=== PATIENT | female | born 1985 | race African-American/Black ===

== ENCOUNTER 2016-03-12 17:18 | Emergency (ER) | payer OTHER ==
--- NOTE | 2016-03-12 17:50 | ER Document Report ---
ED Cardiac - General Chief Complaint: Chest Tightness Stated Complaint: CHEST TIGHTNESS Notes: The patient is a 30-year-old female, past medical history anxiety, asthma, chronic back pain, presents with 3 days of feeling anxious, with some chest tightness and wheezing. She received a epidural spinal injection 3 days ago for her chronic back pain. After the injection she started feeling mildly nauseous and anxious. She took 0.5 mg of her Xanax that her psychiatrist recently started her on with mild relief of her symptoms. She is requesting additional doses of benzos. She has not tried her albuterol and her last asthma exacerbation was several months ago. She denies cough, fevers, leg weakness, leg numbness, midline back pain, vomiting, current chest pain, leg swelling, hemoptysis, OCP use, difficulty urinating or difficulty stooling. TRAVEL OUTSIDE OF THE [place] IN LAST 30 DAYS: No - Related Data Allergies/Adverse Reactions: amoxicillin [Amoxicillin] Allergy (Verified 12/02/14 10:29) Penicillins Allergy (Verified 12/02/14 10:29) Past Medical History - General Information source: Patient - Social History Smoking Status: Unknown if Ever Smoked Family History: Reviewed & Not Pertinent - Past Medical History Cardiac Medical History: Denies: Hx Coronary Artery Disease, Hx Heart Attack, Hx Hypertension Pulmonary Medical History: Reports: Hx Asthma, Hx Sleep Apnea Denies: Hx Bronchitis, Hx COPD, Hx Pneumonia Neurological Medical History: Denies: Hx Cerebrovascular Accident, Hx Seizures Endocrine Medical History: Denies: Hx Diabetes Mellitus Type 1, Hx Diabetes Mellitus Type 2 Renal/ Medical History: Reports: Hx Ovarian Cysts GI Medical History: Reports: Hx Gastroesophageal Reflux Disease Musculoskeltal Medical History: Denies Hx Arthritis Psychiatric Medical History: Reports: Hx Attention Deficit Hyperactivity Disorder, Hx Depression Past Surgical History: Reports: Hx Adenoidectomy, Hx Gynecologic Surgery - R ovarian cyst 2009, Hx Tonsillectomy - Immunizations Hx Diphtheria, Pertussis, Tetanus Vaccination: Yes - 06/2011 Review of Systems - Review of Systems Notes: REVIEW OF SYSTEMS: CONSTITUTIONAL: -fevers, -chills EENT: -eye pain, -difficulty swallowing, +nasal congestion CARDIOVASCULAR: +chest tightness, -syncope. RESPIRATORY: -cough, +SOB, +wheezingSOB GASTROINTESTINAL: -abdominal pain, - nausea, -vomiting, -diarrhea GENITOURINARY: -dysuria, -hematuria MUSCULOSKELETAL: -back pain, -neck pain SKIN: -rash or skin lesions. HEMATOLOGIC: -easy bruising or bleeding. LYMPHATIC: -swollen, enlarged glands. NEUROLOGICAL: -altered mental status or loss of consciousness, -headache, - neurologic symptoms PSYCHIATRIC: +anxiety, -depression. ALL OTHER SYSTEMS REVIEWED AND NEGATIVE. Physical Exam - Vital signs Vitals: Temp Pulse Resp BP Pulse Ox 98.0 F 107 H 20 147/83 H 97 03/12/16 17:33 03/12/16 17:33 03/12/16 17:33 03/12/16 17:33 03/12/16 17:33 - Notes Notes: PHYSICAL EXAMINATION: GENERAL: Well-appearing, well-nourished and in no acute distress. HEAD: Atraumatic, normocephalic. EYES: Pupils equal round and reactive to light, extraocular movements intact, sclera anicteric, conjunctiva are normal. ENT: nares patent, oropharynx clear without exudates. Moist mucous membranes. NECK: Normal range of motion, supple without lymphadenopathy LUNGS: No increased work of breathing. Mild end-expiratory wheezing. HEART: Regular rate and rhythm without murmurs ABDOMEN: Soft, nontender, normoactive bowel sounds. No guarding, no rebound. No masses appreciated. EXTREMITIES: Normal range of motion, no pitting or edema. No cyanosis. NEUROLOGICAL: Cranial nerves grossly intact. Normal speech, normal gait. Normal sensory, motor, and reflex exams. PSYCH: Anxious SKIN: Warm, Dry, normal turgor, no rashes or lesions noted. Course - Re-evaluation Re-evalutation: Will treat her mild asthma exacerbation with 3 DuoNeb and steroids. Patient has had multiple visits to the emergency room for anxiety. She has been tachycardic multiple times in the past and had a negative CTA for PE. PE unlikely at this time. No evidence of epidural abscess or infection after her injection 3 days ago. No neurologic symptoms and full strength in bilateral lower extremities. After DuoNebs and steroids, patient's chest tightness and wheezing have resolved. Repeat exam shows that wheezing has resolved and that her heart rate has decreased to 98. Instructed patient that she must follow-up with her psychiatrist for dose adjustments of her Xanax and that this would not be done in the emergency room. - Vital Signs Vital signs: Temp Pulse Resp BP Pulse Ox 98.0 F 107 H 24 H 147/83 H 97 03/12/16 17:33 03/12/16 17:33 03/12/16 17:51 03/12/16 17:33 03/12/16 17:33 - EKG Interpretation by Me EKG shows normal: Sinus rhythm, [place], Intervals, QRS Complexes, ST-T Waves Rate: Tachycardia - 109 Discharge - Discharge Clinical Impression: Asthma exacerbation, Anxiety Condition: Good Disposition: HOME, SELF-CARE Additional Instructions: ASTHMA: You have been diagnosed as having asthma. This is a condition where there is episodic tightness in the bronchial tubes. Allergies, infections, and polluted or cold air may be contributing factors. Emergency treatment of a severe asthma attack may include adrenaline shots , or bronchodilator aerosol. You may feel lightheaded, have a decreased exercise tolerance and a rapid pulse for an hour or two. Rest and get plenty of fluids. Home treatment of asthma requires bronchodilator drugs. These can be administered by injection, inhalation, or by mouth. Antibiotics and corticosteroids may be required for some patients. You should avoid chemical fumes, dusts, pollens, and exercising in very cold or dry air. If you smoke, stop!! If you develop a fever, increased wheezing, chest pain, or severe shortness of breath, you should contact the doctor immediately. STEROID MEDICATION: You have been given an injection of or oral medicine of the cortisone/ steroid class. This medication is used to control inflammation or allergy. Osvaldo t is usually only given for a short period of time, until the acute process subsides. There are usually no side effects from short-term use of cortisone-like medications. Some persons feel an increased sense of well-being and are not sleepy at bedtime. Long-term use of cortisone medications is best avoided, unless required for a severe condition. If your condition does not remit, or relapses after the course of corticosteroid medication, you should consult your physician. INHALED BRONCHODILATORS: You have received treatment(s) of and/or prescription for an inhaled bronchodilator -- a medication which stimulates the airways in the lung to dilate. This improves the flow of air in asthma, bronchitis, and emphysema. These medicines have some similarity to adrenaline, and can cause similar side effects: shakiness, racing heart, and a sense of nervousness. These side effects decrease with time. Contact your doctor if these side effects are severe. Do not over-use the medicine. Too-frequent use of the inhaler may make it ineffective. Call your doctor if the inhaler is not controlling your symptoms at the prescribed doses. SMOKING: If you smoke, you should stop smoking. The tar and chemicals in cigarette smoke are harmful. Smoking has been shown to cause: emphysema chronic bronchitis lung cancer mouth and throat cancer stomach and pancreas cancer premature aging defects In addition, smoking increases ear and lung infections in children of smokers. USE OF ACETAMINOPHEN: Acetaminophen may be taken for pain relief or fever control. It's much safer than aspirin, offering a wider range of "safe" dosages. It is safe during . Some brand names are Tylenol, Panadol, Datril, Anacin 3, Tempra, and Liquiprin. Acetaminophen can be repeated every four hours. The following are maximum recommended dosages: USE OF ACETAMINOPHEN (Tylenol): Acetaminophen may be taken for pain relief or fever control. It's much safer than aspirin, offering a wider range of "safe" dosages. It is safe during . Some brand names are Tylenol, Panadol, Datril, Anacin 3, Tempra, and Liquiprin. Acetaminophen can be repeated every four hours. The following are maximum recommended dosages: WEIGHT Dose Drops Elixir Chewable( 80mg) (LBS.) drprs=droppers tsp=teaspoon 6 40 mg 0.4 ml (1/2) 6-11 80 mg 0.8 ml (full) tsp 1 tab 12-16 120 mg 1 1/2 drprs 3/4 tsp 1 1/2 tabs 17-23 160 mg 2 drprs 1 tsp 2 tabs 24-30 240 mg 3 drprs 1 1/2 tsp 3 tabs 30-35 320 mg 2 tsp 4 tabs 36-41 360 mg 2 1/4 tsp 4 1/2 tabs 42-47 400 mg 2 1/2 tsp 5 tabs 48-53 480 mg 3 tsp 6 tabs 54-59 520 mg 3 1/4 tsp 6 1/2 tabs 60-64 560 mg 3 1/2 tsp 7 tabs 65-70 600 mg 3 3/4 tsp 7 1/2 tabs 71-76 640 mg 4 tsp 8 tabs 77-82 720 mg 4 1/2 tsp 9 tabs 83-88 800 mg 5 tsp 10 tabs >89 pounds or adults 650 mg to 900 mg Acetaminophen can be repeated every four hours. Maximum dose not to exceed 4000 mg a day. These maximum recommended dosages are slightly higher than the dosages written on the product container, but these dosages are very safe and below the toxic dosage for acetaminophen. FOLLOW-UP CARE: If you have been referred to a physician for follow-up care, call the physician s office for an appointment as you were instructed or within the next two days. If you experience worsening or a significant change in your symptoms, notify the physician immediately or return to the Emergency Department at any time for re-evaluation. Anxiety The physician feels that some of your health problems are being caused by anxiety. Anxiety affects your health in many ways. Anxiety alone can cause palpitations, sweats, chest pains, abdominal pains, shortness of breath, and headaches. It contributes to ulcer disease, high blood pressure, irritable bowel syndrome, and has been shown to cause flare-ups of many other diseases. Anxiety is not a simple disorder to treat. If the anxiety is due to recent life stresses, you may simply need time to "work through" the changes. If the anxiety is due to an underlying unhappiness with yourself or due to psychiatric disturbance, professional help will be needed. Your physician can refer you for further help if needed. Anti-anxiety medication is occasionally given if the stress is acute or if you are having trouble sleeping. Chronic or frequent use of these medications is not a good idea because the body becomes reliant on it, preventing you from dealing with life's normal stresses. Only your psychiatrist should be prescribing anti-anxiety medications. Prescriptions: Albuterol Sulfate [Proair HFA Inhalation Aerosol 8.5 gm MDI] 2 puff IH Q4H PRN # 1 mdi PRN Reason: Prednisone 50 mg PO DAILY #4 tablet Forms: Return to Work Referrals: FINA JOSEPH MD [Primary Care Provider] - Follow up as needed
[2016-03-12] MEDS ORDERED: PREDNISONE 20 MG TABLET PO ONE (18:02)
[2016-03-12] MEDS ORDERED: IPRATROPIUM/ALBUTEROL 0.5-2.5 MG/3 ML AMPUL NEB ONE (18:03)
[2016-03-12 19:29] VITALS: BP 142/78
--- NOTE | 2016-03-13 10:14 | EKG REPORT ---
SEVERITY:- OTHERWISE NORMAL ECG - SINUS TACHYCARDIA : Confirmed by: Aleah Arndt MD 13-Mar-2016 10:13:57
== END 2016-03-12 19:20 | disposition home or self-care (01) ==
LOC: ER 17:18
DX: J45.901 Unspecified asthma with (acute) exacerbation (principal); R07.9 Chest pain, unspecified; F41.9 Anxiety disorder, unspecified; Z88.0 Allergy status to penicillin
CPT/HCPCS: 93005; 94640; 99284; 93010; J7512; J7620

== ENCOUNTER 2016-03-19 12:22 | Emergency (ER) | payer SELFPAY ==
[2016-03-19] MEDS ORDERED: ASPIRIN 81 MG TABLET, CHEWABLE PO ONE (12:38)
--- NOTE | 2016-03-19 12:41 | ER Document Report ---
ED Medical Screen (RME) - General Chief Complaint: Chest Pain Stated Complaint: CHEST PAIN Time seen by provider: 12:37 Mode of Arrival: Ambulatory Information source: Patient Notes: 30-year-old nonsmoker female complaining of right-sided chest pain that started yesterday. She felt short of breath and had to be up all night because of the shortness [place] breath[place] [id number]. TRAVEL OUTSIDE OF THE [place] IN LAST 30 DAYS: No - Related Data Allergies/Adverse Reactions: amoxicillin [Amoxicillin] Allergy (Verified 03/19/16 12:35) Penicillins Allergy (Verified 03/19/16 12:35) Past Medical History - Past Medical History Cardiac Medical History: Denies: Hx Coronary Artery Disease, Hx Heart Attack, Hx Hypertension Pulmonary Medical History: Reports: Hx Asthma, Hx Sleep Apnea Denies: Hx Bronchitis, Hx COPD, Hx Pneumonia Neurological Medical History: Denies: Hx Cerebrovascular Accident, Hx Seizures Endocrine Medical History: Denies: Hx Diabetes Mellitus Type 1, Hx Diabetes Mellitus Type 2 Renal/ Medical History: Reports: Hx Ovarian Cysts GI Medical History: Reports: Hx Gastroesophageal Reflux Disease Musculoskeltal Medical History: Denies Hx Arthritis Psychiatric Medical History: Reports: Hx Attention Deficit Hyperactivity Disorder, Hx Depression Past Surgical History: Reports: Hx Adenoidectomy, Hx Gynecologic Surgery - R ovarian cyst 2009, Hx Tonsillectomy - Immunizations Hx Diphtheria, Pertussis, Tetanus Vaccination: Yes - 06/2011
[2016-03-19 13:36] LABS: ABSOLUTE BASOPHILS # (AUTO) 0.1 10^3/uL (0.0-0.2); ABSOLUTE EOSINOPHILS # (AUTO) 0.1 10^3/uL (0.0-0.6); ABSOLUTE LYMPHOCYTES (AUTO) 3.7 10^3/uL (0.5-4.7); ABSOLUTE MONOCYTES (AUTO) 0.7 10^3/uL (0.1-1.4); ABSOLUTE NEUT (AUTO) 9.6 10^3/uL (1.7-8.2); BASOPHILS % (AUTO) 0.6 % (0-2); EOSINOPHILS % (AUTO) 0.9 % (0-6); HEMATOCRIT 36.4 % (36.0-47.0); HEMOGLOBIN 11.5 g/dL (12.0-15.5); HGB HCT DIFFERENCE -1.9; LYMPHOCYTES % (AUTO) 26.1 % (13-45); MEAN CORPUSCULAR HEMOGLOBIN 28.8 pg (27.0-33.4); MEAN CORPUSCULAR HGB CONC 31.5 g/dL (32.0-36.0); MEAN CORPUSCULAR VOLUME 92 fl (80-97); RED BLOOD COUNT 3.98 10^6/uL (3.72-5.28); RED CELL DISTRIBUTION WIDTH 15.4 % (11.5-14.0); SEGMENTED NEUTROPHILS % (AUTO) 67.4 % (42-78); WHITE BLOOD COUNT 14.3 10^3/uL (4.0-10.5)
[2016-03-19 13:46] LABS: ALANINE AMINOTRANSFERASE 35 U/L (9-52); ALBUMIN 3.5 g/dL (3.5-5.0); ALKALINE PHOSPHATASE 147 U/L (38-126); ANION GAP 14 (5-19); ASPARTATE AMINO TRANSFERASE 26 U/L (14-36); BILIRUBIN,TOTAL 0.5 mg/dL (0.2-1.3); BLOOD UREA NITROGEN 15 mg/dL (7-20); CALCIUM 9.6 mg/dL (8.4-10.2); CARBON DIOXIDE 28 mmol/L (22-30); CHLORIDE 99 mmol/L (98-107); CREATINE KINASE 42 U/L (30-135); CREATININE RESULT 0.86 mg/dL (0.52-1.25); GLUCOSE 99 mg/dL (75-110); POTASSIUM 3.9 mmol/L (3.6-5.0); TOTAL PROTEIN 7.6 g/dL (6.3-8.2)
[2016-03-19 13:56] LABS: CREATINE KINASE MB 0.26 ng/mL (<4.55)
[2016-03-19 14:00] LABS: TROPONIN I < 0.012 ng/mL
--- NOTE | 2016-03-19 16:10 | ER Document Report ---
ED General - General Chief Complaint: Chest Pain Stated Complaint: CHEST PAIN Mode of Arrival: Ambulatory TRAVEL OUTSIDE OF THE [place] IN LAST 30 DAYS: No - HPI Patient complains to provider of: chest pain shortness of breath Notes: Patient with a recent evaluation for chest pain shortness breath. Patient coming in right upper chest wall pain and shortness of breath. Patient has a history of asthma recently finished a course of steroids. Patient denies any recent travel denies any nausea vomiting fevers or chills. Denies any productive cough. Patient states she has been compliant with her medication has been taking her inhaler. - Related Data Allergies/Adverse Reactions: amoxicillin [Amoxicillin] Allergy (Verified 03/19/16 12:35) Penicillins Allergy (Verified 03/19/16 12:35) Past Medical History - General Information source: Patient - Social History Smoking Status: Never Smoker Chew tobacco use (# tins/day): No Frequency of alcohol use: None Drug Abuse: None Family History: Reviewed & Not Pertinent Patient has suicidal ideation: No Patient has homicidal ideation: No - Past Medical History Cardiac Medical History: Denies: Hx Coronary Artery Disease, Hx Heart Attack, Hx Hypertension Pulmonary Medical History: Reports: Hx Asthma, Hx Sleep Apnea Denies: Hx Bronchitis, Hx COPD, Hx Pneumonia Neurological Medical History: Denies: Hx Cerebrovascular Accident, Hx Seizures Endocrine Medical History: Denies: Hx Diabetes Mellitus Type 1, Hx Diabetes Mellitus Type 2 Renal/ Medical History: Reports: Hx Ovarian Cysts. Denies: Hx Peritoneal Dialysis GI Medical History: Reports: Hx Gastroesophageal Reflux Disease Musculoskeltal Medical History: Denies Hx Arthritis Psychiatric Medical History: Reports: Hx Attention Deficit Hyperactivity Disorder, Hx Depression Past Surgical History: Reports: Hx Adenoidectomy, Hx Gynecologic Surgery - R ovarian cyst 2009, Hx Tonsillectomy - Immunizations Hx Diphtheria, Pertussis, Tetanus Vaccination: Yes - 06/2011 Review of Systems - Review of Systems Constitutional: No symptoms reported EENT: No symptoms reported Cardiovascular: Chest pain - Right chest wall upper Respiratory: Short of breath Gastrointestinal: No symptoms reported Genitourinary: No symptoms reported Female Genitourinary: No symptoms reported Musculoskeletal: No symptoms reported Skin: No symptoms reported Hematologic/Lymphatic: No symptoms reported Neurological/Psychological: No symptoms reported Physical Exam - Vital signs Vitals: Pulse Resp BP Pulse Ox 106 H 24 H 132/79 H 99 03/19/16 12:36 03/19/16 12:36 03/19/16 12:36 03/19/16 12:36 Interpretation: Normal - General General appearance: Appears well, Alert - HEENT Head: Normocephalic, Atraumatic Eyes: Normal Pupils: PERRL - Respiratory Respiratory status: No respiratory distress Chest status: Nontender Breath sounds: Normal Chest palpation: Normal - Cardiovascular Rhythm: Regular Heart sounds: Normal auscultation Murmur: No - Abdominal Inspection: Normal Distension: No distension Bowel sounds: Normal Tenderness: Nontender Organomegaly: No organomegaly - Back Back: Normal, Nontender - Extremities General upper extremity: Normal inspection, Nontender, Normal color, Normal ROM , Normal temperature General lower extremity: Normal inspection, Nontender, Normal color, Normal ROM , Normal temperature, Normal weight bearing. No: Aubree's sign - Neurological Neuro grossly intact: Yes Cognition: Normal Orientation: AAOx4 [place] Coma Scale Eye Opening: Spontaneous [place] Coma Scale Verbal: Oriented [place] Coma Scale Motor: Obeys Commands [place] Coma Scale Total: 15 Speech: Normal Motor strength normal: LUE, RUE, LLE, RLE Sensory: Normal - Psychological Associated symptoms: Normal affect, Normal mood - Skin Skin Temperature: Warm Skin Moisture: Dry Skin Color: Normal Course - Re-evaluation Re-evalutation: 03/19/16 22:30 Chest x-ray d-dimer and lab work EKG showed no critical etiology. Patient will be discharged homeThe patient has atypical chest pain as the patient's chest pain is not suggestive of pulmonary embolus, cardiac ischemia, aortic dissection , or other serious etiology. Given the extremely low risk of these diagnoses further testing and evaluation for these possibilities does not appear to be indicated at this time. The patient has been instructed to return if the symptoms worsen or change in any way. - Vital Signs Vital signs: Temp Pulse Resp BP Pulse Ox 98.4 F 106 H 20 113/59 L 99 03/19/16 16:17 03/19/16 12:36 03/19/16 16:00 03/19/16 16:00 03/19/16 16:00 - Laboratory Result Diagrams: 03/19/16 13:09 03/19/16 13:09 Laboratory results interpreted by me: 03/19/16 03/19/16 13:09 13:09 WBC 14.3 H Hgb 11.5 L MCHC 31.5 L RDW 15.4 H Absolute Neutrophils 9.6 H Alkaline Phosphatase 147 H Discharge - Discharge Clinical Impression: Chest wall pain Dyspnea Qualifiers: Dyspnea type: unspecified Qualified Code(s): R06.00 - Dyspnea, unspecified Condition: Good Disposition: HOME, SELF-CARE Instructions: Asthma ([facility]), Dyspnea, Nonspecific ([facility]), Chest Wall Pain ([facility]) Additional Instructions: Your evaluation today shows no signs of any critical etiology. No signs of cardiac damage no signs of blood clots within your lungs. Chest x-ray shows no signs of infection. Possible mild asthma exacerbation. Please use your inhaler at home 2 puffs every 4 hours for the next 5 days. I would also recommend drinking plenty of water to stay hydrated. He may also use Gatorade. Follow-up with your primary care physician. Prescriptions: Albuterol Sulfate [Proair HFA] 1 - 2 puff IH Q4 PRN #1 inhaler PRN Reason: Referrals: FINA JOSEPH MD [Primary Care Provider] - Follow up in 3-5 days
[2016-03-19 16:12] VITALS: BP 113/59
--- NOTE | 2016-03-19 16:40 | EKG REPORT ---
SEVERITY:- NORMAL ECG - SINUS RHYTHM : Confirmed by: Luis Eduardo Medrano MD 19-Mar-2016 16:39:02
== END 2016-03-19 16:17 | disposition home or self-care (01) ==
LOC: ER 12:22
DX: R07.89 Other chest pain (principal); R06.00 Dyspnea, unspecified; R06.02 Shortness of breath
CPT/HCPCS: 36415; 71010; 80053; 82550; 82553; 84484; 84703; 85025; 85379; 93005; 93010; 99285

== ENCOUNTER 2016-03-20 18:56 | Emergency (ER) | payer SELFPAY ==
--- NOTE | 2016-03-20 19:51 | ER Document Report ---
ED Medical Screen (RME) - General Chief Complaint: Anxiety Stated Complaint: PSYCH PROBLEM Mode of Arrival: Ambulatory Information source: Patient Notes: 30 y/o F presents to ED c/o anxiety, racing thoughts, and palpitations. Reports hx of depression and anxiety and recently began taking Cymbalta again. States had thoughts of "killing" this morning. Denies SI. Calm and cooperative in RME. I have greeted and performed a rapid initial assessment of this patient. A comprehensive ED assessment and evaluation of the patient, analysis of test results and completion of the medical decision making process will be conducted by additional ED providers. TRAVEL OUTSIDE OF THE [place] IN LAST 30 DAYS: No - Related Data Allergies/Adverse Reactions: amoxicillin [Amoxicillin] Allergy (Verified 03/19/16 12:35) Penicillins Allergy (Verified 03/19/16 12:35) Past Medical History - Past Medical History Cardiac Medical History: Denies: Hx Coronary Artery Disease, Hx Heart Attack, Hx Hypertension Pulmonary Medical History: Reports: Hx Asthma, Hx Sleep Apnea Denies: Hx Bronchitis, Hx COPD, Hx Pneumonia Neurological Medical History: Denies: Hx Cerebrovascular Accident, Hx Seizures Endocrine Medical History: Denies: Hx Diabetes Mellitus Type 1, Hx Diabetes Mellitus Type 2 Renal/ Medical History: Reports: Hx Ovarian Cysts. Denies: Hx Peritoneal Dialysis GI Medical History: Reports: Hx Gastroesophageal Reflux Disease Musculoskeltal Medical History: Denies Hx Arthritis Psychiatric Medical History: Reports: Hx Attention Deficit Hyperactivity Disorder, Hx Depression Past Surgical History: Reports: Hx Adenoidectomy, Hx Gynecologic Surgery - R ovarian cyst 2009, Hx Tonsillectomy - Immunizations Hx Diphtheria, Pertussis, Tetanus Vaccination: Yes - 06/2011 Physical Exam - General General appearance: Appears well, Alert In distress: None Doctor's Discharge - Discharge Instructions: Anxiety ([facility])
[2016-03-20 20:09] LABS: ABSOLUTE BASOPHILS # (AUTO) 0.1 10^3/uL (0.0-0.2); ABSOLUTE EOSINOPHILS # (AUTO) 0.1 10^3/uL (0.0-0.6); ABSOLUTE LYMPHOCYTES (AUTO) 3.4 10^3/uL (0.5-4.7); ABSOLUTE MONOCYTES (AUTO) 0.7 10^3/uL (0.1-1.4); ABSOLUTE NEUT (AUTO) 12.5 10^3/uL (1.7-8.2); BASOPHILS % (AUTO) 0.8 % (0-2); EOSINOPHILS % (AUTO) 0.7 % (0-6); HEMATOCRIT 37.8 % (36.0-47.0); HEMOGLOBIN 12.1 g/dL (12.0-15.5); HGB HCT DIFFERENCE -1.5; LYMPHOCYTES % (AUTO) 20.4 % (13-45); MEAN CORPUSCULAR HEMOGLOBIN 28.7 pg (27.0-33.4); MEAN CORPUSCULAR VOLUME 90 fl (80-97); MONOCYTES % (AUTO) 4.1 % (3-13); RED BLOOD COUNT 4.21 10^6/uL (3.72-5.28); RED CELL DISTRIBUTION WIDTH 15.3 % (11.5-14.0); WHITE BLOOD COUNT 16.8 10^3/uL (4.0-10.5)
[2016-03-20 20:22] LABS: ALANINE AMINOTRANSFERASE 41 U/L (9-52); ALBUMIN 4.2 g/dL (3.5-5.0); ALKALINE PHOSPHATASE 157 U/L (38-126); ANION GAP 14 (5-19); ASPARTATE AMINO TRANSFERASE 25 U/L (14-36); BILIRUBIN,TOTAL 0.6 mg/dL (0.2-1.3); BLOOD UREA NITROGEN 11 mg/dL (7-20); CALCIUM 9.8 mg/dL (8.4-10.2); CARBON DIOXIDE 26 mmol/L (22-30); CHLORIDE 101 mmol/L (98-107); GLUCOSE 115 mg/dL (75-110); POTASSIUM 4.2 mmol/L (3.6-5.0); SODIUM 141.3 mmol/L (137-145); TOTAL PROTEIN 8.2 g/dL (6.3-8.2)
[2016-03-20 20:24] LABS: ALCOHOL < 10 mg/dL (NONE DETECTED)
[2016-03-20] MEDS ORDERED: NORMAL SALINE 1000 ML 1,000 ML IV ONE (21:00)
[2016-03-20] MEDS ORDERED: ONDANSETRON HCL INJ/PF 4 MG/2 ML SDV IV ONE (21:00)
[2016-03-20] MEDS ORDERED: PROCHLORPERAZINE EDISYLATE INJ 10 MG/2 ML VIAL IV ONE (21:00)
[2016-03-20] MEDS ORDERED: DIPHENHYDRAMINE HCL 50 MG/ML VIAL IV ONE (21:00)
[2016-03-20 21:20] LABS: APPEARANCE,URINE SLIGHTLY-CLOUDY; BILIRUBIN,URINE NEGATIVE (NEGATIVE); GLUCOSE, URINE NEGATIVE (NEGATIVE); KETONES,URINE NEGATIVE (NEGATIVE); LEUKOCYTE ESTERASE,URINE TRACE (NEGATIVE); NITRITE,URINE NEGATIVE (NEGATIVE); PROTEIN,URINE 30 mg/dL (NEGATIVE); URINE SPECIFIC GRAVITY 1.023
[2016-03-20 21:32] LABS: URINE BARBITURATES SCREEN UNCONFIRMED POSITIVE; URINE METHADONE SCREEN NEGATIVE; URINE PHENCYCLIDINE SCREEN NEGATIVE
--- NOTE | 2016-03-20 22:20 | ER Document Report ---
ED Psych Disorder / Suicide - General Chief Complaint: Psych Problem Stated Complaint: PSYCH PROBLEM Mode of Arrival: Ambulatory Notes: Patient is a 30-year-old female who comes in stating that this morning she woke up with "kill" on her mind. Patient states that she did not feel like hurting herself or anyone else but that is just Going to her head. Patient states that she has not been on Cymbalta for a few months and started taking it again last night. Patient took another dose this morning and symptoms went away. Patient has a history of anxiety and was getting Xanax from her pain management doctor. She ran out recently. Patient states that she is still anxious on and off. Patient is also had a headache on and off. Patient denies any fever, nausea vomiting, photophobia, again, patient does not feel like hurting herself or anyone else at this time. Denies any hallucinations. Patient does not have a counselor currently but plans to go to [facility] in the morning. TRAVEL OUTSIDE OF THE [place] IN LAST 30 DAYS: No - HPI Patient complains to provider of: Other - racing thoughts Onset: Other Onset was: Gradual Quality of pain: Dull - headache - Related Data Allergies/Adverse Reactions: amoxicillin [Amoxicillin] Allergy (Verified 03/19/16 12:35) Penicillins Allergy (Verified 03/19/16 12:35) Past Medical History - General Information source: Patient - Social History Smoking Status: Never Smoker Family History: Reviewed & Not Pertinent Patient has suicidal ideation: No Patient has homicidal ideation: Yes - Racing thoughts - Past Medical History Cardiac Medical History: Denies: Hx Coronary Artery Disease, Hx Heart Attack, Hx Hypertension Pulmonary Medical History: Reports: Hx Asthma, Hx Sleep Apnea Denies: Hx Bronchitis, Hx COPD, Hx Pneumonia Neurological Medical History: Denies: Hx Cerebrovascular Accident, Hx Seizures Endocrine Medical History: Denies: Hx Diabetes Mellitus Type 1, Hx Diabetes Mellitus Type 2 Renal/ Medical History: Reports: Hx Ovarian Cysts. Denies: Hx Peritoneal Dialysis GI Medical History: Reports: Hx Gastroesophageal Reflux Disease Musculoskeltal Medical History: Denies Hx Arthritis Psychiatric Medical History: Reports: Hx Attention Deficit Hyperactivity Disorder, Hx Depression Past Surgical History: Reports: Hx Adenoidectomy, Hx Gynecologic Surgery - R ovarian cyst 2009, Hx Tonsillectomy - Immunizations Hx Diphtheria, Pertussis, Tetanus Vaccination: Yes - 06/2011 Review of Systems - Review of Systems Constitutional: No symptoms reported EENT: No symptoms reported Cardiovascular: No symptoms reported Respiratory: No symptoms reported Gastrointestinal: No symptoms reported Genitourinary: No symptoms reported Female Genitourinary: No symptoms reported Musculoskeletal: No symptoms reported Skin: No symptoms reported Hematologic/Lymphatic: No symptoms reported Neurological/Psychological: See HPI Physical Exam - Vital signs Interpretation: Normal - General General appearance: Appears well, Alert - HEENT Head: Normocephalic, Atraumatic Eyes: Normal Pupils: PERRL - Respiratory Respiratory status: No respiratory distress Chest status: Nontender Breath sounds: Normal Chest palpation: Normal - Cardiovascular Rhythm: Regular Heart sounds: Normal auscultation Murmur: No - Abdominal Inspection: Normal Distension: No distension Bowel sounds: Normal Tenderness: Nontender Organomegaly: No organomegaly - Back Back: Normal, Nontender - Extremities General upper extremity: Normal inspection, Nontender, Normal color, Normal ROM , Normal temperature General lower extremity: Normal inspection, Nontender, Normal color, Normal ROM , Normal temperature, Normal weight bearing. No: Aubree's sign - Neurological Neuro grossly intact: Yes Cognition: Normal Orientation: AAOx4 Marci Coma Scale Eye Opening: Spontaneous Stafford Coma Scale Verbal: Oriented Stafford Coma Scale Motor: Obeys Commands Stafford Coma Scale Total: 15 Speech: Normal Motor strength normal: LUE, RUE, LLE, RLE Sensory: Normal - Psychological Associated symptoms: Normal affect, Normal mood - Skin Skin Temperature: Warm Skin Moisture: Dry Skin Color: Normal Course - Re-evaluation Re-evalutation: 03/20/16 Patient is a 30-year-old female who had recent thoughts this morning. She does not have any now. She is not suicidal or homicidal. Headache is better after medications. Patient will be discharged home is to follow-up with [facility] in the morning as scheduled. Mother will contract for safety. Return if any worsening or concerning symptoms. - Laboratory Result Diagrams: 03/20/16 19:58 03/20/16 19:58 Laboratory results interpreted by me: 03/20/16 03/20/16 03/20/16 19:58 19:58 19:58 WBC 16.8 H RDW 15.3 H Absolute Neutrophils 12.5 H Glucose 115 H Alkaline Phosphatase 157 H Urine Protein 30 H Urine Blood LARGE H Urine Urobilinogen 4.0 H Ur Leukocyte Esterase TRACE H Urine Ascorbic Acid 40 H Salicylates < 1.0 L Acetaminophen < 10 L Discharge - Discharge Clinical Impression: Headache, Racing thoughts Condition: Stable Disposition: HOME, SELF-CARE Instructions: Anxiety (OM), Headache (OM) Referrals: FINA JOSEPH MD [Primary Care Provider] - Follow up as needed [facility] [Provider Group] - Follow up as needed [facility] [Provider Group] - Follow up as needed [facility] [Provider Group] - Follow up as needed
[2016-03-20 23:49] VITALS: BP 134/78
--- NOTE | 2016-03-21 15:50 | EKG REPORT ---
SEVERITY:- OTHERWISE NORMAL ECG - SINUS TACHYCARDIA : Confirmed by: Luzmaria Lindsey 21-Mar-2016 15:49:24
== END 2016-03-20 23:44 | disposition home or self-care (01) ==
LOC: ER 18:56
DX: R51 Headache (principal); F41.9 Anxiety disorder, unspecified; F32.9 Major depressive disorder, single episode, unspecified; J45.909 Unspecified asthma, uncomplicated; Z88.0 Allergy status to penicillin
CPT/HCPCS: 93005; 99284; 96361; 96374; 96375; 36415; 80307 ×4; 84443; 84703; 85025; 80053; 81001; 93010; J1200; J0780; J2405; J7030

== ENCOUNTER 2016-04-07 11:24 | Emergency (ER) | payer SELFPAY ==
--- NOTE | 2016-04-07 11:44 | ER Document Report ---
ED Medical Screen (RME) - General Stated Complaint: VAGINAL BLEEDING Notes: patient is a 30 year old female c/o vaginal bleeding for about 6 weeks. states she has been passing clots but now passing more. patient is not sexually active. I have greeted and performed a rapid initial assessment of this patient. A comprehensive ED assessment and evaluation of the patient, analysis of test results and completion of the medical decision making process will be conducted by additional ED providers. TRAVEL OUTSIDE OF THE [place] IN LAST 30 DAYS: No - Related Data Allergies/Adverse Reactions: amoxicillin [Amoxicillin] Allergy (Verified 03/19/16 12:35) Penicillins Allergy (Verified 03/19/16 12:35) Past Medical History - Past Medical History Cardiac Medical History: Denies: Hx Coronary Artery Disease, Hx Heart Attack, Hx Hypertension Pulmonary Medical History: Reports: Hx Asthma, Hx Sleep Apnea Denies: Hx Bronchitis, Hx COPD, Hx Pneumonia Neurological Medical History: Denies: Hx Cerebrovascular Accident, Hx Seizures Endocrine Medical History: Denies: Hx Diabetes Mellitus Type 1, Hx Diabetes Mellitus Type 2 Renal/ Medical History: Reports: Hx Ovarian Cysts. Denies: Hx Peritoneal Dialysis GI Medical History: Reports: Hx Gastroesophageal Reflux Disease Musculoskeltal Medical History: Denies Hx Arthritis Psychiatric Medical History: Reports: Hx Attention Deficit Hyperactivity Disorder, Hx Depression Past Surgical History: Reports: Hx Adenoidectomy, Hx Gynecologic Surgery - R ovarian cyst 2009, Hx Tonsillectomy - Immunizations Hx Diphtheria, Pertussis, Tetanus Vaccination: Yes - 06/2011
[2016-04-07 12:15] LABS: ABSOLUTE BASOPHILS # (AUTO) 0.1 10^3/uL (0.0-0.2); ABSOLUTE EOSINOPHILS # (AUTO) 0.2 10^3/uL (0.0-0.6); ABSOLUTE LYMPHOCYTES (AUTO) 2.7 10^3/uL (0.5-4.7); ABSOLUTE MONOCYTES (AUTO) 0.5 10^3/uL (0.1-1.4); BASOPHILS % (AUTO) 0.7 % (0-2); EOSINOPHILS % (AUTO) 1.1 % (0-6); HEMATOCRIT 32.4 % (36.0-47.0); HEMOGLOBIN 10.4 g/dL (12.0-15.5); HGB HCT DIFFERENCE -1.2; LYMPHOCYTES % (AUTO) 18.7 % (13-45); MEAN CORPUSCULAR HEMOGLOBIN 29.1 pg (27.0-33.4); MEAN CORPUSCULAR HGB CONC 32.1 g/dL (32.0-36.0); MEAN CORPUSCULAR VOLUME 91 fl (80-97); MONOCYTES % (AUTO) 3.5 % (3-13); RED BLOOD COUNT 3.58 10^6/uL (3.72-5.28); RED CELL DISTRIBUTION WIDTH 14.9 % (11.5-14.0); WHITE BLOOD COUNT 14.5 10^3/uL (4.0-10.5)
[2016-04-07 12:21] LABS: APPEARANCE,URINE SLIGHTLY-CLOUDY; BILIRUBIN,URINE NEGATIVE (NEGATIVE); GLUCOSE, URINE NEGATIVE (NEGATIVE); KETONES,URINE NEGATIVE (NEGATIVE); LEUKOCYTE ESTERASE,URINE TRACE (NEGATIVE); NITRITE,URINE NEGATIVE (NEGATIVE); PROTEIN,URINE 30 mg/dL (NEGATIVE); URINE SPECIFIC GRAVITY 1.025; UROBILINOGEN,URINE NEGATIVE mg/dL (<2.0)
[2016-04-07 12:30] LABS: ALANINE AMINOTRANSFERASE 35 U/L (9-52); ALBUMIN 3.9 g/dL (3.5-5.0); ALKALINE PHOSPHATASE 121 U/L (38-126); ANION GAP 11 (5-19); ASPARTATE AMINO TRANSFERASE 18 U/L (14-36); BILIRUBIN,TOTAL 0.5 mg/dL (0.2-1.3); BLOOD UREA NITROGEN 11 mg/dL (7-20); CALCIUM 9.1 mg/dL (8.4-10.2); CARBON DIOXIDE 27 mmol/L (22-30); CHLORIDE 102 mmol/L (98-107); CREATININE RESULT 0.91 mg/dL (0.52-1.25); GLUCOSE 119 mg/dL (75-110); POTASSIUM 4.1 mmol/L (3.6-5.0); SODIUM 140.2 mmol/L (137-145); TOTAL PROTEIN 7.4 g/dL (6.3-8.2)
--- NOTE | 2016-04-07 13:21 | ER Document Report ---
ED GI/ - General Chief Complaint: Vaginal Bleeding Stated Complaint: VAGINAL BLEEDING Notes: Patient says that she's been having vaginal bleeding for the past 6 weeks. It' s getting worse and she's been passing clots recently. She is having generalized pelvic pain. Patient says that she has a history of fibroid tumors of her uterus and had surgery in [place] in 2009. She had recurrent bleeding and symptoms in 2011 but did not have another procedure at that time. She's not had these bleeding problems and pain since that time. Patient says she has nausea, vomiting, and diarrhea. Denies having fever, but does have sweats. On no control. History of IBS, depression, anxiety, chronic back pain. TRAVEL OUTSIDE OF THE [place] IN LAST 30 DAYS: No - Related Data Allergies/Adverse Reactions: amoxicillin [Amoxicillin] Allergy (Verified 04/07/16 11:43) Penicillins Allergy (Verified 04/07/16 11:43) Past Medical History - Social History Smoking Status: Never Smoker Chew tobacco use (# tins/day): No Frequency of alcohol use: None Drug Abuse: None Family History: Reviewed & Not Pertinent Patient has suicidal ideation: No Patient has homicidal ideation: No Pulmonary Medical History: Reports: Hx Asthma, Hx Sleep Apnea Endocrine Medical History: Denies: Hx Diabetes Mellitus Type 1, Hx Diabetes Mellitus Type 2 Renal/ Medical History: Reports: Hx Ovarian Cysts, Other - History of uterine fibroids GI Medical History: Reports: Hx Gastroesophageal Reflux Disease Psychiatric Medical History: Reports: Hx Anxiety, Hx Attention Deficit Hyperactivity Disorder, Hx Depression Past Surgical History: Reports: Hx Adenoidectomy, Hx Gynecologic Surgery - R ovarian cyst 2010 Uterine fibroid removal 2009 in [place]., Hx Tonsillectomy - Immunizations Hx Diphtheria, Pertussis, Tetanus Vaccination: Yes - 06/2011 Review of Systems - Review of Systems Notes: REVIEW OF SYSTEMS: CONSTITUTIONAL : Denies fever. EENT: Denies eye, ear, nose or mouth or throat pain or other symptoms. CARDIOVASCULAR: Denies chest pain. RESPIRATORY: Denies cough, chest congestion, or shortness of breath. GASTROINTESTINAL: Patient says she's having nausea, vomiting, diarrhea. Hx IBS. GENITOURINARY: Denies difficulty or painful urinating, urinary frequency, blood in urine. See history of present illness regarding vaginal bleeding. MUSCULOSKELETAL: Denies back or neck pain. Denies joint pain or swelling. SKIN: Denies rash or skin lesions. NEUROLOGICAL: Denies LOC or altered mental status. Denies headache. Denies sensory loss or motor deficits. PSYCHIATRIC: Has anxiety and stress and depression. ALL OTHER SYSTEMS REVIEWED AND NEGATIVE. Physical Exam - Vital signs Vitals: Temp Pulse Resp BP Pulse Ox 99.0 F 110 H 24 H 130/73 H 100 04/07/16 11:43 04/07/16 11:43 04/07/16 11:43 04/07/16 11:43 04/07/16 11:43 Interpretation: Normal - Notes Notes: PHYSICAL EXAMINATION: GENERAL: Well-appearing, in no acute distress. Weight is 144 kg. HEAD: Atraumatic, normocephalic. ENT: oropharynx clear without exudates. Moist mucous membranes. NECK: Normal range of motion, supple. LUNGS: Breath sounds clear and equal bilaterally. HEART: Regular rate and rhythm without murmurs. ABDOMEN: Soft, nontender. No guarding or rebound. BACK: No tenderness throughout entire back. EXTREMITIES: Normal range of motion without pain. PSYCH: Normal mood, normal affect. SKIN: Warm, dry, no rashes. - Genitourinary External exam: Normal Speculum exam: Cervix closed Vaginal bleeding: Mild Bimanuel exam: No: Cervical motion tender, Adnexal mass, Adnexal tenderness, Uterus enlarged Course - Vital Signs Vital signs: Temp Pulse Resp BP Pulse Ox 99.0 F 110 H 24 H 130/73 H 100 04/07/16 11:43 04/07/16 11:43 04/07/16 11:43 04/07/16 11:43 04/07/16 11:43 - Laboratory Result Diagrams: 04/07/16 11:55 04/07/16 11:55 Laboratory results interpreted by me: 04/07/16 04/07/16 04/07/16 11:55 11:55 11:55 WBC 14.5 H RBC 3.58 L Hgb 10.4 L Hct 32.4 L RDW 14.9 H Absolute Neutrophils 11.0 H Glucose 119 H Urine Protein 30 H Urine Blood LARGE H Ur Leukocyte Esterase TRACE H Urine Ascorbic Acid 40 H - Diagnostic Test Radiology reviewed: Image reviewed, Reports reviewed - Ultrasound shows a likely fibroid in the uterine fundus. Discharge - Discharge Clinical Impression: Vaginal bleeding Uterine fibroid Qualifiers: Uterine leiomyoma location: unspecified location Qualified Code(s): D25.9 - Leiomyoma of uterus, unspecified Disposition: ADMITTED INPATIENT Additional Instructions: VAGINAL BLEEDING: You are having an episode of abnormal bleeding. Causes of abnormal vaginal bleeding can include miscarriage or tubal , tumors such as cancer or benign fibroids, medication effects, or hormone imbalance. Testing can eliminate unsuspected , tumors, or infection as a cause. "Dysfunctional uterine bleeding" is due to hormone imbalance, and is especially common at times when the normal cycle is disturbed -- whether by recent , use of control pills or hormones, or impending menopause. If the bleeding is innocent, most commonly a short course of hormones is given to restore the uterus to normal. Sometimes, the normal menstrual cycle corrects itself naturally. Sometimes , brief hormone therapy, or even a D&C is required. Your physician will advise you. Treatment for anemia may be required if bleeding is severe. You should rest and avoid intercourse until the bleeding is controlled. Call the doctor or return for re-examination if you feel faint, have increasing pain, or have a major increase in the amount of bleeding. FIBROIDS: Fibroids are benign growths or tumors in the uterus. They can cause enlargement of the uterus, irregular bleeding, severe bleeding with periods, and abdominal pain. Anemia may result if periods are heavy. Fibroids tend to grow until menopause, then slowly shrink. If fibroids cause severe symptoms, they can be treated surgically. Call or return if vaginal bleeding or pain becomes severe. PROVERA: Provera (medroxyprogesterone) is usually used to stop excessive uterine bleeding or to regulate the periods. Provera is a form of progesterone, the hormone that stimulates the uterus lining to mature during the second half of your cycle. High doses of Provera can usually stop uterine bleeding. It's most useful for the abnormal bleeding that occurs when periods are irregular, such as around menopause. Provera usually isn't helpful for bleeding that occurs after Depo-Provera or Norplant. There is often another heavy "period" when you finish the Provera. Afterwards, the periods usually return to normal within a month or two. Contact your doctor if bleeding becomes more severe, or if you develop abdominal pain, lightheadedness, fever, or other new symptoms. Ibuprofen Ibuprofen is an excellent, safe drug for pain control. In addition, it has potent antiinflammatory effects which are beneficial, especially in the treatment of injuries, arthritis, or tendonitis. It's best to take ibuprofen with food. Persons with ulcer disease or allergy to aspirin should notify their physician of this before taking ibuprofen. Take the medication exactly as prescribed. Don't take additional doses unless instructed to do so by your doctor. If you develop wheezing, shortness of breath, hives, faintness, stomach pain, vomiting, or dark black stools, return for re-evaluation at once. ORAL NARCOTIC MEDICATION: You have been given a prescription for pain control. This medication is a narcotic. It's best taken with food, as nausea can result if taken on an empty stomach. Don't operate machinery or drive within six hours of taking this medication. Do not combine this medicine with alcohol, or with any medication which can cause sedation (such as cold tablets or sleeping pills) unless you get permission from the physician. Narcotics tend to cause constipation. If possible, drink plenty of fluids and eat a diet high in fiber and fruits. FOLLOW-UP CARE: If you have been referred to a physician for follow-up care, call the physician s office for an appointment as you were instructed or within the next two days. If you experience worsening or a significant change in your symptoms (very heavy bleeding with large clots of blood, passage of tissue, more severe abdominal / pelvic pain or cramping, feeling faint or severe weakness, fever, etc.), notify the physician immediately or return to the Emergency Department at any time for re-evaluation. OBSTETRIC-GYNECOLOGIC (OB-MIXING TECHNICIAN) PHYSICIANS IN [place]: [facility] [address] [place] [address] [phone] You should follow-up with the [facility] regarding plan to address the uterine fibroid you have any your uterus. Prescriptions: Medroxyprogesterone Acet [Provera 10 Mg Tablet] 10 mg PO DAILY #10 tablet Oxycodone HCl/Acetaminophen [Percocet 5-325 mg Tablet] 1 - 2 tab PO Q4H PRN #15 tablet PRN Reason:
[2016-04-07 15:56] LABS: CHLAM PCR NOT DETECTED (NOT DETECT)
[2016-04-07] MEDS ORDERED: PROMETHAZINE HCL 25 MG TABLET PO ONE (16:18)
[2016-04-07] MEDS ORDERED: OXYCODONE-ACETAMINOPHEN 5-325 MG TABLET PO ONE (16:18)
[2016-04-07 16:32] VITALS: BP 129/82
== END 2016-04-07 16:31 | disposition other institution (70) ==
LOC: ER 11:24
DX: D25.9 Leiomyoma of uterus, unspecified (principal); N93.9 Abnormal uterine and vaginal bleeding, unspecified; R11.2 Nausea with vomiting, unspecified; R19.7 Diarrhea, unspecified
CPT/HCPCS: 36415; 76830; 80053; 81001; 84702; 85025; 87210; 87491; 87591; 99284

== ENCOUNTER 2016-05-18 19:21 | Emergency (ER) | payer SELFPAY ==
--- NOTE | 2016-05-18 19:49 | ER Document Report ---
ED Medical Screen (RME) - General Stated Complaint: DIFFICULTY BREATHING Notes: 31 yo female c/o RUQ pain x 1 week, oral thrush and burning to bilat axilla. hurts to breath. + nausea. + diarrhea. abdominal pain aggrevated with eating. reports stool is color of trinh. + fevers, cold sweats. abd soft, + RUQ tenderness. + Wood's TRAVEL OUTSIDE OF THE [place] IN LAST 30 DAYS: No - Related Data Allergies/Adverse Reactions: amoxicillin [Amoxicillin] Allergy (Verified 05/10/16 14:21) Penicillins Allergy (Verified 05/10/16 14:21) Past Medical History - Past Medical History Cardiac Medical History: Denies: Hx Coronary Artery Disease, Hx Heart Attack, Hx Hypertension Pulmonary Medical History: Reports: Hx Asthma, Hx Sleep Apnea Denies: Hx Bronchitis, Hx COPD, Hx Pneumonia Neurological Medical History: Denies: Hx Cerebrovascular Accident, Hx Seizures Endocrine Medical History: Denies: Hx Diabetes Mellitus Type 1, Hx Diabetes Mellitus Type 2 Renal/ Medical History: Reports: Hx Ovarian Cysts. Denies: Hx Peritoneal Dialysis GI Medical History: Reports: Hx Gastroesophageal Reflux Disease Musculoskeltal Medical History: Denies Hx Arthritis Psychiatric Medical History: Reports: Hx Anxiety, Hx Attention Deficit Hyperactivity Disorder, Hx Depression Past Surgical History: Reports: Hx Adenoidectomy, Hx Gynecologic Surgery - R ovarian cyst 2010 Uterine fibroid removal 2009 in [place]., Hx Tonsillectomy - Immunizations Hx Diphtheria, Pertussis, Tetanus Vaccination: Yes - 06/2011 Physical Exam - Vital signs Vitals: Temp Pulse Resp BP Pulse Ox 98.4 F 112 H 16 136/96 H 98 05/18/16 19:27 05/18/16 19:27 05/18/16 19:27 05/18/16 19:27 05/18/16 19:27 Course - Vital Signs Vital signs: Temp Pulse Resp BP Pulse Ox 98.4 F 112 H 16 136/96 H 98 05/18/16 19:27 05/18/16 19:27 05/18/16 19:27 05/18/16 19:27 05/18/16 19:27
[2016-05-18 20:54] LABS: ABSOLUTE BASOPHILS # (AUTO) 0.1 10^3/uL (0.0-0.2); ABSOLUTE EOSINOPHILS # (AUTO) 0.2 10^3/uL (0.0-0.6); ABSOLUTE LYMPHOCYTES (AUTO) 3.4 10^3/uL (0.5-4.7); ABSOLUTE MONOCYTES (AUTO) 0.7 10^3/uL (0.1-1.4); ABSOLUTE NEUT (AUTO) 10.7 10^3/uL (1.7-8.2); BASOPHILS % (AUTO) 0.4 % (0-2); EOSINOPHILS % (AUTO) 1.2 % (0-6); HEMATOCRIT 34.3 % (36.0-47.0); HEMOGLOBIN 10.8 g/dL (12.0-15.5); HGB HCT DIFFERENCE -1.9; LYMPHOCYTES % (AUTO) 22.9 % (13-45); MEAN CORPUSCULAR HGB CONC 31.5 g/dL (32.0-36.0); MEAN CORPUSCULAR VOLUME 89 fl (80-97); MONOCYTES % (AUTO) 4.4 % (3-13); RED BLOOD COUNT 3.85 10^6/uL (3.72-5.28); RED CELL DISTRIBUTION WIDTH 16.2 % (11.5-14.0); SEGMENTED NEUTROPHILS % (AUTO) 71.1 % (42-78)
[2016-05-18 20:58] LABS: APPEARANCE,URINE SLIGHTLY-CLOUDY; BILIRUBIN,URINE NEGATIVE (NEGATIVE); GLUCOSE, URINE NEGATIVE (NEGATIVE); KETONES,URINE NEGATIVE (NEGATIVE); LEUKOCYTE ESTERASE,URINE NEGATIVE (NEGATIVE); NITRITE,URINE NEGATIVE (NEGATIVE); PROTEIN,URINE NEGATIVE (NEGATIVE)
[2016-05-18 21:03] LABS: ALANINE AMINOTRANSFERASE 39 U/L (9-52); ALBUMIN 3.9 g/dL (3.5-5.0); ALKALINE PHOSPHATASE 125 U/L (38-126); ANION GAP 14 (5-19); ASPARTATE AMINO TRANSFERASE 20 U/L (14-36); BILIRUBIN,DIRECT 0.3 mg/dL (0.0-0.4); BILIRUBIN,TOTAL 0.5 mg/dL (0.2-1.3); BLOOD UREA NITROGEN 11 mg/dL (7-20); CALCIUM 9.5 mg/dL (8.4-10.2); CARBON DIOXIDE 24 mmol/L (22-30); CHLORIDE 103 mmol/L (98-107); GLUCOSE 99 mg/dL (75-110); LIPASE 101.1 U/L (23-300); POTASSIUM 4.3 mmol/L (3.6-5.0); SODIUM 140.8 mmol/L (137-145); TOTAL PROTEIN 7.6 g/dL (6.3-8.2)
[2016-05-18] MEDS ORDERED: ACETAMINOPHEN 325 MG TABLET PO ONE (23:38)
[2016-05-18] MEDS ORDERED: SUCRALFATE 1 GM TABLET PO ONE (23:38)
--- NOTE | 2016-05-18 23:39 | ER Document Report ---
ED GI/ - General Mode of Arrival: Ambulatory Information source: Patient TRAVEL OUTSIDE OF THE [place] IN LAST 30 DAYS: No - HPI Patient complains to provider of: Abdominal pain Associated symptoms: Other - See above <NALDO CARRILLO - Last Filed: 05/19/16 00:28> <ROLY BELLO - Last Filed: 05/19/16 02:43> - General Chief Complaint: Abdominal Pain Stated Complaint: abdominal pain Notes: Patient is a 31 year old female, with a past medical history including asthma and anxiety, who presents to the emergency department complaining of abdominal pain. Patient states the pain is mostly in her right side and radiates across her abdomen. Patient also complains of nausea, diarrhea that is trinh like, headache, clamminess, hot flashes, poor appetite, poor fluid intake, fever up to 100.9, dysuria, and shortness of breath secondary to feeling gas in her chest. Patient denies vomiting. Patient also reports that her thrush has come back which she gets every year and complains of blood on her tongue and burning under her arm. (NALDO CARRILLO) - Related Data Allergies/Adverse Reactions: amoxicillin [Amoxicillin] Allergy (Verified 05/18/16 19:48) Penicillins Allergy (Verified 05/18/16 19:48) Past Medical History - General Information source: Patient - Social History Smoking Status: Unknown if Ever Smoked Family History: Reviewed & Not Pertinent, Other - Brother with blood clots Patient has suicidal ideation: No Patient has homicidal ideation: No Pulmonary Medical History: Reports: Hx Asthma, Hx Sleep Apnea Renal/ Medical History: Reports: Hx Ovarian Cysts GI Medical History: Reports: Hx Gastroesophageal Reflux Disease Psychiatric Medical History: Reports: Hx Anxiety, Hx Attention Deficit Hyperactivity Disorder, Hx Depression Past Surgical History: Reports: Hx Adenoidectomy, Hx Gynecologic Surgery - R ovarian cyst 2010 Uterine fibroid removal 2010 in [place]., Hx Tonsillectomy - Immunizations Hx Diphtheria, Pertussis, Tetanus Vaccination: Yes - 06/2011 <NALDO CARRILLO - Last Filed: 05/19/16 00:28> Review of Systems - Review of Systems Constitutional: See HPI, Fever, Other - claminess, hot flashes EENT: See HPI, Other - blood on tongue Cardiovascular: No symptoms reported Respiratory: No symptoms reported Gastrointestinal: See HPI, Abdominal pain, Diarrhea, Nausea, Other - gas in chest. denies: Vomiting Genitourinary: See HPI, Dysuria Female Genitourinary: No symptoms reported Musculoskeletal: See HPI, Other - pain under arms Skin: No symptoms reported Hematologic/Lymphatic: No symptoms reported Neurological/Psychological: See HPI, Headaches -: Yes All other systems reviewed and negative <NALDO CARRILLO - Last Filed: 05/19/16 00:28> Physical Exam - Vital signs Interpretation: Normal - General General appearance: Appears well, Alert - HEENT Head: Normocephalic, Atraumatic Eyes: Normal Pupils: PERRL Mouth/Lips: Other - white patches posterior tongue - Respiratory Respiratory status: No respiratory distress Chest status: Nontender Breath sounds: Normal Chest palpation: Normal - Cardiovascular Rhythm: Regular Heart sounds: Normal auscultation Murmur: No - Abdominal Inspection: Normal Distension: No distension Bowel sounds: Normal Tenderness: Tender - mild RUQ. No: Guarding, Rebound Organomegaly: No organomegaly - Back Back: Normal, Nontender - Extremities General upper extremity: Normal inspection, Nontender, Normal color, Normal ROM , Normal temperature General lower extremity: Normal inspection, Nontender, Normal color, Normal ROM , Normal temperature, Normal weight bearing. No: Aubree's sign - Neurological Neuro grossly intact: Yes Cognition: Normal Orientation: AAOx4 [place] Coma Scale Eye Opening: Spontaneous [place] Coma Scale Verbal: Oriented [place] Coma Scale Motor: Obeys Commands Marci Coma Scale Total: 15 Speech: Normal Motor strength normal: LUE, RUE, LLE, RLE Sensory: Normal - Psychological Associated symptoms: Normal affect, Normal mood - Skin Skin Temperature: Warm Skin Moisture: Dry Skin Color: Normal <ROLY BELLO - Last Filed: 05/19/16 02:43> - Vital signs Vitals: Temp Pulse Resp BP Pulse Ox 98.4 F 112 H 16 136/96 H 98 05/18/16 19:27 05/18/16 19:27 05/18/16 19:27 05/18/16 19:27 05/18/16 19:27 Course - Laboratory Result Diagrams: 05/18/16 20:10 05/18/16 20:10 <NALDO CARRILLO - Last Filed: 05/19/16 00:28> - Laboratory Result Diagrams: 05/18/16 20:10 05/18/16 20:10 - Diagnostic Test Radiology reviewed: Reports reviewed <ROLY BELLO - Last Filed: 05/19/16 02:43> - Re-evaluation Re-evalutation: 05/19/16 02:42 Patient appears well this time. No further vomiting. Abdominal pain improved after Carafate. Patient will be discharged home with medication for thrush, although she is been treated with fluconazole here in the emergency department, as well as a prescription for Carafate. No evidence for cholelithiasis or cholecystitis. Blood work within normal limits except that she appears somewhat hemoconcentrated. No difficulty breathing. Headache resolved. Patient is instructed to follow-up with her primary care doctor. Return if any worsening or concerning symptoms. Stable for discharge. (ROLY BELLO ) - Vital Signs Vital signs: Temp Pulse Resp BP Pulse Ox 98.4 F 112 H 16 136/96 H 98 05/18/16 19:27 05/18/16 19:27 05/18/16 19:27 05/18/16 19:27 05/18/16 19:27 - Laboratory Laboratory results interpreted by me: 05/18/16 05/18/16 20:10 20:10 WBC 15.0 H Hgb 10.8 L Hct 34.3 L MCHC 31.5 L RDW 16.2 H Plt Count 549 H Absolute Neutrophils 10.7 H Urine Urobilinogen 2.0 H Urine Ascorbic Acid 20 H Discharge <NALDO CARRILLO - Last Filed: 05/19/16 00:28> <ROLY BELLO - Last Filed: 05/19/16 02:43> - Discharge Clinical Impression: Thrush Abdominal pain Qualifiers: Abdominal location: right upper quadrant Qualified Code(s): R10.11 - Right upper quadrant pain Condition: Stable Disposition: HOME, SELF-CARE Instructions: Abdominal Pain ([facility]), Oral Thrush ([facility]) Prescriptions: Nystatin [Mycostatin 585719 Unit/1 ml Susp 60 ml Btl] 1 ml PO BID #60 ml Sucralfate [Carafate 1 gm Tablet] 1 gm PO ACHS #30 tablet Referrals: FINA JOSEPH MD [Primary Care Provider] - Follow up tomorrow Scribe Attestation: 05/19/16 02:41 I personally performed the services described in the documentation, reviewed and edited the documentation which was dictated to the scribe in my presence, and it accurately records my words and actions. (ROLY BELLO) Scribe Documentation - Scribe Written by Scribe:: jeannie Stover, 05/19/16, 0023 acting as scribe for :: Rakesh <NALDO CARRILLO - Last Filed: 05/19/16 00:28>
[2016-05-19] MEDS ORDERED: IBUPROFEN 800 MG TABLET ONE (01:38)
[2016-05-19] MEDS ORDERED: FLUCONAZOLE 100 MG TABLET PO ONE (01:50)
[2016-05-19 03:03] VITALS: BP 139/67
== END 2016-05-19 03:07 | disposition home or self-care (01) ==
LOC: ER 19:21
DX: B37.0 Candidal stomatitis (principal); R10.11 Right upper quadrant pain; R51 Headache; R50.9 Fever, unspecified; R30.0 Dysuria; R11.0 Nausea; R19.7 Diarrhea, unspecified; R06.02 Shortness of breath; Z88.0 Allergy status to penicillin
CPT/HCPCS: 36415; 76705; 80053; 81001; 83690; 84703; 85025; 99284

== ENCOUNTER 2016-05-22 00:10 | Emergency (ER) | payer SELFPAY ==
[2016-05-22] MEDS ORDERED: NORMAL SALINE 1000 ML 1,000 ML IV ONE (01:37)
[2016-05-22] MEDS ORDERED: METOCLOPRAMIDE HCL INJ/PF 10 MG/2 ML SDV IV ONE (01:38)
[2016-05-22] MEDS ORDERED: DIPHENHYDRAMINE HCL 50 MG/ML VIAL IV ONE (01:38)
--- NOTE | 2016-05-22 01:40 | ER Document Report ---
ED General - General Chief Complaint: Breathing Difficulty Stated Complaint: HURTS TO BREATH Time seen by provider: 01:38 Notes: Patient is a 31-year-old female that comes emergency department with multiple complaints. She states that she still has a cough and pains in her chest, she still states that she is getting headaches, she states that she had 10 episodes of diarrhea today which were nonbloody. Patient states she has recently been on steroids, recently on antibiotics for bronchitis. She denies fevers. She denies productive cough. She states she had abdominal pain but this resolved and she denies current abdominal pain. Past medical history of asthma, anxiety. TRAVEL OUTSIDE OF THE [place] IN LAST 30 DAYS: No - Related Data Allergies/Adverse Reactions: amoxicillin [Amoxicillin] Allergy (Verified 05/18/16 19:48) Penicillins Allergy (Verified 05/18/16 19:48) Past Medical History - General Information source: Patient - Social History Smoking Status: Never Smoker Chew tobacco use (# tins/day): No Frequency of alcohol use: Rare Drug Abuse: None Lives with: Family Family History: Reviewed & Not Pertinent, Other - Brother with blood clots Patient has suicidal ideation: No Patient has homicidal ideation: No - Past Medical History Cardiac Medical History: Denies: Hx Coronary Artery Disease, Hx Heart Attack, Hx Hypertension Pulmonary Medical History: Reports: Hx Asthma, Hx Sleep Apnea Denies: Hx Bronchitis, Hx COPD, Hx Pneumonia Neurological Medical History: Denies: Hx Cerebrovascular Accident, Hx Seizures Endocrine Medical History: Denies: Hx Diabetes Mellitus Type 1, Hx Diabetes Mellitus Type 2 Renal/ Medical History: Reports: Hx Ovarian Cysts. Denies: Hx Peritoneal Dialysis GI Medical History: Reports: Hx Gastroesophageal Reflux Disease Musculoskeltal Medical History: Denies Hx Arthritis Psychiatric Medical History: Reports: Hx Anxiety, Hx Attention Deficit Hyperactivity Disorder, Hx Depression Past Surgical History: Reports: Hx Adenoidectomy, Hx Gynecologic Surgery - R ovarian cyst 2010 Uterine fibroid removal 2010 in [place]., Hx Tonsillectomy - Immunizations Hx Diphtheria, Pertussis, Tetanus Vaccination: Yes - 06/2011 Review of Systems - Review of Systems Constitutional: No symptoms reported EENT: No symptoms reported Cardiovascular: No symptoms reported Respiratory: See HPI Gastrointestinal: See HPI Genitourinary: No symptoms reported Female Genitourinary: No symptoms reported Musculoskeletal: See HPI Skin: No symptoms reported Hematologic/Lymphatic: No symptoms reported Neurological/Psychological: See HPI Physical Exam - Vital signs Vitals: Temp Pulse Resp BP Pulse Ox 98.4 F 86 18 133/80 H 97 05/22/16 00:16 05/22/16 00:16 05/22/16 00:16 05/22/16 00:16 05/22/16 00:16 Interpretation: Normal - General General appearance: Appears well, Alert In distress: None - Alert and well-appearing obese female - HEENT Head: Normocephalic, Atraumatic Eyes: Normal Conjunctiva: Normal Extraocular movements intact: Yes Eyelashes: Normal Pupils: PERRL Sinus: Normal Nasal: Normal Mouth/Lips: Normal Mucous membranes: Normal Pharynx: Normal Neck: Normal - Respiratory Respiratory status: No respiratory distress Chest status: Nontender Breath sounds: Normal Chest palpation: Normal - Cardiovascular Rhythm: Regular. No: Tachycardia Heart sounds: Normal auscultation, S1 appreciated, S2 appreciated Murmur: No - Abdominal Inspection: Normal Distension: No distension Bowel sounds: Normal Tenderness: Nontender. No: Tender, Guarding Organomegaly: No organomegaly - Back Back: Normal, Nontender. No: Tender - Extremities General upper extremity: Normal inspection, Nontender, Normal color, Normal ROM , Normal temperature General lower extremity: Normal inspection, Nontender, Normal color, Normal ROM , Normal temperature, Normal weight bearing. No: Aubree's sign - Neurological Neuro grossly intact: Yes Cognition: Normal Orientation: AAOx4 [place] Coma Scale Eye Opening: Spontaneous [place] Coma Scale Verbal: Oriented [place] Coma Scale Motor: Obeys Commands [place] Coma Scale Total: 15 Speech: Normal Cranial nerves: Normal Cerebellar coordination: Normal Motor strength normal: LUE, RUE, LLE, RLE Additional motor exam normals: Equal nightman Sensory: Normal - Psychological Associated symptoms: Normal affect, Normal mood - Skin Skin Temperature: Warm Skin Moisture: Dry Skin Color: Normal Course - Re-evaluation Re-evalutation: Clear lungs, soft belly, patient very infrequently coughing, normal neurological exam, patient is extremely well appearing. Because of reported persistent diarrhea and override of symptoms a workup was performed and shows no abnormalities on chest x-ray, unremarkable labs, unremarkable stool. Patient provided the symptom management for headache, on reexamination denies any complaints. Providing with additional symptom management, no acute concerning abnormalities noted. - Vital Signs Vital signs: Temp Pulse Resp BP Pulse Ox 98.3 F 101 H 18 128/81 H 98 05/22/16 04:57 05/22/16 04:57 05/22/16 04:57 05/22/16 04:57 05/22/16 04:57 - Laboratory Result Diagrams: 05/22/16 02:25 05/22/16 02:25 Laboratory results interpreted by me: 05/22/16 05/22/16 05/22/16 01:45 02:25 02:25 WBC 12.1 H RBC 3.58 L Hgb 9.9 L Hct 31.6 L MCHC 31.5 L RDW 15.7 H Plt Count 460 H Glucose 115 H Urine Ascorbic Acid 40 H Discharge - Discharge Clinical Impression: Cough, Chest discomfort Headache Qualifiers: Headache type: unspecified Headache chronicity pattern: acute headache Intractability: not intractable Qualified Code(s): R51 - Headache Condition: Stable Disposition: HOME, SELF-CARE Additional Instructions: Your examination and workup does not show any acute abnormalities. Take the medication prescribed if needed for headache, take the Tessalon Perles needed for cough, otherwise continue current medications. Follow-up with primary care. Return to the emergency department for any concerning symptoms. Prescriptions: Butalb/Acetaminophen/Caffeine [Fioricet (50-325-40 mg) Tablet] 1 tab PO Q4HP PRN #20 tab PRN Reason: Benzonatate [Tessalon Perle 100 mg Capsule] 100 mg PO Q8HP PRN #20 cap PRN Reason:
[2016-05-22 03:10] LABS: ABSOLUTE BASOPHILS # (AUTO) 0.1 10^3/uL (0.0-0.2); ABSOLUTE EOSINOPHILS # (AUTO) 0.1 10^3/uL (0.0-0.6); ABSOLUTE LYMPHOCYTES (AUTO) 3.5 10^3/uL (0.5-4.7); ABSOLUTE MONOCYTES (AUTO) 0.6 10^3/uL (0.1-1.4); ABSOLUTE NEUT (AUTO) 7.8 10^3/uL (1.7-8.2); BASOPHILS % (AUTO) 0.5 % (0-2); HEMATOCRIT 31.6 % (36.0-47.0); HEMOGLOBIN 9.9 g/dL (12.0-15.5); HGB HCT DIFFERENCE -1.9; LYMPHOCYTES % (AUTO) 28.8 % (13-45); MEAN CORPUSCULAR HEMOGLOBIN 27.7 pg (27.0-33.4); MEAN CORPUSCULAR HGB CONC 31.5 g/dL (32.0-36.0); MEAN CORPUSCULAR VOLUME 88 fl (80-97); MONOCYTES % (AUTO) 5.3 % (3-13); RED BLOOD COUNT 3.58 10^6/uL (3.72-5.28); RED CELL DISTRIBUTION WIDTH 15.7 % (11.5-14.0); SEGMENTED NEUTROPHILS % (AUTO) 64.4 % (42-78); WHITE BLOOD COUNT 12.1 10^3/uL (4.0-10.5)
[2016-05-22 03:19] LABS: ALANINE AMINOTRANSFERASE 33 U/L (9-52); ALBUMIN 3.8 g/dL (3.5-5.0); ALKALINE PHOSPHATASE 112 U/L (38-126); ASPARTATE AMINO TRANSFERASE 31 U/L (14-36); BILIRUBIN,DIRECT 0.4 mg/dL (0.0-0.4); BILIRUBIN,TOTAL 0.5 mg/dL (0.2-1.3); BLOOD UREA NITROGEN 10 mg/dL (7-20); CALCIUM 9.2 mg/dL (8.4-10.2); CARBON DIOXIDE 25 mmol/L (22-30); CHLORIDE 104 mmol/L (98-107); CREATININE RESULT 0.84 mg/dL (0.52-1.25); GLUCOSE 115 mg/dL (75-110); POTASSIUM 4.2 mmol/L (3.6-5.0); TOTAL PROTEIN 7.3 g/dL (6.3-8.2)
[2016-05-22 03:20] LABS: APPEARANCE,URINE CLEAR; BILIRUBIN,URINE NEGATIVE (NEGATIVE); GLUCOSE, URINE NEGATIVE (NEGATIVE); KETONES,URINE NEGATIVE (NEGATIVE); LEUKOCYTE ESTERASE,URINE NEGATIVE (NEGATIVE); NITRITE,URINE NEGATIVE (NEGATIVE); PROTEIN,URINE NEGATIVE (NEGATIVE); URINE SPECIFIC GRAVITY 1.009; UROBILINOGEN,URINE NEGATIVE mg/dL (<2.0)
[2016-05-22 03:21] LABS: ANION GAP 12 (5-19); SODIUM 140.9 mmol/L (137-145)
[2016-05-22 05:18] VITALS: BP 128/81
== END 2016-05-22 05:10 | disposition home or self-care (01) ==
LOC: ER 00:10
DX: R07.1 Chest pain on breathing (principal); R05 Cough; R51 Headache; R19.7 Diarrhea, unspecified; J45.909 Unspecified asthma, uncomplicated; E66.9 Obesity, unspecified; Z68.43 Body mass index [BMI] 50.0-59.9, adult; Z88.0 Allergy status to penicillin
CPT/HCPCS: 99285; 96361; 96374; 96375; 36415; 87045; 89055; 87205; 85025; 82272; 81025; 80053; 81001; 87493 ×2; 71020; J1200; J2765; J7030

== ENCOUNTER 2016-05-23 18:59 | Emergency (ER) | payer SELFPAY ==
--- NOTE | 2016-05-23 19:20 | ER Document Report ---
ED Medical Screen (RME) - General Stated Complaint: DIZZINESS,NAUSEA Mode of Arrival: Ambulatory Information source: Patient Notes: Patient presents emergency department with reports of dizzy feeling difficulty breathing. Patient was evaluated last night for him to in treated with Tessalon Perles and fiorcet. Last dose of either med was at midnight. . She reports she feels anxious. RR even/unlabored. Hx of anxiety. I have greeted and performed a rapid initial assessment of this patient. A comprehensive ED assessment and evaluation of the patient, analysis of test results and completion of the medical decision making process will be conducted by additional ED providers. TRAVEL OUTSIDE OF THE [place] IN LAST 30 DAYS: No - Related Data Allergies/Adverse Reactions: amoxicillin [Amoxicillin] Allergy (Verified 05/18/16 19:48) Penicillins Allergy (Verified 05/18/16 19:48) Past Medical History - Past Medical History Cardiac Medical History: Denies: Hx Coronary Artery Disease, Hx Heart Attack, Hx Hypertension Pulmonary Medical History: Reports: Hx Asthma, Hx Sleep Apnea Denies: Hx Bronchitis, Hx COPD, Hx Pneumonia Neurological Medical History: Denies: Hx Cerebrovascular Accident, Hx Seizures Endocrine Medical History: Denies: Hx Diabetes Mellitus Type 1, Hx Diabetes Mellitus Type 2 Renal/ Medical History: Reports: Hx Ovarian Cysts. Denies: Hx Peritoneal Dialysis GI Medical History: Reports: Hx Gastroesophageal Reflux Disease Musculoskeltal Medical History: Denies Hx Arthritis Psychiatric Medical History: Reports: Hx Anxiety, Hx Attention Deficit Hyperactivity Disorder, Hx Depression Past Surgical History: Reports: Hx Adenoidectomy, Hx Gynecologic Surgery - R ovarian cyst 2010 Uterine fibroid removal 2009 in [place]., Hx Tonsillectomy - Immunizations Hx Diphtheria, Pertussis, Tetanus Vaccination: Yes - 06/2011 Physical Exam - Vital signs Vitals: Temp Pulse Resp BP Pulse Ox 98.8 F 93 18 147/101 H 98 05/23/16 19:02 05/23/16 19:02 05/23/16 19:02 05/23/16 19:02 05/23/16 19:02 Course - Vital Signs Vital signs: Temp Pulse Resp BP Pulse Ox 98.8 F 93 18 147/101 H 98 05/23/16 19:02 05/23/16 19:02 05/23/16 19:02 05/23/16 19:02 05/23/16 19:02
[2016-05-24 00:57] VITALS: BP 149/87
--- NOTE | 2016-05-24 01:10 | ER Document Report ---
ED General - General Chief Complaint: Adverse reaction to medication Stated Complaint: DIZZINESS,NAUSEA Time seen by provider: 01:10 Mode of Arrival: Ambulatory Information source: Patient TRAVEL OUTSIDE OF THE [place] IN LAST 30 DAYS: No - HPI Patient complains to provider of: dizziness, tingling in hands and toes Onset: Yesterday Onset/Duration: Sudden Quality of pain: Achy Severity: Mild Associated symptoms: Headache Exacerbated by: Denies Relieved by: Denies Similar symptoms previously: No Recently seen / treated by doctor: Yes Notes: Patient is a 31-year-old female who presents to the emergency room complaining of headache with tingling sensation in her hands and toes, feeling jittery and unable to sit still, states his symptoms started after she took a dose of Fioricet this evening which she was recently prescribed for headache, she has never taken this medication previously, she denies fever, no nausea, vomiting or diarrhea, she reports she attempted to hydrate herself by drinking sweet tea today as well - Related Data Allergies/Adverse Reactions: amoxicillin [Amoxicillin] Allergy (Verified 05/18/16 19:48) Penicillins Allergy (Verified 05/18/16 19:48) Past Medical History - General Information source: Patient - Social History Smoking Status: Never Smoker Family History: Reviewed & Not Pertinent, Other - Brother with blood clots - Past Medical History Cardiac Medical History: Denies: Hx Coronary Artery Disease, Hx Heart Attack, Hx Hypertension Pulmonary Medical History: Reports: Hx Asthma, Hx Sleep Apnea Denies: Hx Bronchitis, Hx COPD, Hx Pneumonia Neurological Medical History: Denies: Hx Cerebrovascular Accident, Hx Seizures Endocrine Medical History: Denies: Hx Diabetes Mellitus Type 1, Hx Diabetes Mellitus Type 2 Renal/ Medical History: Reports: Hx Ovarian Cysts. Denies: Hx Peritoneal Dialysis GI Medical History: Reports: Hx Gastroesophageal Reflux Disease Musculoskeltal Medical History: Denies Hx Arthritis Psychiatric Medical History: Reports: Hx Anxiety, Hx Attention Deficit Hyperactivity Disorder, Hx Depression Past Surgical History: Reports: Hx Adenoidectomy, Hx Gynecologic Surgery - R ovarian cyst 2010 Uterine fibroid removal 2009 in [place]., Hx Tonsillectomy - Immunizations Hx Diphtheria, Pertussis, Tetanus Vaccination: Yes - 06/2011 Review of Systems - Review of Systems Constitutional: No symptoms reported EENT: No symptoms reported Cardiovascular: Dizziness Respiratory: No symptoms reported Gastrointestinal: No symptoms reported Genitourinary: No symptoms reported Female Genitourinary: No symptoms reported Musculoskeletal: No symptoms reported Skin: No symptoms reported Hematologic/Lymphatic: No symptoms reported Neurological/Psychological: Headaches, Tingling Physical Exam - Vital signs Vitals: Temp Pulse Resp BP Pulse Ox 98.8 F 93 18 147/101 H 98 05/23/16 19:02 05/23/16 19:02 05/23/16 19:02 05/23/16 19:02 05/23/16 19:02 Interpretation: Normal - General General appearance: Appears well, Alert - HEENT Head: Normocephalic, Atraumatic Eyes: Normal Pupils: PERRL - Respiratory Respiratory status: No respiratory distress Chest status: Nontender Breath sounds: Normal Chest palpation: Normal - Cardiovascular Rhythm: Regular Heart sounds: Normal auscultation Murmur: No - Abdominal Inspection: Normal, Obese Distension: No distension Bowel sounds: Normal Tenderness: Nontender Organomegaly: No organomegaly - Back Back: Normal, Nontender - Extremities General upper extremity: Normal inspection, Nontender, Normal color, Normal ROM , Normal temperature General lower extremity: Normal inspection, Nontender, Normal color, Normal ROM , Normal temperature, Normal weight bearing. No: Aubree's sign - Neurological Neuro grossly intact: Yes Cognition: Normal Orientation: AAOx4 [place] Coma Scale Eye Opening: Spontaneous [place] Coma Scale Verbal: Oriented [place] Coma Scale Motor: Obeys Commands [place] Coma Scale Total: 15 Speech: Normal Motor strength normal: LUE, RUE, LLE, RLE Sensory: Normal - Psychological Associated symptoms: Normal affect, Normal mood - Skin Skin Temperature: Warm Skin Moisture: Dry Skin Color: Normal Course - Re-evaluation Re-evalutation: 05/24/16 03:28 Patient symptoms likely a result of Fioricet as well as increased caffeine consumption throughout the day, she was given a light sedative and advised to stop taking the Fioricet, follow up with her primary care provider or return if symptoms worsen, patient acknowledges understanding and agreement with this plan - Vital Signs Vital signs: Temp Pulse Resp BP Pulse Ox 98.6 F 91 20 149/87 H 97 05/24/16 00:56 05/24/16 00:56 05/24/16 00:56 05/24/16 00:56 05/24/16 00:56 Discharge - Discharge Clinical Impression: Medication side effect Condition: Stable Disposition: HOME, SELF-CARE Instructions: Medication Side Effects ([facility]) Additional Instructions: Follow up with your primary care provider in 2-3 days. Return to the ER immediately if symptoms worsen or any additional concerns. Stop taking fioricet. Prescriptions: Diazepam [Valium 5 mg Tablet] 5 mg PO QIDP PRN #7 tablet PRN Reason: Forms: Return to Work Referrals: VENUS ORANTES FNP-C [Primary Care Provider] - Follow up as needed
[2016-05-24] MEDS ORDERED: DIAZEPAM INJ 10 MG/2 ML DISP.SYRIN IM ONE (01:12)
== END 2016-05-24 01:30 | disposition home or self-care (01) ==
LOC: ER 18:59
DX: R42 Dizziness and giddiness (principal); R20.2 Paresthesia of skin; R29.818 Other symptoms and signs involving the nervous system; T39.95XA Adverse effect of unspecified nonopioid analgesic, antipyretic and antirheumatic, initial encounter; R51 Headache; J45.909 Unspecified asthma, uncomplicated; Z88.0 Allergy status to penicillin
CPT/HCPCS: 99283

== ENCOUNTER 2016-05-27 14:38 | Emergency (ER) | payer SELFPAY ==
--- NOTE | 2016-05-27 14:55 | ER Document Report ---
ED Medical Screen (RME) - General Stated Complaint: DIZZINESS,NAUSEA Notes: Patient states she was started on 2 new medications on Monday, and Monday she started feeling weak and having increased anxiety. She is having difficulty breathing, her chest hurts, feels dizzy and lightheaded. Patient also complains of nausea and shaking all over. Did have bronchitis at the beginning of April. Patient states she was seen Monday for coughing and sneezing, prescribed Tessalon Perles and had a reaction to that. I have greeted and performed a rapid initial assessment of this patient. A comprehensive ED assessment and evaluation of the patient, analysis of test results and completion of the medical decision making process will be conducted by additional ED providers. TRAVEL OUTSIDE OF THE [place] IN LAST 30 DAYS: No - Related Data Allergies/Adverse Reactions: amoxicillin [Amoxicillin] Allergy (Verified 05/27/16 14:50) benzonatate [From Tessalon Perles] Allergy (Verified 05/27/16 14:50) Penicillins Allergy (Verified 05/27/16 14:50) Past Medical History - Past Medical History Cardiac Medical History: Denies: Hx Coronary Artery Disease, Hx Heart Attack, Hx Hypertension Pulmonary Medical History: Reports: Hx Asthma, Hx Sleep Apnea Denies: Hx Bronchitis, Hx COPD, Hx Pneumonia Neurological Medical History: Denies: Hx Cerebrovascular Accident, Hx Seizures Endocrine Medical History: Denies: Hx Diabetes Mellitus Type 1, Hx Diabetes Mellitus Type 2 Renal/ Medical History: Reports: Hx Ovarian Cysts. Denies: Hx Peritoneal Dialysis GI Medical History: Reports: Hx Gastroesophageal Reflux Disease Musculoskeltal Medical History: Denies Hx Arthritis Psychiatric Medical History: Reports: Hx Anxiety, Hx Attention Deficit Hyperactivity Disorder, Hx Depression Past Surgical History: Reports: Hx Adenoidectomy, Hx Gynecologic Surgery - R ovarian cyst 2010 Uterine fibroid removal 2010 in [place]., Hx Tonsillectomy - Immunizations Hx Diphtheria, Pertussis, Tetanus Vaccination: Yes - 06/2011 Physical Exam - Vital signs Vitals: Temp Pulse Resp BP Pulse Ox 98.2 F 145 H 24 H 143/75 H 98 05/27/16 14:48 05/27/16 14:48 05/27/16 14:48 05/27/16 14:48 05/27/16 14:48 - Notes Notes: Radial pulse checked at 128. Course - Vital Signs Vital signs: Temp Pulse Resp BP Pulse Ox 98.2 F 145 H 24 H 143/75 H 98 05/27/16 14:48 05/27/16 14:48 05/27/16 14:48 05/27/16 14:48 05/27/16 14:48
[2016-05-27] MEDS ORDERED: NORMAL SALINE 500 ML IV ONE (15:34)
[2016-05-27 15:44] LABS: ABSOLUTE EOSINOPHILS # (AUTO) 0.1 10^3/uL (0.0-0.6); ABSOLUTE LYMPHOCYTES (AUTO) 1.9 10^3/uL (0.5-4.7); ABSOLUTE MONOCYTES (AUTO) 0.3 10^3/uL (0.1-1.4); ABSOLUTE NEUT (AUTO) 9.9 10^3/uL (1.7-8.2); BASOPHILS % (AUTO) 0.2 % (0-2); EOSINOPHILS % (AUTO) 0.7 % (0-6); HEMATOCRIT 32.5 % (36.0-47.0); HEMOGLOBIN 10.4 g/dL (12.0-15.5); HGB HCT DIFFERENCE -1.3; LYMPHOCYTES % (AUTO) 15.7 % (13-45); MEAN CORPUSCULAR HEMOGLOBIN 27.8 pg (27.0-33.4); MEAN CORPUSCULAR HGB CONC 31.9 g/dL (32.0-36.0); MEAN CORPUSCULAR VOLUME 87 fl (80-97); MONOCYTES % (AUTO) 2.6 % (3-13); RED BLOOD COUNT 3.73 10^6/uL (3.72-5.28); RED CELL DISTRIBUTION WIDTH 15.3 % (11.5-14.0); SEGMENTED NEUTROPHILS % (AUTO) 80.8 % (42-78); WHITE BLOOD COUNT 12.3 10^3/uL (4.0-10.5)
[2016-05-27 15:54] LABS: APPEARANCE,URINE SLIGHTLY-CLOUDY; BILIRUBIN,URINE NEGATIVE (NEGATIVE); GLUCOSE, URINE NEGATIVE (NEGATIVE); KETONES,URINE NEGATIVE (NEGATIVE); LEUKOCYTE ESTERASE,URINE NEGATIVE (NEGATIVE); NITRITE,URINE NEGATIVE (NEGATIVE); PROTEIN,URINE 30 mg/dL (NEGATIVE); URINE SPECIFIC GRAVITY 1.028; UROBILINOGEN,URINE NEGATIVE mg/dL (<2.0)
[2016-05-27 16:04] LABS: ALANINE AMINOTRANSFERASE 29 U/L (9-52); ALKALINE PHOSPHATASE 97 U/L (38-126); ANION GAP 13 (5-19); ASPARTATE AMINO TRANSFERASE 20 U/L (14-36); BILIRUBIN,DIRECT 0.1 mg/dL (0.0-0.4); BILIRUBIN,TOTAL 0.3 mg/dL (0.2-1.3); BLOOD UREA NITROGEN 7 mg/dL (7-20); CALCIUM 9.6 mg/dL (8.4-10.2); CARBON DIOXIDE 28 mmol/L (22-30); CHLORIDE 100 mmol/L (98-107); CREATINE KINASE 45 U/L (30-135); CREATININE RESULT 0.82 mg/dL (0.52-1.25); GLUCOSE 140 mg/dL (75-110); POTASSIUM 3.7 mmol/L (3.6-5.0); SODIUM 141.1 mmol/L (137-145); TOTAL PROTEIN 7.3 g/dL (6.3-8.2)
[2016-05-27] MEDS ORDERED: LORAZEPAM 1 MG TABLET PO ONE ×2 (16:09→17:12)
[2016-05-27] MEDS ORDERED: NORMAL SALINE 1000 ML 500 ML IV ONE (16:12)
[2016-05-27 16:18] LABS: CREATINE KINASE MB < 0.22 ng/mL (<4.55); TROPONIN I < 0.012 ng/mL
--- NOTE | 2016-05-27 16:19 | ER Document Report ---
ED Cardiac - General Chief Complaint: Chest Pain Stated Complaint: DIZZINESS,NAUSEA Time seen by provider: 16:13 Mode of Arrival: Ambulatory Information source: Patient Notes: 31 yo female racing heart (no hx) nausea, weak, dizzy, occasional anterior chest shortness of breath, feels like she is going to faint, glucose has been elevating since yesterday judith 169. Fanapt started monday last dose 4mg yesteray morning and klonipin 0.5 bid (dr. perez [facility]). No fever, cough and sneeze started monday. No dysuria. "Narly" feeling in abdomen when she tries to eat. Chronic low back, takes oxycodone 10mg four times per day. Didn't run out. Ran out of xanax 1.5 weeks ago. TRAVEL OUTSIDE OF THE [place] IN LAST 30 DAYS: No - Related Data Allergies/Adverse Reactions: amoxicillin [Amoxicillin] Allergy (Verified 05/27/16 14:50) benzonatate [From Tessalon Perles] Allergy (Verified 05/27/16 14:50) Penicillins Allergy (Verified 05/27/16 14:50) Past Medical History - General Information source: Patient - Social History Smoking Status: Never Smoker Chew tobacco use (# tins/day): No Frequency of alcohol use: None Drug Abuse: None Lives with: Family Family History: Reviewed & Not Pertinent, Other - Brother with blood clots Patient has suicidal ideation: No Patient has homicidal ideation: No Pulmonary Medical History: Reports: Hx Asthma, Hx Sleep Apnea Renal/ Medical History: Reports: Hx Ovarian Cysts. Denies: Hx Peritoneal Dialysis GI Medical History: Reports: Hx Gastroesophageal Reflux Disease Psychiatric Medical History: Reports: Hx Anxiety, Hx Attention Deficit Hyperactivity Disorder, Hx Depression Past Surgical History: Reports: Hx Adenoidectomy, Hx Gynecologic Surgery - R ovarian cyst 2010 Uterine fibroid removal 2010 in [place]., Hx Tonsillectomy - Immunizations Hx Diphtheria, Pertussis, Tetanus Vaccination: Yes - 06/2011 Review of Systems - Review of Systems Constitutional: No symptoms reported EENT: No symptoms reported Cardiovascular: See HPI Respiratory: See HPI Gastrointestinal: No symptoms reported Genitourinary: No symptoms reported Female Genitourinary: No symptoms reported Musculoskeletal: No symptoms reported Skin: No symptoms reported Hematologic/Lymphatic: No symptoms reported Neurological/Psychological: See HPI Physical Exam - Vital signs Vitals: Temp Pulse Resp BP Pulse Ox 98.2 F 145 H 24 H 143/75 H 98 05/27/16 14:48 05/27/16 14:48 05/27/16 14:48 05/27/16 14:48 05/27/16 14:48 Interpretation: Tachycardic - General General appearance: Appears well, Alert, Anxious In distress: None - HEENT Head: Normocephalic, Atraumatic Eyes: Normal Conjunctiva: Normal Pupils: PERRL Tympanic membrane: Normal Mouth/Lips: Normal Mucous membranes: Normal Pharynx: Normal Neck: Supple. No: Lymphadenopathy - Respiratory Respiratory status: No respiratory distress Chest status: Nontender Breath sounds: Normal Chest palpation: Normal - Cardiovascular Rhythm: Regular Heart sounds: Normal auscultation Murmur: No - Abdominal Inspection: Normal Distension: No distension Bowel sounds: Normal Tenderness: Nontender. No: Tender Organomegaly: No organomegaly. No: Hepatomegaly, Splenomegaly - Back Back: Normal, Nontender. No: CVA tenderness - Extremities General upper extremity: Normal inspection, Nontender, Normal color, Normal ROM , Normal temperature General lower extremity: Normal inspection, Nontender, Normal color, Normal ROM , Normal temperature, Normal weight bearing. No: Aubree's sign - Neurological Neuro grossly intact: Yes Cognition: Normal Orientation: AAOx4 [place] Coma Scale Eye Opening: Spontaneous Marci Coma Scale Verbal: Oriented [place] Coma Scale Motor: Obeys Commands [place] Coma Scale Total: 15 Speech: Normal Motor strength normal: LUE, RUE, LLE, RLE Sensory: Normal - Psychological Associated symptoms: Normal affect, Normal mood - Skin Skin Temperature: Warm Skin Moisture: Dry Skin Color: Normal Skin irregularity: negative: Rash Course - Re-evaluation Re-evalutation: 05/27/16 16:13 I have consulted with the supervisory physician per [facility] Guidelines. dr mera, he is in the room, give ativan, get CTA, pending other labs. 05/27/16 18:12 CTA is negative, HR down to 117, c/o mild headache, torodol 30mg IV ordered. 05/27/16 18:[address] mera again, heartreate 116-124, give 2 more liters for total of 3.5 and 2mg ativan IV. If the pulse is 110 her lower she can be discharged home. 05/27/16 19:21 report has been given to Charlie ARIAS who will take over and the patient - Vital Signs Vital signs: Temp Pulse Resp BP Pulse Ox 98.2 F 145 H 17 140/95 H 100 05/27/16 14:48 05/27/16 14:48 05/27/16 19:01 05/27/16 19:00 05/27/16 19:01 - Laboratory Result Diagrams: 05/27/16 15:13 05/27/16 15:13 Laboratory results interpreted by me: 05/27/16 05/27/16 05/27/16 15:13 15:13 15:13 WBC 12.3 H Hgb 10.4 L Hct 32.5 L MCHC 31.9 L RDW 15.3 H Seg Neutrophils % 80.8 H Monocytes % 2.6 L Absolute Neutrophils 9.9 H Glucose 140 H Urine Protein 30 H - EKG Interpretation by Mo EKG shows normal: Sinus rhythm Rate: Tachycardia Rhythm: NSR - Transfer of Care Care transferred to following provider: Charlie ARIAS Discharge - Discharge Clinical Impression: tachycardia Condition: Stable Disposition: HOME, SELF-CARE
[2016-05-27] MEDS ORDERED: NORMAL SALINE 1000 ML 1,000 ML IV ONE (16:22)
[2016-05-27] MEDS ORDERED: KETOROLAC TROMETHAMINE INJ/PF 30 MG/1 ML SDV IV ONE (18:12)
[2016-05-27] MEDS ORDERED: NORMAL SALINE 1000 ML 2,000 ML IV ONE (18:41)
[2016-05-27] MEDS ORDERED: LORAZEPAM INJ 2 MG/1 ML VIAL IV ONE (19:15)
[2016-05-27 20:01] LABS: URINE BARBITURATES SCREEN NEGATIVE; URINE METHADONE SCREEN NEGATIVE; URINE OPIATES LOW UNCONFIRMED POSITIVE; URINE PHENCYCLIDINE SCREEN NEGATIVE
[2016-05-27] MEDS ORDERED: VERAPAMIL HCL INJ/PF 5 MG/2 ML SDV IV ONE (21:38)
--- NOTE | 2016-05-27 22:02 | EKG REPORT ---
SEVERITY:- BORDERLINE ECG - SINUS TACHYCARDIA BORDERLINE T ABNORMALITIES, DIFFUSE LEADS : Confirmed by: Luzmaria Lindsey 27-May-2016 22:01:19
[2016-05-27] MEDS ORDERED: DILTIAZEM HCL 30 MG TABLET PO ONE (22:45)
[2016-05-27 23:05] VITALS: BP 105/77
== END 2016-05-27 23:15 | disposition home or self-care (01) ==
LOC: ER 14:38
DX: R00.0 Tachycardia, unspecified (principal); R07.9 Chest pain, unspecified; R11.0 Nausea; R06.02 Shortness of breath
CPT/HCPCS: 93005; 99285; 96374; 96375; 36415; 87086; 82553; 82550; 84702; 84443; 85025; 80053; 81001; 84484; 80307; 71020; 71275; 93010; J2060; J3490; J7030; J7040

== ENCOUNTER 2016-06-09 18:37 | Emergency (ER) | payer SELFPAY ==
--- NOTE | 2016-06-09 19:41 | ER Document Report ---
ED Medical Screen (RME) - General Chief Complaint: Breathing Difficulty Stated Complaint: DIFFICULTY BREATHING Notes: The patient is a 31-year-old female, past medical history asthma, reflux, depression, anxiety, presents with increasing shortness of breath and mild chest pain, worsening over the past few days. She tried her albuterol inhaler without much relief and says that this shortness of breath is different than her asthma exacerbations. She called her blocker automatic Dr. Cooney and was told to come to the emergency room. In addition, she is having left flank pain and dysuria. She denies nausea, vomiting, leg swelling, hemoptysis, fevers, sputum , headache or rash. I have greeted and performed a rapid initial assessment of this patient. A comprehensive ED assessment and evaluation of the patient, analysis of test results and completion of the medical decision making process will be conducted by additional ED providers. TRAVEL OUTSIDE OF THE [place] IN LAST 30 DAYS: No - Related Data Allergies/Adverse Reactions: amoxicillin [Amoxicillin] Allergy (Verified 05/27/16 14:50) benzonatate [From Tessalon Perles] Allergy (Verified 05/27/16 14:50) Penicillins Allergy (Verified 05/27/16 14:50) Past Medical History - Past Medical History Cardiac Medical History: Denies: Hx Coronary Artery Disease, Hx Heart Attack, Hx Hypertension Pulmonary Medical History: Reports: Hx Asthma, Hx Sleep Apnea Denies: Hx Bronchitis, Hx COPD, Hx Pneumonia Neurological Medical History: Denies: Hx Cerebrovascular Accident, Hx Seizures Endocrine Medical History: Denies: Hx Diabetes Mellitus Type 1, Hx Diabetes Mellitus Type 2 Renal/ Medical History: Reports: Hx Ovarian Cysts. Denies: Hx Peritoneal Dialysis GI Medical History: Reports: Hx Gastroesophageal Reflux Disease Musculoskeltal Medical History: Denies Hx Arthritis Psychiatric Medical History: Reports: Hx Anxiety, Hx Attention Deficit Hyperactivity Disorder, Hx Depression Past Surgical History: Reports: Hx Adenoidectomy, Hx Gynecologic Surgery - R ovarian cyst 2010 Uterine fibroid removal 2009 in [place]., Hx Tonsillectomy - Immunizations Hx Diphtheria, Pertussis, Tetanus Vaccination: Yes - 06/2011 Physical Exam - Vital signs Vitals: Temp Pulse Resp BP Pulse Ox 98.5 F 98 20 152/86 H 98 06/09/16 18:38 06/09/16 18:38 06/09/16 18:38 06/09/16 18:38 06/09/16 18:38 Course - Vital Signs Vital signs: Temp Pulse Resp BP Pulse Ox 98.5 F 98 20 152/86 H 98 06/09/16 18:38 06/09/16 18:38 06/09/16 18:38 06/09/16 18:38 06/09/16 18:38
--- NOTE | 2016-06-09 19:51 | EKG REPORT ---
SEVERITY:- NORMAL ECG - SINUS RHYTHM : Confirmed by: Luis Eduardo Medrano MD 09-Jun-2016 19:50:51
[2016-06-09 20:29] LABS: ABSOLUTE EOSINOPHILS # (AUTO) 0.2 10^3/uL (0.0-0.6); ABSOLUTE LYMPHOCYTES (AUTO) 2.5 10^3/uL (0.5-4.7); ABSOLUTE MONOCYTES (AUTO) 0.5 10^3/uL (0.1-1.4); ABSOLUTE NEUT (AUTO) 6.5 10^3/uL (1.7-8.2); BASOPHILS % (AUTO) 0.3 % (0-2); EOSINOPHILS % (AUTO) 1.7 % (0-6); HEMATOCRIT 33.2 % (36.0-47.0); HEMOGLOBIN 10.7 g/dL (12.0-15.5); HGB HCT DIFFERENCE -1.1; LYMPHOCYTES % (AUTO) 25.8 % (13-45); MEAN CORPUSCULAR HEMOGLOBIN 27.6 pg (27.0-33.4); MEAN CORPUSCULAR HGB CONC 32.2 g/dL (32.0-36.0); MEAN CORPUSCULAR VOLUME 86 fl (80-97); MONOCYTES % (AUTO) 4.9 % (3-13); RED BLOOD COUNT 3.88 10^6/uL (3.72-5.28); RED CELL DISTRIBUTION WIDTH 15.8 % (11.5-14.0); SEGMENTED NEUTROPHILS % (AUTO) 67.3 % (42-78); WHITE BLOOD COUNT 9.6 10^3/uL (4.0-10.5)
[2016-06-09 20:34] LABS: APPEARANCE,URINE SLIGHTLY-CLOUDY; BILIRUBIN,URINE NEGATIVE (NEGATIVE); GLUCOSE, URINE NEGATIVE (NEGATIVE); KETONES,URINE NEGATIVE (NEGATIVE); LEUKOCYTE ESTERASE,URINE NEGATIVE (NEGATIVE); NITRITE,URINE NEGATIVE (NEGATIVE); PROTEIN,URINE NEGATIVE (NEGATIVE); UROBILINOGEN,URINE NEGATIVE mg/dL (<2.0)
[2016-06-09 20:49] LABS: ANION GAP 13 (5-19); BLOOD UREA NITROGEN 8 mg/dL (7-20); CALCIUM 9.9 mg/dL (8.4-10.2); CARBON DIOXIDE 26 mmol/L (22-30); CHLORIDE 102 mmol/L (98-107); CREATINE KINASE 111 U/L (30-135); CREATININE RESULT 0.73 mg/dL (0.52-1.25); GLUCOSE 113 mg/dL (75-110); POTASSIUM 4.7 mmol/L (3.6-5.0); SODIUM 140.9 mmol/L (137-145)
[2016-06-09] MEDS ORDERED: HYDROXYZINE PAMOATE 25 MG CAPSULE PO ONE (20:57)
--- NOTE | 2016-06-09 20:59 | ER Document Report ---
ED General - General Chief Complaint: Breathing Difficulty Stated Complaint: DIFFICULTY BREATHING Notes: Patient is a 31-year-old female with past medical history of hypertension, lipidemia, morbid obesity, palpitations currently on diltiazem who presents with concerns of ongoing palpitations associated panic attacks. Patient states that despite the fact she is taking diltiazem intermittent she continues to have episodic palpitations which trigger panic attacks. Nothing seems to improve or worsen her symptoms. States that she has a history of panic attacks at baseline and the palpitations do worsen the symptoms. She is currently following with Dr. Arndt. She denies any associated chest pain, vomiting, diaphoresis. Notes that she does become somewhat short of breath during these episodes but that it does resolve after she is able to calm herself down. Denies any history of DVT or pulmonary embolus. She does not use estrogen. She denies any symptoms at the time of my assessment. TRAVEL OUTSIDE OF THE [place] IN LAST 30 DAYS: No - Related Data Allergies/Adverse Reactions: amoxicillin [Amoxicillin] Allergy (Verified 05/27/16 14:50) benzonatate [From Tessalon Perles] Allergy (Verified 05/27/16 14:50) Penicillins Allergy (Verified 05/27/16 14:50) Past Medical History - General Information source: Patient - Social History Smoking Status: Never Smoker Frequency of alcohol use: None Drug Abuse: None Lives with: Family Family History: Reviewed & Not Pertinent, Other - Brother with blood clots - Past Medical History Cardiac Medical History: Denies: Hx Coronary Artery Disease, Hx Heart Attack, Hx Hypertension Pulmonary Medical History: Reports: Hx Asthma, Hx Sleep Apnea Denies: Hx Bronchitis, Hx COPD, Hx Pneumonia Neurological Medical History: Denies: Hx Cerebrovascular Accident, Hx Seizures Endocrine Medical History: Denies: Hx Diabetes Mellitus Type 1, Hx Diabetes Mellitus Type 2 Renal/ Medical History: Reports: Hx Ovarian Cysts. Denies: Hx Peritoneal Dialysis GI Medical History: Reports: Hx Gastroesophageal Reflux Disease Musculoskeltal Medical History: Denies Hx Arthritis Psychiatric Medical History: Reports: Hx Anxiety, Hx Attention Deficit Hyperactivity Disorder, Hx Depression Past Surgical History: Reports: Hx Adenoidectomy, Hx Gynecologic Surgery - R ovarian cyst 2010 Uterine fibroid removal 2010 in [place]., Hx Tonsillectomy - Immunizations Hx Diphtheria, Pertussis, Tetanus Vaccination: Yes - 06/2011 Review of Systems - Review of Systems Notes: Constitutional: Negative for fever. HENT: Negative for sore throat. Eyes: Negative for visual changes. Cardiovascular: Negative for chest pain. Positive for palpitations Respiratory: Negative for shortness of breath. Gastrointestinal: Negative for abdominal pain, vomiting or diarrhea. Genitourinary: Negative for dysuria. Musculoskeletal: Negative for back pain. Skin: Negative for rash. Neurological: Negative for headaches, weakness or numbness. 10 point ROS negative except as marked above and in HPI. Physical Exam - Vital signs Vitals: Temp Pulse Resp BP Pulse Ox 98.5 F 98 20 152/86 H 98 06/09/16 18:38 06/09/16 18:38 06/09/16 18:38 06/09/16 18:38 06/09/16 18:38 Interpretation: Hypertensive Notes: PHYSICAL EXAMINATION: GENERAL: Morbidly obese. Well-appearing, well-nourished and in no acute distress. HEAD: Atraumatic, normocephalic. EYES: Pupils equal round and reactive to light, extraocular movements intact, sclera anicteric, conjunctiva are normal. ENT: nares patent, oropharynx clear without exudates. Moist mucous membranes. NECK: Normal range of motion, supple without lymphadenopathy LUNGS: Breath sounds clear to auscultation bilaterally and equal. No wheezes rales or rhonchi. HEART: Regular rate and rhythm without murmurs ABDOMEN: Morbidly obese abdomen. Soft, nontender, normoactive bowel sounds. No guarding, no rebound. No masses appreciated. EXTREMITIES: Normal range of motion, no pitting or edema. No cyanosis. NEUROLOGICAL: No focal neurological deficits. Moves all extremities spontaneously and on command. PSYCH: Normal mood, normal affect. SKIN: Warm, Dry, normal turgor, no rashes or lesions noted. Course - Re-evaluation Re-evalutation: 06/09/16 20:52 Patient presents complaining of ongoing intermittent palpitations associated panic attacks. He shouldn't is currently followed by Dr. Arndt for her recurrent palpitations and is on diltiazem as needed for these palpitations. On arrival heart rate is within normal limits. She is in no distress and EKG is overall unremarkable with unchanged from prior assessment. Physical examination unremarkable with the exception of morbid obesity. Lungs are clear. I do not suspect an acute pulmonary embolus based on exam and history. History is not consistent with an acute asthma exacerbation. Patient is asymptomatic, my assessment. Laboratory sent in triage as well as chest x-ray are noted to be normal. Of note, patient does have very frequent visits to the emergency department for multiple complaints in the section her 10th visit to this emergency departments since the beginning of 2016. Moreover patient has had extensive imaging studies done having over 8 CTs of her chest, abdomen and pelvis the last 3 years. I discussed at length with the patient the urgent need for weight loss that she is over 300 pounds with a BMI of 60 this is very likely contributing to her multitude of issues that include dysmenorrhea, sleep apnea, diabetes, hypertension, hyperlipidemia, chronic back pain requiring narcotic pain medications, depression, and anxiety with associated panic attacks. At this time do not suspect an acute life-threatening pathology as cause of today's presentation. At this time will discharge with return precautions and follow-up recommendations. Verbal discharge instructions given a the bedside and opportunity for questions given. Medication warnings reviewed. Patient is in agreement with this plan and has verbalized understanding of return precautions and the need for primary care follow-up in the next 24-72 hours. - Vital Signs Vital signs: Temp Pulse Resp BP Pulse Ox 98.5 F 98 20 152/86 H 98 06/09/16 18:38 06/09/16 18:38 06/09/16 18:38 06/09/16 18:38 06/09/16 18:38 - Laboratory Result Diagrams: 06/09/16 19:50 06/09/16 19:50 Laboratory results interpreted by me: 06/09/16 06/09/16 19:50 19:50 Hgb 10.7 L Hct 33.2 L RDW 15.8 H Glucose 113 H - Diagnostic Test Radiology reviewed: Image reviewed, Reports reviewed Radiology results interpreted by me: 06/09/16 20:55 Chest x-ray: No acute infiltrates - EKG Interpretation by Me Additional EKG results interpreted by me: 06/09/16 20:55 Normal sinus rhythm. Rate 80. No ST elevations or depressions. QTC is 425. Discharge - Discharge Clinical Impression: Palpitations Condition: Good Disposition: HOME, SELF-CARE Additional Instructions: Please follow-up closely with cardiology regarding your palpitations. It may take some time to adjust your medications to the point were you are no longer having symptomatic palpitations. You are being started on a medication called hydroxyzine to use as needed for associated anxiety. Return if you pass out, have shortness of breath, persistent vomiting, develop significant chest pain, or have any other symptoms that are concerning to you. Prescriptions: Hydroxyzine HCl [Atarax 25 mg Tablet] 1 - 2 tab PO TID PRN #60 tablet PRN Reason:
[2016-06-09 21:09] LABS: TROPONIN I < 0.012 ng/mL
[2016-06-09 21:57] VITALS: BP 140/94
== END 2016-06-09 21:56 | disposition home or self-care (01) ==
LOC: ER 18:37
DX: R00.2 Palpitations (principal); R06.02 Shortness of breath; I10 Essential (primary) hypertension; E78.5 Hyperlipidemia, unspecified; E66.01 Morbid (severe) obesity due to excess calories; Z79.899 Other long term (current) drug therapy
CPT/HCPCS: 36415; 71020; 80048; 81001; 81025; 82550; 83880; 84484; 85025; 93005; 93010; 99285

== ENCOUNTER → 2016-07-11 | Outpatient (CLI) | payer OTHER ==
[2016-07-11 12:17] LABS: CHOLESTEROL 166.84 mg/dL (0-200); Direct HDL 41 mg/dL (>40); TRIGLYCERIDES 110 mg/dL (<150)
[2016-07-11 12:27] LABS: DIRECT LDL 91 mg/dL (<100)
== END ==
LOC: CCC 11:03
DX: E66.9 Obesity, unspecified (principal)
CPT/HCPCS: 36415; 80061; 83036; 84443

== ENCOUNTER 2016-09-11 12:00 | Emergency (ER) | payer SELFPAY ==
--- NOTE | 2016-09-11 12:17 | ER Document Report ---
ED Medical Screen (RME) - General Chief Complaint: Abdominal Pain Stated Complaint: DIARRHEA,ABDOMINAL PAIN Mode of Arrival: Ambulatory Information source: Patient TRAVEL OUTSIDE OF THE [place] IN LAST 30 DAYS: No - HPI Onset: Other - 3 DAYS Onset/Duration: Sudden Quality of pain: Cramping Severity: Moderate Associated Symptoms: Diarrhea, Nausea, Shortness of breath. denies: Chills, Fever Exacerbated by: Food Relieved by: Denies Similar symptoms previously: No Recently seen / treated by doctor: Yes - PCP, 2 d AGO, Rx FOR BRONCHITIS - Related Data Smoking: Non-smoker Frequency of alcohol use: None Drug Abuse: None Allergies/Adverse Reactions: amoxicillin [Amoxicillin] Allergy (Verified 09/11/16 12:04) benzonatate [From Tessalon Perles] Allergy (Verified 09/11/16 12:04) Penicillins Allergy (Verified 09/11/16 12:04) Past Medical History - General Information source: Patient - Social History Chew tobacco use (# tins/day): No Frequency of alcohol use: None Drug Abuse: None Family history: None - Past Medical History Cardiac Medical History: Denies: Hx Coronary Artery Disease, Hx Heart Attack, Hx Hypertension Pulmonary Medical History: Reports: Hx Asthma, Hx Sleep Apnea Denies: Hx Bronchitis, Hx COPD, Hx Pneumonia Neurological Medical History: Denies: Hx Cerebrovascular Accident, Hx Seizures Endocrine Medical History: Denies: Hx Diabetes Mellitus Type 1, Hx Diabetes Mellitus Type 2 Renal/ Medical History: Reports: Hx Ovarian Cysts. Denies: Hx Peritoneal Dialysis GI Medical History: Reports: Hx Gastroesophageal Reflux Disease - gerd Musculoskeltal Medical History: Denies Hx Arthritis Psychiatric Medical History: Reports: Hx Anxiety, Hx Attention Deficit Hyperactivity Disorder, Hx Depression Past Surgical History: Reports: Hx Adenoidectomy, Hx Gynecologic Surgery - R ovarian cyst 2010 Uterine fibroid removal 2010 in [place]., Hx Tonsillectomy - Immunizations Hx Diphtheria, Pertussis, Tetanus Vaccination: Yes - 06/2011 Review of Systems - Review of Systems Constitutional: See HPI EENT: No symptoms reported Cardiovascular: No symptoms reported. denies: Syncope, Lightheaded Respiratory: See HPI Gastrointestinal: See HPI Genitourinary: No symptoms reported Musculoskeletal: Back pain - CHRONIC Neurological/Psychological: No symptoms reported Physical Exam - Vital signs Vitals: Temp Pulse Resp BP Pulse Ox 98.2 F 80 20 135/85 H 97 09/11/16 12:04 09/11/16 12:04 09/11/16 12:04 09/11/16 12:04 09/11/16 12:04 Interpretation: Normal - General General appearance: Appears well, Alert In distress: None - Respiratory Respiratory status: No respiratory distress Breath sounds: Normal. No: Rales, Rhonchi, Wheezing Course - Vital Signs Vital signs: Temp Pulse Resp BP Pulse Ox 98.2 F 80 20 135/85 H 97 09/11/16 12:04 09/11/16 12:04 09/11/16 12:04 09/11/16 12:04 09/11/16 12:04
[2016-09-11 12:41] LABS: ABSOLUTE BASOPHILS # (AUTO) 0.2 10^3/uL (0.0-0.2); ABSOLUTE EOSINOPHILS # (AUTO) 0.2 10^3/uL (0.0-0.6); ABSOLUTE LYMPHOCYTES (AUTO) 2.6 10^3/uL (0.5-4.7); ABSOLUTE MONOCYTES (AUTO) 0.5 10^3/uL (0.1-1.4); BASOPHILS % (AUTO) 1.5 % (0-2); EOSINOPHILS % (AUTO) 1.6 % (0-6); HEMOGLOBIN 11.2 g/dL (12.0-15.5); HGB HCT DIFFERENCE -2.4; LYMPHOCYTES % (AUTO) 25.2 % (13-45); MEAN CORPUSCULAR HEMOGLOBIN 26.3 pg (27.0-33.4); MEAN CORPUSCULAR HGB CONC 31.1 g/dL (32.0-36.0); MEAN CORPUSCULAR VOLUME 85 fl (80-97); MONOCYTES % (AUTO) 4.9 % (3-13); RED BLOOD COUNT 4.25 10^6/uL (3.72-5.28); RED CELL DISTRIBUTION WIDTH 17.1 % (11.5-14.0); SEGMENTED NEUTROPHILS % (AUTO) 66.8 % (42-78); WHITE BLOOD COUNT 10.5 10^3/uL (4.0-10.5)
--- NOTE | 2016-09-11 12:41 | ER Document Report ---
ED General - General Mode of Arrival: Ambulatory TRAVEL OUTSIDE OF THE U.S. IN LAST 30 DAYS: No - HPI Onset: Other - Refer to HPI notes Similar symptoms previously: Yes Recently seen / treated by doctor: Yes <DANK MAZARIEGOS - Last Filed: 09/11/16 13:25> <VIRA ANNE - Last Filed: 09/11/16 15:16> - General Chief Complaint: Abdominal Pain Stated Complaint: DIARRHEA,ABDOMINAL PAIN Time Seen by Provider: 09/11/16 12:38 Notes: Patient is a 31-year old female presenting to the emergency department for abdominal pain, diarrhea, and nausea x4 days. Patient states that her abdominal cramping begins right before she has a bowel movement. Patient's abdominal pain is constant and described as sharp, stabbing and cramping. Patient states she has had 5 episodes of diarrhea today and she has had more than 7 episodes a day for the past 4 days. Patient also complains of some nausea. Patient's pain is exacerbated with food. Patient did see the [facility] and was told to drink more water because she could possibly be dehydrated; patient was told to come to the emergency department if her symptoms persisted or got worse. Patient states she tried Imodium, and antiacid and Tylenol for her abdominal pain and diarrhea. Patient denies any fever, chills, or vomiting. Patient also complains of some shortness of breath and states that she took. This morning and she used her rescue inhaler as well; patient states the inhaler made her difficulty breathing worse and caused some wheezing. Makeda is in no respiratory distress. Patient's last menstrual period was in February and she states she has spotted some since then. Makeda states this is somewhat abnormal for her to go without a period for so long and she states she is being tested for PCOS. Patient also has a history of ADHD, depression, anxiety, GERD, and hypertension. Patient denies any history of hypercholesterolemia or diabetes mellitus. According to the [place] Substance Reporting System, this patient receives prescriptions for 120 Oxycodone 10 mg and 60 Clonazepam 0.5 mg each month. ( DANK MAZARIEGOS) - Related Data Allergies/Adverse Reactions: amoxicillin [Amoxicillin] Allergy (Verified 09/11/16 12:04) benzonatate [From Tessalon Perles] Allergy (Verified 09/11/16 12:04) Penicillins Allergy (Verified 09/11/16 12:04) Past Medical History - General Information source: Patient - Social History Smoking Status: Never Smoker Cigarette use (# per day): No Chew tobacco use (# tins/day): No Frequency of alcohol use: None Drug Abuse: None Occupation: Unemployed Family History: Other - Brother with blood clots Patient has suicidal ideation: No Patient has homicidal ideation: No - Past Medical History Cardiac Medical History: Reports: Hx Hypertension Pulmonary Medical History: Reports: Hx Asthma, Hx Sleep Apnea Renal/ Medical History: Reports: Hx Ovarian Cysts GI Medical History: Reports: Hx Gastroesophageal Reflux Disease Psychiatric Medical History: Reports: Hx Anxiety, Hx Attention Deficit Hyperactivity Disorder, Hx Depression Past Surgical History: Reports: Hx Adenoidectomy, Hx Gynecologic Surgery - R ovarian cyst 2010 Uterine fibroid removal 2009 in [place]., Hx Tonsillectomy - Immunizations Hx Diphtheria, Pertussis, Tetanus Vaccination: Yes - 06/2011 <DANK MAZARIEGOS - Last Filed: 09/11/16 13:25> Review of Systems - Review of Systems Constitutional: No symptoms reported. denies: Chills, Fever EENT: No symptoms reported Cardiovascular: No symptoms reported Respiratory: See HPI, Short of breath Gastrointestinal: See HPI, Abdominal pain, Diarrhea, Nausea. denies: Vomiting Genitourinary: No symptoms reported Female Genitourinary: No symptoms reported Musculoskeletal: No symptoms reported Skin: No symptoms reported Hematologic/Lymphatic: No symptoms reported Neurological/Psychological: No symptoms reported -: Yes All other systems reviewed and negative <DANK MAZARIEGOS - Last Filed: 09/11/16 13:25> Physical Exam <DANK MAZARIEGOS - Last Filed: 09/11/16 13:25> <VIRA ANNE - Last Filed: 09/11/16 15:16> - Vital signs Vitals: Temp Pulse Resp BP Pulse Ox 98.2 F 80 20 135/85 H 97 09/11/16 12:04 09/11/16 12:04 09/11/16 12:04 09/11/16 12:04 09/11/16 12:04 - Notes Notes: GENERAL: Alert, interacts well. No acute distress. HEAD: Normocephalic, atraumatic. EYES: Appear normal. Pupils equal, round, and reactive to light. ENT: Moist mucus membranes, tongue midline, normal appearing oropharynx. NECK: Full range of motion. Supple. Trachea midline. LUNGS: Clear to auscultation bilaterally, no wheezes, rales, or rhonchi. No shortness of breath. Patient is speaking rapidly. No respiratory distress. 96% oxygen saturation on RA. HEART: Regular rate and rhythm. No murmurs, gallops, or rubs. ABDOMEN: Morbidly obese, soft, non-tender. Non-distended. Normal bowel sounds. EXTREMITIES: Moves all 4 extremities spontaneously. Normal strength. No edema. NEUROLOGICAL: Alert and oriented x3. Normal speech. No focal neurological deficits. GSC 15. PSYCH: Normal affect, normal mood. SKIN: Warm, dry, normal turgor. No rashes or lesions noted. (DANK MAZARIEGOS) Course - Laboratory Result Diagrams: 09/11/16 12:24 09/11/16 12:24 <DANK MAZARIEGOS - Last Filed: 09/11/16 13:25> - Laboratory Result Diagrams: 09/11/16 12:24 09/11/16 12:24 - Diagnostic Test Radiology reviewed: Image reviewed, Reports reviewed - 2 view abdominal films do not show an acute process <VIRA ANNE - Last Filed: 09/11/16 15:16> - Re-evaluation Re-evalutation: 09/11/16 14:56 The patient's lab work is unremarkable. Flat and upright abdominal film is unremarkable. Patient's vital signs and physical exam do not support the claim of shortness of breath. 09/11/16 15:15 Patient was requesting a rescue inhaler at discharge. A prescription will be provided. (VIRA ANNE) - Vital Signs Vital signs: Temp Pulse Resp BP Pulse Ox 98.4 F 80 16 128/79 H 96 09/11/16 14:27 09/11/16 14:27 09/11/16 14:27 09/11/16 14:27 09/11/16 14:27 - Laboratory Laboratory results interpreted by mn: 09/11/16 09/11/16 12:24 12:24 Hgb 11.2 L MCH 26.3 L MCHC 31.1 L RDW 17.1 H Total Protein 8.6 H Discharge <DANK MAZARIEGOS - Last Filed: 09/11/16 13:25> <OMID,VIRA - Last Filed: 09/11/16 15:16> - Discharge Clinical Impression: Nausea vomiting and diarrhea Dyspnea Qualifiers: Dyspnea type: unspecified Qualified Code(s): R06.00 - Dyspnea, unspecified Abdominal pain Qualifiers: Abdominal location: generalized Qualified Code(s): R10.84 - Generalized abdominal pain Condition: Stable Disposition: HOME, SELF-CARE Additional Instructions: Gastroenteritis: Your symptoms may be due to gastroenteritis. This is an irritation of the stomach and intestinal tract. It's usually caused by a virus, but can also be caused by bacteria, toxins that cause food poisoning, or excessive alcohol intake. Symptoms may include fever, painful abdominal cramps, nausea, vomiting , and diarrhea. Start with small amounts (two to six ounces) of clear liquids (soft drinks , herb teas, broth, etc). Try to take fluids frequently even if you are vomiting, to prevent dehydration. When liquids are being consumed successfully , advance to small amounts of bland food (mashed potato, toast) for 6 - 12 hours. Gastroenteritis rarely requires medication. It goes away by itself. Use good handwashing so you don't spread germs. Wash underwear in very hot water. If symptoms are severe, talk to the doctor. Call your physician if blood appears in your vomitus or stool, if vomiting lasts longer than 24 hours, if the abdominal pain worsens or becomes localized to one area, or if you develop high fever. Abdominal Pain: There are many causes of abdominal pain. Pain can mean a serious problem requiring surgery (such as appendicitis). It can also be an innocent problem that goes away on its own (such as a viral infection). Often, time must pass to determine the cause of pain. The physician does not feel that hospitalization is necessary, at present. Things may change within the next 24 hours. Call the doctor or come back for re- examination if any problems occur, such as: (1) Pain that becomes more severe, steady, or becomes concentrated in one specific area. Also, pain that is more severe with movement or coughing. (2) Vomiting that persists or becomes more frequent. (3) Blood in the vomitus, urine, or bowel movements. Blood in the stool may have a tarry or black appearance. (4) Shaking chills or fever greater than 100 degrees F. (5) The abdomen becomes more distended or swollen. (6) Bowel movements cease. (7) Failure to improve as expected. //////////////////////////////////////////////////////////////////////////////// //////////////////////////////////////////////////////////////////////////////// /////////////////// Continue your regular medications, including your pain medication. Drink plenty of cool clear liquids. Follow-up with your local medical provider if not improving. RETURN TO THE EMERGENCY ROOM IF ANY NEW OR WORSENING SYMPTOMS. Prescriptions: Albuterol Sulfate [Proair HFA] 1 - 2 puff IH Q4 PRN #1 inhaler PRN Reason: Scribe Attestation: 09/11/16 14:59 I personally performed the services described in the documentation, reviewed and edited the documentation which was dictated to the scribe in my presence, and it accurately records my words and actions. (VIRA ANNE) Scribe Documentation - Scribe Written by Jose David:: My Jose David Talbert, 09/11/2016 13:10 acting as scribe for :: Omid <DANK MAZARIEGOS - Last Filed: 09/11/16 13:25>
--- NOTE | 2016-09-11 12:46 | RADIOLOGY REPORT (SQ) ---
EXAM DESCRIPTION: CHEST PA/LAT COMPLETED DATE/TIME: 09/11/2016 12:35 pm REASON FOR STUDY: dyspnea COMPARISON: 06/09/2016. EXAM PARAMETERS: NUMBER OF VIEWS: two views TECHNIQUE: Digital Frontal and Lateral radiographic views of the chest acquired. RADIATION DOSE: NA LIMITATIONS: none FINDINGS: LUNGS AND PLEURA: No opacities, masses or pneumothorax. No pleural effusion. MEDIASTINUM AND HILAR STRUCTURES: No masses or contour abnormalities. HEART AND VASCULAR STRUCTURES: Heart normal size. No evidence for failure. BONES: No acute findings. HARDWARE: None in the chest. OTHER: No other significant finding. IMPRESSION: NO SIGNIFICANT RADIOGRAPHIC FINDING IN THE CHEST. TECHNICAL DOCUMENTATION: JOB ID: [id number] [employer]- All Rights Reserved
[2016-09-11 12:48] LABS: APPEARANCE,URINE SLIGHTLY-CLOUDY; BILIRUBIN,URINE NEGATIVE (NEGATIVE); GLUCOSE, URINE NEGATIVE (NEGATIVE); KETONES,URINE NEGATIVE (NEGATIVE); LEUKOCYTE ESTERASE,URINE NEGATIVE (NEGATIVE); NITRITE,URINE NEGATIVE (NEGATIVE); PROTEIN,URINE NEGATIVE (NEGATIVE); URINE SPECIFIC GRAVITY 1.028; UROBILINOGEN,URINE NEGATIVE mg/dL (<2.0)
[2016-09-11] MEDS ORDERED: DIPHENOXYLATE HCL/ATROP SULF 2.5-0.025 MG TABLET PO ONE (12:54)
[2016-09-11 12:58] LABS: ALANINE AMINOTRANSFERASE 32 U/L (9-52); ALKALINE PHOSPHATASE 120 U/L (38-126); ANION GAP 11 (5-19); ASPARTATE AMINO TRANSFERASE 22 U/L (14-36); BILIRUBIN,DIRECT 0.3 mg/dL (0.0-0.4); BILIRUBIN,TOTAL 0.5 mg/dL (0.2-1.3); BLOOD UREA NITROGEN 10 mg/dL (7-20); CALCIUM 9.1 mg/dL (8.4-10.2); CARBON DIOXIDE 27 mmol/L (22-30); CHLORIDE 103 mmol/L (98-107); CREATININE RESULT 0.86 mg/dL (0.52-1.25); GLUCOSE 98 mg/dL (75-110); POTASSIUM 4.1 mmol/L (3.6-5.0); SODIUM 140.5 mmol/L (137-145); TOTAL PROTEIN 8.6 g/dL (6.3-8.2)
--- NOTE | 2016-09-11 14:42 | RADIOLOGY REPORT (SQ) ---
EXAM DESCRIPTION: ABDOMEN 2 VIEWS COMPLETED DATE/TIME: 09/11/2016 2:25 pm REASON FOR STUDY: SOB, abd pain, diarrhea COMPARISON: None. NUMBER OF VIEWS: Two views. TECHNIQUE: Supine and erect/decubitus radiographic images of the abdomen acquired. LIMITATIONS: None. FINDINGS: FREE AIR: None. No abnormal gas collections. LUNG BASES: Clear. BOWEL GAS PATTERN: Nonobstructive pattern. No dilated loops or air fluid levels. CALCIFICATIONS: No suspicious calcifications. SOFT TISSUES: No gross mass or suggestion of organomegaly. HARDWARE: None in the abdomen. BONES: No acute fracture. No worrisome bone lesions. OTHER: No other significant finding. IMPRESSION: NO RADIOGRAPHIC EVIDENCE FOR ACUTE ABDOMINAL DISEASE. TECHNICAL DOCUMENTATION: JOB ID: [id number] [employer]- All Rights Reserved
[2016-09-11 15:22] VITALS: BP 132/65
== END 2016-09-11 15:23 | disposition home or self-care (01) ==
LOC: ER 12:00
DX: R10.84 Generalized abdominal pain (principal); R06.00 Dyspnea, unspecified; R19.7 Diarrhea, unspecified; R11.2 Nausea with vomiting, unspecified
CPT/HCPCS: 99284; 36415; 84703; 85025; 80053; 81001; 74020; 71020; J3490

== ENCOUNTER → 2016-09-26 | Outpatient (CLI) | payer OTHER ==
[2016-09-27 06:39] LABS: DEHYDROEPIANDROSTERONE SULFATE 137.8 ug/dL (84.8-378.0)
[2016-09-27 07:27] LABS: FOLLICLE STIMULATING HORMONE 7.2 mIU/mL (.); LUTEINIZING HORMONE 5.6 mIU/mL (.); PROLACTIN 15.2 ng/mL (4.8-23.3)
[2016-09-30 07:44] LABS: 17-ALPHA HYDROXYPROGESTERONE <10 ng/dL (.)
== END ==
LOC: OD 12:17
DX: N92.6 Irregular menstruation, unspecified (principal); E28.2 Polycystic ovarian syndrome
CPT/HCPCS: 36415; 82627; 83001; 83002; 83498; 84146; 84403; 84702

== ENCOUNTER 2016-12-10 14:22 | Emergency (ER) | payer SELFPAY ==
[2016-12-10] MEDS ORDERED: ONDANSETRON 4 MG TAB.RAPDIS SL ONE (15:51)
[2016-12-10] MEDS ORDERED: HYDROCODONE/ACETAMINOPHEN 5-325 MG TABLET PO ONE (15:51)
--- NOTE | 2016-12-10 15:55 | ER Document Report ---
ED Medical Screen (RME) - General Chief Complaint: Vaginal Bleeding Stated Complaint: ABDOMINAL PAIN Time Seen by Provider: 12/10/16 14:38 Mode of Arrival: Ambulatory Information source: Patient TRAVEL OUTSIDE OF THE U.S. IN LAST 30 DAYS: No - HPI Patient complains to provider of: Vaginal bleeding 3 months, nausea Notes: 12/10/16 15:54 Patient is a 31-year-old female presenting to the emergency room complaining of heavy vaginal bleeding has been going on for the past 3 months, she reports pelvic cramping as well and nausea - Related Data Allergies/Adverse Reactions: amoxicillin [Amoxicillin] Allergy (Verified 12/10/16 14:28) benzonatate [From Tessalon Perles] Allergy (Verified 12/10/16 14:28) Penicillins Allergy (Verified 12/10/16 14:28) Past Medical History - Social History Chew tobacco use (# tins/day): No Frequency of alcohol use: None Drug Abuse: None Family history: None - Past Medical History Cardiac Medical History: Reports: Hx Hypertension Denies: Hx Coronary Artery Disease, Hx Heart Attack Pulmonary Medical History: Reports: Hx Asthma, Hx Sleep Apnea Denies: Hx Bronchitis, Hx COPD, Hx Pneumonia Neurological Medical History: Denies: Hx Cerebrovascular Accident, Hx Seizures Endocrine Medical History: Denies: Hx Diabetes Mellitus Type 1, Hx Diabetes Mellitus Type 2 Renal/ Medical History: Reports: Hx Ovarian Cysts. Denies: Hx Peritoneal Dialysis GI Medical History: Reports: Hx Gastroesophageal Reflux Disease Musculoskeltal Medical History: Denies Hx Arthritis Psychiatric Medical History: Reports: Hx Anxiety, Hx Attention Deficit Hyperactivity Disorder, Hx Depression Past Surgical History: Reports: Hx Adenoidectomy, Hx Gynecologic Surgery - R ovarian cyst 2010 Uterine fibroid removal 2009 in [place]., Hx Tonsillectomy - Immunizations Hx Diphtheria, Pertussis, Tetanus Vaccination: Yes - 06/2011 Physical Exam - Vital signs Vitals: Temp Pulse Resp BP Pulse Ox 99.5 F 99 20 139/66 H 96 12/10/16 14:29 12/10/16 14:29 12/10/16 14:29 12/10/16 14:29 12/10/16 14:29 Course - Vital Signs Vital signs: Temp Pulse Resp BP Pulse Ox 99.5 F 99 20 139/66 H 96 12/10/16 14:29 12/10/16 14:29 12/10/16 14:29 12/10/16 14:29 12/10/16 14:29
[2016-12-10 16:55] LABS: ABSOLUTE EOSINOPHILS # (AUTO) 0.2 10^3/uL (0.0-0.6); ABSOLUTE LYMPHOCYTES (AUTO) 2.8 10^3/uL (0.5-4.7); ABSOLUTE MONOCYTES (AUTO) 0.7 10^3/uL (0.1-1.4); ABSOLUTE NEUT (AUTO) 7.6 10^3/uL (1.7-8.2); BASOPHILS % (AUTO) 0.3 % (0-2); EOSINOPHILS % (AUTO) 1.9 % (0-6); HEMATOCRIT 32.4 % (36.0-47.0); HEMOGLOBIN 10.5 g/dL (12.0-15.5); HGB HCT DIFFERENCE -0.9; MEAN CORPUSCULAR HEMOGLOBIN 27.8 pg (27.0-33.4); MEAN CORPUSCULAR HGB CONC 32.4 g/dL (32.0-36.0); MEAN CORPUSCULAR VOLUME 86 fl (80-97); RED BLOOD COUNT 3.78 10^6/uL (3.72-5.28); RED CELL DISTRIBUTION WIDTH 15.8 % (11.5-14.0); SEGMENTED NEUTROPHILS % (AUTO) 66.8 % (42-78); WHITE BLOOD COUNT 11.3 10^3/uL (4.0-10.5)
[2016-12-10 16:58] LABS: APPEARANCE,URINE CLEAR; BILIRUBIN,URINE NEGATIVE (NEGATIVE); GLUCOSE, URINE NEGATIVE (NEGATIVE); KETONES,URINE NEGATIVE (NEGATIVE); LEUKOCYTE ESTERASE,URINE NEGATIVE (NEGATIVE); NITRITE,URINE NEGATIVE (NEGATIVE); PROTEIN,URINE NEGATIVE (NEGATIVE); URINE SPECIFIC GRAVITY 1.015; UROBILINOGEN,URINE NEGATIVE mg/dL (<2.0)
[2016-12-10 17:14] LABS: ALANINE AMINOTRANSFERASE 30 U/L (9-52); ALBUMIN 3.7 g/dL (3.5-5.0); ALKALINE PHOSPHATASE 117 U/L (38-126); ANION GAP 15 (5-19); ASPARTATE AMINO TRANSFERASE 20 U/L (14-36); BILIRUBIN,DIRECT 0.4 mg/dL (0.0-0.4); BILIRUBIN,TOTAL 0.4 mg/dL (0.2-1.3); BLOOD UREA NITROGEN 8 mg/dL (7-20); CALCIUM 9.4 mg/dL (8.4-10.2); CARBON DIOXIDE 25 mmol/L (22-30); CHLORIDE 103 mmol/L (98-107); CREATININE RESULT 0.78 mg/dL (0.52-1.25); GLUCOSE 83 mg/dL (75-110); LIPASE 54.8 U/L (23-300); POTASSIUM 4.2 mmol/L (3.6-5.0); SODIUM 142.5 mmol/L (137-145); TOTAL PROTEIN 7.3 g/dL (6.3-8.2)
--- NOTE | 2016-12-10 17:58 | ER Document Report ---
ED GI/ - General Chief Complaint: Vaginal Bleeding Stated Complaint: ABDOMINAL PAIN Time Seen by Provider: 12/10/16 14:38 Mode of Arrival: Ambulatory Information source: Patient Notes: 31 yo female G0, persistent vaginal bleeding (8 pads per day) and pelvic pain, sharp at times since september, despite being on 2nd round of provera started dec 01 by [facility], OC's did not work. Hx fibroid and bleeding 2009, after it's removal, recurred 2011 size of quarter. Abstinant for years. Saw dr. garcia in september. Tired. 8 thin pads per day. No clots. TRAVEL OUTSIDE OF THE [place].S. IN LAST 30 DAYS: No - Related Data Allergies/Adverse Reactions: amoxicillin [Amoxicillin] Allergy (Verified 12/10/16 14:28) benzonatate [From Tessalon Perles] Allergy (Verified 12/10/16 14:28) Penicillins Allergy (Verified 12/10/16 14:28) Past Medical History - General Information source: Patient - Social History Smoking Status: Never Smoker Chew tobacco use (# tins/day): No Frequency of alcohol use: None Drug Abuse: None Family History: Other - Brother with blood clots - Past Medical History Cardiac Medical History: Reports: Hx Hypertension Denies: Hx Coronary Artery Disease, Hx Heart Attack Pulmonary Medical History: Reports: Hx Asthma, Hx Sleep Apnea Denies: Hx Bronchitis, Hx COPD, Hx Pneumonia Neurological Medical History: Denies: Hx Cerebrovascular Accident, Hx Seizures Endocrine Medical History: Denies: Hx Diabetes Mellitus Type 1, Hx Diabetes Mellitus Type 2 Renal/ Medical History: Reports: Hx Ovarian Cysts. Denies: Hx Peritoneal Dialysis GI Medical History: Reports: Hx Gastroesophageal Reflux Disease Musculoskeltal Medical History: Denies Hx Arthritis Psychiatric Medical History: Reports: Hx Anxiety, Hx Attention Deficit Hyperactivity Disorder, Hx Depression Past Surgical History: Reports: Hx Adenoidectomy, Hx Gynecologic Surgery - R ovarian cyst 2010 Uterine fibroid removal 2009 in [place]., Hx Tonsillectomy - Immunizations Hx Diphtheria, Pertussis, Tetanus Vaccination: Yes - 06/2011 Review of Systems - Review of Systems Constitutional: No symptoms reported EENT: No symptoms reported Cardiovascular: No symptoms reported Respiratory: No symptoms reported Gastrointestinal: No symptoms reported Genitourinary: No symptoms reported Female Genitourinary: See HPI Musculoskeletal: No symptoms reported Skin: No symptoms reported Hematologic/Lymphatic: No symptoms reported Neurological/Psychological: No symptoms reported Physical Exam - Vital signs Vitals: Temp Pulse Resp BP Pulse Ox 99.5 F 99 20 139/66 H 96 12/10/16 14:29 12/10/16 14:29 12/10/16 14:29 12/10/16 14:29 12/10/16 14:29 Interpretation: Normal - Notes Notes: obese bmi 58 - General General appearance: Appears well, Alert - HEENT Head: Normocephalic, Atraumatic Eyes: Normal Pupils: PERRL Neck: Supple. No: Lymphadenopathy, Thyromegally - Respiratory Respiratory status: No respiratory distress Chest status: Nontender Breath sounds: Normal Chest palpation: Normal - Cardiovascular Rhythm: Regular Heart sounds: Normal auscultation Murmur: No - Abdominal Inspection: Normal Distension: No distension Bowel sounds: Normal Tenderness: Nontender. No: Tender Organomegaly: No organomegaly - Back Back: Normal, Nontender. No: CVA tenderness - Extremities General upper extremity: Normal inspection, Nontender, Normal color, Normal ROM , Normal temperature General lower extremity: Normal inspection, Nontender, Normal color, Normal ROM , Normal temperature, Normal weight bearing. No: Aubree's sign - Neurological Neuro grossly intact: Yes Cognition: Normal Orientation: AAOx4 [place] Coma Scale Eye Opening: Spontaneous [place] Coma Scale Verbal: Oriented [place] Coma Scale Motor: Obeys Commands Marci Coma Scale Total: 15 Speech: Normal Motor strength normal: LUE, RUE, LLE, RLE Sensory: Normal - Psychological Associated symptoms: Normal affect, Normal mood - Skin Skin Temperature: Warm Skin Moisture: Dry Skin Color: Normal Course - Re-evaluation Re-evalutation: 12/10/16 17:58 pt in [place] 12/10/16 19:[address] Nadya Soliman the [facility]. She states that the patient needs to be seen at the [facility] office and get an endometrial biopsy I explained this to the patient. The patient is asking for something for the cramping. Her hemoglobin is 10.3 and she has been lower than that to 9.9. She has no dizziness at this time. - Vital Signs Vital signs: Temp Pulse Resp BP Pulse Ox 99.5 F 87 16 132/70 H 99 12/10/16 14:29 12/10/16 19:59 12/10/16 19:59 12/10/16 19:59 12/10/16 19:59 - Laboratory Result Diagrams: 12/10/16 16:18 12/10/16 16:18 Laboratory results interpreted by me: 12/10/16 12/10/16 16:10 16:18 WBC 11.3 H Hgb 10.5 L Hct 32.4 L RDW 15.8 H Urine Blood LARGE H Discharge - Discharge Clinical Impression: vaginal bleeding Uterine fibroid Qualifiers: Uterine leiomyoma location: intramural Qualified Code(s): D25.1 - Intramural leiomyoma of uterus Condition: Good Disposition: HOME, SELF-CARE Instructions: Pelvic Pain ([facility]), Vaginal Bleeding ([facility]) Additional Instructions: return to er if increased bleeding, dizziness any concerns see the obgyn in the office for endometrial biopsy Please complete the patient satisfaction survey if you get one, and return it.. If you do not receive a survey, then you can go to the [facility] website, [email or web address] and place your comments about your very good care. Thank you very much. It was a pleasure being your medical provider today. Forms: Return to Work Referrals: SAI SAVAGE MD [ACTIVE STAFF] - 12/12/16 (call for appointment this week)
--- NOTE | 2016-12-10 18:39 | RADIOLOGY REPORT (SQ) ---
EXAM DESCRIPTION: U/S NON OB PEL TV W/DOPPLER COMPLETED DATE/TIME: 12/10/2016 6:23 pm REASON FOR STUDY: heavy bleeding, pelvic pain COMPARISON: None. TECHNIQUE: Dynamic and static grayscale images acquired of the pelvis via transvaginal approach and recorded on PACS. Additional selected color Doppler and spectral images recorded. LIMITATIONS: None. FINDINGS: UTERUS: A 2.9 x 2.0 x 2.4 cm intramural versus submucosal fibroid is demonstrated. Uteru s is otherwise normal in appearance. ENDOMETRIAL STRIPE: The endometrial echo complex is diffusely thickened demonstrating active menstrua l flow on this examination. CERVIX: 3.1 cm. Incidental note is made of nabothian cysts. RIGHT OVARY: No abnormal masses. RIGHT OVARY DOPPLER: Normal arterial vascular flow without evidence for torsion. LEFT OVARY: No abnormal masses. LEFT OVARY DOPPLER: Normal arterial vascular flow without evidence for torsion. FREE FLUID: None noted. OTHER: No other significant finding. MEASUREMENTS: UTERUS: 8.3 x 4.9 x 4.9 cm ENDOMETRIAL STRIPE: 1.2 cm RIGHT OVARY: 2.1 x 1.7 x 1.2 cm LEFT OVARY: 2.2 x 1.3 x 1.6 cm IMPRESSION: Intramural versus submucosal fibroid in the setting of active menstrual bleeding. TECHNICAL DOCUMENTATION: JOB ID: [id number] [employer]- All Rights Reserved
[2016-12-10] MEDS ORDERED: HYDROCODONE/ACETAMINOPHEN 5-325 MG 6 TAB/DSPK PO PRN (19:45)
[2016-12-10 20:18] VITALS: BP 132/70
== END 2016-12-10 19:56 | disposition home or self-care (01) ==
LOC: ER 14:22
DX: D25.1 Intramural leiomyoma of uterus (principal); N93.9 Abnormal uterine and vaginal bleeding, unspecified; R10.2 Pelvic and perineal pain; I10 Essential (primary) hypertension; J45.909 Unspecified asthma, uncomplicated; Z88.0 Allergy status to penicillin; Z88.8 Allergy status to other drugs, medicaments and biological substances
CPT/HCPCS: 99284; 36415; 83690; 84703; 85025; 80053; 81001; 76830; 93976; S0119

== ENCOUNTER 2016-12-18 17:46 | Emergency (ER) | payer SELFPAY ==
[2016-12-18 18:37] LABS: ABSOLUTE EOSINOPHILS # (AUTO) 0.2 10^3/uL (0.0-0.6); ABSOLUTE LYMPHOCYTES (AUTO) 3.7 10^3/uL (0.5-4.7); ABSOLUTE MONOCYTES (AUTO) 0.5 10^3/uL (0.1-1.4); ABSOLUTE NEUT (AUTO) 7.3 10^3/uL (1.7-8.2); BASOPHILS % (AUTO) 0.4 % (0-2); EOSINOPHILS % (AUTO) 1.9 % (0-6); HEMATOCRIT 28.3 % (36.0-47.0); HEMOGLOBIN 9.3 g/dL (12.0-15.5); HGB HCT DIFFERENCE -0.4; LYMPHOCYTES % (AUTO) 31.3 % (13-45); MEAN CORPUSCULAR HEMOGLOBIN 28.2 pg (27.0-33.4); MEAN CORPUSCULAR HGB CONC 32.7 g/dL (32.0-36.0); MEAN CORPUSCULAR VOLUME 86 fl (80-97); MONOCYTES % (AUTO) 4.5 % (3-13); RED BLOOD COUNT 3.29 10^6/uL (3.72-5.28); RED CELL DISTRIBUTION WIDTH 16.6 % (11.5-14.0); SEGMENTED NEUTROPHILS % (AUTO) 61.9 % (42-78); WHITE BLOOD COUNT 11.8 10^3/uL (4.0-10.5)
--- NOTE | 2016-12-18 18:54 | ER Document Report ---
ED Medical Screen (RME) - General Chief Complaint: Dizziness Stated Complaint: VOMITING,LIGHT HEADED Time Seen by Provider: 12/18/16 18:04 Notes: This 31-year-old female complains of feeling dizzy, shortness of breath and nausea. She also complains of vaginal bleeding since August. She was seen here just over a week ago and told that she was "severely anemic", her hemoglobin was 10.5. She is [facility], [facility] and they try to make arrangements for [place]. I have greeted and performed a rapid initial assessment of this patient. A comprehensive ED assessment and evaluation of the patient, analysis of test results and completion of the medical decision making process will be conducted by additional ED providers. TRAVEL OUTSIDE OF THE [place]. IN LAST 30 DAYS: No - Related Data Allergies/Adverse Reactions: amoxicillin [Amoxicillin] Allergy (Verified 12/18/16 17:53) benzonatate [From Tessalon Perles] Allergy (Verified 12/18/16 17:53) Penicillins Allergy (Verified 12/18/16 17:53) Past Medical History - Social History Chew tobacco use (# tins/day): No Frequency of alcohol use: None Drug Abuse: None Family history: None - Past Medical History Cardiac Medical History: Reports: Hx Hypertension Denies: Hx Coronary Artery Disease, Hx Heart Attack Pulmonary Medical History: Reports: Hx Asthma, Hx Sleep Apnea Denies: Hx Bronchitis, Hx COPD, Hx Pneumonia Neurological Medical History: Denies: Hx Cerebrovascular Accident, Hx Seizures Endocrine Medical History: Denies: Hx Diabetes Mellitus Type 1, Hx Diabetes Mellitus Type 2 Renal/ Medical History: Reports: Hx Ovarian Cysts. Denies: Hx Peritoneal Dialysis GI Medical History: Reports: Hx Gastroesophageal Reflux Disease Musculoskeltal Medical History: Denies Hx Arthritis Psychiatric Medical History: Reports: Hx Anxiety, Hx Attention Deficit Hyperactivity Disorder, Hx Depression Past Surgical History: Reports: Hx Adenoidectomy, Hx Gynecologic Surgery - R ovarian cyst 2010 Uterine fibroid removal 2009 in [place]., Hx Tonsillectomy - Immunizations Hx Diphtheria, Pertussis, Tetanus Vaccination: Yes - 06/2011 Physical Exam - Vital signs Vitals: Temp Pulse Resp BP Pulse Ox 99.1 F 120 H 24 H 137/78 H 99 12/18/16 17:54 12/18/16 17:54 12/18/16 17:54 12/18/16 17:54 12/18/16 17:54 Course - Vital Signs Vital signs: Temp Pulse Resp BP Pulse Ox 99.1 F 120 H 24 H 137/78 H 99 12/18/16 17:54 12/18/16 17:54 12/18/16 17:54 12/18/16 17:54 12/18/16 17:54 - Laboratory Result Diagrams: 12/18/16 18:21 Laboratory results interpreted by me: 12/18/16 18:21 WBC 11.8 H RBC 3.29 L Hgb 9.3 L Hct 28.3 L RDW 16.6 H
[2016-12-18] MEDS ORDERED: NORMAL SALINE 1000 ML 1,000 ML IV ONE (19:30)
[2016-12-18] MEDS ORDERED: PROMETHAZINE HCL 25 MG TABLET PO ONE (19:31)
[2016-12-18] MEDS ORDERED: HYDROCODONE/ACETAMINOPHEN 5-325 MG TABLET PO ONE (19:31)
--- NOTE | 2016-12-18 19:34 | ER Document Report ---
ED GI/ - General Chief Complaint: Dizziness Stated Complaint: VOMITING,LIGHT HEADED Time Seen by Provider: 12/18/16 18:04 Notes: Patient is a 31-year-old female comes emergency department for chief complaint of vaginal bleeding, lightheadedness, nausea, feeling weak. She states she has had vaginal bleeding for the past 1.5 months, she has been seen by the [facility], she is being referred to [facility] gynecology because she does not have insurance, she states the referral is not until next month. She has recently been started on iron, she has been tried on contraceptives already. She has been diagnosed with a uterine fibroid demonstrated on an ultrasound about 1 week ago during a visit to this department. She denies fever, vomiting , passing out, chest pain, shortness of breath. She is on hydrocodone for pain , multiple anxiety medications. TRAVEL OUTSIDE OF THE [place] IN LAST 30 DAYS: No - Related Data Allergies/Adverse Reactions: amoxicillin [Amoxicillin] Allergy (Verified 12/18/16 17:53) benzonatate [From Tessalon Perles] Allergy (Verified 12/18/16 17:53) Penicillins Allergy (Verified 12/18/16 17:53) Past Medical History - General Information source: Patient - Social History Smoking Status: Never Smoker Chew tobacco use (# tins/day): No Frequency of alcohol use: None Drug Abuse: None Family History: Other - Brother with blood clots - Past Medical History Cardiac Medical History: Reports: Hx Hypertension Denies: Hx Coronary Artery Disease, Hx Heart Attack Pulmonary Medical History: Reports: Hx Asthma, Hx Sleep Apnea Denies: Hx Bronchitis, Hx COPD, Hx Pneumonia Neurological Medical History: Denies: Hx Cerebrovascular Accident, Hx Seizures Endocrine Medical History: Denies: Hx Diabetes Mellitus Type 1, Hx Diabetes Mellitus Type 2 Renal/ Medical History: Reports: Hx Ovarian Cysts. Denies: Hx Peritoneal Dialysis GI Medical History: Reports: Hx Gastroesophageal Reflux Disease Musculoskeltal Medical History: Denies Hx Arthritis Psychiatric Medical History: Reports: Hx Anxiety, Hx Attention Deficit Hyperactivity Disorder, Hx Depression Past Surgical History: Reports: Hx Adenoidectomy, Hx Gynecologic Surgery - R ovarian cyst 2010 Uterine fibroid removal 2010 in [place]., Hx Tonsillectomy - Immunizations Hx Diphtheria, Pertussis, Tetanus Vaccination: Yes - 06/2011 Review of Systems - Review of Systems Constitutional: No symptoms reported EENT: No symptoms reported Cardiovascular: See HPI Respiratory: No symptoms reported Gastrointestinal: No symptoms reported Genitourinary: No symptoms reported Female Genitourinary: No symptoms reported Musculoskeletal: No symptoms reported Skin: No symptoms reported Hematologic/Lymphatic: No symptoms reported Neurological/Psychological: No symptoms reported Physical Exam - Vital signs Vitals: Temp Pulse Resp BP Pulse Ox 99.1 F 120 H 24 H 137/78 H 99 12/18/16 17:54 12/18/16 17:54 12/18/16 17:54 12/18/16 17:54 12/18/16 17:54 Interpretation: Normal - General General appearance: Appears well, Alert In distress: None - HEENT Head: Normocephalic, Atraumatic Eyes: Normal Pupils: PERRL - Respiratory Respiratory status: No respiratory distress Chest status: Nontender Breath sounds: Normal Chest palpation: Normal - Cardiovascular Rhythm: Regular, Tachycardia Heart sounds: Normal auscultation, S1 appreciated, S2 appreciated Murmur: No - Abdominal Inspection: Normal Distension: No distension Bowel sounds: Normal Tenderness: Nontender. No: Tender, Guarding Organomegaly: No organomegaly - Genitourinary External exam: Normal Speculum exam: Cervix closed. No: Vaginal discharge Vaginal bleeding: Mild - RN Sue present during examination Bimanuel exam: No: Cervical motion tender - Back Back: Normal, Nontender. No: Tender, CVA tenderness - Extremities General upper extremity: Normal inspection, Nontender, Normal color, Normal ROM , Normal temperature General lower extremity: Normal inspection, Nontender, Normal color, Normal ROM , Normal temperature, Normal weight bearing. No: Aubree's sign - Neurological Neuro grossly intact: Yes Cognition: Normal Orientation: AAOx4 Marci Coma Scale Eye Opening: Spontaneous Marci Coma Scale Verbal: Oriented Marci Coma Scale Motor: Obeys Commands Marci Coma Scale Total: 15 Speech: Normal Motor strength normal: LUE, RUE, LLE, RLE Sensory: Normal - Psychological Associated symptoms: Normal affect, Normal mood - Skin Skin Temperature: Warm Skin Moisture: Dry Skin Color: Normal Course - Re-evaluation Re-evalutation: Patient welling appearing on examination other than tachycardia. She has a slow continuous vaginal bleeding on pelvic examination with no other concerning findings on pelvic examination. She had a recent ultrasound showing a fibroid which is probably the source of her ongoing vaginal bleeding. Hemoglobin is decreased from prior at 9.3 but is not below the typical transfusion threshold. Patient initially tachycardic, and this resolved after some IV fluids. Chemistry, urinalysis unremarkable. Patient was given TXA IV single dose with good results. Discussed with Dr. Garcia. Continued to monitor and she did not have any significant bleeding during her time here. Able to stand and ambulate without any difficulty. Patient is already established with a follow-up with ELECTRICAL DISCHARGE MACHINE OPERATOR for additional management. She is already taking iron. I discussed with patient, patient will be discharged at this time with follow-up recommendations, return precautions. Patient states satisfaction and agreement. - Vital Signs Vital signs: Temp Pulse Resp BP Pulse Ox 98.8 F 95 18 122/56 L 99 12/18/16 22:11 12/18/16 22:11 12/18/16 22:11 12/18/16 22:11 12/18/16 22:11 - Laboratory Result Diagrams: 12/18/16 18:21 12/18/16 18:21 Laboratory results interpreted by me: 12/18/16 12/18/16 12/18/16 18:21 18:21 20:15 WBC 11.8 H RBC 3.29 L Hgb 9.3 L Hct 28.3 L RDW 16.6 H Glucose 129 H Urine Blood LARGE H Discharge - Discharge Clinical Impression: Vaginal bleeding, Lightheadedness Condition: Stable Disposition: HOME, SELF-CARE Additional Instructions: Please continue your iron supplement. You have been given a dose of TXA tonight to reduce your bleeding symptoms. Follow-up with your OBGYN referral as planned. Return to the emergency department for any concerning or worsening symptoms including passing out, severe pain, or any other concerning symptoms. Referrals: ERIC MYERS MD [Primary Care Provider] - Follow up as needed
[2016-12-18 19:51] LABS: ALANINE AMINOTRANSFERASE 28 U/L (9-52); ALBUMIN 3.5 g/dL (3.5-5.0); ALKALINE PHOSPHATASE 107 U/L (38-126); ANION GAP 11 (5-19); ASPARTATE AMINO TRANSFERASE 19 U/L (14-36); BILIRUBIN,DIRECT 0.2 mg/dL (0.0-0.4); BILIRUBIN,TOTAL 0.2 mg/dL (0.2-1.3); BLOOD UREA NITROGEN 12 mg/dL (7-20); CALCIUM 9.3 mg/dL (8.4-10.2); CARBON DIOXIDE 26 mmol/L (22-30); CHLORIDE 104 mmol/L (98-107); CREATININE RESULT 0.84 mg/dL (0.52-1.25); GLUCOSE 129 mg/dL (75-110); POTASSIUM 4.4 mmol/L (3.6-5.0); SODIUM 141.1 mmol/L (137-145); TOTAL PROTEIN 6.7 g/dL (6.3-8.2)
[2016-12-18 20:28] LABS: APPEARANCE,URINE CLEAR; BILIRUBIN,URINE NEGATIVE (NEGATIVE); GLUCOSE, URINE NEGATIVE (NEGATIVE); KETONES,URINE NEGATIVE (NEGATIVE); LEUKOCYTE ESTERASE,URINE NEGATIVE (NEGATIVE); NITRITE,URINE NEGATIVE (NEGATIVE); PROTEIN,URINE NEGATIVE (NEGATIVE); URINE SPECIFIC GRAVITY 1.019; UROBILINOGEN,URINE NEGATIVE mg/dL (<2.0)
[2016-12-18] MEDS ORDERED: TRANEXAMIC ACID INJ/PF 1,000 MG/10 ML SDV IV ONE (20:39)
[2016-12-18 22:17] VITALS: BP 122/56
== END 2016-12-18 22:15 | disposition home or self-care (01) ==
LOC: ER 17:46
DX: N93.9 Abnormal uterine and vaginal bleeding, unspecified (principal); R42 Dizziness and giddiness; R11.10 Vomiting, unspecified; Z79.899 Other long term (current) drug therapy
CPT/HCPCS: 99284; 96361; 96365; 36415; 85025; 81025; 80053; 81001; J7030; J3490

== ENCOUNTER 2017-01-07 14:22 | Emergency (ER) | payer SELFPAY ==
--- NOTE | 2017-01-07 14:45 | ER Document Report ---
ED Medical Screen (RME) - General Chief Complaint: Vaginal Bleeding Stated Complaint: VAGINAL BLEEDING Time Seen by Provider: 01/07/17 14:39 Mode of Arrival: Ambulatory Information source: Patient Notes: 31-year-old female history of vaginal bleeding presents with continued vaginal bleeding concerns for rectal bleeding. Patient has had dark stools for the past 4 days with intermittent abdominal pain. She notes that she has seen OB/ DEBARKER OPERATOR but no definitive answer I have greeted and performed a rapid initial assessment of this patient. A comprehensive ED assessment and evaluation of the patient, analysis of test results and completion of the medical decision making process will be conducted by additional ED providers. PHYSICAL EXAMINATION: GENERAL: Well-appearing, well-nourished and in mild distress HEAD: Atraumatic, normocephalic. EYES: Pupils equal round extraocular movements intact, conjunctiva are normal. ENT: Nares patent NECK: Normal range of motion LUNGS: Tachypnea tachycardic Musculoskeletal: Normal range of motion NEUROLOGICAL: Normal speech, normal gait. PSYCH: Normal mood, normal affect. SKIN: Warm, Dry, normal turgor, no rashes or lesions noted. TRAVEL OUTSIDE OF THE [place] IN LAST 30 DAYS: No - Related Data Allergies/Adverse Reactions: amoxicillin [Amoxicillin] Allergy (Verified 01/07/17 14:38) benzonatate [From Tessalon Perles] Allergy (Verified 01/07/17 14:38) iloperidone [From Fanapt] Allergy (Verified 01/07/17 14:38) Penicillins Allergy (Verified 01/07/17 14:38) Home Medications: Current Home Medications Fluticasone Propionate [Flonase Nasal Banquete 50 Mcg/Banquete 16 gm] 2 sprays NASL Q12 PRN 01/07/17 [History] Omeprazole Magnesium [Prilosec Otc] 20 mg PO DAILY 01/07/17 [History] Past Medical History - Social History Family history: None - Past Medical History Cardiac Medical History: Reports: Hx Hypertension Denies: Hx Coronary Artery Disease, Hx Heart Attack Pulmonary Medical History: Reports: Hx Asthma, Hx Sleep Apnea Denies: Hx Bronchitis, Hx COPD, Hx Pneumonia Neurological Medical History: Denies: Hx Cerebrovascular Accident, Hx Seizures Endocrine Medical History: Denies: Hx Diabetes Mellitus Type 1, Hx Diabetes Mellitus Type 2 Renal/ Medical History: Reports: Hx Ovarian Cysts. Denies: Hx Peritoneal Dialysis GI Medical History: Reports: Hx Gastroesophageal Reflux Disease Musculoskeltal Medical History: Denies Hx Arthritis Psychiatric Medical History: Reports: Hx Anxiety, Hx Attention Deficit Hyperactivity Disorder, Hx Depression Past Surgical History: Reports: Hx Adenoidectomy, Hx Gynecologic Surgery - R ovarian cyst 2010 Uterine fibroid removal 2010 in [place]., Hx Tonsillectomy - Immunizations Hx Diphtheria, Pertussis, Tetanus Vaccination: Yes - 06/2011 Physical Exam - Vital signs Vitals: Temp Pulse Resp BP Pulse Ox 98.6 F 128 H 22 H 117/65 100 01/07/17 14:26 01/07/17 14:26 01/07/17 14:26 01/07/17 14:26 01/07/17 14:26 Course - Vital Signs Vital signs: Temp Pulse Resp BP Pulse Ox 98.6 F 128 H 22 H 117/65 100 01/07/17 14:26 01/07/17 14:26 01/07/17 14:26 01/07/17 14:26 01/07/17 14:26
[2017-01-07 15:20] LABS: APPEARANCE,URINE CLOUDY; BILIRUBIN,URINE NEGATIVE (NEGATIVE); GLUCOSE, URINE NEGATIVE (NEGATIVE); KETONES,URINE NEGATIVE (NEGATIVE); LEUKOCYTE ESTERASE,URINE TRACE (NEGATIVE); NITRITE,URINE NEGATIVE (NEGATIVE); PROTEIN,URINE 30 mg/dL (NEGATIVE); URINE SPECIFIC GRAVITY 1.036
[2017-01-07 15:28] LABS: HEMATOCRIT 29.2 % (36.0-47.0); HEMOGLOBIN 9.5 g/dL (12.0-15.5); HGB HCT DIFFERENCE -0.7; LYMPHOCYTES % (AUTO) 22.4 % (13-45); MEAN CORPUSCULAR HEMOGLOBIN 28.1 pg (27.0-33.4); MEAN CORPUSCULAR HGB CONC 32.4 g/dL (32.0-36.0); MEAN CORPUSCULAR VOLUME 87 fl (80-97); RED BLOOD COUNT 3.36 10^6/uL (3.72-5.28); SEGMENTED NEUTROPHILS % (AUTO) 72.1 % (42-78); WHITE BLOOD COUNT 12.4 10^3/uL (4.0-10.5)
[2017-01-07 15:29] LABS: ABSOLUTE BASOPHILS # (AUTO) 0.1 10^3/uL (0.0-0.2); ABSOLUTE EOSINOPHILS # (AUTO) 0.1 10^3/uL (0.0-0.6); ABSOLUTE LYMPHOCYTES (AUTO) 2.8 10^3/uL (0.5-4.7); ABSOLUTE MONOCYTES (AUTO) 0.5 10^3/uL (0.1-1.4); ABSOLUTE NEUT (AUTO) 8.9 10^3/uL (1.7-8.2); BASOPHILS % (AUTO) 0.5 % (0-2); EOSINOPHILS % (AUTO) 1.1 % (0-6); MONOCYTES % (AUTO) 3.9 % (3-13)
[2017-01-07 15:44] LABS: ALANINE AMINOTRANSFERASE 18 U/L (9-52); ALKALINE PHOSPHATASE 100 U/L (38-126); ANION GAP 14 (5-19); ASPARTATE AMINO TRANSFERASE 17 U/L (14-36); BILIRUBIN,DIRECT 0.3 mg/dL (0.0-0.4); BILIRUBIN,TOTAL 0.4 mg/dL (0.2-1.3); BLOOD UREA NITROGEN 11 mg/dL (7-20); CALCIUM 9.2 mg/dL (8.4-10.2); CARBON DIOXIDE 22 mmol/L (22-30); CHLORIDE 108 mmol/L (98-107); CREATININE RESULT 0.78 mg/dL (0.52-1.25); GLUCOSE 121 mg/dL (75-110); POTASSIUM 4.2 mmol/L (3.6-5.0); SODIUM 144.1 mmol/L (137-145); TOTAL PROTEIN 7.4 g/dL (6.3-8.2)
--- NOTE | 2017-01-07 15:51 | ER Document Report ---
ED General - General Chief Complaint: Vaginal Bleeding Stated Complaint: VAGINAL BLEEDING Time Seen by Provider: 01/07/17 14:39 Mode of Arrival: Ambulatory Information source: Patient Notes: Patient presents to emergency department with reports of vaginal bleeding clots feeling dizzy with a headache. Patient reports she has been bleeding since September. Patient reports her stools are really dark. Upon further questioning patient admits to taking iron. She reports all the bleeding is vaginal not rectal. She reports her stools are dark sometimes, light other times. She went to the health department on December 27 received a depo shot. She stopped bleeding for 3 days and now reports the heavy vaginal bleeding with clots has returned. She reports she was here in November had a ultrasound completed and has fibroids. She reports her mother had history of the same symptoms and ended up with a hysterectomy. She reports she is not sexually active so there is no way she will be . She also reports fever of 101 took some Tylenol at 10:00. Complains of low abdominal pain. TRAVEL OUTSIDE OF THE [place] IN LAST 30 DAYS: No - HPI Onset: Other Onset/Duration: Persistent Quality of pain: Achy Severity: Severe Pain Level: 5 Associated symptoms: Fever Exacerbated by: Denies Relieved by: Denies Similar symptoms previously: Yes Recently seen / treated by doctor: Yes - Related Data Allergies/Adverse Reactions: amoxicillin [Amoxicillin] Allergy (Verified 01/07/17 14:38) benzonatate [From Tessalon Perles] Allergy (Verified 01/07/17 14:38) iloperidone [From Fanapt] Allergy (Verified 01/07/17 14:38) Penicillins Allergy (Verified 01/07/17 14:38) Home Medications: Current Home Medications Fluticasone Propionate [Flonase Nasal Herod 50 Mcg/Herod 16 gm] 2 sprays NASL Q12 PRN 01/07/17 [History] Omeprazole Magnesium [Prilosec Otc] 20 mg PO DAILY 01/07/17 [History] Past Medical History - General Information source: Patient Last Menstrual Period: 10/13/16 - Social History Smoking Status: Never Smoker Chew tobacco use (# tins/day): No Frequency of alcohol use: None Drug Abuse: None Occupation: not employed Family History: Other - Brother with blood clots, mother with hysterectomy Patient has suicidal ideation: No Patient has homicidal ideation: No - Past Medical History Cardiac Medical History: Reports: Hx Hypertension Denies: Hx Coronary Artery Disease, Hx Heart Attack Pulmonary Medical History: Reports: Hx Asthma, Hx Sleep Apnea Denies: Hx Bronchitis, Hx COPD, Hx Pneumonia Neurological Medical History: Denies: Hx Cerebrovascular Accident, Hx Seizures Endocrine Medical History: Denies: Hx Diabetes Mellitus Type 1, Hx Diabetes Mellitus Type 2 Renal/ Medical History: Reports: Hx Ovarian Cysts. Denies: Hx Peritoneal Dialysis GI Medical History: Reports: Hx Gastroesophageal Reflux Disease Musculoskeltal Medical History: Denies Hx Arthritis Psychiatric Medical History: Reports: Hx Anxiety, Hx Attention Deficit Hyperactivity Disorder, Hx Depression Past Surgical History: Reports: Hx Adenoidectomy, Hx Gynecologic Surgery - R ovarian cyst 2010 Uterine fibroid removal 2010 in [place]., Hx Tonsillectomy - Immunizations Hx Diphtheria, Pertussis, Tetanus Vaccination: Yes - 06/2011 Review of Systems - Review of Systems Notes: Review HPI for review of systems., All other systems negative Physical Exam - Vital signs Vitals: Temp Pulse Resp BP Pulse Ox 98.6 F 128 H 22 H 117/65 100 01/07/17 14:26 01/07/17 14:26 01/07/17 14:26 01/07/17 14:26 01/07/17 14:26 - Notes Notes: PHYSICAL EXAMINATION: GENERAL: Well-appearing and in no acute distress nontoxic looking HEAD: Atraumatic, normocephalic. EYES: Pupils equal round extraocular movements intact, sclera anicteric, conjunctiva are normal. ENT: nares patent, Moist mucous membranes. NECK: Normal range of motion, supple without lymphadenopathy LUNGS: CTAB and equal. No wheezes rales or rhonchi. HEART: Regular rate and rhythm without murmurs ABDOMEN: obese, Soft, no tenderness. No guarding, no rebound EXTREMITIES: Normal range of motion, no pitting edema. No cyanosis. NEUROLOGICAL: Cranial nerves grossly intact. Normal sensory/motor exams. PSYCH: Normal mood, normal affect. SKIN: Warm, Dry, normal turgor, no rashes or lesions noted Course - Re-evaluation Re-evalutation: 01/07/17 16:07 pt requesting something for pain, Toradol offered, patient at first declined but decided to accept. BP cuff not fitting patient correctly, adjustment obtained. BP better 01/07/17 17:38 Patient updated on transvaginal ultrasound labs which are unremarkable. H/H 9.5/ 29.2, slightly better since last visit for same symptoms in Nov. Patient verbalized understanding. Patient reports Toradol really did not help her pain and asking for something stronger. Patient was encouraged to take Tylenol as indicated. She reports that does not help. Again patient was encouraged to follow-up with the health department or OIL CHANGE TECHNICIAN. She verbalized understanding t0 all instructions. - Vital Signs Vital signs: Temp Pulse Resp BP Pulse Ox 98.6 F 128 H 24 H 106/43 L 100 01/07/17 14:26 01/07/17 14:26 01/07/17 17:41 01/07/17 17:42 01/07/17 17:41 01/07/17 17:42 HR 101, 107/49, 100%, 16 - Laboratory Result Diagrams: 01/07/17 15:10 01/07/17 15:10 Laboratory results interpreted by me: 01/07/17 01/07/17 01/07/17 14:45 15:10 15:10 WBC 12.4 H RBC 3.36 L Hgb 9.5 L Hct 29.2 L RDW 17.0 H Plt Count 496 H Absolute Neutrophils 8.9 H Chloride 108 H Glucose 121 H Urine Protein 30 H Urine Blood LARGE H Urine Urobilinogen 4.0 H Ur Leukocyte Esterase TRACE H Urine Ascorbic Acid 40 H - Diagnostic Test Radiology reviewed: Image reviewed, Reports reviewed - TECHNIQUE: Dynamic and static grayscale images acquired of the pelvis via transvaginal approach and recorded on PACS. Additional selected color Doppler and spectral images recorded. LIMITATIONS: None. FINDINGS: UTERUS: Size and contour normal. Note is again made of a 2.5 x 2.5 x 3.6 cm submucosal fibroid. ENDOMETRIAL STRIPE: No focal or generalized thickening. No masses. CERVIX: No nabothian cysts. RIGHT OVARY: No abnormal masses. RIGHT OVARY DOPPLER: Normal arterial vascular flow without evidence for torsion. LEFT OVARY: No abnormal masses. LEFT OVARY DOPPLER: Normal arterial vascular flow without evidence for torsion. FREE FLUID: None noted. OTHER: No other significant finding. MEASUREMENTS: UTERUS: 8.7 x 5.0 x 5.4 cm ENDOMETRIAL STRIPE: 1.3 cm RIGHT OVARY: 2.7 x 1.3 x 2.4 cm LEFT OVARY: 2.0 x 1.5 x 1.1 cm IMPRESSION: Active menstruation in the setting of submucosal fibroid. Discharge - Discharge Clinical Impression: Vaginal bleeding Condition: Stable Disposition: HOME, SELF-CARE Instructions: [facility], [facility] Department, Vaginal Bleeding ([facility]) Additional Instructions: *You have been evaluated for vaginal bleeding *continue taking iron as indicated *Follow up with the health department or BORDER INSPECTOR within the next 5 days *Return to ED for worsening condition, changes, needs *Return to ED if not better in 24 hours
[2017-01-07] MEDS ORDERED: KETOROLAC TROMETHAMINE INJ/PF 30 MG/1 ML SDV IV ONE (16:03)
--- NOTE | 2017-01-07 17:06 | RADIOLOGY REPORT (SQ) ---
EXAM DESCRIPTION: U/S NON OB PEL TV W/DOPPLER COMPLETED DATE/TIME: 01/07/2017 4:54 pm REASON FOR STUDY: low abd pain, vag bleeding COMPARISON: 12/10/2016 TECHNIQUE: Dynamic and static grayscale images acquired of the pelvis via transvaginal approach and recorded on PACS. Additional selected color Doppler and spectral images recorded. LIMITATIONS: None. FINDINGS: UTERUS: Size and contour normal. Note is again made of a 2.5 x 2.5 x 3.6 cm submucosal fi broid. ENDOMETRIAL STRIPE: No focal or generalized thickening. No masses. CERVIX: No nabothian cysts. RIGHT OVARY: No abnormal masses. RIGHT OVARY DOPPLER: Normal arterial vascular flow without evidence for torsion. LEFT OVARY: No abnormal masses. LEFT OVARY DOPPLER: Normal arterial vascular flow without evidence for torsion. FREE FLUID: None noted. OTHER: No other significant finding. MEASUREMENTS: UTERUS: 8.7 x 5.0 x 5.4 cm ENDOMETRIAL STRIPE: 1.3 cm RIGHT OVARY: 2.7 x 1.3 x 2.4 cm LEFT OVARY: 2.0 x 1.5 x 1.1 cm IMPRESSION: Active menstruation in the setting of submucosal fibroid. TECHNICAL DOCUMENTATION: JOB ID: [id number] [employer]- All Rights Reserved
[2017-01-07 17:43] VITALS: BP 106/43
== END 2017-01-07 17:46 | disposition home or self-care (01) ==
LOC: ER 14:22
DX: D25.0 Submucous leiomyoma of uterus (principal); R42 Dizziness and giddiness; R51 Headache; R10.30 Lower abdominal pain, unspecified; R50.9 Fever, unspecified; I10 Essential (primary) hypertension; J45.909 Unspecified asthma, uncomplicated; Z79.899 Other long term (current) drug therapy; Z88.0 Allergy status to penicillin; Z88.8 Allergy status to other drugs, medicaments and biological substances; Z98.890 Other specified postprocedural states
CPT/HCPCS: 99284; 96374; 86900; 86901; 36415; 86850; 84702; 85025; 80053; 81001; 76830; 93976; J1885

== ENCOUNTER 2017-03-14 17:55 | Emergency (ER) | payer SELFPAY ==
[2017-03-14] MEDS ORDERED: OXYCODONE-ACETAMINOPHEN 5-325 MG TABLET PO ONE (18:52)
[2017-03-14] MEDS ORDERED: PROCHLORPERAZINE MALEATE 10 MG TABLET PO ONE (18:52)
[2017-03-14] MEDS ORDERED: DIPHENHYDRAMINE HCL 50 MG CAPSULE PO ONE (18:52)
--- NOTE | 2017-03-14 19:00 | ER Document Report ---
ED Neck/Back Problem - General Chief Complaint: Back Pain Stated Complaint: BACK PAIN/HEADACHE, CHEST PAIN Time Seen by Provider: 03/14/17 18:39 Mode of Arrival: Ambulatory Information source: Patient, [facility] Records Notes: This 31-year-old female patient comes emergency room complaining of headache. She had an epidural injection probably at the L4-5 level about 2 weeks ago and a few days later developed headache. She called and talked with the providers there and they told her this was normal to have a post epidural headache. It has not improved so she returns today and saw the orthopedic doctor who told her it was not normal and told her to take some caffeine pill she had. If they did not help then she should come to the emergency room. Caffeine pills did not help so she is here. Her headache is frontal by history. She also states the epidural did not help and she continues to have the same pain in her low back shooting down both of her legs and what sounds like an L4 or L5 distribution. There is no fever, nausea vomiting diarrhea, cough or any systemic symptoms. TRAVEL OUTSIDE OF THE [place] IN LAST 30 DAYS: No - Related Data Allergies/Adverse Reactions: amoxicillin [Amoxicillin] Allergy (Verified 03/14/17 17:59) benzonatate [From Tessalon Perles] Allergy (Verified 03/14/17 17:59) iloperidone [From Fanapt] Allergy (Verified 03/14/17 17:59) Penicillins Allergy (Verified 03/14/17 17:59) Past Medical History - General Information source: Patient, [facility] Records - Social History Smoking Status: Never Smoker Cigarette use (# per day): No Chew tobacco use (# tins/day): No Smoking Education Provided: No Frequency of alcohol use: None Drug Abuse: None Occupation: Unemployed Lives with: Family, Parents Family History: Other - Brother with blood clots, mother with hysterectomy Patient has suicidal ideation: No Patient has homicidal ideation: No - Past Medical History Cardiac Medical History: Reports: None Pulmonary Medical History: Reports: Hx Asthma, Hx Sleep Apnea EENT Medical History: Reports: None Neurological Medical History: Reports: None Endocrine Medical History: Reports: None Renal/ Medical History: Reports: Hx Ovarian Cysts GI Medical History: Reports: Hx Gastroesophageal Reflux Disease Musculoskeltal Medical History: Reports Other - 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- 5 level by patient history Psychiatric Medical History: Reports: Hx Anxiety, Hx Attention Deficit Hyperactivity Disorder, Hx Depression Past Surgical History: Reports: Hx Adenoidectomy, Hx Gynecologic Surgery - R ovarian cyst 2010 Uterine fibroid removal 2010 in [place]., Hx Tonsillectomy - Immunizations Hx Diphtheria, Pertussis, Tetanus Vaccination: Yes - 06/2011 Review of Systems - Review of Systems Constitutional: No symptoms reported EENT: No symptoms reported Cardiovascular: No symptoms reported Respiratory: No symptoms reported Gastrointestinal: No symptoms reported Genitourinary: No symptoms reported Female Genitourinary: No symptoms reported - Patient is on the Depakote shot to control heavy periods. denies: - She states she is not sexually active , has not been in quite some time Skin: No symptoms reported Hematologic/Lymphatic: No symptoms reported Neurological/Psychological: See HPI, Headaches Physical Exam - Vital signs Vitals: Temp Pulse Resp BP Pulse Ox 99.1 F 112 H 20 132/60 H 96 03/14/17 18:08 03/14/17 18:08 03/14/17 18:08 03/14/17 18:08 03/14/17 18:08 Interpretation: Normal - General General appearance: Appears well, Alert In distress: None - HEENT Head: Normocephalic, Atraumatic, Tenderness - The forehead frontal scalp muscles temporal muscles and posterior cervical muscles are all quite tender to palpate. Eyes: Normal Pupils: PERRL Neck: Supple - Posterior cervical muscles particularly going into the nuchal ridge and occipital region are tender. - Respiratory Respiratory status: No respiratory distress Breath sounds: Normal Chest palpation: Tender - Cardiovascular Rhythm: Regular - Abdominal Inspection: Morbidly Obese - Back Back: Tender - Extremities General upper extremity: Normal inspection General lower extremity: Normal inspection - Neurological Neuro grossly intact: Yes - Psychological Associated symptoms: Normal affect, Normal mood - Skin Skin Temperature: Warm Skin Moisture: Dry Skin Color: Normal Course - Vital Signs Vital signs: Temp Pulse Resp BP Pulse Ox 98.4 F 105 H 20 141/79 H 100 03/14/17 20:32 03/14/17 20:32 03/14/17 20:32 03/14/17 20:32 03/14/17 20:32 Discharge - Discharge Clinical Impression: Muscle tension headache, Lumbar radiculopathy, chronic Condition: Stable Disposition: HOME, SELF-CARE Additional Instructions: Tension Headache Your problem has been diagnosed as muscle tension headache. This very common type of headache occurs because of tightness in the muscles of the head and neck. The headache may last hours or days. The treatment of uncomplicated tension headaches is rest and pain medication. Often, the newer antiinflammatory pain medications are prescribed, as these also decrease the irritability of the painful tissues. Muscle relaxers , cold packs, or warm packs are sometimes helpful. Anti-anxiety medication or narcotics are sometimes needed temporarily, but are best avoided in the long run. Your doctor has evaluated your headache problem, and finds no evidence of a serious health problem as a cause for the headache. If your headache becomes more severe, or if new symptoms develop (such as fever, stiff neck, vomiting, or decreasing alertness) you should be re-examined by the physician. //////////////////////////////////////////////////////////////////////////////// //////////////////////////////////////////////////////////////////////////////// //////////////// Take the prescription pain medication that you received from your doctor as discussed. Take the pain medication as dispensed a night if needed. Get plenty of rest. Drink plenty of fluids. Follow-up with your doctor this week if not improving. RETURN TO THE EMERGENCY ROOM IF ANY NEW OR WORSENING SYMPTOMS.
--- NOTE | 2017-03-14 20:27 | EKG REPORT ---
SEVERITY:- OTHERWISE NORMAL ECG - SINUS TACHYCARDIA : Confirmed by: Luzmaria Lindsey 14-Mar-2017 20:26:33
[2017-03-14 20:33] VITALS: BP 141/79
[2017-03-14] MEDS ORDERED: HYDROCODONE/ACETAMINOPHEN 5-325 MG (6 TAB/ER DISP) PO PRN (20:39)
== END 2017-03-14 20:48 | disposition home or self-care (01) ==
LOC: ER 17:55
DX: G44.209 Tension-type headache, unspecified, not intractable (principal); M54.16 Radiculopathy, lumbar region; R07.9 Chest pain, unspecified; Z88.0 Allergy status to penicillin
CPT/HCPCS: 93005; 99283; 93010; S0183

== ENCOUNTER 2017-04-18 11:19 | Emergency (ER) | payer SELFPAY ==
[2017-04-18] MEDS ORDERED: NORMAL SALINE 1000 ML 1,000 ML IV ONE (11:53)
[2017-04-18] MEDS ORDERED: KETOROLAC TROMETHAMINE INJ/PF 30 MG/1 ML SDV IV ONE (11:53)
--- NOTE | 2017-04-18 11:55 | ER Document Report ---
HPI - HPI Patient complains to provider of: cough Onset: Other - 2 wks Onset/Duration: Persistent Quality of pain: Achy Pain Level: 5 Context: Patient presents complaining of occasionally productive cough for the past 2 weeks. Patient does state she has had fever off and on with this at home. Patient states she will occasionally vomit after coughing. Patient does complain of headache, dizziness with congestion. Patient complains of chest discomfort only with coughing. Patient presently denies any chest pain at this time. Patient denies any recent bed rest, surgery, immobilization, history of DVT or PE. Patient denies any leg pain or swelling. Associated Symptoms: Chest pain, Productive cough, Headache, Vomiting Exacerbated by: Coughing Relieved by: Remaining still Similar symptoms previously: Yes Recently seen / treated by doctor: No - ROS ROS below otherwise negative: Yes Systems Reviewed and Negative: Yes All other systems reviewed and negative - CONSTITUTIONAL Constitutional: REPORTS: Fever - EENT EENT: REPORTS: Congestion - NEURO Neurology: REPORTS: Headache - CARDIOVASCULAR Cardiovascular: REPORTS: Chest pain - RESPIRATORY Respiratory: REPORTS: Coughing. DENIES: Trouble Breathing - GASTROINTESTINAL Gastrointestinal: REPORTS: Patient vomiting. DENIES: Abdominal Pain - REPRODUCTIVE Reproductive: DENIES: : - MUSCULOSKELETAL Musculoskeletal: DENIES: Extremity pain, Back Pain, Neck Pain - DERM Skin Color: Normal Skin Problems: None Past Medical History - General Information source: Patient - Social History Smoking Status: Never Smoker Frequency of alcohol use: None Drug Abuse: None Occupation: None Family History: Other - Brother with blood clots, mother with hysterectomy - Past Medical History Cardiac Medical History: Reports: Other - Tachycardia Denies: Hx Heart Attack Pulmonary Medical History: Reports: Hx Asthma, Hx Sleep Apnea Denies: Hx Bronchitis, Hx COPD, Hx Pneumonia Neurological Medical History: Denies: Hx Seizures Endocrine Medical History: Denies: Hx Diabetes Mellitus Type 1, Hx Diabetes Mellitus Type 2 Renal/ Medical History: Reports: Hx Ovarian Cysts. Denies: Hx Peritoneal Dialysis GI Medical History: Reports: Hx Gastroesophageal Reflux Disease Musculoskeltal Medical History: Denies Hx Arthritis Psychiatric Medical History: Reports: Hx Anxiety, Hx Attention Deficit Hyperactivity Disorder, Hx Depression Past Surgical History: Reports: Hx Adenoidectomy, Hx Gynecologic Surgery - R ovarian cyst 2010 Uterine fibroid removal 2009 in [place]., Hx Tonsillectomy - Immunizations Hx Diphtheria, Pertussis, Tetanus Vaccination: Yes - 06/2011 Vertical Provider Document - CONSTITUTIONAL Agree With Documented VS: Yes Exam Limitations: No Limitations General Appearance: WD/WN, No Apparent Distress - INFECTION CONTROL TRAVEL OUTSIDE OF THE [place] IN LAST 30 DAYS: No - HEENT HEENT: Atraumatic, Normocephalic. negative: Pharyngeal Exudate, Pharyngeal Tenderness, Pharyngeal Erythema, Tympanic Membrane Red, Tympanic Membrane Bulging Notes: clear rhinorrhea - NECK Neck: Normal Inspection, Supple. negative: Lymphadenopathy-Left, Lymphadenopathy-Right - RESPIRATORY Respiratory: No Respiratory Distress, Chest Non-Tender, Rhonchi O2 Sat by Pulse Oximetry: 99 - CARDIOVASCULAR Cardiovascular: Regular Rhythm, No Murmur, Tachycardia - BACK Back: Normal Inspection - MUSCULOSKELETAL/EXTREMETIES Musculoskeletal/Extremeties: MAEW, FROM, No Edema - NEURO Level of Consciousness: Awake, Appropriate Motor/Sensory: No Motor Deficit - DERM Integumentary: Warm, Dry, No Rash Course - Re-evaluation Re-evalutation: 04/18/17 14:44 Patient reports that her cough seems to be better after nebulizer treatment. Patient denies any headache at this time. Patient without any chest pain at this time. Patient does report that her chest only hurts when she is in coughing fits. Patient's tachycardia has improved after IV fluid bolus. Patient does acknowledge a history of palpitations and has been evaluated by service desk agent for this in the past. Review of patient's records demonstrates that patient previously was on diltiazem for tachycardia although she does not currently take this medication. Patient encouraged to follow-up with cardiology for reevaluation of tachycardia. Patient has had similar presentation in the past with CTAs performed in the past that did not demonstrate PE in the past. The patient has atypical chest pain as the patient' s chest pain is not suggestive of pulmonary embolus, cardiac ischemia, aortic dissection, or other serious etiology. Given the extremely low risk of these diagnoses for the test in evaluation for these possibilities does not appear to be indicated at this time. Patient has been instructed to return if the symptoms worsen or change in any way. - Vital Signs Vital signs: Temp Pulse Resp BP Pulse Ox 99.2 F 122 H 22 H 133/75 H 99 04/18/17 11:37 04/18/17 11:37 04/18/17 11:37 04/18/17 11:37 04/18/17 11:37 - Laboratory Result Diagrams: 04/18/17 12:24 04/18/17 12:24 Laboratory results interpreted by me: 04/18/17 14:43 Labs- Entire Visit 04/18/17 04/18/17 04/18/17 12:24 12:24 12:24 WBC 11.2 H RBC 4.07 Hgb 10.3 L Hct 32.7 L MCV 80 MCH 25.3 L MCHC 31.5 L RDW 18.7 H Plt Count 461 H Seg Neutrophils % 68.1 Lymphocytes % 25.0 Monocytes % 4.3 Eosinophils % 2.0 Basophils % 0.6 Absolute Neutrophils 7.6 Absolute Lymphocytes 2.8 Absolute Monocytes 0.5 Absolute Eosinophils 0.2 Absolute Basophils 0.1 Sodium 143.0 Potassium 4.1 Chloride 105 Carbon Dioxide 26 Anion Gap 12 BUN 7 Creatinine 0.72 Est GFR ( Amer) > 60 Est GFR (Non-Af Amer) > 60 Glucose 129 H Calcium 9.4 Total Bilirubin 0.3 Direct Bilirubin 0.1 Neonat Total Bilirubin Not Reportable Neonat Direct Bilirubin Not Reportable Neonat Indirect Bili Not Reportable AST 17 ALT 18 Alkaline Phosphatase 113 Total Protein 7.0 Albumin 3.9 Serum HCG, Qual NEGATIVE Urine Color Urine Appearance Urine pH Ur Specific Monroe Urine Protein Urine Glucose (UA) Urine Ketones Urine Blood Urine Nitrite Urine Bilirubin Urine Urobilinogen Ur Leukocyte Esterase Urine WBC (Auto) Urine RBC (Auto) Urine Bacteria (Auto) Squamous Epi Cells Auto Urine Mucus (Auto) Urine Ascorbic Acid 04/18/17 12:35 WBC RBC Hgb Hct MCV MCH MCHC RDW Plt Count Seg Neutrophils % Lymphocytes % Monocytes % Eosinophils % Basophils % Absolute Neutrophils Absolute Lymphocytes Absolute Monocytes Absolute Eosinophils Absolute Basophils Sodium Potassium Chloride Carbon Dioxide Anion Gap BUN Creatinine Est GFR ( Amer) Est GFR (Non-Af Amer) Glucose Calcium Total Bilirubin Direct Bilirubin Neonat Total Bilirubin Neonat Direct Bilirubin Neonat Indirect Bili AST ALT Alkaline Phosphatase Total Protein Albumin Serum HCG, Qual Urine Color YELLOW Urine Appearance CLOUDY Urine pH 6.0 Ur Specific Monroe 1.030 Urine Protein 30 H Urine Glucose (UA) NEGATIVE Urine Ketones NEGATIVE Urine Blood NEGATIVE Urine Nitrite NEGATIVE Urine Bilirubin NEGATIVE Urine Urobilinogen 2.0 H Ur Leukocyte Esterase MODERATE H Urine WBC (Auto) 15 Urine RBC (Auto) 3 Urine Bacteria (Auto) TRACE Squamous Epi Cells Auto 24 Urine Mucus (Auto) FEW Urine Ascorbic Acid NEGATIVE - Diagnostic Test Radiology reviewed: Reports reviewed - EKG Interpretation by Me EKG shows normal: Sinus rhythm Rate: Tachycardia Rhythm: NSR Discharge - Discharge Clinical Impression: Bronchitis, History of asthma, chest pain with cough Condition: Stable Disposition: HOME, SELF-CARE Instructions: Asthma (OM), Bronchitis With Bronchospasm (Wheezing) (OM), Chest Pain of Unclear Cause (OM) Additional Instructions: Return immediately for any new or worsening symptoms Followup with your primary care provider, call tomorrow to make a followup appointment Follow-up with cardiology for further evaluation of continued tachycardia Use your albuterol inhaler at home or nebulizer as directed Prescriptions: Codeine/Promethazine HCl [Promethazine-Codeine Syrup] 1 tsp PO Q4 PRN #80 ml PRN Reason: Prednisone [Deltasone 20 mg Tablet] 3 tab PO DAILY 4 Days tablet Referrals: ERIC MYERS MD [Primary Care Provider] - Follow up as needed VIVIEN SHARMA MD [ACTIVE STAFF] - Follow up tomorrow [facility] [Provider Group] - Follow up tomorrow
[2017-04-18 12:29] LABS: ABSOLUTE BASOPHILS # (AUTO) 0.1 10^3/uL (0.0-0.2); ABSOLUTE EOSINOPHILS # (AUTO) 0.2 10^3/uL (0.0-0.6); ABSOLUTE LYMPHOCYTES (AUTO) 2.8 10^3/uL (0.5-4.7); ABSOLUTE MONOCYTES (AUTO) 0.5 10^3/uL (0.1-1.4); ABSOLUTE NEUT (AUTO) 7.6 10^3/uL (1.7-8.2); BASOPHILS % (AUTO) 0.6 % (0-2); HEMATOCRIT 32.7 % (36.0-47.0); HEMOGLOBIN 10.3 g/dL (12.0-15.5); MEAN CORPUSCULAR HEMOGLOBIN 25.3 pg (27.0-33.4); MEAN CORPUSCULAR HGB CONC 31.5 g/dL (32.0-36.0); MEAN CORPUSCULAR VOLUME 80 fl (80-97); MONOCYTES % (AUTO) 4.3 % (3-13); PLATELET COUNT 461 10^3/uL (150-450); RED BLOOD COUNT 4.07 10^6/uL (3.72-5.28); RED CELL DISTRIBUTION WIDTH 18.7 % (11.5-14.0); SEGMENTED NEUTROPHILS % (AUTO) 68.1 % (42-78); TOTAL CELLS COUNTED % (AUTO) 100 %; WHITE BLOOD COUNT 11.2 10^3/uL (4.0-10.5)
[2017-04-18 12:47] LABS: ALANINE AMINOTRANSFERASE 18 U/L (9-52); ALBUMIN 3.9 g/dL (3.5-5.0); ALKALINE PHOSPHATASE 113 U/L (38-126); ANION GAP 12 (5-19); ASPARTATE AMINO TRANSFERASE 17 U/L (14-36); BILIRUBIN,DIRECT 0.1 mg/dL (0.0-0.4); BILIRUBIN,TOTAL 0.3 mg/dL (0.2-1.3); BLOOD UREA NITROGEN 7 mg/dL (7-20); CALCIUM 9.4 mg/dL (8.4-10.2); CARBON DIOXIDE 26 mmol/L (22-30); CHLORIDE 105 mmol/L (98-107); GLUCOSE 129 mg/dL (75-110); POTASSIUM 4.1 mmol/L (3.6-5.0)
--- NOTE | 2017-04-18 13:01 | RADIOLOGY REPORT (SQ) ---
EXAM DESCRIPTION: CHEST PA/LAT COMPLETED DATE/TIME: 04/18/2017 12:37 pm REASON FOR STUDY: cough COMPARISON: 09/11/2016 EXAM PARAMETERS: NUMBER OF VIEWS: two views TECHNIQUE: Digital Frontal and Lateral radiographic views of the chest acquired. RADIATION DOSE: NA LIMITATIONS: none FINDINGS: LUNGS AND PLEURA: No opacities, masses or pneumothorax. No pleural effusion. MEDIASTINUM AND HILAR STRUCTURES: No masses or contour abnormalities. HEART AND VASCULAR STRUCTURES: Heart normal size. No evidence for failure. BONES: No acute findings. HARDWARE: None in the chest. OTHER: No other significant finding. IMPRESSION: NO SIGNIFICANT RADIOGRAPHIC FINDING IN THE CHEST. TECHNICAL DOCUMENTATION: JOB ID: [id number] [employer]- All Rights Reserved
[2017-04-18] MEDS ORDERED: IPRATROPIUM/ALBUTEROL 0.5-2.5 MG/3 ML AMPUL NEB ONE (13:16)
[2017-04-18 13:17] LABS: APPEARANCE,URINE CLOUDY; BILIRUBIN,URINE NEGATIVE (NEGATIVE); COLOR,URINE YELLOW; GLUCOSE, URINE NEGATIVE (NEGATIVE); KETONES,URINE NEGATIVE (NEGATIVE); LEUKOCYTE ESTERASE,URINE MODERATE (NEGATIVE); NITRITE,URINE NEGATIVE (NEGATIVE); PROTEIN,URINE 30 mg/dL (NEGATIVE)
[2017-04-18 14:26] VITALS: BP 125/63
[2017-04-18] MEDS ORDERED: PREDNISONE 20 MG TABLET PO ONE (14:36)
--- NOTE | 2017-04-18 18:49 | EKG REPORT ---
SEVERITY:- OTHERWISE NORMAL ECG - SINUS TACHYCARDIA : Confirmed by: Luis Eduardo Medrano MD 18-Apr-2017 18:48:29
== END 2017-04-18 15:20 | disposition home or self-care (01) ==
LOC: ER 11:19
DX: J40 Bronchitis, not specified as acute or chronic (principal); R07.9 Chest pain, unspecified; R05 Cough; R50.9 Fever, unspecified; R51 Headache; R42 Dizziness and giddiness; R09.81 Nasal congestion
CPT/HCPCS: 93005; 94640; 99284; 96361; 96374; 36415; 87040; 87086; 84703; 85025; 87077; 80053; 81001; 71046; 93010; J1885; J7512; J7030; J7620

== ENCOUNTER 2017-05-21 11:55 | Emergency (ER) | payer SELFPAY ==
--- NOTE | 2017-05-21 12:30 | ER Document Report ---
ED General - General Chief Complaint: Cough Stated Complaint: COUGH,NAUSEA,EAR PAIN,BODY PAIN Time Seen by Provider: 05/21/17 12:03 Information source: Patient Notes: HPI-32 years old female presents today with earache sore throat cough on and off for the last few days. Recently she was diagnosed with possibly anemia. Was started on iron tablets by the primary care physician. She denies any wheezing. Denies any chest pain. Denies any abdominal pain nausea vomiting. Denies any fever chills or other constitutional symptoms. REVIEW OF SYSTEMS: CONSTITUTIONAL : Denies fever, chills, or sweats. Denies recent illness. EENT: Denies eye, ear, throat, or mouth pain or symptoms. Denies nasal or sinus congestion or discharge. Denies throat, tongue, or mouth swelling or difficulty swallowing. CARDIOVASCULAR: Denies chest pain. Denies palpitations or racing or irregular heart beat. Denies ankle edema. RESPIRATORY: Denies cough, cold, or chest congestion. Denies shortness of breath, difficulty breathing, or wheezing. GASTROINTESTINAL: Denies abdominal pain or distention. Denies nausea, vomiting , or diarrhea. Denies blood in vomitus, stools, or per rectum. Denies black, tarry stools. Denies constipation. GENITOURINARY: Denies difficulty urinating, painful urination, burning, frequency, blood in urine, or discharge. FEMALE GENITOURINARY: Denies vaginal bleeding, heavy or abnormal periods, irregular periods. Denies vaginal discharge or odor. MUSCULOSKELETAL: Denies back or neck pain or stiffness. Denies joint pain or swelling. SKIN: Denies rash, lesions or sores. HEMATOLOGIC : Denies easy bruising or bleeding. LYMPHATIC: Denies swollen, enlarged glands. NEUROLOGICAL: Denies confusion or altered mental status. Denies passing out or loss of consciousness. Denies dizziness or lightheadedness. Denies headache. Denies weakness or paralysis or loss of use of either side. Denies problems with gait or speech. Denies sensory loss, numbness, or tingling. Denies seizures. PSYCHIATRIC: Denies anxiety or stress. Denies depression, suicidal ideation, or homicidal ideation. ALL OTHER SYSTEMS REVIEWED AND NEGATIVE. PHYSICAL EXAMINATION: GENERAL: Well-appearing, well-nourished and in no acute distress. Morbidly obese HEAD: Atraumatic, normocephalic. EYES: Pupils equal round and reactive to light, extraocular movements intact, conjunctiva are normal. ENT: Nares patent, oropharynx clear without exudates. Moist mucous membranes. NECK: Normal range of motion, supple without lymphadenopathy LUNGS: Breath sounds clear to auscultation bilaterally and equal. No wheezes rales or rhonchi. HEART: Regular rate and rhythm without murmurs ABDOMEN: Soft, nontender, nondistended abdomen. No guarding, no rebound. No masses appreciated. Female : deferred Musculoskeletal: Normal range of motion, no pitting or edema. No cyanosis. NEUROLOGICAL: Cranial nerves grossly intact. Normal speech, normal gait. Normal sensory, motor exams PSYCH: Normal mood, normal affect. SKIN: Warm, Dry, normal turgor, no rashes or lesions noted. Dictation was performed using [employer] recognition software TRAVEL OUTSIDE OF THE [place] IN LAST 30 DAYS: No - Related Data Allergies/Adverse Reactions: amoxicillin [Amoxicillin] Allergy (Verified 04/18/17 11:27) benzonatate [From Tessalon Perles] Allergy (Verified 04/18/17 11:27) iloperidone [From Fanapt] Allergy (Verified 04/18/17 11:27) Penicillins Allergy (Verified 04/18/17 11:27) Past Medical History - Social History Smoking Status: Never Smoker Chew tobacco use (# tins/day): No Frequency of alcohol use: None Drug Abuse: None Family History: Other - Brother with blood clots, mother with hysterectomy Patient has suicidal ideation: No Patient has homicidal ideation: No - Past Medical History Cardiac Medical History: Reports: Hx Hypertension Denies: Hx Heart Attack Pulmonary Medical History: Reports: Hx Asthma, Hx Sleep Apnea Denies: Hx Bronchitis, Hx COPD, Hx Pneumonia Neurological Medical History: Denies: Hx Seizures Endocrine Medical History: Denies: Hx Diabetes Mellitus Type 1, Hx Diabetes Mellitus Type 2 Renal/ Medical History: Reports: Hx Ovarian Cysts. Denies: Hx Peritoneal Dialysis GI Medical History: Reports: Hx Gastroesophageal Reflux Disease Musculoskeltal Medical History: Denies Hx Arthritis Psychiatric Medical History: Reports: Hx Anxiety, Hx Attention Deficit Hyperactivity Disorder, Hx Depression Past Surgical History: Reports: Hx Adenoidectomy, Hx Gynecologic Surgery - R ovarian cyst 2010 Uterine fibroid removal 2009 in [place]., Hx Tonsillectomy - Immunizations Hx Diphtheria, Pertussis, Tetanus Vaccination: Yes - 06/2011 Physical Exam - Vital signs Vitals: Temp Pulse BP Pulse Ox 98.9 F 129 H 136/94 H 99 05/21/17 12:08 05/21/17 12:08 05/21/17 12:08 05/21/17 12:08 Course - Re-evaluation Re-evalutation: 05/21/17 13:49 No change of status - Vital Signs Vital signs: Temp Pulse Resp BP Pulse Ox 98.9 F 111 H 136/94 H 99 05/21/17 12:08 05/21/17 12:30 05/21/17 12:08 05/21/17 12:08 - Laboratory Result Diagrams: 05/21/17 13:05 05/21/17 13:05 Laboratory results interpreted by me: 05/21/17 05/21/17 13:05 13:05 Hgb 10.5 L Hct 33.2 L MCH 26.4 L MCHC 31.5 L RDW 18.5 H Glucose 152 H Discharge - Discharge Clinical Impression: Mild chronic anemia, Otalgia of both ears Condition: Fair Disposition: HOME, SELF-CARE Instructions: Anemia ([facility]), Use of Ear Drops ([facility]) Prescriptions: Neomy Sulf/Polymyx B Sulf/Hc [Cortisporin Otic Susp] 4 drop QID #1 bottle
[2017-05-21 13:24] LABS: HEMATOCRIT 33.2 % (36.0-47.0); HEMOGLOBIN 10.5 g/dL (12.0-15.5); MEAN CORPUSCULAR HEMOGLOBIN 26.4 pg (27.0-33.4); MEAN CORPUSCULAR HGB CONC 31.5 g/dL (32.0-36.0); MEAN CORPUSCULAR VOLUME 84 fl (80-97); PLATELET COUNT 406 10^3/uL (150-450); RED BLOOD COUNT 3.97 10^6/uL (3.72-5.28); RED CELL DISTRIBUTION WIDTH 18.5 % (11.5-14.0); WHITE BLOOD COUNT 10.1 10^3/uL (4.0-10.5)
[2017-05-21 13:41] LABS: ALANINE AMINOTRANSFERASE 34 U/L (9-52); ALBUMIN 3.6 g/dL (3.5-5.0); ALKALINE PHOSPHATASE 110 U/L (38-126); ANION GAP 7 (5-19); ASPARTATE AMINO TRANSFERASE 24 U/L (14-36); BILIRUBIN,DIRECT 0.2 mg/dL (0.0-0.4); BILIRUBIN,TOTAL 0.2 mg/dL (0.2-1.3); BLOOD UREA NITROGEN 8 mg/dL (7-20); CALCIUM 9.1 mg/dL (8.4-10.2); CARBON DIOXIDE 29 mmol/L (22-30); CHLORIDE 102 mmol/L (98-107); GLUCOSE 152 mg/dL (75-110); POTASSIUM 4.2 mmol/L (3.6-5.0); SODIUM 137.7 mmol/L (137-145); TOTAL PROTEIN 7.1 g/dL (6.3-8.2)
[2017-05-21 14:17] VITALS: BP 139/93
== END 2017-05-21 14:21 | disposition home or self-care (01) ==
LOC: ER 11:55
DX: D64.9 Anemia, unspecified (principal); H92.03 Otalgia, bilateral; R05 Cough; J02.9 Acute pharyngitis, unspecified; I10 Essential (primary) hypertension; J45.909 Unspecified asthma, uncomplicated; Z88.0 Allergy status to penicillin; Z88.8 Allergy status to other drugs, medicaments and biological substances
CPT/HCPCS: 36415; 80053; 85027; 99283

== ENCOUNTER → 2017-05-30 | Outpatient (CLI) | payer OTHER ==
[2017-05-30 18:36] LABS: ABSOLUTE RETICS # 0.135 10^6/uL (0.028-0.122); RETICULOCYTE COUNT (AUTO) 3.37 % (0.66-2.85)
[2017-05-30 18:51] LABS: ABSOLUTE EOSINOPHILS # (AUTO) 0.2 10^3/uL (0.0-0.6); ABSOLUTE LYMPHOCYTES (AUTO) 3.7 10^3/uL (0.5-4.7); ABSOLUTE MONOCYTES (AUTO) 0.7 10^3/uL (0.1-1.4); ABSOLUTE NEUT (AUTO) 10.5 10^3/uL (1.7-8.2); BASOPHILS % (AUTO) 0.3 % (0-2); EOSINOPHILS % (AUTO) 1.1 % (0-6); HEMATOCRIT 34.5 % (36.0-47.0); HEMOGLOBIN 10.7 g/dL (12.0-15.5); LYMPHOCYTES % (AUTO) 24.5 % (13-45); MEAN CORPUSCULAR HEMOGLOBIN 26.3 pg (27.0-33.4); MEAN CORPUSCULAR VOLUME 85 fl (80-97); MONOCYTES % (AUTO) 4.7 % (3-13); PLATELET COUNT 445 10^3/uL (150-450); RED BLOOD COUNT 4.07 10^6/uL (3.72-5.28); RED CELL DISTRIBUTION WIDTH 18.7 % (11.5-14.0); SEGMENTED NEUTROPHILS % (AUTO) 69.4 % (42-78); TOTAL CELLS COUNTED % (AUTO) 100 %; WHITE BLOOD COUNT 15.1 10^3/uL (4.0-10.5)
[2017-05-30 18:53] LABS: ANION GAP 11 (5-19); BLOOD UREA NITROGEN 11 mg/dL (7-20); CALCIUM 9.8 mg/dL (8.4-10.2); CARBON DIOXIDE 27 mmol/L (22-30); CHLORIDE 102 mmol/L (98-107); GLUCOSE 127 mg/dL (75-110); POTASSIUM 4.3 mmol/L (3.6-5.0); SODIUM 140.1 mmol/L (137-145)
== END ==
LOC: CCC 17:19
DX: Z12.9 Encounter for screening for malignant neoplasm, site unspecified (principal)
CPT/HCPCS: 36415; 80048; 83036; 84443; 85025; 85045

== ENCOUNTER 2017-06-03 13:44 | Emergency (ER) | payer SELFPAY ==
[2017-06-03 13:50] VITALS: BP 129/78
--- NOTE | 2017-06-03 14:07 | ER Document Report ---
ED General - General Chief Complaint: Shortness Of Breath Stated Complaint: COUGH,CONGESTION,FEVER,BODY ACHES Time Seen by Provider: 06/03/17 13:56 Notes: 32-year-old female here with complaints of dry cough congestion runny nose sore throat shortness of breath wheezing ongoing for the past 3 weeks. She has seen her primary doctor about this and he has instructed her to continue using her inhaler. She has not been on any antibiotics recently. She states that she has been using her inhaler and OTC meds. She also complains that this 3 weeks long illness has made her anxiety worse. Immunizations up-to-date. TRAVEL OUTSIDE OF THE [place] IN LAST 30 DAYS: No - Related Data Allergies/Adverse Reactions: amoxicillin [Amoxicillin] Allergy (Verified 06/03/17 13:54) benzonatate [From Tessalon Perles] Allergy (Verified 06/03/17 13:54) iloperidone [From Fanapt] Allergy (Verified 06/03/17 13:54) Penicillins Allergy (Verified 06/03/17 13:54) Past Medical History - Social History Smoking Status: Former Smoker Chew tobacco use (# tins/day): No Frequency of alcohol use: None Drug Abuse: None Family History: Other - Brother with blood clots, mother with hysterectomy Patient has suicidal ideation: No Patient has homicidal ideation: No - Past Medical History Cardiac Medical History: Reports: Hx Hypertension Denies: Hx Heart Attack Pulmonary Medical History: Reports: Hx Asthma, Hx Sleep Apnea Denies: Hx Bronchitis, Hx COPD, Hx Pneumonia Neurological Medical History: Denies: Hx Seizures Endocrine Medical History: Denies: Hx Diabetes Mellitus Type 1, Hx Diabetes Mellitus Type 2 Renal/ Medical History: Reports: Hx Ovarian Cysts. Denies: Hx Peritoneal Dialysis GI Medical History: Reports: Hx Gastroesophageal Reflux Disease Musculoskeltal Medical History: Denies Hx Arthritis Psychiatric Medical History: Reports: Hx Anxiety, Hx Attention Deficit Hyperactivity Disorder, Hx Depression Past Surgical History: Reports: Hx Adenoidectomy, Hx Gynecologic Surgery - R ovarian cyst 2010 Uterine fibroid removal 2009 in [place]., Hx Tonsillectomy - Immunizations Hx Diphtheria, Pertussis, Tetanus Vaccination: Yes - 06/2011 Review of Systems - Review of Systems Notes: See history of present illness for pertinent positive review of systems; otherwise all review of systems have been reviewed and are negative Physical Exam - Vital signs Vitals: Temp Pulse Resp BP Pulse Ox 98.3 F 108 H 16 129/78 H 97 06/03/17 13:48 06/03/17 13:48 06/03/17 13:48 06/03/17 13:48 06/03/17 13:48 - Notes Notes: PHYSICAL EXAMINATION: GENERAL: Well-appearing and in no acute distress. Morbidly obese female seen sitting in chair. HEAD: Atraumatic, normocephalic. EYES: Pupils equal round and reactive to light, extraocular movements intact, sclera anicteric, conjunctiva are normal. ENT: nares patent, oropharynx minimal erythema without exudates. Moist mucous membranes. NECK: Normal range of motion, supple without lymphadenopathy LUNGS: CTAB and equal. No wheezes rales or rhonchi. HEART: Regular rate (high 90s to low 100s today, however patient states her baseline heart rate is 110s-120s) and rhythm without murmurs ABDOMEN: Soft, no tenderness. No facial grimacing/wincing upon palpation. No guarding, no rebound. EXTREMITIES: Normal range of motion, no pitting edema. No cyanosis. NEUROLOGICAL: Cranial nerves grossly intact. Normal sensory/motor exams. PSYCH: Normal mood, normal affect. SKIN: Warm, Dry, normal turgor, no rashes or lesions noted Course - Re-evaluation Re-evalutation: 06/03/17 14:07 MEDICAL DECISION MAKING: Concern for pneumonia/bronchitis versus URI versus allergic rhinitis Will prescribe steroids azithromycin and she requests medication for anxiety so hydroxyzine as needed Instructed follow-up PCP next day or few Patient understands and agrees to the plan of care - Vital Signs Vital signs: Temp Pulse Resp BP Pulse Ox 98.3 F 108 H 16 129/78 H 97 06/03/17 13:48 06/03/17 13:48 06/03/17 13:48 06/03/17 13:48 06/03/17 13:48 Discharge - Discharge Clinical Impression: URI (upper respiratory infection) Qualifiers: URI type: unspecified URI Qualified Code(s): J06.9 - Acute upper respiratory infection, unspecified Condition: Good Disposition: HOME, SELF-CARE Additional Instructions: Finish antibiotics/steroids and do not skip any doses. You were seen in the emergency department at [facility]. If you were given any sedating medications, be sure not to operate heavy machinery (example - driving ) and be sure you are not too sedated to walk appropriately. Please followup with your primary physician in the next few days for further management/ evaluation. Please return to the emergency department for worsening of symptoms or any symptom that you deem to be concerning or life-threatening. Thank you for allowing us to be part of your care. Prescriptions: Hydroxyzine HCl 50 mg PO Q8HP PRN #10 tablet PRN Reason: Anxiety Azithromycin [Zithromax 250 mg Tablet] 250 mg PO ASDIR PRN #6 tablet PRN Reason: Prednisone [Deltasone 20 mg Tablet] 3 tab PO DAILY 5 Days tablet
== END 2017-06-03 14:12 | disposition home or self-care (01) ==
LOC: ER 13:44
DX: J06.9 Acute upper respiratory infection, unspecified (principal); R05 Cough; R09.89 Other specified symptoms and signs involving the circulatory and respiratory systems; R09.81 Nasal congestion; J02.9 Acute pharyngitis, unspecified; R06.02 Shortness of breath; Z87.891 Personal history of nicotine dependence; I10 Essential (primary) hypertension; J45.909 Unspecified asthma, uncomplicated
CPT/HCPCS: 99284

== ENCOUNTER 2017-06-12 02:41 | Emergency (ER) | payer SELFPAY ==
--- NOTE | 2017-06-12 02:43 | ER Document Report ---
ED General - General Stated Complaint: BLOODSUGAR ISSUES Time Seen by Provider: 06/12/17 02:43 Mode of Arrival: Ambulatory Information source: Patient Notes: 32 yo non smoker, recently tx for bronchitis with antibiotics and prednisone, newly dx DM , anemic, GERD, sleep apnea (vpap), female woke up drenched in sweat , retrosternal chest heaviness- midline, like burp stuck 3/5, trouble remembering, felt "out of it", shakey, "weird" at 0010. Checked glucose and it was the highest it has ever been, 378 so called EMS. Urinary frequency, vaginal itching since Monday morning. Not taking the Metformin 1000mg per day that the [facility] ordered for her to take. TRAVEL OUTSIDE OF THE [place] IN LAST 30 DAYS: No - Related Data Allergies/Adverse Reactions: amoxicillin [Amoxicillin] Allergy (Verified 06/03/17 13:54) benzonatate [From Tessalon Perles] Allergy (Verified 06/03/17 13:54) iloperidone [From Fanapt] Allergy (Verified 06/03/17 13:54) Penicillins Allergy (Verified 06/03/17 13:54) Past Medical History - General Information source: Patient - Social History Smoking Status: Never Smoker Frequency of alcohol use: None Drug Abuse: None Lives with: Parents Family History: DM, Other - Brother with blood clots, mother with hysterectomy - Past Medical History Cardiac Medical History: Reports: Hx Hypertension Pulmonary Medical History: Reports: Hx Asthma, Hx Sleep Apnea Endocrine Medical History: Reports: Hx Diabetes Mellitus Type 2 - newly dx Renal/ Medical History: Reports: Hx Ovarian Cysts. Denies: Hx Peritoneal Dialysis GI Medical History: Reports: Hx Gastroesophageal Reflux Disease Psychiatric Medical History: Reports: Hx Anxiety, Hx Attention Deficit Hyperactivity Disorder, Hx Depression Past Surgical History: Reports: Hx Adenoidectomy, Hx Gynecologic Surgery - R ovarian cyst 2010 Uterine fibroid removal 2010 in [place]., Hx Tonsillectomy - Immunizations Hx Diphtheria, Pertussis, Tetanus Vaccination: Yes - 06/2011 Review of Systems - Review of Systems Constitutional: See HPI EENT: No symptoms reported Cardiovascular: See HPI Respiratory: No symptoms reported Gastrointestinal: No symptoms reported Genitourinary: No symptoms reported Female Genitourinary: No symptoms reported Musculoskeletal: No symptoms reported Skin: No symptoms reported Hematologic/Lymphatic: No symptoms reported Neurological/Psychological: See HPI Physical Exam - Vital signs Vitals: Temp 98.4 F 06/12/17 03:07 Interpretation: Hypertensive - Notes Notes: morbidly obese - General General appearance: Appears well, Alert - HEENT Head: Normocephalic, Atraumatic Eyes: Normal Conjunctiva: Normal Pupils: PERRL Tympanic membrane: Normal Mucous membranes: Dry Pharynx: Normal Neck: Supple. No: Lymphadenopathy - Respiratory Respiratory status: No respiratory distress Chest status: Nontender Breath sounds: Normal Chest palpation: Normal - Cardiovascular Rhythm: Regular Heart sounds: Normal auscultation Murmur: No - Abdominal Inspection: Normal Distension: No distension Bowel sounds: Normal Tenderness: Nontender. No: Tender Organomegaly: No organomegaly - Back Back: Normal, Nontender. No: CVA tenderness - Extremities General upper extremity: Normal inspection, Nontender, Normal color, Normal ROM , Normal temperature General lower extremity: Normal inspection, Nontender, Normal color, Normal ROM , Normal temperature, Normal weight bearing. No: Aubree's sign - Neurological Neuro grossly intact: Yes Cognition: Normal Orientation: AAOx4 [place] Coma Scale Eye Opening: Spontaneous Marci Coma Scale Verbal: Oriented Marci Coma Scale Motor: Obeys Commands Marci Coma Scale Total: 15 Speech: Normal Motor strength normal: LUE, RUE, LLE, RLE Sensory: Normal - Psychological Associated symptoms: Normal affect, Normal mood - Skin Skin Temperature: Warm Skin Moisture: Dry Skin Color: Normal Skin irregularity: negative: Rash Course - Re-evaluation Re-evalutation: 06/12/17 06:18 dr sainz OK with pt being discharged home after reviewing case, labs etc. patient's glucose did go down with some IV fluid. Urinalysis is suspect for urinary tract infection treated with Rocephin 1 g IV and prescription for Macrobid. I have instructed for the patient to take her Metformin and follow- up with the [facility] on Monday. If her symptoms worsen I told her to return to the emergency department. I especially emphasized not eating the sweets, sugar drinks, sweet tea because this drives her glucose higher. Also told her to stop the prednisone which has elevated glucose on this week. 06/12/17 06:44 - Vital Signs Vital signs: Temp Pulse Resp BP Pulse Ox 98.4 F 24 H 123/73 100 06/12/17 03:07 06/12/17 04:01 06/12/17 04:01 06/12/17 04:01 - Laboratory Result Diagrams: 06/12/17 02:07 06/12/17 02:07 Laboratory results interpreted by me: 06/12/17 06/12/17 06/12/17 02:07 02:07 02:40 WBC 17.4 H Hgb 11.6 L MCH 26.8 L MCHC 30.9 L RDW 18.8 H Plt Count 500 H Seg Neutrophils % 86.9 H Lymphocytes % 10.2 L Monocytes % 2.6 L Absolute Neutrophils 15.1 H Sodium 135.3 L Chloride 97 L Est GFR (Non-Af Amer) 54 L Glucose 432 H* POC Glucose Alkaline Phosphatase 148 H Urine Glucose (UA) >=500 H Urine Blood MODERATE H Ur Leukocyte Esterase SMALL H 06/12/17 06/12/17 02:48 05:18 WBC Hgb MCH MCHC RDW Plt Count Seg Neutrophils % Lymphocytes % Monocytes % Absolute Neutrophils Sodium Chloride Est GFR (Non-Af Amer) Glucose POC Glucose 356 H 335 H Alkaline Phosphatase Urine Glucose (UA) Urine Blood Ur Leukocyte Esterase Discharge - Discharge Clinical Impression: Hyperglycemia, Uncontrolled type 2 diabetes, Urinary tract infection, Chest pain Condition: Good Disposition: HOME, SELF-CARE Instructions: Diabetes (OM), Glucophage ([facility]), Urinary Tract Infection ([facility]), Rocephin ([facility]), Nitrofurantoin ([facility]) Additional Instructions: drink 2 L of water daily Stop eating sweets and sugared drinks or tea Take your metformin as ordered by the [facility] Stop the prednisone Urine culture is pending Take the Macrobid 100 mg twice a day for 1 week for the urinary tract infection Return to the emergency room for any concerns or worsening of symptoms See the [facility] for recheck Monday Prescriptions: Nitrofurantoin/Nitrofuran Mac [Macrobid 100 mg Capsule] 100 mg PO BID #14 capsule Forms: Return to Work
[2017-06-12] MEDS ORDERED: ASPIRIN 81 MG TABLET, CHEWABLE PO ONE (03:01)
[2017-06-12] MEDS ORDERED: NORMAL SALINE 1000 ML 500 ML IV ONE ×2 (03:02→04:17)
[2017-06-12 03:20] LABS: ALANINE AMINOTRANSFERASE 32 U/L (9-52); ALBUMIN 3.9 g/dL (3.5-5.0); ALKALINE PHOSPHATASE 148 U/L (38-126); ANION GAP 16 (5-19); ASPARTATE AMINO TRANSFERASE 21 U/L (14-36); BILIRUBIN,DIRECT 0.2 mg/dL (0.0-0.4); BILIRUBIN,TOTAL 0.2 mg/dL (0.2-1.3); BLOOD UREA NITROGEN 18 mg/dL (7-20); CALCIUM 9.4 mg/dL (8.4-10.2); CARBON DIOXIDE 22 mmol/L (22-30); CHLORIDE 97 mmol/L (98-107); CREATINE KINASE 49 U/L (30-135); POTASSIUM 4.7 mmol/L (3.6-5.0); SODIUM 135.3 mmol/L (137-145); TOTAL PROTEIN 7.5 g/dL (6.3-8.2)
[2017-06-12 03:23] LABS: ABSOLUTE BASOPHILS # (AUTO) 0.1 10^3/uL (0.0-0.2); ABSOLUTE LYMPHOCYTES (AUTO) 1.8 10^3/uL (0.5-4.7); ABSOLUTE MONOCYTES (AUTO) 0.5 10^3/uL (0.1-1.4); ABSOLUTE NEUT (AUTO) 15.1 10^3/uL (1.7-8.2); BASOPHILS % (AUTO) 0.3 % (0-2); HEMATOCRIT 37.5 % (36.0-47.0); HEMOGLOBIN 11.6 g/dL (12.0-15.5); LYMPHOCYTES % (AUTO) 10.2 % (13-45); MEAN CORPUSCULAR HEMOGLOBIN 26.8 pg (27.0-33.4); MEAN CORPUSCULAR HGB CONC 30.9 g/dL (32.0-36.0); MEAN CORPUSCULAR VOLUME 87 fl (80-97); MONOCYTES % (AUTO) 2.6 % (3-13); PLATELET COUNT 500 10^3/uL (150-450); RED BLOOD COUNT 4.31 10^6/uL (3.72-5.28); RED CELL DISTRIBUTION WIDTH 18.8 % (11.5-14.0); SEGMENTED NEUTROPHILS % (AUTO) 86.9 % (42-78); TOTAL CELLS COUNTED % (AUTO) 100 %; WHITE BLOOD COUNT 17.4 10^3/uL (4.0-10.5)
[2017-06-12 03:26] LABS: APPEARANCE,URINE CLOUDY; BILIRUBIN,URINE NEGATIVE (NEGATIVE); GLUCOSE, URINE >=500 mg/dL (NEGATIVE); KETONES,URINE NEGATIVE (NEGATIVE); LEUKOCYTE ESTERASE,URINE SMALL (NEGATIVE); NITRITE,URINE NEGATIVE (NEGATIVE); PROTEIN,URINE NEGATIVE (NEGATIVE); URINE SPECIFIC GRAVITY 1.013; UROBILINOGEN,URINE NEGATIVE mg/dL (<2.0)
[2017-06-12 03:27] LABS: COLOR,URINE BROWN
[2017-06-12 03:31] LABS: CREATINE KINASE MB 0.28 ng/mL (<4.55); GLUCOSE 432 mg/dL (75-110)
[2017-06-12 03:34] LABS: TROPONIN I < 0.012 ng/mL
--- NOTE | 2017-06-12 03:57 | RADIOLOGY REPORT (SQ) ---
EXAM DESCRIPTION: CHEST SINGLE VIEW CLINICAL HISTORY: 32 years Female, chest heaviness COMPARISON: 2.20.18 NUMBER OF VIEWS/TECHNIQUE: 1/AP FINDINGS: Adequate lung volume, clear parenchyma, normal cardiac silhouette, and intact bony thorax. IMPRESSION: No acute cardiopulmonary findings.
[2017-06-12] MEDS ORDERED: CEFTRIAXONE INJ 1000 MG VIAL IV ONE (04:13)
[2017-06-12] MEDS ORDERED: NORMAL SALINE 1000 ML 1,000 ML IV ONE (04:14)
[2017-06-12 05:01] LABS: VENOUS BLOOD BASE EXCESS -1.1 mmol/L; VENOUS BLOOD HCO3 23.9 mmol/L (20-32); VENOUS BLOOD PCO2 40.8 mmHg (35-63); VENOUS BLOOD PH 7.39 (7.30-7.42)
--- NOTE | 2017-06-12 06:18 | EKG REPORT ---
SEVERITY:- NORMAL ECG - SINUS RHYTHM : Confirmed by: Luis Eduardo Medrano MD 12-Jun-2017 06:18:03
[2017-06-12 07:00] VITALS: BP 141/80
== END 2017-06-12 07:00 | disposition home or self-care (01) ==
LOC: ER 02:41
DX: E11.65 Type 2 diabetes mellitus with hyperglycemia (principal); N39.0 Urinary tract infection, site not specified; R07.9 Chest pain, unspecified; I10 Essential (primary) hypertension; J45.909 Unspecified asthma, uncomplicated; Z88.0 Allergy status to penicillin
CPT/HCPCS: 93005; 99285; 96361; 96365; 36415; 87086; 82553; 82962; 82550; 85025; 80053; 81001; 84484; 82803; 83605; 71045; 93010; J0696; J7030

== ENCOUNTER 2017-06-15 03:06 | Emergency (ER) | payer SELFPAY ==
[2017-06-15] MEDS ORDERED: ONDANSETRON HCL INJ/PF 4 MG/2 ML SDV IV ONE (04:36)
[2017-06-15] MEDS ORDERED: NORMAL SALINE 1000 ML 1,000 ML IV ONE (04:36)
[2017-06-15] MEDS ORDERED: MORPHINE SULFATE 10 MG/ML INJ IV PRN (04:51)
[2017-06-15] MEDS ORDERED: KETOROLAC TROMETHAMINE INJ/PF 30 MG/1 ML SDV IV ONE (04:51)
--- NOTE | 2017-06-15 04:52 | ER Document Report ---
ED General - General Chief Complaint: Abdominal Pain Stated Complaint: ABDOMINAL PAIN Time Seen by Provider: 06/15/17 04:30 Notes: Patient is a 32-year-old female with a past medical history of diabetes, morbid obesity, recent diagnosis of a urinary tract infection currently placed on Macrobid who presents with nausea, vomiting, diarrhea and generalized abdominal cramping. Patient states that her symptoms started approximately 2 AM and have been worsening since that time. She describes the pain as being located generally to her abdomen and as a stabbing, intermittent, moderately severe pain. Nothing improves or worsens her symptoms. She denies any fever. She has not seen her primary doctor regarding today's concerns. She denies any flank tenderness but does note ongoing dysuria. No hematuria. TRAVEL OUTSIDE OF THE [place] IN LAST 30 DAYS: No - Related Data Allergies/Adverse Reactions: amoxicillin [Amoxicillin] Allergy (Verified 06/03/17 13:54) benzonatate [From Tessalon Perles] Allergy (Verified 06/03/17 13:54) iloperidone [From Fanapt] Allergy (Verified 06/03/17 13:54) Penicillins Allergy (Verified 06/03/17 13:54) Past Medical History - General Information source: Patient - Social History Smoking Status: Never Smoker Chew tobacco use (# tins/day): No Frequency of alcohol use: Rare Drug Abuse: None Lives with: Family Family History: DM, Other - Brother with blood clots, mother with hysterectomy Patient has suicidal ideation: No Patient has homicidal ideation: No - Past Medical History Cardiac Medical History: Reports: Hx Hypertension Denies: Hx Heart Attack Pulmonary Medical History: Reports: Hx Asthma, Hx Sleep Apnea Denies: Hx Bronchitis, Hx COPD, Hx Pneumonia Neurological Medical History: Denies: Hx Seizures Endocrine Medical History: Reports: Hx Diabetes Mellitus Type 2 - newly dx. Denies: Hx Diabetes Mellitus Type 1 Renal/ Medical History: Reports: Hx Ovarian Cysts. Denies: Hx Peritoneal Dialysis GI Medical History: Reports: Hx Gastroesophageal Reflux Disease Musculoskeltal Medical History: Denies Hx Arthritis Psychiatric Medical History: Reports: Hx Anxiety, Hx Attention Deficit Hyperactivity Disorder, Hx Depression Past Surgical History: Reports: Hx Adenoidectomy, Hx Gynecologic Surgery - R ovarian cyst 2010 Uterine fibroid removal 2009 in [place]., Hx Tonsillectomy - Immunizations Hx Diphtheria, Pertussis, Tetanus Vaccination: Yes - 06/2011 Review of Systems - Review of Systems Notes: Constitutional: Negative for fever. HENT: Negative for sore throat. Eyes: Negative for visual changes. Cardiovascular: Negative for chest pain. Respiratory: Negative for shortness of breath. Gastrointestinal: Positive for abdominal pain vomiting and diarrhea Genitourinary: Negative for dysuria. Musculoskeletal: Negative for back pain. Skin: Negative for rash. Neurological: Negative for headaches, weakness or numbness. 10 point ROS negative except as marked above and in HPI. Physical Exam - Vital signs Vitals: Temp Pulse Resp BP Pulse Ox 98.7 F 105 H 20 121/101 H 100 06/15/17 03:29 06/15/17 03:29 06/15/17 03:29 06/15/17 03:29 06/15/17 03:29 Interpretation: Tachycardic Notes: PHYSICAL EXAMINATION: GENERAL: Appears moderately uncomfortable but no acute distress HEAD: Atraumatic, normocephalic. EYES: Pupils equal round and reactive to light, extraocular movements intact, sclera anicteric, conjunctiva are normal. ENT: nares patent, oropharynx clear without exudates. Moderately dry mucous membranes. NECK: Normal range of motion, supple without lymphadenopathy LUNGS: Breath sounds clear to auscultation bilaterally and equal. No wheezes rales or rhonchi. HEART: Regular rate and rhythm without murmurs ABDOMEN: Soft, nontender, normoactive bowel sounds. No guarding, no rebound. No masses appreciated. EXTREMITIES: Normal range of motion, no pitting or edema. No cyanosis. NEUROLOGICAL: No focal neurological deficits. Moves all extremities spontaneously and on command. PSYCH: Normal mood, normal affect. SKIN: Warm, Dry, normal turgor, no rashes or lesions noted. Course - Re-evaluation Re-evalutation: 06/15/17 04:52 Presentation of an overall well-appearing patient in no acute distress with complaints of nausea, vomiting, diarrhea. This is consistent with likely viral gastroenteritis. Patient has no abdominal tenderness on exam and specifically no tenderness in the RLQ, LLQ, RUQ. Overall well hydrated on exam. Able to tolerate oral intake here in the emergency department. Low clinical suspicion for any acute life-threatening etiology based on exam and history including acute cholecystitis, SBO, appendicitis, nephrolithiasis, or pylonephritis. CMP without evidence of acute hepatitis or significant dehydration. At this time will discharge with return precautions and follow-up recommendations. Verbal discharge instructions given a the bedside and opportunity for questions given. Medication warnings reviewed. Patient is in agreement with this plan and has verbalized understanding of return precautions and the need for primary care follow-up in the next 24-72 hours. - Vital Signs Vital signs: Temp Pulse Resp BP Pulse Ox 98.7 F 105 H 20 121/101 H 100 06/15/17 03:29 06/15/17 03:29 06/15/17 03:29 06/15/17 03:29 06/15/17 03:29 - Laboratory Result Diagrams: 06/15/17 04:00 06/15/17 04:00 Laboratory results interpreted by me: 06/15/17 06/15/17 06/15/17 04:00 04:00 04:55 WBC 13.0 H Hgb 11.1 L Hct 35.2 L MCHC 31.5 L RDW 18.7 H Absolute Neutrophils 8.9 H Glucose 165 H Urine Blood LARGE H Urine Nitrite POSITIVE H Urine Urobilinogen 2.0 H Ur Leukocyte Esterase TRACE H Discharge - Discharge Clinical Impression: Generalized abdominal cramping, Nausea vomiting and diarrhea Condition: Good Disposition: HOME, SELF-CARE Additional Instructions: Your symptoms are likely due to a viral illness and should resolve in the next several days. Continue to stay hydrated with plenty of solution such as Gatorade or Pedialyte. You are being prescribed Zofran to take as needed for nausea and vomiting. Please return if you develop severe abdominal pain, pass out, become unable to tolerate any oral fluids for 12 more hours, or any other symptoms that are concerning to you.
[2017-06-15 05:06] LABS: ABSOLUTE EOSINOPHILS # (AUTO) 0.2 10^3/uL (0.0-0.6); ABSOLUTE LYMPHOCYTES (AUTO) 3.3 10^3/uL (0.5-4.7); ABSOLUTE MONOCYTES (AUTO) 0.5 10^3/uL (0.1-1.4); ABSOLUTE NEUT (AUTO) 8.9 10^3/uL (1.7-8.2); BASOPHILS % (AUTO) 0.4 % (0-2); EOSINOPHILS % (AUTO) 1.9 % (0-6); HEMATOCRIT 35.2 % (36.0-47.0); HEMOGLOBIN 11.1 g/dL (12.0-15.5); LYMPHOCYTES % (AUTO) 25.3 % (13-45); MEAN CORPUSCULAR HEMOGLOBIN 27.3 pg (27.0-33.4); MEAN CORPUSCULAR HGB CONC 31.5 g/dL (32.0-36.0); MEAN CORPUSCULAR VOLUME 87 fl (80-97); PLATELET COUNT 426 10^3/uL (150-450); RED BLOOD COUNT 4.07 10^6/uL (3.72-5.28); RED CELL DISTRIBUTION WIDTH 18.7 % (11.5-14.0); SEGMENTED NEUTROPHILS % (AUTO) 68.4 % (42-78); TOTAL CELLS COUNTED % (AUTO) 100 %
[2017-06-15 05:12] LABS: ALANINE AMINOTRANSFERASE 33 U/L (9-52); ALBUMIN 3.6 g/dL (3.5-5.0); ALKALINE PHOSPHATASE 115 U/L (38-126); ANION GAP 11 (5-19); ASPARTATE AMINO TRANSFERASE 16 U/L (14-36); BILIRUBIN,DIRECT 0.4 mg/dL (0.0-0.4); BLOOD UREA NITROGEN 10 mg/dL (7-20); CALCIUM 9.4 mg/dL (8.4-10.2); CARBON DIOXIDE 28 mmol/L (22-30); CHLORIDE 102 mmol/L (98-107); GLUCOSE 165 mg/dL (75-110); LIPASE 81.5 U/L (23-300); POTASSIUM 4.6 mmol/L (3.6-5.0); SODIUM 141.4 mmol/L (137-145); TOTAL PROTEIN 6.8 g/dL (6.3-8.2)
[2017-06-15 05:35] LABS: APPEARANCE,URINE SLIGHTLY-CLOUDY; BILIRUBIN,URINE NEGATIVE (NEGATIVE); COLOR,URINE AMBER; GLUCOSE, URINE NEGATIVE (NEGATIVE); KETONES,URINE NEGATIVE (NEGATIVE); LEUKOCYTE ESTERASE,URINE TRACE (NEGATIVE); NITRITE,URINE POSITIVE (NEGATIVE); PROTEIN,URINE NEGATIVE (NEGATIVE); URINE SPECIFIC GRAVITY 1.017
[2017-06-15] MEDS ORDERED: ONDANSETRON ODT 4 MG TAB (6 TAB/ER DISP) PO PRN (05:49)
[2017-06-15 06:13] VITALS: BP 110/77
== END 2017-06-15 06:20 | disposition home or self-care (01) ==
LOC: ER 03:06
DX: R10.84 Generalized abdominal pain (principal); R11.2 Nausea with vomiting, unspecified; R19.7 Diarrhea, unspecified; E66.01 Morbid (severe) obesity due to excess calories; I10 Essential (primary) hypertension; Z88.0 Allergy status to penicillin
CPT/HCPCS: 99284; 96361; 96374; 96375; 36415; 83690; 84703; 85025; 80053; 81001; J1885; J2270; J2405; J7030

== ENCOUNTER 2017-06-29 08:16 | Emergency (ER) | payer SELFPAY ==
[2017-06-29] MEDS ORDERED: LORAZEPAM INJ 2 MG/1 ML VIAL IV ONE (09:03)
[2017-06-29] MEDS ORDERED: ONDANSETRON HCL INJ/PF 4 MG/2 ML SDV IV ONE (09:03)
[2017-06-29] MEDS ORDERED: NORMAL SALINE 1000 ML 1,000 ML IV ONE (09:03)
[2017-06-29 09:58] LABS: APPEARANCE,URINE CLEAR; BILIRUBIN,URINE NEGATIVE (NEGATIVE); COLOR,URINE YELLOW; GLUCOSE, URINE NEGATIVE (NEGATIVE); KETONES,URINE NEGATIVE (NEGATIVE); LEUKOCYTE ESTERASE,URINE NEGATIVE (NEGATIVE); NITRITE,URINE NEGATIVE (NEGATIVE); PROTEIN,URINE NEGATIVE (NEGATIVE); URINE SPECIFIC GRAVITY 1.029
[2017-06-29 10:09] LABS: ABSOLUTE EOSINOPHILS # (AUTO) 0.2 10^3/uL (0.0-0.6); ABSOLUTE LYMPHOCYTES (AUTO) 2.5 10^3/uL (0.5-4.7); ABSOLUTE MONOCYTES (AUTO) 0.3 10^3/uL (0.1-1.4); ABSOLUTE NEUT (AUTO) 5.8 10^3/uL (1.7-8.2); BASOPHILS % (AUTO) 0.5 % (0-2); EOSINOPHILS % (AUTO) 1.8 % (0-6); HEMATOCRIT 35.3 % (36.0-47.0); LYMPHOCYTES % (AUTO) 28.6 % (13-45); MEAN CORPUSCULAR HEMOGLOBIN 27.6 pg (27.0-33.4); MEAN CORPUSCULAR HGB CONC 31.1 g/dL (32.0-36.0); MEAN CORPUSCULAR VOLUME 89 fl (80-97); MONOCYTES % (AUTO) 3.8 % (3-13); PLATELET COUNT 431 10^3/uL (150-450); RED BLOOD COUNT 3.98 10^6/uL (3.72-5.28); RED CELL DISTRIBUTION WIDTH 17.9 % (11.5-14.0); SEGMENTED NEUTROPHILS % (AUTO) 65.3 % (42-78); TOTAL CELLS COUNTED % (AUTO) 100 %; WHITE BLOOD COUNT 8.9 10^3/uL (4.0-10.5)
[2017-06-29 10:24] LABS: ALANINE AMINOTRANSFERASE 34 U/L (9-52); ALBUMIN 3.9 g/dL (3.5-5.0); ALKALINE PHOSPHATASE 94 U/L (38-126); ANION GAP 12 (5-19); ASPARTATE AMINO TRANSFERASE 30 U/L (14-36); BILIRUBIN,DIRECT 0.2 mg/dL (0.0-0.4); BILIRUBIN,TOTAL 0.2 mg/dL (0.2-1.3); BLOOD UREA NITROGEN 11 mg/dL (7-20); CALCIUM 9.6 mg/dL (8.4-10.2); CARBON DIOXIDE 29 mmol/L (22-30); CHLORIDE 106 mmol/L (98-107); GLUCOSE 114 mg/dL (75-110); LIPASE 40.9 U/L (23-300); POTASSIUM 4.6 mmol/L (3.6-5.0); SODIUM 146.9 mmol/L (137-145); TOTAL PROTEIN 7.3 g/dL (6.3-8.2)
--- NOTE | 2017-06-29 12:07 | RADIOLOGY REPORT (SQ) ---
EXAM DESCRIPTION: U/S ABDOMEN LIMITED W/O DOP COMPLETED DATE/TIME: 06/29/2017 11:53 am REASON FOR STUDY: ruq pain,n/v/d COMPARISON: April 2016 TECHNIQUE: Dynamic and static grayscale images acquired of the abdomen and recorded on PACS. Terrio haleigh selected color Doppler and spectral images recorded. LIMITATIONS: Study limited somewhat due to overlying bowel gas P FINDINGS: PANCREAS: No masses. Visualized pancreatic duct normal caliber. Pancreatic tail could no t be visualized due to overlying bowel gas LIVER: No masses. Echotexture normal. LIVER VASCULATURE: Normal directional flow of the main portal vein. GALLBLADDER: No stones. Normal wall thickness. No pericholecystic fluid. ULTRASOUND-DETECTED GARCIA'S SIGN: Negative. INTRAHEPATIC DUCTS AND COMMON DUCT: CBD and intrahepatic ducts normal caliber. No filling defects. INFERIOR VENA CAVA: Normal flow. AORTA: No evidence for an abdominal aortic aneurysm is seen. The distal abdominal aorta could not be visualized due to overlying bowel gas P RIGHT KIDNEY: 9.8 cm in length. Normal echogenicity. No solid or suspicious masses. No hydronephrosi s. No calcifications. PERITONEAL AND RIGHT PLEURAL SPACE: No ascites or effusions. OTHER: No other significant findings. IMPRESSION: Somewhat limited study as noted above. No significant intra-abdominal abnormalities wer e identified TECHNICAL DOCUMENTATION: JOB ID: [id number] [employer]- All Rights Reserved Reading location - IP/workstation name: [email or web address]
[2017-06-29] MEDS ORDERED: METOCLOPRAMIDE HCL ORAL SOLN 10 MG/10 ML UDCUP PO ONE (12:13)
[2017-06-29] MEDS ORDERED: MAG HYDROX/AL HYDROX/SIMETH SUSP 30 ML UDCUP PO ONE (12:13)
[2017-06-29] MEDS ORDERED: LIDOCAINE 2% VISCOUS SOLN 20 ML UDCUP PO ONE (12:13)
--- NOTE | 2017-06-29 12:55 | ER Document Report ---
ED GI/ - General Chief Complaint: Nausea/Vomiting/Diarrhea Stated Complaint: ABDOMINAL PAIN Time Seen by Provider: 06/29/17 08:48 Mode of Arrival: Ambulatory Information source: Patient Notes: Patient is a 32-year-old female who presents to the ER today for upper abdominal pain, nausea, vomiting, diarrhea 1 week. Patient states she also has a lot of anxiety and the nausea, diarrhea and vomiting have given her more anxiety. She denies any history of gallbladder issues, does still have her gallbladder. She denies any fevers or chills. She has been taking Imodium for the diarrhea. TRAVEL OUTSIDE OF THE [place] IN LAST 30 DAYS: No - Related Data Allergies/Adverse Reactions: amoxicillin [Amoxicillin] Allergy (Verified 06/03/17 13:54) benzonatate [From Tessalon Perles] Allergy (Verified 06/03/17 13:54) iloperidone [From Fanapt] Allergy (Verified 06/03/17 13:54) Penicillins Allergy (Verified 06/03/17 13:54) Past Medical History - General Information source: Patient - Social History Smoking Status: Never Smoker Chew tobacco use (# tins/day): No Frequency of alcohol use: None Drug Abuse: None Family History: DM, Other - Brother with blood clots, mother with hysterectomy Patient has suicidal ideation: No Patient has homicidal ideation: No - Past Medical History Cardiac Medical History: Reports: Hx Hypertension Denies: Hx Heart Attack Pulmonary Medical History: Reports: Hx Asthma, Hx Sleep Apnea Denies: Hx Bronchitis, Hx COPD, Hx Pneumonia Neurological Medical History: Denies: Hx Seizures Endocrine Medical History: Reports: Hx Diabetes Mellitus Type 2 - newly dx. Denies: Hx Diabetes Mellitus Type 1 Renal/ Medical History: Reports: Hx Ovarian Cysts. Denies: Hx Peritoneal Dialysis GI Medical History: Reports: Hx Gastroesophageal Reflux Disease Musculoskeltal Medical History: Denies Hx Arthritis Psychiatric Medical History: Reports: Hx Anxiety, Hx Attention Deficit Hyperactivity Disorder, Hx Depression Past Surgical History: Reports: Hx Adenoidectomy, Hx Gynecologic Surgery - R ovarian cyst 2010 Uterine fibroid removal 2010 in [place]., Hx Tonsillectomy - Immunizations Hx Diphtheria, Pertussis, Tetanus Vaccination: Yes - 06/2011 Review of Systems - Review of Systems Constitutional: No symptoms reported EENT: No symptoms reported Cardiovascular: No symptoms reported Respiratory: No symptoms reported Gastrointestinal: See HPI Genitourinary: No symptoms reported Female Genitourinary: No symptoms reported Musculoskeletal: No symptoms reported Skin: No symptoms reported Hematologic/Lymphatic: No symptoms reported Neurological/Psychological: No symptoms reported Physical Exam - Vital signs Vitals: Temp Pulse Resp BP Pulse Ox 97.8 F 79 18 141/94 H 97 06/29/17 08:35 06/29/17 08:35 06/29/17 08:35 06/29/17 08:35 06/29/17 08:35 - Notes Notes: PHYSICAL EXAMINATION: GENERAL: Anxious, but in no acute distress. HEAD: Atraumatic, normocephalic. EYES: Pupils equal round and reactive to light, extraocular movements intact, sclera anicteric, conjunctiva are normal. NECK: Normal range of motion, supple without lymphadenopathy LUNGS: CTAB and equal. No wheezes rales or rhonchi. HEART: Regular rate and rhythm without murmurs ABDOMEN: Soft, epigastric, right upper quadrant tenderness. No guarding, no rebound BACK: no vertebral tenderness, normal ROM GI/: no CVA tenderness EXTREMITIES: Normal range of motion, no pitting edema. No cyanosis. NEUROLOGICAL: Cranial nerves grossly intact. Normal sensory/motor exams. PSYCH: Normal mood, normal affect. SKIN: Warm, Dry, normal turgor, no rashes or lesions noted Course - Re-evaluation Re-evalutation: 06/29/17 12:53 Lab work is unremarkable today, right upper quadrant ultrasound negative for any acute pathology to the gallbladder. Patient feels better after GI cocktail. I will send her home with Domonique and Finesse to follow-up with a GI doctor that I will also give her the information for. - Vital Signs Vital signs: Temp Pulse Resp BP Pulse Ox 97.8 F 79 18 141/94 H 97 06/29/17 08:35 06/29/17 08:35 06/29/17 08:35 06/29/17 08:35 06/29/17 08:35 - Laboratory Result Diagrams: 06/29/17 09:55 06/29/17 09:55 Laboratory results interpreted by me: 06/29/17 06/29/17 06/29/17 09:30 09:55 09:55 Hgb 11.0 L Hct 35.3 L MCHC 31.1 L RDW 17.9 H Sodium 146.9 H Glucose 114 H Urine Urobilinogen 2.0 H Discharge - Discharge Clinical Impression: Epigastric pain, Nausea vomiting and diarrhea Condition: Stable Disposition: HOME, SELF-CARE Instructions: Vomiting ([facility]), Gastritis ([facility]) Additional Instructions: Return immediately for any new or worsening symptoms. Follow up with primary care provider, call tomorrow to make followup appointment. Prescriptions: Omeprazole Magnesium [Prilosec Otc] 20 mg PO BID #40 tablet. Sucralfate [Carafate 1 gm Tablet] 1 gm PO ACHS #40 tablet Referrals: ERIC MYERS MD [Primary Care Provider] - Follow up as needed ESTRADA BRIGGS MD [ACTIVE STAFF] - Follow up as needed
[2017-06-29 13:07] VITALS: BP 144/88
== END 2017-06-29 13:07 | disposition home or self-care (01) ==
LOC: ER 08:16
DX: R10.13 Epigastric pain (principal); R11.2 Nausea with vomiting, unspecified; R19.7 Diarrhea, unspecified; I10 Essential (primary) hypertension; E11.9 Type 2 diabetes mellitus without complications; Z88.0 Allergy status to penicillin
CPT/HCPCS: 99284; 96361; 96374; 96375; 36415; 83690; 85025; 81025; 80053; 81001; 76705; J3490; J2060; J2405; J7030

== ENCOUNTER 2017-07-13 19:00 | Emergency (ER) | payer SELFPAY ==
[2017-07-13 20:26] LABS: ABSOLUTE BASOPHILS # (AUTO) 0.1 10^3/uL (0.0-0.2); ABSOLUTE EOSINOPHILS # (AUTO) 0.2 10^3/uL (0.0-0.6); ABSOLUTE MONOCYTES (AUTO) 0.4 10^3/uL (0.1-1.4); BASOPHILS % (AUTO) 0.8 % (0-2); EOSINOPHILS % (AUTO) 1.7 % (0-6); HEMATOCRIT 35.4 % (36.0-47.0); HEMOGLOBIN 11.4 g/dL (12.0-15.5); MEAN CORPUSCULAR HEMOGLOBIN 28.2 pg (27.0-33.4); MEAN CORPUSCULAR HGB CONC 32.2 g/dL (32.0-36.0); MEAN CORPUSCULAR VOLUME 88 fl (80-97); MONOCYTES % (AUTO) 4.1 % (3-13); PLATELET COUNT 441 10^3/uL (150-450); RED BLOOD COUNT 4.04 10^6/uL (3.72-5.28); RED CELL DISTRIBUTION WIDTH 16.7 % (11.5-14.0); SEGMENTED NEUTROPHILS % (AUTO) 65.4 % (42-78); TOTAL CELLS COUNTED % (AUTO) 100 %; WHITE BLOOD COUNT 10.7 10^3/uL (4.0-10.5)
[2017-07-13 20:34] LABS: ALANINE AMINOTRANSFERASE 30 U/L (9-52); ALBUMIN 3.7 g/dL (3.5-5.0); ALKALINE PHOSPHATASE 89 U/L (38-126); ANION GAP 13 (5-19); ASPARTATE AMINO TRANSFERASE 19 U/L (14-36); BILIRUBIN,DIRECT 0.2 mg/dL (0.0-0.4); BILIRUBIN,TOTAL 0.2 mg/dL (0.2-1.3); BLOOD UREA NITROGEN 8 mg/dL (7-20); CALCIUM 9.5 mg/dL (8.4-10.2); CARBON DIOXIDE 28 mmol/L (22-30); CHLORIDE 102 mmol/L (98-107); GLUCOSE 134 mg/dL (75-110); LIPASE 54.3 U/L (23-300); POTASSIUM 4.5 mmol/L (3.6-5.0); SODIUM 142.8 mmol/L (137-145)
--- NOTE | 2017-07-13 20:35 | ER Document Report ---
ED General - General Chief Complaint: Chest Pain Stated Complaint: CHEST PAIN Time Seen by Provider: 07/13/17 20:18 TRAVEL OUTSIDE OF THE [place] IN LAST 30 DAYS: No - HPI Notes: Patient is a 32-year-old female with a history of type 2 diabetes, anxiety, depression, IBS who presents to the ED with multiple complaints. Patient is complaining of chest pain that started over the last 1-2 days that is described as a sharp pain and does not radiate. Patient is not aware of anything that worsens her pain or makes it better. Patient has also had occasional nausea and vomiting with diarrhea over the last month. Patient was evaluated for similar symptoms a few weeks ago had an unremarkable workup at that time. She has yet to follow-up with a business area manager. She does have occasional abd cramping associated with her symptoms. She has not noticed any melena or hematochezia. She still able to eat and drink without difficulties, but does have a decreased p.o. intake. Patient's last complaint is voiding small amounts of urine, and some irritation. She denies any smoking or IV drug use. Denies any prolonged immobilization, recent surgery/trauma, hormone use, previous DVT/PE. No other significant cardiopulmonary medical history. Denies any headache, fever, neck pain, URI, sore throat, palpitations, syncope, cough, shortness of breath, wheeze, dyspnea, back pain, loss of control of bowel or bladder, numbness/tingling, saddle anesthesia, muscle paralysis/weakness, or rash. - Related Data Allergies/Adverse Reactions: amoxicillin [Amoxicillin] Allergy (Verified 06/03/17 13:54) benzonatate [From Tessalon Perles] Allergy (Verified 06/03/17 13:54) iloperidone [From Fanapt] Allergy (Verified 06/03/17 13:54) Penicillins Allergy (Verified 06/03/17 13:54) Past Medical History - Social History Smoking Status: Never Smoker Chew tobacco use (# tins/day): No Frequency of alcohol use: Rare Drug Abuse: None Family History: DM, Other - Brother with blood clots, mother with hysterectomy Patient has suicidal ideation: No Patient has homicidal ideation: No - Past Medical History Cardiac Medical History: Reports: Hx Hypertension Denies: Hx Heart Attack Pulmonary Medical History: Reports: Hx Asthma, Hx Sleep Apnea Denies: Hx Bronchitis, Hx COPD, Hx Pneumonia Neurological Medical History: Denies: Hx Seizures Endocrine Medical History: Reports: Hx Diabetes Mellitus Type 2 - newly dx. Denies: Hx Diabetes Mellitus Type 1 Renal/ Medical History: Reports: Hx Ovarian Cysts. Denies: Hx Peritoneal Dialysis GI Medical History: Reports: Hx Gastroesophageal Reflux Disease Musculoskeltal Medical History: Denies Hx Arthritis Psychiatric Medical History: Reports: Hx Anxiety, Hx Attention Deficit Hyperactivity Disorder, Hx Depression Past Surgical History: Reports: Hx Adenoidectomy, Hx Gynecologic Surgery - R ovarian cyst 2010 Uterine fibroid removal 2010 in [place]., Hx Tonsillectomy - Immunizations Hx Diphtheria, Pertussis, Tetanus Vaccination: Yes - 06/2011 Review of Systems - Review of Systems -: Yes All other systems reviewed and negative Physical Exam - Vital signs Vitals: Temp Pulse Resp BP Pulse Ox 99.4 F 103 H 20 129/92 H 98 07/13/17 19:24 07/13/17 19:24 07/13/17 19:24 07/13/17 19:24 07/13/17 19:24 - Notes Notes: PHYSICAL EXAMINATION: GENERAL: Well-appearing, well-nourished and in no acute distress. HEAD: Atraumatic, normocephalic. EYES: Pupils equal round and reactive to light, extraocular movements intact, sclera anicteric, conjunctiva are normal. ENT: Nares patent and without discharge. oropharynx clear without exudates. No tonsilar hypertrophy or erythema. Moist mucous membranes. NECK: Normal range of motion, supple without lymphadenopathy Chest: non-tender to palp. no flail chest. LUNGS: Breath sounds clear to auscultation bilaterally and equal. No wheezes rales or rhonchi. HEART: Regular rate and rhythm without murmurs, rubs, gallops. ABDOMEN: Soft, nontender, nondistended abdomen. No guarding, no rebound. No masses appreciated. Normal bowel sounds present. No CVA tenderness bilaterally. Musculoskeletal: FROM to passive/active. Strength 5+/5. Aubree neg b/l. Extremities: No cyanosis, clubbing, or edema b/l. Peripheral pulses 2+. Capillary refill less than 3 seconds. NEUROLOGICAL: Cranial nerves grossly intact. Normal speech, normal gait. Normal sensory, motor exams PSYCH: Normal mood, normal affect. SKIN: Warm, Dry, normal turgor, no rashes or lesions noted. Course - Re-evaluation Re-evalutation: 07/13/17 23:52 Patient is an afebrile, well-hydrated, 32-year-old female who presents to the ED with chest pain unspecified, dysuria, and diarrhea unspecified. Vitals are acceptable. PE is otherwise unremarkable. Patient is nontoxic-appearing. She has no significant tachycardia, tachypnea, or hypoxia. She is tolerating p.o. without difficulties. CBC, CMP, cardiac enzymes 2/EKG, urinalysis, HCG, chest x-ray were unremarkable for any acute pathology. D-dimer was also negative. Patient has a heart score of 2. No other labs or imaging warranted at this time based on H&P. Patient's abdomen is soft and nontender. Low suspicion for any ACS, PE, pneumothorax, pericarditis, dissection, respiratory compromise, severe dehydration, sepsis, meningitis, or other systemic emergent condition at this time. Patient is aware that her condition can change from initial presentation and she needs to monitor symptoms closely and seek medical attention for any acute changes. Patient was given Toradol IM as well as Zofran. Recommend conservative measures for symptoms. Recheck with your PCM in 3-5 days. Consider consult with GI. Return to the ED with any worsening/ concerning symptoms otherwise as reviewed in discharge. Patient is in agreement. - Vital Signs Vital signs: Temp Pulse Resp BP Pulse Ox 99.4 F 103 H 28 H 126/84 H 99 07/13/17 19:24 07/13/17 19:24 07/13/17 21:01 07/13/17 21:01 07/13/17 21:01 - Laboratory Result Diagrams: 07/13/17 20:05 07/13/17 20:05 Laboratory results interpreted by me: 07/13/17 07/13/17 20:05 20:05 WBC 10.7 H Hgb 11.4 L Hct 35.4 L RDW 16.7 H Glucose 134 H Discharge - Discharge Clinical Impression: Dysuria Chest pain, unspecified Qualifiers: Chest pain type: unspecified Qualified Code(s): R07.9 - Chest pain, unspecified Diarrhea, unspecified Qualifiers: Diarrhea type: unspecified type Qualified Code(s): R19.7 - Diarrhea, unspecified Condition: Stable Disposition: HOME, SELF-CARE Instructions: Chest Pain of Unclear Cause ([facility]), Diarrhea, Nonspecific ([facility]) Additional Instructions: Maintain adequate fluid and food intake Cannon diet ([employer] Bananas, rice, apples, toast, etc Zofran as needed tylenol if needed Monitor for any worsening symptoms Make sure you are staying hydrated enough to urinate and have normal BM's Recheck with your PCM in 2-3 days Consider consult with Gastroenterology for ongoing/worsening symptoms Return to the ED with any worsening symptoms and/or development of fever, headache, chest pain, palpitations, syncope, shortness of breath, trouble breathing, abdominal pain, n/v/d, blood in stool/urine, weakness, or other worsening symptoms that are concerning to you. Prescriptions: Loperamide HCl [Imodium 2 mg Capsule] 2 mg PO PRN PRN #21 cap PRN Reason: Ondansetron [Zofran Odt 4 mg Tablet] 1 - 2 tab PO Q4H PRN #15 tab.rapdis PRN Reason: For Nausea/Vomiting Forms: Elevated Blood Pressure Referrals: ESTRADA BRIGGS MD [ACTIVE STAFF] - Follow up as needed JACQUE MEDINA MD [ACTIVE STAFF] - Follow up as needed
[2017-07-13] MEDS ORDERED: KETOROLAC TROMETHAMINE INJ/PF 30 MG/1 ML SDV IV ONE (20:37)
[2017-07-13] MEDS ORDERED: ONDANSETRON HCL INJ/PF 4 MG/2 ML SDV IV ONE (20:37)
[2017-07-13] MEDS: NORMAL SALINE 1000 ML 1,000 ML IV PRN ×2 (20:48→21:41)
--- NOTE | 2017-07-13 20:48 | RADIOLOGY REPORT (SQ) ---
EXAM DESCRIPTION: CHEST SINGLE VIEW COMPLETED DATE/TIME: 07/13/2017 8:39 pm REASON FOR STUDY: chest pain COMPARISON: 06/12/2017 EXAM PARAMETERS: NUMBER OF VIEWS: One view. TECHNIQUE: Single frontal radiographic view of the chest acquired. RADIATION DOSE: NA LIMITATIONS: None. FINDINGS: LUNGS AND PLEURA: No opacities, masses or pneumothorax. No pleural effusion. MEDIASTINUM AND HILAR STRUCTURES: No masses. Contour normal. HEART AND VASCULAR STRUCTURES: Heart normal in size. Normal vasculature. BONES: No acute findings. HARDWARE: None in the chest. OTHER: No other significant finding. IMPRESSION: NO ACUTE RADIOGRAPHIC FINDING IN THE CHEST. TECHNICAL DOCUMENTATION: JOB ID: [id number] [employer]- All Rights Reserved Reading location - IP/workstation name: [email or web address]
[2017-07-13 21:33] LABS: APPEARANCE,URINE TURBID; BILIRUBIN,URINE NEGATIVE (NEGATIVE); COLOR,URINE YELLOW; GLUCOSE, URINE NEGATIVE (NEGATIVE); KETONES,URINE NEGATIVE (NEGATIVE); LEUKOCYTE ESTERASE,URINE NEGATIVE (NEGATIVE); NITRITE,URINE NEGATIVE (NEGATIVE); PROTEIN,URINE NEGATIVE (NEGATIVE); URINE SPECIFIC GRAVITY 1.023; UROBILINOGEN,URINE NEGATIVE mg/dL (<2.0)
[2017-07-14 00:21] VITALS: BP 120/71
--- NOTE | 2017-07-14 08:20 | EKG REPORT ---
SEVERITY:- OTHERWISE NORMAL ECG - SINUS TACHYCARDIA : Confirmed by: Luzmaria Lindsey 14-Jul-2017 05:19:52
== END 2017-07-14 00:22 | disposition home or self-care (01) ==
LOC: ER 19:00
DX: R07.9 Chest pain, unspecified (principal); R19.7 Diarrhea, unspecified; R30.0 Dysuria; E11.9 Type 2 diabetes mellitus without complications; R11.2 Nausea with vomiting, unspecified; R10.9 Unspecified abdominal pain; R39.89 Other symptoms and signs involving the genitourinary system; I10 Essential (primary) hypertension; J45.909 Unspecified asthma, uncomplicated; Z87.19 Personal history of other diseases of the digestive system; Z88.0 Allergy status to penicillin; Z88.8 Allergy status to other drugs, medicaments and biological substances
CPT/HCPCS: 93005; 99285; 96361; 96374; 96375; 36415; 87086; 83690; 85025; 81025; 80053; 81001; 84484; 85379; 71045; 93010; J1885; J2405; J7030

== ENCOUNTER 2017-08-06 19:44 | Emergency (ER) | payer SELFPAY ==
--- NOTE | 2017-08-06 20:12 | ER Document Report ---
ED Medical Screen (RME) - General Chief Complaint: Low Back Pain Stated Complaint: LOWER BACK PAIN Time Seen by Provider: 08/06/17 20:03 Notes: Patient is a 32-year-old female who had a epidural and corticosteroid injections on July 25 with associated headache that got worse on Monday. She states it improves with supine position has been taking Percocet 10 mg and Excedrin has not made any improvement at all. States it is worse with sitting upright. She denies any vision changes. TRAVEL OUTSIDE OF THE [place] IN LAST 30 DAYS: No - Related Data Allergies/Adverse Reactions: amoxicillin [Amoxicillin] Allergy (Verified 06/03/17 13:54) benzonatate [From Tessalon Perles] Allergy (Verified 06/03/17 13:54) iloperidone [From Fanapt] Allergy (Verified 06/03/17 13:54) Penicillins Allergy (Verified 06/03/17 13:54) Past Medical History - Social History Family history: None - Past Medical History Cardiac Medical History: Reports: Hx Hypertension Denies: Hx Heart Attack Pulmonary Medical History: Reports: Hx Asthma, Hx Sleep Apnea Denies: Hx Bronchitis, Hx COPD, Hx Pneumonia Neurological Medical History: Denies: Hx Seizures Endocrine Medical History: Reports: Hx Diabetes Mellitus Type 2 - newly dx. Denies: Hx Diabetes Mellitus Type 1 Renal/ Medical History: Reports: Hx Ovarian Cysts. Denies: Hx Peritoneal Dialysis GI Medical History: Reports: Hx Gastroesophageal Reflux Disease Musculoskeltal Medical History: Denies Hx Arthritis Psychiatric Medical History: Reports: Hx Anxiety, Hx Attention Deficit Hyperactivity Disorder, Hx Depression Past Surgical History: Reports: Hx Adenoidectomy, Hx Gynecologic Surgery - R ovarian cyst 2010 Uterine fibroid removal 2010 in [place]., Hx Tonsillectomy - Immunizations Hx Diphtheria, Pertussis, Tetanus Vaccination: Yes - 06/2011 Doctor's Discharge - Discharge Referrals: ERIC MYERS MD [Primary Care Provider] - Follow up as needed
[2017-08-06] MEDS ORDERED: METOCLOPRAMIDE HCL 10 MG TABLET PO ONE (21:07)
[2017-08-06] MEDS ORDERED: BUTALB/ACETAMINOPHEN/CAFFEINE 1 TAB EACH PO ONE (21:07)
--- NOTE | 2017-08-06 22:14 | ER Document Report ---
ED General - General Chief Complaint: Low Back Pain Stated Complaint: LOWER BACK PAIN Time Seen by Provider: 08/06/17 20:03 Notes: Patient is a 32-year-old female with history of morbid obesity, diabetes, chronic back pain who presents with 3 days of a progressively worsening bitemporal, throbbing, aching headache as well as her chronic low back pain. The patient reports that she received a spinal injection approximately 1 week ago. She states afterwards she began to develop this headache and for a period of time it did resolve for 3 days ago the headache recurred. She states the headache is worsened by standing up or sitting up. Somewhat improved by lying flat. She has a history of similar headaches in the past when she has had spinal injections. She has not yet followed up with the doctor spinal injection. She denies any focal weakness, numbness, vomiting, effusion or fever. No changes in vision. She states that in the past she has received a migraine cocktail and she came to the emergency department with resolution of the similar headache. TRAVEL OUTSIDE OF THE [place] IN LAST 30 DAYS: No - Related Data Allergies/Adverse Reactions: amoxicillin [Amoxicillin] Allergy (Verified 06/03/17 13:54) benzonatate [From Tessalon Perles] Allergy (Verified 06/03/17 13:54) iloperidone [From Fanapt] Allergy (Verified 06/03/17 13:54) Penicillins Allergy (Verified 06/03/17 13:54) Past Medical History - General Information source: Patient - Social History Smoking Status: Never Smoker Chew tobacco use (# tins/day): No Frequency of alcohol use: Occasional Drug Abuse: None Lives with: Alone Family History: DM, Other - Brother with blood clots, mother with hysterectomy Patient has suicidal ideation: No Patient has homicidal ideation: No - Past Medical History Cardiac Medical History: Reports: Hx Hypertension Denies: Hx Heart Attack Pulmonary Medical History: Reports: Hx Asthma, Hx Sleep Apnea Denies: Hx Bronchitis, Hx COPD, Hx Pneumonia Neurological Medical History: Denies: Hx Seizures Endocrine Medical History: Reports: Hx Diabetes Mellitus Type 2 - newly dx. Denies: Hx Diabetes Mellitus Type 1 Renal/ Medical History: Reports: Hx Ovarian Cysts. Denies: Hx Peritoneal Dialysis GI Medical History: Reports: Hx Gastroesophageal Reflux Disease Musculoskeltal Medical History: Denies Hx Arthritis Psychiatric Medical History: Reports: Hx Anxiety, Hx Attention Deficit Hyperactivity Disorder, Hx Depression Past Surgical History: Reports: Hx Adenoidectomy, Hx Gynecologic Surgery - R ovarian cyst 2010 Uterine fibroid removal 2010 in [place]., Hx Tonsillectomy - Immunizations Hx Diphtheria, Pertussis, Tetanus Vaccination: Yes - 06/2011 Review of Systems - Review of Systems Notes: Constitutional: Negative for fever. HENT: Negative for sore throat. Eyes: Negative for visual changes. Cardiovascular: Negative for chest pain. Respiratory: Negative for shortness of breath. Gastrointestinal: Negative for abdominal pain, vomiting or diarrhea. Genitourinary: Negative for dysuria. Musculoskeletal: Positive for chronic low back pain Skin: Negative for rash. Neurological: Positive for headache 10 point ROS negative except as marked above and in HPI. Physical Exam - Vital signs Vitals: Temp Pulse Resp BP Pulse Ox 99.8 F 107 H 19 128/53 H 98 08/06/17 20:19 08/06/17 20:19 08/06/17 20:19 08/06/17 20:19 08/06/17 20:19 Interpretation: Tachycardic Notes: PHYSICAL EXAMINATION: GENERAL: Appears to be moderately uncomfortable but in no acute distress HEAD: Atraumatic, normocephalic. EYES: Pupils equal round and reactive to light, extraocular movements intact, sclera anicteric, conjunctiva are normal. ENT: nares patent, oropharynx clear without exudates. Moist mucous membranes. NECK: Normal range of motion, supple without lymphadenopathy LUNGS: Breath sounds clear to auscultation bilaterally and equal. No wheezes rales or rhonchi. HEART: Regular rate and rhythm without murmurs ABDOMEN: Soft, obese abdomen, nontender, normoactive bowel sounds. No guarding , no rebound. No masses appreciated. EXTREMITIES: Normal range of motion, no pitting or edema. No cyanosis. Back: No midline spinal tenderness, step-offs or deformities NEUROLOGICAL: Face symmetric. Tongue protrudes midline. Extraocular motions intact. Pupils are 2 mm and equally reactive. Normal speech, normal gait. 5 out of 5 strength in both the distal and proximal upper and lower extremities bilaterally. Sensation is grossly intact throughout. Finger to nose testing normal. Pronator drift normal. PSYCH: Normal mood, normal affect. SKIN: Warm, Dry, normal turgor, no rashes or lesions noted. Course - Re-evaluation Re-evalutation: 08/06/17 22:09 Presentation of a morbidly obese female in no acute distress with signs and symptoms consistent with a post lumbar puncture headache. She has no focal neurologic deficits on examination but no nausea, vomiting, fever, or altered mental status. Headache was not maximal in onset, patient has no focal neurologic deficits, no nuchal rigidity, vital signs within normal limits, no papilledema, and patient is overall well in appearance. Based on clinical history and examination I do not suspect an acute subarachnoid hemorrhage, dural venous sinus thrombosis, acute meningitis, or intercranial mass. This did occur after she had a spinal injection for chronic low back pain. Her low back exam is otherwise unremarkable. No red flag symptoms. No indication for labs or imaging at this time point. At this time will discharge with return precautions and follow-up recommendations. Verbal discharge instructions given a the bedside and opportunity for questions given. Medication warnings reviewed. Patient is in agreement with this plan and has verbalized understanding of return precautions and the need for primary care follow-up in the next 24-72 hours. 08/06/17 22:28 - Vital Signs Vital signs: Temp Pulse Resp BP Pulse Ox 99.0 F 92 16 128/94 H 99 08/06/17 23:38 08/06/17 23:38 08/06/17 23:38 08/06/17 23:38 08/06/17 23:38 Discharge - Discharge Clinical Impression: Morbid obesity, Post lumbar puncture headache Chronic low back pain Qualifiers: Back pain laterality: midline Sciatica presence: without sciatica Qualified Code(s): M54.5 - Low back pain Condition: Stable Disposition: HOME, SELF-CARE Additional Instructions: You have been seen in the Emergency Department (ED) for a headache. Please use Tylenol (acetaminophen) or Motrin (ibuprofen) as needed for symptoms, but only as written on the box. Your headache is likely due to the recent injection you had in your back and should improve in the next several days. You may also use high-dose caffeine such as caffeine pills that you can purchase over-the- counter or black coffee to help reduce her headache. As we have discussed, please follow up with your primary care doctor as soon as possible regarding today's ED visit and your headache symptoms. Call your doctor or return to the ED if you have a worsening headache, sudden and severe headache, confusion, slurred speech, facial droop, weakness or numbness in any arm or leg, extreme fatigue, or other symptoms that concern you. Referrals: ERIC MYERS MD [Primary Care Provider] - Follow up as needed
[2017-08-06] MEDS ORDERED: KETOROLAC TROMETHAMINE INJ/PF 30 MG/1 ML SDV IV ONE (22:23)
[2017-08-06] MEDS ORDERED: PROCHLORPERAZINE EDISYLATE INJ 10 MG/2 ML VIAL IV ONE (22:23)
[2017-08-06] MEDS ORDERED: DIPHENHYDRAMINE HCL 50 MG/ML VIAL IV ONE (22:24)
[2017-08-06 23:47] VITALS: BP 128/94
== END 2017-08-06 23:47 | disposition home or self-care (01) ==
LOC: ER 19:44
DX: G97.1 Other reaction to spinal and lumbar puncture (principal); Y84.4 Aspiration of fluid as the cause of abnormal reaction of the patient, or of later complication, without mention of misadventure at the time of the procedure; G89.29 Other chronic pain; M54.5 Low back pain; E66.01 Morbid (severe) obesity due to excess calories; Z68.44 Body mass index [BMI] 60.0-69.9, adult; E11.9 Type 2 diabetes mellitus without complications; I10 Essential (primary) hypertension; J45.909 Unspecified asthma, uncomplicated; Z88.0 Allergy status to penicillin; Z88.8 Allergy status to other drugs, medicaments and biological substances
CPT/HCPCS: 99284; 96374; 96375; J3490; J1200; J1885; J0780

== ENCOUNTER 2017-09-05 15:11 | Emergency (ER) | payer SELFPAY ==
[2017-09-05] MEDS ORDERED: PREDNISONE 20 MG TABLET PO ONE (15:54)
[2017-09-05] MEDS ORDERED: IPRATROPIUM/ALBUTEROL 0.5-2.5 MG/3 ML AMPUL NEB ONE ×2 (15:55→17:51)
--- NOTE | 2017-09-05 16:07 | ER Document Report ---
ED Respiratory Problem - General Chief Complaint: Cough Stated Complaint: CHEST PAIN Time Seen by Provider: 09/05/17 15:49 Notes: The patient is a 32-year-old female, past medical history asthma, hypertension, diabetes, presents with TRAVEL OUTSIDE OF THE [place] IN LAST 30 DAYS: No - Related Data Allergies/Adverse Reactions: amoxicillin [Amoxicillin] Allergy (Verified 09/05/17 15:13) benzonatate [From Tessalon Perles] Allergy (Verified 09/05/17 15:13) iloperidone [From Fanapt] Allergy (Verified 09/05/17 15:13) Penicillins Allergy (Verified 09/05/17 15:13) Past Medical History - Social History Smoking Status: Former Smoker Chew tobacco use (# tins/day): No Frequency of alcohol use: None Drug Abuse: None Family History: DM, Other - Brother with blood clots, mother with hysterectomy Patient has suicidal ideation: No Patient has homicidal ideation: No - Past Medical History Cardiac Medical History: Reports: Hx Hypertension Denies: Hx Heart Attack Pulmonary Medical History: Reports: Hx Asthma, Hx Sleep Apnea Denies: Hx Bronchitis, Hx COPD, Hx Pneumonia Neurological Medical History: Denies: Hx Seizures Endocrine Medical History: Reports: Hx Diabetes Mellitus Type 2 - newly dx. Denies: Hx Diabetes Mellitus Type 1 Renal/ Medical History: Reports: Hx Ovarian Cysts. Denies: Hx Peritoneal Dialysis GI Medical History: Reports: Hx Gastroesophageal Reflux Disease Musculoskeltal Medical History: Denies Hx Arthritis Psychiatric Medical History: Reports: Hx Anxiety, Hx Attention Deficit Hyperactivity Disorder, Hx Depression - anxiety Past Surgical History: Reports: Hx Adenoidectomy, Hx Gynecologic Surgery - R ovarian cyst 2010 Uterine fibroid removal 2009 in [place]., Hx Tonsillectomy - Immunizations Hx Diphtheria, Pertussis, Tetanus Vaccination: Yes - 06/2011 Physical Exam - Vital signs Vitals: Temp Pulse Resp BP Pulse Ox 98.6 F 88 20 148/87 H 97 09/05/17 15:19 09/05/17 15:19 09/05/17 15:19 09/05/17 15:19 09/05/17 15:19 Course - Vital Signs Vital signs: Temp Pulse Resp BP Pulse Ox 98.6 F 88 20 148/87 H 97 09/05/17 15:19 09/05/17 15:19 09/05/17 15:19 09/05/17 15:19 09/05/17 15:19 Discharge - Discharge Referrals: ERIC MYERS MD [Primary Care Provider] - Follow up as needed
--- NOTE | 2017-09-05 16:21 | RADIOLOGY REPORT (SQ) ---
EXAM DESCRIPTION: CHEST 2 VIEWS COMPLETED DATE/TIME: 09/05/2017 4:12 pm REASON FOR STUDY: SOB, tightness COMPARISON: 04/18/2017 EXAM PARAMETERS: NUMBER OF VIEWS: two views TECHNIQUE: Digital Frontal and Lateral radiographic views of the chest acquired. RADIATION DOSE: NA LIMITATIONS: none FINDINGS: LUNGS AND PLEURA: No opacities, masses or pneumothorax. No pleural effusion. MEDIASTINUM AND HILAR STRUCTURES: No masses or contour abnormalities. HEART AND VASCULAR STRUCTURES: Heart normal size. No evidence for failure. BONES: No acute findings. HARDWARE: None in the chest. OTHER: No other significant finding. IMPRESSION: NO ACUTE RADIOGRAPHIC FINDING IN THE CHEST. TECHNICAL DOCUMENTATION: JOB ID: [id number] [employer]- All Rights Reserved Reading location - IP/workstation name: [email or web address]
--- NOTE | 2017-09-05 16:23 | ER Document Report ---
ED Respiratory Problem - General Chief Complaint: Cough Stated Complaint: CHEST PAIN Time Seen by Provider: 09/05/17 15:49 Mode of Arrival: Ambulatory Information source: Patient Notes: Chief complaint: Shortness of breath History of complain: 32 years old female with a history of asthma for the last few days having increasing amount of cough and wheezing. Today she took albuterol nebulizers as well as Symbicort, in spite of that the wheezing has not subsided and increasing shortness of breath associated with substernal pain sometimes radiated to the back therefore present to the ED. Denies any fever chills or productive cough. Denies any earache sore throat. Denies any recent travel, denies any pain or discomfort over the calf. Has a history of anxiety hypertension and diabetes. With asthma/sleep apnea Onset: As above Duration: Gradual Severity: Moderate Quality: Not applicable Context: Asthma Exacerbating factor and relieving factors: Any exacerbations REVIEW OF SYSTEMS: CONSTITUTIONAL : Denies fever, chills, or sweats. Denies recent illness. EENT: Denies eye, ear, throat, or mouth pain or symptoms. Denies nasal or sinus congestion or discharge. Denies throat, tongue, or mouth swelling or difficulty swallowing. CARDIOVASCULAR: Denies chest pain. Denies palpitations or racing or irregular heart beat. Denies ankle edema. RESPIRATORY: As per history of complain GASTROINTESTINAL: Denies abdominal pain or distention. Denies nausea, vomiting , or diarrhea. Denies blood in vomitus, stools, or per rectum. Denies black, tarry stools. Denies constipation. GENITOURINARY: Denies difficulty urinating, painful urination, burning, frequency, blood in urine, or discharge. MUSCULOSKELETAL: Denies back or neck pain or stiffness. Denies joint pain or swelling. SKIN: Denies rash, lesions or sores. HEMATOLOGIC : Denies easy bruising or bleeding. LYMPHATIC: Denies swollen, enlarged glands. NEUROLOGICAL: Denies confusion or altered mental status. Denies passing out or loss of consciousness. Denies dizziness or lightheadedness. Denies headache. Denies weakness or paralysis or loss of use of either side. Denies problems with gait or speech. Denies sensory loss, numbness, or tingling. Denies seizures. PSYCHIATRIC: Denies anxiety or stress. Denies depression, suicidal ideation, or homicidal ideation. ALL OTHER SYSTEMS REVIEWED AND NEGATIVE. Dictation was performed using [employer] voice recognition software PHYSICAL EXAMINATION: GENERAL: Well-appearing, well-nourished and in no acute distress. Morbid obesity HEAD: Atraumatic, normocephalic. EYES: Pupils equal round and reactive to light, extraocular movements intact, sclera anicteric, conjunctiva are normal. ENT: Nares patent, oropharynx clear without exudates. Moist mucous membranes. NECK: Normal range of motion, supple without lymphadenopathy LUNGS: Breath sounds bilaterally diminished and distant, could not appreciate any obvious wheezing or rales. No wheezes rales or rhonchi. HEART: Regular rate and rhythm without murmurs ABDOMEN: Soft, nontender, nondistended abdomen. No guarding, no rebound. No masses appreciated. Musculoskeletal: Normal range of motion, no pitting or edema. No cyanosis. NEUROLOGICAL: Cranial nerves grossly intact. Normal speech, normal gait. Normal sensory, motor exams PSYCH: Normal mood, normal affect. SKIN: Warm, Dry, normal turgor, no rashes or lesions noted. TRAVEL OUTSIDE OF THE [place] IN LAST 30 DAYS: No - HPI Notes: Dictated - Related Data Allergies/Adverse Reactions: amoxicillin [Amoxicillin] Allergy (Verified 09/05/17 15:13) benzonatate [From Tessalon Perles] Allergy (Verified 09/05/17 15:13) iloperidone [From Fanapt] Allergy (Verified 09/05/17 15:13) Penicillins Allergy (Verified 09/05/17 15:13) Past Medical History - Social History Smoking Status: Former Smoker Cigarette use (# per day): No Chew tobacco use (# tins/day): No Smoking Education Provided: No Frequency of alcohol use: None Drug Abuse: None Family History: Reviewed & Not Pertinent, DM, Other - Brother with blood clots, mother with hysterectomy Patient has suicidal ideation: No Patient has homicidal ideation: No - Past Medical History Cardiac Medical History: Reports: Hx Hypertension Denies: Hx Heart Attack Pulmonary Medical History: Reports: Hx Asthma, Hx Sleep Apnea Denies: Hx Bronchitis, Hx COPD, Hx Pneumonia Neurological Medical History: Denies: Hx Seizures Endocrine Medical History: Reports: Hx Diabetes Mellitus Type 2 - newly dx. Denies: Hx Diabetes Mellitus Type 1 Renal/ Medical History: Reports: Hx Ovarian Cysts. Denies: Hx Peritoneal Dialysis GI Medical History: Reports: Hx Gastroesophageal Reflux Disease Musculoskeltal Medical History: Denies Hx Arthritis Psychiatric Medical History: Reports: Hx Anxiety, Hx Attention Deficit Hyperactivity Disorder, Hx Depression - anxiety Past Surgical History: Reports: Hx Adenoidectomy, Hx Gynecologic Surgery - R ovarian cyst 2010 Uterine fibroid removal 2010 in [place]., Hx Tonsillectomy - Immunizations Hx Diphtheria, Pertussis, Tetanus Vaccination: Yes - 06/2011 Review of Systems - Review of Systems Notes: Dictated Physical Exam - Vital signs Vitals: Temp Pulse Resp BP Pulse Ox 98.6 F 88 20 148/87 H 97 09/05/17 15:19 09/05/17 15:19 09/05/17 15:19 09/05/17 15:19 09/05/17 15:19 - Notes Notes: Dictated Course - Re-evaluation Re-evalutation: 09/05/17 17:55 Given bronchodilator treatment with clinical improvement she was discharged home - Vital Signs Vital signs: Temp Pulse Resp BP Pulse Ox 98.6 F 88 20 148/87 H 97 09/05/17 15:19 09/05/17 15:19 09/05/17 15:19 09/05/17 15:19 09/05/17 15:19 Discharge - Discharge Clinical Impression: Acute exacerbation of asthma with allergic rhinitis Condition: Fair Disposition: HOME, SELF-CARE Instructions: Asthma ([facility]) Prescriptions: Prednisone [Sterapred Ds] 1 pkg PO ASDIR PRN 12 Days [email or web address] PRN Reason: Referrals: ERIC MYERS MD [HONORARY] - Follow up as needed
--- NOTE | 2017-09-05 17:25 | ER Document Report ---
ED Medical Screen (RME) - General Chief Complaint: Cough Stated Complaint: CHEST PAIN Time Seen by Provider: 09/05/17 15:49 Mode of Arrival: Ambulatory Notes: 32-year-old female with history of asthma presents with 1 week of increasing shortness of breath and upper back and upper chest tightness. PE: No acute distress. Lungs with slight wheeze. I have greeted and performed a rapid initial assessment of this patient. A comprehensive ED assessment and evaluation of the patient, analysis of test results and completion of the medical decision making process will be conducted by additional ED providers. TRAVEL OUTSIDE OF THE [place] IN LAST 30 DAYS: No - Related Data Allergies/Adverse Reactions: amoxicillin [Amoxicillin] Allergy (Verified 09/05/17 15:13) benzonatate [From Tessalon Perles] Allergy (Verified 09/05/17 15:13) iloperidone [From Fanapt] Allergy (Verified 09/05/17 15:13) Penicillins Allergy (Verified 09/05/17 15:13) Past Medical History - Social History Cigarette use (# per day): No Chew tobacco use (# tins/day): No Frequency of alcohol use: None Drug Abuse: None Family history: None - Past Medical History Cardiac Medical History: Reports: Hx Hypertension Denies: Hx Heart Attack Pulmonary Medical History: Reports: Hx Asthma, Hx Sleep Apnea Denies: Hx Bronchitis, Hx COPD, Hx Pneumonia Neurological Medical History: Denies: Hx Seizures Endocrine Medical History: Reports: Hx Diabetes Mellitus Type 2 - newly dx. Denies: Hx Diabetes Mellitus Type 1 Renal/ Medical History: Reports: Hx Ovarian Cysts. Denies: Hx Peritoneal Dialysis GI Medical History: Reports: Hx Gastroesophageal Reflux Disease Musculoskeltal Medical History: Denies Hx Arthritis Psychiatric Medical History: Reports: Hx Anxiety, Hx Attention Deficit Hyperactivity Disorder, Hx Depression - anxiety Past Surgical History: Reports: Hx Adenoidectomy, Hx Gynecologic Surgery - R ovarian cyst 2010 Uterine fibroid removal 2009 in [place]., Hx Tonsillectomy - Immunizations Hx Diphtheria, Pertussis, Tetanus Vaccination: Yes - 06/2011 Physical Exam - Vital signs Vitals: Temp Pulse Resp BP Pulse Ox 98.6 F 88 20 148/87 H 97 09/05/17 15:19 09/05/17 15:19 09/05/17 15:19 09/05/17 15:19 09/05/17 15:19 Course - Vital Signs Vital signs: Temp Pulse Resp BP Pulse Ox 98.6 F 88 20 148/87 H 97 09/05/17 15:19 09/05/17 15:19 09/05/17 15:19 09/05/17 15:19 09/05/17 15:19 Doctor's Discharge - Discharge Referrals: ERIC MYERS MD [HONORARY] - Follow up as needed
[2017-09-05 19:00] VITALS: BP 143/82
--- NOTE | 2017-09-05 20:45 | EKG REPORT ---
SEVERITY:- NORMAL ECG - SINUS RHYTHM : Confirmed by: Aleah Arndt MD 05-Sep-2017 20:44:26
== END 2017-09-05 18:58 | disposition home or self-care (01) ==
LOC: ER 15:11
DX: J45.901 Unspecified asthma with (acute) exacerbation (principal); R06.02 Shortness of breath; R07.89 Other chest pain; R05 Cough; I10 Essential (primary) hypertension; E11.9 Type 2 diabetes mellitus without complications; Z88.8 Allergy status to other drugs, medicaments and biological substances; Z88.0 Allergy status to penicillin; Z87.891 Personal history of nicotine dependence
CPT/HCPCS: 93005; 94640 ×2; 99284; 71046; 93010; J7512; J7620

== ENCOUNTER 2017-10-17 19:49 | Emergency (ER) | payer SELFPAY ==
--- NOTE | 2017-10-17 22:23 | ER Document Report ---
ED Medical Screen (RME) - General Chief Complaint: Abdominal Pain Stated Complaint: SHORTNESS OF BREATH Time Seen by Provider: 10/17/17 22:20 Mode of Arrival: Ambulatory Information source: Patient Notes: Patient is a 32-year-old female who presents with chief complaint of shortness of breath over the last 2 days. Patient also reports nausea, excess fatigue and weakness for 3-4 days. Patient reports that she has a history of anemia, patient reports she feels that she is very anemic. Patient does have a history of asthma however she states she has tried her inhaler and has not helped. Patient also complains of enlarged lymph node to her left groin. Patient denies any significant past medical history other than anemia and asthma. Exam: Palpable lymph node noted to left groin. Lung sounds are clear bilaterally but diminished, no wheezing noted. I have greeted and performed a rapid initial assessment of this patient. A comprehensive ED assessment and evaluation of the patient, analysis of test results and completion of the medical decision making process will be conducted by additional ED providers. Dictation of this chart was performed using voice recognition software; therefore, there may be some unintended grammatical errors. TRAVEL OUTSIDE OF THE [place] IN LAST 30 DAYS: No - Related Data Allergies/Adverse Reactions: amoxicillin [Amoxicillin] Allergy (Verified 09/05/17 15:13) benzonatate [From Tessalon Perles] Allergy (Verified 09/05/17 15:13) iloperidone [From Fanapt] Allergy (Verified 09/05/17 15:13) Penicillins Allergy (Verified 09/05/17 15:13) Past Medical History - Social History Family history: None - Past Medical History Cardiac Medical History: Reports: Hx Hypertension Denies: Hx Heart Attack Pulmonary Medical History: Reports: Hx Asthma, Hx Sleep Apnea Denies: Hx Bronchitis, Hx COPD, Hx Pneumonia Neurological Medical History: Denies: Hx Seizures Endocrine Medical History: Reports: Hx Diabetes Mellitus Type 2 - newly dx. Denies: Hx Diabetes Mellitus Type 1 Renal/ Medical History: Reports: Hx Ovarian Cysts. Denies: Hx Peritoneal Dialysis GI Medical History: Reports: Hx Gastroesophageal Reflux Disease Musculoskeltal Medical History: Denies Hx Arthritis Psychiatric Medical History: Reports: Hx Anxiety, Hx Attention Deficit Hyperactivity Disorder, Hx Depression - anxiety Past Surgical History: Reports: Hx Adenoidectomy, Hx Gynecologic Surgery - R ovarian cyst 2010 Uterine fibroid removal 2009 in [place]., Hx Tonsillectomy - Immunizations Hx Diphtheria, Pertussis, Tetanus Vaccination: Yes - 06/2011 Physical Exam - Vital signs Vitals: Temp Pulse Resp BP Pulse Ox 99 F 109 H 20 131/54 H 98 10/17/17 19:55 10/17/17 19:55 10/17/17 19:55 10/17/17 19:55 10/17/17 19:55 Course - Vital Signs Vital signs: Temp Pulse Resp BP Pulse Ox 99 F 109 H 20 131/54 H 98 10/17/17 19:55 10/17/17 19:55 10/17/17 19:55 10/17/17 19:55 10/17/17 19:55
--- NOTE | 2017-10-17 23:10 | RADIOLOGY REPORT (SQ) ---
EXAM DESCRIPTION: XR CHEST 2 VIEWS COMPLETED DATE/TME: 10/17/2017 22:20 CLINICAL HISTORY: 32 years, Female, shortness of breath COMPARISON: 09/05/2017 NUMBER OF VIEWS: Two TECHNIQUE: PA and lateral LIMITATIONS: None. FINDINGS: Cardiomediastinal silhouette is within normal limits. No lung consolidate. No pleural effusion. No pneumothorax. Osseous structures without acute finding. IMPRESSION: No acute chest finding. 2010 [employer]- All Rights Reserved
--- NOTE | 2017-10-18 01:04 | ER Document Report ---
ED Respiratory Problem - General Chief Complaint: Abdominal Pain Stated Complaint: SHORTNESS OF BREATH Time Seen by Provider: 10/17/17 22:20 Mode of Arrival: Ambulatory Information source: Patient TRAVEL OUTSIDE OF THE [place] IN LAST 30 DAYS: No - HPI Patient complains to provider of: Asthma Onset: Just prior to arrival Duration: Continuous Quality of pain: No pain Severity: None Pain Level: 0 Context: Hx asthma Short of Breath: Moderate Chest pain/discomfort: Constant Cough: Nonproductive Sputum amount: None Associated symptoms: None Similar symptoms previously: Yes Recently seen / treated by doctor: No - Related Data Allergies/Adverse Reactions: amoxicillin [Amoxicillin] Allergy (Verified 09/05/17 15:13) benzonatate [From Tessalon Perles] Allergy (Verified 09/05/17 15:13) iloperidone [From Fanapt] Allergy (Verified 09/05/17 15:13) Penicillins Allergy (Verified 09/05/17 15:13) Past Medical History - General Information source: Patient - Social History Smoking Status: Unknown if Ever Smoked Family History: Reviewed & Not Pertinent, DM, Other - Brother with blood clots, mother with hysterectomy - Past Medical History Cardiac Medical History: Reports: Hx Hypertension Denies: Hx Heart Attack Pulmonary Medical History: Reports: Hx Asthma, Hx Sleep Apnea Denies: Hx Bronchitis, Hx COPD, Hx Pneumonia Neurological Medical History: Denies: Hx Seizures Endocrine Medical History: Reports: Hx Diabetes Mellitus Type 2 - newly dx. Denies: Hx Diabetes Mellitus Type 1 Renal/ Medical History: Reports: Hx Ovarian Cysts. Denies: Hx Peritoneal Dialysis GI Medical History: Reports: Hx Gastroesophageal Reflux Disease Musculoskeletal Medical History: Denies Hx Arthritis Psychiatric Medical History: Reports: Hx Anxiety, Hx Attention Deficit Hyperactivity Disorder, Hx Depression - anxiety Past Surgical History: Reports: Hx Adenoidectomy, Hx Gynecologic Surgery - R ovarian cyst 2010 Uterine fibroid removal 2010 in [place]., Hx Tonsillectomy - Immunizations Hx Diphtheria, Pertussis, Tetanus Vaccination: Yes - 06/2011 Review of Systems - Review of Systems Constitutional: denies: Chills, Fever EENT: No symptoms reported Cardiovascular: denies: Chest pain, Palpitations Respiratory: Cough, Short of breath Gastrointestinal: No symptoms reported Genitourinary: No symptoms reported Female Genitourinary: No symptoms reported Musculoskeletal: No symptoms reported Skin: No symptoms reported Hematologic/Lymphatic: No symptoms reported Neurological/Psychological: No symptoms reported -: Yes All other systems reviewed and negative Physical Exam - Vital signs Vitals: Temp Pulse Resp BP Pulse Ox 99 F 109 H 20 131/54 H 98 10/17/17 19:55 10/17/17 19:55 10/17/17 19:55 10/17/17 19:55 10/17/17 19:55 - General General appearance: Appears well, Alert In distress: Mild - HEENT Head: Normocephalic, Atraumatic Eyes: Normal Pupils: PERRL - Respiratory Respiratory status: Respiratory distress Chest status: Nontender Breath sounds: Nonproductive cough, Wheezing Chest palpation: Normal - Cardiovascular Rhythm: Regular Heart sounds: Normal auscultation Murmur: No - Abdominal Inspection: Normal Distension: No distension Bowel sounds: Normal Tenderness: Nontender Organomegaly: No organomegaly - Back Back: Normal, Nontender - Extremities General upper extremity: Normal inspection, Nontender, Normal color, Normal ROM , Normal temperature General lower extremity: Normal inspection, Nontender, Normal color, Normal ROM , Normal temperature, Normal weight bearing. No: Aubree's sign - Neurological Neuro grossly intact: Yes Cognition: Normal Orientation: AAOx4 Marci Coma Scale Eye Opening: Spontaneous [place] Coma Scale Verbal: Oriented [place] Coma Scale Motor: Obeys Commands [place] Coma Scale Total: 15 Speech: Normal Motor strength normal: LUE, RUE, LLE, RLE Sensory: Normal - Psychological Associated symptoms: Normal affect, Normal mood - Skin Skin Temperature: Warm Skin Moisture: Dry Skin Color: Normal Course - Re-evaluation Re-evalutation: 10/18/17 12:32 Patient said she feels much better after receiving treatment in the ED. She wants to go home. - Vital Signs Vital signs: Temp Pulse Resp BP Pulse Ox 99.3 F 109 H 12 141/81 H 100 10/18/17 04:01 10/17/17 19:55 10/18/17 04:01 10/18/17 04:01 10/18/17 04:01 - Laboratory Result Diagrams: 10/18/17 01:40 10/18/17 01:40 Laboratory results interpreted by me: 10/18/17 10/18/17 10/18/17 01:40 01:40 01:40 Hct 35.7 L RDW 15.2 H Plt Count 462 H APTT 36.0 H Glucose 111 H Urine Ketones Ur Leukocyte Esterase 10/18/17 01:40 Hct RDW Plt Count APTT Glucose Urine Ketones TRACE H Ur Leukocyte Esterase TRACE H - Diagnostic Test Radiology reviewed: Image reviewed, Reports reviewed - EKG Interpretation by Me EKG shows normal: Sinus rhythm Rate: Normal - 91 Rhythm: NSR When compared to previous EKG there are: Previous EKG unavailable Additional EKG results interpreted by me: 10/18/17 01:58 No STEMI - Transfer of Care Notes: 10/18/17 02:01 Asthma Exacerbation. Bronchitis. Discharge - Discharge Clinical Impression: Bronchitis Asthma Qualifiers: Asthma severity: mild Asthma persistence: intermittent Asthma complication type : with acute exacerbation Qualified Code(s): J45.21 - Mild intermittent asthma with (acute) exacerbation Condition: Stable Disposition: HOME, SELF-CARE Instructions: Asthma ([facility] [place]) Additional Instructions: Please follow-up with your primary doctor tomorrow morning. Return to the emergency room if your condition worsens. Prescriptions: Albuterol Sulfate [Proair HFA Inhalation Aerosol 8.5 gm MDI] 2 puff IH Q4H PRN # 1 mdi PRN Reason: Levofloxacin [Levaquin 750 mg Tablet] 750 mg PO DAILY #10 tablet Prednisone [Deltasone 20 mg Tablet] 3 tab PO DAILY 5 Days tablet Forms: Return to Work Referrals: ERIC MYERS MD [Primary Care Provider] - Follow up as needed
[2017-10-18] MEDS ORDERED: NORMAL SALINE 1000 ML 1,000 ML IV ONE (01:19)
[2017-10-18] MEDS ORDERED: IPRATROPIUM/ALBUTEROL 0.5-2.5 MG/3 ML AMPUL NEB ONE (01:19)
[2017-10-18] MEDS ORDERED: METHYLPREDNISOLONE INJ 125 MG/2 ML SDV IV ONE (01:20)
[2017-10-18] MEDS ORDERED: LEVOFLOXACIN 750 MG/D5W RTU 750 MG/150 ML RTUPB IV ONE (02:02)
[2017-10-18 02:03] LABS: ABSOLUTE BASOPHILS # (AUTO) 0.1 10^3/uL (0.0-0.2); ABSOLUTE EOSINOPHILS # (AUTO) 0.1 10^3/uL (0.0-0.6); ABSOLUTE LYMPHOCYTES (AUTO) 2.4 10^3/uL (0.5-4.7); ABSOLUTE MONOCYTES (AUTO) 0.4 10^3/uL (0.1-1.4); ABSOLUTE NEUT (AUTO) 7.4 10^3/uL (1.7-8.2); BASOPHILS % (AUTO) 0.9 % (0-2); EOSINOPHILS % (AUTO) 0.9 % (0-6); HEMATOCRIT 35.7 % (36.0-47.0); MEAN CORPUSCULAR HGB CONC 33.6 g/dL (32.0-36.0); MEAN CORPUSCULAR VOLUME 86 fl (80-97); MONOCYTES % (AUTO) 4.1 % (3-13); PLATELET COUNT 462 10^3/uL (150-450); RED BLOOD COUNT 4.13 10^6/uL (3.72-5.28); RED CELL DISTRIBUTION WIDTH 15.2 % (11.5-14.0); SEGMENTED NEUTROPHILS % (AUTO) 71.1 % (42-78); TOTAL CELLS COUNTED % (AUTO) 100 %; WHITE BLOOD COUNT 10.4 10^3/uL (4.0-10.5)
[2017-10-18 02:09] LABS: INTERNATIONAL RATION (INR) 1.07; PROTHROMBIN TIME 14.4 SEC (11.4-15.4)
[2017-10-18 02:15] LABS: APPEARANCE,URINE CLEAR; BILIRUBIN,URINE NEGATIVE (NEGATIVE); COLOR,URINE YELLOW; GLUCOSE, URINE NEGATIVE (NEGATIVE); KETONES,URINE TRACE mg/dL (NEGATIVE); LEUKOCYTE ESTERASE,URINE TRACE (NEGATIVE); NITRITE,URINE NEGATIVE (NEGATIVE); PROTEIN,URINE NEGATIVE (NEGATIVE); URINE SPECIFIC GRAVITY 1.023; UROBILINOGEN,URINE NEGATIVE mg/dL (<2.0)
[2017-10-18 02:25] LABS: D-DIMER 0.27 ug/mL (0.00-0.50)
[2017-10-18 02:27] LABS: ALANINE AMINOTRANSFERASE 27 U/L (9-52); ALBUMIN 4.1 g/dL (3.5-5.0); ALKALINE PHOSPHATASE 107 U/L (38-126); ANION GAP 15 (5-19); ASPARTATE AMINO TRANSFERASE 26 U/L (14-36); BILIRUBIN,DIRECT 0.4 mg/dL (0.0-0.4); BILIRUBIN,TOTAL 0.5 mg/dL (0.2-1.3); BLOOD UREA NITROGEN 10 mg/dL (7-20); CALCIUM 9.8 mg/dL (8.4-10.2); CARBON DIOXIDE 26 mmol/L (22-30); CHLORIDE 103 mmol/L (98-107); GLUCOSE 111 mg/dL (75-110); POTASSIUM 4.6 mmol/L (3.6-5.0); TOTAL PROTEIN 8.2 g/dL (6.3-8.2)
[2017-10-18 02:34] LABS: NT PRO BNP 23 pg/mL (<125)
[2017-10-18 02:38] LABS: TROPONIN I < 0.012 ng/mL
[2017-10-18 04:32] VITALS: BP 141/81
--- NOTE | 2017-10-20 09:04 | EKG REPORT ---
SEVERITY:- NORMAL ECG - SINUS RHYTHM : Confirmed by: Luzmaria Lindsey 20-Oct-2017 09:03:48
== END 2017-10-18 04:39 | disposition home or self-care (01) ==
LOC: ER 19:49
DX: J45.21 Mild intermittent asthma with (acute) exacerbation (principal); R10.9 Unspecified abdominal pain; R06.02 Shortness of breath; I10 Essential (primary) hypertension; E11.9 Type 2 diabetes mellitus without complications
CPT/HCPCS: 93005; 94640; 99284; 96375; 96365; 36415; 85025; 85610; 85730; 81025; 80053; 81001; 84484; 85379; 83880; 71046; 93010; J2930; J1956; J7620

== ENCOUNTER 2018-01-06 10:47 | Emergency (ER) | payer SELFPAY ==
[2018-01-06 12:08] LABS: ABSOLUTE BASOPHILS # (AUTO) 0.1 10^3/uL (0.0-0.2); ABSOLUTE EOSINOPHILS # (AUTO) 0.1 10^3/uL (0.0-0.6); ABSOLUTE LYMPHOCYTES (AUTO) 3.3 10^3/uL (0.5-4.7); ABSOLUTE MONOCYTES (AUTO) 0.4 10^3/uL (0.1-1.4); ABSOLUTE NEUT (AUTO) 5.2 10^3/uL (1.7-8.2); BASOPHILS % (AUTO) 0.8 % (0-2); EOSINOPHILS % (AUTO) 1.5 % (0-6); HEMATOCRIT 37.1 % (36.0-47.0); HEMOGLOBIN 12.3 g/dL (12.0-15.5); LYMPHOCYTES % (AUTO) 35.6 % (13-45); MEAN CORPUSCULAR HEMOGLOBIN 28.8 pg (27.0-33.4); MEAN CORPUSCULAR VOLUME 87 fl (80-97); MONOCYTES % (AUTO) 4.7 % (3-13); PLATELET COUNT 404 10^3/uL (150-450); RED BLOOD COUNT 4.25 10^6/uL (3.72-5.28); RED CELL DISTRIBUTION WIDTH 14.3 % (11.5-14.0); SEGMENTED NEUTROPHILS % (AUTO) 57.4 % (42-78); TOTAL CELLS COUNTED % (AUTO) 100 %; WHITE BLOOD COUNT 9.1 10^3/uL (4.0-10.5)
[2018-01-06 12:13] LABS: ALANINE AMINOTRANSFERASE 30 U/L (9-52); ALKALINE PHOSPHATASE 107 U/L (38-126); ANION GAP 12 (5-19); ASPARTATE AMINO TRANSFERASE 32 U/L (14-36); BILIRUBIN,DIRECT 0.4 mg/dL (0.0-0.4); BILIRUBIN,TOTAL 0.6 mg/dL (0.2-1.3); BLOOD UREA NITROGEN 11 mg/dL (7-20); CALCIUM 9.2 mg/dL (8.4-10.2); CARBON DIOXIDE 28 mmol/L (22-30); CHLORIDE 103 mmol/L (98-107); GLUCOSE 90 mg/dL (75-110); LIPASE 40.4 U/L (23-300); POTASSIUM 4.4 mmol/L (3.6-5.0); SODIUM 143.3 mmol/L (137-145); TOTAL PROTEIN 7.5 g/dL (6.3-8.2)
--- NOTE | 2018-01-06 12:14 | ER Document Report ---
ED General - General Chief Complaint: Chest Pain Stated Complaint: CHEST PAIN Time Seen by Provider: 01/06/18 11:37 Notes: Patient is complaining of "pressure" in the upper anterior mid chest region for the past 2 days. It has been there off and on but mostly on during these couple of days. Does not recall any unusual activity or lifting anything heavy that would have strained any muscles in that area. Patient had some similar symptoms in August and was seen here and she says they told her she had an ulcer and gave her Carafate which she is been taking but it does not relieve her symptoms this time. She is also here because she is having "palpitations". She is on diltiazem for that problem and it works more times than not. She has been evaluated by Dr. Arndt in 2017, with an echocardiogram for these palpitations and told that her heart was normal. She still has breakthrough palpitations in spite of the diltiazem. Patient has been nauseated but not vomiting. Has been feeling "gassy". Has had a recent cough. Does have some shortness of breath, but has asthma. Has had a headache, but she has had headaches like this many times in the past. No fevers. Patient's surgeries are a tonsillectomy and adenoidectomy. PMH: NIDDM, hypertension, depression, bipolar, and anxiety. Does not smoke or drink alcohol. Patient's primary care is the [facility]. This is her 24th visit to this emergency department in the past 2 years. TRAVEL OUTSIDE OF THE [place] IN LAST 30 DAYS: No - Related Data Allergies/Adverse Reactions: amoxicillin [Amoxicillin] Allergy (Verified 01/06/18 10:48) benzonatate [From Tessalon Perles] Allergy (Verified 01/06/18 10:48) iloperidone [From Fanapt] Allergy (Verified 01/06/18 10:48) Penicillins Allergy (Verified 01/06/18 10:48) Past Medical History - Social History Smoking Status: Never Smoker Family History: Reviewed & Not Pertinent, DM, Other - Brother with blood clots, mother with hysterectomy Patient has suicidal ideation: No Patient has homicidal ideation: No - Past Medical History Cardiac Medical History: Reports: Hx Hypertension Denies: Hx Coronary Artery Disease, Hx Heart Attack Pulmonary Medical History: Reports: Hx Asthma, Hx Sleep Apnea Denies: Hx Bronchitis, Hx COPD, Hx Pneumonia Neurological Medical History: Denies: Hx Seizures Endocrine Medical History: Reports: Hx Diabetes Mellitus Type 2 - newly dx. Denies: Hx Diabetes Mellitus Type 1 Renal/ Medical History: Reports: Hx Ovarian Cysts. Denies: Hx Peritoneal Dialysis GI Medical History: Reports: Hx Gastroesophageal Reflux Disease, Hx Ulcer - Told she has an ulcer when seen here in August, of this year. Musculoskeletal Medical History: Denies Hx Arthritis Psychiatric Medical History: Reports: Hx Anxiety, Hx Attention Deficit Hyperactivity Disorder, Hx Bipolar Disorder, Hx Depression - anxiety Past Surgical History: Reports: Hx Adenoidectomy, Hx Gynecologic Surgery - R ovarian cyst 2010 Uterine fibroid removal 2010 in [place]., Hx Tonsillectomy - Immunizations Hx Diphtheria, Pertussis, Tetanus Vaccination: Yes - 06/2011 Review of Systems - Review of Systems Notes: REVIEW OF SYSTEMS: CONSTITUTIONAL : Denies fever. EENT: Denies eye, ear, nose or mouth or throat pain or other symptoms. CARDIOVASCULAR: See HPI. RESPIRATORY: Has had a recent cough and occasionally feels short of breath. GASTROINTESTINAL: Nauseated but not vomiting. No diarrhea. GENITOURINARY: Denies difficulty or painful urinating, urinary frequency, blood in urine. MUSCULOSKELETAL: Denies back or neck pain. Denies joint pain or swelling. SKIN: Denies rash or skin lesions. NEUROLOGICAL: Denies LOC or altered mental status. Denies headache. Denies sensory loss or motor deficits. ALL OTHER SYSTEMS REVIEWED AND NEGATIVE. Physical Exam - Vital signs Vitals: Temp Resp BP 98.6 F 13 108/74 01/06/18 11:16 01/06/18 11:16 01/06/18 11:16 Interpretation: Normal - Notes Notes: PHYSICAL EXAMINATION: GENERAL: Well-appearing, in no acute distress. 154 kg. Does not appear to be ill. Moves about freely on the stretcher without apparent pain. HEAD: Atraumatic, normocephalic. EYES: Pupils equal round and reactive to light, extraocular movements intact. ENT: oropharynx clear without exudates. Moist mucous membranes. NECK: Normal range of motion, supple. LUNGS: Breath sounds clear and equal bilaterally. No chest wall tenderness to palpation. HEART: Regular rate and rhythm without murmurs. ABDOMEN: Soft, nontender. No guarding or rebound. No masses. BACK: No tenderness throughout entire back. EXTREMITIES: Normal range of motion without pain. NEUROLOGICAL: Normal speech, normal gait. Normal sensory, motor, and reflex exams. Awake, alert, and oriented x3. Cranial nerves normal. PSYCH: Normal mood, normal affect. SKIN: Warm, dry, no rashes. Course - Vital Signs Vital signs: Temp Pulse Resp BP Pulse Ox 98.6 F 14 120/48 L 01/06/18 11:16 01/06/18 14:00 01/06/18 13:55 - Laboratory Result Diagrams: 01/06/18 11:20 01/06/18 11:20 Laboratory results interpreted by me: 01/06/18 11:20 RDW 14.3 H - EKG Interpretation by Ct EKG shows normal: Sinus rhythm Rate: Normal Rhythm: NSR Additional EKG results interpreted by me: 01/06/18 13:14 EKG is normal. Nonspecific T wave changes in the anterior leads. Discharge - Discharge Clinical Impression: Chest pain, non-cardiac, Acid reflux disease Condition: Stable Disposition: HOME, SELF-CARE Additional Instructions: CHEST PAIN OF UNCLEAR CAUSE: The exact cause of your chest pain isn't clear. Fortunately, there is no evidence of a dangerous medical condition. Further testing may be required to find the source of the pain. Most often, we find that this pain is coming from the chest wall -- the muscles or rib joints in the chest. But chest pain can come from the lung and lung lining, the esophagus, the heart valves or heart lining, and even the stomach or gallbladder. Rest. Eat lightly until the pain is gone. We may prescribe medicine for pain and inflammation. You should call the physician immediately if the pain radiates to the shoulder, jaw or arms; if you start to run a fever or develop a cough; or if you develop shortness of breath, or other new or alarming symptoms. NORMAL EXAM AND WORKUP: At this time, your examination and workup show no significant abnormality. No significant abnormal physical findings were noted. All laboratory, EKG, and imaging (x-ray, CT scans, ultrasound) studies that were ordered show no significant abnormality. Although your examination and all studies that were ordered showed no significant abnormal finding, there are no examinations and no studies that are 100% accurate. There is always the possibility that some abnormality could exist and not be detected with physical examination or within the limits and capabilities of laboratory and other studies. You should return or follow up as you were instructed on your visit today for further evaluation if your symptoms do not resolve. ACID REFLUX DISEASE (GERD): Gastro-Esophageal Reflux Disease (GERD) is caused by stomach acid refluxing back up into the esophagus. The valve at the end of the esophagus may be weak. This is common in persons with a hiatal hernia. GERD symptoms can include indigestion, chest pain, heartburn, or food "sticking." Certain foods, alcohol, and aspirin can make GERD worse. Treatment depends on the severity. Usually, antacids or acid-suppressing medicines are used. When the esophagus is acutely inflamed, the physician will often prescribe membrane-protective drugs such as Carafate. Some patients benefit from medication such as Reglan that tightens the valve at the top of the stomach. Avoid those foods that bring on your symptoms. For many people, these foods are coffee, chocolate, onions, garlic, and carbonated drinks. Don't use alcohol, aspirin, caffeine, or tobacco. Don't eat late at night -- within 4 hours of bedtime. Don't over-eat. If necessary, elevate the head of your bed about 4 inches so that stomach acid will not roll up into your esophagus. Call the doctor if you develop severe chest pain, inability to swallow fluids, fever, or worsening symptoms. ANTACID THERAPY: You have been instructed to start antacid therapy. Antacids directly neutralize stomach acid. This is useful for acid irritation of the esophagus, gastritis, and ulcers. You should take two tablespoons of antacid one hour after each meal and three hours after each meal. If you are not eating, take the antacid every two hours. If you are using a concentrate (such as Maalox TC), use only one tablespoon. Many antacids affect the bowels. The most common problem is diarrhea. In this case, a pure aluminum hydroxide antacid (such as AlternaGel) can be substituted for some or all doses. If the problem is constipation, add a teaspoon of Milk of Magnesia to each dose. Call the doctor if you experience continued diarrhea or constipation, or if you develop lightheadedness, bloody stool or vomitus, severe abdominal pain, or black stool. Take [id number] Zantac as prescribed. I am also giving her a prescription for Reglan to take to see if it will help with the motility of foods, etc. through your esophagus into your stomach and intestines. Reglan (Metoclopramide) Reglan has been prescribed. This medicine affects the stomach and intestines. It can be used to treat nausea and vomiting, to prevent reflux of stomach acid up into the esophagus, or to increase the contractions of the stomach and intestines. It is often prescribed for esophagitis, and for paralysis of the stomach in diabetics. Reglan can cause either mild restlessness or drowsiness. You should contact the doctor at once if you become extremely restless, anxious, or cannot sleep, or if you develop uncontrollable motions of the lips, tongue, or jaw. Do not take alcohol with this medicine. Do not drive or operate machinery until you have been taking this medicine long enough to know how it affects you. Call the doctor if you develop abdominal pains, lightheadedness, black stool, or blood in the stool or vomitus. FOLLOW-UP CARE: If you have been referred to a physician for follow-up care, call the physician s office for an appointment as you were instructed or within the next two days. If you experience worsening or a significant change in your symptoms, notify the physician immediately or return to the Emergency Department at any time for re-evaluation. Prescriptions: Metoclopramide HCl [Reglan] 10 mg PO QIDP PRN #40 tablet PRN Reason: Referrals: ERIC MYERS MD [Primary Care Provider] - Follow up as needed
--- NOTE | 2018-01-06 14:02 | RADIOLOGY REPORT (SQ) ---
EXAM DESCRIPTION: CHEST 2 VIEWS COMPLETED DATE/TIME: 01/06/2018 12:14 pm REASON FOR STUDY: Chest pain COMPARISON: 10/17/2017 and earlier EXAM PARAMETERS: NUMBER OF VIEWS: two views TECHNIQUE: Digital Frontal and Lateral radiographic views of the chest acquired. RADIATION DOSE: NA LIMITATIONS: none FINDINGS: LUNGS AND PLEURA: No opacities, masses or pneumothorax. No pleural effusion. MEDIASTINUM AND HILAR STRUCTURES: No masses or contour abnormalities. HEART AND VASCULAR STRUCTURES: Heart normal size. No evidence for failure. BONES: No acute findings. HARDWARE: None in the chest. OTHER: No other significant finding. IMPRESSION: NO ACUTE RADIOGRAPHIC FINDING IN THE CHEST. TECHNICAL DOCUMENTATION: JOB ID: [id number] [employer]- All Rights Reserved Reading location - IP/workstation name: [email or web address]
--- NOTE | 2018-01-06 14:13 | EKG REPORT ---
SEVERITY:- BORDERLINE ECG - SINUS RHYTHM BORDERLINE T ABNORMALITIES, ANTERIOR LEADS : Confirmed by: Luis Eduardo Medrano MD 06-Jan-2018 14:11:53
[2018-01-06 14:42] VITALS: BP 135/85
== END 2018-01-06 14:39 | disposition home or self-care (01) ==
LOC: ER 10:47
DX: R07.89 Other chest pain (principal); K21.9 Gastro-esophageal reflux disease without esophagitis; R11.0 Nausea; R05 Cough; R06.02 Shortness of breath; E11.9 Type 2 diabetes mellitus without complications; I10 Essential (primary) hypertension; Z88.0 Allergy status to penicillin
CPT/HCPCS: 36415; 71046; 80053; 83690; 84484; 84703; 85025; 93005; 93010; 99285

== ENCOUNTER 2018-01-12 11:11 | Emergency (ER) | payer SELFPAY ==
[2018-01-12] MEDS ORDERED: NORMAL SALINE 1000 ML 1,000 ML IV ONE (12:11)
[2018-01-12] MEDS ORDERED: ONDANSETRON HCL INJ/PF 4 MG/2 ML SDV IV ONE (12:12)
[2018-01-12] MEDS ORDERED: FENTANYL CITRATE INJ/PF 100 MCG/2 ML AMPUL IV ONE ×2 (12:12→16:28)
--- NOTE | 2018-01-12 12:12 | ER Document Report ---
ED Medical Screen (RME) - General Chief Complaint: Nausea/Vomiting Stated Complaint: NAUSEA/VOMITING Time Seen by Provider: 01/12/18 11:55 Notes: 32-year-old female to the emergency department complaining of nausea, vomiting and lower abdominal pain with diarrhea. Cannot seem to keep anything down. Body aches and generally not feeling well. I have greeted and performed a rapid initial assessment of this patient. A comprehensive ED assessment and evaluation of the patient, analysis of test results and completion of the medical decision making process will be conducted by additional ED providers. TRAVEL OUTSIDE OF THE [place] IN LAST 30 DAYS: No - Related Data Allergies/Adverse Reactions: amoxicillin [Amoxicillin] Allergy (Verified 01/06/18 10:48) benzonatate [From Tessalon Perles] Allergy (Verified 01/06/18 10:48) iloperidone [From Fanapt] Allergy (Verified 01/06/18 10:48) Penicillins Allergy (Verified 01/06/18 10:48) Past Medical History - Social History Family history: None - Past Medical History Cardiac Medical History: Reports: Hx Hypertension Denies: Hx Coronary Artery Disease, Hx Heart Attack Pulmonary Medical History: Reports: Hx Asthma, Hx Sleep Apnea Denies: Hx Bronchitis, Hx COPD, Hx Pneumonia Neurological Medical History: Denies: Hx Seizures Endocrine Medical History: Reports: Hx Diabetes Mellitus Type 2. Denies: Hx Diabetes Mellitus Type 1 Renal/ Medical History: Reports: Hx Ovarian Cysts. Denies: Hx Peritoneal Dialysis GI Medical History: Reports: Hx Gastroesophageal Reflux Disease, Hx Ulcer Musculoskeltal Medical History: Denies Hx Arthritis Psychiatric Medical History: Reports: Hx Anxiety, Hx Attention Deficit Hyperactivity Disorder, Hx Bipolar Disorder, Hx Depression - anxiety Past Surgical History: Reports: Hx Adenoidectomy, Hx Gynecologic Surgery - R ovarian cyst 2010 Uterine fibroid removal 2010 in [place]., Hx Tonsillectomy - Immunizations Hx Diphtheria, Pertussis, Tetanus Vaccination: Yes - 06/2011 Review of Systems - Review of Systems Notes: Review of systems positive for the following: Abdominal pain, nausea, vomiting and diarrhea Physical Exam - Vital signs Vitals: Temp Pulse Resp BP Pulse Ox 98.4 F 112 H 24 H 100/65 98 01/12/18 11:42 01/12/18 11:42 01/12/18 11:42 01/12/18 11:42 01/12/18 11:42 - Respiratory Respiratory status: No respiratory distress Chest status: Nontender Breath sounds: Normal Chest palpation: Normal - Cardiovascular Rhythm: Tachycardia Heart sounds: Normal auscultation Murmur: No - Abdominal Inspection: Normal Distension: No distension Bowel sounds: Normal Tenderness: Tender - Diffuse lower abdominal tenderness Organomegaly: No organomegaly Course - Vital Signs Vital signs: Temp Pulse Resp BP Pulse Ox 98.4 F 112 H 24 H 100/65 98 01/12/18 11:42 01/12/18 11:42 01/12/18 11:42 01/12/18 11:42 01/12/18 11:42 Doctor's Discharge - Discharge Referrals: ERIC MYERS MD [Primary Care Provider] - Follow up as needed
[2018-01-12 13:31] LABS: ABSOLUTE MONOCYTES (AUTO) 0.7 10^3/uL (0.1-1.4); ABSOLUTE NEUT (AUTO) 15.6 10^3/uL (1.7-8.2); BASOPHILS % (AUTO) 0.2 % (0-2); EOSINOPHILS % (AUTO) 0.2 % (0-6); HEMATOCRIT 41.8 % (36.0-47.0); HEMOGLOBIN 13.7 g/dL (12.0-15.5); LYMPHOCYTES % (AUTO) 5.8 % (13-45); MEAN CORPUSCULAR HEMOGLOBIN 28.6 pg (27.0-33.4); MEAN CORPUSCULAR HGB CONC 32.8 g/dL (32.0-36.0); MEAN CORPUSCULAR VOLUME 87 fl (80-97); MONOCYTES % (AUTO) 4.3 % (3-13); PLATELET COUNT 395 10^3/uL (150-450); RED BLOOD COUNT 4.79 10^6/uL (3.72-5.28); RED CELL DISTRIBUTION WIDTH 14.3 % (11.5-14.0); SEGMENTED NEUTROPHILS % (AUTO) 89.5 % (42-78); TOTAL CELLS COUNTED % (AUTO) 100 %; WHITE BLOOD COUNT 17.4 10^3/uL (4.0-10.5)
[2018-01-12 13:41] LABS: ALANINE AMINOTRANSFERASE 28 U/L (9-52); ALBUMIN 4.4 g/dL (3.5-5.0); ALKALINE PHOSPHATASE 117 U/L (38-126); ANION GAP 12 (5-19); ASPARTATE AMINO TRANSFERASE 32 U/L (14-36); BILIRUBIN,DIRECT 0.1 mg/dL (0.0-0.4); BILIRUBIN,TOTAL 0.4 mg/dL (0.2-1.3); BLOOD UREA NITROGEN 12 mg/dL (7-20); CALCIUM 9.7 mg/dL (8.4-10.2); CARBON DIOXIDE 28 mmol/L (22-30); CHLORIDE 103 mmol/L (98-107); GLUCOSE 121 mg/dL (75-110); LIPASE 51.1 U/L (23-300); POTASSIUM 4.3 mmol/L (3.6-5.0); SODIUM 143.1 mmol/L (137-145); TOTAL PROTEIN 8.4 g/dL (6.3-8.2)
[2018-01-12 14:31] LABS: APPEARANCE,URINE CLOUDY; BILIRUBIN,URINE NEGATIVE (NEGATIVE); GLUCOSE, URINE NEGATIVE (NEGATIVE); KETONES,URINE NEGATIVE (NEGATIVE); LEUKOCYTE ESTERASE,URINE SMALL (NEGATIVE); NITRITE,URINE NEGATIVE (NEGATIVE); PROTEIN,URINE 30 mg/dL (NEGATIVE); URINE SPECIFIC GRAVITY 1.027
[2018-01-12 14:32] LABS: COLOR,URINE DARK YELLOW
--- NOTE | 2018-01-12 15:29 | RADIOLOGY REPORT (SQ) ---
EXAM DESCRIPTION: ACUTE ABDOMEN SERIES COMPLETED DATE/TIME: 01/12/2018 3:06 pm REASON FOR STUDY: Acute abdominal pain COMPARISON: 09/11/2016 abdominal films Two-view chest 01/06/2018 NUMBER OF VIEWS: Three views. TECHNIQUE: Frontal chest, supine abdomen and upright abdomen radiographic images acquired. LIMITATIONS: Morbid obesity FINDINGS: CHEST: Lungs clear of infiltrates. No cardiac enlargement. Suad unremarkable. FREE AIR: None. No abnormal gas collections. BOWEL GAS PATTERN: Nonobstructive pattern. No dilated loops or air fluid levels. CALCIFICATIONS: No suspicious calcifications. HARDWARE: None in the abdomen. SOFT TISSUES: No gross mass or suggestion of organomegaly. BONES: No acute fracture. No worrisome bone lesions. OTHER: No other significant finding. IMPRESSION: NO RADIOGRAPHIC EVIDENCE FOR ACUTE ABDOMINAL DISEASE. TECHNICAL DOCUMENTATION: JOB ID: [id number] [employer]- All Rights Reserved Reading location - IP/workstation name: [email or web address]
--- NOTE | 2018-01-12 16:18 | ER Document Report ---
ED GI/ - General Chief Complaint: Nausea/Vomiting Stated Complaint: NAUSEA/VOMITING Time Seen by Provider: 01/12/18 11:55 Mode of Arrival: Ambulatory Information source: Patient Notes: Chief complaint: abdominal pain: History of complain:( obtained from----patient) 32 years old female presents today with abdominal pain nausea vomiting diarrhea after eating some bad food in a restaurant. No fever chills or other constitutional symptoms have multiple loose stools. Stools were green in color. Onset: As above Duration: Since this morning Severity: Moderate Quality: Crampy Context: Possible infection Exacerbating factor and relieving factors: REVIEW OF SYSTEMS: CONSTITUTIONAL : Denies fever, chills, or sweats. Denies recent illness. EENT: Denies eye, ear, throat, or mouth pain or symptoms. Denies nasal or sinus congestion or discharge. Denies throat, tongue, or mouth swelling or difficulty swallowing. CARDIOVASCULAR: Denies chest pain. Denies palpitations or racing or irregular heart beat. Denies ankle edema. RESPIRATORY: Denies cough, cold, or chest congestion. Denies shortness of breath, difficulty breathing, or wheezing. GASTROINTESTINAL: Denies distention. Denies nausea, vomiting, or diarrhea. Denies blood in vomitus, stools, or per rectum. Denies black, tarry stools. Denies constipation. GENITOURINARY: Denies difficulty urinating, painful urination, burning, frequency, blood in urine, or discharge. FEMALE GENITOURINARY: Denies vaginal bleeding, heavy or abnormal periods, irregular periods. Denies vaginal discharge or odor. MUSCULOSKELETAL: Denies back or neck pain or stiffness. Denies joint pain or swelling. SKIN: Denies rash, lesions or sores. HEMATOLOGIC : Denies easy bruising or bleeding. LYMPHATIC: Denies swollen, enlarged glands. NEUROLOGICAL: Denies confusion or altered mental status. Denies passing out or loss of consciousness. Denies dizziness or lightheadedness. Denies headache. Denies weakness or paralysis or loss of use of either side. Denies problems with gait or speech. Denies sensory loss, numbness, or tingling. Denies seizures. PSYCHIATRIC: Denies anxiety or stress. Denies depression, suicidal ideation, or homicidal ideation. ALL OTHER SYSTEMS REVIEWED AND NEGATIVE. PHYSICAL EXAMINATION: GENERAL: Well-appearing, well-nourished and in mild to moderate acute distress. HEAD: Atraumatic, normocephalic. EYES: Pupils equal round and reactive to light, extraocular movements intact, conjunctiva are normal. ENT: Nares patent, oropharynx clear without exudates. Moist mucous membranes. NECK: Normal range of motion, supple without lymphadenopathy LUNGS: Breath sounds clear to auscultation bilaterally and equal. No wheezes rales or rhonchi. HEART: Regular rate and rhythm without murmurs ABDOMEN: Soft, nontender, nondistended abdomen. No guarding, no rebound. No masses appreciated. Female : deferred Musculoskeletal: Normal range of motion, no pitting or edema. No cyanosis. NEUROLOGICAL: Cranial nerves grossly intact. Normal speech, normal gait. Normal sensory, motor exams PSYCH: Normal mood, normal affect. SKIN: Warm, Dry, normal turgor, no rashes or lesions noted. Dictation was performed using [employer] voice recognition software TRAVEL OUTSIDE OF THE [place] IN LAST 30 DAYS: No - HPI Notes: 01/12/18 16:21 Dictated - Related Data Allergies/Adverse Reactions: amoxicillin [Amoxicillin] Allergy (Verified 01/06/18 10:48) benzonatate [From Tessalon Perles] Allergy (Verified 01/06/18 10:48) iloperidone [From Fanapt] Allergy (Verified 01/06/18 10:48) Penicillins Allergy (Verified 01/06/18 10:48) Past Medical History - Social History Smoking Status: Never Smoker Frequency of alcohol use: None Drug Abuse: None Lives with: Family Family History: Reviewed & Not Pertinent, DM, Other - Brother with blood clots, mother with hysterectomy Patient has suicidal ideation: No Patient has homicidal ideation: No - Past Medical History Cardiac Medical History: Reports: Hx Hypertension Denies: Hx Coronary Artery Disease, Hx Heart Attack Pulmonary Medical History: Reports: Hx Asthma, Hx Sleep Apnea Denies: Hx Bronchitis, Hx COPD, Hx Pneumonia Neurological Medical History: Denies: Hx Seizures Endocrine Medical History: Reports: Hx Diabetes Mellitus Type 2. Denies: Hx Diabetes Mellitus Type 1 Renal/ Medical History: Reports: Hx Ovarian Cysts. Denies: Hx Peritoneal Dialysis GI Medical History: Reports: Hx Gastroesophageal Reflux Disease, Hx Ulcer Musculoskeletal Medical History: Denies Hx Arthritis Psychiatric Medical History: Reports: Hx Anxiety, Hx Attention Deficit Hyperactivity Disorder, Hx Bipolar Disorder, Hx Depression - anxiety Past Surgical History: Reports: Hx Adenoidectomy, Hx Gynecologic Surgery - R ovarian cyst 2010 Uterine fibroid removal 2010 in [place]., Hx Tonsillectomy - Immunizations Hx Diphtheria, Pertussis, Tetanus Vaccination: Yes - 06/2011 Review of Systems - Review of Systems Notes: Dictated Physical Exam - Vital signs Vitals: Temp Pulse Resp BP Pulse Ox 98.4 F 112 H 24 H 100/65 98 01/12/18 11:42 01/12/18 11:42 01/12/18 11:42 01/12/18 11:42 01/12/18 11:42 - Notes Notes: Dictated Course - Re-evaluation Re-evalutation: 01/12/18 16:22 Given IV fluid, and pain medications - Vital Signs Vital signs: Temp Pulse Resp BP Pulse Ox 98.4 F 112 H 24 H 100/65 98 01/12/18 11:42 01/12/18 11:42 01/12/18 11:42 01/12/18 11:42 01/12/18 11:42 - Laboratory Result Diagrams: 01/12/18 13:13 01/12/18 13:13 Laboratory results interpreted by me: 01/12/18 01/12/18 01/12/18 13:13 13:13 13:13 WBC 17.4 H RDW 14.3 H Seg Neutrophils % 89.5 H Lymphocytes % 5.8 L Absolute Neutrophils 15.6 H Creatinine 1.29 H Est GFR ( Amer) 58 L Est GFR (Non-Af Amer) 48 L Glucose 121 H Total Protein 8.4 H Urine Protein 30 H Urine Blood SMALL H Urine Urobilinogen 2.0 H Ur Leukocyte Esterase SMALL H - Diagnostic Test Radiology reviewed: Reports reviewed - Radiologist reported abdominal x-ray is unremarkable Discharge - Discharge Clinical Impression: Gastroenteritis Condition: Fair Disposition: HOME, SELF-CARE Instructions: Gastroenteritis (adult) (OM) Prescriptions: Ketorolac Tromethamine [Toradol 10 mg Tablet] 10 mg PO Q8HP PRN #14 tablet PRN Reason: Ciprofloxacin HCl [Cipro] 500 mg PO BID #20 tablet Dicyclomine HCl [Bentyl 10 mg Capsule] 1 cap PO TID #30 cap Metronidazole [Flagyl 250 mg Tablet] 250 mg PO Q8 #21 tablet Ondansetron [Zofran Odt] 8 mg PO TID #20 tab.rapdis Referrals: ERIC MYERS MD [HONORARY] - Follow up as needed
[2018-01-12] MEDS ORDERED: METRONIDAZOLE 500 MG TABLET PO ONE (16:24)
[2018-01-12] MEDS ORDERED: CIPROFLOXACIN HCL 500 MG TABLET PO ONE (16:24)
[2018-01-12 17:23] VITALS: BP 111/61
== END 2018-01-12 17:30 | disposition home or self-care (01) ==
LOC: ER 11:11
DX: K52.9 Noninfective gastroenteritis and colitis, unspecified (principal); I10 Essential (primary) hypertension; E11.9 Type 2 diabetes mellitus without complications; J45.909 Unspecified asthma, uncomplicated; Z88.0 Allergy status to penicillin; Z88.8 Allergy status to other drugs, medicaments and biological substances; Z90.49 Acquired absence of other specified parts of digestive tract
CPT/HCPCS: 96376; 99284; 96361; 96374; 96375; 36415; 83690; 85025; 81025; 80053; 81001; 74022; J3010; J2405; J7030

== ENCOUNTER 2018-05-15 08:00 | Inpatient (IN) | payer OTHER ==
[2018-05-15] MEDS ORDERED: IPRATROPIUM/ALBUTEROL 0.5-2.5 MG/3 ML AMPUL NEB ONE ×2 (08:33→08:42)
[2018-05-15] MEDS ORDERED: METHYLPREDNISOLONE INJ 125 MG/2 ML SDV IV ONE (08:42)
[2018-05-15] MEDS ORDERED: ALBUTEROL SULFATE 0.083% NEB 2.5 MG/3 ML AMPUL NEB ONE ×3 (08:42→11:39)
[2018-05-15] MEDS ORDERED: METHYLPREDNISOLONE INJ 125 MG/2 ML SDV IM ONE (09:03)
[2018-05-15] MEDS ORDERED: KETOROLAC TROMETHAMINE 60 MG/2 ML SDV IM ONE (10:24)
--- NOTE | 2018-05-15 11:29 | RADIOLOGY REPORT (SQ) ---
EXAM DESCRIPTION: CHEST 2 VIEWS COMPLETED DATE/TIME: 05/15/2018 11:21 am REASON FOR STUDY: wheeze, cough, SOB COMPARISON: 18 EXAM PARAMETERS: NUMBER OF VIEWS: two views TECHNIQUE: Digital Frontal and Lateral radiographic views of the chest acquired. RADIATION DOSE: NA LIMITATIONS: none FINDINGS: LUNGS AND PLEURA: Multifocal patchy and airspace disease greatest within the right upper a nd left lower lobes. No significant pleural effusion. No pneumothorax pre MEDIASTINUM AND HILAR STRUCTURES: No masses or contour abnormalities. HEART AND VASCULAR STRUCTURES: Heart normal size. No evidence for failure. BONES: No acute findings. HARDWARE: None in the chest. OTHER: No other significant finding. IMPRESSION: Multifocal airspace disease, greatest within the right upper and left lower lobe, most c ompatible with multifocal pneumonia. TECHNICAL DOCUMENTATION: JOB ID: [id number] [employer]- All Rights Reserved Reading location - IP/workstation name: [email or web address]
--- NOTE | 2018-05-15 11:45 | ER Document Report ---
Entered by JAYDEN BRAGG SCRIBE 05/15/18 0901 Acting as scribe for:NORI WARD DO ED Respiratory Problem - General Chief Complaint: Shortness Of Breath Stated Complaint: SHORTNESS OF BREATH Time Seen by Provider: 05/15/18 08:31 Mode of Arrival: Ambulatory Information source: Patient Notes: Patient is a 33-year-old female with asthma, type 2 diabetes presents to the emergency department complaining of difficulty breathing onset 2 days ago worsening yesterday. Patient's associated symptoms include dry cough, sore throat, rhinorrhea and itchy and watery eyes. She states that she has tried Robitussin and albuterol with no relief. She reports normally having an asthma flare up around seasonal changes but states this episode is far worse. She reports occasionally taking Zyrtec when she would have similar symptoms. She also complains of chest pain which she describes as a tightness and stabbing that radiates to her back. She denies a history of intubations. Patient is currently prescribed Metformin. TRAVEL OUTSIDE OF THE [place] IN LAST 30 DAYS: No - Related Data Allergies/Adverse Reactions: amoxicillin [Amoxicillin] Allergy (Verified 05/15/18 08:29) benzonatate [From Tessalon Perles] Allergy (Verified 05/15/18 08:29) iloperidone [From Fanapt] Allergy (Verified 05/15/18 08:29) Penicillins Allergy (Verified 05/15/18 08:29) Past Medical History - General Information source: Patient - Social History Smoking Status: Never Smoker Chew tobacco use (# tins/day): No Frequency of alcohol use: None Drug Abuse: None Family History: Reviewed & Not Pertinent, DM, Other - Brother with blood clots, mother with hysterectomy Patient has suicidal ideation: No Patient has homicidal ideation: No - Past Medical History Cardiac Medical History: Reports: Hx Hypertension Pulmonary Medical History: Reports: Hx Asthma, Hx Sleep Apnea Endocrine Medical History: Reports: Hx Diabetes Mellitus Type 2 Renal/ Medical History: Reports: Hx Ovarian Cysts GI Medical History: Reports: Hx Gastroesophageal Reflux Disease, Hx Ulcer Psychiatric Medical History: Reports: Hx Anxiety, Hx Attention Deficit Hyperactivity Disorder, Hx Bipolar Disorder, Hx Depression - anxiety Past Surgical History: Reports: Hx Adenoidectomy, Hx Gynecologic Surgery - R ovarian cyst 2010 Uterine fibroid removal 2009 in [place]., Hx Tonsillectomy - Immunizations Hx Diphtheria, Pertussis, Tetanus Vaccination: Yes - 06/2011 Review of Systems - Review of Systems Constitutional: No symptoms reported EENT: See HPI Cardiovascular: See HPI, Chest pain Respiratory: See HPI, Cough, Short of breath Gastrointestinal: No symptoms reported Genitourinary: No symptoms reported Female Genitourinary: No symptoms reported Musculoskeletal: No symptoms reported Skin: No symptoms reported Hematologic/Lymphatic: No symptoms reported Neurological/Psychological: No symptoms reported -: Yes All other systems reviewed and negative Physical Exam - Vital signs Vitals: Temp Pulse Resp BP Pulse Ox 98.9 F 115 H 24 H 137/79 H 96 05/15/18 08:03 05/15/18 08:03 05/15/18 08:03 05/15/18 08:03 05/15/18 08:03 - Notes Notes: GENERAL: Alert, interacts well. Moderate respiratory distress. HEAD: Normocephalic, atraumatic. EYES: Pupils equal, round, and reactive to light. Extraocular movements intact. ENT: Oral mucosa moist, tongue midline. NECK: Full range of motion. Supple. Trachea midline. LUNGS: Tight, tachypneic. Diffuse mild inspiratory and expiratory wheezing. HEART: Mildly tachycardic, regular rhythm. No murmurs, gallops, or rubs. ABDOMEN: Soft, morbidly obese, no guarding, rigidity, or rebound. Non-tender. Non-distended. Bowel sounds present in all 4 quadrants. EXTREMITIES: Moves all 4 extremities spontaneously. No edema, radial and dorsalis pedis pulses 2/4 bilaterally. No cyanosis. NEUROLOGICAL: Alert and oriented x3. Normal speech. PSYCH: Normal affect, normal mood. SKIN: Warm, dry, normal turgor. No rashes or lesions noted. Course - Re-evaluation Re-evalutation: 05/15/18 11:36 Chest x-ray shows multifocal airspace disease greatest within the right and left upper lobe most compatible with multifocal pneumonia. Given her comorbidities and significant risk for complication patient likely needs inpatient treatment for her multifocal pneumonia. Flu swab will be performed and blood work will be ordered. 05/15/18 11:[address] Jiang who instructed me to speak with BOGDAN Oseguera, John Aleman accepts the patient to his service in admission status. Agrees t hat blood work is very unlikely to change the level of care that this patient needs. Patient will therefore be assigned to a telemetry care bed in admission status. Rocephin and azithromycin has been started. Patient has had a repeat breathing treatment ordered as well. - Vital Signs Vital signs: Temp Pulse Resp BP Pulse Ox 98.9 F 115 H 22 H 128/88 H 94 05/15/18 08:03 05/15/18 08:03 05/15/18 09:01 05/15/18 09:00 05/15/18 09:01 - EKG Interpretation by Me Additional EKG results interpreted by me: 05/15/18 11:44 EKG shows sinus tachycardia at a rate of 105, normal axis, normal intervals, no ST segment elevations or depressions, isolated T wave inversions in lead III which are nonspecific per my interpretation. 05/15/18 11:57 Repeat EKG shows sinus tachycardia at a rate of 112, normal axis, normal intervals, no ST segment elevations or depressions, no T wave inversions, T wave inversions in lead III have resolved per my interpretation. Critical Care Note - Critical Care Note Total time excluding time spent on procedures (mins): 50 Discharge - Discharge Clinical Impression: Multifocal pneumonia Acute asthma exacerbation Qualifiers: Asthma severity: moderate Asthma persistence: persistent Qualified Code(s): J45.41 - Moderate persistent asthma with (acute) exacerbation Condition: Fair Disposition: ADMITTED OBSERVATION Admitting Provider: Hospitalist - [facility] Admitted: Telemetry I personally performed the services described in the documentation, reviewed and edited the documentation which was dictated to the scribe in my presence, and it accurately records my words and actions.
[2018-05-15] MEDS ORDERED: AZITHROMYCIN 500 MG in DEXTROSE 5%-WATER 250 ML IV SCH (12:00)
[2018-05-15] MEDS ORDERED: ACETAMINOPHEN 325 MG TABLET PO PRN (12:12)
[2018-05-15] MEDS ORDERED: ALBUTEROL SULFATE 0.083% NEB 2.5 MG/3 ML AMPUL NEB PRN (12:12)
[2018-05-15] MEDS ORDERED: DEXTROSE 40% GEL 15 GM TUBE PO PRN ×2 (12:18)
[2018-05-15] MEDS ORDERED: GLUCAGON,HUMAN RECOMB 1 MG INJ IM PRN (12:18)
[2018-05-15] MEDS ORDERED: DEXTROSE 50%-WATER 25 GM/50 ML DISP.SYRIN IV PRN ×2 (12:18)
[2018-05-15] MEDS ORDERED: (PENDING PHARMACY ID) (Oxycodone Hcl/Acetaminophen [Oxycodone-Acetaminophen 10-325] 1 TAB) PO PRN (12:19)
[2018-05-15] MEDS: CEFTRIAXONE 1 GM/D5W RTU 1 GM/50 ML RTUPB IV SCH (12:35)
[2018-05-15 12:37] LABS: HEMATOCRIT 33.5 % (36.0-47.0); MEAN CORPUSCULAR HEMOGLOBIN 29.4 pg (27.0-33.4); MEAN CORPUSCULAR VOLUME 89 fl (80-97); PLATELET COUNT 360 10^3/uL (150-450); RED BLOOD COUNT 3.75 10^6/uL (3.72-5.28); RED CELL DISTRIBUTION WIDTH 15.2 % (11.5-14.0); VENOUS BLOOD BASE EXCESS 0.6 mmol/L; VENOUS BLOOD HCO3 26.6 mmol/L (20-32); VENOUS BLOOD PCO2 47.6 mmHg (35-63); VENOUS BLOOD PH 7.37 (7.30-7.42); WHITE BLOOD COUNT 15.1 10^3/uL (4.0-10.5)
[2018-05-15 12:41] LABS: INTERNATIONAL RATION (INR) 1.04; PROTHROMBIN TIME 14.2 SEC (11.4-15.4)
[2018-05-15 12:57] LABS: ALANINE AMINOTRANSFERASE 37 U/L (9-52); ALKALINE PHOSPHATASE 147 U/L (38-126); ANION GAP 10 (5-19); ASPARTATE AMINO TRANSFERASE 38 U/L (14-36); BILIRUBIN,DIRECT 0.3 mg/dL (0.0-0.4); BILIRUBIN,TOTAL 0.5 mg/dL (0.2-1.3); BLOOD UREA NITROGEN 8 mg/dL (7-20); CARBON DIOXIDE 26 mmol/L (22-30); CHLORIDE 102 mmol/L (98-107); GLUCOSE 183 mg/dL (75-110); POTASSIUM 4.3 mmol/L (3.6-5.0); SODIUM 138.2 mmol/L (137-145); TOTAL PROTEIN 7.4 g/dL (6.3-8.2)
[2018-05-15 13:05] LABS: ABSOLUTE LYMPHOCYTES# (MANUAL) 0.5 10^3/uL (0.5-4.7); ABSOLUTE MONOCYTES # (MANUAL) 0.2 10^3/uL (0.1-1.4); ABSOLUTE NEUTROPHILS# (MANUAL) 14.5 10^3/uL (1.7-8.2); BAND NEUTROPHILS % (MANUAL) 1 % (3-5); BASOPHILS % (MANUAL) 0 % (0-2); EOSINOPHILS % (MANUAL) 0 % (0-6); LYMPHOCYTES % (MANUAL) 2 % (13-45); MONOCYTES % (MANUAL) 1 % (3-13); NUCLEATED RED BLOOD CELLS 2 /100 WBC (0); SEGMENTED NEUTROPHILS % (MAN) 95 % (42-78); TOTAL CELLS COUNTED 100
[2018-05-15 13:07] LABS: ANISOCYTOSIS SLIGHT; PLATELET COMMENT ADEQUATE; POLYCHROMASIA 1+; TOXIC GRANULATION SLIGHT; TOXIC VACUOLATION PRESENT
[2018-05-15] MEDS: NORMAL SALINE 1000 ML 1,000 ML IV PRN ×2 (13:27→15:18)
[2018-05-15 13:40] LABS: APPEARANCE,URINE CLOUDY; BILIRUBIN,URINE NEGATIVE (NEGATIVE); COLOR,URINE YELLOW; GLUCOSE, URINE NEGATIVE (NEGATIVE); KETONES,URINE NEGATIVE (NEGATIVE); LEUKOCYTE ESTERASE,URINE SMALL (NEGATIVE); NITRITE,URINE NEGATIVE (NEGATIVE); PROTEIN,URINE NEGATIVE (NEGATIVE); URINE SPECIFIC GRAVITY 1.019; UROBILINOGEN,URINE NEGATIVE mg/dL (<2.0)
[2018-05-15 14:03] LABS: A TYPE INFLUENZA AG NEGATIVE (NEGATIVE); B INFLUENZA AG NEGATIVE (NEGATIVE)
[2018-05-15] MEDS: GABAPENTIN 400 MG CAPSULE PO SCH ×3 (14:28→17:33)
[2018-05-15] MEDS: AZITHROMYCIN 500 MG in DEXTROSE 5%-WATER 250 ML IV SCH (14:34)
[2018-05-15] MEDS: OXYCODONE HCL IR 5 MG TABLET PO PRN (16:41)
[2018-05-15] MEDS: OXYCODONE-ACETAMINOPHEN 5-325 MG TABLET PO PRN (16:41)
[2018-05-15] MEDS: METFORMIN HCL 500 MG TABLET PO SCH (16:41)
[2018-05-15] MEDS ORDERED: (PENDING PHARMACY ID) (Hydroxyzine Hcl [Hydroxyzine Hcl] 50 MG) PO PRN (16:47)
--- NOTE | 2018-05-15 16:47 | PDOC H&P ---
History of Present Illness Admission Date/PCP: 05/15/18 11:50 Patient complains of: Shortness of breath and cough History of Present Illness: SARAHI ST is a 33 year old female presents to the ER with a 3-day history of worsening shortness of breath. States she developed a cough she has had some fever and chills. And she is been getting worse over the last couple of days she denies anyone else in the house being sick recently. Been using her albuterol several times a night for the past 2 days. She also states to having a decreased appetite. Is not check her blood sugars on a regular basis. But she has been urinating more than usual. Upon evaluation in the ER she was found to have bilateral pneumonia of the apices. She has not required oxygen at this time but she has been tachypneic and tachycardic. Past Medical History Cardiac Medical History: Reports: Hypertension Denies: Coronary Artery Disease, Myocardial Infarction Pulmonary Medical History: Reports: Asthma, Sleep Apnea Denies: Bronchitis, Chronic Obstructive Pulmonary Disease (COPD), Pneumonia Neurological Medical History: Denies: Seizures Endocrine Medical History: Reports: Diabetes Mellitus Type 2 Denies: Diabetes Mellitus Type 1 GI Medical History: Reports: Gastroesophageal Reflux Disease Musculoskeltal Medical History: Denies: Arthritis Psychiatric Medical History: Reports: Attention Deficit Hyperactivity Disorder, Bipolar Disorder, Depression - anxiety Hematology: Reports: Anemia Past Surgical History Past Surgical History: Reports: Adenoidectomy, Tonsillectomy Social History Smoking Status: Former Smoker Number of Years Smokin Last Time Smoked: 02/28/2008 Frequency of Alcohol Use: None Drugs: None Hx Prescription Drug Abuse: No Family History Family History: DM, Hypertension, Other - Brother with blood clots, mother with hysterectomy Parental Family History Reviewed: Yes Children Family History Reviewed: Yes Sibling(s) Family History Reviewed.: Yes Medication/Allergy Home Medications: Fluticasone Propionate [Flonase Nasal [place] 50 Mcg/[place] 16 gm] 2 sprays NASL Q1 2 PRN 01/07/17 Albuterol Sulfate [Proair HFA] 2 puff IH Q4 PRN 06/03/17 Hydroxyzine HCl 50 mg PO Q8HP PRN #10 tablet 06/03/17 Oxycodone HCl/Acetaminophen [Oxycodone-Acetaminophen 10-325] 1 tab PO Q6HP PRN 06/03/17 Omeprazole Magnesium [Prilosec Otc] 20 mg PO BID #40 tablet. 06/29/17 Benztropine Mesylate [Benztropine Mesylate 0.5 mg Tablet] 0.5 mg PO Q12 05/15/18 Budesonide/Formoterol Fumarate [Symbicort Hfa 80-4.5 Mcg Inhaler 6.9 gm] 2 puff IH Q12 05/15/18 Ferrous Sulfate [Iron] 325 mg PO DAILY 05/15/18 Gabapentin [Neurontin 300 mg Capsule] 600 mg PO Q8 05/15/18 Metformin HCl [Metformin HCl ER] 500 mg PO DAILY 05/15/18 Prazosin HCl [Minipress] 1 mg PO QHS 05/15/18 Sucralfate [Carafate 1 gm Tablet] 1 gm PO ACHS PRN 05/15/18 Venlafaxine HCl [Venlafaxine Hcl Er] 37.5 mg PO DAILY 05/15/18 Allergies/Adverse Reactions: amoxicillin [Amoxicillin] Allergy (Verified 05/15/18 08:29) benzonatate [From Tessalon Perles] Allergy (Verified 05/15/18 08:29) iloperidone [From Fanapt] Allergy (Verified 05/15/18 08:29) Penicillins Allergy (Verified 05/15/18 08:29) Review of Systems Constitutional: PRESENT: chills, fever(s). ABSENT: weight loss Nose, Mouth, and Throat: ABSENT: sore throat Cardiovascular: PRESENT: dyspnea on exertion. ABSENT: chest pain, edema, orthropnea, palpitations Respiratory: PRESENT: cough, dyspnea Gastrointestinal: ABSENT: constipation Genitourinary: ABSENT: dysuria Neurological: ABSENT: focal weakness Allergic/Immunologic: PRESENT: seasonal rhinorrhea Physical Exam Vital Signs: Temp Pulse Resp BP Pulse Ox 98.9 F 115 H 19 137/80 H 96 05/15/18 08:03 05/15/18 08:03 05/15/18 16:01 05/15/18 16:00 05/15/18 16:01 Intake & Output 05/14/18 05/15/18 05/16/18 06:59 06:59 06:59 Intake Total 1300 Balance 1300 Weight 154.675 kg General appearance: PRESENT: cooperative, mild distress, morbidly obese Eye exam: PRESENT: PERRLA. ABSENT: scleral icterus Ear exam: PRESENT: TM's normal bilaterally Mouth exam: PRESENT: moist, neck supple Neck exam: ABSENT: full ROM, JVD, lymphadenopathy, tenderness, thyromegaly, tracheal deviation Respiratory exam: PRESENT: accessory muscle use, rhonchi, wheezes Cardiovascular exam: PRESENT: tachycardia. ABSENT: gallop, rubs GI/Abdominal exam: PRESENT: normal bowel sounds, soft. ABSENT: ascites, tenderness Extremities exam: ABSENT: joint swelling, pedal edema Musculoskeletal exam: PRESENT: full ROM Neurological exam: PRESENT: alert, oriented to person, oriented to place, oriented to time, oriented to situation Skin exam: PRESENT: dry, warm Results Laboratory Results: 05/15/18 12:05 05/15/18 12:05 05/15/18 05/15/18 05/15/18 12:05 12:05 12:05 WBC 15.1 H RBC 3.75 Hgb 11.0 L Hct 33.5 L MCV 89 MCH 29.4 MCHC 33.0 RDW 15.2 H Plt Count 360 Seg Neutrophils % Not Reportable Lymphocytes % Not Reportable Monocytes % Not Reportable Eosinophils % Not Reportable Basophils % Not Reportable Absolute Neutrophils Not Reportable Absolute Lymphocytes Not Reportable Absolute Monocytes Not Reportable Absolute Eosinophils Not Reportable Absolute Basophils Not Reportable VBG pH VBG pCO2 VBG HCO3 VBG Base Excess Sodium 138.2 Potassium 4.3 Chloride 102 Carbon Dioxide 26 Anion Gap 10 BUN 8 Creatinine 0.75 Est GFR ( Amer) > 60 Est GFR (Non-Af Amer) > 60 Glucose 183 H Lactic Acid 2.4 H Calcium 9.0 Total Bilirubin 0.5 AST 38 H ALT 37 Alkaline Phosphatase 147 H Total Protein 7.4 Albumin 4.0 Serum HCG, Qual Urine Color Urine Appearance Urine pH Ur Specific [place] Urine Protein Urine Glucose (UA) Urine Ketones Urine Blood Urine Nitrite Ur Leukocyte Esterase Urine WBC (Auto) Urine RBC (Auto) 05/15/18 05/15/18 05/15/18 12:05 12:05 13:13 WBC RBC Hgb Hct MCV MCH MCHC RDW Plt Count Seg Neutrophils % Lymphocytes % Monocytes % Eosinophils % Basophils % Absolute Neutrophils Absolute Lymphocytes Absolute Monocytes Absolute Eosinophils Absolute Basophils VBG pH 7.37 VBG pCO2 47.6 VBG HCO3 26.6 VBG Base Excess 0.6 Sodium Potassium Chloride Carbon Dioxide Anion Gap BUN Creatinine Est GFR ( Amer) Est GFR (Non-Af Amer) Glucose Lactic Acid Calcium Total Bilirubin AST ALT Alkaline Phosphatase Total Protein Albumin Serum HCG, Qual NEGATIVE Urine Color YELLOW Urine Appearance CLOUDY Urine pH 7.0 Ur Specific [place] 1.019 Urine Protein NEGATIVE Urine Glucose (UA) NEGATIVE Urine Ketones NEGATIVE Urine Blood SMALL H Urine Nitrite NEGATIVE Ur Leukocyte Esterase SMALL H Urine WBC (Auto) 6 Urine RBC (Auto) 10 Impressions: Chest X-Ray 05/15/18 08:42 IMPRESSION: Multifocal airspace disease, greatest within the right upper and left lower lobe, most compatible with multifocal pneumonia. Assessment and Plan - Diagnosis (1) Multifocal pneumonia Is this a current diagnosis for this admission?: Yes Plan: 05/15/18 16:44 Further outpatient observation. Start on antibiotics. Continued scheduled ne bulizer treatments. Monitor closely. (2) Morbid obesity Is this a current diagnosis for this admission?: Yes (3) Anxiety Is this a current diagnosis for this admission?: Yes Plan: 05/15/18 16:44 Continue patient's home medications. (4) Sleep apnea Qualifiers: Sleep apnea type: obstructive Qualified Code(s): G47.33 - Obstructive sleep apnea (adult) (pediatric) Is this a current diagnosis for this admission?: Yes Plan: 05/15/18 16:43 Patient on BiPAP at home will continue while she is admitted. (5) Acute asthma exacerbation Qualifiers: Asthma severity: moderate Asthma persistence: persistent Qualified Code(s): J45.41 - Moderate persistent asthma with (acute) exacerbation Is this a current diagnosis for this admission?: Yes Plan: 05/15/18 16:45 Schedule nebs started on antibiotics. Hold steroids for now. (6) Diabetes type 2, controlled Qualifiers: Diabetes mellitus long term care administrator insulin use: with long term care administrator use Diabetes mellitus complication status: without complication Qualified Code(s): E11.9 - Type 2 diabetes mellitus without complications; Z79.4 - bed bug exterminator (current) use of insulin Is this a current diagnosis for this admission?: Yes Plan: 05/15/18 16:45 We will start patient on sliding scale insulin fingerstick blood glucose. (7) Sepsis Is this a current diagnosis for this admission?: Yes Plan: 05/15/18 16:46 She with an elevated white blood cell count elevated heart rate and elevated lactic acid in the ER. She is been given 2 L of IV fluids. Heart rate is improved continue to treat underlying pneumonia and follow. - Time Time Spent with patient: 35 or more minutes Anticipated discharge: Home Within: within 48 hours
--- NOTE | 2018-05-15 17:12 | EKG REPORT ---
SEVERITY:- OTHERWISE NORMAL ECG - SINUS TACHYCARDIA : Confirmed by: Luzmaria Lindsey 15-May-2018 17:12:28
--- NOTE | 2018-05-15 17:12 | EKG REPORT ---
SEVERITY:- OTHERWISE NORMAL ECG - SINUS TACHYCARDIA : Confirmed by: Luzmaria Lindsey 15-May-2018 17:12:19
[2018-05-15] MEDS: HYDROXYZINE PAMOATE 50 MG CAPSULE PO PRN (17:37)
[2018-05-15] MEDS: INSULIN REG, HUMAN 100 UNIT/ML 3 ML VIAL (PYX) SUBCUT SCH ×2 (17:42→21:53)
[2018-05-15] MEDS ORDERED: BUDESONIDE IH SCH (18:00)
[2018-05-15] MEDS ORDERED: [UNRECOGNIZED DRUG - OTHER] IH SCH (18:00)
[2018-05-15] MEDS ORDERED: FORMOTEROL FUMARATE IH SCH (18:00)
[2018-05-15] MEDS ORDERED: NORMAL SALINE 1000 ML 2,000 ML IV ONE (18:15)
[2018-05-15] MEDS: BENZTROPINE MESYLATE 1 MG TABLET PO SCH (21:47)
[2018-05-15] MEDS: GUAIFENESIN SYRP 200 MG/10 ML UDC PO PRN (21:47)
[2018-05-15] MEDS ORDERED: (PENDING PHARMACY ID) (Benztropine Mesylate [Benztropine Mesylate 0.5 Mg Tablet] 0.5 MG) PO SCH (22:00)
[2018-05-16] MEDS: OXYCODONE-ACETAMINOPHEN 5-325 MG TABLET PO PRN ×3 (01:09→18:18)
[2018-05-16] MEDS: OXYCODONE HCL IR 5 MG TABLET PO PRN ×3 (01:10→18:19)
[2018-05-16] MEDS: GUAIFENESIN SYRP 200 MG/10 ML UDC PO PRN ×4 (03:04→23:45)
[2018-05-16 07:18] LABS: ABSOLUTE BASOPHILS # (AUTO) 0.1 10^3/uL (0.0-0.2); ABSOLUTE LYMPHOCYTES (AUTO) 1.3 10^3/uL (0.5-4.7); ABSOLUTE MONOCYTES (AUTO) 0.4 10^3/uL (0.1-1.4); ABSOLUTE NEUT (AUTO) 12.3 10^3/uL (1.7-8.2); BASOPHILS % (AUTO) 0.6 % (0-2); HEMATOCRIT 37.1 % (36.0-47.0); HEMOGLOBIN 11.9 g/dL (12.0-15.5); LYMPHOCYTES % (AUTO) 9.5 % (13-45); MEAN CORPUSCULAR HEMOGLOBIN 28.8 pg (27.0-33.4); MEAN CORPUSCULAR HGB CONC 32.2 g/dL (32.0-36.0); MEAN CORPUSCULAR VOLUME 89 fl (80-97); PLATELET COUNT 373 10^3/uL (150-450); RED BLOOD COUNT 4.14 10^6/uL (3.72-5.28); RED CELL DISTRIBUTION WIDTH 15.5 % (11.5-14.0); SEGMENTED NEUTROPHILS % (AUTO) 86.9 % (42-78); TOTAL CELLS COUNTED % (AUTO) 100 %; WHITE BLOOD COUNT 14.1 10^3/uL (4.0-10.5)
[2018-05-16] MEDS: INSULIN REG, HUMAN 100 UNIT/ML 3 ML VIAL (PYX) SUBCUT SCH ×4 (07:21→22:01)
[2018-05-16 07:30] LABS: ANION GAP 11 (5-19); BLOOD UREA NITROGEN 13 mg/dL (7-20); CALCIUM 9.1 mg/dL (8.4-10.2); CARBON DIOXIDE 26 mmol/L (22-30); CHLORIDE 105 mmol/L (98-107); GLUCOSE 149 mg/dL (75-110); POTASSIUM 4.8 mmol/L (3.6-5.0); SODIUM 142.3 mmol/L (137-145)
[2018-05-16] MEDS: METFORMIN HCL 500 MG TABLET PO SCH ×2 (08:35→16:30)
[2018-05-16] MEDS ORDERED: (PENDING PHARMACY ID) (Metformin Hcl [Metformin Hcl Er] 500 MG) PO SCH (10:00)
[2018-05-16] MEDS ORDERED: LEVOFLOXACIN 750 MG/D5W RTU 750 MG/150 ML RTUPB IV SCH (10:00)
[2018-05-16] MEDS: ENOXAPARIN SODIUM INJ 40 MG/0.4 ML DISP.SYRIN SUBCUT SCH (10:13)
[2018-05-16] MEDS: FLUTICASONE/VILANTEROL 200-25 MCG/DOSE IH SCH (10:14)
[2018-05-16] MEDS: GABAPENTIN 400 MG CAPSULE PO SCH ×3 (10:14→18:18)
[2018-05-16] MEDS: BENZTROPINE MESYLATE 1 MG TABLET PO SCH ×2 (10:14→22:00)
[2018-05-16] MEDS: PANTOPRAZOLE SODIUM 20 MG TABLET.DR PO SCH (10:15)
[2018-05-16] MEDS: HYDROXYZINE PAMOATE 50 MG CAPSULE PO PRN ×2 (10:16→18:18)
[2018-05-16] MEDS: CEFTRIAXONE 1 GM/D5W RTU 1 GM/50 ML RTUPB IV SCH (10:31)
[2018-05-16] MEDS: AZITHROMYCIN 500 MG in DEXTROSE 5%-WATER 250 ML IV SCH (10:32)
--- NOTE | 2018-05-16 15:16 | PDOC PROGRESS REPORT ---
Subjective Progress Note for:: 05/16/18 Subjective:: Patient states she is doing well. She has been afebrile through the night. She was compliant with her BiPAP last night. Still has shortness of breath with minimal exertion. Still has a nonproductive cough. Reason For Visit: PNEUMONIA Physical Exam Vital Signs: Temp Pulse Resp BP Pulse Ox 98.3 F 117 H 25 H 126/63 H 98 05/16/18 11:55 05/16/18 11:55 05/16/18 11:55 05/16/18 11:55 05/16/18 11:55 Intake & Output 05/15/18 05/16/18 05/17/18 06:59 06:59 06:59 Intake Total 4482 1858 Output Total 800 Balance 3682 1858 Weight 154.66 kg General appearance: PRESENT: cooperative, mild distress Mouth exam: PRESENT: moist, neck supple Neck exam: PRESENT: full ROM. ABSENT: JVD, lymphadenopathy, tenderness, tracheal deviation Respiratory exam: PRESENT: accessory muscle use, wheezes Cardiovascular exam: PRESENT: tachycardia. ABSENT: gallop, rubs GI/Abdominal exam: PRESENT: normal bowel sounds, soft. ABSENT: tenderness Extremities exam: ABSENT: pedal edema Musculoskeletal exam: PRESENT: full ROM Neurological exam: PRESENT: alert, oriented to person, oriented to place, oriented to time, oriented to situation Skin exam: PRESENT: dry, normal color, warm Results Laboratory Results: 05/16/18 06:00 05/16/18 06:00 05/15/18 05/16/18 05/16/18 16:20 06:00 06:00 WBC 14.1 H RBC 4.14 Hgb 11.9 L Hct 37.1 MCV 89 MCH 28.8 MCHC 32.2 RDW 15.5 H Plt Count 373 Seg Neutrophils % 86.9 H Lymphocytes % 9.5 L Monocytes % 3.0 Eosinophils % 0.0 Basophils % 0.6 Absolute Neutrophils 12.3 H Absolute Lymphocytes 1.3 Absolute Monocytes 0.4 Absolute Eosinophils 0.0 Absolute Basophils 0.1 Sodium 142.3 Potassium 4.8 Chloride 105 Carbon Dioxide 26 Anion Gap 11 BUN 13 Creatinine 0.67 Est GFR ( Amer) > 60 Est GFR (Non-Af Amer) > 60 Glucose 149 H Lactic Acid 4.8 H Calcium 9.1 05/15/18 13:13 Clean Catch Midstream Urine Culture - Final Mixed Urogenital Luna Impressions: Chest X-Ray 05/15/18 08:42 IMPRESSION: Multifocal airspace disease, greatest within the right upper and left lower lobe, most compatible with multifocal pneumonia. Assessment and Plan - Diagnosis (1) Multifocal pneumonia Is this a current diagnosis for this admission?: Yes Plan: Continue current antibiotics. Scheduled nebulizer treatments. Also start on oral prednisone. Monitor closely. Still with significant work of breathing. Patient gets short of breath just with ambulation to the bathroom in the room. Do not feel she is ready for discharge at this time. (2) Morbid obesity Is this a current diagnosis for this admission?: Yes Plan: Discussed diet and weight loss with the patient. (3) Anxiety Is this a current diagnosis for this admission?: Yes Plan: Continue patient's home medications. (4) Sleep apnea Qualifiers: Sleep apnea type: obstructive Qualified Code(s): G47.33 - Obstructive sleep apnea (adult) (pediatric) Is this a current diagnosis for this admission?: Yes Plan: Patient on BiPAP at home will continue while she is admitted. (5) Acute asthma exacerbation Qualifiers: Asthma severity: moderate Asthma persistence: persistent Qualified Code(s): J45.41 - Moderate persistent asthma with (acute) exacerbation Is this a current diagnosis for this admission?: Yes Plan: Schedule nebs started on antibiotics. Hold steroids for now. (6) Diabetes type 2, controlled Qualifiers: Diabetes mellitus termite control technician insulin use: with longterm use Diabetes mellitus complication status: without complication Qualified Code(s): E11.9 - Type 2 diabetes mellitus without complications; Z79.4 - intermediate frame tender (current) use of insulin Is this a current diagnosis for this admission?: Yes Plan: We will start patient on sliding scale insulin fingerstick blood glucose. (7) Sepsis Is this a current diagnosis for this admission?: Yes Plan: Sepsis with an elevated white blood cell count elevated heart rate and elevated lactic acid in the ER. She is been given 2 L of IV fluids. Heart rate is improved continue to treat underlying pneumonia and follow. - Time Time Spent with patient: 35 or more minutes Medications reviewed and adjusted accordingly: Yes Anticipated discharge: Home
[2018-05-16] MEDS: ALBUTEROL SULFATE 0.083% NEB 2.5 MG/3 ML AMPUL NEB SCH ×3 (16:27→23:53)
[2018-05-16] MEDS: PREDNISONE 20 MG TABLET PO SCH (16:30)
[2018-05-17] MEDS: HYDROXYZINE PAMOATE 50 MG CAPSULE PO PRN ×3 (02:24→18:27)
[2018-05-17] MEDS: OXYCODONE HCL IR 5 MG TABLET PO PRN ×3 (02:25→18:28)
[2018-05-17] MEDS: OXYCODONE-ACETAMINOPHEN 5-325 MG TABLET PO PRN ×3 (02:25→18:28)
[2018-05-17] MEDS: ALBUTEROL SULFATE 0.083% NEB 2.5 MG/3 ML AMPUL NEB SCH ×5 (03:57→20:44)
[2018-05-17] MEDS: INSULIN REG, HUMAN 100 UNIT/ML 3 ML VIAL (PYX) SUBCUT SCH ×4 (07:29→22:06)
[2018-05-17] MEDS: METFORMIN HCL 500 MG TABLET PO SCH ×2 (09:32→16:48)
[2018-05-17] MEDS: BENZTROPINE MESYLATE 1 MG TABLET PO SCH ×2 (09:33→22:06)
[2018-05-17] MEDS: FLUTICASONE/VILANTEROL 200-25 MCG/DOSE IH SCH (09:33)
[2018-05-17] MEDS: PREDNISONE 20 MG TABLET PO SCH (09:33)
[2018-05-17] MEDS: ENOXAPARIN SODIUM INJ 40 MG/0.4 ML DISP.SYRIN SUBCUT SCH (09:34)
[2018-05-17] MEDS: LEVOFLOXACIN 750 MG TABLET PO SCH (09:34)
[2018-05-17] MEDS: GABAPENTIN 400 MG CAPSULE PO SCH ×3 (09:35→18:28)
[2018-05-17] MEDS: GUAIFENESIN SYRP 200 MG/10 ML UDC PO PRN ×2 (09:36→18:27)
[2018-05-17] MEDS: PANTOPRAZOLE SODIUM 20 MG TABLET.DR PO SCH (10:27)
--- NOTE | 2018-05-17 18:00 | PDOC PROGRESS REPORT ---
Subjective Progress Note for:: 05/17/18 Subjective:: No adverse events overnight. She was laying in bed on her right side playing on her phone when I came into the room and looks very comfortable, but she immediately complained of "pain everywhere." I told her that with her breathing we would be afraid of increasing the likelihood of CO2 retention and possible mechanical ventilation if we increased her pain medication. She was wheezing but she has not tachypneic. Reason For Visit: PNEUMONIA Physical Exam Vital Signs: Temp Pulse Resp BP Pulse Ox 99.2 F 110 H 20 141/81 H 78 L 05/17/18 11:11 05/17/18 14:00 05/17/18 12:40 05/17/18 11:11 05/17/18 12:40 Intake & Output 05/16/18 05/17/18 05/18/18 06:59 06:59 06:59 Intake Total 4482 3394 820 Output Total 800 Balance 3682 3394 820 Weight 154.66 kg 158.8 kg General appearance: PRESENT: cooperative, mild distress Mouth exam: PRESENT: moist, neck supple Neck exam: PRESENT: full ROM. ABSENT: JVD, lymphadenopathy, tenderness, tracheal deviation Respiratory exam: PRESENT: Normal inspiratory effort, wheezes. Absent: Tachypnea, accessory muscle use, rhonchi, Rales Cardiovascular exam: PRESENT: tachycardia. ABSENT: gallop, rubs GI/Abdominal exam: PRESENT: normal bowel sounds, soft. ABSENT: tenderness Extremities exam: ABSENT: pedal edema Musculoskeletal exam: PRESENT: full ROM Neurological exam: PRESENT: alert, oriented to person, oriented to place, oriented to time, oriented to situation Skin exam: PRESENT: dry, normal color, warm Results Laboratory Results: 05/16/18 06:00 05/16/18 06:00 Impressions: Chest X-Ray 05/15/18 08:42 IMPRESSION: Multifocal airspace disease, greatest within the right upper and left lower lobe, most compatible with multifocal pneumonia. Assessment and Plan - Diagnosis (1) Acute asthma exacerbation Qualifiers: Asthma severity: moderate Asthma persistence: persistent Qualified Code(s): J45.41 - Moderate persistent asthma with (acute) exacerbation Is this a current diagnosis for this admission?: Yes Plan: Stable on oxygen. Continue as needed nebulizer treatments. She is been started on prednisone. (2) Morbid obesity Is this a current diagnosis for this admission?: Yes Plan: Strongly encouraged lifestyle modification (3) Multifocal pneumonia Is this a current diagnosis for this admission?: Yes Plan: He continues on antibiotics. Cultures are pending. (4) Sleep apnea Qualifiers: Sleep apnea type: obstructive Qualified Code(s): G47.33 - Obstructive sleep apnea (adult) (pediatric) Is this a current diagnosis for this admission?: Yes Plan: She continues on BiPAP at night. - Time Time Spent with patient: 25-34 minutes
[2018-05-18] MEDS: ALBUTEROL SULFATE 0.083% NEB 2.5 MG/3 ML AMPUL NEB SCH ×6 (00:28→20:30)
[2018-05-18] MEDS: OXYCODONE HCL IR 5 MG TABLET PO PRN ×3 (02:40→21:12)
[2018-05-18] MEDS: GUAIFENESIN SYRP 200 MG/10 ML UDC PO PRN ×2 (02:40→21:10)
[2018-05-18] MEDS: HYDROXYZINE PAMOATE 50 MG CAPSULE PO PRN (02:40)
[2018-05-18] MEDS: OXYCODONE-ACETAMINOPHEN 5-325 MG TABLET PO PRN ×3 (02:40→21:12)
[2018-05-18] MEDS: INSULIN REG, HUMAN 100 UNIT/ML 3 ML VIAL (PYX) SUBCUT SCH ×4 (07:36→21:09)
[2018-05-18] MEDS: LEVOFLOXACIN 750 MG TABLET PO SCH (13:09)
[2018-05-18] MEDS: GABAPENTIN 400 MG CAPSULE PO SCH ×3 (13:09→17:12)
[2018-05-18] MEDS: PREDNISONE 20 MG TABLET PO SCH (13:10)
[2018-05-18] MEDS: METFORMIN HCL 500 MG TABLET PO SCH ×2 (13:10→17:11)
[2018-05-18] MEDS: BENZTROPINE MESYLATE 1 MG TABLET PO SCH ×2 (13:11→21:08)
[2018-05-18] MEDS: FLUTICASONE/VILANTEROL 200-25 MCG/DOSE IH SCH (13:12)
[2018-05-18] MEDS: PANTOPRAZOLE SODIUM 20 MG TABLET.DR PO SCH (13:13)
[2018-05-18] MEDS: ENOXAPARIN SODIUM INJ 40 MG/0.4 ML DISP.SYRIN SUBCUT SCH (13:16)
--- NOTE | 2018-05-18 17:55 | PDOC PROGRESS REPORT ---
Subjective Progress Note for:: 05/18/18 Subjective:: No adverse events overnight. No new complaints. Still having some subjective shortness of breath, but she was asleep resting comfortably whenever I came into the room. Oxygen saturations have been in the mid 90s. She has not really tried to get out of bed and get around very much. Was resistant to the idea of getting up or spending some time sitting in the chair today. Reason For Visit: PNEUMONIA Physical Exam Vital Signs: Temp Pulse Resp BP Pulse Ox 99.3 F 101 H 24 H 141/82 H 96 05/18/18 11:32 05/18/18 15:42 05/18/18 15:42 05/18/18 11:32 05/18/18 15:42 Intake & Output 05/17/18 05/18/18 05/19/18 06:59 06:59 06:59 Intake Total 3394 1664 938 Balance 3394 1664 938 Weight 158.8 kg 169 kg 169 kg General appearance: PRESENT: cooperative, no acute distress Mouth exam: PRESENT: moist, neck supple Neck exam: PRESENT: full ROM. ABSENT: JVD, lymphadenopathy, tenderness, tracheal deviation Respiratory exam: PRESENT: Normal inspiratory effort, clear to auscultation bilaterally. Absent: Tachypnea, accessory muscle use, rhonchi, Rales, wheezes Cardiovascular exam: PRESENT: tachycardia. ABSENT: gallop, rubs GI/Abdominal exam: PRESENT: normal bowel sounds, soft. ABSENT: tenderness Extremities exam: ABSENT: pedal edema Musculoskeletal exam: PRESENT: full ROM Neurological exam: PRESENT: alert, oriented to person, oriented to place, oriented to time, oriented to situation Skin exam: PRESENT: dry, normal color, warm Results Laboratory Results: 05/16/18 06:00 05/16/18 06:00 Impressions: Chest X-Ray 05/15/18 08:42 IMPRESSION: Multifocal airspace disease, greatest within the right upper and left lower lobe, most compatible with multifocal pneumonia. Assessment and Plan - Diagnosis (1) Acute asthma exacerbation Qualifiers: Asthma severity: moderate Asthma persistence: persistent Qualified Code(s): J45.41 - Moderate persistent asthma with (acute) exacerbation Is this a current diagnosis for this admission?: Yes Plan: Improving on prednisone and antibiotics. She is not wheezing anymore. (2) Morbid obesity Is this a current diagnosis for this admission?: Yes Plan: Strongly encouraged lifestyle modification. We are encouraging her to get up and ambulate, but she is resistant to the idea (3) Multifocal pneumonia Is this a current diagnosis for this admission?: Yes Plan: She continues on antibiotics. Cultures are pending but are thus far negative. (4) Sleep apnea Qualifiers: Sleep apnea type: obstructive Qualified Code(s): G47.33 - Obstructive sleep apnea (adult) (pediatric) Is this a current diagnosis for this admission?: Yes Plan: She continues on BiPAP at night. - Time Time Spent with patient: 25-34 minutes
[2018-05-19] MEDS: ALBUTEROL SULFATE 0.083% NEB 2.5 MG/3 ML AMPUL NEB SCH ×6 (00:15→20:23)
[2018-05-19] MEDS: INSULIN REG, HUMAN 100 UNIT/ML 3 ML VIAL (PYX) SUBCUT SCH ×4 (07:21→21:10)
[2018-05-19] MEDS: ENOXAPARIN SODIUM INJ 40 MG/0.4 ML DISP.SYRIN SUBCUT SCH (09:51)
[2018-05-19] MEDS: GABAPENTIN 400 MG CAPSULE PO SCH ×3 (09:53→17:09)
[2018-05-19] MEDS: PREDNISONE 20 MG TABLET PO SCH (09:53)
[2018-05-19] MEDS: LEVOFLOXACIN 750 MG TABLET PO SCH (09:53)
[2018-05-19] MEDS: BENZTROPINE MESYLATE 1 MG TABLET PO SCH ×2 (09:53→21:10)
[2018-05-19] MEDS: PANTOPRAZOLE SODIUM 20 MG TABLET.DR PO SCH (09:54)
[2018-05-19] MEDS: METFORMIN HCL 500 MG TABLET PO SCH ×2 (09:54→17:09)
[2018-05-19] MEDS: FLUTICASONE/VILANTEROL 200-25 MCG/DOSE IH SCH (09:54)
[2018-05-19] MEDS: OXYCODONE-ACETAMINOPHEN 5-325 MG TABLET PO PRN (10:30)
[2018-05-19 11:59] LABS: HEMATOCRIT 30.4 % (36.0-47.0); HEMOGLOBIN 9.9 g/dL (12.0-15.5); MEAN CORPUSCULAR HEMOGLOBIN 28.7 pg (27.0-33.4); MEAN CORPUSCULAR HGB CONC 32.6 g/dL (32.0-36.0); MEAN CORPUSCULAR VOLUME 88 fl (80-97); PLATELET COUNT 349 10^3/uL (150-450); RED BLOOD COUNT 3.46 10^6/uL (3.72-5.28); RED CELL DISTRIBUTION WIDTH 15.2 % (11.5-14.0); WHITE BLOOD COUNT 14.3 10^3/uL (4.0-10.5)
[2018-05-19 15:35] LABS: ALANINE AMINOTRANSFERASE 65 U/L (9-52); ALBUMIN 3.7 g/dL (3.5-5.0); ALKALINE PHOSPHATASE 138 U/L (38-126); ANION GAP 10 (5-19); ASPARTATE AMINO TRANSFERASE 41 U/L (14-36); BILIRUBIN,DIRECT 0.2 mg/dL (0.0-0.4); BILIRUBIN,TOTAL 0.5 mg/dL (0.2-1.3); BLOOD UREA NITROGEN 13 mg/dL (7-20); CALCIUM 8.6 mg/dL (8.4-10.2); CARBON DIOXIDE 28 mmol/L (22-30); CHLORIDE 101 mmol/L (98-107); GLUCOSE 207 mg/dL (75-110); POTASSIUM 4.4 mmol/L (3.6-5.0); SODIUM 138.9 mmol/L (137-145); TOTAL PROTEIN 7.5 g/dL (6.3-8.2)
--- NOTE | 2018-05-19 15:51 | PDOC PROGRESS REPORT ---
Subjective Progress Note for:: 05/19/18 Subjective:: No adverse events overnight. She has rested comfortably on 4 L per nasal cannula and with her CPAP. She keeps her CPAP on a lot even though her oxygen saturations are up to 100%. She is not having any more wheezing. She still complaining of hurting all over. Reason For Visit: PNEUMONIA Physical Exam Vital Signs: Temp Pulse Resp BP Pulse Ox 98.1 F 111 H 20 117/69 99 05/19/18 10:00 05/19/18 12:14 05/19/18 12:14 05/19/18 10:00 05/19/18 12:14 Intake & Output 05/18/18 05/19/18 05/20/18 06:59 06:59 06:59 Intake Total 1664 1788 Balance 1664 1788 Weight 169 kg 173.5 kg General appearance: PRESENT: cooperative, no acute distress Mouth exam: PRESENT: moist, neck supple Neck exam: PRESENT: full ROM. ABSENT: JVD, lymphadenopathy, tenderness, tracheal deviation Respiratory exam: PRESENT: Normal inspiratory effort, clear to auscultation bilaterally. Absent: Tachypnea, accessory muscle use, rhonchi, Rales, wheezes Cardiovascular exam: PRESENT: tachycardia. ABSENT: gallop, rubs GI/Abdominal exam: PRESENT: normal bowel sounds, soft. ABSENT: tenderness Extremities exam: ABSENT: pedal edema Musculoskeletal exam: PRESENT: full ROM Neurological exam: PRESENT: alert, oriented to person, oriented to place, oriented to time, oriented to situation Skin exam: PRESENT: dry, normal color, warm Results Laboratory Results: 05/19/18 11:17 05/19/18 15:03 05/19/18 05/19/18 11:17 15:03 WBC 14.3 H RBC 3.46 L Hgb 9.9 L Hct 30.4 L MCV 88 MCH 28.7 MCHC 32.6 RDW 15.2 H Plt Count 349 Sodium 138.9 Potassium 4.4 Chloride 101 Carbon Dioxide 28 Anion Gap 10 BUN 13 Creatinine 0.72 Est GFR ( Amer) > 60 Est GFR (Non-Af Amer) > 60 Glucose 207 H Calcium 8.6 Total Bilirubin 0.5 AST 41 H ALT 65 H Alkaline Phosphatase 138 H Total Protein 7.5 Albumin 3.7 05/17/18 10:30 Sputum Gram Stain - Final 05/17/18 10:30 Sputum Sputum Culture - Final Fungus Normal Luna Impressions: Chest X-Ray 05/15/18 08:42 IMPRESSION: Multifocal airspace disease, greatest within the right upper and left lower lobe, most compatible with multifocal pneumonia. Assessment and Plan - Diagnosis (1) Acute asthma exacerbation Qualifiers: Asthma severity: moderate Asthma persistence: persistent Qualified Code(s): J45.41 - Moderate persistent asthma with (acute) exacerbation Is this a current diagnosis for this admission?: Yes Plan: Improving on prednisone and antibiotics. She is not wheezing anymore. (2) Morbid obesity Is this a current diagnosis for this admission?: Yes Plan: Strongly encouraged lifestyle modification. We are encouraging her to get up and ambulate, but she is resistant to the idea (3) Multifocal pneumonia Is this a current diagnosis for this admission?: Yes Plan: She continues on antibiotics. Cultures are pending but are thus far negative. She still complaining of some subjective shortness of breath, so I have ordered a CTA of the chest to be thorough. She also had a fungus that grew out of her sputum culture, but no bacteria. The fungus is being sent for culture. She does not have any risk factors for immunosuppression. (4) Sleep apnea Qualifiers: Sleep apnea type: obstructive Qualified Code(s): G47.33 - Obstructive sleep apnea (adult) (pediatric) Is this a current diagnosis for this admission?: Yes Plan: She continues on BiPAP at night. - Time Time Spent with patient: 25-34 minutes
[2018-05-19] MEDS: HYDROXYZINE PAMOATE 50 MG CAPSULE PO PRN (18:56)
[2018-05-19] MEDS: OXYCODONE HCL IR 5 MG TABLET PO PRN (18:58)
--- NOTE | 2018-05-19 19:43 | RADIOLOGY REPORT (SQ) ---
EXAM DESCRIPTION: CTA CHEST COMPLETED DATE/TIME: 05/19/2018 6:33 pm REASON FOR STUDY: hypoxemia, pain with inspiration COMPARISON: 05/27/2016 TECHNIQUE: CT scan of the chest performed using helical scanning technique with dynamic intravenous contrast injection. Images reviewed with lung, soft tissue and bone windows. Reconstructed coronal and sagittal MPR images reviewed. Additional 3 dimensional post-processing performed to develop Maximal Intensity Projection images (NM P). All images stored on PACS. All CT scanners at this facility use dose modulation, iterative reconstruction, and/or weight based d osing when appropriate to reduce radiation dose to as low as reasonably achievable (ALARA). [facility]: Dose Right [facility]: CareDose [facility]: Dose Right [facility]: Teradose 4D [facility]: Fuzz CONTRAST TYPE AND DOSE: contrast/concentration: Isovue 350.00 mg/ml; Total Contrast Delivered: 90.0 ml; Total Saline Delivered: 80.0 ml Contrast bolus not optimized for the pulmonary arteries. RENAL FUNCTION: GFR > 60. RADIATION DOSE: CT Rad equipment meets quality standard of care and radiation dose reduction techniq ues were employed. CTDIvol: 41.8 - 82.7 mGy. DLP: 3448 mGy-cm. . LIMITATIONS: Contrast Bolus timing not adequate for pulmonary arteries. FINDINGS: LUNGS AND PLEURA: No pneumothorax. No pleural effusions. There are areas of patchy conso lidation -nodularity and ground-glass opacity scattered throughout the right lung. Left lung appears clear. . AORTA AND GREAT VESSELS: No aneurysm. Contrast bolus not optimized for the aorta. HEART: No pericardial effusion. No significant coronary artery calcifications. PULMONARY ARTERIES: No emboli visualized in the main pulmonary arteries. Bolus timing prevents evalu ation of the segmental branches. HILAR AND MEDIASTINAL STRUCTURES: Scattered small nodes. HARDWARE: None in the chest. UPPER ABDOMEN: No significant findings. Limited exam. THYROID AND OTHER SOFT TISSUES: No masses. No adenopathy. BONES: No acute or significant finding. 3D MIPS: Confirm above findings. OTHER: No other significant finding. IMPRESSION: There are areas of patchy consolidation -nodularity and ground-glass opacity scattered t hroughout the right lung. Contrast Bolus timing not adequate for pulmonary arteries.No emboli visual ized in the main pulmonary arteries. Bolus timing prevents evaluation of the segmental branches. COMMENT: Quality ID # [id number]: Final reports with documentation of one or more dose reduction techniques (e.g., Automated exposure control, adjustment of the mA and/or kV according to patient size, use of iterative reconstruction technique) TECHNICAL DOCUMENTATION: JOB ID: [id number] [place]-72 2010 [employer]- All Rights Reserved Reading location - IP/workstation name: [email or web address]
[2018-05-20] MEDS: ALBUTEROL SULFATE 0.083% NEB 2.5 MG/3 ML AMPUL NEB SCH ×6 (00:37→19:49)
[2018-05-20] MEDS: OXYCODONE-ACETAMINOPHEN 5-325 MG TABLET PO PRN ×2 (01:58→17:00)
[2018-05-20] MEDS: INSULIN REG, HUMAN 100 UNIT/ML 3 ML VIAL (PYX) SUBCUT SCH ×4 (07:44→21:38)
[2018-05-20] MEDS: METFORMIN HCL 500 MG TABLET PO SCH ×2 (07:55→17:00)
[2018-05-20] MEDS: PREDNISONE 20 MG TABLET PO SCH (09:37)
[2018-05-20] MEDS: GABAPENTIN 400 MG CAPSULE PO SCH ×3 (09:37→18:29)
[2018-05-20] MEDS: PANTOPRAZOLE SODIUM 20 MG TABLET.DR PO SCH (09:37)
[2018-05-20] MEDS: BENZTROPINE MESYLATE 1 MG TABLET PO SCH ×2 (09:37→21:38)
[2018-05-20] MEDS: FLUTICASONE/VILANTEROL 200-25 MCG/DOSE IH SCH (09:38)
[2018-05-20] MEDS: LEVOFLOXACIN 750 MG TABLET PO SCH (09:40)
[2018-05-20] MEDS: OXYCODONE HCL IR 5 MG TABLET PO PRN ×2 (09:41→20:37)
[2018-05-20] MEDS: ENOXAPARIN SODIUM INJ 40 MG/0.4 ML DISP.SYRIN SUBCUT SCH (09:43)
--- NOTE | 2018-05-20 15:37 | PDOC PROGRESS REPORT ---
Subjective Progress Note for:: 05/20/18 Subjective:: No adverse events overnight. No new complaints. She is sitting up in the chair on the nasal cannula eating her lunch watching television. She says she is feeling a lot better. She is been able to get up and walk around some and while she is still getting short of breath it is not as bad as it was previously. No fevers. Cough is been nonproductive. Reason For Visit: PNEUMONIA Physical Exam Vital Signs: Temp Pulse Resp BP Pulse Ox 98.5 F 90 22 H 122/52 L 98 05/20/18 12:27 05/20/18 14:00 05/20/18 12:27 05/20/18 12:27 05/20/18 12:27 Intake & Output 05/19/18 05/20/18 05/21/18 06:59 06:59 06:59 Intake Total 1788 820 Balance 1788 820 Weight 173.5 kg 173.5 kg General appearance: PRESENT: cooperative, no acute distress Mouth exam: PRESENT: moist, neck supple Neck exam: PRESENT: full ROM. ABSENT: JVD, lymphadenopathy, tenderness, tracheal deviation Respiratory exam: PRESENT: Normal inspiratory effort, clear to auscultation bilaterally. Absent: Tachypnea, accessory muscle use, rhonchi, Rales, wheezes Cardiovascular exam: PRESENT: tachycardia. ABSENT: gallop, rubs GI/Abdominal exam: PRESENT: normal bowel sounds, soft. ABSENT: tenderness Extremities exam: ABSENT: pedal edema Musculoskeletal exam: PRESENT: full ROM Neurological exam: PRESENT: alert, oriented to person, oriented to place, or iented to time, oriented to situation Skin exam: PRESENT: dry, normal color, warm Results Laboratory Results: 05/19/18 11:17 05/19/18 15:03 05/19/18 15:03 Sodium 138.9 Potassium 4.4 Chloride 101 Carbon Dioxide 28 Anion Gap 10 BUN 13 Creatinine 0.72 Est GFR ( Amer) > 60 Est GFR (Non-Af Amer) > 60 Glucose 207 H Calcium 8.6 Total Bilirubin 0.5 AST 41 H ALT 65 H Alkaline Phosphatase 138 H Total Protein 7.5 Albumin 3.7 05/15/18 13:27 Blood Blood Culture - Final NO GROWTH IN 5 DAYS 05/15/18 12:05 Blood Blood Culture - Final NO GROWTH IN 5 DAYS Impressions: Chest X-Ray 05/15/18 08:42 IMPRESSION: Multifocal airspace disease, greatest within the right upper and left lower lobe, most compatible with multifocal pneumonia. Chest/Abdomen CTA 05/19/18 00:00 IMPRESSION: There are areas of patchy consolidation -nodularity and ground- glass opacity scattered throughout the right lung. Contrast Bolus timing not adequate for pulmonary arteries.No emboli visualized in the main pulmonary arteries. Bolus timing prevents evaluation of the segmental branches. Assessment and Plan - Diagnosis (1) Acute asthma exacerbation Qualifiers: Asthma severity: moderate Asthma persistence: persistent Qualified Code(s): J45.41 - Moderate persistent asthma with (acute) exacerbation Is this a current diagnosis for this admission?: Yes Plan: Improving on prednisone and antibiotics. She is not wheezing anymore. (2) Morbid obesity Is this a current diagnosis for this admission?: Yes Plan: Strongly encouraged lifestyle modification. We are encouraging her to get up and ambulate, but she is resistant to the idea (3) Multifocal pneumonia Is this a current diagnosis for this admission?: Yes Plan: She continues on antibiotics. Cultures are pending but are thus far negative. Shortness of breath is improving. CTA of the chest did not give us any new information. (4) Sleep apnea Qualifiers: Sleep apnea type: obstructive Qualified Code(s): G47.33 - Obstructive sleep apnea (adult) (pediatric) Is this a current diagnosis for this admission?: Yes Plan: She continues on BiPAP at night. - Time Time Spent with patient: 25-34 minutes
[2018-05-20] MEDS: HYDROXYZINE PAMOATE 50 MG CAPSULE PO PRN (17:01)
[2018-05-20] MEDS: GUAIFENESIN SYRP 200 MG/10 ML UDC PO PRN (20:37)
[2018-05-21] MEDS: ALBUTEROL SULFATE 0.083% NEB 2.5 MG/3 ML AMPUL NEB SCH ×6 (01:01→20:20)
[2018-05-21] MEDS: OXYCODONE-ACETAMINOPHEN 5-325 MG TABLET PO PRN ×2 (02:14→19:34)
[2018-05-21] MEDS: INSULIN REG, HUMAN 100 UNIT/ML 3 ML VIAL (PYX) SUBCUT SCH ×4 (07:32→22:08)
[2018-05-21] MEDS: METFORMIN HCL 500 MG TABLET PO SCH ×2 (07:41→15:54)
[2018-05-21] MEDS: OXYCODONE HCL IR 5 MG TABLET PO PRN (08:59)
[2018-05-21] MEDS: FLUTICASONE/VILANTEROL 200-25 MCG/DOSE IH SCH (11:55)
[2018-05-21] MEDS: GABAPENTIN 400 MG CAPSULE PO SCH ×3 (11:56→17:23)
[2018-05-21] MEDS: PREDNISONE 20 MG TABLET PO SCH (11:56)
[2018-05-21] MEDS: PANTOPRAZOLE SODIUM 20 MG TABLET.DR PO SCH (11:56)
[2018-05-21] MEDS: BENZTROPINE MESYLATE 1 MG TABLET PO SCH ×2 (11:56→22:08)
[2018-05-21] MEDS: LEVOFLOXACIN 750 MG TABLET PO SCH (11:56)
[2018-05-21] MEDS: ENOXAPARIN SODIUM INJ 40 MG/0.4 ML DISP.SYRIN SUBCUT SCH (11:58)
--- NOTE | 2018-05-21 14:57 | PDOC PROGRESS REPORT ---
Subjective Progress Note for:: 05/21/18 Subjective:: No adverse events overnight. No new complaints. Patient has been ambulating independently and denies a need for physical therapy. Her chief concern is that she gets short of breath with exertion. She is been afebrile. We were able to turn her oxygen down to 2 L and she stayed in the mid to low 90s. Reason For Visit: PNEUMONIA Physical Exam Vital Signs: Temp Pulse Resp BP Pulse Ox 98.4 F 110 H 20 89/33 L 92 05/21/18 11:09 05/21/18 12:35 05/21/18 12:35 05/21/18 11:09 05/21/18 12:35 Intake & Output 05/20/18 05/21/18 05/22/18 06:59 06:59 06:59 Intake Total 820 1323 Balance 820 1323 Weight 173.5 kg 173.5 kg General appearance: PRESENT: cooperative, no acute distress Mouth exam: PRESENT: moist, neck supple Neck exam: PRESENT: full ROM. ABSENT: JVD, lymphadenopathy, tenderness, tracheal deviation Respiratory exam: PRESENT: Normal inspiratory effort, clear to auscultation bilaterally. Absent: Tachypnea, accessory muscle use, rhonchi, Rales, wheezes Cardiovascular exam: PRESENT: tachycardia. ABSENT: gallop, rubs GI/Abdominal exam: PRESENT: normal bowel sounds, soft. ABSENT: tenderness Extremities exam: ABSENT: pedal edema Musculoskeletal exam: PRESENT: full ROM Neurological exam: PRESENT: alert, oriented to person, oriented to place, oriented to time, oriented to situation Skin exam: PRESENT: dry, normal color, warm Results Laboratory Results: 05/19/18 11:17 05/19/18 15:03 05/15/18 13:27 Blood Blood Culture - Final NO GROWTH IN 5 DAYS 05/15/18 12:05 Blood Blood Culture - Final NO GROWTH IN 5 DAYS Impressions: Chest X-Ray 05/15/18 08:42 IMPRESSION: Multifocal airspace disease, greatest within the right upper and left lower lobe, most compatible with multifocal pneumonia. Chest/Abdomen CTA 05/19/18 00:00 IMPRESSION: There are areas of patchy consolidation -nodularity and ground- glass opacity scattered throughout the right lung. Contrast Bolus timing not adequate for pulmonary arteries.No emboli visualized in the main pulmonary arteries. Bolus timing prevents evaluation of the segmental branches. Assessment and Plan - Diagnosis (1) Acute asthma exacerbation Qualifiers: Asthma severity: moderate Asthma persistence: persistent Qualified Code(s): J45.41 - Moderate persistent asthma with (acute) exacerbation Is this a current diagnosis for this admission?: Yes Plan: Improving on prednisone and antibiotics. She is not wheezing anymore. Will stop the prednisone when she has had 5 days total. (2) Morbid obesity Is this a current diagnosis for this admission?: Yes Plan: Strongly encouraged lifestyle modification. We are encouraging her to get up and ambulate. Suspect a large component of her hypoxemia is from deconditioning and obesity hypoventilation syndrome. We need to determine if she actually qualifies for oxygen, and if so we need to get that arranged and then we can send her home. (3) Multifocal pneumonia Is this a current diagnosis for this admission?: Yes Plan: She continues on antibiotics. Cultures are pending but are thus far negative. Shortness of breath is improving. CTA of the chest did not give us any new information. (4) Sleep apnea Qualifiers: Sleep apnea type: obstructive Qualified Code(s): G47.33 - Obstructive sleep apnea (adult) (pediatric) Is this a current diagnosis for this admission?: Yes Plan: She continues on BiPAP at night. - Time Time Spent with patient: 25-34 minutes
[2018-05-22] MEDS: ALBUTEROL SULFATE 0.083% NEB 2.5 MG/3 ML AMPUL NEB SCH ×6 (01:07→19:53)
[2018-05-22] MEDS: OXYCODONE HCL IR 5 MG TABLET PO PRN (03:16)
[2018-05-22] MEDS: METFORMIN HCL 500 MG TABLET PO SCH ×2 (08:00→15:28)
[2018-05-22] MEDS: INSULIN REG, HUMAN 100 UNIT/ML 3 ML VIAL (PYX) SUBCUT SCH ×4 (08:02→21:22)
[2018-05-22] MEDS: OXYCODONE-ACETAMINOPHEN 5-325 MG TABLET PO PRN (10:48)
[2018-05-22] MEDS: GABAPENTIN 400 MG CAPSULE PO SCH ×3 (10:48→17:35)
[2018-05-22] MEDS: PANTOPRAZOLE SODIUM 20 MG TABLET.DR PO SCH (10:48)
[2018-05-22] MEDS: ENOXAPARIN SODIUM INJ 40 MG/0.4 ML DISP.SYRIN SUBCUT SCH (10:48)
[2018-05-22] MEDS: FLUTICASONE/VILANTEROL 200-25 MCG/DOSE IH SCH (10:49)
[2018-05-22] MEDS: LEVOFLOXACIN 750 MG TABLET PO SCH (10:49)
[2018-05-22] MEDS: BENZTROPINE MESYLATE 1 MG TABLET PO SCH ×2 (10:49→21:21)
--- NOTE | 2018-05-22 21:12 | XCELERA REPORT ---
[address] [address] Transthoracic Echocardiogram Report Name: SARAHI ST Age: 33 yrs Gender: Female : 1985 Patient Status: Inpatient Patient Location: [address] [place] [address] Study Date: 05/22/2018 01:41 PM Height: 62 in Weight: 314 lb BSA: 2.3 m2 Procedure: A two-dimensional transthoracic echocardiogram with color flow and Doppler was performed. The study was technically difficult with many images being suboptimal in quality. Study Quality: Technically suboptimal. Reason For Study: sob History: Shortness of breath. Ordering Physician: RAY DOMÍNGUEZ Performed By: Yola Flood Interpretation Summary The left ventricle is normal in size. There is normal left ventricular wall thickness. LV EF is 65% Left ventricular systolic function is normal. Doppler measurements suggest normal left ventricular diastolic function The left ventricular wall motion is normal. There is no thrombus. The right ventricle is not well visualized secondary to technical limitations Probably mildly dilated RV with normal systolic function. Probably normal RA size. The left atrial size is normal. There is no evidence of mitral valve prolapse. There is no vegetation seen on the mitral valve. There is no mitral valve stenosis. There is no mitral regurgitation noted. There is no aortic valve stenosis No aortic regurgitation is present. There is no tricuspid stenosis. There is a trace to mild amount of tricuspid regurgitation There is mild pulmonary hypertension by echo RVSP is 32 to 37 mm of Hg , with RA mean of 5 to 10. There is no pulmonic valvular stenosis. There is no pulmonic valvular regurgitation. The aortic root is normal size. The inferior vena cava appeared normal and decreased > 50% with respiration (RAP 5-10 mmHg) Minimal pericardial effusion. There are no echocardiographic or Doppler indications for cardiac tamponade MMode/2D Measurements & Calculations RVDd: 3.7 cm LVIDd: 4.7 cm FS: 37.3 % Ao root diam: 2.5 cm IVSd: 1.0 cm LVIDs: 3.0 cm EDV(Teich): 102.6 ml Ao root area: 4.7 cm2 LVPWd: 1.00 cm ESV(Teich): 33.6 ml LA dimension: 3.8 cm EF(Teich): 67.2 % Doppler Measurements & Calculations MV E max benji: MV P1/2t max benji: Ao V2 max: LV V1 max P.5 cm/sec 115.0 cm/sec 165.6 cm/sec 7.4 mmHg MV A max benji: MV P1/2t: 61.9 msec Ao max PG: LV V1 max: 71.6 cm/sec MVA(P1/2t): 3.6 cm2 11.0 mmHg 135.7 cm/sec MV E/A: 1.6 MV dec slope: 544.4 cm/sec2 MV dec time: 0.22 sec PA V2 max: TR max benji: MV P1/2t-pr_phl: 99.7 cm/sec 259.5 cm/sec 61.9 msec PA max P.0 mmHgTR max P.9 mmHg Left Ventricle The left ventricle is normal in size. There is normal left ventricular wall thickness. LV EF is 65%. Left ventricular systolic function is normal. Doppler measurements suggest normal left ventricular diastolic function. The left ventricular wall motion is normal. There is no thrombus. Right Ventricle The right ventricle is not well visualized secondary to technical limitations. Probably mildly dilated RV with normal systolic function. Atria Probably normal RA size. The left atrial size is normal. Mitral Valve There is no evidence of mitral valve prolapse. There is no vegetation seen on the mitral valve. There is no mitral valve stenosis. There is no mitral regurgitation noted. Aortic Valve There is no aortic valvular vegetation. There is no aortic valve stenosis. No aortic regurgitation is present. Tricuspid Valve There is no tricuspid stenosis. There is a trace to mild amount of tricuspid regurgitation. There is mild pulmonary hypertension by echo. RVSP is 32 to 37 mm of Hg , with RA mean of 5 to 10. Pulmonic Valve There is no pulmonic valvular stenosis. There is no pulmonic valvular regurgitation. Great Vessels The aortic root is normal size. The inferior vena cava appeared normal and decreased > 50% with respiration (RAP 5-10 mmHg). Effusions Minimal pericardial effusion. There are no echocardiographic or Doppler indications for cardiac tamponade. : RAY DOMÍNGUEZ > Aleah Arndt
[2018-05-22] MEDS ORDERED: OXYCODONE-ACETAMINOPHEN 5-325 MG TABLET PO ONE (21:30)
[2018-05-22] MEDS: HYDROXYZINE PAMOATE 50 MG CAPSULE PO PRN (22:32)
[2018-05-23] MEDS: ALBUTEROL SULFATE 0.083% NEB 2.5 MG/3 ML AMPUL NEB SCH ×7 (00:13→23:17)
[2018-05-23] MEDS: METFORMIN HCL 500 MG TABLET PO SCH ×2 (08:35→16:10)
[2018-05-23] MEDS: INSULIN REG, HUMAN 100 UNIT/ML 3 ML VIAL (PYX) SUBCUT SCH ×4 (08:44→21:48)
[2018-05-23] MEDS: PANTOPRAZOLE SODIUM 20 MG TABLET.DR PO SCH (10:04)
[2018-05-23] MEDS: BENZTROPINE MESYLATE 1 MG TABLET PO SCH ×2 (10:04→21:58)
[2018-05-23] MEDS: GABAPENTIN 400 MG CAPSULE PO SCH ×3 (10:05→17:43)
[2018-05-23] MEDS: ENOXAPARIN SODIUM INJ 40 MG/0.4 ML DISP.SYRIN SUBCUT SCH (10:05)
[2018-05-23] MEDS: LEVOFLOXACIN 750 MG TABLET PO SCH (10:06)
[2018-05-23] MEDS: FLUTICASONE/VILANTEROL 200-25 MCG/DOSE IH SCH (10:06)
[2018-05-23 10:47] LABS: HEMOGLOBIN 11.2 g/dL (12.0-15.5); MEAN CORPUSCULAR HEMOGLOBIN 29.6 pg (27.0-33.4); MEAN CORPUSCULAR VOLUME 90 fl (80-97); PLATELET COUNT 417 10^3/uL (150-450); RED BLOOD COUNT 3.79 10^6/uL (3.72-5.28); RED CELL DISTRIBUTION WIDTH 15.3 % (11.5-14.0); WHITE BLOOD COUNT 11.1 10^3/uL (4.0-10.5)
[2018-05-23 10:58] LABS: ALANINE AMINOTRANSFERASE 32 U/L (9-52); ALBUMIN 3.5 g/dL (3.5-5.0); ALKALINE PHOSPHATASE 130 U/L (38-126); ANION GAP 10 (5-19); ASPARTATE AMINO TRANSFERASE 17 U/L (14-36); BILIRUBIN,DIRECT 0.3 mg/dL (0.0-0.4); BILIRUBIN,TOTAL 0.4 mg/dL (0.2-1.3); BLOOD UREA NITROGEN 13 mg/dL (7-20); CARBON DIOXIDE 29 mmol/L (22-30); CHLORIDE 99 mmol/L (98-107); GLUCOSE 112 mg/dL (75-110); PHOSPHORUS 4.8 mg/dL (2.5-4.5); SODIUM 138.1 mmol/L (137-145); TOTAL PROTEIN 6.9 g/dL (6.3-8.2)
[2018-05-23 11:13] LABS: ABSOLUTE LYMPHOCYTES# (MANUAL) 3.3 10^3/uL (0.5-4.7); ABSOLUTE MONOCYTES # (MANUAL) 0.7 10^3/uL (0.1-1.4); ABSOLUTE NEUTROPHILS# (MANUAL) 6.7 10^3/uL (1.7-8.2); BASOPHILS % (MANUAL) 0 % (0-2); EOSINOPHILS % (MANUAL) 4 % (0-6); LYMPHOCYTES % (MANUAL) 30 % (13-45); METAMYELOCYTES % (MANUAL) 1 % (0); MONOCYTES % (MANUAL) 6 % (3-13); SEGMENTED NEUTROPHILS % (MAN) 59 % (42-78); TOTAL CELLS COUNTED 100
[2018-05-23 11:14] LABS: PLATELET COMMENT ADEQUATE; POLYCHROMASIA 1+
[2018-05-23 11:15] LABS: POIKILOCYTOSIS SLIGHT; TEAR DROP CELLS SLIGHT; TOXIC VACUOLATION PRESENT
[2018-05-23] MEDS: OXYCODONE HCL IR 5 MG TABLET PO PRN ×2 (16:14→23:53)
[2018-05-23] MEDS ORDERED: METOCLOPRAMIDE HCL ORAL SOLN 10 MG/10 ML UDCUP PO ONE (16:30)
[2018-05-23] MEDS ORDERED: MAG HYDROX/AL HYDROX/SIMETH SUSP 30 ML UDCUP PO ONE (16:30)
[2018-05-23] MEDS ORDERED: LIDOCAINE 2% VISCOUS SOLN 20 ML UDCUP PO ONE (16:30)
--- NOTE | 2018-05-23 20:14 | PDOC PROGRESS REPORT ---
Subjective Progress Note for:: 05/23/18 Subjective:: The patient is resting in her bed. She is still requiring oxygen and she was not oxygen dependent prior to this hospitalization. She states that she is having a little bit of epigastric abdominal pain. She also complains of vaginal bleeding. She states she still is quite short of breath if she gets up and tries to move around. Still having some issues with squeezing. She has had no nausea or vomiting. She is having normal bowel movements. She is voiding w ithout difficulty. Reason For Visit: PNEUMONIA Physical Exam Vital Signs: Temp Pulse Resp BP Pulse Ox 98.9 F 92 20 126/31 H 100 05/23/18 16:00 05/23/18 19:00 05/23/18 16:00 05/23/18 16:00 05/23/18 16:00 Intake & Output 05/22/18 05/23/18 05/24/18 06:59 06:59 06:59 Intake Total 836 1097 782 Balance 836 1097 782 Weight 142.8 kg 143.2 kg General appearance: PRESENT: morbidly obese Head exam: PRESENT: atraumatic, normocephalic Respiratory exam: PRESENT: wheezes - She has mild wheezing, other - She is significantly diminished in the lower bases bilaterally. Cardiovascular exam: PRESENT: RRR. ABSENT: diastolic murmur, rubs, systolic murmur GI/Abdominal exam: PRESENT: normal bowel sounds, soft, other - Her abdomen is morbidly obese. ABSENT: distended, guarding, mass, organolmegaly, rebound, tenderness Rectal exam: PRESENT: deferred Extremities exam: PRESENT: full ROM, pedal edema. ABSENT: calf tenderness, clubbing Musculoskeletal exam: PRESENT: ambulatory Neurological exam: PRESENT: alert, awake, oriented to person, oriented to place, oriented to time, oriented to situation, CN II-XII grossly intact. ABSENT: motor sensory deficit Psychiatric exam: PRESENT: appropriate affect, normal mood. ABSENT: homicidal ideation, suicidal ideation Skin exam: PRESENT: dry, intact, warm. ABSENT: cyanosis, rash Results Laboratory Results: 05/23/18 10:12 05/23/18 10:12 05/23/18 05/23/18 10:12 10:12 WBC 11.1 H RBC 3.79 Hgb 11.2 L Hct 34.0 L MCV 90 MCH 29.6 MCHC 33.0 RDW 15.3 H Plt Count 417 Seg Neutrophils % Not Reportable Lymphocytes % Not Reportable Monocytes % Not Reportable Eosinophils % Not Reportable Basophils % Not Reportable Absolute Neutrophils Not Reportable Absolute Lymphocytes Not Reportable Absolute Monocytes Not Reportable Absolute Eosinophils Not Reportable Absolute Basophils Not Reportable Sodium 138.1 Potassium 5.0 Chloride 99 Carbon Dioxide 29 Anion Gap 10 BUN 13 Creatinine 0.73 Est GFR ( Amer) > 60 Est GFR (Non-Af Amer) > 60 Glucose 112 H Calcium 9.0 Phosphorus 4.8 H Magnesium 2.7 H Total Bilirubin 0.4 AST 17 ALT 32 Alkaline Phosphatase 130 H Total Protein 6.9 Albumin 3.5 05/17/18 10:30 Sputum Fungal Smear - Final 05/17/18 10:30 Sputum Fungal Smear - Final 05/22/18 09:30 NT-Pro-B Natriuret Pep 36 Impressions: Chest X-Ray 05/15/18 08:42 IMPRESSION: Multifocal airspace disease, greatest within the right upper and left lower lobe, most compatible with multifocal pneumonia. Chest/Abdomen CTA 05/19/18 00:00 IMPRESSION: There are areas of patchy consolidation -nodularity and ground- glass opacity scattered throughout the right lung. Contrast Bolus timing not adequate for pulmonary arteries.No emboli visualized in the main pulmonary a rteries. Bolus timing prevents evaluation of the segmental branches. Assessment and Plan - Diagnosis (1) Acute respiratory failure with hypoxia Is this a current diagnosis for this admission?: Yes Plan: Secondary to multifocal pneumonia. She also has underlying sleep apnea and I suspect she has obesity hypoventilation syndrome. She still is requiring oxygen at this point. Continue breathing treatments and therapy as outlined below (2) Multifocal pneumonia Is this a current diagnosis for this admission?: Yes Plan: Currently on p.o. Levaquin. I believe she is improving from the standpoint. (3) Acute asthma exacerbation Qualifiers: Asthma severity: moderate Asthma persistence: persistent Qualified Code(s): J45.41 - Moderate persistent asthma with (acute) exacerbation Is this a current diagnosis for this admission?: Yes Plan: She was initially on IV Solu-Medrol and has been transitioned to p.o. prednisone. She still has some mild wheezing but this is improved. Continue breathing treatments (4) Obstructive sleep apnea Is this a current diagnosis for this admission?: Yes Plan: Continue CPAP (5) Morbid obesity Is this a current diagnosis for this admission?: Yes Plan: Certainly she needs to lose weight. Her BMI is 57.7 (6) Vaginal bleeding Is this a current diagnosis for this admission?: Yes Plan: This began after she was started on prophylactic Lovenox. She has been on Depo- Medrol and does not have periods normally. (7) Hyperglycemia Is this a current diagnosis for this admission?: Yes Plan: Secondary to steroids (8) Elevated liver function tests Is this a current diagnosis for this admission?: Yes Plan: Of undetermined significance. She does have an elevated alkaline phosphatase. We will just keep an eye on this in case her abdominal pain worsens (9) Anemia Is this a current diagnosis for this admission?: Yes Plan: She has a normocytic anemia consistent with chronic disease (10) Full code status Is this a current diagnosis for this admission?: Yes - Time Time Spent with patient: 35 or more minutes - Inpatient Certification Medical Necessity: Other - Inpatient hospitalization remains necessary. The patient is still requiring oxygen. She is having vaginal bleeding and is having some abdominal pain today. I believe we keep her in the hospital for another day or 2 to try to get all of the settle down. Hopefully she will not have to go home with oxygen but she may be getting to that point.
[2018-05-23] MEDS: HYDROXYZINE PAMOATE 50 MG CAPSULE PO PRN (21:58)
[2018-05-24] MEDS: ALBUTEROL SULFATE 0.083% NEB 2.5 MG/3 ML AMPUL NEB SCH ×5 (04:45→22:10)
--- NOTE | 2018-05-24 06:05 | PDOC CONSULTATION ---
Consultation Consult Date: 05/23/18 Consult reason:: vaginal bleeding an abdominal pain History of Present Illness Admission Date/PCP: 05/15/18 15:52 [facility] Patient complains of: vaginal bleeding since beginning lovenox History of Present Illness: SARAHI ST is a 33 year old female who was admitted approximately 1 week ago for pneumonia, diabetes. Patient began having vaginal bleeding approximately 2 days ago after beginning lovenox. Indicates that she is normally on depo and does not have regular periods. States that her last depo was in January therefore she is overdue for her injection. Past Medical History Cardiac Medical History: Reports: Hypertension Denies: Coronary Artery Disease, Myocardial Infarction Pulmonary Medical History: Reports: Asthma, Sleep Apnea Denies: Bronchitis, Chronic Obstructive Pulmonary Disease (COPD), Pneumonia Neurological Medical History: Denies: Seizures Endocrine Medical History: Reports: Diabetes Mellitus Type 2 Denies: Diabetes Mellitus Type 1 GI Medical History: Reports: Gastroesophageal Reflux Disease Musculoskeltal Medical History: Denies: Arthritis Psychiatric Medical History: Reports: Attention Deficit Hyperactivity Disorder, Bipolar Disorder, Depression - anxiety Social History Smoking Status: Former Smoker Number of Years Smokin Last Time Smoked: 02/28/2008 Frequency of Alcohol Use: None Drugs: None Hx Prescription Drug Abuse: No - Advance Directive Resuscitation Status: Full Code Family History Family History: DM, Hypertension, Other - Brother with blood clots, mother with hysterectomy Parental Family History Reviewed: Yes Children Family History Reviewed: Yes Sibling(s) Family History Reviewed.: Yes Medication/Allergy Home Medications: Fluticasone Propionate [Flonase Nasal Lincoln 50 Mcg/Lincoln 16 gm] 2 sprays NASL Q12 PRN 01/07/17 Albuterol Sulfate [Proair HFA] 2 puff IH Q4 PRN 06/03/17 Hydroxyzine HCl 50 mg PO Q8HP PRN #10 tablet 06/03/17 Oxycodone HCl/Acetaminophen [Oxycodone-Acetaminophen 10-325] 1 tab PO Q6HP PRN 06/03/17 Omeprazole Magnesium [Prilosec Otc] 20 mg PO BID #40 tablet. 06/29/17 Benztropine Mesylate [Benztropine Mesylate 0.5 mg Tablet] 0.5 mg PO Q12 05/15/18 Budesonide/Formoterol Fumarate [Symbicort Hfa 80-4.5 Mcg Inhaler 6.9 gm] 2 puff IH Q12 05/15/18 Ferrous Sulfate [Iron] 325 mg PO DAILY 05/15/18 Gabapentin [Neurontin 300 mg Capsule] 600 mg PO Q8 05/15/18 Metformin HCl [Metformin HCl ER] 500 mg PO DAILY 05/15/18 Prazosin HCl [Minipress] 1 mg PO QHS 05/15/18 Sucralfate [Carafate 1 gm Tablet] 1 gm PO ACHS PRN 05/15/18 Venlafaxine HCl [Venlafaxine Hcl Er] 37.5 mg PO DAILY 05/15/18 Allergies/Adverse Reactions: amoxicillin [Amoxicillin] Allergy (Verified 05/15/18 08:29) benzonatate [From Tessalon Perles] Allergy (Verified 05/15/18 08:29) iloperidone [From Fanapt] Allergy (Verified 05/15/18 08:29) Penicillins Allergy (Verified 05/15/18 08:29) Physical Exam - Physical Exam Vital Signs: Temp Pulse Resp BP Pulse Ox 98.4 F 102 H 18 129/66 H 99 05/24/18 00:00 05/24/18 04:45 05/24/18 04:45 05/24/18 00:00 05/24/18 04:45 Intake & Output 05/22/18 05/23/18 05/24/18 06:59 06:59 06:59 Intake Total 836 1097 782 Balance 836 1097 782 Weight 142.8 kg 143.2 kg 142.2 kg General appearance: PRESENT: no acute distress, cooperative Result Laboratory Results: 05/23/18 10:12 05/23/18 10:12 05/23/18 05/23/18 10:12 10:12 WBC 11.1 H RBC 3.79 Hgb 11.2 L Hct 34.0 L MCV 90 MCH 29.6 MCHC 33.0 RDW 15.3 H Plt Count 417 Seg Neutrophils % Not Reportable Lymphocytes % Not Reportable Monocytes % Not Reportable Eosinophils % Not Reportable Basophils % Not Reportable Absolute Neutrophils Not Reportable Absolute Lymphocytes Not Reportable Absolute Monocytes Not Reportable Absolute Eosinophils Not Reportable Absolute Basophils Not Reportable Sodium 138.1 Potassium 5.0 Chloride 99 Carbon Dioxide 29 Anion Gap 10 BUN 13 Creatinine 0.73 Est GFR ( Amer) > 60 Est GFR (Non-Af Amer) > 60 Glucose 112 H Calcium 9.0 Phosphorus 4.8 H Magnesium 2.7 H Total Bilirubin 0.4 AST 17 ALT 32 Alkaline Phosphatase 130 H Total Protein 6.9 Albumin 3.5 05/17/18 10:30 Sputum Fungal Smear - Final 05/17/18 10:30 Sputum Fungal Smear - Final 05/22/18 09:30 NT-Pro-B Natriuret Pep 36 Impressions: Chest X-Ray 05/15/18 08:42 IMPRESSION: Multifocal airspace disease, greatest within the right upper and left lower lobe, most compatible with multifocal pneumonia. Chest/Abdomen CTA 05/19/18 00:00 IMPRESSION: There are areas of patchy consolidation -nodularity and ground- glass opacity scattered throughout the right lung. Contrast Bolus timing not adequate for pulmonary arteries.No emboli visualized in the main pulmonary arteries. Bolus timing prevents evaluation of the segmental branches. Assessment & Plan - Diagnosis (2) Acute asthma exacerbation Qualifiers: Asthma severity: moderate Asthma persistence: persistent Qualified Code(s): J45.41 - Moderate persistent asthma with (acute) exacerbation Is this a current diagnosis for this admission?: Yes (3) Acute respiratory failure with hypoxia Is this a current diagnosis for this admission?: Yes (4) Anemia Is this a current diagnosis for this admission?: Yes (5) Anxiety Is this a current diagnosis for this admission?: Yes (6) Diabetes type 2, controlled Qualifiers: Diabetes mellitus chcf insulin use: with chcf use Diabetes mellitus complication status: without complication Qualified Code(s): E11.9 - Type 2 diabetes mellitus without complications; Z79.4 - intermediate card tender (current) use of insulin Is this a current diagnosis for this admission?: Yes (7) Elevated liver function tests Is this a current diagnosis for this admission?: Yes (8) Full code status Is this a current diagnosis for this admission?: Yes (9) Hyperglycemia Is this a current diagnosis for this admission?: Yes - Time Time Spent: 30 to 50 Minutes Critical Time spent with patient: Less than 15 minutes Medications reviewed and adjusted accordingly: No Anticipated discharge: Home Within: Other - Inpatient Certification Based on my medical assessment, after consideration of the patient's comorbidities, presenting symptoms, or acuity I expect that the services needed warrant INPATIENT care.: Yes I certify that my determination is in accordance with my understanding of Medicare's requirements for reasonable and necessary INPATIENT services [42 CFR 412.3e].: Yes Medical Necessity: Need for IV Antibiotics - Plan Summary Plan Summary: depo provera is associated with endometrium instability especially when injection is due. anticoagulation can exacerbate this instability and cause vaginal bleeding. Another factor is the patient's morbid obesity which has an unopposed estrogen affect and can lead to extremes in uterine bleeding especially in light of anticoagulation. Would recommend using SCDs and Gaston hose for DVT prophylaxis over anticoagulants based on patient medical risks. Can consider using estrogen 25 mg IV q 6 x 3 doses with progesterone 10 mg TID x 3 to help with bleeding IF primary care team feel that her DVT risks are minimal. Progesterone 10mg TID is another option to help with bleeding and has a slightly lower risk of DVT. I discussed these options with BOGDAN Modi who indicated she would like to get the primary team's MD input before starting either of these options due to patient respiratory status. I would also recommend getting pelvic sono on patient to assess uterus for fibroids or other pathology. Thank you for the consult on this sweet patient.
--- NOTE | 2018-05-24 08:17 | PDOC PROGRESS REPORT ---
Subjective Progress Note for:: 05/23/18 Subjective:: Today the patient has multiple complaints. She is wearing her CPAP machine when I came in there because she is been having increased shortness of breath. She states she is having epigastric abdominal pain. She feels a little nauseated at times. She has had increased pain. At home she takes Percocet 10/325 every 6 hours. She has not been getting this year and she is having increased pain. She states that she is having continued vaginal bleeding that she is quite worried about. Overall she just is not feeling better at all. Reason For Visit: PNEUMONIA Physical Exam Vital Signs: Temp Pulse Resp BP Pulse Ox 98.9 F 92 20 126/31 H 100 05/23/18 16:00 05/23/18 19:00 05/23/18 16:00 05/23/18 16:00 05/23/18 16:00 Intake & Output 05/22/18 05/23/18 05/24/18 06:59 06:59 06:59 Intake Total 836 1097 782 Balance 836 1097 782 Weight 142.8 kg 143.2 kg General appearance: PRESENT: morbidly obese, other - She has her CPAP on and she looks as if she feels quite poorly Head exam: PRESENT: atraumatic, normocephalic Mouth exam: PRESENT: moist, tongue midline Respiratory exam: PRESENT: clear to auscultation syl. ABSENT: rales, rhonchi, wheezes Results Laboratory Results: 05/23/18 10:12 05/23/18 10:12 05/23/18 05/23/18 10:12 10:12 WBC 11.1 H RBC 3.79 Hgb 11.2 L Hct 34.0 L MCV 90 MCH 29.6 MCHC 33.0 RDW 15.3 H Plt Count 417 Seg Neutrophils % Not Reportable Lymphocytes % Not Reportable Monocytes % Not Reportable Eosinophils % Not Reportable Basophils % Not Reportable Absolute Neutrophils Not Reportable Absolute Lymphocytes Not Reportable Absolute Monocytes Not Reportable Absolute Eosinophils Not Reportable Absolute Basophils Not Reportable Sodium 138.1 Potassium 5.0 Chloride 99 Carbon Dioxide 29 Anion Gap 10 BUN 13 Creatinine 0.73 Est GFR ( Amer) > 60 Est GFR (Non-Af Amer) > 60 Glucose 112 H Calcium 9.0 Phosphorus 4.8 H Magnesium 2.7 H Total Bilirubin 0.4 AST 17 ALT 32 Alkaline Phosphatase 130 H Total Protein 6.9 Albumin 3.5 05/17/18 10:30 Sputum Fungal Smear - Final 05/17/18 10:30 Sputum Fungal Smear - Final 05/22/18 09:30 NT-Pro-B Natriuret Pep 36 Impressions: Chest X-Ray 05/15/18 08:42 IMPRESSION: Multifocal airspace disease, greatest within the right upper and left lower lobe, most compatible with multifocal pneumonia. Chest/Abdomen CTA 05/19/18 00:00 IMPRESSION: There are areas of patchy consolidation -nodularity and ground- glass opacity scattered throughout the right lung. Contrast Bolus timing not adequate for pulmonary arteries.No emboli visualized in the main pulmonary arteries. Bolus timing prevents evaluation of the segmental branches. Assessment and Plan - Diagnosis (1) Acute respiratory failure with hypoxia Is this a current diagnosis for this admission?: Yes (2) Multifocal pneumonia Is this a current diagnosis for this admission?: Yes (3) Acute asthma exacerbation Qualifiers: Asthma severity: moderate Asthma persistence: persistent Qualified Code(s): J45.41 - Moderate persistent asthma with (acute) exacerbation Is this a current diagnosis for this admission?: Yes (4) Obstructive sleep apnea Is this a current diagnosis for this admission?: Yes (5) Morbid obesity Is this a current diagnosis for this admission?: Yes (6) Vaginal bleeding Is this a current diagnosis for this admission?: Yes (7) Hyperglycemia Is this a current diagnosis for this admission?: Yes (8) Elevated liver function tests Is this a current diagnosis for this admission?: Yes (9) Anemia Is this a current diagnosis for this admission?: Yes (10) Full code status Is this a current diagnosis for this admission?: Yes
--- NOTE | 2018-05-24 09:35 | PDOC PROGRESS REPORT ---
Subjective Progress Note for:: 05/24/18 Subjective:: Patient seen resting in bed. She is awake, alert, oriented x3. She denies chest pain, shortness of breath or dyspnea at rest. She states she was still becomes dyspneic with minimal exertion. She denies any nausea, vomiting or abdominal pain. She has had some diarrhea overnight. She denies any this morning. She is still having vaginal bleeding. She was seen by the volleyball player yesterday afternoon, who ordered an ultrasound this morning. She denies any significant arthralgias or myalgias. Remaining review of systems are negative. Reason For Visit: PNEUMONIA Physical Exam Vital Signs: Temp Pulse Resp BP Pulse Ox 98.2 F 96 20 120/70 100 05/24/18 08:41 05/24/18 08:57 05/24/18 08:57 05/24/18 08:41 05/24/18 08:57 Intake & Output 05/23/18 05/24/18 05/25/18 06:59 06:59 06:59 Intake Total 1097 1574 Balance 1097 1574 Weight 143.2 kg 142.2 kg General appearance: PRESENT: no acute distress, morbidly obese, well-developed, well-nourished Head exam: PRESENT: atraumatic, normocephalic Eye exam: PRESENT: conjunctiva pink, EOMI, PERRLA. ABSENT: scleral icterus Ear exam: PRESENT: normal external ear exam Mouth exam: PRESENT: moist, tongue midline Neck exam: ABSENT: carotid bruit, JVD, lymphadenopathy, thyromegaly Respiratory exam: PRESENT: clear to auscultation syl, decreased breath sounds, prolonged expiratory phas, symmetrical, unlabored. ABSENT: rales, rhonchi, wheezes Cardiovascular exam: PRESENT: RRR. ABSENT: diastolic murmur, rubs, systolic murmur Pulses: PRESENT: normal dorsalis pedis pul Vascular exam: PRESENT: normal capillary refill GI/Abdominal exam: PRESENT: normal bowel sounds, soft. ABSENT: distended, guarding, mass, organolmegaly, rebound, tenderness Rectal exam: PRESENT: deferred Extremities exam: PRESENT: full ROM. ABSENT: calf tenderness, clubbing, pedal edema Musculoskeletal exam: PRESENT: ambulatory, full ROM Neurological exam: PRESENT: alert, awake, oriented to person, oriented to place, oriented to time, oriented to situation, CN II-XII grossly intact. ABSENT: motor sensory deficit Psychiatric exam: PRESENT: appropriate affect, normal mood. ABSENT: homicidal ideation, suicidal ideation Skin exam: PRESENT: dry, intact, warm. ABSENT: cyanosis, rash Results Laboratory Results: 05/23/18 10:12 05/23/18 10:12 05/23/18 05/23/18 10:12 10:12 WBC 11.1 H RBC 3.79 Hgb 11.2 L Hct 34.0 L MCV 90 MCH 29.6 MCHC 33.0 RDW 15.3 H Plt Count 417 Seg Neutrophils % Not Reportable Lymphocytes % Not Reportable Monocytes % Not Reportable Eosinophils % Not Reportable Basophils % Not Reportable Absolute Neutrophils Not Reportable Absolute Lymphocytes Not Reportable Absolute Monocytes Not Reportable Absolute Eosinophils Not Reportable Absolute Basophils Not Reportable Sodium 138.1 Potassium 5.0 Chloride 99 Carbon Dioxide 29 Anion Gap 10 BUN 13 Creatinine 0.73 Est GFR ( Amer) > 60 Est GFR (Non-Af Amer) > 60 Glucose 112 H Calcium 9.0 Phosphorus 4.8 H Magnesium 2.7 H Total Bilirubin 0.4 AST 17 ALT 32 Alkaline Phosphatase 130 H Total Protein 6.9 Albumin 3.5 05/17/18 10:30 Sputum Fungal Smear - Final 05/17/18 10:30 Sputum Fungal Smear - Final 05/22/18 09:30 NT-Pro-B Natriuret Pep 36 Impressions: Chest X-Ray 05/15/18 08:42 IMPRESSION: Multifocal airspace disease, greatest within the right upper and left lower lobe, most compatible with multifocal pneumonia. Chest/Abdomen CTA 05/19/18 00:00 IMPRESSION: There are areas of patchy consolidation -nodularity and ground- glass opacity scattered throughout the right lung. Contrast Bolus timing not adequate for pulmonary arteries.No emboli visualized in the main pulmonary arteries. Bolus timing prevents evaluation of the segmental branches. Assessment and Plan - Diagnosis (1) Acute asthma exacerbation Qualifiers: Asthma severity: moderate Asthma persistence: persistent Qualified Code(s): J45.41 - Moderate persistent asthma with (acute) exacerbation Is this a current diagnosis for this admission?: Yes Plan: Presently is no wheezing this morning. She is on tapering prednisone. Today is her last day of Levaquin. We will have respiratory therapist evaluate her for possible home oxygen requirements. Plan for discharge the next 24 hours. (2) Acute respiratory failure with hypoxia Is this a current diagnosis for this admission?: Yes Plan: Secondary to multifocal pneumonia. She also has underlying sleep apnea and I suspect she has obesity hypoventilation syndrome. She still is requiring oxygen at this point. Continue DuoNeb. We will have respiratory again evaluate her for possible home oxygen (3) Anemia Is this a current diagnosis for this admission?: Yes Plan: Hemoglobin is up to 11.1 today. She still having heavy vaginal bleeding. He moglobin was 9.[address] her on Provera 10 mg 3 times daily for the next 3 days per recommendation of Dr. Pinedo, volleyball player. Patient was encouraged to be out of bed and ambulate in the hallway. We can stop Lovenox. (4) Anxiety Is this a current diagnosis for this admission?: Yes Plan: Continue patient's home medications. (5) Diabetes type 2, controlled Qualifiers: Diabetes mellitus long-term insulin use: with termite control representative use Diabetes mellitus complication status: without complication Qualified Code(s): E11.9 - Type 2 diabetes mellitus without complications; Z79.4 - intermediate designer (current) use of insulin Is this a current diagnosis for this admission?: Yes Plan: We will start patient on sliding scale insulin fingerstick blood glucose. (6) Hyperglycemia Is this a current diagnosis for this admission?: Yes Plan: Secondary to steroids (7) Morbid obesity Is this a current diagnosis for this admission?: Yes (8) Obstructive sleep apnea Is this a current diagnosis for this admission?: Yes Plan: Continue CPAP (9) Vaginal bleeding Is this a current diagnosis for this admission?: Yes Plan: This began after she was started on prophylactic Lovenox. She has been on Depo- Medrol does not have normal periods. She was seen by Dr. Pinedo, volleyball player. She feels bleeding is most likely from Lovenox and that she is due for her Depo-Medrol injection. She is going to obtain vaginal ultrasound this morning. She recommended Provera 10 mg 3 times daily for the next 3 days. - Time Time Spent with patient: 25-34 minutes Total Critical Time (Minutes): 25 Medications reviewed and adjusted accordingly: Yes Anticipated discharge: Home Within: within 24 hours - Inpatient Certification Based on my medical assessment, after consideration of the patient's comorbidities, presenting symptoms, or acuity I expect that the services needed warrant INPATIENT care.: Yes I certify that my determination is in accordance with my understanding of Medicare's requirements for reasonable and necessary INPATIENT services [42 CFR 412.3e].: Yes Medical Necessity: Failure to Improve With Outpatient Therapy, Significant Comorbidiites Make Outpatient Treatment Too Risky, Risk of Complication if Not Cared For in Hospital
[2018-05-24] MEDS: BENZTROPINE MESYLATE 1 MG TABLET PO SCH ×2 (10:14→22:15)
[2018-05-24] MEDS: METFORMIN HCL 500 MG TABLET PO SCH ×2 (10:15→15:44)
[2018-05-24] MEDS: PANTOPRAZOLE SODIUM 20 MG TABLET.DR PO SCH (10:15)
[2018-05-24] MEDS: LACTOBACILLUS ACIDOPHILUS 250 MG TAB PO SCH ×2 (10:15→18:49)
[2018-05-24] MEDS: GABAPENTIN 400 MG CAPSULE PO SCH ×3 (10:15→18:49)
[2018-05-24] MEDS: FLUTICASONE/VILANTEROL 200-25 MCG/DOSE IH SCH (10:16)
[2018-05-24] MEDS: MEDROXYPROGESTERONE ACET 10 MG TABLET PO SCH ×3 (10:16→18:49)
[2018-05-24] MEDS: INSULIN REG, HUMAN 100 UNIT/ML 3 ML VIAL (PYX) SUBCUT SCH ×4 (10:17→22:14)
--- NOTE | 2018-05-24 11:13 | RADIOLOGY REPORT (SQ) ---
EXAM DESCRIPTION: U/S NON-OB PELVIS TV W/O DOP COMPLETED DATE/TIME: 05/24/2018 10:11 am REASON FOR STUDY: vaginal bleeding COMPARISON: Pelvic ultrasound 04/07/2016, 12/10/2016, 01/07/2017 TECHNIQUE: Dynamic and static grayscale images acquired of the pelvis via transvaginal approach and recorded on PACS. Additional selected color Doppler and spectral images recorded. LIMITATIONS: None. FINDINGS: UTERUS: Uterus is 8 x 5 x 4.5 cm in size. Along the lower uterine segment, there is a wel l-circumscribed hypoechoic fibroid abutting the endometrial stripe. This fibroid measures 2.5 x 1.7 cm in size, similar compared to 01/07/2017. ENDOMETRIAL STRIPE: 6 mm in thickness CERVIX: No nabothian cysts. Closed, 3 cm in length. RIGHT OVARY AND DOPPLER: Normal size, 2.7 x 2 x 2.5 cm in size. No worrisome masses. Normal arterial vascular flow without evidence for torsion. LEFT OVARY AND DOPPLER: Normal size, 2.9 x 2.6 x 1.4 cm in size. No worrisome masses. Normal arterial vascular flow without evidence for torsion. FREE FLUID: None noted. OTHER: No other significant finding. IMPRESSION: 2.5 cm anterior lower uterine segment fibroid, stable. Otherwise unremarkable transvaginal pelvic ultrasound TECHNICAL DOCUMENTATION: JOB ID: [id number] 1954[employer]- All Rights Reserved Rev Reading location - IP/workstation name: [email or web address]
[2018-05-24] MEDS: OXYCODONE HCL IR 5 MG TABLET PO PRN (12:33)
[2018-05-24] MEDS: HYDROXYZINE PAMOATE 50 MG CAPSULE PO PRN (22:15)
[2018-05-25] MEDS: OXYCODONE HCL IR 5 MG TABLET PO PRN ×2 (00:09→08:56)
[2018-05-25] MEDS: ALBUTEROL SULFATE 0.083% NEB 2.5 MG/3 ML AMPUL NEB SCH ×5 (01:01→16:02)
[2018-05-25 05:28] LABS: ABSOLUTE BASOPHILS # (AUTO) 0.1 10^3/uL (0.0-0.2); ABSOLUTE EOSINOPHILS # (AUTO) 0.2 10^3/uL (0.0-0.6); ABSOLUTE LYMPHOCYTES (AUTO) 3.3 10^3/uL (0.5-4.7); ABSOLUTE MONOCYTES (AUTO) 0.7 10^3/uL (0.1-1.4); ABSOLUTE NEUT (AUTO) 7.9 10^3/uL (1.7-8.2); ABSOLUTE RETICS # 0.131 10^6/uL (0.028-0.122); BASOPHILS % (AUTO) 0.9 % (0-2); EOSINOPHILS % (AUTO) 1.9 % (0-6); HEMATOCRIT 32.8 % (36.0-47.0); HEMOGLOBIN 10.6 g/dL (12.0-15.5); LYMPHOCYTES % (AUTO) 27.1 % (13-45); MEAN CORPUSCULAR HGB CONC 32.3 g/dL (32.0-36.0); MEAN CORPUSCULAR VOLUME 90 fl (80-97); MONOCYTES % (AUTO) 5.4 % (3-13); PLATELET COUNT 384 10^3/uL (150-450); RED BLOOD COUNT 3.66 10^6/uL (3.72-5.28); RED CELL DISTRIBUTION WIDTH 15.2 % (11.5-14.0); RETICULOCYTE COUNT (AUTO) 3.57 % (0.66-2.85); SEGMENTED NEUTROPHILS % (AUTO) 64.7 % (42-78); TOTAL CELLS COUNTED % (AUTO) 100 %; WHITE BLOOD COUNT 12.2 10^3/uL (4.0-10.5)
[2018-05-25 05:50] LABS: IRON(TIBC) 40.6 ug/dL (37-170)
[2018-05-25 06:57] LABS: FOLATE 5.13 ng/mL (>2.76)
[2018-05-25] MEDS: INSULIN REG, HUMAN 100 UNIT/ML 3 ML VIAL (PYX) SUBCUT SCH ×2 (08:31→11:30)
[2018-05-25] MEDS: METFORMIN HCL 500 MG TABLET PO SCH ×2 (08:43→15:12)
[2018-05-25] MEDS: MEDROXYPROGESTERONE ACET 10 MG TABLET PO SCH (11:34)
[2018-05-25] MEDS: HYDROXYZINE PAMOATE 50 MG CAPSULE PO PRN (11:34)
[2018-05-25] MEDS: LACTOBACILLUS ACIDOPHILUS 250 MG TAB PO SCH (11:35)
[2018-05-25] MEDS: GABAPENTIN 400 MG CAPSULE PO SCH ×2 (11:35→15:12)
[2018-05-25] MEDS: PANTOPRAZOLE SODIUM 20 MG TABLET.DR PO SCH (11:35)
[2018-05-25] MEDS: BENZTROPINE MESYLATE 1 MG TABLET PO SCH (11:36)
[2018-05-25 12:34] VITALS: BP 117/48
--- NOTE | 2018-05-31 18:01 | PDOC DISCHARGE SUMMARY ---
General - Admit/Disc Date/PCP Admission Date/Primary Care Provider: 05/15/18 15:52 [facility] Discharge Date: 05/25/18 - Discharge Diagnosis (1) Acute asthma exacerbation Is this a current diagnosis for this admission?: Yes (2) Acute respiratory failure with hypoxia Is this a current diagnosis for this admission?: Yes (3) Anemia Is this a current diagnosis for this admission?: Yes (4) Anxiety Is this a current diagnosis for this admission?: Yes (5) Diabetes type 2, controlled Is this a current diagnosis for this admission?: Yes (6) Hyperglycemia Is this a current diagnosis for this admission?: Yes (7) Morbid obesity Is this a current diagnosis for this admission?: Yes (8) Obstructive sleep apnea Is this a current diagnosis for this admission?: Yes (9) Vaginal bleeding Is this a current diagnosis for this admission?: Yes - Additional Information Resuscitation Status: Full Code Discharge Activity: Activity As Tolerated, Balance Activity w/Rest Prescriptions: Medroxyprogesterone Acet [Provera 10 mg Tablet] 10 mg PO TID #4 tablet Medroxyprogesterone Acetate [Provera] 10 mg PO TID #4 tablet Home Medications: Fluticasone Propionate [Flonase Nasal [place] 50 Mcg/[place] 16 gm] 2 sprays NASL Q12 PRN 01/07/17 Albuterol Sulfate [Proair HFA] 2 puff IH Q4 PRN 06/03/17 Hydroxyzine HCl 50 mg PO Q8HP PRN #10 tablet 06/03/17 Oxycodone HCl/Acetaminophen [Oxycodone-Acetaminophen 10-325] 1 tab PO Q6HP PRN 06/03/17 Omeprazole Magnesium [Prilosec Otc] 20 mg PO BID #40 tablet. 06/29/17 Benztropine Mesylate [Benztropine Mesylate 0.5 mg Tablet] 0.5 mg PO Q12 05/15/18 Budesonide/Formoterol Fumarate [Symbicort HFA 80-4.5 mcg Inhaler 6.9 gm] 2 puff IH Q12 05/15/18 Ferrous Sulfate [Iron] 325 mg PO DAILY 05/15/18 Gabapentin [Neurontin 300 mg Capsule] 600 mg PO Q8 05/15/18 Metformin HCl [Metformin HCl ER] 500 mg PO DAILY 05/15/18 Prazosin HCl [Minipress] 1 mg PO QHS 05/15/18 Sucralfate [Carafate 1 gm Tablet] 1 gm PO ACHS PRN 05/15/18 Venlafaxine HCl [Venlafaxine HCl ER] 37.5 mg PO DAILY 05/15/18 Medroxyprogesterone Acet [Provera 10 mg Tablet] 10 mg PO TID #4 tablet 05/25/18 Medroxyprogesterone Acetate [Provera] 10 mg PO TID #4 tablet 05/25/18 History of Present Illness Patient complains of: Shortness of breath and cough History of Present Illness: SARAHI ST is a 33 year old female presents to the ER with a 3-day history of worsening shortness of breath. States she developed a cough she has had some fever and chills. And she is been getting worse over the last couple of days she denies anyone else in the house being sick recently. Been using her albuterol several times a night for the past 2 days. She also states to having a decreased appetite. Is not check her blood sugars on a regular basis. But she has been urinating more than usual. Upon evaluation in the ER she was found to have bilateral pneumonia of the apices. She has not required oxygen at this time but she has been tachypneic and tachycardic. Physical Exam Vital Signs: Temp Pulse Resp BP Pulse Ox 98.3 F 105 H 20 110/40 L 97 05/25/18 07:54 05/25/18 07:54 05/25/18 07:54 05/25/18 07:54 05/25/18 07:54 Intake & Output 05/24/18 05/25/18 05/26/18 06:59 06:59 06:59 Intake Total 1574 591 Balance 1574 591 Weight 142.2 kg 142 kg General appearance: PRESENT: no acute distress, morbidly obese, well-developed, well-nourished Head exam: PRESENT: atraumatic, normocephalic Eye exam: PRESENT: conjunctiva pink, EOMI, PERRLA. ABSENT: scleral icterus Ear exam: PRESENT: normal external ear exam Mouth exam: PRESENT: moist, tongue midline Neck exam: ABSENT: carotid bruit, JVD, lymphadenopathy, thyromegaly Respiratory exam: PRESENT: rhonchi, symmetrical, unlabored Cardiovascular exam: PRESENT: RRR. ABSENT: diastolic murmur, rubs, systolic murmur Pulses: PRESENT: normal dorsalis pedis pul Vascular exam: PRESENT: normal capillary refill GI/Abdominal exam: PRESENT: normal bowel sounds, soft. ABSENT: distended, guarding, mass, organolmegaly, rebound, tenderness Rectal exam: PRESENT: deferred Extremities exam: PRESENT: full ROM. ABSENT: calf tenderness, clubbing, pedal edema Neurological exam: PRESENT: alert, awake, oriented to person, oriented to place, oriented to time, oriented to situation, CN II-XII grossly intact. ABSENT: motor sensory deficit Psychiatric exam: PRESENT: appropriate affect, normal mood. ABSENT: homicidal ideation, suicidal ideation Skin exam: PRESENT: dry, intact, warm. ABSENT: cyanosis, rash Results Laboratory Results: 05/25/18 05:15 05/23/18 10:12 05/25/18 05/25/18 05:15 05:15 WBC 12.2 H RBC 3.66 L Hgb 10.6 L Hct 32.8 L MCV 90 MCH 29.0 MCHC 32.3 RDW 15.2 H Plt Count 384 Seg Neutrophils % 64.7 Lymphocytes % 27.1 Monocytes % 5.4 Eosinophils % 1.9 Basophils % 0.9 Absolute Neutrophils 7.9 Absolute Lymphocytes 3.3 Absolute Monocytes 0.7 Absolute Eosinophils 0.2 Absolute Basophils 0.1 Retic Count (auto) 3.57 H Absolute Retic 0.131 H Iron 40.6 TIBC 254 % Saturation 16 Ferritin 58.10 Vitamin B12 319.0 Folate 5.13 05/22/18 09:30 NT-Pro-B Natriuret Pep 36 Impressions: Chest X-Ray 05/15/18 08:42 IMPRESSION: Multifocal airspace disease, greatest within the right upper and left lower lobe, most compatible with multifocal pneumonia. Chest/Abdomen CTA 05/19/18 00:00 IMPRESSION: There are areas of patchy consolidation -nodularity and ground- glass opacity scattered throughout the right lung. Contrast Bolus timing not adequate for pulmonary arteries.No emboli visualized in the main pulmonary arteries. Bolus timing prevents evaluation of the segmental branches. Transvaginal US 05/24/18 00:00 IMPRESSION: 2.5 cm anterior lower uterine segment fibroid, stable. Otherwise unremarkable transvaginal pelvic ultrasound Qualifiers - * PATIENT BEING DISCHARGED WITH ANY OF THE FOLLOWING DIAGNOSIS: No Plan Discharge Plan: Home with family
== END 2018-05-25 16:44 | disposition home or self-care (01) | DRG 193 ==
LOC: ER 08:00 → INTOOBSV 11:50 → EH 11:50 → OBSVTOIN 15:52 → 4S 16:32
PROVIDERS: ADMIT Hospitalist; ATTEND Internal Medicine
PROC: 3E0234Z Introduction of Serum, Toxoid and Vaccine into Muscle, Percutaneous Approach (ICD-10-PCS; principal; 2018-05-25)
DX: J18.9 Pneumonia, unspecified organism (principal); J96.01 Acute respiratory failure with hypoxia; J45.41 Moderate persistent asthma with (acute) exacerbation; Z68.43 Body mass index [BMI] 50.0-59.9, adult; E11.8 Type 2 diabetes mellitus with unspecified complications; K21.9 Gastro-esophageal reflux disease without esophagitis; D64.9 Anemia, unspecified; N93.9 Abnormal uterine and vaginal bleeding, unspecified; R74.8 Abnormal levels of other serum enzymes; F90.9 Attention-deficit hyperactivity disorder, unspecified type; F41.9 Anxiety disorder, unspecified; G47.33 Obstructive sleep apnea (adult) (pediatric); E66.01 Morbid (severe) obesity due to excess calories; Z23 Encounter for immunization; Z79.84 Long term (current) use of oral hypoglycemic drugs; Z79.51 Long term (current) use of inhaled steroids; Z79.899 Other long term (current) drug therapy; Z87.891 Personal history of nicotine dependence
CPT/HCPCS: 36415; 71046; 71275; 76830; 80048; 80053; 80069; 80076; 81001; 81025; 82607; 82728; 82746; 82803; 82962; 83540; 83550; 83605; 83735; 83880; 84703; 85025; 85027; 85045; 85610; 87040; 87070; 87086; 87101; 87205; 87804; 90471; 90686; 93005; 93010; 93306; 94640; 96365; 96367; 96372; 99291; G0008; G0378; J0456; J0696; J1650; J1815; J1885; J1956; J2930; J3490; J7030; J7060; J7512; J7620

== ENCOUNTER 2018-05-30 11:44 | Emergency (ER) | payer OTHER ==
[2018-05-30 12:16] LABS: ABSOLUTE BASOPHILS # (AUTO) 0.1 10^3/uL (0.0-0.2); ABSOLUTE EOSINOPHILS # (AUTO) 0.2 10^3/uL (0.0-0.6); ABSOLUTE LYMPHOCYTES (AUTO) 2.4 10^3/uL (0.5-4.7); ABSOLUTE MONOCYTES (AUTO) 0.6 10^3/uL (0.1-1.4); ABSOLUTE NEUT (AUTO) 6.4 10^3/uL (1.7-8.2); BASOPHILS % (AUTO) 1.1 % (0-2); EOSINOPHILS % (AUTO) 1.7 % (0-6); HEMATOCRIT 33.1 % (36.0-47.0); HEMOGLOBIN 10.8 g/dL (12.0-15.5); LYMPHOCYTES % (AUTO) 24.9 % (13-45); MEAN CORPUSCULAR HEMOGLOBIN 29.5 pg (27.0-33.4); MEAN CORPUSCULAR HGB CONC 32.8 g/dL (32.0-36.0); MEAN CORPUSCULAR VOLUME 90 fl (80-97); MONOCYTES % (AUTO) 6.3 % (3-13); PLATELET COUNT 374 10^3/uL (150-450); RED BLOOD COUNT 3.68 10^6/uL (3.72-5.28); RED CELL DISTRIBUTION WIDTH 15.1 % (11.5-14.0); TOTAL CELLS COUNTED % (AUTO) 100 %; WHITE BLOOD COUNT 9.8 10^3/uL (4.0-10.5)
--- NOTE | 2018-05-30 12:22 | ER Document Report ---
ED Respiratory Problem - General Chief Complaint: Breathing Difficulty Stated Complaint: DIFFICULTY BREATHING Time Seen by Provider: 05/30/18 11:57 Primary Care Provider: [facility] [NO LOCAL MD] - Follow up as needed Mode of Arrival: Ambulatory Information source: Patient, Relative, [facility] Records Notes: This 33-year-old female patient comes emergency room complaining of difficulty breathing for the past 2 days. She was admitted here from 05/05/2018 through 05/25/2018 for bilateral multifocal upper lobe pneumonia. Reviewing the chart and her lab work, her sputum grew only [place] species. The only additional prescription she received a discharge was a short course of Provera for dysfunctional uterine bleeding. TRAVEL OUTSIDE OF THE [place] IN LAST 30 DAYS: No - Related Data Allergies/Adverse Reactions: amoxicillin [Amoxicillin] Allergy (Verified 05/30/18 11:45) benzonatate [From Tessalon Perles] Allergy (Verified 05/30/18 11:45) iloperidone [From Fanapt] Allergy (Verified 05/30/18 11:45) Penicillins Allergy (Verified 05/30/18 11:45) Past Medical History - General Information source: Patient, Relative, [facility] Records - Social History Smoking Status: Unknown if Ever Smoked Cigarette use (# per day): No Chew tobacco use (# tins/day): No Smoking Education Provided: No Frequency of alcohol use: None Drug Abuse: None Lives with: Parents Family History: DM, Hypertension, Other - Brother with blood clots, mother with hysterectomy - Past Medical History Cardiac Medical History: Reports: Hx Hypertension Pulmonary Medical History: Reports: Hx Asthma, Hx Sleep Apnea Endocrine Medical History: Reports: Hx Diabetes Mellitus Type 2 Renal/ Medical History: Reports: Hx Ovarian Cysts GI Medical History: Reports: Hx Gastroesophageal Reflux Disease, Hx Ulcer Psychiatric Medical History: Reports: Hx Anxiety, Hx Attention Deficit H yperactivity Disorder, Hx Bipolar Disorder, Hx Depression Past Surgical History: Reports: Hx Adenoidectomy, Hx Gynecologic Surgery - R ovarian cyst 2010 Uterine fibroid removal 2009 in [place]., Hx Tonsillectomy - Immunizations Hx Diphtheria, Pertussis, Tetanus Vaccination: Yes - 06/2011 Review of Systems - Review of Systems Constitutional: Weakness EENT: No symptoms reported Cardiovascular: No symptoms reported Respiratory: Cough, Short of breath Gastrointestinal: No symptoms reported Genitourinary: No symptoms reported Female Genitourinary: See HPI - Patient reports the bleeding improved after taking Provera. Musculoskeletal: No symptoms reported Skin: No symptoms reported Hematologic/Lymphatic: No symptoms reported Neurological/Psychological: No symptoms reported Physical Exam - Vital signs Vitals: Temp Pulse Resp BP Pulse Ox 99.2 F 113 H 18 143/80 H 94 05/30/18 11:47 05/30/18 11:47 05/30/18 11:47 05/30/18 11:47 05/30/18 11:47 - General General appearance: Appears well, Alert In distress: None - Patient is laying on the stretcher semirecumbent. She is morbidly obese with a BMI over 64 kg/m. At rest her pulse ox is 100%. - HEENT Head: Normocephalic, Atraumatic Eyes: Normal Pupils: PERRL Neck: Normal - Respiratory Respiratory status: No respiratory distress Breath sounds: Normal - Cardiovascular Rhythm: Regular Heart sounds: Normal auscultation Murmur: No - Abdominal Inspection: Morbidly Obese Bowel sounds: Normal Tenderness: Nontender - Back Back: Normal - Extremities General upper extremity: Normal inspection General lower extremity: Edema - Trace pitting edema to the lower extremities. - Neurological Neuro grossly intact: Yes - Psychological Associated symptoms: Normal affect, Normal mood - Skin Skin Temperature: Warm Skin Moisture: Dry Skin Color: Normal Course - Re-evaluation Re-evalutation: 05/30/18 13:43 The patient walked to the restroom to collect a urine specimen. When she walked back from the restroom, she was immediately connected to the pulse oximetry with a reading of 98% on room air. The lab work is unremarkable other than a urine which is quite concentrated. - Vital Signs Vital signs: Temp Pulse Resp BP Pulse Ox 99.2 F 113 H 20 143/80 H 98 05/30/18 11:47 05/30/18 11:47 05/30/18 12:01 05/30/18 11:47 05/30/18 12:01 - Laboratory Result Diagrams: 05/30/18 12:06 05/30/18 12:06 Laboratory results interpreted by me: 05/30/18 05/30/18 05/30/18 12:06 12:06 12:44 RBC 3.68 L Hgb 10.8 L Hct 33.1 L RDW 15.1 H Chloride 108 H Alkaline Phosphatase 136 H Urine Urobilinogen 2.0 H - Diagnostic Test Radiology reviewed: Image reviewed, Reports reviewed - X-ray does not show any acute abnormality, does show the previous multifocal infiltrates to have cleared. Discharge - Discharge Clinical Impression: Shortness of breath, Anxiety Condition: Stable Disposition: HOME, SELF-CARE Additional Instructions: Dyspnea, Nonspecific You were evaluated for shortness of breath, or dyspnea. Dyspnea has many causes, and some are more serious than others. Sometimes it's impossible to diagnose the cause of dyspnea with the tests that are available on an emergency basis. Based on our evaluation today, you do not need hospitalization now. We found no evidence of pneumonia, collapsed lung, blood clots in the lung, tumors, or heart failure. Causes of non-specific dyspnea can include asthma or bronchospasm, hyperventilation, emotional distress, heart disease, emphysema, fibrosis of the lung, and stiffness of the chest wall. In healthy individuals with a single episode, it's sometimes reasonable to do nothing but wait to see if the problem occurs again. Additional tests used to evaluate dyspnea can include cardiac stress testing, echocardiography, pulmonary function testing, CAT scan of the chest, bronchoscopy or pulmonary biopsy. Return if shortness of breath persists or worsens, or if you develop chest pain, fever, cough, confusion, or fainting. Anxiety The physician feels that some of your health problems are being caused by anxiety. Anxiety affects your health in many ways. Anxiety alone can cause palpitations, sweats, chest pains, abdominal pains, shortness of breath, and headaches. It contributes to ulcer disease, high blood pressure, irritable bowel syndrome, and has been shown to cause flare-ups of many other diseases. Anxiety is not a simple disorder to treat. If the anxiety is due to recent life stresses, you may simply need time to "work through" the changes. If the anxiety is due to an underlying unhappiness with yourself or due to psychiatric disturbance, professional help will be needed. Your physician can refer you for further help if needed. Anti-anxiety medication is occasionally given if the stress is acute or if you are having trouble sleeping. Chronic or frequent use of these medications is not a good idea because the body becomes reliant on it, preventing you from dealing with life's normal stresses. No explanation for your sensation of being short of breath was found. With negative workups such as today, we find the symptoms are often due to anxiety. Your urine was quite concentrated, so you should drink a lot more water than what you have been doing. Continue your regular medications. Follow-up with your primary care provider if not improving. RETURN TO THE EMERGENCY ROOM IF ANY NEW OR WORSENING SYMPTOMS. [facility]errals: [facility] [NO LOCAL MD] - Follow up as needed
[2018-05-30 12:33] LABS: ALANINE AMINOTRANSFERASE 44 U/L (9-52); ALBUMIN 3.6 g/dL (3.5-5.0); ALKALINE PHOSPHATASE 136 U/L (38-126); ANION GAP 5 (5-19); ASPARTATE AMINO TRANSFERASE 31 U/L (14-36); BILIRUBIN,DIRECT 0.3 mg/dL (0.0-0.4); BILIRUBIN,TOTAL 0.6 mg/dL (0.2-1.3); BLOOD UREA NITROGEN 12 mg/dL (7-20); CALCIUM 9.3 mg/dL (8.4-10.2); CARBON DIOXIDE 26 mmol/L (22-30); CHLORIDE 108 mmol/L (98-107); GLUCOSE 100 mg/dL (75-110); POTASSIUM 4.4 mmol/L (3.6-5.0); SODIUM 139.2 mmol/L (137-145)
--- NOTE | 2018-05-30 12:35 | RADIOLOGY REPORT (SQ) ---
EXAM DESCRIPTION: CHEST 2 VIEWS COMPLETED DATE/TIME: 05/30/2018 12:25 pm REASON FOR STUDY: SOB X2 days, discharged from hospital 4 days ago COMPARISON: 05/15/2018 EXAM PARAMETERS: NUMBER OF VIEWS: two views TECHNIQUE: Digital Frontal and Lateral radiographic views of the chest acquired. RADIATION DOSE: NA LIMITATIONS: none FINDINGS: LUNGS AND PLEURA: No opacities, masses or pneumothorax. No pleural effusion. MEDIASTINUM AND HILAR STRUCTURES: No masses or contour abnormalities. HEART AND VASCULAR STRUCTURES: Heart normal size. No evidence for failure. BONES: No acute findings. HARDWARE: None in the chest. OTHER: No other significant finding. IMPRESSION: No acute abnormality of the lungs. No focal airspace opacity. TECHNICAL DOCUMENTATION: JOB ID: [id number] [employer]- All Rights Reserved Reading location - IP/workstation name: [email or web address]
[2018-05-30 13:10] LABS: APPEARANCE,URINE SLIGHTLY-CLOUDY; BILIRUBIN,URINE NEGATIVE (NEGATIVE); COLOR,URINE DARK YELLOW; GLUCOSE, URINE NEGATIVE (NEGATIVE); KETONES,URINE NEGATIVE (NEGATIVE); LEUKOCYTE ESTERASE,URINE NEGATIVE (NEGATIVE); NITRITE,URINE NEGATIVE (NEGATIVE); PROTEIN,URINE NEGATIVE (NEGATIVE); URINE SPECIFIC GRAVITY 1.031
[2018-05-30 14:17] LABS: CREATINE KINASE 83 U/L (30-135)
[2018-05-30 15:56] VITALS: BP 128/84
== END 2018-05-30 16:03 | disposition home or self-care (01) ==
LOC: ER 11:44
DX: R06.02 Shortness of breath (principal); F41.9 Anxiety disorder, unspecified; E66.01 Morbid (severe) obesity due to excess calories; R60.0 Localized edema; R53.1 Weakness; R05 Cough; I10 Essential (primary) hypertension; E11.9 Type 2 diabetes mellitus without complications; Z88.0 Allergy status to penicillin; Z88.8 Allergy status to other drugs, medicaments and biological substances; Z87.01 Personal history of pneumonia (recurrent)
CPT/HCPCS: 36415; 71046; 80053; 81001; 82550; 84484; 85025; 85379; 99285

== ENCOUNTER 2018-06-11 16:36 | Emergency (ER) | payer OTHER ==
[2018-06-11] MEDS ORDERED: ASPIRIN 81 MG TABLET, CHEWABLE PO ONE (16:42)
[2018-06-11] MEDS ORDERED: IPRATROPIUM/ALBUTEROL 0.5-2.5 MG/3 ML AMPUL NEB ONE ×2 (16:43→19:49)
--- NOTE | 2018-06-11 16:45 | ER Document Report ---
ED Medical Screen (RME) - General Chief Complaint: Shortness Of Breath Stated Complaint: DIFFICULTY BREATHING/HEADACHE/VOMITING/DIARRHEA Time Seen by Provider: 06/11/18 16:40 TRAVEL OUTSIDE OF THE [place] IN LAST 30 DAYS: No - HPI Patient complains to provider of: SOB, N/V/D Notes: 06/11/18 16:43 PT HERE WITH SOB, CP, N/V/D. WAS ADMITTED FOR BILATERAL PNEUMONIA LAST MONTH. NO ATB NO. HX OF ASTHMA. NON SMOKER. EXAM NO DISTRESS, DIMINISHED LUNG SOUNDS THROUGHOUT. PLAN EKG, LABS, CXR, DUO NEBS An initial examination was made on the patient as part of the triage process, and it was determined a more comprehensive evaluation was necessary. Initial labs were ordered and patient was transferred to another provider in the ED who assumed care and finished evaluation and plan. - Related Data Allergies/Adverse Reactions: amoxicillin [Amoxicillin] Allergy (Verified 06/11/18 16:40) benzonatate [From Tessalon Perles] Allergy (Verified 06/11/18 16:40) iloperidone [From Fanapt] Allergy (Verified 06/11/18 16:40) Penicillins Allergy (Verified 06/11/18 16:40) Past Medical History - Social History Family history: None - Past Medical History Cardiac Medical History: Reports: Hx Hypertension Pulmonary Medical History: Reports: Hx Asthma, Hx Sleep Apnea Endocrine Medical History: Reports: Hx Diabetes Mellitus Type 2 Renal/ Medical History: Reports: Hx Ovarian Cysts. Denies: Hx Peritoneal Dialysis GI Medical History: Reports: Hx Gastroesophageal Reflux Disease, Hx Ulcer Psychiatric Medical History: Reports: Hx Anxiety, Hx Attention Deficit Hyperactivity Disorder, Hx Bipolar Disorder, Hx Depression Past Surgical History: Reports: Hx Adenoidectomy, Hx Gynecologic Surgery - R ovarian cyst 2010 Uterine fibroid removal 2009 in [place]., Hx Tonsillectomy - Immunizations Hx Diphtheria, Pertussis, Tetanus Vaccination: Yes - 06/2011 History of Influenza Vaccine for 11/2016 - 04/2017 Season: Refused
--- NOTE | 2018-06-11 17:05 | RADIOLOGY REPORT (SQ) ---
EXAM DESCRIPTION: CHEST SINGLE VIEW COMPLETED DATE/TIME: 06/11/2018 4:57 pm REASON FOR STUDY: CP SOB COMPARISON: 05/30/2018 EXAM PARAMETERS: NUMBER OF VIEWS: One view. TECHNIQUE: Single frontal radiographic view of the chest acquired. RADIATION DOSE: NA LIMITATIONS: None. FINDINGS: LUNGS AND PLEURA: No opacities, masses or pneumothorax. No pleural effusion. MEDIASTINUM AND HILAR STRUCTURES: No masses. Contour normal. HEART AND VASCULAR STRUCTURES: Heart normal in size. Normal vasculature. BONES: No acute findings. HARDWARE: None in the chest. OTHER: No other significant finding. IMPRESSION: NO ACUTE RADIOGRAPHIC FINDING IN THE CHEST. TECHNICAL DOCUMENTATION: JOB ID: [id number] [employer]- All Rights Reserved Reading location - IP/workstation name: [email or web address]
[2018-06-11 18:55] LABS: ABSOLUTE EOSINOPHILS # (AUTO) 0.5 10^3/uL (0.0-0.6); ABSOLUTE LYMPHOCYTES (AUTO) 2.4 10^3/uL (0.5-4.7); ABSOLUTE MONOCYTES (AUTO) 0.6 10^3/uL (0.1-1.4); ABSOLUTE NEUT (AUTO) 7.1 10^3/uL (1.7-8.2); BASOPHILS % (AUTO) 0.3 % (0-2); EOSINOPHILS % (AUTO) 4.4 % (0-6); HEMATOCRIT 35.1 % (36.0-47.0); HEMOGLOBIN 11.5 g/dL (12.0-15.5); LYMPHOCYTES % (AUTO) 22.6 % (13-45); MEAN CORPUSCULAR HEMOGLOBIN 29.7 pg (27.0-33.4); MEAN CORPUSCULAR HGB CONC 32.8 g/dL (32.0-36.0); MEAN CORPUSCULAR VOLUME 91 fl (80-97); MONOCYTES % (AUTO) 5.4 % (3-13); PLATELET COUNT 439 10^3/uL (150-450); RED BLOOD COUNT 3.88 10^6/uL (3.72-5.28); RED CELL DISTRIBUTION WIDTH 15.3 % (11.5-14.0); SEGMENTED NEUTROPHILS % (AUTO) 67.3 % (42-78); TOTAL CELLS COUNTED % (AUTO) 100 %; WHITE BLOOD COUNT 10.6 10^3/uL (4.0-10.5)
[2018-06-11 19:13] LABS: ALANINE AMINOTRANSFERASE 24 U/L (9-52); ALBUMIN 3.9 g/dL (3.5-5.0); ALKALINE PHOSPHATASE 125 U/L (38-126); ASPARTATE AMINO TRANSFERASE 27 U/L (14-36); BILIRUBIN,DIRECT 0.2 mg/dL (0.0-0.4); BILIRUBIN,TOTAL 0.4 mg/dL (0.2-1.3); BLOOD UREA NITROGEN 8 mg/dL (7-20); CALCIUM 9.7 mg/dL (8.4-10.2); CHLORIDE 103 mmol/L (98-107); CREATINE KINASE 93 U/L (30-135); GLUCOSE 95 mg/dL (75-110); POTASSIUM 4.7 mmol/L (3.6-5.0); SODIUM 137.2 mmol/L (137-145); TOTAL PROTEIN 7.6 g/dL (6.3-8.2)
[2018-06-11 19:22] LABS: CREATINE KINASE MB 0.97 ng/mL (<4.55)
[2018-06-11 19:26] LABS: TROPONIN I < 0.012 ng/mL
[2018-06-11 19:27] LABS: ANION GAP 6 (5-19); CARBON DIOXIDE 28 mmol/L (22-30)
--- NOTE | 2018-06-11 20:04 | EKG REPORT ---
SEVERITY:- NORMAL ECG - SINUS RHYTHM : Confirmed by: Aleah Arndt MD 11-Jun-2018 20:03:09
[2018-06-11] MEDS ORDERED: ACETAMINOPHEN 325 MG TABLET PO ONE (20:41)
--- NOTE | 2018-06-11 22:22 | ER Document Report ---
ED General - General Chief Complaint: Shortness Of Breath Stated Complaint: DIFFICULTY BREATHING/HEADACHE/VOMITING/DIARRHEA Time Seen by Provider: 06/11/18 16:40 Primary Care Provider: [facility] [Primary Care Provider] - Follow up tomorrow Notes: Patient is a 33-year-old female presents with complaint of recurrent says difficulty breathing. She says over a month ago she was diagnosed with pneumonia. She was treated and released. She came back approximately 2 weeks ago she was still having episodes of feeling short of breath and not back to normal. At that time her workup was negative. She says she still having intermittent episodes of wheezing and still feels as if she is more short of breath and she should be. She denies any current fevers. She denies any vomiting. She denies history of PE or DVT. She says she has had some body aches. She says she will occasionally get headache. She does take oxycodone for chronic back pain. She does use breathing treatments at home which she says does not always take away her difficulty breathing but sometimes does. She does feel that she has been wheezing at home. TRAVEL OUTSIDE OF THE [place] IN LAST 30 DAYS: No - Related Data Allergies/Adverse Reactions: amoxicillin [Amoxicillin] Allergy (Verified 06/11/18 22:45) benzonatate [From Tessalon Perles] Allergy (Verified 06/11/18 22:45) iloperidone [From Fanapt] Allergy (Verified 06/11/18 22:45) Penicillins Allergy (Verified 06/11/18 22:45) Past Medical History - Social History Smoking Status: Never Smoker Frequency of alcohol use: None Drug Abuse: None Family History: DM, Hypertension, Other - Brother with blood clots, mother with hysterectomy Patient has suicidal ideation: No Patient has homicidal ideation: No - Past Medical History Cardiac Medical History: Reports: Hx Hypertension Pulmonary Medical History: Reports: Hx Asthma, Hx Pneumonia, Hx Sleep Apnea Endocrine Medical History: Reports: Hx Diabetes Mellitus Type 2 Renal/ Medical History: Reports: Hx Ovarian Cysts. Denies: Hx Peritoneal Dialysis GI Medical History: Reports: Hx Gastroesophageal Reflux Disease, Hx Ulcer Psychiatric Medical History: Reports: Hx Anxiety, Hx Attention Deficit Hyperactivity Disorder, Hx Bipolar Disorder, Hx Depression Past Surgical History: Reports: Hx Adenoidectomy, Hx Gynecologic Surgery - R ovarian cyst 2010 Uterine fibroid removal 2009 in [place]., Hx Tonsillectomy - Immunizations Hx Diphtheria, Pertussis, Tetanus Vaccination: Yes - 06/2011 Review of Systems - Review of Systems Notes: My Normal Review Basic REVIEW OF SYSTEMS: CONSTITUTIONAL : Denies fever, chills, or sweats. Denies recent illness. EENT: Denies eye, ear, throat, or mouth pain or symptoms. Denies nasal or sinus congestion. CARDIOVASCULAR: Denies chest pain. RESPIRATORY: Dyspnea GASTROINTESTINAL: Denies abdominal pain. Denies nausea, vomiting, or diarrhea. GENITOURINARY: Denies difficulty urinating, painful urination, burning, frequency, or blood in urine. MUSCULOSKELETAL: Denies neck or back pain or joint pain or swelling. SKIN: Denies rash or skin lesions. NEUROLOGICAL: Denies altered mental status or loss of consciousness. has a headache. Denies weakness or paralysis or loss of use of either side. Denies problems with gait or speech. Denies sensory or motor loss. ALL OTHER SYSTEMS REVIEWED AND NEGATIVE. Physical Exam - Vital signs Vitals: Temp Pulse Resp BP Pulse Ox 98.8 F 101 H 23 H 132/88 H 99 06/11/18 17:31 06/11/18 17:31 06/11/18 17:31 06/11/18 17:31 06/11/18 17:31 - Notes Notes: General Appearance: Well nourished, alert, cooperative, no acute distress, no obvious discomfort. Vitals: reviewed, See vital signs table. Head: no swelling or tenderness to the head Eyes: PERRL, EOMI, Conjuctiva clear Mouth: No decreasd moisture Throat: No tonsillar inflammation, No airway obstruction, No lymphadenopathy Neck: Supple, no neck tendernes Lungs: No wheezing, No rales, No rhonci, No accessory muscle use, good air exchange bilaterally. Heart: Normal rate, Regular rythm, No murmur, no rub Abdomen: Normal BS, soft, No rigidity, No abdominal tenderness, No guarding, no rebound, no abdominal masses, no organomegaly Extremities: strength 5/5 in all extremities, good pulses in all extremities, no swelling or tenderness in the extremities, no edema. Skin: warm, dry, appropriate color, no rash Neuro: speech clear, oriented x 3, normal affect, responds appropriately to qu estions. Course - Re-evaluation Re-evalutation: 06/12/18 06:51 Patient looks well exam. She has no increased work of breathing. Her lung ontiveros are clear. I did listen to her lungs after she received a breathing treatment in triage and therefore I cannot determine if she had wheezing before. Patient herself says that she was wheezing. She has good air movement. Chest x-ray shows no evidence of pneumonia. Did review her recent visits including recent admission. At that time she had a CT of the chest which showed no evid ence of main pulmonary artery emboli. On her repeat visit to the ER 2 weeks ago she had a d-dimer which is negative and therefore I do not think that she has a PE at this time being that she had a negative CTA as well as a recent negative d-dimer as well as her not being tachycardic or hypoxemic. She had a cardiac workup when she was admitted. An echocardiogram which showed that she has normal ejection fraction. Patient is very over weight. I informed her that being obese can affect her breathing and make it hard to recover from respiratory illnesses. Informed her it may take some time before she feels that she is fully back to normal however losing weight would help some. She is unde rstanding of this. At this time I feel she safe to be discharged home as she has normal vital signs, normal work of breathing, and her lung ontiveros are clear. Strong encouragement of a low threshold to return to ER if she has worsening difficulty breathing, fevers, or feels unwell. Patient agrees with plan will be discharged home. Dictation of this chart was performed using voice recognition software; therefore, there may be some unintended grammatical errors. - Vital Signs Vital signs: Temp Pulse Resp BP Pulse Ox 97.7 F 101 H 24 H 131/90 H 98 06/11/18 23:26 06/11/18 23:26 06/11/18 23:26 06/11/18 23:26 06/11/18 23:26 - Laboratory Result Diagrams: 06/11/18 18:23 06/11/18 18:23 Laboratory results interpreted by me: 06/11/18 18:23 WBC 10.6 H Hgb 11.5 L Hct 35.1 L RDW 15.3 H - EKG Interpretation by Me Additional EKG results interpreted by me: 06/11/18 22:19 EKG is reviewed and interpreted by me. EKG shows sinus rhythm with a rate of [address] segment elevation or depression. [place] interval, QRS duration, QTc normal intervals are within normal range. No old EKG available for comparison. Discharge - Discharge Clinical Impression: Morbid obesity Dyspnea Qualifiers: Dyspnea type: unspecified Qualified Code(s): R06.00 - Dyspnea, unspecified Condition: Good Disposition: HOME, SELF-CARE Additional Instructions: Your workup today did not show any concerning findings. Chest x-ray did not show evidence of pneumonia. Please continue take your allergy medication. Please focus on weight loss as this will also help with your breathing. Please return to ER immediately if you have worsening difficulty breathing, fevers, severe chest pain, or if you feel you are worsening in any way. Forms: Return to Work [facility] [Primary Care Provider] - Follow up tomorrow
[2018-06-11] MEDS ORDERED: METOCLOPRAMIDE HCL INJ/PF 10 MG/2 ML SDV IV ONE (22:36)
[2018-06-11 23:30] VITALS: BP 131/90
== END 2018-06-11 23:30 | disposition home or self-care (01) ==
LOC: ER 16:36
DX: E66.01 Morbid (severe) obesity due to excess calories (principal); R06.00 Dyspnea, unspecified; R51 Headache; R11.10 Vomiting, unspecified; R19.7 Diarrhea, unspecified; I10 Essential (primary) hypertension; J45.909 Unspecified asthma, uncomplicated; E11.9 Type 2 diabetes mellitus without complications
CPT/HCPCS: 93005; 94640 ×2; 99285; 96374; 36415; 82553; 82550; 85025; 80053; 84484; 71045; 93010; J2765; J7620

== ENCOUNTER → 2018-06-23 | Outpatient (CLI) | payer OTHER ==
--- NOTE | 2018-06-23 11:04 | RADIOLOGY REPORT (SQ) ---
EXAM DESCRIPTION: CHEST PA/LATERAL COMPLETED DATE/TIME: 06/23/2018 10:57 am REASON FOR STUDY: R05; COUGH, COMPARISON: 06/11/2018. EXAM PARAMETERS: NUMBER OF VIEWS: two views TECHNIQUE: Digital Frontal and Lateral radiographic views of the chest acquired. RADIATION DOSE: NA LIMITATIONS: none FINDINGS: LUNGS AND PLEURA: No opacities, masses or pneumothorax. No pleural effusion. MEDIASTINUM AND HILAR STRUCTURES: No masses or contour abnormalities. HEART AND VASCULAR STRUCTURES: Heart normal size. No evidence for failure. BONES: No acute findings. HARDWARE: None in the chest. OTHER: No other significant finding. IMPRESSION: NO SIGNIFICANT RADIOGRAPHIC FINDING IN THE CHEST. TECHNICAL DOCUMENTATION: JOB ID: [id number] [employer]- All Rights Reserved Reading location - IP/workstation name: [email or web address]
[2018-06-23 12:09] LABS: ABSOLUTE EOSINOPHILS # (AUTO) 0.1 10^3/uL (0.0-0.6); ABSOLUTE LYMPHOCYTES (AUTO) 2.1 10^3/uL (0.5-4.7); ABSOLUTE MONOCYTES (AUTO) 0.4 10^3/uL (0.1-1.4); ABSOLUTE NEUT (AUTO) 6.2 10^3/uL (1.7-8.2); BASOPHILS % (AUTO) 0.5 % (0-2); EOSINOPHILS % (AUTO) 1.5 % (0-6); HEMATOCRIT 35.2 % (36.0-47.0); HEMOGLOBIN 11.6 g/dL (12.0-15.5); LYMPHOCYTES % (AUTO) 23.4 % (13-45); MEAN CORPUSCULAR HEMOGLOBIN 29.6 pg (27.0-33.4); MEAN CORPUSCULAR HGB CONC 32.9 g/dL (32.0-36.0); MEAN CORPUSCULAR VOLUME 90 fl (80-97); MONOCYTES % (AUTO) 4.3 % (3-13); PLATELET COUNT 343 10^3/uL (150-450); RED BLOOD COUNT 3.92 10^6/uL (3.72-5.28); RED CELL DISTRIBUTION WIDTH 15.4 % (11.5-14.0); SEGMENTED NEUTROPHILS % (AUTO) 70.3 % (42-78); TOTAL CELLS COUNTED % (AUTO) 100 %; WHITE BLOOD COUNT 8.8 10^3/uL (4.0-10.5)
[2018-06-23 12:15] LABS: INTERNATIONAL RATION (INR) 0.96; PROTHROMBIN TIME 13.3 SEC (11.4-15.4)
[2018-06-23 12:16] LABS: PARTIAL THROMBOPLASTIN TIME 36.3 SEC (23.5-35.8)
== END ==
LOC: OD 10:36
DX: E11.8 Type 2 diabetes mellitus with unspecified complications (principal); D64.9 Anemia, unspecified
CPT/HCPCS: 36415; 71046; 83036; 85025; 85610; 85730

== ENCOUNTER 2018-10-09 07:19 | Emergency (ER) | payer OTHER ==
[2018-10-09] MEDS ORDERED: METHYLPREDNISOLONE INJ 125 MG/2 ML SDV IV ONE (07:54)
[2018-10-09] MEDS ORDERED: IPRATROPIUM/ALBUTEROL 0.5-2.5 MG/3 ML AMPUL NEB ONE (07:55)
--- NOTE | 2018-10-09 07:58 | ER Document Report ---
ED Respiratory Problem - General Chief Complaint: Breathing Difficulty Stated Complaint: SHORTNESS OF BREATH Time Seen by Provider: 10/09/18 07:41 Primary Care Provider: [facility] [Primary Care Provider] - Follow up as needed Notes: 33-year-old female with a history of asthma, morbid obesity, diabetes presents to the ER complaining of worsening asthma over the last several days. The patient is been using her Symbicort inhaler and albuterol without any relief. She complains of worsening shortness of breath at rest and wheezing. She complains of some mild chest tightness. The patient denies sore throat runny nose or congestion. Denies calf pain or leg swelling denies black bloody or tarry stools. TRAVEL OUTSIDE OF THE [place] IN LAST 30 DAYS: No - Related Data Allergies/Adverse Reactions: amoxicillin [Amoxicillin] Allergy (Verified 10/09/18 07:21) benzonatate [From Tessalon Perles] Allergy (Verified 10/09/18 07:21) iloperidone [From Fanapt] Allergy (Verified 10/09/18 07:21) Penicillins Allergy (Verified 10/09/18 07:21) Past Medical History - Social History Smoking Status: Unknown if Ever Smoked Family History: DM, Hypertension, Other - Brother with blood clots, mother with hysterectomy - Past Medical History Cardiac Medical History: Reports: Hx Hypertension Pulmonary Medical History: Reports: Hx Asthma, Hx Pneumonia, Hx Sleep Apnea Endocrine Medical History: Reports: Hx Diabetes Mellitus Type 2 Renal/ Medical History: Reports: Hx Ovarian Cysts. Denies: Hx Peritoneal Dialysis GI Medical History: Reports: Hx Gastroesophageal Reflux Disease, Hx Ulcer Psychiatric Medical History: Reports: Hx Anxiety, Hx Attention Deficit Hyperactivity Disorder, Hx Bipolar Disorder, Hx Depression Past Surgical History: Reports: Hx Adenoidectomy, Hx Gynecologic Surgery - R ovarian cyst 2010 Uterine fibroid removal 2010 in [place]., Hx Tonsillectomy - Immunizations Hx Diphtheria, Pertussis, Tetanus Vaccination: Yes - 06/2011 Review of Systems - Review of Systems Constitutional: denies: Chills, Fever Cardiovascular: Chest pain, Dyspnea. denies: Palpitations, Edema Respiratory: Cough, Short of breath, Wheezing. denies: Hemoptysis Gastrointestinal: denies: Abdominal pain, Diarrhea, Nausea, Vomiting Genitourinary: denies: Dysuria, Hematuria Musculoskeletal: denies: Back pain Neurological/Psychological: denies: Headaches -: Yes All other systems reviewed and negative Physical Exam - Vital signs Vitals: Temp Pulse Resp BP Pulse Ox 98.3 F 79 20 129/82 H 100 10/09/18 07:20 10/09/18 07:20 10/09/18 07:20 10/09/18 07:20 10/09/18 07:20 - Notes Notes: GENERAL_APPEARANCE: well_nourishedmorbidly obese, alert, cooperative VITALS: reviewed, see vital signs table. HEAD: no_swelling\tenderness on the head. EYES: PERRL, EOMI, conjunctiva_clear. NOSE: no_nasal_discharge. MOUTH: (-)decreased moisture. THROAT: no_tonsilar_inflammation, no_airway_obstruction. no_lymphadenopathy NECK: supple, no_neck_tenderness, (-)thyromegaly. BACK: no_back_tenderness. CHEST_WALL: no_chest_tenderness. LUNGS: Scattered_wheezing, no_rales, no_rhonchi, mild accessory muscle use, fair air exchange bilateral. HEART: normal_rate, normal_rhythm, normal_S1, normal_S2, (-)S3, (-)S4, no_murmur, no_rub. ABDOMEN: normal_BS, soft, no_abd_tenderness, (-)guarding, (-)rebound, no_organomegaly, no_abd_masses. EXTREMITIES: strength 5/5 in all_extremities, good pulses in all_extremities, no_swelling\tenderness in the extremities, plus_edema. SKIN: warm, dry, good_color, no_rash. MENTAL_STATUS: speech_clear, oriented_X_3, normal_affect, responds_appropriately to questions. Course - Re-evaluation Re-evalutation: 10/09/18 07:57 33-year-old female presents to the ER with asthma exacerbation. Patient has some chest tightness we will get an EKG but this is likely due to asthma. Patient denies any calf pain or significant leg swelling Homans sign negative bilateral give the patient aerosol treatment steroids. We will get a chest x- ray to look for any kind of pneumonia. 10/09/18 12:18 Patient is doing much better. Patient asked for refill on her Vistaril. We will give her that and a DuoNeb for home. Her wheezing has alleviated. She cannot take any more steroids due to her diabetes. - Vital Signs Vital signs: Temp Pulse Resp BP Pulse Ox 98.3 F 79 20 125/96 H 100 10/09/18 07:20 10/09/18 07:20 10/09/18 12:01 10/09/18 12:01 10/09/18 12:01 - Laboratory Result Diagrams: 10/09/18 08:45 10/09/18 08:45 Laboratory results interpreted by me: 10/09/18 10/09/18 08:45 08:45 RDW 14.7 H Glucose 130 H - Diagnostic Test Radiology reviewed: Reports reviewed Radiology results interpreted by me: 10/09/18 12:17 Chest X-Ray 10/09/18 07:54 IMPRESSION: NO ACUTE RADIOGRAPHIC FINDING IN THE CHEST. Discharge - Discharge Clinical Impression: Acute asthma exacerbation Qualifiers: Asthma severity: moderate Asthma persistence: unspecified Qualified Code(s): J45.901 - Unspecified asthma with (acute) exacerbation Condition: Good Disposition: HOME, SELF-CARE Instructions: Asthma ([facility]) Prescriptions: Hydroxyzine Pamoate [Vistaril 50 mg Capsule] 50 mg PO TID #90 capsule Ipratropium/Albuterol Sulfate [Duoneb 3 ml Ampul] 3 ml NEB RTQ4 #30 vial.neb [facility]: [facility] [Primary Care Provider] - Follow up as needed
--- NOTE | 2018-10-09 08:38 | RADIOLOGY REPORT (SQ) ---
EXAM DESCRIPTION: CHEST 2 VIEWS COMPLETED DATE/TIME: 10/09/2018 8:28 am REASON FOR STUDY: SOB COMPARISON: 06/23/2018 EXAM PARAMETERS: NUMBER OF VIEWS: two views TECHNIQUE: Digital Frontal and Lateral radiographic views of the chest acquired. RADIATION DOSE: NA LIMITATIONS: none FINDINGS: LUNGS AND PLEURA: No opacities, masses or pneumothorax. No pleural effusion. MEDIASTINUM AND HILAR STRUCTURES: No masses or contour abnormalities. HEART AND VASCULAR STRUCTURES: Heart normal size. No evidence for failure. BONES: No acute findings. HARDWARE: None in the chest. OTHER: No other significant finding. IMPRESSION: NO ACUTE RADIOGRAPHIC FINDING IN THE CHEST. TECHNICAL DOCUMENTATION: JOB ID: [id number] [employer] All Rights Reserved Reading location - IP/workstation name: [email or web address]
[2018-10-09 09:02] LABS: ABSOLUTE BASOPHILS # (AUTO) 0.1 10^3/uL (0.0-0.2); ABSOLUTE EOSINOPHILS # (AUTO) 0.1 10^3/uL (0.0-0.6); ABSOLUTE LYMPHOCYTES (AUTO) 2.6 10^3/uL (0.5-4.7); ABSOLUTE MONOCYTES (AUTO) 0.6 10^3/uL (0.1-1.4); ABSOLUTE NEUT (AUTO) 6.9 10^3/uL (1.7-8.2); BASOPHILS % (AUTO) 0.6 % (0-2); EOSINOPHILS % (AUTO) 0.9 % (0-6); HEMOGLOBIN 12.2 g/dL (12.0-15.5); LYMPHOCYTES % (AUTO) 25.5 % (13-45); MEAN CORPUSCULAR HEMOGLOBIN 28.3 pg (27.0-33.4); MEAN CORPUSCULAR HGB CONC 32.1 g/dL (32.0-36.0); MEAN CORPUSCULAR VOLUME 88 fl (80-97); PLATELET COUNT 365 10^3/uL (150-450); RED BLOOD COUNT 4.31 10^6/uL (3.72-5.28); RED CELL DISTRIBUTION WIDTH 14.7 % (11.5-14.0); TOTAL CELLS COUNTED % (AUTO) 100 %; WHITE BLOOD COUNT 10.3 10^3/uL (4.0-10.5)
[2018-10-09 09:19] LABS: ANION GAP 8 (5-19); BLOOD UREA NITROGEN 13 mg/dL (7-20); CARBON DIOXIDE 28 mmol/L (22-30); CHLORIDE 103 mmol/L (98-107); GLUCOSE 130 mg/dL (75-110); POTASSIUM 4.4 mmol/L (3.6-5.0)
--- NOTE | 2018-10-09 09:45 | EKG REPORT ---
SEVERITY:- NORMAL ECG - SINUS RHYTHM : Confirmed by: Luzmaria Lindsey 09-Oct-2018 09:44:40
[2018-10-09 12:08] VITALS: BP 125/96
== END 2018-10-09 12:20 | disposition home or self-care (01) ==
LOC: ER 07:19
DX: J45.901 Unspecified asthma with (acute) exacerbation (principal); Z79.899 Other long term (current) drug therapy; Z79.51 Long term (current) use of inhaled steroids; R07.89 Other chest pain; R06.02 Shortness of breath; R05 Cough; E11.9 Type 2 diabetes mellitus without complications; I10 Essential (primary) hypertension; Z88.0 Allergy status to penicillin; Z88.8 Allergy status to other drugs, medicaments and biological substances
CPT/HCPCS: 93005; 94640; 99285; 96374; 36415; 85025; 80048; 71046; 93010; J2930; J7620

== ENCOUNTER 2018-12-06 05:38 | Emergency (ER) | payer OTHER ==
[2018-12-06] MEDS ORDERED: NORMAL SALINE 1000 ML 1,000 ML IV ONE (08:57)
[2018-12-06] MEDS ORDERED: MORPHINE SULFATE 10 MG/ML INJ IV ONE (08:58)
--- NOTE | 2018-12-06 09:00 | ER Document Report ---
ED General - General Chief Complaint: Medical Complaint Stated Complaint: NAUSEA,VOMITING Time Seen by Provider: 12/06/18 08:21 [facility] [Primary [facility]] - Follow up as needed Mode of Arrival: Medic Information source: Patient TRAVEL OUTSIDE OF THE [place] IN LAST 30 DAYS: No - HPI Notes: 33-year-old female with a medical history of type 2 diabetes and chronic back pain presents the ED via EMS for complaints of nausea, vomiting, diarrhea x1 day with vaginal bleeding that started approximately 1 day ago as well. 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 Called pain management to see if they can switch her back to the oxycodone 10 mg 4 times a day however they would like her to continue her Dilaudid until completed, she does have an appointment tomorrow with pain management. Patient states that she is not taking the Dilaudid since yesterday morning at 9 AM, has not had any oxycodone or Dilaudid since that time per patient. Patient is not sure if she is withdrawing or if she is having an issue with her blood sugars. Patient states she has not had a menstrual cycle in over one year. Denies fevers, chills, chest pain,palpitations, shortness of breath, dyspnea, abdominal pain, hematuria,blurred vision, double vision, loss of vision, speech changes, LH, dizziness, syncope, headaches, wheezing, ST, URI, neck pain, weakness, bowel or bladder dysfunction, saddle anesthesia, numbness or tingling in bilateral upper or lower extremities equally, muscle paralysis, weakness in bilateral upper or lower extremities equally or rash. - Related Data Allergies/Adverse Reactions: amoxicillin [Amoxicillin] Allergy (Verified 10/09/18 07:21) benzonatate [From Tessalon Perles] Allergy (Verified 10/09/18 07:21) iloperidone [From Fanapt] Allergy (Verified 10/09/18 07:21) Penicillins Allergy (Verified 10/09/18 07:21) Past Medical History - General Information source: Patient - Social History Smoking Status: Never Smoker Family History: DM, Hypertension, Other - Brother with blood clots, mother with hysterectomy Patient has suicidal ideation: No Patient has homicidal ideation: No - Past Medical History Cardiac Medical History: Reports: Hx Hypertension Pulmonary Medical History: Reports: Hx Asthma, Hx Bronchitis, Hx Pneumonia, Hx Sleep Apnea Endocrine Medical History: Reports: Hx Diabetes Mellitus Type 2 Renal/ Medical History: Reports: Hx Ovarian Cysts. Denies: Hx Peritoneal Dialysis GI Medical History: Reports: Hx Gastroesophageal Reflux Disease, Hx Ulcer Psychiatric Medical History: Reports: Hx Anxiety, Hx Attention Deficit Hyperactivity Disorder, Hx Bipolar Disorder, Hx Depression Past Surgical History: Reports: Hx Adenoidectomy, Hx Gynecologic Surgery - R ovarian cyst 2010 Uterine fibroid removal 2010 in [place]., Hx Tonsillectomy - Immunizations Hx Diphtheria, Pertussis, Tetanus Vaccination: Yes - 06/2011 Review of Systems - Review of Systems Constitutional: No symptoms reported EENT: No symptoms reported Cardiovascular: No symptoms reported Respiratory: No symptoms reported Gastrointestinal: See HPI Genitourinary: See HPI Female Genitourinary: No symptoms reported Musculoskeletal: No symptoms reported Skin: No symptoms reported Hematologic/Lymphatic: No symptoms reported Neurological/Psychological: No symptoms reported Physical Exam - Vital signs Vitals: Temp Pulse Resp BP Pulse Ox 98.6 F 87 17 137/84 H 96 12/06/18 05:57 12/06/18 05:57 12/06/18 05:57 12/06/18 05:57 12/06/18 05:57 - Notes Notes: PHYSICAL EXAMINATION: reviewed vital signs by RN GENERAL: Well-appearing, morbidly obese and in no mild distress. HEAD: Atraumatic, normocephalic. EYES: Pupils equal round and reactive to light, extraocular movements intact, conjunctiva are normal. ENT: Nares patent, oropharynx clear without exudates. Moist mucous membranes. NECK: Normal range of motion, supple without lymphadenopathy LUNGS: Breath sounds clear to auscultation bilaterally and equal. No wheezes rales or rhonchi. HEART: Regular rate and rhythm without murmurs ABDOMEN: Soft, nontender, nondistended abdomen. No guarding, no rebound. No masses appreciated. Female : External genitalia without erythema, exudate or discharge. Vaginal vault is without discharge. Cervix is of normal color without lesion, closed. Uterus is noted to be of normal size and nontender. No cervical motion tenderness is seen. scant blood in the vaginal vault without clots,no adnexal tenderness or mass Musculoskeletal: Normal range of motion, no pitting or edema. No cyanosis. NEUROLOGICAL: Cranial nerves grossly intact. Normal speech, normal gait. Normal sensory, motor exams PSYCH: Normal mood, normal affect. SKIN: Warm, Dry, normal turgor, no rashes or lesions noted. Course - Re-evaluation Re-evalutation: 12/06/18 09:28 Afebrile vital stable no distress, nurse's notes reviewed. CBC, CMP, urinalysis unremarkable, patient given IV fluids 3 mg of morphine IVP. Patient states 3 minutes after receiving pain medication that her nausea vomiting diarrhea abdominal pain have resolved, this is likely due to the drying from oxycodone even though she does have prescription for Dilaudid that she has not been taking. Patient does have a appointment with her pain management tomorrow morning to discuss her pain management options. Pelvic exam was unremarkable, scant bloody discharge, no hemorrhaging, no masses noted on vaginal exam, no cervical motion tenderness. Patient did test positive for bacterial vaginosis, treat accordingly. Discussed with patient that she does need to continue to take the p.o. Dilaudid. After performing a Medical Screening Examination, I estimate there is LOW risk for ACUTE APPENDICITIS, BOWEL OBSTRUCTION, ACUTE CHOLECYSTITIS, PERFORATED DIVERTICULITIS, INCARCERATED HERNIA, PANCREATITIS, PELVIC INFLAMMATORY DISEASE, PERFORATED ULCER, ECTOPIC , or TUBO- OVARIAN ABSCESS, thus I consider the discharge disposition reasonable. Also, there is no evidence or peritonitis, sepsis, or toxicity. I have reevaluated this patient multiple times and no significant life threatening changes are note d. The patient and I have discussed the diagnosis and risks, and we agree with discharging home with close follow-up with the understanding that symptoms and presentations can change. We also discussed returning to the Emergency Department immediately if new or worsening symptoms occur. We have discussed the symptoms which are most concerning (e.g., bloody stool, fever, changing or worsening pain, vomiting) that necessitate immediate return. - Vital Signs Vital signs: Temp Pulse Resp BP Pulse Ox 97.6 F 85 16 155/93 H 100 12/06/18 12:40 12/06/18 12:40 12/06/18 12:40 12/06/18 12:40 12/06/18 12:40 - Laboratory Result Diagrams: 12/06/18 09:22 12/06/18 09:22 Laboratory results interpreted by me: 12/06/18 12/06/18 12/06/18 09:22 09:22 09:22 RDW 14.4 H Alkaline Phosphatase 133 H Urine Blood LARGE H Discharge - Discharge Clinical Impression: Vaginal bleeding, intermediate current use of opiate analgesic, Gastroenteritis, Bacterial vaginosis Condition: Stable Disposition: HOME, SELF-CARE Instructions: Antinausea Medication ([facility]), Clear Liquid Diet ([facility]), Intravenous (IV) Fluids ([facility]), Oral Narcotic Medication ([facility]), OTC Antidiarrhea Medication ([facility]), Pain Medication Injection ([facility]), Vomiting ([facility]) Additional Instructions: Go to pain management appointment tomorrow as already scheduled. you received IV hydration and pain medication. Take Zofran as needed for nausea and vomiting. Take Flagyl as directed, do not drink alcohol while taking medications of a cause nausea or vomiting. Your STD test is pending, will call with any positives. Please take your Dilaudid p.o. as already prescribed by pain management. Return immediately for any new or worsening symptoms. Follow up with primary care provider, call tomorrow to make followup appointment. Prescriptions: Metronidazole [Flagyl] 500 mg PO BID #14 tablet Ondansetron [Zofran Odt 4 mg Tablet] 1 - 2 tab PO Q4H PRN #15 tab.rapdis PRN Reason: For Nausea/Vomiting [facility]errals: [facility] [Primary Care Provider] - Follow up as needed
[2018-12-06 09:39] LABS: ABSOLUTE EOSINOPHILS # (AUTO) 0.1 10^3/uL (0.0-0.6); ABSOLUTE LYMPHOCYTES (AUTO) 1.8 10^3/uL (0.5-4.7); ABSOLUTE MONOCYTES (AUTO) 0.5 10^3/uL (0.1-1.4); ABSOLUTE NEUT (AUTO) 7.8 10^3/uL (1.7-8.2); BASOPHILS % (AUTO) 0.5 % (0-2); EOSINOPHILS % (AUTO) 1.4 % (0-6); HEMATOCRIT 37.8 % (36.0-47.0); HEMOGLOBIN 12.3 g/dL (12.0-15.5); LYMPHOCYTES % (AUTO) 17.7 % (13-45); MEAN CORPUSCULAR HEMOGLOBIN 29.1 pg (27.0-33.4); MEAN CORPUSCULAR HGB CONC 32.7 g/dL (32.0-36.0); MEAN CORPUSCULAR VOLUME 89 fl (80-97); PLATELET COUNT 369 10^3/uL (150-450); RED BLOOD COUNT 4.25 10^6/uL (3.72-5.28); RED CELL DISTRIBUTION WIDTH 14.4 % (11.5-14.0); SEGMENTED NEUTROPHILS % (AUTO) 75.4 % (42-78); TOTAL CELLS COUNTED % (AUTO) 100 %; WHITE BLOOD COUNT 10.3 10^3/uL (4.0-10.5)
[2018-12-06 09:58] LABS: ALKALINE PHOSPHATASE 133 U/L (38-126); ANION GAP 8 (5-19); ASPARTATE AMINO TRANSFERASE 36 U/L (14-36); BILIRUBIN,DIRECT 0.2 mg/dL (0.0-0.4); BILIRUBIN,TOTAL 0.4 mg/dL (0.2-1.3); BLOOD UREA NITROGEN 9 mg/dL (7-20); CALCIUM 9.3 mg/dL (8.4-10.2); CARBON DIOXIDE 27 mmol/L (22-30); CHLORIDE 104 mmol/L (98-107); GLUCOSE 106 mg/dL (75-110); POTASSIUM 4.6 mmol/L (3.6-5.0); TOTAL PROTEIN 7.7 g/dL (6.3-8.2)
[2018-12-06 10:24] LABS: APPEARANCE,URINE CLEAR; BILIRUBIN,URINE NEGATIVE (NEGATIVE); COLOR,URINE YELLOW; GLUCOSE, URINE NEGATIVE (NEGATIVE); KETONES,URINE NEGATIVE (NEGATIVE); LEUKOCYTE ESTERASE,URINE NEGATIVE (NEGATIVE); NITRITE,URINE NEGATIVE (NEGATIVE); PROTEIN,URINE NEGATIVE (NEGATIVE); URINE SPECIFIC GRAVITY 1.013; UROBILINOGEN,URINE NEGATIVE mg/dL (<2.0)
[2018-12-06 10:33] LABS: URINE AMPHETAMINES SCREEN NEGATIVE; URINE BARBITURATES SCREEN NEGATIVE; URINE BENZODIAZEPINES SCREEN NEGATIVE; URINE COCAINE SCREEN NEGATIVE; URINE MARIJUANA (THC) SCREEN NEGATIVE; URINE METHADONE SCREEN NEGATIVE; URINE PHENCYCLIDINE SCREEN NEGATIVE
[2018-12-06] MEDS ORDERED: ONDANSETRON HCL INJ/PF 4 MG/2 ML SDV IV ONE (10:38)
[2018-12-06 10:50] LABS: BACTERIA (WET MOUNT) 3+ BACTERIA SEEN; RBCS (WET MOUNT) 4+ RBCS SEEN; T.VAGINALIS (WET MOUNT) NO TRICHOMONAS SEEN; WBCS (WET MOUNT) 4+ WBCS SEEN; YEAST (WET MOUNT) NO YEAST SEEN
[2018-12-06 12:12] LABS: CHLAM PCR NOT DETECTED (NOT DETECT)
[2018-12-06] MEDS ORDERED: HYDROCODONE/ACETAMINOPHEN 10-325 MG TABLET PO ONE (12:15)
[2018-12-06 12:43] VITALS: BP 155/93
== END 2018-12-06 12:40 | disposition home or self-care (01) ==
LOC: ER 05:38
DX: K52.9 Noninfective gastroenteritis and colitis, unspecified (principal); N76.0 Acute vaginitis; B96.89 Other specified bacterial agents as the cause of diseases classified elsewhere; N93.9 Abnormal uterine and vaginal bleeding, unspecified; R11.2 Nausea with vomiting, unspecified; M54.9 Dorsalgia, unspecified; G89.29 Other chronic pain; Z79.891 Long term (current) use of opiate analgesic; E11.9 Type 2 diabetes mellitus without complications; I10 Essential (primary) hypertension; J45.909 Unspecified asthma, uncomplicated; Z88.0 Allergy status to penicillin; Z88.8 Allergy status to other drugs, medicaments and biological substances
CPT/HCPCS: 36415; 87210; 83690; 85025; 81025; 80053; 81001; 80307; 87491; 87591; J2270; J2405; J7030; 96361; 96374; 96375; 99284

== ENCOUNTER 2018-12-16 12:20 | Emergency (ER) | payer OTHER ==
--- NOTE | 2018-12-16 13:18 | ER Document Report ---
ED Medical Screen (RME) - General Chief Complaint: Foot Pain Stated Complaint: LEFT FOOT PAIN Time Seen by Provider: 12/16/18 13:14 [facility]: [facility] [Primary [facility] Provider] - Follow up as needed Mode of Arrival: Wheelchair Information source: Patient Notes: 33-year-old female presented to ED for swelling to her left foot for the last 4 days. She states she does a lot of laying around and is not very active. Due to her back injury. The left foot is much larger than the right foot. She states she does not smoke not use any hormones and is been on any long trips. Patient states she is diabetic and asthma with history of anemia depression anxiety high blood pressure. Menstrual cycle November 27. I have greeted and performed a rapid initial assessment of this patient. A comprehensive ED assessment and evaluation of the patient, analysis of test results and completion of medical decision making process will be conducted by an additional ED providers. TRAVEL OUTSIDE OF THE [place] IN LAST 30 DAYS: No - Related Data Allergies/Adverse Reactions: amoxicillin [Amoxicillin] Allergy (Verified 10/09/18 07:21) benzonatate [From Tessalon Perles] Allergy (Verified 10/09/18 07:21) iloperidone [From Fanapt] Allergy (Verified 10/09/18 07:21) Penicillins Allergy (Verified 10/09/18 07:21) Past Medical History - Social History Family history: None - Past Medical History Cardiac Medical History: Reports: Hx Hypertension Pulmonary Medical History: Reports: Hx Asthma, Hx Bronchitis, Hx Pneumonia, Hx Sleep Apnea Endocrine Medical History: Reports: Hx Diabetes Mellitus Type 2 Renal/ Medical History: Reports: Hx Ovarian Cysts. Denies: Hx Peritoneal Dialysis GI Medical History: Reports: Hx Gastroesophageal Reflux Disease, Hx Ulcer Psychiatric Medical History: Reports: Hx Anxiety, Hx Attention Deficit Hyperactivity Disorder, Hx Bipolar Disorder, Hx Depression Past Surgical History: Reports: Hx Adenoidectomy, Hx Gynecologic Surgery - R ovarian cyst 2010 Uterine fibroid removal 2009 in [place]., Hx Tonsillectomy - Immunizations Hx Diphtheria, Pertussis, Tetanus Vaccination: Yes - 06/2011 Physical Exam - Vital signs Vitals: Temp Pulse Resp BP Pulse Ox 98.9 F 104 H 18 130/88 H 95 12/16/18 12:45 12/16/18 12:45 12/16/18 12:45 12/16/18 12:45 12/16/18 12:45 Course - Vital Signs Vital signs: Temp Pulse Resp BP Pulse Ox 98.9 F 104 H 18 130/88 H 95 12/16/18 12:45 12/16/18 12:45 12/16/18 12:45 12/16/18 12:45 12/16/18 12:45 Doctor's Discharge - Discharge Referrals: [facility] [Primary Care Provider] - Follow up as needed
--- NOTE | 2018-12-16 13:56 | RADIOLOGY REPORT (SQ) ---
EXAM DESCRIPTION: CHEST 2 VIEWS COMPLETED DATE/TIME: 12/16/2018 1:49 pm REASON FOR STUDY: short of breath COMPARISON: 10/09/2018. EXAM PARAMETERS: NUMBER OF VIEWS: two views TECHNIQUE: Digital Frontal and Lateral radiographic views of the chest acquired. RADIATION DOSE: NA LIMITATIONS: none FINDINGS: LUNGS AND PLEURA: No opacities, masses or pneumothorax. No pleural effusion. MEDIASTINUM AND HILAR STRUCTURES: No masses or contour abnormalities. HEART AND VASCULAR STRUCTURES: Heart normal size. No evidence for failure. BONES: No acute findings. HARDWARE: None in the chest. OTHER: No other significant finding. IMPRESSION: NO ACUTE RADIOGRAPHIC FINDING IN THE CHEST. TECHNICAL DOCUMENTATION: JOB ID: [id number] [employer]- All Rights Reserved Reading location - IP/workstation name: [email or web address]
[2018-12-16 15:17] LABS: ABSOLUTE EOSINOPHILS # (AUTO) 0.2 10^3/uL (0.0-0.6); ABSOLUTE LYMPHOCYTES (AUTO) 2.5 10^3/uL (0.5-4.7); ABSOLUTE MONOCYTES (AUTO) 0.5 10^3/uL (0.1-1.4); ABSOLUTE NEUT (AUTO) 6.1 10^3/uL (1.7-8.2); BASOPHILS % (AUTO) 0.3 % (0-2); EOSINOPHILS % (AUTO) 1.7 % (0-6); HEMATOCRIT 37.2 % (36.0-47.0); HEMOGLOBIN 12.2 g/dL (12.0-15.5); LYMPHOCYTES % (AUTO) 27.1 % (13-45); MEAN CORPUSCULAR HEMOGLOBIN 29.5 pg (27.0-33.4); MEAN CORPUSCULAR HGB CONC 32.8 g/dL (32.0-36.0); MEAN CORPUSCULAR VOLUME 90 fl (80-97); MONOCYTES % (AUTO) 5.2 % (3-13); PLATELET COUNT 393 10^3/uL (150-450); RED BLOOD COUNT 4.13 10^6/uL (3.72-5.28); RED CELL DISTRIBUTION WIDTH 14.4 % (11.5-14.0); SEGMENTED NEUTROPHILS % (AUTO) 65.7 % (42-78); TOTAL CELLS COUNTED % (AUTO) 100 %; WHITE BLOOD COUNT 9.3 10^3/uL (4.0-10.5)
[2018-12-16 15:21] LABS: INTERNATIONAL RATION (INR) 1.08; PROTHROMBIN TIME 14.1 SEC (11.4-15.4)
[2018-12-16 15:22] LABS: PARTIAL THROMBOPLASTIN TIME 35.3 SEC (23.5-35.8)
[2018-12-16 15:27] LABS: APPEARANCE,URINE CLEAR; BILIRUBIN,URINE NEGATIVE (NEGATIVE); COLOR,URINE AMBER; GLUCOSE, URINE NEGATIVE (NEGATIVE); KETONES,URINE NEGATIVE (NEGATIVE); LEUKOCYTE ESTERASE,URINE TRACE (NEGATIVE); NITRITE,URINE NEGATIVE (NEGATIVE); PROTEIN,URINE 30 mg/dL (NEGATIVE); URINE SPECIFIC GRAVITY 1.028; UROBILINOGEN,URINE NEGATIVE mg/dL (<2.0)
[2018-12-16 15:35] LABS: ALBUMIN 4.1 g/dL (3.5-5.0); ALKALINE PHOSPHATASE 134 U/L (38-126); ANION GAP 8 (5-19); ASPARTATE AMINO TRANSFERASE 46 U/L (14-36); BILIRUBIN,DIRECT 0.1 mg/dL (0.0-0.4); BILIRUBIN,TOTAL 0.5 mg/dL (0.2-1.3); BLOOD UREA NITROGEN 11 mg/dL (7-20); CALCIUM 9.3 mg/dL (8.4-10.2); CARBON DIOXIDE 29 mmol/L (22-30); CHLORIDE 102 mmol/L (98-107); GLUCOSE 100 mg/dL (75-110); POTASSIUM 4.5 mmol/L (3.6-5.0); TOTAL PROTEIN 7.8 g/dL (6.3-8.2)
--- NOTE | 2018-12-16 16:05 | RADIOLOGY REPORT (SQ) ---
EXAM DESCRIPTION: VENOUS UNILATERAL LOWER COMPLETED DATE/TIME: 12/16/2018 3:54 pm REASON FOR STUDY: left leg swelling COMPARISON: None. TECHNIQUE: Dynamic and static ortega scale and color images acquired of the left leg venous system. Se lected spectral images acquired with additional compression and augmentation maneuvers. The contralat eral common femoral vein and saphenofemoral junction were also imaged. Images stored on PACS. LIMITATIONS: Limited study due to the patient's body habitus. FINDINGS: COMMON FEMORAL: Normal phasicity, compression and augmentation. No visualized echogenic ma terial on ortega scale. No defects on color images. FEMORAL: Normal compression and augmentation. No visualized echogenic material on ortega scale. No defe cts on color images. POPLITEAL: Normal compression, augmentation. No visualized echogenic material on ortega scale. No defec ts on color images. CALF VESSELS: Normal compression, augmentation. No visualized echogenic material on ortega scale. No de fects on color images. GSV and SSV: Normal compression, augmentation. No visualized echogenic material on ortega scale. No def ects on color images. ANY DEEP VENOUS INSUFFICIENCY: No. ANY EVIDENCE OF POPLITEAL CYST: No. OTHER: No other significant finding. CONTRALATERAL COMMON FEMORAL VEIN AND SAPHENOFEMORAL JUNCTION: Normal phasicity, compression and augmentation. No visualized echogenic material on ortega scale. No de fects on color images. IMPRESSION: NO EVIDENCE DVT OR SVT IN THE LEFT LEG. TECHNICAL DOCUMENTATION: JOB ID: [id number] [employer]- All Rights Reserved Reading location - IP/workstation name: [email or web address]
--- NOTE | 2018-12-16 16:30 | ER Document Report ---
ED Extremity Problem, Lower - General Chief Complaint: Foot Pain Stated Complaint: LEFT FOOT PAIN Time Seen by Provider: 12/16/18 13:14 Primary Care Provider: [facility] [Primary Care Provider] - Follow up as needed Mode of Arrival: Wheelchair Notes: Patient is a 33-year-old female with a history of type 2 diabetes, asthma, anemia, depression, anxiety and hypertension who presents emergency department with a chief complaint of left foot swelling. Patient report the foot swelling has been present for about 4 days. Patient reports last Monday she was ambulating through her house when she hit the top of the foot on a chair. Patient reports the pain did start a few days after this. Patient reports she is not currently a cigarette smoker, on any hormone replacement or control has not been on any long trips. Patient reports she has attempted to use heat, ice and elevation with minimal relief. Patient reports lately she has been laying around and not very active due to her foot pain. Patient denies a history of blood clots or blood clotting disorder. Patient reports she is able to ambulate on this foot but that it does cause significant pain. TRAVEL OUTSIDE OF THE [place] IN LAST 30 DAYS: No - Related Data Allergies/Adverse Reactions: amoxicillin [Amoxicillin] Allergy (Verified 10/09/18 07:21) benzonatate [From Tessalon Perles] Allergy (Verified 10/09/18 07:21) iloperidone [From Fanapt] Allergy (Verified 10/09/18 07:21) Penicillins Allergy (Verified 10/09/18 07:21) Past Medical History - General Information source: Patient - Social History Smoking Status: Never Smoker Frequency of alcohol use: None Drug Abuse: None Lives with: Family Family History: DM, Hypertension, Other - Brother with blood clots, mother with hysterectomy Patient has suicidal ideation: No Patient has homicidal ideation: No - Past Medical History Cardiac Medical History: Reports: Hx Hypertension Pulmonary Medical History: Reports: Hx Asthma, Hx Bronchitis, Hx Pneumonia, Hx Sleep Apnea Neurological Medical History: Reports: None Endocrine Medical History: Reports: Hx Diabetes Mellitus Type 2 Renal/ Medical History: Reports: Hx Ovarian Cysts. Denies: Hx Peritoneal Dialysis Malignancy Medical History: Reports: None GI Medical History: Reports: Hx Gastroesophageal Reflux Disease, Hx Ulcer Musculoskeletal Medical History: Reports None Skin Medical History: Reports None Psychiatric Medical History: Reports: Hx Anxiety, Hx Attention Deficit Hyperactivity Disorder, Hx Bipolar Disorder, Hx Depression Traumatic Medical History: Reports: None Infectious Medical History: Reports: None Past Surgical History: Reports: Hx Adenoidectomy, Hx Gynecologic Surgery - R ovarian cyst 2010 Uterine fibroid removal 2010 in [place]., Hx Tonsillectomy - Immunizations Hx Diphtheria, Pertussis, Tetanus Vaccination: Yes - 06/2011 Review of Systems - Review of Systems Constitutional: No symptoms reported EENT: No symptoms reported Cardiovascular: No symptoms reported Respiratory: No symptoms reported Gastrointestinal: No symptoms reported Genitourinary: No symptoms reported Female Genitourinary: No symptoms reported Musculoskeletal: See HPI Skin: See HPI Hematologic/Lymphatic: No symptoms reported Neurological/Psychological: No symptoms reported Physical Exam - Vital signs Vitals: Temp Pulse Resp BP Pulse Ox 98.9 F 104 H 18 130/88 H 95 12/16/18 12:45 12/16/18 12:45 12/16/18 12:45 12/16/18 12:45 12/16/18 12:45 Interpretation: Tachycardic - Notes Notes: GENERAL: Well-appearing, well-nourished and in no acute distress. HEAD: Atraumatic, normocephalic. EYES: Pupils equal round and reactive to light, extraocular movements intact, sclera anicteric, conjunctiva are normal. ENT: Nares patent, oropharynx clear without exudates. Moist mucous membranes. NECK: Normal range of motion, supple without lymphadenopathy or JVD. LUNGS: Breath sounds clear to auscultation bilaterally and equal. No wheezes rales or rhonchi. HEART: Regular rate and rhythm without murmurs, rubs or gallops. ABDOMEN: Soft, obese, nontender, normoactive bowel sounds. No guarding, no rebound. No masses appreciated. BACK: No cervical, thoracic, lumbar midline tenderness. No saddle anesthesia, normal distal neurovascular exam. GENITOURINARY: Deferred. EXTREMITIES: Patient does have edema noted to the dorsal aspect of the left foot. Patient has a palpable dorsalis pedis and posterior tibial pulse. There is no erythema, abrasion or laceration. Patient does have good flexion extension of the left foot. Patient has point tenderness to the lateral and medial malleolus. Patient has tenderness to the dorsal aspect of the left foot. There is no ecchymosis noted. NEUROLOGICAL: Cranial nerves II through XII grossly intact. Normal speech, normal gait. PSYCH: Normal mood, normal affect. SKIN: Warm, Dry, normal turgor, no rashes or lesions noted. Course - Re-evaluation Re-evalutation: 12/16/18 16:29 Patient's venous Doppler was negative. Patient's blood work is unremarkable. I will obtain a x-ray of the foot and ankle as the patient does report an injury. Patient reports the swelling and pain started after the injury. There is no signs of cellulitis 12/16/18 17:06 Patient does not have any acute fracture dislocation of the foot. I did explain the patient she most likely has a contusion of the top of the left foot as she did hit up against an object last week. I did give patient strict return precautions. Continue to ice, elevate and use ibuprofen as needed for pain. 12/16/18 17:15 I did give patient information on Achilles calcaneal euthesopathy and treatment options to include splinting and foot exercises. - Vital Signs Vital signs: Temp Pulse Resp BP Pulse Ox 98.9 F 104 H 18 130/88 H 95 12/16/18 12:45 12/16/18 12:45 12/16/18 12:45 12/16/18 12:45 12/16/18 12:45 - Laboratory Result Diagrams: 12/16/18 14:38 12/16/18 14:38 Laboratory results interpreted by me: 12/16/18 12/16/18 12/16/18 14:38 14:38 14:38 RDW 14.4 H AST 46 H Alkaline Phosphatase 134 H Urine Protein 30 H Ur Leukocyte Esterase TRACE H 12/16/18 16:30 Patient does not have a leukocytosis or significant anemia. No alteration in electrolytes. AST slightly elevated at 46. Laboratory 12/16/18 12/16/18 12/16/18 14:38 14:38 14:38 WBC 9.3 RBC 4.13 Hgb 12.2 Hct 37.2 MCV 90 MCH 29.5 MCHC 32.8 RDW 14.4 H Plt Count 393 Lymph % (Auto) 27.1 Dewitt % (Auto) 5.2 Eos % (Auto) 1.7 Baso % (Auto) 0.3 Absolute Neuts (auto) 6.1 Absolute Lymphs (auto) 2.5 Absolute Monos (auto) 0.5 Absolute Eos (auto) 0.2 Absolute Basos (auto) 0.0 Seg Neutrophils % 65.7 PT 14.1 INR 1.08 APTT 35.3 Sodium 139.2 Potassium 4.5 Chloride 102 Carbon Dioxide 29 Anion Gap 8 BUN 11 Creatinine 0.89 Est GFR ( Amer) > 60 Est GFR (MDRD) Non-Af > 60 Glucose 100 Calcium 9.3 Total Bilirubin 0.5 Direct Bilirubin 0.1 Neonat Total Bilirubin Not Reportable Neonat Direct Bilirubin Not Reportable Neonat Indirect Bili Not Reportable AST 46 H ALT 49 Alkaline Phosphatase 134 H Total Protein 7.8 Albumin 4.1 Serum HCG, Qual Urine Color Urine Appearance Urine pH Ur Specific Inman Urine Protein Urine Glucose (UA) Urine Ketones Urine Blood Urine Nitrite Urine Bilirubin Urine Urobilinogen Ur Leukocyte Esterase Urine WBC (Auto) Urine RBC (Auto) Squamous Epi Cells Auto Urine Mucus (Auto) Urine Ascorbic Acid 12/16/18 12/16/18 14:38 14:38 WBC RBC Hgb Hct MCV MCH MCHC RDW Plt Count Lymph % (Auto) Dewitt % (Auto) Eos % (Auto) Baso % (Auto) Absolute Neuts (auto) Absolute Lymphs (auto) Absolute Monos (auto) Absolute Eos (auto) Absolute Basos (auto) Seg Neutrophils % PT INR APTT Sodium Potassium Chloride Carbon Dioxide Anion Gap BUN Creatinine Est GFR ( Amer) Est GFR (MDRD) Non-Af Glucose Calcium Total Bilirubin Direct Bilirubin Neonat Total Bilirubin Neonat Direct Bilirubin Neonat Indirect Bili AST ALT Alkaline Phosphatase Total Protein Albumin Serum HCG, Qual NEGATIVE Urine Color CODEY Urine Appearance CLEAR Urine pH 6.0 Ur Specific Inman 1.028 Urine Protein 30 H Urine Glucose (UA) NEGATIVE Urine Ketones NEGATIVE Urine Blood NEGATIVE Urine Nitrite NEGATIVE Urine Bilirubin NEGATIVE Urine Urobilinogen NEGATIVE Ur Leukocyte Esterase TRACE H Urine WBC (Auto) 2 Urine RBC (Auto) 1 Squamous Epi Cells Auto 1 Urine Mucus (Auto) RARE Urine Ascorbic Acid NEGATIVE - Diagnostic Test Radiology reviewed: Reports reviewed Radiology results interpreted by me: 12/16/18 16:29 Venous Doppler Study 12/16/18 13:18 IMPRESSION: NO EVIDENCE DVT OR SVT IN THE LEFT LEG. Chest X-Ray 12/16/18 13:19 IMPRESSION: NO ACUTE RADIOGRAPHIC FINDING IN THE CHEST. 12/16/18 17:06 Venous Doppler Study 12/16/18 13:18 IMPRESSION: NO EVIDENCE DVT OR SVT IN THE LEFT LEG. Chest X-Ray 12/16/18 13:19 IMPRESSION: NO ACUTE RADIOGRAPHIC FINDING IN THE CHEST. Ankle X-Ray 12/16/18 15:51 IMPRESSION: No acute bone abnormality of the left ankle. Prominent foot soft tissue swelling. Foot X-Ray 12/16/18 15:51 IMPRESSION: Prominent soft tissue swelling without obvious acute underlying bone abnormality of the left foot. Discharge - Discharge Clinical Impression: Foot pain, left Injury of left foot Qualifiers: Encounter type: initial encounter Qualified Code(s): S99.922A - Unspecified injury of left foot, initial encounter Condition: Stable Disposition: HOME, SELF-CARE Additional Instructions: Today you are seen in the emergency department for left foot swelling. You do not have a blood clot in the left leg, you do not have a fracture dislocation of the foot or the ankle, and your blood work was unremarkable for any infection. Please continue to elevate the left lower extremity, use ice, anti-inflammatory such as ibuprofen. Please return if you develop any severe swelling, increasing pain, numbness or weakness or redness that streaks up the leg. Contusion Your injury has resulted in a contusion -- a crushing of the deep tissues. No injury to important structures was detected during the physician's exam. Contusions vary in the amount of pain they cause, and in the length of time required for healing. Typically, the area will become bruised, and will remain painful to touch for two or three weeks. However, most patients are back to working and playing within a few days. After the initial period of rest and cold-packs, your symptoms (together with the doctor's recommendations) will determine how rapidly you can get back to full activity. Usually this means "do what feels okay, but don't do things that hurt." If re-examination was recommended, it's important to follow up as instruct ed. Call the doctor or return any time if pain increases, if swelling becomes severe, if you develop numbness or weakness in an injured extremity, or if any other alarming symptoms occur. Referrals: [facility] [Primary Care Provider] - Follow up as needed
--- NOTE | 2018-12-16 16:50 | RADIOLOGY REPORT (SQ) ---
EXAM DESCRIPTION: FOOT LEFT COMPLETE COMPLETED DATE/TIME: 12/16/2018 4:33 pm REASON FOR STUDY: hit foot on table, + swelling COMPARISON: None. NUMBER OF VIEWS: Three views. TECHNIQUE: AP, lateral and oblique radiographic images acquired of the left foot. LIMITATIONS: None. FINDINGS: MINERALIZATION: Normal. BONES: No acute fracture or dislocation. No worrisome bone lesions. JOINTS: No effusions. SOFT TISSUES: Prominent soft tissue swelling. OTHER: Achilles calcaneal enthesopathy. IMPRESSION: Prominent soft tissue swelling without obvious acute underlying bone abnormality of the left foot. TECHNICAL DOCUMENTATION: JOB ID: [id number] [employer]- All Rights Reserved Reading location - IP/workstation name: [email or web address]
--- NOTE | 2018-12-16 16:52 | RADIOLOGY REPORT (SQ) ---
EXAM DESCRIPTION: ANKLE LEFT COMPLETE COMPLETED DATE/TIME: 12/16/2018 4:32 pm REASON FOR STUDY: hit foot on table, + swelling COMPARISON: None. NUMBER OF VIEWS: Three views. TECHNIQUE: AP, lateral, and oblique radiographic images acquired of the left ankle. LIMITATIONS: None. FINDINGS: MINERALIZATION: Normal. BONES: No acute fracture or dislocation. No worrisome bone lesions. JOINTS: No effusions. SOFT TISSUES: Prominent foot soft tissue swelling. OTHER: Achilles calcaneal enthesopathy. IMPRESSION: No acute bone abnormality of the left ankle. Prominent foot soft tissue swelling. TECHNICAL DOCUMENTATION: JOB ID: [id number] [employer]- All Rights Reserved Reading location - IP/workstation name: [email or web address]
[2018-12-16 17:44] VITALS: BP 141/84
== END 2018-12-16 17:46 | disposition home or self-care (01) ==
LOC: ER 12:20
DX: S99.922A Unspecified injury of left foot, initial encounter (principal); M79.672 Pain in left foot; W22.03XA Walked into furniture, initial encounter; E11.9 Type 2 diabetes mellitus without complications; Z88.0 Allergy status to penicillin; I10 Essential (primary) hypertension
CPT/HCPCS: 36415; 71046; 80053; 81001; 84703; 85025; 85610; 85730; 93971; 99284

== ENCOUNTER 2019-03-27 14:44 | Emergency (ER) | payer OTHER ==
--- NOTE | 2019-03-27 15:12 | ER Document Report ---
ED Medical Screen (RME) - General Chief Complaint: Chest Pain Stated Complaint: FLU LIKE SYMPTOMS Time Seen by Provider: 03/27/19 15:06 Primary Care Provider: KIMBERLEY SMITH MD [Primary Care Provider] - Follow up as needed Mode of Arrival: Ambulatory Information source: Patient Notes: 33-year-old female presents to ED for cough cold congestion chest pain shortness of breath. She states she has been sick for about 3 days. She states 1 family member has RSV and another has strep. She does have elevated pulse elevated blood pressure. She has bilateral chest pain at the upper chest. She states she does have a history of apnea and sleep apnea patient does have a O2 sat of between 92 and 96 pulse between 102 and 112. Blood pressure was 133/86. We will get blood urine and chest x-ray and have seen in the main ED. Patient does have a chronic back pain and is on Percocet 11/29/2024 for her pain. Patient does have a history of palpitations and is on medicines for this I have greeted and performed a rapid initial assessment of this patient. A comprehensive ED assessment and evaluation of the patient, analysis of test results and completion of medical decision making process will be conducted by an additional ED providers. TRAVEL OUTSIDE OF THE [place] IN LAST 30 DAYS: No - Related Data Allergies/Adverse Reactions: amoxicillin [Amoxicillin] Allergy (Verified 03/27/19 14:47) benzonatate [From Tessalon Perles] Allergy (Verified 03/27/19 14:47) iloperidone [From Fanapt] Allergy (Verified 03/27/19 14:47) Penicillins Allergy (Verified 03/27/19 14:47) Past Medical History - General Information source: Patient - Social History Chew tobacco use (# tins/day): No Frequency of alcohol use: None Drug Abuse: None Lives with: Family Family history: None - Past Medical History Cardiac Medical History: Reports: Hx Hypertension Pulmonary Medical History: Reports: Hx Asthma, Hx Bronchitis, Hx Pneumonia, Hx Sleep Apnea EENT Medical History: Reports: None Neurological Medical History: Reports: None Endocrine Medical History: Reports: Hx Diabetes Mellitus Type 2 Renal/ Medical History: Reports: Hx Ovarian Cysts Malignancy Medical History: Reports: None GI Medical History: Reports: Hx Gastroesophageal Reflux Disease, Hx Ulcer Musculoskeltal Medical History: Reports None Skin Medical History: Reports None Psychiatric Medical History: Reports: Hx Anxiety, Hx Attention Deficit Hyper activity Disorder, Hx Bipolar Disorder, Hx Depression Traumatic Medical History: Reports: None Infectious Medical History: Reports: None Past Surgical History: Reports: Hx Adenoidectomy, Hx Gynecologic Surgery - R ovarian cyst 2010 Uterine fibroid removal 2010 in [place]., Hx Tonsillectomy - Immunizations Hx Diphtheria, Pertussis, Tetanus Vaccination: Yes - 06/2011 Physical Exam - Vital signs Vitals: Temp Pulse Resp BP Pulse Ox 98.9 F 111 H 28 H 150/93 H 98 03/27/19 15:03 03/27/19 15:03 03/27/19 15:03 03/27/19 15:03 03/27/19 15:03 Course - Vital Signs Vital signs: Temp Pulse Resp BP Pulse Ox 98.9 F 111 H 28 H 150/93 H 98 03/27/19 15:03 03/27/19 15:03 03/27/19 15:03 03/27/19 15:03 03/27/19 15:03 Doctor's Discharge - Discharge Referrals: KIMBERLEY SMITH MD [Primary Care Provider] - Follow up as needed
[2019-03-27] MEDS ORDERED: ASPIRIN 81 MG TABLET, CHEWABLE PO ONE (15:13)
[2019-03-27 15:51] LABS: ABSOLUTE EOSINOPHILS # (AUTO) 0.2 10^3/uL (0.0-0.6); ABSOLUTE LYMPHOCYTES (AUTO) 1.6 10^3/uL (0.5-4.7); ABSOLUTE MONOCYTES (AUTO) 0.5 10^3/uL (0.1-1.4); ABSOLUTE NEUT (AUTO) 5.1 10^3/uL (1.7-8.2); BASOPHILS % (AUTO) 0.4 % (0-2); EOSINOPHILS % (AUTO) 3.3 % (0-6); HEMATOCRIT 34.6 % (36.0-47.0); HEMOGLOBIN 11.2 g/dL (12.0-15.5); LYMPHOCYTES % (AUTO) 21.2 % (13-45); MEAN CORPUSCULAR HEMOGLOBIN 28.4 pg (27.0-33.4); MEAN CORPUSCULAR HGB CONC 32.5 g/dL (32.0-36.0); MEAN CORPUSCULAR VOLUME 87 fl (80-97); MONOCYTES % (AUTO) 6.5 % (3-13); PLATELET COUNT 351 10^3/uL (150-450); RED BLOOD COUNT 3.96 10^6/uL (3.72-5.28); RED CELL DISTRIBUTION WIDTH 14.1 % (11.5-14.0); SEGMENTED NEUTROPHILS % (AUTO) 68.6 % (42-78); TOTAL CELLS COUNTED % (AUTO) 100 %; WHITE BLOOD COUNT 7.4 10^3/uL (4.0-10.5)
--- NOTE | 2019-03-27 16:15 | RADIOLOGY REPORT (SQ) ---
EXAM DESCRIPTION: CHEST 2 VIEWS COMPLETED DATE/TIME: 03/27/2019 4:02 pm REASON FOR STUDY: chest pain short of breath COMPARISON: 12/16/2018 EXAM PARAMETERS: NUMBER OF VIEWS: two views TECHNIQUE: Digital Frontal and Lateral radiographic views of the chest acquired. RADIATION DOSE: NA LIMITATIONS: none FINDINGS: LUNGS AND PLEURA: No opacities, masses or pneumothorax. No pleural effusion. MEDIASTINUM AND HILAR STRUCTURES: No masses or contour abnormalities. HEART AND VASCULAR STRUCTURES: Heart normal size. No evidence for failure. BONES: No acute findings. HARDWARE: None in the chest. OTHER: No other significant finding. IMPRESSION: NO ACUTE RADIOGRAPHIC FINDING IN THE CHEST. TECHNICAL DOCUMENTATION: JOB ID: [id number] [employer]- All Rights Reserved Reading location - IP/workstation name: [email or web address]
[2019-03-27] MEDS ORDERED: IBUPROFEN 800 MG TABLET PO ONE (18:18)
--- NOTE | 2019-03-27 18:19 | ER Document Report ---
ED General - General Chief Complaint: Chest Pain Stated Complaint: FLU LIKE SYMPTOMS Time Seen by Provider: 03/27/19 15:06 Primary Care Provider: KIMBERLEY SMITH MD [Primary Care Provider] - Follow up in 1 week Mode of Arrival: Ambulatory Information source: Patient Notes: 33-year-old morbidly obese female with history of asthma sleep apnea chronic pain diabetes anxiety bipolar presents to the emergency department with complaints of cough, chest pain with cough, cold symptoms congestion for the past 3 days. She also complains of sore throat headache body aches sneezing, urinary frequency and pain with void. Reports low-grade fever last night. Complains of some nausea denies vomiting diarrhea. Reports recent exposure to RSV and strep. She reports she has been taking some cough drops which has helped her sore throat. She also reports she uses Flonase at night. She is complaining of headache now. Patient reports she is eating drinking as normal. TRAVEL OUTSIDE OF THE [place] IN LAST 30 DAYS: No - HPI Onset: Other - 3 days Onset/Duration: Persistent Quality of pain: Achy Associated symptoms: Body/muscle aches, Nonproductive cough, Fever, Headache, Nausea, Sore throat Exacerbated by: Coughing Relieved by: Denies Similar symptoms previously: No Recently seen / treated by doctor: No - Related Data Allergies/Adverse Reactions: amoxicillin [Amoxicillin] Allergy (Verified 03/27/19 15:07) benzonatate [From Tessalon Perles] Allergy (Verified 03/27/19 15:07) iloperidone [From Fanapt] Allergy (Verified 03/27/19 15:07) Penicillins Allergy (Verified 03/27/19 15:07) Home Medications: percocet, ditaliezam, albuterol, spereva, benzotropine, iron, metformin 500mg, sulcurfate, hydroxyzine, Past Medical History - General Information source: Patient Last Menstrual Period: January - Social History Smoking Status: Former Smoker Cigarette use (# per day): No Chew tobacco use (# tins/day): No Frequency of alcohol use: None Drug Abuse: None Lives with: Family Family History: DM, Hypertension, Other - Brother with blood clots, mother with hysterectomy Patient has suicidal ideation: No Patient has homicidal ideation: No - Past Medical History Cardiac Medical History: Reports: Hx Hypertension Pulmonary Medical History: Reports: Hx Asthma, Hx Bronchitis, Hx Pneumonia, Hx Sleep Apnea EENT Medical History: Reports: None Neurological Medical History: Reports: None Endocrine Medical History: Reports: Hx Diabetes Mellitus Type 2 Renal/ Medical History: Reports: Hx Ovarian Cysts Malignancy Medical History: Reports: None GI Medical History: Reports: Hx Gastroesophageal Reflux Disease, Hx Ulcer Musculoskeletal Medical History: Reports Other - Chronic back pain Skin Medical History: Reports None Psychiatric Medical History: Reports: Hx Anxiety, Hx Attention Deficit Hyperactivity Disorder, Hx Bipolar Disorder, Hx Depression Traumatic Medical History: Reports: None Infectious Medical History: Reports: None Past Surgical History: Reports: Hx Adenoidectomy, Hx Gynecologic Surgery - R ovarian cyst 2010 Uterine fibroid removal 2010 in [place]., Hx Tonsillectomy - Immunizations Hx Diphtheria, Pertussis, Tetanus Vaccination: Yes - 06/2011 Review of Systems - Review of Systems Notes: Review HPI for review of systems., All other systems negative Physical Exam - Vital signs Vitals: Temp Pulse Resp BP Pulse Ox 98.9 F 111 H 28 H 150/93 H 98 03/27/19 15:03 03/27/19 15:03 03/27/19 15:03 03/27/19 15:03 03/27/19 15:03 - General General appearance: Appears well, Alert In distress: None - HEENT Head: Normocephalic Eyes: Normal Conjunctiva: Normal Extraocular movements intact: Yes Eyelashes: Normal Ears: Normal External canal: Normal Tympanic membrane: Normal Sinus: Maxillary, Tenderness Nasal: Normal Mouth/Lips: Normal Mucous membranes: Moist Pharynx: Exudate Neck: Normal, Supple. No: Lymphadenopathy - Respiratory Respiratory status: No respiratory distress Chest status: Nontender Breath sounds: Normal Chest palpation: Normal - Cardiovascular Rhythm: Regular, Tachycardia Heart sounds: Normal auscultation, S1 appreciated, S2 appreciated - Abdominal Inspection: Normal, Morbidly Obese Distension: No distension Bowel sounds: Normal Tenderness: Nontender - Back Back: Normal, Nontender - Extremities General upper extremity: Normal ROM General lower extremity: Normal ROM - Neurological Neuro grossly intact: Yes Cognition: Normal Orientation: AAOx4 Marci Coma Scale Eye Opening: Spontaneous Marci Coma Scale Verbal: Oriented [place] Coma Scale Motor: Obeys Commands Marci Coma Scale Total: 15 Speech: Normal Cranial nerves: Normal Cerebellar coordination: Normal - Psychological Associated symptoms: Normal affect, Normal mood - Skin Skin Temperature: Warm Skin Moisture: Dry Skin Color: Normal Course - Re-evaluation Re-evalutation: 03/27/19 18:29 33-year-old female presents with multiple complaints. She complains of cough cold symptoms body aches headache sore throat sinus pain. She reports her chest hurts when she coughs. She also complains of urinary frequency only pain with void. 03/27/19 19:41 Labs unremarkable chest x-ray negative for pneumonia. Strep and flu negative throat culture pending. Fisher' view shows left maxillary sinus disease. Patient will be treated with Doxy. She reports she has take doxy in the past without problems. She was instructed to monitor temperature monitor her cough return for any concerns follow-up with her primary care provider next week. She verbalized understanding to all instructions. Laboratory 03/27/19 03/27/19 03/27/19 15:28 15:28 15:28 WBC 7.4 RBC 3.96 Hgb 11.2 L Hct 34.6 L MCV 87 MCH 28.4 MCHC 32.5 RDW 14.1 H Plt Count 351 Lymph % (Auto) 21.2 Cedar % (Auto) 6.5 Eos % (Auto) 3.3 Baso % (Auto) 0.4 Absolute Neuts (auto) 5.1 Absolute Lymphs (auto) 1.6 Absolute Monos (auto) 0.5 Absolute Eos (auto) 0.2 Absolute Basos (auto) 0.0 Seg Neutrophils % 68.6 Sodium 139.6 Potassium 3.9 Chloride 101 Carbon Dioxide 30 Anion Gap 9 BUN 7 Creatinine 0.80 Est GFR ( Amer) > 60 Est GFR (MDRD) Non-Af > 60 Glucose 111 H Calcium 8.7 Total Bilirubin 0.4 Direct Bilirubin 0.4 Neonat Total Bilirubin Not Reportable Neonat Direct Bilirubin Not Reportable Neonat Indirect Bili Not Reportable AST 43 H ALT 30 Alkaline Phosphatase 122 Troponin I < 0.012 Total Protein 8.1 Albumin 4.0 Urine Color Urine Appearance Urine pH Ur Specific [place] Urine Protein Urine Glucose (UA) Urine Ketones Urine Blood Urine Nitrite (Reflex) Urine Bilirubin Urine Urobilinogen Leukocyte Esterase Rfl Urine RBC (Auto) Urine WBC (Reflex) Squamous Epi Cells Auto Urine Mucus (Auto) Urine Ascorbic Acid Urine HCG, Qual Influenza A (Rapid) Influenza B (Rapid) Group A Strep Rapid 0103/27/19 03/27/19 15:28 18:53 18:53 WBC RBC Hgb Hct MCV MCH MCHC RDW Plt Count Lymph % (Auto) Cedar % (Auto) Eos % (Auto) Baso % (Auto) Absolute Neuts (auto) Absolute Lymphs (auto) Absolute Monos (auto) Absolute Eos (auto) Absolute Basos (auto) Seg Neutrophils % Sodium Potassium Chloride Carbon Dioxide Anion Gap BUN Creatinine Est GFR ( Amer) Est GFR (MDRD) Non-Af Glucose Calcium Total Bilirubin Direct Bilirubin Neonat Total Bilirubin Neonat Direct Bilirubin Neonat Indirect Bili AST ALT Alkaline Phosphatase Troponin I Total Protein Albumin Urine Color YELLOW Urine Appearance CLEAR Urine pH 7.0 Ur Specific [place] 1.020 Urine Protein NEGATIVE Urine Glucose (UA) NEGATIVE Urine Ketones NEGATIVE Urine Blood NEGATIVE Urine Nitrite (Reflex) NEGATIVE Urine Bilirubin NEGATIVE Urine Urobilinogen 2.0 H Leukocyte Esterase Rfl NEGATIVE Urine RBC (Auto) 2 Urine WBC (Reflex) 1 Squamous Epi Cells Auto 2 Urine Mucus (Auto) RARE Urine Ascorbic Acid NEGATIVE Urine HCG, Qual NEGATIVE Influenza A (Rapid) NEGATIVE Influenza B (Rapid) NEGATIVE Group A Strep Rapid NEGATIVE Chest X-Ray 03/27/19 15:14 IMPRESSION: NO ACUTE RADIOGRAPHIC FINDING IN THE CHEST. Sinuses X-Ray 03/27/19 18:15 IMPRESSION: Left maxillary sinus disease. 03/27/19 19:51 - Vital Signs Vital signs: Temp Pulse Resp BP Pulse Ox 98.3 F 95 20 134/64 H 100 03/27/19 19:52 03/27/19 19:52 03/27/19 19:52 03/27/19 19:52 03/27/19 19:52 - Laboratory Result Diagrams: 03/27/19 15:28 03/27/19 15:28 Laboratory results interpreted by me: 03/27/19 03/27/19 03/27/19 15:28 15:28 15:28 Hgb 11.2 L Hct 34.6 L RDW 14.1 H Glucose 111 H AST 43 H Urine Urobilinogen 2.0 H - Diagnostic Test Radiology reviewed: Reports reviewed - EKG Interpretation by Me EKG shows normal: Sinus rhythm Rate: Tachycardia Discharge - Discharge Clinical Impression: Cough, Flu-like symptoms, Tonsillar exudate Sinus infection Qualifiers: Sinusitis location: unspecified location Chronicity: unspecified Qualified Code(s): J32.9 - Chronic sinusitis, unspecified Condition: Stable Disposition: HOME, SELF-CARE Instructions: Doxycycline ([facility]), Sinusitis ([facility]), Sore Throat ([facility]) Additional Instructions: *You have been evaluated for flu like symptoms today, cough, sore throat headache sinus pressure, Sinus infection *Increase fluid intake as discussed *Take medication as prescribed, use your flonase as prescribed *Monitor your temperature, take Tylenol as indicated *Follow up with a primary care provider within one week for recheck *Return to ED for worsening condition, changes, needs Prescriptions: Doxycycline Hyclate 100 mg PO BID #20 tablet.dr Forms: Elevated Blood Pressure Referrals: KIMBERLEY SMITH MD [Primary Care Provider] - Follow up in 1 week
[2019-03-27 18:20] LABS: ALKALINE PHOSPHATASE 122 U/L (38-126); ANION GAP 9 (5-19); ASPARTATE AMINO TRANSFERASE 43 U/L (14-36); BILIRUBIN,DIRECT 0.4 mg/dL (0.0-0.4); BILIRUBIN,TOTAL 0.4 mg/dL (0.2-1.3); BLOOD UREA NITROGEN 7 mg/dL (7-20); CALCIUM 8.7 mg/dL (8.4-10.2); CARBON DIOXIDE 30 mmol/L (22-30); CHLORIDE 101 mmol/L (98-107); GLUCOSE 111 mg/dL (75-110); POTASSIUM 3.9 mmol/L (3.6-5.0); TOTAL PROTEIN 8.1 g/dL (6.3-8.2)
--- NOTE | 2019-03-27 18:48 | RADIOLOGY REPORT (SQ) ---
EXAM DESCRIPTION: PARANASAL SINUSES COMPLETED DATE/TIME: 03/27/2019 6:37 pm REASON FOR STUDY: sinus pain COMPARISON: None. NUMBER OF VIEWS: Three views TECHNIQUE: Images of the paranasal sinuses acquired. LIMITATIONS: None. FINDINGS: ORBITS: No fracture. No foreign body. SINUSES: There appears to be mucoperiosteal thickening in the left maxillary sinus. FACIAL BONES: No fracture. OTHER: No other significant finding. IMPRESSION: Left maxillary sinus disease. TECHNICAL DOCUMENTATION: JOB ID: [id number] [employer]- All Rights Reserved Reading location - IP/workstation name: [email or web address]
[2019-03-27 19:10] LABS: APPEARANCE,URINE CLEAR; BILIRUBIN,URINE NEGATIVE (NEGATIVE); COLOR,URINE YELLOW; GLUCOSE, URINE NEGATIVE (NEGATIVE); KETONES,URINE NEGATIVE (NEGATIVE); PROTEIN,URINE NEGATIVE (NEGATIVE)
[2019-03-27 19:26] LABS: A TYPE INFLUENZA AG NEGATIVE (NEGATIVE); B INFLUENZA AG NEGATIVE (NEGATIVE)
[2019-03-27] MEDS ORDERED: DOXYCYCLINE HYCLATE 100 MG TABLET PO ONE (19:45)
[2019-03-27 19:55] VITALS: BP 134/64
--- NOTE | 2019-03-28 09:20 | EKG REPORT ---
SEVERITY:- OTHERWISE NORMAL ECG - SINUS TACHYCARDIA [Now Present] SIGNIFICANT RHYTHM CHANGES [Now Absent] SINUS RHYTHM : Confirmed by: Luzmaria Lindsey 28-Mar-2019 09:18:25
== END 2019-03-27 20:14 | disposition home or self-care (01) ==
LOC: ER 14:44
DX: J32.9 Chronic sinusitis, unspecified (principal); J11.1 Influenza due to unidentified influenza virus with other respiratory manifestations; J35.8 Other chronic diseases of tonsils and adenoids; R05 Cough; R07.9 Chest pain, unspecified; R00.0 Tachycardia, unspecified; R09.81 Nasal congestion; R51 Headache; M79.10 Myalgia, unspecified site; R11.0 Nausea; R50.9 Fever, unspecified; Z87.891 Personal history of nicotine dependence; I10 Essential (primary) hypertension; J45.909 Unspecified asthma, uncomplicated; E11.9 Type 2 diabetes mellitus without complications
CPT/HCPCS: 36415; 70220; 71046; 80053; 81001; 81025; 84484; 85025; 87070; 87804; 87880; 93005; 93010; 99283

== ENCOUNTER 2019-04-01 12:29 | Emergency (ER) | payer OTHER ==
--- NOTE | 2019-04-01 13:48 | ER Document Report ---
ED Medical Screen (RME) - General Chief Complaint: Breathing Difficulty Stated Complaint: DIFFICULTY BREATHING Time Seen by Provider: 04/01/19 13:44 Primary Care Provider: KIMBERLEY SMITH MD [Primary Care Provider] - Follow up as needed Mode of Arrival: Wheelchair Notes: 33-year-old female presented to ED for complaint of cough congestion short of breath. She states it is not getting any better. She was seen in the emergency room last week for the same cough and congestion. She states the nasal stuff is gotten better the ears still have pressure she states she is continuing to cough but she feels like she is having pressure some sitting on her chest. Patient is alert oriented respirations 20 with O2 sat of 95%. She states that her blood sugar was 90 something this morning she tried to eat a peanut butter and jelly sandwich and then it was 297 by the time the ambulance got there. I have greeted and performed a rapid initial assessment of this patient. A comprehensive ED assessment and evaluation of the patient, analysis of test results and completion of medical decision making process will be conducted by an additional ED providers. TRAVEL OUTSIDE OF THE [place] IN LAST 30 DAYS: No - Related Data Allergies/Adverse Reactions: amoxicillin [Amoxicillin] Allergy (Verified 03/27/19 15:07) benzonatate [From Tessalon Perles] Allergy (Verified 03/27/19 15:07) iloperidone [From Fanapt] Allergy (Verified 03/27/19 15:07) Penicillins Allergy (Verified 03/27/19 15:07) Past Medical History - Social History Family history: None - Past Medical History Cardiac Medical History: Reports: Hx Hypertension Pulmonary Medical History: Reports: Hx Asthma, Hx Bronchitis, Hx Pneumonia, Hx Sleep Apnea Endocrine Medical History: Reports: Hx Diabetes Mellitus Type 2 Renal/ Medical History: Reports: Hx Ovarian Cysts GI Medical History: Reports: Hx Gastroesophageal Reflux Disease, Hx Ulcer Psychiatric Medical History: Reports: Hx Anxiety, Hx Attention Deficit Hyperactivity Disorder, Hx Bipolar Disorder, Hx Depression Past Surgical History: Reports: Hx Adenoidectomy, Hx Gynecologic Surgery - R ovarian cyst 2010 Uterine fibroid removal 2009 in [place]., Hx Tonsillectomy - Immunizations Hx Diphtheria, Pertussis, Tetanus Vaccination: Yes - 06/2011 Physical Exam - Vital signs Vitals: Temp Pulse Resp BP Pulse Ox 97.6 F 115 H 22 H 121/65 95 04/01/19 12:47 04/01/19 12:47 04/01/19 12:47 04/01/19 12:47 04/01/19 12:47 Course - Vital Signs Vital signs: Temp Pulse Resp BP Pulse Ox 97.6 F 115 H 22 H 121/65 95 04/01/19 12:47 04/01/19 12:47 04/01/19 12:47 04/01/19 12:47 04/01/19 12:47 Doctor's Discharge - Discharge Referrals: KIMBERLEY SMITH MD [Primary Care Provider] - Follow up as needed
[2019-04-01 14:28] LABS: ABSOLUTE EOSINOPHILS # (AUTO) 0.2 10^3/uL (0.0-0.6); ABSOLUTE LYMPHOCYTES (AUTO) 3.1 10^3/uL (0.5-4.7); ABSOLUTE MONOCYTES (AUTO) 0.5 10^3/uL (0.1-1.4); ABSOLUTE NEUT (AUTO) 5.2 10^3/uL (1.7-8.2); BASOPHILS % (AUTO) 0.4 % (0-2); EOSINOPHILS % (AUTO) 2.2 % (0-6); HEMATOCRIT 36.3 % (36.0-47.0); HEMOGLOBIN 11.9 g/dL (12.0-15.5); LYMPHOCYTES % (AUTO) 34.7 % (13-45); MEAN CORPUSCULAR HEMOGLOBIN 28.8 pg (27.0-33.4); MEAN CORPUSCULAR HGB CONC 32.8 g/dL (32.0-36.0); MEAN CORPUSCULAR VOLUME 88 fl (80-97); PLATELET COUNT 368 10^3/uL (150-450); RED BLOOD COUNT 4.13 10^6/uL (3.72-5.28); RED CELL DISTRIBUTION WIDTH 14.2 % (11.5-14.0); SEGMENTED NEUTROPHILS % (AUTO) 57.7 % (42-78); TOTAL CELLS COUNTED % (AUTO) 100 %
--- NOTE | 2019-04-01 14:35 | ER Document Report ---
ED General - General Chief Complaint: Shortness Of Breath Stated Complaint: DIFFICULTY BREATHING Time Seen by Provider: 04/01/19 13:44 Primary Care Provider: KIMBERLEY SMITH MD [Primary Care Provider] - Follow up in 3-5 days Mode of Arrival: Wheelchair Notes: 33-year-old female with history of asthma presents with dyspnea and chest pressure. Patient was diagnosed with sinusitis on 27 March and was started on doxycycline which she states she is almost done with. Pt has also been taking Fl onase and her albuterol inhaler. Patient states her nasal congestion has improved however the shortness of breath and cough have gotten progressively worse. Associated chest congestion. Pt denies fever. Denies nausea/vomiting, abdominal pain, diarrhea/constipation. TRAVEL OUTSIDE OF THE [place] IN LAST 30 DAYS: No - Related Data Allergies/Adverse Reactions: amoxicillin [Amoxicillin] Allergy (Verified 04/01/19 13:49) benzonatate [From Tessalon Perles] Allergy (Verified 04/01/19 13:49) iloperidone [From Fanapt] Allergy (Verified 04/01/19 13:49) Penicillins Allergy (Verified 04/01/19 13:49) Past Medical History - Social History Smoking Status: Never Smoker Frequency of alcohol use: None Drug Abuse: None Family History: DM, Hypertension, Other - Brother with blood clots, mother with hysterectomy Patient has suicidal ideation: No Patient has homicidal ideation: No - Past Medical History Cardiac Medical History: Reports: Hx Hypertension Pulmonary Medical History: Reports: Hx Asthma, Hx Bronchitis, Hx Pneumonia, Hx Sleep Apnea Endocrine Medical History: Reports: Hx Diabetes Mellitus Type 2 Renal/ Medical History: Reports: Hx Ovarian Cysts GI Medical History: Reports: Hx Gastroesophageal Reflux Disease, Hx Ulcer Psychiatric Medical History: Reports: Hx Anxiety, Hx Attention Deficit Hyperactivity Disorder, Hx Bipolar Disorder, Hx Depression Past Surgical History: Reports: Hx Adenoidectomy, Hx Gynecologic Surgery - R ovarian cyst 2010 Uterine fibroid removal 2009 in [place]., Hx Tonsillectomy - Immunizations Hx Diphtheria, Pertussis, Tetanus Vaccination: Yes - 06/2011 Review of Systems - Review of Systems Notes: Constitutional: Negative for fever. HENT: Negative for sore throat. Eyes: Negative for visual changes. Cardiovascular: Positive for chest pain. Respiratory: Positive for shortness of breath and nonproductive cough. Gastrointestinal: Negative for abdominal pain, vomiting or diarrhea. Genitourinary: Negative for dysuria. Musculoskeletal: Negative for back pain. Skin: Negative for rash. Neurological: Negative for headaches, weakness or numbness. 10 point ROS negative except as marked above and in HPI. Physical Exam - Vital signs Vitals: Temp Pulse Resp BP Pulse Ox 97.6 F 115 H 22 H 121/65 95 04/01/19 12:47 04/01/19 12:47 04/01/19 12:47 04/01/19 12:47 04/01/19 12:47 - Notes Notes: GENERAL: Well-appearing, well-nourished and in no acute distress. HEAD: Atraumatic, normocephalic. EYES: Extraocular movements intact, sclera anicteric, conjunctiva are normal. ENT: TMs normal, nares patent, oropharynx clear without exudates. Uvula midline without edema, no trismus, no muffled voice. No obvious OVERHEAD FOREMAN. Moist mucous membranes. NECK: Normal range of motion, supple without lymphadenopathy or JVD. LUNGS: Decreased breath sounds, no wheezing, no rales, no stridor. HEART: Regular rate and rhythm without murmurs, rubs or gallops. EXTREMITIES: Normal range of motion, no pitting or edema. No clubbing or cyanosis. NEUROLOGICAL: Cranial nerves II through XII grossly intact. Normal speech, normal gait. PSYCH: Normal mood, normal affect. SKIN: Warm, Dry, normal turgor, no rashes or lesions noted. Course - Re-evaluation Re-evalutation: 04/01/19 Nontoxic, well appearing obese 33 y/o female presents for dyspnea and chest pressure. Pt recently diagnosed with sinusitis and prescribed doxycycline. Pt's O2 initially 95% upon presentation and mildly tachypneic. Last visit pt's O2 96-100%. Pt is also mildly tachycardic. Workup was initiated in triage by [employer] which included blood cultures. Pt's CBC shows no leukocytosis (WBC 9) and mild anemia (hgb 11.9). Troponin and d dimer added on. 04/01/19 14:40 D dimer neg. 04/01/19 14:42 CXR negative. 04/01/19 14:57 CMP WNL except gluc 152 and alk phos 134. 04/01/19 15:11 Trop neg 04/01/19 16:38 Pt ambulated and pulse ox 99-100% 04/01/19 Discussed all results with pt. Pt prescribed prednisone and inhaler due to bronchitis. Strict return precautions given. Pt voices understanding and agrees with plan of care. - Vital Signs Vital signs: Temp Pulse Resp BP Pulse Ox 97.6 F 115 H 21 H 100/85 98 04/01/19 12:47 04/01/19 12:47 04/01/19 15:00 04/01/19 16:01 04/01/19 16:01 - Laboratory Result Diagrams: 04/01/19 14:10 04/01/19 14:10 Laboratory results interpreted by me: 04/01/19 04/01/19 04/01/19 14:10 14:10 14:10 Hgb 11.9 L RDW 14.2 H Glucose 152 H Alkaline Phosphatase 139 H Urine Blood LARGE H Discharge - Discharge Clinical Impression: Acute bronchitis Qualifiers: Bronchitis organism: unspecified organism Qualified Code(s): J20.9 - Acute bronchitis, unspecified Condition: Stable Disposition: HOME, SELF-CARE Instructions: Bronchitis ([facility]), Bronchitis With Bronchospasm (Wheezing) ([facility]) Additional Instructions: Your chest x-ray did not show a pneumonia and was otherwise normal. Please finish all doses of your doxycycline even if you feel better. Please take prednisone as prescribed and finish all doses even if you feel better, it will raise your blood sugars. Please take Tessalon Perles as needed for cough. Please take inhaler as needed for shortness of breath. Return to ER for any worsening symptoms, including worsening shortness of breath, chest pain, coughing up blood, fever, vomiting/nausea, abdominal pain, or any other symptoms that are c oncerning to you. Prescriptions: Prednisone [Deltasone 20 mg Tablet] 1 tab PO BID 5 Days #10 tablet Albuterol Sulfate [Proair HFA Inhalation Aerosol 8.5 gm MDI] 2 puff IH Q4H PRN #1 mdi PRN Reason: Forms: Return to Work Referrals: KIMBERLEY SMITH MD [Primary Care Provider] - Follow up in 3-5 days
--- NOTE | 2019-04-01 14:38 | RADIOLOGY REPORT (SQ) ---
EXAM DESCRIPTION: CHEST 2 VIEWS COMPLETED DATE/TIME: 04/01/2019 2:27 pm REASON FOR STUDY: Short of breath chest pain recent cough and cold COMPARISON: 03/27/2019 EXAM PARAMETERS: NUMBER OF VIEWS: two views TECHNIQUE: Digital Frontal and Lateral radiographic views of the chest acquired. RADIATION DOSE: NA LIMITATIONS: none FINDINGS: LUNGS AND PLEURA: No opacities, masses or pneumothorax. No pleural effusion. MEDIASTINUM AND HILAR STRUCTURES: No masses or contour abnormalities. HEART AND VASCULAR STRUCTURES: Stable appearance. No evidence for failure. BONES: No acute findings. HARDWARE: None in the chest. OTHER: No other significant finding. IMPRESSION: 1. No significant interval changes since the prior examination dated 03/27/2019. No acu te findings. TECHNICAL DOCUMENTATION: JOB ID: [id number] [employer]- All Rights Reserved Reading location - IP/workstation name: [email or web address]
[2019-04-01 14:39] LABS: APPEARANCE,URINE CLEAR; BILIRUBIN,URINE NEGATIVE (NEGATIVE); COLOR,URINE YELLOW; GLUCOSE, URINE NEGATIVE (NEGATIVE); KETONES,URINE NEGATIVE (NEGATIVE); PROTEIN,URINE NEGATIVE (NEGATIVE); UROBILINOGEN,URINE NEGATIVE mg/dL (<2.0)
[2019-04-01] MEDS ORDERED: PREDNISONE 20 MG TABLET PO ONE (14:41)
[2019-04-01] MEDS ORDERED: IPRATROPIUM/ALBUTEROL 0.5-2.5 MG/3 ML AMPUL NEB ONE (14:41)
[2019-04-01 14:50] LABS: ALKALINE PHOSPHATASE 139 U/L (38-126); ANION GAP 11 (5-19); ASPARTATE AMINO TRANSFERASE 25 U/L (14-36); BILIRUBIN,DIRECT 0.3 mg/dL (0.0-0.4); BILIRUBIN,TOTAL 0.3 mg/dL (0.2-1.3); BLOOD UREA NITROGEN 13 mg/dL (7-20); CARBON DIOXIDE 25 mmol/L (22-30); CHLORIDE 103 mmol/L (98-107); GLUCOSE 152 mg/dL (75-110); POTASSIUM 4.3 mmol/L (3.6-5.0); TOTAL PROTEIN 8.2 g/dL (6.3-8.2)
[2019-04-01] MEDS ORDERED: KETOROLAC TROMETHAMINE 60 MG/2 ML SDV IM ONE (16:38)
[2019-04-01 17:03] VITALS: BP 100/85
--- NOTE | 2019-04-01 21:52 | EKG REPORT ---
SEVERITY:- NORMAL ECG - SINUS RHYTHM : Confirmed by: Aleah Arndt MD 01-Apr-2019 21:51:56
== END 2019-04-01 17:39 | disposition home or self-care (01) ==
LOC: ER 12:29
DX: J20.9 Acute bronchitis, unspecified (principal); J45.909 Unspecified asthma, uncomplicated; J32.9 Chronic sinusitis, unspecified; R07.89 Other chest pain; R00.0 Tachycardia, unspecified; D64.9 Anemia, unspecified; R06.02 Shortness of breath; R05 Cough; R09.89 Other specified symptoms and signs involving the circulatory and respiratory systems; E66.9 Obesity, unspecified; E11.9 Type 2 diabetes mellitus without complications; I10 Essential (primary) hypertension; Z79.899 Other long term (current) drug therapy; Z87.01 Personal history of pneumonia (recurrent); Z88.0 Allergy status to penicillin; Z88.8 Allergy status to other drugs, medicaments and biological substances
CPT/HCPCS: 93005; 94640; 99285; 96372; 36415; 87040; 83690; 84703; 85025; 80053; 81001; 84484; 85379; 71046; 93010; J1885; J7512; J7620

== ENCOUNTER 2019-04-20 10:28 | Emergency (ER) | payer OTHER ==
[2019-04-20] MEDS ORDERED: ONDANSETRON 4 MG TAB.RAPDIS PO ONE (10:42)
--- NOTE | 2019-04-20 10:44 | ER Document Report ---
ED Medical Screen (RME) - General Chief Complaint: Flank Pain Stated Complaint: RIGHT FLANK PAIN Time Seen by Provider: 04/20/19 10:39 Primary Care Provider: KIMBERLEY SMITH MD [Primary Care Provider] - Follow up as needed TRAVEL OUTSIDE OF THE [place] IN LAST 30 DAYS: No - HPI Notes: 04/20/19 10:43 Patient is a 34-year-old female who presents complaining of right flank pain that radiates around into her abdomen that is been present for the past several days. She has had some nausea. She is urinating normally and having normal bowel movements. No vaginal discharge, odor, or bleeding. No fever. I have treated and performed a rapid initial assessment of this patient. A comprehensive ED assessment and evaluation of the patient, analysis of test results and completion of medical decision making process will be conducted by additional ED providers. PHYSICAL EXAMINATION: GENERAL: Well-appearing, well-nourished and in no acute distress. A&Ox4. Answers questions appropriately. - Related Data Allergies/Adverse Reactions: amoxicillin [Amoxicillin] Allergy (Verified 04/20/19 10:40) benzonatate [From Tessalon Perles] Allergy (Verified 04/20/19 10:40) iloperidone [From Fanapt] Allergy (Verified 04/20/19 10:40) Penicillins Allergy (Verified 04/20/19 10:40) Past Medical History - Social History Family history: None - Past Medical History Cardiac Medical History: Reports: Hx Hypertension Pulmonary Medical History: Reports: Hx Asthma, Hx Bronchitis, Hx Pneumonia, Hx Sleep Apnea Endocrine Medical History: Reports: Hx Diabetes Mellitus Type 2 Renal/ Medical History: Reports: Hx Ovarian Cysts GI Medical History: Reports: Hx Gastroesophageal Reflux Disease, Hx Ulcer Psychiatric Medical History: Reports: Hx Anxiety, Hx Attention Deficit Hyperactivity Disorder, Hx Bipolar Disorder, Hx Depression Past Surgical History: Reports: Hx Adenoidectomy, Hx Gynecologic Surgery - R ovarian cyst 2010 Uterine fibroid removal 2009 in [place]., Hx Tonsillectomy - Immunizations Hx Diphtheria, Pertussis, Tetanus Vaccination: Yes - 06/2011 Doctor's Discharge - Discharge Referrals: KIMBERLEY SMITH MD [Primary Care Provider] - Follow up as needed
[2019-04-20 11:23] LABS: ABSOLUTE EOSINOPHILS # (AUTO) 0.1 10^3/uL (0.0-0.6); ABSOLUTE LYMPHOCYTES (AUTO) 2.3 10^3/uL (0.5-4.7); ABSOLUTE MONOCYTES (AUTO) 0.5 10^3/uL (0.1-1.4); ABSOLUTE NEUT (AUTO) 6.8 10^3/uL (1.7-8.2); BASOPHILS % (AUTO) 0.3 % (0-2); EOSINOPHILS % (AUTO) 1.4 % (0-6); HEMATOCRIT 35.5 % (36.0-47.0); HEMOGLOBIN 11.6 g/dL (12.0-15.5); LYMPHOCYTES % (AUTO) 23.8 % (13-45); MEAN CORPUSCULAR HEMOGLOBIN 28.6 pg (27.0-33.4); MEAN CORPUSCULAR HGB CONC 32.6 g/dL (32.0-36.0); MEAN CORPUSCULAR VOLUME 88 fl (80-97); MONOCYTES % (AUTO) 4.9 % (3-13); PLATELET COUNT 349 10^3/uL (150-450); RED BLOOD COUNT 4.05 10^6/uL (3.72-5.28); RED CELL DISTRIBUTION WIDTH 14.8 % (11.5-14.0); SEGMENTED NEUTROPHILS % (AUTO) 69.6 % (42-78); TOTAL CELLS COUNTED % (AUTO) 100 %; WHITE BLOOD COUNT 9.8 10^3/uL (4.0-10.5)
[2019-04-20 11:29] LABS: APPEARANCE,URINE SLIGHTLY-CLOUDY; BILIRUBIN,URINE NEGATIVE (NEGATIVE); COLOR,URINE YELLOW; GLUCOSE, URINE NEGATIVE (NEGATIVE); KETONES,URINE NEGATIVE (NEGATIVE); PROTEIN,URINE NEGATIVE (NEGATIVE); URINE SPECIFIC GRAVITY 1.014; UROBILINOGEN,URINE NEGATIVE mg/dL (<2.0)
[2019-04-20 11:45] LABS: ALBUMIN 3.8 g/dL (3.5-5.0); ALKALINE PHOSPHATASE 158 U/L (38-126); ANION GAP 8 (5-19); ASPARTATE AMINO TRANSFERASE 44 U/L (14-36); BILIRUBIN,TOTAL 0.4 mg/dL (0.2-1.3); BLOOD UREA NITROGEN 7 mg/dL (7-20); CALCIUM 9.2 mg/dL (8.4-10.2); CARBON DIOXIDE 28 mmol/L (22-30); CHLORIDE 102 mmol/L (98-107); GLUCOSE 154 mg/dL (75-110); POTASSIUM 4.3 mmol/L (3.6-5.0); TOTAL PROTEIN 7.4 g/dL (6.3-8.2)
[2019-04-20 12:14] VITALS: BP 144/89
--- NOTE | 2019-04-20 14:23 | ER Document Report ---
Entered by GUY HALL SCRIBE 04/20/19 1124 Acting as scribe for:VIRA ANNE MD ED General - General Chief Complaint: Flank Pain Stated Complaint: RIGHT FLANK PAIN Time Seen by Provider: 04/20/19 10:39 Primary Care Provider: KIMBERLEY LEDESMA MD [Primary Care Provider] - Follow up as needed Mode of Arrival: Ambulatory Information source: Patient Notes: This 34-year-old female patient presents to the emergency department today with complaints of right sided back pain that radiates around to the front of her abdomen. Patient has chronic back pain and is on pain management. Patient states her pain began about 3 to 4 days ago and she describes it as sharp. Patient states "everything makes it worse" when asked if there was any specific activity that exacerbated her pain. Patient denies constipation, flank pain, or urinary symptoms. Pertinent PMHx/PSHx: Chronic back pain, on pain management - additional PMHx/PSHx not pertinent to this visit as recorded. PCP: Dr. Kimberley Ledesma TRAVEL OUTSIDE OF THE [place] IN LAST 30 DAYS: No - Related Data Allergies/Adverse Reactions: amoxicillin [Amoxicillin] Allergy (Verified 04/20/19 10:40) benzonatate [From Tessalon Perles] Allergy (Verified 04/20/19 10:40) iloperidone [From Fanapt] Allergy (Verified 04/20/19 10:40) Penicillins Allergy (Verified 04/20/19 10:40) Home Medications: prozason. visteril. metformin. oxycodone. omeprazole Past Medical History - General Information source: Patient - Social History Smoking Status: Never Smoker Cigarette use (# per day): No Chew tobacco use (# tins/day): No Frequency of alcohol use: None Drug Abuse: None Lives with: Family Family History: Reviewed & Not Pertinent, DM, Hypertension, Other - Brother with blood clots, mother with hysterectomy Patient has suicidal ideation: No Patient has homicidal ideation: No - Past Medical History Cardiac Medical History: Reports: Hx Hypertension Pulmonary Medical History: Reports: Hx Asthma, Hx Bronchitis, Hx Pneumonia, Hx Sleep Apnea Endocrine Medical History: Reports: Hx Diabetes Mellitus Type 2 Renal/ Medical History: Reports: Hx Ovarian Cysts GI Medical History: Reports: Hx Gastroesophageal Reflux Disease, Hx Ulcer Psychiatric Medical History: Reports: Hx Anxiety, Hx Attention Deficit Hyperactivity Disorder, Hx Bipolar Disorder, Hx Depression Past Surgical History: Reports: Hx Adenoidectomy, Hx Gynecologic Surgery - R ovarian cyst 2010 Uterine fibroid removal 2010 in [place]., Hx Tonsillectomy - Immunizations Hx Diphtheria, Pertussis, Tetanus Vaccination: Yes - 06/2011 Review of Systems - Review of Systems Constitutional: No symptoms reported EENT: No symptoms reported Cardiovascular: No symptoms reported Respiratory: No symptoms reported Gastrointestinal: denies: Constipation Genitourinary: denies: Dysuria, Flank pain Female Genitourinary: No symptoms reported Musculoskeletal: See HPI, Muscle pain Skin: No symptoms reported Hematologic/Lymphatic: No symptoms reported Neurological/Psychological: No symptoms reported -: Yes All other systems reviewed and negative Physical Exam - Vital signs Vitals: Temp Pulse Resp BP Pulse Ox 97.7 F 110 H 16 145/63 H 97 04/20/19 10:44 04/20/19 10:44 04/20/19 10:44 04/20/19 10:44 04/20/19 10:44 - Notes Notes: Physical Exam: General: Alert, appears well. HEENT: Normocephalic. Atraumatic. PERRL. Extraocular movements intact. Oropharynx clear. Neck: Supple. Non-tender. Respiratory: No respiratory distress. Clear and equal breath sounds bilaterally. Tenderness with palpation just inferior to the right anterior lateral rib margin. Cardiovascular: Regular rate and rhythm. Abdominal: Morbidly obese. Non-tender. No distension. Normal Bowel Sounds. Back: Tenderness with palpation of the right lateral lumbar paraspinal musculature. No midline bony tenderness. Extremities: Moves all four extremities. Upper extremities: Normal inspection. Normal ROM. Lower extremities: Normal inspection. No edema. Normal ROM. Neurological: Normal cognition. AAOx4. Normal speech. Psychological: Normal affect. Normal Mood. Skin: Warm. Dry. Normal color. Course - Vital Signs Vital signs: Temp Pulse Resp BP Pulse Ox 98.1 F 99 20 144/89 H 99 04/20/19 12:10 04/20/19 12:10 04/20/19 12:10 04/20/19 12:10 04/20/19 12:10 - Laboratory Result Diagrams: 04/20/19 10:50 04/20/19 10:50 Laboratory results interpreted by me: 04/20/19 04/20/19 10:50 10:50 Hgb 11.6 L Hct 35.5 L RDW 14.8 H Glucose 154 H AST 44 H ALT 49 H Alkaline Phosphatase 158 H Discharge - Discharge Clinical Impression: Pain in abdominal muscle of right flank Condition: Stable Disposition: HOME, SELF-CARE Additional Instructions: Muscle Strain: You have strained a the muscles in your right low back, flank and side. This often occurs with strenuous exertion, or during an injury that suddenly stretches the muscle. The seriousness of a strain varies. Some strains heal within days, others cause problems for months. X-rays cannot show a muscle strain. X-rays are taken only if symptoms suggest that a fracture could be present. The usual treatment of a muscle strain is rest and ice packs. Sometimes, a sling, splint, or crutches may be necessary to rest the muscle. The muscle can be used again once pain subsides. Severe strains require a special exercise and stretching program to prevent permanent stiffness and disability. Your doctor will advise you if this will be necessary. Call the doctor immediately if pain or swelling becomes severe, or if numbness or discoloration develop. Your lab work does not show any abnormalities that would explain your discomfort. Your physical exam suggest that the pain is coming from the muscles in your right low back, flank, and side. You should continue your regular medications. Try to avoid activities that cause your low back and side to hurt. Follow-up with your primary care provider if not improving over the next several days. RETURN TO THE EMERGENCY ROOM IF ANY NEW OR WORSENING SYMPTOMS. Referrals: KIMBERLEY LEDESMA MD [Primary Care Provider] - Follow up as needed Scribe Attestation: 04/20/19 11:51 I personally performed the services described in the documentation, reviewed and edited the documentation which was dictated to the scribe in my presence, and it accurately records my words and actions. I personally performed the services described in the documentation, reviewed and edited the documentation which was dictated to the scribe in my presence, and it accurately records my words and actions.
== END 2019-04-20 12:21 | disposition home or self-care (01) ==
LOC: ER 10:28
DX: M79.18 Myalgia, other site (principal); M54.9 Dorsalgia, unspecified; G89.29 Other chronic pain; I10 Essential (primary) hypertension; J45.909 Unspecified asthma, uncomplicated; E11.9 Type 2 diabetes mellitus without complications; K21.9 Gastro-esophageal reflux disease without esophagitis; F41.9 Anxiety disorder, unspecified; Z79.899 Other long term (current) drug therapy; Z79.891 Long term (current) use of opiate analgesic; Z88.0 Allergy status to penicillin; Z88.8 Allergy status to other drugs, medicaments and biological substances; Z79.84 Long term (current) use of oral hypoglycemic drugs
CPT/HCPCS: 99284; 36415; 83690; 85025; 81025; 80053; 81001; S0119

== ENCOUNTER 2019-05-10 11:21 | Emergency (ER) | payer OTHER ==
[2019-05-10 11:29] VITALS: BP 127/82
--- NOTE | 2019-05-10 11:58 | ER Document Report ---
ED Medical Screen (RME) - General Stated Complaint: FEET SWOLLEN/LEFT SIDE TOOTHACHE Time Seen by Provider: 05/10/19 11:55 Primary Care Provider: KIMBERLEY SMITH MD [Primary Care Provider] - Follow up as needed Information source: Patient TRAVEL OUTSIDE OF THE [place] IN LAST 30 DAYS: No - HPI Onset: Other - This is a 34-year-old female presented to the emergency room today stating she is having progressive shortness of breath and dyspnea over the course of the last 2 to 3 weeks she states that she was here on 20 April when she had swelling in 1 lower extremity now she has it into and she is noticing that she gets much more short of breath ambulating even to the restroom. - Related Data Allergies/Adverse Reactions: amoxicillin [Amoxicillin] Allergy (Verified 04/20/19 10:40) benzonatate [From Tessalon Perles] Allergy (Verified 04/20/19 10:40) iloperidone [From Fanapt] Allergy (Verified 04/20/19 10:40) Penicillins Allergy (Verified 04/20/19 10:40) Past Medical History - Social History Family history: None - Past Medical History Cardiac Medical History: Reports: Hx Hypertension Pulmonary Medical History: Reports: Hx Asthma, Hx Bronchitis, Hx Pneumonia, Hx Sleep Apnea Endocrine Medical History: Reports: Hx Diabetes Mellitus Type 2 Renal/ Medical History: Reports: Hx Ovarian Cysts GI Medical History: Reports: Hx Gastroesophageal Reflux Disease, Hx Ulcer Psychiatric Medical History: Reports: Hx Anxiety, Hx Attention Deficit Hyperactivity Disorder, Hx Bipolar Disorder, Hx Depression Past Surgical History: Reports: Hx Adenoidectomy, Hx Gynecologic Surgery - R ovarian cyst 2010 Uterine fibroid removal 2009 in [place]., Hx Tonsillectomy - Immunizations Hx Diphtheria, Pertussis, Tetanus Vaccination: Yes - 06/2011 Physical Exam - Vital signs Vitals: Temp Pulse Resp BP Pulse Ox 98.4 F 112 H 30 H 127/82 H 95 05/10/19 11:22 05/10/19 11:22 05/10/19 11:22 05/10/19 11:22 05/10/19 11:22 - Respiratory Respiratory status: No respiratory distress Chest status: Nontender Breath sounds: Normal Chest palpation: Normal Course - Vital Signs Vital signs: Temp Pulse Resp BP Pulse Ox 98.4 F 112 H 30 H 127/82 H 95 05/10/19 11:22 05/10/19 11:22 05/10/19 11:22 05/10/19 11:22 05/10/19 11:22 Doctor's Discharge - Discharge Referrals: KIMBERLEY SMITH MD [Primary Care Provider] - Follow up as needed
--- NOTE | 2019-05-10 12:19 | RADIOLOGY REPORT (SQ) ---
EXAM DESCRIPTION: CHEST 2 VIEWS COMPLETED DATE/TIME: 05/10/2019 12:10 pm REASON FOR STUDY: Short of breath COMPARISON: 04/01/2019 EXAM PARAMETERS: NUMBER OF VIEWS: two views TECHNIQUE: Digital Frontal and Lateral radiographic views of the chest acquired. RADIATION DOSE: NA LIMITATIONS: none FINDINGS: LUNGS AND PLEURA: No opacities, masses or pneumothorax. No pleural effusion. MEDIASTINUM AND HILAR STRUCTURES: No masses or contour abnormalities. HEART AND VASCULAR STRUCTURES: Heart normal size. No evidence for failure. BONES: No acute findings. HARDWARE: None in the chest. OTHER: No other significant finding. IMPRESSION: NO ACUTE RADIOGRAPHIC FINDING IN THE CHEST. TECHNICAL DOCUMENTATION: JOB ID: [id number] 2010 [employer]- All Rights Reserved Reading location - IP/workstation name: [email or web address]
[2019-05-10] MEDS ORDERED: IPRATROPIUM/ALBUTEROL 0.5-2.5 MG/3 ML AMPUL NEB ONE (12:36)
[2019-05-10] MEDS ORDERED: FUROSEMIDE 20 MG TABLET PO ONE (12:37)
--- NOTE | 2019-05-10 12:38 | ER Document Report ---
ED General - General Chief Complaint: Feet Swelling Stated Complaint: FEET SWOLLEN/LEFT SIDE TOOTHACHE Time Seen by Provider: 05/10/19 11:55 Primary Care Provider: KIMBERLEY SMITH MD [Primary Care Provider] - Follow up as needed Mode of Arrival: Ambulatory Information source: Patient, [facility], [facility] Records Notes: 34-year-old female with hypertension, diabetes presents with complaint of bilateral foot swelling and shortness of breath. Patient states that she noticed her foot swollen approximately 1 week ago. Patient reports shortness of breath but also states that she has asthma and is affected by the weather. Denies history of PE, DVT. Has no calf pain, chest pain, abdominal pain. TRAVEL OUTSIDE OF THE [place] IN LAST 30 DAYS: No - HPI Onset: Other Onset/Duration: Gradual Quality of pain: No pain Severity: None Pain Level: Denies Associated symptoms: Allergy/hay fever, Leg swelling, Shortness of breath. denies: Nonproductive cough, Productive cough, Fever, Headache, Hurts to breath, Nausea, Vomiting Exacerbated by: Movement, Coughing Relieved by: Denies Similar symptoms previously: Yes Recently seen / treated by doctor: Yes - Related Data Allergies/Adverse Reactions: amoxicillin [Amoxicillin] Allergy (Verified 04/20/19 10:40) benzonatate [From Tessalon Perles] Allergy (Verified 04/20/19 10:40) iloperidone [From Fanapt] Allergy (Verified 04/20/19 10:40) Penicillins Allergy (Verified 04/20/19 10:40) Past Medical History - General Information source: Patient - Social History Smoking Status: Never Smoker Frequency of alcohol use: None Drug Abuse: None Family History: Reviewed & Not Pertinent, DM, Hypertension, Other - Brother with blood clots, mother with hysterectomy Patient has suicidal ideation: No Patient has homicidal ideation: No - Past Medical History Cardiac Medical History: Reports: Hx Hypertension Pulmonary Medical History: Reports: Hx Asthma, Hx Bronchitis, Hx Pneumonia, Hx Sleep Apnea Endocrine Medical History: Reports: Hx Diabetes Mellitus Type 2 Renal/ Medical History: Reports: Hx Ovarian Cysts GI Medical History: Reports: Hx Gastroesophageal Reflux Disease, Hx Ulcer Psychiatric Medical History: Reports: Hx Anxiety, Hx Attention Deficit Hyperactivity Disorder, Hx Bipolar Disorder, Hx Depression Past Surgical History: Reports: Hx Adenoidectomy, Hx Gynecologic Surgery - R ovarian cyst 2010 Uterine fibroid removal 2010 in [place]., Hx Tonsillectomy - Immunizations Hx Diphtheria, Pertussis, Tetanus Vaccination: Yes - 06/2011 Review of Systems - Review of Systems Notes: REVIEW OF SYSTEMS: CONSTITUTIONAL : Denies fever, chills, or sweats. Denies recent illness. Denies weight loss, recent hospitalizations. EENT: Denies visual changes, eye pain. Denies sore throat, oral lesions, difficulty swallowing. CARDIOVASCULAR: Denies chest pain. Denies palpitations. Denies lower extremity edema. RESPIRATORY: Denies cough. + shortness of breath, wheezing. GASTROINTESTINAL: Denies abdominal pain or distention. Denies nausea, vomiting, or diarrhea. Denies blood in vomitus, stools, or per rectum. Denies black, tarry stools. Denies constipation. GENITOURINARY: Denies difficulty urinating, painful urination, frequency, blood in urine, or vaginal discharge. MUSCULOSKELETAL: Denies back or neck pain or stiffness. Denies joint pain + bilat feet swelling. SKIN: Denies rash, lesions or sores. HEMATOLOGIC : Denies easy bruising or bleeding. LYMPHATIC: Denies swollen glands. NEUROLOGICAL: Denies confusion or altered mental status. Denies loss of consciousness. Denies dizziness or lightheadedness. Denies headache. Denies weakness or paralysis. Denies problems difficulty with ambulation, slurred speech. Denies sensory loss, numbness, or tingling. Denies seizures. PSYCHIATRIC: Denies anxiety or stress. Denies depression, suicidal ideation, or homicidal ideation. Denies visual or auditory hallucinations. Physical Exam - Vital signs Vitals: Temp Pulse Resp BP Pulse Ox 98.4 F 112 H 30 H 127/82 H 95 05/10/19 11:22 05/10/19 11:22 05/10/19 11:22 05/10/19 11:22 05/10/19 11:22 - Notes Notes: PHYSICAL EXAMINATION: GENERAL: Morbidly obese, no acute distress HEAD: Atraumatic, normocephalic. EYES: Pupils equal round and reactive to light, extraocular movements intact, conjunctiva are normal. ENT: Nares patent, oropharynx clear without exudates. Moist mucous membranes. NECK: Normal range of motion, supple without lymphadenopathy LUNGS: Breath sounds clear to auscultation bilaterally and equal. No wheezes rales or rhonchi. HEART: Regular rate and rhythm without murmurs ABDOMEN: Soft, nontender, nondistended abdomen. No guarding, no rebound. No masses appreciated. Female : deferred Musculoskeletal: Normal range of motion, bilateral nonpitting swelling of the feet. No erythema, warmth, no calf pain. No cyanosis. NEUROLOGICAL: Cranial nerves grossly intact. Normal speech, normal gait. Normal sensory, motor exams PSYCH: Normal mood, normal affect. SKIN: Warm, Dry, normal turgor, no rashes or lesions noted. Course - Re-evaluation Re-evalutation: 05/10/19 13:42 Laboratory 05/10/19 05/10/19 05/10/19 12:20 12:20 12:20 WBC 8.9 RBC 3.86 Hgb 11.3 L Hct 34.1 L MCV 88 MCH 29.3 MCHC 33.1 RDW 15.7 H Plt Count 345 Lymph % (Auto) 26.4 Harrison % (Auto) 4.2 Eos % (Auto) 0.8 Baso % (Auto) 0.2 Absolute Neuts (auto) 6.1 Absolute Lymphs (auto) 2.3 Absolute Monos (auto) 0.4 Absolute Eos (auto) 0.1 Absolute Basos (auto) 0.0 Seg Neutrophils % 68.4 D-Dimer 0.28 Sodium Potassium Chloride Carbon Dioxide Anion Gap BUN Creatinine Est GFR ( Amer) Est GFR (MDRD) Non-Af Glucose Calcium Total Bilirubin Direct Bilirubin Neonat Total Bilirubin Neonat Direct Bilirubin Neonat Indirect Bili AST ALT Alkaline Phosphatase Troponin I NT-Pro-B Natriuret Pep 91 Total Protein Albumin 05/10/19 05/10/19 12:20 12:20 WBC RBC Hgb Hct MCV MCH MCHC RDW Plt Count Lymph % (Auto) Harrison % (Auto) Eos % (Auto) Baso % (Auto) Absolute Neuts (auto) Absolute Lymphs (auto) Absolute Monos (auto) Absolute Eos (auto) Absolute Basos (auto) Seg Neutrophils % D-Dimer Sodium 138.2 Potassium 4.4 Chloride 100 Carbon Dioxide 31 H Anion Gap 7 BUN 10 Creatinine 0.71 Est GFR ( Amer) > 60 Est GFR (MDRD) Non-Af > 60 Glucose 123 H Calcium 8.8 Total Bilirubin 0.3 Direct Bilirubin 0.1 Neonat Total Bilirubin Not Reportable Neonat Direct Bilirubin Not Reportable Neonat Indirect Bili Not Reportable AST 36 ALT 32 Alkaline Phosphatase 166 H Troponin I < 0.012 NT-Pro-B Natriuret Pep Total Protein 7.6 Albumin 3.9 Chest X-Ray 05/10/19 11:55 IMPRESSION: NO ACUTE RADIOGRAPHIC FINDING IN THE CHEST. Temp Pulse Resp BP Pulse Ox 98.4 F 112 H 30 H 127/82 H 95 05/10/19 11:22 05/10/19 11:22 05/10/19 11:22 05/10/19 11:22 05/10/19 11:22 05/10/19 19:29 34-year-old female presents with complaint of bilateral feet swelling. Patient is morbidly obese. Vital signs reviewed and patient is mildly tachycardic but this resolved prior to arrival. Exam is significant for mild swelling of the feet bilaterally this does not involve the lower leg or calf. Patient has no evidence of cellulitis, pitting edema. Chest x-ray does not show any vascular congestion or signs of congestive heart failure. CBC is without leukocytosis or anemia. CMP shows no significant electrolyte abnormality. Patient was advised to obtain compression stockings and follow-up with her primary care physician. Patient was evaluated and treated as appropriate for the patient's presenting symptoms and complaint, with consideration of any critical or life threatening conditions that may be associated with their obtained history and exam as noted above. All results were discussed with patient and... Patient provided the opportunity to ask questions, and express concerns. Patient was educated on treatments based on their presumed diagnosis as noted above. At this time we will discharge the patient with return precautions and follow-up recommendations. Verbal discharge instructions given a the bedside. Medication warnings reviewed. Patient is in agreement with this plan and has verbalized understanding of return precautions. After careful consideration I feel that that patient can be safely discharged from the emergency department, they were advised to followup with a primary care physician in 2-3 days. Dictation on this chart was performed using voice recognition software and may result in unintended grammatical, spelling, syntax or errors. - Vital Signs Vital signs: Temp Pulse Resp BP Pulse Ox 98.3 F 107 H 30 H 127/82 H 96 05/10/19 14:02 05/10/19 14:02 05/10/19 11:22 05/10/19 11:22 03/13/20 14:02 - Laboratory Result Diagrams: 05/10/19 12:20 05/10/19 12:20 Laboratory results interpreted by me: 05/10/19 05/10/19 12:20 12:20 Hgb 11.3 L Hct 34.1 L RDW 15.7 H Carbon Dioxide 31 H Glucose 123 H Alkaline Phosphatase 166 H - Diagnostic Test Radiology reviewed: Image reviewed, Reports reviewed - EKG Interpretation by Me EKG shows normal: Sinus rhythm Rate: Normal Rhythm: NSR When compared to previous EKG there are: No significant change Discharge - Discharge Clinical Impression: Peripheral edema Dyspnea Qualifiers: Dyspnea type: unspecified Qualified Code(s): R06.00 - Dyspnea, unspecified Condition: Good Disposition: HOME, SELF-CARE Instructions: Dependent Edema ([facility]), Edema, Peripheral ([facility]) Additional Instructions: Your chest x-ray and labs that were performed today do not show any evidence of heart failure, problems with your kidneys. There is no evidence of clot. Pl ease obtain compression stockings. Please follow-up with your primary care physician. Follow up with your [id number] hours for further care or return to the ED IMMEDIATELY if symptoms worsen or you have any concerns. If you cannot afford to follow up with your primary care physician a list of low cost clinics have been provided at the end of your discharge papers as well. Most prescribed medications have multiple side effects. The safest thing to do is when filling your prescription speak to your pharmacist regarding possible interactions with your normal home medications and over the counter medications such as Ibuprofen, Tylenol, Benadryl. If you experience any symptoms that cause you discomfort or concern you should discontinue the medication immediately and return to the emergency room or call your primary care physician. Prescriptions: Furosemide [Lasix 20 mg Tablet] 20 mg PO QAM #5 tablet Forms: Elevated Blood Pressure Referrals: KIMBERLEY SMITH MD [Primary Care Provider] - Follow up as needed
[2019-05-10 13:05] LABS: ABSOLUTE EOSINOPHILS # (AUTO) 0.1 10^3/uL (0.0-0.6); ABSOLUTE LYMPHOCYTES (AUTO) 2.3 10^3/uL (0.5-4.7); ABSOLUTE MONOCYTES (AUTO) 0.4 10^3/uL (0.1-1.4); ABSOLUTE NEUT (AUTO) 6.1 10^3/uL (1.7-8.2); BASOPHILS % (AUTO) 0.2 % (0-2); EOSINOPHILS % (AUTO) 0.8 % (0-6); HEMATOCRIT 34.1 % (36.0-47.0); HEMOGLOBIN 11.3 g/dL (12.0-15.5); LYMPHOCYTES % (AUTO) 26.4 % (13-45); MEAN CORPUSCULAR HEMOGLOBIN 29.3 pg (27.0-33.4); MEAN CORPUSCULAR HGB CONC 33.1 g/dL (32.0-36.0); MEAN CORPUSCULAR VOLUME 88 fl (80-97); MONOCYTES % (AUTO) 4.2 % (3-13); PLATELET COUNT 345 10^3/uL (150-450); RED BLOOD COUNT 3.86 10^6/uL (3.72-5.28); RED CELL DISTRIBUTION WIDTH 15.7 % (11.5-14.0); SEGMENTED NEUTROPHILS % (AUTO) 68.4 % (42-78); TOTAL CELLS COUNTED % (AUTO) 100 %; WHITE BLOOD COUNT 8.9 10^3/uL (4.0-10.5)
[2019-05-10 13:12] LABS: ALBUMIN 3.9 g/dL (3.5-5.0); ALKALINE PHOSPHATASE 166 U/L (38-126); ANION GAP 7 (5-19); ASPARTATE AMINO TRANSFERASE 36 U/L (14-36); BILIRUBIN,DIRECT 0.1 mg/dL (0.0-0.4); BILIRUBIN,TOTAL 0.3 mg/dL (0.2-1.3); BLOOD UREA NITROGEN 10 mg/dL (7-20); CALCIUM 8.8 mg/dL (8.4-10.2); CARBON DIOXIDE 31 mmol/L (22-30); CHLORIDE 100 mmol/L (98-107); GLUCOSE 123 mg/dL (75-110); POTASSIUM 4.4 mmol/L (3.6-5.0); TOTAL PROTEIN 7.6 g/dL (6.3-8.2)
--- NOTE | 2019-05-10 18:20 | EKG REPORT ---
SEVERITY:- NORMAL ECG - SINUS RHYTHM : Confirmed by: Luzmaria Lindsey 10-May-2019 18:19:57
== END 2019-05-10 14:04 | disposition home or self-care (01) ==
LOC: ER 11:21
DX: R60.0 Localized edema (principal); R06.00 Dyspnea, unspecified; R06.02 Shortness of breath; K08.89 Other specified disorders of teeth and supporting structures; J45.909 Unspecified asthma, uncomplicated; Z88.1 Allergy status to other antibiotic agents; Z88.8 Allergy status to other drugs, medicaments and biological substances; I10 Essential (primary) hypertension; E11.9 Type 2 diabetes mellitus without complications
CPT/HCPCS: 93005; 94640; 99284; 36415; 85025; 80053; 84484; 85379; 83880; 71046; 93010; J7620

== ENCOUNTER 2019-06-15 09:53 | Emergency (ER) | payer SELFPAY ==
[2019-06-15] MEDS ORDERED: ASPIRIN 81 MG TABLET, CHEWABLE PO ONE (10:21)
--- NOTE | 2019-06-15 10:28 | ER Document Report ---
ED Medical Screen (RME) - General Chief Complaint: Chest Pain Stated Complaint: CHEST PAIN Time Seen by Provider: 06/15/19 10:21 Primary Care Provider: KIMBERLEY SMITH MD [Primary Care Provider] - Follow up as needed Mode of Arrival: Ambulatory Information source: Patient Notes: [age]-year-old female presented to ED for complaint of chest pain that is stabbing in her left breast she states sometimes when she picks her left breast up the pain gets better. She does have feet swelling for a month with shortness of breath. She states she did come to the emergency room for this in the past and they told her to use some compression hose. She states she also has a history of asthma and she went to a primary care recently and they gave her some Advair and she thinks she is allergic to Advair she took 1 dose and the chest pain became a lot worse. She states she has been taking Mylanta and Zofran with no help. States she does have a history of elevated blood pressure at times and of palpitations. Mother had [place] at 61. She states she has been morbidly obese since she was 22 years old. At this time she does have a BMI 67, 5 foot 2 inches with 166.47 kg. I have greeted and performed a rapid initial assessment of this patient. A comprehensive ED assessment and evaluation of the patient, analysis of test results and completion of medical decision making process will be conducted by an additional ED providers. TRAVEL OUTSIDE OF THE [place] IN LAST 30 DAYS: No - Related Data Allergies/Adverse Reactions: amoxicillin [Amoxicillin] Allergy (Verified 04/20/19 10:40) benzonatate [From Tessalon Perles] Allergy (Verified 04/20/19 10:40) iloperidone [From Fanapt] Allergy (Verified 04/20/19 10:40) Penicillins Allergy (Verified 04/20/19 10:40) Past Medical History - Social History Family history: None - Past Medical History Cardiac Medical History: Reports: Hx Hypertension Pulmonary Medical History: Reports: Hx Asthma, Hx Bronchitis, Hx Pneumonia, Hx Sleep Apnea Endocrine Medical History: Reports: Hx Diabetes Mellitus Type 2 Renal/ Medical History: Reports: Hx Ovarian Cysts GI Medical History: Reports: Hx Gastroesophageal Reflux Disease, Hx Ulcer Psychiatric Medical History: Reports: Hx Anxiety, Hx Attention Deficit Hyperactivity Disorder, Hx Bipolar Disorder, Hx Depression Past Surgical History: Reports: Hx Adenoidectomy, Hx Gynecologic Surgery - R ovarian cyst 2010 Uterine fibroid removal 2010 in [place]., Hx Tonsillectomy - Immunizations Hx Diphtheria, Pertussis, Tetanus Vaccination: Yes - 06/2011 Physical Exam - Vital signs Vitals: Temp Pulse Resp BP Pulse Ox 98 F 88 22 H 147/82 H 98 06/15/19 10:09 06/15/19 10:09 06/15/19 10:06/15/19 10:06/15/19 10:09 Course - Vital Signs Vital signs: Temp Pulse Resp BP Pulse Ox 98 F 88 22 H 147/82 H 98 06/15/19 10:09 06/15/19 10:09 06/15/19 10:09 06/15/19 10:06/15/19 10:09 Doctor's Discharge - Discharge Referrals: KIMBERLEY SMITH MD [Primary Care Provider] - Follow up as needed
[2019-06-15 10:57] LABS: ABSOLUTE BASOPHILS # (AUTO) 0.1 10^3/uL (0.0-0.2); ABSOLUTE EOSINOPHILS # (AUTO) 0.1 10^3/uL (0.0-0.6); ABSOLUTE LYMPHOCYTES (AUTO) 1.8 10^3/uL (0.5-4.7); ABSOLUTE MONOCYTES (AUTO) 0.4 10^3/uL (0.1-1.4); ABSOLUTE NEUT (AUTO) 6.6 10^3/uL (1.7-8.2); BASOPHILS % (AUTO) 1.1 % (0-2); EOSINOPHILS % (AUTO) 1.4 % (0-6); HEMOGLOBIN 10.7 g/dL (12.0-15.5); MEAN CORPUSCULAR HEMOGLOBIN 29.3 pg (27.0-33.4); MEAN CORPUSCULAR HGB CONC 33.3 g/dL (32.0-36.0); MEAN CORPUSCULAR VOLUME 88 fl (80-97); MONOCYTES % (AUTO) 4.3 % (3-13); PLATELET COUNT 345 10^3/uL (150-450); RED BLOOD COUNT 3.63 10^6/uL (3.72-5.28); RED CELL DISTRIBUTION WIDTH 15.3 % (11.5-14.0); SEGMENTED NEUTROPHILS % (AUTO) 73.2 % (42-78); TOTAL CELLS COUNTED % (AUTO) 100 %; WHITE BLOOD COUNT 9.1 10^3/uL (4.0-10.5)
[2019-06-15 11:17] LABS: ALKALINE PHOSPHATASE 126 U/L (38-126); ANION GAP 6 (5-19); ASPARTATE AMINO TRANSFERASE 35 U/L (14-36); BILIRUBIN,TOTAL 0.4 mg/dL (0.2-1.3); BLOOD UREA NITROGEN 8 mg/dL (7-20); CALCIUM 9.1 mg/dL (8.4-10.2); CARBON DIOXIDE 31 mmol/L (22-30); CHLORIDE 101 mmol/L (98-107); GLUCOSE 130 mg/dL (75-110); POTASSIUM 4.3 mmol/L (3.6-5.0); TOTAL PROTEIN 7.8 g/dL (6.3-8.2)
--- NOTE | 2019-06-15 11:52 | RADIOLOGY REPORT (SQ) ---
EXAM DESCRIPTION: CHEST 2 VIEWS IMAGES COMPLETED DATE/TIME: 06/15/2019 11:32 am REASON FOR STUDY: chest pain COMPARISON: 05/10/2019 TECHNIQUE: Frontal and lateral radiographic views of the chest acquired. NUMBER OF VIEWS: Two view. LIMITATIONS: None. FINDINGS: LUNGS AND PLEURA: No opacities, masses or pneumothorax. No pleural effusion. MEDIASTINUM AND HILAR STRUCTURES: No masses or contour abnormalities. HEART AND VASCULAR STRUCTURES: Heart normal size. No evidence for failure. BONES: No acute findings. HARDWARE: None in the chest. OTHER: No other significant finding. IMPRESSION: NO SIGNIFICANT RADIOGRAPHIC FINDING IN THE CHEST. TECHNICAL DOCUMENTATION: JOB ID: [id number] 2010 [employer]- All Rights Reserved Reading location - IP/workstation name: [email or web address]
--- NOTE | 2019-06-15 11:56 | ER Document Report ---
ED General - General Chief Complaint: Chest Pain Stated Complaint: CHEST PAIN Time Seen by Provider: 06/15/19 10:21 Primary Care Provider: KIMBERLEY SMITH MD [Primary Care Provider] - Follow up as needed Mode of Arrival: Ambulatory Information source: Patient TRAVEL OUTSIDE OF THE [place] IN LAST 30 DAYS: No - HPI Onset: Other - since of last week Onset/Duration: Gradual Quality of pain: Sharp Severity: Moderate Pain Level: 3 Associated symptoms: Hurts to breath, Shortness of breath Exacerbated by: Other - patient thinks Advair caused her symptoms Similar symptoms previously: Yes Recently seen / treated by doctor: Yes - patient seen in this ER last month and month before Notes: 34 year old female with a history of Morbid Obesity, Asthma, FROYLAN, Anxiety, Depression here in the ER for chest pain, pleuritic chest pain, and shortness of breath which all started last . The patient says she did a facetime with her Doctor and was called in Advair. The patient says her symptoms started after using Advair. The patient remembers using Advair once in the past and feeling the same as she does now. The patient denies hives, rash, itching, throat swelling, nausea, vomiting, fevers, chills, sweats. The patient says she has chest pains which come and go and they are made worse with taking deep breaths. The patient has been seen here for similar chest pains and shortness of breath looking back through the EMR. - Related Data Allergies/Adverse Reactions: amoxicillin [Amoxicillin] Allergy (Verified 04/20/19 10:40) benzonatate [From Tessalon Perles] Allergy (Verified 04/20/19 10:40) iloperidone [From Fanapt] Allergy (Verified 04/20/19 10:40) Penicillins Allergy (Verified 04/20/19 10:40) Past Medical History - General Information source: Patient - Social History Smoking Status: Never Smoker Frequency of alcohol use: None Drug Abuse: None Family History: Reviewed & Not Pertinent, DM, Hypertension, Other - Brother with blood clots, mother with hysterectomy Patient has suicidal ideation: No Patient has homicidal ideation: No - Past Medical History Cardiac Medical History: Reports: Hx Hypertension Pulmonary Medical History: Reports: Hx Asthma, Hx Bronchitis, Hx Pneumonia, Hx Sleep Apnea Endocrine Medical History: Reports: Hx Diabetes Mellitus Type 2 Renal/ Medical History: Reports: Hx Ovarian Cysts GI Medical History: Reports: Hx Gastroesophageal Reflux Disease, Hx Ulcer Psychiatric Medical History: Reports: Hx Anxiety, Hx Attention Deficit Hyperactivity Disorder, Hx Bipolar Disorder, Hx Depression Past Surgical History: Reports: Hx Adenoidectomy, Hx Gynecologic Surgery - R ovarian cyst 2010 Uterine fibroid removal 2010 in [place]., Hx Tonsillectomy - Immunizations Hx Diphtheria, Pertussis, Tetanus Vaccination: Yes - 06/2011 Review of Systems - Review of Systems Constitutional: No symptoms reported. denies: Chills, Diaphoresis, Fever EENT: No symptoms reported Cardiovascular: Chest pain Respiratory: Short of breath Gastrointestinal: No symptoms reported Genitourinary: No symptoms reported Female Genitourinary: No symptoms reported Musculoskeletal: No symptoms reported Skin: No symptoms reported Hematologic/Lymphatic: No symptoms reported Neurological/Psychological: No symptoms reported -: Yes All other systems reviewed and negative Physical Exam - Vital signs Vitals: Temp Pulse Resp BP Pulse Ox 98 F 88 22 H 147/82 H 98 06/15/19 10:09 06/15/19 10:09 06/15/19 10:06/15/19 10:06/15/19 10:09 - Notes Notes: GENERAL: Obese, well-appearing, well-nourished and in no acute distress. HEAD: Atraumatic, normocephalic. EYES: Pupils equal round and reactive to light, extraocular movements intact, sclera anicteric, conjunctiva are normal. ENT: External ears normal in appearance, nares patent, oropharynx clear without exudates. Moist mucous membranes. NECK: Normal range of motion, supple without lymphadenopathy or JVD. LUNGS: Breath sounds clear to auscultation bilaterally and equal. No wheezes rales or rhonchi. HEART: Regular rate and rhythm without murmurs, rubs or gallops. ABDOMEN: Soft, nontender, normoactive bowel sounds. No guarding, no rebound. No masses appreciated. EXTREMITIES: Normal range of motion, no pitting or edema. No clubbing or cyanosis. NEUROLOGICAL: No focal deficits. Normal speech, normal gait. PSYCH: Normal mood, normal affect. SKIN: Warm, Dry, normal turgor, no rashes or lesions noted. Course - Re-evaluation Re-evalutation: 06/15/19 12:47 The patient is here for chest pain and shortness of breath. When speaking with her she will desat a times and the patient tells me she has been much more short of breath recently with ambulation. The patient is obese and she zavala asthma but she has no wheezing today. D-Dimer was unfortunately not in the negative range so will obtain CTA chest to rule out PE. Assuming CTA chest is negative, patient will be able to follow up with her PCP for her chest pain since she is low risk for ACS. - Vital Signs Vital signs: Temp Pulse Resp BP Pulse Ox 98 F 88 18 156/91 H 94 06/15/19 10:09 06/15/19 10:09 06/15/19 11:01 06/15/19 11:01 06/15/19 11:01 - Laboratory Result Diagrams: 06/15/19 10:45 06/15/19 10:45 Laboratory results interpreted by me: 06/15/19 06/15/19 06/15/19 10:45 10:45 10:45 RBC 3.63 L Hgb 10.7 L Hct 32.0 L RDW 15.3 H D-Dimer 0.54 H Carbon Dioxide 31 H Glucose 130 H - Diagnostic Test Radiology reviewed: Image reviewed, Reports reviewed - EKG Interpretation by Me EKG shows normal: Sinus rhythm, [place], Intervals, QRS Complexes, ST-T Waves Rate: Tachycardia Rhythm: NSR Discharge - Discharge Clinical Impression: Chest pain Qualifiers: Chest pain type: unspecified Qualified Code(s): R07.9 - Chest pain, unspecified Condition: Stable Disposition: HOME, SELF-CARE Instructions: Chest Pain of Unclear Cause ([facility]), Chest Wall Pain ([facility]) Additional Instructions: Follow up with your primary care doctor. Use Tylenol and Motrin for chest pain. Use albuterol as needed for wheezing/shortness of breath. Referrals: KIMBERLYE SMITH MD [Primary Care Provider] - Follow up as needed
--- NOTE | 2019-06-15 12:22 | EKG REPORT ---
SEVERITY:- OTHERWISE NORMAL ECG - SINUS TACHYCARDIA : Confirmed by: Luis Eduardo Medrano MD 15-Jun-2019 12:21:32
[2019-06-15] MEDS ORDERED: DIAZEPAM INJ 10 MG/2 ML DISP.SYRIN IV ONE ×2 (15:01→16:30)
--- NOTE | 2019-06-15 17:30 | RADIOLOGY REPORT (SQ) ---
EXAM DESCRIPTION: CTA CHEST IMAGES COMPLETED DATE/TIME: 06/15/2019 4:03 pm REASON FOR STUDY: rule out PE COMPARISON: 05/19/2018 TECHNIQUE: CT scan of the chest performed using helical scanning technique with dynamic intravenous contrast injection. Images reviewed with lung, soft tissue and bone windows. Reconstructed coronal and sagittal MPR images reviewed. Additional 3 dimensional post-processing performed to develop Maximal Intensity Projection images (MS P). All images stored on PACS. All CT scanners at this facility use dose modulation, iterative reconstruction, and/or weight based d osing when appropriate to reduce radiation dose to as low as reasonably achievable (ALARA). [facility]: Dose Right [facility]: CareDose [facility]: Dose Right [facility]: Teradose 4D [facility]: Unifyo CONTRAST TYPE AND DOSE: contrast/concentration: Isovue 350.00 mg/ml; Total Contrast Delivered: 90.0 ml; Total Saline Delivered: 80.0 ml Contrast bolus optimized for the pulmonary arteries. Not diagnostic for the aorta. RENAL FUNCTION: GFR > 60. RADIATION DOSE: CT Rad equipment meets quality standard of care and radiation dose reduction techniq ues were employed. CTDIvol: 6.6 - 41.8 mGy. DLP: 1468 mGy-cm. . LIMITATIONS: None. FINDINGS: LUNGS AND PLEURA: Respiratory motion obscures some detail. No masses, infiltrates, or pne umothorax. No pleural effusions or pleural calcifications. AORTA AND GREAT VESSELS: No aneurysm. Contrast bolus not optimized for the aorta. HEART: There is moderate cardiomegaly. No pericardial effusion. No significant coronary artery calci fications. PULMONARY ARTERIES: No emboli visualized in the main pulmonary arteries or the segmental branches. HILAR AND MEDIASTINAL STRUCTURES: Mildly prominent mediastinal lymph nodes are not enlarged by CT cri teria. Bilateral supraclavicular lymph nodes are also prominent, the largest measuring 1.5 x 1.1 cm. HARDWARE: None in the chest. UPPER ABDOMEN: There is moderate hepatic steatosis. Spleen has normal size. THYROID AND OTHER SOFT TISSUES: No masses. No adenopathy. BONES: No acute or significant finding. 3D MIPS: Confirm above findings. OTHER: No other significant finding. IMPRESSION: 1. No pulmonary embolism. No acute pulmonary disease. 2. Mildly prominent mediastinal and supraclavicular lymph nodes, nonspecific. Findings may be reacti ve, infectious or inflammatory, lymphoma is thought less likely. 3. Moderate hepatic steatosis. COMMENT: Quality ID # [id number]: Final reports with documentation of one or more dose reduction techniques (e.g., Automated exposure control, adjustment of the mA and/or kV according to patient size, use of iterative reconstruction technique) TECHNICAL DOCUMENTATION: JOB ID: [id number] 2010 [employer]- All Rights Reserved Reading location - IP/workstation name: [email or web address]
[2019-06-15 18:05] VITALS: BP 134/86
== END 2019-06-15 18:05 | disposition home or self-care (01) ==
LOC: ER 09:53
DX: R07.9 Chest pain, unspecified (principal); I10 Essential (primary) hypertension; J45.909 Unspecified asthma, uncomplicated; E11.9 Type 2 diabetes mellitus without complications; Z88.0 Allergy status to penicillin
CPT/HCPCS: 93005; 96376; 99285; 96374; 36415; 84703; 85025; 80053; 84484; 85379; 83880; 71046; 71275; 93010; J3360

== ENCOUNTER 2019-06-24 10:14 | Emergency (ER) | payer SELFPAY ==
[2019-06-24 11:25] LABS: ABSOLUTE BASOPHILS # (AUTO) 0.1 10^3/uL (0.0-0.2); ABSOLUTE EOSINOPHILS # (AUTO) 0.1 10^3/uL (0.0-0.6); ABSOLUTE MONOCYTES (AUTO) 0.7 10^3/uL (0.1-1.4); ABSOLUTE NEUT (AUTO) 9.2 10^3/uL (1.7-8.2); BASOPHILS % (AUTO) 0.5 % (0-2); EOSINOPHILS % (AUTO) 0.5 % (0-6); HEMATOCRIT 31.1 % (36.0-47.0); HEMOGLOBIN 10.2 g/dL (12.0-15.5); LYMPHOCYTES % (AUTO) 16.9 % (13-45); MEAN CORPUSCULAR HEMOGLOBIN 28.9 pg (27.0-33.4); MEAN CORPUSCULAR HGB CONC 32.8 g/dL (32.0-36.0); MEAN CORPUSCULAR VOLUME 88 fl (80-97); MONOCYTES % (AUTO) 5.4 % (3-13); PLATELET COUNT 388 10^3/uL (150-450); RED BLOOD COUNT 3.53 10^6/uL (3.72-5.28); RED CELL DISTRIBUTION WIDTH 15.9 % (11.5-14.0); SEGMENTED NEUTROPHILS % (AUTO) 76.7 % (42-78); TOTAL CELLS COUNTED % (AUTO) 100 %
[2019-06-24 11:31] LABS: ALBUMIN 3.9 g/dL (3.5-5.0); ALKALINE PHOSPHATASE 122 U/L (38-126); ANION GAP 9 (5-19); ASPARTATE AMINO TRANSFERASE 33 U/L (14-36); BILIRUBIN,TOTAL 0.4 mg/dL (0.2-1.3); BLOOD UREA NITROGEN 11 mg/dL (7-20); CALCIUM 9.6 mg/dL (8.4-10.2); CARBON DIOXIDE 28 mmol/L (22-30); CHLORIDE 101 mmol/L (98-107); GLUCOSE 204 mg/dL (75-110); POTASSIUM 4.3 mmol/L (3.6-5.0); TOTAL PROTEIN 7.5 g/dL (6.3-8.2)
[2019-06-24] MEDS ORDERED: IPRATROPIUM/ALBUTEROL 0.5-2.5 MG/3 ML AMPUL NEB ONE (11:35)
[2019-06-24] MEDS ORDERED: METHYLPREDNISOLONE INJ 125 MG/2 ML SDV IV ONE (11:37)
[2019-06-24] MEDS ORDERED: KETOROLAC TROMETHAMINE INJ/PF 30 MG/1 ML SDV IV ONE (11:38)
[2019-06-24] MEDS ORDERED: DIPHENHYDRAMINE HCL 50 MG/ML VIAL IV ONE (11:38)
[2019-06-24] MEDS ORDERED: PROCHLORPERAZINE EDISYLATE INJ 10 MG/2 ML VIAL IV ONE (11:42)
[2019-06-24] MEDS: MAGNESIUM SULFATE/D5W 1 GM/100 ML RTUPB IV SCH ×2 (11:46→12:12)
--- NOTE | 2019-06-24 11:49 | ER Document Report ---
Entered by GUY HALL SCRIBE 06/24/19 1122 Acting as scribe for:VIRA ANNE MD ED Respiratory Problem - General Chief Complaint: Shortness Of Breath Stated Complaint: SHORTNESS OF BREATH Time Seen by Provider: 06/24/19 11:17 Mode of Arrival: Ambulatory Information source: Patient Notes: This 34 year old female patient presents to the emergency department today with complaints of asthma exacerbation. This patient states that she has also had a "wet non-productive cough" for the last few days. Patient states that she has been using her nebulizer 3x a day as well as her inhalers with minimal relief. Patient states she takes pulse ox readings at home, and today she had a pulse ox of 83% prior to arrival. Patient denies fevers. Patient states she is only been using her nebulizer 3 times a day because she is trying to stretch out the medication and make it last. TRAVEL OUTSIDE OF THE [place] IN LAST 30 DAYS: No - Related Data Allergies/Adverse Reactions: amoxicillin [Amoxicillin] Allergy (Verified 04/20/19 10:40) benzonatate [From Tessalon Perles] Allergy (Verified 04/20/19 10:40) fluticasone [From Advair Diskus] Allergy (Verified 06/24/19 10:53) iloperidone [From Fanapt] Allergy (Verified 04/20/19 10:40) Penicillins Allergy (Verified 04/20/19 10:40) salmeterol [From Advair Diskus] Allergy (Verified 06/24/19 10:53) Home Medications: proair,symbicort, albuterol neb, percocet, prazosin, benztropine, vistaril, iron, omeprazole, zoloft, amitriptyline Past Medical History - General Information source: Patient - Social History Smoking Status: Never Smoker Cigarette use (# per day): No Chew tobacco use (# tins/day): No Frequency of alcohol use: None Drug Abuse: None Lives with: Family Family History: Reviewed & Not Pertinent, DM, Hypertension, Other - Brother with blood clots, mother with hysterectomy Patient has suicidal ideation: No Patient has homicidal ideation: No - Past Medical History Cardiac Medical History: Reports: Hx Hypertension Pulmonary Medical History: Reports: Hx Asthma, Hx Bronchitis, Hx Pneumonia, Hx Sleep Apnea Endocrine Medical History: Reports: Hx Diabetes Mellitus Type 2 Renal/ Medical History: Reports: Hx Ovarian Cysts GI Medical History: Reports: Hx Gastroesophageal Reflux Disease, Hx Ulcer Psychiatric Medical History: Reports: Hx Anxiety, Hx Attention Deficit Hyperactivity Disorder, Hx Bipolar Disorder, Hx Depression Past Surgical History: Reports: Hx Adenoidectomy, Hx Gynecologic Surgery - R ovarian cyst 2010 Uterine fibroid removal 2010 in [place]., Hx Tonsillectomy - Immunizations Hx Diphtheria, Pertussis, Tetanus Vaccination: Yes - 06/2011 Review of Systems - Review of Systems Constitutional: denies: Fever EENT: No symptoms reported Cardiovascular: No symptoms reported Respiratory: See HPI, Cough, Short of breath Gastrointestinal: No symptoms reported Genitourinary: No symptoms reported Female Genitourinary: No symptoms reported Musculoskeletal: No symptoms reported Skin: No symptoms reported Hematologic/Lymphatic: No symptoms reported Neurological/Psychological: See HPI, Headaches -: Yes All other systems reviewed and negative Physical Exam - Vital signs Vitals: Temp Pulse Resp BP Pulse Ox 98.6 F 114 H 24 H 150/90 H 88 L 06/24/19 10:51 06/24/19 10:51 06/24/19 10:51 06/24/19 10:51 06/24/19 10:51 Interpretation: Normal - General General appearance: Appears well, Alert - HEENT Head: Normocephalic, Atraumatic Eyes: Normal Pupils: PERRL - Respiratory Respiratory status: No respiratory distress Chest status: Nontender Breath sounds: Decreased air movement Chest palpation: Normal - Cardiovascular Rhythm: Regular Heart sounds: Normal auscultation Murmur: No - Abdominal Inspection: Morbidly Obese - BMI 68 Distension: No distension Bowel sounds: Normal Tenderness: Nontender Organomegaly: No organomegaly - Back Back: Normal, Nontender - Extremities General upper extremity: Normal inspection, Nontender, Normal strength General lower extremity: Normal inspection, Nontender, Normal strength - Neurological Neuro grossly intact: Yes Cognition: Normal Orientation: AAOx4 [place] Coma Scale Eye Opening: Spontaneous [place] Coma Scale Verbal: Oriented [place] Coma Scale Motor: Obeys Commands [place] Coma Scale Total: 15 Speech: Normal - Psychological Associated symptoms: Normal affect, Normal mood - Skin Skin Temperature: Warm Skin Moisture: Dry Skin Color: Normal Course - Re-evaluation Re-evalutation: 06/24/19 14:09 Patient had pulse oximetry placed and after being off of oxygen for almost an hour, she walked to the restroom and back and pulse ox stayed in the 97 to 99% range. 06/24/19 14:38 Patient reports that her headache is completely gone and she feels much better. - Vital Signs Vital signs: Temp Pulse Resp BP Pulse Ox 98.2 F 90 24 H 150/86 H 91 L 06/24/19 14:23 06/24/19 14:23 06/24/19 10:51 06/24/19 14:23 06/24/19 14:23 - Laboratory Result Diagrams: 06/24/19 10:36 06/24/19 10:36 Laboratory results interpreted by me: 06/24/19 06/24/19 06/24/19 10:36 10:36 10:36 WBC 12.0 H RBC 3.53 L Hgb 10.2 L Hct 31.1 L RDW 15.9 H Absolute Neuts (auto) 9.2 H Glucose 204 H Hemoglobin A1c % 6.1 H ALT 40 H - Diagnostic Test Radiology reviewed: Image reviewed, Reports reviewed - Chest x-ray shows a low inspiratory volumes without acute process. Discharge - Discharge Clinical Impression: Bronchitis with bronchospasm Exacerbation of asthma Qualifiers: Asthma severity: mild Asthma persistence: unspecified Qualified Code(s): J45.901 - Unspecified asthma with (acute) exacerbation Headache Qualifiers: Headache type: unspecified Headache chronicity pattern: acute headache Intractability: not intractable Qualified Code(s): R51 - Headache Condition: Stable Disposition: HOME, SELF-CARE Additional Instructions: Bronchitis with Bronchospasm (Wheezing) You have bronchitis with bronchospasm (wheezing). Sometimes people develop wheezing with a chest cold. This occurs either because of an underlying tendency toward asthma or because the virus itself irritates the bronchial tubes. This irritation causes cough, shortness of breath, and wheezing. Emergency treatment of bronchospasm may include adrenaline shots or bronchodilator aerosol. You may feel lightheaded and have a rapid pulse for an hour or two. Rest and get plenty of fluids. At home, we'll treat you with a bronchodilator inhaler. Corticosteroids may be required for some patients. Until you recover, avoid chemical fumes, dusts, pollens, and exercising in very cold or dry air. If you smoke, stop now! Most cases of bronchitis get better without antibiotics. We prescribe antibiotics when we believe bacteria are damaging your airways, or if there's high risk the bronchitis will worsen into pneumonia. Increase your fluid intake. A cool mist humidifier may make your lungs more comfortable. An expectorant (cough medicine that loosens phlegm) can help. Repeated episodes of bronchitis and bronchospasm may result in lung damage -- for example, chronic bronchitis, recurrent pneumonias, or emphysema. If you develop a fever, increased wheezing, chest pain, or severe shortness of breath, you should contact the doctor immediately. Headache The physician does not feel that the headache you are experiencing has a serious underlying cause. Most headaches are due to emotional stress, with resultant muscle tension (tension headache). Occasionally, headaches are secondary to changes in the blood vessels of the scalp (vascular headache and migraine headache). Sometimes, a headache is the first symptom of another developing illness, such as a viral infection. You have no evidence of stroke, bleeding, meningitis, or other serious cause of your headache. The treatment of headaches varies with the severity and cause of the pain. Not all headaches need pain shots. In fact, there is evidence that using narcotics for headaches may make them worse in the long run. The physician will determine the therapy that's in your best interest. If you develop a fever, if the headache is different from any you've previously experienced, or if the headache progressively worsens, then call your physician at once or go to the emergency room. * Continue your regular medications. Add the prednisone as prescribed. You also received a prescription for albuterol for your nebulizer so you do not run out. Drink plenty of fluids and get plenty of rest. Follow-up with your primary care provider if not improving. RETURN TO THE EMERGENCY ROOM IF ANY NEW OR WORSENING SYMPTOMS. Prescriptions: Prednisone [Deltasone 10 mg Tablet] 10 mg PO ASDIR PRN #21 tablet PRN Reason: Albuterol Sulfate [Ventolin 0.083% Neb 2.5 mg/3 mL Ampul] 1 vial NEB Q4 PRN #50 vial PRN Reason: I personally performed the services described in the documentation, reviewed and edited the documentation which was dictated to the scribe in my presence, and it accurately records my words and actions.
[2019-06-24] MEDS ORDERED: GUAIFENESIN/D-METHORPHAN (200-20 MG) SYRUP 10 ML PO ONE (11:50)
--- NOTE | 2019-06-24 12:09 | RADIOLOGY REPORT (SQ) ---
EXAM DESCRIPTION: CHEST SINGLE VIEW IMAGES COMPLETED DATE/TIME: 06/24/2019 11:52 am REASON FOR STUDY: shortness of breath COMPARISON: PA and lateral views of the chest from 06/15/2019. EXAM PARAMETERS: NUMBER OF VIEWS: One view. TECHNIQUE: An AP view of the chest was obtained. RADIATION DOSE: NA LIMITATIONS: None. FINDINGS: LUNGS AND PLEURA: No consolidation, pleural effusion or pneumothorax. MEDIASTINUM AND HILAR STRUCTURES: No mediastinal or hilar contour abnormality. HEART AND VASCULAR STRUCTURES: The cardiac silhouette and pulmonary vasculature are within normal castro its. BONES: No acute findings. HARDWARE: None in the chest. OTHER: No other finding. IMPRESSION: Low inspiratory lung volumes without a superimposed acute cardiopulmonary process. TECHNICAL DOCUMENTATION: JOB ID: [id number] 2010 [employer]- All Rights Reserved Reading location - IP/workstation name: [email or web address]
[2019-06-24] MEDS ORDERED: ALBUTEROL SULFATE 0.083% NEB 2.5 MG/3 ML AMPUL NEB ONE (13:15)
[2019-06-24 14:26] VITALS: BP 150/86
== END 2019-06-24 14:33 | disposition home or self-care (01) ==
LOC: ER 10:14
DX: J45.901 Unspecified asthma with (acute) exacerbation (principal); R51 Headache; R06.02 Shortness of breath; R05 Cough; Z88.1 Allergy status to other antibiotic agents; Z88.8 Allergy status to other drugs, medicaments and biological substances; Z88.0 Allergy status to penicillin; Z79.899 Other long term (current) drug therapy; I10 Essential (primary) hypertension; E11.9 Type 2 diabetes mellitus without complications
CPT/HCPCS: 94640 ×2; 99285; 96375; 96365; 96366; 36415; 85025; 80053; 83036; 71045; J1200; J2930; J1885; J3475; J0780; J3490; J7620

== ENCOUNTER 2019-06-30 15:47 | Emergency (ER) | payer OTHER ==
--- NOTE | 2019-06-30 16:31 | ER Document Report ---
ED General - General Chief Complaint: Shortness Of Breath Stated Complaint: SHORTNESS OF BREATH Time Seen by Provider: 06/30/19 16:30 Primary Care Provider: ERIC MYERS MD [Primary Care Provider] - Follow up as needed Mode of Arrival: Ambulatory Information source: Patient TRAVEL OUTSIDE OF THE [place] IN LAST 30 DAYS: No - HPI Onset: Other - over the last several weeks Onset/Duration: Gradual Quality of pain: Achy Severity: Moderate Pain Level: 1 Associated symptoms: Shortness of breath, Other - wheezing Exacerbated by: Walking, Other - exertion Relieved by: Remaining still, Other - breathing treatments Similar symptoms previously: Yes - patient has been seen in this ER several times for similar issues Recently seen / treated by doctor: Yes - Seen in this ER on 06/15/19 and had CTA chest and seen on 06/24/19 for asthma Notes: 34 year old female with a history of Morbid Obesity, Asthma, FROYLAN Anxiety, Depression here for several weeks of shortness of breath, wheezing, and off and on chest pains. The patient was seen in this ER on 06/15/19 and had a CTA chest showing no PE and she was seen on 06/24/19 and treated for asthma with a prednisone taper (she has one day left). The patient denies fevers, chills, sweats, vomiting, productive cough. The patient endorses a mild cough and sore throat. - Related Data Allergies/Adverse Reactions: amoxicillin [Amoxicillin] Allergy (Verified 06/30/19 16:27) benzonatate [From Tessalon Perles] Allergy (Verified 06/30/19 16:27) fluticasone [From Advair Diskus] Allergy (Verified 06/30/19 16:27) iloperidone [From Fanapt] Allergy (Verified 06/30/19 16:27) Penicillins Allergy (Verified 06/30/19 16:27) salmeterol [From Advair Diskus] Allergy (Verified 06/30/19 16:27) Past Medical History - General Information source: Patient - Social History Smoking Status: Never Smoker Frequency of alcohol use: None Drug Abuse: None Family History: Reviewed & Not Pertinent, DM, Hypertension, Other - Brother with blood clots, mother with hysterectomy - Past Medical History Cardiac Medical History: Reports: Hx Hypertension Pulmonary Medical History: Reports: Hx Asthma, Hx Bronchitis, Hx Pneumonia, Hx Sleep Apnea Endocrine Medical History: Reports: Hx Diabetes Mellitus Type 2 Renal/ Medical History: Reports: Hx Ovarian Cysts GI Medical History: Reports: Hx Gastroesophageal Reflux Disease, Hx Ulcer Psychiatric Medical History: Reports: Hx Anxiety, Hx Attention Deficit Hyperactivity Disorder, Hx Bipolar Disorder, Hx Depression Past Surgical History: Reports: Hx Adenoidectomy, Hx Gynecologic Surgery - R o varian cyst 2010 Uterine fibroid removal 2010 in [place]., Hx Tonsillectomy - Immunizations Hx Diphtheria, Pertussis, Tetanus Vaccination: Yes - 06/2011 Review of Systems - Review of Systems Constitutional: No symptoms reported EENT: Throat pain Cardiovascular: Chest pain Respiratory: Cough, Short of breath Gastrointestinal: No symptoms reported Genitourinary: No symptoms reported Female Genitourinary: No symptoms reported Musculoskeletal: No symptoms reported Skin: No symptoms reported Hematologic/Lymphatic: No symptoms reported Neurological/Psychological: No symptoms reported -: Yes All other systems reviewed and negative Physical Exam - Vital signs Vitals: Temp Resp BP Pulse Ox 97.7 F 19 162/77 H 100 06/30/19 16:02 06/30/19 16:02 06/30/19 16:02 06/30/19 16:02 - Notes Notes: GENERAL: Well-appearing, well-nourished and in no acute distress. HEAD: Atraumatic, normocephalic. EYES: Pupils equal round and reactive to light, extraocular movements intact, sclera anicteric, conjunctiva are normal. ENT: External ears normal, nares patent, oropharynx clear without exudates. Moist mucous membranes. NECK: Normal range of motion, supple without lymphadenopathy or JVD. LUNGS: Breath sounds clear to auscultation bilaterally and equal. No wheezes rales or rhonchi. HEART: Regular rate and rhythm without murmurs, rubs or gallops. ABDOMEN: Soft, nontender, normoactive bowel sounds. No guarding, no rebound. No masses appreciated. EXTREMITIES: Normal range of motion, no pitting or edema. No clubbing or cyanosis. NEUROLOGICAL: Cranial nerves II through XII grossly intact. Normal speech, normal gait. PSYCH: Normal mood, normal affect. SKIN: Warm, Dry, normal turgor, no rashes or lesions noted. Course - Re-evaluation Re-evalutation: 06/30/19 18:27 The patient is here in the ER for persistent shortness of breath, mild wheezing, and chest pains. She has been to this ER several times for this in the recent past and she has had a CTA chest which ruled out a PE and she has had multiple normal Trops and Chest Xrays. Patient has FROYLAN but she says she has been using her CPAP machine. Patient has one day left of a previous steroid taper which she was told to finish. Patients has an elevate WBC and glucose which is likely from her glucose taper. Patient told to follow up with her PCP and a [facility]. - Vital Signs Vital signs: Temp Pulse Resp BP Pulse Ox 97.7 F 19 162/77 H 100 06/30/19 16:38 06/30/19 16:02 06/30/19 16:02 06/30/19 16:38 - Laboratory Result Diagrams: 06/30/19 16:20 06/30/19 16:20 Laboratory results interpreted by me: 06/30/19 06/30/19 16:20 16:20 WBC 16.2 H RBC 3.59 L Hgb 10.5 L Hct 32.1 L RDW 15.9 H Absolute Neuts (auto) 11.1 H Sodium 136.2 L Chloride 97 L Carbon Dioxide 33 H Glucose 213 H ALT 46 H Alkaline Phosphatase 168 H - Diagnostic Test Radiology reviewed: Image reviewed, Reports reviewed - EKG Interpretation by [place] EKG shows normal: Sinus rhythm, [place], Intervals, QRS Complexes, ST-T Waves Rate: Normal Rhythm: NSR Discharge - Discharge Clinical Impression: Shortness of breath Asthma Qualifiers: Asthma severity: mild Asthma persistence: intermittent Asthma complication type: with acute exacerbation Qualified Code(s): J45.21 - Mild intermittent asthma with (acute) exacerbation Chest pain Qualifiers: Chest pain type: unspecified Qualified Code(s): R07.9 - Chest pain, unspecified Condition: Stable Disposition: HOME, SELF-CARE Instructions: Asthma ([facility]), Chest Pain of Unclear Cause ([facility]) Additional Instructions: Follow up with your primary care doctor and also consider follow up with a [facility]. Use Duonebs as needed for wheezing and shortness of breath. Finish your previously prescribed steroid taper. You had blood work, an EKG, and a chest xray in the ER which were unremarkable. You have previously had a CT of your chest recently showing no blood clot. Try using over the counter Melatonin for trouble with sleeping. Prescriptions: Ipratropium/Albuterol Sulfate [Duoneb 3 ml Ampul] 3 ml NEB RTQ4 PRN #1 pkg PRN Reason: Referrals: ERIC MYERS MD [Primary Care Provider] - Follow up as needed
[2019-06-30 16:48] LABS: VENOUS BLOOD BASE EXCESS 4.4 mmol/L; VENOUS BLOOD HCO3 31.4 mmol/L (20-32); VENOUS BLOOD PCO2 56.9 mmHg (35-63); VENOUS BLOOD PH 7.36 (7.30-7.42)
[2019-06-30] MEDS ORDERED: IPRATROPIUM/ALBUTEROL 0.5-2.5 MG/3 ML AMPUL NEB ONE (17:01)
[2019-06-30 17:04] LABS: ALKALINE PHOSPHATASE 168 U/L (38-126); ANION GAP 6 (5-19); ASPARTATE AMINO TRANSFERASE 23 U/L (14-36); BILIRUBIN,TOTAL 0.3 mg/dL (0.2-1.3); BLOOD UREA NITROGEN 18 mg/dL (7-20); CALCIUM 9.5 mg/dL (8.4-10.2); CARBON DIOXIDE 33 mmol/L (22-30); CHLORIDE 97 mmol/L (98-107); GLUCOSE 213 mg/dL (75-110); POTASSIUM 4.5 mmol/L (3.6-5.0); TOTAL PROTEIN 7.3 g/dL (6.3-8.2)
[2019-06-30 17:06] LABS: ABSOLUTE BASOPHILS # (AUTO) 0.1 10^3/uL (0.0-0.2); ABSOLUTE EOSINOPHILS # (AUTO) 0.1 10^3/uL (0.0-0.6); ABSOLUTE LYMPHOCYTES (AUTO) 4.2 10^3/uL (0.5-4.7); ABSOLUTE MONOCYTES (AUTO) 0.8 10^3/uL (0.1-1.4); ABSOLUTE NEUT (AUTO) 11.1 10^3/uL (1.7-8.2); BASOPHILS % (AUTO) 0.4 % (0-2); EOSINOPHILS % (AUTO) 0.6 % (0-6); HEMATOCRIT 32.1 % (36.0-47.0); HEMOGLOBIN 10.5 g/dL (12.0-15.5); MEAN CORPUSCULAR HEMOGLOBIN 29.2 pg (27.0-33.4); MEAN CORPUSCULAR HGB CONC 32.7 g/dL (32.0-36.0); MEAN CORPUSCULAR VOLUME 89 fl (80-97); MONOCYTES % (AUTO) 4.7 % (3-13); PLATELET COUNT 393 10^3/uL (150-450); RED BLOOD COUNT 3.59 10^6/uL (3.72-5.28); RED CELL DISTRIBUTION WIDTH 15.9 % (11.5-14.0); SEGMENTED NEUTROPHILS % (AUTO) 68.3 % (42-78); TOTAL CELLS COUNTED % (AUTO) 100 %; WHITE BLOOD COUNT 16.2 10^3/uL (4.0-10.5)
--- NOTE | 2019-06-30 18:11 | RADIOLOGY REPORT (SQ) ---
EXAM DESCRIPTION: CHEST SINGLE VIEW IMAGES COMPLETED DATE/TIME: 06/30/2019 4:33 pm REASON FOR STUDY: eval for SOB COMPARISON: 06/24/2019 EXAM PARAMETERS: NUMBER OF VIEWS: One view. TECHNIQUE: Single frontal radiographic view of the chest acquired. RADIATION DOSE: NA LIMITATIONS: None. FINDINGS: LUNGS AND PLEURA: No opacities, masses or pneumothorax. No pleural effusion. MEDIASTINUM AND HILAR STRUCTURES: No masses. Contour normal. HEART AND VASCULAR STRUCTURES: Heart normal in size. Normal vasculature. BONES: No acute findings. HARDWARE: None in the chest. OTHER: No other significant finding. IMPRESSION: NO ACUTE RADIOGRAPHIC FINDING IN THE CHEST. TECHNICAL DOCUMENTATION: JOB ID: [id number] 2010 [employer]- All Rights Reserved Reading location - IP/workstation name: [email or web address]
[2019-06-30 19:03] VITALS: BP 165/99
--- NOTE | 2019-07-01 07:20 | EKG REPORT ---
SEVERITY:- NORMAL ECG - SINUS RHYTHM : Confirmed by: Luis Eduardo Medrano MD 01-Jul-2019 07:20:22
== END 2019-06-30 19:02 | disposition home or self-care (01) ==
LOC: ER 15:47
DX: J45.21 Mild intermittent asthma with (acute) exacerbation (principal); R06.02 Shortness of breath; R07.9 Chest pain, unspecified; R05 Cough; J02.9 Acute pharyngitis, unspecified; D72.829 Elevated white blood cell count, unspecified; I10 Essential (primary) hypertension; E11.9 Type 2 diabetes mellitus without complications; Z87.01 Personal history of pneumonia (recurrent); Z88.0 Allergy status to penicillin; Z88.8 Allergy status to other drugs, medicaments and biological substances
CPT/HCPCS: 93005; 94640; 99285; 36415; 85025; 80053; 82803; 71045; 93010; J7620

== ENCOUNTER 2019-07-17 11:42 | Emergency (ER) | payer SELFPAY ==
[2019-07-17 12:19] LABS: ABSOLUTE EOSINOPHILS # (AUTO) 0.1 10^3/uL (0.0-0.6); ABSOLUTE MONOCYTES (AUTO) 0.4 10^3/uL (0.1-1.4); ABSOLUTE NEUT (AUTO) 5.4 10^3/uL (1.7-8.2); BASOPHILS % (AUTO) 0.3 % (0-2); EOSINOPHILS % (AUTO) 1.9 % (0-6); HEMATOCRIT 33.8 % (36.0-47.0); MEAN CORPUSCULAR HEMOGLOBIN 28.3 pg (27.0-33.4); MEAN CORPUSCULAR HGB CONC 32.5 g/dL (32.0-36.0); MEAN CORPUSCULAR VOLUME 87 fl (80-97); MONOCYTES % (AUTO) 4.5 % (3-13); PLATELET COUNT 373 10^3/uL (150-450); RED BLOOD COUNT 3.87 10^6/uL (3.72-5.28); RED CELL DISTRIBUTION WIDTH 15.2 % (11.5-14.0); SEGMENTED NEUTROPHILS % (AUTO) 68.3 % (42-78); TOTAL CELLS COUNTED % (AUTO) 100 %; WHITE BLOOD COUNT 7.9 10^3/uL (4.0-10.5)
[2019-07-17] MEDS ORDERED: IPRATROPIUM/ALBUTEROL 0.5-2.5 MG/3 ML AMPUL NEB ONE (12:40)
--- NOTE | 2019-07-17 12:45 | ER Document Report ---
ED Respiratory Problem - General Chief Complaint: Shortness Of Breath Stated Complaint: SHORTNESS OF BREATH Time Seen by Provider: 07/17/19 11:49 Primary Care Provider: ERIC MYERS MD [Primary Care Provider] - Follow up tomorrow Mode of Arrival: Ambulatory Information source: Patient Notes: Patient presents complaining of shortness of breath for the past 2 days. Patient states she has a home pulse ox meter and put it on her finger and it registered a pulse ox of 85%. Patient complains of generalized body aches nausea and diarrhea x3 episodes. Patient denies any cough. Patient states that she had some heaviness in her chest that resolved after using a nebulizer at home. Patient states that she is currently out of her albuterol inhaler. Patient denies any recent travel, bedrest or immobilization. Patient denies any recent exposures to sick contacts. Patient has been seen 4 times over the past month for similar complaints. TRAVEL OUTSIDE OF THE [place] IN LAST 30 DAYS: No - HPI Patient complains to provider of: Asthma, Short of breath. No: Cough Onset: Other Duration: Better Quality of pain: No pain Context: Hx asthma. denies: , Recent immobilization, Smoker At home treatment: Bronchodilators Associated symptoms: Short of breath. denies: Bloody cough, Congestion, Cough, Fever Similar symptoms previously: Yes Recently seen / treated by doctor: Yes - Related Data Allergies/Adverse Reactions: amoxicillin [Amoxicillin] Allergy (Verified 06/30/19 16:27) benzonatate [From Tessalon Perles] Allergy (Verified 06/30/19 16:27) fluticasone [From Advair Diskus] Allergy (Verified 06/30/19 16:27) iloperidone [From Fanapt] Allergy (Verified 06/30/19 16:27) Penicillins Allergy (Verified 06/30/19 16:27) salmeterol [From Advair Diskus] Allergy (Verified 06/30/19 16:27) Past Medical History - General Information source: Patient - Social History Smoking Status: Never Smoker Frequency of alcohol use: None Drug Abuse: None Occupation: None Lives with: Family Family History: Reviewed & Not Pertinent, DM, Hypertension, Other - Brother with blood clots, mother with hysterectomy - Past Medical History Cardiac Medical History: Reports: Hx Hypertension Pulmonary Medical History: Reports: Hx Asthma, Hx Bronchitis, Hx Pneumonia, Hx Sleep Apnea Endocrine Medical History: Reports: Hx Diabetes Mellitus Type 2 Renal/ Medical History: Reports: Hx Ovarian Cysts GI Medical History: Reports: Hx Gastroesophageal Reflux Disease, Hx Ulcer Psychiatric Medical History: Reports: Hx Anxiety, Hx Attention Deficit Hyperactivity Disorder, Hx Bipolar Disorder, Hx Depression Past Surgical History: Reports: Hx Adenoidectomy, Hx Gynecologic Surgery - R ovarian cyst 2010 Uterine fibroid removal 2010 in [place]., Hx Tonsillectomy - Immunizations Hx Diphtheria, Pertussis, Tetanus Vaccination: Yes - 06/2011 Review of Systems - Review of Systems Constitutional: No symptoms reported. denies: Fever EENT: No symptoms reported Cardiovascular: No symptoms reported. denies: Chest pain, Palpitations Respiratory: Short of breath. denies: Cough Gastrointestinal: Diarrhea, Nausea. denies: Abdominal pain, Vomiting Genitourinary: No symptoms reported. denies: Burning, Dysuria Female Genitourinary: No symptoms reported Musculoskeletal: No symptoms reported. denies: Back pain Skin: No symptoms reported Hematologic/Lymphatic: No symptoms reported Neurological/Psychological: No symptoms reported Physical Exam - Vital signs Vitals: Resp Pulse Ox 33 H 99 07/17/19 11:47 07/17/19 11:47 - General General appearance: Appears well, Alert In distress: None - HEENT Head: Normocephalic, Atraumatic Eyes: Normal Conjunctiva: Normal Nasal: Normal Mouth/Lips: Normal Mucous membranes: Normal Neck: Normal, Supple. No: Lymphadenopathy - Respiratory Respiratory status: No respiratory distress Chest status: Nontender Breath sounds: Normal. No: Rales, Rhonchi, Stridor, Wheezing Chest palpation: Normal - Cardiovascular Rhythm: Regular. No: Tachycardia Heart sounds: S1 appreciated, S2 appreciated - Abdominal Inspection: Morbidly Obese Tenderness: Nontender - Back Back: Normal - Extremities General upper extremity: Normal inspection, Normal strength General lower extremity: Normal inspection, Normal strength - Neurological Neuro grossly intact: Yes Cognition: Normal Marci Coma Scale Eye Opening: Spontaneous [place] Coma Scale Verbal: Oriented Marci Coma Scale Motor: Obeys Commands Marci Coma Scale Total: 15 - Psychological Associated symptoms: Normal affect, Normal mood - Skin Skin Temperature: Warm Skin Moisture: Dry Skin Color: Normal Course - Re-evaluation Re-evalutation: 07/17/19 13:59 Patient presents with complaint of shortness of breath for the past 2 days. Patient's x-ray reviewed no findings worrisome for pneumonia. Patient does have a history of asthma and states that she is out of her albuterol inhaler. Patient states that she has had some nausea diarrhea and generalized body aches. Patient without any chest pain at this time. Patient has been seen for this complaint 4 times over the past month and has had a CTA last month that did not show any PE. Patient will be COVID tested. Patient's respirations even and unlabored, patient nontoxic in appearance. No tachypnea. Breath sounds clear bilaterally. Presentation of shortness of breath in an otherwise well appearing patient. Low clinical suspicion for ACS given clinical history, exam, EKG without ST elevations or depressions, and negative initial troponin. HEART score less than or equal to 3. CXR without evidence of pneumothorax or pneumonia. No widened mediastinum. Shortness of breath in a patient without evidence of cardiac or other serious etiology on workup today. I discussed with patient that, based on their age, risk factors and emergency department testing today, the likelihood that their symptoms are related to a heart attack is very low. The patient demonstrates decision making capacity and has verbalized an understanding of these risks to me. Based on this, the patient has chosen to follow-up as an outpatient. Usual chest pain return precautions reviewed. The patient states understanding and agreement with this plan. The patient was evaluated during the global Covid 19 pandemic, and that diagnosis was suspected/considered upon their initial presentation. Their evaluation, treatment and testing was consistent with current guidelines for patients who present with complaints or symptoms that may be related to Covid 19. Patient presents with upper respiratory symptoms worrisome for possible Covid 19. Patient does not have emergency worrying symptoms such as difficulty breathing, chest pain, pressure, confusion or cyanosis. Patient appears suitable for discharge as vital signs are stable and patient is nontoxic in appearance. Good return precautions have been discussed with patient, patient verbalized understanding and is agreeable with discharge plan of care at this time. - Vital Signs Vital signs: Temp Pulse Resp BP Pulse Ox 98.0 F 23 H 142/65 H 98 07/17/19 12:45 07/17/19 14:01 07/17/19 14:34 07/17/19 13:59 - Laboratory Result Diagrams: 07/17/19 12:02 07/17/19 12:02 Laboratory results interpreted by me: 07/17/19 07/17/19 07/17/19 12:02 12:02 12:10 Hgb 11.0 L Hct 33.8 L RDW 15.2 H Sodium 134.9 L Chloride 97 L Carbon Dioxide 31 H Glucose 214 H POC Glucose 183 H ALT 43 H Alkaline Phosphatase 159 H 07/17/19 13:59 Labs- Entire Visit 07/17/19 07/17/19 07/17/19 12:02 12:02 12:02 WBC 7.9 RBC 3.87 Hgb 11.0 L Hct 33.8 L MCV 87 MCH 28.3 MCHC 32.5 RDW 15.2 H Plt Count 373 Lymph % (Auto) 25.0 [place] % (Auto) 4.5 Eos % (Auto) 1.9 Baso % (Auto) 0.3 Absolute Neuts (auto) 5.4 Absolute Lymphs (auto) 2.0 Absolute Monos (auto) 0.4 Absolute Eos (auto) 0.1 Absolute Basos (auto) 0.0 Seg Neutrophils % 68.3 Sodium 134.9 L Potassium 4.6 Chloride 97 L Carbon Dioxide 31 H Anion Gap 7 BUN 10 Creatinine 0.64 Est GFR ( Amer) > 60 Est GFR (MDRD) Non-Af > 60 Glucose 214 H POC Glucose Calcium 8.9 Total Bilirubin 0.3 Direct Bilirubin 0.0 Neonat Total Bilirubin Not Reportable Neonat Direct Bilirubin Not Reportable Neonat Indirect Bili Not Reportable AST 36 ALT 43 H Alkaline Phosphatase 159 H Troponin I < 0.012 Total Protein 7.1 Albumin 3.7 07/17/19 12:10 WBC RBC Hgb Hct MCV MCH MCHC RDW Plt Count Lymph % (Auto) Upson % (Auto) Eos % (Auto) Baso % (Auto) Absolute Neuts (auto) Absolute Lymphs (auto) Absolute Monos (auto) Absolute Eos (auto) Absolute Basos (auto) Seg Neutrophils % Sodium Potassium Chloride Carbon Dioxide Anion Gap BUN Creatinine Est GFR ( Amer) Est GFR (MDRD) Non-Af Glucose POC Glucose 183 H Calcium Total Bilirubin Direct Bilirubin Neonat Total Bilirubin Neonat Direct Bilirubin Neonat Indirect Bili AST ALT Alkaline Phosphatase Troponin I Total Protein Albumin - Diagnostic Test Radiology reviewed: Reports reviewed Discharge - Discharge Clinical Impression: Nausea Asthma Qualifiers: Asthma severity: unspecified severity Asthma persistence: unspecified Asthma complication type: unspecified Qualified Code(s): J45.909 - Unspecified asthma, uncomplicated Diarrhea Qualifiers: Diarrhea type: unspecified type Qualified Code(s): R19.7 - Diarrhea, unspecified Condition: Stable Disposition: HOME, SELF-CARE Instructions: Asthma ([facility]), Dyspnea, Nonspecific ([facility]) Additional Instructions: Return immediately for any new or worsening symptoms Followup with your primary care provider, call tomorrow to make a followup appointment As a person under investigation for Covid 19, the [facility] of Health and Human Services, division of public health advises you to adhere to the following guidance until your test results are reported to you. If your test result is positive, you will receive additional information from your provider and your local health department at that time. Remain at home until you are cleared by the health provider or public health authorities. Keep a log of visitors to your home, notify any visitors to your home of your isolation status. If you plan to move to a new address or leave the [facility], notify the local health department in your County. Call your doctor or seek care if you have an urgent medical need. Before seeking medical care, call ahead to get instructions from the provider before arriving at the medical office clinic or hospital. Notify them that you are being tested for the virus that causes Covid 19 so that arrangements can be made, as necessary, to prevent transmission to others in the healthcare setting. Next, notify the local health department in your county. If a medical emergency arises and you need to call 911, inform the first responders that you are being tested for the virus that causes Covid 19. Next, notify the local health department in your county. Prescriptions: Inhaler,Assist Device,Accesory [Optichamber] 1 each MC Q4 PRN #1 each PRN Reason: Albuterol Sulfate [Proair Hfa Inhalation Aerosol 8.5 gm Mdi] 2 puff IH Q4 PRN #1 mdi PRN Reason: Referrals: ERIC MYERS MD [Primary Care Provider] - Follow up tomorrow
[2019-07-17 12:46] LABS: ALBUMIN 3.7 g/dL (3.5-5.0); ALKALINE PHOSPHATASE 159 U/L (38-126); ANION GAP 7 (5-19); ASPARTATE AMINO TRANSFERASE 36 U/L (14-36); BILIRUBIN,TOTAL 0.3 mg/dL (0.2-1.3); BLOOD UREA NITROGEN 10 mg/dL (7-20); CALCIUM 8.9 mg/dL (8.4-10.2); CARBON DIOXIDE 31 mmol/L (22-30); CHLORIDE 97 mmol/L (98-107); GLUCOSE 214 mg/dL (75-110); POTASSIUM 4.6 mmol/L (3.6-5.0); TOTAL PROTEIN 7.1 g/dL (6.3-8.2)
--- NOTE | 2019-07-17 12:47 | RADIOLOGY REPORT (SQ) ---
EXAM DESCRIPTION: CHEST SINGLE VIEW IMAGES COMPLETED DATE/TIME: 07/17/2019 12:35 pm REASON FOR STUDY: SOB COMPARISON: 06/30/2019 EXAM PARAMETERS: NUMBER OF VIEWS: One view. TECHNIQUE: Single frontal radiographic view of the chest acquired. RADIATION DOSE: NA LIMITATIONS: None. FINDINGS: LUNGS AND PLEURA: No opacities, masses or pneumothorax. No pleural effusion. MEDIASTINUM AND HILAR STRUCTURES: No masses. Contour normal. HEART AND VASCULAR STRUCTURES: Heart normal in size. Normal vasculature. BONES: No acute findings. HARDWARE: None in the chest. OTHER: No other significant finding. IMPRESSION: NO ACUTE RADIOGRAPHIC FINDING IN THE CHEST. TECHNICAL DOCUMENTATION: JOB ID: [id number] 2010 [employer]- All Rights Reserved Reading location - IP/workstation name: [email or web address]
[2019-07-17 14:59] VITALS: BP 142/65
--- NOTE | 2019-07-17 22:31 | EKG REPORT ---
SEVERITY:- NORMAL ECG - SINUS RHYTHM : Confirmed by: Aleah Arndt MD 17-Jul-2019 22:31:31
== END 2019-07-17 14:59 | disposition home or self-care (01) ==
LOC: ER 11:42
DX: J45.909 Unspecified asthma, uncomplicated (principal); R11.0 Nausea; R19.7 Diarrhea, unspecified; R06.02 Shortness of breath; M79.10 Myalgia, unspecified site; Z88.1 Allergy status to other antibiotic agents; Z88.8 Allergy status to other drugs, medicaments and biological substances; I10 Essential (primary) hypertension; E11.9 Type 2 diabetes mellitus without complications; Z20.828 Contact with and (suspected) exposure to other viral communicable diseases
CPT/HCPCS: 93005; 94640; 99285; 36415; 82962; 85025; 87635; 80053; 84484; 71045; 93010; J7620

== ENCOUNTER 2019-07-30 19:16 | Emergency (ER) | payer SELFPAY ==
[2019-07-30 20:19] LABS: ABSOLUTE EOSINOPHILS # (AUTO) 0.1 10^3/uL (0.0-0.6); ABSOLUTE LYMPHOCYTES (AUTO) 1.9 10^3/uL (0.5-4.7); ABSOLUTE MONOCYTES (AUTO) 0.5 10^3/uL (0.1-1.4); ABSOLUTE NEUT (AUTO) 8.5 10^3/uL (1.7-8.2); BASOPHILS % (AUTO) 0.4 % (0-2); EOSINOPHILS % (AUTO) 1.1 % (0-6); HEMATOCRIT 31.9 % (36.0-47.0); LYMPHOCYTES % (AUTO) 17.3 % (13-45); MEAN CORPUSCULAR HEMOGLOBIN 27.4 pg (27.0-33.4); MEAN CORPUSCULAR HGB CONC 31.4 g/dL (32.0-36.0); MEAN CORPUSCULAR VOLUME 87 fl (80-97); MONOCYTES % (AUTO) 4.6 % (3-13); PLATELET COUNT 348 10^3/uL (150-450); RED BLOOD COUNT 3.66 10^6/uL (3.72-5.28); RED CELL DISTRIBUTION WIDTH 15.2 % (11.5-14.0); SEGMENTED NEUTROPHILS % (AUTO) 76.6 % (42-78); TOTAL CELLS COUNTED % (AUTO) 100 %; WHITE BLOOD COUNT 11.1 10^3/uL (4.0-10.5)
[2019-07-30] MEDS ORDERED: NORMAL SALINE 1000 ML 1,000 ML IV ONE (20:46)
[2019-07-30 20:49] LABS: ALBUMIN 3.5 g/dL (3.5-5.0); ALKALINE PHOSPHATASE 144 U/L (38-126); ANION GAP 7 (5-19); ASPARTATE AMINO TRANSFERASE 25 U/L (14-36); BILIRUBIN,TOTAL 0.3 mg/dL (0.2-1.3); BLOOD UREA NITROGEN 12 mg/dL (7-20); CALCIUM 8.8 mg/dL (8.4-10.2); CARBON DIOXIDE 29 mmol/L (22-30); CHLORIDE 100 mmol/L (98-107); GLUCOSE 217 mg/dL (75-110); POTASSIUM 4.2 mmol/L (3.6-5.0); TOTAL PROTEIN 6.8 g/dL (6.3-8.2)
--- NOTE | 2019-07-30 20:50 | ER Document Report ---
ED General - General Chief Complaint: Shortness Of Breath Stated Complaint: SHORTNESS OF BREATH/ABDOMINAL PAIN Time Seen by Provider: 07/30/19 20:24 Primary Care Provider: ERIC MYERS MD [Primary Care Provider] - Follow up in 3-5 days Notes: Patient is a 34-year-old female that comes emergency department for chief complaint of shortness of breath. She states that she gets this intermittently, frequently she is wheezing. She states this is been coming and going for the past 4 months. She states she has been on prednisone intermittently and this helps some, her albuterol sometimes helps and sometimes does not. She denies chest pain, fever, cough, nausea, vomiting. She had a negative COVID-19 testing on 07/17/2019. She does have a history of asthma. She also has a history of morbid obesity, type 2 diabetes, hypertension, sleep apnea and wears a CPAP at night. She states that she was placed on Lasix for swelling of her lower extremities. She states she had a negative echocardiogram with Dr. Ross. She denies recent travel, recent illness exposure, smoking, history of DVT/PE. TRAVEL OUTSIDE OF THE [place] IN LAST 30 DAYS: No - Related Data Allergies/Adverse Reactions: amoxicillin [Amoxicillin] Allergy (Verified 06/30/19 16:27) benzonatate [From Tessalon Perles] Allergy (Verified 06/30/19 16:27) fluticasone [From Advair Diskus] Allergy (Verified 06/30/19 16:27) iloperidone [From Fanapt] Allergy (Verified 06/30/19 16:27) Penicillins Allergy (Verified 06/30/19 16:27) salmeterol [From Advair Diskus] Allergy (Verified 06/30/19 16:27) Home Medications: Albuterol inhaler. Duoneb. Percocet. prazasin. Vistaril. metformin. Iron Past Medical History - General Information source: Patient - Social History Smoking Status: Never Smoker Chew tobacco use (# tins/day): No Frequency of alcohol use: None Drug Abuse: None Lives with: Family Family History: Reviewed & Not Pertinent, DM, Hypertension, Other - Brother with blood clots, mother with hysterectomy Patient has homicidal ideation: No - Past Medical History Cardiac Medical History: Reports: Hx Hypertension Pulmonary Medical History: Reports: Hx Asthma, Hx Bronchitis, Hx Pneumonia, Hx Sleep Apnea Endocrine Medical History: Reports: Hx Diabetes Mellitus Type 2 Renal/ Medical History: Reports: Hx Ovarian Cysts GI Medical History: Reports: Hx Gastroesophageal Reflux Disease, Hx Ulcer Psychiatric Medical History: Reports: Hx Anxiety, Hx Attention Deficit Hyperactivity Disorder, Hx Bipolar Disorder, Hx Depression Past Surgical History: Reports: Hx Adenoidectomy, Hx Gynecologic Surgery - R ovarian cyst 2010 Uterine fibroid removal 2010 in [place]., Hx Tonsillectomy - Immunizations Hx Diphtheria, Pertussis, Tetanus Vaccination: Yes - 06/2011 Review of Systems - Review of Systems Constitutional: See HPI EENT: No symptoms reported Cardiovascular: No symptoms reported Respiratory: See HPI Gastrointestinal: No symptoms reported Genitourinary: No symptoms reported Female Genitourinary: No symptoms reported Musculoskeletal: No symptoms reported Skin: No symptoms reported Hematologic/Lymphatic: No symptoms reported Neurological/Psychological: No symptoms reported Physical Exam - Vital signs Vitals: Pulse Ox 97 07/30/19 19:40 - Notes Notes: GENERAL: Alert, interacts well. No acute distress. Talkative and well-appearing HEAD: Normocephalic, atraumatic. EYES: Pupils equal, round, and reactive to light. Extraocular movements intact. ENT: Oral mucosa moist, tongue midline. Small ulcerated area along the right side of the tongue. Oropharynx unremarkable. Airway patent. Nares patent, sinuses non-tender, ear canals unremarkable, TM's intact. NECK: Full range of motion. Supple. Trachea midline. No lymphadenopathy. LUNGS: Clear to auscultation bilaterally, no wheezes, rales, or rhonchi. No re spiratory distress. Non-tender chest wall. HEART: Borderline tachycardic, normal rhythm, no murmur ABDOMEN: Soft, non-tender. Non-distended. Bowel sounds present in all 4 quadrants. GENITOURINARY: Deferred EXTREMITIES: Moves all 4 extremities spontaneously. No edema, normal radial and dorsalis pedis pulses bilaterally. No cyanosis. BACK: no cervical, thoracic, lumbar midline tenderness. No saddle anesthesia, normal distal neurovascular exam. Moves all extremities in full range of motion. NEUROLOGICAL: Alert and oriented x3. Normal speech. Cranial nerves II through XII grossly intact. Strength 5/5 in all extremities. PSYCH: Normal affect, normal mood. SKIN: Warm, dry, normal turgor. Mildly erythematous area suggestive of [place] in the right axillary area and over the right aspect of the chest underneath the breast. Course - Re-evaluation Re-evalutation: 07/30/19 20:49 Patient is morbidly obese. She is somewhat tachycardic on my exam, she has clear lungs, no respiratory distress, no tachypnea, no hypoxia. No noted lower extremity swelling. She is still complaining of shortness of breath. Patient is very talkative and well-appearing. Because of her ongoing symptoms of shortness of breath, reported shortness of breath currently with tachycardia and lack of wheezing, d-dimer was performed but was positive. CBC and chemistry are nonspecific. Patient does not have any chest pain, EKG unremarkable without significant change from prior. Chest x-ray unremarkable. CTA was performed because of tachycardia, elevated d-dimer, ongoing shortness of breath, morbid obesity. This shows some lymphadenopathy which is similar compared to prior with some additions. I discussed this in detail with patient. Patient states she will follow with primary care in regards to this. Patient is pleased with these results. Patient appears to have aphthous ulcer on the tongue and was provided with lidocaine for this, she also had a mild yeast infection over the right axillary and chest areas and was provided with Diflucan after discussion. Patient had been given IV fluids, on my reevaluation she is not tachycardic, she has no other complaints at this time. Discussed follow-up and return precautions. Patient has plenty of albuterol for home she reports. Stable well-appearing at time of discharge. - Vital Signs Vital signs: Temp Pulse Resp BP Pulse Ox 98.9 F 28 H 147/84 H 96 07/31/19 01:01 07/31/19 01:01 07/31/19 01:01 07/31/19 01:01 - Laboratory Result Diagrams: 07/30/19 20:05 07/30/19 20:05 Laboratory results interpreted by me: 07/30/19 07/30/19 07/30/19 20:05 20:05 20:05 WBC 11.1 H RBC 3.66 L Hgb 10.0 L Hct 31.9 L MCHC 31.4 L RDW 15.2 H Absolute Neuts (auto) 8.5 H D-Dimer 0.74 H Sodium 135.6 L Glucose 217 H Alkaline Phosphatase 144 H Urine Ascorbic Acid 07/30/19 20:36 WBC RBC Hgb Hct MCHC RDW Absolute Neuts (auto) D-Dimer Sodium Glucose Alkaline Phosphatase Urine Ascorbic Acid 40 H - EKG Interpretation by Me Additional EKG results interpreted by me: EKG shows sinus tachycardia at a rate of 107, T wave flattening anteriorly and inferiorly but no T wave inversions or ST segment changes in consecutive leads. Normal axis. QTC of 449. Discharge - Discharge Clinical Impression: Shortness of breath, Tongue sore, Skin rash Condition: Stable Disposition: HOME, SELF-CARE Additional Instructions: Your work-up shows some dehydration but otherwise does not show any concerning findings today. Use the lidocaine if needed for your tongue sores, these appear to be aphthous ulcers, these should simply resolve with time. You have been treated for the yeast infection, keep the areas dry if possible to reduce this. Continue your albuterol inhaler with spacer and nebulizers if needed for wheezing/shortness of breath. Follow up with primary care. Return if you worsen including spiking fever, difficulty breathing, passing out, chest pain, vomiting, or any other concerning symptoms. Prescriptions: Lidocaine HCl [Xylocaine 2% Viscous Soln 15 ml Udcup] 15 ml PO TID PRN #1 [id number] PRN Reason: Referrals: ERIC MYERS MD [Primary Care Provider] - Follow up in 3-5 days
[2019-07-30 20:55] LABS: APPEARANCE,URINE SLIGHTLY-CLOUDY; BILIRUBIN,URINE NEGATIVE (NEGATIVE); COLOR,URINE YELLOW; GLUCOSE, URINE NEGATIVE (NEGATIVE); KETONES,URINE NEGATIVE (NEGATIVE); LEUKOCYTE ESTERASE,URINE NEGATIVE (NEGATIVE); NITRITE,URINE NEGATIVE (NEGATIVE); PROTEIN,URINE NEGATIVE (NEGATIVE); URINE SPECIFIC GRAVITY 1.021; UROBILINOGEN,URINE NEGATIVE mg/dL (<2.0)
[2019-07-30] MEDS ORDERED: LIDOCAINE 2% VISCOUS SOLN 15 ML UDCUP PO ONE (21:29)
--- NOTE | 2019-07-30 21:55 | RADIOLOGY REPORT (SQ) ---
EXAM DESCRIPTION: X-RAY CHEST- One View CLINICAL HISTORY: Shortness of breath COMPARISON: July 17, 2019 TECHNIQUE: Single view of the chest. FINDINGS: There are overlying EKG leads. There are no discrete air space infiltrates, pneumothoraces or pleural effusions. The pulmonary vascularity is normal. The cardiomediastinal silhouette is normal in size. Osseous structures are stable in appearance. IMPRESSION: There are no acute lung parenchymal findings.
[2019-07-30] MEDS ORDERED: LORAZEPAM INJ 2 MG/1 ML VIAL IV ONE (22:07)
--- NOTE | 2019-07-30 23:03 | RADIOLOGY REPORT (SQ) ---
EXAM DESCRIPTION: CT CHEST ANGIOGRAPHY WITHOUT THEN WITH IV CONTRAST COMPLETED DATE/TME: 07/30/2019 21:29 CLINICAL HISTORY: 34 years, Female, sob(4 months), tachycardia, elevated D-Dimer 0.74, hx asthma, diabetes COMPARISON: Prior study from 06/15/2019 TECHNIQUE: Contrast enhanced CT of the chest was acquired. Images were obtained after the uneventful administration of 75 mL of Omnipaque 350 intravenous contrast. MIPS were created. Images stored on PACS. All CT scanners at this facility use dose modulation, iterative reconstruction, and/or weight based dosing when appropriate to reduce radiation dose to as low as reasonably achievable (ALARA). [facility]: Dose Right [facility]: CareDose [facility]: Dose Right [facility]: Teradose 4D [facility]: [employer] Chitosan LIMITATIONS: None. FINDINGS: Central airways are patent. Lungs are clear. Mediastinal windows show a few mildly enlarged left supraclavicular, bilateral axillary, and mediastinal lymph nodes. At least one of the left axillary lymph nodes appears new from the previous examination dated 06/15/2019, specifically on image 22 of series 3 measuring 2.3 x 1.1 cm in size. Mediastinal and right axillary lymphadenopathy appear fairly similar, however. Heart shows no suspicious abnormality. The study is limited for the evaluation of pulmonary emboli secondary to contrast bolus timing and motion artifact. No obvious filling defects are identified to the lobar level. Limited evaluation of the upper abdomen reveals that the liver is diffusely low in attenuation relative to the spleen. No additional suspicious findings are evident within the imaged upper abdomen. Bone windows show no destructive osseous lesions. IMPRESSION: No evidence of pulmonary embolism to the lobar level. No other acute findings within the chest. Persistent left cervical radicular, bilateral axillary, and mediastinal lymph node enlargement. At least one of the left axillary lymph nodes appears new from the previous study dated 06/15/2019. These lymph nodes remain indeterminate. Suspect hepatic steatosis. TECHNICAL DOCUMENTATION: Quality ID # [id number]: Final reports with documentation of one or more dose reduction techniques (e.g., Automated exposure control, adjustment of the mA and/or kV according to patient size, use of iterative reconstruction technique) copyright 2011 [employer]- All Rights Reserved
[2019-07-31] MEDS ORDERED: FLUCONAZOLE 100 MG TABLET PO ONE (00:45)
[2019-07-31] MEDS ORDERED: LIDOCAINE 2% VISCOUS SOLN 15 ML UDCUP PO ONE (00:45)
[2019-07-31 01:41] VITALS: BP 147/84
--- NOTE | 2019-07-31 23:36 | EKG REPORT ---
SEVERITY:- BORDERLINE ECG - SINUS TACHYCARDIA BORDERLINE T WAVE ABNORMALITIES : Confirmed by: Luzmaria Lindsey 31-Jul-2019 23:35:13
== END 2019-07-31 01:42 | disposition home or self-care (01) ==
LOC: ER 19:16
DX: R06.02 Shortness of breath (principal); R10.9 Unspecified abdominal pain; R06.2 Wheezing; I10 Essential (primary) hypertension; E11.9 Type 2 diabetes mellitus without complications; E66.01 Morbid (severe) obesity due to excess calories; Z88.0 Allergy status to penicillin
CPT/HCPCS: 93005; 99285; 96361; 96374; 36415; 85025; 80053; 81001; 85379; 71045; 71275; 93010; J3490 ×2; J2060; J7030

== ENCOUNTER 2019-08-14 17:25 | Emergency (ER) | payer SELFPAY ==
[2019-08-14] MEDS ORDERED: IPRATROPIUM/ALBUTEROL 0.5-2.5 MG/3 ML AMPUL NEB ONE (21:42)
--- NOTE | 2019-08-14 23:59 | ER Document Report ---
ED General - General Chief Complaint: Asthma Exacerbation Stated Complaint: SHORTNESS OF BREATH Time Seen by Provider: 08/14/19 22:13 Primary Care Provider: ERIC MYERS MD [Primary Care Provider] - Follow up as needed Mode of Arrival: Ambulatory Information source: Patient TRAVEL OUTSIDE OF THE [place] IN LAST 30 DAYS: No - HPI Onset: Other - over the last several weeks Onset/Duration: Gradual Quality of pain: No pain Severity: Mild Pain Level: Denies Associated symptoms: Other - wheezing, shortness of breath, cough Exacerbated by: Other - exertion Relieved by: Denies Similar symptoms previously: Yes - patient has been seen in this ER for asthma/SOB many times Recently seen / treated by doctor: Yes - Patient seen in this ER on 07/30/19 Notes: 34 year old female with a history of Morbid Obesity, Asthma, FROYLAN Anxiety, Depression here for shortness of breath, mild wheezing, dry cough, concern of a blister on her right buttock, trouble sleeping, chronic abdominal pain (areas of firm fat deposits in lower abdomen). The patient denies fevers, chills, sweats, urinary symptoms, productive cough. The patient has been seen as an outpatient in the Pulmonary [facility] and she has been told she needs to be on inhaled steroid medications but she cannot afford them. The patient says she has been working with case management due to her financial issues with affording inhaled steroid medications. The patient is currently only using breathing treatment at home. - Related Data Allergies/Adverse Reactions: amoxicillin [Amoxicillin] Allergy (Verified 06/30/19 16:27) benzonatate [From Tessalon Perles] Allergy (Verified 06/30/19 16:27) fluticasone [From Advair Diskus] Allergy (Verified 06/30/19 16:27) iloperidone [From Fanapt] Allergy (Verified 06/30/19 16:27) Penicillins Allergy (Verified 06/30/19 16:27) salmeterol [From Advair Diskus] Allergy (Verified 06/30/19 16:27) Past Medical History - General Information source: Patient - Social History Smoking Status: Never Smoker Frequency of alcohol use: None Drug Abuse: None Family History: Reviewed & Not Pertinent, DM, Hypertension, Other - Brother with blood clots, mother with hysterectomy Patient has homicidal ideation: No - Past Medical History Cardiac Medical History: Reports: Hx Hypertension Pulmonary Medical History: Reports: Hx Asthma, Hx Bronchitis, Hx Pneumonia, Hx Sleep Apnea Endocrine Medical History: Reports: Hx Diabetes Mellitus Type 2 Renal/ Medical History: Reports: Hx Ovarian Cysts GI Medical History: Reports: Hx Gastroesophageal Reflux Disease, Hx Ulcer Psychiatric Medical History: Reports: Hx Anxiety, Hx Attention Deficit Hyperactivity Disorder, Hx Bipolar Disorder, Hx Depression Past Surgical History: Reports: Hx Adenoidectomy, Hx Gynecologic Surgery - R ovarian cyst 2010 Uterine fibroid removal 2010 in [place]., Hx Tonsillectomy - Immunizations Hx Diphtheria, Pertussis, Tetanus Vaccination: Yes - 06/2011 Review of Systems - Review of Systems Constitutional: No symptoms reported EENT: No symptoms reported Cardiovascular: No symptoms reported Respiratory: Cough, Short of breath, Wheezing Gastrointestinal: No symptoms reported Genitourinary: No symptoms reported Female Genitourinary: No symptoms reported Musculoskeletal: No symptoms reported Skin: Other - ulcer on right buttock Hematologic/Lymphatic: No symptoms reported Neurological/Psychological: No symptoms reported -: Yes All other systems reviewed and negative Physical Exam - Vital signs Vitals: Temp Pulse Resp BP Pulse Ox 97.6 F 101 H 24 H 133/66 H 96 08/14/19 17:30 08/14/19 17:30 08/14/19 17:30 08/14/19 17:30 08/14/19 17:30 - Notes Notes: GENERAL: Patient is oberse. Well-appearing, well-nourished and in no acute distress. HEAD: Atraumatic, normocephalic. EYES: Pupils equal round and reactive to light, extraocular movements intact, sclera anicteric, conjunctiva are normal. ENT: External ears normal, nares patent, oropharynx clear without exudates. Moist mucous membranes. NECK: Normal range of motion, supple without lymphadenopathy or JVD. LUNGS: Breath sounds clear to auscultation bilaterally and equal. No wheezes rales or rhonchi. HEART: Regular rate and rhythm without murmurs, rubs or gallops. ABDOMEN: Several firm mildly tender areas of fat deposits in panus which are chronic. No signs of soft tissue infection. Normoactive bowel sounds. No guarding, no rebound. No masses appreciated. EXTREMITIES: Normal range of motion, no pitting or edema. No clubbing or cyanosis. NEUROLOGICAL: Cranial nerves II through XII grossly intact. Normal speech, normal gait. PSYCH: Normal mood, normal affect. SKIN: Small ulceration on right buttock. about the size of a dime with no sign of a skin infection. Warm, Dry, normal turgor, no rashes or lesions noted. Course - Re-evaluation Re-evalutation: 08/15/19 00:48 The patient is here in the ER for chronic asthma, a blister on her right buttock and other various non emergent complaints. The patient was told she needs to follow up with her PCP, Pulmonary and Case Management to come up with an outpatien treatment plan since she cannot afford inhaled steroid medications. Patient DCed with scripts for duonebs and an albuterol MDI. - Vital Signs Vital signs: Temp Pulse Resp BP Pulse Ox 98.1 F 93 15 151/81 H 96 08/14/19 21:21 08/14/19 21:16 08/14/19 21:16 08/14/19 21:16 08/14/19 21:16 Discharge - Discharge Clinical Impression: Blister Asthma Qualifiers: Asthma severity: moderate Asthma persistence: unspecified Asthma complication type: with acute exacerbation Qualified Code(s): J45.901 - Unspecified asthma with (acute) exacerbation Abdominal pain Qualifiers: Abdominal location: lower abdomen, unspecified Qualified Code(s): R10.30 - Lower abdominal pain, unspecified Condition: Stable Disposition: HOME, SELF-CARE Instructions: Abdominal Pain ([facility]), Asthma ([facility]) Additional Instructions: Use Duonebs as needed for wheezing and shortness of breath. Also carry a rescue albuterol inhaler with you and use it as needed for wheezing and shortness of breath. Follow up with your primary care doctor, the Pulmonary Clinic, and with Case Management/Social Work to come up with a treatment option that financially works for you treatment [place]. Prescriptions: Ipratropium/Albuterol Sulfate [Duoneb 3 ml Ampul] 3 ml NEB Q4H PRN #1 [email or web address] PRN Reason: Albuterol Sulfate [Proair Respiclick] 90 mcg IH Q4H PRN #1 [email or web address] PRN Reason: Referrals: ERIC MYERS MD [Primary Care Provider] - Follow up as needed
[2019-08-15 01:01] VITALS: BP 151/99
== END 2019-08-15 01:13 | disposition home or self-care (01) ==
LOC: ER 17:25
DX: J45.901 Unspecified asthma with (acute) exacerbation (principal); R23.8 Other skin changes; R10.30 Lower abdominal pain, unspecified; R06.02 Shortness of breath; R05 Cough; E66.01 Morbid (severe) obesity due to excess calories; Z88.0 Allergy status to penicillin; I10 Essential (primary) hypertension; E11.9 Type 2 diabetes mellitus without complications
CPT/HCPCS: 94640; 99284; J7620

== ENCOUNTER 2019-09-09 12:28 | Emergency (ER) | payer OTHER ==
[2019-09-09 13:24] LABS: ABSOLUTE BASOPHILS # (AUTO) 0.1 10^3/uL (0.0-0.2); ABSOLUTE EOSINOPHILS # (AUTO) 0.1 10^3/uL (0.0-0.6); ABSOLUTE LYMPHOCYTES (AUTO) 1.9 10^3/uL (0.5-4.7); ABSOLUTE MONOCYTES (AUTO) 0.4 10^3/uL (0.1-1.4); ABSOLUTE NEUT (AUTO) 6.5 10^3/uL (1.7-8.2); BASOPHILS % (AUTO) 0.8 % (0-2); EOSINOPHILS % (AUTO) 1.6 % (0-6); HEMATOCRIT 36.7 % (36.0-47.0); HEMOGLOBIN 11.8 g/dL (12.0-15.5); LYMPHOCYTES % (AUTO) 21.2 % (13-45); MEAN CORPUSCULAR HGB CONC 32.2 g/dL (32.0-36.0); MEAN CORPUSCULAR VOLUME 87 fl (80-97); MONOCYTES % (AUTO) 4.6 % (3-13); PLATELET COUNT 388 10^3/uL (150-450); RED BLOOD COUNT 4.23 10^6/uL (3.72-5.28); RED CELL DISTRIBUTION WIDTH 15.4 % (11.5-14.0); SEGMENTED NEUTROPHILS % (AUTO) 71.8 % (42-78); TOTAL CELLS COUNTED % (AUTO) 100 %; WHITE BLOOD COUNT 9.1 10^3/uL (4.0-10.5)
[2019-09-09 13:43] LABS: ALBUMIN 4.4 g/dL (3.5-5.0); ALKALINE PHOSPHATASE 156 U/L (38-126); ANION GAP 7 (5-19); ASPARTATE AMINO TRANSFERASE 37 U/L (14-36); BILIRUBIN,TOTAL 0.7 mg/dL (0.2-1.3); BLOOD UREA NITROGEN 13 mg/dL (7-20); CARBON DIOXIDE 30 mmol/L (22-30); CHLORIDE 100 mmol/L (98-107); GLUCOSE 140 mg/dL (75-110); POTASSIUM 4.5 mmol/L (3.6-5.0); TOTAL PROTEIN 8.4 g/dL (6.3-8.2)
--- NOTE | 2019-09-09 13:56 | RADIOLOGY REPORT (SQ) ---
EXAM DESCRIPTION: CHEST SINGLE VIEW IMAGES COMPLETED DATE/TIME: 09/09/2019 1:47 pm REASON FOR STUDY: sob COMPARISON: 07/30/2019 EXAM PARAMETERS: NUMBER OF VIEWS: One view. TECHNIQUE: Single frontal radiographic view of the chest acquired. RADIATION DOSE: NA LIMITATIONS: None. FINDINGS: LUNGS AND PLEURA: No opacities, masses or pneumothorax. No pleural effusion. MEDIASTINUM AND HILAR STRUCTURES: No masses. Contour normal. HEART AND VASCULAR STRUCTURES: Heart normal in size. Normal vasculature. BONES: No acute findings. HARDWARE: None in the chest. OTHER: No other significant finding. IMPRESSION: NO ACUTE RADIOGRAPHIC FINDING IN THE CHEST. TECHNICAL DOCUMENTATION: JOB ID: [id number] 2010 [employer]- All Rights Reserved Reading location - IP/workstation name: [email or web address]
[2019-09-09 14:01] LABS: APPEARANCE,URINE CLEAR; BILIRUBIN,URINE NEGATIVE (NEGATIVE); COLOR,URINE YELLOW; GLUCOSE, URINE NEGATIVE (NEGATIVE); KETONES,URINE NEGATIVE (NEGATIVE); LEUKOCYTE ESTERASE,URINE NEGATIVE (NEGATIVE); NITRITE,URINE NEGATIVE (NEGATIVE); PROTEIN,URINE NEGATIVE (NEGATIVE); URINE SPECIFIC GRAVITY 1.012; UROBILINOGEN,URINE NEGATIVE mg/dL (<2.0)
--- NOTE | 2019-09-09 14:30 | ER Document Report ---
ED General - General Chief Complaint: Shortness Of Breath Stated Complaint: SHORTNESS OF BREATH Time Seen by Provider: 09/09/19 13:26 TRAVEL OUTSIDE OF THE [place] IN LAST 30 DAYS: No - HPI Notes: Patient is a 34-year-old female who presents to the emergency department for evaluation. She states she has been short of breath, primarily since May. She has had no fevers or chills. No nausea or vomiting. She is been seen by [facility], has not yet seen pulmonology. She is frequently told it is her asthma that makes her short of breath. She states that just walking a few steps makes her significantly short of breath. She denies any chest pain. No cough. No recent medication changes. She was tested for COVID last month and was found to be negative. She has no anosmia. The patient also states she has lesions on the side of her tongue that showed up about a week ago. They melisa t. She denies any bite trauma to the area. She also states she has lesions on her gluteal region. She cannot further characterize them to me and she cannot really see them. She states they hurt as well. - Related Data Allergies/Adverse Reactions: amoxicillin [Amoxicillin] Allergy (Verified 09/09/19 13:16) benzonatate [From Tessalon Perles] Allergy (Verified 09/09/19 13:16) fluticasone [From Advair Diskus] Allergy (Verified 09/09/19 13:16) iloperidone [From Fanapt] Allergy (Verified 09/09/19 13:16) Penicillins Allergy (Verified 09/09/19 13:16) salmeterol [From Advair Diskus] Allergy (Verified 09/09/19 13:16) Home Medications: Medication list reviewed with patient. Past Medical History - General Information source: Patient - Social History Smoking Status: Never Smoker Chew tobacco use (# tins/day): No Frequency of alcohol use: None Drug Abuse: None Family History: Reviewed & Not Pertinent, DM, Hypertension, Other - Brother with blood clots, mother with hysterectomy - Past Medical History Cardiac Medical History: Reports: Hx Hypertension Pulmonary Medical History: Reports: Hx Asthma, Hx Bronchitis, Hx Pneumonia, Hx Sleep Apnea Endocrine Medical History: Reports: Hx Diabetes Mellitus Type 2 Renal/ Medical History: Reports: Hx Ovarian Cysts GI Medical History: Reports: Hx Gastroesophageal Reflux Disease, Hx Ulcer Psychiatric Medical History: Reports: Hx Anxiety, Hx Attention Deficit Hyperactivity Disorder, Hx Bipolar Disorder, Hx Depression, Hx Post Traumatic Stress Disorder Past Surgical History: Reports: Hx Adenoidectomy, Hx Gynecologic Surgery - R ovarian cyst 2010 Uterine fibroid removal 2010 in [place]., Hx Tonsillectomy - Immunizations Hx Diphtheria, Pertussis, Tetanus Vaccination: Yes - 06/2011 Review of Systems - Review of Systems Cardiovascular: Other - Dyspnea on exertion Respiratory: See HPI Physical Exam - Vital signs Vitals: Temp Pulse Resp BP Pulse Ox 97.7 F 95 20 149/67 H 89 L 09/09/19 12:31 09/09/19 12:31 09/09/19 12:31 09/09/19 12:31 09/09/19 12:31 - Notes Notes: This is a morbidly obese 34-year-old female who is lying in the bed. She is in no apparent distress. Head is normocephalic and atraumatic, pupils are equal and round, reactive to light. Oral mucosa is moist. The patient has 3 ulcerated lesions to the lateral aspect of the tongue on the left. There is white borders around them. No other changes to the tongue, no other oral lesions noted. Heart is regular rate and rhythm, lungs are clear to auscultation bilaterally. Abdomen is obese, nontender, no active bowel sounds. Extremities show 2+ pitting edema without cyanosis or clubbing. No posterior calf tenderness. Peripheral pulses are equal. Examination of the skin of the buttocks yields a 1.5 cm round stage II ischial decubitus ulcer on the right buttock. Course - Re-evaluation Re-evalutation: 09/09/19 14:29 Patient presents to the emergency department for evaluation of dyspnea. Her initial pulse ox was listed at 89% on room air. I am sure this was after exertion, as sitting in the bed the patient's oxygenation is 97%. It seems clear at this point that the patient's problem is some restrictive lung disease secondary to her weight. She is not wheezing. She is moving good air. Chest x-ray is unremarkable, awaiting blood work. Will gather a rope machine setter and other help to evaluate the skin on the patient's buttocks. Otherwise, regarding her tongue lesions, the patient will be sent home with a prescription for Magic mouth wash. I told her she should see a dentist or primary care provider for further follow-up, as if these lesions continue, they may warrant biopsy. The patient voiced understanding. 09/09/19 16:18 I believe all of this patient's symptoms of dyspnea are secondary to her increased weight. She is not wheezing. She is moving good air. She is 97% when she is sitting there, she desaturates with some movement, but this is not surprising given her BMI. She clearly is not as ambulatory as is ideal, as she does have pressure ulcers overlying her right ischium. Appropriate wound care applied there per nursing. I will give the patient instructions for Magic mouthwash, but I do not see any indication for steroids or other asthmatic treatments. It seems clear that she has a restrictive lung disease secondary to her obesity. She needs to get physical therapy and radical treatment for her weight. Given her severe morbid obesity, this patient is at significant risk for sudden or multiple other comorbidities, and disability would be appropriate given the significant loss of functional status in this patient. She is currently uninsured, is applying for disability, this is in process. She states she is just waiting for a decision. She is to follow-up closely with her primary care provider, return to the ED with worsening. - Vital Signs Vital signs: Temp Pulse Resp BP Pulse Ox 98.0 F 95 26 H 171/118 H 94 09/09/19 13:17 09/09/19 12:31 09/09/19 15:02 09/09/19 15:02 09/09/19 15:02 - Laboratory Result Diagrams: 09/09/19 13:00 09/09/19 13:00 Laboratory results interpreted by me: 09/09/19 09/09/19 13:00 13:00 Hgb 11.8 L RDW 15.4 H Glucose 140 H AST 37 H ALT 43 H Alkaline Phosphatase 156 H Total Protein 8.4 H - Diagnostic Test Radiology reviewed: Image reviewed, Reports reviewed Radiology results interpreted by me: 09/09/19 16:26 Chest X-Ray 09/09/19 13:03 IMPRESSION: NO ACUTE RADIOGRAPHIC FINDING IN THE CHEST. Discharge - Discharge Clinical Impression: Morbid obesity, Dyspnea, Pressure ulcer of ischium, stage 2, Tongue ulcer Condition: Stable Disposition: HOME, SELF-CARE Instructions: Dyspnea, Nonspecific ([facility]), Ulcer ([facility]), Decubitus Ulcer ([facility]) Additional Instructions: Mix equal parts liquid Benadryl and Maalox, swish and spit this medication to help with tongue pain. Follow-up closely with a dentist if this persists, you may need referral on for biopsy. Please continue to seek out disability care, potentially physical therapy to help you with your dyspnea on exertion and difficulty ambulating. Wound care referral may be appropriate given your pressure ulcer on your buttock. Please discuss this with your primary care provider this week. Return to the emergency department with worsening or new concerning symptoms of any sort.
[2019-09-09 17:07] VITALS: BP 158/98
--- NOTE | 2019-09-10 14:31 | EKG REPORT ---
SEVERITY:- NORMAL ECG - SINUS RHYTHM : Confirmed by: Ramon Kimbrough MD 10-Sep-2019 14:30:47
== END 2019-09-09 17:20 | disposition home or self-care (01) ==
LOC: ER 12:28
DX: L89.312 Pressure ulcer of right buttock, stage 2 (principal); E66.01 Morbid (severe) obesity due to excess calories; Z68.44 Body mass index [BMI] 60.0-69.9, adult; K14.0 Glossitis; R06.02 Shortness of breath; R06.00 Dyspnea, unspecified; I10 Essential (primary) hypertension; E11.9 Type 2 diabetes mellitus without complications; Z88.0 Allergy status to penicillin
CPT/HCPCS: 36415; 71045; 80053; 81001; 85025; 93005; 93010; 99285

== ENCOUNTER → 2019-11-08 | Outpatient (CLI) | payer OTHER ==
[2019-11-08 13:20] LABS: ABSOLUTE RETICS # 0.091 10^6/uL (0.028-0.122); RETICULOCYTE COUNT (AUTO) 2.24 % (0.66-2.85)
[2019-11-08 13:35] LABS: BLOOD UREA NITROGEN 10 mg/dL (7-20); CALCIUM 9.4 mg/dL (8.4-10.2); GLUCOSE 135 mg/dL (75-110)
[2019-11-08 13:36] LABS: ALKALINE PHOSPHATASE 122 U/L (38-126); ANION GAP 8 (5-19); ASPARTATE AMINO TRANSFERASE 34 U/L (14-36); BILIRUBIN,DIRECT 0.3 mg/dL (0.0-0.4); BILIRUBIN,TOTAL 0.6 mg/dL (0.2-1.3); CARBON DIOXIDE 31 mmol/L (22-30); CHLORIDE 99 mmol/L (98-107); CHOLESTEROL 156.62 mg/dL (0-200); IRON(TIBC) 46.9 ug/dL (37-170); POTASSIUM 4.5 mmol/L (3.6-5.0); TOTAL PROTEIN 7.7 g/dL (6.3-8.2); TRIGLYCERIDES 106 mg/dL (<150)
[2019-11-08 13:47] LABS: DIRECT LDL 90 mg/dL (<100)
== END ==
LOC: CCC 12:25
PROVIDERS: ATTEND Internal Medicine
DX: E11.9 Type 2 diabetes mellitus without complications (principal); D64.9 Anemia, unspecified
CPT/HCPCS: 36415; 80053; 80061; 82607; 82728; 82746; 83036; 83540; 83550; 84443; 85045

== ENCOUNTER 2019-11-19 14:34 | Emergency (ER) | payer SELFPAY ==
--- NOTE | 2019-11-19 14:51 | ER Document Report ---
ED Medical Screen (RME) - General Chief Complaint: Shortness Of Breath Stated Complaint: SHORTNESS OF BREATH Time Seen by Provider: 11/19/19 14:48 [facility]: [facility]Primary [facility]] - Follow up as needed Mode of Arrival: Wheelchair Information source: Patient Notes: 34-year-old female presents to ED for very fatigued shortness of breath and vaginal bleeding. She states her menstrual cycle is very irregular sometimes it will come on as a peekaboo and sometimes it goes on and on and on. She states she has been bleeding for about 2-1/2 to 2-1/2 weeks with large blood clots. She states she has been very tired and weak she benefits from her asthma orifice from the bleeding. She is alert oriented respirations regular nonlabored at this time. O2 sats and vital signs are stable. Will order blood urine and type and screen. Also ordered chest x-ray. I have greeted and performed a rapid initial assessment of this patient. A comprehensive ED assessment and evaluation of the patient, analysis of test results and completion of medical decision making process will be conducted by an additional ED providers. TRAVEL OUTSIDE OF THE [place] IN LAST 30 DAYS: No - Related Data Allergies/Adverse Reactions: amoxicillin [Amoxicillin] Allergy (Verified 09/09/19 13:16) benzonatate [From Tessalon Perles] Allergy (Verified 09/09/19 13:16) fluticasone [From Advair Diskus] Allergy (Verified 09/09/19 13:16) iloperidone [From Fanapt] Allergy (Verified 09/09/19 13:16) Penicillins Allergy (Verified 09/09/19 13:16) salmeterol [From Advair Diskus] Allergy (Verified 09/09/19 13:16) Past Medical History - Social History Family history: None - Past Medical History Cardiac Medical History: Reports: Hx Hypertension Pulmonary Medical History: Reports: Hx Asthma, Hx Bronchitis, Hx Pneumonia, Hx Sleep Apnea Endocrine Medical History: Reports: Hx Diabetes Mellitus Type 2 Renal/ Medical History: Reports: Hx Ovarian Cysts GI Medical History: Reports: Hx Gastroesophageal Reflux Disease, Hx Ulcer Psychiatric Medical History: Reports: Hx Anxiety, Hx Attention Deficit Hyperactivity Disorder, Hx Bipolar Disorder, Hx Depression, Hx Post Traumatic Stress Disorder Past Surgical History: Reports: Hx Adenoidectomy, Hx Gynecologic Surgery - R ovarian cyst 2010 Uterine fibroid removal 2010 in [place]., Hx Tonsillectomy - Immunizations Hx Diphtheria, Pertussis, Tetanus Vaccination: Yes - 06/2011 Physical Exam - Vital signs Vitals: Temp Pulse Resp BP Pulse Ox 98.8 F 106 H 18 111/54 L 98 11/19/19 14:47 11/19/19 14:47 11/19/19 14:47 11/19/19 14:47 11/19/19 14:47 Course - Vital Signs Vital signs: Temp Pulse Resp BP Pulse Ox 98.7 F 92 20 152/70 H 97 11/19/19 19:18 11/19/19 19:18 11/19/19 19:18 11/19/19 19:18 11/19/19 19:18 - Laboratory Result Diagrams: 11/19/19 16:45 11/19/19 16:45 Laboratory results interpreted by me: 11/19/19 11/19/19 16:45 16:45 RBC 3.67 L Hgb 10.3 L Hct 32.3 L RDW 16.4 H Carbon Dioxide 31 H Glucose 141 H AST 43 H ALT 50 H Alkaline Phosphatase 142 H Doctor's Discharge - Discharge Clinical Impression: Menometrorrhagia, Dyspnea on exertion, Decubitus ulcer of ischium, stage 2 Condition: Stable Disposition: HOME, SELF-CARE Instructions: Dyspnea, Nonspecific ([facility]), Vaginal Bleeding ([facility]) Additional Instructions: Continue to follow-up with your primary care provider regarding your dyspnea. Follow-up with the lung lab, discuss physical therapy to help with increased mobility and potential weight loss. You should also follow-up with BLOCK OUT MACHINE OPERATOR regarding your abnormal vaginal bleeding. Continue to try to avoid pressure on your buttocks, which will worsen the sores present. Return to the emergency department with worsening or new concerning symptoms of any sort. Referrals: [facility] [Primary Care Provider] - Follow up as needed
[2019-11-19 17:13] LABS: ABSOLUTE EOSINOPHILS # (AUTO) 0.2 10^3/uL (0.0-0.6); ABSOLUTE MONOCYTES (AUTO) 0.5 10^3/uL (0.1-1.4); ABSOLUTE NEUT (AUTO) 7.5 10^3/uL (1.7-8.2); BASOPHILS % (AUTO) 0.4 % (0-2); EOSINOPHILS % (AUTO) 1.5 % (0-6); HEMATOCRIT 32.3 % (36.0-47.0); HEMOGLOBIN 10.3 g/dL (12.0-15.5); MEAN CORPUSCULAR HEMOGLOBIN 28.2 pg (27.0-33.4); MEAN CORPUSCULAR VOLUME 88 fl (80-97); MONOCYTES % (AUTO) 4.7 % (3-13); PLATELET COUNT 338 10^3/uL (150-450); RED BLOOD COUNT 3.67 10^6/uL (3.72-5.28); RED CELL DISTRIBUTION WIDTH 16.4 % (11.5-14.0); SEGMENTED NEUTROPHILS % (AUTO) 73.4 % (42-78); TOTAL CELLS COUNTED % (AUTO) 100 %; WHITE BLOOD COUNT 10.2 10^3/uL (4.0-10.5)
[2019-11-19 17:29] LABS: ALBUMIN 3.7 g/dL (3.5-5.0); ALKALINE PHOSPHATASE 142 U/L (38-126); ANION GAP 5 (5-19); ASPARTATE AMINO TRANSFERASE 43 U/L (14-36); BILIRUBIN,DIRECT 0.3 mg/dL (0.0-0.4); BILIRUBIN,TOTAL 0.5 mg/dL (0.2-1.3); BLOOD UREA NITROGEN 11 mg/dL (7-20); CALCIUM 9.4 mg/dL (8.4-10.2); CARBON DIOXIDE 31 mmol/L (22-30); CHLORIDE 101 mmol/L (98-107); GLUCOSE 141 mg/dL (75-110); POTASSIUM 4.4 mmol/L (3.6-5.0); TOTAL PROTEIN 7.1 g/dL (6.3-8.2)
--- NOTE | 2019-11-19 19:05 | RADIOLOGY REPORT (SQ) ---
EXAM DESCRIPTION: CHEST SINGLE VIEW IMAGES COMPLETED DATE/TIME: 11/19/2019 6:57 pm REASON FOR STUDY: dyspnea COMPARISON: 09/09/2019 EXAM PARAMETERS: NUMBER OF VIEWS: One view. TECHNIQUE: Single frontal radiographic view of the chest acquired. RADIATION DOSE: NA LIMITATIONS: None. FINDINGS: LUNGS AND PLEURA: No opacities, masses or pneumothorax. No pleural effusion. MEDIASTINUM AND HILAR STRUCTURES: No masses. Contour normal. HEART AND VASCULAR STRUCTURES: Heart normal in size. Normal vasculature. BONES: No acute findings. HARDWARE: None in the chest. OTHER: No other significant finding. IMPRESSION: NO ACUTE RADIOGRAPHIC FINDING IN THE CHEST. TECHNICAL DOCUMENTATION: JOB ID: [id number] 2010 [employer]- All Rights Reserved Reading location - IP/workstation name: [email or web address]
[2019-11-19 19:19] VITALS: BP 152/70
--- NOTE | 2019-11-19 19:46 | ER Document Report ---
ED General - General Chief Complaint: Vaginal Bleeding Stated Complaint: SHORTNESS OF BREATH Time Seen by Provider: 11/19/19 14:48 Primary Care Provider: [facility] [Primary Care Provider] - Follow up as needed Mode of Arrival: Wheelchair TRAVEL OUTSIDE OF THE [place] IN LAST 30 DAYS: No - HPI Notes: Patient is a 34-year-old morbidly obese female who presents to the emergency department for evaluation of dyspnea on exertion and abnormal vaginal bleeding. Neither of these problems is new. The patient has had irregular menstruation for quite some time. She states that she has had vaginal bleeding over the last 2 weeks. She has had "lots of clots" and cramping associated. She states her last menstruation was in July or August. Patient also states she has shortness of breath with exertion. This is been ongoing for some time. She has been referred to the "lung lab" for evaluation. She also is concerned that she has sores on her buttocks that have not yet healed. She is concerned that they could be causing her to be more short of breath. No fevers or chills. No nausea or vomiting. She states that she was trying to lose weight, but as a result of the COVID-19 pandemic and social distancing, she has in fact gained weight. - Related Data Allergies/Adverse Reactions: amoxicillin [Amoxicillin] Allergy (Verified 09/09/19 13:16) benzonatate [From Tessalon Perles] Allergy (Verified 09/09/19 13:16) fluticasone [From Advair Diskus] Allergy (Verified 09/09/19 13:16) iloperidone [From Fanapt] Allergy (Verified 09/09/19 13:16) Penicillins Allergy (Verified 09/09/19 13:16) salmeterol [From Advair Diskus] Allergy (Verified 09/09/19 13:16) Past Medical History - General Information source: Patient - Social History Smoking Status: Never Smoker Frequency of alcohol use: None Drug Abuse: None Family History: Reviewed & Not Pertinent, DM, Hypertension, Other - Brother with blood clots, mother with hysterectomy - Past Medical History Cardiac Medical History: Reports: Hx Hypertension Pulmonary Medical History: Reports: Hx Asthma, Hx Bronchitis, Hx Pneumonia, Hx Sleep Apnea Endocrine Medical History: Reports: Hx Diabetes Mellitus Type 2 Renal/ Medical History: Reports: Hx Ovarian Cysts GI Medical History: Reports: Hx Gastroesophageal Reflux Disease, Hx Ulcer Psychiatric Medical History: Reports: Hx Anxiety, Hx Attention Deficit Hyperactivity Disorder, Hx Bipolar Disorder, Hx Depression, Hx Post Traumatic Stress Disorder Past Surgical History: Reports: Hx Adenoidectomy, Hx Gynecologic Surgery - R ovarian cyst 2010 Uterine fibroid removal 2010 in [place]., Hx Tonsillectomy - Immunizations Hx Diphtheria, Pertussis, Tetanus Vaccination: Yes - 06/2011 Review of Systems - Review of Systems Constitutional: See HPI EENT: No symptoms reported Cardiovascular: No symptoms reported Respiratory: See HPI Gastrointestinal: No symptoms reported Genitourinary: No symptoms reported Female Genitourinary: See HPI Musculoskeletal: No symptoms reported Skin: No symptoms reported Neurological/Psychological: No symptoms reported Physical Exam - Vital signs Vitals: Temp Pulse Resp BP Pulse Ox 98.8 F 106 H 18 111/54 L 98 11/19/19 14:47 11/19/19 14:47 11/19/19 14:47 11/19/19 14:47 11/19/19 14:47 - Notes Notes: This is a very pleasant 34-year-old female who appears her stated age, no acute distress. Vital signs reviewed, please refer to chart. Head is normocephalic, atraumatic. Pupils equal round, reactive to light. Neck is supple without meningismus. Heart sounds are distant but regular. Lungs are clear to auscultation bilaterally. Abdomen is obese,, nontender, normoactive bowel sounds throughout. Extremities without cyanosis, clubbing. Posterior calves are nontender. Peripheral pulses are equal. Skin is warm and dry. She has two 5 mm wounds noted over the ischial tuberosities bilaterally, consistent with pressure ulcers. No surrounding erythema or induration noted. Patient is awake, alert, neurological exam is nonfocal. Course - Re-evaluation Re-evalutation: 11/19/19 19:50 Patient presents to the emergency department for evaluation of vaginal bleeding and dyspnea on exertion. Neither of these issues are new. Her vital signs are reviewed, she is oxygenating well, she is not tachypneic. Her lungs are clear. Her chest x-ray is unremarkable. Her hemoglobin is mildly low, but no lower than it has been in the past. I suspect that the majority of this patient's symptoms are secondary to her obesity and the excess adipose tissue. It is likely causing her to be more short of breath with exertion, as well as a hypoestrogenic state leading to menometrorrhagia. This was reported to the patient. I also explained to her that this was the likely etiology of the pressure ulcers overlying her ischio. We talked about increasing physical activity. I encouraged her to discuss possible physical therapy for weight loss with her primary care provider, considering the significant comorbidities that have resulted from her weight. She voiced understanding. She is urged to continue wound care on her buttocks. She is urged to try to lose weight. She is to follow-up with primary care as well as [employer] COMMUNICATION[employer] ENGINE[employer]. She is to return to the ED with worsening or new concerning symptoms of any sort. - Vital Signs Vital signs: Temp Pulse Resp BP Pulse Ox 98.7 F 92 20 152/70 H 97 11/19/19 19:18 11/19/19 19:18 11/19/19 19:18 11/19/19 19:18 11/19/19 19:18 - Laboratory Result Diagrams: 11/19/19 16:45 11/19/19 16:45 Laboratory results interpreted by me: 11/19/19 11/19/19 16:45 16:45 RBC 3.67 L Hgb 10.3 L Hct 32.3 L RDW 16.4 H Carbon Dioxide 31 H Glucose 141 H AST 43 H ALT 50 H Alkaline Phosphatase 142 H - EKG Interpretation by Me Additional EKG results interpreted by me: 11/19/19 19:51 Sinus mechanism with a rate of 92 bpm. Normal axis and intervals. No acute ST changes concerning for ischemia or infarction. Discharge - Discharge Clinical Impression: Menometrorrhagia, Dyspnea on exertion Decubitus ulcer of ischium, stage 2 Qualifiers: Laterality: unspecified laterality Qualified Code(s): L89.302 - Pressure ulcer of unspecified buttock, stage 2 Condition: Stable Disposition: HOME, SELF-CARE Instructions: Dyspnea, Nonspecific ([facility]), Vaginal Bleeding ([facility]) Additional Instructions: Continue to follow-up with your primary care provider regarding your dyspnea. F ollow-up with the lung lab, discuss physical therapy to help with increased mobility and potential weight loss. You should also follow-up with WIRELESS COMMUNICATIONS ENGINEER regarding your abnormal vaginal bleeding. Continue to try to avoid pressure on your buttocks, which will worsen the sores present. Return to the emergency department with worsening or new concerning symptoms of any sort. Referrals: [facility] [Primary Care Provider] - Follow up as needed
[2019-11-19] MEDS ORDERED: OXYCODONE-ACETAMINOPHEN 5-325 MG TABLET PO ONE (20:14)
--- NOTE | 2019-11-20 01:40 | EKG REPORT ---
SEVERITY:- NORMAL ECG - SINUS RHYTHM : Confirmed by: Aleah Arndt MD 20-Nov-2019 01:39:52
== END 2019-11-19 20:22 | disposition home or self-care (01) ==
LOC: ER 14:34
DX: N92.1 Excessive and frequent menstruation with irregular cycle (principal); L89.302 Pressure ulcer of unspecified buttock, stage 2; R06.00 Dyspnea, unspecified; R06.02 Shortness of breath; E66.01 Morbid (severe) obesity due to excess calories
CPT/HCPCS: 36415; 71045; 80053; 84702; 85025; 86850; 86900; 86901; 93005; 93010; 99285

== ENCOUNTER 2019-12-11 00:52 | Inpatient (IN) | payer OTHER ==
[2019-12-11] MEDS: MAGNESIUM SULFATE/D5W 1 GM/100 ML RTUPB IV SCH ×2 (01:42→02:43)
--- NOTE | 2019-12-11 01:44 | ER Document Report ---
ED General - General Chief Complaint: Shortness Of Breath Stated Complaint: BREATHING Time Seen by Provider: 12/11/19 01:03 Primary Care Provider: [facility] [Primary Care Provider] - Follow up as needed TRAVEL OUTSIDE OF THE [place] IN LAST 30 DAYS: No - HPI Notes: Patient is a 34-year-old female with a history of asthma, obstructive sleep apnea, acid reflux, who presents to the emergency department for evaluation of increased shortness of breath. The patient states she fell asleep in her normal position, with many pillows. She woke up extremely short of breath. She did not have her CPAP in place, but she states that is not abnormal. She checked her pulse ox and found it to be 77% on room air. She used her albuterol MDI, her steroid inhaler. She felt slightly better, and waited for EMS. The patient admits she is been coughing, nonproductive, with increased shortness of breath over the last 48 hours. No fevers or chills. No nausea or vomiting. Normal urination, normal bowel movements. She states that on occasion her legs feel heavy. She denies any difficulty speaking, seeing, swallowing. She is moving her arms without difficulty. She has numbness in her left hand that has been attributed to carpal tunnel. No other numbness. - Related Data Allergies/Adverse Reactions: amoxicillin [Amoxicillin] Allergy (Verified 09/09/19 13:16) benzonatate [From Tessalon Perles] Allergy (Verified 09/09/19 13:16) fluticasone [From Advair Diskus] Allergy (Verified 09/09/19 13:16) iloperidone [From Fanapt] Allergy (Verified 09/09/19 13:16) Penicillins Allergy (Verified 09/09/19 13:16) salmeterol [From Advair Diskus] Allergy (Verified 09/09/19 13:16) Home Medications: Oxycodone, Amytriptyline, Hydroxyzine, Symbicort, Omeprazole, Proair Past Medical History - General Information source: Patient - Social History Smoking Status: Never Smoker Family History: Reviewed & Not Pertinent, DM, Hypertension, Other - Brother with blood clots, mother with hysterectomy Patient has homicidal ideation: No - Past Medical History Cardiac Medical History: Reports: Hx Hypertension Pulmonary Medical History: Reports: Hx Asthma, Hx Bronchitis, Hx Pneumonia, Hx Sleep Apnea Endocrine Medical History: Reports: Hx Diabetes Mellitus Type 2 Renal/ Medical History: Reports: Hx Ovarian Cysts GI Medical History: Reports: Hx Gastroesophageal Reflux Disease, Hx Ulcer Psychiatric Medical History: Reports: Hx Anxiety, Hx Attention Deficit Hyperactivity Disorder, Hx Bipolar Disorder, Hx Depression, Hx Post Traumatic Stress Disorder Past Surgical History: Reports: Hx Adenoidectomy, Hx Gynecologic Surgery - R ovarian cyst 2010 Uterine fibroid removal 2010 in [place]., Hx Tonsillectomy - Immunizations Hx Diphtheria, Pertussis, Tetanus Vaccination: Yes - 06/2011 Review of Systems - Review of Systems Constitutional: No symptoms reported EENT: No symptoms reported Cardiovascular: No symptoms reported Respiratory: See HPI Gastrointestinal: No symptoms reported Genitourinary: No symptoms reported Musculoskeletal: See HPI Skin: No symptoms reported Neurological/Psychological: See HPI -: Yes All other systems reviewed and negative Physical Exam - Vital signs Vitals: Temp Pulse Resp BP Pulse Ox 98.6 F 99 26 H 137/91 H 98 12/11/19 01:00 12/11/19 01:00 12/11/19 01:00 12/11/19 01:00 12/11/19 01:00 - Notes Notes: This is a morbidly obese patient who appears her stated age, in a mild amount of distress. She is mildly tachypneic, is oxygenating well on 3 L per nasal cannul a. Vital signs reviewed, please refer to chart. Head is normocephalic, atraumatic. Pupils equal round, reactive to light. Neck is supple without meningismus. Heart sounds are distant. Lungs reveal diminished breath sounds with end inspiratory wheezes noted, particularly at the bases.. Abdomen is nontender, normoactive bowel sounds throughout. Extremities without cyanosis, clubbing. Posterior calves are nontender. Peripheral pulses are equal. Skin is warm and dry. Patient is awake, alert, neurological exam is nonfocal. Course - Re-evaluation Re-evalutation: 12/11/19 01:43 Patient presents the emergency department for evaluation with increased shortness of breath. She had been treated with 5 mg of albuterol, 1 mg of Atrovent, 125 mg of Solu-Medrol in route by EMS. I will order CBC, CMP, VBG, chest x-ray. Patient will be given a 2 g magnesium rider. The patient has had a cough, but she denies any fevers, anosmia, difficulty with sense of taste, diarrhea, or known exposures to COVID-19 patients. I am not inclined to do Covid testing at this time. She is currently stable, we will continue to monitor. 12/11/19 03:51 During the course of the patient stay, patient continued to require oxygen. She was taken off of oxygen went down to 87 to 88%. This is without ambulation, without being in a supine position. I believe this is all an asthma exacerbation. She will be given another DuoNeb. I spoke with Dr. Bailey, he will admit the patient for further care. - Vital Signs Vital signs: Temp Pulse Resp BP Pulse Ox 98.6 F 99 26 H 137/91 H 88 L 12/11/19 01:00 12/11/19 01:00 12/11/19 01:00 12/11/19 01:00 12/11/19 03:35 - Laboratory Result Diagrams: 12/11/19 01:40 12/11/19 01:40 Laboratory results interpreted by me: 12/11/19 12/11/19 01:40 01:40 RBC 3.45 L Hgb 9.8 L Hct 30.3 L RDW 16.2 H Seg Neutrophils % 79.7 H Glucose 226 H - Diagnostic Test Radiology reviewed: Reports reviewed Radiology results interpreted by me: 12/11/19 03:52 Chest X-Ray 12/11/19 01:31 IMPRESSION: No acute cardiopulmonary process copyright 2011 [employer]- All Rights Reserved Discharge - Discharge Clinical Impression: Morbid obesity Acute asthma exacerbation Qualifiers: Asthma severity: moderate Asthma persistence: persistent Qualified Code(s): J45.41 - Moderate persistent asthma with (acute) exacerbation Condition: Stable Disposition: ADMITTED INPATIENT Admitting Provider: Leo (Hospitalist) Unit Admitted: Medical Floor [facility]: [facility] [[facility]] - Follow up as needed
[2019-12-11 01:57] LABS: VENOUS BLOOD HCO3 28.9 mmol/L (20-32); VENOUS BLOOD PCO2 56.7 mmHg (35-63); VENOUS BLOOD PH 7.33 (7.30-7.42)
[2019-12-11 02:02] LABS: ABSOLUTE EOSINOPHILS # (AUTO) 0.1 10^3/uL (0.0-0.6); ABSOLUTE LYMPHOCYTES (AUTO) 1.3 10^3/uL (0.5-4.7); ABSOLUTE MONOCYTES (AUTO) 0.4 10^3/uL (0.1-1.4); ABSOLUTE NEUT (AUTO) 7.3 10^3/uL (1.7-8.2); BASOPHILS % (AUTO) 0.3 % (0-2); EOSINOPHILS % (AUTO) 1.5 % (0-6); HEMATOCRIT 30.3 % (36.0-47.0); HEMOGLOBIN 9.8 g/dL (12.0-15.5); LYMPHOCYTES % (AUTO) 14.5 % (13-45); MEAN CORPUSCULAR HEMOGLOBIN 28.4 pg (27.0-33.4); MEAN CORPUSCULAR HGB CONC 32.3 g/dL (32.0-36.0); MEAN CORPUSCULAR VOLUME 88 fl (80-97); PLATELET COUNT 311 10^3/uL (150-450); RED BLOOD COUNT 3.45 10^6/uL (3.72-5.28); RED CELL DISTRIBUTION WIDTH 16.2 % (11.5-14.0); SEGMENTED NEUTROPHILS % (AUTO) 79.7 % (42-78); TOTAL CELLS COUNTED % (AUTO) 100 %; WHITE BLOOD COUNT 9.2 10^3/uL (4.0-10.5)
[2019-12-11 02:16] LABS: ALBUMIN 3.6 g/dL (3.5-5.0); ALKALINE PHOSPHATASE 120 U/L (38-126); ANION GAP 11 (5-19); ASPARTATE AMINO TRANSFERASE 33 U/L (14-36); BILIRUBIN,DIRECT 0.3 mg/dL (0.0-0.4); BILIRUBIN,TOTAL 0.5 mg/dL (0.2-1.3); BLOOD UREA NITROGEN 9 mg/dL (7-20); CALCIUM 9.2 mg/dL (8.4-10.2); CARBON DIOXIDE 27 mmol/L (22-30); CHLORIDE 100 mmol/L (98-107); GLUCOSE 226 mg/dL (75-110); POTASSIUM 4.2 mmol/L (3.6-5.0)
[2019-12-11] MEDS ORDERED: ONDANSETRON HCL INJ/PF 4 MG/2 ML SDV IV ONE (02:35)
--- NOTE | 2019-12-11 02:50 | RADIOLOGY REPORT (SQ) ---
EXAM DESCRIPTION: XR CHEST 1 VIEW COMPLETED DATE/TME: 12/11/2019 01:31 CLINICAL HISTORY: 34 years, Female, dyspnea COMPARISON: 11/19/2019 chest NUMBER OF VIEWS: 1 TECHNIQUE: Portable chest LIMITATIONS: None. FINDINGS: Heart size is normal. Minimal scarring in the right perihilar region. Lungs are otherwise clear. No pneumothorax IMPRESSION: No acute cardiopulmonary process copyright 2010 [employer]- All Rights Reserved
[2019-12-11] MEDS ORDERED: IPRATROPIUM/ALBUTEROL 0.5-2.5 MG/3 ML AMPUL NEB ONE (03:50)
[2019-12-11] MEDS ORDERED: LEVALBUTEROL HCL NEB 0.63 MG/3 ML AMPUL NEB PRN (05:04)
[2019-12-11] MEDS ORDERED: MAGNESIUM HYDROXIDE SUSP 30 ML UDCUP PO PRN (05:04)
[2019-12-11] MEDS ORDERED: MAG HYDROX/AL HYDROX/SIMETH SUSP 30 ML UDCUP PO PRN (05:04)
[2019-12-11] MEDS ORDERED: DEXTROSE 50%-WATER 25 GM/50 ML DISP.SYRIN IV PRN ×2 (05:12)
[2019-12-11] MEDS ORDERED: DEXTROSE 40% GEL 15 GM TUBE PO PRN ×2 (05:12)
[2019-12-11] MEDS ORDERED: GLUCAGON,HUMAN RECOMB 1 MG INJ IM PRN (05:12)
[2019-12-11] MEDS ORDERED: MORPHINE SULFATE 10 MG/ML INJ IV PRN ×4 (05:12→05:32)
[2019-12-11] MEDS ORDERED: GUAIFENESIN SYRP 200 MG/10 ML UDC PO PRN (05:12)
[2019-12-11] MEDS ORDERED: LORAZEPAM INJ 2 MG/1 ML VIAL IV PRN (05:12)
[2019-12-11] MEDS ORDERED: ACETAMINOPHEN 325 MG TABLET PO PRN (05:12)
[2019-12-11] MEDS: HEPARIN SOD (PORCINE) 5,000 UNIT/ML 1 ML VIAL SUBCUT SCH ×3 (05:51→21:57)
[2019-12-11] MEDS: METHYLPREDNISOLONE INJ 40 MG/1 ML SDV IV SCH ×3 (05:51→17:25)
[2019-12-11] MEDS: PANTOPRAZOLE SODIUM 40 MG TABLET.DR PO SCH ×2 (05:52→17:25)
--- NOTE | 2019-12-11 06:33 | PDOC H&P ---
History of Present Illness Admission Date/PCP: 12/11/19 04:06 [facility] Patient complains of: Dyspnea History of Present Illness: SARAHI ST is a 34 year old female who presented the emergency room via EMS with acute dyspnea. She awoke suddenly from sleep, not having placed her CPAP mask on her face prior to falling asleep, with extreme dyspnea accompanied by wheezing. She used her home inhalers (both albuterol and an inhaled steroid) with some improvement. She admits an associated nonproductive cough with mildly increased dyspnea over the last 2 days. She denies other associated or accompanying signs and symptoms. She admits prior similar episodes. Has not i dentified any aggravating or ameliorating factors for her acute dyspnea. Upon EMS arrival she was found to have an O2 sat in the 70s on room air which improved with supplemental oxygen. In the emergency room she was given several nebulizer treatments, IV Solu-Medrol and IV magnesium. She showed modest improvement with treatment however she still required supplemental oxygen. She was admitted to the hospital for further evaluation and treatment. Past Medical History Cardiac Medical History: Reports: Hypertension Denies: Atrial Fibrillation, Coronary Artery Disease, DVT, Pulmonary Embolism Pulmonary Medical History: Reports: Asthma, Bronchitis, Pneumonia, Sleep Apnea EENT Medical History: Denies: Cataracts, Ears - Hearing aids Neurological Medical History: Denies: Multiple Sclerosis, Seizures Endocrine Medical History: Reports: Diabetes Mellitus Type 2, Obesity Denies: Hyperthyroidism, Hypothyroidism Renal/ Medical History: Denies: Chronic Kidney Disease, Nephrolithiasis Malignancy Medical History: Reports: None GI Medical History: Reports: Gastroesophageal Reflux Disease Denies: Cirrhosis, Hepatitis, Peptic Ulcer Disease Musculoskeltal Medical History: Denies: Arthritis, Fibromyalgia Skin Medical History: Denies: Eczema, Psoriasis Psychiatric Medical History: Reports: Attention Deficit Hyperactivity Disorder, Bipolar Disorder, Depression, Post Traumatic Stress Disorder Denies: Alcohol Dependency, Substance Abuse, Tobacco Dependency Traumatic Medical History: Reports: None Hematology: Reports: Anemia Denies: Bleeding Tendencies Infectious Medical History: Reports: None Past Surgical History Past Surgical History: Reports: Adenoidectomy, Tonsillectomy Social History Information Source: Patient Lives with: Parents Smoking Status: Former Smoker Electronic Cigarette use?: No Frequency of Alcohol Use: None Hx Recreational Drug Use: No Drugs: None Hx Prescription Drug Abuse: No - Advance Directive Resuscitation Status: Full Code Surrogate healthcare decision maker:: Melissa St Family History Family History: DM, Hypertension, Other - Brother with venous thrombosis Parental Family History Reviewed: Yes Children Family History Reviewed: No Sibling(s) Family History Reviewed.: Yes Medication/Allergy Home Medications: Fluticasone Propionate [Flonase Nasal [place] 50 Mcg/[place] 16 gm] 2 sprays NASL Q12 PRN 01/07/17 Albuterol Sulfate [Proair HFA] 2 puff IH Q4 PRN 06/03/17 Hydroxyzine HCl 50 mg PO Q8HP PRN #10 tablet 06/03/17 Oxycodone HCl/Acetaminophen [Oxycodone-Acetaminophen 10-325] 1 tab PO Q6HP PRN 06/03/17 Omeprazole Magnesium [Prilosec Otc] 20 mg PO BID #40 tablet. 06/29/17 Benztropine Mesylate [Benztropine Mesylate 0.5 mg Tablet] 0.5 mg PO Q12 05/15/18 Budesonide/Formoterol Fumarate [Symbicort HFA 80-4.5 mcg Inhaler 6.9 gm] 2 puff IH Q12 05/15/18 Ferrous Sulfate [Iron] 325 mg PO DAILY 05/15/18 Gabapentin [Neurontin 300 mg Capsule] 600 mg PO Q8 05/15/18 Metformin HCl [Metformin HCl ER] 500 mg PO DAILY 05/15/18 Prazosin HCl [Minipress] 1 mg PO QHS 05/15/18 Sucralfate [Carafate 1 gm Tablet] 1 gm PO ACHS PRN 05/15/18 Venlafaxine HCl [Venlafaxine HCl ER] 37.5 mg PO DAILY 05/15/18 Medroxyprogesterone Acet [Provera 10 mg Tablet] 10 mg PO TID #4 tablet 05/25/18 Medroxyprogesterone Acetate [Provera] 10 mg PO TID #4 tablet 05/25/18 Hydroxyzine Pamoate [Vistaril 50 mg Capsule] 50 mg PO TID #90 capsule 10/09/18 Ipratropium/Albuterol Sulfate [Duoneb 3 ml Ampul] 3 ml NEB RTQ4 #30 vial.neb 10/09/18 Metronidazole [Flagyl] 500 mg PO BID #14 tablet 12/06/18 Ondansetron [Zofran Odt 4 mg Tablet] 1 - 2 tab PO Q4H PRN #15 tab.rapdis 12/06/18 Doxycycline Hyclate 100 mg PO BID #20 tablet. 03/27/19 Albuterol Sulfate [Proair HFA Inhalation Aerosol 8.5 gm MDI] 2 puff IH Q4H PRN #1 mdi 04/01/19 Prednisone [Deltasone 20 mg Tablet] 1 tab PO BID 5 Days #10 tablet 04/01/19 Furosemide [Lasix 20 mg Tablet] 20 mg PO QAM #5 tablet 05/10/19 Albuterol Sulfate [Ventolin 0.083% Neb 2.5 mg/3 mL Ampul] 1 vial NEB Q4 PRN #50 vial 06/24/19 Prednisone [Deltasone 10 mg Tablet] 10 mg PO ASDIR PRN #21 tablet 06/24/19 Ipratropium/Albuterol Sulfate [Duoneb 3 ml Ampul] 3 ml NEB RTQ4 PRN #1 pkg 06/30/19 Albuterol Sulfate [Proair Hfa Inhalation Aerosol 8.5 gm Mdi] 2 puff IH Q4 PRN #1 mdi 07/17/19 Inhaler,Assist Device,Accesory [Optichamber] 1 each MC Q4 PRN #1 each 07/17/19 Lidocaine HCl [Xylocaine 2% Viscous Soln 15 ml Udcup] 15 ml PO TID PRN #1 udc 07/31/19 Albuterol Sulfate [Proair Respiclick] 90 mcg IH Q4H PRN #1 aer.pow.ba 08/15/19 Ipratropium/Albuterol Sulfate [Duoneb 3 ml Ampul] 3 ml NEB Q4H PRN #1 vial.neb 08/15/19 Allergies/Adverse Reactions: amoxicillin [Amoxicillin] Allergy (Verified 09/09/19 13:16) benzonatate [From Tessalon Perles] Allergy (Verified 09/09/19 13:16) fluticasone [From Advair Diskus] Allergy (Verified 09/09/19 13:16) iloperidone [From Fanapt] Allergy (Verified 09/09/19 13:16) Penicillins Allergy (Verified 09/09/19 13:16) salmeterol [From Advair Diskus] Allergy (Verified 09/09/19 13:16) Review of Systems Constitutional: PRESENT: weight gain - She has gained 80 pounds in the last 8 months. ABSENT: chills, fever(s) Eyes: ABSENT: visual disturbances, other - Eye pain Ears: ABSENT: hearing changes, other - Ear pain Nose, Mouth, and Throat: ABSENT: headache(s), sore throat Cardiovascular: ABSENT: chest pain, palpitations Respiratory: PRESENT: as per HPI, cough, dyspnea, other - Wheezing Gastrointestinal: ABSENT: abdominal pain, constipation, diarrhea, nausea, vomiting Genitourinary: ABSENT: dysuria, hematuria Musculoskeletal: ABSENT: back pain, joint swelling Integumentary: ABSENT: pruritus, rash Neurological: ABSENT: confusion, convulsions, focal weakness, memory loss, syncope Psychiatric: ABSENT: anxiety, depression Endocrine: ABSENT: cold intolerance, heat intolerance Hematologic/Lymphatic: ABSENT: easy bleeding, easy bruising Allergic/Immunologic: ABSENT: seasonal rhinorrhea Physical Exam Vital Signs: Temp Pulse Resp BP Pulse Ox 98.6 F 99 20 167/86 H 95 12/11/19 01:00 12/11/19 01:00 12/11/19 03:28 12/11/19 03:28 12/11/19 03:39 Intake & Output 12/09/19 12/10/19 12/11/19 23:59 23:59 23:59 Intake Total 200 Balance 200 Weight 188.3 kg General appearance: PRESENT: cooperative, mild distress - Secondary to dyspnea and wheezing, morbidly obese Head exam: PRESENT: atraumatic, normocephalic Eye exam: PRESENT: conjunctiva pink. ABSENT: conjunctival injection, scleral icterus Ear exam: PRESENT: normal external ear exam. ABSENT: bleeding, drainage Mouth exam: PRESENT: dry mucosa, neck supple Neck exam: ABSENT: thyromegaly, tracheal deviation Respiratory exam: PRESENT: prolonged expiratory phas - Minimally prolonged expiratory phase noted throughout all ontiveros, symmetrical, wheezes - Expiratory wheezes noted throughout all ontiveros Cardiovascular exam: PRESENT: RRR. ABSENT: clicks, gallop, rubs Pulses: PRESENT: normal radial pulses, normal dorsalis pedis pul Vascular exam: PRESENT: normal capillary refill GI/Abdominal exam: PRESENT: normal bowel sounds, soft. ABSENT: tenderness Rectal exam: PRESENT: deferred Extremities exam: PRESENT: joint swelling, pedal edema Musculoskeletal exam: ABSENT: deformity, dislocation Neurological exam: PRESENT: alert, oriented to person, oriented to place, oriented to time, oriented to situation, CN II-XII grossly intact. ABSENT: motor sensory deficit Psychiatric exam: PRESENT: appropriate affect, normal mood Skin exam: PRESENT: dry, intact, warm. ABSENT: jaundice, rash, urticaria Results Laboratory Results: 12/11/19 01:40 12/11/19 01:40 12/11/19 12/11/19 12/11/19 01:40 01:40 01:40 WBC 9.2 RBC 3.45 L Hgb 9.8 L Hct 30.3 L MCV 88 MCH 28.4 MCHC 32.3 RDW 16.2 H Plt Count 311 Seg Neutrophils % 79.7 H VBG pH 7.33 VBG pCO2 56.7 VBG HCO3 28.9 VBG Base Excess 2.0 Sodium 137.8 Potassium 4.2 Chloride 100 Carbon Dioxide 27 Anion Gap 11 BUN 9 Creatinine 0.67 Est GFR ( Amer) > 60 Glucose 226 H Calcium 9.2 Total Bilirubin 0.5 AST 33 Alkaline Phosphatase 120 Total Protein 7.0 Albumin 3.6 Impressions: Chest X-Ray 12/11/19 01:31 IMPRESSION: No acute cardiopulmonary process copyright 2010 [employer]- All Rights Reserved Assessment and Plan - Diagnosis (1) Acute asthma exacerbation Qualifiers: Asthma severity: moderate Asthma persistence: persistent Qualified Code(s): J45.41 - Moderate persistent asthma with (acute) exacerbation Is this a current diagnosis for this admission?: Yes (2) Acute respiratory failure with hypoxia Is this a current diagnosis for this admission?: Yes (3) Morbid obesity Is this a current diagnosis for this admission?: Yes (4) Obstructive sleep apnea Is this a current diagnosis for this admission?: Yes (5) Diabetes mellitus type 2 in obese Is this a current diagnosis for this admission?: Yes (6) Essential hypertension Is this a current diagnosis for this admission?: Yes - Plan Summary Summary: Patient will be admitted to the medical floor on telemetry. She will receive routine supportive and symptomatic cares. She will receive supplemental oxygen via nasal cannula and/or noninvasive airway pressure support devices such as CPAP or BiPAP as needed to maintain an adequate oxygen saturation and allow her to breathe comfortably. She will receive an aggressive pulmonary toilet utilizing Xopenex, Atrovent and Pulmicort. She will complete an IV Solu-Medrol burst dose protocol. She will use morphine sulfate 2 to 4 mg IV every 2 hours as needed for pain. She will use Ativan 1 mg IV every 4 hours as needed for anxiety or restlessness. Before meals and at bedtime Accu-Cheks will be obtained with sliding scale insulin used for hyperglycemia and a hypoglycemic protocol in place. Patient will be on a diabetic and cardiac restricted diet. Additional laboratory and/or radiographic evaluations will be obtained as needed. - Time Time Spent with patient: Less than 15 minutes Medications reviewed and adjusted accordingly: Yes Anticipated Discharge Disposition: Home, Self Care Anticipated Discharge Timeframe: within 72 hours - Inpatient Certification Based on my medical assessment, after consideration of the patient's c omorbidities, presenting symptoms, or acuity I expect that the services needed warrant INPATIENT care.: Yes I certify that my determination is in accordance with my understanding of Medicare's requirements for reasonable and necessary INPATIENT services [42 CFR 412.3e].: Yes Medical Necessity: Significant Comorbidiites Make Outpatient Treatment Too Risky, Need Close Monitoring Due to Risk of Patient Decompensation, Need for Nebulizer Therapy and Monitoring of Response
[2019-12-11] MEDS: BUDESONIDE NEB 0.5 MG/2 ML AMPUL NEB SCH ×2 (07:50→19:15)
[2019-12-11] MEDS: IPRATROPIUM BROMIDE 0.02% NEB 0.5 MG/2.5 ML AMPUL NEB SCH ×2 (07:58→16:30)
[2019-12-11] MEDS: LEVALBUTEROL HCL NEB 1.25 MG/3 ML AMPUL NEB SCH ×2 (08:09→16:30)
[2019-12-11] MEDS: INSULIN REG, HUMAN 100 UNIT/ML 3 ML VIAL (PYX) SUBCUT SCH ×4 (08:41→21:57)
[2019-12-11] MEDS ORDERED: SUCRALFATE 1 GM TABLET PO PRN (09:32)
[2019-12-11] MEDS ORDERED: FERROUS SULFATE 325 MG TABLET PO SCH (10:00)
[2019-12-11] MEDS ORDERED: FLUTICASONE NASAL SPRAY 50 MCG/SPRY 120 SPRAY/16 GM NASL SCH (10:00)
[2019-12-11] MEDS: DOCUSATE SODIUM 100 MG CAPSULE PO SCH ×2 (10:27→17:25)
[2019-12-11] MEDS: FUROSEMIDE 20 MG TABLET PO SCH (13:29)
[2019-12-11] MEDS: ONDANSETRON HCL INJ/PF 4 MG/2 ML SDV IV PRN (13:38)
[2019-12-11] MEDS ORDERED: GABAPENTIN 300 MG CAPSULE PO SCH (14:00)
[2019-12-11] MEDS: HYDROXYZINE PAMOATE 50 MG CAPSULE PO SCH ×2 (15:02→17:25)
[2019-12-11] MEDS ORDERED: INFLUENZA QUAD (6MOS+) 2020-21 VAC 0.5 ML SYR IM ONE (16:00)
[2019-12-11] MEDS ORDERED: CHLORZOXAZONE 750 MG PO PRN (17:39)
--- NOTE | 2019-12-11 17:42 | Progress Note ---
Provider Note Provider Note: Patient seen and examined by me. Says be breathing much better after getting breathing treatments and steroids. She was counseled extensively by me on weight loss and I recommend she switch to a vegan diet. Start Lasix. Stop IV fluids. See full H&P for detailed plan.
[2019-12-11] MEDS ORDERED: (PENDING PHARMACY ID) (Metformin Hcl [Metformin Hcl Er] 1,000 MG) PO SCH (18:00)
[2019-12-11] MEDS: OXYCODONE-ACETAMINOPHEN 5-325 MG TABLET PO PRN (18:46)
[2019-12-11] MEDS: METFORMIN HCL 500 MG TABLET PO SCH ×2 (18:46→23:20)
[2019-12-11] MEDS ORDERED: (PENDING PHARMACY ID) (Hydroxyzine Hcl [Hydroxyzine Hcl] 50 MG) PO SCH (22:00)
[2019-12-11] MEDS: AMITRIPTYLINE HCL 25 MG TABLET PO SCH (23:20)
[2019-12-12] MEDS: IPRATROPIUM BROMIDE 0.02% NEB 0.5 MG/2.5 ML AMPUL NEB SCH ×4 (01:00→23:56)
[2019-12-12] MEDS: LEVALBUTEROL HCL NEB 1.25 MG/3 ML AMPUL NEB SCH ×4 (01:00→23:56)
[2019-12-12] MEDS: OXYCODONE-ACETAMINOPHEN 5-325 MG TABLET PO PRN ×4 (01:15→21:34)
[2019-12-12] MEDS: METFORMIN HCL 500 MG TABLET PO SCH ×4 (07:02→23:31)
[2019-12-12] MEDS: HEPARIN SOD (PORCINE) 5,000 UNIT/ML 1 ML VIAL SUBCUT SCH ×3 (07:02→21:32)
[2019-12-12] MEDS: INSULIN REG, HUMAN 100 UNIT/ML 3 ML VIAL (PYX) SUBCUT SCH ×4 (08:07→21:24)
[2019-12-12] MEDS: PANTOPRAZOLE SODIUM 40 MG TABLET.DR PO SCH ×2 (08:08→17:55)
[2019-12-12] MEDS: FUROSEMIDE 20 MG TABLET PO SCH (08:08)
[2019-12-12] MEDS: BUDESONIDE NEB 0.5 MG/2 ML AMPUL NEB SCH ×2 (08:10→19:53)
[2019-12-12] MEDS: FLUTICASONE/VILANTEROL 200-25 MCG/DOSE IH SCH (09:08)
[2019-12-12] MEDS: HYDROXYZINE PAMOATE 50 MG CAPSULE PO SCH ×3 (09:09→17:55)
[2019-12-12] MEDS: DOCUSATE SODIUM 100 MG CAPSULE PO SCH ×2 (09:09→17:55)
--- NOTE | 2019-12-12 17:01 | PDOC PROGRESS REPORT ---
Subjective Subjective:: Per Previous Physician: "SARAHI ST is a 34 year old female who presented the emergency room via EMS with acute dyspnea. She awoke suddenly from sleep, not having placed her CPAP mask on her face prior to falling asleep, with extreme dyspnea accompanied by wheezing. She used her home inhalers (both albuterol and an inhaled steroid) with some improvement. She admits an associated nonproductive cough with mildly increased dyspnea over the last 2 days. She denies other associated or accompanying signs and symptoms. She admits prior similar episodes. Has not identified any aggravating or ameliorating factors for her acute dyspnea. Upon EMS arrival she was found to have an O2 sat in the 70s on room air which improved with supplemental oxygen. In the emergency room she was given several nebulizer treatments, IV Solu-Medrol and IV magnesium. She showed modest improvement with treatment however she still required supplemental oxygen. She was admitted to the hospital for further evaluation and treatment." 12/11/2019 Patient doing much better today. Breathing is significantly less labored today and she is having her supplemental oxygen weaned down. Counseled patient again on eating a vegan diet and she does not seem to be very interested in doing this. I went to great lengths to describe during the kinds of foods that she can eat in order to lose weight but I am concerned she will continue her current poor eating habits. She needs a nutrition consult outpatient. She has no new complaints today. Reason For Visit: ACUTE EXACERBATION OF ASTHMA Physical Exam Vital Signs: Temp Pulse Resp BP Pulse Ox 98.3 F 105 H 20 145/95 H 100 12/12/19 11:20 12/12/19 15:35 12/12/19 15:35 12/12/19 11:20 12/12/19 15:35 Intake & Output 12/11/19 12/12/19 12/13/19 06:59 06:59 06:59 Intake Total 200 1300 Balance 200 1300 Weight 188.3 kg 188.3 kg Exam: General appearance: PRESENT: no acute distress, well-developed, well-nourished, super morbidly obese Head exam: PRESENT: atraumatic, normocephalic Eye exam: PRESENT: conjunctiva pink. ABSENT: scleral icterus Mouth exam: PRESENT: moist Respiratory exam: PRESENT: clear to auscultation syl. ABSENT: rales, rhonchi, wheezes Cardiovascular exam: PRESENT: RRR. ABSENT: diastolic murmur, rubs, systolic murmur GI/Abdominal exam: PRESENT: normal bowel sounds, soft. ABSENT: distended, guarding, mass, organolmegaly, rebound, tenderness Neurological exam: PRESENT: alert, awake, oriented to person, oriented to place, oriented to time, oriented to situation Psychiatric exam: PRESENT: appropriate affect, normal mood Skin exam: PRESENT: dry, intact, warm Results Laboratory Results: 12/11/19 01:40 12/11/19 01:40 Impressions: Chest X-Ray 12/11/19 01:31 IMPRESSION: No acute cardiopulmonary process copyright 2010 [employer]- All Rights Reserved Assessment and Plan - Diagnosis (1) Acute asthma exacerbation Qualifiers: Asthma severity: moderate Asthma persistence: persistent Qualified Code(s): J45.41 - Moderate persistent asthma with (acute) exacerbation Is this a current diagnosis for this admission?: Yes Plan: Oxygen saturations in the 70s on admission, brought by EMS to ED for admission Steroids, magnesium, nebulizer treatments Supplemental oxygen, may need a lower goal then 94 as she is highly likely a CO2 retainer chronically due to FROYLAN/OHS As needed follow-up with pulmonology (2) Diabetes mellitus type 2 in obese Is this a current diagnosis for this admission?: Yes Plan: Accu-Cheks, correctional insulin (3) Essential hypertension Is this a current diagnosis for this admission?: Yes Plan: Home medications (4) Morbid obesity Is this a current diagnosis for this admission?: Yes Plan: -counseled extensively on vegan diet (5) Acute respiratory failure with hypoxia Is this a current diagnosis for this admission?: Yes (6) Obstructive sleep apnea Is this a current diagnosis for this admission?: Yes Plan: -CPAP QHS - Plan Summary Summary: Patient will be admitted to the medical floor on telemetry. She will receive routine supportive and symptomatic cares. She will receive supplemental oxygen via nasal cannula and/or noninvasive airway pressure support devices such as CPAP or BiPAP as needed to maintain an adequate oxygen saturation and allow her to breathe comfortably. She will receive an aggressive pulmonary toilet utilizing Xopenex, Atrovent and Pulmicort. She will complete an IV Solu-Medrol burst dose protocol. She will use morphine sulfate 2 to 4 mg IV every 2 hours as needed for pain. She will use Ativan 1 mg IV every 4 hours as needed for anxiety or restlessness. Before meals and at bedtime Accu-Cheks will be obtained with sliding scale insulin used for hyperglycemia and a hypoglycemic protocol in place. Patient will be on a diabetic and cardiac restricted diet. Additional laboratory and/or radiographic evaluations will be obtained as needed. - Time Time Spent with patient: 25-34 minutes Medications reviewed and adjusted accordingly: Yes Anticipated Discharge Disposition: Home, Self Care Anticipated Discharge Timeframe: within 24 hours - Inpatient Certification Based on my medical assessment, after consideration of the patient's comorbidities, presenting symptoms, or acuity I expect that the services needed warrant INPATIENT care.: Yes I certify that my determination is in accordance with my understanding of [employer]'s requirements for reasonable and necessary INPATIENT services [42 CFR 412.3e].: Yes Medical Necessity: Significant Comorbidiites Make Outpatient Treatment Too Risky, Need Close Monitoring Due to Risk of Patient Decompensation, Need for Nebulizer Therapy and Monitoring of Response, Risk of Complication if Not Cared For in Hospital, Risk of Diagnosis Which Will Require Inpatient Eval/Care/Monitoring
--- NOTE | 2019-12-12 19:51 | CDI QUERY ---
CDI Query CDI Review: Documentation in the Clinical Date section of the Medical Record indicates this patient has: Height: 5 ft 2 in Weight: 188.3 kg (414.26 lbs) Calculated BMI: 75.8 The following is also documented in the Medical Record: Morbid obesity -counseled extensively on vegan diet Based on your medical judgement, can you further clarify in the Progress Notes the diagnosis associated with these findings: Morbid Obesity / BMI 75.8 kg/m2 Overweight / BMI 75.8 kg/m2 Obesity / BMI 75.8 kg/m2 Other condition (please specify) None of the above / Not applicable Please note: Obesity is defined as: Class 1: BMI of 30 to < 35 Class 2: BMI of 35 to < 40 Class 3: BMI of > 40 (this is also defined as Morbid Obesity) Overweight: BMI 25 to < 30 Normal weight: BMI 18.5 to < 25 The condition of Morbid Obesity is a significant contributing factor to the health and recovery of a patient. Documentation of the BMI in the Progress Notes is necessary supporting documentation for these diagnoses. Thank you for your consideration. SAMMY Yo RN Clinical [employer] Associate Physician Advisor [email or web address]
[2019-12-12] MEDS: AMITRIPTYLINE HCL 25 MG TABLET PO SCH (21:32)
[2019-12-13] MEDS: OXYCODONE-ACETAMINOPHEN 5-325 MG TABLET PO PRN ×2 (03:50→10:39)
[2019-12-13] MEDS: ONDANSETRON HCL INJ/PF 4 MG/2 ML SDV IV PRN (05:11)
[2019-12-13] MEDS: PANTOPRAZOLE SODIUM 40 MG TABLET.DR PO SCH (05:12)
[2019-12-13] MEDS: HEPARIN SOD (PORCINE) 5,000 UNIT/ML 1 ML VIAL SUBCUT SCH ×2 (05:59→13:44)
[2019-12-13] MEDS: METFORMIN HCL 500 MG TABLET PO SCH ×2 (05:59→11:16)
[2019-12-13] MEDS: LEVALBUTEROL HCL NEB 1.25 MG/3 ML AMPUL NEB SCH (08:02)
[2019-12-13] MEDS: IPRATROPIUM BROMIDE 0.02% NEB 0.5 MG/2.5 ML AMPUL NEB SCH (08:02)
[2019-12-13] MEDS: BUDESONIDE NEB 0.5 MG/2 ML AMPUL NEB SCH (08:02)
[2019-12-13] MEDS: INSULIN REG, HUMAN 100 UNIT/ML 3 ML VIAL (PYX) SUBCUT SCH ×2 (08:24→12:10)
[2019-12-13] MEDS: DOCUSATE SODIUM 100 MG CAPSULE PO SCH (09:34)
[2019-12-13] MEDS: FUROSEMIDE 20 MG TABLET PO SCH (09:34)
[2019-12-13] MEDS: HYDROXYZINE PAMOATE 50 MG CAPSULE PO SCH (09:34)
[2019-12-13] MEDS: FLUTICASONE/VILANTEROL 200-25 MCG/DOSE IH SCH (09:35)
[2019-12-13] MEDS ORDERED: SERTRALINE HCL 50 MG TABLET PO SCH (10:00)
[2019-12-13] MEDS ORDERED: CHLORZOXAZONE 500 MG TABLET PO PRN (10:37)
[2019-12-13 14:24] VITALS: BP 147/85
--- NOTE | 2019-12-13 16:27 | PDOC DISCHARGE SUMMARY ---
Impression - Admit/DC Date/PCP Admission Date/Primary Care Provider: 12/11/19 04:06 [facility] Discharge Date: 12/13/19 - Discharge Diagnosis (1) Acute asthma exacerbation Is this a current diagnosis for this admission?: Yes (2) Diabetes mellitus type 2 in obese Is this a current diagnosis for this admission?: Yes (3) Essential hypertension Is this a current diagnosis for this admission?: Yes (4) Morbid obesity Is this a current diagnosis for this admission?: Yes (5) Acute respiratory failure with hypoxia Is this a current diagnosis for this admission?: Yes (6) Obstructive sleep apnea Is this a current diagnosis for this admission?: Yes - Assessment Summary: Patient will be admitted to the medical floor on telemetry. She will receive r outine supportive and symptomatic cares. She will receive supplemental oxygen via nasal cannula and/or noninvasive airway pressure support devices such as CPAP or BiPAP as needed to maintain an adequate oxygen saturation and allow her to breathe comfortably. She will receive an aggressive pulmonary toilet utilizing Xopenex, Atrovent and Pulmicort. She will complete an IV Solu-Medrol burst dose protocol. She will use morphine sulfate 2 to 4 mg IV every 2 hours as needed for pain. She will use Ativan 1 mg IV every 4 hours as needed for anxiety or restlessness. Before meals and at bedtime Accu-Cheks will be obtained with sliding scale insulin used for hyperglycemia and a hypoglycemic protocol in place. Patient will be on a diabetic and cardiac restricted diet. Additional laboratory and/or radiographic evaluations will be obtained as needed. - Additional Information Resuscitation Status: Full Code Discharge Diet: Other (Comments) Discharge Activity: Activity As Tolerated, Balance Activity w/Rest [facility] - 12/23/19 1:00 pm (PLEASE CALL THE OFFICE FOR ANY QUESTIONS OR CONCERNS) Prescriptions: Furosemide [Lasix 20 mg Tablet] 20 mg PO QAM #30 tablet Home Medications: Albuterol Sulfate [Proair HFA] 2 puff IH Q4HP PRN 06/03/17 Metformin HCl [Metformin HCl ER] 1,000 mg PO BID 05/15/18 Sucralfate [Carafate 1 gm Tablet] 1 gm PO ACHS 05/15/18 Amitriptyline HCl [Elavil 25 mg Tablet] 25 mg PO QHS 12/11/19 Budesonide/Formoterol Fumarate [Symbicort HFA 160-4.5 mcg Inhaler 6 gm] 2 puff IH BID 12/11/19 Chlorzoxazone [Lorzone] 750 mg PO BIDP PRN 12/11/19 Hydroxyzine HCl 50 mg PO Q8 12/11/19 Omeprazole Magnesium [Prilosec Otc] 20 mg PO Q6AM 12/11/19 Tizanidine HCl [Zanaflex 4 mg Tablet] 4 mg PO HSP PRN 12/11/19 Sertraline HCl [Zoloft 50 mg Tablet] 50 mg PO DAILY 12/12/19 Furosemide [Lasix 20 mg Tablet] 20 mg PO QAM #30 tablet 12/13/19 History of Present Illiness History of Present Illness: Per Previous Physician: "SARAHI ST is a 34 year old female who presented the emergency room via EMS with acute dyspnea. She awoke suddenly from sleep, not having placed her CPAP mask on her face prior to falling asleep, with extreme dyspnea accompanied by wheezing. She used her home inhalers (both albuterol and an inhaled steroid) with some improvement. She admits an associated nonproductive cough with mildly increased dyspnea over the last 2 days. She denies other associated or accompanying signs and symptoms. She admits prior similar episodes. Has not identified any aggravating or ameliorating factors for her acute dyspnea. Upon EMS arrival she was found to have an O2 sat in the 70s on room air which improved with supplemental oxygen. In the emergency room she was given several nebulizer treatments, IV Solu-Medrol and IV magnesium. She showed modest improvement with treatment however she still required supplemental oxygen. She was admitted to the hospital for further evaluation and treatment." morbid obesity BMI 77.4 Hospital Course Hospital Course: Per Previous Physician: "SARAHI ST is a 34 year old female who presented the emergency room via EMS with acute dyspnea. She awoke suddenly from sleep, not having placed her CPAP mask on her face prior to falling asleep, with extreme dyspnea accompanied by wheezing. She used her home inhalers (both albuterol and an inhaled steroid) with some improvement. She admits an associated nonproductive cough with mildly increased dyspnea over the last 2 days. She denies other associated or accompanying signs and symptoms. She admits prior similar episodes. Has not identified any aggravating or ameliorating factors for her acute dyspnea. Upon EMS arrival she was found to have an O2 sat in the 70s on room air which improved with supplemental oxygen. In the emergency room she was given several nebulizer treatments, IV Solu-Medrol and IV magnesium. She showed modest improvement with treatment however she still required supplemental oxygen. She was admitted to the hospital for further evaluation and treatment." 12/11/2019 Patient doing much better today. Breathing is significantly less labored today and she is having her supplemental oxygen weaned down. Counseled patient again on eating a vegan diet and she does not seem to be very interested in doing this. I went to great lengths to describe during the kinds of foods that she can eat in order to lose weight but I am concerned she will continue her current poor eating habits. She needs a nutrition consult outpatient. She has no new complaints today. On day of discharge, patient breathing comfortably on room air and ambulating around her room without problem. Patient states she is no longer short of breath and feels very well. She also notes that the Lasix has made a significant improvement in the edema in her legs that she has chronically. She would like to continue taking Lasix outpatient. Patient states she has all of her home nebulizer and inhaler medications and does not need any refills. A single intervention that would make the most substantial impact on her respiratory status is weight loss and this was reiterated multiple times during the admission. She would benefit greatly from a nutrition consult outpatient. I recommended she start a vegan diet. Steroids completed. (1) Acute asthma exacerbationresolved Qualifiers: Asthma severity: moderate Asthma persistence: persistent Qualified Code(s): J45.41 - Moderate persistent asthma with (acute) exacerbation Is this a current diagnosis for this admission?: Yes Plan: Oxygen saturations in the 70s on admission, brought by EMS to ED for admission Steroids, magnesium, nebulizer treatments Supplemental oxygen, may need a lower goal then 94 as she is highly likely a CO2 retainer chronically due to FROYLAN/OHS As needed follow-up with pulmonology Steroids completed (2) Diabetes mellitus type 2 in obese Is this a current diagnosis for this admission?: Yes Plan: Accu-Cheks, correctional insulin (3) Essential hypertension Is this a current diagnosis for this admission?: Yes Plan: Home medications (4) Morbid obesity Is this a current diagnosis for this admission?: Yes Plan: -counseled extensively on vegan diet Has chronic lower extremity edema, improved on Lasix, continue to discharge morbid obesity BMI 77.4 (5) Acute respiratory failure with hypoxia Is this a current diagnosis for this admission?: Yes (6) Obstructive sleep apnea Is this a current diagnosis for this admission?: Yes Plan: -CPAP QHS Physical Exam Vital Signs: Temp Pulse Resp BP Pulse Ox 98.4 F 110 H 19 147/85 H 95 12/13/19 14:23 12/13/19 14:23 12/13/19 14:23 12/13/19 14:23 12/13/19 14:23 Intake & Output 12/12/19 12/13/19 12/14/19 06:59 06:59 06:59 Intake Total 1300 240 280 Balance 1300 240 280 Weight 191.9 kg Exam: General appearance: PRESENT: no acute distress, well-developed, well-nourished, super morbidly obese, states she feels great and would like to go home today Head exam: PRESENT: atraumatic, normocephalic Eye exam: PRESENT: conjunctiva pink. ABSENT: scleral icterus Mouth exam: PRESENT: moist Respiratory exam: PRESENT: clear to auscultation syl. ABSENT: rales, rhonchi, wheezes Cardiovascular exam: PRESENT: RRR. ABSENT: diastolic murmur, rubs, systolic murmur GI/Abdominal exam: PRESENT: normal bowel sounds, soft. ABSENT: distended, guarding, mass, organolmegaly, rebound, tenderness Neurological exam: PRESENT: alert, awake, oriented to person, oriented to place, oriented to time, oriented to situation Psychiatric exam: PRESENT: appropriate affect, normal mood Skin exam: PRESENT: dry, intact, warm Results Laboratory Results: WBC 9.2 10^3/uL (4.0-10.5) 12/11/19 01:40 RBC 3.45 10^6/uL (3.72-5.28) L 12/11/19 01:40 Hgb 9.8 g/dL (12.0-15.5) L 12/11/19 01:40 Hct 30.3 % (36.0-47.0) L 12/11/19 01:40 MCV 88 fl (80-97) 12/11/19 01:40 MCH 28.4 pg (27.0-33.4) 12/11/19 01:40 MCHC 32.3 g/dL (32.0-36.0) 12/11/19 01:40 RDW 16.2 % (11.5-14.0) H 12/11/19 01:40 Plt Count 311 10^3/uL (150-450) 12/11/19 01:40 Lymph % (Auto) 14.5 % (13-45) 12/11/19 01:40 [place] % (Auto) 4.0 % (3-13) 12/11/19 01:40 Eos % (Auto) 1.5 % (0-6) 12/11/19 01:40 Baso % (Auto) 0.3 % (0-2) 12/11/19 01:40 Absolute Neuts (auto) 7.3 10^3/uL (1.7-8.2) 12/11/19 01:40 Absolute Lymphs (auto) 1.3 10^3/uL (0.5-4.7) 12/11/19 01:40 Absolute Monos (auto) 0.4 10^3/uL (0.1-1.4) 12/11/19 01:40 Absolute Eos (auto) 0.1 10^3/uL (0.0-0.6) 12/11/19 01:40 Absolute Basos (auto) 0.0 10^3/uL (0.0-0.2) 12/11/19 01:40 Seg Neutrophils % 79.7 % (42-78) H 12/11/19 01:40 VBG pH 7.33 (7.30-7.42) 12/11/19 01:40 VBG pCO2 56.7 mmHg (35-63) 12/11/19 01:40 VBG HCO3 28.9 mmol/L (20-32) 12/11/19 01:40 VBG Base Excess 2.0 mmol/L 12/11/19 01:40 Sodium 137.8 mmol/L (137-145) 12/11/19 01:40 Potassium 4.2 mmol/L (3.6-5.0) 12/11/19 01:40 Chloride 100 mmol/L (98-107) 12/11/19 01:40 Carbon Dioxide 27 mmol/L (22-30) 12/11/19 01:40 Anion Gap 11 (5-19) 12/11/19 01:40 BUN 9 mg/dL (7-20) 12/11/19 01:40 Creatinine 0.67 mg/dL (0.52-1.25) 12/11/19 01:40 Est GFR ( Amer) > 60 (>60) 12/11/19 01:40 Est GFR (MDRD) Non-Af > 60 (>60) 12/11/19 01:40 Glucose 226 mg/dL (75-110) H 12/11/19 01:40 POC Glucose 152 mg/dL (70-110) H 12/13/19 11:32 Calcium 9.2 mg/dL (8.4-10.2) 12/11/19 01:40 Total Bilirubin 0.5 mg/dL (0.2-1.3) 12/11/19 01:40 Direct Bilirubin 0.3 mg/dL (0.0-0.4) 12/11/19 01:40 Neonat Total Bilirubin Not Reportable 12/11/19 01:40 Neonat Direct Bilirubin Not Reportable 12/11/19 01:40 Neonat Indirect Bili Not Reportable 12/11/19 01:40 AST 33 U/L (14-36) 12/11/19 01:40 ALT 30 U/L (<35) 12/11/19 01:40 Alkaline Phosphatase 120 U/L (38-126) 12/11/19 01:40 Total Protein 7.0 g/dL (6.3-8.2) 12/11/19 01:40 Albumin 3.6 g/dL (3.5-5.0) 12/11/19 01:40 Impressions: Chest X-Ray 12/11/19 01:31 IMPRESSION: No acute cardiopulmonary process copyright 2011 [employer]- All Rights Reserved Plan Plan of Treatment: Follow-up with PCP Outpatient nutrition consult Vegan diet, consider Qsymia versus gastric bypass Time Spent: Greater than 30 Minutes Stroke Is this a Stroke Patient?: No Acute Heart Failure Is this a Heart Failure Patient?: No
== END 2019-12-13 15:02 | disposition home or self-care (01) | DRG 189 ==
LOC: ER 00:52 → EH 04:06 → 2S 12:45
PROVIDERS: ADMIT Emergency Medicine; ATTEND Internal Medicine
PROC: 5A09357 Assistance with Respiratory Ventilation, Less than 24 Consecutive Hours, Continuous Positive Airway Pressure (ICD-10-PCS; principal; 2019-12-11)
PROC: 3E02340 Introduction of Influenza Vaccine into Muscle, Percutaneous Approach (ICD-10-PCS; 2019-12-13)
DX: J96.01 Acute respiratory failure with hypoxia (principal); J45.41 Moderate persistent asthma with (acute) exacerbation; Z68.45 Body mass index [BMI] 70 or greater, adult; E11.9 Type 2 diabetes mellitus without complications; F31.9 Bipolar disorder, unspecified; D64.9 Anemia, unspecified; I10 Essential (primary) hypertension; E66.01 Morbid (severe) obesity due to excess calories; G47.33 Obstructive sleep apnea (adult) (pediatric); K21.9 Gastro-esophageal reflux disease without esophagitis; F90.9 Attention-deficit hyperactivity disorder, unspecified type; F43.10 Post-traumatic stress disorder, unspecified; Z23 Encounter for immunization; Z79.84 Long term (current) use of oral hypoglycemic drugs; Z79.899 Other long term (current) drug therapy; Z88.1 Allergy status to other antibiotic agents; Z88.0 Allergy status to penicillin; Z88.8 Allergy status to other drugs, medicaments and biological substances; Z87.891 Personal history of nicotine dependence; Z83.3 Family history of diabetes mellitus; Z82.49 Family history of ischemic heart disease and other diseases of the circulatory system
CPT/HCPCS: 36415; 71045; 80053; 82803; 82962; 85025; 90471; 90686; 94640; 96365; 96366; 96375; 99285; G0008; J1644; J1815; J2270; J2405; J2920; J3475; J3490; J7614; J7644

== ENCOUNTER 2020-01-19 03:42 | Emergency (ER) | payer OTHER ==
[2020-01-19 04:11] LABS: ABSOLUTE EOSINOPHILS # (AUTO) 0.1 10^3/uL (0.0-0.6); ABSOLUTE LYMPHOCYTES (AUTO) 1.6 10^3/uL (0.5-4.7); ABSOLUTE MONOCYTES (AUTO) 0.5 10^3/uL (0.1-1.4); ABSOLUTE NEUT (AUTO) 10.4 10^3/uL (1.7-8.2); BASOPHILS % (AUTO) 0.4 % (0-2); EOSINOPHILS % (AUTO) 0.8 % (0-6); HEMATOCRIT 28.5 % (36.0-47.0); LYMPHOCYTES % (AUTO) 12.9 % (13-45); MEAN CORPUSCULAR HEMOGLOBIN 26.5 pg (27.0-33.4); MEAN CORPUSCULAR HGB CONC 31.7 g/dL (32.0-36.0); MEAN CORPUSCULAR VOLUME 84 fl (80-97); MONOCYTES % (AUTO) 4.2 % (3-13); PLATELET COUNT 326 10^3/uL (150-450); RED BLOOD COUNT 3.41 10^6/uL (3.72-5.28); RED CELL DISTRIBUTION WIDTH 16.3 % (11.5-14.0); SEGMENTED NEUTROPHILS % (AUTO) 81.7 % (42-78); TOTAL CELLS COUNTED % (AUTO) 100 %; WHITE BLOOD COUNT 12.7 10^3/uL (4.0-10.5)
[2020-01-19 04:34] LABS: ALBUMIN 3.5 g/dL (3.5-5.0); ALKALINE PHOSPHATASE 221 U/L (38-126); ANION GAP 13 (5-19); ASPARTATE AMINO TRANSFERASE 34 U/L (14-36); BILIRUBIN,DIRECT 0.3 mg/dL (0.0-0.4); BILIRUBIN,TOTAL 0.8 mg/dL (0.2-1.3); BLOOD UREA NITROGEN 10 mg/dL (7-20); CALCIUM 8.6 mg/dL (8.4-10.2); CARBON DIOXIDE 25 mmol/L (22-30); CHLORIDE 99 mmol/L (98-107); GLUCOSE 200 mg/dL (75-110); TOTAL PROTEIN 7.1 g/dL (6.3-8.2)
--- NOTE | 2020-01-19 04:42 | RADIOLOGY REPORT (SQ) ---
EXAM DESCRIPTION: XR CHEST 1 VIEW COMPLETED DATE/TME: 01/19/2020 04:16 CLINICAL HISTORY: 34 years, Female, SOB COMPARISON: 12/11/2019 NUMBER OF VIEWS: One TECHNIQUE: AP view the chest LIMITATIONS: None. FINDINGS: Lungs are clear. Heart is normal in size. No pneumothorax or pleural effusion. Bones are unremarkable IMPRESSION: No acute cardiopulmonary abnormality. copyright 2010 [employer]- All Rights Reserved
[2020-01-19 05:16] LABS: APPEARANCE,URINE CLOUDY; BILIRUBIN,URINE NEGATIVE (NEGATIVE); COLOR,URINE AMBER; GLUCOSE, URINE NEGATIVE (NEGATIVE); KETONES,URINE NEGATIVE (NEGATIVE); LEUKOCYTE ESTERASE,URINE SMALL (NEGATIVE); NITRITE,URINE NEGATIVE (NEGATIVE); PROTEIN,URINE 100 mg/dL (NEGATIVE); URINE SPECIFIC GRAVITY 1.032
[2020-01-19] MEDS ORDERED: METHYLPREDNISOLONE INJ 125 MG/2 ML SDV IV ONE (05:49)
[2020-01-19] MEDS ORDERED: ALBUTEROL SULFATE 0.083% NEB 2.5 MG/3 ML AMPUL NEB ONE (05:50)
[2020-01-19] MEDS ORDERED: ONDANSETRON HCL INJ/PF 4 MG/2 ML SDV IV ONE (05:50)
[2020-01-19] MEDS ORDERED: FLUCONAZOLE 100 MG TABLET PO ONE (06:33)
[2020-01-19] MEDS ORDERED: NORMAL SALINE 1000 ML 1,000 ML IV ONE (06:33)
--- NOTE | 2020-01-19 06:39 | ER Document Report ---
ED General - General Chief Complaint: Shortness Of Breath Stated Complaint: RESPIRATORY DISTRESS Time Seen by Provider: 01/19/20 06:10 Primary Care Provider: [facility] [Primary Care Provider] - Follow up as needed TRAVEL OUTSIDE OF THE [place] IN LAST 30 DAYS: No - HPI Context: This is a 34-year-old female with a history of asthma and diabetes who presents to the emergency department complaining of shortness of breath. Patient states that she is been feeling short of breath for the past day or so and states that her symptoms are similar to her prior asthma exacerbations. Patient states the only exacerbating factor is exertion and the only alleviating factor seems to be rest. Patient states she has been using her inhaler and has more than enough at home. Patient states she usually gets put on prednisone and this helps with her symptoms in terms of her shortness of breath. Patient denies fever, chest pain, loss of sense of taste or sense of smell, prior COVID-19 infection, known exposure to COVID-19 positive persons or persons under investigation for COVID- 19. Patient states she does not smoke. Patient is also concerned about a yeast infection that is present underneath her breasts and also present in her inguinal creases. Patient states she has been trying elta-yge-loollms remedies without relief of symptoms. Associated symptoms: Other - See HPI Exacerbated by: Other - See HPI Relieved by: Other - See HPI Similar symptoms previously: Yes - Related Data Allergies/Adverse Reactions: amoxicillin [Amoxicillin] Allergy (Verified 09/09/19 13:16) benzonatate [From Tessalon Perles] Allergy (Verified 09/09/19 13:16) fluticasone [From Advair Diskus] Allergy (Verified 09/09/19 13:16) iloperidone [From Fanapt] Allergy (Verified 09/09/19 13:16) Penicillins Allergy (Verified 09/09/19 13:16) salmeterol [From Advair Diskus] Allergy (Verified 09/09/19 13:16) Past Medical History - General Information source: Patient, Emergency Med Personnel - Social History Smoking Status: Never Smoker Family History: Reviewed & Not Pertinent, DM, Hypertension, Other - Brother with venous thrombosis Patient has suicidal ideation: No Patient has homicidal ideation: No - Past Medical History Cardiac Medical History: Reports: Hx Hypertension Denies: Hx Atrial Fibrillation, Hx Coronary Artery Disease, Hx DVT, Hx Pulmonary Embolism Pulmonary Medical History: Reports: Hx Asthma, Hx Bronchitis, Hx Pneumonia, Hx Sleep Apnea Neurological Medical History: Denies: Hx Seizures Endocrine Medical History: Reports: Hx Diabetes Mellitus Type 2. Denies: Hx Hyperthyroidism, Hx Hypothyroidism Renal/ Medical History: Reports: Hx Ovarian Cysts GI Medical History: Reports: Hx Gastroesophageal Reflux Disease, Hx Ulcer. Denies: Hx Cirrhosis, Hx Hepatitis Musculoskeletal Medical History: Denies Hx Arthritis, Denies Hx Fibromyalgia Skin Medical History: Denies Hx Eczema, Denies Hx Psoriasis Psychiatric Medical History: Reports: Hx Anxiety, Hx Attention Deficit Hyperactivity Disorder, Hx Bipolar Disorder, Hx Depression, Hx Post Traumatic Stress Disorder Infectious Medical History: Denies: Hx Hepatitis Past Surgical History: Reports: Hx Adenoidectomy, Hx Gynecologic Surgery - R ovarian cyst 2010 Uterine fibroid removal 2009 in [place]., Hx Tonsillectomy - Immunizations Hx Diphtheria, Pertussis, Tetanus Vaccination: Yes - 06/2011 Review of Systems - Review of Systems Constitutional: No symptoms reported EENT: No symptoms reported Cardiovascular: No symptoms reported Respiratory: Short of breath Gastrointestinal: No symptoms reported Genitourinary: No symptoms reported Female Genitourinary: No symptoms reported Musculoskeletal: No symptoms reported Skin: Rash Hematologic/Lymphatic: No symptoms reported Neurological/Psychological: No symptoms reported -: Yes All other systems reviewed and negative Physical Exam - Vital signs Vitals: BP Pulse Ox 137/64 H 99 01/19/20 03:44 01/19/20 03:44 - Notes Notes: CONSTITUTIONAL [Vital signs reviewed, Patient appears comfortable, Alert and oriented X 3, Normal stature.] HEAD [Atraumatic, Normocephalic.] EYES [Eyes are normal to inspection, No discharge from eyes, Extraocular muscles intact, Sclera are normal, Conjunctiva are normal.] ENT [External ears normal to inspection, Nose examination normal, Mouth normal to inspection.] NECK [Normal ROM, No jugular venous distention, No meningeal signs, ] RESPIRATORY CHEST [Chest is nontender, Breath sounds normal, patient is slightly tachypneic. No wheezing or rhonchi are appreciated CARDIOVASCULAR [RRR, No murmurs, Normal S1 S2, No rub, No gallop.] ABDOMEN [Abdomen is nontender, No pulsatile masses, No other masses, Bowel sounds normal, No distension, No peritoneal signs, No hernias.] BACK [There is no CVA Tenderness, There is no tenderness to palpation, Normal inspection.] UPPER EXTREMITY [Inspection normal, No cyanosis, No clubbing, No edema, LOWER EXTREMITY [Inspection normal, No cyanosis, No clubbing, No edema, No calf tenderness, NEURO [No focal motor deficits, No focal sensory deficits, Speech normal.] SKIN Patient has a erythematous, macular rash in the folds of each breast and is also present in her inguinal creases. Satellite lesions are present. Appearance of rash is most consistent with cutaneous candidiasis. PSYCHIATRIC [Normal affect. ] Course - Re-evaluation Re-evalutation: 01/19/20 06:43 Results of ED MSE discussed with patient. Wound asked if all of the patient's questions were answered and concerns addressed, patient answers in the affirmative. Emergency signs and symptoms, reasons to return to the emergency department discussed with patient. - Vital Signs Vital signs: Temp Pulse Resp BP Pulse Ox 19 135/45 H 100 01/19/20 05:01 01/19/20 05:01 01/19/20 05:01 - Laboratory Result Diagrams: 01/19/20 03:55 01/19/20 03:55 Laboratory results interpreted by me: 01/19/20 01/19/20 01/19/20 03:55 03:55 04:47 WBC 12.7 H RBC 3.41 L Hgb 9.0 L Hct 28.5 L MCH 26.5 L MCHC 31.7 L RDW 16.3 H Lymph % (Auto) 12.9 L Absolute Neuts (auto) 10.4 H Seg Neutrophils % 81.7 H Sodium 136.5 L Glucose 200 H Alkaline Phosphatase 221 H Urine Protein 100 H Urine Blood LARGE H Urine Urobilinogen 4.0 H Ur Leukocyte Esterase SMALL H - Diagnostic Test Radiology reviewed: Reports reviewed - EKG Interpretation by Me Additional EKG results interpreted by me: 01/19/20 06:52 EKG obtained on 01/19/2020 at 0408 hrs. was interpreted by this MD. Findings: Sinus tachycardia, rate 108, normal axis, NV interval appears to be within normal limits, P waves preceding QRS complexes, QRS complexes appear narrow, QTC is 472, there are no obvious patterns of ST segment elevation, depression or reciprocal changes present to suggest acute myocardial ischemia or infarction. When compared to EKG from 11/19/2019 morphology of the 2 EKGs appears to be grossly the same. Impression: Sinus tachycardia with nonspecific ST segments. Discharge - Discharge Clinical Impression: Cutaneous candidiasis Asthma exacerbation Qualifiers: Asthma severity: unspecified severity Asthma persistence: unspecified Qualified Code(s): J45.901 - Unspecified asthma with (acute) exacerbation Condition: Stable Disposition: HOME, SELF-CARE Additional Instructions: Follow-up with your primary care provider in 2 days. Return to the Emergency Department without delay if any worse. HOME CARE INSTRUCTIONS & INFORMATION: Thank you for choosing us for your medical needs. We hope you're satisfied with the care you received. After you leave, you must properly care for your problem and, at the same time, observe its progress. Any condition can change. Some illnesses can change rapidly over hours or days. If your condition worsens, return to the Emergency Department or see your physician promptly. ABOUT YOUR X-RAYS AND EKG'S: If you had an EKG or X-rays taken, they have been read by the Emergency Physician. The X-rays and EKG's will also be read by a Radiologist or Drive Away Driver within 24 hours. If discrepancies are noted, you will be notified by telephone. Please be certain the ED has a correct telephone number & address where you can be reached. Also, realize that some fractures or abnormalities do not show up on initial X-rays. If your symptoms continue, see your physician. ABOUT YOUR LABORATORY TEST: If you had laboratory tests, the results have been reviewed by the Emergency Physician. Some test results (for example cultures) may not be available for several days. You will be contacted if any test result shows you need additional treatment. Please be certain the ED has a correct telephone number and address where you can be reached. ABOUT YOUR MEDICATIONS: You will receive instructions on how to take your medicine on the prescription label you receive. Additional information may be provided by the Pharmacy. If you have questions afterwards, call the ED for clarification or further instructions. Some prescribed medications may cause drowsiness. Do not perform tasks such as driving a car or operating machinery without consulting your Pharmacist. If you feel you need a refill of pain medication, your condition will need re-evaluation. Please do not call for a refill of any medication. ABOUT YOUR SIGNATURE: Signature of this document acknowledges to followin. Understanding that you received emergency treatment and that you may be released before al medical problems are known or treated. Please be certain the ED has a correct phone number & address where you can be reached. 2. Acknowledgement that you will arrange for follow-up care as recommended. 3. Authorization for the Emergency Physician to provide information to your follow-up Physician in order to maximize your care. AT ANY TIME, IF YOUR SYMPTOMS CHANGE SIGNIFICANTLY OR WORSEN OR YOU DEVELOP NEW SYMPTOMS, RETURN TO THE EMERGENCY DEPARTMENT IMMEDIATELY FOR RE-EVALUATION. OUR GOAL IS TO PROVIDE EXCELLENT MEDICAL CARE! WE HOPE THAT WE HAVE MET YOUR EXPECTATIONS DURING YOUR EMERGENCY DEPARTMENT VISIT AND THAT YOU FEEL YOU HAVE RECEIVED EXCELLENT CARE! Prescriptions: Prednisone [Deltasone 10 mg Tablet] 10 mg PO ASDIR PRN #21 tablet PRN Reason: Fluconazole [Diflucan] 150 mg PO DAILY 6 Days #6 tablet Nystatin 1,000,000 unit MC BID 10 Days #90 g Referrals: [facility] [Primary Care Provider] - Follow up as needed
[2020-01-19] MEDS ORDERED: KETOROLAC TROMETHAMINE INJ/PF 30 MG/1 ML SDV IV ONE (07:38)
[2020-01-19 07:46] VITALS: BP 137/72
--- NOTE | 2020-01-19 19:01 | EKG REPORT ---
SEVERITY:- OTHERWISE NORMAL ECG - SINUS TACHYCARDIA : Confirmed by: Aleah Arndt MD 19-Jan-2020 18:59:56
== END 2020-01-19 08:03 | disposition home or self-care (01) ==
LOC: ER 03:42
DX: J45.901 Unspecified asthma with (acute) exacerbation (principal); B37.2 Candidiasis of skin and nail; R00.0 Tachycardia, unspecified; I10 Essential (primary) hypertension; E11.9 Type 2 diabetes mellitus without complications; R06.02 Shortness of breath; Z79.899 Other long term (current) drug therapy; Z87.01 Personal history of pneumonia (recurrent); Z88.0 Allergy status to penicillin; Z88.8 Allergy status to other drugs, medicaments and biological substances
CPT/HCPCS: 93005; 94640; 99285; 96361; 96374; 96375; 36415; 85025; 80053; 81001; 71045; 93010; J2930; J1885; J2405; J7030; J7613

== ENCOUNTER 2020-01-21 19:52 | Inpatient (IN) | payer OTHER ==
[2020-01-21] MEDS ORDERED: IPRATROPIUM/ALBUTEROL 0.5-2.5 MG/3 ML AMPUL NEB ONE (21:27)
[2020-01-21] MEDS ORDERED: METHYLPREDNISOLONE INJ 125 MG/2 ML SDV IV ONE (21:27)
[2020-01-21] MEDS ORDERED: DICYCLOMINE HCL INJ 20 MG/2 ML AMPULE IM ONE (21:29)
--- NOTE | 2020-01-21 21:38 | ER Document Report ---
ED Medical Screen (RME) - General Chief Complaint: Abdominal Pain Stated Complaint: ABDOMINAL PAIN Time Seen by Provider: 01/21/20 21:16 Primary Care Provider: BLAYNE WONG,[facility] [Primary Care Provider] - Follow up as needed Mode of Arrival: Wheelchair Information source: Patient Notes: Patient is a 34-year-old female returns emergency room tonight complaining of abdominal pain and discomfort. Patient states that she was here on Monday night and was here for respiratory problems but they ended up treating her with a rash under her breasts with Diflucan nystatin and prednisone. Patient states that she has been constipated for the past week and constipation started really bad on Monday. She has not had a bowel movement for several days. She states her normal 3-4 times a day. She also states she is very nauseated. Nursing reported that when patient got into the the triage room she was satting only about 82% so they placed her on oxygen. Patient does have a history of respiratory problems. She currently is not on oxygen at home or for any exertion. She denies any history congestive heart failure. Last menstrual period approximately a month ago on the floor. Denies any dysuria but states that she has urgency all the time. Physical examination: Patient is a well-nourished well-developed morbidly obese 34-year-old female appears ill. Patient vital signs show a temp of 100.6, heart rate 109 bpm on monitor, blood pressure 140/81 and respiratory rate of 24. Cardiac as stated shows tachycardic at 109 bpm no murmurs auscultated. Lungs: Bilateral breath sounds decreased throughout with expiratory wheeze noted. No rhonchi or rales are heard on auscultation. Abdomen: In the sitting position is impossible to ascertain and sounds at this time and also very difficult to ascertain any type of pain or discomfort secondary to body habitus. Go back to surgery patient's history she said a CTA with abdominal contrast several times I felt it was worth doing a CT from contrast of her abdomen at this point and will need to be upfront about the site of the go with the CTA most likely this is probably a asthma exacerbation. Given her DuoNeb and prednisone in triage. I have greeted and performed a rapid initial assessment of this patient. A comprehensive ED assessment and evaluation of the patient, analysis of test results and completion of the medical decision making process will be conducted by additional ED providers. Dictation of this chart was performed using voice recognition software; therefore, there may be some unintended grammatical errors. TRAVEL OUTSIDE OF THE [place] IN LAST 30 DAYS: No - Related Data Allergies/Adverse Reactions: amoxicillin [Amoxicillin] Allergy (Verified 01/21/20 21:01) benzonatate [From Tessalon Perles] Allergy (Verified 01/21/20 21:01) fluticasone [From Advair Diskus] Allergy (Verified 01/21/20 21:01) iloperidone [From Fanapt] Allergy (Verified 01/21/20 21:01) Penicillins Allergy (Verified 01/21/20 21:01) salmeterol [From Advair Diskus] Allergy (Verified 01/21/20 21:01) Home Medications: DIABETIC Past Medical History - Social History Frequency of alcohol use: None Drug Abuse: None Family history: None - Past Medical History Cardiac Medical History: Reports: Hx Hypertension Denies: Hx Atrial Fibrillation, Hx Coronary Artery Disease, Hx DVT, Hx Pulmonary Embolism Pulmonary Medical History: Reports: Hx Asthma, Hx Bronchitis, Hx Pneumonia, Hx Sleep Apnea Neurological Medical History: Denies: Hx Seizures Endocrine Medical History: Reports: Hx Diabetes Mellitus Type 2. Denies: Hx Hyperthyroidism, Hx Hypothyroidism Renal/ Medical History: Reports: Hx Ovarian Cysts GI Medical History: Reports: Hx Gastroesophageal Reflux Disease, Hx Ulcer. Denies: Hx Cirrhosis, Hx Hepatitis Musculoskeltal Medical History: Denies Hx Arthritis, Denies Hx Fibromyalgia Skin Medical History: Denies Hx Eczema, Denies Hx Psoriasis Psychiatric Medical History: Reports: Hx Anxiety, Hx Attention Deficit Hyperactivity Disorder, Hx Bipolar Disorder, Hx Depression, Hx Post Traumatic Stress Disorder Infectious Medical History: Denies: Hx Hepatitis Past Surgical History: Reports: Hx Adenoidectomy, Hx Gynecologic Surgery - R ovarian cyst 2010 Uterine fibroid removal 2010 in [place]., Hx Tonsillectomy - Immunizations Hx Diphtheria, Pertussis, Tetanus Vaccination: Yes - 06/2011 Physical Exam - Vital signs Vitals: Temp Pulse Resp BP Pulse Ox 100.6 F H 109 H 28 H 140/81 H 97 01/21/20 20:39 01/21/20 20:39 01/21/20 20:39 01/21/20 20:39 01/21/20 20:39 Course - Vital Signs Vital signs: Temp Pulse Resp BP Pulse Ox 100.6 F H 109 H 28 H 140/81 H 97 01/21/20 20:39 01/21/20 20:39 01/21/20 20:39 01/21/20 20:39 01/21/20 20:39 Doctor's Discharge - Discharge [facility]errals: [facility] [Primary Care Provider] - Follow up as needed
[2020-01-21 22:27] LABS: ABSOLUTE LYMPHOCYTES (AUTO) 1.6 10^3/uL (0.5-4.7); ABSOLUTE MONOCYTES (AUTO) 0.4 10^3/uL (0.1-1.4); ABSOLUTE NEUT (AUTO) 16.6 10^3/uL (1.7-8.2); BASOPHILS % (AUTO) 0.2 % (0-2); EOSINOPHILS % (AUTO) 0.2 % (0-6); HEMATOCRIT 29.2 % (36.0-47.0); HEMOGLOBIN 9.3 g/dL (12.0-15.5); LYMPHOCYTES % (AUTO) 8.4 % (13-45); MEAN CORPUSCULAR HEMOGLOBIN 26.7 pg (27.0-33.4); MEAN CORPUSCULAR HGB CONC 31.6 g/dL (32.0-36.0); MEAN CORPUSCULAR VOLUME 84 fl (80-97); MONOCYTES % (AUTO) 2.2 % (3-13); PLATELET COUNT 391 10^3/uL (150-450); RED BLOOD COUNT 3.47 10^6/uL (3.72-5.28); RED CELL DISTRIBUTION WIDTH 16.7 % (11.5-14.0); TOTAL CELLS COUNTED % (AUTO) 100 %; WHITE BLOOD COUNT 18.7 10^3/uL (4.0-10.5)
--- NOTE | 2020-01-21 22:40 | RADIOLOGY REPORT (SQ) ---
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 COMPARISON: CT of abdomen and pelvis from 06/04/2014 TECHNIQUE: Axial contiguous images were obtained from the lung bases to the proximal femurs without intravenous contrast administered. Sagittal and coronal reconstructions were also obtained and reviewed. This exam was performed according to our departmental dose-optimization program, which includes automated exposure control, adjustment of the mA and/or KV according to the patient's size and/or use of iterative reconstruction technique. FINDINGS: There are nonspecific groundglass changes within the lung bases. There is trace left pleural fluid noted. There is a subpleural 6 mm nodule at the left lower lobe on image seven of 90. Evaluation of the solid organs is limited by the lack of intravenous contrast. The visualized hepatic parenchyma is diffusely low in attenuation. The hepatic silhouette is prominent in size. There is increased density within the gallbladder lumen which may be secondary to sludge or vicarious excretion of contrast. Spleen is at the upper limits of normal in size, measures up to 13.8 cm in length.. The pancreas is unremarkable. The bilateral adrenal glands appear unremarkable. Both kidneys demonstrate no evidence of hydronephrosis. No renal or ureteral calculi are seen. The urinary bladder is mildly distended, and appears grossly unremarkable. The uterus is present. The stomach is not well distended. The small bowel loops appear unremarkable. No pericolonic inflammatory stranding is seen. The appendix is not visualized, and may be surgically absent. There is no evidence of pneumoperitoneum or free fluid. The aorta and IVC appear normal in size. No significantly enlarged lymph nodes are seen in the abdomen or pelvis. Review of the bone show no evidence of any suspicious lytic or blastic lesions. There is stranding at the intra-abdominal wall which may represent evidence of cellulitis. This is not fully included on this examination. IMPRESSION: No acute process is seen within the abdomen or pelvis. There are stranding at the intra-abdominal wall which may represent evidence of cellulitis.
--- NOTE | 2020-01-21 22:42 | RADIOLOGY REPORT (SQ) ---
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 Comparison: Chest radiograph performed 01/19/2020. Findings: The cardiomediastinal silhouette is enlarged. No pneumothorax is seen. Trace effusions. There is some mild interstitial prominence present. There are hazy bibasilar airspace opacities seen. Impression: There is mild interstitial prominence with bibasilar airspace opacities. These findings may reflect edema, atelectasis, or infection.
[2020-01-21 22:46] LABS: ALBUMIN 3.8 g/dL (3.5-5.0); ALKALINE PHOSPHATASE 229 U/L (38-126); ANION GAP 11 (5-19); ASPARTATE AMINO TRANSFERASE 27 U/L (14-36); BILIRUBIN,DIRECT 0.3 mg/dL (0.0-0.4); BILIRUBIN,TOTAL 0.8 mg/dL (0.2-1.3); BLOOD UREA NITROGEN 14 mg/dL (7-20); CALCIUM 9.2 mg/dL (8.4-10.2); CARBON DIOXIDE 29 mmol/L (22-30); CHLORIDE 97 mmol/L (98-107); GLUCOSE 295 mg/dL (75-110); POTASSIUM 4.5 mmol/L (3.6-5.0); TOTAL PROTEIN 7.5 g/dL (6.3-8.2)
--- NOTE | 2020-01-21 23:47 | ER Document Report ---
ED GI/ - General Chief Complaint: Abdominal Pain Stated Complaint: ABDOMINAL PAIN Time Seen by Provider: 01/21/20 21:16 Primary Care Provider: [facility] W[facility] [NO LOCAL MD] - Follow up as needed Mode of Arrival: Wheelchair Notes: PRIOR ED VISIT Emergency Provider: SOUMYA ROTHMAN Toriekathyjose Number: [id number] Date: 11/19/19 19:44 Primary Care Provider: PAO FELICIANO [Primary Care Provider] - Follow up as needed Mode of Arrival: Wheelchair Notes: Patient is a 34-year-old morbidly obese female who presents to the emergency department for evaluation of dyspnea on exertion and abnormal vaginal bleeding. Neither of these problems is new. The patient has had irregular menstruation for quite some time. She states that she has had vaginal bleeding over the last 2 weeks. She has had "lots of clots" and cramping associated. She states her last menstruation was in July or August. Patient also states she has shortness of breath with exertion. This is been ongoing for some time. She has been referred to the "lung lab" for evaluation. She also is concerned that she has sores on her buttocks that have not yet healed. She is concerned that they could be causing her to be more short of breath. No fevers or chills. No nausea or vomiting. She states that she was trying to lose weight, but as a result of the COVID-19 pandemic and social distancing, she has in fact gained weight. PRIOR ED VISIT with SALOMON PLAZA IV Date: 01/19/20 06:34 Context: This is a 34-year-old female with a history of asthma and diabetes who presents to the emergency department complaining of shortness of breath. Patient states that she is been feeling short of breath for the past day or so and states that her symptoms are similar to her prior asthma exacerbations. Patient states the only exacerbating factor is exertion and the only alleviating factor seems to be rest. Patient states she has been using her inhaler and has more than enough at home. Patient states she usually gets put on prednisone and this helps with her symptoms in terms of her shortness of breath. Patient denies fever, chest pain, loss of sense of taste or sense of smell, prior COVID-19 infection, known exposure to COVID-19 positive persons or persons under investigation for COVID- 19. Patient states she does not smoke. Patient is also concerned about a yeast infection that is present underneath her breasts and also present in her inguinal creases. Patient states she has been trying [id number] remedies without relief of symptoms 01/21/20 21:06 - ED Nursing Note by BRADENCOLLINS Acct Num: [id number] : 1985 Patient Age: [age] Y/O, WITH AN EXTENSIVE PMH, PRESENTS C/O DIFFUSE LOWER ABD PAIN, 5/5. REPORT NAUSEA, NO VOMITING. LAST SIGNIFICANT BM WAS LAST MONDAY. DENIES UTI, VAG DISCHARGE. NOTE: PT MADE LEVEL TO SHE CAN NOT MAINTAIN SATS ABOVE 92%. ED Medical Screen (Hugo Gillis) - General Chief Complaint: Abdominal Pain Stated Complaint: ABDOMINAL PAIN Time Seen by Provider: 01/21/20 21:16 Primary Care Provider: [facility] [Primary Care Provider] - Follow up as needed Mode of Arrival: Wheelchair Information source: Patient Notes: Patient is a 34-year-old female returns emergency room tonight complaining of abdominal pain and discomfort. Patient states that she was here on Monday night and was here for respiratory problems but they ended up treating her with a rash under her breasts with Diflucan nystatin and prednisone. Patient states that she has been constipated for the past week and constipation started really bad on Monday. She has not had a bowel movement for several days. She states her normal 3-4 times a day. She also states she is very nauseated. Nursing report ed that when patient got into the the triage room she was satting only about 82% so they placed her on oxygen. Patient does have a history of respiratory problems. She currently is not on oxygen at home or for any exertion. She denies any history congestive heart failure. Last menstrual period a pproximately a month ago on the floor. Denies any dysuria but states that she has urgency all the time. Physical examination: Patient is a well-nourished well-developed morbidly obese 34-year-old female appears ill. Patient vital signs show a temp of 100.6, heart rate 109 bpm on monitor, blood pressure 140/81 and respiratory rate of 24. Cardiac as stated shows tachycardic at 109 bpm no murmurs auscultated. Lungs: Bilateral breath sounds decreased throughout with expiratory wheeze noted. No rhonchi or rales are heard on auscultation. Abdomen: In the sitting position is impossible to ascertain and sounds at this time and also very difficult to ascertain any type of pain or discomfort seco ndary to body habitus. Go back to surgery patient's history she said a CTA with abdominal contrast several times I felt it was worth doing a CT from contrast of her abdomen at this point and will need to be upfront about the site of the go with the CTA most likely this is probably a asthma exacerbation. Given her DuoNeb and prednisone in triage. TRAVEL OUTSIDE OF THE [place] IN LAST 30 DAYS: No - Related Data Allergies/Adverse Reactions: amoxicillin [Amoxicillin] Allergy (Verified 01/21/20 21:01) benzonatate [From Tessalon Perles] Allergy (Verified 01/21/20 21:01) fluticasone [From Advair Diskus] Allergy (Verified 01/21/20 21:01) iloperidone [From Fanapt] Allergy (Verified 01/21/20 21:01) Penicillins Allergy (Verified 01/21/20 21:01) salmeterol [From Advair Diskus] Allergy (Verified 01/21/20 21:01) Home Medications: DIABETIC Past Medical History - General Information source: Patient - Social History Smoking Status: Never Smoker Frequency of alcohol use: None Drug Abuse: None Family History: Reviewed & Not Pertinent, DM, Hypertension, Other - Brother with venous thrombosis - Past Medical History Cardiac Medical History: Reports: Hx Hypertension Denies: Hx Atrial Fibrillation, Hx Coronary Artery Disease, Hx DVT, Hx Pulmonary Embolism Pulmonary Medical History: Reports: Hx Asthma, Hx Bronchitis, Hx Pneumonia, Hx Sleep Apnea Neurological Medical History: Denies: Hx Seizures Endocrine Medical History: Reports: Hx Diabetes Mellitus Type 2. Denies: Hx Hyperthyroidism, Hx Hypothyroidism Renal/ Medical History: Reports: Hx Ovarian Cysts GI Medical History: Reports: Hx Gastroesophageal Reflux Disease, Hx Ulcer. Denies: Hx Cirrhosis, Hx Hepatitis Musculoskeletal Medical History: Denies Hx Arthritis, Denies Hx Fibromyalgia Skin Medical History: Denies Hx Eczema, Denies Hx Psoriasis Psychiatric Medical History: Reports: Hx Anxiety, Hx Attention Deficit Hyperactivity Disorder, Hx Bipolar Disorder, Hx Depression, Hx Post Traumatic Stress Disorder Infectious Medical History: Denies: Hx Hepatitis Past Surgical History: Reports: Hx Adenoidectomy, Hx Gynecologic Surgery - R ovarian cyst 2010 Uterine fibroid removal 2009 in [place]., Hx Tonsillectomy - Immunizations Hx Diphtheria, Pertussis, Tetanus Vaccination: Yes - 06/2011 Physical Exam - Vital signs Vitals: Temp Pulse Resp BP Pulse Ox 100.6 F H 109 H 28 H 140/81 H 97 01/21/20 20:39 01/21/20 20:39 01/21/20 20:39 01/21/20 20:39 01/21/20 20:39 Course - Vital Signs Vital signs: Temp Pulse Resp BP Pulse Ox 100.6 F H 109 H 23 H 140/81 H 91 L 01/21/20 20:39 01/21/20 20:39 01/21/20 23:00 01/21/20 20:39 01/21/20 23:00 - Laboratory Result Diagrams: 01/21/20 22:05 01/21/20 22:05 Laboratory results interpreted by me: 01/21/20 01/21/20 01/21/20 22:05 22:05 22:05 WBC 18.7 H RBC 3.47 L Hgb 9.3 L Hct 29.2 L MCH 26.7 L MCHC 31.6 L RDW 16.7 H Lymph % (Auto) 8.4 L [place] % (Auto) 2.2 L Absolute Neuts (auto) 16.6 H Seg Neutrophils % 89.0 H PT 15.7 H Chloride 97 L Glucose 295 H ALT 40 H Alkaline Phosphatase 229 H Lactate Dehydrogenase 01/21/20 22:05 WBC RBC Hgb Hct MCH MCHC RDW Lymph % (Auto) [place] % (Auto) Absolute Neuts (auto) Seg Neutrophils % PT Chloride Glucose ALT Alkaline Phosphatase Lactate Dehydrogenase 276 H Critical Care Note - Critical Care Note Comments: I spoke with Dr. Mcrae at 0037 and he advised admission OBS Discharge - Discharge Clinical Impression: COVID-19 virus RNA test result unknown URI (upper respiratory infection) Qualifiers: URI type: unspecified URI Qualified Code(s): J06.9 - Acute upper respiratory infection, unspecified Abdominal pain Qualifiers: Abdominal location: generalized Qualified Code(s): R10.84 - Generalized abdominal pain Condition: Stable Disposition: ADMITTED OBSERVATION Admitting Provider: Hans (Hospitalist) Unit Admitted: Medical Floor Instructions: Abdominal Pain ([facility]) Additional Instructions: Transfer patient to medical floor potential PUI and Covid symptoms [facility]: [facility] [NO LOCAL MD] - Follow up as needed
[2020-01-22] MEDS ORDERED: AZITHROMYCIN INJ 500 MG VIAL IV ONE (00:07)
[2020-01-22] MEDS ORDERED: FAMOTIDINE INJ/PF 20 MG/2 ML SDV IV ONE (00:07)
[2020-01-22 00:34] LABS: INTERNATIONAL RATION (INR) 1.23; PROTHROMBIN TIME 15.7 SEC (11.4-15.4)
[2020-01-22] MEDS ORDERED: PROMETHAZINE HCL INJ 25 MG/1 ML VIAL IV ONE (00:54)
[2020-01-22] MEDS ORDERED: HYDROMORPHONE HCL INJ/PF 2 MG/ML AMPULE IV ONE (00:55)
[2020-01-22] MEDS ORDERED: DEXTROSE 40% GEL 15 GM TUBE PO PRN ×2 (02:04)
[2020-01-22] MEDS ORDERED: NORMAL SALINE 1000 ML 1,000 ML IV PRN (02:04)
[2020-01-22] MEDS ORDERED: DEXTROSE 50%-WATER 25 GM/50 ML DISP.SYRIN IV PRN ×2 (02:04)
[2020-01-22] MEDS ORDERED: GLUCAGON,HUMAN RECOMB 1 MG INJ IM PRN (02:04)
[2020-01-22] MEDS ORDERED: POLYETHYLENE GLYCOL 3350 POWDER 17 GM/1 PACKET PO PRN (02:08)
[2020-01-22] MEDS ORDERED: NORMAL SALINE 1000 ML 1,000 ML IV ONE (02:29)
[2020-01-22] MEDS ORDERED: INSULIN LISPRO 100 UNIT/ML 3 ML VIAL IV ONE (02:30)
[2020-01-22 02:32] LABS: A TYPE INFLUENZA AG NEGATIVE (NEGATIVE); B INFLUENZA AG NEGATIVE (NEGATIVE)
--- NOTE | 2020-01-22 02:46 | PDOC H&P ---
History of Present Illness Admission Date/PCP: 01/22/20 01:09 Patient complains of: Abdominal pain History of Present Illness: SARAHI ST is a 34 year old female with history of morbid obesity, FROYLAN, asthma, diabetes mellitus, hypertension, anxiety and depression, who presents to the hospital with complaints of diffuse abdominal pain. The pain started 1 day ago. She describes it as aching pain which lasts several minutes. States it occurs every 15 minutes. Feels like a cramping sensation. Denies prior episodes. No notable aggravating or alleviating factors. Denies any relationship with food consumption. Admits to nausea but no vomiting. Denies any vaginal discharge. Denies any urinary symptoms.. Last sexual activity was in 2015. Preceding onset of this symptoms, she states she ate out on Monday. Subsequently became constipated and took a laxative. After that she had a few episodes of diarrhea on Monday and Monday. Pain started on Monday. In the ER, patient received work-up with CT abdomen pelvis without contrast. This incidentally picked up groundglass opacities in patient's lower lungs. Patient also noted to have hypoxia at 90% on room air. She has chronic issues with her breathing and often gets short of breath but is also quite overweight. She has not noted any recent worsening of her breathing. Noted to be febrile in the ER as well. Past Medical History Cardiac Medical History: Reports: Hypertension Denies: Atrial Fibrillation, Coronary Artery Disease, DVT, Pulmonary Embolism Pulmonary Medical History: Reports: Asthma, Bronchitis, Pneumonia, Sleep Apnea Neurological Medical History: Denies: Seizures Endocrine Medical History: Reports: Diabetes Mellitus Type 2 Denies: Hyperthyroidism, Hypothyroidism GI Medical History: Reports: Gastroesophageal Reflux Disease Denies: Cirrhosis, Hepatitis Musculoskeltal Medical History: Denies: Arthritis, Fibromyalgia Skin Medical History: Denies: Eczema, Psoriasis Psychiatric Medical History: Reports: Attention Deficit Hyperactivity Disorder, Bipolar Disorder, Depression, Post Traumatic Stress Disorder Hematology: Reports: Anemia Denies: Bleeding Tendencies Past Surgical History Past Surgical History: Reports: Adenoidectomy, Tonsillectomy Social History Information Source: Patient Smoking Status: Never Smoker Frequency of Alcohol Use: None Hx Recreational Drug Use: No Drugs: None Hx Prescription Drug Abuse: No - Advance Directive Resuscitation Status: Full Code Family History Family History: Reviewed & Not Pertinent, DM, Hypertension, Other - Brother with venous thrombosis Parental Family History Reviewed: Yes Children Family History Reviewed: Yes Sibling(s) Family History Reviewed.: Yes Medication/Allergy Home Medications: Albuterol Sulfate [Proair HFA] 2 puff IH Q4HP PRN 06/03/17 Metformin HCl [Metformin HCl ER] 1,000 mg PO BID 05/15/18 Sucralfate [Carafate 1 gm Tablet] 1 gm PO ACHS 05/15/18 Amitriptyline HCl [Elavil 25 mg Tablet] 25 mg PO QHS 12/11/19 Budesonide/Formoterol Fumarate [Symbicort HFA 160-4.5 mcg Inhaler 6 gm] 2 puff IH BID 12/11/19 Chlorzoxazone [Lorzone] 750 mg PO BIDP PRN 12/11/19 Hydroxyzine HCl 50 mg PO Q8 12/11/19 Omeprazole Magnesium [Prilosec Otc] 20 mg PO Q6AM 12/11/19 Tizanidine HCl [Zanaflex 4 mg Tablet] 4 mg PO HSP PRN 12/11/19 Sertraline HCl [Zoloft 50 mg Tablet] 50 mg PO DAILY 12/12/19 Furosemide [Lasix 20 mg Tablet] 20 mg PO QAM #30 tablet 12/13/19 Fluconazole [Diflucan] 150 mg PO DAILY 6 Days #6 tablet 01/19/20 Nystatin 1,000,000 unit MC BID 10 Days #90 g 01/19/20 Prednisone [Deltasone 10 mg Tablet] 10 mg PO ASDIR PRN #21 tablet 01/19/20 Allergies/Adverse Reactions: amoxicillin [Amoxicillin] Allergy (Verified 01/21/20 21:01) benzonatate [From Tessalon Perles] Allergy (Verified 01/21/20 21:01) fluticasone [From Advair Diskus] Allergy (Verified 01/21/20 21:01) iloperidone [From Fanapt] Allergy (Verified 01/21/20 21:01) Penicillins Allergy (Verified 01/21/20 21:01) salmeterol [From Advair Diskus] Allergy (Verified 01/21/20 21:01) Review of Systems Constitutional: ABSENT: chills, fatigue, fever(s) - Denies subjective fevers Eyes: ABSENT: visual disturbances Ears: ABSENT: hearing changes Nose, Mouth, and Throat: ABSENT: headache(s) Cardiovascular: ABSENT: chest pain, edema Respiratory: PRESENT: dyspnea - Chronic. ABSENT: cough, sputum Gastrointestinal: PRESENT: abdominal pain, nausea. ABSENT: vomiting Genitourinary: ABSENT: difficulty urinating, dysuria Integumentary: ABSENT: diaphoresis Neurological: ABSENT: dizziness Endocrine: ABSENT: polyuria Hematologic/Lymphatic: ABSENT: lymphadenopathy Allergic/Immunologic: PRESENT: other - Denies nasal congestion. ABSENT: seasonal rhinorrhea Physical Exam Vital Signs: Temp Pulse Resp BP Pulse Ox 100.6 F H 109 H 23 H 140/81 H 91 L 01/21/20 20:39 01/21/20 20:39 01/21/20 23:00 01/21/20 20:39 01/21/20 23:00 Intake & Output 01/20/20 01/21/20 01/22/20 06:59 06:59 06:59 Weight 183.705 kg General appearance: PRESENT: no acute distress, cooperative Head exam: PRESENT: normocephalic Eye exam: PRESENT: EOMI Neck exam: ABSENT: JVD Respiratory exam: PRESENT: clear to auscultation syl, symmetrical, unlabored. ABSENT: crackles, tachypnea, wheezes Cardiovascular exam: PRESENT: +S1, +S2, tachycardia. ABSENT: RRR GI/Abdominal exam: PRESENT: diminished bowel sounds, soft, tenderness - Diffuse all over her abdomen. ABSENT: ascites, distended, firm, guarding, hernia, mass, organolmegaly, rebound, rigid Extremities exam: ABSENT: calf tenderness Neurological exam: PRESENT: alert, awake, oriented to person, oriented to place, oriented to time, oriented to situation Psychiatric exam: PRESENT: anxious. ABSENT: agitated Results Laboratory Results: 01/21/20 22:05 01/21/20 22:05 01/21/20 01/21/20 01/21/20 22:05 22:05 22:05 WBC 18.7 H RBC 3.47 L Hgb 9.3 L Hct 29.2 L MCV 84 MCH 26.7 L MCHC 31.6 L RDW 16.7 H Plt Count 391 Seg Neutrophils % 89.0 H Sodium 137.0 Potassium 4.5 Chloride 97 L Carbon Dioxide 29 Anion Gap 11 BUN 14 Creatinine 0.76 Est GFR ( Amer) > 60 Glucose 295 H Lactic Acid 2.0 Calcium 9.2 Ferritin Total Bilirubin 0.8 AST 27 Alkaline Phosphatase 229 H Total Protein 7.5 Albumin 3.8 01/21/20 22:05 WBC RBC Hgb Hct MCV MCH MCHC RDW Plt Count Seg Neutrophils % Sodium Potassium Chloride Carbon Dioxide Anion Gap BUN Creatinine Est GFR ( Amer) Glucose Lactic Acid Calcium Ferritin 119.00 Total Bilirubin AST Alkaline Phosphatase Total Protein Albumin Impressions: Abdomen/Pelvis CT 01/21/20 21:30 IMPRESSION: No acute process is seen within the abdomen or pelvis. There are stranding at the intra-abdominal wall which may represent evidence of cellulitis. Assessment and Plan - Diagnosis (1) Hypoxia Is this a current diagnosis for this admission?: Yes Plan: SPO2 of 86% on room air. 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 Patient also has super obesity which likely contributing to hypoventilation compounding her hypoxia. We will start her empirically on antibiotics especially given fever D-dimer is also drastically elevated so we will check a CTA of the chest. (2) Abdominal pain, acute, generalized Is this a current diagnosis for this admission?: Yes Plan: Generalized and nonspecific. Normal lipase. CT of abdomen pelvis done without contrast, does not show any worrisome etiologies. Did note abdominal fat pad stranding concerning for panniculitis. PPI, stool softener, MiraLAX as needed, antibiotics for panniculitis/abdominal wall cellulitis. (3) Panniculitis Is this a current diagnosis for this admission?: Yes Plan: Ceftriaxone. Also using topical antifungals at home. Supportive care. Pain control. (4) Suspected COVID-19 virus infection Is this a current diagnosis for this admission?: Yes Plan: Testing for Covid due to hypoxia, ground glass opacity and fever. (5) Sepsis Qualifiers: Sepsis type: sepsis due to unspecified organism Sepsis acute organ dysfunction status: without acute organ dysfunction Qualified Code(s): A41.9 - Sepsis, unspecified organism Is this a current diagnosis for this admission?: Yes Plan: Leukocytosis, febrile, hypoxic, tachycardic. particular infection source is not clear but suspecting pneumonia or abdominal wall cellulitis/panniculitis. Lactic acid is normal. Receiving IV fluids. Antibiotics. Blood cultures obtained. Check urinalysis. (6) Hyperglycemia due to type 2 diabetes mellitus Qualifiers: Diabetes mellitus shelter insulin use: without oil heaterman use Qualified Code(s): E11.65 - Type 2 diabetes mellitus with hyperglycemia Is this a current diagnosis for this admission?: Yes Plan: Takes metformin at home. Sliding scale insulin. Will give an NS bolus right now because she is quite hyperglycemic in the 400s. Continue with Accu-Cheks. Diabetic diet. (7) Cutaneous candidiasis Is this a current diagnosis for this admission?: Yes Plan: Nystatin topical (8) FROYLAN on CPAP Is this a current diagnosis for this admission?: Yes Plan: nocturnal cpap (9) Morbid obesity with BMI of 70 and over, adult Is this a current diagnosis for this admission?: Yes - Time Time Spent with patient: 35 or more minutes Anticipated Discharge Disposition: Home, Self Care Anticipated Discharge Timeframe: within 72 hours
[2020-01-22] MEDS ORDERED: CEFTRIAXONE 2 GM/D5W RTU 2 GM/50 ML RTUPB IV SCH (03:00)
[2020-01-22] MEDS: TRAMADOL HCL 50 MG TABLET PO PRN ×3 (03:59→23:30)
[2020-01-22] MEDS ORDERED: INSULIN LISPRO 100 UNIT/ML 3 ML VIAL SUBCUT ONE ×2 (05:10→12:45)
[2020-01-22] MEDS: PANTOPRAZOLE SODIUM 40 MG TABLET.DR PO SCH (06:12)
[2020-01-22] MEDS: ALBUTEROL SULFATE HFA (90 MCG/PUFF) 8 GM MDI IH SCH ×3 (06:13→17:14)
[2020-01-22 07:13] LABS: HEMATOCRIT 30.5 % (36.0-47.0); HEMOGLOBIN 9.5 g/dL (12.0-15.5); MEAN CORPUSCULAR HEMOGLOBIN 26.5 pg (27.0-33.4); MEAN CORPUSCULAR VOLUME 85 fl (80-97); PLATELET COUNT 372 10^3/uL (150-450); RED BLOOD COUNT 3.58 10^6/uL (3.72-5.28); RED CELL DISTRIBUTION WIDTH 16.9 % (11.5-14.0)
[2020-01-22 07:34] LABS: ALBUMIN 3.9 g/dL (3.5-5.0); ALKALINE PHOSPHATASE 237 U/L (38-126); ANION GAP 15 (5-19); ASPARTATE AMINO TRANSFERASE 33 U/L (14-36); BILIRUBIN,DIRECT 0.4 mg/dL (0.0-0.4); BILIRUBIN,TOTAL 0.7 mg/dL (0.2-1.3); BLOOD UREA NITROGEN 13 mg/dL (7-20); CALCIUM 9.1 mg/dL (8.4-10.2); CARBON DIOXIDE 22 mmol/L (22-30); CHLORIDE 100 mmol/L (98-107); TOTAL PROTEIN 7.9 g/dL (6.3-8.2)
[2020-01-22 07:48] LABS: POTASSIUM 5.9 mmol/L (3.6-5.0)
[2020-01-22 07:49] LABS: GLUCOSE 420 mg/dL (75-110)
[2020-01-22 07:53] LABS: WHITE BLOOD COUNT 21.7 10^3/uL (4.0-10.5)
--- NOTE | 2020-01-22 08:41 | RADIOLOGY REPORT (SQ) ---
EXAM DESCRIPTION: CTA CHEST IMAGES COMPLETED DATE/TIME: 01/22/2020 8:25 am REASON FOR STUDY: hypoxia COMPARISON: 07/30/2019 TECHNIQUE: CT scan of the chest performed using helical scanning technique with dynamic intravenous contrast injection. Images reviewed with lung, soft tissue and bone windows. Reconstructed coronal and sagittal MPR images reviewed. Additional 3 dimensional post-processing performed to develop Maximal Intensity Projection images (WI P). All images stored on PACS. All CT scanners at this facility use dose modulation, iterative reconstruction, and/or weight based d osing when appropriate to reduce radiation dose to as low as reasonably achievable (ALARA). [facility]: Dose Right [facility]: CareDose [facility]: Dose Right [facility]: Teradose 4D [facility]: Sandag CONTRAST TYPE AND DOSE: contrast/concentration: Isovue 350.00 mmol/ml; Total Contrast Delivered: 75. 0 ml; Total Saline Delivered: 68.0 ml Contrast bolus adequate for pulmonary arteries and aorta. RENAL FUNCTION: None required. The patient is less than 50 years old. RADIATION DOSE: CT Rad equipment meets quality standard of care and radiation dose reduction techniq ues were employed. CTDIvol: 12.4 - 41.8 mGy. DLP: 1464 mGy-cm. . LIMITATIONS: Evaluation limited secondary to body habitus and bolus timing. FINDINGS: LUNGS AND PLEURA: Scattered mosaic attenuation throughout the lungs, greatest within the l eft hemithorax. Small left pleural effusion. Mild dependent hypoventilatory change. No pneumothora x. No discrete suspicious nodules or masses. AORTA AND GREAT VESSELS: No aneurysm. No dissection. Visualize great vessel origins are widely cole nt. HEART: Normal right to left ventricular ratio. No pericardial effusion. No calcified coronary ather osclerosis. No significant coronary artery calcifications. PULMONARY ARTERIES: Evaluation of the distal branches somewhat limited due to body habitus and bolus timing. No emboli visualized in the main pulmonary arteries or the segmental branches. HILAR AND MEDIASTINAL STRUCTURES: No identified masses or abnormal nodes. HARDWARE: None in the chest. UPPER ABDOMEN: No acute findings. THYROID AND OTHER SOFT TISSUES: Unremarkable thyroid. No subcutaneous mass. Few mildly prominent ly mph nodes in the bilateral axilla without discrete adenopathy. Obesity. BONES: No acute or significant finding. 3D MIPS: Confirm above findings. OTHER: No other significant finding. IMPRESSION: 1. No evidence of pulmonary embolus. 2. Scattered mosaic attenuation throughout the lungs possibly secondary to small airway disease or h ypoventilatory change. 3. Trace left pleural effusion. COMMENT: Quality ID # [id number]: Final reports with documentation of one or more dose reduction techniques (e.g., Automated exposure control, adjustment of the mA and/or kV according to patient size, use of iterative reconstruction technique) TECHNICAL DOCUMENTATION: JOB ID: [id number] 2010 [employer]- All Rights Reserved Reading location - IP/workstation name: [email or web address]
[2020-01-22] MEDS: NYSTATIN/TRIAMCIN CREAM 15 GM TP SCH ×4 (09:07→22:33)
[2020-01-22] MEDS: CHOLECALCIFEROL (D3) 1,000 UNIT (25 MCG) TABLET PO SCH (09:08)
[2020-01-22] MEDS: DOCUSATE SODIUM 100 MG CAPSULE PO SCH ×2 (09:09→17:15)
[2020-01-22] MEDS: ASCORBIC ACID 500 MG TABLET PO SCH ×2 (09:09→17:14)
[2020-01-22] MEDS: ZINC SULFATE 220 MG CAPSULE PO SCH (09:09)
[2020-01-22] MEDS: INSULIN LISPRO 100 UNIT/ML 3 ML VIAL SUBCUT SCH ×4 (09:23→22:32)
[2020-01-22] MEDS ORDERED: ENOXAPARIN SODIUM INJ 40 MG/0.4 ML DISP.SYRIN SUBCUT SCH (10:00)
[2020-01-22] MEDS ORDERED: OXYCODONE-ACETAMINOPHEN 5-325 MG TABLET ONE (12:32)
[2020-01-22] MEDS: OXYCODONE-ACETAMINOPHEN 5-325 MG TABLET PO PRN ×2 (12:45→20:30)
[2020-01-22] MEDS: LINEZOLID 600 MG/300 ML RTUPB IV SCH (17:16)
[2020-01-22] MEDS: ONDANSETRON HCL INJ/PF 4 MG/2 ML SDV IV PRN (19:44)
[2020-01-22] MEDS: MAG HYDROX/AL HYDROX/SIMETH SUSP 30 ML UDCUP PO PRN (19:44)
[2020-01-22 19:48] LABS: APPEARANCE,URINE SLIGHTLY-CLOUDY; BILIRUBIN,URINE NEGATIVE (NEGATIVE); COLOR,URINE YELLOW; GLUCOSE, URINE >=500 mg/dL (NEGATIVE); KETONES,URINE NEGATIVE (NEGATIVE); PROTEIN,URINE 100 mg/dL (NEGATIVE); URINE SPECIFIC GRAVITY 1.042; UROBILINOGEN,URINE NEGATIVE mg/dL (<2.0)
[2020-01-22] MEDS ORDERED: VANCOMYCIN HCL INJ 1000 MG VIAL IV SCH (22:00)
[2020-01-22] MEDS: HEPARIN SOD (PORCINE) 5,000 UNIT/ML 1 ML VIAL SUBCUT SCH (22:32)
[2020-01-22] MEDS: AZITHROMYCIN 250 MG TABLET PO SCH (22:33)
[2020-01-22] MEDS: TEMAZEPAM 7.5 MG CAPSULE PO PRN (23:30)
[2020-01-23] MEDS: OXYCODONE-ACETAMINOPHEN 5-325 MG TABLET PO PRN (04:36)
[2020-01-23] MEDS: LINEZOLID 600 MG/300 ML RTUPB IV SCH ×2 (06:04→17:13)
[2020-01-23] MEDS: PANTOPRAZOLE SODIUM 40 MG TABLET.DR PO SCH (06:04)
[2020-01-23 07:05] LABS: HEMOGLOBIN 9.3 g/dL (12.0-15.5); MEAN CORPUSCULAR HEMOGLOBIN 26.1 pg (27.0-33.4); MEAN CORPUSCULAR HGB CONC 31.1 g/dL (32.0-36.0); MEAN CORPUSCULAR VOLUME 84 fl (80-97); PLATELET COUNT 379 10^3/uL (150-450); RED BLOOD COUNT 3.57 10^6/uL (3.72-5.28); RED CELL DISTRIBUTION WIDTH 16.7 % (11.5-14.0); WHITE BLOOD COUNT 20.1 10^3/uL (4.0-10.5)
[2020-01-23 07:31] LABS: ANION GAP 11 (5-19); BLOOD UREA NITROGEN 19 mg/dL (7-20); CARBON DIOXIDE 25 mmol/L (22-30); CHLORIDE 99 mmol/L (98-107); GLUCOSE 310 mg/dL (75-110)
[2020-01-23] MEDS: INSULIN LISPRO 100 UNIT/ML 3 ML VIAL SUBCUT SCH ×4 (08:48→22:46)
[2020-01-23] MEDS: TRAMADOL HCL 50 MG TABLET PO PRN (08:49)
[2020-01-23] MEDS: CHOLECALCIFEROL (D3) 1,000 UNIT (25 MCG) TABLET PO SCH (10:58)
[2020-01-23] MEDS: SERTRALINE HCL 50 MG TABLET PO SCH (11:08)
[2020-01-23] MEDS: ASCORBIC ACID 500 MG TABLET PO SCH ×2 (11:08→17:12)
[2020-01-23] MEDS: FERROUS SULFATE 325 MG TABLET PO SCH (11:09)
[2020-01-23] MEDS: FLUTICASONE/VILANTEROL 100-25 MCG/DOSE IH SCH (11:09)
[2020-01-23] MEDS: DOCUSATE SODIUM 100 MG CAPSULE PO SCH ×2 (11:09→17:12)
[2020-01-23] MEDS: HEPARIN SOD (PORCINE) 5,000 UNIT/ML 1 ML VIAL SUBCUT SCH ×2 (11:10→22:46)
[2020-01-23] MEDS: NYSTATIN/TRIAMCIN CREAM 15 GM TP SCH ×4 (11:10→22:47)
[2020-01-23] MEDS: ZINC SULFATE 220 MG CAPSULE PO SCH (11:11)
[2020-01-23] MEDS: ALBUTEROL SULFATE HFA (90 MCG/PUFF) 8 GM MDI IH SCH ×2 (12:37→17:13)
--- NOTE | 2020-01-23 13:51 | PDOC PROGRESS REPORT ---
Subjective Date:: 01/23/20 Subjective:: History of Present Illness: SARAHI ST is a 34 year old female with history of morbid obesity, FROYLAN, asthma, diabetes mellitus, hypertension, anxiety and depression, who presents to the hospital with complaints of diffuse abdominal pain. The pain started 1 day ago. She describes it as aching pain which lasts several minutes. States it occurs every 15 minutes. Feels like a cramping sensation. Denies prior episodes. No notable aggravating or alleviating factors. Denies any relationship with food consumption. Admits to nausea but no vomiting. Denies any vaginal discharge. Denies any urinary symptoms.. Last sexual activity was in 2015. Preceding onset of this symptoms, she states she ate out on Monday. Subsequently became constipated and took a laxative. After that she had a few episodes of diarrhea on Monday and Monday. Pain started on Monday. In the ER, patient received work-up with CT abdomen pelvis without contrast. This incidentally picked up groundglass opacities in patient's lower lungs. Patient also noted to have hypoxia at 90% on room air. She has chronic issues with her breathing and often gets short of breath but is also quite overweight. She has not noted any recent worsening of her breathing. Noted to be febrile in the ER as well. Interval history: 01/23/2020: Patient was seen and examined. She still with high white count. No fever. Complains of abdominal wall pain. Reason For Visit: PANNICULITIS,HYPOXIA Physical Exam Vital Signs: Temp Pulse Resp BP Pulse Ox 98.3 F 108 H 20 143/56 H 91 L 01/23/20 11:51 01/23/20 11:51 01/23/20 11:51 01/23/20 11:51 01/23/20 11:51 Intake & Output 01/22/20 01/23/20 01/24/20 06:59 06:59 06:59 Intake Total 1050 2220 Balance 1050 2220 Weight 405 lb 262 lb 9.129 oz Exam: General appearance: PRESENT: no acute distress, cooperative Head exam: PRESENT: normocephalic Eye exam: PRESENT: EOMI Neck exam: ABSENT: JVD Respiratory exam: PRESENT: clear to auscultation syl, symmetrical, unlabored. ABSENT: crackles, tachypnea, wheezes Cardiovascular exam: PRESENT: +S1, +S2, tachycardia. ABSENT: RRR GI/Abdominal exam: PRESENT: diminished bowel sounds, soft, tenderness - Diffuse all over her abdomen. ABSENT: ascites, distended, firm, guarding, hernia, mass, organolmegaly, rebound, rigid Extremities exam: ABSENT: calf tenderness Neurological exam: PRESENT: alert, awake, oriented to person, oriented to place, oriented to time, oriented to situation Psychiatric exam: PRESENT: anxious. ABSENT: agitated Results Laboratory Results: 01/23/20 06:40 01/23/20 06:40 01/22/20 01/22/20 01/23/20 13:43 19:17 06:40 WBC 20.1 H RBC 3.57 L Hgb 9.3 L Hct 30.0 L MCV 84 MCH 26.1 L MCHC 31.1 L RDW 16.7 H Plt Count 379 Sodium Potassium Chloride Carbon Dioxide Anion Gap BUN Creatinine Est GFR ( Amer) Glucose Lactic Acid 2.1 Calcium Urine Color YELLOW Urine Appearance SLIGHTLY-CLOUDY Urine pH 6.0 Ur Specific [place] 1.042 Urine Protein 100 H Urine Glucose (UA) >=500 H Urine Ketones NEGATIVE Urine Blood LARGE H Urine RBC (Auto) >182 01/23/20 06:40 WBC RBC Hgb Hct MCV MCH MCHC RDW Plt Count Sodium 134.5 L Potassium 5.0 Chloride 99 Carbon Dioxide 25 Anion Gap 11 BUN 19 Creatinine 0.79 Est GFR ( Amer) > 60 Glucose 310 H Lactic Acid Calcium 9.0 Urine Color Urine Appearance Urine pH Ur Specific [place] Urine Protein Urine Glucose (UA) Urine Ketones Urine Blood Urine RBC (Auto) 01/21/20 22:05 Blood Blood Culture (PCR) - Final Enterococcus Species 01/21/20 22:52 Blood Blood Culture (PCR) - Final Enterococcus Species 01/22/20 01:30 Blood Blood Culture (PCR) - Final Enterococcus Species Staphylococcus Species Impressions: Abdomen/Pelvis CT 01/21/20 21:30 IMPRESSION: No acute process is seen within the abdomen or pelvis. There are stranding at the intra-abdominal wall which may represent evidence of cellulitis. Chest/Abdomen CTA 01/22/20 00:00 IMPRESSION: 1. No evidence of pulmonary embolus. 2. Scattered mosaic attenuation throughout the lungs possibly secondary to small airway disease or hypoventilatory change. 3. Trace left pleural effusion. Assessment and Plan - Diagnosis (1) Hypoxia Is this a current diagnosis for this admission?: Yes (2) Hyperglycemia due to type 2 diabetes mellitus Qualifiers: Diabetes mellitus longterm insulin use: without adjunct faculty for medical terminology use Qualified Code(s): E11.65 - Type 2 diabetes mellitus with hyperglycemia Is this a current diagnosis for this admission?: Yes (3) Morbid obesity with BMI of 70 and over, adult Is this a current diagnosis for this admission?: Yes (4) Panniculitis Is this a current diagnosis for this admission?: Yes (5) Suspected COVID-19 virus infection Is this a current diagnosis for this admission?: Yes (6) Abdominal pain, acute, generalized Is this a current diagnosis for this admission?: Yes (7) FROYLAN on CPAP Is this a current diagnosis for this admission?: Yes (8) Cutaneous candidiasis Is this a current diagnosis for this admission?: Yes (9) Sepsis Qualifiers: Sepsis type: sepsis due to unspecified organism Sepsis acute organ dysfunction status: without acute organ dysfunction Qualified Code(s): A41.9 - Sepsis, unspecified organism Is this a current diagnosis for this admission?: Yes - Plan Summary Summary: (1) Hypoxia SPO2 of 86% on room air. 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 Patient also has super obesity which likely contributing to hypoventilation compounding her hypoxia. Blood cultures positive for staph species and Enterococcus. Continue current antibiotics (2) Abdominal pain, acute, generalized Generalized and nonspecific. Normal lipase. CT of abdomen pelvis done without contrast, does not show any worrisome etiologies. Did note abdominal fat pad stranding concerning for panniculitis. PPI, stool softener, MiraLAX as needed, antibiotics for panniculitis/abdominal wall cellulitis. (3) Panniculitis Continue current antibiotics. Supportive treatment. Pain control. (4) Suspected COVID-19 virus infection Testing for Covid due to hypoxia, negative. (5) Sepsis Leukocytosis, febrile, hypoxic, tachycardic. Continue current antibiotics. Continue IV fluids. (6) Hyperglycemia due to type 2 diabetes mellitus Takes metformin at home. Sliding scale insulin. Continue with Accu-Cheks. Diabetic diet. (7) Cutaneous candidiasis Nystatin topical (8) FROYLAN on CPAP nocturnal cpap (9) Morbid obesity with BMI of 70 and over, adult Recommend lifestyle modifications - Time Anticipated Discharge Disposition: Home, Self Care Anticipated Discharge Timeframe: within 72 hours
[2020-01-23] MEDS: MORPHINE SULFATE 10 MG/ML INJ IV PRN ×2 (15:59→20:53)
[2020-01-23] MEDS: AZITHROMYCIN 250 MG TABLET PO SCH (22:45)
[2020-01-24] MEDS: ALBUTEROL SULFATE HFA (90 MCG/PUFF) 8 GM MDI IH SCH ×5 (00:14→20:02)
[2020-01-24] MEDS: MORPHINE SULFATE 10 MG/ML INJ IV PRN ×3 (05:50→20:00)
[2020-01-24] MEDS: LINEZOLID 600 MG/300 ML RTUPB IV SCH ×2 (05:52→20:02)
[2020-01-24] MEDS: PANTOPRAZOLE SODIUM 40 MG TABLET.DR PO SCH (05:53)
[2020-01-24 06:12] LABS: HEMATOCRIT 28.1 % (36.0-47.0); HEMOGLOBIN 8.8 g/dL (12.0-15.5); MEAN CORPUSCULAR HEMOGLOBIN 26.1 pg (27.0-33.4); MEAN CORPUSCULAR HGB CONC 31.3 g/dL (32.0-36.0); MEAN CORPUSCULAR VOLUME 84 fl (80-97); PLATELET COUNT 373 10^3/uL (150-450); RED BLOOD COUNT 3.36 10^6/uL (3.72-5.28); RED CELL DISTRIBUTION WIDTH 17.2 % (11.5-14.0); WHITE BLOOD COUNT 17.5 10^3/uL (4.0-10.5)
[2020-01-24 07:06] LABS: ANION GAP 11 (5-19); BLOOD UREA NITROGEN 15 mg/dL (7-20); CALCIUM 8.8 mg/dL (8.4-10.2); CARBON DIOXIDE 25 mmol/L (22-30); CHLORIDE 99 mmol/L (98-107); GLUCOSE 203 mg/dL (75-110); POTASSIUM 4.8 mmol/L (3.6-5.0)
[2020-01-24] MEDS: INSULIN LISPRO 100 UNIT/ML 3 ML VIAL SUBCUT SCH ×4 (08:21→22:03)
[2020-01-24] MEDS: CHOLECALCIFEROL (D3) 1,000 UNIT (25 MCG) TABLET PO SCH (09:05)
[2020-01-24] MEDS: SERTRALINE HCL 50 MG TABLET PO SCH (09:05)
[2020-01-24] MEDS: DOCUSATE SODIUM 100 MG CAPSULE PO SCH ×2 (09:05→20:03)
[2020-01-24] MEDS: ZINC SULFATE 220 MG CAPSULE PO SCH (09:06)
[2020-01-24] MEDS: FERROUS SULFATE 325 MG TABLET PO SCH (09:06)
[2020-01-24] MEDS: FLUTICASONE/VILANTEROL 100-25 MCG/DOSE IH SCH (09:06)
[2020-01-24] MEDS: HEPARIN SOD (PORCINE) 5,000 UNIT/ML 1 ML VIAL SUBCUT SCH ×2 (09:06→22:03)
[2020-01-24] MEDS: ASCORBIC ACID 500 MG TABLET PO SCH ×2 (09:06→20:03)
[2020-01-24] MEDS: NYSTATIN/TRIAMCIN CREAM 15 GM TP SCH ×4 (09:13→21:56)
--- NOTE | 2020-01-24 10:51 | PDOC PROGRESS REPORT ---
Subjective Date:: 01/24/20 Subjective:: History of Present Illness: SARAHI ST is a 34 year old female with history of morbid obesity, FROYLAN, asthma, diabetes mellitus, hypertension, anxiety and depression, who presents to the hospital with complaints of diffuse abdominal pain. The pain started 1 day ago. She describes it as aching pain which lasts several minutes. States it occurs every 15 minutes. Feels like a cramping sensation. Denies prior episodes. No notable aggravating or alleviating factors. Denies any relationship with food consumption. Admits to nausea but no vomiting. Denies any vaginal discharge. Denies any urinary symptoms.. Last sexual activity was in 2015. Preceding onset of this symptoms, she states she ate out on Monday. Subsequently became constipated and took a laxative. After that she had a few episodes of diarrhea on Monday and Monday. Pain started on Monday. In the ER, patient received work-up with CT abdomen pelvis without contrast. This incidentally picked up groundglass opacities in patient's lower lungs. Patient also noted to have hypoxia at 90% on room air. She has chronic issues with her breathing and often gets short of breath but is also quite overweight. She has not noted any recent worsening of her breathing. Noted to be febrile in the ER as well. Interval history: 01/23/2020: Patient was seen and examined. She still with high white count. No fever. Complains of abdominal wall pain. 01/24/2020: Patient was seen and examined. White count is improving. No fever. Complains of abdominal wall pain. Reason For Visit: PANNICULITIS,HYPOXIA Physical Exam Vital Signs: Temp Pulse Resp BP Pulse Ox 98.5 F 100 22 H 136/69 H 96 01/23/20 23:07 01/23/20 23:07 01/23/20 23:07 01/23/20 23:07 01/23/20 23:07 Intake & Output 01/23/20 01/24/20 01/25/20 06:59 06:59 06:59 Intake Total 2220 970 300 Balance 2220 970 300 Weight 262 lb 9.129 oz 397 lb 4.368 oz Exam: General appearance: PRESENT: no acute distress, cooperative Head exam: PRESENT: normocephalic Eye exam: PRESENT: EOMI Neck exam: ABSENT: JVD Respiratory exam: PRESENT: clear to auscultation syl, symmetrical, unlabored. ABSENT: crackles, tachypnea, wheezes Cardiovascular exam: PRESENT: +S1, +S2, tachycardia. ABSENT: RRR GI/Abdominal exam: PRESENT: diminished bowel sounds, soft, tenderness - Diffuse all over her abdomen. ABSENT: ascites, distended, firm, guarding, hernia, mass, organolmegaly, rebound, rigid Extremities exam: ABSENT: calf tenderness Neurological exam: PRESENT: alert, awake, oriented to person, oriented to place, oriented to time, oriented to situation Psychiatric exam: PRESENT: anxious. ABSENT: agitated Results Laboratory Results: 01/24/20 05:28 01/24/20 05:28 01/24/20 01/24/20 05:28 05:28 WBC 17.5 H RBC 3.36 L Hgb 8.8 L Hct 28.1 L MCV 84 MCH 26.1 L MCHC 31.3 L RDW 17.2 H Plt Count 373 Sodium 134.7 L Potassium 4.8 Chloride 99 Carbon Dioxide 25 Anion Gap 11 BUN 15 Creatinine 0.81 Est GFR ( Amer) > 60 Glucose 203 H Calcium 8.8 01/22/20 01:30 Blood Blood Culture (PCR) - Final Enterococcus Species Staphylococcus Species 01/21/20 22:05 Blood Blood Culture (PCR) - Final Enterococcus Species 01/21/20 22:05 Blood Blood Culture - Final Enterococcus Faecalis(Group D) 01/21/20 22:52 Blood Blood Culture (PCR) - Final Enterococcus Species 01/21/20 22:52 Blood Blood Culture - Final Enterococcus Faecalis(Group D) Impressions: Abdomen/Pelvis CT 01/21/20 21:30 IMPRESSION: No acute process is seen within the abdomen or pelvis. There are stranding at the intra-abdominal wall which may represent evidence of cellulitis. Chest/Abdomen CTA 01/22/20 00:00 IMPRESSION: 1. No evidence of pulmonary embolus. 2. Scattered mosaic attenuation throughout the lungs possibly secondary to small airway disease or hypoventilatory change. 3. Trace left pleural effusion. 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 use Qualified Code(s): E11.65 - Type 2 diabetes mellitus with hyperglycemia Is this a current diagnosis for this admission?: Yes (3) Morbid obesity with BMI of 70 and over, adult Is this a current diagnosis for this admission?: Yes (4) Panniculitis Is this a current diagnosis for this admission?: Yes (5) Suspected COVID-19 virus infection Is this a current diagnosis for this admission?: Yes (6) Abdominal pain, acute, generalized Is this a current diagnosis for this admission?: Yes (7) FROYLAN on CPAP Is this a current diagnosis for this admission?: Yes (8) Cutaneous candidiasis Is this a current diagnosis for this admission?: Yes (9) Sepsis Qualifiers: Sepsis type: sepsis due to unspecified organism Sepsis acute organ dysfunction status: without acute organ dysfunction Qualified Code(s): A41.9 - Sepsis, unspecified organism Is this a current diagnosis for this admission?: Yes - Plan Summary Summary: (1) Hypoxia SPO2 was 86% on room air. 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 Patient also has super obesity which likely contributing to hypoventilation compounding her hypoxia. Blood cultures positive for staph species and Enterococcus. Continue current antibiotics (2) Abdominal pain, acute, generalized Generalized and nonspecific. Normal lipase. CT of abdomen pelvis done without contrast, does not show any worrisome etiologies. Did note abdominal fat pad stranding concerning for panniculitis. PPI, stool softener, MiraLAX as needed, antibiotics for panniculitis/abdominal wall cellulitis. (3) Panniculitis Continue current antibiotics. Supportive treatment. Pain control. (4) Suspected COVID-19 virus infection Testing for Covid due to hypoxia, negative. (5) Sepsis Leukocytosis, febrile, hypoxic, tachycardic. Continue current antibiotics. Continue IV fluids. Blood culture 3 out of 3 positive for Enterococcus. Continue current antibiotics. Check echocardiogram. Repeat blood cultures. (6) Hyperglycemia due to type 2 diabetes mellitus Takes metformin at home. Sliding scale insulin. Continue with Accu-Cheks. Diabetic diet. (7) Cutaneous candidiasis Nystatin topical (8) FROYLAN on CPAP nocturnal cpap (9) Morbid obesity with BMI of 70 and over, adult Recommend lifestyle modifications - Time Anticipated Discharge Disposition: Home, Self Care Anticipated Discharge Timeframe: within 72 hours
--- NOTE | 2020-01-24 16:53 | XCELERA REPORT ---
[address] [address] Transthoracic Echocardiogram Report Name: SARAHI ST Age: 34 yrs Gender: Female : 1985 Patient Status: Inpatient Patient Location: [address] [place] [address] Study Date: 01/24/2020 02:15 PM History: Enterococcal bacteremia Height: 62 in Weight: 397 lb BSA: 2.6 m2 Procedure: A complete two-dimensional transthoracic echocardiogram was performed (2D, M-mode, spectral and color flow Doppler). The study was technically difficult with many images being suboptimal in quality. Reason For Study: enterococcal bacteremia Previous Evaluation: A previous study was performed on 05/22/2018 LVEF 65%. History: Bacteremia. Ordering Physician: GUADALUPE ISABEL Performed By: Xochitl Chávez Interpretation Summary Study quality does not enable exclusion of vegetations. Also Aortic valve is poorly imaged and Doppler interrogation is suboptimal. Consider MATTHEW if clinically indicated. Left ventricular systolic function is normal. The Ejection Fraction estimate is 55-60% There is a mild amount of mitral regurgitation Increased velocity across the Aortic valve by doppler. Doppler interrogation of the aortic valve is suboptimal. There is a moderate amount of aortic regurgitation There are no echocardiographic or Doppler indications for cardiac tamponade Study quality does not enable exclusion of vegetations. Also Aortic valve is poorly imaged and Doppler interrogation is suboptimal. Consider MATTHEW if clinically indicated. MMode/2D Measurements & Calculations RVDd: 2.8 cm LVIDd: 5.6 cm FS: 39.5 % Ao root diam: 3.1 cm IVSd: 1.0 cm LVIDs: 3.4 cm EDV(Teich): 150.8 ml Ao root area: 7.6 cm2 LVPWd: 0.94 cm ESV(Teich): 46.1 ml LA dimension: 3.8 cm EF(Teich): 69.4 % LVOT diam: 1.9 cm LVOT area: 2.8 cm2 Doppler Measurements & Calculations MV E max benji: MV P1/2t max benji: Ao V2 max: LV V1 max P.7 cm/sec 215.8 cm/sec 242.4 cm/sec 12.9 mmHg MV A max benji: MV P1/2t: 45.8 msec Ao max PG: LV V1 mean P.1 cm/sec MVA(P1/2t): 4.8 cm2 23.5 mmHg 5.5 mmHg MV E/A: 2.0 MV dec slope: Ao V2 mean: LV V1 max: 146.6 cm/sec 179.5 cm/sec 1380 cm/sec2 Ao mean PG: LV V1 mean: MV dec time: 0.16 sec 10.4 mmHg 106.4 cm/sec Ao V2 VTI: 37.9 cm LV V1 VTI: 33.4 cm STEPHENIE(I,D): 2.5 cm2 STEPHENIE(V,D): 2.1 cm2 SV(LVOT): 93.8 ml PA V2 max: MV P1/2t-pr_phl: 95.2 cm/sec 45.8 msec PA max P.6 mmHg Left Ventricle The left ventricle is normal in size. There is normal left ventricular wall thickness. Left ventricular systolic function is normal. The Ejection Fraction estimate is 55-60%. Doppler measurements suggest normal left ventricular diastolic function. Regional wall motion abnormalities cannot be excluded due to limited visualization. Right Ventricle The right ventricle is normal in size and function. Atria The right atrium is normal. The left atrial size is normal. Mitral Valve Mitral valve appears thickened and echogenic. There is a mild amount of mitral regurgitation. Aortic Valve The aortic valve is not well visualized secondary to technical limitations. Increased velocity across the Aortic valve by doppler. There is a moderate amount of aortic regurgitation. Doppler interrogation of the aortic valve is suboptimal. Tricuspid Valve The tricuspid valve is not well visualized secondary to technical limitations. Pulmonic Valve The pulmonic valve is not well visualized. There is no pulmonic valvular stenosis. There is a mild amount of pulmonic regurgitation. Great Vessels The aortic root is normal size. Effusions Small pericardial effusion. There are no echocardiographic or Doppler indications for cardiac tamponade. : GUADALUPE ISBAEL Anil
[2020-01-24] MEDS: NYSTATIN TOPICAL POWDER 15 GM TP SCH (20:03)
[2020-01-24] MEDS: MAG HYDROX/AL HYDROX/SIMETH SUSP 30 ML UDCUP PO PRN (20:08)
[2020-01-24] MEDS: AZITHROMYCIN 250 MG TABLET PO SCH (22:03)
[2020-01-24] MEDS: ACETAMINOPHEN 325 MG TABLET PO PRN (22:03)
[2020-01-25] MEDS: ALBUTEROL SULFATE HFA (90 MCG/PUFF) 8 GM MDI IH SCH ×4 (01:23→17:53)
[2020-01-25] MEDS: PANTOPRAZOLE SODIUM 40 MG TABLET.DR PO SCH (05:51)
[2020-01-25] MEDS: LINEZOLID 600 MG/300 ML RTUPB IV SCH (05:51)
[2020-01-25] MEDS: MORPHINE SULFATE 10 MG/ML INJ IV PRN ×3 (06:06→20:04)
[2020-01-25] MEDS ORDERED: (PENDING PHARMACY ID) (Oxycodone Hcl/Acetaminophen [Percocet 10-325 Mg Tablet] 1 EACH Tabl PO PRN (08:51)
[2020-01-25 09:26] LABS: HEMATOCRIT 28.4 % (36.0-47.0); HEMOGLOBIN 8.7 g/dL (12.0-15.5); MEAN CORPUSCULAR HEMOGLOBIN 25.9 pg (27.0-33.4); MEAN CORPUSCULAR HGB CONC 30.7 g/dL (32.0-36.0); MEAN CORPUSCULAR VOLUME 84 fl (80-97); PLATELET COUNT 368 10^3/uL (150-450); RED BLOOD COUNT 3.37 10^6/uL (3.72-5.28); RED CELL DISTRIBUTION WIDTH 17.1 % (11.5-14.0); WHITE BLOOD COUNT 13.6 10^3/uL (4.0-10.5)
[2020-01-25] MEDS: FLUTICASONE/VILANTEROL 100-25 MCG/DOSE IH SCH (09:27)
[2020-01-25] MEDS: NYSTATIN/TRIAMCIN CREAM 15 GM TP SCH ×4 (09:27→23:08)
[2020-01-25] MEDS: NYSTATIN TOPICAL POWDER 15 GM TP SCH ×2 (09:28→17:40)
[2020-01-25] MEDS: ASCORBIC ACID 500 MG TABLET PO SCH ×2 (09:29→17:50)
[2020-01-25] MEDS: DOCUSATE SODIUM 100 MG CAPSULE PO SCH ×2 (09:29→17:50)
[2020-01-25] MEDS: HEPARIN SOD (PORCINE) 5,000 UNIT/ML 1 ML VIAL SUBCUT SCH ×2 (09:29→22:33)
[2020-01-25] MEDS: SERTRALINE HCL 50 MG TABLET PO SCH (09:29)
[2020-01-25] MEDS: CHOLECALCIFEROL (D3) 1,000 UNIT (25 MCG) TABLET PO SCH (09:29)
[2020-01-25] MEDS: ZINC SULFATE 220 MG CAPSULE PO SCH (09:29)
[2020-01-25] MEDS: FERROUS SULFATE 325 MG TABLET PO SCH (09:29)
[2020-01-25] MEDS: INSULIN LISPRO 100 UNIT/ML 3 ML VIAL SUBCUT SCH ×4 (09:29→22:32)
[2020-01-25 09:38] LABS: ANION GAP 9 (5-19); BLOOD UREA NITROGEN 13 mg/dL (7-20); CALCIUM 8.9 mg/dL (8.4-10.2); CARBON DIOXIDE 28 mmol/L (22-30); CHLORIDE 99 mmol/L (98-107); GLUCOSE 207 mg/dL (75-110); POTASSIUM 4.7 mmol/L (3.6-5.0)
[2020-01-25] MEDS ORDERED: PRAZOSIN HCL 1 MG PO SCH (10:00)
[2020-01-25] MEDS ORDERED: DIAZEPAM 10 MG PO SCH (10:00)
[2020-01-25] MEDS ORDERED: LIDOCAINE 1% INJ-PF (10 MG/ML) 30 ML SDV ONE (12:27)
[2020-01-25] MEDS: HYDROXYZINE PAMOATE 50 MG CAPSULE PO SCH ×2 (13:38→22:32)
[2020-01-25] MEDS ORDERED: HYDROXYZINE HCL 50 MG PO SCH (14:00)
--- NOTE | 2020-01-25 14:01 | RADIOLOGY REPORT (SQ) ---
EXAM DESCRIPTION: CHEST SINGLE VIEW IMAGES COMPLETED DATE/TIME: 01/25/2020 12:39 pm REASON FOR STUDY: cl placement COMPARISON: 06/17/2019 EXAM PARAMETERS: NUMBER OF VIEWS: One view. TECHNIQUE: Single frontal radiographic view of the chest acquired. RADIATION DOSE: NA LIMITATIONS: None. FINDINGS: LUNGS AND PLEURA: Increasing small left pleural effusion. Patchy bibasilar opacities, sta ble. No pneumothorax. MEDIASTINUM AND HILAR STRUCTURES: No masses. Contour normal. HEART AND VASCULAR STRUCTURES: Heart normal in size. Normal vasculature. BONES: No acute findings. HARDWARE: New right IJ central venous catheter with tip at the right atrium. OTHER: No other significant finding. IMPRESSION: New right central venous catheter with tip at the right atrium. No pneumothorax. Mild pulmonary edema with increasing small left pleural effusion. TECHNICAL DOCUMENTATION: JOB ID: [id number] [employer]- All Rights Reserved Reading location - IP/workstation name: [email or web address]
[2020-01-25] MEDS: OXYCODONE-ACETAMINOPHEN 5-325 MG TABLET PO PRN ×2 (15:23→22:49)
--- NOTE | 2020-01-25 15:29 | PDOC PROGRESS REPORT ---
Subjective Date:: 01/25/20 Subjective:: History of Present Illness: SARAHI ST is a 34 year old female with history of morbid obesity, FROYLAN, asthma, diabetes mellitus, hypertension, anxiety and depression, who presents to the hospital with complaints of diffuse abdominal pain. The pain started 1 day ago. She describes it as aching pain which lasts several minutes. States it occurs every 15 minutes. Feels like a cramping sensation. Denies prior episodes. No notable aggravating or alleviating factors. Denies any relationship with food consumption. Admits to nausea but no vomiting. Denies any vaginal discharge. Denies any urinary symptoms.. Last sexual activity was in 2015. Preceding onset of this symptoms, she states she ate out on Monday. Subsequently became constipated and took a laxative. After that she had a few episodes of diarrhea on Monday and Monday. Pain started on Monday. In the ER, patient received work-up with CT abdomen pelvis without contrast. This incidentally picked up groundglass opacities in patient's lower lungs. Patient also noted to have hypoxia at 90% on room air. She has chronic issues with her breathing and often gets short of breath but is also quite overweight. She has not noted any recent worsening of her breathing. Noted to be febrile in the ER as well. Interval history: 01/23/2020: Patient was seen and examined. She still with high white count. No fever. Complains of abdominal wall pain. 01/24/2020: Patient was seen and examined. White count is improving. No fever. Complains of abdominal wall pain. 01/17/2020: Patient was seen and examined. White count is improving. Afebrile. Improving overall. Repeat cultures still positive for Enterococcus. Reason For Visit: HYPOXIA,FEVER Physical Exam Vital Signs: Temp Pulse Resp BP Pulse Ox 98.8 F 102 H 24 H 141/58 H 94 01/25/20 11:34 01/25/20 11:34 01/25/20 11:34 01/25/20 11:34 01/25/20 11:34 Intake & Output 01/24/20 01/25/20 01/26/20 06:59 06:59 06:59 Intake Total 970 1820 600 Balance 970 1820 600 Weight 397 lb 4.368 oz 397 lb 4.368 oz 397 lb 4.368 oz Exam: General appearance: PRESENT: no acute distress, cooperative Head exam: PRESENT: normocephalic Eye exam: PRESENT: EOMI Neck exam: ABSENT: JVD Respiratory exam: PRESENT: clear to auscultation syl, symmetrical, unlabored. ABSENT: crackles, tachypnea, wheezes Cardiovascular exam: PRESENT: +S1, +S2, tachycardia. ABSENT: RRR GI/Abdominal exam: PRESENT: diminished bowel sounds, soft, tenderness - Diffuse all over her abdomen. ABSENT: ascites, distended, firm, guarding, hernia, mass, organolmegaly, rebound, rigid Extremities exam: ABSENT: calf tenderness Neurological exam: PRESENT: alert, awake, oriented to person, oriented to place, oriented to time, oriented to situation Psychiatric exam: PRESENT: anxious. ABSENT: agitated Results Laboratory Results: 01/25/20 04:15 01/25/20 04:15 01/25/20 01/25/20 04:15 04:15 WBC 13.6 H RBC 3.37 L Hgb 8.7 L Hct 28.4 L MCV 84 MCH 25.9 L MCHC 30.7 L RDW 17.1 H Plt Count 368 Sodium 135.8 L Potassium 4.7 Chloride 99 Carbon Dioxide 28 Anion Gap 9 BUN 13 Creatinine 0.83 Est GFR ( Amer) > 60 Glucose 207 H Calcium 8.9 01/24/20 11:12 Blood Blood Culture (PCR) - Final Enterococcus Species Impressions: Abdomen/Pelvis CT 01/21/20 21:30 IMPRESSION: No acute process is seen within the abdomen or pelvis. There are stranding at the intra-abdominal wall which may represent evidence of cellulitis. Chest/Abdomen CTA 01/22/20 00:00 IMPRESSION: 1. No evidence of pulmonary embolus. 2. Scattered mosaic attenuation throughout the lungs possibly secondary to small airway disease or hypoventilatory change. 3. Trace left pleural effusion. Chest X-Ray 01/25/20 00:00 IMPRESSION: New right central venous catheter with tip at the right atrium. No pneumothorax. Mild pulmonary edema with increasing small left pleural effusion. Assessment and Plan - Diagnosis (1) Hypoxia Is this a current diagnosis for this admission?: Yes (2) Hyperglycemia due to type 2 diabetes mellitus Qualifiers: Diabetes mellitus long-term insulin use: without long-term use Qualified Code(s): E11.65 - Type 2 diabetes mellitus with hyperglycemia Is this a current diagnosis for this admission?: Yes (3) Morbid obesity with BMI of 70 and over, adult Is this a current diagnosis for this admission?: Yes (4) Panniculitis Is this a current diagnosis for this admission?: Yes (5) Suspected COVID-19 virus infection Is this a current diagnosis for this admission?: Yes (6) Abdominal pain, acute, generalized Is this a current diagnosis for this admission?: Yes (7) FROYLAN on CPAP Is this a current diagnosis for this admission?: Yes (8) Cutaneous candidiasis Is this a current diagnosis for this admission?: Yes (9) Sepsis Qualifiers: Sepsis type: sepsis due to unspecified organism Sepsis acute organ dysfunction status: without acute organ dysfunction Qualified Code(s): A41.9 - Sepsis, unspecified organism Is this a current diagnosis for this admission?: Yes - Plan Summary Summary: (1) Hypoxia SPO2 was 86% on room air. 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 Patient also has super obesity which likely contributing to hypoventilation compounding her hypoxia. Blood cultures positive for Enterococcus. (2) Abdominal pain, acute, generalized Generalized and nonspecific. Normal lipase. CT of abdomen pelvis done without contrast, does not show any worrisome etiologies. Did note abdominal fat pad stranding concerning for panniculitis. PPI, stool softener, MiraLAX as needed, antibiotics for panniculitis/abdominal wall cellulitis. (3) Panniculitis Continue current antibiotics. Supportive treatment. Pain control. (4) Suspected COVID-19 virus infection Testing for Covid due to hypoxia, negative. (5) Sepsis, persistent Enterococcus bacteremia Leukocytosis, febrile, hypoxic, tachycardic. Continue current antibiotics. Continue IV fluids. Blood culture 3 out of 3 positive for Enterococcus. Repeat blood cultures still positive for Enterococcus. Discussed with Dr. Maynard from infectious disease. We will switch Zyvox to daptomycin today. Repeat cultures in 24 to 48 hours. Echocardiogram did not visualize aortic artery well. Discussed with Dr. Kimbrough yesterday. Patient will need MATTHEW possibly Monday. Patient has no peripheral IV access. (6) Hyperglycemia due to type 2 diabetes mellitus Takes metformin at home. Sliding scale insulin. Continue with Accu-Cheks. Diabetic diet. (7) Cutaneous candidiasis Nystatin topical (8) FROYLAN on CPAP nocturnal cpap (9) Morbid obesity with BMI of 70 and over, adult Recommend lifestyle modifications - Time Anticipated Discharge Disposition: Home, Self Care Anticipated Discharge Timeframe: within 72 hours
--- NOTE | 2020-01-25 15:31 | Operative Report ---
Bedside Procedure - History of Present Illness Indication for Procedure: IV access for antibiotics Date: 01/25/20 Provider: GUADALUPE ISABEL - Central Line Right Internal jugular Consent obtained: Yes Central line pre-insertion: Sterile PPE donned, Chloraprep applied, Sterile drapes applied Central line size (Fr.): 7 Central line lumen type: Triple Anesthetic type: 1% Lidocaine mL's of anesthesia: 5 Ultrasound guided: Yes Line secured with sutures: Yes Central line post-insertion: Blood return from lumens, Biopatch applied, Sutured, Sterile dressing applied, Position confirmed w/ CXR Complications: No
[2020-01-25 16:44] LABS: INTERNATIONAL RATION (INR) 1.23; PROTHROMBIN TIME 15.7 SEC (11.4-15.4)
--- NOTE | 2020-01-25 17:20 | Progress Note ---
Provider Note Provider Note: [facility] Telephone Advice Consultation Chart reviewed, patient not seen. This is a 34-year-old woman with morbid obesity with BMI of 72, DM, FROYLAN who was admitted due to abdominal pain and abnormal vaginal bleeding. The abdominal pain was cramping pain associated with constipation for which she had to take a laxatives. In terms of vaginal bleeding, she has this periodically as her menstrual periods are irregular. She denied any respiratory symptoms or vomiting. On admissionl her WBC was elevated 18k, CXR showed bilateral opacities atelectasis vs infection. She was found with buttocks skin ulcerations, but unclear if they look infected. CT chest suggestive of small airway disease. CT scan of abdomen and pelvis demonstrating panniculitis. Blood culture on 01/20 positive for Enterococcus faecalis, 01/21 and 01/23. TTE negative for endocarditis although suspicious, but limited due to body habitus. She was started on linezolid for Enterococcal bacteremia due to penicillin allergy. She is afebrile now, HD stable, leukocytosis improved. ID consulted for recommendations. Allergies: amoxicillin [Amoxicillin] Allergy (Verified 01/21/20 21:01) benzonatate [From Tessalon Perles] Allergy (Verified 01/21/20 21:01 fluticasone [From Advair Diskus] Allergy (Verified 01/21/20 21:01) iloperidone [From Fanapt] Allergy (Verified 01/21/20 21:01) Penicillins Allergy (Verified 01/21/20 21:01) salmeterol [From Advair Diskus] Allergy (Verified 01/21/20 21:01) Medications: Albuterol Sulfate [Proair HFA] 2 puff IH Q4HP PRN 06/03/17 Metformin HCl [Metformin HCl ER] 1,000 mg PO BID 05/15/18 Sucralfate [Carafate 1 gm Tablet] 1 gm PO ACHSP PRN 05/15/18 Budesonide/Formoterol Fumarate [Symbicort HFA 160-4.5 mcg Inhaler 6 gm] 2 puff IH BID 12/11/19 Omeprazole Magnesium [Prilosec Otc] 20 mg PO Q6AM 12/11/19 Sertraline HCl [Zoloft 50 mg Tablet] 50 mg PO DAILY 12/12/19 Chlorzoxazone [Parafon Forte Dsc 500 mg Tablet] 750 mg PO BIDP PRN 01/22/20 Ferrous Sulfate [Feosol 325 mg Tablet] 325 mg PO DAILY 01/22/20 Oxycodone HCl/Acetaminophen [Percocet 10-325 mg Tablet] 1 tab PO QIDP PRN 01/22/20 Prazosin HCl [Minipress] 1 mg PO QHS 01/22/20 Hydroxyzine Pamoate [Vistaril 50 mg Capsule] 50 mg PO TID 01/25/20 Vital Signs: Temp Pulse Resp BP Pulse Ox 98.8 F 102 H 24 H 141/58 H 94 01/25/20 11:34 01/25/20 11:34 01/25/20 11:34 01/25/20 11:34 01/25/20 11:34 Intake & Output 01/24/20 01/25/20 01/26/20 06:59 06:59 06:59 Intake Total 970 1820 600 Balance 970 1820 600 Weight 180.2 kg 180.2 kg 180.2 kg Weight/Height Weight 180.2 kg Height 5 ft 2 in Laboratories: 01/25/20 04:15 01/25/20 04:15 MCV 84 fl (80-97) 01/25/20 04:15 MCH 25.9 pg (27.0-33.4) L 01/25/20 04:15 MCHC 30.7 g/dL (32.0-36.0) L 01/25/20 04:15 RDW 17.1 % (11.5-14.0) H 01/25/20 04:15 Seg Neutrophils % 89.0 % (42-78) H 01/21/20 22:05 Chloride 99 mmol/L (98-107) 01/25/20 04:15 Carbon Dioxide 28 mmol/L (22-30) 01/25/20 04:15 Anion Gap 9 (5-19) 01/25/20 04:15 Est GFR ( Amer) > 60 (>60) 01/25/20 04:15 Glucose 207 mg/dL (75-110) H 01/25/20 04:15 Lactic Acid 2.1 mmol/L (0.7-2.1) 01/22/20 13:43 Calcium 8.9 mg/dL (8.4-10.2) 01/25/20 04:15 Ferritin 119.00 ng/mL (6.2-137.0) 01/21/20 22:05 Total Bilirubin 0.7 mg/dL (0.2-1.3) 01/22/20 06:40 AST 33 U/L (14-36) 01/22/20 06:40 Alkaline Phosphatase 237 U/L (38-126) H 01/22/20 06:40 Total Protein 7.9 g/dL (6.3-8.2) 01/22/20 06:40 Albumin 3.9 g/dL (3.5-5.0) 01/22/20 06:40 Lipase 64.6 U/L (23-300) 01/21/20 22:05 Urine Color YELLOW 01/22/20 19:17 Urine Appearance SLIGHTLY-CLOUDY 01/22/20 19:17 Urine pH 6.0 (5.0-9.0) 01/22/20 19:17 Ur Specific [place] 1.042 01/22/20 19:17 Urine Protein 100 mg/dL (NEGATIVE) H 01/22/20 19:17 Urine Glucose (UA) >=500 mg/dL (NEGATIVE) H 01/22/20 19:17 Urine Ketones NEGATIVE mg/dL (NEGATIVE) 01/22/20 19:17 Urine Blood LARGE (NEGATIVE) H 01/22/20 19:17 Urine RBC (Auto) >182 /HPF 01/22/20 19:17 01/22/20 01:30 Blood Blood Culture (PCR) - Final Enterococcus Species Staphylococcus Species 01/24/20 11:12 Blood Blood Culture (PCR) - Final Enterococcus Species 01/25/20 16:00 Creatine Kinase < 20 L Microbiology: Blood cultures: 01/20 Enterococcus faecalis 01/21 Enterococcus faecalis, Staphylococcus spp 01/23 Enterococcus faecalis Radiology: Abdomen/Pelvis CT 01/21/20 21:30 IMPRESSION: No acute process is seen within the abdomen or pelvis. There are stranding at the intra-abdominal wall which may represent evidence of cellulitis. Chest/Abdomen CTA 01/22/20 00:00 IMPRESSION: 1. No evidence of pulmonary embolus. 2. Scattered mosaic attenuation throughout the lungs possibly secondary to small airway disease or hypoventilatory change. 3. Trace left pleural effusion. Chest X-Ray 01/25/20 00:00 IMPRESSION: New right central venous catheter with tip at the right atrium. No pneumothorax. Mild pulmonary edema with increasing small left pleural effusion. Assessment and Recommendations: Patient with morbid obesity and DM evaluated due to Enterococcus faecalis bacteremia. Source still undetermined. It could've been translocation from GI tract as she had constipation and abdominal cramps then diarrhea. If this was the case, it is rare to still have bacteremia as it is usually transient. Another possibility is from tract. She has abnormal vaginal bleeding, unclear if urinary symptoms, but can do urine culture as this is a pathogen commonly found causing infection in the urinary tract. She might have endocardi tis and this could explain cultures still positive. MATTHEW will be helpful. In terms of antibiotic therapy, Daptomycin 8 mg/kg recommended. Can repeat blood cultures in 48 hr. If negative MATTHEW, 2 weeks of therapy from negative cultures, if positive, she will need 6 weeks of therapy. Cathleen Maynard MD [facility] [phone]
[2020-01-25] MEDS: DAPTOMYCIN IV SCH (18:12)
[2020-01-25] MEDS: NORMAL SALINE IV SCH (18:12)
[2020-01-25] MEDS: MAG HYDROX/AL HYDROX/SIMETH SUSP 30 ML UDCUP PO PRN (20:08)
[2020-01-25] MEDS: INSULIN GLARGINE,HUM.REC.ANLOG 1,000 UNIT/10 ML VIAL SUBCUT SCH (22:32)
[2020-01-25] MEDS: AZITHROMYCIN 250 MG TABLET PO SCH (22:32)
[2020-01-25] MEDS: TEMAZEPAM 7.5 MG CAPSULE PO PRN (22:49)
[2020-01-26] MEDS: MORPHINE SULFATE 10 MG/ML INJ IV PRN ×5 (00:11→21:11)
[2020-01-26] MEDS: ALBUTEROL SULFATE HFA (90 MCG/PUFF) 8 GM MDI IH SCH ×5 (01:50→23:03)
[2020-01-26] MEDS: HYDROXYZINE PAMOATE 50 MG CAPSULE PO SCH ×3 (05:31→21:11)
[2020-01-26] MEDS: PANTOPRAZOLE SODIUM 40 MG TABLET.DR PO SCH (05:31)
[2020-01-26 06:00] LABS: HEMATOCRIT 27.7 % (36.0-47.0); HEMOGLOBIN 8.7 g/dL (12.0-15.5); MEAN CORPUSCULAR HEMOGLOBIN 26.4 pg (27.0-33.4); MEAN CORPUSCULAR HGB CONC 31.4 g/dL (32.0-36.0); MEAN CORPUSCULAR VOLUME 84 fl (80-97); PLATELET COUNT 375 10^3/uL (150-450); RED CELL DISTRIBUTION WIDTH 16.8 % (11.5-14.0); WHITE BLOOD COUNT 16.7 10^3/uL (4.0-10.5)
[2020-01-26] MEDS ORDERED: (PENDING PHARMACY ID) (Omeprazole Magnesium [Prilosec Otc] 20 MG Tablet.Dr) PO SCH (06:00)
[2020-01-26] MEDS: TRAMADOL HCL 50 MG TABLET PO PRN (08:32)
[2020-01-26] MEDS: INSULIN LISPRO 100 UNIT/ML 3 ML VIAL SUBCUT SCH ×4 (08:33→21:12)
[2020-01-26] MEDS: ASCORBIC ACID 500 MG TABLET PO SCH ×2 (10:20→17:10)
[2020-01-26] MEDS: FERROUS SULFATE 325 MG TABLET PO SCH (10:20)
[2020-01-26] MEDS: HEPARIN SOD (PORCINE) 5,000 UNIT/ML 1 ML VIAL SUBCUT SCH ×2 (10:20→21:11)
[2020-01-26] MEDS: SERTRALINE HCL 50 MG TABLET PO SCH (10:20)
[2020-01-26] MEDS: CHLORZOXAZONE 500 MG TABLET PO PRN (10:21)
[2020-01-26] MEDS: ZINC SULFATE 220 MG CAPSULE PO SCH (10:22)
[2020-01-26] MEDS: NYSTATIN/TRIAMCIN CREAM 15 GM TP SCH ×4 (10:26→21:13)
[2020-01-26] MEDS: FLUTICASONE/VILANTEROL 100-25 MCG/DOSE IH SCH (10:26)
[2020-01-26] MEDS: DOCUSATE SODIUM 100 MG CAPSULE PO SCH ×2 (10:26→17:12)
[2020-01-26] MEDS: NYSTATIN TOPICAL POWDER 15 GM TP SCH ×2 (10:27→17:13)
[2020-01-26] MEDS: CHOLECALCIFEROL (D3) 1,000 UNIT (25 MCG) TABLET PO SCH (10:28)
--- NOTE | 2020-01-26 11:33 | PDOC PROGRESS REPORT ---
Subjective Date:: 01/26/20 Subjective:: History of Present Illness: SARAHI ST is a 34 year old female with history of morbid obesity, FROYLAN, asthma, diabetes mellitus, hypertension, anxiety and depression, who presents to the hospital with complaints of diffuse abdominal pain. The pain started 1 day ago. She describes it as aching pain which lasts several minutes. States it occurs every 15 minutes. Feels like a cramping sensation. Denies prior episodes. No notable aggravating or alleviating factors. Denies any relationship with food consumption. Admits to nausea but no vomiting. Denies any vaginal discharge. Denies any urinary symptoms.. Last sexual activity was in 2015. Preceding onset of this symptoms, she states she ate out on Monday. Subsequently became constipated and took a laxative. After that she had a few episodes of diarrhea on Monday and Monday. Pain started on Monday. In the ER, patient received work-up with CT abdomen pelvis without contrast. This incidentally picked up groundglass opacities in patient's lower lungs. Patient also noted to have hypoxia at 90% on room air. She has chronic issues with her breathing and often gets short of breath but is also quite overweight. She has not noted any recent worsening of her breathing. Noted to be febrile in the ER as well. Interval history: 01/23/2020: Patient was seen and examined. She still with high white count. No fever. Complains of abdominal wall pain. 01/24/2020: Patient was seen and examined. White count is improving. No fever. Complains of abdominal wall pain. 01/25/2020: Patient was seen and examined. White count is improving. Afebrile. Improving overall. Repeat cultures still positive for Enterococcus. 01/26/2020: Patient was seen and examined. Had low-grade fever of 100.6 last night. Stable on 4 L of nasal cannula oxygen. Reason For Visit: HYPOXIA,FEVER Physical Exam Vital Signs: Temp Pulse Resp BP Pulse Ox 97.9 F 103 H 24 H 111/49 L 95 01/26/20 08:00 01/26/20 08:00 01/26/20 08:00 01/26/20 08:00 01/26/20 08:00 Intake & Output 01/25/20 01/26/20 01/27/20 06:59 06:59 06:59 Intake Total 1820 1780 Output Total 400 Balance 1820 1380 Weight 397 lb 4.368 oz 397 lb 14.95 oz Exam: General appearance: PRESENT: no acute distress, cooperative Head exam: PRESENT: normocephalic Eye exam: PRESENT: EOMI Neck exam: ABSENT: JVD Respiratory exam: PRESENT: clear to auscultation syl, symmetrical, unlabored. ABSENT: crackles, tachypnea, wheezes Cardiovascular exam: PRESENT: +S1, +S2, tachycardia. ABSENT: RRR GI/Abdominal exam: PRESENT: diminished bowel sounds, soft, tenderness - Diffuse all over her abdomen. ABSENT: ascites, distended, firm, guarding, hernia, mass, organolmegaly, rebound, rigid Extremities exam: ABSENT: calf tenderness Neurological exam: PRESENT: alert, awake, oriented to person, oriented to place, oriented to time, oriented to situation Psychiatric exam: PRESENT: anxious. ABSENT: agitated Results Laboratory Results: 01/26/20 05:33 01/25/20 04:15 01/26/20 05:33 WBC 16.7 H RBC 3.30 L Hgb 8.7 L Hct 27.7 L MCV 84 MCH 26.4 L MCHC 31.4 L RDW 16.8 H Plt Count 375 01/22/20 01:30 Blood Blood Culture (PCR) - Final Enterococcus Species Staphylococcus Species 01/22/20 01:30 Blood Blood Culture - Final Enterococcus Faecalis(Group D) Staphylococcus Hominis 01/24/20 11:12 Blood Blood Culture (PCR) - Final Enterococcus Species 01/25/20 01/26/20 16:00 05:33 Creatine Kinase < 20 L 30 Impressions: Abdomen/Pelvis CT 01/21/20 21:30 IMPRESSION: No acute process is seen within the abdomen or pelvis. There are stranding at the intra-abdominal wall which may represent evidence of cellulitis. Chest/Abdomen CTA 01/22/20 00:00 IMPRESSION: 1. No evidence of pulmonary embolus. 2. Scattered mosaic attenuation throughout the lungs possibly secondary to small airway disease or hypoventilatory change. 3. Trace left pleural effusion. Chest X-Ray 01/25/20 00:00 IMPRESSION: New right central venous catheter with tip at the right atrium. No pneumothorax. Mild pulmonary edema with increasing small left pleural effusion. Assessment and Plan - Diagnosis (1) Hypoxia Is this a current diagnosis for this admission?: Yes (2) Hyperglycemia due to type 2 diabetes mellitus Qualifiers: Diabetes mellitus counter tacker insulin use: without counter tacker use Qualified Code(s): E11.65 - Type 2 diabetes mellitus with hyperglycemia Is this a current diagnosis for this admission?: Yes (3) Morbid obesity with BMI of 70 and over, adult Is this a current diagnosis for this admission?: Yes (4) Panniculitis Is this a current diagnosis for this admission?: Yes (5) Suspected COVID-19 virus infection Is this a current diagnosis for this admission?: Yes (6) Abdominal pain, acute, generalized Is this a current diagnosis for this admission?: Yes (7) FROYLAN on CPAP Is this a current diagnosis for this admission?: Yes (8) Cutaneous candidiasis Is this a current diagnosis for this admission?: Yes (9) Sepsis Qualifiers: Sepsis type: sepsis due to unspecified organism Sepsis acute organ dysfunction status: without acute organ dysfunction Qualified Code(s): A41.9 - Sepsis, unspecified organism Is this a current diagnosis for this admission?: Yes - Plan Summary Summary: (1) Hypoxia SPO2 was 86% on room air. CT of abdomen did greens picker some groundglass opacities in her abdomen raising concern for pneumonia. Patient also has super obesity which likely contributing to hypoventilation compounding her hypoxia. Blood cultures positive for Enterococcus. (2) Abdominal pain, acute, generalized Generalized and nonspecific. Normal lipase. CT of abdomen pelvis done without contrast, does not show any worrisome etiologies. Did note abdominal fat pad stranding concerning for panniculitis. PPI, stool softener, MiraLAX as needed, antibiotics for panniculitis/abdominal wall cellulitis. (3) Panniculitis Continue current antibiotics. Supportive treatment. Pain control. (4) Suspected COVID-19 virus infection Testing for Covid due to hypoxia, negative. (5) Sepsis, persistent Enterococcus bacteremia Leukocytosis, febrile, hypoxic, tachycardic. Continue current antibiotics. Continue IV fluids. Blood culture 3 out of 3 positive for Enterococcus. Repeat blood cultures still positive for Enterococcus. Discussed with Dr. Maynard from infectious disease. We will switch Zyvox to daptomycin today. Repeat cultures in the morning. Echocardiogram did not visualize aortic artery well. Discussed with Dr. Kimbrough. Patient will need MATTHEW possibly Monday. Patient has no peripheral IV access. (6) Hyperglycemia due to type 2 diabetes mellitus Takes metformin at home. Sliding scale insulin. Continue with Accu-Cheks. Diabetic diet. (7) Cutaneous candidiasis Nystatin topical (8) FROYLAN on CPAP nocturnal cpap (9) Morbid obesity with BMI of 70 and over, adult Recommend lifestyle modifications - Time Anticipated Discharge Disposition: Home, Self Care Anticipated Discharge Timeframe: within 72 hours
[2020-01-26] MEDS: DICYCLOMINE HCL 10 MG CAPSULE PO PRN (12:58)
[2020-01-26] MEDS: ONDANSETRON HCL INJ/PF 4 MG/2 ML SDV IV PRN ×2 (13:01→21:16)
[2020-01-26] MEDS: DAPTOMYCIN IV SCH (17:10)
[2020-01-26] MEDS: NORMAL SALINE IV SCH (17:10)
[2020-01-26] MEDS: MAG HYDROX/AL HYDROX/SIMETH SUSP 30 ML UDCUP PO PRN (17:20)
[2020-01-26] MEDS: OXYCODONE-ACETAMINOPHEN 5-325 MG TABLET PO PRN (17:20)
[2020-01-26] MEDS: AZITHROMYCIN 250 MG TABLET PO SCH (21:11)
[2020-01-26] MEDS: INSULIN GLARGINE,HUM.REC.ANLOG 1,000 UNIT/10 ML VIAL SUBCUT SCH (21:12)
[2020-01-27] MEDS: OXYCODONE-ACETAMINOPHEN 5-325 MG TABLET PO PRN ×2 (00:24→23:53)
[2020-01-27] MEDS: MORPHINE SULFATE 10 MG/ML INJ IV PRN ×5 (04:14→22:22)
[2020-01-27 04:31] LABS: HEMATOCRIT 25.7 % (36.0-47.0); MEAN CORPUSCULAR HEMOGLOBIN 26.2 pg (27.0-33.4); MEAN CORPUSCULAR HGB CONC 31.2 g/dL (32.0-36.0); MEAN CORPUSCULAR VOLUME 84 fl (80-97); PLATELET COUNT 337 10^3/uL (150-450); RED BLOOD COUNT 3.07 10^6/uL (3.72-5.28); WHITE BLOOD COUNT 13.6 10^3/uL (4.0-10.5)
[2020-01-27 04:55] LABS: ANION GAP 6 (5-19); BLOOD UREA NITROGEN 10 mg/dL (7-20); CALCIUM 8.8 mg/dL (8.4-10.2); CARBON DIOXIDE 30 mmol/L (22-30); CHLORIDE 101 mmol/L (98-107); GLUCOSE 179 mg/dL (75-110); POTASSIUM 4.5 mmol/L (3.6-5.0)
[2020-01-27] MEDS: HYDROXYZINE PAMOATE 50 MG CAPSULE PO SCH ×3 (06:02→22:22)
[2020-01-27] MEDS: ALBUTEROL SULFATE HFA (90 MCG/PUFF) 8 GM MDI IH SCH ×4 (06:02→23:50)
[2020-01-27] MEDS: PANTOPRAZOLE SODIUM 40 MG TABLET.DR PO SCH (06:02)
[2020-01-27] MEDS: INSULIN LISPRO 100 UNIT/ML 3 ML VIAL SUBCUT SCH ×4 (08:28→22:22)
[2020-01-27] MEDS: CHOLECALCIFEROL (D3) 1,000 UNIT (25 MCG) TABLET PO SCH (10:32)
[2020-01-27] MEDS: FERROUS SULFATE 325 MG TABLET PO SCH (10:32)
[2020-01-27] MEDS: ZINC SULFATE 220 MG CAPSULE PO SCH (10:32)
[2020-01-27] MEDS: FLUTICASONE/VILANTEROL 100-25 MCG/DOSE IH SCH (10:32)
[2020-01-27] MEDS: DOCUSATE SODIUM 100 MG CAPSULE PO SCH ×2 (10:32→17:12)
[2020-01-27] MEDS: ASCORBIC ACID 500 MG TABLET PO SCH ×2 (10:32→17:12)
[2020-01-27] MEDS: SERTRALINE HCL 50 MG TABLET PO SCH (10:32)
[2020-01-27] MEDS: NYSTATIN/TRIAMCIN CREAM 15 GM TP SCH ×4 (10:33→22:23)
[2020-01-27] MEDS: NYSTATIN TOPICAL POWDER 15 GM TP SCH ×2 (10:33→18:03)
[2020-01-27] MEDS: HEPARIN SOD (PORCINE) 5,000 UNIT/ML 1 ML VIAL SUBCUT SCH ×2 (10:33→22:23)
[2020-01-27] MEDS: DICYCLOMINE HCL 10 MG CAPSULE PO PRN (12:14)
--- NOTE | 2020-01-27 14:01 | PDOC PROGRESS REPORT ---
Subjective Subjective:: Per Previous Physician: "History of Present Illness: SARAHI ST is a 34 year old female with history of morbid obesity, FROYLAN, asthma, diabetes mellitus, hypertension, anxiety and depression, who presents to the hospital with complaints of diffuse abdominal pain. The pain started 1 day ago. She describes it as aching pain which lasts several minutes. States it occurs every 15 minutes. Feels like a cramping sensation. Denies prior episodes. No notable aggravating or alleviating factors. Denies any relation ship with food consumption. Admits to nausea but no vomiting. Denies any vaginal discharge. Denies any urinary symptoms.. Last sexual activity was in 2015. Preceding onset of this symptoms, she states she ate out on Monday. Subsequently became constipated and took a laxative. After that she had a few episodes of diarrhea on Monday and Monday. Pain started on Monday. In the ER, patient received work-up with CT abdomen pelvis without contrast. This incidentally picked up groundglass opacities in patient's lower lungs. Patient also noted to have hypoxia at 90% on room air. She has chronic issues with her breathing and often gets short of breath but is also quite overweight. She has not noted any recent worsening of her breathing. Noted to be febrile in the ER as well. Interval history: 01/23/2020: Patient was seen and examined. She still with high white count. No fever. Complains of abdominal wall pain. 01/24/2020: Patient was seen and examined. White count is improving. No fever. Complains of abdominal wall pain. 01/25/2020: Patient was seen and examined. White count is improving. Afebrile. Improving overall. Repeat cultures still positive for Enterococcus. 01/26/2020: Patient was seen and examined. Had low-grade fever of 100.6 last night. Stable on 4 L of nasal cannula oxygen." 01/27/2020 Still unclear where the source of the patient's infection might be. Per ID, they suspect intra-abdominal source such as the bowel or tract. We will repeat a CT abdomen and this time and on the pelvis as well. This will be done with IV and oral contrast to look for any potential abscesses could have formed along her bowel. She still having vaginal bleeding and states that sometimes she bleeds for an entire month. She does not follow with a asian studies program chair regularly as she does not have insurance. Patient states she feels okay today. MATTHEW is being arranged reportedly. Daptomycin continues. Lower WBC and lower hemoglobin down to 8. Latest blood culture is also positive for Enterococcus, same organism as the previous cultures per micro lab. Reason For Visit: HYPOXIA,FEVER Physical Exam Vital Signs: Temp Pulse Resp BP Pulse Ox 98.3 F 103 H 19 122/68 100 01/27/20 12:00 01/27/20 12:00 01/27/20 12:00 01/27/20 12:00 01/27/20 12:00 Intake & Output 01/26/20 01/27/20 01/28/20 06:59 06:59 06:59 Intake Total 1780 983 120 Output Total 400 Balance 1380 983 120 Weight 180.5 kg 180.2 kg Exam: General appearance: PRESENT: no acute distress, super morbidly obese with BMI 72.7 Head exam: PRESENT: atraumatic, normocephalic Eye exam: PRESENT: conjunctiva pink. ABSENT: scleral icterus Mouth exam: PRESENT: moist Respiratory exam: PRESENT: clear to auscultation syl. ABSENT: rales, rhonchi, wheezes Cardiovascular exam: PRESENT: RRR. ABSENT: diastolic murmur, rubs, systolic murmur; chronic +2 BLE edema GI/Abdominal exam: PRESENT: normal bowel sounds, soft. ABSENT: distended, guarding, mass, organolmegaly, rebound, tenderness Neurological exam: PRESENT: alert, awake, oriented to person, oriented to place, oriented to time, oriented to situation Psychiatric exam: PRESENT: appropriate affect, normal mood Skin exam: PRESENT: dry, intact, warm Results Laboratory Results: 01/27/20 04:15 01/27/20 04:15 01/27/20 01/27/20 04:15 04:15 WBC 13.6 H RBC 3.07 L Hgb 8.0 L Hct 25.7 L MCV 84 MCH 26.2 L MCHC 31.2 L RDW 17.0 H Plt Count 337 Sodium 136.8 L Potassium 4.5 Chloride 101 Carbon Dioxide 30 Anion Gap 6 BUN 10 Creatinine 0.65 Est GFR ( Amer) > 60 Glucose 179 H Calcium 8.8 01/24/20 11:12 Blood Blood Culture (PCR) - Final Enterococcus Species 01/24/20 11:12 Blood Blood Culture - Final Enterococcus Faecalis(Group D) 01/22/20 03:27 Clean Catch Midstream Legionella Urinary Antigen - Final 01/22/20 01:30 Blood Blood Culture (PCR) - Final Enterococcus Species Staphylococcus Species 01/22/20 01:30 Blood Blood Culture - Final Enterococcus Faecalis(Group D) Staphylococcus Hominis 01/25/20 01/26/20 16:00 05:33 Creatine Kinase < 20 L 30 Impressions: Abdomen/Pelvis CT 01/21/20 21:30 IMPRESSION: No acute process is seen within the abdomen or pelvis. There are stranding at the intra-abdominal wall which may represent evidence of cellulitis. Chest/Abdomen CTA 01/22/20 00:00 IMPRESSION: 1. No evidence of pulmonary embolus. 2. Scattered mosaic attenuation throughout the lungs possibly secondary to small airway disease or hypoventilatory change. 3. Trace left pleural effusion. Chest X-Ray 01/25/20 00:00 IMPRESSION: New right central venous catheter with tip at the right atrium. No pneumothorax. Mild pulmonary edema with increasing small left pleural effusion. Assessment and Plan - Diagnosis (1) Sepsis Qualifiers: Sepsis type: sepsis due to unspecified organism Sepsis acute organ dysfunction status: without acute organ dysfunction Qualified Code(s): A41.9 - Sepsis, unspecified organism Is this a current diagnosis for this admission?: Yes Plan: Leukocytosis, febrile, hypoxic, tachycardic. particular infection source is not clear but suspecting pneumonia or abdominal wall cellulitis/panniculitis. Lactic acid is normal. Receiving IV fluids. Antibiotics. Blood cultures obtained. Check urinalysis. (2) Abdominal pain, acute, generalized Is this a current diagnosis for this admission?: Yes (3) Menometrorrhagia Is this a current diagnosis for this admission?: Yes (4) Morbid obesity with BMI of 70 and over, adult Is this a current diagnosis for this admission?: Yes (5) FROYLAN on CPAP Is this a current diagnosis for this admission?: Yes (6) Diabetes mellitus type 2 in obese Is this a current diagnosis for this admission?: Yes (7) Essential hypertension Is this a current diagnosis for this admission?: Yes (8) Acute on chronic respiratory failure with hypoxemia Is this a current diagnosis for this admission?: Yes (9) Suspected COVID-19 virus infection Is this a current diagnosis for this admission?: Yes - Plan Summary Summary: (1) acute on chronic hypoxemic respiratory failure Per Previous Physician: "SPO2 was 86% on room air. CT of abdomen did olive picker some groundglass opacities in her abdomen raising concern for pneumonia. Patient also has super obesity which likely contributing to hypoventilation compounding her hypoxia. Blood cultures positive for Enterococcus." -Improved (2) Abdominal pain, acute, generalized Per Previous Physician: "Generalized and nonspecific. Normal lipase. CT of abdomen pelvis done without contrast, does not show any worrisome etiologies. Did note abdominal fat pad stranding concerning for panniculitis. PPI, stool softener, MiraLAX as needed, antibiotics for panniculitis/abdominal wall cellulitis." Resolved pain and constipation (3) Sepsis, persistent Enterococcus bacteremia Per Previous Physician: "Leukocytosis, febrile, hypoxic, tachycardic. Continue current antibiotics. Continue IV fluids. Blood culture 3 out of 3 positive for Enterococcus. Repeat blood cultures still positive for Enterococcus. Discussed with Dr. Maynard from infectious disease. We will switch Zyvox to daptomycin today. Repeat cultures in the morning. Echocardiogram did not visualize aortic artery well. Discussed with Dr. Kimbrough. Patient will need MATTHEW possibly Monday. Patient has no peripheral IV access." -sepsis criteria met, persistently infected blood cultures -source is GI versus source -cultures: Blood cultures 01/20+ for Enterococcus, 01/21+ for Enterococcus, 01/23+ for Enterococcus -abx: Daptomycin CT abdomen/pelvis with contrast -close hemodynamic monitoring -IVF as appropriate ID consult Possible infective endocarditis: Ordered MATTHEW (4) Suspected COVID-19 virus infection Test negative (5) Panniculitis Continue current antibiotics. Supportive treatment. Pain control. As local wound care (6) Hyperglycemia due to type 2 diabetes mellitus Takes metformin at home. Sliding scale insulin. Continue with Accu-Cheks. Diabetic diet. (7) Cutaneous candidiasis Nystatin topical (8) FROYLAN on CPAP nocturnal cpap (9) Morbid obesity with BMI of 70 and over, adult Recommend lifestyle modifications - Time Time Spent with patient: 35 or more minutes Medications reviewed and adjusted accordingly: Yes Anticipated Discharge Disposition: Home with Home Health Anticipated Discharge Timeframe: within 72 hours - Inpatient Certification Based on my medical assessment, after consideration of the patient's comorbidities, presenting symptoms, or acuity I expect that the services needed warrant INPATIENT care.: Yes I certify that my determination is in accordance with my understanding of Medicare's requirements for reasonable and necessary INPATIENT services [42 CFR 412.3e].: Yes Medical Necessity: Significant Comorbidiites Make Outpatient Treatment Too Risky, Need Close Monitoring Due to Risk of Patient Decompensation, Need for IV Antibiotics, Risk of Complication if Not Cared For in Hospital, Risk of Diagnosis Which Will Require Inpatient Eval/Care/Monitoring
[2020-01-27] MEDS: NORMAL SALINE IV SCH (17:12)
[2020-01-27] MEDS: DAPTOMYCIN IV SCH (17:12)
--- NOTE | 2020-01-27 18:44 | RADIOLOGY REPORT (SQ) ---
EXAM DESCRIPTION: CT ABD/PELVIS WITH IV ORAL IMAGES COMPLETED DATE/TIME: 01/27/2020 5:45 pm REASON FOR STUDY: bacteremia of unknown source, abd pain, DUB COMPARISON: 01/21/2020 TECHNIQUE: CT scan of the abdomen and pelvis performed using helical scanning technique with dynamic intravenous contrast injection. Oral contrast. Images reviewed with lung, soft tissue, and bone win dows. Reconstructed coronal and sagittal MPR images reviewed. Delayed images for evaluation of the ur inary system also acquired. All images stored on PACS. All CT scanners at this facility use dose modulation, iterative reconstruction, and/or weight based d osing when appropriate to reduce radiation dose to as low as reasonably achievable (ALARA). [facility]: Dose Right [facility]: CareDose [facility]: Dose Right [facility]: Teradose 4D [facility]: In Hand Guides CONTRAST TYPE AND DOSE: contrast/concentration: Isovue 350.00 mmol/ml; Total Contrast Delivered: 100 .0 ml; Total Saline Delivered: 70.0 ml RENAL FUNCTION: BUN 10 creatinine 0.65 RADIATION DOSE: CT Rad equipment meets quality standard of care and radiation dose reduction techniq ues were employed. CTDIvol: 21.1 - 27.2 mGy. DLP: 2720 mGy-cm.. LIMITATIONS: None. FINDINGS: LOWER CHEST: Moderate left pleural effusion with associated atelectasis in the left lower lobe. LIVER: Normal size. No masses. No dilated ducts. SPLEEN: Normal size. No focal lesions. PANCREAS: No masses. No significant calcifications. No adjacent inflammation or peripancreatic fluid collections. Pancreatic duct not dilated. GALLBLADDER: No identified stones by CT criteria. No inflammatory changes to suggest cholecystitis. ADRENAL GLANDS: No significant masses or asymmetry. RIGHT KIDNEY AND URETER: No solid masses. No significant calcifications. No hydronephrosis or hyd roureter. LEFT KIDNEY AND URETER: Cannot exclude a 32 mm solid mass in the medial anterior aspect of the left r enal lower pole. No significant calcifications. No hydronephrosis or hydroureter. AORTA AND VESSELS: No aneurysm. No dissection. Renal arteries, SMA, celiac without stenosis. RETROPERITONEUM: No retroperitoneal adenopathy, hemorrhage or masses. BOWEL AND PERITONEAL CAVITY: No masses or inflammatory changes. No free fluid or peritoneal masses. APPENDIX: Not identified. PELVIS: No mass. No free fluid. Normal bladder. ABDOMINAL WALL: No masses. No hernias. BONES: No significant or acute findings. OTHER: None. IMPRESSION: Cannot exclude a 32 mm mass the lower pole the left kidney versus focal pyelonephritis. Left pleural effusion with associated atelectasis in the left lower lobe. TECHNICAL DOCUMENTATION: JOB ID: [id number] Quality ID # [id number]: Final reports with documentation of one or more dose reduction techniques (e.g., Au tomated exposure control, adjustment of the mA and/or kV according to patient size, use of iterative reconstruction technique) 2010 [employer]- All Rights Reserved Reading location - IP/workstation name: [email or web address]
[2020-01-27] MEDS: AZITHROMYCIN 250 MG TABLET PO SCH (22:22)
[2020-01-27] MEDS: INSULIN GLARGINE,HUM.REC.ANLOG 1,000 UNIT/10 ML VIAL SUBCUT SCH (22:22)
[2020-01-27] MEDS ORDERED: ALBUTEROL SULFATE HFA (90 MCG/PUFF) 8 GM MDI IH ONE (23:45)
[2020-01-28] MEDS: HYDROXYZINE PAMOATE 50 MG CAPSULE PO SCH ×3 (05:38→21:52)
[2020-01-28] MEDS: PANTOPRAZOLE SODIUM 40 MG TABLET.DR PO SCH (05:39)
[2020-01-28] MEDS: ALBUTEROL SULFATE HFA (90 MCG/PUFF) 8 GM MDI IH SCH ×3 (05:39→17:57)
[2020-01-28] MEDS: MORPHINE SULFATE 10 MG/ML INJ IV PRN ×4 (05:39→20:37)
[2020-01-28 07:06] LABS: LEGIONELLA PNEUMOPHILA S1-6 AB <0.91 OD ratio (0.00-0.90)
[2020-01-28] MEDS: INSULIN LISPRO 100 UNIT/ML 3 ML VIAL SUBCUT SCH ×4 (07:34→21:52)
[2020-01-28] MEDS ORDERED: ROCURONIUM BROMIDE INJ 50 MG/5 ML VIAL IV ONE (08:15)
[2020-01-28] MEDS ORDERED: SUCCINYLCHOLINE CHLORIDE INJ 200 MG/10 ML VIAL ONE (08:15)
[2020-01-28] MEDS: FERROUS SULFATE 325 MG TABLET PO SCH ×2 (10:58→18:22)
[2020-01-28] MEDS: SERTRALINE HCL 50 MG TABLET PO SCH ×2 (10:58→18:23)
[2020-01-28] MEDS: ASCORBIC ACID 500 MG TABLET PO SCH ×3 (10:58→18:22)
[2020-01-28] MEDS: DOCUSATE SODIUM 100 MG CAPSULE PO SCH ×3 (10:58→18:19)
[2020-01-28] MEDS: HEPARIN SOD (PORCINE) 5,000 UNIT/ML 1 ML VIAL SUBCUT SCH ×2 (11:07→21:52)
[2020-01-28] MEDS: CHOLECALCIFEROL (D3) 1,000 UNIT (25 MCG) TABLET PO SCH ×2 (12:17→18:22)
[2020-01-28] MEDS: ZINC SULFATE 220 MG CAPSULE PO SCH ×2 (12:17→18:23)
[2020-01-28] MEDS: NYSTATIN TOPICAL POWDER 15 GM TP SCH ×2 (12:17→17:56)
[2020-01-28] MEDS: FLUTICASONE/VILANTEROL 100-25 MCG/DOSE IH SCH (12:18)
[2020-01-28] MEDS: NYSTATIN/TRIAMCIN CREAM 15 GM TP SCH ×4 (12:18→21:55)
--- NOTE | 2020-01-28 12:34 | RADIOLOGY REPORT (SQ) ---
EXAM DESCRIPTION: U/S RETROPERITON (RENAL/AORTA) IMAGES COMPLETED DATE/TIME: 01/28/2020 10:46 am REASON FOR STUDY: suspected renal mass vs abscess COMPARISON: None. TECHNIQUE: Dynamic and static grayscale images acquired of the kidneys and bladder and recorded on P ACS. Additional selected color Doppler and spectral images recorded. LIMITATIONS: None. FINDINGS: RIGHT KIDNEY: Normal size. Normal echogenicity. No solid or suspicious masses. No hydronep hrosis. No calcifications. LEFT KIDNEY: The left kidney measures 11.6 cm in length. Lesion demonstrated on CT is hypoechoic me asured 3.2 x 2.6 x 3.2 cm. The lesion is avascular which favors infectious or inflammatory process r ather than solid mass. BLADDER: No masses. OTHER FINDINGS: No other significant finding. IMPRESSION: Avascular approximately 3 cm mass off the inferior pole the left kidney. This most like ly represents infectious or inflammatory process. TECHNICAL DOCUMENTATION: JOB ID: [id number] 2010 [employer]- All Rights Reserved Reading location - IP/workstation name: [email or web address]
[2020-01-28] MEDS ORDERED: ONDANSETRON HCL INJ/PF 4 MG/2 ML SDV ONE (14:13)
[2020-01-28] MEDS ORDERED: FENTANYL CITRATE INJ/PF 100 MCG/2 ML AMPUL ONE (14:13)
[2020-01-28] MEDS ORDERED: PROPOFOL INJ 200 MG/20 ML VIAL IV ONE (14:13)
[2020-01-28] MEDS ORDERED: SUGAMMADEX SODIUM 200 MG/2 ML SDV IV ONE (14:40)
[2020-01-28] MEDS: NORMAL SALINE IV SCH (17:48)
[2020-01-28] MEDS: DAPTOMYCIN IV SCH (17:48)
--- NOTE | 2020-01-28 18:38 | PDOC PROGRESS REPORT ---
Subjective Subjective:: Per Previous Physician: "History of Present Illness: SARAHI ST is a 34 year old female with history of morbid obesity, FROYLAN, asthma, diabetes mellitus, hypertension, anxiety and depression, who presents to the hospital with complaints of diffuse abdominal pain. The pain started 1 day ago. She describes it as aching pain which lasts several minutes. States it occurs every 15 minutes. Feels like a cramping sensation. Denies prior episodes. No notable aggravating or alleviating factors. Denies any relation ship with food consumption. Admits to nausea but no vomiting. Denies any vaginal discharge. Denies any urinary symptoms.. Last sexual activity was in 2015. Preceding onset of this symptoms, she states she ate out on Monday. Subsequently became constipated and took a laxative. After that she had a few episodes of diarrhea on Monday and Monday. Pain started on Monday. In the ER, patient received work-up with CT abdomen pelvis without contrast. This incidentally picked up groundglass opacities in patient's lower lungs. Patient also noted to have hypoxia at 90% on room air. She has chronic issues with her breathing and often gets short of breath but is also quite overweight. She has not noted any recent worsening of her breathing. Noted to be febrile in the ER as well. Interval history: 01/23/2020: Patient was seen and examined. She still with high white count. No fever. Complains of abdominal wall pain. 01/24/2020: Patient was seen and examined. White count is improving. No fever. Complains of abdominal wall pain. 01/25/2020: Patient was seen and examined. White count is improving. Afebrile. Improving overall. Repeat cultures still positive for Enterococcus. 01/26/2020: Patient was seen and examined. Had low-grade fever of 100.6 last night. Stable on 4 L of nasal cannula oxygen." 01/27/2020 Still unclear where the source of the patient's infection might be. Per ID, they suspect intra-abdominal source such as the bowel or tract. We will repeat a CT abdomen and this time and on the pelvis as well. This will be done with IV and oral contrast to look for any potential abscesses could have formed along her bowel. She still having vaginal bleeding and states that sometimes she bleeds for an entire month. 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 Patient states she feels okay today. MATTHEW is being arranged reportedly. Daptomycin continues. Lower WBC and lower hemoglobin down to 8. Latest blood culture is also positive for Enterococcus, same organism as the previous cultures per micro lab. 01/28/2020 CT abdomen/pelvis with contrast showed possible left renal mass and I have ordered a renal ultrasound to get a closer look at this. Renal ultrasound showed this is likely an abscess rather than a solid tumor. We will need urology opinion and I will give them a call to see if they would like the patient transferred for intervention or if IR would be able to drain this here. Patient remains afebrile. Blood cultures / growing MRSA. Patient believes the suspected abscess in her left kidney may be the source of her left upper quadrant and left flank pain. Reason For Visit: HYPOXIA,FEVER Physical Exam Vital Signs: Temp Pulse Resp BP Pulse Ox 97.6 F 121 H 31 H 135/65 H 98 01/28/20 15:55 01/28/20 15:55 01/28/20 15:55 01/28/20 15:55 01/28/20 15:55 Intake & Output 01/27/20 01/28/20 01/29/20 06:59 06:59 06:59 Intake Total 983 906 900 Balance 983 906 900 Weight 180.2 kg 180.2 kg Exam: General appearance: PRESENT: no acute distress, super morbidly obese with BMI 72.7, overall appears relatively stable today Head exam: PRESENT: atraumatic, normocephalic Eye exam: PRESENT: conjunctiva pink. ABSENT: scleral icterus Mouth exam: PRESENT: moist Respiratory exam: PRESENT: clear to auscultation syl. ABSENT: rales, rhonchi, wheezes Cardiovascular exam: PRESENT: RRR. ABSENT: diastolic murmur, rubs, systolic murmur; chronic +2 BLE edema GI/Abdominal exam: PRESENT: normal bowel sounds, soft. ABSENT: distended, guarding, mass, organolmegaly, rebound, tenderness Neurological exam: PRESENT: alert, awake, oriented to person, oriented to place, oriented to time, oriented to situation Psychiatric exam: PRESENT: appropriate affect, normal mood Skin exam: PRESENT: dry, intact, warm Results Laboratory Results: 01/27/20 04:15 01/27/20 04:15 01/27/20 04:15 Blood Blood Culture (PCR) - Final Staphylococcus Species 01/25/20 20:15 Clean Catch Midstream Urine Culture - Final C.albicans/C.dubliniensis 01/25/20 01/26/20 16:00 05:33 Creatine Kinase < 20 L 30 Impressions: Chest/Abdomen CTA 01/22/20 00:00 IMPRESSION: 1. No evidence of pulmonary embolus. 2. Scattered mosaic attenuation throughout the lungs possibly secondary to small airway disease or hypoventilatory change. 3. Trace left pleural effusion. Chest X-Ray 01/25/20 00:00 IMPRESSION: New right central venous catheter with tip at the right atrium. No pneumothorax. Mild pulmonary edema with increasing small left pleural effusion. Abdomen/Pelvis CT 01/27/20 16:30 IMPRESSION: Cannot exclude a 32 mm mass the lower pole the left kidney versus focal pyelonephritis. Left pleural effusion with associated atelectasis in the left lower lobe. Renal Ultrasound 01/28/20 00:00 IMPRESSION: Avascular approximately 3 cm mass off the inferior pole the left kidney. This most likely represents infectious or inflammatory process. Assessment and Plan - Diagnosis (1) Sepsis Qualifiers: Sepsis type: sepsis due to unspecified organism Sepsis acute organ dysfunction status: without acute organ dysfunction Qualified Code(s): A41.9 - Sepsis, unspecified organism Is this a current diagnosis for this admission?: Yes (2) Abdominal pain, acute, generalized Is this a current diagnosis for this admission?: Yes (3) Menometrorrhagia Is this a current diagnosis for this admission?: Yes (4) Morbid obesity with BMI of 70 and over, adult Is this a current diagnosis for this admission?: Yes (5) FROYLAN on CPAP Is this a current diagnosis for this admission?: Yes (6) Diabetes mellitus type 2 in obese Is this a current diagnosis for this admission?: Yes (7) Essential hypertension Is this a current diagnosis for this admission?: Yes (8) Acute on chronic respiratory failure with hypoxemia Is this a current diagnosis for this admission?: Yes (9) Suspected COVID-19 virus infection Is this a current diagnosis for this admission?: Yes - Plan Summary Summary: (1) acute on chronic hypoxemic respiratory failure Per Previous Physician: "SPO2 was 86% on room air. 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 Patient also has super obesity which likely contributing to hypoventilation compounding her hypoxia. Blood cultures positive for Enterococcus." -Improved (2) Abdominal pain, acute, generalized Per Previous Physician: "Generalized and nonspecific. Normal lipase. CT of abdomen pelvis done without contrast, does not show any worrisome etiologies. Did note abdominal fat pad stranding concerning for panniculitis. PPI, stool softener, MiraLAX as needed, antibiotics for panniculitis/abdominal w all cellulitis." Resolved pain and constipation Repeat CT abdomen/pelvis with IV and oral contrast showed suspected left renal mass Renal ultrasound showed likely left renal abscess rather than solid mass We will need to get urology at outside hospital to review imaging to decide if suspected left renal abscess can be drained by IR or if the patient needs to be transferred for surgical intervention (3) Sepsis, persistent Enterococcus bacteremia Per Previous Physician: "Leukocytosis, febrile, hypoxic, tachycardic. Continue current antibiotics. Continue IV fluids. Blood culture 3 out of 3 positive for Enterococcus. Repeat blood cultures still positive for Enterococcus. Discussed with Dr. Maynard from infectious disease. We will switch Zyvox to daptomycin today. Repeat cultures in the morning. Echocardiogram did not visualize aortic artery well. Discussed with Dr. Kimbrough. Patient will need MATTHEW possibly Monday. Patient has no peripheral IV access." -sepsis criteria met, persistently infected blood cultures -source is GI versus source -cultures: Blood cultures 01/20+ for Enterococcus, 01/21+ for Enterococcus, 01/23+ for Enterococcus -abx: Daptomycin CT abdomen/pelvis with contrast -close hemodynamic monitoring -IVF as appropriate ID consult Possible infective endocarditis: Failed attempt at MATTHEW 01/27 due to difficult airway/esophagus placement of the probe, discussed with cardiology, will reattempt MATTHEW in 1 week (4) Suspected COVID-19 virus infection Test negative (5) Panniculitis Continue current antibiotics. Supportive treatment. Pain control. As local wound care (6) Hyperglycemia due to type 2 diabetes mellitus Takes metformin at home. Sliding scale insulin. Continue with Accu-Cheks. Diabetic diet. (7) Cutaneous candidiasis Nystatin topical (8) FROYLAN on CPAP nocturnal cpap (9) Morbid obesity with BMI of 70 and over, adult Recommend lifestyle modifications - Time Time Spent with patient: 25-34 minutes Medications reviewed and adjusted accordingly: Yes Anticipated Discharge Disposition: Home, Self Care Anticipated Discharge Timeframe: within 72 hours - Inpatient Certification Based on my medical assessment, after consideration of the patient's comorbidities, presenting symptoms, or acuity I expect that the services needed warrant INPATIENT care.: Yes I certify that my determination is in accordance with my understanding of Medicare's requirements for reasonable and necessary INPATIENT services [42 CFR 412.3e].: Yes Medical Necessity: Significant Comorbidiites Make Outpatient Treatment Too Risky, Need Close Monitoring Due to Risk of Patient Decompensation, Need for IV Antibiotics, Risk of Complication if Not Cared For in Hospital, Risk of Diagnosis Which Will Require Inpatient Eval/Care/Monitoring
--- NOTE | 2020-01-28 19:11 | Progress Note ---
Provider Note Provider Note: PROCEDURE NOTE Date January 28, 2020 Attempted procedure: Transesophageal echocardiogram Anesthesia: General anesthesia Medications used: Please see anesthesia notes Indication: Enterococcal bacteremia, inability to perform adequate quality transthoracic echocardiogram Procedure The patient was brought to the OR holding area. Informed consent was obtained for the procedure. Patient has significantly increased body mass index of 72.7 kg/m. Anesthesiologist was involved and it was decided that the patient's airway had to be protected while she was being sedated. Patient was intubated. Once she was comfortably sedated an attempt was made to pass the transesophageal probe. This was difficult. Muscle relaxant was administered intravenously to help enable the procedure. Again probe passage was exceedingly difficult due to difficult anatomy and extremely short neck. Patient also had a large tongue which made the passage of the probe quite difficult. With the help of the anesthesiologist, using a glide scope and also at times using a tongue depressor I attempted to visualize the posterior oropharynx which should under normal circumstances, enable me to visualize the passage of the ET tube into the trachea and thereby attempt passage of the MATTHEW probe posterior to that location. Despite my best attempts I was unable to visualize the posterior oropharynx. Thus I have decided to abort the procedure. There was evidence of a small amount of blood mixed with mucus in the patient's oral secretions and on the MATTHEW probe which would suggest at least a mild degree of oropharyngeal trauma. Intravenous Decadron was given to minimize any potential inflammation that might occur after these attempts. Conclusion Unsuccessful attempt at transesophageal echocardiogram Recommendation Continue antibiotic therapy based on cultures and potentially treat for a longer duration if no other source can be identified. Could possibly try later perhaps next week with direct visualization of the oropharynx without which I do not think a transesophageal echocardiogram can be attempted on this extremely obese lady.
[2020-01-28] MEDS ORDERED: BENZOCAINE/MENTHOL SORE THROAT LOZENGE BUCCAL PRN (19:47)
[2020-01-28] MEDS: INSULIN GLARGINE,HUM.REC.ANLOG 1,000 UNIT/10 ML VIAL SUBCUT SCH (21:51)
[2020-01-28] MEDS: OXYCODONE-ACETAMINOPHEN 5-325 MG TABLET PO PRN (21:52)
[2020-01-28] MEDS: AZITHROMYCIN 250 MG TABLET PO SCH (21:52)
[2020-01-29] MEDS: ALBUTEROL SULFATE HFA (90 MCG/PUFF) 8 GM MDI IH SCH ×4 (00:17→18:48)
[2020-01-29] MEDS: MORPHINE SULFATE 10 MG/ML INJ IV PRN ×4 (03:59→20:24)
[2020-01-29] MEDS: PANTOPRAZOLE SODIUM 40 MG TABLET.DR PO SCH (05:10)
[2020-01-29] MEDS: HYDROXYZINE PAMOATE 50 MG CAPSULE PO SCH ×3 (05:10→22:40)
[2020-01-29 07:13] LABS: MYCOPLASMA PNEUMONIAE IGG AB 654 U/mL (0-99); MYCOPLASMA PNEUMONIAE IGM AB <770 U/mL (0-769)
[2020-01-29] MEDS: INSULIN LISPRO 100 UNIT/ML 3 ML VIAL SUBCUT SCH ×4 (07:46→22:40)
[2020-01-29] MEDS: FERROUS SULFATE 325 MG TABLET PO SCH (09:49)
[2020-01-29] MEDS: DOCUSATE SODIUM 100 MG CAPSULE PO SCH ×2 (09:49→18:45)
[2020-01-29] MEDS: CHOLECALCIFEROL (D3) 1,000 UNIT (25 MCG) TABLET PO SCH (09:49)
[2020-01-29] MEDS: ASCORBIC ACID 500 MG TABLET PO SCH ×2 (09:49→18:45)
[2020-01-29] MEDS: FLUTICASONE/VILANTEROL 100-25 MCG/DOSE IH SCH (09:49)
[2020-01-29] MEDS: SERTRALINE HCL 50 MG TABLET PO SCH (09:50)
[2020-01-29] MEDS: ZINC SULFATE 220 MG CAPSULE PO SCH (09:50)
[2020-01-29] MEDS: HEPARIN SOD (PORCINE) 5,000 UNIT/ML 1 ML VIAL SUBCUT SCH ×2 (09:50→22:40)
[2020-01-29] MEDS: NYSTATIN TOPICAL POWDER 15 GM TP SCH ×2 (09:58→18:46)
[2020-01-29 14:50] LABS: ABSOLUTE LYMPHOCYTES (AUTO) 1.6 10^3/uL (0.5-4.7); ABSOLUTE MONOCYTES (AUTO) 0.8 10^3/uL (0.1-1.4); ABSOLUTE NEUT (AUTO) 14.2 10^3/uL (1.7-8.2); BASOPHILS % (AUTO) 0.3 % (0-2); EOSINOPHILS % (AUTO) 0.1 % (0-6); HEMATOCRIT 24.7 % (36.0-47.0); LYMPHOCYTES % (AUTO) 9.4 % (13-45); MEAN CORPUSCULAR HEMOGLOBIN 26.3 pg (27.0-33.4); MEAN CORPUSCULAR HGB CONC 31.8 g/dL (32.0-36.0); MEAN CORPUSCULAR VOLUME 83 fl (80-97); PLATELET COUNT 350 10^3/uL (150-450); RED BLOOD COUNT 2.98 10^6/uL (3.72-5.28); SEGMENTED NEUTROPHILS % (AUTO) 85.2 % (42-78); TOTAL CELLS COUNTED % (AUTO) 100 %; WHITE BLOOD COUNT 16.7 10^3/uL (4.0-10.5)
[2020-01-29 14:54] LABS: HEMOGLOBIN 7.8 g/dL (12.0-15.5)
[2020-01-29 15:08] LABS: ANION GAP 7 (5-19); BLOOD UREA NITROGEN 15 mg/dL (7-20); CALCIUM 9.2 mg/dL (8.4-10.2); CARBON DIOXIDE 30 mmol/L (22-30); CHLORIDE 99 mmol/L (98-107); GLUCOSE 287 mg/dL (75-110); POTASSIUM 4.8 mmol/L (3.6-5.0)
--- NOTE | 2020-01-29 16:43 | PDOC PROGRESS REPORT ---
Subjective Subjective:: Per Previous Physician: "History of Present Illness: SARAHI ST is a 34 year old female with history of morbid obesity, FROYLAN, asthma, diabetes mellitus, hypertension, anxiety and depression, who presents to the hospital with complaints of diffuse abdominal pain. The pain started 1 day ago. She describes it as aching pain which lasts several minutes. States it occurs every 15 minutes. Feels like a cramping sensation. Denies prior episodes. No notable aggravating or alleviating factors. Denies any relation ship with food consumption. Admits to nausea but no vomiting. Denies any vaginal discharge. Denies any urinary symptoms.. Last sexual activity was in 2015. Preceding onset of this symptoms, she states she ate out on Monday. Subsequently became constipated and took a laxative. After that she had a few episodes of diarrhea on Monday and Monday. Pain started on Monday. In the ER, patient received work-up with CT abdomen pelvis without contrast. This incidentally picked up groundglass opacities in patient's lower lungs. Patient also noted to have hypoxia at 90% on room air. She has chronic issues with her breathing and often gets short of breath but is also quite overweight. She has not noted any recent worsening of her breathing. Noted to be febrile in the ER as well. Interval history: 01/23/2020: Patient was seen and examined. She still with high white count. No fever. Complains of abdominal wall pain. 01/24/2020: Patient was seen and examined. White count is improving. No fever. Complains of abdominal wall pain. 01/25/2020: Patient was seen and examined. White count is improving. Afebrile. Improving overall. Repeat cultures still positive for Enterococcus. 01/26/2020: Patient was seen and examined. Had low-grade fever of 100.6 last night. Stable on 4 L of nasal cannula oxygen." 01/27/2020 Still unclear where the source of the patient's infection might be. Per ID, they suspect intra-abdominal source such as the bowel or tract. We will repeat a CT abdomen and this time and on the pelvis as well. This will be done with IV and oral contrast to look for any potential abscesses could have formed along her bowel. She still having vaginal bleeding and states that sometimes she bleeds for an entire month. She does not follow with a lance crewmember regularly as she does not have insurance. Patient states she feels okay today. MATTHEW is being arranged reportedly. Daptomycin continues. Lower WBC and lower hemoglobin down to 8. Latest blood culture is also positive for Enterococcus, same organism as the previous cultures per micro lab. 01/28/2020 CT abdomen/pelvis with contrast showed possible left renal mass and I have ordered a renal ultrasound to get a closer look at this. Renal ultrasound showed this is likely an abscess rather than a solid tumor. We will need urology opinion and I will give them a call to see if they would like the patient transferred for intervention or if IR would be able to drain this here. Patient remains afebrile. Blood cultures 02/28 growing MRSA. Patient believes the suspected abscess in her left kidney may be the source of her left upper quadrant and left flank pain. 01/29/2020 I called [facility] and spoke with the urologist on staff there and then he called their interventional radiologist had a lengthy discussion about the patient's imaging studies and how this should be addressed. They believe the patient's renal lesion is likely a phlegmon which may turn into an abscess in the near future. They recommended against attempting to drain this lesion until it becomes an actual liquid abscess. They also noted a lesion in the patient's spleen consistent with septic emboli and similar to the kidney lesion. I believe the patient has showered her organ systems with septic emboli likely from a central source, suspected to be infected endocarditis. MATTHEW was not able to be done as mentioned previously and this will need to be repeated in the near future. We will repeat blood cultures today and if these remain negative we may explore transfer to a CT surgery facility once we can confirm a valvular vegetation on MATTHEW. Patient has no new complaints today. I examined her buttock regions and did not see any open wounds that could be a source for MRSA infection. The patient had mentioned previously having some irritation and possibly an open wound in that area. Reason For Visit: HYPOXIA,FEVER Physical Exam Vital Signs: Temp Pulse Resp BP Pulse Ox 97.9 F 104 H 20 123/46 L 100 01/29/20 11:39 01/29/20 11:39 01/29/20 11:39 01/29/20 11:39 01/29/20 11:39 Intake & Output 01/28/20 01/29/20 01/30/20 06:59 06:59 06:59 Intake Total 906 1960 Balance 906 1959 Weight 180.2 kg 180.2 kg Results Laboratory Results: 01/29/20 14:30 01/29/20 14:30 01/29/20 01/29/20 14:30 14:30 WBC 16.7 H RBC 2.98 L Hgb 7.8 L Hct 24.7 L MCV 83 MCH 26.3 L MCHC 31.8 L RDW 17.0 H Plt Count 350 Seg Neutrophils % 85.2 H Sodium 136.1 L Potassium 4.8 Chloride 99 Carbon Dioxide 30 Anion Gap 7 BUN 15 Creatinine 0.79 Est GFR ( Amer) > 60 Glucose 287 H Calcium 9.2 01/24/20 12:40 Blood Blood Culture - Final NO GROWTH IN 5 DAYS 01/27/20 04:15 Blood Blood Culture (PCR) - Final Staphylococcus Species 01/25/20 01/26/20 16:00 05:33 Creatine Kinase < 20 L 30 Impressions: Chest/Abdomen CTA 01/22/20 00:00 IMPRESSION: 1. No evidence of pulmonary embolus. 2. Scattered mosaic attenuation throughout the lungs possibly secondary to small airway disease or hypoventilatory change. 3. Trace left pleural effusion. Chest X-Ray 01/25/20 00:00 IMPRESSION: New right central venous catheter with tip at the right atrium. No pneumothorax. Mild pulmonary edema with increasing small left pleural effusion. Abdomen/Pelvis CT 01/27/20 16:30 IMPRESSION: Cannot exclude a 32 mm mass the lower pole the left kidney versus focal pyelonephritis. Left pleural effusion with associated atelectasis in the left lower lobe. Renal Ultrasound 01/28/20 00:00 IMPRESSION: Avascular approximately 3 cm mass off the inferior pole the left k [place]. This most likely represents infectious or inflammatory process. Assessment and Plan - Diagnosis (1) Sepsis Qualifiers: Sepsis type: sepsis due to unspecified organism Sepsis acute organ dys function status: without acute organ dysfunction Qualified Code(s): A41.9 - Sepsis, unspecified organism Is this a current diagnosis for this admission?: Yes (2) Abdominal pain, acute, generalized Is this a current diagnosis for this admission?: Yes (3) Menometrorrhagia Is this a current diagnosis for this admission?: Yes (4) Morbid obesity with BMI of 70 and over, adult Is this a current diagnosis for this admission?: Yes (5) FROYLAN on CPAP Is this a current diagnosis for this admission?: Yes (6) Diabetes mellitus type 2 in obese Is this a current diagnosis for this admission?: Yes (7) Essential hypertension Is this a current diagnosis for this admission?: Yes (8) Acute on chronic respiratory failure with hypoxemia Is this a current diagnosis for this admission?: Yes (9) Suspected COVID-19 virus infection Is this a current diagnosis for this admission?: Yes - Plan Summary Summary: (1) acute on chronic hypoxemic respiratory failure Per Previous Physician: "SPO2 was 86% on room air. CT of abdomen did pepper picker some groundglass opacities in her abdomen raising concern for pneumonia. Patient also has super obesity which likely contributing to hypoventilation compounding her hypoxia. Blood cultures positive for Enterococcus." -Improved (2) Abdominal pain, acute, generalized Per Previous Physician: "Generalized and nonspecific. Normal lipase. CT of abdomen pelvis done without contrast, does not show any worrisome etiologies. Did note abdominal fat pad stranding concerning for panniculitis. PPI, stool softener, MiraLAX as needed, antibiotics for panniculitis/abdominal wall cellulitis." Resolved pain and constipation Repeat CT abdomen/pelvis with IV and oral contrast showed suspected left renal mass Renal ultrasound showed likely left renal abscess rather than solid mass We will need to get urology at outside hospital to review imaging to decide if suspected left renal abscess can be drained by IR or if the patient needs to be transferred for surgical intervention (3) sepsis, persistent Enterococcus bacteremia Per Previous Physician: "Leukocytosis, febrile, hypoxic, tachycardic. Continue current antibiotics. Continue IV fluids. Blood culture 3 out of 3 positive for Enterococcus. Repeat blood cultures still positive for Enterococcus. Discussed with Dr. Maynard from infectious disease. We will switch Zyvox to daptomycin today. Repeat cultures in the morning. Echocardiogram did not visualize aortic artery well. Discussed with Dr. Kimbrough. Patient will need MATTHEW possibly Monday. Patient has no peripheral IV access." -sepsis criteria met, persistently infected blood cultures -source is GI versus source -cultures: Blood cultures 01/20+ for Enterococcus, 01/21+ for Enterococcus, 01/23+ for Enterococcus, 01/26 blood cultures growing MRSA in 1/2 bottles Stopped azithromycin -abx: Plan for daptomycin for [address] abdomen/pelvis with contrast showed likely septic emboli to left kidney and spleen; discussed with urology and IR at [facility], will hold off on draining these unless they turn into an abscess rather than what appears to be phlegmon -close hemodynamic monitoring -IVF as appropriate ID consult Possible infective endocarditis: Failed attempt at MATTHEW 01/27 due to difficult airway/esophagus placement of the probe, discussed with cardiology, will reattempt MATTHEW in 1 week (4) Suspected COVID-19 virus infection Test negative (5) Panniculitis Continue current antibiotics. Supportive treatment. Pain control. As local wound care (6) Hyperglycemia due to type 2 diabetes mellitus Takes metformin at home. Sliding scale insulin. Continue with Accu-Cheks. Diabetic diet. (7) Cutaneous candidiasis Nystatin topical (8) FROYLAN on CPAP nocturnal cpap (9) Morbid obesity with BMI of 70 and over, adult Recommend lifestyle modifications - Time Time Spent with patient: 35 or more minutes Medications reviewed and adjusted accordingly: Yes Anticipated Discharge Disposition: Home with Home Health Anticipated Discharge Timeframe: within 72 hours - Inpatient Certification Based on my medical assessment, after consideration of the patient's comorbidities, presenting symptoms, or acuity I expect that the services needed warrant INPATIENT care.: Yes I certify that my determination is in accordance with my understanding of Medicare's requirements for reasonable and necessary INPATIENT services [42 CFR 412.3e].: Yes Medical Necessity: Significant Comorbidiites Make Outpatient Treatment Too Risky, Need Close Monitoring Due to Risk of Patient Decompensation, Need for IV Antibiotics, Risk of Complication if Not Cared For in Hospital, Risk of Diagnosis Which Will Require Inpatient Eval/Care/Monitoring
[2020-01-29] MEDS: NORMAL SALINE IV SCH (18:46)
[2020-01-29] MEDS: DAPTOMYCIN IV SCH (18:46)
[2020-01-29] MEDS: INSULIN GLARGINE,HUM.REC.ANLOG 1,000 UNIT/10 ML VIAL SUBCUT SCH (22:41)
[2020-01-30] MEDS: MORPHINE SULFATE 10 MG/ML INJ IV PRN ×4 (02:13→22:24)
[2020-01-30] MEDS: ALBUTEROL SULFATE HFA (90 MCG/PUFF) 8 GM MDI IH SCH ×4 (02:48→18:34)
[2020-01-30] MEDS: HYDROXYZINE PAMOATE 50 MG CAPSULE PO SCH ×3 (06:41→22:24)
[2020-01-30] MEDS: PANTOPRAZOLE SODIUM 40 MG TABLET.DR PO SCH (06:42)
[2020-01-30 07:22] LABS: ABSOLUTE EOSINOPHILS # (AUTO) 0.1 10^3/uL (0.0-0.6); ABSOLUTE LYMPHOCYTES (AUTO) 2.9 10^3/uL (0.5-4.7); ABSOLUTE MONOCYTES (AUTO) 0.8 10^3/uL (0.1-1.4); BASOPHILS % (AUTO) 0.2 % (0-2); EOSINOPHILS % (AUTO) 0.4 % (0-6); HEMATOCRIT 24.4 % (36.0-47.0); MEAN CORPUSCULAR HEMOGLOBIN 25.5 pg (27.0-33.4); MEAN CORPUSCULAR HGB CONC 30.4 g/dL (32.0-36.0); MEAN CORPUSCULAR VOLUME 84 fl (80-97); MONOCYTES % (AUTO) 5.5 % (3-13); PLATELET COUNT 371 10^3/uL (150-450); RED BLOOD COUNT 2.91 10^6/uL (3.72-5.28); RED CELL DISTRIBUTION WIDTH 17.4 % (11.5-14.0); SEGMENTED NEUTROPHILS % (AUTO) 72.9 % (42-78); TOTAL CELLS COUNTED % (AUTO) 100 %; WHITE BLOOD COUNT 13.7 10^3/uL (4.0-10.5)
[2020-01-30] MEDS: INSULIN LISPRO 100 UNIT/ML 3 ML VIAL SUBCUT SCH ×4 (07:36→22:24)
[2020-01-30 07:37] LABS: ANION GAP 7 (5-19); BLOOD UREA NITROGEN 18 mg/dL (7-20); CARBON DIOXIDE 29 mmol/L (22-30); CHLORIDE 101 mmol/L (98-107); GLUCOSE 216 mg/dL (75-110); HEMOGLOBIN 7.4 g/dL (12.0-15.5); POTASSIUM 4.6 mmol/L (3.6-5.0)
[2020-01-30] MEDS: HEPARIN SOD (PORCINE) 5,000 UNIT/ML 1 ML VIAL SUBCUT SCH ×2 (09:22→22:23)
[2020-01-30] MEDS: CHOLECALCIFEROL (D3) 1,000 UNIT (25 MCG) TABLET PO SCH (09:22)
[2020-01-30] MEDS: ASCORBIC ACID 500 MG TABLET PO SCH ×2 (09:22→17:54)
[2020-01-30] MEDS: DOCUSATE SODIUM 100 MG CAPSULE PO SCH ×2 (09:22→17:54)
[2020-01-30] MEDS: SERTRALINE HCL 50 MG TABLET PO SCH (09:22)
[2020-01-30] MEDS: ZINC SULFATE 220 MG CAPSULE PO SCH (09:22)
[2020-01-30] MEDS: FERROUS SULFATE 325 MG TABLET PO SCH (09:22)
[2020-01-30] MEDS: NYSTATIN TOPICAL POWDER 15 GM TP SCH ×2 (09:23→18:34)
[2020-01-30] MEDS: FLUTICASONE/VILANTEROL 100-25 MCG/DOSE IH SCH (09:23)
--- NOTE | 2020-01-30 14:06 | PDOC PROGRESS REPORT ---
Subjective Subjective:: Per Previous Physician: "History of Present Illness: SARAHI ST is a 34 year old female with history of morbid obesity, FROYLAN, asthma, diabetes mellitus, hypertension, anxiety and depression, who presents to the hospital with complaints of diffuse abdominal pain. The pain started 1 day ago. She describes it as aching pain which lasts several minutes. States it occurs every 15 minutes. Feels like a cramping sensation. Denies prior episodes. No notable aggravating or alleviating factors. Denies any relation ship with food consumption. Admits to nausea but no vomiting. Denies any vaginal discharge. Denies any urinary symptoms.. Last sexual activity was in 2015. Preceding onset of this symptoms, she states she ate out on Monday. Subsequently became constipated and took a laxative. After that she had a few episodes of diarrhea on Monday and Monday. Pain started on Monday. In the ER, patient received work-up with CT abdomen pelvis without contrast. This incidentally picked up groundglass opacities in patient's lower lungs. Patient also noted to have hypoxia at 90% on room air. She has chronic issues with her breathing and often gets short of breath but is also quite overweight. She has not noted any recent worsening of her breathing. Noted to be febrile in the ER as well. Interval history: 01/23/2020: Patient was seen and examined. She still with high white count. No fever. Complains of abdominal wall pain. 01/24/2020: Patient was seen and examined. White count is improving. No fever. Complains of abdominal wall pain. 01/25/2020: Patient was seen and examined. White count is improving. Afebrile. Improving overall. Repeat cultures still positive for Enterococcus. 01/26/2020: Patient was seen and examined. Had low-grade fever of 100.6 last night. Stable on 4 L of nasal cannula oxygen." 01/27/2020 Still unclear where the source of the patient's infection might be. Per ID, they suspect intra-abdominal source such as the bowel or tract. We will repeat a CT abdomen and this time and on the pelvis as well. This will be done with IV and oral contrast to look for any potential abscesses could have formed along her bowel. She still having vaginal bleeding and states that sometimes she bleeds for an entire month. She does not follow with a business systems administrator regularly as she does not have insurance. Patient states she feels okay today. MATTHEW is being arranged reportedly. Daptomycin continues. Lower WBC and lower hemoglobin down to 8. Latest blood culture is also positive for Enterococcus, same organism as the previous cultures per micro lab. 01/28/2020 CT abdomen/pelvis with contrast showed possible left renal mass and I have ordered a renal ultrasound to get a closer look at this. Renal ultrasound showed this is likely an abscess rather than a solid tumor. We will need urology opinion and I will give them a call to see if they would like the patient transferred for intervention or if IR would be able to drain this here. Patient remains afebrile. Blood cultures 1/2 growing MRSA. Patient believes the suspected abscess in her left kidney may be the source of her left upper quadrant and left flank pain. 01/29/2020 I called [facility] and spoke with the urologist on staff there and then he called their interventional radiologist had a lengthy discussion about the patient's imaging studies and how this should be addressed. They believe the patient's renal lesion is likely a phlegmon which may turn into an abscess in the near future. They recommended against attempting to drain this lesion until it becomes an actual liquid abscess. They also noted a lesion in the patient's spleen consistent with septic emboli and similar to the kidney lesion. I believe the patient has showered her organ systems with septic emboli likely from a central source, suspected to be infected endocarditis. MATTHEW was not able to be done as mentioned previously and this will need to be repeated in the near future. We will repeat blood cultures today and if these remain negative we may explore transfer to a CT surgery facility once we can confirm a valvular vegetation on MATTHEW. Patient has no new complaints today. I examined her buttock regions and did not see any open wounds that could be a source for MRSA infection. The patient had mentioned previously having some irritation and possibly an open wound in that area. 01/30/2020 Most recent set of results of blood cultures on 01/26 have now resulted as 1/2 bottles contaminated with coag negative staph, otherwise blood cultures are negative. Patient is continued on daptomycin. Blood cultures drawn yesterday are still pending. Patient states she feels slightly better. Dr. Kimbrough is planning to repeat MATTHEW attempt next week. This is certainly indicated given that she probably has a central source of bloodstream infection showering multiple organs, most likely infected endocarditis. Possible she seeded her heart valves from a skin infection became bacteremia. Reason For Visit: HYPOXIA,FEVER Physical Exam Vital Signs: Temp Pulse Resp BP Pulse Ox 98.2 F 88 18 124/40 L 100 01/30/20 10:00 01/29/20 23:17 01/29/20 23:17 01/29/20 23:17 01/29/20 23:17 Intake & Output 01/29/20 01/30/20 01/31/20 06:59 06:59 06:59 Intake Total 1960 1040 Balance 1960 1040 Weight 180.2 kg 180.2 kg Exam: General appearance: PRESENT: no acute distress, super morbidly obese with BMI 72.7, states she feels bit better today Head exam: PRESENT: atraumatic, normocephalic Eye exam: PRESENT: conjunctiva pink. ABSENT: scleral icterus Mouth exam: PRESENT: moist Respiratory exam: PRESENT: clear to auscultation syl. ABSENT: rales, rhonchi, wheezes Cardiovascular exam: PRESENT: RRR. ABSENT: diastolic murmur, rubs, systolic murmur; chronic +2 BLE edema GI/Abdominal exam: PRESENT: normal bowel sounds, soft. ABSENT: distended, guarding, mass, organolmegaly, rebound, tenderness Neurological exam: PRESENT: alert, awake, oriented to person, oriented to place, oriented to time, oriented to situation Psychiatric exam: PRESENT: appropriate affect, normal mood Skin exam: PRESENT: dry, intact, warm Results Laboratory Results: 01/30/20 06:40 01/30/20 06:40 01/29/20 01/29/20 01/30/20 14:30 14:30 06:40 WBC 16.7 H 13.7 H RBC 2.98 L 2.91 L Hgb 7.8 L 7.4 L Hct 24.7 L 24.4 L MCV 83 84 MCH 26.3 L 25.5 L MCHC 31.8 L 30.4 L RDW 17.0 H 17.4 H Plt Count 350 371 Seg Neutrophils % 85.2 H 72.9 Sodium 136.1 L Potassium 4.8 Chloride 99 Carbon Dioxide 30 Anion Gap 7 BUN 15 Creatinine 0.79 Est GFR ( Amer) > 60 Glucose 287 H Calcium 9.2 01/30/20 06:40 WBC RBC Hgb Hct MCV MCH MCHC RDW Plt Count Seg Neutrophils % Sodium 137.0 Potassium 4.6 Chloride 101 Carbon Dioxide 29 Anion Gap 7 BUN 18 Creatinine 0.88 Est GFR ( Amer) > 60 Glucose 216 H Calcium 9.0 01/27/20 04:15 Blood Blood Culture (PCR) - Final Staphylococcus Species 01/27/20 04:15 Blood Blood Culture - Final Staphylococcus Epidermidis 01/24/20 12:40 Blood Blood Culture - Final NO GROWTH IN 5 DAYS 01/25/20 01/26/20 16:00 05:33 Creatine Kinase < 20 L 30 Impressions: Chest/Abdomen CTA 01/22/20 00:00 IMPRESSION: 1. No evidence of pulmonary embolus. 2. Scattered mosaic attenuation throughout the lungs possibly secondary to small airway disease or hypoventilatory change. 3. Trace left pleural effusion. Chest X-Ray 01/25/20 00:00 IMPRESSION: New right central venous catheter with tip at the right atrium. No pneumothorax. Mild pulmonary edema with increasing small left pleural effusion. Abdomen/Pelvis CT 01/27/20 16:30 IMPRESSION: Cannot exclude a 32 mm mass the lower pole the left kidney versus focal pyelonephritis. Left pleural effusion with associated atelectasis in the left lower lobe. Renal Ultrasound 01/28/20 00:00 IMPRESSION: Avascular approximately 3 cm mass off the inferior pole the left kidney. This most likely represents infectious or inflammatory process. Assessment and Plan - Diagnosis (1) Sepsis Qualifiers: Sepsis type: sepsis due to unspecified organism Sepsis acute organ dysfunction status: without acute organ dysfunction Qualified Code(s): A41.9 - Sepsis, unspecified organism Is this a current diagnosis for this admission?: Yes (2) Abdominal pain, acute, generalized Is this a current diagnosis for this admission?: Yes (3) Menometrorrhagia Is this a current diagnosis for this admission?: Yes (4) Morbid obesity with BMI of 70 and over, adult Is this a current diagnosis for this admission?: Yes (5) FROYLAN on CPAP Is this a current diagnosis for this admission?: Yes (6) Diabetes mellitus type 2 in obese Is this a current diagnosis for this admission?: Yes (7) Essential hypertension Is this a current diagnosis for this admission?: Yes (8) Acute on chronic respiratory failure with hypoxemia Is this a current diagnosis for this admission?: Yes (9) Suspected COVID-19 virus infection Is this a current diagnosis for this admission?: Yes - Plan Summary Summary: (1) acute on chronic hypoxemic respiratory failure Per Previous Physician: "SPO2 was 86% on room air. CT of abdomen did meat pickler some groundglass opacities in her abdomen raising concern for pneumonia. Patient also has super obesity which likely contributing to hypoventilation compounding her hypoxia. Blood cultures positive for Enterococcus." -Improved (2) Abdominal pain, acute, generalized Per Previous Physician: "Generalized and nonspecific. Normal lipase. CT of abdomen pelvis done without contrast, does not show any worrisome etiologies. Did note abdominal fat pad stranding concerning for panniculitis. PPI, stool softener, MiraLAX as needed, antibiotics for panniculitis/abdominal wall cellulitis." Resolved pain and constipation Repeat CT abdomen/pelvis with IV and oral contrast showed suspected left renal mass Renal ultrasound showed likely left renal abscess rather than solid mass Had urology at outside hospital to review imaging to decide if suspected left renal abscess can be drained by IR or if the patient needs to be transferred for surgical intervention; they recommended continued IV antibiotics and repeat imaging in the next few weeks if patient worsens clinically. (3) sepsis, persistent Enterococcus bacteremia Per Previous Physician: "Leukocytosis, febrile, hypoxic, tachycardic. Continue current antibiotics. Continue IV fluids. Blood culture 3 out of 3 positive for Enterococcus. Repeat blood cultures still positive for Enterococcus. Discussed with Dr. Maynard from infectious disease. We will switch Zyvox to daptomycin today. Repeat cultures in the morning. Echocardiogram did not visualize aortic artery well. Discussed with Dr. Kimbrough. Patient will need MATTHEW possibly Monday. Patient has no peripheral IV access." -sepsis criteria met, persistently infected blood cultures -source is GI versus source -cultures: Blood cultures 01/20+ for Enterococcus, 01/21+ for Enterococcus, 01/23+ for Enterococcus, 01/26 blood cultures growing coag negative staph contaminant in 1/2 bottles otherwise clear Repeat blood culture on 01/28 pending Stopped azithromycin -abx: Plan for daptomycin for [address] abdomen/pelvis with contrast showed likely septic emboli to left kidney and spleen; discussed with urology and IR at [facility], will hold off on draining these unless they turn into an abscess rather than what appears to be phlegmon -close hemodynamic monitoring -IVF as appropriate ID consult Suspect infective endocarditis: Failed attempt at MATTHEW 01/27 due to difficult airway/esophagus placement of the probe, discussed with cardiology, will reattempt MATTHEW in 1 week (4) Ruled out COVID-19 virus infection Test negative (5) Panniculitis Continue current antibiotics. Supportive treatment. Pain control. As local wound care (6) Hyperglycemia due to type 2 diabetes mellitus Takes metformin at home. Sliding scale insulin. Continue with Accu-Cheks. Diabetic diet. (7) Cutaneous candidiasis Nystatin topical (8) FROYLAN on CPAP nocturnal cpap (9) Morbid obesity with BMI of 70 and over, adult Recommend lifestyle modifications - Time Time Spent with patient: 25-34 minutes Medications reviewed and adjusted accordingly: Yes Anticipated Discharge Disposition: Home with Home Health Anticipated Discharge Timeframe: within 72 hours - Inpatient Certification Based on my medical assessment, after consideration of the patient's comorbidities, presenting symptoms, or acuity I expect that the services needed warrant INPATIENT care.: Yes I certify that my determination is in accordance with my understanding of Medicare's requirements for reasonable and necessary INPATIENT services [42 CFR 412.3e].: Yes Medical Necessity: Significant Comorbidiites Make Outpatient Treatment Too Risky, Need Close Monitoring Due to Risk of Patient Decompensation, Need for IV Antibiotics, Need for Surgery, Risk of Complication if Not Cared For in Hospital, Risk of Diagnosis Which Will Require Inpatient Eval/Care/Monitoring
[2020-01-30] MEDS: OXYCODONE-ACETAMINOPHEN 5-325 MG TABLET PO PRN (16:34)
[2020-01-30] MEDS: DAPTOMYCIN IV SCH (18:34)
[2020-01-30] MEDS: NORMAL SALINE IV SCH (18:34)
[2020-01-30] MEDS: INSULIN GLARGINE,HUM.REC.ANLOG 1,000 UNIT/10 ML VIAL SUBCUT SCH (22:25)
[2020-01-31] MEDS: ALBUTEROL SULFATE HFA (90 MCG/PUFF) 8 GM MDI IH SCH ×4 (02:05→17:24)
[2020-01-31] MEDS: MORPHINE SULFATE 10 MG/ML INJ IV PRN ×4 (02:21→22:41)
[2020-01-31] MEDS: PANTOPRAZOLE SODIUM 40 MG TABLET.DR PO SCH (06:30)
[2020-01-31] MEDS: HYDROXYZINE PAMOATE 50 MG CAPSULE PO SCH ×3 (06:30→22:23)
[2020-01-31] MEDS: INSULIN LISPRO 100 UNIT/ML 3 ML VIAL SUBCUT SCH ×4 (07:57→22:22)
[2020-01-31] MEDS: FLUTICASONE/VILANTEROL 100-25 MCG/DOSE IH SCH (09:25)
[2020-01-31] MEDS: ASCORBIC ACID 500 MG TABLET PO SCH ×2 (09:25→17:23)
[2020-01-31] MEDS: ZINC SULFATE 220 MG CAPSULE PO SCH (09:25)
[2020-01-31] MEDS: SERTRALINE HCL 50 MG TABLET PO SCH (09:25)
[2020-01-31] MEDS: FERROUS SULFATE 325 MG TABLET PO SCH (09:25)
[2020-01-31] MEDS: HEPARIN SOD (PORCINE) 5,000 UNIT/ML 1 ML VIAL SUBCUT SCH ×2 (09:25→22:26)
[2020-01-31] MEDS: CHOLECALCIFEROL (D3) 1,000 UNIT (25 MCG) TABLET PO SCH (09:25)
[2020-01-31] MEDS: NYSTATIN TOPICAL POWDER 15 GM TP SCH (09:26)
[2020-01-31] MEDS: DOCUSATE SODIUM 100 MG CAPSULE PO SCH ×2 (09:26→17:25)
[2020-01-31] MEDS: DICYCLOMINE HCL 10 MG CAPSULE PO PRN (11:15)
[2020-01-31] MEDS: OXYCODONE-ACETAMINOPHEN 5-325 MG TABLET PO PRN ×2 (12:17→20:33)
--- NOTE | 2020-01-31 15:26 | PDOC PROGRESS REPORT ---
Subjective Subjective:: Per Previous Physician: "History of Present Illness: SARAHI ST is a 34 year old female with history of morbid obesity, FROYLAN, asthma, diabetes mellitus, hypertension, anxiety and depression, who presents to the hospital with complaints of diffuse abdominal pain. The pain started 1 day ago. She describes it as aching pain which lasts several minutes. States it occurs every 15 minutes. Feels like a cramping sensation. Denies prior episodes. No notable aggravating or alleviating factors. Denies any relation ship with food consumption. Admits to nausea but no vomiting. Denies any vaginal discharge. Denies any urinary symptoms.. Last sexual activity was in 2015. Preceding onset of this symptoms, she states she ate out on Monday. Subsequently became constipated and took a laxative. After that she had a few episodes of diarrhea on Monday and Monday. Pain started on Monday. In the ER, patient received work-up with CT abdomen pelvis without contrast. This incidentally picked up groundglass opacities in patient's lower lungs. Patient also noted to have hypoxia at 90% on room air. She has chronic issues with her breathing and often gets short of breath but is also quite overweight. She has not noted any recent worsening of her breathing. Noted to be febrile in the ER as well. Interval history: 01/23/2020: Patient was seen and examined. She still with high white count. No fever. Complains of abdominal wall pain. 01/24/2020: Patient was seen and examined. White count is improving. No fever. Complains of abdominal wall pain. 01/25/2020: Patient was seen and examined. White count is improving. Afebrile. Improving overall. Repeat cultures still positive for Enterococcus. 01/26/2020: Patient was seen and examined. Had low-grade fever of 100.6 last night. Stable on 4 L of nasal cannula oxygen." 01/27/2020 Still unclear where the source of the patient's infection might be. Per ID, they suspect intra-abdominal source such as the bowel or tract. We will repeat a CT abdomen and this time and on the pelvis as well. This will be done with IV and oral contrast to look for any potential abscesses could have formed along her bowel. She still having vaginal bleeding and states that sometimes she bleeds for an entire month. She does not follow with a senior behavioral scientist regularly as she does not have insurance. Patient states she feels okay today. MATTHEW is being arranged reportedly. Daptomycin continues. Lower WBC and lower hemoglobin down to 8. Latest blood culture is also positive for Enterococcus, same organism as the previous cultures per micro lab. 01/28/2020 CT abdomen/pelvis with contrast showed possible left renal mass and I have ordered a renal ultrasound to get a closer look at this. Renal ultrasound showed this is likely an abscess rather than a solid tumor. We will need urology opinion and I will give them a call to see if they would like the patient transferred for intervention or if IR would be able to drain this here. Patient remains afebrile. Blood cultures 1/2 growing MRSA. Patient believes the suspected abscess in her left kidney may be the source of her left upper quadrant and left flank pain. 01/29/2020 I called [facility] and spoke with the urologist on staff there and then he called their interventional radiologist had a lengthy discussion about the patient's imaging studies and how this should be addressed. They believe the patient's renal lesion is likely a phlegmon which may turn into an abscess in the near future. They recommended against attempting to drain this lesion until it becomes an actual liquid abscess. They also noted a lesion in the patient's spleen consistent with septic emboli and similar to the kidney lesion. I believe the patient has showered her organ systems with septic emboli likely from a central source, suspected to be infected endocarditis. MATTHEW was not able to be done as mentioned previously and this will need to be repeated in the near future. We will repeat blood cultures today and if these remain negative we may explore transfer to a CT surgery facility once we can confirm a valvular vegetation on MATTHEW. Patient has no new complaints today. I examined her buttock regions and did not see any open wounds that could be a source for MRSA infection. The patient had mentioned previously having some irritation and possibly an open wound in that area. 01/30/2020 Most recent set of results of blood cultures on 01/26 have now resulted as 1/2 bottles contaminated with coag negative staph, otherwise blood cultures are negative. Patient is continued on daptomycin. Blood cultures drawn yesterday are still pending. Patient states she feels slightly better. Dr. Kimbrough is planning to repeat MATTHEW attempt next week. This is certainly indicated given that she probably has a central source of bloodstream infection showering multiple organs, most likely infected endocarditis. Possible she seeded her heart valves from a skin infection became bacteremia. 01/31/2020 Blood cultures are growing staph species in 1/2 bottles, suspect this may be a contaminant. Patient is having a bit more pain in her left flank and abdomen likely due to the septic emboli in her kidney. She has been using morphine overnight and explained to her that this will not provide lasting pain relief and she should use the Percocet instead and reserve the morphine for breakthrough pain. I also discussed this with the nurse. I have ordered a MATTHEW to be done on Monday assuming Dr. Kimbrough is available for this. I noted she had a positive mycoplasma IgG antibody earlier in the admission she was appropriately treated with a course of azithromycin. Her blood cultures have not grown mycoplasma and this may be simply antibodies from an exposure in the past other than an active infection. D-dimer is higher. We will check PVL BLE to rule out DVT. There is no PE on a recent CTPA. Reason For Visit: HYPOXIA,FEVER Physical Exam Vital Signs: Temp Pulse Resp BP Pulse Ox 97.5 F 95 20 132/52 H 100 01/31/20 10:00 01/31/20 08:00 01/31/20 08:00 01/31/20 08:00 01/31/20 08:00 Intake & Output 01/30/20 01/31/20 02/01/20 06:59 06:59 06:59 Intake Total 1090 260 Balance 1090 260 Weight 180.2 kg 180.2 kg 180.2 kg Exam: General appearance: PRESENT: no acute distress, super morbidly obese with BMI 72.7, states she is having more left flank and abdominal pain today Head exam: PRESENT: atraumatic, normocephalic Eye exam: PRESENT: conjunctiva pink. ABSENT: scleral icterus Mouth exam: PRESENT: moist Respiratory exam: PRESENT: clear to auscultation syl. ABSENT: rales, rhonchi, wheezes Cardiovascular exam: PRESENT: RRR. ABSENT: diastolic murmur, rubs, systolic murmur; chronic +2 BLE edema GI/Abdominal exam: PRESENT: normal bowel sounds, soft. ABSENT: distended, guarding, mass, organolmegaly, rebound, tenderness Neurological exam: PRESENT: alert, awake, oriented to person, oriented to place, oriented to time, oriented to situation Psychiatric exam: PRESENT: appropriate affect, normal mood Skin exam: PRESENT: dry, intact, warm Results Laboratory Results: 01/30/20 06:40 01/30/20 06:40 01/29/20 18:55 Blood Blood Culture (PCR) - Final Staphylococcus Species 01/25/20 01/26/20 16:00 05:33 Creatine Kinase < 20 L 30 Impressions: Chest/Abdomen CTA 01/22/20 00:00 IMPRESSION: 1. No evidence of pulmonary embolus. 2. Scattered mosaic attenuation throughout the lungs possibly secondary to small airway disease or hypoventilatory change. 3. Trace left pleural effusion. Chest X-Ray 01/25/20 00:00 IMPRESSION: New right central venous catheter with tip at the right atrium. No pneumothorax. Mild pulmonary edema with increasing small left pleural effusion. Abdomen/Pelvis CT 01/27/20 16:30 IMPRESSION: Cannot exclude a 32 mm mass the lower pole the left kidney versus focal pyelonephritis. Left pleural effusion with associated atelectasis in the left lower lobe. Renal Ultrasound 01/28/20 00:00 IMPRESSION: Avascular approximately 3 cm mass off the inferior pole the left kidney. This most likely represents infectious or inflammatory process. Assessment and Plan - Diagnosis (1) Sepsis Qualifiers: Sepsis type: sepsis due to unspecified organism Sepsis acute organ dysfunction status: without acute organ dysfunction Qualified Code(s): A41.9 - Sepsis, unspecified organism Is this a current diagnosis for this admission?: Yes (2) Abdominal pain, acute, generalized Is this a current diagnosis for this admission?: Yes (3) Menometrorrhagia Is this a current diagnosis for this admission?: Yes (4) Morbid obesity with BMI of 70 and over, adult Is this a current diagnosis for this admission?: Yes (5) FROYLAN on CPAP Is this a current diagnosis for this admission?: Yes (6) Diabetes mellitus type 2 in obese Is this a current diagnosis for this admission?: Yes (7) Essential hypertension Is this a current diagnosis for this admission?: Yes (8) Acute on chronic respiratory failure with hypoxemia Is this a current diagnosis for this admission?: Yes (9) Suspected COVID-19 virus infection Is this a current diagnosis for this admission?: Yes - Plan Summary Summary: (1) acute on chronic hypoxemic respiratory failure Per Previous Physician: "SPO2 was 86% on room air. CT of abdomen did pecan picker some groundglass opacities in her abdomen raising con cern for pneumonia. Patient also has super obesity which likely contributing to hypoventilation comp ounding her hypoxia. Blood cultures positive for Enterococcus." -Improved (2) Abdominal pain, acute, generalized Per Previous Physician: "Generalized and nonspecific. Normal lipase. CT of abdomen pelvis done without contrast, does not show any worrisome etiologies. Did note abdominal fat pad stranding concerning for panniculitis. PPI, stool softener, MiraLAX as needed, antibiotics for panniculitis/abdominal wall cellulitis." Resolved pain and constipation Repeat CT abdomen/pelvis with IV and oral contrast showed suspected left renal mass Renal ultrasound showed likely left renal abscess rather than solid mass Had urology at outside hospital to review imaging to decide if suspected left renal abscess can be drained by IR or if the patient needs to be transferred for surgical intervention; they recommended continued IV antibiotics and repeat imaging in the next few weeks if patient worsens clinically. Use oral narcotics initially and use morphine for breakthrough only (3) sepsis, persistent Enterococcus bacteremia Per Previous Physician: "Leukocytosis, febrile, hypoxic, tachycardic. Continue current antibiotics. Continue IV fluids. Blood culture 3 out of 3 positive for Enterococcus. Repeat blood cultures still positive for Enterococcus. Discussed with Dr. Maynard from infectious disease. We will switch Zyvox to daptomycin today. Repeat cultures in the morning. Echocardiogram did not visualize aortic artery well. Discussed with Dr. Kimbrough. Patient will need MATTHEW possibly Monday. Patient has no peripheral IV access." -sepsis criteria met, persistently infected blood cultures -source is GI versus source -cultures: Blood cultures 01/20+ for Enterococcus, 01/21+ for Enterococcus, 01/23+ for Enterococcus, 01/26 blood cultures growing coag negative staph contaminant in 1/2 bottles otherwise clear Repeat blood culture on 01/28 pending Stopped azithromycin -abx: Plan for daptomycin for [address] abdomen/pelvis with contrast showed likely septic emboli to left kidney and spleen; discussed with urology and IR at [facility], will hold off on draining these unless they turn into an abscess rather than what appears to be phlegmon -close hemodynamic monitoring -IVF as appropriate ID consult Suspect infective endocarditis: Failed attempt at MATTHEW 01/27 due to difficult airway/esophagus placement of the probe, discussed with cardiology, will reattempt MATTHEW (4) Ruled out COVID-19 virus infection Test negative (5) Panniculitis Continue current antibiotics. Supportive treatment. Pain control. As local wound care (6) Hyperglycemia due to type 2 diabetes mellitus Takes metformin at home. Sliding scale insulin. Continue with Accu-Cheks. Diabetic diet. (7) Cutaneous candidiasis Nystatin topical (8) FROYLAN on CPAP nocturnal cpap (9) Morbid obesity with BMI of 70 and over, adult Recommend lifestyle modifications - Time Time Spent with patient: 25-34 minutes Medications reviewed and adjusted accordingly: Yes Anticipated Discharge Disposition: Tertiary Anticipated Discharge Timeframe: within 72 hours - Inpatient Certification Based on my medical assessment, after consideration of the patient's comorbidities, presenting symptoms, or acuity I expect that the services needed warrant INPATIENT care.: Yes I certify that my determination is in accordance with my understanding of Medicare's requirements for reasonable and necessary INPATIENT services [42 CFR 412.3e].: Yes Medical Necessity: Significant Comorbidiites Make Outpatient Treatment Too Risky, Need Close Monitoring Due to Risk of Patient Decompensation, Need for IV Antibiotics, Risk of Complication if Not Cared For in Hospital, Risk of Diagnosis Which Will Require Inpatient Eval/Care/Monitoring
[2020-01-31] MEDS: NORMAL SALINE IV SCH (17:26)
[2020-01-31] MEDS: DAPTOMYCIN IV SCH (17:26)
--- NOTE | 2020-01-31 21:23 | RADIOLOGY REPORT (SQ) ---
US LOWER EXTREMITY VEINS HISTORY: Leg pain and swelling. COMPARISON: None. TECHNIQUE: Rich-scale, color Doppler and spectral Doppler images of the bilateral lower extremity veins were obtained. FINDINGS: The bilateral common femoral, superficial femoral and popliteal veins are patent and compressible. Normal augmentation and color Doppler blood flow in the aforementioned veins. The visualized calf veins are also patent. Diffuse subcutaneous edema is present. IMPRESSION: No DVT in the bilateral lower extremities.
[2020-01-31] MEDS: INSULIN GLARGINE,HUM.REC.ANLOG 1,000 UNIT/10 ML VIAL SUBCUT SCH (22:22)
[2020-02-01] MEDS: ALBUTEROL SULFATE HFA (90 MCG/PUFF) 8 GM MDI IH SCH ×5 (00:07→23:33)
[2020-02-01] MEDS: HYDROXYZINE PAMOATE 50 MG CAPSULE PO SCH ×3 (06:00→21:48)
[2020-02-01] MEDS: MORPHINE SULFATE 10 MG/ML INJ IV PRN ×4 (06:01→21:48)
[2020-02-01] MEDS: PANTOPRAZOLE SODIUM 40 MG TABLET.DR PO SCH (06:01)
[2020-02-01] MEDS: OXYCODONE-ACETAMINOPHEN 5-325 MG TABLET PO PRN ×2 (09:55→20:27)
[2020-02-01] MEDS: ZINC SULFATE 220 MG CAPSULE PO SCH (09:57)
[2020-02-01] MEDS: ASCORBIC ACID 500 MG TABLET PO SCH ×2 (09:58→17:26)
[2020-02-01] MEDS: CHOLECALCIFEROL (D3) 1,000 UNIT (25 MCG) TABLET PO SCH (09:58)
[2020-02-01] MEDS: FERROUS SULFATE 325 MG TABLET PO SCH (09:58)
[2020-02-01] MEDS: SERTRALINE HCL 50 MG TABLET PO SCH (09:59)
[2020-02-01] MEDS: DOCUSATE SODIUM 100 MG CAPSULE PO SCH ×2 (09:59→17:26)
[2020-02-01] MEDS: INSULIN LISPRO 100 UNIT/ML 3 ML VIAL SUBCUT SCH ×4 (09:59→21:48)
[2020-02-01] MEDS: HEPARIN SOD (PORCINE) 5,000 UNIT/ML 1 ML VIAL SUBCUT SCH ×2 (10:00→21:47)
[2020-02-01] MEDS: FLUTICASONE/VILANTEROL 100-25 MCG/DOSE IH SCH (10:00)
[2020-02-01 12:40] LABS: ABSOLUTE BASOPHILS # (AUTO) 0.1 10^3/uL (0.0-0.2); ABSOLUTE EOSINOPHILS # (AUTO) 0.1 10^3/uL (0.0-0.6); ABSOLUTE LYMPHOCYTES (AUTO) 2.1 10^3/uL (0.5-4.7); ABSOLUTE MONOCYTES (AUTO) 0.5 10^3/uL (0.1-1.4); ABSOLUTE NEUT (AUTO) 8.9 10^3/uL (1.7-8.2); BASOPHILS % (AUTO) 0.5 % (0-2); EOSINOPHILS % (AUTO) 1.1 % (0-6); HEMATOCRIT 25.5 % (36.0-47.0); LYMPHOCYTES % (AUTO) 18.1 % (13-45); MEAN CORPUSCULAR HEMOGLOBIN 26.1 pg (27.0-33.4); MEAN CORPUSCULAR VOLUME 84 fl (80-97); MONOCYTES % (AUTO) 4.2 % (3-13); PLATELET COUNT 432 10^3/uL (150-450); RED BLOOD COUNT 3.03 10^6/uL (3.72-5.28); RED CELL DISTRIBUTION WIDTH 17.4 % (11.5-14.0); SEGMENTED NEUTROPHILS % (AUTO) 76.1 % (42-78); TOTAL CELLS COUNTED % (AUTO) 100 %; WHITE BLOOD COUNT 11.7 10^3/uL (4.0-10.5)
[2020-02-01 12:42] LABS: HEMOGLOBIN 7.9 g/dL (12.0-15.5)
[2020-02-01 12:43] LABS: ANION GAP 6 (5-19); BLOOD UREA NITROGEN 13 mg/dL (7-20); CALCIUM 9.1 mg/dL (8.4-10.2); CARBON DIOXIDE 30 mmol/L (22-30); CHLORIDE 100 mmol/L (98-107); GLUCOSE 199 mg/dL (75-110); POTASSIUM 4.4 mmol/L (3.6-5.0)
--- NOTE | 2020-02-01 12:48 | PDOC PROGRESS REPORT ---
Subjective Subjective:: Per Previous Physician: "History of Present Illness: SARAHI ST is a 34 year old female with history of morbid obesity, FROYLAN, asthma, diabetes mellitus, hypertension, anxiety and depression, who presents to the hospital with complaints of diffuse abdominal pain. The pain started 1 day ago. She describes it as aching pain which lasts several minutes. States it occurs every 15 minutes. Feels like a cramping sensation. Denies prior episodes. No notable aggravating or alleviating factors. Denies any relation ship with food consumption. Admits to nausea but no vomiting. Denies any vaginal discharge. Denies any urinary symptoms.. Last sexual activity was in 2015. Preceding onset of this symptoms, she states she ate out on Monday. Subsequently became constipated and took a laxative. After that she had a few episodes of diarrhea on Monday and Monday. Pain started on Monday. In the ER, patient received work-up with CT abdomen pelvis without contrast. This incidentally picked up groundglass opacities in patient's lower lungs. Patient also noted to have hypoxia at 90% on room air. She has chronic issues with her breathing and often gets short of breath but is also quite overweight. She has not noted any recent worsening of her breathing. Noted to be febrile in the ER as well. Interval history: 01/23/2020: Patient was seen and examined. She still with high white count. No fever. Complains of abdominal wall pain. 01/24/2020: Patient was seen and examined. White count is improving. No fever. Complains of abdominal wall pain. 01/25/2020: Patient was seen and examined. White count is improving. Afebrile. Improving overall. Repeat cultures still positive for Enterococcus. 01/26/2020: Patient was seen and examined. Had low-grade fever of 100.6 last night. Stable on 4 L of nasal cannula oxygen." 01/27/2020 Still unclear where the source of the patient's infection might be. Per ID, they suspect intra-abdominal source such as the bowel or tract. We will repeat a CT abdomen and this time and on the pelvis as well. This will be done with IV and oral contrast to look for any potential abscesses could have formed along her bowel. She still having vaginal bleeding and states that sometimes she bleeds for an entire month. She does not follow with a neon pumper regularly as she does not have insurance. Patient states she feels okay today. MATTHEW is being arranged reportedly. Daptomycin continues. Lower WBC and lower hemoglobin down to 8. Latest blood culture is also positive for Enterococcus, same organism as the previous cultures per micro lab. 01/28/2020 CT abdomen/pelvis with contrast showed possible left renal mass and I have ordered a renal ultrasound to get a closer look at this. Renal ultrasound showed this is likely an abscess rather than a solid tumor. We will need urology opinion and I will give them a call to see if they would like the patient transferred for intervention or if IR would be able to drain this here. Patient remains afebrile. Blood cultures 1/2 growing MRSA. Patient believes the suspected abscess in her left kidney may be the source of her left upper quadrant and left flank pain. 01/29/2020 I called [facility] and spoke with the urologist on staff there and then he called their interventional radiologist had a lengthy discussion about the patient's imaging studies and how this should be addressed. They believe the patient's renal lesion is likely a phlegmon which may turn into an abscess in the near future. They recommended against attempting to drain this lesion until it becomes an actual liquid abscess. They also noted a lesion in the patient's spleen consistent with septic emboli and similar to the kidney lesion. I believe the patient has showered her organ systems with septic emboli likely from a central source, suspected to be infected endocarditis. MATTHEW was not able to be done as mentioned previously and this will need to be repeated in the near future. We will repeat blood cultures today and if these remain negative we may explore transfer to a CT surgery facility once we can confirm a valvular vegetation on MATTHEW. Patient has no new complaints today. I examined her buttock regions and did not see any open wounds that could be a source for MRSA infection. The patient had mentioned previously having some irritation and possibly an open wound in that area. 01/30/2020 Most recent set of results of blood cultures on 01/26 have now resulted as 1/2 bottles contaminated with coag negative staph, otherwise blood cultures are negative. Patient is continued on daptomycin. Blood cultures drawn yesterday are still pending. Patient states she feels slightly better. Dr. Kimbrough is planning to repeat MATTHEW attempt next week. This is certainly indicated given that she probably has a central source of bloodstream infection showering multiple organs, most likely infected endocarditis. Possible she seeded her heart valves from a skin infection became bacteremia. 01/31/2020 Blood cultures are growing staph species in 1/2 bottles, suspect this may be a contaminant. Patient is having a bit more pain in her left flank and abdomen likely due to the septic emboli in her kidney. She has been using morphine overnight and explained to her that this will not provide lasting pain relief and she should use the Percocet instead and reserve the morphine for breakthrough pain. I also discussed this with the nurse. I have ordered a MATTHEW to be done on Monday assuming Dr. Kimbrough is available for this. I noted she had a positive mycoplasma IgG antibody earlier in the admission she was appropriately treated with a course of azithromycin. Her blood cultures have not grown mycoplasma and this may be simply antibodies from an exposure in the past other than an active infection. D-dimer is higher. We will check PVL BLE to rule out DVT. There is no PE on a recent CTPA. 02/01/2020 Most recent 1/2 blood cultures still growing coag negative staph highly likely a contaminant. If this is the case, patient is to consecutive negative blood culture results from different days. We could say blood is likely cleared of infection as of 01/26. We continue to plan for MATTHEW hopefully on Monday. Order has been placed but the timing of the procedure will be entirely up to Dr. Cassy frank's availability. Patient likely has obesity hypoventilation syndrome and we should not push her oxygen towards 100%. She will likely breathe and feel better overall at a lower O2 saturation around 92% or higher. She is at risk for CO2 retention we do not keep this in mind. Reason For Visit: HYPOXIA,FEVER Physical Exam Vital Signs: Temp Pulse Resp BP Pulse Ox 98.2 F 89 18 125/51 L 100 02/01/20 07:21 02/01/20 07:21 02/01/20 07:21 02/01/20 07:21 02/01/20 07:21 Intake & Output 01/31/20 02/01/20 02/02/20 06:59 06:59 06:59 Intake Total 310 1630 Balance 310 1630 Weight 180.2 kg 180 kg Exam: General appearance: PRESENT: no acute distress, super morbidly obese with BMI 72.7, states is a bit more fatigued today Head exam: PRESENT: atraumatic, normocephalic Eye exam: PRESENT: conjunctiva pink. ABSENT: scleral icterus Mouth exam: PRESENT: moist Respiratory exam: PRESENT: clear to auscultation syl. ABSENT: rales, rhonchi, wheezes Cardiovascular exam: PRESENT: RRR. ABSENT: diastolic murmur, rubs, systolic murmur; chronic +2 BLE edema GI/Abdominal exam: PRESENT: normal bowel sounds, soft, mild left-sided tenderness. ABSENT: distended, guarding, mass, organolmegaly, rebound Neurological exam: PRESENT: alert, awake, oriented to person, oriented to place, oriented to time, oriented to situation Psychiatric exam: PRESENT: appropriate affect, normal mood Skin exam: PRESENT: dry, intact, warm Results Laboratory Results: 01/30/20 06:40 01/30/20 06:40 01/29/20 18:55 Blood Blood Culture (PCR) - Final Staphylococcus Species 01/27/20 04:37 Blood Blood Culture - Final NO GROWTH IN 5 DAYS 01/25/20 01/26/20 16:00 05:33 Creatine Kinase < 20 L 30 Impressions: Chest/Abdomen CTA 01/22/20 00:00 IMPRESSION: 1. No evidence of pulmonary embolus. 2. Scattered mosaic attenuation throughout the lungs possibly secondary to small airway disease or hypoventilatory change. 3. Trace left pleural effusion. Chest X-Ray 01/25/20 00:00 IMPRESSION: New right central venous catheter with tip at the right atrium. No pneumothorax. Mild pulmonary edema with increasing small left pleural effusion. Abdomen/Pelvis CT 01/27/20 16:30 IMPRESSION: Cannot exclude a 32 mm mass the lower pole the left kidney versus focal pyelonephritis. Left pleural effusion with associated atelectasis in the left lower lobe. Renal Ultrasound 01/28/20 00:00 IMPRESSION: Avascular approximately 3 cm mass off the inferior pole the left kidney. This most likely represents infectious or inflammatory process. Venous Doppler Study 01/31/20 15:23 IMPRESSION: No DVT in the bilateral lower extremities. Assessment and Plan - Diagnosis (1) Sepsis Qualifiers: Sepsis type: sepsis due to unspecified organism Sepsis acute organ dysfunction status: without acute organ dysfunction Qualified Code(s): A41.9 - Sepsis, unspecified organism Is this a current diagnosis for this admission?: Yes (2) Abdominal pain, acute, generalized Is this a current diagnosis for this admission?: Yes (3) Menometrorrhagia Is this a current diagnosis for this admission?: Yes (4) Morbid obesity with BMI of 70 and over, adult Is this a current diagnosis for this admission?: Yes (5) FROYLAN on CPAP Is this a current diagnosis for this admission?: Yes (6) Diabetes mellitus type 2 in obese Is this a current diagnosis for this admission?: Yes (7) Essential hypertension Is this a current diagnosis for this admission?: Yes (8) Acute on chronic respiratory failure with hypoxemia Is this a current diagnosis for this admission?: Yes (9) Suspected COVID-19 virus infection Is this a current diagnosis for this admission?: Yes - Plan Summary Summary: Per Previous Physician: "History of Present Illness: SARAHI ST is a 34 year old female with history of morbid obesity, FROYLAN, asthma, diabetes mellitus, hypertension, anxiety and depression, who presents to the hospital with complaints of diffuse abdominal pain. The pain started 1 day ago. She describes it as aching pain which lasts several minutes. States it occurs every 15 minutes. Feels like a cramping sensation. Denies prior episodes. No notable aggravating or alleviating factors. Denies any relatio nship with food consumption. Admits to nausea but no vomiting. Denies any vaginal discharge. Denies any urinary symptoms.. Last sexual activity was in 2015. Preceding onset of this symptoms, she states she ate out on Monday. Subsequently became constipated and took a laxative. After that she had a few episodes of diarrhea on Monday and Monday. Pain started on Monday. In the ER, patient received work-up with CT abdomen pelvis without contrast. This incidentally picked up groundglass opacities in patient's lower lungs. Patient also noted to have hypoxia at 90% on room air. She has chronic issues with her breathing and often gets short of breath but is also quite overweight. She has not noted any recent worsening of her breathing. Noted to be febrile in the ER as well. Interval history: 01/23/2020: Patient was seen and examined. She still with high white count. No fever. Complains of abdominal wall pain. 01/24/2020: Patient was seen and examined. White count is improving. No fever. Complains of abdominal wall pain. 01/25/2020: Patient was seen and examined. White count is improving. Afebrile. Improving overall. Repeat cultures still positive for Enterococcus. 01/26/2020: Patient was seen and examined. Had low-grade fever of 100.6 last night. Stable on 4 L of nasal cannula oxygen." 01/27/2020 Still unclear where the source of the patient's infection might be. Per ID, they suspect intra-abdominal source such as the bowel or tract. We will repeat a CT abdomen and this time and on the pelvis as well. This will be done with IV and oral contrast to look for any potential abscesses could have formed along her bowel. She still having vaginal bleeding and states that sometimes she bleeds for an entire month. She does not follow with a neon pumper regularly as she does not have insurance. Patient states she feels okay today. MATTHEW is being arranged reportedly. Daptomycin continues. Lower WBC and lower hemoglobin down to 8. Latest blood culture is also positive for Enterococcus, same organism as the previous cultures per micro lab. 01/28/2020 CT abdomen/pelvis with contrast showed possible left renal mass and I have ordered a renal ultrasound to get a closer look at this. Renal ultrasound showed this is likely an abscess rather than a solid tumor. We will need urology opinion and I will give them a call to see if they would like the patient transferred for intervention or if IR would be able to drain this here. Patient remains afebrile. Blood cultures 1/2 growing MRSA. Patient believes the suspected abscess in her left kidney may be the source of her left upper quadrant and left flank pain. 01/29/2020 I called [facility] and spoke with the urologist on staff there and then he called their interventional radiologist had a lengthy discussion about the patient's imaging studies and how this should be addressed. They believe the patient's renal lesion is likely a phlegmon which may turn into an abscess in the near future. They recommended against attempting to drain this lesion until it becomes an actual liquid abscess. They also noted a lesion in the patient's spleen consistent with septic emboli and similar to the kidney lesion. I believe the patient has showered her organ systems with septic emboli likely from a central source, suspected to be infected endocarditis. MATTHEW was not able to be done as mentioned previously and this will need to be repeated in the near future. We will repeat blood cultures today and if these remain negative we may explore transfer to a CT surgery facility once we can confirm a valvular vegetation on MATTHEW. Patient has no new complaints today. I examined her buttock regions and did not see any open wounds that could be a source for MRSA infection. The patient had mentioned previously having some irritation and possibly an open wound in that area. 01/30/2020 Most recent set of results of blood cultures on 01/26 have now resulted as 1/2 bottles contaminated with coag negative staph, otherwise blood cultures are negative. Patient is continued on daptomycin. Blood cultures drawn yesterday are still pending. Patient states she feels slightly better. Dr. Kimbrough is planning to repeat MATTHEW attempt next week. This is certainly indicated given that she probably has a central source of bloodstream infection showering multiple organs, most likely infected endocarditis. Possible she seeded her heart valves from a skin infection became bacteremia. 01/31/2020 Blood cultures are growing staph species in 1/2 bottles, suspect this may be a contaminant. Patient is having a bit more pain in her left flank and abdomen likely due to the septic emboli in her kidney. She has been using morphine overnight and explained to her that this will not provide lasting pain relief and she should use the Percocet instead and reserve the morphine for breakthrough pain. I also discussed this with the nurse. I have ordered a MATTHEW to be done on Monday assuming Dr. Kimbrough is available for this. I noted she had a positive mycoplasma IgG antibody earlier in the admission she was appropriately treated with a course of azithromycin. Her blood cultures have not grown mycoplasma and this may be simply antibodies from an exposure in the past other than an active infection. D-dimer is higher. We will check PVL BLE to rule out DVT. There is no PE on a recent CTPA. (1) acute on chronic hypoxemic respiratory failure Per Previous Physician: "SPO2 was 86% on room air. CT of abdomen did chicken picker some groundglass opacities in her abdomen raising concern for pneumonia. Patient also has super obesity which likely contributing to hypoventilation compounding her hypoxia. Blood cultures positive for Enterococcus." -Improved (2) Abdominal pain, acute, generalized Per Previous Physician: "Generalized and nonspecific. Normal lipase. CT of abdomen pelvis done without contrast, does not show any worrisome etiolog ies. Did note abdominal fat pad stranding concerning for panniculitis. PPI, stool softener, MiraLAX as needed, antibiotics for panniculitis/abdominal wall cellulitis." Resolved pain and constipation Repeat CT abdomen/pelvis with IV and oral contrast showed suspected left renal mass Renal ultrasound showed likely left renal abscess rather than solid mass Had urology at outside hospital to review imaging to decide if suspected left renal abscess can be drained by IR or if the patient needs to be transferred for surgical intervention; they recommended continued IV antibiotics and repeat imag ing in the next few weeks if patient worsens clinically. Use oral narcotics initially and use morphine for breakthrough only (3) sepsis, persistent Enterococcus bacteremia Per Previous Physician: "Leukocytosis, febrile, hypoxic, tachycardic. Continue current antibiotics. Continue IV fluids. Blood culture 3 out of 3 positive for Enterococcus. Repeat blood cultures still positive for Enterococcus. Discussed with Dr. Maynard from infectious disease. We will switch Zyvox to daptomycin today. Repeat cultures in the morning. Echocardiogram did not visualize aortic artery well. Discussed with Dr. Kimbrough. Patient will need MATTHEW possibly Monday. Patient has no peripheral IV access." -sepsis criteria met, persistently infected blood cultures -source is GI versus source -cultures: Blood cultures 01/20+ for Enterococcus, 01/21+ for Enterococcus, 01/23+ for Enterococcus, 01/26 blood cultures growing coag negative staph contaminant in 1/2 bottles otherwise clear Repeat blood culture on 01/28 pending Stopped azithromycin; pt completed course for previously suspected mycoplasma -abx: Plan for daptomycin for [address] abdomen/pelvis with contrast showed likely septic emboli to left kidney and spleen; discussed with urology and IR at [facility], will hold off on draining these unless they turn into an abscess rather than what appears to be phlegmon -close hemodynamic monitoring -IVF as appropriate ID consult Suspect infective endocarditis: Failed attempt at MATTHEW 01/27 due to difficult airway/esophagus placement of the probe, discussed with cardiology, will reattempt MATTHEW (4) Ruled out COVID-19 virus infection Test negative (5) Panniculitis Continue current antibiotics. Supportive treatment. Pain control. As local wound care (6) Hyperglycemia due to type 2 diabetes mellitus Takes metformin at home. Sliding scale insulin. Continue with Accu-Cheks. Diabetic diet. (7) Cutaneous candidiasis Nystatin topical (8) FROYLAN on CPAP nocturnal cpap (9) Morbid obesity with BMI of 70 and over, adult Recommend lifestyle modifications - Time Time Spent with patient: 15-24 minutes Medications reviewed and adjusted accordingly: Yes Anticipated Discharge Disposition: Tertiary Anticipated Discharge Timeframe: within 72 hours - Inpatient Certification Based on my medical assessment, after consideration of the patient's comorbidities, presenting symptoms, or acuity I expect that the services needed warrant INPATIENT care.: Yes I certify that my determination is in accordance with my understanding of Medicare's requirements for reasonable and necessary INPATIENT services [42 CFR 412.3e].: Yes Medical Necessity: Significant Comorbidiites Make Outpatient Treatment Too Risky, Need Close Monitoring Due to Risk of Patient Decompensation, Need for IV Antibiotics, Risk of Complication if Not Cared For in Hospital, Risk of Diagnosis Which Will Require Inpatient Eval/Care/Monitoring
[2020-02-01] MEDS: MAG HYDROX/AL HYDROX/SIMETH SUSP 30 ML UDCUP PO PRN (20:27)
[2020-02-01] MEDS: DICYCLOMINE HCL 10 MG CAPSULE PO PRN (20:27)
[2020-02-01] MEDS: INSULIN GLARGINE,HUM.REC.ANLOG 1,000 UNIT/10 ML VIAL SUBCUT SCH (21:48)
[2020-02-02] MEDS: HYDROXYZINE PAMOATE 50 MG CAPSULE PO SCH ×3 (05:05→21:50)
[2020-02-02] MEDS: ALBUTEROL SULFATE HFA (90 MCG/PUFF) 8 GM MDI IH SCH ×4 (05:05→23:41)
[2020-02-02] MEDS: OXYCODONE-ACETAMINOPHEN 5-325 MG TABLET PO PRN ×4 (05:05→23:47)
[2020-02-02] MEDS: PANTOPRAZOLE SODIUM 40 MG TABLET.DR PO SCH (05:05)
[2020-02-02] MEDS: MORPHINE SULFATE 10 MG/ML INJ IV PRN ×3 (08:15→19:51)
[2020-02-02] MEDS: INSULIN LISPRO 100 UNIT/ML 3 ML VIAL SUBCUT SCH ×4 (08:16→21:51)
[2020-02-02] MEDS: FLUTICASONE/VILANTEROL 100-25 MCG/DOSE IH SCH (09:38)
[2020-02-02] MEDS: HEPARIN SOD (PORCINE) 5,000 UNIT/ML 1 ML VIAL SUBCUT SCH ×2 (09:39→21:51)
[2020-02-02] MEDS: DOCUSATE SODIUM 100 MG CAPSULE PO SCH ×2 (09:40→17:48)
[2020-02-02] MEDS: SERTRALINE HCL 50 MG TABLET PO SCH (09:40)
[2020-02-02] MEDS: ASCORBIC ACID 500 MG TABLET PO SCH ×2 (09:41→17:48)
[2020-02-02] MEDS: FERROUS SULFATE 325 MG TABLET PO SCH (09:41)
[2020-02-02] MEDS: ZINC SULFATE 220 MG CAPSULE PO SCH (09:41)
[2020-02-02] MEDS: CHOLECALCIFEROL (D3) 1,000 UNIT (25 MCG) TABLET PO SCH (09:42)
--- NOTE | 2020-02-02 14:47 | PDOC PROGRESS REPORT ---
Subjective Subjective:: Per Previous Physician: "History of Present Illness: SARAHI ST is a 34 year old female with history of morbid obesity, FROYLAN, asthma, diabetes mellitus, hypertension, anxiety and depression, who presents to the hospital with complaints of diffuse abdominal pain. The pain started 1 day ago. She describes it as aching pain which lasts several minutes. States it occurs every 15 minutes. Feels like a cramping sensation. Denies prior episodes. No notable aggravating or alleviating factors. Denies any relation ship with food consumption. Admits to nausea but no vomiting. Denies any vaginal discharge. Denies any urinary symptoms.. Last sexual activity was in 2015. Preceding onset of this symptoms, she states she ate out on Monday. Subsequently became constipated and took a laxative. After that she had a few episodes of diarrhea on Monday and Monday. Pain started on Monday. In the ER, patient received work-up with CT abdomen pelvis without contrast. This incidentally picked up groundglass opacities in patient's lower lungs. Patient also noted to have hypoxia at 90% on room air. She has chronic issues with her breathing and often gets short of breath but is also quite overweight. She has not noted any recent worsening of her breathing. Noted to be febrile in the ER as well. Interval history: 01/23/2020: Patient was seen and examined. She still with high white count. No fever. Complains of abdominal wall pain. 01/24/2020: Patient was seen and examined. White count is improving. No fever. Complains of abdominal wall pain. 01/25/2020: Patient was seen and examined. White count is improving. Afebrile. Improving overall. Repeat cultures still positive for Enterococcus. 01/26/2020: Patient was seen and examined. Had low-grade fever of 100.6 last night. Stable on 4 L of nasal cannula oxygen." 01/27/2020 Still unclear where the source of the patient's infection might be. Per ID, they suspect intra-abdominal source such as the bowel or tract. We will repeat a CT abdomen and this time and on the pelvis as well. This will be done with IV and oral contrast to look for any potential abscesses could have formed along her bowel. She still having vaginal bleeding and states that sometimes she bleeds for an entire month. She does not follow with a hay farmer regularly as she does not have insurance. Patient states she feels okay today. MATTHEW is being arranged reportedly. Daptomycin continues. Lower WBC and lower hemoglobin down to 8. Latest blood culture is also positive for Enterococcus, same organism as the previous cultures per micro lab. 01/28/2020 CT abdomen/pelvis with contrast showed possible left renal mass and I have ordered a renal ultrasound to get a closer look at this. Renal ultrasound showed this is likely an abscess rather than a solid tumor. We will need urology opinion and I will give them a call to see if they would like the patient transferred for intervention or if IR would be able to drain this here. Patient remains afebrile. Blood cultures 1/2 growing MRSA. Patient believes the suspected abscess in her left kidney may be the source of her left upper quadrant and left flank pain. 01/29/2020 I called [facility] and spoke with the urologist on staff there and then he called their interventional radiologist had a lengthy discussion about the patient's imaging studies and how this should be addressed. They believe the patient's renal lesion is likely a phlegmon which may turn into an abscess in the near future. They recommended against attempting to drain this lesion until it becomes an actual liquid abscess. They also noted a lesion in the patient's spleen consistent with septic emboli and similar to the kidney lesion. I believe the patient has showered her organ systems with septic emboli likely from a central source, suspected to be infected endocarditis. MATTHEW was not able to be done as mentioned previously and this will need to be repeated in the near future. We will repeat blood cultures today and if these remain negative we may explore transfer to a CT surgery facility once we can confirm a valvular vegetation on MATTHEW. Patient has no new complaints today. I examined her buttock regions and did not see any open wounds that could be a source for MRSA infection. The patient had mentioned previously having some irritation and possibly an open wound in that area. 01/30/2020 Most recent set of results of blood cultures on 01/26 have now resulted as 1/2 bottles contaminated with coag negative staph, otherwise blood cultures are negative. Patient is continued on daptomycin. Blood cultures drawn yesterday are still pending. Patient states she feels slightly better. Dr. Kimbrough is planning to repeat MATTHEW attempt next week. This is certainly indicated given that she probably has a central source of bloodstream infection showering multiple organs, most likely infected endocarditis. Possible she seeded her heart valves from a skin infection became bacteremia. 01/31/2020 Blood cultures are growing staph species in 1/2 bottles, suspect this may be a contaminant. Patient is having a bit more pain in her left flank and abdomen likely due to the septic emboli in her kidney. She has been using morphine overnight and explained to her that this will not provide lasting pain relief and she should use the Percocet instead and reserve the morphine for breakthrough pain. I also discussed this with the nurse. I have ordered a MATTHEW to be done on Monday assuming Dr. Kimbrough is available for this. I noted she had a positive mycoplasma IgG antibody earlier in the admission she was appropriately treated with a course of azithromycin. Her blood cultures have not grown mycoplasma and this may be simply antibodies from an exposure in the past other than an active infection. D-dimer is higher. We will check PVL BLE to rule out DVT. There is no PE on a recent CTPA. 02/01/2020 Most recent 1/2 blood cultures still growing coag negative staph highly likely a contaminant. If this is the case, patient is to consecutive negative blood culture results from different days. We could say blood is likely cleared of infection as of 01/26. We continue to plan for MATTHEW hopefully on Monday. Order has been placed but the timing of the procedure will be entirely up to Dr. Cassy frank's availability. Patient likely has obesity hypoventilation syndrome and we should not push her oxygen towards 100%. She will likely breathe and feel better overall at a lower O2 saturation around 92% or higher. She is at risk for CO2 retention we do not keep this in mind. 02/02/2020 Patient still having significant left upper quadrant pain likely due to developing splenic abscess. We will repeat a CT abdomen/pelvis with contrast in the next 48 hours to see if this has gone from being a phlegmon to a drainable abscess. Per my discussion with [facility] interventional radiology, they did not recommend attempting to drain any septic emboli unless it had clear evidence of being a liquid abscess. I have added gabapentin to help with the pain and we will continue Percocet and then also morphine for breakthrough pain. Other than that, patient has no new complaints. Will hopefully have MATTHEW done again in the next 48 hours. This is pending Dr. Kimbrough availability. Reason For Visit: HYPOXIA,FEVER Physical Exam Vital Signs: Temp Pulse Resp BP Pulse Ox 97.9 F 104 H 25 H 133/53 H 95 02/02/20 11:13 02/02/20 11:13 02/02/20 11:13 02/02/20 11:13 02/02/20 11:13 Intake & Output 02/01/20 02/02/20 02/03/20 06:59 06:59 06:59 Intake Total 1630 1260 Output Total 0 Balance 1630 1260 Weight 180 kg 180 kg Exam: General appearance: PRESENT: no acute distress, super morbidly obese with BMI 72.7, states she is still having significant left upper quadrant pain Head exam: PRESENT: atraumatic, normocephalic Eye exam: PRESENT: conjunctiva pink. ABSENT: scleral icterus Mouth exam: PRESENT: moist Respiratory exam: PRESENT: clear to auscultation syl. ABSENT: rales, rhonchi, wheezes Cardiovascular exam: PRESENT: RRR. ABSENT: diastolic murmur, rubs, systolic murmur; chronic +2 BLE edema GI/Abdominal exam: PRESENT: normal bowel sounds, soft, mild left-sided tenderness. ABSENT: distended, guarding, mass, organolmegaly, rebound Neurological exam: PRESENT: alert, awake, oriented to person, oriented to place, oriented to time, oriented to situation Psychiatric exam: PRESENT: appropriate affect, normal mood Skin exam: PRESENT: dry, intact, warm Results Laboratory Results: 02/01/20 11:05 02/01/20 11:05 01/29/20 18:55 Blood Blood Culture (PCR) - Final Staphylococcus Species 01/25/20 01/26/20 16:00 05:33 Creatine Kinase < 20 L 30 Impressions: Chest/Abdomen CTA 01/22/20 00:00 IMPRESSION: 1. No evidence of pulmonary embolus. 2. Scattered mosaic attenuation throughout the lungs possibly secondary to small airway disease or hypoventilatory change. 3. Trace left pleural effusion. Chest X-Ray 01/25/20 00:00 IMPRESSION: New right central venous catheter with tip at the right atrium. No pneumothorax. Mild pulmonary edema with increasing small left pleural effusion. Abdomen/Pelvis CT 01/27/20 16:30 IMPRESSION: Cannot exclude a 32 mm mass the lower pole the left kidney versus focal pyelonephritis. Left pleural effusion with associated atelectasis in the left lower lobe. Renal Ultrasound 01/28/20 00:00 IMPRESSION: Avascular approximately 3 cm mass off the inferior pole the left kidney. This most likely represents infectious or inflammatory process. Venous Doppler Study 01/31/20 15:23 IMPRESSION: No DVT in the bilateral lower extremities. Assessment and Plan - Diagnosis (1) Sepsis Qualifiers: Sepsis type: sepsis due to unspecified organism Sepsis acute organ dysf unction status: without acute organ dysfunction Qualified Code(s): A41.9 - Sepsis, unspecified organism Is this a current diagnosis for this admission?: Yes (2) Abdominal pain, acute, generalized Is this a current diagnosis for this admission?: Yes (3) Menometrorrhagia Is this a current diagnosis for this admission?: Yes (4) Morbid obesity with BMI of 70 and over, adult Is this a current diagnosis for this admission?: Yes (5) FROYLAN on CPAP Is this a current diagnosis for this admission?: Yes (6) Diabetes mellitus type 2 in obese Is this a current diagnosis for this admission?: Yes (7) Essential hypertension Is this a current diagnosis for this admission?: Yes (8) Acute on chronic respiratory failure with hypoxemia Is this a current diagnosis for this admission?: Yes (9) Suspected COVID-19 virus infection Is this a current diagnosis for this admission?: Yes - Plan Summary Summary: Per Previous Physician: "History of Present Illness: SARAHI ST is a 34 year old female with history of morbid obesity, FROYLAN, asthma, diabetes mellitus, hypertension, anxiety and depression, who presents to the hospital with complaints of diffuse abdominal pain. The pain started 1 day ago. She describes it as aching pain which lasts several minutes. States it occurs every 15 minutes. Feels like a cramping sensation. Denies prior episodes. No notable aggravating or alleviating factors. Denies any relationship with food consumption. Admits to nausea but no vomiting. Denies any vaginal discharge. Denies any urinary symptoms.. Last sexual activity was in 2015. Preceding onset of this symptoms, she states she ate out on Monday. Subsequently became constipated and took a laxative. After that she had a few episodes of diarrhea on Monday and Monday. Pain started on Monday. In the ER, patient received work-up with CT abdomen pelvis without contrast. This incidentally picked up groundglass opacities in patient's lower lungs. Patient also noted to have hypoxia at 90% on room air. She has chronic issues with her breathing and often gets short of breath but is also quite overweight. She has not noted any recent worsening of her breathing. Noted to be febrile in the ER as well. Interval history: 01/23/2020: Patient was seen and examined. She still with high white count. No fever. Complains of abdominal wall pain. 01/24/2020: Patient was seen and examined. White count is improving. No fever. Complains of abdominal wall pain. 01/25/2020: Patient was seen and examined. White count is improving. Afebrile. Improving overall. Repeat cultures still positive for Enterococcus. 01/26/2020: Patient was seen and examined. Had low-grade fever of 100.6 last night. Stable on 4 L of nasal cannula oxygen." 01/27/2020 Still unclear where the source of the patient's infection might be. Per ID, they suspect intra-abdominal source such as the bowel or tract. We will repeat a CT abdomen and this time and on the pelvis as well. This will be done with IV and oral contrast to look for any potential abscesses could have formed along her bowel. She still having vaginal bleeding and states that sometimes she bleeds for an entire month. She does not follow with a hay farmer regularly as she does not have insurance. Patient states she feels okay today. MATTHEW is being arranged reportedly. Daptomycin continues. Lower WBC and lower hemoglobin down to 8. Latest blood culture is also positive for Enterococcus, s ken organism as the previous cultures per micro lab. 01/28/2020 CT abdomen/pelvis with contrast showed possible left renal mass and I have ordered a renal ultrasound to get a closer look at this. Renal ultrasound showed this is likely an abscess rather than a solid tumor. We will need urology opinion and I will give them a call to see if they would like the patient transferred for intervention or if IR would be able to drain this here. Patient remains afebrile. Blood cultures 1/2 growing MRSA. Patient believes the suspected abscess in her left kidney may be the source of her left upper qu adrant and left flank pain. 01/29/2020 I called [facility] and spoke with the urologist on staff there and then he called their interventional radiologist had a lengthy discussion about the patient's imaging studies and how this should be addressed. They believe the patient's renal lesion is likely a phlegmon which may turn into an abscess in the near future. They recommended against attempting to drain this lesion until it becomes an actual liquid abscess. They also noted a lesion in the patient's spleen consistent with septic emboli and similar to the kidney lesion. I believe the patient has showered her organ systems with septic emboli likely from a central source, suspected to be infected endocarditis. MATTHEW was not able to be done as mentioned previously and this will need to be repeated in the near future. We will repeat blood cultures today and if these remain negative we may explore transfer to a CT surgery facility once we can confirm a valvular vegetation on MATTHEW. Patient has no new complaints today. I examined her buttock regions and did not see any open wounds that could be a source for MRSA infection. The patient had mentioned previously having some irritation and possibly an open wound in that area. 01/30/2020 Most recent set of results of blood cultures on 01/26 have now resulted as 1/2 bottles contaminated with coag negative staph, otherwise blood cultures are negative. Patient is continued on daptomycin. Blood cultures drawn yesterday are still pending. Patient states she feels slightly better. Dr. Kimbrough is planning to repeat MATTHEW attempt next week. This is certainly indicated given that she probably has a central source of bloodstream infection showering multiple organs, most likely infected endocarditis. Possible she seeded her heart valves from a skin infection became bacteremia. 01/31/2020 Blood cultures are growing staph species in 1/2 bottles, suspect this may be a contaminant. Patient is having a bit more pain in her left flank and abdomen likely due to the septic emboli in her kidney. She has been using morphine overnight and explained to her that this will not provide lasting pain relief and she should use the Percocet instead and reserve the morphine for breakthrough pain. I also discussed this with the nurse. I have ordered a MATTHEW to be done on Monday assuming Dr. Kimbrough is available for this. I noted she had a positive mycoplasma IgG antibody earlier in the admission she was appropriately treated with a course of azithromycin. Her blood cultures have not grown mycoplasma and this may be simply antibodies from an exposure in the past other than an active infection. D-dimer is higher. We will check PVL BLE to rule out DVT. There is no PE on a recent CTPA. (1) acute on chronic hypoxemic respiratory failure Per Previous Physician: "SPO2 was 86% on room air. CT of abdomen did picker tender some groundglass opacities in her abdomen raising concern for pneumonia. Patient also has super obesity which likely contributing to hypoventilation compounding her hypoxia. Blood cultures positive for Enterococcus." -Improved (2) Abdominal pain, acute, generalized Per Previous Physician: "Generalized and nonspecific. Normal lipase. CT of abdomen pelvis done without contrast, does not show any worrisome etiologies. Did note abdominal fat pad stranding concerning for panniculitis. PPI, stool softener, MiraLAX as needed, antibiotics for panniculitis/abdominal wall cellulitis." Resolved pain and constipation Repeat CT abdomen/pelvis with IV and oral contrast showed suspected left renal mass Renal ultrasound showed likely left renal abscess rather than solid mass Had urology at outside hospital to review imaging to decide if suspected left renal abscess can be drained by IR or if the patient needs to be transferred for surgical intervention; they recommended continued IV antibiotics and repeat imaging in the next few weeks if patient worsens clinically. GPN, oral narcotics, initially and use morphine for breakthrough only (3) sepsis, persistent Enterococcus bacteremia Per Previous Physician: "Leukocytosis, febrile, hypoxic, tachycardic. Continue current antibiotics. Continue IV fluids. Blood culture 3 out of 3 positive for Enterococcus. Repeat blood cultures still positive for Enterococcus. Discussed with Dr. Maynard from infectious disease. We will switch Zyvox to daptomycin today. Repeat cultures in the morning. Echocardiogram did not visualize aortic artery well. Discussed with Dr. Kimbrough. Patient will need MATTHEW possibly Monday. Patient has no peripheral IV access." -sepsis criteria met, persistently infected blood cultures -source is GI versus source -cultures: Blood cultures 01/20+ for Enterococcus, 01/21+ for Enterococcus, 01/23+ for Enterococcus, 01/26 blood cultures growing coag negative staph contaminant in 1/2 bottles otherwise clear Repeat blood culture on 01/28 pending Stopped azithromycin; pt completed course for previously suspected mycoplasma -abx: Plan for daptomycin for [address] abdomen/pelvis with contrast showed likely septic emboli to left kidney and spleen; discussed with urology and IR at [facility], will hold off on draining these unless they turn into an abscess rather than what appears to be phlegmon -close hemodynamic monitoring -IVF as appropriate ID consult Suspect infective endocarditis: Failed attempt at MATTHEW 01/27 due to difficult airway/esophagus placement of the probe, discussed with cardiology, will reattempt MATTHEW (4) Ruled out COVID-19 virus infection Test negative (5) Panniculitis Continue current antibiotics. Supportive treatment. Pain control. As local wound care (6) Hyperglycemia due to type 2 diabetes mellitus Takes metformin at home. Sliding scale insulin. Continue with Accu-Cheks. Diabetic diet. (7) Cutaneous candidiasis Nystatin topical (8) FROYLAN on CPAP nocturnal cpap (9) Morbid obesity with BMI of 70 and over, adult Recommend lifestyle modifications - Time Time Spent with patient: 25-34 minutes Medications reviewed and adjusted accordingly: Yes Anticipated Discharge Disposition: Home with Home Health Anticipated Discharge Timeframe: within 72 hours - Inpatient Certification Based on my medical assessment, after consideration of the patient's comorbidities, presenting symptoms, or acuity I expect that the services needed warrant INPATIENT care.: Yes I certify that my determination is in accordance with my understanding of Medicare's requirements for reasonable and necessary INPATIENT services [42 CFR 412.3e].: Yes Medical Necessity: Significant Comorbidiites Make Outpatient Treatment Too Risky, Need Close Monitoring Due to Risk of Patient Decompensation, Need for IV Antibiotics, Need for Surgery, Risk of Complication if Not Cared For in Hospital, Risk of Diagnosis Which Will Require Inpatient Eval/Care/Monitoring
[2020-02-02] MEDS: GABAPENTIN 300 MG CAPSULE PO SCH ×2 (14:54→21:50)
[2020-02-02] MEDS: INSULIN GLARGINE,HUM.REC.ANLOG 1,000 UNIT/10 ML VIAL SUBCUT SCH (21:51)
[2020-02-03] MEDS: MORPHINE SULFATE 10 MG/ML INJ IV PRN ×3 (04:55→19:41)
[2020-02-03] MEDS: PANTOPRAZOLE SODIUM 40 MG TABLET.DR PO SCH (05:00)
[2020-02-03] MEDS: ALBUTEROL SULFATE HFA (90 MCG/PUFF) 8 GM MDI IH SCH ×3 (05:00→17:12)
[2020-02-03] MEDS: HYDROXYZINE PAMOATE 50 MG CAPSULE PO SCH ×3 (05:00→21:07)
[2020-02-03 05:42] LABS: ABSOLUTE BASOPHILS # (AUTO) 0.1 10^3/uL (0.0-0.2); ABSOLUTE EOSINOPHILS # (AUTO) 0.2 10^3/uL (0.0-0.6); ABSOLUTE LYMPHOCYTES (AUTO) 1.8 10^3/uL (0.5-4.7); ABSOLUTE MONOCYTES (AUTO) 0.6 10^3/uL (0.1-1.4); ABSOLUTE NEUT (AUTO) 9.2 10^3/uL (1.7-8.2); BASOPHILS % (AUTO) 0.6 % (0-2); EOSINOPHILS % (AUTO) 1.7 % (0-6); HEMATOCRIT 26.3 % (36.0-47.0); LYMPHOCYTES % (AUTO) 14.9 % (13-45); MEAN CORPUSCULAR HEMOGLOBIN 25.8 pg (27.0-33.4); MEAN CORPUSCULAR HGB CONC 30.4 g/dL (32.0-36.0); MEAN CORPUSCULAR VOLUME 85 fl (80-97); MONOCYTES % (AUTO) 4.8 % (3-13); PLATELET COUNT 414 10^3/uL (150-450); RED BLOOD COUNT 3.11 10^6/uL (3.72-5.28); RED CELL DISTRIBUTION WIDTH 17.7 % (11.5-14.0); TOTAL CELLS COUNTED % (AUTO) 100 %; WHITE BLOOD COUNT 11.8 10^3/uL (4.0-10.5)
[2020-02-03 06:01] LABS: ANION GAP 6 (5-19); BLOOD UREA NITROGEN 14 mg/dL (7-20); CALCIUM 9.3 mg/dL (8.4-10.2); CARBON DIOXIDE 29 mmol/L (22-30); CHLORIDE 102 mmol/L (98-107); GLUCOSE 177 mg/dL (75-110); POTASSIUM 4.7 mmol/L (3.6-5.0)
[2020-02-03] MEDS: INSULIN LISPRO 100 UNIT/ML 3 ML VIAL SUBCUT SCH ×4 (08:18→21:06)
[2020-02-03] MEDS: GABAPENTIN 300 MG CAPSULE PO SCH ×2 (09:21→21:07)
[2020-02-03] MEDS: SERTRALINE HCL 50 MG TABLET PO SCH (09:21)
[2020-02-03] MEDS: CHOLECALCIFEROL (D3) 1,000 UNIT (25 MCG) TABLET PO SCH (09:21)
[2020-02-03] MEDS: ASCORBIC ACID 500 MG TABLET PO SCH ×2 (09:22→17:11)
[2020-02-03] MEDS: ZINC SULFATE 220 MG CAPSULE PO SCH (09:22)
[2020-02-03] MEDS: FERROUS SULFATE 325 MG TABLET PO SCH (09:22)
[2020-02-03] MEDS: DOCUSATE SODIUM 100 MG CAPSULE PO SCH ×2 (09:22→17:11)
[2020-02-03] MEDS: FLUTICASONE/VILANTEROL 100-25 MCG/DOSE IH SCH (09:23)
[2020-02-03] MEDS: HEPARIN SOD (PORCINE) 5,000 UNIT/ML 1 ML VIAL SUBCUT SCH ×2 (09:24→21:02)
[2020-02-03] MEDS: OXYCODONE-ACETAMINOPHEN 5-325 MG TABLET PO PRN ×2 (09:27→17:11)
--- NOTE | 2020-02-03 18:01 | PDOC PROGRESS REPORT ---
Subjective Subjective:: Per Previous Physician: "History of Present Illness: SARAHI ST is a 34 year old female with history of morbid obesity, FROYLAN, asthma, diabetes mellitus, hypertension, anxiety and depression, who presents to the hospital with complaints of diffuse abdominal pain. The pain started 1 day ago. She describes it as aching pain which lasts several minutes. States it occurs every 15 minutes. Feels like a cramping sensation. Denies prior episodes. No notable aggravating or alleviating factors. Denies any relation ship with food consumption. Admits to nausea but no vomiting. Denies any vaginal discharge. Denies any urinary symptoms.. Last sexual activity was in 2015. Preceding onset of this symptoms, she states she ate out on Monday. Subsequently became constipated and took a laxative. After that she had a few episodes of diarrhea on Monday and Monday. Pain started on Monday. In the ER, patient received work-up with CT abdomen pelvis without contrast. This incidentally picked up groundglass opacities in patient's lower lungs. Patient also noted to have hypoxia at 90% on room air. She has chronic issues with her breathing and often gets short of breath but is also quite overweight. She has not noted any recent worsening of her breathing. Noted to be febrile in the ER as well. Interval history: 01/23/2020: Patient was seen and examined. She still with high white count. No fever. Complains of abdominal wall pain. 01/24/2020: Patient was seen and examined. White count is improving. No fever. Complains of abdominal wall pain. 01/25/2020: Patient was seen and examined. White count is improving. Afebrile. Improving overall. Repeat cultures still positive for Enterococcus. 01/26/2020: Patient was seen and examined. Had low-grade fever of 100.6 last night. Stable on 4 L of nasal cannula oxygen." 01/27/2020 Still unclear where the source of the patient's infection might be. Per ID, they suspect intra-abdominal source such as the bowel or tract. We will repeat a CT abdomen and this time and on the pelvis as well. This will be done with IV and oral contrast to look for any potential abscesses could have formed along her bowel. She still having vaginal bleeding and states that sometimes she bleeds for an entire month. She does not follow with a [facility] regularly as she does not have insurance. Patient states she feels okay today. MATTHEW is being arranged reportedly. Daptomycin continues. Lower WBC and lower hemoglobin down to 8. Latest blood culture is also positive for Enterococcus, same organism as the previous cultures per micro lab. 01/28/2020 CT abdomen/pelvis with contrast showed possible left renal mass and I have ordered a renal ultrasound to get a closer look at this. Renal ultrasound showed this is likely an abscess rather than a solid tumor. We will need urology opinion and I will give them a call to see if they would like the patient transferred for intervention or if IR would be able to drain this here. Patient remains afebrile. Blood cultures 1/2 growing MRSA. Patient believes the suspected abscess in her left kidney may be the source of her left upper quadrant and left flank pain. 01/29/2020 I called [facility] and spoke with the urologist on staff there and then he called their interventional radiologist had a lengthy discussion about the patient's imaging studies and how this should be addressed. They believe the patient's renal lesion is likely a phlegmon which may turn into an abscess in the near future. They recommended against attempting to drain this lesion until it becomes an actual liquid abscess. They also noted a lesion in the patient's spleen consistent with septic emboli and similar to the kidney lesion. I believe the patient has showered her organ systems with septic emboli likely from a central source, suspected to be infected endocarditis. MATTHEW was not able to be done as mentioned previously and this will need to be repeated in the near future. We will repeat blood cultures today and if these remain negative we may explore transfer to a CT surgery facility once we can confirm a valvular vegetation on MATTHEW. Patient has no new complaints today. I examined her buttock regions and did not see any open wounds that could be a source for MRSA infection. The patient had mentioned previously having some irritation and possibly an open wound in that area. 01/30/2020 Most recent set of results of blood cultures on 01/26 have now resulted as 1/2 bottles contaminated with coag negative staph, otherwise blood cultures are negative. Patient is continued on daptomycin. Blood cultures drawn yesterday are still pending. Patient states she feels slightly better. Dr. Kimbrough is planning to repeat MATTHEW attempt next week. This is certainly indicated given that she probably has a central source of bloodstream infection showering multiple organs, most likely infected endocarditis. Possible she seeded her heart valves from a skin infection became bacteremia. 01/31/2020 Blood cultures are growing staph species in 1/2 bottles, suspect this may be a contaminant. Patient is having a bit more pain in her left flank and abdomen likely due to the septic emboli in her kidney. She has been using morphine overnight and explained to her that this will not provide lasting pain relief and she should use the Percocet instead and reserve the morphine for breakthrough pain. I also discussed this with the nurse. I have ordered a MATTHEW to be done on Monday assuming Dr. Kimbrough is available for this. I noted she had a positive mycoplasma IgG antibody earlier in the admission she was appropriately treated with a course of azithromycin. Her blood cultures have not grown mycoplasma and this may be simply antibodies from an exposure in the past other than an active infection. D-dimer is higher. We will check PVL BLE to rule out DVT. There is no PE on a recent CTPA. 02/01/2020 Most recent 1/2 blood cultures still growing coag negative staph highly likely a contaminant. If this is the case, patient is to consecutive negative blood culture results from different days. We could say blood is likely cleared of infection as of 01/26. We continue to plan for MATTHEW hopefully on Monday. Order has been placed but the timing of the procedure will be entirely up to Dr. Cassy frank's availability. Patient likely has obesity hypoventilation syndrome and we should not push her oxygen towards 100%. She will likely breathe and feel better overall at a lower O2 saturation around 92% or higher. She is at risk for CO2 retention we do not keep this in mind. 02/02/2020 Patient still having significant left upper quadrant pain likely due to developing splenic abscess. We will repeat a CT abdomen/pelvis with contrast in the next 48 hours to see if this has gone from being a phlegmon to a drainable abscess. Per my discussion with [facility] interventional radiology, they did not recommend attempting to drain any septic emboli unless it had clear evidence of being a liquid abscess. I have added gabapentin to help with the pain and we will continue Percocet and then also morphine for breakthrough pain. Other than that, patient has no new complaints. Will hopefully have MATTHEW done again in the next 48 hours. This is pending Dr. Kimbrough availability. 02/03/2020 Unable to get MATTHEW today due to anesthesia refusing to attempt this again here they stated patient's airway is extremely tenuous and they were barely able to safely intubate the patient previously. Dr. Kimbrough was also concerned after speaking with them that he would likely not have success on the second attempt either. He recommended treating the patient with 6 weeks of IV antibiotics for presumed infective endocarditis. It would be helpful if the patient lost a significant amount of weight over the next 6 weeks as this may assist with the difficult anatomy of her neck. Patient could potentially be discharged home if case management is able to arrange outpatient infusions. She will need a PICC line placed and to have her central line removed. I will place an order for this to be done tomorrow. Patient will need a physician to follow-up her care after she leaves if she continues on IV antibiotics. She will need periodic labs over the next 6 weeks and someone to monitor these. Reason For Visit: HYPOXIA,FEVER Physical Exam Vital Signs: Temp Pulse Resp BP Pulse Ox 98.3 F 107 H 24 H 135/53 H 93 02/03/20 16:46 02/03/20 16:46 02/03/20 16:46 02/03/20 16:46 02/03/20 16:46 Intake & Output 02/02/20 02/03/20 02/04/20 06:59 06:59 06:59 Intake Total 1260 1280 135 Output Total 0 Balance 1260 1280 135 Weight 180 kg 180.2 kg 55.6 kg Exam: General appearance: PRESENT: no acute distress, super morbidly obese with BMI 72.7, states she has a bit less pain today Head exam: PRESENT: atraumatic, normocephalic Eye exam: PRESENT: conjunctiva pink. ABSENT: scleral icterus Mouth exam: PRESENT: moist Respiratory exam: PRESENT: clear to auscultation syl. ABSENT: rales, rhonchi, wheezes Cardiovascular exam: PRESENT: RRR. ABSENT: diastolic murmur, rubs, systolic murmur; chronic +2 BLE edema GI/Abdominal exam: PRESENT: normal bowel sounds, soft, mild left-sided tenderness over her spleen. ABSENT: distended, guarding, mass, organolmegaly, rebound Neurological exam: PRESENT: alert, awake, oriented to person, oriented to place, oriented to time, oriented to situation Psychiatric exam: PRESENT: appropriate affect, normal mood Skin exam: PRESENT: dry, intact, warm Results Laboratory Results: 02/03/20 05:00 02/03/20 05:00 02/03/20 02/03/20 05:00 05:00 WBC 11.8 H RBC 3.11 L Hgb 8.0 L Hct 26.3 L MCV 85 MCH 25.8 L MCHC 30.4 L RDW 17.7 H Plt Count 414 Seg Neutrophils % 78.0 Sodium 137.1 Potassium 4.7 Chloride 102 Carbon Dioxide 29 Anion Gap 6 BUN 14 Creatinine 0.84 Est GFR ( Amer) > 60 Glucose 177 H Calcium 9.3 01/29/20 18:55 Blood Blood Culture (PCR) - Final Staphylococcus Species 01/29/20 18:55 Blood Blood Culture - Final Staphylococcus Epidermidis 01/25/20 01/26/20 16:00 05:33 Creatine Kinase < 20 L 30 Impressions: Chest/Abdomen CTA 01/22/20 00:00 IMPRESSION: 1. No evidence of pulmonary embolus. 2. Scattered mosaic attenuation throughout the lungs possibly secondary to small airway disease or hypoventilatory change. 3. Trace left pleural effusion. Chest X-Ray 01/25/20 00:00 IMPRESSION: New right central venous catheter with tip at the right atrium. No pneumothorax. Mild pulmonary edema with increasing small left pleural effusion. Abdomen/Pelvis CT 01/27/20 16:30 IMPRESSION: Cannot exclude a 32 mm mass the lower pole the left kidney versus focal pyelonephritis. Left pleural effusion with associated atelectasis in the left lower lobe. Renal Ultrasound 01/28/20 00:00 IMPRESSION: Avascular approximately 3 cm mass off the inferior pole the left kidney. This most likely represents infectious or inflammatory process. Venous Doppler Study 01/31/20 15:23 IMPRESSION: No DVT in the bilateral lower extremities. Assessment and Plan - Diagnosis (1) Sepsis Qualifiers: Sepsis type: sepsis due to unspecified organism Sepsis acute organ dysfunction status: without acute organ dysfunction Qualified Code(s): A41.9 - Sepsis, unspecified organism Is this a current diagnosis for this admission?: Yes (2) Abdominal pain, acute, generalized Is this a current diagnosis for this admission?: Yes (3) Menometrorrhagia Is this a current diagnosis for this admission?: Yes (4) Morbid obesity with BMI of 70 and over, adult Is this a current diagnosis for this admission?: Yes (5) FROYLAN on CPAP Is this a current diagnosis for this admission?: Yes (6) Diabetes mellitus type 2 in obese Is this a current diagnosis for this admission?: Yes (7) Essential hypertension Is this a current diagnosis for this admission?: Yes (8) Acute on chronic respiratory failure with hypoxemia Is this a current diagnosis for this admission?: Yes (9) Suspected COVID-19 virus infection Is this a current diagnosis for this admission?: Yes - Plan Summary Summary: Per Previous Physician: "History of Present Illness: SARAHI ST is a 34 year old female with history of morbid obesity, FROYLAN, asthma, diabetes mellitus, hypertension, anxiety and depression, who presents to the hospital with complaints of diffuse abdominal pain. The pain started 1 day ago. She describes it as aching pain which lasts several minutes. States it occurs every 15 minutes. Feels like a cramping sensation. Denies prior episodes. No notable aggravating or alleviating factors. Denies any relationship with food consumption. Admits to nausea but no vomiting. Denies any vaginal discharge. Denies any urinary symptoms.. Last sexual activity was in 2015. Preceding onset of this symptoms, she states she ate out on Monday. Subsequently became constipated and took a laxative. After that she had a few episodes of diarrhea on Monday and Monday. Pain started on Monday. In the ER, patient received work-up with CT abdomen pelvis without contrast. This incidentally picked up groundglass opacities in patient's lower lungs. Patient also noted to have hypoxia at 90% on room air. She has chronic issues with her breathing and often gets short of breath but is also quite overweight. She has not noted any recent worsening of her breathing. Noted to be febrile in the ER as well." (1) acute on chronic hypoxemic respiratory failure Per Previous Physician: "SPO2 was 86% on room air. CT of abdomen did apple picker some groundglass opacities in her abdomen raising concern for pneumonia. Patient also has super obesity which likely contributing to hypoventilation compounding her hypoxia. Blood cultures positive for Enterococcus." -Improved Continues to use BiPAP when sleeping (2) Abdominal pain, acute, generalized Per Previous Physician: "Generalized and nonspecific. Normal lipase. CT of abdomen pelvis done without contrast, does not show any worrisome etiologies. Did note abdominal fat pad stranding concerning for panniculitis. PPI, stool softener, MiraLAX as needed, antibiotics for panniculitis/abdominal wall cellulitis." Resolved pain and constipation Repeat CT abdomen/pelvis with IV and oral contrast showed suspected left renal mass Renal ultrasound showed likely left renal abscess rather than solid mass Had urology at outside hospital to review imaging to decide if suspected left renal abscess can be drained by IR or if the patient needs to be transferred for surgical intervention; they recommended continued IV antibiotics and repeat imaging in the next few weeks if patient worsens clinically as patient may need abscesses drained. GPN added, oral narcotics, initially and use morphine for breakthrough only (3) sepsis, persistent Enterococcus bacteremia Per Previous Physician: "Leukocytosis, febrile, hypoxic, tachycardic. Continue current antibiotics. Continue IV fluids. Blood culture 3 out of 3 positive for Enterococcus. Repeat blood cultures still positive for Enterococcus. Discussed with Dr. Maynard from infectious disease. We will switch Zyvox to daptomycin today. Repeat cultures in the morning. Echocardiogram did not visualize aortic artery well. Discussed with Dr. Kimbrough. Patient will need MATTHEW possibly Monday. Patient has no peripheral IV access." -sepsis criteria met, persistently infected blood cultures -source is GI versus source -cultures: Blood cultures 01/20+ for Enterococcus, 01/21+ for Enterococcus, 01/23+ for Enterococcus, 01/26 blood cultures growing coag negative staph contaminant in 1/2 bottles otherwise clear Repeat blood culture on 01/28 pending Stopped azithromycin; pt completed course for previously suspected mycoplasma -abx: Plan for daptomycin for [address] abdomen/pelvis with contrast showed likely septic emboli to left kidney and spleen; discussed with urology and IR at [facility], will hold off on draining these unless they turn into an abscess rather than what appears to be phlegmon -close hemodynamic monitoring -IVF as appropriate ID consult done Suspect infective endocarditis: Failed attempt at MATTHEW 01/27 due to difficult airway/esophagus placement of the probe, discussed with cardiology, per anesthesia and Dr. Kimbrough they are unable to reattempt MATTHEW due to extremely difficult airway and high risk of complication. Recommended 6 weeks of IV antibiotics for presumed endocarditis PICC line ordered, remove central line when this is done Possible discharge home with IV antibiotics in hospital can arrange funding, discussed with case management (4) Ruled out COVID-19 virus infection Test negative (5) Panniculitis Continue current antibiotics. Supportive treatment. Pain control. As local wound care (6) Hyperglycemia due to type 2 diabetes mellitus Takes metformin at home. Sliding scale insulin. Continue with Accu-Cheks. D iabetic diet. (7) Cutaneous candidiasis Nystatin topical (8) FROYLAN on CPAP nocturnal cpap (9) Morbid obesity with BMI of 70 and over, adult Recommend lifestyle modifications - Time Time Spent with patient: 25-34 minutes Medications reviewed and adjusted accordingly: Yes Anticipated Discharge Disposition: Home with Home Health Anticipated Discharge Timeframe: within 72 hours - Inpatient Certification Based on my medical assessment, after consideration of the patient's comorbid ities, presenting symptoms, or acuity I expect that the services needed warrant INPATIENT care.: Yes I certify that my determination is in accordance with my understanding of Medicare's requirements for reasonable and necessary INPATIENT services [42 CFR 412.3e].: Yes Medical Necessity: Significant Comorbidiites Make Outpatient Treatment Too Risky, Need Close Monitoring Due to Risk of Patient Decompensation, Need for IV Antibiotics, Risk of Complication if Not Cared For in Hospital, Risk of Diagnosis Which Will Require Inpatient Eval/Care/Monitoring
[2020-02-03] MEDS: INSULIN GLARGINE,HUM.REC.ANLOG 1,000 UNIT/10 ML VIAL SUBCUT SCH (21:07)
[2020-02-04] MEDS: ALBUTEROL SULFATE HFA (90 MCG/PUFF) 8 GM MDI IH SCH ×4 (00:18→17:04)
[2020-02-04] MEDS: PANTOPRAZOLE SODIUM 40 MG TABLET.DR PO SCH (05:26)
[2020-02-04] MEDS: HYDROXYZINE PAMOATE 50 MG CAPSULE PO SCH ×3 (05:26→22:23)
[2020-02-04] MEDS: OXYCODONE-ACETAMINOPHEN 5-325 MG TABLET PO PRN ×2 (05:29→22:22)
[2020-02-04] MEDS: INSULIN LISPRO 100 UNIT/ML 3 ML VIAL SUBCUT SCH ×4 (08:22→22:25)
[2020-02-04] MEDS: HEPARIN SOD (PORCINE) 5,000 UNIT/ML 1 ML VIAL SUBCUT SCH ×2 (09:06→22:26)
[2020-02-04] MEDS: ASCORBIC ACID 500 MG TABLET PO SCH ×2 (09:22→17:04)
[2020-02-04] MEDS: FERROUS SULFATE 325 MG TABLET PO SCH (09:22)
[2020-02-04] MEDS: CHOLECALCIFEROL (D3) 1,000 UNIT (25 MCG) TABLET PO SCH (09:22)
[2020-02-04] MEDS: DOCUSATE SODIUM 100 MG CAPSULE PO SCH ×2 (09:22→17:03)
[2020-02-04] MEDS: SERTRALINE HCL 50 MG TABLET PO SCH (09:22)
[2020-02-04] MEDS: GABAPENTIN 300 MG CAPSULE PO SCH ×2 (09:22→22:22)
[2020-02-04] MEDS: FLUTICASONE/VILANTEROL 100-25 MCG/DOSE IH SCH (09:23)
[2020-02-04] MEDS: ZINC SULFATE 220 MG CAPSULE PO SCH (09:23)
[2020-02-04] MEDS: MORPHINE SULFATE 10 MG/ML INJ IV PRN ×3 (09:27→19:33)
[2020-02-04] MEDS ORDERED: OXYCODONE-ACETAMINOPHEN 5-325 MG TABLET PO PRN (11:29)
--- NOTE | 2020-02-04 15:57 | RADIOLOGY REPORT (SQ) ---
EXAM DESCRIPTION: PICC INSERTION IMAGES COMPLETED DATE/TIME: 02/04/2020 3:15 pm REASON FOR STUDY: IV abx COMPARISON: None. FLUOROSCOPY TIME: Fluoroscopy was not used 3 portable chest radiographs saved to PACS. TECHNIQUE: Ultrasound guided PICC placement at bedside. LIMITATIONS: None. PROCEDURE: After written consent and assessment were obtained, ultrasound evaluation of potential ac cess sites were performed. After successfully identifying a patent left basilic vein, the left arm wa s prepped and draped in a sterile fashion along with the ultrasound probe. The entry site was anesthe tized with 1% lidocaine. A 21 gauge 7 cm needle was advanced through the skin and into the basilic ve in under live ultrasound guidance. An ultrasound image was saved to PACS confirming access site. A .018 guide wire was then inserted through the needle and into the venous system. The needle was then removed and an 11 blade scalpel was used to make a 1cm skin incision. A 5 fr peel-away sheath was ad vanced over the wire and into the venous system. A measurement was then made using the existing wire. The wire was then removed and the catheter trimmed. The PICC was advanced through the peel-away jones th and into the venous system. The peel-away sheath was removed and the catheter was adhered to the p atients arm with a stat lock. The catheter was then aspirated and flushed and a sterile bandage was p laced over the access site. Chest radiograph was saved to PACS confirming the catheter tip within th e superior vena cava. IMPRESSION: SUCCESSFUL PLACEMENT OF A 5 FR DUAL LUMEN 44 CM PICC IN THE LEFT BASILIC VEIN. COMMENT: Patient medication list reviewed: Yes- Quality ID# [id number]:Eligible professional attests to doc umenting in the medical record they obtained, updated, or reviewed the patient's current medications. . Quality ID 145: Final reports for procedures using fluoroscopy that document radiation exposure ezequiel pb, or exposure time and number of fluorographic images (if radiation exposure indices are not avail able) Quality ID #76: The patient was prepped and draped using maximum sterile barrier technique including cap, mask, sterile gown, sterile gloves, a large sterile sheet, hand hygiene, and 2% Chlorhexidine fo r cutaneous antisepsis. When ultrasound is used, sterile ultrasound techniques are followed requiring sterile gel and sterile probes. TECHNICAL DOCUMENTATION: JOB ID: [id number] 2010 [employer]- All Rights Reserved rev-07/14 Reading location - IP/workstation name: [id number]
[2020-02-04] MEDS ORDERED: KETOROLAC TROMETHAMINE INJ/PF 30 MG/1 ML SDV IV PRN (18:16)
--- NOTE | 2020-02-04 18:59 | PDOC PROGRESS REPORT ---
Subjective Date:: 02/04/20 Subjective:: SARAHI ST is a 34 year old female with history of morbid obesity, FROYLAN, ast hma, diabetes mellitus, hypertension, anxiety and depression, who presents to the hospital with complaints of diffuse abdominal pain. The pain started 1 day ago. She describes it as aching pain which lasts several minutes. States it occurs every 15 minutes. Feels like a cramping sensation. Denies prior episodes. No notable aggravating or alleviating factors. Denies any relationship with food consumption. Admits to nausea but no vomiting. Denies any vaginal discharge. Denies any urinary symptoms.. Last sexual activity was in 2015. Preceding onset of this symptoms, she states she ate out on Monday. Subsequently became constipated and took a laxative. After that she had a few episodes of diarrhea on Monday and Monday. Pain started on Monday. In the ER, patient received work-up with CT abdomen pelvis without contrast. This incidentally picked up groundglass opacities in patient's lower lungs. Patient also noted to have hypoxia at 90% on room air. She has chronic issues with her breathing and often gets short of breath but is also quite overweight. She has not noted any recent worsening of her breathing. Noted to be febrile in the ER as well. Interval history: 01/23/2020: Patient was seen and examined. She still with high white count. No fever. Complains of abdominal wall pain. 01/24/2020: Patient was seen and examined. White count is improving. No fever. Complains of abdominal wall pain. 01/25/2020: Patient was seen and examined. White count is improving. Afebrile. Improving overall. Repeat cultures still positive for Enterococcus. 01/26/2020: Patient was seen and examined. Had low-grade fever of 100.6 last night. Stable on 4 L of nasal cannula oxygen." 01/27/2020 Still unclear where the source of the patient's infection might be. Per ID, they suspect intra-abdominal source such as the bowel or tract. We will repeat a CT abdomen and this time and on the pelvis as well. This will be done with IV and oral contrast to look for any potential abscesses could have formed along her bowel. She still having vaginal bleeding and states that sometimes she bleeds for an entire month. She does not follow with a french drawer regularly as she does not have insurance. Patient states she feels okay today. MATTHEW is being arranged reportedly. Daptomycin continues. Lower WBC and lower hemoglobin down to 8. Latest blood culture is also positive for Enterococcus, same organism as the previous cultures per micro lab. 01/28/2020 CT abdomen/pelvis with contrast showed possible left renal mass and I have ordered a renal ultrasound to get a closer look at this. Renal ultrasound showed this is likely an abscess rather than a solid tumor. We will need urology opinion and I will give them a call to see if they would like the patient transferred for intervention or if IR would be able to drain this here. Patient remains afebrile. Blood cultures 1/2 growing MRSA. Patient believes the suspected abscess in her left kidney may be the source of her left upper quadrant and left flank pain. 01/29/2020 I called [facility] and spoke with the urologist on staff there and then he called their interventional radiologist had a lengthy discussion about the patient's imaging studies and how this should be addressed. They believe the farzad salcido's renal lesion is likely a phlegmon which may turn into an abscess in the near future. They recommended against attempting to drain this lesion until it becomes an actual liquid abscess. They also noted a lesion in the patient's spleen consistent with septic emboli and similar to the kidney lesion. I believe the patient has showered her organ systems with septic emboli likely from a central source, suspected to be infected endocarditis. MATTHEW was not able to be done as mentioned previously and this will need to be repeated in the near future. We will repeat blood cultures today and if these remain negative we may explore transfer to a CT surgery facility once we can confirm a valvular vegetation on MATTHEW. Patient has no new complaints today. I examined her buttock regions and did not see any open wounds that could be a source for MRSA infection. The patient had mentioned previously having some irritation and possibly an open wound in that area. 01/30/2020 Most recent set of results of blood cultures on 01/26 have now resulted as 1/2 bottles contaminated with coag negative staph, otherwise blood cultures are negative. Patient is continued on daptomycin. Blood cultures drawn yesterday are still pending. Patient states she feels slightly better. Dr. Kimbrough is planning to repeat MATTHEW attempt next week. This is certainly indicated given that she probably has a central source of bloodstream infection showering multiple organs, most likely infected endocarditis. Possible she seeded her heart valves from a skin infection became bacteremia. 01/31/2020 Blood cultures are growing staph species in 1/2 bottles, suspect this may be a contaminant. Patient is having a bit more pain in her left flank and abdomen likely due to the septic emboli in her kidney. She has been using morphine overnight and explained to her that this will not provide lasting pain relief and she should use the Percocet instead and reserve the morphine for breakthrough pain. I also discussed this with the nurse. I have ordered a MATTHEW to be done on Monday assuming Dr. Kimbrough is available for this. I noted she had a positive mycoplasma IgG antibody earlier in the admission she was approp riately treated with a course of azithromycin. Her blood cultures have not grown mycoplasma and this may be simply antibodies from an exposure in the past other than an active infection. D-dimer is higher. We will check PVL BLE to rule out DVT. There is no PE on a recent CTPA. 02/01/2020 Most recent 1/2 blood cultures still growing coag negative staph highly likely a contaminant. If this is the case, patient is to consecutive negative blood culture results from different days. We could say blood is likely cleared of infection as of 01/26. We continue to plan for MATTHEW hopefully on Monday. Order has been placed but the timing of the procedure will be entirely up to Dr. Kimbrough's availability. Patient likely has obesity hypoventilation syndrome and we should not push her oxygen towards 100%. She will likely breathe and feel better overall at a lower O2 saturation around 92% or higher. She is at risk for CO2 retention we do not keep this in mind. 02/02/2020 Patient still having significant left upper quadrant pain likely due to developing splenic abscess. We will repeat a CT abdomen/pelvis with contrast in the next 48 hours to see if this has gone from being a phlegmon to a drainable abscess. Per my discussion with [facility] interventional radiology, they did not recommend attempting to drain any septic emboli unless it had clear evidence of being a liquid abscess. I have added gabapentin to help with the pain and we will continue Percocet and then also morphine for breakthrough pain. Other than that, patient has no new complaints. Will hopefully have MATTHEW done again in the next 48 hours. This is pending Dr. Kimbrough availability. 02/03/2020 Unable to get MATTHEW today due to anesthesia refusing to attempt this again here they stated patient's airway is extremely tenuous and they were barely able to safely intubate the patient previously. Dr. Kimbrough was also concerned after speaking with them that he would likely not have success on the second attempt either. He recommended treating the patient with 6 weeks of IV antibiotics for presumed infective endocarditis. It would be helpful if the patient lost a significant amount of weight over the next 6 weeks as this may assist with the difficult anatomy of her neck. Patient could potentially be discharged home if case management is able to arrange outpatient infusions. She will need a PICC line placed and to have her central line removed. I will place an order for this to be done tomorrow. Patient will need a physician to follow-up her care after she leaves if she continues on IV antibiotics. She will need periodic labs over the next 6 weeks and someone to monitor these. 02/04/20 Patient was seen and examined at bedside. She is still complaining of left sided flank pain which is still likely from septic emboli to her left kidney. I have increased her percocet to q3 hrs and increased her morphine. She got a PICC line today for planned 6 weeks of abx. She is still currently requiring O2 support. Discharge planning still trying to work on setting up home infusion for dapto as well as home O2. Will repeat CT abdomen/pelvis to assess septic emboli to left kidney Reason For Visit: HYPOXIA,FEVER Physical Exam Vital Signs: Temp Pulse Resp BP Pulse Ox 98.1 F 108 H 24 H 121/57 L 100 02/04/20 16:06 02/04/20 16:06 02/04/20 16:06 02/04/20 16:06 02/04/20 16:06 Intake & Output 02/03/20 02/04/20 02/05/20 06:59 06:59 06:59 Intake Total 3135 328 6504 Balance 6696 109 4275 Weight 180.2 kg 180.2 kg 180.2 kg General appearance: PRESENT: no acute distress, cooperative, morbidly obese Head exam: PRESENT: atraumatic, normocephalic Eye exam: PRESENT: EOMI, PERRLA Mouth exam: PRESENT: moist Neck exam: PRESENT: full ROM Respiratory exam: PRESENT: clear to auscultation syl, symmetrical, other - dsypneic on exertion Cardiovascular exam: PRESENT: RRR, +S1, +S2 GI/Abdominal exam: PRESENT: normal bowel sounds, soft. ABSENT: rebound, tenderness Extremities exam: PRESENT: full ROM Musculoskeletal exam: PRESENT: full ROM Neurological exam: PRESENT: alert, awake, oriented to person, oriented to place, oriented to time, oriented to situation Psychiatric exam: PRESENT: normal mood Skin exam: PRESENT: normal color Results Laboratory Results: 02/03/20 05:00 02/03/20 05:00 01/29/20 18:51 Blood Blood Culture - Final NO GROWTH IN 5 DAYS 01/25/20 01/26/20 16:00 05:33 Creatine Kinase < 20 L 30 Impressions: Chest/Abdomen CTA 01/22/20 00:00 IMPRESSION: 1. No evidence of pulmonary embolus. 2. Scattered mosaic attenuation throughout the lungs possibly secondary to small airway disease or hypoventilatory change. 3. Trace left pleural effusion. Chest X-Ray 01/25/20 00:00 IMPRESSION: New right central venous catheter with tip at the right atrium. No pneumothorax. Mild pulmonary edema with increasing small left pleural effusion. Abdomen/Pelvis CT 01/27/20 16:30 IMPRESSION: Cannot exclude a 32 mm mass the lower pole the left kidney versus focal pyelonephritis. Left pleural effusion with associated atelectasis in the left lower lobe. Renal Ultrasound 01/28/20 00:00 IMPRESSION: Avascular approximately 3 cm mass off the inferior pole the left kidney. This most likely represents infectious or inflammatory process. Venous Doppler Study 01/31/20 15:23 IMPRESSION: No DVT in the bilateral lower extremities. PICC Line Insertion 02/04/20 00:00 IMPRESSION: SUCCESSFUL PLACEMENT OF A 5 FR DUAL LUMEN 44 CM PICC IN THE LEFT BASILIC VEIN. Assessment and Plan - Diagnosis (1) Bacteremia due to Enterococcus Is this a current diagnosis for this admission?: Yes Plan: - CT abdomen/pelvis with contrast showed likely septic emboli to left kidney and spleen; discussed with urology and IR at [facility], will hold off on draining these unless they turn into an abscess rather than what appears to be phlegmon - cultures: Blood cultures 01/20+ for Enterococcus, 01/21+ for Enterococcus, 01/23+ for Enterococcus, 01/26 blood cultures growing coag negative staph co ntaminant in 1/2 bottles otherwise clear, 01/28 growing staph epidermididis - awaiting 02/03 blood culture - TTE 01/24/20 cannot exclude vegetation. LV systolic function is normal, EF 55 to 60%, mild MR, moderate AR. - unable to confirm endocarditis with MATTHEW due to body habitus and she is high risk with sedation - Per ID daptomycin for 6 weeks via PICC line - central line removed - Patient can be discharged once we are able to set up home infusion (2) Septic embolism Is this a current diagnosis for this admission?: Yes Plan: -Repeat CT abdomen/pelvis with IV and oral contrast showed suspected left renal mass Renal ultrasound showed likely left renal abscess rather than solid mass Had urology at outside hospital to review imaging to decide if suspected left renal abscess can be drained by IR or if the patient needs to be transferred for surgical intervention; they recommended continued IV antibiotics and repeat imaging in the next few weeks if patient worsens clinically as patient may need abscesses drained. GPN added, oral narcotics, initially and use morphine for breakthrough only (3) Acute on chronic respiratory failure with hypoxemia Is this a current diagnosis for this admission?: Yes Plan: - still requiring O2 support, was not previously on o2 at home - COVID negative - will ask the nurse to wean her off - continue BIPAP PRn and at night (4) FROYLAN on CPAP Is this a current diagnosis for this admission?: Yes Plan: nocturnal cpap (5) Panniculitis Is this a current diagnosis for this admission?: Yes Plan: - currently on Dapto for Enterococcus bacteremia. (6) Diabetes mellitus type 2 in obese Is this a current diagnosis for this admission?: Yes Plan: - continue SSI, hypoglycemia protocol and accucheck (7) Sepsis Qualifiers: Sepsis type: sepsis due to unspecified organism Sepsis acute organ dysfunction status: without acute organ dysfunction Qualified Code(s): A41.9 - Sepsis, unspecified organism Is this a current diagnosis for this admission?: Yes Plan: RESOLVED - Leukocytosis, febrile, hypoxic, tachycardic. - source likely endocarditis - currently on Daptomycin. (8) Morbid obesity with BMI of 70 and over, adult Is this a current diagnosis for this admission?: Yes Plan: - BMI over 70 - advised diet and lifestyle modification (9) Essential hypertension Is this a current diagnosis for this admission?: Yes (10) Menometrorrhagia Is this a current diagnosis for this admission?: Yes - Time Time Spent with patient: 25-34 minutes Medications reviewed and adjusted accordingly: Yes Anticipated Discharge Disposition: Home with Home Health Anticipated Discharge Timeframe: TBD
[2020-02-04] MEDS: PRAZOSIN HCL 1 MG PO SCH (22:23)
[2020-02-04] MEDS: INSULIN GLARGINE,HUM.REC.ANLOG 1,000 UNIT/10 ML VIAL SUBCUT SCH (22:24)
[2020-02-05] MEDS: PANTOPRAZOLE SODIUM 40 MG TABLET.DR PO SCH (05:43)
[2020-02-05] MEDS: OXYCODONE-ACETAMINOPHEN 5-325 MG TABLET PO PRN (05:44)
[2020-02-05] MEDS: HYDROXYZINE PAMOATE 50 MG CAPSULE PO SCH ×3 (05:44→21:42)
[2020-02-05] MEDS: ALBUTEROL SULFATE HFA (90 MCG/PUFF) 8 GM MDI IH SCH ×5 (05:45→23:56)
[2020-02-05 07:20] LABS: ABSOLUTE BASOPHILS # (AUTO) 0.1 10^3/uL (0.0-0.2); ABSOLUTE EOSINOPHILS # (AUTO) 0.2 10^3/uL (0.0-0.6); ABSOLUTE LYMPHOCYTES (AUTO) 2.3 10^3/uL (0.5-4.7); ABSOLUTE MONOCYTES (AUTO) 0.6 10^3/uL (0.1-1.4); ABSOLUTE NEUT (AUTO) 8.1 10^3/uL (1.7-8.2); BASOPHILS % (AUTO) 0.5 % (0-2); EOSINOPHILS % (AUTO) 1.8 % (0-6); HEMATOCRIT 25.6 % (36.0-47.0); LYMPHOCYTES % (AUTO) 20.8 % (13-45); MEAN CORPUSCULAR HEMOGLOBIN 25.7 pg (27.0-33.4); MEAN CORPUSCULAR HGB CONC 30.4 g/dL (32.0-36.0); MEAN CORPUSCULAR VOLUME 84 fl (80-97); MONOCYTES % (AUTO) 5.4 % (3-13); PLATELET COUNT 409 10^3/uL (150-450); RED BLOOD COUNT 3.04 10^6/uL (3.72-5.28); RED CELL DISTRIBUTION WIDTH 17.8 % (11.5-14.0); SEGMENTED NEUTROPHILS % (AUTO) 71.5 % (42-78); TOTAL CELLS COUNTED % (AUTO) 100 %; WHITE BLOOD COUNT 11.3 10^3/uL (4.0-10.5)
[2020-02-05 07:37] LABS: HEMOGLOBIN 7.8 g/dL (12.0-15.5)
[2020-02-05] MEDS: INSULIN LISPRO 100 UNIT/ML 3 ML VIAL SUBCUT SCH ×4 (07:43→21:43)
[2020-02-05 07:50] LABS: ALBUMIN 3.3 g/dL (3.5-5.0); ALKALINE PHOSPHATASE 206 U/L (38-126); ANION GAP 8 (5-19); ASPARTATE AMINO TRANSFERASE 24 U/L (14-36); BILIRUBIN,DIRECT 0.2 mg/dL (0.0-0.4); BILIRUBIN,TOTAL 0.5 mg/dL (0.2-1.3); BLOOD UREA NITROGEN 12 mg/dL (7-20); CALCIUM 9.3 mg/dL (8.4-10.2); CARBON DIOXIDE 29 mmol/L (22-30); CHLORIDE 100 mmol/L (98-107); GLUCOSE 181 mg/dL (75-110); POTASSIUM 4.7 mmol/L (3.6-5.0)
[2020-02-05] MEDS: MORPHINE SULFATE 10 MG/ML INJ IV PRN (07:52)
[2020-02-05] MEDS: HEPARIN SOD (PORCINE) 5,000 UNIT/ML 1 ML VIAL SUBCUT SCH ×2 (09:56→21:34)
[2020-02-05] MEDS: GABAPENTIN 300 MG CAPSULE PO SCH ×2 (09:56→21:43)
[2020-02-05] MEDS: SERTRALINE HCL 50 MG TABLET PO SCH (09:56)
[2020-02-05] MEDS: FERROUS SULFATE 325 MG TABLET PO SCH (09:56)
[2020-02-05] MEDS: DOCUSATE SODIUM 100 MG CAPSULE PO SCH ×2 (09:56→17:55)
[2020-02-05] MEDS: ASCORBIC ACID 500 MG TABLET PO SCH ×2 (09:56→17:55)
[2020-02-05] MEDS: ZINC SULFATE 220 MG CAPSULE PO SCH (09:56)
[2020-02-05] MEDS: CHOLECALCIFEROL (D3) 1,000 UNIT (25 MCG) TABLET PO SCH (09:56)
[2020-02-05] MEDS: NORMAL SALINE 10 ML SDV (SCHEDULED) IV SCH ×2 (09:58→23:24)
[2020-02-05] MEDS: FLUTICASONE/VILANTEROL 100-25 MCG/DOSE IH SCH (10:05)
[2020-02-05] MEDS: MORPHINE SULFATE IR 15 MG TABLET PO PRN ×2 (12:17→18:41)
--- NOTE | 2020-02-05 14:34 | RADIOLOGY REPORT (SQ) ---
EXAM DESCRIPTION: CT ABD/PELVIS WITH IV ONLY IMAGES COMPLETED DATE/TIME: 02/05/2020 1:02 pm REASON FOR STUDY: follow up renal abscess COMPARISON: CT 01/27/2020 TECHNIQUE: CT scan of the abdomen and pelvis performed using helical scanning technique with dynamic intravenous contrast injection. No oral contrast. Images reviewed with lung, soft tissue, and bone windows. Reconstructed coronal and sagittal MPR images reviewed. Delayed images for evaluation of the urinary system also acquired. All images stored on PACS. All CT scanners at this facility use dose modulation, iterative reconstruction, and/or weight based d osing when appropriate to reduce radiation dose to as low as reasonably achievable (ALARA). [facility]: Dose Right [facility]: CareDose [facility]: Dose Right [facility]: Teradose 4D [facility]: [place] CONTRAST TYPE AND DOSE: contrast/concentration: Isovue 350.00 mmol/ml; Total Contrast Delivered: 100 .0 ml; Total Saline Delivered: 45.0 ml RENAL FUNCTION: None required. The patient is less than 50 years old. RADIATION DOSE: CT Rad equipment meets quality standard of care and radiation dose reduction techniq ues were employed. CTDIvol: 31.9 - 38.9 mGy. DLP: 3690 mGy-cm.. LIMITATIONS: None. FINDINGS: LOWER CHEST: At least moderate left-sided pleural effusion, partially evaluated. Lower lo be consolidation, likely atelectasis. LIVER: Normal size. No masses. No dilated ducts. SPLEEN: Curvilinear area of hypoattenuation within the anterior spleen measuring approximately 3.2 by 1.8 cm (series 2, image 33) this is stable compared to prior exam. PANCREAS: No masses. No significant calcifications. No adjacent inflammation or peripancreatic fluid collections. Pancreatic duct not dilated. GALLBLADDER: No identified stones by CT criteria. No inflammatory changes to suggest cholecystitis. ADRENAL GLANDS: No significant masses or asymmetry. RIGHT KIDNEY AND URETER: Ill-defined area of hypoattenuation involving the upper and lower pole elyssa x (series 2, image 49 and 41). No definite solid masses. No significant calcifications. No hydro nephrosis or hydroureter. LEFT KIDNEY AND URETER: Again seen is the focal area of hypoattenuation along the medial lower pole l eft kidney measuring 3.3 by 2.5 cm, this cyst grossly stable in size and distribution compared to arik or exam. No significant calcifications. No hydronephrosis or hydroureter. AORTA AND VESSELS: No aneurysm. No dissection. Renal arteries, SMA, celiac without stenosis. RETROPERITONEUM: No retroperitoneal adenopathy, hemorrhage or masses. BOWEL AND PERITONEAL CAVITY: No evidence of intestinal obstruction. No focal bowel wall thickening. Moderate stool throughout the colon. APPENDIX: Not clearly identified. PELVIS: Pelvic free fluid, adenopathy or mass. Unremarkable urinary bladder which is largely decompr essed. ABDOMINAL WALL: Morbid obesity. Skin thickening along the inferior pannus, possibly panniculitis. M ildly prominent left inguinal lymph node, etiology uncertain. BONES: No acute bony abnormality. No suspicious lytic or blastic osseous lesions. OTHER: No other significant finding. IMPRESSION: 1. Grossly stable appearance of the ill-defined area of hypoattenuation along the infer ior left kidney. Again, findings may represent pyelonephritis, solid mass or renal infarct with the former favored. There are additional ill-defined areas of hypoattenuation involving the right renal cortex suggestive of pyelonephritis. Recommend correlation with urinalysis. 2. Stable linear area of hypoattenuation within the spleen, possibly infarct or post infectious/trau matic sequelae. 3. Morbid obesity with skin thickening along the pannus suggestive of panniculitis. 4. At least moderate left-sided pleural effusion, partially evaluated. Associated lower lobe atelec tasis. TECHNICAL DOCUMENTATION: JOB ID: [id number] Quality ID # [id number]: Final reports with documentation of one or more dose reduction techniques (e.g., Au tomated exposure control, adjustment of the mA and/or kV according to patient size, use of iterative reconstruction technique) 2010 [employer]- All Rights Reserved Reading location - IP/workstation name: [email or web address]
--- NOTE | 2020-02-05 20:51 | PDOC PROGRESS REPORT ---
Subjective Date:: 02/05/20 Subjective:: SARAHI ST is a 34 year old female with history of morbid obesity, FROYLAN, ast hma, diabetes mellitus, hypertension, anxiety and depression, who presents to the hospital with complaints of diffuse abdominal pain. The pain started 1 day ago. She describes it as aching pain which lasts several minutes. States it occurs every 15 minutes. Feels like a cramping sensation. Denies prior episodes. No notable aggravating or alleviating factors. Denies any relationship with food consumption. Admits to nausea but no vomiting. Denies any vaginal discharge. Denies any urinary symptoms.. Last sexual activity was in 2015. Preceding onset of this symptoms, she states she ate out on Monday. Subsequently became constipated and took a laxative. After that she had a few episodes of diarrhea on Monday and Monday. Pain started on Monday. In the ER, patient received work-up with CT abdomen pelvis without contrast. This incidentally picked up groundglass opacities in patient's lower lungs. Patient also noted to have hypoxia at 90% on room air. She has chronic issues with her breathing and often gets short of breath but is also quite overweight. She has not noted any recent worsening of her breathing. Noted to be febrile in the ER as well. Interval history: 01/23/2020: Patient was seen and examined. She still with high white count. No fever. Complains of abdominal wall pain. 01/24/2020: Patient was seen and examined. White count is improving. No fever. Complains of abdominal wall pain. 01/25/2020: Patient was seen and examined. White count is improving. Afebrile. Improving overall. Repeat cultures still positive for Enterococcus. 01/26/2020: Patient was seen and examined. Had low-grade fever of 100.6 last night. Stable on 4 L of nasal cannula oxygen." 01/27/2020 Still unclear where the source of the patient's infection might be. Per ID, they suspect intra-abdominal source such as the bowel or tract. We will repeat a CT abdomen and this time and on the pelvis as well. This will be done with IV and oral contrast to look for any potential abscesses could have formed along her bowel. She still having vaginal bleeding and states that sometimes she bleeds for an entire month. She does not follow with a proposal engineer regularly as she does not have insurance. Patient states she feels okay today. MATTHEW is being arranged reportedly. Daptomycin continues. Lower WBC and lower hemoglobin down to 8. Latest blood culture is also positive for Enterococcus, same organism as the previous cultures per micro lab. 01/28/2020 CT abdomen/pelvis with contrast showed possible left renal mass and I have ordered a renal ultrasound to get a closer look at this. Renal ultrasound showed this is likely an abscess rather than a solid tumor. We will need urology opinion and I will give them a call to see if they would like the patient transferred for intervention or if IR would be able to drain this here. Patient remains afebrile. Blood cultures 1/2 growing MRSA. Patient believes the suspected abscess in her left kidney may be the source of her left upper quadrant and left flank pain. 01/29/2020 I called [facility] and spoke with the urologist on staff there and then he called their interventional radiologist had a lengthy discussion about the patient's imaging studies and how this should be addressed. They believe the farzad salcido's renal lesion is likely a phlegmon which may turn into an abscess in the near future. They recommended against attempting to drain this lesion until it becomes an actual liquid abscess. They also noted a lesion in the patient's spleen consistent with septic emboli and similar to the kidney lesion. I believe the patient has showered her organ systems with septic emboli likely from a central source, suspected to be infected endocarditis. MATTHEW was not able to be done as mentioned previously and this will need to be repeated in the near future. We will repeat blood cultures today and if these remain negative we may explore transfer to a CT surgery facility once we can confirm a valvular vegetation on MATTHEW. Patient has no new complaints today. I examined her buttock regions and did not see any open wounds that could be a source for MRSA infection. The patient had mentioned previously having some irritation and possibly an open wound in that area. 01/30/2020 Most recent set of results of blood cultures on 01/26 have now resulted as 1/2 bottles contaminated with coag negative staph, otherwise blood cultures are negative. Patient is continued on daptomycin. Blood cultures drawn yesterday are still pending. Patient states she feels slightly better. Dr. Kimbrough is planning to repeat MATTHEW attempt next week. This is certainly indicated given that she probably has a central source of bloodstream infection showering multiple organs, most likely infected endocarditis. Possible she seeded her heart valves from a skin infection became bacteremia. 01/31/2020 Blood cultures are growing staph species in 1/2 bottles, suspect this may be a contaminant. Patient is having a bit more pain in her left flank and abdomen likely due to the septic emboli in her kidney. She has been using morphine overnight and explained to her that this will not provide lasting pain relief and she should use the Percocet instead and reserve the morphine for breakthrough pain. I also discussed this with the nurse. I have ordered a MATTHEW to be done on Monday assuming Dr. Kimbrough is available for this. I noted she had a positive mycoplasma IgG antibody earlier in the admission she was approp riately treated with a course of azithromycin. Her blood cultures have not grown mycoplasma and this may be simply antibodies from an exposure in the past other than an active infection. D-dimer is higher. We will check PVL BLE to rule out DVT. There is no PE on a recent CTPA. 02/01/2020 Most recent 1/2 blood cultures still growing coag negative staph highly likely a contaminant. If this is the case, patient is to consecutive negative blood culture results from different days. We could say blood is likely cleared of infection as of 01/26. We continue to plan for MATTHEW hopefully on Monday. Order has been placed but the timing of the procedure will be entirely up to Dr. Kimbrough's availability. Patient likely has obesity hypoventilation syndrome and we should not push her oxygen towards 100%. She will likely breathe and feel better overall at a lower O2 saturation around 92% or higher. She is at risk for CO2 retention we do not keep this in mind. 02/02/2020 Patient still having significant left upper quadrant pain likely due to developing splenic abscess. We will repeat a CT abdomen/pelvis with contrast in the next 48 hours to see if this has gone from being a phlegmon to a drainable abscess. Per my discussion with [facility] interventional radiology, they did not recommend attempting to drain any septic emboli unless it had clear evidence of being a liquid abscess. I have added gabapentin to help with the pain and we will continue Percocet and then also morphine for breakthrough pain. Other than that, patient has no new complaints. Will hopefully have MATTHEW done again in the next 48 hours. This is pending Dr. Kimbrough availability. 02/03/2020 Unable to get MATTHEW today due to anesthesia refusing to attempt this again here they stated patient's airway is extremely tenuous and they were barely able to safely intubate the patient previously. Dr. Kimbrough was also concerned after speaking with them that he would likely not have success on the second attempt either. He recommended treating the patient with 6 weeks of IV antibiotics for presumed infective endocarditis. It would be helpful if the patient lost a significant amount of weight over the next 6 weeks as this may assist with the difficult anatomy of her neck. Patient could potentially be discharged home if case management is able to arrange outpatient infusions. She will need a PICC line placed and to have her central line removed. I will place an order for this to be done tomorrow. Patient will need a physician to follow-up her care after she leaves if she continues on IV antibiotics. She will need periodic labs over the next 6 weeks and someone to monitor these. 02/04/20 Patient was seen and examined at bedside. She is still complaining of left sided flank pain which is still likely from septic emboli to her left kidney. I have increased her percocet to q3 hrs and increased her morphine. She got a PICC line today for planned 6 weeks of abx. She is still currently requiring O2 support. Discharge planning still trying to work on setting up home infusion for dapto as well as home O2. Will repeat CT abdomen/pelvis to assess septic emboli to left kidney. 02/05/20 Patient was seen and examined at bedside. Still on her CPAP machine most of the time. Repeat blood culture drawn yesterday still growing Enterococcus. I have touched base with infectious disease regarding this and I was able to speak to Dr. Navarrete. She recommends to talk to the patient about her penicillin allergy possibly switch her over to ceftriaxone and ampicillin regimen since this is much better for Enterococcus. He also recommended to consult CT surgery for her splenic emboli and high suspicion for endocarditis. With her BMI I doubt that he will she will qualify for any surgery but will try to reach out to a CT surgeon tomorrow. We will also ask her about her penicillin allergy. Repeat CT abdomen and pelvis showed grossly stable appearance of the ill-defined area of hypoattenuation along the inferior left kidney. Stable linear area of hypoattenuation within the spleen. Morbid obesity with skin thickening along the pannus suggestive of panniculitis. Moderate left-sided pleural effusion I have changed her pain medications to morphine IR 10 mg every 4 since she claims that she responds more to morphine rather than Percocet. I have stopped her Percocet and her IV morphine. Reason For Visit: HYPOXIA,FEVER Physical Exam Vital Signs: Temp Pulse Resp BP Pulse Ox 99.9 F 110 H 22 H 128/40 H 100 02/05/20 19:52 02/05/20 19:39 02/05/20 19:39 02/05/20 19:39 02/05/20 19:39 Intake & Output 02/04/20 02/05/20 02/06/20 06:59 06:59 06:59 Intake Total 740 1580 1345 Balance 740 1580 1345 Weight 180.2 kg 180.2 kg 180 kg General appearance: PRESENT: no acute distress, morbidly obese Head exam: PRESENT: atraumatic, normocephalic Eye exam: PRESENT: EOMI, PERRLA Mouth exam: PRESENT: moist Neck exam: PRESENT: full ROM Respiratory exam: PRESENT: decreased breath sounds, symmetrical, unlabored Cardiovascular exam: PRESENT: RRR, +S1, +S2 GI/Abdominal exam: PRESENT: normal bowel sounds, soft, tenderness - Left upper quadrant Extremities exam: PRESENT: full ROM Musculoskeletal exam: PRESENT: full ROM Neurological exam: PRESENT: alert, oriented to person, oriented to place, oriented to time, oriented to situation Psychiatric exam: PRESENT: normal mood Skin exam: PRESENT: normal color Results Laboratory Results: 02/05/20 05:51 02/05/20 05:51 02/05/20 02/05/20 05:51 05:51 WBC 11.3 H RBC 3.04 L Hgb 7.8 L Hct 25.6 L MCV 84 MCH 25.7 L MCHC 30.4 L RDW 17.8 H Plt Count 409 Seg Neutrophils % 71.5 Sodium 136.5 L Potassium 4.7 Chloride 100 Carbon Dioxide 29 Anion Gap 8 BUN 12 Creatinine 0.87 Est GFR ( Amer) > 60 Glucose 181 H Calcium 9.3 Total Bilirubin 0.5 AST 24 Alkaline Phosphatase 206 H Total Protein 7.0 Albumin 3.3 L 02/04/20 09:30 Blood Blood Culture (PCR) - Final Staphylococcus Species 02/04/20 09:23 Blood Blood Culture (PCR) - Final Enterococcus Species Staphylococcus Species 01/25/20 01/26/20 16:00 05:33 Creatine Kinase < 20 L 30 Impressions: Chest/Abdomen CTA 01/22/20 00:00 IMPRESSION: 1. No evidence of pulmonary embolus. 2. Scattered mosaic attenuation throughout the lungs possibly secondary to s mall airway disease or hypoventilatory change. 3. Trace left pleural effusion. Chest X-Ray 01/25/20 00:00 IMPRESSION: New right central venous catheter with tip at the right atrium. No pneumothorax. Mild pulmonary edema with increasing small left pleural effusion. Renal Ultrasound 01/28/20 00:00 IMPRESSION: Avascular approximately 3 cm mass off the inferior pole the left kidney. This most likely represents infectious or inflammatory process. Venous Doppler Study 01/31/20 15:23 IMPRESSION: No DVT in the bilateral lower extremities. PICC Line Insertion 02/04/20 00:00 IMPRESSION: SUCCESSFUL PLACEMENT OF A 5 FR DUAL LUMEN 44 CM PICC IN THE LEFT BASILIC VEIN. Abdomen/Pelvis CT 02/05/20 00:00 IMPRESSION: 1. Grossly stable appearance of the ill-defined area of hypoattenuation along the inferior left kidney. Again, findings may represent pyelonephritis, solid mass or renal infarct with the former favored. There are additional ill-defined areas of hypoattenuation involving the right renal cortex suggestive of pyelonephritis. Recommend correlation with urinalysis. 2. Stable linear area of hypoattenuation within the spleen, possibly infarct or post infectious/traumatic sequelae. 3. Morbid obesity with skin thickening along the pannus suggestive of panniculitis. 4. At least moderate left-sided pleural effusion, partially evaluated. Associated lower lobe atelectasis. Assessment and Plan - Diagnosis (1) Bacteremia due to Enterococcus Is this a current diagnosis for this admission?: Yes Plan: - CT abdomen/pelvis with contrast showed likely septic emboli to left kidney and spleen; discussed with urology and IR at [facility], will hold off on draining these unless they turn into an abscess rather than what appears to be phlegmon - cultures: Blood cultures 01/20+ for Enterococcus, 01/21+ for Enterococcus, 01/23+ for Enterococcus, 01/26 blood cultures growing coag negative staph contaminant in 1/2 bottles otherwise clear, 01/28 growing staph epidermididis - 02/03 blood culture again grew enterococcus and staph epidermidis - TTE 01/24/20 cannot exclude vegetation. LV systolic function is normal, EF 55 to 60%, mild MR, moderate AR. - unable to confirm endocarditis with MATTHEW due to body habitus and she is high risk with sedation -I touched base with infectious disease again today and was able to speak to Dr. Navarrete regarding her latest blood culture result and according to her this still likely means that she has endocarditis as a cause of her positive blood culture. She also stated that ceftriaxone and ampicillin has better coverage for Enterococcus and asked me to readdress her allergy to amoxicillin and penicillin and if it is not an IgE mediated reaction to consider challenging her with amoxicillin and possibly switch her to ceftriaxone ampicillin regimen. If this is the case I am not sure how this is can affect her discharge and home infusion set up as ampicillin is given every 4 hours. She also asked me to consider having CT surgery review her case. With her high BMI I doubt if she will be a candidate for any type of procedure but will try and reach out to a CT surgeon tomorrow. - central line removed (2) Septic embolism Is this a current diagnosis for this admission?: Yes Plan: -Repeat CT abdomen/pelvis with IV and oral contrast showed suspected left renal mass Renal ultrasound showed likely left renal abscess rather than solid mass Had urology at outside hospital to review imaging to decide if suspected left renal abscess can be drained by IR or if the patient needs to be transferred for surgical intervention; they recommended continued IV antibiotics and repeat imaging in the next few weeks if patient worsens clinically as patient may need abscesses drained. -CT abdomen showed stable appearance of previously noted splenic and renal infarcts/abscess Switch her to morphine IR stop Percocet and IV morphine. (3) Acute on chronic respiratory failure with hypoxemia Is this a current diagnosis for this admission?: Yes Plan: - still requiring O2 support, was not previously on o2 at home - COVID negative -The abdomen showed moderate-sized pleural effusion -I consulted interventional radiology to possibly drain her pleural effusion as this might help with her breathing status. - will ask the nurse to wean her off - continue BIPAP PRn and at night (4) FROYLAN on CPAP Is this a current diagnosis for this admission?: Yes Plan: nocturnal cpap (5) Panniculitis Is this a current diagnosis for this admission?: Yes Plan: - currently on Dapto for Enterococcus bacteremia. (6) Diabetes mellitus type 2 in obese Is this a current diagnosis for this admission?: Yes Plan: - continue SSI, hypoglycemia protocol and accucheck (7) Sepsis Qualifiers: Sepsis type: sepsis due to unspecified organism Sepsis acute organ dysfunction status: without acute organ dysfunction Qualified Code(s): A41.9 - Sepsis, unspecified organism Is this a current diagnosis for this admission?: Yes Plan: RESOLVED - Leukocytosis, febrile, hypoxic, tachycardic. - source likely endocarditis - currently on Daptomycin. (8) Morbid obesity with BMI of 70 and over, adult Is this a current diagnosis for this admission?: Yes Plan: - BMI over 70 - advised diet and lifestyle modification (9) Essential hypertension Is this a current diagnosis for this admission?: Yes (10) Menometrorrhagia Is this a current diagnosis for this admission?: Yes - Time Time Spent with patient: 25-34 minutes Medications reviewed and adjusted accordingly: Yes Anticipated Discharge Disposition: Home with Home Health Anticipated Discharge Timeframe: TBD
--- NOTE | 2020-02-05 20:56 | Progress Note ---
Provider Note Provider Note: [facility] ID teleconsultation. ID follow-up requested. Patient not examined. Chart reviewed. This is not equivalent to an inpatient ID consultation. In brief, this is a 34-year-old female with morbid morbid obesity, DM who was admitted with abdominal pain and found to have high-grade Enterococcus faecalis bacteremia which was persistent at 72 hours and was looking like it was clearing on 01/26, however, I was notified by the hospitalist today that her repeat blood cultures drawn 02/03 are again demonstrating this organism. She had staph epidermidis in 1 set on 01/26. I am waiting to see the blood culture report from 02/03. During her initial persistent bacteremia she was only on linezolid. ID was consulted and she was changed to daptomycin on 01/24. She had a TTE which demonstrated increased aortic valve velocity and moderate AR, but could not rule out a vegetation. Due to her morbid obesity a MATTHEW was technically difficult and was unable to be performed. In regards to her Enterococcus bacteremia she had a CT scan initially without contrast and then with contrast that essentially just demonstrated some stranding concerning for panniculitis. She, upon my review of the scans also has splenic infarcts and likely left kidney infarct. Assessment/recommendations: 1. High-grade persistent Enterococcus faecalis bacteremia (amp and pcn S)- source not clear but suspect GI translocation versus skin /panniculitis with endovascular seeding. I would ensure this patient absolutely does not have a history of injection drug use as this clinical picture is a bit unusual for someone her age. 2. Splenic and renal infarcts essentially giving her the clinical diagnosis of endocarditis in this setting. I suspect she has aortic valve endocarditis based on her TTE. Given the recurrent nature of her bacteremia that was reported to me today from cultures drawn 02/03 as well as her moderate AR, CT surgery should be consulted. The ideal treatment for enterococcal endocarditis is either ampicillin + aminoglycoside or double beta-lactam therapy with ampicillin and ceftriaxone. I am concerned about developing daptomycin resistance on daptomycin monotherapy with a high inoculum infection. Vancomycin is challenging given her weight. Please ascertain the nature of her penicillin allergy and if not anaphylaxis consider an amoxicillin 250 mg p.o. challenge and if tolerates would recommend ampicillin 2 g IV every 4 hours plus ceftriaxone 2 g IV every 12 hours. Repeat blood cultures after 48 hours of this therapy and reach out to CT surgery. Need 6 weeks of antibiotics either from blood culture clearance or date of surgery if valve tissue cultures are positive. 3. Coagulase-negative staph isolated from blood cultures-suspect contamination in a patient with morbid obesity and difficult phlebotomy.
[2020-02-05] MEDS: INSULIN GLARGINE,HUM.REC.ANLOG 1,000 UNIT/10 ML VIAL SUBCUT SCH (21:43)
[2020-02-05] MEDS: PRAZOSIN HCL 1 MG PO SCH (21:45)
[2020-02-05] MEDS: ALBUTEROL SULFATE 0.083% NEB 2.5 MG/3 ML AMPUL NEB PRN (21:52)
[2020-02-06] MEDS: MORPHINE SULFATE IR 15 MG TABLET PO PRN (02:39)
[2020-02-06] MEDS: MAG HYDROX/AL HYDROX/SIMETH SUSP 30 ML UDCUP PO PRN (03:20)
[2020-02-06] MEDS: HYDROXYZINE PAMOATE 50 MG CAPSULE PO SCH ×3 (06:05→21:12)
[2020-02-06] MEDS: PANTOPRAZOLE SODIUM 40 MG TABLET.DR PO SCH (06:05)
[2020-02-06] MEDS: ALBUTEROL SULFATE HFA (90 MCG/PUFF) 8 GM MDI IH SCH ×4 (06:06→23:29)
[2020-02-06] MEDS: INSULIN LISPRO 100 UNIT/ML 3 ML VIAL SUBCUT SCH ×4 (07:45→21:13)
[2020-02-06 07:48] LABS: INTERNATIONAL RATION (INR) 1.19; PROTHROMBIN TIME 15.3 SEC (11.4-15.4)
[2020-02-06 07:57] LABS: D-DIMER 3.96 ug/mL (0.00-0.50)
[2020-02-06] MEDS ORDERED: SERTRALINE HCL 50 MG TABLET PO SCH (10:00)
[2020-02-06] MEDS ORDERED: AMOXICILLIN TRYHYD 250 MG/5 ML SUSP 80 ML (ER DISP) PO ONE (11:00)
[2020-02-06] MEDS: GABAPENTIN 300 MG CAPSULE PO SCH ×2 (11:52→21:11)
[2020-02-06] MEDS: ASCORBIC ACID 500 MG TABLET PO SCH ×2 (11:52→17:31)
[2020-02-06] MEDS: CHOLECALCIFEROL (D3) 1,000 UNIT (25 MCG) TABLET PO SCH (11:52)
[2020-02-06] MEDS: FERROUS SULFATE 325 MG TABLET PO SCH (11:52)
[2020-02-06] MEDS: SERTRALINE HCL 50 MG TABLET PO SCH (11:52)
[2020-02-06] MEDS: DOCUSATE SODIUM 100 MG CAPSULE PO SCH ×2 (11:53→17:31)
[2020-02-06] MEDS: ZINC SULFATE 220 MG CAPSULE PO SCH (11:54)
[2020-02-06] MEDS: HEPARIN SOD (PORCINE) 5,000 UNIT/ML 1 ML VIAL SUBCUT SCH ×2 (11:55→21:31)
[2020-02-06] MEDS: FLUTICASONE/VILANTEROL 100-25 MCG/DOSE IH SCH (11:55)
[2020-02-06] MEDS: NORMAL SALINE 10 ML SDV (SCHEDULED) IV SCH ×2 (11:56→21:12)
[2020-02-06] MEDS: ALBUTEROL SULFATE 0.083% NEB 2.5 MG/3 ML AMPUL NEB PRN (14:08)
[2020-02-06] MEDS ORDERED: AMOXICILLIN TRIHYDRATE 500 MG CAPSULE PO ONE (15:54)
--- NOTE | 2020-02-06 16:08 | RADIOLOGY REPORT (SQ) ---
EXAM DESCRIPTION: CHEST SINGLE VIEW IMAGES COMPLETED DATE/TIME: 02/06/2020 3:51 pm REASON FOR STUDY: POST THORA COMPARISON: 02/04/2020 NUMBER OF VIEWS: One view. TECHNIQUE: Single frontal radiographic image of the chest acquired. LIMITATIONS: None. FINDINGS: LUNGS AND PLEURA: Small left pleural effusion. No pneumothorax. MEDIASTINUM AND HEART: Stable heart size and mediastinal structures. SUPPORT DEVICES: Appropriate location without change. BONY STRUCTURES: No acute findings. HARDWARE: None. OTHER: No other significant finding. IMPRESSION: No pneumothorax status post left thoracentesis. Reading location - IP/workstation name: [email or web address]
--- NOTE | 2020-02-06 16:09 | RADIOLOGY REPORT (SQ) ---
EXAM DESCRIPTION: U/S THORACENTESIS WITH IMAGING IMAGES COMPLETED DATE/TIME: 02/06/2020 3:58 pm REASON FOR STUDY: pleural effusion COMPARISON: CT abdomen and pelvis 02/05/2020 RADIATION DOSE: None LIMITATIONS: None. PROCEDURE: Procedure, risks, benefit, and alternative explained to patient who then gave written con sent. The posterior left chest wall was marked using ultrasound guidance. A time-out was called for correct marking verification. Chest prepped and draped using sterile technique. Local anesthesia ac hieved using 10 ml of 1% lidocaine injection. A 6fr Safe-T- Centesis set was introduced into the le ft pleural space. Fluid was aspirated. The catheter was removed and the entry site was covered with sterile bandage. No immediate complications noted. Images acquired during the procedure were stored on PACS. FINDINGS: ENTRY SITE: posterior left chest. FLUID VOLUME: 850 mL FLUID ANALYSIS: Cloudy straw-colored fluid OTHER: Fluid sent to the lab for testing. IMPRESSION: SUCCESSFUL THORACENTESIS USING ULTRASOUND GUIDANCE. COMMENT: Patient medication list reviewed: Yes- Quality ID# [id number]:Eligible professional attests to doc umenting in the medical record they obtained, updated, or reviewed the patient's current medications. TECHNICAL DOCUMENTATION: JOB ID: [id number] 2010 [employer] All Rights Reserved Reading location - IP/workstation name: [email or web address] [id number]
[2020-02-06] MEDS ORDERED: MORPHINE SULFATE IR 15 MG TABLET PO PRN (16:48)
[2020-02-06] MEDS ORDERED: MORPHINE SULFATE 10 MG/5 ML ORAL SOLUTION UDCUP PO PRN (16:59)
--- NOTE | 2020-02-06 17:09 | PDOC PROGRESS REPORT ---
Subjective Date:: 02/06/20 Subjective:: SARAHI ST is a 34 year old female with history of morbid obesity, FROYLAN, ast hma, diabetes mellitus, hypertension, anxiety and depression, who presents to the hospital with complaints of diffuse abdominal pain. The pain started 1 day ago. She describes it as aching pain which lasts several minutes. States it occurs every 15 minutes. Feels like a cramping sensation. Denies prior episodes. No notable aggravating or alleviating factors. Denies any relationship with food consumption. Admits to nausea but no vomiting. Denies any vaginal discharge. Denies any urinary symptoms.. Last sexual activity was in 2015. Preceding onset of this symptoms, she states she ate out on Monday. Subsequently became constipated and took a laxative. After that she had a few episodes of diarrhea on Monday and Monday. Pain started on Monday. In the ER, patient received work-up with CT abdomen pelvis without contrast. This incidentally picked up groundglass opacities in patient's lower lungs. Patient also noted to have hypoxia at 90% on room air. She has chronic issues with her breathing and often gets short of breath but is also quite overweight. She has not noted any recent worsening of her breathing. Noted to be febrile in the ER as well. Interval history: 01/23/2020: Patient was seen and examined. She still with high white count. No fever. Complains of abdominal wall pain. 01/24/2020: Patient was seen and examined. White count is improving. No fever. Complains of abdominal wall pain. 01/25/2020: Patient was seen and examined. White count is improving. Afebrile. Improving overall. Repeat cultures still positive for Enterococcus. 01/26/2020: Patient was seen and examined. Had low-grade fever of 100.6 last night. Stable on 4 L of nasal cannula oxygen." 01/27/2020 Still unclear where the source of the patient's infection might be. Per ID, they suspect intra-abdominal source such as the bowel or tract. We will repeat a CT abdomen and this time and on the pelvis as well. This will be done with IV and oral contrast to look for any potential abscesses could have formed along her bowel. She still having vaginal bleeding and states that sometimes she bleeds for an entire month. She does not follow with a crab catcher regularly as she does not have insurance. Patient states she feels okay today. MATTHEW is being arranged reportedly. Daptomycin continues. Lower WBC and lower hemoglobin down to 8. Latest blood culture is also positive for Enterococcus, same organism as the previous cultures per micro lab. 01/28/2020 CT abdomen/pelvis with contrast showed possible left renal mass and I have ordered a renal ultrasound to get a closer look at this. Renal ultrasound showed this is likely an abscess rather than a solid tumor. We will need urology opinion and I will give them a call to see if they would like the patient transferred for intervention or if IR would be able to drain this here. Patient remains afebrile. Blood cultures 1/2 growing MRSA. Patient believes the suspected abscess in her left kidney may be the source of her left upper quadrant and left flank pain. 01/29/2020 I called [facility] and spoke with the urologist on staff there and then he called their interventional radiologist had a lengthy discussion about the patient's imaging studies and how this should be addressed. They believe the farzad salcido's renal lesion is likely a phlegmon which may turn into an abscess in the near future. They recommended against attempting to drain this lesion until it becomes an actual liquid abscess. They also noted a lesion in the patient's spleen consistent with septic emboli and similar to the kidney lesion. I believe the patient has showered her organ systems with septic emboli likely from a central source, suspected to be infected endocarditis. MATTHEW was not able to be done as mentioned previously and this will need to be repeated in the near future. We will repeat blood cultures today and if these remain negative we may explore transfer to a CT surgery facility once we can confirm a valvular vegetation on MATTHEW. Patient has no new complaints today. I examined her buttock regions and did not see any open wounds that could be a source for MRSA infection. The patient had mentioned previously having some irritation and possibly an open wound in that area. 01/30/2020 Most recent set of results of blood cultures on 01/26 have now resulted as 1/2 bottles contaminated with coag negative staph, otherwise blood cultures are negative. Patient is continued on daptomycin. Blood cultures drawn yesterday are still pending. Patient states she feels slightly better. Dr. Kimbrough is planning to repeat MATTHEW attempt next week. This is certainly indicated given that she probably has a central source of bloodstream infection showering multiple organs, most likely infected endocarditis. Possible she seeded her heart valves from a skin infection became bacteremia. 01/31/2020 Blood cultures are growing staph species in 1/2 bottles, suspect this may be a contaminant. Patient is having a bit more pain in her left flank and abdomen likely due to the septic emboli in her kidney. She has been using morphine overnight and explained to her that this will not provide lasting pain relief and she should use the Percocet instead and reserve the morphine for breakthrough pain. I also discussed this with the nurse. I have ordered a MATTHEW to be done on Monday assuming Dr. Kimbrough is available for this. I noted she had a positive mycoplasma IgG antibody earlier in the admission she was approp riately treated with a course of azithromycin. Her blood cultures have not grown mycoplasma and this may be simply antibodies from an exposure in the past other than an active infection. D-dimer is higher. We will check PVL BLE to rule out DVT. There is no PE on a recent CTPA. 02/01/2020 Most recent 1/2 blood cultures still growing coag negative staph highly likely a contaminant. If this is the case, patient is to consecutive negative blood culture results from different days. We could say blood is likely cleared of infection as of 01/26. We continue to plan for MATTHEW hopefully on Monday. Order has been placed but the timing of the procedure will be entirely up to Dr. Kimbrough's availability. Patient likely has obesity hypoventilation syndrome and we should not push her oxygen towards 100%. She will likely breathe and feel better overall at a lower O2 saturation around 92% or higher. She is at risk for CO2 retention we do not keep this in mind. 02/02/2020 Patient still having significant left upper quadrant pain likely due to developing splenic abscess. We will repeat a CT abdomen/pelvis with contrast in the next 48 hours to see if this has gone from being a phlegmon to a drainable abscess. Per my discussion with [facility] interventional radiology, they did not recommend attempting to drain any septic emboli unless it had clear evidence of being a liquid abscess. I have added gabapentin to help with the pain and we will continue Percocet and then also morphine for breakthrough pain. Other than that, patient has no new complaints. Will hopefully have MATTHEW done again in the next 48 hours. This is pending Dr. Kimbrough availability. 02/03/2020 Unable to get MATTHEW today due to anesthesia refusing to attempt this again here they stated patient's airway is extremely tenuous and they were barely able to safely intubate the patient previously. Dr. Kimbrough was also concerned after speaking with them that he would likely not have success on the second attempt either. He recommended treating the patient with 6 weeks of IV antibiotics for presumed infective endocarditis. It would be helpful if the patient lost a significant amount of weight over the next 6 weeks as this may assist with the difficult anatomy of her neck. Patient could potentially be discharged home if case management is able to arrange outpatient infusions. She will need a PICC line placed and to have her central line removed. I will place an order for this to be done tomorrow. Patient will need a physician to follow-up her care after she leaves if she continues on IV antibiotics. She will need periodic labs over the next 6 weeks and someone to monitor these. 02/04/20 Patient was seen and examined at bedside. She is still complaining of left sided flank pain which is still likely from septic emboli to her left kidney. I have increased her percocet to q3 hrs and increased her morphine. She got a PICC line today for planned 6 weeks of abx. She is still currently requiring O2 support. Discharge planning still trying to work on setting up home infusion for dapto as well as home O2. Will repeat CT abdomen/pelvis to assess septic emboli to left kidney. 02/05/20 Patient was seen and examined at bedside. Still on her CPAP machine most of the time. Repeat blood culture drawn yesterday still growing Enterococcus. I have touched base with infectious disease regarding this and I was able to speak to Dr. Navarrete. She recommends to talk to the patient about her penicillin allergy possibly switch her over to ceftriaxone and ampicillin regimen since this is much better for Enterococcus. He also recommended to consult CT surgery for her splenic emboli and high suspicion for endocarditis. With her BMI I doubt that he will she will qualify for any surgery but will try to reach out to a CT surgeon tomorrow. We will also ask her about her penicillin allergy. Repeat CT abdomen and pelvis showed grossly stable appearance of the ill-defined area of hypoattenuation along the inferior left kidney. Stable linear area of hypoattenuation within the spleen. Morbid obesity with skin thickening along the pannus suggestive of panniculitis. Moderate left-sided pleural effusion I have changed her pain medications to morphine IR 10 mg every 4 since she claims that she responds more to morphine rather than Percocet. I have stopped her Percocet and her IV morphine. 02/06/20 Patient was seen and examined at bedside. She reports that her pain seems to be much better with the morphine IR however she feels that she is more nauseous with it as well. I have decreased her morphine to 5 mg every 6. I also discussed with her the recent infectious disease recommendation regarding amoxicillin challenge. She stated that she had a reaction to amoxicillin when she was 14 years old when she got it for dental procedure when she developed tongue swelling however she did not report any shortness of breath, no rashes, did not need to go to the emergency room because of severe allergic reaction. Since this remote penicillin allergy happened more than 15 years ago we we have decided to go ahead with challenging her with amoxicillin 50 mg and then observe her for 20 minutes and then full dose 500 mg/h of amoxicillin and observe her for another hour after that. She did not experience any symptoms with the 50 mg of amoxicillin. If she passed a challenge I would likely switch her antibiotics to ceftriaxone, ampicillin to treat her persistent enterococcal bacteremia. Reason For Visit: HYPOXIA,FEVER Physical Exam Vital Signs: Temp Pulse Resp BP Pulse Ox 98.9 F 110 H 20 128/49 H 98 02/06/20 16:18 02/06/20 16:18 02/06/20 16:18 02/06/20 16:18 02/06/20 16:18 Intake & Output 02/05/20 02/06/20 02/07/20 06:59 06:59 06:59 Intake Total 1580 1845 Balance 1580 1845 Weight 180.2 kg 180 kg General appearance: PRESENT: cooperative, mild distress, morbidly obese Head exam: PRESENT: atraumatic, normocephalic Eye exam: PRESENT: EOMI, PERRLA Mouth exam: PRESENT: moist Neck exam: PRESENT: full ROM Respiratory exam: PRESENT: decreased breath sounds, symmetrical. ABSENT: rales, wheezes Cardiovascular exam: PRESENT: RRR, +S1, +S2 Pulses: PRESENT: +2 pedal pulses bilateral GI/Abdominal exam: PRESENT: normal bowel sounds, soft. ABSENT: rebound, tenderness Extremities exam: PRESENT: full ROM Musculoskeletal exam: PRESENT: full ROM Neurological exam: PRESENT: alert, awake, oriented to person, oriented to place, oriented to time, oriented to situation Psychiatric exam: PRESENT: normal mood Skin exam: PRESENT: normal color Results Laboratory Results: 02/05/20 05:51 02/05/20 05:51 02/04/20 09:23 Blood Blood Culture (PCR) - Final Enterococcus Species Staphylococcus Species 02/04/20 09:30 Blood Blood Culture (PCR) - Final Staphylococcus Species 01/25/20 01/26/20 16:00 05:33 Creatine Kinase < 20 L 30 Impressions: Chest/Abdomen CTA 01/22/20 00:00 IMPRESSION: 1. No evidence of pulmonary embolus. 2. Scattered mosaic attenuation throughout the lungs possibly secondary to small airway disease or hypoventilatory change. 3. Trace left pleural effusion. Renal Ultrasound 01/28/20 00:00 IMPRESSION: Avascular approximately 3 cm mass off the inferior pole the left kidney. This most likely represents infectious or inflammatory process. Venous Doppler Study 01/31/20 15:23 IMPRESSION: No DVT in the bilateral lower extremities. PICC Line Insertion 02/04/20 00:00 IMPRESSION: SUCCESSFUL PLACEMENT OF A 5 FR DUAL LUMEN 44 CM PICC IN THE LEFT BASILIC VEIN. Abdomen/Pelvis CT 02/05/20 00:00 IMPRESSION: 1. Grossly stable appearance of the ill-defined area of hypoattenuation along the inferior left kidney. Again, findings may represent pyelonephritis, solid mass or renal infarct with the former favored. There are additional ill-defined areas of hypoattenuation involving the right renal cortex suggestive of pyelonephritis. Recommend correlation with urinalysis. 2. Stable linear area of hypoattenuation within the spleen, possibly infarct or post infectious/traumatic sequelae. 3. Morbid obesity with skin thickening along the pannus suggestive of panniculitis. 4. At least moderate left-sided pleural effusion, partially evaluated. Associated lower lobe atelectasis. Thoracentesis Ultrasound 02/06/20 00:00 IMPRESSION: SUCCESSFUL THORACENTESIS USING ULTRASOUND GUIDANCE. Chest X-Ray 02/06/20 15:39 IMPRESSION: No pneumothorax status post left thoracentesis. Assessment and Plan - Diagnosis (1) Bacteremia due to Enterococcus Is this a current diagnosis for this admission?: Yes Plan: - CT abdomen/pelvis with contrast showed likely septic emboli to left kidney and spleen; discussed with urology and IR at [facility], will hold off on draining these unless they turn into an abscess rather than what appears to be phlegmon - cultures: Blood cultures 01/20+ for Enterococcus, 01/21+ for Enterococcus, + for Enterococcus, 01/26 blood cultures growing coag negative staph contaminant in 1/2 bottles otherwise clear, 01/28 growing staph epidermididis - 02/03 blood culture again grew enterococcus and staph epidermidis - TTE 01/24/20 cannot exclude vegetation. LV systolic function is normal, EF 55 to 60%, mild MR, moderate AR. -Patient was challenged with 50 mg oral amoxicillin was observed for 20 minutes for any reaction she did not have any. And then she received full dose 500 mg of amoxicillin for ROM and was observed for the next few hours and she remained stable with no shortness of breath no tongue swelling no hypotension. Antibiotics switched to ceftriaxone and ampicillin per ID recommendations. -She also asked me to consider having CT surgery review her case. With her high BMI I doubt if she will be a candidate for any type of procedure but will try and reach out to a CT surgeon tomorrow. - central line removed (2) Septic embolism Is this a current diagnosis for this admission?: Yes Plan: -Repeat CT abdomen/pelvis with IV and oral contrast showed suspected left renal mass Renal ultrasound showed likely left renal abscess rather than solid mass Had urology at outside hospital to review imaging to decide if suspected left renal abscess can be drained by IR or if the patient needs to be transferred for surgical intervention; they recommended continued IV antibiotics and repeat imaging in the next few weeks if patient worsens clinically as patient may need abscesses drained. -CT abdomen showed stable appearance of previously noted splenic and renal infarcts/abscess -Continue current antibiotics Switch her to morphine IR stop Percocet and IV morphine. (3) Acute on chronic respiratory failure with hypoxemia Is this a current diagnosis for this admission?: Yes Plan: - still requiring O2 support, was not previously on o2 at home - COVID negative -CT showed moderate-sized pleural effusion -Status post thoracentesis was able to removed approximately 800 mL of fluid sent for analysis. I am hoping this will improve her respiratory status and she can come off the nasal cannula. - will ask the nurse to wean her off - continue BIPAP PRn and at night (4) FROYLAN on CPAP Is this a current diagnosis for this admission?: Yes Plan: nocturnal cpap (5) Panniculitis Is this a current diagnosis for this admission?: Yes Plan: -Antibiotic switch from Dapto to ceftriaxone/ampicillin. (6) Diabetes mellitus type 2 in obese Is this a current diagnosis for this admission?: Yes Plan: - continue SSI, hypoglycemia protocol and accucheck (7) Sepsis Qualifiers: Sepsis type: sepsis due to unspecified organism Sepsis acute organ dysfunction status: without acute organ dysfunction Qualified Code(s): A41.9 - Sepsis, unspecified organism Is this a current diagnosis for this admission?: Yes Plan: RESOLVED - Leukocytosis, febrile, hypoxic, tachycardic. - source likely endocarditis -Dapto switched to ceftriaxone/ampicillin (8) Morbid obesity with BMI of 70 and over, adult Is this a current diagnosis for this admission?: Yes Plan: - BMI over 70 - advised diet and lifestyle modification (9) Essential hypertension Is this a current diagnosis for this admission?: Yes (10) Menometrorrhagia Is this a current diagnosis for this admission?: Yes - Plan Summary Summary: Unfortunately her repeat blood culture done on February 04, 2020 showed persistent enterococcal bacteremia. Upon further discussion with infectious disease they recommend that antibiotics be switched to ceftriaxone ampicillin. Patient has a reported penicillin allergy so I performed an amoxicillin challenge which she passed and was able to switch her antibiotics to ceftriaxone and ampicillin. Unfortunately ampicillin is administered every 4 hours hence she would have to stay in the hospital for the entire duration of her treatment which is likely to be 6 weeks. I spoke to the patient and her mother and they a re aware. - Time Time Spent with patient: 25-34 minutes Medications reviewed and adjusted accordingly: Yes Anticipated Discharge Disposition: Home, Self Care Anticipated Discharge Timeframe: TBD
[2020-02-06] MEDS: MORPHINE SULFATE 10 MG/5 ML ORAL SOLUTION UDCUP PO PRN (17:32)
--- NOTE | 2020-02-06 18:25 | RADIOLOGY REPORT (SQ) ---
EXAM DESCRIPTION: CHEST SINGLE VIEW IMAGES COMPLETED DATE/TIME: 02/06/2020 4:54 pm REASON FOR STUDY: POST THORA - 2 HOUR COMPARISON: Chest radiograph same date at 1543 hours. EXAM PARAMETERS: NUMBER OF VIEWS: One view. TECHNIQUE: Single frontal radiographic view of the chest acquired. RADIATION DOSE: NA LIMITATIONS: None. FINDINGS: LUNGS AND PLEURA: Decreased now small residual left pleural effusion. Patchy bibasilar at electasis. No pneumothorax. MEDIASTINUM AND HILAR STRUCTURES: No masses. Contour normal. HEART AND VASCULAR STRUCTURES: Heart normal in size. Normal vasculature. BONES: No acute findings. HARDWARE: Left PICC with tip in the SVC unchanged. OTHER: No other significant finding. IMPRESSION: Decreased left effusion. No pneumothorax. TECHNICAL DOCUMENTATION: JOB ID: [id number] [employer]- All Rights Reserved Reading location - IP/workstation name: [email or web address]
[2020-02-06] MEDS ORDERED: AMPICILLIN SOD INJ 500 MG VIAL IV SCH (20:00)
[2020-02-06] MEDS ORDERED: CEFTRIAXONE 2 GM/D5W RTU 2 GM/50 ML RTUPB IV SCH (20:00)
[2020-02-06] MEDS: CEFTRIAXONE 2 GM/D5W RTU 2 GM/50 ML RTUPB IV SCH (21:10)
[2020-02-06] MEDS: INSULIN GLARGINE,HUM.REC.ANLOG 1,000 UNIT/10 ML VIAL SUBCUT SCH (21:13)
[2020-02-06] MEDS: PRAZOSIN HCL 1 MG PO SCH (21:14)
[2020-02-06] MEDS: AMPICILLIN SODIUM 2 GM in NORMAL SALINE 100 ML IV SCH (22:31)
[2020-02-06] MEDS ORDERED: MORPHINE SULFATE 10 MG/ML INJ IV ONE (23:59)
[2020-02-07] MEDS: AMPICILLIN SODIUM 2 GM in NORMAL SALINE 100 ML IV SCH ×6 (01:01→22:12)
[2020-02-07] MEDS: ALBUTEROL SULFATE HFA (90 MCG/PUFF) 8 GM MDI IH SCH ×3 (06:12→17:12)
[2020-02-07] MEDS: HYDROXYZINE PAMOATE 50 MG CAPSULE PO SCH ×3 (06:12→22:11)
[2020-02-07] MEDS: PANTOPRAZOLE SODIUM 40 MG TABLET.DR PO SCH (06:12)
[2020-02-07] MEDS: MORPHINE SULFATE 10 MG/5 ML ORAL SOLUTION UDCUP PO PRN (06:46)
[2020-02-07] MEDS: INSULIN LISPRO 100 UNIT/ML 3 ML VIAL SUBCUT SCH ×4 (07:52→22:13)
[2020-02-07] MEDS: GABAPENTIN 300 MG CAPSULE PO SCH ×2 (09:38→22:11)
[2020-02-07] MEDS: DOCUSATE SODIUM 100 MG CAPSULE PO SCH ×2 (09:38→17:12)
[2020-02-07] MEDS: CEFTRIAXONE 2 GM/D5W RTU 2 GM/50 ML RTUPB IV SCH ×2 (09:38→22:12)
[2020-02-07] MEDS: HEPARIN SOD (PORCINE) 5,000 UNIT/ML 1 ML VIAL SUBCUT SCH ×2 (09:38→22:13)
[2020-02-07] MEDS: FLUTICASONE/VILANTEROL 100-25 MCG/DOSE IH SCH (09:39)
[2020-02-07] MEDS: ZINC SULFATE 220 MG CAPSULE PO SCH (09:39)
[2020-02-07] MEDS: SERTRALINE HCL 50 MG TABLET PO SCH (09:39)
[2020-02-07] MEDS: ASCORBIC ACID 500 MG TABLET PO SCH ×2 (09:39→17:12)
[2020-02-07] MEDS: FERROUS SULFATE 325 MG TABLET PO SCH (09:39)
[2020-02-07] MEDS: CHOLECALCIFEROL (D3) 1,000 UNIT (25 MCG) TABLET PO SCH (09:39)
[2020-02-07] MEDS: NORMAL SALINE 10 ML SDV (SCHEDULED) IV SCH ×2 (09:47→22:13)
[2020-02-07] MEDS: MORPHINE SULFATE 10 MG/ML INJ IV PRN ×3 (11:56→22:11)
--- NOTE | 2020-02-07 13:50 | PDOC PROGRESS REPORT ---
Subjective Date:: 02/07/20 Subjective:: SARAHI ST is a 34 year old female with history of morbid obesity, FROYLAN, ast hma, diabetes mellitus, hypertension, anxiety and depression, who presents to the hospital with complaints of diffuse abdominal pain. The pain started 1 day ago. She describes it as aching pain which lasts several minutes. States it occurs every 15 minutes. Feels like a cramping sensation. Denies prior episodes. No notable aggravating or alleviating factors. Denies any relationship with food consumption. Admits to nausea but no vomiting. Denies any vaginal discharge. Denies any urinary symptoms.. Last sexual activity was in 2015. Preceding onset of this symptoms, she states she ate out on Monday. Subsequently became constipated and took a laxative. After that she had a few episodes of diarrhea on Monday and Monday. Pain started on Monday. In the ER, patient received work-up with CT abdomen pelvis without contrast. This incidentally picked up groundglass opacities in patient's lower lungs. Patient also noted to have hypoxia at 90% on room air. She has chronic issues with her breathing and often gets short of breath but is also quite overweight. She has not noted any recent worsening of her breathing. Noted to be febrile in the ER as well. Interval history: 01/23/2020: Patient was seen and examined. She still with high white count. No fever. Complains of abdominal wall pain. 01/24/2020: Patient was seen and examined. White count is improving. No fever. Complains of abdominal wall pain. 01/25/2020: Patient was seen and examined. White count is improving. Afebrile. Improving overall. Repeat cultures still positive for Enterococcus. 01/26/2020: Patient was seen and examined. Had low-grade fever of 100.6 last night. Stable on 4 L of nasal cannula oxygen." 01/27/2020 Still unclear where the source of the patient's infection might be. Per ID, they suspect intra-abdominal source such as the bowel or tract. We will repeat a CT abdomen and this time and on the pelvis as well. This will be done with IV and oral contrast to look for any potential abscesses could have formed along her bowel. She still having vaginal bleeding and states that sometimes she bleeds for an entire month. She does not follow with a [facility] regularly as she does not have insurance. Patient states she feels okay today. MATTHEW is being arranged reportedly. Daptomycin continues. Lower WBC and lower hemoglobin down to 8. Latest blood culture is also positive for Enterococcus, same organism as the previous cultures per micro lab. 01/28/2020 CT abdomen/pelvis with contrast showed possible left renal mass and I have ordered a renal ultrasound to get a closer look at this. Renal ultrasound showed this is likely an abscess rather than a solid tumor. We will need urology opinion and I will give them a call to see if they would like the patient transferred for intervention or if IR would be able to drain this here. Patient remains afebrile. Blood cultures 1/2 growing MRSA. Patient believes the suspected abscess in her left kidney may be the source of her left upper quadrant and left flank pain. 01/29/2020 I called [facility] and spoke with the urologist on staff there and then he called their interventional radiologist had a lengthy discussion about the patient's imaging studies and how this should be addressed. They believe the farzad salcido's renal lesion is likely a phlegmon which may turn into an abscess in the near future. They recommended against attempting to drain this lesion until it becomes an actual liquid abscess. They also noted a lesion in the patient's spleen consistent with septic emboli and similar to the kidney lesion. I believe the patient has showered her organ systems with septic emboli likely from a central source, suspected to be infected endocarditis. MATTHEW was not able to be done as mentioned previously and this will need to be repeated in the near future. We will repeat blood cultures today and if these remain negative we may explore transfer to a CT surgery facility once we can confirm a valvular vegetation on MATTHEW. Patient has no new complaints today. I examined her buttock regions and did not see any open wounds that could be a source for MRSA infection. The patient had mentioned previously having some irritation and possibly an open wound in that area. 01/30/2020 Most recent set of results of blood cultures on 01/26 have now resulted as 1/2 bottles contaminated with coag negative staph, otherwise blood cultures are negative. Patient is continued on daptomycin. Blood cultures drawn yesterday are still pending. Patient states she feels slightly better. Dr. Kimbrough is planning to repeat MATTHEW attempt next week. This is certainly indicated given that she probably has a central source of bloodstream infection showering multiple organs, most likely infected endocarditis. Possible she seeded her heart valves from a skin infection became bacteremia. 01/31/2020 Blood cultures are growing staph species in 1/2 bottles, suspect this may be a contaminant. Patient is having a bit more pain in her left flank and abdomen likely due to the septic emboli in her kidney. She has been using morphine overnight and explained to her that this will not provide lasting pain relief and she should use the Percocet instead and reserve the morphine for breakthrough pain. I also discussed this with the nurse. I have ordered a MATTHEW to be done on Monday assuming Dr. Kimbrough is available for this. I noted she had a positive mycoplasma IgG antibody earlier in the admission she was approp riately treated with a course of azithromycin. Her blood cultures have not grown mycoplasma and this may be simply antibodies from an exposure in the past other than an active infection. D-dimer is higher. We will check PVL BLE to rule out DVT. There is no PE on a recent CTPA. 02/01/2020 Most recent 1/2 blood cultures still growing coag negative staph highly likely a contaminant. If this is the case, patient is to consecutive negative blood culture results from different days. We could say blood is likely cleared of infection as of 01/26. We continue to plan for MATTHEW hopefully on Monday. Order has been placed but the timing of the procedure will be entirely up to Dr. Kimbrough's availability. Patient likely has obesity hypoventilation syndrome and we should not push her oxygen towards 100%. She will likely breathe and feel better overall at a lower O2 saturation around 92% or higher. She is at risk for CO2 retention we do not keep this in mind. 02/02/2020 Patient still having significant left upper quadrant pain likely due to developing splenic abscess. We will repeat a CT abdomen/pelvis with contrast in the next 48 hours to see if this has gone from being a phlegmon to a drainable abscess. Per my discussion with [facility] interventional radiology, they did not recommend attempting to drain any septic emboli unless it had clear evidence of being a liquid abscess. I have added gabapentin to help with the pain and we will continue Percocet and then also morphine for breakthrough pain. Other than that, patient has no new complaints. Will hopefully have MATTHEW done again in the next 48 hours. This is pending Dr. Kimbrough availability. 02/03/2020 Unable to get MATTHEW today due to anesthesia refusing to attempt this again here they stated patient's airway is extremely tenuous and they were barely able to safely intubate the patient previously. Dr. Kimbrough was also concerned after speaking with them that he would likely not have success on the second attempt either. He recommended treating the patient with 6 weeks of IV antibiotics for presumed infective endocarditis. It would be helpful if the patient lost a significant amount of weight over the next 6 weeks as this may assist with the difficult anatomy of her neck. Patient could potentially be discharged home if case management is able to arrange outpatient infusions. She will need a PICC line placed and to have her central line removed. I will place an order for this to be done tomorrow. Patient will need a physician to follow-up her care after she leaves if she continues on IV antibiotics. She will need periodic labs over the next 6 weeks and someone to monitor these. 02/04/20 Patient was seen and examined at bedside. She is still complaining of left sided flank pain which is still likely from septic emboli to her left kidney. I have increased her percocet to q3 hrs and increased her morphine. She got a PICC line today for planned 6 weeks of abx. She is still currently requiring O2 support. Discharge planning still trying to work on setting up home infusion for dapto as well as home O2. Will repeat CT abdomen/pelvis to assess septic emboli to left kidney. 02/05/20 Patient was seen and examined at bedside. Still on her CPAP machine most of the time. Repeat blood culture drawn yesterday still growing Enterococcus. I have touched base with infectious disease regarding this and I was able to speak to Dr. Navarrete. She recommends to talk to the patient about her penicillin allergy possibly switch her over to ceftriaxone and ampicillin regimen since this is much better for Enterococcus. He also recommended to consult CT surgery for her splenic emboli and high suspicion for endocarditis. With her BMI I doubt that he will she will qualify for any surgery but will try to reach out to a CT surgeon tomorrow. We will also ask her about her penicillin allergy. Repeat CT abdomen and pelvis showed grossly stable appearance of the ill-defined area of hypoattenuation along the inferior left kidney. Stable linear area of hypoattenuation within the spleen. Morbid obesity with skin thickening along the pannus suggestive of panniculitis. Moderate left-sided pleural effusion I have changed her pain medications to morphine IR 10 mg every 4 since she claims that she responds more to morphine rather than Percocet. I have stopped her Percocet and her IV morphine. 02/06/20 Patient was seen and examined at bedside. She reports that her pain seems to be much better with the morphine IR however she feels that she is more nauseous with it as well. I have decreased her morphine to 5 mg every 6. I also discussed with her the recent infectious disease recommendation regarding amoxicillin challenge. She stated that she had a reaction to amoxicillin when she was 14 years old when she got it for dental procedure when she developed tongue swelling however she did not report any shortness of breath, no rashes, did not need to go to the emergency room because of severe allergic reaction. Since this remote penicillin allergy happened more than 15 years ago we we have decided to go ahead with challenging her with amoxicillin 50 mg and then observe her for 20 minutes and then full dose 500 mg/h of amoxicillin and observe her for another hour after that. She did not experience any symptoms with the 50 mg of amoxicillin. If she passed a challenge I would likely switch her antibiotics to ceftriaxone, ampicillin to treat her persistent enterococcal bacteremia. 02/07/20 Patient was seen and examined at bedside. Overall feels ok, reports that her oxygen needs from the nasal cannula may be coming down since the removal of pleural effusion yesterday. she is so far tolerating the ceftriaxone/ampicillin regimen. Still reports nausea and headache with the oral morphine so will trial her on [place] instead. She shared that she had a dental procedures a few months ago which she thought might be the source of her Endocarditis since she did not receive any abx. Will plan to repeat her blood cultures in 48 hrs. Reason For Visit: HYPOXIA,FEVER Physical Exam Vital Signs: Temp Pulse Resp BP Pulse Ox 98.9 F 103 H 15 125/50 L 100 02/07/20 12:08 02/07/20 12:40 02/07/20 12:40 02/07/20 12:08 02/07/20 12:08 Intake & Output 02/06/20 02/07/20 02/08/20 06:59 06:59 06:59 Intake Total 1845 350 50 Balance 1845 350 50 Weight 180 kg General appearance: PRESENT: mild distress, morbidly obese Head exam: PRESENT: atraumatic, normocephalic Eye exam: PRESENT: EOMI, PERRLA Mouth exam: PRESENT: moist Neck exam: PRESENT: full ROM Respiratory exam: PRESENT: decreased breath sounds, symmetrical, unlabored Cardiovascular exam: PRESENT: RRR, +S1, +S2 Pulses: PRESENT: +2 pedal pulses bilateral GI/Abdominal exam: PRESENT: normal bowel sounds, soft, tenderness Extremities exam: PRESENT: full ROM Musculoskeletal exam: PRESENT: full ROM Neurological exam: PRESENT: alert, awake, oriented to person, oriented to place, oriented to time, oriented to situation Psychiatric exam: PRESENT: normal mood Skin exam: PRESENT: normal color Results Laboratory Results: 02/05/20 05:51 02/05/20 05:51 02/06/20 15:31 Total Protein Cancelled 02/04/20 09:23 Blood Blood Culture (PCR) - Final Enterococcus Species Staphylococcus Species 02/04/20 09:30 Blood Blood Culture (PCR) - Final Staphylococcus Species 01/25/20 01/26/20 16:00 05:33 Creatine Kinase < 20 L 30 Impressions: Chest/Abdomen CTA 01/22/20 00:00 IMPRESSION: 1. No evidence of pulmonary embolus. 2. Scattered mosaic attenuation throughout the lungs possibly secondary to small airway disease or hypoventilatory change. 3. Trace left pleural effusion. Renal Ultrasound 01/28/20 00:00 IMPRESSION: Avascular approximately 3 cm mass off the inferior pole the left kidney. This most likely represents infectious or inflammatory process. Venous Doppler Study 01/31/20 15:23 IMPRESSION: No DVT in the bilateral lower extremities. PICC Line Insertion 02/04/20 00:00 IMPRESSION: SUCCESSFUL PLACEMENT OF A 5 FR DUAL LUMEN 44 CM PICC IN THE LEFT BASILIC VEIN. Abdomen/Pelvis CT 02/05/20 00:00 IMPRESSION: 1. Grossly stable appearance of the ill-defined area of hypoattenuation along the inferior left kidney. Again, findings may represent pyelonephritis, solid mass or renal infarct with the former favored. There are additional ill-defined areas of hypoattenuation involving the right renal cortex suggestive of pyelonephritis. Recommend correlation with urinalysis. 2. Stable linear area of hypoattenuation within the spleen, possibly infarct or post infectious/traumatic sequelae. 3. Morbid obesity with skin thickening along the pannus suggestive of panniculitis. 4. At least moderate left-sided pleural effusion, partially evaluated. Associated lower lobe atelectasis. Thoracentesis Ultrasound 02/06/20 00:00 IMPRESSION: SUCCESSFUL THORACENTESIS USING ULTRASOUND GUIDANCE. Chest X-Ray 02/06/20 17:39 IMPRESSION: Decreased left effusion. No pneumothorax. Assessment and Plan - Diagnosis (1) Bacteremia due to Enterococcus Is this a current diagnosis for this admission?: Yes Plan: - CT abdomen/pelvis with contrast showed likely septic emboli to left kidney and spleen; discussed with urology and IR at [facility], will hold off on draining these unless they turn into an abscess rather than what appears to be phlegmon - cultures: Blood cultures 01/20+ for Enterococcus, 01/21+ for Enterococcus, 01/23+ for Enterococcus, 01/26 blood cultures growing coag negative staph contaminant in 1/2 bottles otherwise clear, 01/28 growing staph epidermididis - 02/03 blood culture again grew enterococcus and staph epidermidis - TTE 01/24/20 cannot exclude vegetation. LV systolic function is normal, EF 55 to 60%, mild MR, moderate AR. -Patient was challenged with 50 mg oral amoxicillin was observed for 20 minutes for any reaction she did not have any. And then she received full dose 500 mg of amoxicillin for ROM and was observed for the next few hours and she remained stable with no shortness of breath no tongue swelling no hypotension. Antibiotics switched to ceftriaxone and ampicillin per ID recommendations. -She also asked me to consider having CT surgery review her case. With her high BMI I doubt if she will be a candidate for any type of procedure but will try and reach out to a CT surgeon tomorrow. - central line removed (2) Septic embolism Is this a current diagnosis for this admission?: Yes Plan: -Repeat CT abdomen/pelvis with IV and oral contrast showed suspected left renal mass Renal ultrasound showed likely left renal abscess rather than solid mass Had urology at outside hospital to review imaging to decide if suspected left renal abscess can be drained by IR or if the patient needs to be transferred for surgical intervention; they recommended continued IV antibiotics and repeat imaging in the next few weeks if patient worsens clinically as patient may need abscesses drained. -CT abdomen showed stable appearance of previously noted splenic and renal infarcts/abscess -D1 ceftri/ampi started 02/06/20. (3) Acute on chronic respiratory failure with hypoxemia Is this a current diagnosis for this admission?: Yes Plan: - still requiring O2 support, was not previously on o2 at home - COVID negative -CT showed moderate-sized pleural effusion -Status post thoracentesis was able to removed approximately 800 mL of fluid sent for analysis. I am hoping this will improve her respiratory status and she can come off the nasal cannula. - will ask the nurse to wean her off - continue BIPAP PRN and at night (4) FROYLAN on CPAP Is this a current diagnosis for this admission?: Yes Plan: nocturnal cpap (5) Panniculitis Is this a current diagnosis for this admission?: Yes Plan: -Antibiotic switch from Dapto to ceftriaxone/ampicillin. (6) Diabetes mellitus type 2 in obese Is this a current diagnosis for this admission?: Yes Plan: - continue SSI, hypoglycemia protocol and accucheck (7) Sepsis Qualifiers: Sepsis type: sepsis due to unspecified organism Sepsis acute organ dysfunction status: without acute organ dysfunction Qualified Code(s): A41.9 - Sepsis, unspecified organism Is this a current diagnosis for this admission?: Yes Plan: RESOLVED - Leukocytosis, febrile, hypoxic, tachycardic. - source likely endocarditis -Dapto switched to ceftriaxone/ampicillin started 02/06/20 (8) Morbid obesity with BMI of 70 and over, adult Is this a current diagnosis for this admission?: Yes Plan: - BMI over 70 - advised diet and lifestyle modification (9) Essential hypertension Is this a current diagnosis for this admission?: Yes (10) Menometrorrhagia Is this a current diagnosis for this admission?: Yes - Plan Summary Summary: Unfortunately her repeat blood culture done on February 04, 2020 showed persistent enterococcal bacteremia. Upon further discussion with infectious disease they recommend that antibiotics be switched to ceftriaxone ampicillin. Patient has a reported penicillin allergy so I performed an amoxicillin challenge which she passed and was able to switch her antibiotics to ceftriaxone and ampicillin. Unfortunately ampicillin is administered every 4 hours hence she would have to stay in the hospital for the entire duration of her treatment which is likely to be 6 weeks. I spoke to the patient and her mother and they are aware. - Time Time Spent with patient: 25-34 minutes Medications reviewed and adjusted accordingly: Yes Anticipated Discharge Disposition: Home with Home Health Anticipated Discharge Timeframe: tbd
[2020-02-07] MEDS: ALBUTEROL SULFATE 0.083% NEB 2.5 MG/3 ML AMPUL NEB PRN (20:27)
[2020-02-07] MEDS: PRAZOSIN HCL 1 MG PO SCH (22:12)
[2020-02-07] MEDS: INSULIN GLARGINE,HUM.REC.ANLOG 1,000 UNIT/10 ML VIAL SUBCUT SCH (22:13)
--- NOTE | 2020-02-08 01:05 | RADIOLOGY REPORT (SQ) ---
EXAM DESCRIPTION: XR CHEST 1 VIEW COMPLETED DATE/TME: 02/08/2020 00:38 CLINICAL HISTORY: rpneumothorax COMPARISON: 02/06/2020 FINDINGS: Single frontal radiograph view of the chest. Cardiomediastinal silhouette: Cardiomegaly. Left arm PICC with tip in the SVC. Lungs: Persistent bibasilar airspace consolidation, more confluent on the left than the right. No pneumothorax. Left pleural effusion. Leads overlie the chest. Bones: No acute osseous abnormality. Upper abdomen: No abnormality identified. IMPRESSION: 1. Persistent bibasilar airspace opacities, more confluent on the left than the right. Left pleural effusion. No definite pneumothorax.
[2020-02-08] MEDS: ALBUTEROL SULFATE HFA (90 MCG/PUFF) 8 GM MDI IH SCH ×6 (01:49→23:43)
[2020-02-08] MEDS: AMPICILLIN SODIUM 2 GM in NORMAL SALINE 100 ML IV SCH ×6 (02:52→21:57)
[2020-02-08] MEDS: MORPHINE SULFATE 10 MG/ML INJ IV PRN ×5 (02:52→22:20)
[2020-02-08] MEDS: PANTOPRAZOLE SODIUM 40 MG TABLET.DR PO SCH (05:39)
[2020-02-08] MEDS: HYDROXYZINE PAMOATE 50 MG CAPSULE PO SCH ×3 (05:39→21:55)
[2020-02-08 06:05] LABS: ABSOLUTE BASOPHILS # (AUTO) 0.1 10^3/uL (0.0-0.2); ABSOLUTE EOSINOPHILS # (AUTO) 0.2 10^3/uL (0.0-0.6); ABSOLUTE LYMPHOCYTES (AUTO) 1.5 10^3/uL (0.5-4.7); ABSOLUTE MONOCYTES (AUTO) 0.6 10^3/uL (0.1-1.4); ABSOLUTE NEUT (AUTO) 8.4 10^3/uL (1.7-8.2); BASOPHILS % (AUTO) 0.5 % (0-2); HEMATOCRIT 21.5 % (36.0-47.0); LYMPHOCYTES % (AUTO) 14.1 % (13-45); MEAN CORPUSCULAR HEMOGLOBIN 26.4 pg (27.0-33.4); MEAN CORPUSCULAR HGB CONC 31.3 g/dL (32.0-36.0); MEAN CORPUSCULAR VOLUME 85 fl (80-97); MONOCYTES % (AUTO) 5.9 % (3-13); PLATELET COUNT 348 10^3/uL (150-450); RED BLOOD COUNT 2.54 10^6/uL (3.72-5.28); RED CELL DISTRIBUTION WIDTH 17.8 % (11.5-14.0); SEGMENTED NEUTROPHILS % (AUTO) 77.5 % (42-78); TOTAL CELLS COUNTED % (AUTO) 100 %; WHITE BLOOD COUNT 10.8 10^3/uL (4.0-10.5)
[2020-02-08 06:07] LABS: HEMOGLOBIN 6.7 g/dL (12.0-15.5)
[2020-02-08 06:19] LABS: ALKALINE PHOSPHATASE 190 U/L (38-126); ANION GAP 6 (5-19); ASPARTATE AMINO TRANSFERASE 24 U/L (14-36); BILIRUBIN,DIRECT 0.2 mg/dL (0.0-0.4); BILIRUBIN,TOTAL 0.4 mg/dL (0.2-1.3); BLOOD UREA NITROGEN 13 mg/dL (7-20); CALCIUM 8.7 mg/dL (8.4-10.2); CARBON DIOXIDE 28 mmol/L (22-30); CHLORIDE 102 mmol/L (98-107); GLUCOSE 172 mg/dL (75-110); POTASSIUM 4.2 mmol/L (3.6-5.0); TOTAL PROTEIN 6.5 g/dL (6.3-8.2)
[2020-02-08] MEDS: GABAPENTIN 300 MG CAPSULE PO SCH ×2 (09:17→21:55)
[2020-02-08] MEDS: DOCUSATE SODIUM 100 MG CAPSULE PO SCH ×2 (09:17→17:02)
[2020-02-08] MEDS: ASCORBIC ACID 500 MG TABLET PO SCH ×2 (09:17→17:02)
[2020-02-08] MEDS: FERROUS SULFATE 325 MG TABLET PO SCH (09:17)
[2020-02-08] MEDS: INSULIN LISPRO 100 UNIT/ML 3 ML VIAL SUBCUT SCH ×4 (09:17→21:55)
[2020-02-08] MEDS: SERTRALINE HCL 50 MG TABLET PO SCH (09:17)
[2020-02-08] MEDS: CEFTRIAXONE 2 GM/D5W RTU 2 GM/50 ML RTUPB IV SCH ×2 (09:17→21:57)
[2020-02-08] MEDS: CHOLECALCIFEROL (D3) 1,000 UNIT (25 MCG) TABLET PO SCH (09:17)
[2020-02-08] MEDS: NORMAL SALINE 10 ML SDV (SCHEDULED) IV SCH ×2 (09:19→21:57)
[2020-02-08] MEDS: ZINC SULFATE 220 MG CAPSULE PO SCH (09:26)
[2020-02-08] MEDS: HEPARIN SOD (PORCINE) 5,000 UNIT/ML 1 ML VIAL SUBCUT SCH ×2 (09:27→22:14)
[2020-02-08] MEDS: HYDROCODONE/ACETAMINOPHEN 10-325 MG TABLET PO PRN ×2 (10:02→20:03)
[2020-02-08] MEDS: FLUTICASONE/VILANTEROL 100-25 MCG/DOSE IH SCH (10:06)
[2020-02-08] MEDS: ONDANSETRON HCL INJ/PF 4 MG/2 ML SDV IV PRN (12:12)
--- NOTE | 2020-02-08 13:20 | PDOC PROGRESS REPORT ---
Subjective Date:: 02/08/20 Subjective:: SARAHI ST is a 34 year old female with history of morbid obesity, FROYLAN, ast hma, diabetes mellitus, hypertension, anxiety and depression, who presents to the hospital with complaints of diffuse abdominal pain. The pain started 1 day ago. She describes it as aching pain which lasts several minutes. States it occurs every 15 minutes. Feels like a cramping sensation. Denies prior episodes. No notable aggravating or alleviating factors. Denies any relationship with food consumption. Admits to nausea but no vomiting. Denies any vaginal discharge. Denies any urinary symptoms.. Last sexual activity was in 2015. Preceding onset of this symptoms, she states she ate out on Monday. Subsequently became constipated and took a laxative. After that she had a few episodes of diarrhea on Monday and Monday. Pain started on Monday. In the ER, patient received work-up with CT abdomen pelvis without contrast. This incidentally picked up groundglass opacities in patient's lower lungs. Patient also noted to have hypoxia at 90% on room air. She has chronic issues with her breathing and often gets short of breath but is also quite overweight. She has not noted any recent worsening of her breathing. Noted to be febrile in the ER as well. Interval history: 01/23/2020: Patient was seen and examined. She still with high white count. No fever. Complains of abdominal wall pain. 01/24/2020: Patient was seen and examined. White count is improving. No fever. Complains of abdominal wall pain. 01/25/2020: Patient was seen and examined. White count is improving. Afebrile. Improving overall. Repeat cultures still positive for Enterococcus. 01/26/2020: Patient was seen and examined. Had low-grade fever of 100.6 last night. Stable on 4 L of nasal cannula oxygen." 01/27/2020 Still unclear where the source of the patient's infection might be. Per ID, they suspect intra-abdominal source such as the bowel or tract. We will repeat a CT abdomen and this time and on the pelvis as well. This will be done with IV and oral contrast to look for any potential abscesses could have formed along her bowel. She still having vaginal bleeding and states that sometimes she bleeds for an entire month. She does not follow with a balance engineer regularly as she does not have insurance. Patient states she feels okay today. MATTHEW is being arranged reportedly. Daptomycin continues. Lower WBC and lower hemoglobin down to 8. Latest blood culture is also positive for Enterococcus, same organism as the previous cultures per micro lab. 01/28/2020 CT abdomen/pelvis with contrast showed possible left renal mass and I have ordered a renal ultrasound to get a closer look at this. Renal ultrasound showed this is likely an abscess rather than a solid tumor. We will need urology opinion and I will give them a call to see if they would like the patient transferred for intervention or if IR would be able to drain this here. Patient remains afebrile. Blood cultures 1/2 growing MRSA. Patient believes the suspected abscess in her left kidney may be the source of her left upper quadrant and left flank pain. 01/29/2020 I called [facility] and spoke with the urologist on staff there and then he called their interventional radiologist had a lengthy discussion about the patient's imaging studies and how this should be addressed. They believe the farzad salcido's renal lesion is likely a phlegmon which may turn into an abscess in the near future. They recommended against attempting to drain this lesion until it becomes an actual liquid abscess. They also noted a lesion in the patient's spleen consistent with septic emboli and similar to the kidney lesion. I believe the patient has showered her organ systems with septic emboli likely from a central source, suspected to be infected endocarditis. MATTHEW was not able to be done as mentioned previously and this will need to be repeated in the near future. We will repeat blood cultures today and if these remain negative we may explore transfer to a CT surgery facility once we can confirm a valvular vegetation on MATTHEW. Patient has no new complaints today. I examined her buttock regions and did not see any open wounds that could be a source for MRSA infection. The patient had mentioned previously having some irritation and possibly an open wound in that area. 01/30/2020 Most recent set of results of blood cultures on 01/26 have now resulted as 1/2 bottles contaminated with coag negative staph, otherwise blood cultures are negative. Patient is continued on daptomycin. Blood cultures drawn yesterday are still pending. Patient states she feels slightly better. Dr. Kimbrough is planning to repeat MATTHEW attempt next week. This is certainly indicated given that she probably has a central source of bloodstream infection showering multiple organs, most likely infected endocarditis. Possible she seeded her heart valves from a skin infection became bacteremia. 01/31/2020 Blood cultures are growing staph species in 1/2 bottles, suspect this may be a contaminant. Patient is having a bit more pain in her left flank and abdomen likely due to the septic emboli in her kidney. She has been using morphine overnight and explained to her that this will not provide lasting pain relief and she should use the Percocet instead and reserve the morphine for breakthrough pain. I also discussed this with the nurse. I have ordered a MATTHEW to be done on Monday assuming Dr. Kimbrough is available for this. I noted she had a positive mycoplasma IgG antibody earlier in the admission she was approp riately treated with a course of azithromycin. Her blood cultures have not grown mycoplasma and this may be simply antibodies from an exposure in the past other than an active infection. D-dimer is higher. We will check PVL BLE to rule out DVT. There is no PE on a recent CTPA. 02/01/2020 Most recent 1/2 blood cultures still growing coag negative staph highly likely a contaminant. If this is the case, patient is to consecutive negative blood culture results from different days. We could say blood is likely cleared of infection as of 01/26. We continue to plan for MATTHEW hopefully on Monday. Order has been placed but the timing of the procedure will be entirely up to Dr. Kimbrough's availability. Patient likely has obesity hypoventilation syndrome and we should not push her oxygen towards 100%. She will likely breathe and feel better overall at a lower O2 saturation around 92% or higher. She is at risk for CO2 retention we do not keep this in mind. 02/02/2020 Patient still having significant left upper quadrant pain likely due to developing splenic abscess. We will repeat a CT abdomen/pelvis with contrast in the next 48 hours to see if this has gone from being a phlegmon to a drainable abscess. Per my discussion with [facility] interventional radiology, they did not recommend attempting to drain any septic emboli unless it had clear evidence of being a liquid abscess. I have added gabapentin to help with the pain and we will continue Percocet and then also morphine for breakthrough pain. Other than that, patient has no new complaints. Will hopefully have MATTHEW done again in the next 48 hours. This is pending Dr. Kimbrough availability. 02/03/2020 Unable to get MATTHEW today due to anesthesia refusing to attempt this again here they stated patient's airway is extremely tenuous and they were barely able to safely intubate the patient previously. Dr. Kimbrough was also concerned after speaking with them that he would likely not have success on the second attempt either. He recommended treating the patient with 6 weeks of IV antibiotics for presumed infective endocarditis. It would be helpful if the patient lost a significant amount of weight over the next 6 weeks as this may assist with the difficult anatomy of her neck. Patient could potentially be discharged home if case management is able to arrange outpatient infusions. She will need a PICC line placed and to have her central line removed. I will place an order for this to be done tomorrow. Patient will need a physician to follow-up her care after she leaves if she continues on IV antibiotics. She will need periodic labs over the next 6 weeks and someone to monitor these. 02/04/20 Patient was seen and examined at bedside. She is still complaining of left sided flank pain which is still likely from septic emboli to her left kidney. I have increased her percocet to q3 hrs and increased her morphine. She got a PICC line today for planned 6 weeks of abx. She is still currently requiring O2 support. Discharge planning still trying to work on setting up home infusion for dapto as well as home O2. Will repeat CT abdomen/pelvis to assess septic emboli to left kidney. 02/05/20 Patient was seen and examined at bedside. Still on her CPAP machine most of the time. Repeat blood culture drawn yesterday still growing Enterococcus. I have touched base with infectious disease regarding this and I was able to speak to Dr. Navarrete. She recommends to talk to the patient about her penicillin allergy possibly switch her over to ceftriaxone and ampicillin regimen since this is much better for Enterococcus. He also recommended to consult CT surgery for her splenic emboli and high suspicion for endocarditis. With her BMI I doubt that he will she will qualify for any surgery but will try to reach out to a CT surgeon tomorrow. We will also ask her about her penicillin allergy. Repeat CT abdomen and pelvis showed grossly stable appearance of the ill-defined area of hypoattenuation along the inferior left kidney. Stable linear area of hypoattenuation within the spleen. Morbid obesity with skin thickening along the pannus suggestive of panniculitis. Moderate left-sided pleural effusion I have changed her pain medications to morphine IR 10 mg every 4 since she claims that she responds more to morphine rather than Percocet. I have stopped her Percocet and her IV morphine. 02/06/20 Patient was seen and examined at bedside. She reports that her pain seems to be much better with the morphine IR however she feels that she is more nauseous with it as well. I have decreased her morphine to 5 mg every 6. I also discussed with her the recent infectious disease recommendation regarding amoxicillin challenge. She stated that she had a reaction to amoxicillin when she was 14 years old when she got it for dental procedure when she developed tongue swelling however she did not report any shortness of breath, no rashes, did not need to go to the emergency room because of severe allergic reaction. Since this remote penicillin allergy happened more than 15 years ago we we have decided to go ahead with challenging her with amoxicillin 50 mg and then observe her for 20 minutes and then full dose 500 mg/h of amoxicillin and observe her for another hour after that. She did not experience any symptoms with the 50 mg of amoxicillin. If she passed a challenge I would likely switch her antibiotics to ceftriaxone, ampicillin to treat her persistent enterococcal bacteremia. 02/07/20 Patient was seen and examined at bedside. Overall feels ok, reports that her oxygen needs from the nasal cannula may be coming down since the removal of pleural effusion yesterday. she is so far tolerating the ceftriaxone/ampicillin regimen. Still reports nausea and headache with the oral morphine so will trial her on [place] instead. She shared that she had a dental procedures a few months ago which she thought might be the source of her Endocarditis since she did not receive any abx. Will plan to repeat her blood cultures in 48 hrs. 02/08/20 Patient was seen and examined at bedside. She denied any new complains, still with pain on left side. Her hgb was noted to be 6.7 but she denies any melena, hematemesis. She was given 1 unit PRBC. Otherwise she is doing about the same. Plan to repeat blood culture on monday.She was complaining of right lower leg pain. Venous doppler ordered to rule out DVT Reason For Visit: HYPOXIA,FEVER Physical Exam Vital Signs: Temp Pulse Resp BP Pulse Ox 97.6 F 100 20 127/46 H 94 02/08/20 12:09 02/08/20 12:09 02/08/20 12:09 02/08/20 12:09 02/08/20 12:09 Intake & Output 02/07/20 02/08/20 02/09/20 06:59 06:59 06:59 Intake Total 350 960 390 Balance 350 960 390 General appearance: PRESENT: cooperative, morbidly obese Head exam: PRESENT: atraumatic, normocephalic Eye exam: PRESENT: EOMI, PERRLA Mouth exam: PRESENT: moist Neck exam: PRESENT: full ROM Respiratory exam: PRESENT: clear to auscultation syl, symmetrical, unlabored Cardiovascular exam: PRESENT: RRR, +S1, +S2 Pulses: PRESENT: +2 pedal pulses bilateral GI/Abdominal exam: PRESENT: normal bowel sounds, soft. ABSENT: rebound, t enderness Extremities exam: PRESENT: full ROM Musculoskeletal exam: PRESENT: full ROM Neurological exam: PRESENT: alert, awake, oriented to person, oriented to place, oriented to time, oriented to situation Psychiatric exam: PRESENT: normal mood Skin exam: PRESENT: normal color Results Laboratory Results: 02/08/20 05:43 02/08/20 05:43 02/08/20 02/08/20 02/08/20 05:43 05:43 06:40 WBC 10.8 H RBC 2.54 L Hgb 6.7 L Hct 21.5 L MCV 85 MCH 26.4 L MCHC 31.3 L RDW 17.8 H Plt Count 348 Seg Neutrophils % 77.5 Sodium 136.0 L Potassium 4.2 Chloride 102 Carbon Dioxide 28 Anion Gap 6 BUN 13 Creatinine 0.80 Est GFR ( Amer) > 60 Glucose 172 H Calcium 8.7 Total Bilirubin 0.4 AST 24 Alkaline Phosphatase 190 H Total Protein 6.5 Albumin 3.0 L Blood Type O POSITIVE Antibody Screen NEGATIVE 02/04/20 09:23 Blood Blood Culture (PCR) - Final Enterococcus Species Staphylococcus Species 02/04/20 09:30 Blood Blood Culture (PCR) - Final Staphylococcus Species 02/04/20 09:30 Blood Blood Culture - Final Staphylococcus Epidermidis 01/25/20 01/26/20 16:00 05:33 Creatine Kinase < 20 L 30 Impressions: Chest/Abdomen CTA 01/22/20 00:00 IMPRESSION: 1. No evidence of pulmonary embolus. 2. Scattered mosaic attenuation throughout the lungs possibly secondary to small airway disease or hypoventilatory change. 3. Trace left pleural effusion. Renal Ultrasound 01/28/20 00:00 IMPRESSION: Avascular approximately 3 cm mass off the inferior pole the left kidney. This most likely represents infectious or inflammatory process. Venous Doppler Study 01/31/20 15:23 IMPRESSION: No DVT in the bilateral lower extremities. PICC Line Insertion 02/04/20 00:00 IMPRESSION: SUCCESSFUL PLACEMENT OF A 5 FR DUAL LUMEN 44 CM PICC IN THE LEFT BASILIC VEIN. Abdomen/Pelvis CT 02/05/20 00:00 IMPRESSION: 1. Grossly stable appearance of the ill-defined area of hypoattenuation along the inferior left kidney. Again, findings may represent pyelonephritis, solid mass or renal infarct with the former favored. There are additional ill-defined areas of hypoattenuation involving the right renal cortex suggestive of pyelonephritis. Recommend correlation with urinalysis. 2. Stable linear area of hypoattenuation within the spleen, possibly infarct or post infectious/traumatic sequelae. 3. Morbid obesity with skin thickening along the pannus suggestive of panniculitis. 4. At least moderate left-sided pleural effusion, partially evaluated. Associated lower lobe atelectasis. Thoracentesis Ultrasound 02/06/20 00:00 IMPRESSION: SUCCESSFUL THORACENTESIS USING ULTRASOUND GUIDANCE. Chest X-Ray 02/07/20 00:00 IMPRESSION: 1. Persistent bibasilar airspace opacities, more confluent on the left than the right. Left pleural effusion. No definite pneumothorax. Assessment and Plan - Diagnosis (1) Normocytic anemia Is this a current diagnosis for this admission?: Yes Plan: - Hgb 6.7 likely due to chronic medical condition on top of blood draws - I do not think she has any active bleeding - s/p 1 u PRBC (2) Bacteremia due to Enterococcus Is this a current diagnosis for this admission?: Yes Plan: - CT abdomen/pelvis with contrast showed likely septic emboli to left kidney and spleen; discussed with urology and IR at [facility], will hold off on draining these unless they turn into an abscess rather than what appears to be phlegmon - cultures: Blood cultures 01/20+ for Enterococcus, 01/21+ for Enterococcus, 01/23+ for Enterococcus, 01/26 blood cultures growing coag negative staph contaminant in 1/2 bottles otherwise clear, 01/28 growing staph epidermidis - 02/03 blood culture again grew enterococcus and staph epidermidis - TTE 01/24/20 cannot exclude vegetation. LV systolic function is normal, EF 55 to 60%, mild MR, moderate AR. -Patient was challenged with 50 mg oral amoxicillin was observed for 20 minutes for any reaction she did not have any. And then she received full dose 500 mg of amoxicillin for ROM and was observed for the next few hours and she remained stable with no shortness of breath no tongue swelling no hypotension. An tibiotics switched to ceftriaxone and ampicillin per ID recommendations. -She also asked me to consider having CT surgery review her case. With her high BMI I doubt if she will be a candidate for any type of procedure but will try and reach out to a CT surgeon. - on ceftri/ampi day 2 - central line removed (3) Septic embolism Is this a current diagnosis for this admission?: Yes Plan: -Repeat CT abdomen/pelvis with IV and oral contrast showed suspected left renal mass Renal ultrasound showed likely left renal abscess rather than solid mass Had urology at outside hospital to review imaging to decide if suspected left renal abscess can be drained by IR or if the patient needs to be transferred for surgical intervention; they recommended continued IV antibiotics and repeat imaging in the next few weeks if patient worsens clinically as patient may need abscesses drained. -CT abdomen showed stable appearance of previously noted splenic and renal infarcts/abscess -D1 ceftri/ampi started 02/06/20. (4) Acute on chronic respiratory failure with hypoxemia Is this a current diagnosis for this admission?: Yes Plan: - still requiring O2 support, was not previously on o2 at home - COVID negative -CT showed moderate-sized pleural effusion -Status post thoracentesis was able to removed approximately 800 mL of fluid sent for analysis. I am hoping this will improve her respiratory status and she can come off the nasal cannula. - will ask the nurse to wean her off - continue BIPAP PRN and at night (5) FROYLAN on CPAP Is this a current diagnosis for this admission?: Yes Plan: nocturnal cpap (6) Panniculitis Is this a current diagnosis for this admission?: Yes Plan: -Antibiotic switch from Dapto to ceftriaxone/ampicillin. (7) Diabetes mellitus type 2 in obese Is this a current diagnosis for this admission?: Yes Plan: - continue SSI, hypoglycemia protocol and accucheck (8) Sepsis Qualifiers: Sepsis type: sepsis due to unspecified organism Sepsis acute organ dysfunction status: without acute organ dysfunction Qualified Code(s): A41.9 - Sepsis, unspecified organism Is this a current diagnosis for this admission?: Yes Plan: RESOLVED - Leukocytosis, febrile, hypoxic, tachycardic. - source likely endocarditis -Dapto switched to ceftriaxone/ampicillin started 02/06/20 (9) Morbid obesity with BMI of 70 and over, adult Is this a current diagnosis for this admission?: Yes Plan: - BMI over 70 - advised diet and lifestyle modification (10) Essential hypertension Is this a current diagnosis for this admission?: Yes (11) Menometrorrhagia Is this a current diagnosis for this admission?: Yes - Plan Summary Summary: Unfortunately her repeat blood culture done on February 04, 2020 showed persiste nt enterococcal bacteremia. Upon further discussion with infectious disease they recommend that antibiotics be switched to ceftriaxone ampicillin. Patient has a reported penicillin allergy so I performed an amoxicillin challenge which she passed and was able to switch her antibiotics to ceftriaxone and ampicillin. Unfortunately ampicillin is administered every 4 hours hence she would have to stay in the hospital for the entire duration of her treatment which is likely to be 6 weeks. I spoke to the patient and her mother and they are aware. - Time Time Spent with patient: 25-34 minutes Medications reviewed and adjusted accordingly: Yes Anticipated Discharge Disposition: Home with Home Health Anticipated Discharge Timeframe: TBD
--- NOTE | 2020-02-08 15:00 | EKG REPORT ---
SEVERITY:- BORDERLINE ECG - SINUS TACHYCARDIA BORDERLINE T WAVE ABNORMALITIES : Confirmed by: Luzmaria Lindsey 08-Feb-2020 14:59:03
[2020-02-08 15:11] LABS: ABSOLUTE EOSINOPHILS # (AUTO) 0.3 10^3/uL (0.0-0.6); ABSOLUTE LYMPHOCYTES (AUTO) 1.6 10^3/uL (0.5-4.7); ABSOLUTE MONOCYTES (AUTO) 0.6 10^3/uL (0.1-1.4); ABSOLUTE NEUT (AUTO) 8.4 10^3/uL (1.7-8.2); BASOPHILS % (AUTO) 0.2 % (0-2); EOSINOPHILS % (AUTO) 2.4 % (0-6); HEMATOCRIT 25.5 % (36.0-47.0); LYMPHOCYTES % (AUTO) 14.9 % (13-45); MEAN CORPUSCULAR HGB CONC 31.4 g/dL (32.0-36.0); MEAN CORPUSCULAR VOLUME 83 fl (80-97); MONOCYTES % (AUTO) 5.2 % (3-13); PLATELET COUNT 354 10^3/uL (150-450); RED BLOOD COUNT 3.08 10^6/uL (3.72-5.28); RED CELL DISTRIBUTION WIDTH 17.6 % (11.5-14.0); SEGMENTED NEUTROPHILS % (AUTO) 77.3 % (42-78); TOTAL CELLS COUNTED % (AUTO) 100 %; WHITE BLOOD COUNT 10.8 10^3/uL (4.0-10.5)
[2020-02-08] MEDS ORDERED: ALBUTEROL SULFATE HFA (90 MCG/PUFF) 8 GM MDI IH ONE (18:23)
[2020-02-08] MEDS: ALBUTEROL SULFATE 0.083% NEB 2.5 MG/3 ML AMPUL NEB PRN (19:42)
[2020-02-08] MEDS: ACETAMINOPHEN 325 MG TABLET PO PRN (20:03)
[2020-02-08] MEDS: INSULIN GLARGINE,HUM.REC.ANLOG 1,000 UNIT/10 ML VIAL SUBCUT SCH (21:56)
[2020-02-08] MEDS: PRAZOSIN HCL 1 MG PO SCH (21:57)
[2020-02-09] MEDS: AMPICILLIN SODIUM 2 GM in NORMAL SALINE 100 ML IV SCH ×6 (03:00→21:53)
[2020-02-09] MEDS: HYDROCODONE/ACETAMINOPHEN 10-325 MG TABLET PO PRN ×3 (03:05→21:56)
[2020-02-09] MEDS: PANTOPRAZOLE SODIUM 40 MG TABLET.DR PO SCH (05:29)
[2020-02-09] MEDS: HYDROXYZINE PAMOATE 50 MG CAPSULE PO SCH ×3 (05:29→21:50)
[2020-02-09] MEDS: ALBUTEROL SULFATE HFA (90 MCG/PUFF) 8 GM MDI IH SCH ×4 (05:30→23:23)
[2020-02-09] MEDS: SERTRALINE HCL 50 MG TABLET PO SCH (09:18)
[2020-02-09] MEDS: ASCORBIC ACID 500 MG TABLET PO SCH ×2 (09:18→17:28)
[2020-02-09] MEDS: FERROUS SULFATE 325 MG TABLET PO SCH (09:18)
[2020-02-09] MEDS: NORMAL SALINE 10 ML SDV (SCHEDULED) IV SCH ×2 (09:18→21:53)
[2020-02-09] MEDS: DOCUSATE SODIUM 100 MG CAPSULE PO SCH ×2 (09:18→17:28)
[2020-02-09] MEDS: GABAPENTIN 300 MG CAPSULE PO SCH ×2 (09:18→21:50)
[2020-02-09] MEDS: ZINC SULFATE 220 MG CAPSULE PO SCH (09:18)
[2020-02-09] MEDS: CHOLECALCIFEROL (D3) 1,000 UNIT (25 MCG) TABLET PO SCH (09:18)
[2020-02-09] MEDS: INSULIN LISPRO 100 UNIT/ML 3 ML VIAL SUBCUT SCH ×4 (09:19→21:48)
[2020-02-09] MEDS: FLUTICASONE/VILANTEROL 100-25 MCG/DOSE IH SCH (09:19)
[2020-02-09] MEDS: HEPARIN SOD (PORCINE) 5,000 UNIT/ML 1 ML VIAL SUBCUT SCH ×2 (09:19→21:49)
[2020-02-09] MEDS: CEFTRIAXONE 2 GM/D5W RTU 2 GM/50 ML RTUPB IV SCH ×2 (09:19→22:59)
[2020-02-09 11:18] LABS: ALBUMIN BODY FLUID 2.1 g/dL (Not Estab.)
[2020-02-09] MEDS: MORPHINE SULFATE 10 MG/ML INJ IV PRN ×2 (13:08→19:48)
[2020-02-09] MEDS: ONDANSETRON HCL INJ/PF 4 MG/2 ML SDV IV PRN (13:15)
--- NOTE | 2020-02-09 13:23 | PDOC PROGRESS REPORT ---
Subjective Date:: 02/09/20 Subjective:: SARAHI TS is a 34 year old female with history of morbid obesity, FROYLAN, ast hma, diabetes mellitus, hypertension, anxiety and depression, who presents to the hospital with complaints of diffuse abdominal pain. The pain started 1 day ago. She describes it as aching pain which lasts several minutes. States it occurs every 15 minutes. Feels like a cramping sensation. Denies prior episodes. No notable aggravating or alleviating factors. Denies any relationship with food consumption. Admits to nausea but no vomiting. Denies any vaginal discharge. Denies any urinary symptoms.. Last sexual activity was in 2015. Preceding onset of this symptoms, she states she ate out on Monday. Subsequently became constipated and took a laxative. After that she had a few episodes of diarrhea on Monday and Monday. Pain started on Monday. In the ER, patient received work-up with CT abdomen pelvis without contrast. This incidentally picked up groundglass opacities in patient's lower lungs. Patient also noted to have hypoxia at 90% on room air. She has chronic issues with her breathing and often gets short of breath but is also quite overweight. She has not noted any recent worsening of her breathing. Noted to be febrile in the ER as well. Interval history: 01/23/2020: Patient was seen and examined. She still with high white count. No fever. Complains of abdominal wall pain. 01/24/2020: Patient was seen and examined. White count is improving. No fever. Complains of abdominal wall pain. 01/25/2020: Patient was seen and examined. White count is improving. Afebrile. Improving overall. Repeat cultures still positive for Enterococcus. 01/26/2020: Patient was seen and examined. Had low-grade fever of 100.6 last night. Stable on 4 L of nasal cannula oxygen." 01/27/2020 Still unclear where the source of the patient's infection might be. Per ID, they suspect intra-abdominal source such as the bowel or tract. We will repeat a CT abdomen and this time and on the pelvis as well. This will be done with IV and oral contrast to look for any potential abscesses could have formed along her bowel. She still having vaginal bleeding and states that sometimes she bleeds for an entire month. She does not follow with a paid internship regularly as she does not have insurance. Patient states she feels okay today. MATTHEW is being arranged reportedly. Daptomycin continues. Lower WBC and lower hemoglobin down to 8. Latest blood culture is also positive for Enterococcus, same organism as the previous cultures per micro lab. 01/28/2020 CT abdomen/pelvis with contrast showed possible left renal mass and I have ordered a renal ultrasound to get a closer look at this. Renal ultrasound showed this is likely an abscess rather than a solid tumor. We will need urology opinion and I will give them a call to see if they would like the patient transferred for intervention or if IR would be able to drain this here. Patient remains afebrile. Blood cultures 1/2 growing MRSA. Patient believes the suspected abscess in her left kidney may be the source of her left upper quadrant and left flank pain. 01/29/2020 I called [facility] and spoke with the urologist on staff there and then he called their interventional radiologist had a lengthy discussion about the patient's imaging studies and how this should be addressed. They believe the farzad salcido's renal lesion is likely a phlegmon which may turn into an abscess in the near future. They recommended against attempting to drain this lesion until it becomes an actual liquid abscess. They also noted a lesion in the patient's spleen consistent with septic emboli and similar to the kidney lesion. I believe the patient has showered her organ systems with septic emboli likely from a central source, suspected to be infected endocarditis. MATTHEW was not able to be done as mentioned previously and this will need to be repeated in the near future. We will repeat blood cultures today and if these remain negative we may explore transfer to a CT surgery facility once we can confirm a valvular vegetation on MATTHEW. Patient has no new complaints today. I examined her buttock regions and did not see any open wounds that could be a source for MRSA infection. The patient had mentioned previously having some irritation and possibly an open wound in that area. 01/30/2020 Most recent set of results of blood cultures on 01/26 have now resulted as 1/2 bottles contaminated with coag negative staph, otherwise blood cultures are negative. Patient is continued on daptomycin. Blood cultures drawn yesterday are still pending. Patient states she feels slightly better. Dr. Kimbrough is planning to repeat MATTHEW attempt next week. This is certainly indicated given that she probably has a central source of bloodstream infection showering multiple organs, most likely infected endocarditis. Possible she seeded her heart valves from a skin infection became bacteremia. 01/31/2020 Blood cultures are growing staph species in 1/2 bottles, suspect this may be a contaminant. Patient is having a bit more pain in her left flank and abdomen likely due to the septic emboli in her kidney. She has been using morphine overnight and explained to her that this will not provide lasting pain relief and she should use the Percocet instead and reserve the morphine for breakthrough pain. I also discussed this with the nurse. I have ordered a MATTHEW to be done on Monday assuming Dr. Kimbrough is available for this. I noted she had a positive mycoplasma IgG antibody earlier in the admission she was approp riately treated with a course of azithromycin. Her blood cultures have not grown mycoplasma and this may be simply antibodies from an exposure in the past other than an active infection. D-dimer is higher. We will check PVL BLE to rule out DVT. There is no PE on a recent CTPA. 02/01/2020 Most recent 1/2 blood cultures still growing coag negative staph highly likely a contaminant. If this is the case, patient is to consecutive negative blood culture results from different days. We could say blood is likely cleared of infection as of 01/26. We continue to plan for MATTHEW hopefully on Monday. Order has been placed but the timing of the procedure will be entirely up to Dr. Kimbrough's availability. Patient likely has obesity hypoventilation syndrome and we should not push her oxygen towards 100%. She will likely breathe and feel better overall at a lower O2 saturation around 92% or higher. She is at risk for CO2 retention we do not keep this in mind. 02/02/2020 Patient still having significant left upper quadrant pain likely due to developing splenic abscess. We will repeat a CT abdomen/pelvis with contrast in the next 48 hours to see if this has gone from being a phlegmon to a drainable abscess. Per my discussion with [facility] interventional radiology, they did not recommend attempting to drain any septic emboli unless it had clear evidence of being a liquid abscess. I have added gabapentin to help with the pain and we will continue Percocet and then also morphine for breakthrough pain. Other than that, patient has no new complaints. Will hopefully have MATTHEW done again in the next 48 hours. This is pending Dr. Kimbrough availability. 02/03/2020 Unable to get MATTHEW today due to anesthesia refusing to attempt this again here they stated patient's airway is extremely tenuous and they were barely able to safely intubate the patient previously. Dr. Kimbrough was also concerned after speaking with them that he would likely not have success on the second attempt either. He recommended treating the patient with 6 weeks of IV antibiotics for presumed infective endocarditis. It would be helpful if the patient lost a significant amount of weight over the next 6 weeks as this may assist with the difficult anatomy of her neck. Patient could potentially be discharged home if case management is able to arrange outpatient infusions. She will need a PICC line placed and to have her central line removed. I will place an order for this to be done tomorrow. Patient will need a physician to follow-up her care after she leaves if she continues on IV antibiotics. She will need periodic labs over the next 6 weeks and someone to monitor these. 02/04/20 Patient was seen and examined at bedside. She is still complaining of left sided flank pain which is still likely from septic emboli to her left kidney. I have increased her percocet to q3 hrs and increased her morphine. She got a PICC line today for planned 6 weeks of abx. She is still currently requiring O2 support. Discharge planning still trying to work on setting up home infusion for dapto as well as home O2. Will repeat CT abdomen/pelvis to assess septic emboli to left kidney. 02/05/20 Patient was seen and examined at bedside. Still on her CPAP machine most of the time. Repeat blood culture drawn yesterday still growing Enterococcus. I have touched base with infectious disease regarding this and I was able to speak to Dr. Navarrete. She recommends to talk to the patient about her penicillin allergy possibly switch her over to ceftriaxone and ampicillin regimen since this is much better for Enterococcus. He also recommended to consult CT surgery for her splenic emboli and high suspicion for endocarditis. With her BMI I doubt that he will she will qualify for any surgery but will try to reach out to a CT surgeon tomorrow. We will also ask her about her penicillin allergy. Repeat CT abdomen and pelvis showed grossly stable appearance of the ill-defined area of hypoattenuation along the inferior left kidney. Stable linear area of hypoattenuation within the spleen. Morbid obesity with skin thickening along the pannus suggestive of panniculitis. Moderate left-sided pleural effusion I have changed her pain medications to morphine IR 10 mg every 4 since she claims that she responds more to morphine rather than Percocet. I have stopped her Percocet and her IV morphine. 02/06/20 Patient was seen and examined at bedside. She reports that her pain seems to be much better with the morphine IR however she feels that she is more nauseous with it as well. I have decreased her morphine to 5 mg every 6. I also discussed with her the recent infectious disease recommendation regarding amoxicillin challenge. She stated that she had a reaction to amoxicillin when she was 14 years old when she got it for dental procedure when she developed tongue swelling however she did not report any shortness of breath, no rashes, did not need to go to the emergency room because of severe allergic reaction. Since this remote penicillin allergy happened more than 15 years ago we we have decided to go ahead with challenging her with amoxicillin 50 mg and then observe her for 20 minutes and then full dose 500 mg/h of amoxicillin and observe her for another hour after that. She did not experience any symptoms with the 50 mg of amoxicillin. If she passed a challenge I would likely switch her antibiotics to ceftriaxone, ampicillin to treat her persistent enterococcal bacteremia. 02/07/20 Patient was seen and examined at bedside. Overall feels ok, reports that her oxygen needs from the nasal cannula may be coming down since the removal of pleural effusion yesterday. she is so far tolerating the ceftriaxone/ampicillin regimen. Still reports nausea and headache with the oral morphine so will trial her on [place] instead. She shared that she had a dental procedures a few months ago which she thought might be the source of her Endocarditis since she did not receive any abx. Will plan to repeat her blood cultures in 48 hrs. 02/08/20 Patient was seen and examined at bedside. She denied any new complains, still with pain on left side. Her hgb was noted to be 6.7 but she denies any melena, hematemesis. She was given 1 unit PRBC. Otherwise she is doing about the same. Plan to repeat blood culture on monday.She was complaining of right lower leg pain. Venous doppler ordered to rule out DVT 02/09/20 Patient was seen and examined at bedside. No new complains, remained afebrile. No chest pain, no SOB, still with stable left sided pain. I talked to her about putting PT on consult and she said she would like to try and could come off the CPAP and be on nasal cannula. Repeat blood culture tomorrow morning. hgb 8.0 today. She received 1 unit of PRBC Reason For Visit: HYPOXIA,FEVER Physical Exam Vital Signs: Temp Pulse Resp BP Pulse Ox 97.7 F 108 H 21 H 115/29 L 91 L 02/09/20 08:32 02/09/20 08:32 02/09/20 08:32 02/09/20 08:32 02/09/20 08:32 Intake & Output 02/08/20 02/09/20 02/10/20 06:59 06:59 06:59 Intake Total 960 1950 150 Output Total 0 Balance 960 1950 150 General appearance: PRESENT: cooperative, mild distress Head exam: PRESENT: atraumatic, normocephalic Eye exam: PRESENT: EOMI, PERRLA Mouth exam: PRESENT: moist Neck exam: PRESENT: full ROM Respiratory exam: PRESENT: clear to auscultation syl, symmetrical, unlabored Cardiovascular exam: PRESENT: RRR, +S1, +S2 Pulses: PRESENT: +2 pedal pulses bilateral GI/Abdominal exam: PRESENT: normal bowel sounds Extremities exam: PRESENT: full ROM Musculoskeletal exam: PRESENT: full ROM Neurological exam: PRESENT: alert, awake, oriented to person, oriented to place, oriented to time, oriented to situation Psychiatric exam: PRESENT: normal mood Skin exam: PRESENT: normal color Results Laboratory Results: 02/08/20 14:55 02/08/20 05:43 02/06/20 02/06/20 02/08/20 15:31 15:31 14:55 WBC 10.8 H RBC 3.08 L Hgb 8.0 L Hct 25.5 L MCV 83 MCH 26.0 L MCHC 31.4 L RDW 17.6 H Plt Count 354 Seg Neutrophils % 77.3 Fluid Glucose 186 Fluid Total Protein 4.3 Fluid Albumin 2.1 Fluid LDH 283 02/04/20 09:23 Blood Blood Culture (PCR) - Final Enterococcus Species Staphylococcus Species 02/06/20 15:31 Pleural Fluid Gram Stain - Final 02/04/20 09:30 Blood Blood Culture (PCR) - Final Staphylococcus Species 02/04/20 09:30 Blood Blood Culture - Final Staphylococcus Epidermidis 01/25/20 01/26/20 16:00 05:33 Creatine Kinase < 20 L 30 Impressions: Chest/Abdomen CTA 01/22/20 00:00 IMPRESSION: 1. No evidence of pulmonary embolus. 2. Scattered mosaic attenuation throughout the lungs possibly secondary to small airway disease or hypoventilatory change. 3. Trace left pleural effusion. Renal Ultrasound 01/28/20 00:00 IMPRESSION: Avascular approximately 3 cm mass off the inferior pole the left kidney. This most likely represents infectious or inflammatory process. Venous Doppler Study 01/31/20 15:23 IMPRESSION: No DVT in the bilateral lower extremities. PICC Line Insertion 02/04/20 00:00 IMPRESSION: SUCCESSFUL PLACEMENT OF A 5 FR DUAL LUMEN 44 CM PICC IN THE LEFT BASILIC VEIN. Abdomen/Pelvis CT 02/05/20 00:00 IMPRESSION: 1. Grossly stable appearance of the ill-defined area of hypoattenu ation along the inferior left kidney. Again, findings may represent pyelonephritis, solid mass or renal infarct with the former favored. There are additional ill-defined areas of hypoattenuation involving the right renal cortex suggestive of pyelonephritis. Recommend correlation with urinalysis. 2. Stable linear area of hypoattenuation within the spleen, possibly infarct or post infectious/traumatic sequelae. 3. Morbid obesity with skin thickening along the pannus suggestive of panniculitis. 4. At least moderate left-sided pleural effusion, partially evaluated. Associated lower lobe atelectasis. Thoracentesis Ultrasound 02/06/20 00:00 IMPRESSION: SUCCESSFUL THORACENTESIS USING ULTRASOUND GUIDANCE. Chest X-Ray 02/07/20 00:00 IMPRESSION: 1. Persistent bibasilar airspace opacities, more confluent on the left than the right. Left pleural effusion. No definite pneumothorax. Assessment and Plan - Diagnosis (1) Normocytic anemia Is this a current diagnosis for this admission?: Yes Plan: - Hgb 6.7>8.0 post transfusion likely due to chronic medical condition on top of blood draws - I do not think she has any active bleeding - s/p 1 u PRBC (2) Bacteremia due to Enterococcus Is this a current diagnosis for this admission?: Yes Plan: - CT abdomen/pelvis with contrast showed likely septic emboli to left kidney and spleen; discussed with urology and IR at [facility], will hold off on draining these unless they turn into an abscess rather than what appears to be phlegmon - cultures: Blood cultures 01/20+ for Enterococcus, 01/21+ for Enterococcus, 01/23+ for Enterococcus, 01/26 blood cultures growing coag negative staph contaminant in 1/2 bottles otherwise clear, 01/28 growing staph epidermidis - 02/03 blood culture again grew enterococcus and staph epidermidis - TTE 01/24/20 cannot exclude vegetation. LV systolic function is normal, EF 55 to 60%, mild MR, moderate AR. -Patient was challenged with 50 mg oral amoxicillin was observed for 20 minutes for any reaction she did not have any. And then she received full dose 500 mg of amoxicillin for ROM and was observed for the next few hours and she remained stable with no shortness of breath no tongue swelling no hypotension. Antibiotics switched to ceftriaxone and ampicillin per ID recommendations. -She also asked me to consider having CT surgery review her case. With her high BMI I doubt if she will be a candidate for any type of procedure but will try and reach out to a CT surgeon. - on ceftri/ampi day 3 - central line removed (3) Septic embolism Is this a current diagnosis for this admission?: Yes Plan: -Repeat CT abdomen/pelvis with IV and oral contrast showed suspected left renal mass Renal ultrasound showed likely left renal abscess rather than solid mass Had urology at outside hospital to review imaging to decide if suspected left renal abscess can be drained by IR or if the patient needs to be transferred for surgical intervention; they recommended continued IV antibiotics and repeat imaging in the next few weeks if patient worsens clinically as patient may need abscesses drained. -CT abdomen showed stable appearance of previously noted splenic and renal infarcts/abscess -D3 ceftri/ampi started 02/06/20. (4) Acute on chronic respiratory failure with hypoxemia Is this a current diagnosis for this admission?: Yes Plan: - still requiring O2 support, was not previously on o2 at home - COVID negative -CT showed moderate-sized pleural effusion -Status post thoracentesis was able to removed approximately 800 mL of fluid sent for analysis. I am hoping this will improve her respiratory status and she can come off the nasal cannula. - will ask the nurse to wean her off - continue BIPAP PRN and at night (5) FROYLAN on CPAP Is this a current diagnosis for this admission?: Yes Plan: nocturnal cpap. She mainly wears this because she is sleeping al throughout the day otherwise she feels she can do PT without it. (6) Panniculitis Is this a current diagnosis for this admission?: Yes Plan: -Antibiotic switch from Dapto to ceftriaxone/ampicillin. (7) Diabetes mellitus type 2 in obese Is this a current diagnosis for this admission?: Yes Plan: - continue SSI, hypoglycemia protocol and accucheck (8) Sepsis Qualifiers: Sepsis type: sepsis due to unspecified organism Sepsis acute organ dysfunction status: without acute organ dysfunction Qualified Code(s): A41.9 - Sepsis, unspecified organism Is this a current diagnosis for this admission?: Yes Plan: RESOLVED - Leukocytosis, febrile, hypoxic, tachycardic. - source likely endocarditis -Dapto switched to ceftriaxone/ampicillin started 02/06/20 (9) Morbid obesity with BMI of 70 and over, adult Is this a current diagnosis for this admission?: Yes Plan: - BMI over 70 - advised diet and lifestyle modification (10) Essential hypertension Is this a current diagnosis for this admission?: Yes (11) Menometrorrhagia Is this a current diagnosis for this admission?: Yes - Plan Summary Summary: Unfortunately her repeat blood culture done on February 04, 2020 showed persistent enterococcal bacteremia. Upon further discussion with infectious disease they recommend that antibiotics be switched to ceftriaxone ampicillin. Patient has a reported penicillin allergy so I performed an amoxicillin challenge which she passed and was able to switch her antibiotics to ceftriaxone and ampicillin. Unfortunately ampicillin is administered every 4 hours hence she would have to stay in the hospital for the entire duration of her treatment which is likely to be 6 weeks. I spoke to the patient and her mother and they are aware. - Time Time Spent with patient: 25-34 minutes Medications reviewed and adjusted accordingly: Yes Anticipated Discharge Disposition: Home with Home Health Anticipated Discharge Timeframe: TBD
--- NOTE | 2020-02-09 16:02 | RADIOLOGY REPORT (SQ) ---
EXAM DESCRIPTION: VENOUS UNILATERAL LOWER IMAGES COMPLETED DATE/TIME: 02/09/2020 2:58 pm REASON FOR STUDY: LE pain COMPARISON: None. TECHNIQUE: Dynamic and static ortega scale and color images acquired of the right leg venous system. S elected spectral images acquired with additional compression and augmentation maneuvers. The contrala teral common femoral vein and saphenofemoral junction were also imaged. Images stored on PACS. LIMITATIONS: None. FINDINGS: COMMON FEMORAL: Normal phasicity, compression and augmentation. No visualized echogenic ma terial on ortega scale. No defects on color images. FEMORAL: Normal compression and augmentation. No visualized echogenic material on ortega scale. No defe cts on color images. Nonvisualization of the mid and distal superficial femoral veins. POPLITEAL: Normal compression, augmentation. No visualized echogenic material on ortega scale. No defec ts on color images. CALF VESSELS (posterior tibial vein): Normal compression, augmentation. No visualized echogenic mater ial on ortega scale. No defects on color images. GSV and SSV: Normal compression, augmentation. No visualized echogenic material on ortega scale. No def ects on color images. ANY DEEP VENOUS INSUFFICIENCY: Not evaluated. ANY EVIDENCE OF POPLITEAL CYST: No. OTHER: No other significant finding. CONTRALATERAL COMMON FEMORAL VEIN AND SAPHENOFEMORAL JUNCTION: Normal phasicity, compression and augmentation. No visualized echogenic material on ortega scale. No de fects on color images. IMPRESSION: No evidence of DVT or SVT in the visualized veins of the right leg. Limited exam with n onvisualization of the mid/distal superficial femoral and peroneal veins. TECHNICAL DOCUMENTATION: JOB ID: [id number] 2010 [employer]- All Rights Reserved Reading location - IP/workstation name: [email or web address]
[2020-02-09] MEDS: ALBUTEROL SULFATE 0.083% NEB 2.5 MG/3 ML AMPUL NEB PRN (19:29)
[2020-02-09] MEDS: PRAZOSIN HCL 1 MG PO SCH (21:50)
[2020-02-09] MEDS: INSULIN GLARGINE,HUM.REC.ANLOG 1,000 UNIT/10 ML VIAL SUBCUT SCH (21:56)
[2020-02-09] MEDS: DICYCLOMINE HCL 10 MG CAPSULE PO PRN (23:04)
[2020-02-10] MEDS: MORPHINE SULFATE 10 MG/ML INJ IV PRN ×4 (00:22→20:32)
[2020-02-10] MEDS: AMPICILLIN SODIUM 2 GM in NORMAL SALINE 100 ML IV SCH ×6 (01:26→22:43)
[2020-02-10] MEDS: HYDROXYZINE PAMOATE 50 MG CAPSULE PO SCH ×3 (05:28→22:41)
[2020-02-10] MEDS: PANTOPRAZOLE SODIUM 40 MG TABLET.DR PO SCH (05:28)
[2020-02-10] MEDS: ALBUTEROL SULFATE HFA (90 MCG/PUFF) 8 GM MDI IH SCH ×4 (05:29→23:35)
[2020-02-10] MEDS: INSULIN LISPRO 100 UNIT/ML 3 ML VIAL SUBCUT SCH ×4 (07:21→22:41)
[2020-02-10 10:15] LABS: ABSOLUTE BASOPHILS # (AUTO) 0.1 10^3/uL (0.0-0.2); ABSOLUTE EOSINOPHILS # (AUTO) 0.3 10^3/uL (0.0-0.6); ABSOLUTE LYMPHOCYTES (AUTO) 1.5 10^3/uL (0.5-4.7); ABSOLUTE MONOCYTES (AUTO) 0.5 10^3/uL (0.1-1.4); ABSOLUTE NEUT (AUTO) 7.6 10^3/uL (1.7-8.2); BASOPHILS % (AUTO) 1.4 % (0-2); EOSINOPHILS % (AUTO) 3.1 % (0-6); HEMATOCRIT 24.1 % (36.0-47.0); LYMPHOCYTES % (AUTO) 15.2 % (13-45); MEAN CORPUSCULAR HEMOGLOBIN 26.4 pg (27.0-33.4); MEAN CORPUSCULAR HGB CONC 31.8 g/dL (32.0-36.0); MEAN CORPUSCULAR VOLUME 83 fl (80-97); MONOCYTES % (AUTO) 4.8 % (3-13); PLATELET COUNT 338 10^3/uL (150-450); RED CELL DISTRIBUTION WIDTH 17.8 % (11.5-14.0); SEGMENTED NEUTROPHILS % (AUTO) 75.5 % (42-78); TOTAL CELLS COUNTED % (AUTO) 100 %; WHITE BLOOD COUNT 10.1 10^3/uL (4.0-10.5)
[2020-02-10 10:16] LABS: HEMOGLOBIN 7.7 g/dL (12.0-15.5)
[2020-02-10] MEDS: HEPARIN SOD (PORCINE) 5,000 UNIT/ML 1 ML VIAL SUBCUT SCH ×2 (10:34→22:44)
[2020-02-10] MEDS: CEFTRIAXONE 2 GM/D5W RTU 2 GM/50 ML RTUPB IV SCH ×2 (10:35→22:43)
[2020-02-10] MEDS: ZINC SULFATE 220 MG CAPSULE PO SCH (10:35)
[2020-02-10] MEDS: SERTRALINE HCL 50 MG TABLET PO SCH (10:37)
[2020-02-10] MEDS: CHOLECALCIFEROL (D3) 1,000 UNIT (25 MCG) TABLET PO SCH (10:38)
[2020-02-10] MEDS: DOCUSATE SODIUM 100 MG CAPSULE PO SCH ×2 (10:38→18:05)
[2020-02-10] MEDS: GABAPENTIN 300 MG CAPSULE PO SCH ×2 (10:38→22:40)
[2020-02-10] MEDS: FLUTICASONE/VILANTEROL 100-25 MCG/DOSE IH SCH (10:38)
[2020-02-10] MEDS: FERROUS SULFATE 325 MG TABLET PO SCH (10:38)
[2020-02-10] MEDS: NORMAL SALINE 10 ML SDV (SCHEDULED) IV SCH ×2 (10:38→22:42)
[2020-02-10] MEDS: ASCORBIC ACID 500 MG TABLET PO SCH ×2 (10:38→18:05)
[2020-02-10 11:41] LABS: ALKALINE PHOSPHATASE 210 U/L (38-126); ANION GAP 9 (5-19); ASPARTATE AMINO TRANSFERASE 22 U/L (14-36); BILIRUBIN,DIRECT 0.4 mg/dL (0.0-0.4); BILIRUBIN,TOTAL 0.6 mg/dL (0.2-1.3); BLOOD UREA NITROGEN 11 mg/dL (7-20); CALCIUM 8.9 mg/dL (8.4-10.2); CARBON DIOXIDE 29 mmol/L (22-30); CHLORIDE 100 mmol/L (98-107); GLUCOSE 145 mg/dL (75-110); POTASSIUM 4.4 mmol/L (3.6-5.0); TOTAL PROTEIN 6.8 g/dL (6.3-8.2)
[2020-02-10] MEDS: HYDROCODONE/ACETAMINOPHEN 10-325 MG TABLET PO PRN (14:42)
--- NOTE | 2020-02-10 15:39 | PDOC PROGRESS REPORT ---
Subjective Date:: 02/10/20 Subjective:: SARAHI ST is a 34 year old female with history of morbid obesity, FROYLAN, ast hma, diabetes mellitus, hypertension, anxiety and depression, who presents to the hospital with complaints of diffuse abdominal pain. The pain started 1 day ago. She describes it as aching pain which lasts several minutes. States it occurs every 15 minutes. Feels like a cramping sensation. Denies prior episodes. No notable aggravating or alleviating factors. Denies any relationship with food consumption. Admits to nausea but no vomiting. Denies any vaginal discharge. Denies any urinary symptoms.. Last sexual activity was in 2015. Preceding onset of this symptoms, she states she ate out on Monday. Subsequently became constipated and took a laxative. After that she had a few episodes of diarrhea on Monday and Monday. Pain started on Monday. In the ER, patient received work-up with CT abdomen pelvis without contrast. This incidentally picked up groundglass opacities in patient's lower lungs. Patient also noted to have hypoxia at 90% on room air. She has chronic issues with her breathing and often gets short of breath but is also quite overweight. She has not noted any recent worsening of her breathing. Noted to be febrile in the ER as well. Interval history: 01/23/2020: Patient was seen and examined. She still with high white count. No fever. Complains of abdominal wall pain. 01/24/2020: Patient was seen and examined. White count is improving. No fever. Complains of abdominal wall pain. 01/25/2020: Patient was seen and examined. White count is improving. Afebrile. Improving overall. Repeat cultures still positive for Enterococcus. 01/26/2020: Patient was seen and examined. Had low-grade fever of 100.6 last night. Stable on 4 L of nasal cannula oxygen." 01/27/2020 Still unclear where the source of the patient's infection might be. Per ID, they suspect intra-abdominal source such as the bowel or tract. We will repeat a CT abdomen and this time and on the pelvis as well. This will be done with IV and oral contrast to look for any potential abscesses could have formed along her bowel. She still having vaginal bleeding and states that sometimes she bleeds for an entire month. 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 Patient states she feels okay today. MATTHEW is being arranged reportedly. Daptomycin continues. Lower WBC and lower hemoglobin down to 8. Latest blood culture is also positive for Enterococcus, same organism as the previous cultures per micro lab. 01/28/2020 CT abdomen/pelvis with contrast showed possible left renal mass and I have ordered a renal ultrasound to get a closer look at this. Renal ultrasound showed this is likely an abscess rather than a solid tumor. We will need urology opinion and I will give them a call to see if they would like the patient transferred for intervention or if IR would be able to drain this here. Patient remains afebrile. Blood cultures 1/2 growing MRSA. Patient believes the suspected abscess in her left kidney may be the source of her left upper quadrant and left flank pain. 01/29/2020 I called [facility] and spoke with the urologist on staff there and then he called their interventional radiologist had a lengthy discussion about the patient's imaging studies and how this should be addressed. They believe the farzad salcido's renal lesion is likely a phlegmon which may turn into an abscess in the near future. They recommended against attempting to drain this lesion until it becomes an actual liquid abscess. They also noted a lesion in the patient's spleen consistent with septic emboli and similar to the kidney lesion. I believe the patient has showered her organ systems with septic emboli likely from a central source, suspected to be infected endocarditis. MATTHEW was not able to be done as mentioned previously and this will need to be repeated in the near future. We will repeat blood cultures today and if these remain negative we may explore transfer to a CT surgery facility once we can confirm a valvular vegetation on MATTHEW. Patient has no new complaints today. I examined her buttock regions and did not see any open wounds that could be a source for MRSA infection. The patient had mentioned previously having some irritation and possibly an open wound in that area. 01/30/2020 Most recent set of results of blood cultures on 01/26 have now resulted as 1/2 bottles contaminated with coag negative staph, otherwise blood cultures are negative. Patient is continued on daptomycin. Blood cultures drawn yesterday are still pending. Patient states she feels slightly better. Dr. Kimbrough is planning to repeat MATTHEW attempt next week. This is certainly indicated given that she probably has a central source of bloodstream infection showering multiple organs, most likely infected endocarditis. Possible she seeded her heart valves from a skin infection became bacteremia. 01/31/2020 Blood cultures are growing staph species in 1/2 bottles, suspect this may be a contaminant. Patient is having a bit more pain in her left flank and abdomen likely due to the septic emboli in her kidney. She has been using morphine overnight and explained to her that this will not provide lasting pain relief and she should use the Percocet instead and reserve the morphine for breakthrough pain. I also discussed this with the nurse. I have ordered a MATTHEW to be done on Monday assuming Dr. Kimbrough is available for this. I noted she had a positive mycoplasma IgG antibody earlier in the admission she was approp riately treated with a course of azithromycin. Her blood cultures have not grown mycoplasma and this may be simply antibodies from an exposure in the past other than an active infection. D-dimer is higher. We will check PVL BLE to rule out DVT. There is no PE on a recent CTPA. 02/01/2020 Most recent 1/2 blood cultures still growing coag negative staph highly likely a contaminant. If this is the case, patient is to consecutive negative blood culture results from different days. We could say blood is likely cleared of infection as of 01/26. We continue to plan for MATTHEW hopefully on Monday. Order has been placed but the timing of the procedure will be entirely up to Dr. Kimbrough's availability. Patient likely has obesity hypoventilation syndrome and we should not push her oxygen towards 100%. She will likely breathe and feel better overall at a lower O2 saturation around 92% or higher. She is at risk for CO2 retention we do not keep this in mind. 02/02/2020 Patient still having significant left upper quadrant pain likely due to developing splenic abscess. We will repeat a CT abdomen/pelvis with contrast in the next 48 hours to see if this has gone from being a phlegmon to a drainable abscess. Per my discussion with [facility] interventional radiology, they did not recommend attempting to drain any septic emboli unless it had clear evidence of being a liquid abscess. I have added gabapentin to help with the pain and we will continue Percocet and then also morphine for breakthrough pain. Other than that, patient has no new complaints. Will hopefully have MATTHEW done again in the next 48 hours. This is pending Dr. Kimbrough availability. 02/03/2020 Unable to get MATTHEW today due to anesthesia refusing to attempt this again here they stated patient's airway is extremely tenuous and they were barely able to safely intubate the patient previously. Dr. Kimbrough was also concerned after speaking with them that he would likely not have success on the second attempt either. He recommended treating the patient with 6 weeks of IV antibiotics for presumed infective endocarditis. It would be helpful if the patient lost a significant amount of weight over the next 6 weeks as this may assist with the difficult anatomy of her neck. Patient could potentially be discharged home if case management is able to arrange outpatient infusions. She will need a PICC line placed and to have her central line removed. I will place an order for this to be done tomorrow. Patient will need a physician to follow-up her care after she leaves if she continues on IV antibiotics. She will need periodic labs over the next 6 weeks and someone to monitor these. 02/04/20 Patient was seen and examined at bedside. She is still complaining of left sided flank pain which is still likely from septic emboli to her left kidney. I have increased her percocet to q3 hrs and increased her morphine. She got a PICC line today for planned 6 weeks of abx. She is still currently requiring O2 support. Discharge planning still trying to work on setting up home infusion for dapto as well as home O2. Will repeat CT abdomen/pelvis to assess septic emboli to left kidney. 02/05/20 Patient was seen and examined at bedside. Still on her CPAP machine most of the time. Repeat blood culture drawn yesterday still growing Enterococcus. I have touched base with infectious disease regarding this and I was able to speak to Dr. Navarrete. She recommends to talk to the patient about her penicillin allergy possibly switch her over to ceftriaxone and ampicillin regimen since this is much better for Enterococcus. He also recommended to consult CT surgery for her splenic emboli and high suspicion for endocarditis. With her BMI I doubt that he will she will qualify for any surgery but will try to reach out to a CT surgeon tomorrow. We will also ask her about her penicillin allergy. Repeat CT abdomen and pelvis showed grossly stable appearance of the ill-defined area of hypoattenuation along the inferior left kidney. Stable linear area of hypoattenuation within the spleen. Morbid obesity with skin thickening along the pannus suggestive of panniculitis. Moderate left-sided pleural effusion I have changed her pain medications to morphine IR 10 mg every 4 since she claims that she responds more to morphine rather than Percocet. I have stopped her Percocet and her IV morphine. 02/06/20 Patient was seen and examined at bedside. She reports that her pain seems to be much better with the morphine IR however she feels that she is more nauseous with it as well. I have decreased her morphine to 5 mg every 6. I also discussed with her the recent infectious disease recommendation regarding amoxicillin challenge. She stated that she had a reaction to amoxicillin when she was 14 years old when she got it for dental procedure when she developed tongue swelling however she did not report any shortness of breath, no rashes, did not need to go to the emergency room because of severe allergic reaction. Since this remote penicillin allergy happened more than 15 years ago we we have decided to go ahead with challenging her with amoxicillin 50 mg and then observe her for 20 minutes and then full dose 500 mg/h of amoxicillin and observe her for another hour after that. She did not experience any symptoms with the 50 mg of amoxicillin. If she passed a challenge I would likely switch her antibiotics to ceftriaxone, ampicillin to treat her persistent enterococcal bacteremia. 02/07/20 Patient was seen and examined at bedside. Overall feels ok, reports that her oxygen needs from the nasal cannula may be coming down since the removal of pleural effusion yesterday. she is so far tolerating the ceftriaxone/ampicillin regimen. Still reports nausea and headache with the oral morphine so will trial her on [place] instead. She shared that she had a dental procedures a few months ago which she thought might be the source of her Endocarditis since she did not receive any abx. Will plan to repeat her blood cultures in 48 hrs. 02/08/20 Patient was seen and examined at bedside. She denied any new complains, still with pain on left side. Her hgb was noted to be 6.7 but she denies any melena, hematemesis. She was given 1 unit PRBC. Otherwise she is doing about the same. Plan to repeat blood culture on monday.She was complaining of right lower leg pain. Venous doppler ordered to rule out DVT 02/09/20 Patient was seen and examined at bedside. No new complains, remained afebrile. No chest pain, no SOB, still with stable left sided pain. I talked to her about putting PT on consult and she said she would like to try and could come off the CPAP and be on nasal cannula. Repeat blood culture tomorrow morning. hgb 8.0 today. She received 1 unit of PRBC 02/10/20 Patient was seen and examined at bedside. No new complains. She will be assessed by physical therapy today. Repeat blood cultures were drawn today. She has been afebrile al throughout. I have discussed her case with CT surgery PA at [facility] Richard and he stated that they're ability to properly assess her is very limited because she does not have adequate imaging of her presumed endocarditis. She is on Day 4 of Ceftri/ampi regimen and repeat blood cultures were drawn today. Reason For Visit: HYPOXIA,FEVER Physical Exam Vital Signs: Temp Pulse Resp BP Pulse Ox 98.7 F 109 H 18 114/47 L 95 02/10/20 12:00 02/10/20 14:00 02/10/20 12:52 02/10/20 12:00 02/10/20 12:52 Intake & Output 02/09/20 02/10/20 02/11/20 06:59 06:59 06:59 Intake Total 1949 2075 72 Output Total 0 Balance 1949 Weight 180.2 kg General appearance: PRESENT: no acute distress, cooperative, morbidly obese Head exam: PRESENT: atraumatic, normocephalic Eye exam: PRESENT: EOMI, PERRLA Mouth exam: PRESENT: moist Neck exam: PRESENT: full ROM Respiratory exam: PRESENT: clear to auscultation syl, symmetrical, unlabored Cardiovascular exam: PRESENT: RRR, +S1, +S2 Pulses: PRESENT: +2 pedal pulses bilateral GI/Abdominal exam: PRESENT: normal bowel sounds, soft. ABSENT: rebound, tenderness Extremities exam: PRESENT: full ROM. ABSENT: +2 edema Musculoskeletal exam: PRESENT: full ROM Neurological exam: PRESENT: alert, awake, oriented to person, oriented to place, oriented to time, oriented to situation Psychiatric exam: PRESENT: normal mood Skin exam: PRESENT: normal color Results Laboratory Results: 02/10/20 08:30 02/10/20 08:30 02/10/20 02/10/20 08:30 08:30 WBC 10.1 RBC 2.90 L Hgb 7.7 L Hct 24.1 L MCV 83 MCH 26.4 L MCHC 31.8 L RDW 17.8 H Plt Count 338 Seg Neutrophils % 75.5 Sodium 137.9 Potassium 4.4 Chloride 100 Carbon Dioxide 29 Anion Gap 9 BUN 11 Creatinine 0.80 Est GFR ( Amer) > 60 Glucose 145 H Calcium 8.9 Total Bilirubin 0.6 AST 22 Alkaline Phosphatase 210 H Total Protein 6.8 Albumin 3.0 L 02/04/20 09:23 Blood Blood Culture (PCR) - Final Enterococcus Species Staphylococcus Species 02/04/20 09:23 Blood Blood Culture - Final Staphylococcus Epidermidis Enterococcus Faecalis(Group D) 02/06/20 15:31 Pleural Fluid Gram Stain - Final 02/06/20 15:31 Pleural Fluid Body Fluid Culture - Final NO AEROBIC OR ANAEROBIC ORGANISMS RECOVERED 01/25/20 01/26/20 16:00 05:33 Creatine Kinase < 20 L 30 Impressions: Chest/Abdomen CTA 01/22/20 00:00 IMPRESSION: 1. No evidence of pulmonary embolus. 2. Scattered mosaic attenuation throughout the lungs possibly secondary to small airway disease or hypoventilatory change. 3. Trace left pleural effusion. Renal Ultrasound 01/28/20 00:00 IMPRESSION: Avascular approximately 3 cm mass off the inferior pole the left kidney. This most likely represents infectious or inflammatory process. PICC Line Insertion 02/04/20 00:00 IMPRESSION: SUCCESSFUL PLACEMENT OF A 5 FR DUAL LUMEN 44 CM PICC IN THE LEFT BASILIC VEIN. Abdomen/Pelvis CT 02/05/20 00:00 IMPRESSION: 1. Grossly stable appearance of the ill-defined area of hypoattenuation along the inferior left kidney. Again, findings may represent pyelonephritis, solid mass or renal infarct with the former favored. There are additional ill-defined areas of hypoattenuation involving the right renal cortex suggestive of pyelonephritis. Recommend correlation with urinalysis. 2. Stable linear area of hypoattenuation within the spleen, possibly infarct or post infectious/traumatic sequelae. 3. Morbid obesity with skin thickening along the pannus suggestive of panniculitis. 4. At least moderate left-sided pleural effusion, partially evaluated. Ass ociated lower lobe atelectasis. Thoracentesis Ultrasound 02/06/20 00:00 IMPRESSION: SUCCESSFUL THORACENTESIS USING ULTRASOUND GUIDANCE. Chest X-Ray 02/07/20 00:00 IMPRESSION: 1. Persistent bibasilar airspace opacities, more confluent on the left than the right. Left pleural effusion. No definite pneumothorax. Venous Doppler Study 02/09/20 00:00 IMPRESSION: No evidence of DVT or SVT in the visualized veins of the right leg. Limited exam with nonvisualization of the mid/distal superficial femoral and p eroneal veins. Assessment and Plan - Diagnosis (1) Normocytic anemia Is this a current diagnosis for this admission?: Yes Plan: - Hgb 6.7>8.0>7.7 post transfusion likely due to chronic medical condition on top of blood draws - I do not think she has any active bleeding - s/p 1 u PRBC (2) Bacteremia due to Enterococcus Is this a current diagnosis for this admission?: Yes Plan: - CT abdomen/pelvis with contrast showed likely septic emboli to left kidney and spleen; discussed with urology and IR at [facility], will hold off on draining these unless they turn into an abscess rather than what appears to be phlegmon - cultures: Blood cultures 01/20+ for Enterococcus, 01/21+ for Enterococcus, 01/23+ for Enterococcus, 01/26 blood cultures growing coag negative staph contaminant in 1/2 bottles otherwise clear, 01/28 growing staph epidermidis - 02/03 blood culture again grew enterococcus and staph epidermidis - TTE 01/24/20 cannot exclude vegetation. LV systolic function is normal, EF 55 to 60%, mild MR, moderate AR. -Patient was challenged with 50 mg oral amoxicillin was observed for 20 minutes for any reaction she did not have any. And then she received full dose 500 mg of amoxicillin for ROM and was observed for the next few hours and she remained stable with no shortness of breath no tongue swelling no hypotension. Antibiotics switched to ceftriaxone and ampicillin per ID recommendations. -I discussed her case with [facility] CT surgery department and I was able to speak to their PA Richard and unfortunately there is that their ability to help her is limited by the fact that she does not have adequate imaging to properly confirm endocarditis and assess valvular dysfunction. - on ceftri/ampi day 4 -Repeat blood cultures February 10, 2020 drawn awaiting result. - Patient has a PICC line. (3) Septic embolism Is this a current diagnosis for this admission?: Yes Plan: -Repeat CT abdomen/pelvis with IV and oral contrast showed suspected left renal mass Renal ultrasound showed likely left renal abscess rather than solid mass Had urology at outside hospital to review imaging to decide if suspected left renal abscess can be drained by IR or if the patient needs to be transferred for surgical intervention; they recommended continued IV antibiotics and repeat imaging in the next few weeks if patient worsens clinically as patient may need abscesses drained. -CT abdomen repeat showed stable appearance of previously noted splenic and renal infarcts/abscess -D4 ceftri/ampi started 02/06/20. (4) Acute on chronic respiratory failure with hypoxemia Is this a current diagnosis for this admission?: Yes Plan: - still requiring O2 support, was not previously on o2 at home - COVID negative -CT showed moderate-sized pleural effusion -Status post thoracentesis was able to remove approximately 800 mL of fluid sent for analysis. I am hoping this will improve her respiratory status and she can come off the nasal cannula. -Pleural fluid analysis culture and Gram stain negative - +ve lights criteria Exudative. Likely from ongoing infection - will ask the nurse to wean her off - continue BIPAP PRN and at night (5) FROYLAN on CPAP Is this a current diagnosis for this admission?: Yes Plan: nocturnal cpap. She mainly wears this because she is sleeping al throughout the day otherwise she feels she can do PT without it. (6) Panniculitis Is this a current diagnosis for this admission?: Yes Plan: -Antibiotic switch from Dapto to ceftriaxone/ampicillin. (7) Diabetes mellitus type 2 in obese Is this a current diagnosis for this admission?: Yes Plan: - continue SSI, hypoglycemia protocol and accucheck (8) Sepsis Qualifiers: Sepsis type: sepsis due to unspecified organism Sepsis acute organ dysfunction status: without acute organ dysfunction Qualified Code(s): A41.9 - Sepsis, unspecified organism Is this a current diagnosis for this admission?: Yes Plan: RESOLVED - Leukocytosis, febrile, hypoxic, tachycardic. - source likely endocarditis -Dapto switched to ceftriaxone/ampicillin started 02/06/20 (9) Morbid obesity with BMI of 70 and over, adult Is this a current diagnosis for this admission?: Yes Plan: - BMI over 70 - advised diet and lifestyle modification (10) Essential hypertension Is this a current diagnosis for this admission?: Yes (11) Menometrorrhagia Is this a current diagnosis for this admission?: Yes - Plan Summary Summary: Unfortunately her repeat blood culture done on February 04, 2020 showed persistent enterococcal bacteremia. Upon further discussion with infectious disease they recommend that antibiotics be switched to ceftriaxone ampicillin. Patient has a reported penicillin allergy so I performed an amoxicillin challenge which she passed and was able to switch her antibiotics to ceftriaxone and ampicillin. Unfortunately ampicillin is administered every 4 hours hence she would have to stay in the hospital for the entire duration of her treatment which is likely to be 6 weeks. I spoke to the patient and her mother and they are aware. Discussed the case with CT surgery PA from [facility] Richard and he said that they are limited by her lack of imaging to confirm endocarditis. - Time Time Spent with patient: 25-34 minutes Medications reviewed and adjusted accordingly: Yes Anticipated Discharge Disposition: Home with Home Health Anticipated Discharge Timeframe: TBD
[2020-02-10] MEDS: ALBUTEROL SULFATE 0.083% NEB 2.5 MG/3 ML AMPUL NEB PRN (19:36)
[2020-02-10] MEDS: PRAZOSIN HCL 1 MG PO SCH (22:40)
[2020-02-10] MEDS: INSULIN GLARGINE,HUM.REC.ANLOG 1,000 UNIT/10 ML VIAL SUBCUT SCH (22:42)
[2020-02-11] MEDS: MORPHINE SULFATE 10 MG/ML INJ IV PRN ×3 (02:40→20:10)
[2020-02-11] MEDS: AMPICILLIN SODIUM 2 GM in NORMAL SALINE 100 ML IV SCH ×6 (04:00→21:42)
[2020-02-11] MEDS: HYDROXYZINE PAMOATE 50 MG CAPSULE PO SCH ×3 (05:39→21:37)
[2020-02-11] MEDS: PANTOPRAZOLE SODIUM 40 MG TABLET.DR PO SCH (05:39)
[2020-02-11] MEDS: ALBUTEROL SULFATE HFA (90 MCG/PUFF) 8 GM MDI IH SCH ×3 (05:39→18:01)
[2020-02-11] MEDS: INSULIN LISPRO 100 UNIT/ML 3 ML VIAL SUBCUT SCH ×4 (07:37→21:37)
[2020-02-11] MEDS: HYDROCODONE/ACETAMINOPHEN 10-325 MG TABLET PO PRN ×2 (07:41→17:49)
[2020-02-11] MEDS: SERTRALINE HCL 50 MG TABLET PO SCH (10:27)
[2020-02-11] MEDS: ZINC SULFATE 220 MG CAPSULE PO SCH (10:27)
[2020-02-11] MEDS: DOCUSATE SODIUM 100 MG CAPSULE PO SCH ×2 (10:27→17:50)
[2020-02-11] MEDS: FERROUS SULFATE 325 MG TABLET PO SCH (10:27)
[2020-02-11] MEDS: ASCORBIC ACID 500 MG TABLET PO SCH ×2 (10:27→17:50)
[2020-02-11] MEDS: GABAPENTIN 300 MG CAPSULE PO SCH ×2 (10:27→21:37)
[2020-02-11] MEDS: CHOLECALCIFEROL (D3) 1,000 UNIT (25 MCG) TABLET PO SCH (10:27)
[2020-02-11] MEDS: CEFTRIAXONE 2 GM/D5W RTU 2 GM/50 ML RTUPB IV SCH ×2 (10:28→22:58)
[2020-02-11] MEDS: FLUTICASONE/VILANTEROL 100-25 MCG/DOSE IH SCH (10:49)
[2020-02-11] MEDS: ONDANSETRON HCL INJ/PF 4 MG/2 ML SDV IV PRN (11:28)
[2020-02-11 11:30] LABS: HEMATOCRIT 25.2 % (36.0-47.0); MEAN CORPUSCULAR HEMOGLOBIN 26.6 pg (27.0-33.4); MEAN CORPUSCULAR HGB CONC 31.7 g/dL (32.0-36.0); MEAN CORPUSCULAR VOLUME 84 fl (80-97); PLATELET COUNT 358 10^3/uL (150-450); RED CELL DISTRIBUTION WIDTH 17.7 % (11.5-14.0); WHITE BLOOD COUNT 9.4 10^3/uL (4.0-10.5)
[2020-02-11] MEDS: HEPARIN SOD (PORCINE) 5,000 UNIT/ML 1 ML VIAL SUBCUT SCH ×2 (11:45→21:36)
[2020-02-11] MEDS: NORMAL SALINE 10 ML SDV (SCHEDULED) IV SCH ×2 (11:46→21:39)
[2020-02-11 12:02] LABS: ANION GAP 6 (5-19); BLOOD UREA NITROGEN 12 mg/dL (7-20); CALCIUM 8.9 mg/dL (8.4-10.2); CARBON DIOXIDE 29 mmol/L (22-30); CHLORIDE 101 mmol/L (98-107); GLUCOSE 178 mg/dL (75-110); POTASSIUM 4.3 mmol/L (3.6-5.0)
--- NOTE | 2020-02-11 18:20 | PDOC PROGRESS REPORT ---
Subjective Date:: 02/11/20 Subjective:: NAEO. Feels well. No complaints. Reason For Visit: HYPOXIA,FEVER Physical Exam Vital Signs: Temp Pulse Resp BP Pulse Ox 98.6 F 100 20 129/43 H 99 02/11/20 16:49 02/11/20 16:49 02/11/20 16:49 02/11/20 16:49 02/11/20 16:49 Intake & Output 02/10/20 02/11/20 02/12/20 06:59 06:59 06:59 Intake Total 2075 2491 220 Balance 2075 2491 220 Weight 180.2 kg 180.2 kg 180.2 kg General appearance: PRESENT: no acute distress Eye exam: ABSENT: scleral icterus Mouth exam: PRESENT: moist Throat exam: ABSENT: post pharyngeal erythema Neck exam: ABSENT: JVD Respiratory exam: PRESENT: clear to auscultation syl, unlabored Cardiovascular exam: PRESENT: RRR GI/Abdominal exam: PRESENT: normal bowel sounds, soft. ABSENT: tenderness Extremities exam: PRESENT: +1 edema Neurological exam: PRESENT: alert, awake Psychiatric exam: PRESENT: appropriate affect Skin exam: ABSENT: rash Results Laboratory Results: 02/11/20 10:50 02/11/20 10:50 02/11/20 02/11/20 10:50 10:50 WBC 9.4 RBC 3.00 L Hgb 8.0 L Hct 25.2 L MCV 84 MCH 26.6 L MCHC 31.7 L RDW 17.7 H Plt Count 358 Sodium 136.1 L Potassium 4.3 Chloride 101 Carbon Dioxide 29 Anion Gap 6 BUN 12 Creatinine 0.87 Est GFR ( Amer) > 60 Glucose 178 H Calcium 8.9 Magnesium 2.1 02/04/20 09:23 Blood Blood Culture (PCR) - Final Enterococcus Species Staphylococcus Species 02/04/20 09:23 Blood Blood Culture - Final Staphylococcus Epidermidis Enterococcus Faecalis(Group D) 01/25/20 01/26/20 16:00 05:33 Creatine Kinase < 20 L 30 Impressions: Chest/Abdomen CTA 01/22/20 00:00 IMPRESSION: 1. No evidence of pulmonary embolus. 2. Scattered mosaic attenuation throughout the lungs possibly secondary to small airway disease or hypoventilatory change. 3. Trace left pleural effusion. Renal Ultrasound 01/28/20 00:00 IMPRESSION: Avascular approximately 3 cm mass off the inferior pole the left kidney. This most likely represents infectious or inflammatory process. PICC Line Insertion 02/04/20 00:00 IMPRESSION: SUCCESSFUL PLACEMENT OF A 5 FR DUAL LUMEN 44 CM PICC IN THE LEFT BASILIC VEIN. Abdomen/Pelvis CT 02/05/20 00:00 IMPRESSION: 1. Grossly stable appearance of the ill-defined area of hypoattenuation along the inferior left kidney. Again, findings may represent pyelonephritis, solid mass or renal infarct with the former favored. There are additional ill-defined areas of hypoattenuation involving the right renal cortex suggestive of pyelonephritis. Recommend correlation with urinalysis. 2. Stable linear area of hypoattenuation within the spleen, possibly infarct or post infectious/traumatic sequelae. 3. Morbid obesity with skin thickening along the pannus suggestive of panniculitis. 4. At least moderate left-sided pleural effusion, partially evaluated. Associated lower lobe atelectasis. Thoracentesis Ultrasound 02/06/20 00:00 IMPRESSION: SUCCESSFUL THORACENTESIS USING ULTRASOUND GUIDANCE. Chest X-Ray 02/07/20 00:00 IMPRESSION: 1. Persistent bibasilar airspace opacities, more confluent on the left than the right. Left pleural effusion. No definite pneumothorax. Venous Doppler Study 02/09/20 00:00 IMPRESSION: No evidence of DVT or SVT in the visualized veins of the right leg. Limited exam with nonvisualization of the mid/distal superficial femoral and peroneal veins. Assessment and Plan - Diagnosis (1) Staphylococcus epidermidis bacteremia Is this a current diagnosis for this admission?: Yes (2) Bacteremia due to Enterococcus Is this a current diagnosis for this admission?: Yes (3) Hyperglycemia due to type 2 diabetes mellitus Qualifiers: Diabetes mellitus lobsterman insulin use: without lobsterman use Qualified Code(s): E11.65 - Type 2 diabetes mellitus with hyperglycemia Is this a current diagnosis for this admission?: Yes (4) Morbid obesity with BMI of 70 and over, adult Is this a current diagnosis for this admission?: Yes (5) FROYLAN on CPAP Is this a current diagnosis for this admission?: Yes - Plan Summary Summary: Unfortunately her repeat blood culture done on February 04, 2020 showed persistent enterococcal bacteremia. Upon further discussion with infectious disease they recommend that antibiotics be switched to ceftriaxone ampicillin. Patient has a reported penicillin allergy so I performed an amoxicillin challenge which she passed and was able to switch her antibiotics to ceftriaxone and ampicillin. Unfortunately ampicillin is administered every 4 hours hence she would have to stay in the hospital for the entire duration of her treatment which is likely to be 6 weeks. Case has been discussed with CT surgery PA from [facility] (Richard) who said that they are limited by her lack of imaging to confirm endocarditis. Unfortunately, MATTHEW has been attempted twice thus far unsuccessfully due to inability to secure airway by anesthesia due to body habitus. - Time Time Spent with patient: 35 or more minutes Anticipated Discharge Disposition: Home, Self Care Anticipated Discharge Timeframe: 6 weeks
[2020-02-11] MEDS: INSULIN GLARGINE,HUM.REC.ANLOG 1,000 UNIT/10 ML VIAL SUBCUT SCH (21:38)
[2020-02-11] MEDS: PRAZOSIN HCL 1 MG PO SCH (21:40)
[2020-02-12] MEDS: ALBUTEROL SULFATE HFA (90 MCG/PUFF) 8 GM MDI IH SCH ×4 (02:06→17:47)
[2020-02-12] MEDS: AMPICILLIN SODIUM 2 GM in NORMAL SALINE 100 ML IV SCH ×6 (02:08→22:29)
[2020-02-12] MEDS: MORPHINE SULFATE 10 MG/ML INJ IV PRN ×2 (02:51→10:17)
[2020-02-12] MEDS: ONDANSETRON HCL INJ/PF 4 MG/2 ML SDV IV PRN (02:52)
[2020-02-12] MEDS: HYDROXYZINE PAMOATE 50 MG CAPSULE PO SCH ×3 (05:14→22:27)
[2020-02-12] MEDS: PANTOPRAZOLE SODIUM 40 MG TABLET.DR PO SCH (05:14)
[2020-02-12] MEDS: INSULIN LISPRO 100 UNIT/ML 3 ML VIAL SUBCUT SCH ×4 (08:05→22:28)
[2020-02-12] MEDS: CHOLECALCIFEROL (D3) 1,000 UNIT (25 MCG) TABLET PO SCH (10:01)
[2020-02-12] MEDS: CEFTRIAXONE 2 GM/D5W RTU 2 GM/50 ML RTUPB IV SCH ×2 (10:01→22:30)
[2020-02-12] MEDS: FERROUS SULFATE 325 MG TABLET PO SCH (10:01)
[2020-02-12] MEDS: SERTRALINE HCL 50 MG TABLET PO SCH (10:02)
[2020-02-12] MEDS: FLUTICASONE/VILANTEROL 100-25 MCG/DOSE IH SCH (10:02)
[2020-02-12] MEDS: DOCUSATE SODIUM 100 MG CAPSULE PO SCH ×2 (10:02→17:47)
[2020-02-12] MEDS: GABAPENTIN 300 MG CAPSULE PO SCH ×2 (10:02→22:27)
[2020-02-12] MEDS: NORMAL SALINE 10 ML SDV (SCHEDULED) IV SCH ×2 (10:02→22:29)
[2020-02-12] MEDS: ASCORBIC ACID 500 MG TABLET PO SCH ×2 (10:02→17:47)
[2020-02-12] MEDS: HEPARIN SOD (PORCINE) 5,000 UNIT/ML 1 ML VIAL SUBCUT SCH ×2 (10:02→22:28)
[2020-02-12] MEDS: ZINC SULFATE 220 MG CAPSULE PO SCH (10:03)
[2020-02-12] MEDS: CHLORZOXAZONE 500 MG TABLET PO PRN (12:02)
--- NOTE | 2020-02-12 13:03 | PDOC PROGRESS REPORT ---
Subjective Date:: 02/12/20 Subjective:: NAEO. Reason For Visit: HYPOXIA,FEVER Physical Exam Vital Signs: Temp Pulse Resp BP Pulse Ox 97.8 F 104 H 19 130/54 H 98 02/12/20 08:47 02/12/20 08:47 02/12/20 08:47 02/12/20 08:47 02/12/20 08:47 Intake & Output 02/11/20 02/12/20 02/13/20 06:59 06:59 06:59 Intake Total 2492 1715 150 Balance 2492 1715 150 Weight 180.2 kg 180.5 kg General appearance: PRESENT: no acute distress, cooperative, morbidly obese Eye exam: ABSENT: scleral icterus Mouth exam: PRESENT: moist Throat exam: ABSENT: post pharyngeal erythema Neck exam: ABSENT: JVD Respiratory exam: PRESENT: clear to auscultation syl Cardiovascular exam: PRESENT: RRR GI/Abdominal exam: PRESENT: normal bowel sounds, soft. ABSENT: tenderness Extremities exam: PRESENT: +2 edema Neurological exam: PRESENT: alert, awake, oriented to person, oriented to place, oriented to time, oriented to situation Psychiatric exam: PRESENT: appropriate affect Skin exam: ABSENT: jaundice Results Laboratory Results: 02/11/20 10:50 02/11/20 10:50 01/25/20 01/26/20 16:00 05:33 Creatine Kinase < 20 L 30 Impressions: Chest/Abdomen CTA 01/22/20 00:00 IMPRESSION: 1. No evidence of pulmonary embolus. 2. Scattered mosaic attenuation throughout the lungs possibly secondary to small airway disease or hypoventilatory change. 3. Trace left pleural effusion. Renal Ultrasound 01/28/20 00:00 IMPRESSION: Avascular approximately 3 cm mass off the inferior pole the left kidney. This most likely represents infectious or inflammatory process. PICC Line Insertion 02/04/20 00:00 IMPRESSION: SUCCESSFUL PLACEMENT OF A 5 FR DUAL LUMEN 44 CM PICC IN THE LEFT BASILIC VEIN. Abdomen/Pelvis CT 02/05/20 00:00 IMPRESSION: 1. Grossly stable appearance of the ill-defined area of hypoattenuation along the inferior left kidney. Again, findings may represent pyelonephritis, solid mass or renal infarct with the former favored. There are additional ill-defined areas of hypoattenuation involving the right renal cortex suggestive of pyelonephritis. Recommend correlation with urinalysis. 2. Stable linear area of hypoattenuation within the spleen, possibly infarct or post infectious/traumatic sequelae. 3. Morbid obesity with skin thickening along the pannus suggestive of panniculitis. 4. At least moderate left-sided pleural effusion, partially evaluated. Associated lower lobe atelectasis. Thoracentesis Ultrasound 02/06/20 00:00 IMPRESSION: SUCCESSFUL THORACENTESIS USING ULTRASOUND GUIDANCE. Chest X-Ray 02/07/20 00:00 IMPRESSION: 1. Persistent bibasilar airspace opacities, more confluent on the left than the right. Left pleural effusion. No definite pneumothorax. Venous Doppler Study 02/09/20 00:00 IMPRESSION: No evidence of DVT or SVT in the visualized veins of the right leg. Limited exam with nonvisualization of the mid/distal superficial femoral and peroneal veins. Assessment and Plan - Diagnosis (1) Staphylococcus epidermidis bacteremia Is this a current diagnosis for this admission?: Yes (2) Bacteremia due to Enterococcus Is this a current diagnosis for this admission?: Yes (3) Hyperglycemia due to type 2 diabetes mellitus Qualifiers: Diabetes mellitus care home insulin use: without care home use Qualified Code(s): E11.65 - Type 2 diabetes mellitus with hyperglycemia Is this a current diagnosis for this admission?: Yes (4) Morbid obesity with BMI of 70 and over, adult Is this a current diagnosis for this admission?: Yes (5) FROYLAN on CPAP Is this a current diagnosis for this admission?: Yes - Plan Summary Summary: SARAHI ST is a 34 year old female with history of morbid obesity (BMI >70), FROYLAN, asthma, diabetes mellitus type 2, hypertension, anxiety and dep ression, who presented to the hospital with diffuse abdominal pain. In the ER, patient received work-up with CT abdomen pelvis without contrast. This incidentally picked up groundglass opacities in patient's lower lungs. Patient also noted to have hypoxia at 90% on room air and leukocytosis with WBC of 19K. BCx were performed and she was admitted for further work up. She was found to have high-grade Enterococcus faecalis bacteremia which was persistent at 72 hours and was initially looking like it was clearing on 01/26, but her repeat blood cultures drawn 02/03 again demonstrated this organism. She had staph epidermidis in 1 set on 01/26. I am waiting to see the blood culture report from 02/03. During her initial persistent bacteremia she was only on linezolid. ID was consulted and she was changed to daptomycin on 01/24. She had a TTE which demonstrated increased aortic valve velocity and moderate AR, but could not rule out a vegetation. Due to her morbid obesity a MATTHEW was technically difficult and was unable to be performed (attempted but anesthesia was unable to secure her airway). In regards to her Enterococcus bacteremia she had a CT scan initially without contrast and then with contrast that essentially just demonstrated some stranding concerning for panniculitis, splenic infarcts and possible left renal mass. Renal ultrasound showed this is likely an abscess rather than a solid tumor. Called [facility] and spoke with the urologist on staff there and then he called there interventional radiologist; had a lengthy discussion about the patient's imaging studies and how this should be addressed. They believe the patient's renal lesion is likely a phlegmon which may turn into an abscess in the near future. They recommended against attempting to drain this lesion until it becomes an actual liquid abscess. They also noted a lesion in the patient's spleen consistent with septic emboli, similar to the kidney lesion. She likely has showered her organ systems with septic emboli likely from a central source, suspected to be AV endocarditis. MATTHEW was not able to be done as mentioned previously. Repeat blood cultures are pending, but if these remain negative, we may be able to transfer to a facility with CT surgery where they could potentially confirm a valvular vegetation on MATTHEW. High-grade persistent Enterococcus faecalis bacteremia with splenic and renal infarcts, likely AV endocarditis: source not clear but suspect GI translocation versus skin/panniculitis with endovascular seeding. She has repeatedly denied any h/o of IVDU. She essentially meets criteria for the clinical diagnosis of endocarditis in this setting. Suspect she has aortic valve endocarditis based on her TTE. Unfortunately her repeat blood culture done on 02/03 showed persistent enterococcal bacteremia. Given the recurrent nature of her bacteremia as well as her moderate AR, CT surgery was consulted. Case has been discussed with CT surgery from [facility] who said that they are limited by her lack of imaging to confirm endocarditis and they would not be attempting any procedures at this time. - ID consulted - continue current antibiotics (ceftriaxone and ampicillin); she will need 6 weeks of antibiotics either from blood culture clearance or date of surgery if valve tissue cultures are positive - repeat BCx on 02/09 and 02/10 pending Coagulase-negative staph isolated from multiple blood cultures: suspect contamination in a patient with morbid obesity and difficult phlebotomy. If we continue to get CoNS from future BCx, will need to remove PICC line. Elevated D-dimer: likely due to high inflammatory state caused by morbid obesity and infection - BLE duplex US this admission was negative for DVT - CTA chest this admission negative for PE Difficult Airway: due to morbid obesity, a MATTHEW was technically difficult and was unable to be performed (attempted but anesthesia was unable to secure her airway). A second attempt at a MATTHEW was made on 02/02 but anesthesia declined to attempt this again as they stated patient's airway is extremely tenuous and they were barely able to safely intubate the patient previously. Cardiology, Dr. Kimbrough, was also concerned after speaking with them that he would likely not have success on the second attempt either. 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 It would be helpful if the patient lost a significant amount of weight over the next 6 weeks as this may assist with the difficult anatomy of her neck. FROYLAN - continue home CPAP when sleeping Anemia of Chronic Disease - denies any melena, hematemesis - s/p 1 unit PRBC on 02/07 with appropriate response Morbid Obesity (BMI >70) - discussed calorie restriction and weight loss at length - she would benefit from gastric bypass after resolution of this episode - Time Time Spent with patient: 35 or more minutes Anticipated Discharge Disposition: Home, Self Care Anticipated Discharge Timeframe: antibiotic
[2020-02-12] MEDS: HYDROCODONE/ACETAMINOPHEN 10-325 MG TABLET PO PRN ×2 (15:02→22:27)
[2020-02-12] MEDS: ALBUTEROL SULFATE 0.083% NEB 2.5 MG/3 ML AMPUL NEB PRN (15:54)
[2020-02-12] MEDS: PRAZOSIN HCL 1 MG PO SCH (22:27)
[2020-02-12] MEDS: INSULIN GLARGINE,HUM.REC.ANLOG 1,000 UNIT/10 ML VIAL SUBCUT SCH (22:29)
[2020-02-13] MEDS: MORPHINE SULFATE 10 MG/ML INJ IV PRN ×2 (00:25→11:29)
[2020-02-13] MEDS: ALBUTEROL SULFATE HFA (90 MCG/PUFF) 8 GM MDI IH SCH ×5 (00:31→23:17)
[2020-02-13] MEDS: AMPICILLIN SODIUM 2 GM in NORMAL SALINE 100 ML IV SCH ×6 (02:58→17:26)
[2020-02-13] MEDS: PANTOPRAZOLE SODIUM 40 MG TABLET.DR PO SCH (05:36)
[2020-02-13] MEDS: HYDROXYZINE PAMOATE 50 MG CAPSULE PO SCH ×3 (05:36→21:24)
[2020-02-13] MEDS: HYDROCODONE/ACETAMINOPHEN 10-325 MG TABLET PO PRN (08:20)
[2020-02-13 09:38] LABS: HEMATOCRIT 23.9 % (36.0-47.0); MEAN CORPUSCULAR HEMOGLOBIN 26.6 pg (27.0-33.4); MEAN CORPUSCULAR HGB CONC 31.6 g/dL (32.0-36.0); MEAN CORPUSCULAR VOLUME 84 fl (80-97); PLATELET COUNT 330 10^3/uL (150-450); RED BLOOD COUNT 2.84 10^6/uL (3.72-5.28); RED CELL DISTRIBUTION WIDTH 18.1 % (11.5-14.0); WHITE BLOOD COUNT 9.4 10^3/uL (4.0-10.5)
[2020-02-13 09:46] LABS: ALBUMIN 3.1 g/dL (3.5-5.0); ALKALINE PHOSPHATASE 197 U/L (38-126); ANION GAP 6 (5-19); ASPARTATE AMINO TRANSFERASE 20 U/L (14-36); BILIRUBIN,DIRECT 0.3 mg/dL (0.0-0.4); BILIRUBIN,TOTAL 0.5 mg/dL (0.2-1.3); BLOOD UREA NITROGEN 11 mg/dL (7-20); CALCIUM 9.3 mg/dL (8.4-10.2); CARBON DIOXIDE 32 mmol/L (22-30); CHLORIDE 101 mmol/L (98-107); GLUCOSE 146 mg/dL (75-110); POTASSIUM 4.5 mmol/L (3.6-5.0)
[2020-02-13 10:08] LABS: HEMOGLOBIN 7.6 g/dL (12.0-15.5)
[2020-02-13] MEDS: INSULIN LISPRO 100 UNIT/ML 3 ML VIAL SUBCUT SCH ×4 (10:16→21:25)
[2020-02-13] MEDS: SERTRALINE HCL 50 MG TABLET PO SCH (11:24)
[2020-02-13] MEDS: FLUTICASONE/VILANTEROL 100-25 MCG/DOSE IH SCH (11:24)
[2020-02-13] MEDS: GABAPENTIN 300 MG CAPSULE PO SCH ×2 (11:25→17:22)
[2020-02-13] MEDS: CHOLECALCIFEROL (D3) 1,000 UNIT (25 MCG) TABLET PO SCH (11:25)
[2020-02-13] MEDS: FERROUS SULFATE 325 MG TABLET PO SCH (11:25)
[2020-02-13] MEDS: ASCORBIC ACID 500 MG TABLET PO SCH ×2 (11:25→17:22)
[2020-02-13] MEDS: CEFTRIAXONE 2 GM/D5W RTU 2 GM/50 ML RTUPB IV SCH (11:28)
[2020-02-13] MEDS: HEPARIN SOD (PORCINE) 5,000 UNIT/ML 1 ML VIAL SUBCUT SCH (11:29)
[2020-02-13] MEDS: NORMAL SALINE 10 ML SDV (SCHEDULED) IV SCH ×2 (11:30→21:26)
[2020-02-13] MEDS: ZINC SULFATE 220 MG CAPSULE PO SCH (11:30)
[2020-02-13] MEDS: DOCUSATE SODIUM 100 MG CAPSULE PO SCH (11:31)
[2020-02-13] MEDS ORDERED: MORPHINE SULFATE 10 MG/ML INJ IV PRN (15:23)
--- NOTE | 2020-02-13 16:04 | PDOC PROGRESS REPORT ---
Subjective Date:: 02/13/20 Subjective:: NAEO. Today, she has no particular concerns. She tells me that she has severe CORTEZ but does not feel SOB at rest. Denies CP. Endorses RUQ abdominal pain, unchanged. No fevers/chills. Reason For Visit: HYPOXIA,FEVER Physical Exam Vital Signs: Temp Pulse Resp BP Pulse Ox 97.4 F 102 H 18 124/48 L 100 02/13/20 12:19 02/13/20 12:19 02/13/20 12:19 02/13/20 12:19 02/13/20 12:19 Intake & Output 02/12/20 02/13/20 02/14/20 06:59 06:59 06:59 Intake Total 1715 1870 220 Balance 1715 1870 220 Weight 180.5 kg 180.5 kg General appearance: PRESENT: no acute distress, cooperative, morbidly obese Eye exam: ABSENT: conjunctival injection, scleral icterus Mouth exam: PRESENT: moist Throat exam: ABSENT: post pharyngeal erythema Neck exam: ABSENT: JVD Respiratory exam: PRESENT: clear to auscultation syl, unlabored. ABSENT: wheezes Cardiovascular exam: PRESENT: RRR GI/Abdominal exam: PRESENT: normal bowel sounds, soft. ABSENT: distended, firm, guarding, mass, Wood's sign, rebound, rigid, tenderness Extremities exam: PRESENT: +2 edema Neurological exam: PRESENT: alert, awake, oriented to person, oriented to place, oriented to time, oriented to situation Psychiatric exam: PRESENT: appropriate affect Skin exam: ABSENT: jaundice, rash Results Laboratory Results: 02/13/20 09:00 02/13/20 09:00 02/13/20 02/13/20 09:00 09:00 WBC 9.4 RBC 2.84 L Hgb 7.6 L Hct 23.9 L MCV 84 MCH 26.6 L MCHC 31.6 L RDW 18.1 H Plt Count 330 Sodium 138.5 Potassium 4.5 Chloride 101 Carbon Dioxide 32 H Anion Gap 6 BUN 11 Creatinine 0.85 Est GFR ( Amer) > 60 Glucose 146 H Calcium 9.3 Magnesium 2.1 Total Bilirubin 0.5 AST 20 Alkaline Phosphatase 197 H Total Protein 7.0 Albumin 3.1 L 02/10/20 14:48 Blood Blood Culture (PCR) - Final Enterococcus Species 01/25/20 01/26/20 16:00 05:33 Creatine Kinase < 20 L 30 Impressions: Chest/Abdomen CTA 01/22/20 00:00 IMPRESSION: 1. No evidence of pulmonary embolus. 2. Scattered mosaic attenuation throughout the lungs possibly secondary to small airway disease or hypoventilatory change. 3. Trace left pleural effusion. Renal Ultrasound 01/28/20 00:00 IMPRESSION: Avascular approximately 3 cm mass off the inferior pole the left kidney. This most likely represents infectious or inflammatory process. PICC Line Insertion 02/04/20 00:00 IMPRESSION: SUCCESSFUL PLACEMENT OF A 5 FR DUAL LUMEN 44 CM PICC IN THE LEFT BASILIC VEIN. Abdomen/Pelvis CT 02/05/20 00:00 IMPRESSION: 1. Grossly stable appearance of the ill-defined area of hypoattenuation along the inferior left kidney. Again, findings may represent pyelonephritis, solid mass or renal infarct with the former favored. There are additional ill-defined areas of hypoattenuation involving the right renal cortex suggestive of pyelonephritis. Recommend correlation with urinalysis. 2. Stable linear area of hypoattenuation within the spleen, possibly infarct or post infectious/traumatic sequelae. 3. Morbid obesity with skin thickening along the pannus suggestive of panniculitis. 4. At least moderate left-sided pleural effusion, partially evaluated. Associated lower lobe atelectasis. Thoracentesis Ultrasound 02/06/20 00:00 IMPRESSION: SUCCESSFUL THORACENTESIS USING ULTRASOUND GUIDANCE. Chest X-Ray 02/07/20 00:00 IMPRESSION: 1. Persistent bibasilar airspace opacities, more confluent on the left than the right. Left pleural effusion. No definite pneumothorax. Venous Doppler Study 02/09/20 00:00 IMPRESSION: No evidence of DVT or SVT in the visualized veins of the right leg. Limited exam with nonvisualization of the mid/distal superficial femoral and peroneal veins. Assessment and Plan - Diagnosis (1) Staphylococcus epidermidis bacteremia Is this a current diagnosis for this admission?: Yes (2) Bacteremia due to Enterococcus Is this a current diagnosis for this admission?: Yes (3) Hyperglycemia due to type 2 diabetes mellitus Qualifiers: Diabetes mellitus jail insulin use: without agricultural appraiser use Qualified Code(s): E11.65 - Type 2 diabetes mellitus with hyperglycemia Is this a current diagnosis for this admission?: Yes (4) Morbid obesity with BMI of 70 and over, adult Is this a current diagnosis for this admission?: Yes (5) FROYLAN on CPAP Is this a current diagnosis for this admission?: Yes - Plan Summary Summary: Ms. SARAHI ST is a 34 year old female with history of morbid obesity (BMI >70), FROYLAN, asthma, diabetes mellitus type 2, hypertension, anxiety and depression who presented on 01/21/2020 with diffuse abdominal pain. In the ER, patient received work-up with CT abdomen pelvis without contrast. This incidentally picked up groundglass opacities in patient's lower lungs. Patient also noted to have hypoxia at 90% on room air and leukocytosis with WBC of 19K. BCx were performed and she was admitted for further work up. She was found to have high-grade Enterococcus faecalis bacteremia which was persistent at 72 hours and was initially looking like it was clearing on 01/26, but her repeat blood cultures drawn 02/03 again demonstrated this organism. She also had staph epi in 1 set on 01/26. During her initial persistent bacteremia she was only on linezolid. ID was consulted and she was changed to daptomycin on 01/24. She had a TTE which demonstrated increased aortic valve velocity and moderate AR, but could not rule out a vegetation. Due to her morbid obesity, a MATTHEW was technically difficult and was unable to be performed (attempted but anesthesia was unable to secure her airway). In regards to her Enterococcus bacteremia, she had a CT scan initially without contrast and then with contrast that essentially just demonstrated some stranding concerning for panniculitis, splenic infarcts and possible left renal mass. Renal ultrasound showed this is likely an abscess rather than a solid tumor. Called [facility] and spoke with the urologist and interventional radiologist; had a lengthy discussion about the patient's imaging studies and how this should be addressed. They believe the patient's renal lesion is likely a phlegmon which may turn into an abscess in the near future. They recommended against attempting to drain this lesion until it becomes an actual liquid abscess. They also noted a lesion in the patient's spleen consistent with septic emboli, similar to the kidney lesion. She likely has showered her organ systems with septic emboli likely from a central source, suspected to be AV endocarditis. MATHTEW was not able to be done as mentioned previously. Repeat blood cultures are pending, but if these remain negative, we may be able to transfer to a facility with CT surgery where they could potentially confirm a valvular vegetation on MATTHEW. High-grade persistent Enterococcus faecalis bacteremia with splenic and renal infarcts, likely AV endocarditis: source not clear but suspect GI translocation versus skin/panniculitis with endovascular seeding. She has repeatedly denied a ny h/o of IVDU. She essentially meets criteria for the clinical diagnosis of endocarditis. Suspect she has aortic valve endocarditis based on her TTE. Unfortunately her repeat blood culture done on 02/09 shows persistent enterococcal bacteremia. Given the recurrent nature of her bacteremia as well as her moderate AR, CT surgery was consulted. Case has been discussed with CT surgery from [facility] who said that they are limited by her lack of imaging to confirm endocarditis and they would not be attempting any procedures at this time. - ID re-consulted 02/12 given newly positive BCx from 02/09 despite change in antibiotics - continue current antibiotics (ceftriaxone and ampicillin) for now - BCx on 02/10 with NGTD - repeat BCx ordered today - CT C/A/P re-ordered today - we may need to consider a line holiday, will discuss with ID Coagulase-negative staph isolated from multiple blood cultures: suspect contamination in a patient with morbid obesity and difficult phlebotomy. If we continue to get CoNS from future BCx, will need to remove PICC line. - CT C/A/P re-ordered today - we may need to consider a line holiday, will discuss with ID Elevated D-dimer: likely due to high inflammatory state caused by morbid obesity and infection - BLE duplex US this admission was negative for DVT - CTA chest this admission negative for PE Difficult Airway: due to morbid obesity, a MATTHEW was technically difficult and was unable to be performed (attempted but anesthesia was unable to secure her airway). A second attempt at a MATTHEW was planned on 02/02 but anesthesia declined to attempt this again as they stated patient's airway is extremely tenuous and they were barely able to safely intubate the patient previously. Cardiology, Dr. Kimbrough, was also concerned after speaking with them that he would likely not have success on the second attempt either. 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 It would be helpful if the patient lost a significant amount of weight over the next 6 weeks as this may assist with the difficult anatomy of her neck. - will discuss again with cardiology given persistent bacteremia and inability to transfer to another site without MATTHEW, we may need to re-attempt MATTHEW here at [place] again this hospitalization FROYLAN - continue home CPAP when sleeping Anemia of Chronic Disease - denies any melena, hematemesis - s/p 1 unit PRBC on 02/07 with appropriate response Morbid Obesity (BMI >70) - discussed calorie restriction and weight loss at length - she would benefit from gastric bypass after resolution of this episode DVT ppx: Lovenox - Time Time Spent with patient: 35 or more minutes Anticipated Discharge Disposition: Home, Self Care Anticipated Discharge Timeframe: unknown
--- NOTE | 2020-02-13 17:19 | RADIOLOGY REPORT (SQ) ---
EXAM DESCRIPTION: CT ABD/PELVIS WITH IV ONLY; CT CHEST WITH IMAGES COMPLETED DATE/TIME: 02/13/2020 1:48 pm REASON FOR STUDY: RUQ pain, continuous bacteremia; worsening SOB, continuous bacteremia CONTRAST TYPE AND DOSE: contrast/concentration: Isovue 350.00 mmol/ml; Total Contrast Delivered: 100 .0 ml; Total Saline Delivered: 44.6 ml RENAL FUNCTION: Creatinine 0.85 COMPARISON: Single-view chest 02/07/[address] chest 01/22/2020 TECHNIQUE: CT scan of the chest performed using helical scanning technique with dynamic intravenous contrast injection. Images reviewed with lung, soft tissue and bone windows. Reconstructed coronal a nd sagittal MPR images reviewed. All images stored on PACS. All CT scanners at this facility use dose modulation, iterative reconstruction, and/or weight based d osing when appropriate to reduce radiation dose to as low as reasonably achievable (ALARA). [facility]: Dose Right [facility]: CareDose [facility]: Dose Right [facility]: Teradose 4D [facility]: [employer] RADIATION DOSE: CT Rad equipment meets quality standard of care and radiation dose reduction techniq ues were employed. CTDIvol: 30.8 - 39.0 mGy. DLP: 4920 mGy-cm. . LIMITATIONS: Patient body habitus. Motion artifact. FINDINGS: AXILLAE: No adenopathy. CHEST WALL: No masses. No subcutaneous air. LUNGS: Consolidation in the left lung likely due to compressive atelectasis from adjacent pleural eff usion. There are some scattered nodular opacities in the right lung which are nonspecific in etiolog y. Findings could be due to infection. There may be component of mild pulmonary edema with some sca ttered septal thickening. PLEURA: Large left pleural effusion is increased in size. Small right pleural effusion. No pneumoth orax. THYROID: No masses or significant asymmetry. HILAR AND MEDIASTINAL STRUCTURES: Mildly enlarged lymph nodes are presumably reactive. AORTA AND GREAT VESSELS: No aneurysm. No dissection. PULMONARY ARTERIES: No identified pulmonary emboli. Study not optimized for the pulmonary arteries. HEART: No pericardial effusion. HARDWARE AND LIFELINES: Left central venous catheter tip in the right atrium. BONES: No significant finding. OTHER: No other significant finding. IMPRESSION: 1. Large left pleural effusion with adjacent consolidation likely representing compress marino atelectasis. Small right pleural effusion. 2. Scattered nodular opacities in the right lung are nonspecific in etiology and could be infectious . There is some interstitial opacities/septal thickening which could reflect pulmonary edema. 3. Exam is degraded due to patient body habitus. COMPARISON: 02/05/2020 RADIATION DOSE: CT Rad equipment meets quality standard of care and radiation dose reduction techniq ues were employed. CTDIvol: 30.8 - 39.0 mGy. DLP: 4920 mGy-cm. mGy. TECHNIQUE: CT scan of the abdomen and pelvis performed with intravenous and oral contrast using zee silvia scanning technique with dynamic intravenous contrast injection. Images reviewed with lung, soft tissue and bone windows. Reconstructed coronal and sagittal MPR images reviewed. Delayed images for evaluation of the urinary system also acquired and evaluated. All images stored on PACS. All CT scanners at this facility use dose modulation, iterative reconstruction, and/or weight based d osing when appropriate to reduce radiation dose to as low as reasonably achievable (ALARA). [facility]: Dose Right [facility]: [employer] [facility]: Dose Right [facility]: Teradose 4D [facility]: [employer] 4U FINDINGS: LIVER: Mildly enlarged. No discrete liver lesion. There may be some mild hepatic steatos is. SPLEEN: Borderline in size. Focal hypoattenuation at the inferior spleen is again demonstrated. Thi s is slightly decreased in size from prior examination. Morphology on the coronal images on the prio r examination raises the possibility of a subcapsular collection. PANCREAS: No masses. No significant calcifications. No adjacent inflammation or peripancreatic flui d collections. Pancreatic duct not dilated. GALLBLADDER: No identified stones by CT criteria. No inflammatory changes to suggest cholecystitis. ADRENAL GLANDS: No significant masses or asymmetry. RIGHT KIDNEY AND URETER: No solid masses. No significant calcifications. No hydronephrosis or hyd roureter. LEFT KIDNEY AND URETER: Ill defined region of hypoenhancement in the medial lower pole right kidney i s again demonstrated, similar in morphology to prior examination. This may be minimally decreased in size. No significant calcifications. No hydronephrosis or hydroureter. AORTA AND VESSELS: No aneurysm. No dissection. Renal arteries, SMA, celiac without stenosis. RETROPERITONEUM: No retroperitoneal adenopathy, hemorrhage or masses. LARGE AND SMALL BOWEL: No dilatation. No masses. No wall thickening. Moderate stool in the colon. APPENDIX: Probable partial visualization of a normal appendix. ABDOMINAL WALL: Incompletely visualized due to body habitus. Partially visualized diffuse subcutaneo us edema. Stable prominent left inguinal lymph node. PERITONEAL CAVITY: No free air. No free fluid. No peritoneal implants or masses. PELVIS: No mass or free fluid. Normal bladder. BONES: No significant or acute findings. OTHER: No other significant finding. IMPRESSION: 1. Degraded examination due to patient body habitus. 2. Focal region of hypoattenuation in the inferomedial left kidney is similar in morphology, though may be slightly decreased in size from prior. 3. Slight decrease in size of region of hypoattenuation along the inferolateral spleen, possibly rep resenting a subcapsular fluid collection. TECHNICAL DOCUMENTATION: JOB ID: [id number] Quality ID # [id number]: Final reports with documentation of one or more dose reduction techniques (e.g., Au tomated exposure control, adjustment of the mA and/or kV according to patient size, use of iterative reconstruction technique) 2010 [employer]- All Rights Reserved Reading location - IP/workstation name: [email or web address]
[2020-02-13] MEDS: ACETAMINOPHEN 325 MG TABLET PO SCH (17:22)
[2020-02-13] MEDS: OXYCODONE HCL IR 5 MG TABLET PO PRN (17:24)
--- NOTE | 2020-02-13 19:05 | Progress Note ---
Provider Note Provider Note: [facility] Telephone Advice Consultation Chart reviewed, patient not seen. Update: Patient with morbid obesity evaluated by ID on 01/28 and 02/04 due to Enterococcus faecalis bacteremia with high suspicion for AoV endocarditis with evidence of septic emboli to spleen and left kidney by CT scan. Source still not known if panniculitis, GI or urinary tract. Blood cultures positive from 01/20, 01/21, 01/23 and 01/26 (she was on linezolid at that time), then 02/03 while on daptomycin and 02/09 while on ceftriaxone and ampicillin (tolerated amoxicillin oral challenge, combination started on 02/06). Unable to do MATTHEW properly, but no vegetations seen. She had a PICC line placed on 02/03 while bacteremic, this was removed on 02/06. She also had a pleural effusion that was drained by thoracentesis on 02/05, cultures negative. She is afebrile but persistently tachycardic. Blood cultures from 02/10 and 02/12 pending. HPI This is a 34-year-old woman with morbid obesity with BMI of 72, DM, FROYLAN who was admitted due to abdominal pain and abnormal vaginal bleeding. The abdominal pain was cramping pain associated with constipation for which she had to take a laxatives. In terms of vaginal bleeding, she has this periodically as her menstrual periods are irregular. She denied any respiratory symptoms or vo miting. On admission, her WBC was elevated 18k, CXR showed bilateral opacities atelectasis vs infection. She was found with buttocks skin ulcerations, but unclear if they look infected. CT chest suggestive of small airway disease. CT scan of abdomen and pelvis demonstrating panniculitis. Blood culture on 01/20 positive for Enterococcus faecalis, 01/21 and 01/23. TTE negative for endocarditis although suspicious, but limited due to body habitus. She was started on linezolid for Enterococcal bacteremia due to penicillin allergy. She is afebrile now, HD stable, leukocytosis improved. ID consulted for recommendations. Allergies: amoxicillin [Amoxicillin] Allergy (Verified 01/21/20 21:01) benzonatate [From Tessalon Perles] Allergy (Verified 01/21/20 21:01 fluticasone [From Advair Diskus] Allergy (Verified 01/21/20 21:01) iloperidone [From Fanapt] Allergy (Verified 01/21/20 21:01) Penicillins Allergy (Verified 01/21/20 21:01) salmeterol [From Advair Diskus] Allergy (Verified 01/21/20 21:01) Vital Signs: Temp Pulse Resp BP Pulse Ox 97.7 F 109 H 19 134/48 H 93 02/13/20 15:48 02/13/20 15:48 02/13/20 15:48 02/13/20 15:48 02/13/20 15:48 Intake & Output 02/12/20 02/13/20 02/14/20 06:59 06:59 06:59 Intake Total 1715 1870 932 Balance 1715 1870 932 Weight 180.5 kg 180.5 kg Weight/Height Weight 180.5 kg Height 5 ft 2 in Laboratories: 02/13/20 09:00 02/13/20 09:00 MCV 84 fl (80-97) 02/13/20 09:00 MCH 26.6 pg (27.0-33.4) L 02/13/20 09:00 MCHC 31.6 g/dL (32.0-36.0) L 02/13/20 09:00 RDW 18.1 % (11.5-14.0) H 02/13/20 09:00 Seg Neutrophils % 75.5 % (42-78) 02/10/20 08:30 Chloride 101 mmol/L (98-107) 02/13/20 09:00 Carbon Dioxide 32 mmol/L (22-30) H 02/13/20 09:00 Anion Gap 6 (5-19) 02/13/20 09:00 Est GFR ( Amer) > 60 (>60) 02/13/20 09:00 Glucose 146 mg/dL (75-110) H 02/13/20 09:00 Lactic Acid 2.1 mmol/L (0.7-2.1) 01/22/20 13:43 Calcium 9.3 mg/dL (8.4-10.2) 02/13/20 09:00 Magnesium 2.1 mg/dL (1.6-2.3) 02/13/20 09:00 Ferritin 119.00 ng/mL (6.2-137.0) 01/21/20 22:05 Total Bilirubin 0.5 mg/dL (0.2-1.3) 02/13/20 09:00 AST 20 U/L (14-36) 02/13/20 09:00 Alkaline Phosphatase 197 U/L (38-126) H 02/13/20 09:00 Total Protein 7.0 g/dL (6.3-8.2) 02/13/20 09:00 Albumin 3.1 g/dL (3.5-5.0) L 02/13/20 09:00 Lipase 64.6 U/L (23-300) 01/21/20 22:05 Urine Color YELLOW 01/22/20 19:17 Urine Appearance SLIGHTLY-CLOUDY 01/22/20 19:17 Urine pH 6.0 (5.0-9.0) 01/22/20 19:17 Ur Specific [place] 1.042 01/22/20 19:17 Urine Protein 100 mg/dL (NEGATIVE) H 01/22/20 19:17 Urine Glucose (UA) >=500 mg/dL (NEGATIVE) H 01/22/20 19:17 Urine Ketones NEGATIVE mg/dL (NEGATIVE) 01/22/20 19:17 Urine Blood LARGE (NEGATIVE) H 01/22/20 19:17 Urine RBC (Auto) >182 /HPF 01/22/20 19:17 Fluid Glucose 186 mg/dL (.) 02/06/20 15:31 Fluid Total Protein 4.3 g/dL (.) 02/06/20 15:31 Fluid Albumin 2.1 g/dL (Not Estab.) 02/06/20 15:31 Fluid LDH 283 IU/L (.) 02/06/20 15:31 Blood Type O POSITIVE 02/08/20 06:40 Antibody Screen NEGATIVE 02/08/20 06:40 02/10/20 14:48 Blood Blood Culture (PCR) - Final Enterococcus Species 01/25/20 01/26/20 16:00 05:33 Creatine Kinase < 20 L 30 Microbiology: Blood cultures: 01/20 Enterococcus faecalis 01/21 Enterococcus faecalis, Staphylococcus spp 01/23 Enterococcus faecalis 01/26 Staphylococcus epidermidis 1/2 01/28 Staphylococcus epidermidis 1/2 02/03 Staphylococcus epidermidis 2/2, Enterococcus faecalis 1/2 02/09 Enterococcus faecalis 02/10 In process 02/12 In process Radiology: Chest/Abdomen CTA 01/22/20 00:00 IMPRESSION: 1. No evidence of pulmonary embolus. 2. Scattered mosaic attenuation throughout the lungs possibly secondary to small airway disease or hypoventilatory change. 3. Trace left pleural effusion. Renal Ultrasound 01/28/20 00:00 IMPRESSION: Avascular approximately 3 cm mass off the inferior pole the left kidney. This most likely represents infectious or inflammatory process. PICC Line Insertion 02/04/20 00:00 IMPRESSION: SUCCESSFUL PLACEMENT OF A 5 FR DUAL LUMEN 44 CM PICC IN THE LEFT BASILIC VEIN. Thoracentesis Ultrasound 02/06/20 00:00 IMPRESSION: SUCCESSFUL THORACENTESIS USING ULTRASOUND GUIDANCE. Chest X-Ray 02/07/20 00:00 IMPRESSION: 1. Persistent bibasilar airspace opacities, more confluent on the left than the right. Left pleural effusion. No definite pneumothorax. Venous Doppler Study 02/09/20 00:00 IMPRESSION: No evidence of DVT or SVT in the visualized veins of the right leg. Limited exam with nonvisualization of the mid/distal superficial femoral and peroneal veins. Abdomen/Pelvis CT 02/13/20 00:00 IMPRESSION: 1. Large left pleural effusion with adjacent consolidation likely representing compressive atelectasis. Small right pleural effusion. 2. Scattered nodular opacities in the right lung are nonspecific in etiology and could be infectious. There is some interstitial opacities/septal thickening which could reflect pulmonary edema. 3. Exam is degraded due to patient body habitus. IMPRESSION: 1. Degraded examination due to patient body habitus. 2. Focal region of hypoattenuation in the inferomedial left kidney is similar in morphology, though may be slightly decreased in size from prior. 3. Slight decrease in size of region of hypoattenuation along the inferolateral spleen, possibly representing a subcapsular fluid collection. Chest CT 02/13/20 00:00 IMPRESSION: 1. Large left pleural effusion with adjacent consolidation likely representing compressive atelectasis. Small right pleural effusion. 2. Scattered nodular opacities in the right lung are nonspecific in etiology and could be infectious. There is some interstitial opacities/septal thickening which could reflect pulmonary edema. 3. Exam is degraded due to patient body habitus. IMPRESSION: 1. Degraded examination due to patient body habitus. 2. Focal region of hypoattenuation in the inferomedial left kidney is similar in morphology, though may be slightly decreased in size from prior. 3. Slight decrease in size of region of hypoattenuation along the inferolateral spleen, possibly representing a subcapsular fluid collection. 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 She has been bacteremic since 01/26. The fact that she has spleen and kidney infarcts put her at risk of developing abscesses like splenic abscess or perinephric abscess. New CT scan didn't show abscess. Perivalvular abscess as well in the differential. If blood cultures remain positive, we should be looking at a potential abscess that would require source control. Duration of therapy would be 6 weeks from negative blood cultures. If surgery is done at some point, duration will depend on tissue cultures (if positive, should start counting from the day of the surgery, if negative, should count from negative blood cultures). Continue ceftriaxone and ampicillin and follow blood cultures results. She might need another thoracentesis to drain the pleural effusion. Cathleen Maynard MD [facility] [phone]
[2020-02-13] MEDS: INSULIN GLARGINE,HUM.REC.ANLOG 1,000 UNIT/10 ML VIAL SUBCUT SCH (21:25)
[2020-02-13] MEDS: PRAZOSIN HCL 1 MG PO SCH (21:25)
[2020-02-14 05:08] LABS: HEMATOCRIT 23.1 % (36.0-47.0); MEAN CORPUSCULAR HEMOGLOBIN 26.3 pg (27.0-33.4); MEAN CORPUSCULAR HGB CONC 31.1 g/dL (32.0-36.0); MEAN CORPUSCULAR VOLUME 85 fl (80-97); PLATELET COUNT 349 10^3/uL (150-450); RED BLOOD COUNT 2.73 10^6/uL (3.72-5.28); RED CELL DISTRIBUTION WIDTH 17.8 % (11.5-14.0); WHITE BLOOD COUNT 9.7 10^3/uL (4.0-10.5)
[2020-02-14 05:09] LABS: HEMOGLOBIN 7.2 g/dL (12.0-15.5)
[2020-02-14] MEDS: OXYCODONE HCL IR 5 MG TABLET PO PRN ×4 (05:18→22:46)
[2020-02-14] MEDS: HYDROXYZINE PAMOATE 50 MG CAPSULE PO SCH ×3 (05:18→22:06)
[2020-02-14] MEDS: PANTOPRAZOLE SODIUM 40 MG TABLET.DR PO SCH (05:18)
[2020-02-14] MEDS: ALBUTEROL SULFATE HFA (90 MCG/PUFF) 8 GM MDI IH SCH ×4 (05:19→23:31)
[2020-02-14 05:32] LABS: ALBUMIN 3.1 g/dL (3.5-5.0); ALKALINE PHOSPHATASE 198 U/L (38-126); ANION GAP 8 (5-19); ASPARTATE AMINO TRANSFERASE 23 U/L (14-36); BILIRUBIN,DIRECT 0.3 mg/dL (0.0-0.4); BILIRUBIN,TOTAL 0.6 mg/dL (0.2-1.3); BLOOD UREA NITROGEN 11 mg/dL (7-20); CARBON DIOXIDE 29 mmol/L (22-30); CHLORIDE 103 mmol/L (98-107); GLUCOSE 105 mg/dL (75-110); POTASSIUM 4.5 mmol/L (3.6-5.0); TOTAL PROTEIN 6.8 g/dL (6.3-8.2)
[2020-02-14] MEDS: INSULIN LISPRO 100 UNIT/ML 3 ML VIAL SUBCUT SCH ×4 (08:23→21:27)
[2020-02-14] MEDS: ZINC SULFATE 220 MG CAPSULE PO SCH (09:38)
[2020-02-14] MEDS: SERTRALINE HCL 50 MG TABLET PO SCH (09:39)
[2020-02-14] MEDS: ACETAMINOPHEN 325 MG TABLET PO SCH ×3 (09:39→18:23)
[2020-02-14] MEDS: CEFTRIAXONE 2 GM/D5W RTU 2 GM/50 ML RTUPB IV SCH ×2 (09:40→22:46)
[2020-02-14] MEDS: ASCORBIC ACID 500 MG TABLET PO SCH ×2 (09:40→18:24)
[2020-02-14] MEDS: CHOLECALCIFEROL (D3) 1,000 UNIT (25 MCG) TABLET PO SCH (09:40)
[2020-02-14] MEDS: GABAPENTIN 300 MG CAPSULE PO SCH ×3 (09:40→18:23)
[2020-02-14] MEDS: FERROUS SULFATE 325 MG TABLET PO SCH (09:40)
[2020-02-14] MEDS: ENOXAPARIN SODIUM INJ 40 MG/0.4 ML DISP.SYRIN SUBCUT SCH (09:41)
[2020-02-14] MEDS: NORMAL SALINE 10 ML SDV (SCHEDULED) IV SCH ×2 (10:05→22:04)
[2020-02-14] MEDS: AMPICILLIN SODIUM 2 GM in NORMAL SALINE 100 ML IV SCH ×4 (11:49→22:05)
[2020-02-14] MEDS: FLUTICASONE/VILANTEROL 100-25 MCG/DOSE IH SCH (11:50)
[2020-02-14] MEDS: MORPHINE SULFATE 10 MG/ML INJ IV PRN (20:15)
[2020-02-14] MEDS: INSULIN GLARGINE,HUM.REC.ANLOG 1,000 UNIT/10 ML VIAL SUBCUT SCH (22:04)
[2020-02-14] MEDS: PRAZOSIN HCL 1 MG PO SCH (22:05)
[2020-02-15] MEDS: AMPICILLIN SODIUM 2 GM in NORMAL SALINE 100 ML IV SCH ×6 (01:23→22:42)
[2020-02-15] MEDS: OXYCODONE HCL IR 5 MG TABLET PO PRN ×3 (02:46→22:41)
[2020-02-15] MEDS: MORPHINE SULFATE 10 MG/ML INJ IV PRN ×3 (04:25→20:38)
[2020-02-15] MEDS: ALBUTEROL SULFATE HFA (90 MCG/PUFF) 8 GM MDI IH SCH ×4 (06:04→23:11)
[2020-02-15] MEDS: HYDROXYZINE PAMOATE 50 MG CAPSULE PO SCH ×3 (06:07→22:42)
[2020-02-15] MEDS: PANTOPRAZOLE SODIUM 40 MG TABLET.DR PO SCH (06:07)
[2020-02-15 06:33] LABS: HEMOGLOBIN 8.5 g/dL (12.0-15.5); MEAN CORPUSCULAR HEMOGLOBIN 25.8 pg (27.0-33.4); MEAN CORPUSCULAR HGB CONC 30.3 g/dL (32.0-36.0); MEAN CORPUSCULAR VOLUME 85 fl (80-97); PLATELET COUNT 312 10^3/uL (150-450); RED CELL DISTRIBUTION WIDTH 18.3 % (11.5-14.0)
[2020-02-15 06:53] LABS: ALBUMIN 3.3 g/dL (3.5-5.0); ALKALINE PHOSPHATASE 207 U/L (38-126); ANION GAP 9 (5-19); ASPARTATE AMINO TRANSFERASE 24 U/L (14-36); BILIRUBIN,DIRECT 0.3 mg/dL (0.0-0.4); BILIRUBIN,TOTAL 0.6 mg/dL (0.2-1.3); BLOOD UREA NITROGEN 12 mg/dL (7-20); CALCIUM 8.9 mg/dL (8.4-10.2); CARBON DIOXIDE 28 mmol/L (22-30); CHLORIDE 102 mmol/L (98-107); GLUCOSE 132 mg/dL (75-110); POTASSIUM 4.4 mmol/L (3.6-5.0); TOTAL PROTEIN 7.2 g/dL (6.3-8.2)
[2020-02-15] MEDS: INSULIN LISPRO 100 UNIT/ML 3 ML VIAL SUBCUT SCH ×4 (07:00→22:29)
[2020-02-15] MEDS: ACETAMINOPHEN 325 MG TABLET PO SCH ×3 (11:07→22:41)
[2020-02-15] MEDS: CEFTRIAXONE 2 GM/D5W RTU 2 GM/50 ML RTUPB IV SCH ×2 (11:07→22:42)
[2020-02-15] MEDS: SERTRALINE HCL 50 MG TABLET PO SCH (11:09)
[2020-02-15] MEDS: FERROUS SULFATE 325 MG TABLET PO SCH (11:09)
[2020-02-15] MEDS: CHOLECALCIFEROL (D3) 1,000 UNIT (25 MCG) TABLET PO SCH (11:09)
[2020-02-15] MEDS: GABAPENTIN 300 MG CAPSULE PO SCH ×3 (11:09→17:28)
[2020-02-15] MEDS: ASCORBIC ACID 500 MG TABLET PO SCH ×2 (11:09→17:28)
[2020-02-15] MEDS: ENOXAPARIN SODIUM INJ 40 MG/0.4 ML DISP.SYRIN SUBCUT SCH (11:10)
[2020-02-15] MEDS: NORMAL SALINE 10 ML SDV (SCHEDULED) IV SCH ×2 (11:10→22:45)
[2020-02-15] MEDS: FLUTICASONE/VILANTEROL 100-25 MCG/DOSE IH SCH (12:40)
[2020-02-15] MEDS: ZINC SULFATE 220 MG CAPSULE PO SCH (13:55)
[2020-02-15] MEDS ORDERED: ALBUTEROL SULFATE HFA (90 MCG/PUFF) 8 GM MDI IH PRN (16:49)
--- NOTE | 2020-02-15 17:09 | PDOC PROGRESS REPORT ---
Subjective Date:: 02/15/20 Subjective:: No adverse events overnight. She remained stable on CPAP support. Vital signs have been stable. When she is awake she is fairly stable on about 5 L/min per nasal cannula. No fevers. Reason For Visit: HYPOXIA,FEVER Physical Exam Vital Signs: Temp Pulse Resp BP Pulse Ox 97.9 F 110 H 18 142/74 H 93 02/15/20 15:09 02/15/20 15:09 02/15/20 15:09 02/15/20 15:09 02/15/20 15:09 Intake & Output 02/14/20 02/15/20 02/16/20 06:59 06:59 06:59 Intake Total 1832 1020 370 Balance 1832 1020 370 Weight 180.2 kg 180.2 kg General appearance: PRESENT: no acute distress, cooperative, morbidly obese Respiratory exam: PRESENT: clear to auscultation syl, unlabored. ABSENT: wheezes Cardiovascular exam: PRESENT: RRR GI/Abdominal exam: PRESENT: normal bowel sounds, soft. ABSENT: distended, firm, guarding, mass, Wood's sign, rebound, rigid, tenderness Extremities exam: PRESENT: +2 edema Neurological exam: PRESENT: alert, awake, oriented to person, oriented to place, oriented to time, oriented to situation Psychiatric exam: PRESENT: appropriate affect Skin exam: ABSENT: jaundice, rash Results Laboratory Results: 02/15/20 06:20 02/15/20 06:20 02/15/20 02/15/20 06:20 06:20 WBC 9.0 RBC 3.30 L Hgb 8.5 L Hct 28.0 L MCV 85 MCH 25.8 L MCHC 30.3 L RDW 18.3 H Plt Count 312 Sodium 139.3 Potassium 4.4 Chloride 102 Carbon Dioxide 28 Anion Gap 9 BUN 12 Creatinine 0.82 Est GFR ( Amer) > 60 Glucose 132 H Calcium 8.9 Magnesium 2.0 Total Bilirubin 0.6 AST 24 Alkaline Phosphatase 207 H Total Protein 7.2 Albumin 3.3 L 02/10/20 12:33 Blood Blood Culture - Final NO GROWTH IN 5 DAYS 01/25/20 01/26/20 16:00 05:33 Creatine Kinase < 20 L 30 Impressions: Chest/Abdomen CTA 01/22/20 00:00 IMPRESSION: 1. No evidence of pulmonary embolus. 2. Scattered mosaic attenuation throughout the lungs possibly secondary to small airway disease or hypoventilatory change. 3. Trace left pleural effusion. Renal Ultrasound 01/28/20 00:00 IMPRESSION: Avascular approximately 3 cm mass off the inferior pole the left kidney. This most likely represents infectious or inflammatory process. PICC Line Insertion 02/04/20 00:00 IMPRESSION: SUCCESSFUL PLACEMENT OF A 5 FR DUAL LUMEN 44 CM PICC IN THE LEFT BASILIC VEIN. Thoracentesis Ultrasound 02/06/20 00:00 IMPRESSION: SUCCESSFUL THORACENTESIS USING ULTRASOUND GUIDANCE. Chest X-Ray 02/07/20 00:00 IMPRESSION: 1. Persistent bibasilar airspace opacities, more confluent on the left than the right. Left pleural effusion. No definite pneumothorax. Venous Doppler Study 02/09/20 00:00 IMPRESSION: No evidence of DVT or SVT in the visualized veins of the right leg. Limited exam with nonvisualization of the mid/distal superficial femoral and peroneal veins. Abdomen/Pelvis CT 02/13/20 00:00 IMPRESSION: 1. Large left pleural effusion with adjacent consolidation likely representing compressive atelectasis. Small right pleural effusion. 2. Scattered nodular opacities in the right lung are nonspecific in etiology and could be infectious. There is some interstitial opacities/septal thickening which could reflect pulmonary edema. 3. Exam is degraded due to patient body habitus. IMPRESSION: 1. Degraded examination due to patient body habitus. 2. Focal region of hypoattenuation in the inferomedial left kidney is similar in morphology, though may be slightly decreased in size from prior. 3. Slight decrease in size of region of hypoattenuation along the inferolateral spleen, possibly representing a subcapsular fluid collection. Chest CT 02/13/20 00:00 IMPRESSION: 1. Large left pleural effusion with adjacent consolidation likely representing compressive atelectasis. Small right pleural effusion. 2. Scattered nodular opacities in the right lung are nonspecific in etiology and could be infectious. There is some interstitial opacities/septal thickening which could reflect pulmonary edema. 3. Exam is degraded due to patient body habitus. IMPRESSION: 1. Degraded examination due to patient body habitus. 2. Focal region of hypoattenuation in the inferomedial left kidney is similar in morphology, though may be slightly decreased in size from prior. 3. Slight decrease in size of region of hypoattenuation along the inferolateral spleen, possibly representing a subcapsular fluid collection. Assessment and Plan - Diagnosis (1) Acute on chronic respiratory failure with hypoxemia Is this a current diagnosis for this admission?: Yes (2) Bacteremia due to Enterococcus Is this a current diagnosis for this admission?: Yes (3) Hyperglycemia due to type 2 diabetes mellitus Qualifiers: Diabetes mellitus skilled nursing insulin use: without skilled nursing use Qualified Code(s): E11.65 - Type 2 diabetes mellitus with hyperglycemia Is this a current diagnosis for this admission?: Yes (4) Morbid obesity with BMI of 70 and over, adult Is this a current diagnosis for this admission?: Yes (5) FROYLAN on CPAP Is this a current diagnosis for this admission?: Yes (6) Staphylococcus epidermidis bacteremia Is this a current diagnosis for this admission?: Yes - Plan Summary Summary: Per previous provider: "Ms. SARAHI ST is a 34 year old female with history of morbid obesity (BMI >70), FROYLAN, asthma, diabetes mellitus type 2, hypertension, anxiety and depression who presented on 01/21/2020 with diffuse abdominal pain. In the ER, patient received work-up with CT abdomen pelvis without contrast. This incidentally picked up groundglass opacities in patient's lower lungs. Patient also noted to have hypoxia at 90% on room air and leukocytosis with WBC of 19K. BCx were performed and she was admitted for further work up. She was found to have high-grade Enterococcus faecalis bacteremia which was persistent at 72 hours and was initially looking like it was clearing on 01/26, but her repeat blood cultures drawn 02/03 again demonstrated this organism. She also had staph epi in 1 set on 01/26. During her initial persistent bacteremia she was only on linezolid. ID was consulted and she was changed to daptomycin on 01/24. She had a TTE which demonstrated increased aortic valve velocity and moderate AR, but could not rule out a vegetation. Due to her morbid obesity, a MATTHEW was technically difficult and was unable to be performed (attempted but anesthesia was unable to secure her airway). In regards to her Enterococcus bacteremia, she had a CT scan initially without contrast and then with contrast that essentially just demonstrated some stranding concerning for panniculitis, splenic infarcts and possible left renal mass. Renal ultrasound showed this is likely an abscess rather than a solid tumor. Called [facility] and spoke with the urologist and interventional radiologist; had a lengthy discussion about the patient's imaging studies and how this should be addressed. They believe the patient's renal lesion is likely a phlegmon which may turn into an abscess in the near future. They recommended against attempting to drain this lesion until it becomes an actual liquid abscess. They also noted a lesion in the patient's spleen cons istent with septic emboli, similar to the kidney lesion. She likely has showered her organ systems with septic emboli likely from a central source, suspected to be AV endocarditis. MATTHEW was not able to be done as mentioned previously. Repeat blood cultures are pending, but if these remain negative, we may be able to transfer to a facility with CT surgery where they could potentially confirm a valvular vegetation on MATTHEW." Continue ceftriaxone and ampicillin per infectious disease consultation. Repeat blood cultures from 02/10 are negative to date. Subsequent cultures drawn since that have also been negative to date. Continue current level of oxygen support. Previous attempts at MATTHEW were unsuccessful as previously noted. The current suspicion is still bacteremia from aortic valve endocarditis, and were planning on antibiotic therapy in that direction. - Time Time Spent with patient: 15-24 minutes Anticipated Discharge Disposition: Unknown Anticipated Discharge Timeframe: Unknown
[2020-02-15] MEDS: LACTOBACILLUS ACIDOPHILUS 250 MG TAB PO SCH (17:28)
[2020-02-15] MEDS: ALBUTEROL SULFATE 0.083% NEB 2.5 MG/3 ML AMPUL NEB PRN (22:19)
[2020-02-15] MEDS: INSULIN GLARGINE,HUM.REC.ANLOG 1,000 UNIT/10 ML VIAL SUBCUT SCH (22:43)
[2020-02-15] MEDS: PRAZOSIN HCL 1 MG PO SCH (22:53)
[2020-02-16] MEDS: AMPICILLIN SODIUM 2 GM in NORMAL SALINE 100 ML IV SCH ×6 (02:53→21:17)
[2020-02-16] MEDS: MORPHINE SULFATE 10 MG/ML INJ IV PRN ×3 (04:26→23:28)
[2020-02-16] MEDS: HYDROXYZINE PAMOATE 50 MG CAPSULE PO SCH ×3 (05:40→21:17)
[2020-02-16] MEDS: PANTOPRAZOLE SODIUM 40 MG TABLET.DR PO SCH (05:40)
[2020-02-16] MEDS: ALBUTEROL SULFATE HFA (90 MCG/PUFF) 8 GM MDI IH SCH ×4 (05:41→23:34)
[2020-02-16 06:13] LABS: ALBUMIN 3.1 g/dL (3.5-5.0); ALKALINE PHOSPHATASE 191 U/L (38-126); ANION GAP 7 (5-19); ASPARTATE AMINO TRANSFERASE 20 U/L (14-36); BILIRUBIN,DIRECT 0.3 mg/dL (0.0-0.4); BILIRUBIN,TOTAL 0.6 mg/dL (0.2-1.3); BLOOD UREA NITROGEN 12 mg/dL (7-20); CALCIUM 8.8 mg/dL (8.4-10.2); CARBON DIOXIDE 29 mmol/L (22-30); CHLORIDE 103 mmol/L (98-107); GLUCOSE 121 mg/dL (75-110); POTASSIUM 4.3 mmol/L (3.6-5.0); TOTAL PROTEIN 6.9 g/dL (6.3-8.2)
[2020-02-16 06:16] LABS: HEMATOCRIT 24.4 % (36.0-47.0); MEAN CORPUSCULAR HGB CONC 30.4 g/dL (32.0-36.0); MEAN CORPUSCULAR VOLUME 86 fl (80-97); PLATELET COUNT 315 10^3/uL (150-450); RED BLOOD COUNT 2.85 10^6/uL (3.72-5.28); RED CELL DISTRIBUTION WIDTH 18.4 % (11.5-14.0); WHITE BLOOD COUNT 8.6 10^3/uL (4.0-10.5)
[2020-02-16 06:31] LABS: HEMOGLOBIN 7.4 g/dL (12.0-15.5)
[2020-02-16] MEDS: INSULIN LISPRO 100 UNIT/ML 3 ML VIAL SUBCUT SCH ×4 (07:33→21:18)
[2020-02-16] MEDS: ALBUTEROL SULFATE 0.083% NEB 2.5 MG/3 ML AMPUL NEB PRN (07:44)
[2020-02-16] MEDS: CEFTRIAXONE 2 GM/D5W RTU 2 GM/50 ML RTUPB IV SCH ×2 (10:40→21:17)
[2020-02-16] MEDS: CHOLECALCIFEROL (D3) 1,000 UNIT (25 MCG) TABLET PO SCH (10:41)
[2020-02-16] MEDS: ASCORBIC ACID 500 MG TABLET PO SCH ×2 (10:41→17:39)
[2020-02-16] MEDS: GABAPENTIN 300 MG CAPSULE PO SCH ×3 (10:41→17:39)
[2020-02-16] MEDS: ACETAMINOPHEN 325 MG TABLET PO SCH ×3 (10:41→17:39)
[2020-02-16] MEDS: SERTRALINE HCL 50 MG TABLET PO SCH (10:41)
[2020-02-16] MEDS: FERROUS SULFATE 325 MG TABLET PO SCH (10:41)
[2020-02-16] MEDS: ZINC SULFATE 220 MG CAPSULE PO SCH (10:42)
[2020-02-16] MEDS: FLUTICASONE/VILANTEROL 100-25 MCG/DOSE IH SCH (10:42)
[2020-02-16] MEDS: ENOXAPARIN SODIUM INJ 40 MG/0.4 ML DISP.SYRIN SUBCUT SCH (10:42)
[2020-02-16] MEDS: LACTOBACILLUS ACIDOPHILUS 250 MG TAB PO SCH ×2 (10:42→17:39)
[2020-02-16] MEDS: NORMAL SALINE 10 ML SDV (SCHEDULED) IV SCH ×2 (10:44→21:18)
--- NOTE | 2020-02-16 15:18 | PDOC PROGRESS REPORT ---
Subjective Date:: 02/16/20 Subjective:: No adverse events overnight. She remained stable on CPAP support. Vital signs have been stable. When she is awake she is fairly stable on about 5 L/min per nasal cannula but she seems to prefer having the CPAP on at all times. No fevers. Reason For Visit: HYPOXIA,FEVER Physical Exam Vital Signs: Temp Pulse Resp BP Pulse Ox 97.9 F 115 H 19 141/60 H 93 02/16/20 10:58 02/16/20 14:00 02/16/20 10:58 02/16/20 10:58 02/16/20 10:58 Intake & Output 02/15/20 02/16/20 02/17/20 06:59 06:59 06:59 Intake Total 1020 1954 572 Balance 1020 1954 572 Weight 180.2 kg 180.2 kg General appearance: PRESENT: no acute distress, cooperative, morbidly obese Respiratory exam: PRESENT: clear to auscultation syl, unlabored. ABSENT: wheezes Cardiovascular exam: PRESENT: RRR GI/Abdominal exam: PRESENT: normal bowel sounds, soft. ABSENT: distended, firm, guarding, mass, Wood's sign, rebound, rigid, tenderness Extremities exam: PRESENT: +2 edema Neurological exam: PRESENT: alert, awake, oriented to person, oriented to place, oriented to time, oriented to situation Psychiatric exam: PRESENT: appropriate affect Skin exam: ABSENT: jaundice, rash Results Laboratory Results: 02/16/20 04:59 02/16/20 04:59 02/16/20 02/16/20 04:59 04:59 WBC 8.6 RBC 2.85 L Hgb 7.4 L Hct 24.4 L MCV 86 MCH 26.0 L MCHC 30.4 L RDW 18.4 H Plt Count 315 Sodium 139.4 Potassium 4.3 Chloride 103 Carbon Dioxide 29 Anion Gap 7 BUN 12 Creatinine 0.88 Est GFR ( Amer) > 60 Glucose 121 H Calcium 8.8 Magnesium 2.1 Total Bilirubin 0.6 AST 20 Alkaline Phosphatase 191 H Total Protein 6.9 Albumin 3.1 L 02/10/20 12:33 Blood Blood Culture - Final NO GROWTH IN 5 DAYS 01/25/20 01/26/20 16:00 05:33 Creatine Kinase < 20 L 30 Impressions: Chest/Abdomen CTA 01/22/20 00:00 IMPRESSION: 1. No evidence of pulmonary embolus. 2. Scattered mosaic attenuation throughout the lungs possibly secondary to small airway disease or hypoventilatory change. 3. Trace left pleural effusion. Renal Ultrasound 01/28/20 00:00 IMPRESSION: Avascular approximately 3 cm mass off the inferior pole the left kidney. This most likely represents infectious or inflammatory process. PICC Line Insertion 02/04/20 00:00 IMPRESSION: SUCCESSFUL PLACEMENT OF A 5 FR DUAL LUMEN 44 CM PICC IN THE LEFT BA SILIC VEIN. Thoracentesis Ultrasound 02/06/20 00:00 IMPRESSION: SUCCESSFUL THORACENTESIS USING ULTRASOUND GUIDANCE. Chest X-Ray 02/07/20 00:00 IMPRESSION: 1. Persistent bibasilar airspace opacities, more confluent on the left than the right. Left pleural effusion. No definite pneumothorax. Venous Doppler Study 02/09/20 00:00 IMPRESSION: No evidence of DVT or SVT in the visualized veins of the right leg. Limited exam with nonvisualization of the mid/distal superficial femoral and peroneal veins. Abdomen/Pelvis CT 02/13/20 00:00 IMPRESSION: 1. Large left pleural effusion with adjacent consolidation likely representing compressive atelectasis. Small right pleural effusion. 2. Scattered nodular opacities in the right lung are nonspecific in etiology and could be infectious. There is some interstitial opacities/septal thickening which could reflect pulmonary edema. 3. Exam is degraded due to patient body habitus. IMPRESSION: 1. Degraded examination due to patient body habitus. 2. Focal region of hypoattenuation in the inferomedial left kidney is similar in morphology, though may be slightly decreased in size from prior. 3. Slight decrease in size of region of hypoattenuation along the inferolateral spleen, possibly representing a subcapsular fluid collection. Chest CT 02/13/20 00:00 IMPRESSION: 1. Large left pleural effusion with adjacent consolidation likely representing compressive atelectasis. Small right pleural effusion. 2. Scattered nodular opacities in the right lung are nonspecific in etiology and could be infectious. There is some interstitial opacities/septal thickening which could reflect pulmonary edema. 3. Exam is degraded due to patient body habitus. IMPRESSION: 1. Degraded examination due to patient body habitus. 2. Focal region of hypoattenuation in the inferomedial left kidney is similar in morphology, though may be slightly decreased in size from prior. 3. Slight decrease in size of region of hypoattenuation along the inferolateral spleen, possibly representing a subcapsular fluid collection. Assessment and Plan - Diagnosis (1) Acute on chronic respiratory failure with hypoxemia Is this a current diagnosis for this admission?: Yes (2) Bacteremia due to Enterococcus Is this a current diagnosis for this admission?: Yes (3) Hyperglycemia due to type 2 diabetes mellitus Qualifiers: Diabetes mellitus intermediate card tender insulin use: without senior care use Qualified Code(s): E11.65 - Type 2 diabetes mellitus with hyperglycemia Is this a current diagnosis for this admission?: Yes (4) Morbid obesity with BMI of 70 and over, adult Is this a current diagnosis for this admission?: Yes (5) FROYLAN on CPAP Is this a current diagnosis for this admission?: Yes (6) Staphylococcus epidermidis bacteremia Is this a current diagnosis for this admission?: Yes - Plan Summary Summary: Per previous provider: "Ms. SARAHI ST is a 34 year old female with history of morbid obesity (BMI >70), FROYLAN, asthma, diabetes mellitus type 2, hypertension, anxiety and depression who presented on 01/21/2020 with diffuse abdominal pain. In the ER, patient received work-up with CT abdomen pelvis without contrast. This incidentally picked up groundglass opacities in patient's lower lungs. Patient also noted to have hypoxia at 90% on room air and leukocytosis with WBC of 19K. BCx were performed and she was admitted for further work up. She was found to have high-grade Enterococcus faecalis bacteremia which was persistent at 72 hours and was initially looking like it was clearing on 01/26, but her repeat blood cultures drawn 02/03 again demonstrated this organism. She also had staph epi in 1 set on 01/26. During her initial persistent bacteremia she was only on linezolid. ID was consulted and she was changed to daptomycin on 01/24. She had a TTE which demonstrated increased aortic valve velocity and moderate AR, but could not rule out a vegetation. Due to her morbid obesity, a MATTHEW was technically difficult and was unable to be performed (attempted but anesthesia was unable to secure her airway). In regards to her Enterococcus bacteremia, she had a CT scan initially without contrast and then with contrast that essentially just demonstrated some stranding concerning for panniculitis, splenic infarcts and possible left renal mass. Renal ultrasound showed this is likely an abscess rather than a solid tumor. Called [facility] and spoke with the urologist and interventional radiologist; had a lengthy discussion about the patient's imaging studies and how this should be addressed. They believe the patient's renal lesion is likely a phlegmon which may turn into an abscess in the near future. They recommended against attempting to drain this lesion until it becomes an actual liquid abscess. They also noted a lesion in the patient's spleen consistent with septic emboli, similar to the kidney lesion. She likely has showered her organ systems with septic emboli likely from a central source, suspected to be AV endocarditis. MATTHEW was not able to be done as mentioned previously. Repeat blood cultures are pending, but if these remain negative, we may be able to transfer to a facility with CT surgery where they could potentially confirm a valvular vegetation on MATTHEW." Continue ceftriaxone and ampicillin per infectious disease consultation. Repeat blood cultures from 02/10 turn positive with a gram-positive coccus in 1 bottle of 1 set, possibly a contaminant, we will continue to watch to see what it turns out to be. Subsequent cultures drawn since then have been negative to date. Continue current level of oxygen support. Previous attempts at MATTHEW were unsuccessful as previously noted. The current suspicion is still bacteremia from aortic valve endocarditis, and were planning on antibiotic therapy in that direction. It seems that the plan is for her to stay here until March 24 to complete her antibiotics. - Time Time Spent with patient: 15-24 minutes Anticipated Discharge Disposition: Unknown Anticipated Discharge Timeframe: Unknown
[2020-02-16] MEDS: OXYCODONE HCL IR 5 MG TABLET PO PRN (18:52)
[2020-02-16] MEDS: INSULIN GLARGINE,HUM.REC.ANLOG 1,000 UNIT/10 ML VIAL SUBCUT SCH (21:16)
[2020-02-16] MEDS: PRAZOSIN HCL 1 MG PO SCH (21:19)
[2020-02-17] MEDS: AMPICILLIN SODIUM 2 GM in NORMAL SALINE 100 ML IV SCH ×6 (01:24→22:00)
[2020-02-17] MEDS: OXYCODONE HCL IR 5 MG TABLET PO PRN ×3 (02:17→22:20)
[2020-02-17] MEDS: PANTOPRAZOLE SODIUM 40 MG TABLET.DR PO SCH (05:03)
[2020-02-17] MEDS: HYDROXYZINE PAMOATE 50 MG CAPSULE PO SCH ×3 (05:03→22:08)
[2020-02-17] MEDS: ALBUTEROL SULFATE HFA (90 MCG/PUFF) 8 GM MDI IH SCH ×3 (05:04→17:28)
[2020-02-17] MEDS: MORPHINE SULFATE 10 MG/ML INJ IV PRN ×2 (05:26→20:40)
[2020-02-17] MEDS: ONDANSETRON HCL INJ/PF 4 MG/2 ML SDV IV PRN ×2 (05:27→22:20)
[2020-02-17] MEDS: INSULIN LISPRO 100 UNIT/ML 3 ML VIAL SUBCUT SCH ×4 (07:51→21:58)
[2020-02-17] MEDS: FLUTICASONE/VILANTEROL 100-25 MCG/DOSE IH SCH (09:48)
[2020-02-17] MEDS: LACTOBACILLUS ACIDOPHILUS 250 MG TAB PO SCH ×2 (09:48→17:27)
[2020-02-17] MEDS: FERROUS SULFATE 325 MG TABLET PO SCH (09:49)
[2020-02-17] MEDS: SERTRALINE HCL 50 MG TABLET PO SCH (09:50)
[2020-02-17] MEDS: ASCORBIC ACID 500 MG TABLET PO SCH ×2 (09:51→17:27)
[2020-02-17] MEDS: ZINC SULFATE 220 MG CAPSULE PO SCH (09:51)
[2020-02-17] MEDS: GABAPENTIN 300 MG CAPSULE PO SCH ×3 (09:51→17:28)
[2020-02-17] MEDS: CHOLECALCIFEROL (D3) 1,000 UNIT (25 MCG) TABLET PO SCH (09:51)
[2020-02-17] MEDS: ACETAMINOPHEN 325 MG TABLET PO SCH ×3 (09:51→17:26)
[2020-02-17] MEDS: CEFTRIAXONE 2 GM/D5W RTU 2 GM/50 ML RTUPB IV SCH ×2 (09:52→22:01)
[2020-02-17] MEDS: NORMAL SALINE 10 ML SDV (SCHEDULED) IV SCH ×2 (09:52→22:01)
[2020-02-17] MEDS: ENOXAPARIN SODIUM INJ 40 MG/0.4 ML DISP.SYRIN SUBCUT SCH (09:53)
[2020-02-17] MEDS: ALBUTEROL SULFATE 0.083% NEB 2.5 MG/3 ML AMPUL NEB PRN (12:42)
--- NOTE | 2020-02-17 15:20 | PDOC PROGRESS REPORT ---
Subjective Date:: 02/17/20 Subjective:: SARAHI ST is a 34 year old female with history of morbid obesity, FROYLAN, ast hma, diabetes mellitus, hypertension, anxiety and depression, who presents to the hospital with complaints of diffuse abdominal pain. The pain started 1 day ago. She describes it as aching pain which lasts several minutes. States it occurs every 15 minutes. Feels like a cramping sensation. Denies prior episodes. No notable aggravating or alleviating factors. Denies any relationship with food consumption. Admits to nausea but no vomiting. Denies any vaginal discharge. Denies any urinary symptoms.. Last sexual activity was in 2015. Preceding onset of this symptoms, she states she ate out on Monday. Subsequently became constipated and took a laxative. After that she had a few episodes of diarrhea on Monday and Monday. Pain started on Monday. In the ER, patient received work-up with CT abdomen pelvis without contrast. This incidentally picked up groundglass opacities in patient's lower lungs. Patient also noted to have hypoxia at 90% on room air. She has chronic issues with her breathing and often gets short of breath but is also quite overweight. She has not noted any recent worsening of her breathing. Noted to be febrile in the ER as well. Interval history: 01/23/2020: Patient was seen and examined. She still with high white count. No fever. Complains of abdominal wall pain. 01/24/2020: Patient was seen and examined. White count is improving. No fever. Complains of abdominal wall pain. 01/25/2020: Patient was seen and examined. White count is improving. Afebrile. Improving overall. Repeat cultures still positive for Enterococcus. 01/26/2020: Patient was seen and examined. Had low-grade fever of 100.6 last night. Stable on 4 L of nasal cannula oxygen." 01/27/2020 Still unclear where the source of the patient's infection might be. Per ID, they suspect intra-abdominal source such as the bowel or tract. We will repeat a CT abdomen and this time and on the pelvis as well. This will be done with IV and oral contrast to look for any potential abscesses could have formed along her bowel. She still having vaginal bleeding and states that sometimes she bleeds for an entire month. She does not follow with a literacy coach regularly as she does not have insurance. Patient states she feels okay today. MATTHEW is being arranged reportedly. Daptomycin continues. Lower WBC and lower hemoglobin down to 8. Latest blood culture is also positive for Enterococcus, same organism as the previous cultures per micro lab. 01/28/2020 CT abdomen/pelvis with contrast showed possible left renal mass and I have ordered a renal ultrasound to get a closer look at this. Renal ultrasound showed this is likely an abscess rather than a solid tumor. We will need urology opinion and I will give them a call to see if they would like the patient transferred for intervention or if IR would be able to drain this here. Patient remains afebrile. Blood cultures 1/2 growing MRSA. Patient believes the suspected abscess in her left kidney may be the source of her left upper quadrant and left flank pain. 01/29/2020 I called [facility] and spoke with the urologist on staff there and then he called their interventional radiologist had a lengthy discussion about the patient's imaging studies and how this should be addressed. They believe the farzad salcido's renal lesion is likely a phlegmon which may turn into an abscess in the near future. They recommended against attempting to drain this lesion until it becomes an actual liquid abscess. They also noted a lesion in the patient's spleen consistent with septic emboli and similar to the kidney lesion. I believe the patient has showered her organ systems with septic emboli likely from a central source, suspected to be infected endocarditis. MATTHEW was not able to be done as mentioned previously and this will need to be repeated in the near future. We will repeat blood cultures today and if these remain negative we may explore transfer to a CT surgery facility once we can confirm a valvular vegetation on MATTHEW. Patient has no new complaints today. I examined her buttock regions and did not see any open wounds that could be a source for MRSA infection. The patient had mentioned previously having some irritation and possibly an open wound in that area. 01/30/2020 Most recent set of results of blood cultures on 01/26 have now resulted as 1/2 bottles contaminated with coag negative staph, otherwise blood cultures are negative. Patient is continued on daptomycin. Blood cultures drawn yesterday are still pending. Patient states she feels slightly better. Dr. Kimbrough is planning to repeat MATTHEW attempt next week. This is certainly indicated given that she probably has a central source of bloodstream infection showering multiple organs, most likely infected endocarditis. Possible she seeded her heart valves from a skin infection became bacteremia. 01/31/2020 Blood cultures are growing staph species in 1/2 bottles, suspect this may be a contaminant. Patient is having a bit more pain in her left flank and abdomen likely due to the septic emboli in her kidney. She has been using morphine overnight and explained to her that this will not provide lasting pain relief and she should use the Percocet instead and reserve the morphine for breakthrough pain. I also discussed this with the nurse. I have ordered a MATTHEW to be done on Monday assuming Dr. Kimbrough is available for this. I noted she had a positive mycoplasma IgG antibody earlier in the admission she was approp riately treated with a course of azithromycin. Her blood cultures have not grown mycoplasma and this may be simply antibodies from an exposure in the past other than an active infection. D-dimer is higher. We will check PVL BLE to rule out DVT. There is no PE on a recent CTPA. 02/01/2020 Most recent 1/2 blood cultures still growing coag negative staph highly likely a contaminant. If this is the case, patient is to consecutive negative blood culture results from different days. We could say blood is likely cleared of infection as of 01/26. We continue to plan for MATTHEW hopefully on Monday. Order has been placed but the timing of the procedure will be entirely up to Dr. Kimbrough's availability. Patient likely has obesity hypoventilation syndrome and we should not push her oxygen towards 100%. She will likely breathe and feel better overall at a lower O2 saturation around 92% or higher. She is at risk for CO2 retention we do not keep this in mind. 02/02/2020 Patient still having significant left upper quadrant pain likely due to developing splenic abscess. We will repeat a CT abdomen/pelvis with contrast in the next 48 hours to see if this has gone from being a phlegmon to a drainable abscess. Per my discussion with [facility] interventional radiology, they did not recommend attempting to drain any septic emboli unless it had clear evidence of being a liquid abscess. I have added gabapentin to help with the pain and we will continue Percocet and then also morphine for breakthrough pain. Other than that, patient has no new complaints. Will hopefully have MATTHEW done again in the next 48 hours. This is pending Dr. Kimbrough availability. 02/03/2020 Unable to get MATTHEW today due to anesthesia refusing to attempt this again here they stated patient's airway is extremely tenuous and they were barely able to safely intubate the patient previously. Dr. Kimbrough was also concerned after speaking with them that he would likely not have success on the second attempt either. He recommended treating the patient with 6 weeks of IV antibiotics for presumed infective endocarditis. It would be helpful if the patient lost a significant amount of weight over the next 6 weeks as this may assist with the difficult anatomy of her neck. Patient could potentially be discharged home if case management is able to arrange outpatient infusions. She will need a PICC line placed and to have her central line removed. I will place an order for this to be done tomorrow. Patient will need a physician to follow-up her care after she leaves if she continues on IV antibiotics. She will need periodic labs over the next 6 weeks and someone to monitor these. 02/04/20 Patient was seen and examined at bedside. She is still complaining of left sided flank pain which is still likely from septic emboli to her left kidney. I have increased her percocet to q3 hrs and increased her morphine. She got a PICC line today for planned 6 weeks of abx. She is still currently requiring O2 support. Discharge planning still trying to work on setting up home infusion for dapto as well as home O2. Will repeat CT abdomen/pelvis to assess septic emboli to left kidney. 02/05/20 Patient was seen and examined at bedside. Still on her CPAP machine most of the time. Repeat blood culture drawn yesterday still growing Enterococcus. I have touched base with infectious disease regarding this and I was able to speak to Dr. Navarrete. She recommends to talk to the patient about her penicillin allergy possibly switch her over to ceftriaxone and ampicillin regimen since this is much better for Enterococcus. He also recommended to consult CT surgery for her splenic emboli and high suspicion for endocarditis. With her BMI I doubt that he will she will qualify for any surgery but will try to reach out to a CT surgeon tomorrow. We will also ask her about her penicillin allergy. Repeat CT abdomen and pelvis showed grossly stable appearance of the ill-defined area of hypoattenuation along the inferior left kidney. Stable linear area of hypoattenuation within the spleen. Morbid obesity with skin thickening along the pannus suggestive of panniculitis. Moderate left-sided pleural effusion I have changed her pain medications to morphine IR 10 mg every 4 since she claims that she responds more to morphine rather than Percocet. I have stopped her Percocet and her IV morphine. 02/06/20 Patient was seen and examined at bedside. She reports that her pain seems to be much better with the morphine IR however she feels that she is more nauseous with it as well. I have decreased her morphine to 5 mg every 6. I also discussed with her the recent infectious disease recommendation regarding amoxicillin challenge. She stated that she had a reaction to amoxicillin when she was 14 years old when she got it for dental procedure when she developed tongue swelling however she did not report any shortness of breath, no rashes, did not need to go to the emergency room because of severe allergic reaction. Since this remote penicillin allergy happened more than 15 years ago we we have decided to go ahead with challenging her with amoxicillin 50 mg and then observe her for 20 minutes and then full dose 500 mg/h of amoxicillin and observe her for another hour after that. She did not experience any symptoms with the 50 mg of amoxicillin. If she passed a challenge I would likely switch her antibiotics to ceftriaxone, ampicillin to treat her persistent enterococcal bacteremia. 02/07/20 Patient was seen and examined at bedside. Overall feels ok, reports that her oxygen needs from the nasal cannula may be coming down since the removal of pleural effusion yesterday. she is so far tolerating the ceftriaxone/ampicillin regimen. Still reports nausea and headache with the oral morphine so will trial her on [place] instead. She shared that she had a dental procedures a few months ago which she thought might be the source of her Endocarditis since she did not receive any abx. Will plan to repeat her blood cultures in 48 hrs. 02/08/20 Patient was seen and examined at bedside. She denied any new complains, still with pain on left side. Her hgb was noted to be 6.7 but she denies any melena, hematemesis. She was given 1 unit PRBC. Otherwise she is doing about the same. Plan to repeat blood culture on monday.She was complaining of right lower leg pain. Venous doppler ordered to rule out DVT 02/09/20 Patient was seen and examined at bedside. No new complains, remained afebrile. No chest pain, no SOB, still with stable left sided pain. I talked to her about putting PT on consult and she said she would like to try and could come off the CPAP and be on nasal cannula. Repeat blood culture tomorrow morning. hgb 8.0 today. She received 1 unit of PRBC 02/10/20 Patient was seen and examined at bedside. No new complains. She will be assessed by physical therapy today. Repeat blood cultures were drawn today. She has been afebrile al throughout. I have discussed her case with CT surgery PA at [facility] and he stated that they're ability to properly assess her is very limited because she does not have adequate imaging of her presumed endocarditis. She is on Day 4 of Ceftri/ampi regimen and repeat blood cultures were drawn today. 02/17/20 Care resumed today. Reviewed notes of last week. Her blood culture has been negative since 02/15/20. repeat Bcx 02/16/20 showed staph specie growth which she previously grew before and is suspected to be a contaminant. She is currently on D11 of ceftri/ampi. She is scheduled to undergo WBC scan today. repeat CT chest done showed large left pleural effusion. She had a previous thoracentesis 02/06/20 to drain the effusion she had on the same side. She has been afebrile and WBC is normal. Reason For Visit: HYPOXIA,FEVER Physical Exam Vital Signs: Temp Pulse Resp BP Pulse Ox 97.8 F 112 H 20 131/58 H 99 02/17/20 11:55 02/17/20 14:00 02/17/20 12:42 02/17/20 11:55 02/17/20 12:42 Intake & Output 02/16/20 02/17/20 02/18/20 06:59 06:59 06:59 Intake Total 1953 1588 250 Balance 1953 1588 250 Weight 180.2 kg 180.2 kg General appearance: PRESENT: mild distress, morbidly obese Head exam: PRESENT: atraumatic, normocephalic Eye exam: PRESENT: EOMI, PERRLA Mouth exam: PRESENT: moist Neck exam: PRESENT: full ROM Respiratory exam: PRESENT: decreased breath sounds, symmetrical, unlabored Cardiovascular exam: PRESENT: RRR, +S1, +S2 GI/Abdominal exam: PRESENT: normal bowel sounds Extremities exam: PRESENT: full ROM Musculoskeletal exam: PRESENT: full ROM Neurological exam: PRESENT: alert, awake, oriented to person, oriented to place, oriented to time, oriented to situation Psychiatric exam: PRESENT: normal mood Skin exam: PRESENT: normal color Results Laboratory Results: 02/16/20 04:59 02/16/20 04:59 02/11/20 20:10 Blood Blood Culture - Final NO GROWTH IN 5 DAYS 02/11/20 15:55 Blood Blood Culture - Final NO GROWTH IN 5 DAYS 02/11/20 15:25 Blood Blood Culture - Final NO GROWTH IN 5 DAYS 02/11/20 15:10 Blood Blood Culture - Final NO GROWTH IN 5 DAYS 01/25/20 01/26/20 16:00 05:33 Creatine Kinase < 20 L 30 Impressions: Chest/Abdomen CTA 01/22/20 00:00 IMPRESSION: 1. No evidence of pulmonary embolus. 2. Scattered mosaic attenuation throughout the lungs possibly secondary to small airway disease or hypoventilatory change. 3. Trace left pleural effusion. Renal Ultrasound 01/28/20 00:00 IMPRESSION: Avascular approximately 3 cm mass off the inferior pole the left kidney. This most likely represents infectious or inflammatory process. PICC Line Insertion 02/04/20 00:00 IMPRESSION: SUCCESSFUL PLACEMENT OF A 5 FR DUAL LUMEN 44 CM PICC IN THE LEFT BASILIC VEIN. Thoracentesis Ultrasound 02/06/20 00:00 IMPRESSION: SUCCESSFUL THORACENTESIS USING ULTRASOUND GUIDANCE. Chest X-Ray 02/07/20 00:00 IMPRESSION: 1. Persistent bibasilar airspace opacities, more confluent on the left than the right. Left pleural effusion. No definite pneumothorax. Venous Doppler Study 02/09/20 00:00 IMPRESSION: No evidence of DVT or SVT in the visualized veins of the right leg. Limited exam with nonvisualization of the mid/distal superficial femoral and peroneal veins. Abdomen/Pelvis CT 02/13/20 00:00 IMPRESSION: 1. Large left pleural effusion with adjacent consolidation likely representing compressive atelectasis. Small right pleural effusion. 2. Scattered nodular opacities in the right lung are nonspecific in etiology and could be infectious. There is some interstitial opacities/septal thickening which could reflect pulmonary edema. 3. Exam is degraded due to patient body habitus. IMPRESSION: 1. Degraded examination due to patient body habitus. 2. Focal region of hypoattenuation in the inferomedial left kidney is similar in morphology, though may be slightly decreased in size from prior. 3. Slight decrease in size of region of hypoattenuation along the inferolateral spleen, possibly representing a subcapsular fluid collection. Chest CT 02/13/20 00:00 IMPRESSION: 1. Large left pleural effusion with adjacent consolidation likely representing compressive atelectasis. Small right pleural effusion. 2. Scattered nodular opacities in the right lung are nonspecific in etiology and could be infectious. There is some interstitial opacities/septal thickening which could reflect pulmonary edema. 3. Exam is degraded due to patient body habitus. IMPRESSION: 1. Degraded examination due to patient body habitus. 2. Focal region of hypoattenuation in the inferomedial left kidney is similar in morphology, though may be slightly decreased in size from prior. 3. Slight decrease in size of region of hypoattenuation along the inferolateral spleen, possibly representing a subcapsular fluid collection. Assessment and Plan - Diagnosis (1) Bacteremia due to Enterococcus Is this a current diagnosis for this admission?: Yes Plan: - CT abdomen/pelvis with contrast showed likely septic emboli to left kidney and spleen; discussed with urology and IR at [facility], will hold off on draining these unless they turn into an abscess rather than what appears to be phlegmon - cultures: Blood cultures 01/20+ for Enterococcus, 01/21+ for Enterococcus, 01/23+ for Enterococcus, 01/26 blood cultures growing coag negative staph contaminant in 1/2 bottles otherwise clear, 01/28 growing staph epidermidis - 02/03 blood culture again grew enterococcus and staph epidermidis - TTE 01/24/20 cannot exclude vegetation. LV systolic function is normal, EF 55 to 60%, mild MR, moderate AR. -Patient was challenged with 50 mg oral amoxicillin was observed for 20 minutes for any reaction she did not have any. And then she received full dose 500 mg of amoxicillin for ROM and was observed for the next few hours and she remained stable with no shortness of breath no tongue swelling no hypotension. Antibio tics switched to ceftriaxone and ampicillin per ID recommendations. -I discussed her case with [facility] CT surgery department and I was able to speak to their PA Richard and unfortunately there is that their ability to help her is limited by the fact that she does not have adequate imaging to properly confirm endocarditis and assess valvular dysfunction. - on ceftri/ampi day 11 -negtaive blood culture 02/11/20. repeat Blood cx 02/16/20 grew staph specie which was thought to be a contaminant. If we count start the 6 week count on her last negative blood culture, her last day of abx will be Mar 24 to complete 6 weeks of treatment - Patient has a PICC line. Previous physician stated she may need a line holiday. Will discuss with ID tomorrow. (2) Septic embolism Is this a current diagnosis for this admission?: Yes Plan: -Repeat CT abdomen/pelvis with IV and oral contrast showed suspected left renal mass Renal ultrasound showed likely left renal abscess rather than solid mass Had urology at outside hospital to review imaging to decide if suspected left renal abscess can be drained by IR or if the patient needs to be transferred for surgical intervention; they recommended continued IV antibiotics and repeat imaging in the next few weeks if patient worsens clinically as patient may need abscesses drained. -CT abdomen repeat showed stable appearance of previously noted splenic and renal infarcts/abscess -D1 ceftri/ampi started 02/06/20. (3) Acute on chronic respiratory failure with hypoxemia Is this a current diagnosis for this admission?: Yes (4) Normocytic anemia Is this a current diagnosis for this admission?: Yes Plan: - Hgb 6.7>8.0>7.7 post transfusion likely due to chronic medical condition on top of blood draws - I do not think she has any active bleeding - s/p 1 u PRBC (5) FROYLAN on CPAP Is this a current diagnosis for this admission?: Yes Plan: nocturnal cpap. She mainly wears this because she is sleeping al throughout the day otherwise she feels she can do PT without it. (6) Pleural effusion due to bacterial infection Is this a current diagnosis for this admission?: Yes Plan: - had a previous thoracentesis 02/06/20 exudative by [facility] criteria, cultures were negtaive - repeat CT chest showed that this has reaccumulated - repeat thoracentesis tomorrow. IR consulted (7) Panniculitis Is this a current diagnosis for this admission?: Yes Plan: -Antibiotic switch from Dapto to ceftriaxone/ampicillin. (8) Diabetes mellitus type 2 in obese Is this a current diagnosis for this admission?: Yes Plan: - continue SSI, hypoglycemia protocol and accucheck (9) Sepsis Qualifiers: Sepsis type: sepsis due to unspecified organism Sepsis acute organ dysf unction status: without acute organ dysfunction Qualified Code(s): A41.9 - Sepsis, unspecified organism Is this a current diagnosis for this admission?: Yes Plan: RESOLVED - Leukocytosis, febrile, hypoxic, tachycardic. - source likely endocarditis -Dapto switched to ceftriaxone/ampicillin started 02/06/20 (10) Morbid obesity with BMI of 70 and over, adult Is this a current diagnosis for this admission?: Yes Plan: - BMI over 70 - advised diet and lifestyle modification (11) Essential hypertension Is this a current diagnosis for this admission?: Yes (12) Menometrorrhagia Is this a current diagnosis for this admission?: Yes (13) Chronic pain Qualifiers: Chronic pain type: other chronic pain Qualified Code(s): G89.29 - Other chronic pain Is this a current diagnosis for this admission?: Yes Plan: - on morphine and norco (14) Elevated d-dimer Is this a current diagnosis for this admission?: Yes Plan: likely due to high inflammatory state caused by morbid obesity and infection - BLE duplex US this admission was negative for DVT - CTA chest this admission negative for PE (15) Difficult airway Qualifiers: Encounter type: subsequent encounter Qualified Code(s): T88.4XXD - Failed or difficult intubation, subsequent encounter Is this a current diagnosis for this admission?: Yes Plan: due to morbid obesity, a MATTHEW was technically difficult and was unable to be performed (attempted but anesthesia was unable to secure her airway). A second attempt at a MATTHEW was planned on 02/02 but anesthesia declined to attempt this again as they stated patient's airway is extremely tenuous and they were barely able to safely intubate the patient previously. Cardiology, Dr. Kimbrough, was also concerned after speaking with them that he would likely not have success on the second attempt either. 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 It would be helpful if the patient lost a significant amount of weight over the next 6 weeks as this may assist with the difficult anatomy of her neck. - will discuss again with cardiology given persistent bacteremia and inability to transfer to another site without MATTHEW, we may need to re-attempt MATTHEW here at [place] again this hospitalization - Time Time Spent with patient: 15-24 minutes Medications reviewed and adjusted accordingly: Yes Anticipated Discharge Disposition: Home with Home Health Anticipated Discharge Timeframe: TBD
[2020-02-17] MEDS: INSULIN GLARGINE,HUM.REC.ANLOG 1,000 UNIT/10 ML VIAL SUBCUT SCH (22:02)
[2020-02-17] MEDS: PRAZOSIN HCL 1 MG PO SCH (22:06)
[2020-02-18] MEDS ORDERED: MORPHINE SULFATE 10 MG/ML INJ IV ONE (02:00)
[2020-02-18] MEDS: AMPICILLIN SODIUM 2 GM in NORMAL SALINE 100 ML IV SCH ×6 (02:15→21:54)
[2020-02-18] MEDS: ALBUTEROL SULFATE HFA (90 MCG/PUFF) 8 GM MDI IH SCH ×4 (02:22→22:06)
[2020-02-18] MEDS: HYDROXYZINE PAMOATE 50 MG CAPSULE PO SCH ×3 (05:45→21:50)
[2020-02-18] MEDS: PANTOPRAZOLE SODIUM 40 MG TABLET.DR PO SCH (05:45)
[2020-02-18] MEDS: OXYCODONE HCL IR 5 MG TABLET PO PRN ×3 (06:33→19:34)
[2020-02-18] MEDS: ONDANSETRON HCL INJ/PF 4 MG/2 ML SDV IV PRN ×2 (06:34→19:35)
[2020-02-18] MEDS: MORPHINE SULFATE 10 MG/ML INJ IV PRN ×2 (08:09→16:01)
[2020-02-18] MEDS: INSULIN LISPRO 100 UNIT/ML 3 ML VIAL SUBCUT SCH ×4 (09:12→21:45)
--- NOTE | 2020-02-18 09:25 | RADIOLOGY REPORT (SQ) ---
EXAM DESCRIPTION: NM CERETEC WBC SCAN WHOLE BODY IMAGES COMPLETED DATE/TIME: 02/17/2020 3:58 pm REASON FOR STUDY: persistent bacteremia unknown source COMPARISON: None. RADIONUCLIDE AND DOSE: 20.9 mCi technetium 99 M Ceretec labeled white blood cells. ADDITIONAL DRUGS AND DOSES: None. TECHNIQUE: Radionuclide administered intravenously. Images of the body acquired 2 hours after injec tion. LIMITATIONS: Study limited due to the patient's obesity with anterior spot images only. FINDINGS: Normal distribution of activity. Activity in the spleen and bone marrow. No abnormal foc al areas of uptake. IMPRESSION: NEGATIVE WHITE BLOOD CELL STUDY. NO ABNORMAL FOCAL AREAS OF UPTAKE. TECHNICAL DOCUMENTATION: JOB ID: [id number] 2010 [employer]- All Rights Reserved Reading location - IP/workstation name: [email or web address]
[2020-02-18 10:36] LABS: INTERNATIONAL RATION (INR) 1.21; PROTHROMBIN TIME 15.5 SEC (11.4-15.4)
[2020-02-18 11:01] LABS: D-DIMER 6.13 ug/mL (0.00-0.50)
[2020-02-18] MEDS: ZINC SULFATE 220 MG CAPSULE PO SCH (11:19)
[2020-02-18] MEDS: LACTOBACILLUS ACIDOPHILUS 250 MG TAB PO SCH ×2 (11:20→17:46)
[2020-02-18] MEDS: GABAPENTIN 300 MG CAPSULE PO SCH ×3 (11:20→17:43)
[2020-02-18] MEDS: CHOLECALCIFEROL (D3) 1,000 UNIT (25 MCG) TABLET PO SCH (11:20)
[2020-02-18] MEDS: SERTRALINE HCL 50 MG TABLET PO SCH (11:20)
[2020-02-18] MEDS: FERROUS SULFATE 325 MG TABLET PO SCH (11:20)
[2020-02-18] MEDS: ACETAMINOPHEN 325 MG TABLET PO SCH ×3 (11:20→17:47)
[2020-02-18] MEDS: ENOXAPARIN SODIUM INJ 40 MG/0.4 ML DISP.SYRIN SUBCUT SCH (11:21)
[2020-02-18] MEDS: CEFTRIAXONE 2 GM/D5W RTU 2 GM/50 ML RTUPB IV SCH ×2 (11:21→21:51)
[2020-02-18] MEDS: FLUTICASONE/VILANTEROL 100-25 MCG/DOSE IH SCH (11:21)
[2020-02-18] MEDS: ASCORBIC ACID 500 MG TABLET PO SCH ×2 (11:35→18:11)
--- NOTE | 2020-02-18 14:48 | RADIOLOGY REPORT (SQ) ---
EXAM DESCRIPTION: CHEST SINGLE VIEW IMAGES COMPLETED DATE/TIME: 02/18/2020 2:25 pm REASON FOR STUDY: post left thoracentesis COMPARISON: 02/08/2020. EXAM PARAMETERS: NUMBER OF VIEWS: One view. TECHNIQUE: Single frontal radiographic view of the chest acquired. RADIATION DOSE: NA LIMITATIONS: None. FINDINGS: LUNGS AND PLEURA: Diffuse airspace disease in the right lung which appears to have worsene d. Decrease in the left pleural effusion following thoracentesis. No pneumothorax. MEDIASTINUM AND HILAR STRUCTURES: No masses. Contour normal. HEART AND VASCULAR STRUCTURES: Heart normal in size. Normal vasculature. BONES: No acute findings. HARDWARE: PICC line. OTHER: No other significant finding. IMPRESSION: DECREASE IN THE LEFT PLEURAL EFFUSION FOLLOWING THORACENTESIS. NO PNEUMOTHORAX. AIRSPA CE DISEASE IN THE RIGHT LUNG APPEARS TO HAVE WORSENED. TECHNICAL DOCUMENTATION: JOB ID: [id number] 2010 [employer]- All Rights Reserved Reading location - IP/workstation name: [email or web address]
[2020-02-18] MEDS: NORMAL SALINE 10 ML SDV (SCHEDULED) IV SCH ×2 (15:31→21:53)
--- NOTE | 2020-02-18 15:42 | RADIOLOGY REPORT (SQ) ---
EXAM DESCRIPTION: U/S THORACENTESIS WITH IMAGING IMAGES COMPLETED DATE/TIME: 02/18/2020 2:41 pm REASON FOR STUDY: large pleural effusion COMPARISON: None. LIMITATIONS: None. PROCEDURE: Procedure, risks, benefit, and alternative explained to patient who then gave written con sent. The posterior left chest wall was marked using ultrasound guidance. A time-out was called for correct marking verification. Chest prepped and draped using sterile technique. Local anesthesia ac hieved using 10 ml of 1% lidocaine injection. A 6fr Safe-T- Centesis set was introduced into the lef t pleural space. Fluid was aspirated. The catheter was removed and the entry site was covered with sterile bandage. No immediate complications noted. Images acquired during the procedure were stored on PACS. FINDINGS: ENTRY SITE: posterior left chest. FLUID VOLUME: 650 mL FLUID ANALYSIS: Like shiloh. OTHER: Therapeutic only IMPRESSION: SUCCESSFUL THORACENTESIS USING ULTRASOUND GUIDANCE. COMMENT: Patient medication list reviewed: Yes- Quality ID# [id number]:Eligible professional attests to doc umenting in the medical record they obtained, updated, or reviewed the patient's current medications. TECHNICAL DOCUMENTATION: JOB ID: [id number] 2010 [employer]- All Rights Reserved Reading location - IP/workstation name: [email or web address]
--- NOTE | 2020-02-18 16:30 | PDOC PROGRESS REPORT ---
Subjective Date:: 02/18/20 Subjective:: SARAHI ST is a 34 year old female with history of morbid obesity, FROYLAN, ast hma, diabetes mellitus, hypertension, anxiety and depression, who presents to the hospital with complaints of diffuse abdominal pain. The pain started 1 day ago. She describes it as aching pain which lasts several minutes. States it occurs every 15 minutes. Feels like a cramping sensation. Denies prior episodes. No notable aggravating or alleviating factors. Denies any relationship with food consumption. Admits to nausea but no vomiting. Denies any vaginal discharge. Denies any urinary symptoms.. Last sexual activity was in 2015. Preceding onset of this symptoms, she states she ate out on Monday. Subsequently became constipated and took a laxative. After that she had a few episodes of diarrhea on Monday and Monday. Pain started on Monday. In the ER, patient received work-up with CT abdomen pelvis without contrast. This incidentally picked up groundglass opacities in patient's lower lungs. Patient also noted to have hypoxia at 90% on room air. She has chronic issues with her breathing and often gets short of breath but is also quite overweight. She has not noted any recent worsening of her breathing. Noted to be febrile in the ER as well. Interval history: 01/23/2020: Patient was seen and examined. She still with high white count. No fever. Complains of abdominal wall pain. 01/24/2020: Patient was seen and examined. White count is improving. No fever. Complains of abdominal wall pain. 01/25/2020: Patient was seen and examined. White count is improving. Afebrile. Improving overall. Repeat cultures still positive for Enterococcus. 01/26/2020: Patient was seen and examined. Had low-grade fever of 100.6 last night. Stable on 4 L of nasal cannula oxygen." 01/27/2020 Still unclear where the source of the patient's infection might be. Per ID, they suspect intra-abdominal source such as the bowel or tract. We will repeat a CT abdomen and this time and on the pelvis as well. This will be done with IV and oral contrast to look for any potential abscesses could have formed along her bowel. She still having vaginal bleeding and states that sometimes she bleeds for an entire month. She does not follow with a [employer] school professional regularly as she does not have insurance. Patient states she feels okay today. MATTHEW is being arranged reportedly. Daptomycin continues. Lower WBC and lower hemoglobin down to 8. Latest blood culture is also positive for Enterococcus, same organism as the previous cultures per micro lab. 01/28/2020 CT abdomen/pelvis with contrast showed possible left renal mass and I have ordered a renal ultrasound to get a closer look at this. Renal ultrasound showed this is likely an abscess rather than a solid tumor. We will need urology opinion and I will give them a call to see if they would like the patient transferred for intervention or if IR would be able to drain this here. Patient remains afebrile. Blood cultures 1/2 growing MRSA. Patient believes the suspected abscess in her left kidney may be the source of her left upper quadrant and left flank pain. 01/29/2020 I called [facility] and spoke with the urologist on staff there and then he called their interventional radiologist had a lengthy discussion about the patient's imaging studies and how this should be addressed. They believe the farzad salcido's renal lesion is likely a phlegmon which may turn into an abscess in the near future. They recommended against attempting to drain this lesion until it becomes an actual liquid abscess. They also noted a lesion in the patient's spleen consistent with septic emboli and similar to the kidney lesion. I believe the patient has showered her organ systems with septic emboli likely from a central source, suspected to be infected endocarditis. MATTHEW was not able to be done as mentioned previously and this will need to be repeated in the near future. We will repeat blood cultures today and if these remain negative we may explore transfer to a CT surgery facility once we can confirm a valvular vegetation on MATTHEW. Patient has no new complaints today. I examined her buttock regions and did not see any open wounds that could be a source for MRSA infection. The patient had mentioned previously having some irritation and possibly an open wound in that area. 01/30/2020 Most recent set of results of blood cultures on 01/26 have now resulted as 1/2 bottles contaminated with coag negative staph, otherwise blood cultures are negative. Patient is continued on daptomycin. Blood cultures drawn yesterday are still pending. Patient states she feels slightly better. Dr. Kimbrough is planning to repeat MATTHEW attempt next week. This is certainly indicated given that she probably has a central source of bloodstream infection showering multiple organs, most likely infected endocarditis. Possible she seeded her heart valves from a skin infection became bacteremia. 01/31/2020 Blood cultures are growing staph species in 1/2 bottles, suspect this may be a contaminant. Patient is having a bit more pain in her left flank and abdomen likely due to the septic emboli in her kidney. She has been using morphine overnight and explained to her that this will not provide lasting pain relief and she should use the Percocet instead and reserve the morphine for breakthrough pain. I also discussed this with the nurse. I have ordered a MATTHEW to be done on Monday assuming Dr. Kimbrough is available for this. I noted she had a positive mycoplasma IgG antibody earlier in the admission she was approp riately treated with a course of azithromycin. Her blood cultures have not grown mycoplasma and this may be simply antibodies from an exposure in the past other than an active infection. D-dimer is higher. We will check PVL BLE to rule out DVT. There is no PE on a recent CTPA. 02/01/2020 Most recent 1/2 blood cultures still growing coag negative staph highly likely a contaminant. If this is the case, patient is to consecutive negative blood culture results from different days. We could say blood is likely cleared of infection as of 01/26. We continue to plan for MATTHEW hopefully on Monday. Order has been placed but the timing of the procedure will be entirely up to Dr. Kimbrough's availability. Patient likely has obesity hypoventilation syndrome and we should not push her oxygen towards 100%. She will likely breathe and feel better overall at a lower O2 saturation around 92% or higher. She is at risk for CO2 retention we do not keep this in mind. 02/02/2020 Patient still having significant left upper quadrant pain likely due to developing splenic abscess. We will repeat a CT abdomen/pelvis with contrast in the next 48 hours to see if this has gone from being a phlegmon to a drainable abscess. Per my discussion with [facility] interventional radiology, they did not recommend attempting to drain any septic emboli unless it had clear evidence of being a liquid abscess. I have added gabapentin to help with the pain and we will continue Percocet and then also morphine for breakthrough pain. Other than that, patient has no new complaints. Will hopefully have MATTHEW done again in the next 48 hours. This is pending Dr. Kimbrough availability. 02/03/2020 Unable to get MATTHEW today due to anesthesia refusing to attempt this again here they stated patient's airway is extremely tenuous and they were barely able to safely intubate the patient previously. Dr. Kimbrough was also concerned after speaking with them that he would likely not have success on the second attempt either. He recommended treating the patient with 6 weeks of IV antibiotics for presumed infective endocarditis. It would be helpful if the patient lost a significant amount of weight over the next 6 weeks as this may assist with the difficult anatomy of her neck. Patient could potentially be discharged home if case management is able to arrange outpatient infusions. She will need a PICC line placed and to have her central line removed. I will place an order for this to be done tomorrow. Patient will need a physician to follow-up her care after she leaves if she continues on IV antibiotics. She will need periodic labs over the next 6 weeks and someone to monitor these. 02/04/20 Patient was seen and examined at bedside. She is still complaining of left sided flank pain which is still likely from septic emboli to her left kidney. I have increased her percocet to q3 hrs and increased her morphine. She got a PICC line today for planned 6 weeks of abx. She is still currently requiring O2 support. Discharge planning still trying to work on setting up home infusion for dapto as well as home O2. Will repeat CT abdomen/pelvis to assess septic emboli to left kidney. 02/05/20 Patient was seen and examined at bedside. Still on her CPAP machine most of the time. Repeat blood culture drawn yesterday still growing Enterococcus. I have touched base with infectious disease regarding this and I was able to speak to Dr. Navarrete. She recommends to talk to the patient about her penicillin allergy possibly switch her over to ceftriaxone and ampicillin regimen since this is much better for Enterococcus. He also recommended to consult CT surgery for her splenic emboli and high suspicion for endocarditis. With her BMI I doubt that he will she will qualify for any surgery but will try to reach out to a CT surgeon tomorrow. We will also ask her about her penicillin allergy. Repeat CT abdomen and pelvis showed grossly stable appearance of the ill-defined area of hypoattenuation along the inferior left kidney. Stable linear area of hypoattenuation within the spleen. Morbid obesity with skin thickening along the pannus suggestive of panniculitis. Moderate left-sided pleural effusion I have changed her pain medications to morphine IR 10 mg every 4 since she claims that she responds more to morphine rather than Percocet. I have stopped her Percocet and her IV morphine. 02/06/20 Patient was seen and examined at bedside. She reports that her pain seems to be much better with the morphine IR however she feels that she is more nauseous with it as well. I have decreased her morphine to 5 mg every 6. I also discussed with her the recent infectious disease recommendation regarding amoxicillin challenge. She stated that she had a reaction to amoxicillin when she was 14 years old when she got it for dental procedure when she developed tongue swelling however she did not report any shortness of breath, no rashes, did not need to go to the emergency room because of severe allergic reaction. Since this remote penicillin allergy happened more than 15 years ago we we have decided to go ahead with challenging her with amoxicillin 50 mg and then observe her for 20 minutes and then full dose 500 mg/h of amoxicillin and observe her for another hour after that. She did not experience any symptoms with the 50 mg of amoxicillin. If she passed a challenge I would likely switch her antibiotics to ceftriaxone, ampicillin to treat her persistent enterococcal bacteremia. 02/07/20 Patient was seen and examined at bedside. Overall feels ok, reports that her oxygen needs from the nasal cannula may be coming down since the removal of pleural effusion yesterday. she is so far tolerating the ceftriaxone/ampicillin regimen. Still reports nausea and headache with the oral morphine so will trial her on [place] instead. She shared that she had a dental procedures a few months ago which she thought might be the source of her Endocarditis since she did not receive any abx. Will plan to repeat her blood cultures in 48 hrs. 02/08/20 Patient was seen and examined at bedside. She denied any new complains, still with pain on left side. Her hgb was noted to be 6.7 but she denies any melena, hematemesis. She was given 1 unit PRBC. Otherwise she is doing about the same. Plan to repeat blood culture on monday.She was complaining of right lower leg pain. Venous doppler ordered to rule out DVT 02/09/20 Patient was seen and examined at bedside. No new complains, remained afebrile. No chest pain, no SOB, still with stable left sided pain. I talked to her about putting PT on consult and she said she would like to try and could come off the CPAP and be on nasal cannula. Repeat blood culture tomorrow morning. hgb 8.0 today. She received 1 unit of PRBC 02/10/20 Patient was seen and examined at bedside. No new complains. She will be assessed by physical therapy today. Repeat blood cultures were drawn today. She has been afebrile al throughout. I have discussed her case with CT surgery PA at [facility] Richard and he stated that they're ability to properly assess her is very limited because she does not have adequate imaging of her presumed endocarditis. She is on Day 4 of Ceftri/ampi regimen and repeat blood cultures were drawn today. 02/17/20 Care resumed today. Reviewed notes of last week. Her blood culture has been negative since 02/15/20. repeat Bcx 02/16/20 showed staph specie growth which she previously grew before and is suspected to be a contaminant. She is currently on D11 of ceftri/ampi. She is scheduled to undergo WBC scan today. repeat CT chest done showed large left pleural effusion. She had a previous thoracentesis 02/06/20 to drain the effusion she had on the same side. She has been afebrile and WBC is normal. 02/18/20 Patient was seen and examined at bedside. She is still on CPAP most of the time over her 5L of Nasal cannula. She underwent tagged WBC scan yesterday which was negative. She underwent repeat thoracentesis today to remove a left pleural effusion which has re accumulated since her last thoracentesis approx 10 days ago. Plan to repeat her blood culture tomorrow and if still growing staph epidermidis will likely need to pull out PICC line and replace it with another. Reason For Visit: HYPOXIA,FEVER Physical Exam Vital Signs: Temp Pulse Resp BP Pulse Ox 97.3 F 102 H 22 H 126/59 H 95 02/18/20 11:58 02/18/20 11:58 02/18/20 11:58 02/18/20 11:58 02/18/20 11:58 Intake & Output 02/17/20 02/18/20 02/19/20 06:59 06:59 06:59 Intake Total 1588 1280 Balance 1588 1280 Weight 180.2 kg 180.2 kg 180.2 kg General appearance: PRESENT: mild distress, morbidly obese Head exam: PRESENT: atraumatic, normocephalic Eye exam: PRESENT: EOMI, PERRLA Mouth exam: PRESENT: moist Neck exam: PRESENT: full ROM Respiratory exam: PRESENT: decreased breath sounds - Left lung field, symmetrical. ABSENT: rhonchi, wheezes Cardiovascular exam: PRESENT: RRR, +S1, +S2 Pulses: PRESENT: +2 pedal pulses bilateral GI/Abdominal exam: PRESENT: normal bowel sounds, soft. ABSENT: rebound, tenderness Extremities exam: PRESENT: full ROM Musculoskeletal exam: PRESENT: full ROM Neurological exam: PRESENT: alert, awake, oriented to person, oriented to place, oriented to time, oriented to situation Psychiatric exam: PRESENT: normal mood Skin exam: PRESENT: normal color Results Laboratory Results: 02/16/20 04:59 02/16/20 04:59 02/16/20 04:59 Blood Blood Culture (PCR) - Final Staphylococcus Species 02/16/20 04:33 Blood Blood Culture (PCR) - Final Staphylococcus Species 02/13/20 09:09 Blood Blood Culture - Final NO GROWTH IN 5 DAYS 02/13/20 09:00 Blood Blood Culture - Final Staphylococcus Epidermidis 01/25/20 01/26/20 16:00 05:33 Creatine Kinase < 20 L 30 Impressions: Chest/Abdomen CTA 01/22/20 00:00 IMPRESSION: 1. No evidence of pulmonary embolus. 2. Scattered mosaic attenuation throughout the lungs possibly secondary to small airway disease or hypoventilatory change. 3. Trace left pleural effusion. Renal Ultrasound 01/28/20 00:00 IMPRESSION: Avascular approximately 3 cm mass off the inferior pole the left kidney. This most likely represents infectious or inflammatory process. PICC Line Insertion 02/04/20 00:00 IMPRESSION: SUCCESSFUL PLACEMENT OF A 5 FR DUAL LUMEN 44 CM PICC IN THE LEFT BASILIC VEIN. Venous Doppler Study 02/09/20 00:00 IMPRESSION: No evidence of DVT or SVT in the visualized veins of the right leg. Limited exam with nonvisualization of the mid/distal superficial femoral and peroneal veins. Abdomen/Pelvis CT 02/13/20 00:00 IMPRESSION: 1. Large left pleural effusion with adjacent consolidation likely representing compressive atelectasis. Small right pleural effusion. 2. Scattered nodular opacities in the right lung are nonspecific in etiology and could be infectious. There is some interstitial opacities/septal thickening which could reflect pulmonary edema. 3. Exam is degraded due to patient body habitus. IMPRESSION: 1. Degraded examination due to patient body habitus. 2. Focal region of hypoattenuation in the inferomedial left kidney is similar in morphology, though may be slightly decreased in size from prior. 3. Slight decrease in size of region of hypoattenuation along the inferolateral spleen, possibly representing a subcapsular fluid collection. Chest CT 02/13/20 00:00 IMPRESSION: 1. Large left pleural effusion with adjacent consolidation likely representing compressive atelectasis. Small right pleural effusion. 2. Scattered nodular opacities in the right lung are nonspecific in etiology and could be infectious. There is some interstitial opacities/septal thickening which could reflect pulmonary edema. 3. Exam is degraded due to patient body habitus. IMPRESSION: 1. Degraded examination due to patient body habitus. 2. Focal region of hypoattenuation in the inferomedial left kidney is similar in morphology, though may be slightly decreased in size from prior. 3. Slight decrease in size of region of hypoattenuation along the inferolateral spleen, possibly representing a subcapsular fluid collection. WBC Scan Nuclear Medicine 02/17/20 00:00 IMPRESSION: NEGATIVE WHITE BLOOD CELL STUDY. NO ABNORMAL FOCAL AREAS OF UPTAKE. Thoracentesis Ultrasound 02/18/20 00:00 IMPRESSION: SUCCESSFUL THORACENTESIS USING ULTRASOUND GUIDANCE. Chest X-Ray 02/18/20 14:09 IMPRESSION: DECREASE IN THE LEFT PLEURAL EFFUSION FOLLOWING THORACENTESIS. NO PNEUMOTHORAX. AIRSPACE DISEASE IN THE RIGHT LUNG APPEARS TO HAVE WORSENED. Assessment and Plan - Diagnosis (1) Bacteremia due to Enterococcus Is this a current diagnosis for this admission?: Yes Plan: - CT abdomen/pelvis with contrast showed likely septic emboli to left kidney and spleen; discussed with urology and IR at [facility], will hold off on draining these unless they turn into an abscess rather than what appears to be phlegmon - cultures: Blood cultures 01/20+ for Enterococcus, 01/21+ for Enterococcus, 01/23+ for Enterococcus, 01/26 blood cultures growing coag negative staph contaminant in 1/2 bottles otherwise clear, 01/28 growing staph epidermidis - 02/03 blood culture again grew enterococcus and staph epidermidis - TTE 01/24/20 cannot exclude vegetation. LV systolic function is normal, EF 55 to 60%, mild MR, moderate AR. -Patient passed amoxicillin challenge -I discussed her case with [facility] surgery department and I was able to speak to their PA Richard and unfortunately there is that their ability to help her is limited by the fact that she does not have adequate imaging to properly confirm endocarditis and assess valvular dysfunction. - on ceftri/ampi -negative blood culture 02/11/20. repeat Blood cx 02/16/20 grew staph specie which was thought to be a contaminant. If we start the 6 week count on her last negative blood culture, her last day of abx will be Mar 24 to complete 6 weeks of treatment - Patient has a PICC line. Previous physician stated she may need a line holiday. will repeat blood culture tomorrow if still persistently positive will need to replace her PICC line (2) Septic embolism Is this a current diagnosis for this admission?: Yes Plan: -Repeat CT abdomen/pelvis with IV and oral contrast showed suspected left renal mass Renal ultrasound showed likely left renal abscess rather than solid mass Had urology at outside hospital to review imaging to decide if suspected left renal abscess can be drained by IR or if the patient needs to be transferred for surgical intervention; they recommended continued IV antibiotics and repeat imaging in the next few weeks if patient worsens clinically as patient may need abscesses drained. -CT abdomen repeat showed stable appearance of previously noted splenic and renal infarcts/abscess - CT chest large left pleural effusion with adjacent consolidation likely representing compressive atelectasis. Small right pleural effusion. Scattered nodular opacities in the right lung are nonspecific in etiology could be infectious. -ceftri/ampi started 02/06/20. last negative blood culture so march 24 will be her last dose of abx to complete 6 weeks of abx (3) Acute on chronic respiratory failure with hypoxemia Is this a current diagnosis for this admission?: Yes Plan: - still requiring O2 support, was not previously on o2 at home - COVID negative -CT showed moderate-sized pleural effusion on 02/05/20. repeat Ct chest showed reaccumulation of pleural fluid left -Status post thoracentesis 02/06/20 was able to remove approximately 800 mL of fluid sent for analysis. - s/p 2nd thoracentesis 02/18/20 drained 650 ml [place] colored fluid, sent for analysis -1st Pleural fluid analysis culture and Gram stain negative - Awaiting 2nd Pleural fluid analysis - +ve lights criteria Exudative first Pleural fluid analysis. Likely from ongoing infection - continue CPAP PRN and at night (4) Pleural effusion due to bacterial infection Is this a current diagnosis for this admission?: Yes Plan: - had a previous thoracentesis 02/06/20 exudative by Lights criteria, cultures were negative. Cytology showed reactive cells, no malignancy - repeat CT chest showed that this has reaccumulated - s/p repeat thoracentesis 02/18/20. drained 650 ml [place] fluid. Sent for analysis (5) Normocytic anemia Is this a current diagnosis for this admission?: Yes Plan: - Hgb 6.7>8.0>7.7 post transfusion likely due to chronic medical condition on top of blood draws - I do not think she has any active bleeding - s/p 1 u PRBC (6) FROYLAN on CPAP Is this a current diagnosis for this admission?: Yes Plan: nocturnal cpap. She mainly wears this because she is sleeping al throughout the day otherwise she feels she can do PT without it. (7) Panniculitis Is this a current diagnosis for this admission?: Yes Plan: -Antibiotic switch from Dapto to ceftriaxone/ampicillin. (8) Diabetes mellitus type 2 in obese Is this a current diagnosis for this admission?: Yes Plan: - continue SSI, hypoglycemia protocol and accucheck (9) Sepsis Qualifiers: Sepsis type: sepsis due to unspecified organism Sepsis acute organ dysfunction status: without acute organ dysfunction Qualified Code(s): A41.9 - Sepsis, unspecified organism Is this a current diagnosis for this admission?: Yes Plan: RESOLVED - Leukocytosis, febrile, hypoxic, tachycardic. - source likely endocarditis -Dapto switched to ceftriaxone/ampicillin started 02/06/20 (10) Morbid obesity with BMI of 70 and over, adult Is this a current diagnosis for this admission?: Yes Plan: - BMI over 70 - advised diet and lifestyle modification (11) Essential hypertension Is this a current diagnosis for this admission?: Yes (12) Menometrorrhagia Is this a current diagnosis for this admission?: Yes (13) Chronic pain Qualifiers: Chronic pain type: other chronic pain Qualified Code(s): G89.29 - Other chronic pain Is this a current diagnosis for this admission?: Yes Plan: - on morphine and norco (14) Elevated d-dimer Is this a current diagnosis for this admission?: Yes Plan: likely due to high inflammatory state caused by morbid obesity and infection - BLE duplex US this admission was negative for DVT - CTA chest this admission negative for PE (15) Difficult airway Qualifiers: Encounter type: subsequent encounter Qualified Code(s): T88.4XXD - Failed or difficult intubation, subsequent encounter Is this a current diagnosis for this admission?: Yes Plan: due to morbid obesity, a MATTHEW was technically difficult and was unable to be performed (attempted but anesthesia was unable to secure her airway). A second attempt at a MATTHEW was planned on 02/02 but anesthesia declined to attempt this again as they stated patient's airway is extremely tenuous and they were barely able to safely intubate the patient previously. Cardiology, Dr. Kimbrough, was also concerned after speaking with them that he would likely not have success on the second attempt either. 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 It would be helpful if the patient lost a significant amount of weight over the next 6 weeks as this may assist with the difficult anatomy of her neck. - will discuss again with cardiology given persistent bacteremia and inability to transfer to another site without MATTHEW, we may need to re-attempt MATTHEW here at [facility] again this hospitalization - Time Time Spent with patient: 25-34 minutes Medications reviewed and adjusted accordingly: Yes Anticipated Discharge Disposition: Home, Self Care Anticipated Discharge Timeframe: tbd
--- NOTE | 2020-02-18 16:34 | RADIOLOGY REPORT (SQ) ---
EXAM DESCRIPTION: CHEST SINGLE VIEW IMAGES COMPLETED DATE/TIME: 02/18/2020 4:23 pm REASON FOR STUDY: 2 hours post thoracentesis left COMPARISON: 02/18/2020 1416 hours. EXAM PARAMETERS: NUMBER OF VIEWS: One view. TECHNIQUE: Single frontal radiographic view of the chest acquired. RADIATION DOSE: NA LIMITATIONS: None. FINDINGS: LUNGS AND PLEURA: No pneumothorax. Again seen is airspace disease in the right lung. MEDIASTINUM AND HILAR STRUCTURES: No masses. Contour normal. HEART AND VASCULAR STRUCTURES: Cardiomegaly unchanged. Normal vasculature. BONES: No acute findings. HARDWARE: None in the chest. OTHER: No other significant finding. IMPRESSION: NO PNEUMOTHORAX ON THE IMAGE ACQUIRED 2 HOURS AFTER THORACENTESIS. NO CHANGE IN APPEARA NCE OF THE CHEST. TECHNICAL DOCUMENTATION: JOB ID: [id number] 2010 [employer]- All Rights Reserved Reading location - IP/workstation name: [email or web address]
[2020-02-18] MEDS: INSULIN GLARGINE,HUM.REC.ANLOG 1,000 UNIT/10 ML VIAL SUBCUT SCH (21:50)
[2020-02-18] MEDS: PRAZOSIN HCL 1 MG PO SCH (22:07)
[2020-02-19] MEDS: ALBUTEROL SULFATE HFA (90 MCG/PUFF) 8 GM MDI IH SCH ×4 (02:11→17:38)
[2020-02-19] MEDS: AMPICILLIN SODIUM 2 GM in NORMAL SALINE 100 ML IV SCH ×6 (03:54→21:40)
[2020-02-19] MEDS: MORPHINE SULFATE 10 MG/ML INJ IV PRN ×2 (05:16→21:37)
[2020-02-19] MEDS: HYDROXYZINE PAMOATE 50 MG CAPSULE PO SCH ×3 (05:17→21:39)
[2020-02-19] MEDS: PANTOPRAZOLE SODIUM 40 MG TABLET.DR PO SCH (05:17)
[2020-02-19 06:27] LABS: HEMATOCRIT 25.8 % (36.0-47.0); MEAN CORPUSCULAR HEMOGLOBIN 25.8 pg (27.0-33.4); MEAN CORPUSCULAR HGB CONC 29.7 g/dL (32.0-36.0); MEAN CORPUSCULAR VOLUME 87 fl (80-97); PLATELET COUNT 313 10^3/uL (150-450); RED BLOOD COUNT 2.97 10^6/uL (3.72-5.28); RED CELL DISTRIBUTION WIDTH 18.6 % (11.5-14.0); WHITE BLOOD COUNT 10.2 10^3/uL (4.0-10.5)
[2020-02-19 06:35] LABS: ALBUMIN 3.2 g/dL (3.5-5.0); ALKALINE PHOSPHATASE 165 U/L (38-126); ANION GAP 8 (5-19); ASPARTATE AMINO TRANSFERASE 21 U/L (14-36); BILIRUBIN,DIRECT 0.4 mg/dL (0.0-0.4); BILIRUBIN,TOTAL 0.7 mg/dL (0.2-1.3); BLOOD UREA NITROGEN 12 mg/dL (7-20); CALCIUM 8.8 mg/dL (8.4-10.2); CARBON DIOXIDE 29 mmol/L (22-30); CHLORIDE 101 mmol/L (98-107); GLUCOSE 119 mg/dL (75-110); POTASSIUM 4.6 mmol/L (3.6-5.0)
[2020-02-19 06:50] LABS: ABSOLUTE MONOCYTES # (MANUAL) 0.1 10^3/uL (0.1-1.4); BASOPHILS % (MANUAL) 0 % (0-2); EOSINOPHILS % (MANUAL) 3 % (0-6); LYMPHOCYTES % (MANUAL) 10 % (13-45); MONOCYTES % (MANUAL) 1 % (3-13); NUCLEATED RED BLOOD CELLS 1 /100 WBC (0); SEGMENTED NEUTROPHILS % (MAN) 86 % (42-78); TOTAL CELLS COUNTED 100
[2020-02-19 06:51] LABS: ANISOCYTOSIS 2+; PLATELET COMMENT ADEQUATE; POLYCHROMASIA 1+
[2020-02-19 06:53] LABS: HEMOGLOBIN 7.7 g/dL (12.0-15.5)
[2020-02-19] MEDS: OXYCODONE HCL IR 5 MG TABLET PO PRN ×2 (07:35→14:20)
[2020-02-19] MEDS: INSULIN LISPRO 100 UNIT/ML 3 ML VIAL SUBCUT SCH ×4 (10:52→21:39)
[2020-02-19] MEDS: CEFTRIAXONE 2 GM/D5W RTU 2 GM/50 ML RTUPB IV SCH ×2 (11:11→21:40)
[2020-02-19] MEDS: SERTRALINE HCL 50 MG TABLET PO SCH (11:12)
[2020-02-19] MEDS: ACETAMINOPHEN 325 MG TABLET PO SCH ×3 (11:13→17:16)
[2020-02-19] MEDS: ASCORBIC ACID 500 MG TABLET PO SCH ×2 (11:13→17:16)
[2020-02-19] MEDS: CHOLECALCIFEROL (D3) 1,000 UNIT (25 MCG) TABLET PO SCH (11:13)
[2020-02-19] MEDS: LACTOBACILLUS ACIDOPHILUS 250 MG TAB PO SCH ×2 (11:14→17:17)
[2020-02-19] MEDS: FERROUS SULFATE 325 MG TABLET PO SCH (11:14)
[2020-02-19] MEDS: ZINC SULFATE 220 MG CAPSULE PO SCH (11:14)
[2020-02-19] MEDS: GABAPENTIN 300 MG CAPSULE PO SCH ×3 (11:14→17:16)
[2020-02-19] MEDS: ENOXAPARIN SODIUM INJ 40 MG/0.4 ML DISP.SYRIN SUBCUT SCH (11:15)
[2020-02-19] MEDS: FLUTICASONE/VILANTEROL 100-25 MCG/DOSE IH SCH (11:19)
[2020-02-19] MEDS: NORMAL SALINE 10 ML SDV (SCHEDULED) IV SCH ×2 (11:19→21:50)
--- NOTE | 2020-02-19 15:46 | PDOC PROGRESS REPORT ---
Subjective Date:: 02/19/20 Subjective:: SARAHI ST is a 34 year old female with history of morbid obesity, FROYLAN, ast hma, diabetes mellitus, hypertension, anxiety and depression, who presents to the hospital with complaints of diffuse abdominal pain. The pain started 1 day ago. She describes it as aching pain which lasts several minutes. States it occurs every 15 minutes. Feels like a cramping sensation. Denies prior episodes. No notable aggravating or alleviating factors. Denies any relationship with food consumption. Admits to nausea but no vomiting. Denies any vaginal discharge. Denies any urinary symptoms.. Last sexual activity was in 2015. Preceding onset of this symptoms, she states she ate out on Monday. Subsequently became constipated and took a laxative. After that she had a few episodes of diarrhea on Monday and Monday. Pain started on Monday. In the ER, patient received work-up with CT abdomen pelvis without contrast. This incidentally picked up groundglass opacities in patient's lower lungs. Patient also noted to have hypoxia at 90% on room air. She has chronic issues with her breathing and often gets short of breath but is also quite overweight. She has not noted any recent worsening of her breathing. Noted to be febrile in the ER as well. Interval history: 01/23/2020: Patient was seen and examined. She still with high white count. No fever. Complains of abdominal wall pain. 01/24/2020: Patient was seen and examined. White count is improving. No fever. Complains of abdominal wall pain. 01/25/2020: Patient was seen and examined. White count is improving. Afebrile. Improving overall. Repeat cultures still positive for Enterococcus. 01/26/2020: Patient was seen and examined. Had low-grade fever of 100.6 last night. Stable on 4 L of nasal cannula oxygen." 01/27/2020 Still unclear where the source of the patient's infection might be. Per ID, they suspect intra-abdominal source such as the bowel or tract. We will repeat a CT abdomen and this time and on the pelvis as well. This will be done with IV and oral contrast to look for any potential abscesses could have formed along her bowel. She still having vaginal bleeding and states that sometimes she bleeds for an entire month. She does not follow with a profile saw operator regularly as she does not have insurance. Patient states she feels okay today. MATTHEW is being arranged reportedly. Daptomycin continues. Lower WBC and lower hemoglobin down to 8. Latest blood culture is also positive for Enterococcus, same organism as the previous cultures per micro lab. 01/28/2020 CT abdomen/pelvis with contrast showed possible left renal mass and I have ordered a renal ultrasound to get a closer look at this. Renal ultrasound showed this is likely an abscess rather than a solid tumor. We will need urology opinion and I will give them a call to see if they would like the patient transferred for intervention or if IR would be able to drain this here. Patient remains afebrile. Blood cultures 1/2 growing MRSA. Patient believes the suspected abscess in her left kidney may be the source of her left upper quadrant and left flank pain. 01/29/2020 I called [facility] and spoke with the urologist on staff there and then he called their interventional radiologist had a lengthy discussion about the patient's imaging studies and how this should be addressed. They believe the farzad salcido's renal lesion is likely a phlegmon which may turn into an abscess in the near future. They recommended against attempting to drain this lesion until it becomes an actual liquid abscess. They also noted a lesion in the patient's spleen consistent with septic emboli and similar to the kidney lesion. I believe the patient has showered her organ systems with septic emboli likely from a central source, suspected to be infected endocarditis. MATTHEW was not able to be done as mentioned previously and this will need to be repeated in the near future. We will repeat blood cultures today and if these remain negative we may explore transfer to a CT surgery facility once we can confirm a valvular vegetation on MATTHEW. Patient has no new complaints today. I examined her buttock regions and did not see any open wounds that could be a source for MRSA infection. The patient had mentioned previously having some irritation and possibly an open wound in that area. 01/30/2020 Most recent set of results of blood cultures on 01/26 have now resulted as 1/2 bottles contaminated with coag negative staph, otherwise blood cultures are negative. Patient is continued on daptomycin. Blood cultures drawn yesterday are still pending. Patient states she feels slightly better. Dr. Kimbrough is planning to repeat MATTHEW attempt next week. This is certainly indicated given that she probably has a central source of bloodstream infection showering multiple organs, most likely infected endocarditis. Possible she seeded her heart valves from a skin infection became bacteremia. 01/31/2020 Blood cultures are growing staph species in 1/2 bottles, suspect this may be a contaminant. Patient is having a bit more pain in her left flank and abdomen likely due to the septic emboli in her kidney. She has been using morphine overnight and explained to her that this will not provide lasting pain relief and she should use the Percocet instead and reserve the morphine for breakthrough pain. I also discussed this with the nurse. I have ordered a MATTHEW to be done on Monday assuming Dr. Kimbrough is available for this. I noted she had a positive mycoplasma IgG antibody earlier in the admission she was approp riately treated with a course of azithromycin. Her blood cultures have not grown mycoplasma and this may be simply antibodies from an exposure in the past other than an active infection. D-dimer is higher. We will check PVL BLE to rule out DVT. There is no PE on a recent CTPA. 02/01/2020 Most recent 1/2 blood cultures still growing coag negative staph highly likely a contaminant. If this is the case, patient is to consecutive negative blood culture results from different days. We could say blood is likely cleared of infection as of 01/26. We continue to plan for MATTHEW hopefully on Monday. Order has been placed but the timing of the procedure will be entirely up to Dr. Kimbrough's availability. Patient likely has obesity hypoventilation syndrome and we should not push her oxygen towards 100%. She will likely breathe and feel better overall at a lower O2 saturation around 92% or higher. She is at risk for CO2 retention we do not keep this in mind. 02/02/2020 Patient still having significant left upper quadrant pain likely due to developing splenic abscess. We will repeat a CT abdomen/pelvis with contrast in the next 48 hours to see if this has gone from being a phlegmon to a drainable abscess. Per my discussion with [facility] interventional radiology, they did not recommend attempting to drain any septic emboli unless it had clear evidence of being a liquid abscess. I have added gabapentin to help with the pain and we will continue Percocet and then also morphine for breakthrough pain. Other than that, patient has no new complaints. Will hopefully have MATTHEW done again in the next 48 hours. This is pending Dr. Kimbrough availability. 02/03/2020 Unable to get MATTHEW today due to anesthesia refusing to attempt this again here they stated patient's airway is extremely tenuous and they were barely able to safely intubate the patient previously. Dr. Kimbrough was also concerned after speaking with them that he would likely not have success on the second attempt either. He recommended treating the patient with 6 weeks of IV antibiotics for presumed infective endocarditis. It would be helpful if the patient lost a significant amount of weight over the next 6 weeks as this may assist with the difficult anatomy of her neck. Patient could potentially be discharged home if case management is able to arrange outpatient infusions. She will need a PICC line placed and to have her central line removed. I will place an order for this to be done tomorrow. Patient will need a physician to follow-up her care after she leaves if she continues on IV antibiotics. She will need periodic labs over the next 6 weeks and someone to monitor these. 02/04/20 Patient was seen and examined at bedside. She is still complaining of left sided flank pain which is still likely from septic emboli to her left kidney. I have increased her percocet to q3 hrs and increased her morphine. She got a PICC line today for planned 6 weeks of abx. She is still currently requiring O2 support. Discharge planning still trying to work on setting up home infusion for dapto as well as home O2. Will repeat CT abdomen/pelvis to assess septic emboli to left kidney. 02/05/20 Patient was seen and examined at bedside. Still on her CPAP machine most of the time. Repeat blood culture drawn yesterday still growing Enterococcus. I have touched base with infectious disease regarding this and I was able to speak to Dr. Navarrete. She recommends to talk to the patient about her penicillin allergy possibly switch her over to ceftriaxone and ampicillin regimen since this is much better for Enterococcus. He also recommended to consult CT surgery for her splenic emboli and high suspicion for endocarditis. With her BMI I doubt that he will she will qualify for any surgery but will try to reach out to a CT surgeon tomorrow. We will also ask her about her penicillin allergy. Repeat CT abdomen and pelvis showed grossly stable appearance of the ill-defined area of hypoattenuation along the inferior left kidney. Stable linear area of hypoattenuation within the spleen. Morbid obesity with skin thickening along the pannus suggestive of panniculitis. Moderate left-sided pleural effusion I have changed her pain medications to morphine IR 10 mg every 4 since she claims that she responds more to morphine rather than Percocet. I have stopped her Percocet and her IV morphine. 02/06/20 Patient was seen and examined at bedside. She reports that her pain seems to be much better with the morphine IR however she feels that she is more nauseous with it as well. I have decreased her morphine to 5 mg every 6. I also discussed with her the recent infectious disease recommendation regarding amoxicillin challenge. She stated that she had a reaction to amoxicillin when she was 14 years old when she got it for dental procedure when she developed tongue swelling however she did not report any shortness of breath, no rashes, did not need to go to the emergency room because of severe allergic reaction. Since this remote penicillin allergy happened more than 15 years ago we we have decided to go ahead with challenging her with amoxicillin 50 mg and then observe her for 20 minutes and then full dose 500 mg/h of amoxicillin and observe her for another hour after that. She did not experience any symptoms with the 50 mg of amoxicillin. If she passed a challenge I would likely switch her antibiotics to ceftriaxone, ampicillin to treat her persistent enterococcal bacteremia. 02/07/20 Patient was seen and examined at bedside. Overall feels ok, reports that her oxygen needs from the nasal cannula may be coming down since the removal of pleural effusion yesterday. she is so far tolerating the ceftriaxone/ampicillin regimen. Still reports nausea and headache with the oral morphine so will trial her on Flushing instead. She shared that she had a dental procedures a few months ago which she thought might be the source of her Endocarditis since she did not receive any abx. Will plan to repeat her blood cultures in 48 hrs. 02/08/20 Patient was seen and examined at bedside. She denied any new complains, still with pain on left side. Her hgb was noted to be 6.7 but she denies any melena, hematemesis. She was given 1 unit PRBC. Otherwise she is doing about the same. Plan to repeat blood culture on monday.She was complaining of right lower leg pain. Venous doppler ordered to rule out DVT 02/09/20 Patient was seen and examined at bedside. No new complains, remained afebrile. No chest pain, no SOB, still with stable left sided pain. I talked to her about putting PT on consult and she said she would like to try and could come off the CPAP and be on nasal cannula. Repeat blood culture tomorrow morning. hgb 8.0 today. She received 1 unit of PRBC 02/10/20 Patient was seen and examined at bedside. No new complains. She will be assessed by physical therapy today. Repeat blood cultures were drawn today. She has been afebrile al throughout. I have discussed her case with CT surgery PA at [facility] Richard and he stated that they're ability to properly assess her is very limited because she does not have adequate imaging of her presumed endocarditis. She is on Day 4 of Ceftri/ampi regimen and repeat blood cultures were drawn today. 02/17/20 Care resumed today. Reviewed notes of last week. Her blood culture has been negative since 02/15/20. repeat Bcx 02/16/20 showed staph specie growth which she previously grew before and is suspected to be a contaminant. She is currently on D11 of ceftri/ampi. She is scheduled to undergo WBC scan today. repeat CT chest done showed large left pleural effusion. She had a previous thoracentesis 02/06/20 to drain the effusion she had on the same side. She has been afebrile and WBC is normal. 02/18/20 Patient was seen and examined at bedside. She is still on CPAP most of the time over her 5L of Nasal cannula. She underwent tagged WBC scan yesterday which was negative. She underwent repeat thoracentesis today to remove a left pleural effusion which has re accumulated since her last thoracentesis approx 10 days ago. Plan to repeat her blood culture tomorrow and if still growing staph epidermidis will likely need to pull out PICC line and replace it with another. 02/19/20 Patient was seen and examined at bedside. She reports that her breathing is much better after thoracentesis. Repeat blood cultures drawn today. She is otherwise stable. Reason For Visit: HYPOXIA,FEVER Physical Exam Vital Signs: Temp Pulse Resp BP Pulse Ox 98.4 F 106 H 18 100/65 92 02/19/20 07:44 02/19/20 02:00 02/18/20 23:35 02/18/20 23:35 02/18/20 23:35 Intake & Output 02/18/20 02/19/20 02/20/20 06:59 06:59 06:59 Intake Total 1280 600 150 Balance 1280 600 150 Weight 180.2 kg 180.2 kg General appearance: PRESENT: mild distress, morbidly obese Head exam: PRESENT: atraumatic, normocephalic Eye exam: PRESENT: EOMI, PERRLA Mouth exam: PRESENT: moist Neck exam: PRESENT: full ROM Respiratory exam: PRESENT: decreased breath sounds - Left lower lung field Cardiovascular exam: PRESENT: RRR, +S1, +S2 Pulses: PRESENT: +2 pedal pulses bilateral GI/Abdominal exam: PRESENT: normal bowel sounds, soft. ABSENT: rebound, tenderness Extremities exam: PRESENT: full ROM Musculoskeletal exam: PRESENT: full ROM Neurological exam: PRESENT: alert, awake, oriented to person, oriented to place, oriented to time, oriented to situation Skin exam: PRESENT: normal color Results Laboratory Results: 02/19/20 04:30 02/19/20 04:30 02/19/20 02/19/20 04:30 04:30 WBC 10.2 RBC 2.97 L Hgb 7.7 L Hct 25.8 L MCV 87 MCH 25.8 L MCHC 29.7 L RDW 18.6 H Plt Count 313 Seg Neutrophils % Not Reportable Sodium 138.3 Potassium 4.6 Chloride 101 Carbon Dioxide 29 Anion Gap 8 BUN 12 Creatinine 0.84 Est GFR ( Amer) > 60 Glucose 119 H Calcium 8.8 Total Bilirubin 0.7 AST 21 Alkaline Phosphatase 165 H Total Protein 7.0 Albumin 3.2 L 02/16/20 04:33 Blood Blood Culture (PCR) - Final Staphylococcus Species 02/16/20 04:33 Blood Blood Culture - Final Staphylococcus Haemolyticus 02/16/20 04:59 Blood Blood Culture (PCR) - Final Staphylococcus Species 02/16/20 04:59 Blood Blood Culture - Final Staphylococcus Haemolyticus 02/14/20 04:58 Blood Blood Culture - Final NO GROWTH IN 5 DAYS 02/14/20 04:30 Blood Blood Culture - Final NO GROWTH IN 5 DAYS 01/25/20 01/26/20 16:00 05:33 Creatine Kinase < 20 L 30 Impressions: Chest/Abdomen CTA 01/22/20 00:00 IMPRESSION: 1. No evidence of pulmonary embolus. 2. Scattered mosaic attenuation throughout the lungs possibly secondary to small airway disease or hypoventilatory change. 3. Trace left pleural effusion. Renal Ultrasound 01/28/20 00:00 IMPRESSION: Avascular approximately 3 cm mass off the inferior pole the left kidney. This most likely represents infectious or inflammatory process. PICC Line Insertion 02/04/20 00:00 IMPRESSION: SUCCESSFUL PLACEMENT OF A 5 FR DUAL LUMEN 44 CM PICC IN THE LEFT BASILIC VEIN. Venous Doppler Study 02/09/20 00:00 IMPRESSION: No evidence of DVT or SVT in the visualized veins of the right leg. Limited exam with nonvisualization of the mid/distal superficial femoral and peroneal veins. Abdomen/Pelvis CT 02/13/20 00:00 IMPRESSION: 1. Large left pleural effusion with adjacent consolidation likely representing compressive atelectasis. Small right pleural effusion. 2. Scattered nodular opacities in the right lung are nonspecific in etiology and could be infectious. There is some interstitial opacities/septal thickening which could reflect pulmonary edema. 3. Exam is degraded due to patient body habitus. IMPRESSION: 1. Degraded examination due to patient body habitus. 2. Focal region of hypoattenuation in the inferomedial left kidney is similar in morphology, though may be slightly decreased in size from prior. 3. Slight decrease in size of region of hypoattenuation along the inferolateral spleen, possibly representing a subcapsular fluid collection. Chest CT 02/13/20 00:00 IMPRESSION: 1. Large left pleural effusion with adjacent consolidation likely representing compressive atelectasis. Small right pleural effusion. 2. Scattered nodular opacities in the right lung are nonspecific in etiology and could be infectious. There is some interstitial opacities/septal thickening which could reflect pulmonary edema. 3. Exam is degraded due to patient body habitus. IMPRESSION: 1. Degraded examination due to patient body habitus. 2. Focal region of hypoattenuation in the inferomedial left kidney is similar in morphology, though may be slightly decreased in size from prior. 3. Slight decrease in size of region of hypoattenuation along the inferolateral spleen, possibly representing a subcapsular fluid collection. WBC Scan Nuclear Medicine 02/17/20 00:00 IMPRESSION: NEGATIVE WHITE BLOOD CELL STUDY. NO ABNORMAL FOCAL AREAS OF UPTAKE. Thoracentesis Ultrasound 02/18/20 00:00 IMPRESSION: SUCCESSFUL THORACENTESIS USING ULTRASOUND GUIDANCE. Chest X-Ray 02/18/20 16:10 IMPRESSION: NO PNEUMOTHORAX ON THE IMAGE ACQUIRED 2 HOURS AFTER THORACENTESIS. NO CHANGE IN APPEARANCE OF THE CHEST. Assessment and Plan - Diagnosis (1) Bacteremia due to Enterococcus Is this a current diagnosis for this admission?: Yes Plan: - CT abdomen/pelvis with contrast showed likely septic emboli to left kidney and spleen; discussed with urology and IR at [facility], will hold off on draining these unless they turn into an abscess rather than what appears to be phlegmon - cultures: Blood cultures 01/20+ for Enterococcus, 01/21+ for Enterococcus, 01/23+ for Enterococcus, 01/26 blood cultures growing coag negative staph contaminant in 1/2 bottles otherwise clear, 01/28 growing staph epidermidis - 02/03 blood culture again grew enterococcus and staph epidermidis - TTE 01/24/20 cannot exclude vegetation. LV systolic function is normal, EF 55 to 60%, mild MR, moderate AR. -Patient passed amoxicillin challenge -I discussed her case with [facility] surgery department and I was able to speak to their PA Richard and unfortunately there is that their ability to help her is limited by the fact that she does not have adequate imaging to properly confirm endocarditis and assess valvular dysfunction. - on ceftri/ampi -negative blood culture 02/11/20. repeat Blood cx 02/16/20 grew staph specie which was thought to be a contaminant. If we start the 6 week count on her last negative blood culture, her last day of abx will be Mar 24 to complete 6 weeks of treatment - Patient has a PICC line. Previous physician stated she may need a line holiday. will repeat blood culture tomorrow if still persistently positive will need to replace her PICC line. Will await blood cultures drawn 02/19/20 (2) Suspected endocarditis Is this a current diagnosis for this admission?: Yes Plan: - highly suspecting given enterococcal bacteremia, septic infarct to spleen and kidney - TTE done 01/23 showed increased velocity across the aortic valve moderate amou nt of aortic regurgitation cannot totally exclude vegetation. - MATTHEW was attempted twice but due to her body habitus anesthesia has found it very difficult to secure her airway - she received several days of dapto before being switched to ceftri/ampi on 02/16/20 after passing the amoxicillin challenge - Last negative blood culture for enterococcus was 02/11/20. - I have spoken to Richard MCFADDEN for [facility] CT surgery however they cannot give any recommendations since her MATTHEW has not been done therefore valve dysfunction is not completely evaluated. - ID on board - 6 weeks of abx to be completed March 24, 2019 (3) Septic embolism Is this a current diagnosis for this admission?: Yes Plan: -Repeat CT abdomen/pelvis with IV and oral contrast showed suspected left renal mass Renal ultrasound showed likely left renal abscess rather than solid mass Had urology at outside hospital to review imaging to decide if suspected left renal abscess can be drained by IR or if the patient needs to be transferred for surgical intervention; they recommended continued IV antibiotics and repeat imaging in the next few weeks if patient worsens clinically as patient may need abscesses drained. -CT abdomen repeat showed stable appearance of previously noted splenic and renal infarcts/abscess - CT chest large left pleural effusion with adjacent consolidation likely representing compressive atelectasis. Small right pleural effusion. Scattered nodular opacities in the right lung are nonspecific in etiology could be infectious. -ceftri/ampi started 02/06/20. last negative blood culture Feb 10 so march 24 will be her last dose of abx to complete 6 weeks of abx (4) Acute on chronic respiratory failure with hypoxemia Is this a current diagnosis for this admission?: Yes Plan: - still requiring O2 support, was not previously on o2 at home - COVID negative -CT showed moderate-sized pleural effusion on 02/05/20. repeat Ct chest showed reaccumulation of pleural fluid left -Status post thoracentesis 02/06/20 was able to remove approximately 800 mL of fluid sent for analysis. - s/p 2nd thoracentesis 02/18/20 drained 650 ml shiloh colored fluid, sent for a nalysis -1st Pleural fluid analysis culture and Gram stain negative - Awaiting 2nd Pleural fluid analysis - +ve lights criteria Exudative first Pleural fluid analysis. Likely from ongoing infection - continue CPAP PRN and at night (5) Pleural effusion due to bacterial infection Is this a current diagnosis for this admission?: Yes Plan: - had a previous thoracentesis 02/06/20 exudative by Lights criteria, cultures were negative. Cytology showed reactive cells, no malignancy - repeat CT chest showed that this has reaccumulated - s/p repeat thoracentesis 02/18/20. drained 650 ml shiloh fluid. Sent for analysis (6) Normocytic anemia Is this a current diagnosis for this admission?: Yes Plan: - Hgb 6.7>8.0>7.7 post transfusion likely due to chronic medical condition on top of blood draws - I do not think she has any active bleeding - s/p 1 u PRBC (7) FROYLAN on CPAP Is this a current diagnosis for this admission?: Yes Plan: nocturnal cpap. She mainly wears this because she is sleeping al throughout the day otherwise she feels she can do PT without it. (8) Panniculitis Is this a current diagnosis for this admission?: Yes Plan: -Antibiotic switch from Dapto to ceftriaxone/ampicillin. (9) Diabetes mellitus type 2 in obese Is this a current diagnosis for this admission?: Yes Plan: - continue SSI, hypoglycemia protocol and accucheck (10) Sepsis Qualifiers: Sepsis type: sepsis due to unspecified organism Sepsis acute organ dysfunction status: without acute organ dysfunction Qualified Code(s): A41.9 - Sepsis, unspecified organism Is this a current diagnosis for this admission?: Yes Plan: RESOLVED - Leukocytosis, febrile, hypoxic, tachycardic. - source likely endocarditis -Dapto switched to ceftriaxone/ampicillin started 02/06/20 (11) Morbid obesity with BMI of 70 and over, adult Is this a current diagnosis for this admission?: Yes Plan: - BMI over 70 - advised diet and lifestyle modification (12) Essential hypertension Is this a current diagnosis for this admission?: Yes (13) Menometrorrhagia Is this a current diagnosis for this admission?: Yes (14) Chronic pain Qualifiers: Chronic pain type: other chronic pain Qualified Code(s): G89.29 - Other chronic pain Is this a current diagnosis for this admission?: Yes Plan: - on morphine and norco (15) Elevated d-dimer Is this a current diagnosis for this admission?: Yes Plan: likely due to high inflammatory state caused by morbid obesity and infection - BLE duplex US this admission was negative for DVT - CTA chest this admission negative for PE (16) Difficult airway Qualifiers: Encounter type: subsequent encounter Qualified Code(s): T88.4XXD - Failed or difficult intubation, subsequent encounter Is this a current diagnosis for this admission?: Yes Plan: due to morbid obesity, a MATTHEW was technically difficult and was unable to be performed (attempted but anesthesia was unable to secure her airway). A second attempt at a MATTHEW was planned on 02/02 but anesthesia declined to attempt this again as they stated patient's airway is extremely tenuous and they were barely able to safely intubate the patient previously. Cardiology, Dr. Kimbrough, was also concerned after speaking with them that he would likely not have success on the second attempt either. 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 It would be helpful if the patient lost a significant amount of weight over the next 6 weeks as this may assist with the difficult anatomy of her neck. - will discuss again with cardiology given persistent bacteremia and inability to transfer to another site without MATTHEW, we may need to re-attempt MATTHEW here at [facility] again this hospitalization - Time Time Spent with patient: 25-34 minutes Medications reviewed and adjusted accordingly: Yes Anticipated Discharge Disposition: Home with Home Health Anticipated Discharge Timeframe: TBD
[2020-02-19] MEDS: INSULIN GLARGINE,HUM.REC.ANLOG 1,000 UNIT/10 ML VIAL SUBCUT SCH (21:38)
[2020-02-19] MEDS: PRAZOSIN HCL 1 MG PO SCH (21:41)
[2020-02-20] MEDS: ALBUTEROL SULFATE HFA (90 MCG/PUFF) 8 GM MDI IH SCH ×4 (00:31→18:09)
[2020-02-20] MEDS: AMPICILLIN SODIUM 2 GM in NORMAL SALINE 100 ML IV SCH ×6 (03:00→23:06)
[2020-02-20] MEDS: OXYCODONE HCL IR 5 MG TABLET PO PRN ×3 (03:49→18:21)
[2020-02-20] MEDS: PANTOPRAZOLE SODIUM 40 MG TABLET.DR PO SCH (06:44)
[2020-02-20] MEDS: HYDROXYZINE PAMOATE 50 MG CAPSULE PO SCH ×3 (06:44→22:49)
[2020-02-20] MEDS: INSULIN LISPRO 100 UNIT/ML 3 ML VIAL SUBCUT SCH ×4 (08:04→22:42)
--- NOTE | 2020-02-20 10:30 | RADIOLOGY REPORT (SQ) ---
EXAM DESCRIPTION: PICC LINE REPLACEMENT IMAGES COMPLETED DATE/TIME: 02/20/2020 9:41 am REASON FOR STUDY: Bacteremia COMPARISON: None. FLUOROSCOPY TIME: None 2 portable chest images saved to PACS. TECHNIQUE: PICC replacement at bedside. LIMITATIONS: None. PROCEDURE: After written consent and assessment were obtained, PICC line replacement was performed a t bedside. The left arm an existing PICC was prepped and draped in a sterile fashion. The entry site was anesthetized with 1% lidocaine. A .018 guide wire was then inserted through the existing PICC a nd into the venous system. The old catheter was then removed and a new catheter measuring 44 cm was a dvanced over the wire and into the venous system. The wire was then removed and the catheter was adh ered to the patients arm with a stat lock. The catheter was then aspirated and flushed and a sterile bandage was placed over the access site. Portable chest image was saved to PACS confirming the deangelo ter tip within the superior vena cava. IMPRESSION: SUCCESSFUL OVER THE WIRE REPLACEMENT OF AN OLD PICC FOR A NEW ONE THAT IS 5 FR DUAL LUME N 44 CM PICC IN THE LEFT ARM. COMMENT: Patient medication list reviewed: Yes- Quality ID# [id number]:Eligible professional attests to doc umenting in the medical record they obtained, updated, or reviewed the patient's current medications. . Quality ID 145: Final reports for procedures using fluoroscopy that document radiation exposure ezequiel pb, or exposure time and number of fluorographic images (if radiation exposure indices are not avail able) Quality ID #76: The patient was prepped and draped using maximum sterile barrier technique including cap, mask, sterile gown, sterile gloves, a large sterile sheet, hand hygiene, and 2% Chlorhexidine fo r cutaneous antisepsis. When ultrasound is used, sterile ultrasound techniques are followed requiring sterile gel and sterile probes. TECHNICAL DOCUMENTATION: JOB ID: [id number] 2010 [employer]- All Rights Reserved Reading location - IP/workstation name: [id number]
[2020-02-20 10:44] LABS: ALBUMIN BODY FLUID 1.8 g/dL (Not Estab.); TOTAL PROTEIN BODY FLUID 3.6 g/dL (.)
[2020-02-20] MEDS: GABAPENTIN 300 MG CAPSULE PO SCH ×3 (11:02→18:08)
[2020-02-20] MEDS: LACTOBACILLUS ACIDOPHILUS 250 MG TAB PO SCH ×2 (11:03→18:08)
[2020-02-20] MEDS: ASCORBIC ACID 500 MG TABLET PO SCH ×2 (11:03→18:08)
[2020-02-20] MEDS: SERTRALINE HCL 50 MG TABLET PO SCH (11:03)
[2020-02-20] MEDS: FERROUS SULFATE 325 MG TABLET PO SCH (11:03)
[2020-02-20] MEDS: ACETAMINOPHEN 325 MG TABLET PO SCH ×3 (11:03→18:08)
[2020-02-20] MEDS: CHOLECALCIFEROL (D3) 1,000 UNIT (25 MCG) TABLET PO SCH (11:05)
[2020-02-20] MEDS: ENOXAPARIN SODIUM INJ 40 MG/0.4 ML DISP.SYRIN SUBCUT SCH (11:06)
[2020-02-20] MEDS: NORMAL SALINE 10 ML SDV (SCHEDULED) IV SCH ×2 (11:07→22:49)
[2020-02-20] MEDS: CEFTRIAXONE 2 GM/D5W RTU 2 GM/50 ML RTUPB IV SCH ×2 (11:08→22:47)
[2020-02-20] MEDS: ZINC SULFATE 220 MG CAPSULE PO SCH (11:09)
[2020-02-20] MEDS: FLUTICASONE/VILANTEROL 100-25 MCG/DOSE IH SCH (11:09)
[2020-02-20] MEDS ORDERED: DEXTROSE 50%-WATER 25 GM/50 ML DISP.SYRIN IV PRN (13:00)
--- NOTE | 2020-02-20 13:52 | PDOC PROGRESS REPORT ---
Subjective Date:: 02/20/20 Subjective:: SARAHI ST is a 34 year old female with history of morbid obesity, FROYLAN, ast hma, diabetes mellitus, hypertension, anxiety and depression, who presents to the hospital with complaints of diffuse abdominal pain. The pain started 1 day ago. She describes it as aching pain which lasts several minutes. States it occurs every 15 minutes. Feels like a cramping sensation. Denies prior episodes. No notable aggravating or alleviating factors. Denies any relationship with food consumption. Admits to nausea but no vomiting. Denies any vaginal discharge. Denies any urinary symptoms.. Last sexual activity was in 2015. Preceding onset of this symptoms, she states she ate out on Monday. Subsequently became constipated and took a laxative. After that she had a few episodes of diarrhea on Monday and Monday. Pain started on Monday. In the ER, patient received work-up with CT abdomen pelvis without contrast. This incidentally picked up groundglass opacities in patient's lower lungs. Patient also noted to have hypoxia at 90% on room air. She has chronic issues with her breathing and often gets short of breath but is also quite overweight. She has not noted any recent worsening of her breathing. Noted to be febrile in the ER as well. Interval history: 01/23/2020: Patient was seen and examined. She still with high white count. No fever. Complains of abdominal wall pain. 01/24/2020: Patient was seen and examined. White count is improving. No fever. Complains of abdominal wall pain. 01/25/2020: Patient was seen and examined. White count is improving. Afebrile. Improving overall. Repeat cultures still positive for Enterococcus. 01/26/2020: Patient was seen and examined. Had low-grade fever of 100.6 last night. Stable on 4 L of nasal cannula oxygen." 01/27/2020 Still unclear where the source of the patient's infection might be. Per ID, they suspect intra-abdominal source such as the bowel or tract. We will repeat a CT abdomen and this time and on the pelvis as well. This will be done with IV and oral contrast to look for any potential abscesses could have formed along her bowel. She still having vaginal bleeding and states that sometimes she bleeds for an entire month. She does not follow with a cardiac specialist regularly as she does not have insurance. Patient states she feels okay today. MATTHEW is being arranged reportedly. Daptomycin continues. Lower WBC and lower hemoglobin down to 8. Latest blood culture is also positive for Enterococcus, same organism as the previous cultures per micro lab. 01/28/2020 CT abdomen/pelvis with contrast showed possible left renal mass and I have ordered a renal ultrasound to get a closer look at this. Renal ultrasound showed this is likely an abscess rather than a solid tumor. We will need urology opinion and I will give them a call to see if they would like the patient transferred for intervention or if IR would be able to drain this here. Patient remains afebrile. Blood cultures 1/2 growing MRSA. Patient believes the suspected abscess in her left kidney may be the source of her left upper quadrant and left flank pain. 01/29/2020 I called [facility] and spoke with the urologist on staff there and then he called their interventional radiologist had a lengthy discussion about the patient's imaging studies and how this should be addressed. They believe the farzad salcido's renal lesion is likely a phlegmon which may turn into an abscess in the near future. They recommended against attempting to drain this lesion until it becomes an actual liquid abscess. They also noted a lesion in the patient's spleen consistent with septic emboli and similar to the kidney lesion. I believe the patient has showered her organ systems with septic emboli likely from a central source, suspected to be infected endocarditis. MTATHEW was not able to be done as mentioned previously and this will need to be repeated in the near future. We will repeat blood cultures today and if these remain negative we may explore transfer to a CT surgery facility once we can confirm a valvular vegetation on MATTHEW. Patient has no new complaints today. I examined her buttock regions and did not see any open wounds that could be a source for MRSA infection. The patient had mentioned previously having some irritation and possibly an open wound in that area. 01/30/2020 Most recent set of results of blood cultures on 01/26 have now resulted as 1/2 bottles contaminated with coag negative staph, otherwise blood cultures are negative. Patient is continued on daptomycin. Blood cultures drawn yesterday are still pending. Patient states she feels slightly better. Dr. Kimbrough is planning to repeat MATTHEW attempt next week. This is certainly indicated given that she probably has a central source of bloodstream infection showering multiple organs, most likely infected endocarditis. Possible she seeded her heart valves from a skin infection became bacteremia. 01/31/2020 Blood cultures are growing staph species in 1/2 bottles, suspect this may be a contaminant. Patient is having a bit more pain in her left flank and abdomen likely due to the septic emboli in her kidney. She has been using morphine overnight and explained to her that this will not provide lasting pain relief and she should use the Percocet instead and reserve the morphine for breakthrough pain. I also discussed this with the nurse. I have ordered a MATTHEW to be done on Monday assuming Dr. Kimbrough is available for this. I noted she had a positive mycoplasma IgG antibody earlier in the admission she was approp riately treated with a course of azithromycin. Her blood cultures have not grown mycoplasma and this may be simply antibodies from an exposure in the past other than an active infection. D-dimer is higher. We will check PVL BLE to rule out DVT. There is no PE on a recent CTPA. 02/01/2020 Most recent 1/2 blood cultures still growing coag negative staph highly likely a contaminant. If this is the case, patient is to consecutive negative blood culture results from different days. We could say blood is likely cleared of infection as of 01/26. We continue to plan for MATTHEW hopefully on Monday. Order has been placed but the timing of the procedure will be entirely up to Dr. Kimbrough's availability. Patient likely has obesity hypoventilation syndrome and we should not push her oxygen towards 100%. She will likely breathe and feel better overall at a lower O2 saturation around 92% or higher. She is at risk for CO2 retention we do not keep this in mind. 02/02/2020 Patient still having significant left upper quadrant pain likely due to developing splenic abscess. We will repeat a CT abdomen/pelvis with contrast in the next 48 hours to see if this has gone from being a phlegmon to a drainable abscess. Per my discussion with [facility] interventional radiology, they did not recommend attempting to drain any septic emboli unless it had clear evidence of being a liquid abscess. I have added gabapentin to help with the pain and we will continue Percocet and then also morphine for breakthrough pain. Other than that, patient has no new complaints. Will hopefully have MATTHEW done again in the next 48 hours. This is pending Dr. Kimbrough availability. 02/03/2020 Unable to get MATTHEW today due to anesthesia refusing to attempt this again here they stated patient's airway is extremely tenuous and they were barely able to safely intubate the patient previously. Dr. Kimbrough was also concerned after speaking with them that he would likely not have success on the second attempt either. He recommended treating the patient with 6 weeks of IV antibiotics for presumed infective endocarditis. It would be helpful if the patient lost a significant amount of weight over the next 6 weeks as this may assist with the difficult anatomy of her neck. Patient could potentially be discharged home if case management is able to arrange outpatient infusions. She will need a PICC line placed and to have her central line removed. I will place an order for this to be done tomorrow. Patient will need a physician to follow-up her care after she leaves if she continues on IV antibiotics. She will need periodic labs over the next 6 weeks and someone to monitor these. 02/04/20 Patient was seen and examined at bedside. She is still complaining of left sided flank pain which is still likely from septic emboli to her left kidney. I have increased her percocet to q3 hrs and increased her morphine. She got a PICC line today for planned 6 weeks of abx. She is still currently requiring O2 support. Discharge planning still trying to work on setting up home infusion for dapto as well as home O2. Will repeat CT abdomen/pelvis to assess septic emboli to left kidney. 02/05/20 Patient was seen and examined at bedside. Still on her CPAP machine most of the time. Repeat blood culture drawn yesterday still growing Enterococcus. I have touched base with infectious disease regarding this and I was able to speak to Dr. Navarrete. She recommends to talk to the patient about her penicillin allergy possibly switch her over to ceftriaxone and ampicillin regimen since this is much better for Enterococcus. He also recommended to consult CT surgery for her splenic emboli and high suspicion for endocarditis. With her BMI I doubt that he will she will qualify for any surgery but will try to reach out to a CT surgeon tomorrow. We will also ask her about her penicillin allergy. Repeat CT abdomen and pelvis showed grossly stable appearance of the ill-defined area of hypoattenuation along the inferior left kidney. Stable linear area of hypoattenuation within the spleen. Morbid obesity with skin thickening along the pannus suggestive of panniculitis. Moderate left-sided pleural effusion I have changed her pain medications to morphine IR 10 mg every 4 since she claims that she responds more to morphine rather than Percocet. I have stopped her Percocet and her IV morphine. 02/06/20 Patient was seen and examined at bedside. She reports that her pain seems to be much better with the morphine IR however she feels that she is more nauseous with it as well. I have decreased her morphine to 5 mg every 6. I also discussed with her the recent infectious disease recommendation regarding amoxicillin challenge. She stated that she had a reaction to amoxicillin when she was 14 years old when she got it for dental procedure when she developed tongue swelling however she did not report any shortness of breath, no rashes, did not need to go to the emergency room because of severe allergic reaction. Since this remote penicillin allergy happened more than 15 years ago we we have decided to go ahead with challenging her with amoxicillin 50 mg and then observe her for 20 minutes and then full dose 500 mg/h of amoxicillin and observe her for another hour after that. She did not experience any symptoms with the 50 mg of amoxicillin. If she passed a challenge I would likely switch her antibiotics to ceftriaxone, ampicillin to treat her persistent enterococcal bacteremia. 02/07/20 Patient was seen and examined at bedside. Overall feels ok, reports that her oxygen needs from the nasal cannula may be coming down since the removal of pleural effusion yesterday. she is so far tolerating the ceftriaxone/ampicillin regimen. Still reports nausea and headache with the oral morphine so will trial her on Ailey instead. She shared that she had a dental procedures a few months ago which she thought might be the source of her Endocarditis since she did not receive any abx. Will plan to repeat her blood cultures in 48 hrs. 02/08/20 Patient was seen and examined at bedside. She denied any new complains, still with pain on left side. Her hgb was noted to be 6.7 but she denies any melena, hematemesis. She was given 1 unit PRBC. Otherwise she is doing about the same. Plan to repeat blood culture on monday.She was complaining of right lower leg pain. Venous doppler ordered to rule out DVT 02/09/20 Patient was seen and examined at bedside. No new complains, remained afebrile. No chest pain, no SOB, still with stable left sided pain. I talked to her about putting PT on consult and she said she would like to try and could come off the CPAP and be on nasal cannula. Repeat blood culture tomorrow morning. hgb 8.0 today. She received 1 unit of PRBC 02/10/20 Patient was seen and examined at bedside. No new complains. She will be assessed by physical therapy today. Repeat blood cultures were drawn today. She has been afebrile al throughout. I have discussed her case with CT surgery PA at [facility] Richard and he stated that they're ability to properly assess her is very limited because she does not have adequate imaging of her presumed endocarditis. She is on Day 4 of Ceftri/ampi regimen and repeat blood cultures were drawn today. 02/17/20 Care resumed today. Reviewed notes of last week. Her blood culture has been negative since 02/15/20. repeat Bcx 02/16/20 showed staph specie growth which she previously grew before and is suspected to be a contaminant. She is currently on D11 of ceftri/ampi. She is scheduled to undergo WBC scan today. repeat CT chest done showed large left pleural effusion. She had a previous thoracentesis 02/06/20 to drain the effusion she had on the same side. She has been afebrile and WBC is normal. 02/18/20 Patient was seen and examined at bedside. She is still on CPAP most of the time over her 5L of Nasal cannula. She underwent tagged WBC scan yesterday which was negative. She underwent repeat thoracentesis today to remove a left pleural effusion which has re accumulated since her last thoracentesis approx 10 days ago. Plan to repeat her blood culture tomorrow and if still growing staph epidermidis will likely need to pull out PICC line and replace it with another. 02/19/20 Patient was seen and examined at bedside. She reports that her breathing is much better after thoracentesis. Repeat blood cultures drawn today. She is otherwise stable. 02/20/20 Patient was seen and examined at bedside. No new complains, no acute events overnight. PICC line was replaced today. Latest blood culture 02/19/20 negative x 24 hrs. Reason For Visit: HYPOXIA,FEVER Physical Exam Vital Signs: Temp Pulse Resp BP Pulse Ox 98.1 F 110 H 22 H 132/77 H 93 02/20/20 10:51 02/20/20 10:51 02/20/20 10:51 02/20/20 10:51 02/20/20 10:51 Intake & Output 02/19/20 02/20/20 02/21/20 06:59 06:59 06:59 Intake Total 600 1697 360 Balance 600 1697 360 Weight 180.2 kg 180.2 kg General appearance: PRESENT: mild distress, morbidly obese Head exam: PRESENT: atraumatic, normocephalic Eye exam: PRESENT: EOMI, PERRLA Mouth exam: PRESENT: moist Neck exam: PRESENT: full ROM Respiratory exam: PRESENT: clear to auscultation syl, symmetrical, unlabored Cardiovascular exam: PRESENT: RRR, +S1, +S2 Pulses: PRESENT: +2 pedal pulses bilateral GI/Abdominal exam: PRESENT: normal bowel sounds, soft. ABSENT: rebound, tenderness Extremities exam: PRESENT: full ROM Musculoskeletal exam: PRESENT: full ROM Neurological exam: PRESENT: alert, awake, oriented to person, oriented to place, oriented to time, oriented to situation Skin exam: PRESENT: normal color Results Laboratory Results: 02/19/20 04:30 02/19/20 04:30 02/18/20 02/18/20 14:00 14:00 Fluid Glucose 111 Fluid Total Protein 3.6 Fluid Albumin 1.8 Fluid LDH 246 154 02/15/20 07:51 Blood Blood Culture - Final NO GROWTH IN 5 DAYS 02/15/20 04:52 Blood Blood Culture - Final NO GROWTH IN 5 DAYS 02/16/20 04:33 Blood Blood Culture (PCR) - Final Staphylococcus Species 02/16/20 04:33 Blood Blood Culture - Final Staphylococcus Haemolyticus 02/16/20 04:59 Blood Blood Culture (PCR) - Final Staphylococcus Species 02/16/20 04:59 Blood Blood Culture - Final Staphylococcus Haemolyticus 01/25/20 01/26/20 16:00 05:33 Creatine Kinase < 20 L 30 Impressions: Chest/Abdomen CTA 01/22/20 00:00 IMPRESSION: 1. No evidence of pulmonary embolus. 2. Scattered mosaic attenuation throughout the lungs possibly secondary to small airway disease or hypoventilatory change. 3. Trace left pleural effusion. Renal Ultrasound 01/28/20 00:00 IMPRESSION: Avascular approximately 3 cm mass off the inferior pole the left kidney. This most likely represents infectious or inflammatory process. PICC Line Insertion 02/04/20 00:00 IMPRESSION: SUCCESSFUL PLACEMENT OF A 5 FR DUAL LUMEN 44 CM PICC IN THE LEFT BASILIC VEIN. Venous Doppler Study 02/09/20 00:00 IMPRESSION: No evidence of DVT or SVT in the visualized veins of the right leg. Limited exam with nonvisualization of the mid/distal superficial femoral and peroneal veins. Abdomen/Pelvis CT 02/13/20 00:00 IMPRESSION: 1. Large left pleural effusion with adjacent consolidation likely representing compressive atelectasis. Small right pleural effusion. 2. Scattered nodular opacities in the right lung are nonspecific in etiology and could be infectious. There is some interstitial opacities/septal thickening which could reflect pulmonary edema. 3. Exam is degraded due to patient body habitus. IMPRESSION: 1. Degraded examination due to patient body habitus. 2. Focal region of hypoattenuation in the inferomedial left kidney is similar in morphology, though may be slightly decreased in size from prior. 3. Slight decrease in size of region of hypoattenuation along the inferolateral spleen, possibly representing a subcapsular fluid collection. Chest CT 02/13/20 00:00 IMPRESSION: 1. Large left pleural effusion with adjacent consolidation likely representing compressive atelectasis. Small right pleural effusion. 2. Scattered nodular opacities in the right lung are nonspecific in etiology and could be infectious. There is some interstitial opacities/septal thickening which could reflect pulmonary edema. 3. Exam is degraded due to patient body habitus. IMPRESSION: 1. Degraded examination due to patient body habitus. 2. Focal region of hypoattenuation in the inferomedial left kidney is similar in morphology, though may be slightly decreased in size from prior. 3. Slight decrease in size of region of hypoattenuation along the inferolateral spleen, possibly representing a subcapsular fluid collection. WBC Scan Nuclear Medicine 02/17/20 00:00 IMPRESSION: NEGATIVE WHITE BLOOD CELL STUDY. NO ABNORMAL FOCAL AREAS OF UPTAKE. Thoracentesis Ultrasound 02/18/20 00:00 IMPRESSION: SUCCESSFUL THORACENTESIS USING ULTRASOUND GUIDANCE. Chest X-Ray 02/18/20 16:10 IMPRESSION: NO PNEUMOTHORAX ON THE IMAGE ACQUIRED 2 HOURS AFTER THORACENTESIS. NO CHANGE IN APPEARANCE OF THE CHEST. PICC Line Exchange 02/20/20 00:00 IMPRESSION: SUCCESSFUL OVER THE WIRE REPLACEMENT OF AN OLD PICC FOR A NEW ONE THAT IS 5 FR DUAL LUMEN 44 CM PICC IN THE LEFT ARM. Assessment and Plan - Diagnosis (1) Bacteremia due to Enterococcus Is this a current diagnosis for this admission?: Yes Plan: - CT abdomen/pelvis with contrast showed likely septic emboli to left kidney and spleen; discussed with urology and IR at [facility], will hold off on draining these unless they turn into an abscess rather than what appears to be phlegmon - cultures: Blood cultures 01/20+ for Enterococcus, 01/21+ for Enterococcus, 01/23+ for Enterococcus, 01/26 blood cultures growing coag negative staph contaminant in 1/2 bottles otherwise clear, 01/28 growing staph epidermidis - 02/03 blood culture again grew enterococcus and staph epidermidis - TTE 01/24/20 cannot exclude vegetation. LV systolic function is normal, EF 55 to 60%, mild MR, moderate AR. -Patient passed amoxicillin challenge -I discussed her case with [facility] CT surgery department and I was able to speak to their PA Richard and unfortunately there is that their ability to help her is limited by the fact that she does not have adequate imaging to properly confirm endocarditis and assess valvular dysfunction. - on ceftri/ampi -negative blood culture 02/11/20. repeat Blood cx 02/16/20 grew staph specie which was thought to be a contaminant. If we start the 6 week count on her last negative blood culture, her last day of abx will be Mar 24 to complete 6 weeks of treatment - PICC line replaced today 02/20/20 (2) Suspected endocarditis Is this a current diagnosis for this admission?: Yes Plan: - highly suspecting given enterococcal bacteremia, septic infarct to spleen and kidney - TTE done 01/23 showed increased velocity across the aortic valve moderate amount of aortic regurgitation cannot totally exclude vegetation. - MATTHEW was attempted twice but due to her body habitus anesthesia has found it very difficult to secure her airway - she received several days of dapto before being switched to ceftri/ampi on 02/16/20 after passing the amoxicillin challenge - Last negative blood culture for enterococcus was 02/11/20. - I have spoken to Richard MCFADDEN for [facility] CT surgery however they cannot give any recommendations since her MATTHEW has not been done therefore valve dysfunction is not completely evaluated. - ID on board - 6 weeks of abx to be completed March 24, 2019 (3) Septic embolism Is this a current diagnosis for this admission?: Yes Plan: -Repeat CT abdomen/pelvis with IV and oral contrast showed suspected left renal mass Renal ultrasound showed likely left renal abscess rather than solid mass Had urology at outside hospital to review imaging to decide if suspected left renal abscess can be drained by IR or if the patient needs to be transferred for surgical intervention; they recommended continued IV antibiotics and repeat imaging in the next few weeks if patient worsens clinically as patient may need abscesses drained. -CT abdomen repeat showed stable appearance of previously noted splenic and renal infarcts/abscess - CT chest large left pleural effusion with adjacent consolidation likely representing compressive atelectasis. Small right pleural effusion. Scattered nodular opacities in the right lung are nonspecific in etiology could be infectious. -ceftri/ampi started 02/06/20. last negative blood culture Feb 10 so march 24 will be her last dose of abx to complete 6 weeks of abx (4) Acute on chronic respiratory failure with hypoxemia Is this a current diagnosis for this admission?: Yes Plan: - still requiring O2 support, was not previously on o2 at home - COVID negative -CT showed moderate-sized pleural effusion on 02/05/20. repeat Ct chest showed reaccumulation of pleural fluid left -Status post thoracentesis 02/06/20 was able to remove approximately 800 mL of fluid sent for analysis. - s/p 2nd thoracentesis 02/18/20 drained 650 ml shiloh colored fluid, sent for analysis -1st Pleural fluid analysis culture and Gram stain negative - Awaiting 2nd Pleural fluid analysis - +ve lights criteria Exudative first Pleural fluid analysis. Likely from on going infection - continue CPAP PRN and at night (5) Pleural effusion due to bacterial infection Is this a current diagnosis for this admission?: Yes Plan: - had a previous thoracentesis 02/06/20 exudative by Lights criteria, cultures were negative. Cytology showed reactive cells, no malignancy - repeat CT chest showed that this has reaccumulated - s/p repeat thoracentesis 02/18/20. drained 650 ml shiloh fluid. Sent for analysis (6) Normocytic anemia Is this a current diagnosis for this admission?: Yes Plan: - Hgb 6.7>8.0>7.7 post transfusion likely due to chronic medical condition on top of blood draws - I do not think she has any active bleeding - s/p 1 u PRBC (7) FROYLAN on CPAP Is this a current diagnosis for this admission?: Yes Plan: nocturnal cpap. She mainly wears this because she is sleeping al throughout the day otherwise she feels she can do PT without it. (8) Panniculitis Is this a current diagnosis for this admission?: Yes Plan: -Antibiotic switch from Dapto to ceftriaxone/ampicillin. (9) Diabetes mellitus type 2 in obese Is this a current diagnosis for this admission?: Yes Plan: - continue SSI, hypoglycemia protocol and accucheck (10) Sepsis Qualifiers: Sepsis type: sepsis due to unspecified organism Sepsis acute organ dysfunction status: without acute organ dysfunction Qualified Code(s): A41.9 - Sepsis, unspecified organism Is this a current diagnosis for this admission?: Yes Plan: RESOLVED - Leukocytosis, febrile, hypoxic, tachycardic. - source likely endocarditis -Dapto switched to ceftriaxone/ampicillin started 02/06/20 (11) Morbid obesity with BMI of 70 and over, adult Is this a current diagnosis for this admission?: Yes Plan: - BMI over 70 - advised diet and lifestyle modification (12) Essential hypertension Is this a current diagnosis for this admission?: Yes (13) Menometrorrhagia Is this a current diagnosis for this admission?: Yes (14) Chronic pain Qualifiers: Chronic pain type: other chronic pain Qualified Code(s): G89.29 - Other chronic pain Is this a current diagnosis for this admission?: Yes Plan: - on morphine and norco (15) Elevated d-dimer Is this a current diagnosis for this admission?: Yes Plan: likely due to high inflammatory state caused by morbid obesity and infection - BLE duplex US this admission was negative for DVT - CTA chest this admission negative for PE (16) Difficult airway Qualifiers: Encounter type: subsequent encounter Qualified Code(s): T88.4XXD - Failed or difficult intubation, subsequent encounter Is this a current diagnosis for this admission?: Yes Plan: due to morbid obesity, a MATTHEW was technically difficult and was unable to be performed (attempted but anesthesia was unable to secure her airway). A second attempt at a MATTHEW was planned on 02/02 but anesthesia declined to attempt this again as they stated patient's airway is extremely tenuous and they were barely able to safely intubate the patient previously. Cardiology, Dr. Kimbrough, was also concerned after speaking with them that he would likely not have success on the second attempt either. 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 It would be helpful if the patient lost a significant amount of weight over the next 6 weeks as this may assist with the difficult anatomy of her neck. - will discuss again with cardiology given persistent bacteremia and inability to transfer to another site without MATTHEW, we may need to re-attempt MATTHEW here at [facility] again this hospitalization - Time Time Spent with patient: 15-24 minutes Medications reviewed and adjusted accordingly: Yes Anticipated Discharge Disposition: Home, Self Care Anticipated Discharge Timeframe: tbd
[2020-02-20] MEDS: PRAZOSIN HCL 1 MG PO SCH (22:47)
[2020-02-20] MEDS: INSULIN GLARGINE,HUM.REC.ANLOG 1,000 UNIT/10 ML VIAL SUBCUT SCH (22:48)
[2020-02-20] MEDS: MORPHINE SULFATE 10 MG/ML INJ IV PRN (23:02)
[2020-02-21] MEDS: AMPICILLIN SODIUM 2 GM in NORMAL SALINE 100 ML IV SCH ×6 (02:00→21:55)
[2020-02-21] MEDS: HYDROXYZINE PAMOATE 50 MG CAPSULE PO SCH ×3 (06:28→21:55)
[2020-02-21] MEDS: PANTOPRAZOLE SODIUM 40 MG TABLET.DR PO SCH (06:28)
[2020-02-21] MEDS: ALBUTEROL SULFATE HFA (90 MCG/PUFF) 8 GM MDI IH SCH (06:30)
[2020-02-21] MEDS: INSULIN LISPRO 100 UNIT/ML 3 ML VIAL SUBCUT SCH ×4 (07:26→21:51)
[2020-02-21] MEDS: ASCORBIC ACID 500 MG TABLET PO SCH ×2 (11:31→18:15)
[2020-02-21] MEDS: LACTOBACILLUS ACIDOPHILUS 250 MG TAB PO SCH ×2 (11:31→18:16)
[2020-02-21] MEDS: ENOXAPARIN SODIUM INJ 40 MG/0.4 ML DISP.SYRIN SUBCUT SCH (11:31)
[2020-02-21] MEDS: SERTRALINE HCL 50 MG TABLET PO SCH (11:31)
[2020-02-21] MEDS: NORMAL SALINE 10 ML SDV (SCHEDULED) IV SCH ×2 (11:31→21:56)
[2020-02-21] MEDS: FERROUS SULFATE 325 MG TABLET PO SCH (11:31)
[2020-02-21] MEDS: CHOLECALCIFEROL (D3) 1,000 UNIT (25 MCG) TABLET PO SCH (11:31)
[2020-02-21] MEDS: CEFTRIAXONE 2 GM/D5W RTU 2 GM/50 ML RTUPB IV SCH ×2 (11:32→21:55)
[2020-02-21] MEDS: GABAPENTIN 300 MG CAPSULE PO SCH ×3 (11:32→18:15)
[2020-02-21] MEDS: ACETAMINOPHEN 325 MG TABLET PO SCH ×3 (11:32→18:15)
[2020-02-21] MEDS: FLUTICASONE/VILANTEROL 100-25 MCG/DOSE IH SCH (11:32)
[2020-02-21] MEDS: ZINC SULFATE 220 MG CAPSULE PO SCH (11:33)
[2020-02-21] MEDS ORDERED: METOCLOPRAMIDE HCL INJ/PF 10 MG/2 ML SDV IV PRN (14:52)
--- NOTE | 2020-02-21 15:00 | PDOC PROGRESS REPORT ---
Subjective Date:: 02/21/20 Subjective:: SARAHI ST is a 34 year old female with history of morbid obesity, FROYLAN, ast hma, diabetes mellitus, hypertension, anxiety and depression, who presents to the hospital with complaints of diffuse abdominal pain. The pain started 1 day ago. She describes it as aching pain which lasts several minutes. States it occurs every 15 minutes. Feels like a cramping sensation. Denies prior episodes. No notable aggravating or alleviating factors. Denies any relationship with food consumption. Admits to nausea but no vomiting. Denies any vaginal discharge. Denies any urinary symptoms.. Last sexual activity was in 2015. Preceding onset of this symptoms, she states she ate out on Monday. Subsequently became constipated and took a laxative. After that she had a few episodes of diarrhea on Monday and Monday. Pain started on Monday. In the ER, patient received work-up with CT abdomen pelvis without contrast. This incidentally picked up groundglass opacities in patient's lower lungs. Patient also noted to have hypoxia at 90% on room air. She has chronic issues with her breathing and often gets short of breath but is also quite overweight. She has not noted any recent worsening of her breathing. Noted to be febrile in the ER as well. Interval history: 01/23/2020: Patient was seen and examined. She still with high white count. No fever. Complains of abdominal wall pain. 01/24/2020: Patient was seen and examined. White count is improving. No fever. Complains of abdominal wall pain. 01/25/2020: Patient was seen and examined. White count is improving. Afebrile. Improving overall. Repeat cultures still positive for Enterococcus. 01/26/2020: Patient was seen and examined. Had low-grade fever of 100.6 last night. Stable on 4 L of nasal cannula oxygen." 01/27/2020 Still unclear where the source of the patient's infection might be. Per ID, they suspect intra-abdominal source such as the bowel or tract. We will repeat a CT abdomen and this time and on the pelvis as well. This will be done with IV and oral contrast to look for any potential abscesses could have formed along her bowel. She still having vaginal bleeding and states that sometimes she bleeds for an entire month. She does not follow with a warm in regularly as she does not have insurance. Patient states she feels okay today. MATTHEW is being arranged reportedly. Daptomycin continues. Lower WBC and lower hemoglobin down to 8. Latest blood culture is also positive for Enterococcus, same organism as the previous cultures per micro lab. 01/28/2020 CT abdomen/pelvis with contrast showed possible left renal mass and I have ordered a renal ultrasound to get a closer look at this. Renal ultrasound showed this is likely an abscess rather than a solid tumor. We will need urology opinion and I will give them a call to see if they would like the patient transferred for intervention or if IR would be able to drain this here. Patient remains afebrile. Blood cultures 1/2 growing MRSA. Patient believes the suspected abscess in her left kidney may be the source of her left upper quadrant and left flank pain. 01/29/2020 I called [facility] and spoke with the urologist on staff there and then he called their interventional radiologist had a lengthy discussion about the patient's imaging studies and how this should be addressed. They believe the farzad salcido's renal lesion is likely a phlegmon which may turn into an abscess in the near future. They recommended against attempting to drain this lesion until it becomes an actual liquid abscess. They also noted a lesion in the patient's spleen consistent with septic emboli and similar to the kidney lesion. I believe the patient has showered her organ systems with septic emboli likely from a central source, suspected to be infected endocarditis. MATTHEW was not able to be done as mentioned previously and this will need to be repeated in the near future. We will repeat blood cultures today and if these remain negative we may explore transfer to a CT surgery facility once we can confirm a valvular vegetation on MATTHEW. Patient has no new complaints today. I examined her buttock regions and did not see any open wounds that could be a source for MRSA infection. The patient had mentioned previously having some irritation and possibly an open wound in that area. 01/30/2020 Most recent set of results of blood cultures on 01/26 have now resulted as 1/2 bottles contaminated with coag negative staph, otherwise blood cultures are negative. Patient is continued on daptomycin. Blood cultures drawn yesterday are still pending. Patient states she feels slightly better. Dr. Kimbrough is planning to repeat MATTHEW attempt next week. This is certainly indicated given that she probably has a central source of bloodstream infection showering multiple organs, most likely infected endocarditis. Possible she seeded her heart valves from a skin infection became bacteremia. 01/31/2020 Blood cultures are growing staph species in 1/2 bottles, suspect this may be a contaminant. Patient is having a bit more pain in her left flank and abdomen likely due to the septic emboli in her kidney. She has been using morphine overnight and explained to her that this will not provide lasting pain relief and she should use the Percocet instead and reserve the morphine for breakthrough pain. I also discussed this with the nurse. I have ordered a MATTHEW to be done on Monday assuming Dr. Kimbrough is available for this. I noted she had a positive mycoplasma IgG antibody earlier in the admission she was approp riately treated with a course of azithromycin. Her blood cultures have not grown mycoplasma and this may be simply antibodies from an exposure in the past other than an active infection. D-dimer is higher. We will check PVL BLE to rule out DVT. There is no PE on a recent CTPA. 02/01/2020 Most recent 1/2 blood cultures still growing coag negative staph highly likely a contaminant. If this is the case, patient is to consecutive negative blood culture results from different days. We could say blood is likely cleared of infection as of 01/26. We continue to plan for MATTHEW hopefully on Monday. Order has been placed but the timing of the procedure will be entirely up to Dr. Kimbrough's availability. Patient likely has obesity hypoventilation syndrome and we should not push her oxygen towards 100%. She will likely breathe and feel better overall at a lower O2 saturation around 92% or higher. She is at risk for CO2 retention we do not keep this in mind. 02/02/2020 Patient still having significant left upper quadrant pain likely due to developing splenic abscess. We will repeat a CT abdomen/pelvis with contrast in the next 48 hours to see if this has gone from being a phlegmon to a drainable abscess. Per my discussion with [facility] interventional radiology, they did not recommend attempting to drain any septic emboli unless it had clear evidence of being a liquid abscess. I have added gabapentin to help with the pain and we will continue Percocet and then also morphine for breakthrough pain. Other than that, patient has no new complaints. Will hopefully have MATTHEW done again in the next 48 hours. This is pending Dr. Kimbrough availability. 02/03/2020 Unable to get MATTHEW today due to anesthesia refusing to attempt this again here they stated patient's airway is extremely tenuous and they were barely able to safely intubate the patient previously. Dr. Kimbrough was also concerned after speaking with them that he would likely not have success on the second attempt either. He recommended treating the patient with 6 weeks of IV antibiotics for presumed infective endocarditis. It would be helpful if the patient lost a significant amount of weight over the next 6 weeks as this may assist with the difficult anatomy of her neck. Patient could potentially be discharged home if case management is able to arrange outpatient infusions. She will need a PICC line placed and to have her central line removed. I will place an order for this to be done tomorrow. Patient will need a physician to follow-up her care after she leaves if she continues on IV antibiotics. She will need periodic labs over the next 6 weeks and someone to monitor these. 02/04/20 Patient was seen and examined at bedside. She is still complaining of left sided flank pain which is still likely from septic emboli to her left kidney. I have increased her percocet to q3 hrs and increased her morphine. She got a PICC line today for planned 6 weeks of abx. She is still currently requiring O2 support. Discharge planning still trying to work on setting up home infusion for dapto as well as home O2. Will repeat CT abdomen/pelvis to assess septic emboli to left kidney. 02/05/20 Patient was seen and examined at bedside. Still on her CPAP machine most of the time. Repeat blood culture drawn yesterday still growing Enterococcus. I have touched base with infectious disease regarding this and I was able to speak to Dr. Navarrete. She recommends to talk to the patient about her penicillin allergy possibly switch her over to ceftriaxone and ampicillin regimen since this is much better for Enterococcus. He also recommended to consult CT surgery for her splenic emboli and high suspicion for endocarditis. With her BMI I doubt that he will she will qualify for any surgery but will try to reach out to a CT surgeon tomorrow. We will also ask her about her penicillin allergy. Repeat CT abdomen and pelvis showed grossly stable appearance of the ill-defined area of hypoattenuation along the inferior left kidney. Stable linear area of hypoattenuation within the spleen. Morbid obesity with skin thickening along the pannus suggestive of panniculitis. Moderate left-sided pleural effusion I have changed her pain medications to morphine IR 10 mg every 4 since she claims that she responds more to morphine rather than Percocet. I have stopped her Percocet and her IV morphine. 02/06/20 Patient was seen and examined at bedside. She reports that her pain seems to be much better with the morphine IR however she feels that she is more nauseous with it as well. I have decreased her morphine to 5 mg every 6. I also discussed with her the recent infectious disease recommendation regarding amoxicillin challenge. She stated that she had a reaction to amoxicillin when she was 14 years old when she got it for dental procedure when she developed tongue swelling however she did not report any shortness of breath, no rashes, did not need to go to the emergency room because of severe allergic reaction. Since this remote penicillin allergy happened more than 15 years ago we we have decided to go ahead with challenging her with amoxicillin 50 mg and then observe her for 20 minutes and then full dose 500 mg/h of amoxicillin and observe her for another hour after that. She did not experience any symptoms with the 50 mg of amoxicillin. If she passed a challenge I would likely switch her antibiotics to ceftriaxone, ampicillin to treat her persistent enterococcal bacteremia. 02/07/20 Patient was seen and examined at bedside. Overall feels ok, reports that her oxygen needs from the nasal cannula may be coming down since the removal of pleural effusion yesterday. she is so far tolerating the ceftriaxone/ampicillin regimen. Still reports nausea and headache with the oral morphine so will trial her on [place] instead. She shared that she had a dental procedures a few months ago which she thought might be the source of her Endocarditis since she did not receive any abx. Will plan to repeat her blood cultures in 48 hrs. 02/08/20 Patient was seen and examined at bedside. She denied any new complains, still with pain on left side. Her hgb was noted to be 6.7 but she denies any melena, hematemesis. She was given 1 unit PRBC. Otherwise she is doing about the same. Plan to repeat blood culture on monday.She was complaining of right lower leg pain. Venous doppler ordered to rule out DVT 02/09/20 Patient was seen and examined at bedside. No new complains, remained afebrile. No chest pain, no SOB, still with stable left sided pain. I talked to her about putting PT on consult and she said she would like to try and could come off the CPAP and be on nasal cannula. Repeat blood culture tomorrow morning. hgb 8.0 today. She received 1 unit of PRBC 02/10/20 Patient was seen and examined at bedside. No new complains. She will be assessed by physical therapy today. Repeat blood cultures were drawn today. She has been afebrile al throughout. I have discussed her case with CT surgery PA at [facility] Richard and he stated that they're ability to properly assess her is very limited because she does not have adequate imaging of her presumed endocarditis. She is on Day 4 of Ceftri/ampi regimen and repeat blood cultures were drawn today. 02/17/20 Care resumed today. Reviewed notes of last week. Her blood culture has been negative since 02/15/20. repeat Bcx 02/16/20 showed staph specie growth which she previously grew before and is suspected to be a contaminant. She is currently on D11 of ceftri/ampi. She is scheduled to undergo WBC scan today. repeat CT chest done showed large left pleural effusion. She had a previous thoracentesis 02/06/20 to drain the effusion she had on the same side. She has been afebrile and WBC is normal. 02/18/20 Patient was seen and examined at bedside. She is still on CPAP most of the time over her 5L of Nasal cannula. She underwent tagged WBC scan yesterday which was negative. She underwent repeat thoracentesis today to remove a left pleural effusion which has re accumulated since her last thoracentesis approx 10 days ago. Plan to repeat her blood culture tomorrow and if still growing staph epidermidis will likely need to pull out PICC line and replace it with another. 02/19/20 Patient was seen and examined at bedside. She reports that her breathing is much better after thoracentesis. Repeat blood cultures drawn today. She is otherwise stable. 02/20/20 Patient was seen and examined at bedside. No new complains, no acute events overnight. PICC line was replaced today. Latest blood culture 02/19/20 negative x 24 hrs. 02/21/20 Patient was seen and examined at bedside. Complaining of bloatedness. She had a bowel movement today. Otherwise no chest pain, no SOB. Afebrile, good appetite. Reason For Visit: HYPOXIA,FEVER Physical Exam Vital Signs: Temp Pulse Resp BP Pulse Ox 98.1 F 103 H 20 127/42 H 99 02/21/20 12:00 02/21/20 12:00 02/21/20 12:00 02/21/20 12:00 02/21/20 12:00 Intake & Output 02/20/20 02/21/20 02/22/20 06:59 06:59 06:59 Intake Total 1697 1196 490 Balance 1697 1196 490 Weight 180.2 kg 180.2 kg General appearance: PRESENT: no acute distress, cooperative, morbidly obese Head exam: PRESENT: atraumatic, normocephalic Eye exam: PRESENT: EOMI, PERRLA Mouth exam: PRESENT: moist Neck exam: PRESENT: full ROM Respiratory exam: PRESENT: clear to auscultation syl, symmetrical, unlabored Cardiovascular exam: PRESENT: RRR, +S1, +S2 Pulses: PRESENT: +2 pedal pulses bilateral GI/Abdominal exam: PRESENT: normal bowel sounds, soft. ABSENT: rebound, tenderness Extremities exam: PRESENT: full ROM Musculoskeletal exam: PRESENT: full ROM Neurological exam: PRESENT: alert, awake, oriented to person, oriented to place, oriented to time, oriented to situation Psychiatric exam: PRESENT: normal mood Skin exam: PRESENT: normal color Results Laboratory Results: 02/19/20 04:30 02/19/20 04:30 01/25/20 01/26/20 16:00 05:33 Creatine Kinase < 20 L 30 Impressions: Chest/Abdomen CTA 01/22/20 00:00 IMPRESSION: 1. No evidence of pulmonary embolus. 2. Scattered mosaic attenuation throughout the lungs possibly secondary to small airway disease or hypoventilatory change. 3. Trace left pleural effusion. Renal Ultrasound 01/28/20 00:00 IMPRESSION: Avascular approximately 3 cm mass off the inferior pole the left kidney. This most likely represents infectious or inflammatory process. PICC Line Insertion 02/04/20 00:00 IMPRESSION: SUCCESSFUL PLACEMENT OF A 5 FR DUAL LUMEN 44 CM PICC IN THE LEFT BASILIC VEIN. Venous Doppler Study 02/09/20 00:00 IMPRESSION: No evidence of DVT or SVT in the visualized veins of the right leg. Limited exam with nonvisualization of the mid/distal superficial femoral and peroneal veins. Abdomen/Pelvis CT 02/13/20 00:00 IMPRESSION: 1. Large left pleural effusion with adjacent consolidation likely representing compressive atelectasis. Small right pleural effusion. 2. Scattered nodular opacities in the right lung are nonspecific in etiology and could be infectious. There is some interstitial opacities/septal thickening which could reflect pulmonary edema. 3. Exam is degraded due to patient body habitus. IMPRESSION: 1. Degraded examination due to patient body habitus. 2. Focal region of hypoattenuation in the inferomedial left kidney is similar in morphology, though may be slightly decreased in size from prior. 3. Slight decrease in size of region of hypoattenuation along the inferolateral spleen, possibly representing a subcapsular fluid collection. Chest CT 02/13/20 00:00 IMPRESSION: 1. Large left pleural effusion with adjacent consolidation likely representing compressive atelectasis. Small right pleural effusion. 2. Scattered nodular opacities in the right lung are nonspecific in etiology and could be infectious. There is some interstitial opacities/septal thickening which could reflect pulmonary edema. 3. Exam is degraded due to patient body habitus. IMPRESSION: 1. Degraded examination due to patient body habitus. 2. Focal region of hypoattenuation in the inferomedial left kidney is similar in morphology, though may be slightly decreased in size from prior. 3. Slight decrease in size of region of hypoattenuation along the inferolateral spleen, possibly representing a subcapsular fluid collection. WBC Scan Nuclear Medicine 02/17/20 00:00 IMPRESSION: NEGATIVE WHITE BLOOD CELL STUDY. NO ABNORMAL FOCAL AREAS OF UPTAKE. Thoracentesis Ultrasound 02/18/20 00:00 IMPRESSION: SUCCESSFUL THORACENTESIS USING ULTRASOUND GUIDANCE. Chest X-Ray 02/18/20 16:10 IMPRESSION: NO PNEUMOTHORAX ON THE IMAGE ACQUIRED 2 HOURS AFTER THORACENTESIS. NO CHANGE IN APPEARANCE OF THE CHEST. PICC Line Exchange 02/20/20 00:00 IMPRESSION: SUCCESSFUL OVER THE WIRE REPLACEMENT OF AN OLD PICC FOR A NEW ONE THAT IS 5 FR DUAL LUMEN 44 CM PICC IN THE LEFT ARM. Assessment and Plan - Diagnosis (1) Bacteremia due to Enterococcus Is this a current diagnosis for this admission?: Yes Plan: - CT abdomen/pelvis with contrast showed likely septic emboli to left kidney and spleen; discussed with urology and IR at [facility], will hold off on draining these unless they turn into an abscess rather than what appears to be phlegmon - cultures: Blood cultures 01/20+ for Enterococcus, 01/21+ for Enterococcus, 01/23+ for Enterococcus, 01/26 blood cultures growing coag negative staph contam inant in 1/2 bottles otherwise clear, 01/28 growing staph epidermidis - 02/03 blood culture again grew enterococcus and staph epidermidis - TTE 01/24/20 cannot exclude vegetation. LV systolic function is normal, EF 55 to 60%, mild MR, moderate AR. -Patient passed amoxicillin challenge -I discussed her case with [facility] surgery department and I was able to speak to their PA Richard and unfortunately there is that their ability to help her is limited by the fact that she does not have adequate imaging to properly confirm endocarditis and assess valvular dysfunction. - on ceftri/ampi -negative blood culture 02/11/20. repeat Blood cx 02/16/20 grew staph specie which was thought to be a contaminant. If we start the 6 week count on her last negative blood culture, her last day of abx will be Mar 24 to complete 6 weeks of treatment - PICC line replaced 02/20/20 (2) Suspected endocarditis Is this a current diagnosis for this admission?: Yes Plan: - highly suspecting given enterococcal bacteremia, septic infarct to spleen and kidney - TTE done 01/23 showed increased velocity across the aortic valve moderate amount of aortic regurgitation cannot totally exclude vegetation. - MATTHEW was attempted twice but due to her body habitus anesthesia has found it very difficult to secure her airway - she received several days of dapto before being switched to ceftri/ampi on 02/16/20 after passing the amoxicillin challenge - Last negative blood culture for enterococcus was 02/11/20. - I have spoken to Richard MCFADDEN for [facility] surgery however they cannot give any recommendations since her MATTHEW has not been done therefore valve dysfunction is not completely evaluated. - ID on board - 6 weeks of abx to be completed March 24, 2019 (3) Septic embolism Is this a current diagnosis for this admission?: Yes Plan: -Repeat CT abdomen/pelvis with IV and oral contrast showed suspected left renal mass Renal ultrasound showed likely left renal abscess rather than solid mass Had urology at outside hospital to review imaging to decide if suspected left renal abscess can be drained by IR or if the patient needs to be transferred for surgical intervention; they recommended continued IV antibiotics and repeat imaging in the next few weeks if patient worsens clinically as patient may need abscesses drained. -CT abdomen repeat showed stable appearance of previously noted splenic and renal infarcts/abscess - CT chest large left pleural effusion with adjacent consolidation likely representing compressive atelectasis. Small right pleural effusion. Scattered nodular opacities in the right lung are nonspecific in etiology could be infectious. -ceftri/ampi started 02/06/20. last negative blood culture Feb 10 so march 24 will be her last dose of abx to complete 6 weeks of abx (4) Acute on chronic respiratory failure with hypoxemia Is this a current diagnosis for this admission?: Yes Plan: - still requiring O2 support, was not previously on o2 at home - COVID negative -CT showed moderate-sized pleural effusion on 02/05/20. repeat Ct chest showed reaccumulation of pleural fluid left -Status post thoracentesis 02/06/20 was able to remove approximately 800 mL of fluid sent for analysis. - s/p 2nd thoracentesis 02/18/20 drained 650 ml shil[place] colored fluid, sent for analysis -1st Pleural fluid analysis culture and Gram stain negative - Awaiting 2nd Pleural fluid analysis - +ve lights criteria Exudative first Pleural fluid analysis. Likely from ongoing infection - continue CPAP PRN and at night (5) Pleural effusion due to bacterial infection Is this a current diagnosis for this admission?: Yes Plan: - had a previous thoracentesis 02/06/20 exudative by Lights criteria, cultures were negative. Cytology showed reactive cells, no malignancy - repeat CT chest showed that this has reaccumulated - s/p repeat thoracentesis 02/18/20. drained 650 ml shil[place] fluid. Sent for analysis (6) Normocytic anemia Is this a current diagnosis for this admission?: Yes Plan: - Hgb 6.7>8.0>7.7 post transfusion likely due to chronic medical condition on top of blood draws - I do not think she has any active bleeding - s/p 1 u PRBC (7) FROYLAN on CPAP Is this a current diagnosis for this admission?: Yes Plan: nocturnal cpap. She mainly wears this because she is sleeping al throughout the day otherwise she feels she can do PT without it. (8) Panniculitis Is this a current diagnosis for this admission?: Yes Plan: -Antibiotic switch from Dapto to ceftriaxone/ampicillin. (9) Diabetes mellitus type 2 in obese Is this a current diagnosis for this admission?: Yes Plan: - continue SSI, hypoglycemia protocol and accucheck (10) Sepsis Qualifiers: Sepsis type: sepsis due to unspecified organism Sepsis acute organ dysfunction status: without acute organ dysfunction Qualified Code(s): A41.9 - Sepsis, unspecified organism Is this a current diagnosis for this admission?: Yes Plan: RESOLVED - Leukocytosis, febrile, hypoxic, tachycardic. - source likely endocarditis -Dapto switched to ceftriaxone/ampicillin started 02/06/20 (11) Morbid obesity with BMI of 70 and over, adult Is this a current diagnosis for this admission?: Yes Plan: - BMI over 70 - advised diet and lifestyle modification (12) Essential hypertension Is this a current diagnosis for this admission?: Yes (13) Menometrorrhagia Is this a current diagnosis for this admission?: Yes (14) Chronic pain Qualifiers: Chronic pain type: other chronic pain Qualified Code(s): G89.29 - Other chronic pain Is this a current diagnosis for this admission?: Yes Plan: - on morphine and oxy (15) Elevated d-dimer Is this a current diagnosis for this admission?: Yes Plan: likely due to high inflammatory state caused by morbid obesity and infection - BLE duplex US this admission was negative for DVT - CTA chest this admission negative for PE (16) Difficult airway Qualifiers: Encounter type: subsequent encounter Qualified Code(s): T88.4XXD - Failed or difficult intubation, subsequent encounter Is this a current diagnosis for this admission?: Yes Plan: due to morbid obesity, a MATTHEW was technically difficult and was unable to be performed (attempted but anesthesia was unable to secure her airway). A second attempt at a MATTHEW was planned on 02/02 but anesthesia declined to attempt this again as they stated patient's airway is extremely tenuous and they were barely able to safely intubate the patient previously. Cardiology, Dr. Kimbrough, was also concerned after speaking with them that he would likely not have success on the second attempt either. 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 It would be helpful if the patient lost a significant amount of weight over the next 6 weeks as this may assist with the difficult anatomy of her neck. - will discuss again with cardiology given persistent bacteremia and inability to transfer to another site without MATTEHW, we may need to re-attempt MATTHEW here at [place] again this hospitalization - Time Time Spent with patient: 25-34 minutes Medications reviewed and adjusted accordingly: Yes Anticipated Discharge Disposition: Home, Self Care Anticipated Discharge Timeframe: tbd
[2020-02-21] MEDS: OXYCODONE HCL IR 5 MG TABLET PO PRN ×2 (15:17→22:15)
[2020-02-21] MEDS: SENNOSIDES/DOCUSATE 8.6-50 MG 1 EACH TABLET PO SCH (21:52)
[2020-02-21] MEDS: INSULIN GLARGINE,HUM.REC.ANLOG 1,000 UNIT/10 ML VIAL SUBCUT SCH (21:55)
[2020-02-21] MEDS: PRAZOSIN HCL 1 MG PO SCH (21:56)
[2020-02-22] MEDS: AMPICILLIN SODIUM 2 GM in NORMAL SALINE 100 ML IV SCH ×6 (01:24→21:36)
[2020-02-22] MEDS: OXYCODONE HCL IR 5 MG TABLET PO PRN ×2 (02:43→18:33)
[2020-02-22] MEDS: ONDANSETRON HCL INJ/PF 4 MG/2 ML SDV IV PRN (04:02)
[2020-02-22] MEDS: PANTOPRAZOLE SODIUM 40 MG TABLET.DR PO SCH (06:10)
[2020-02-22] MEDS: HYDROXYZINE PAMOATE 50 MG CAPSULE PO SCH ×3 (06:10→21:38)
[2020-02-22] MEDS: INSULIN LISPRO 100 UNIT/ML 3 ML VIAL SUBCUT SCH ×4 (07:31→21:13)
[2020-02-22] MEDS: ENOXAPARIN SODIUM INJ 40 MG/0.4 ML DISP.SYRIN SUBCUT SCH ×2 (10:41→10:47)
[2020-02-22] MEDS: ZINC SULFATE 220 MG CAPSULE PO SCH (10:47)
[2020-02-22] MEDS: CHOLECALCIFEROL (D3) 1,000 UNIT (25 MCG) TABLET PO SCH (10:48)
[2020-02-22] MEDS: ASCORBIC ACID 500 MG TABLET PO SCH ×2 (10:48→17:09)
[2020-02-22] MEDS: LACTOBACILLUS ACIDOPHILUS 250 MG TAB PO SCH ×2 (10:48→18:27)
[2020-02-22] MEDS: GABAPENTIN 300 MG CAPSULE PO SCH ×3 (10:48→17:10)
[2020-02-22] MEDS: NORMAL SALINE 10 ML SDV (SCHEDULED) IV SCH ×2 (10:48→21:36)
[2020-02-22] MEDS: SERTRALINE HCL 50 MG TABLET PO SCH (10:48)
[2020-02-22] MEDS: CEFTRIAXONE 2 GM/D5W RTU 2 GM/50 ML RTUPB IV SCH ×2 (10:48→21:36)
[2020-02-22] MEDS: ACETAMINOPHEN 325 MG TABLET PO SCH ×3 (10:49→18:28)
[2020-02-22 12:07] LABS: HEMATOCRIT 23.4 % (36.0-47.0); MEAN CORPUSCULAR HGB CONC 30.3 g/dL (32.0-36.0); MEAN CORPUSCULAR VOLUME 86 fl (80-97); PLATELET COUNT 286 10^3/uL (150-450); RED BLOOD COUNT 2.73 10^6/uL (3.72-5.28); RED CELL DISTRIBUTION WIDTH 19.7 % (11.5-14.0); WHITE BLOOD COUNT 8.7 10^3/uL (4.0-10.5)
[2020-02-22 12:12] LABS: ALBUMIN 3.1 g/dL (3.5-5.0); ALKALINE PHOSPHATASE 179 U/L (38-126); ANION GAP 5 (5-19); ASPARTATE AMINO TRANSFERASE 46 U/L (14-36); BILIRUBIN,DIRECT 0.4 mg/dL (0.0-0.4); BILIRUBIN,TOTAL 0.7 mg/dL (0.2-1.3); BLOOD UREA NITROGEN 19 mg/dL (7-20); CALCIUM 8.7 mg/dL (8.4-10.2); CARBON DIOXIDE 30 mmol/L (22-30); CHLORIDE 101 mmol/L (98-107); GLUCOSE 121 mg/dL (75-110); POTASSIUM 4.4 mmol/L (3.6-5.0); TOTAL PROTEIN 6.7 g/dL (6.3-8.2)
[2020-02-22 13:05] LABS: ABSOLUTE MONOCYTES # (MANUAL) 0.2 10^3/uL (0.1-1.4); BASOPHILS % (MANUAL) 1 % (0-2); EOSINOPHILS % (MANUAL) 2 % (0-6); LYMPHOCYTES % (MANUAL) 11 % (13-45); MONOCYTES % (MANUAL) 2 % (3-13); NUCLEATED RED BLOOD CELLS 7 /100 WBC (0); SEGMENTED NEUTROPHILS % (MAN) 84 % (42-78); TOTAL CELLS COUNTED 100
[2020-02-22 13:06] LABS: ANISOCYTOSIS 2+; POLYCHROMASIA SLIGHT; STOMATOCYTES 1+
[2020-02-22 13:07] LABS: PLATELET COMMENT ADEQUATE; TEAR DROP CELLS SLIGHT
[2020-02-22 13:08] LABS: HEMOGLOBIN 7.1 g/dL (12.0-15.5)
--- NOTE | 2020-02-22 13:18 | PDOC PROGRESS REPORT ---
Subjective Date:: 02/22/20 Subjective:: SARAHI ST is a 34 year old female with history of morbid obesity, FROYLAN, ast hma, diabetes mellitus, hypertension, anxiety and depression, who presents to the hospital with complaints of diffuse abdominal pain. The pain started 1 day ago. She describes it as aching pain which lasts several minutes. States it occurs every 15 minutes. Feels like a cramping sensation. Denies prior episodes. No notable aggravating or alleviating factors. Denies any relationship with food consumption. Admits to nausea but no vomiting. Denies any vaginal discharge. Denies any urinary symptoms.. Last sexual activity was in 2015. Preceding onset of this symptoms, she states she ate out on Monday. Subsequently became constipated and took a laxative. After that she had a few episodes of diarrhea on Monday and Monday. Pain started on Monday. In the ER, patient received work-up with CT abdomen pelvis without contrast. This incidentally picked up groundglass opacities in patient's lower lungs. Patient also noted to have hypoxia at 90% on room air. She has chronic issues with her breathing and often gets short of breath but is also quite overweight. She has not noted any recent worsening of her breathing. Noted to be febrile in the ER as well. Interval history: 01/23/2020: Patient was seen and examined. She still with high white count. No fever. Complains of abdominal wall pain. 01/24/2020: Patient was seen and examined. White count is improving. No fever. Complains of abdominal wall pain. 01/25/2020: Patient was seen and examined. White count is improving. Afebrile. Improving overall. Repeat cultures still positive for Enterococcus. 01/26/2020: Patient was seen and examined. Had low-grade fever of 100.6 last night. Stable on 4 L of nasal cannula oxygen." 01/27/2020 Still unclear where the source of the patient's infection might be. Per ID, they suspect intra-abdominal source such as the bowel or tract. We will repeat a CT abdomen and this time and on the pelvis as well. This will be done with IV and oral contrast to look for any potential abscesses could have formed along her bowel. She still having vaginal bleeding and states that sometimes she bleeds for an entire month. She does not follow with a outcome analyst regularly as she does not have insurance. Patient states she feels okay today. MATTHEW is being arranged reportedly. Daptomycin continues. Lower WBC and lower hemoglobin down to 8. Latest blood culture is also positive for Enterococcus, same organism as the previous cultures per micro lab. 01/28/2020 CT abdomen/pelvis with contrast showed possible left renal mass and I have ordered a renal ultrasound to get a closer look at this. Renal ultrasound showed this is likely an abscess rather than a solid tumor. We will need urology opinion and I will give them a call to see if they would like the patient transferred for intervention or if IR would be able to drain this here. Patient remains afebrile. Blood cultures 1/2 growing MRSA. Patient believes the suspected abscess in her left kidney may be the source of her left upper quadrant and left flank pain. 01/29/2020 I called [facility] and spoke with the urologist on staff there and then he called their interventional radiologist had a lengthy discussion about the patient's imaging studies and how this should be addressed. They believe the farzad salcido's renal lesion is likely a phlegmon which may turn into an abscess in the near future. They recommended against attempting to drain this lesion until it becomes an actual liquid abscess. They also noted a lesion in the patient's spleen consistent with septic emboli and similar to the kidney lesion. I believe the patient has showered her organ systems with septic emboli likely from a central source, suspected to be infected endocarditis. MATTHEW was not able to be done as mentioned previously and this will need to be repeated in the near future. We will repeat blood cultures today and if these remain negative we may explore transfer to a CT surgery facility once we can confirm a valvular vegetation on MATTHEW. Patient has no new complaints today. I examined her buttock regions and did not see any open wounds that could be a source for MRSA infection. The patient had mentioned previously having some irritation and possibly an open wound in that area. 01/30/2020 Most recent set of results of blood cultures on 01/26 have now resulted as 1/2 bottles contaminated with coag negative staph, otherwise blood cultures are negative. Patient is continued on daptomycin. Blood cultures drawn yesterday are still pending. Patient states she feels slightly better. Dr. Kimbrough is planning to repeat MATTHEW attempt next week. This is certainly indicated given that she probably has a central source of bloodstream infection showering multiple organs, most likely infected endocarditis. Possible she seeded her heart valves from a skin infection became bacteremia. 01/31/2020 Blood cultures are growing staph species in 1/2 bottles, suspect this may be a contaminant. Patient is having a bit more pain in her left flank and abdomen likely due to the septic emboli in her kidney. She has been using morphine overnight and explained to her that this will not provide lasting pain relief and she should use the Percocet instead and reserve the morphine for breakthrough pain. I also discussed this with the nurse. I have ordered a MATTHEW to be done on Monday assuming Dr. Kimbrough is available for this. I noted she had a positive mycoplasma IgG antibody earlier in the admission she was approp riately treated with a course of azithromycin. Her blood cultures have not grown mycoplasma and this may be simply antibodies from an exposure in the past other than an active infection. D-dimer is higher. We will check PVL BLE to rule out DVT. There is no PE on a recent CTPA. 02/01/2020 Most recent 1/2 blood cultures still growing coag negative staph highly likely a contaminant. If this is the case, patient is to consecutive negative blood culture results from different days. We could say blood is likely cleared of infection as of 01/26. We continue to plan for MATTHEW hopefully on Monday. Order has been placed but the timing of the procedure will be entirely up to Dr. Kimbrough's availability. Patient likely has obesity hypoventilation syndrome and we should not push her oxygen towards 100%. She will likely breathe and feel better overall at a lower O2 saturation around 92% or higher. She is at risk for CO2 retention we do not keep this in mind. 02/02/2020 Patient still having significant left upper quadrant pain likely due to developing splenic abscess. We will repeat a CT abdomen/pelvis with contrast in the next 48 hours to see if this has gone from being a phlegmon to a drainable abscess. Per my discussion with [facility] interventional radiology, they did not recommend attempting to drain any septic emboli unless it had clear evidence of being a liquid abscess. I have added gabapentin to help with the pain and we will continue Percocet and then also morphine for breakthrough pain. Other than that, patient has no new complaints. Will hopefully have MATTHEW done again in the next 48 hours. This is pending Dr. Kimbrough availability. 02/03/2020 Unable to get MATTHEW today due to anesthesia refusing to attempt this again here they stated patient's airway is extremely tenuous and they were barely able to safely intubate the patient previously. Dr. Kimbrough was also concerned after speaking with them that he would likely not have success on the second attempt either. He recommended treating the patient with 6 weeks of IV antibiotics for presumed infective endocarditis. It would be helpful if the patient lost a significant amount of weight over the next 6 weeks as this may assist with the difficult anatomy of her neck. Patient could potentially be discharged home if case management is able to arrange outpatient infusions. She will need a PICC line placed and to have her central line removed. I will place an order for this to be done tomorrow. Patient will need a physician to follow-up her care after she leaves if she continues on IV antibiotics. She will need periodic labs over the next 6 weeks and someone to monitor these. 02/04/20 Patient was seen and examined at bedside. She is still complaining of left sided flank pain which is still likely from septic emboli to her left kidney. I have increased her percocet to q3 hrs and increased her morphine. She got a PICC line today for planned 6 weeks of abx. She is still currently requiring O2 support. Discharge planning still trying to work on setting up home infusion for dapto as well as home O2. Will repeat CT abdomen/pelvis to assess septic emboli to left kidney. 02/05/20 Patient was seen and examined at bedside. Still on her CPAP machine most of the time. Repeat blood culture drawn yesterday still growing Enterococcus. I have touched base with infectious disease regarding this and I was able to speak to Dr. Navarrete. She recommends to talk to the patient about her penicillin allergy possibly switch her over to ceftriaxone and ampicillin regimen since this is much better for Enterococcus. He also recommended to consult CT surgery for her splenic emboli and high suspicion for endocarditis. With her BMI I doubt that he will she will qualify for any surgery but will try to reach out to a CT surgeon tomorrow. We will also ask her about her penicillin allergy. Repeat CT abdomen and pelvis showed grossly stable appearance of the ill-defined area of hypoattenuation along the inferior left kidney. Stable linear area of hypoattenuation within the spleen. Morbid obesity with skin thickening along the pannus suggestive of panniculitis. Moderate left-sided pleural effusion I have changed her pain medications to morphine IR 10 mg every 4 since she claims that she responds more to morphine rather than Percocet. I have stopped her Percocet and her IV morphine. 02/06/20 Patient was seen and examined at bedside. She reports that her pain seems to be much better with the morphine IR however she feels that she is more nauseous with it as well. I have decreased her morphine to 5 mg every 6. I also discussed with her the recent infectious disease recommendation regarding amoxicillin challenge. She stated that she had a reaction to amoxicillin when she was 14 years old when she got it for dental procedure when she developed tongue swelling however she did not report any shortness of breath, no rashes, did not need to go to the emergency room because of severe allergic reaction. Since this remote penicillin allergy happened more than 15 years ago we we have decided to go ahead with challenging her with amoxicillin 50 mg and then observe her for 20 minutes and then full dose 500 mg/h of amoxicillin and observe her for another hour after that. She did not experience any symptoms with the 50 mg of amoxicillin. If she passed a challenge I would likely switch her antibiotics to ceftriaxone, ampicillin to treat her persistent enterococcal bacteremia. 02/07/20 Patient was seen and examined at bedside. Overall feels ok, reports that her oxygen needs from the nasal cannula may be coming down since the removal of pleural effusion yesterday. she is so far tolerating the ceftriaxone/ampicillin regimen. Still reports nausea and headache with the oral morphine so will trial her on Nutrioso instead. She shared that she had a dental procedures a few months ago which she thought might be the source of her Endocarditis since she did not receive any abx. Will plan to repeat her blood cultures in 48 hrs. 02/08/20 Patient was seen and examined at bedside. She denied any new complains, still with pain on left side. Her hgb was noted to be 6.7 but she denies any melena, hematemesis. She was given 1 unit PRBC. Otherwise she is doing about the same. Plan to repeat blood culture on monday.She was complaining of right lower leg pain. Venous doppler ordered to rule out DVT 02/09/20 Patient was seen and examined at bedside. No new complains, remained afebrile. No chest pain, no SOB, still with stable left sided pain. I talked to her about putting PT on consult and she said she would like to try and could come off the CPAP and be on nasal cannula. Repeat blood culture tomorrow morning. hgb 8.0 today. She received 1 unit of PRBC 02/10/20 Patient was seen and examined at bedside. No new complains. She will be assessed by physical therapy today. Repeat blood cultures were drawn today. She has been afebrile al throughout. I have discussed her case with CT surgery PA at [facility] and he stated that they're ability to properly assess her is very limited because she does not have adequate imaging of her presumed endocarditis. She is on Day 4 of Ceftri/ampi regimen and repeat blood cultures were drawn today. 02/17/20 Care resumed today. Reviewed notes of last week. Her blood culture has been negative since 02/15/20. repeat Bcx 02/16/20 showed staph specie growth which she previously grew before and is suspected to be a contaminant. She is currently on D11 of ceftri/ampi. She is scheduled to undergo WBC scan today. repeat CT chest done showed large left pleural effusion. She had a previous thoracentesis 02/06/20 to drain the effusion she had on the same side. She has been afebrile and WBC is normal. 02/18/20 Patient was seen and examined at bedside. She is still on CPAP most of the time over her 5L of Nasal cannula. She underwent tagged WBC scan yesterday which was negative. She underwent repeat thoracentesis today to remove a left pleural effusion which has re accumulated since her last thoracentesis approx 10 days ago. Plan to repeat her blood culture tomorrow and if still growing staph epidermidis will likely need to pull out PICC line and replace it with another. 02/19/20 Patient was seen and examined at bedside. She reports that her breathing is much better after thoracentesis. Repeat blood cultures drawn today. She is otherwise stable. 02/20/20 Patient was seen and examined at bedside. No new complains, no acute events overnight. PICC line was replaced today. Latest blood culture 02/19/20 negative x 24 hrs. 02/21/20 Patient was seen and examined at bedside. Complaining of bloatedness. She had a bowel movement today. Otherwise no chest pain, no SOB. Afebrile, good appetite. 02/22/20 Patient was seen and examined at bedside. No acute events overnight. According to the nurse, she refused her lovenox injection and from previous observations she is rarely out of the chair. She is at a high risk for DVT and PE and I have told the patient that she needs to ambulate at least once a day. Antibiotics for endocarditis otherwise to continue. Reason For Visit: HYPOXIA,FEVER Physical Exam Vital Signs: Temp Pulse Resp BP Pulse Ox 97.4 F 100 20 127/53 H 97 02/22/20 12:00 02/22/20 12:00 02/22/20 12:00 02/22/20 12:00 02/22/20 12:00 Intake & Output 02/21/20 02/22/20 02/23/20 06:59 06:59 06:59 Intake Total 1196 1040 Balance 1196 1040 Weight 180.2 kg 180.2 kg General appearance: PRESENT: cooperative, mild distress, morbidly obese Head exam: PRESENT: atraumatic, normocephalic Eye exam: PRESENT: EOMI, PERRLA Mouth exam: PRESENT: moist Neck exam: PRESENT: full ROM Respiratory exam: PRESENT: clear to auscultation syl, symmetrical, unlabored Cardiovascular exam: PRESENT: RRR, +S1, +S2 GI/Abdominal exam: PRESENT: normal bowel sounds, soft. ABSENT: rebound, tenderness Extremities exam: PRESENT: full ROM Musculoskeletal exam: PRESENT: full ROM Neurological exam: PRESENT: alert, awake, oriented to person, oriented to place, oriented to time, oriented to situation Psychiatric exam: PRESENT: normal mood Skin exam: PRESENT: normal color Results Laboratory Results: 02/22/20 11:10 02/22/20 11:10 Sodium 136.3 L Potassium 4.4 Chloride 101 Carbon Dioxide 30 Anion Gap 5 BUN 19 Creatinine 0.96 Est GFR ( Amer) > 60 Glucose 121 H Calcium 8.7 Total Bilirubin 0.7 AST 46 H Alkaline Phosphatase 179 H Total Protein 6.7 Albumin 3.1 L 02/18/20 14:00 Pleural Fluid - Left Pleural Effusion Gram Stain - Final 02/18/20 14:00 Pleural Fluid - Left Pleural Effusion Body Fluid Culture - Final NO AEROBIC OR ANAEROBIC ORGANISMS RECOVERED 01/25/20 01/26/20 16:00 05:33 Creatine Kinase < 20 L 30 Impressions: Chest/Abdomen CTA 01/22/20 00:00 IMPRESSION: 1. No evidence of pulmonary embolus. 2. Scattered mosaic attenuation throughout the lungs possibly secondary to s mall airway disease or hypoventilatory change. 3. Trace left pleural effusion. Renal Ultrasound 01/28/20 00:00 IMPRESSION: Avascular approximately 3 cm mass off the inferior pole the left kidney. This most likely represents infectious or inflammatory process. PICC Line Insertion 02/04/20 00:00 IMPRESSION: SUCCESSFUL PLACEMENT OF A 5 FR DUAL LUMEN 44 CM PICC IN THE LEFT BASILIC VEIN. Venous Doppler Study 02/09/20 00:00 IMPRESSION: No evidence of DVT or SVT in the visualized veins of the right leg. Limited exam with nonvisualization of the mid/distal superficial femoral and peroneal veins. Abdomen/Pelvis CT 02/13/20 00:00 IMPRESSION: 1. Large left pleural effusion with adjacent consolidation likely representing compressive atelectasis. Small right pleural effusion. 2. Scattered nodular opacities in the right lung are nonspecific in etiology and could be infectious. There is some interstitial opacities/septal thickening which could reflect pulmonary edema. 3. Exam is degraded due to patient body habitus. IMPRESSION: 1. Degraded examination due to patient body habitus. 2. Focal region of hypoattenuation in the inferomedial left kidney is similar in morphology, though may be slightly decreased in size from prior. 3. Slight decrease in size of region of hypoattenuation along the inferolateral spleen, possibly representing a subcapsular fluid collection. Chest CT 02/13/20 00:00 IMPRESSION: 1. Large left pleural effusion with adjacent consolidation likely representing compressive atelectasis. Small right pleural effusion. 2. Scattered nodular opacities in the right lung are nonspecific in etiology and could be infectious. There is some interstitial opacities/septal thickening which could reflect pulmonary edema. 3. Exam is degraded due to patient body habitus. IMPRESSION: 1. Degraded examination due to patient body habitus. 2. Focal region of hypoattenuation in the inferomedial left kidney is similar in morphology, though may be slightly decreased in size from prior. 3. Slight decrease in size of region of hypoattenuation along the inferolateral spleen, possibly representing a subcapsular fluid collection. WBC Scan Nuclear Medicine 02/17/20 00:00 IMPRESSION: NEGATIVE WHITE BLOOD CELL STUDY. NO ABNORMAL FOCAL AREAS OF UPTAKE. Thoracentesis Ultrasound 02/18/20 00:00 IMPRESSION: SUCCESSFUL THORACENTESIS USING ULTRASOUND GUIDANCE. Chest X-Ray 02/18/20 16:10 IMPRESSION: NO PNEUMOTHORAX ON THE IMAGE ACQUIRED 2 HOURS AFTER THORACENTESIS. NO CHANGE IN APPEARANCE OF THE CHEST. PICC Line Exchange 02/20/20 00:00 IMPRESSION: SUCCESSFUL OVER THE WIRE REPLACEMENT OF AN OLD PICC FOR A NEW ONE THAT IS 5 FR DUAL LUMEN 44 CM PICC IN THE LEFT ARM. Assessment and Plan - Diagnosis (1) Bacteremia due to Enterococcus Is this a current diagnosis for this admission?: Yes Plan: - CT abdomen/pelvis with contrast showed likely septic emboli to left kidney and spleen; discussed with urology and IR at [facility], will hold off on draining these unless they turn into an abscess rather than what appears to be phlegmon - cultures: Blood cultures 01/20+ for Enterococcus, 01/21+ for Enterococcus, 01/23+ for Enterococcus, 01/26 blood cultures growing coag negative staph contaminant in 1/2 bottles otherwise clear, 01/28 growing staph epidermidis - 02/03 blood culture again grew enterococcus and staph epidermidis - TTE 01/24/20 cannot exclude vegetation. LV systolic function is normal, EF 55 to 60%, mild MR, moderate AR. -Patient passed amoxicillin challenge -I discussed her case with [facility] CT surgery department and I was able to speak to their PA Richard and unfortunately there is that their ability to help her is limited by the fact that she does not have adequate imaging to properly confirm endocarditis and assess valvular dysfunction. - on ceftri/ampi -negative blood culture 02/11/20. repeat Blood cx 02/16/20 grew staph specie which was thought to be a contaminant. If we start the 6 week count on her last negative blood culture, her last day of abx will be Mar 24 to complete 6 weeks of treatment - PICC line replaced 02/20/20 (2) Suspected endocarditis Is this a current diagnosis for this admission?: Yes Plan: - highly suspecting given enterococcal bacteremia, septic infarct to spleen and kidney - TTE done 01/23 showed increased velocity across the aortic valve moderate amount of aortic regurgitation cannot totally exclude vegetation. - MATTHEW was attempted twice but due to her body habitus anesthesia has found it very difficult to secure her airway - she received several days of dapto before being switched to ceftri/ampi on 02/16/20 after passing the amoxicillin challenge - Last negative blood culture for enterococcus was 02/11/20. - I have spoken to Richard MCFADDEN for [facility] CT surgery however they cannot give any recommendations since her MATTHEW has not been done therefore valve dysfunction is not completely evaluated. - ID on board - 6 weeks of abx to be completed March 24, 2019 (3) Septic embolism Is this a current diagnosis for this admission?: Yes Plan: -Repeat CT abdomen/pelvis with IV and oral contrast showed suspected left renal mass Renal ultrasound showed likely left renal abscess rather than solid mass Had urology at outside hospital to review imaging to decide if suspected left renal abscess can be drained by IR or if the patient needs to be transferred for surgical intervention; they recommended continued IV antibiotics and repeat imaging in the next few weeks if patient worsens clinically as patient may need abscesses drained. -CT abdomen repeat showed stable appearance of previously noted splenic and renal infarcts/abscess - CT chest large left pleural effusion with adjacent consolidation likely representing compressive atelectasis. Small right pleural effusion. Scattered nodular opacities in the right lung are nonspecific in etiology could be infect ious. -ceftri/ampi started 02/06/20. last negative blood culture Feb 10 so march 24 will be her last dose of abx to complete 6 weeks of abx (4) Acute on chronic respiratory failure with hypoxemia Is this a current diagnosis for this admission?: Yes Plan: - still requiring O2 support, was not previously on o2 at home - COVID negative -CT showed moderate-sized pleural effusion on 02/05/20. repeat Ct chest showed reaccumulation of pleural fluid left -Status post thoracentesis 02/06/20 was able to remove approximately 800 mL of fluid sent for analysis. - s/p 2nd thoracentesis 02/18/20 drained 650 ml shiloh colored fluid, sent for analysis -1st Pleural fluid analysis culture and Gram stain negative - Awaiting 2nd Pleural fluid analysis - +ve lights criteria Exudative first Pleural fluid analysis. Likely from ongoing infection - continue CPAP PRN and at night (5) Pleural effusion due to bacterial infection Is this a current diagnosis for this admission?: Yes Plan: - had a previous thoracentesis 02/06/20 exudative by Lights criteria, cultures were negative. Cytology showed reactive cells, no malignancy - repeat CT chest showed that this has reaccumulated - s/p repeat thoracentesis 02/18/20. drained 650 ml shiloh fluid. Sent for analysis (6) Normocytic anemia Is this a current diagnosis for this admission?: Yes Plan: - Hgb 6.7>8.0>7.7 post transfusion likely due to chronic medical condition on top of blood draws - I do not think she has any active bleeding - s/p 1 u PRBC (7) FROYLAN on CPAP Is this a current diagnosis for this admission?: Yes Plan: nocturnal cpap. She mainly wears this because she is sleeping al throughout the day otherwise she feels she can do PT without it. (8) Panniculitis Is this a current diagnosis for this admission?: Yes Plan: -Antibiotic switch from Dapto to ceftriaxone/ampicillin. (9) Diabetes mellitus type 2 in obese Is this a current diagnosis for this admission?: Yes Plan: - continue SSI, hypoglycemia protocol and accucheck (10) Sepsis Qualifiers: Sepsis type: sepsis due to unspecified organism Sepsis acute organ dysfunction status: without acute organ dysfunction Qualified Code(s): A41.9 - Sepsis, unspecified organism Is this a current diagnosis for this admission?: Yes Plan: RESOLVED - Leukocytosis, febrile, hypoxic, tachycardic. - source likely endocarditis -Dapto switched to ceftriaxone/ampicillin started 02/06/20 (11) Morbid obesity with BMI of 70 and over, adult Is this a current diagnosis for this admission?: Yes Plan: - BMI over 70 - advised diet and lifestyle modification (12) Essential hypertension Is this a current diagnosis for this admission?: Yes (13) Menometrorrhagia Is this a current diagnosis for this admission?: Yes (14) Chronic pain Qualifiers: Chronic pain type: other chronic pain Qualified Code(s): G89.29 - Other c hronic pain Is this a current diagnosis for this admission?: Yes Plan: - on morphine and oxy (15) Elevated d-dimer Is this a current diagnosis for this admission?: Yes Plan: likely due to high inflammatory state caused by morbid obesity and infection - BLE duplex US this admission was negative for DVT - CTA chest this admission negative for PE (16) Difficult airway Qualifiers: Encounter type: subsequent encounter Qualified Code(s): T88.4XXD - Failed or difficult intubation, subsequent encounter Is this a current diagnosis for this admission?: Yes Plan: due to morbid obesity, a MATTHEW was technically difficult and was unable to be performed (attempted but anesthesia was unable to secure her airway). A second attempt at a MATTHEW was planned on 02/02 but anesthesia declined to attempt this again as they stated patient's airway is extremely tenuous and they were barely able to safely intubate the patient previously. Cardiology, Dr. Kimbrough, was also concerned after speaking with them that he would likely not have success on the second attempt either. 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 It would be helpful if the patient lost a significant amount of weight over the next 6 weeks as this may assist with the difficult anatomy of her neck. - will discuss again with cardiology given persistent bacteremia and inability to transfer to another site without MATTHEW, we may need to re-attempt MATTHEW here at [facility] again this hospitalization - Plan Summary Summary: Patient is being treated for enterococcus bacteremia with 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 Unable to confirm due to failed MATTHEW attempts. Currently on ceftri/ampi until February. She would need to follow up at a tertiary care center for MATTHEW or possible cardiac MRI to assess valvular function and CT surgery evaluation. - Time Time Spent with patient: 15-24 minutes Medications reviewed and adjusted accordingly: Yes Anticipated Discharge Disposition: Home, Self Care Anticipated Discharge Timeframe: tbd
[2020-02-22] MEDS: INSULIN GLARGINE,HUM.REC.ANLOG 1,000 UNIT/10 ML VIAL SUBCUT SCH (21:36)
[2020-02-22] MEDS: PRAZOSIN HCL 1 MG PO SCH (21:37)
[2020-02-22] MEDS: SENNOSIDES/DOCUSATE 8.6-50 MG 1 EACH TABLET PO SCH (21:37)
[2020-02-23] MEDS: AMPICILLIN SODIUM 2 GM in NORMAL SALINE 100 ML IV SCH ×6 (03:41→21:25)
[2020-02-23] MEDS: HYDROXYZINE PAMOATE 50 MG CAPSULE PO SCH ×3 (05:50→21:24)
[2020-02-23] MEDS: PANTOPRAZOLE SODIUM 40 MG TABLET.DR PO SCH (05:50)
[2020-02-23] MEDS: INSULIN LISPRO 100 UNIT/ML 3 ML VIAL SUBCUT SCH ×4 (07:09→21:47)
[2020-02-23] MEDS ORDERED: NORMAL SALINE 250 ML IV PRN ×2 (07:51)
[2020-02-23] MEDS: CEFTRIAXONE 2 GM/D5W RTU 2 GM/50 ML RTUPB IV SCH ×2 (09:23→21:25)
[2020-02-23] MEDS: CHOLECALCIFEROL (D3) 1,000 UNIT (25 MCG) TABLET PO SCH (09:23)
[2020-02-23] MEDS: SERTRALINE HCL 50 MG TABLET PO SCH (09:24)
[2020-02-23] MEDS: ZINC SULFATE 220 MG CAPSULE PO SCH (09:24)
[2020-02-23] MEDS: GABAPENTIN 300 MG CAPSULE PO SCH ×3 (09:24→18:00)
[2020-02-23] MEDS: ASCORBIC ACID 500 MG TABLET PO SCH ×2 (09:24→18:00)
[2020-02-23] MEDS: LACTOBACILLUS ACIDOPHILUS 250 MG TAB PO SCH (09:24)
[2020-02-23] MEDS: ENOXAPARIN SODIUM INJ 40 MG/0.4 ML DISP.SYRIN SUBCUT SCH (09:25)
[2020-02-23] MEDS: ACETAMINOPHEN 325 MG TABLET PO SCH ×3 (09:25→18:00)
[2020-02-23] MEDS: NORMAL SALINE 10 ML SDV (SCHEDULED) IV SCH ×2 (11:39→21:26)
[2020-02-23] MEDS: OXYCODONE HCL IR 5 MG TABLET PO PRN ×3 (12:00→21:24)
[2020-02-23] MEDS: ONDANSETRON HCL INJ/PF 4 MG/2 ML SDV IV PRN (12:52)
--- NOTE | 2020-02-23 14:50 | PDOC PROGRESS REPORT ---
Subjective Date:: 02/23/20 Subjective:: SARAHI ST is a 34 year old female with history of morbid obesity, FROYLAN, ast hma, diabetes mellitus, hypertension, anxiety and depression, who presents to the hospital with complaints of diffuse abdominal pain. The pain started 1 day ago. She describes it as aching pain which lasts several minutes. States it occurs every 15 minutes. Feels like a cramping sensation. Denies prior episodes. No notable aggravating or alleviating factors. Denies any relationship with food consumption. Admits to nausea but no vomiting. Denies any vaginal discharge. Denies any urinary symptoms.. Last sexual activity was in 2015. Preceding onset of this symptoms, she states she ate out on Monday. Subsequently became constipated and took a laxative. After that she had a few episodes of diarrhea on Monday and Monday. Pain started on Monday. In the ER, patient received work-up with CT abdomen pelvis without contrast. This incidentally picked up groundglass opacities in patient's lower lungs. Patient also noted to have hypoxia at 90% on room air. She has chronic issues with her breathing and often gets short of breath but is also quite overweight. She has not noted any recent worsening of her breathing. Noted to be febrile in the ER as well. Interval history: 01/23/2020: Patient was seen and examined. She still with high white count. No fever. Complains of abdominal wall pain. 01/24/2020: Patient was seen and examined. White count is improving. No fever. Complains of abdominal wall pain. 01/25/2020: Patient was seen and examined. White count is improving. Afebrile. Improving overall. Repeat cultures still positive for Enterococcus. 01/26/2020: Patient was seen and examined. Had low-grade fever of 100.6 last night. Stable on 4 L of nasal cannula oxygen." 01/27/2020 Still unclear where the source of the patient's infection might be. Per ID, they suspect intra-abdominal source such as the bowel or tract. We will repeat a CT abdomen and this time and on the pelvis as well. This will be done with IV and oral contrast to look for any potential abscesses could have formed along her bowel. She still having vaginal bleeding and states that sometimes she bleeds for an entire month. She does not follow with a stem teacher regularly as she does not have insurance. Patient states she feels okay today. MATTHEW is being arranged reportedly. Daptomycin continues. Lower WBC and lower hemoglobin down to 8. Latest blood culture is also positive for Enterococcus, same organism as the previous cultures per micro lab. 01/28/2020 CT abdomen/pelvis with contrast showed possible left renal mass and I have ordered a renal ultrasound to get a closer look at this. Renal ultrasound showed this is likely an abscess rather than a solid tumor. We will need urology opinion and I will give them a call to see if they would like the patient transferred for intervention or if IR would be able to drain this here. Patient remains afebrile. Blood cultures 1/2 growing MRSA. Patient believes the suspected abscess in her left kidney may be the source of her left upper quadrant and left flank pain. 01/29/2020 I called [facility] and spoke with the urologist on staff there and then he called their interventional radiologist had a lengthy discussion about the patient's imaging studies and how this should be addressed. They believe the farzad salcido's renal lesion is likely a phlegmon which may turn into an abscess in the near future. They recommended against attempting to drain this lesion until it becomes an actual liquid abscess. They also noted a lesion in the patient's spleen consistent with septic emboli and similar to the kidney lesion. I believe the patient has showered her organ systems with septic emboli likely from a central source, suspected to be infected endocarditis. MATTHEW was not able to be done as mentioned previously and this will need to be repeated in the near future. We will repeat blood cultures today and if these remain negative we may explore transfer to a CT surgery facility once we can confirm a valvular vegetation on MATTHEW. Patient has no new complaints today. I examined her buttock regions and did not see any open wounds that could be a source for MRSA infection. The patient had mentioned previously having some irritation and possibly an open wound in that area. 01/30/2020 Most recent set of results of blood cultures on 01/26 have now resulted as 1/2 bottles contaminated with coag negative staph, otherwise blood cultures are negative. Patient is continued on daptomycin. Blood cultures drawn yesterday are still pending. Patient states she feels slightly better. Dr. Kimbrough is planning to repeat MATTHEW attempt next week. This is certainly indicated given that she probably has a central source of bloodstream infection showering multiple organs, most likely infected endocarditis. Possible she seeded her heart valves from a skin infection became bacteremia. 01/31/2020 Blood cultures are growing staph species in 1/2 bottles, suspect this may be a contaminant. Patient is having a bit more pain in her left flank and abdomen likely due to the septic emboli in her kidney. She has been using morphine overnight and explained to her that this will not provide lasting pain relief and she should use the Percocet instead and reserve the morphine for breakthrough pain. I also discussed this with the nurse. I have ordered a MATTHEW to be done on Monday assuming Dr. Kimbrough is available for this. I noted she had a positive mycoplasma IgG antibody earlier in the admission she was approp riately treated with a course of azithromycin. Her blood cultures have not grown mycoplasma and this may be simply antibodies from an exposure in the past other than an active infection. D-dimer is higher. We will check PVL BLE to rule out DVT. There is no PE on a recent CTPA. 02/01/2020 Most recent 1/2 blood cultures still growing coag negative staph highly likely a contaminant. If this is the case, patient is to consecutive negative blood culture results from different days. We could say blood is likely cleared of infection as of 01/26. We continue to plan for MATTHEW hopefully on Monday. Order has been placed but the timing of the procedure will be entirely up to Dr. Kimbrough's availability. Patient likely has obesity hypoventilation syndrome and we should not push her oxygen towards 100%. She will likely breathe and feel better overall at a lower O2 saturation around 92% or higher. She is at risk for CO2 retention we do not keep this in mind. 02/02/2020 Patient still having significant left upper quadrant pain likely due to developing splenic abscess. We will repeat a CT abdomen/pelvis with contrast in the next 48 hours to see if this has gone from being a phlegmon to a drainable abscess. Per my discussion with [facility] interventional radiology, they did not recommend attempting to drain any septic emboli unless it had clear evidence of being a liquid abscess. I have added gabapentin to help with the pain and we will continue Percocet and then also morphine for breakthrough pain. Other than that, patient has no new complaints. Will hopefully have MATTHEW done again in the next 48 hours. This is pending Dr. Kimbrough availability. 02/03/2020 Unable to get MATTHEW today due to anesthesia refusing to attempt this again here they stated patient's airway is extremely tenuous and they were barely able to safely intubate the patient previously. Dr. Kimbrough was also concerned after speaking with them that he would likely not have success on the second attempt either. He recommended treating the patient with 6 weeks of IV antibiotics for presumed infective endocarditis. It would be helpful if the patient lost a significant amount of weight over the next 6 weeks as this may assist with the difficult anatomy of her neck. Patient could potentially be discharged home if case management is able to arrange outpatient infusions. She will need a PICC line placed and to have her central line removed. I will place an order for this to be done tomorrow. Patient will need a physician to follow-up her care after she leaves if she continues on IV antibiotics. She will need periodic labs over the next 6 weeks and someone to monitor these. 02/04/20 Patient was seen and examined at bedside. She is still complaining of left sided flank pain which is still likely from septic emboli to her left kidney. I have increased her percocet to q3 hrs and increased her morphine. She got a PICC line today for planned 6 weeks of abx. She is still currently requiring O2 support. Discharge planning still trying to work on setting up home infusion for dapto as well as home O2. Will repeat CT abdomen/pelvis to assess septic emboli to left kidney. 02/05/20 Patient was seen and examined at bedside. Still on her CPAP machine most of the time. Repeat blood culture drawn yesterday still growing Enterococcus. I have touched base with infectious disease regarding this and I was able to speak to Dr. Navarrete. She recommends to talk to the patient about her penicillin allergy possibly switch her over to ceftriaxone and ampicillin regimen since this is much better for Enterococcus. He also recommended to consult CT surgery for her splenic emboli and high suspicion for endocarditis. With her BMI I doubt that he will she will qualify for any surgery but will try to reach out to a CT surgeon tomorrow. We will also ask her about her penicillin allergy. Repeat CT abdomen and pelvis showed grossly stable appearance of the ill-defined area of hypoattenuation along the inferior left kidney. Stable linear area of hypoattenuation within the spleen. Morbid obesity with skin thickening along the pannus suggestive of panniculitis. Moderate left-sided pleural effusion I have changed her pain medications to morphine IR 10 mg every 4 since she claims that she responds more to morphine rather than Percocet. I have stopped her Percocet and her IV morphine. 02/06/20 Patient was seen and examined at bedside. She reports that her pain seems to be much better with the morphine IR however she feels that she is more nauseous with it as well. I have decreased her morphine to 5 mg every 6. I also discussed with her the recent infectious disease recommendation regarding amoxicillin challenge. She stated that she had a reaction to amoxicillin when she was 14 years old when she got it for dental procedure when she developed tongue swelling however she did not report any shortness of breath, no rashes, did not need to go to the emergency room because of severe allergic reaction. Since this remote penicillin allergy happened more than 15 years ago we we have decided to go ahead with challenging her with amoxicillin 50 mg and then observe her for 20 minutes and then full dose 500 mg/h of amoxicillin and observe her for another hour after that. She did not experience any symptoms with the 50 mg of amoxicillin. If she passed a challenge I would likely switch her antibiotics to ceftriaxone, ampicillin to treat her persistent enterococcal bacteremia. 02/07/20 Patient was seen and examined at bedside. Overall feels ok, reports that her oxygen needs from the nasal cannula may be coming down since the removal of pleural effusion yesterday. she is so far tolerating the ceftriaxone/ampicillin regimen. Still reports nausea and headache with the oral morphine so will trial her on [place] instead. She shared that she had a dental procedures a few months ago which she thought might be the source of her Endocarditis since she did not receive any abx. Will plan to repeat her blood cultures in 48 hrs. 02/08/20 Patient was seen and examined at bedside. She denied any new complains, still with pain on left side. Her hgb was noted to be 6.7 but she denies any melena, hematemesis. She was given 1 unit PRBC. Otherwise she is doing about the same. Plan to repeat blood culture on monday.She was complaining of right lower leg pain. Venous doppler ordered to rule out DVT 02/09/20 Patient was seen and examined at bedside. No new complains, remained afebrile. No chest pain, no SOB, still with stable left sided pain. I talked to her about putting PT on consult and she said she would like to try and could come off the CPAP and be on nasal cannula. Repeat blood culture tomorrow morning. hgb 8.0 today. She received 1 unit of PRBC 02/10/20 Patient was seen and examined at bedside. No new complains. She will be assessed by physical therapy today. Repeat blood cultures were drawn today. She has been afebrile al throughout. I have discussed her case with CT surgery PA at [facility] and he stated that they're ability to properly assess her is very limited because she does not have adequate imaging of her presumed endocarditis. She is on Day 4 of Ceftri/ampi regimen and repeat blood cultures were drawn today. 02/17/20 Care resumed today. Reviewed notes of last week. Her blood culture has been negative since 02/15/20. repeat Bcx 02/16/20 showed staph specie growth which she previously grew before and is suspected to be a contaminant. She is currently on D11 of ceftri/ampi. She is scheduled to undergo WBC scan today. repeat CT chest done showed large left pleural effusion. She had a previous thoracentesis 02/06/20 to drain the effusion she had on the same side. She has been afebrile and WBC is normal. 02/18/20 Patient was seen and examined at bedside. She is still on CPAP most of the time over her 5L of Nasal cannula. She underwent tagged WBC scan yesterday which was negative. She underwent repeat thoracentesis today to remove a left pleural effusion which has re accumulated since her last thoracentesis approx 10 days ago. Plan to repeat her blood culture tomorrow and if still growing staph epidermidis will likely need to pull out PICC line and replace it with another. 02/19/20 Patient was seen and examined at bedside. She reports that her breathing is much better after thoracentesis. Repeat blood cultures drawn today. She is otherwise stable. 02/20/20 Patient was seen and examined at bedside. No new complains, no acute events overnight. PICC line was replaced today. Latest blood culture 02/19/20 negative x 24 hrs. 02/21/20 Patient was seen and examined at bedside. Complaining of bloatedness. She had a bowel movement today. Otherwise no chest pain, no SOB. Afebrile, good appetite. 02/22/20 Patient was seen and examined at bedside. No acute events overnight. According to the nurse, she refused her lovenox injection and from previous observations she is rarely out of the chair. She is at a high risk for DVT and PE and I have told the patient that she needs to ambulate at least once a day. Antibiotics for endocarditis otherwise to continue. 02/23/20 Patient was seen and examined at bedside. No acute events overnight. Hgb noted to be 7.1 today, noactive bleeding I think this is 2/2 to her chronic medical condition and repeated blood draws. 1 Unit of PRBC ordered. Otherwise she denied any new chest pain, palpitations. importance of daily ambulation emphasized. Reason For Visit: HYPOXIA,FEVER Physical Exam Vital Signs: Temp Pulse Resp BP Pulse Ox 98.2 F 90 20 115/45 L 92 02/23/20 11:54 02/23/20 11:54 02/23/20 11:54 02/23/20 11:54 02/23/20 11:54 Intake & Output 02/22/20 02/23/20 02/24/20 06:59 06:59 06:59 Intake Total 1040 922 340 Balance 1040 922 340 Weight 180.2 kg General appearance: PRESENT: mild distress, morbidly obese Head exam: PRESENT: atraumatic, normocephalic Eye exam: PRESENT: EOMI, PERRLA Mouth exam: PRESENT: moist Neck exam: PRESENT: full ROM Respiratory exam: PRESENT: clear to auscultation syl, symmetrical, unlabored Cardiovascular exam: PRESENT: RRR, +S1, +S2 Pulses: PRESENT: +2 pedal pulses bilateral GI/Abdominal exam: PRESENT: normal bowel sounds, soft. ABSENT: rebound, tenderness Extremities exam: PRESENT: full ROM Musculoskeletal exam: PRESENT: full ROM Neurological exam: PRESENT: alert, awake, oriented to person, oriented to place, oriented to time, oriented to situation Psychiatric exam: PRESENT: normal mood Skin exam: PRESENT: normal color Results Laboratory Results: 02/22/20 11:10 02/22/20 11:10 02/23/20 09:14 Blood Type O POSITIVE Antibody Screen NEGATIVE 01/25/20 01/26/20 16:00 05:33 Creatine Kinase < 20 L 30 Impressions: Chest/Abdomen CTA 01/22/20 00:00 IMPRESSION: 1. No evidence of pulmonary embolus. 2. Scattered mosaic attenuation throughout the lungs possibly secondary to small airway disease or hypoventilatory change. 3. Trace left pleural effusion. Renal Ultrasound 01/28/20 00:00 IMPRESSION: Avascular approximately 3 cm mass off the inferior pole the left kidney. This most likely represents infectious or inflammatory process. PICC Line Insertion 02/04/20 00:00 IMPRESSION: SUCCESSFUL PLACEMENT OF A 5 FR DUAL LUMEN 44 CM PICC IN THE LEFT BASILIC VEIN. Venous Doppler Study 02/09/20 00:00 IMPRESSION: No evidence of DVT or SVT in the visualized veins of the right leg. Limited exam with nonvisualization of the mid/distal superficial femoral and peroneal veins. Abdomen/Pelvis CT 02/13/20 00:00 IMPRESSION: 1. Large left pleural effusion with adjacent consolidation likely representing compressive atelectasis. Small right pleural effusion. 2. Scattered nodular opacities in the right lung are nonspecific in etiology and could be infectious. There is some interstitial opacities/septal thickening which could reflect pulmonary edema. 3. Exam is degraded due to patient body habitus. IMPRESSION: 1. Degraded examination due to patient body habitus. 2. Focal region of hypoattenuation in the inferomedial left kidney is similar in morphology, though may be slightly decreased in size from prior. 3. Slight decrease in size of region of hypoattenuation along the inferolateral spleen, possibly representing a subcapsular fluid collection. Chest CT 02/13/20 00:00 IMPRESSION: 1. Large left pleural effusion with adjacent consolidation likely representing compressive atelectasis. Small right pleural effusion. 2. Scattered nodular opacities in the right lung are nonspecific in etiology and could be infectious. There is some interstitial opacities/septal thickening which could reflect pulmonary edema. 3. Exam is degraded due to patient body habitus. IMPRESSION: 1. Degraded examination due to patient body habitus. 2. Focal region of hypoattenuation in the inferomedial left kidney is similar in morphology, though may be slightly decreased in size from prior. 3. Slight decrease in size of region of hypoattenuation along the inferolateral spleen, possibly representing a subcapsular fluid collection. WBC Scan Nuclear Medicine 02/17/20 00:00 IMPRESSION: NEGATIVE WHITE BLOOD CELL STUDY. NO ABNORMAL FOCAL AREAS OF UPTAKE. Thoracentesis Ultrasound 02/18/20 00:00 IMPRESSION: SUCCESSFUL THORACENTESIS USING ULTRASOUND GUIDANCE. Chest X-Ray 02/18/20 16:10 IMPRESSION: NO PNEUMOTHORAX ON THE IMAGE ACQUIRED 2 HOURS AFTER THORACENTESIS. NO CHANGE IN APPEARANCE OF THE CHEST. PICC Line Exchange 02/20/20 00:00 IMPRESSION: SUCCESSFUL OVER THE WIRE REPLACEMENT OF AN OLD PICC FOR A NEW ONE THAT IS 5 FR DUAL LUMEN 44 CM PICC IN THE LEFT ARM. Assessment and Plan - Diagnosis (1) Bacteremia due to Enterococcus Is this a current diagnosis for this admission?: Yes Plan: - CT abdomen/pelvis with contrast showed likely septic emboli to left kidney and spleen; discussed with urology and IR at [facility], will hold off on draining these unless they turn into an abscess rather than what appears to be phlegmon - cultures: Blood cultures 01/20+ for Enterococcus, 01/21+ for Enterococcus, 01/23+ for Enterococcus, 01/26 blood cultures growing coag negative staph contaminant in 1/2 bottles otherwise clear, 01/28 growing staph epidermidis - 02/03 blood culture again grew enterococcus and staph epidermidis - TTE 01/24/20 cannot exclude vegetation. LV systolic function is normal, EF 55 to 60%, mild MR, moderate AR. -negative blood culture 02/11/20. repeat Blood cx 02/16/20 grew staph specie which was thought to be a contaminant. If we start the 6 week count on her last negative blood culture, her last day of abx will be Mar 24 to complete 6 weeks of treatment -Patient passed amoxicillin challenge -I discussed her case with [facility] CT surgery department and I was able to speak to their PA Richard and unfortunately there is that their ability to help her is limited by the fact that she does not have adequate imaging to properly confirm endocarditis and assess valvular dysfunction. - on ceftri/ampi - PICC line replaced 02/20/20 (2) Suspected endocarditis Is this a current diagnosis for this admission?: Yes Plan: - highly suspecting given enterococcal bacteremia, septic infarct to spleen and kidney - TTE done 01/23 showed increased velocity across the aortic valve moderate amount of aortic regurgitation cannot totally exclude vegetation. - MATTHEW was attempted twice but due to her body habitus anesthesia has found it very difficult to secure her airway - she received several days of dapto before being switched to ceftri/ampi on 02/16/20 after passing the amoxicillin challenge - Last negative blood culture for enterococcus was 02/11/20. - I have spoken to Richard MCFADD[facility] for [facility] surgery however they cannot give any recommendations since her MATTHEW has not been done therefore valve dysfunction is not completely evaluated. - ID on board - 6 weeks of abx to be completed March 24, 2019 (3) Septic embolism Is this a current diagnosis for this admission?: Yes Plan: -Repeat CT abdomen/pelvis with IV and oral contrast showed suspected left renal mass Renal ultrasound showed likely left renal abscess rather than solid mass Had urology at outside hospital to review imaging to decide if suspected left renal abscess can be drained by IR or if the patient needs to be transferred for surgical intervention; they recommended continued IV antibiotics and repeat imaging in the next few weeks if patient worsens clinically as patient may need abscesses drained. -CT abdomen repeat showed stable appearance of previously noted splenic and renal infarcts/abscess - CT chest large left pleural effusion with adjacent consolidation likely re presenting compressive atelectasis. Small right pleural effusion. Scattered nodular opacities in the right lung are nonspecific in etiology could be infectious. -ceftri/ampi started 02/06/20. last negative blood culture Feb 10 so march 24 will be her last dose of abx to complete 6 weeks of abx (4) Acute on chronic respiratory failure with hypoxemia Is this a current diagnosis for this admission?: Yes Plan: - still requiring O2 support, was not previously on o2 at home - COVID negative -CT showed moderate-sized pleural effusion on 02/05/20. repeat Ct chest showed reaccumulation of pleural fluid left -Status post thoracentesis 02/06/20 was able to remove approximately 800 mL of fluid sent for analysis. - s/p 2nd thoracentesis 02/18/20 drained 650 ml [place]il[place] colored fluid, sent for analysis -1st Pleural fluid analysis culture and Gram stain negative - Awaiting 2nd Pleural fluid analysis - +ve lights criteria Exudative first Pleural fluid analysis. Likely from ongoing infection - continue CPAP PRN and at night (5) Pleural effusion due to bacterial infection Is this a current diagnosis for this admission?: Yes Plan: - had a previous thoracentesis 02/06/20 exudative by Lights criteria, cultures were negative. Cytology showed reactive cells, no malignancy - repeat CT chest showed that this has reaccumulated - s/p repeat thoracentesis 02/18/20. drained 650 ml [place] fluid. Sent for analysis (6) Normocytic anemia Is this a current diagnosis for this admission?: Yes Plan: - Hgb 6.7>8.0>7.7>7.1 post transfusion likely due to chronic medical condition on top of blood draws - I do not think she has any active bleeding - s/p 1 unit PRBC 02/08/20 - s/p 1 u PRBC 02/23/20 (7) FROYLAN on CPAP Is this a current diagnosis for this admission?: Yes Plan: nocturnal cpap. She mainly wears this because she is sleeping al throughout the day otherwise she feels she can do PT without it. (8) Panniculitis Is this a current diagnosis for this admission?: Yes Plan: -Antibiotic switch from Dapto to ceftriaxone/ampicillin. (9) Diabetes mellitus type 2 in obese Is this a current diagnosis for this admission?: Yes Plan: - continue SSI, hypoglycemia protocol and accucheck (10) Sepsis Qualifiers: Sepsis type: sepsis due to unspecified organism Sepsis acute organ dysfunction status: without acute organ dysfunction Qualified Code(s): A41.9 - Sepsis, unspecified organism Is this a current diagnosis for this admission?: Yes Plan: RESOLVED - Leukocytosis, febrile, hypoxic, tachycardic. - source likely endocarditis -Dapto switched to ceftriaxone/ampicillin started 02/06/20 (11) Morbid obesity with BMI of 70 and over, adult Is this a current diagnosis for this admission?: Yes Plan: - BMI over 70 - advised diet and lifestyle modification (12) Essential hypertension Is this a current diagnosis for this admission?: Yes (13) Menometrorrhagia Is this a current diagnosis for this admission?: Yes (14) Chronic pain Qualifiers: Chronic pain type: other chronic pain Qualified Code(s): G89.29 - Other chronic pain Is this a current diagnosis for this admission?: Yes Plan: - on morphine and oxy (15) Elevated d-dimer Is this a current diagnosis for this admission?: Yes Plan: likely due to high inflammatory state caused by morbid obesity and infection - BLE duplex US this admission was negative for DVT - CTA chest this admission negative for PE (16) Difficult airway Qualifiers: Encounter type: subsequent encounter Qualified Code(s): T88.4XXD - Failed or difficult intubation, subsequent encounter Is this a current diagnosis for this admission?: Yes - Plan Summary Summary: Patient is being treated for enterococcus bacteremia with 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 Unable to confirm due to failed MATTHEW attempts. Sage ntly on ceftri/ampi until February. She would need to follow up at a tertiary care center for MATTHEW or possible cardiac MRI to assess valvular function and CT surgery evaluation. - Time Time Spent with patient: 25-34 minutes Medications reviewed and adjusted accordingly: Yes Anticipated Discharge Disposition: Home, Self Care Anticipated Discharge Timeframe: tbd
[2020-02-23] MEDS: NORMAL SALINE 10 ML SDV (AFTER EACH USE) IV PRN (19:30)
[2020-02-23 20:11] LABS: HEMATOCRIT 26.3 % (36.0-47.0); HEMOGLOBIN 8.3 g/dL (12.0-15.5); MEAN CORPUSCULAR HEMOGLOBIN 27.1 pg (27.0-33.4); MEAN CORPUSCULAR HGB CONC 31.5 g/dL (32.0-36.0); MEAN CORPUSCULAR VOLUME 86 fl (80-97); PLATELET COUNT 287 10^3/uL (150-450); RED BLOOD COUNT 3.06 10^6/uL (3.72-5.28); RED CELL DISTRIBUTION WIDTH 18.6 % (11.5-14.0); WHITE BLOOD COUNT 9.4 10^3/uL (4.0-10.5)
[2020-02-23 20:32] LABS: ABSOLUTE LYMPHOCYTES# (MANUAL) 1.3 10^3/uL (0.5-4.7); ABSOLUTE MONOCYTES # (MANUAL) 0.5 10^3/uL (0.1-1.4); BAND NEUTROPHILS % (MANUAL) 1 % (3-5); BASOPHILS % (MANUAL) 0 % (0-2); EOSINOPHILS % (MANUAL) 2 % (0-6); LYMPHOCYTES % (MANUAL) 14 % (13-45); MONOCYTES % (MANUAL) 5 % (3-13); NUCLEATED RED BLOOD CELLS 3 /100 WBC (0); SEGMENTED NEUTROPHILS % (MAN) 78 % (42-78); TOTAL CELLS COUNTED 100
[2020-02-23 20:33] LABS: ANISOCYTOSIS 1+; HYPOCHROMASIA 1+; PLATELET COMMENT ADEQUATE; POLYCHROMASIA 1+
[2020-02-23] MEDS: INSULIN GLARGINE,HUM.REC.ANLOG 1,000 UNIT/10 ML VIAL SUBCUT SCH (21:25)
[2020-02-23] MEDS: PRAZOSIN HCL 1 MG PO SCH (21:26)
[2020-02-23] MEDS: SENNOSIDES/DOCUSATE 8.6-50 MG 1 EACH TABLET PO SCH (21:28)
[2020-02-24] MEDS: AMPICILLIN SODIUM 2 GM in NORMAL SALINE 100 ML IV SCH ×6 (01:42→23:18)
[2020-02-24] MEDS: PANTOPRAZOLE SODIUM 40 MG TABLET.DR PO SCH (06:44)
[2020-02-24] MEDS: HYDROXYZINE PAMOATE 50 MG CAPSULE PO SCH ×2 (06:44→21:26)
[2020-02-24 07:10] LABS: HEMATOCRIT 25.9 % (36.0-47.0); HEMOGLOBIN 8.2 g/dL (12.0-15.5); MEAN CORPUSCULAR HGB CONC 31.4 g/dL (32.0-36.0); MEAN CORPUSCULAR VOLUME 86 fl (80-97); PLATELET COUNT 276 10^3/uL (150-450); RED BLOOD COUNT 3.02 10^6/uL (3.72-5.28); RED CELL DISTRIBUTION WIDTH 18.9 % (11.5-14.0); WHITE BLOOD COUNT 11.4 10^3/uL (4.0-10.5)
[2020-02-24 07:27] LABS: ABSOLUTE LYMPHOCYTES# (MANUAL) 1.5 10^3/uL (0.5-4.7); ABSOLUTE MONOCYTES # (MANUAL) 0.2 10^3/uL (0.1-1.4); ANISOCYTOSIS 2+; BASOPHILS % (MANUAL) 0 % (0-2); EOSINOPHILS % (MANUAL) 4 % (0-6); LYMPHOCYTES % (MANUAL) 13 % (13-45); MONOCYTES % (MANUAL) 2 % (3-13); NUCLEATED RED BLOOD CELLS 4 /100 WBC (0); SEGMENTED NEUTROPHILS % (MAN) 81 % (42-78); TOTAL CELLS COUNTED 100
[2020-02-24 07:28] LABS: OVALOCYTES 1+; PLATELET COMMENT ADEQUATE; POIKILOCYTOSIS 1+; POLYCHROMASIA SLIGHT; STOMATOCYTES 1+; TEAR DROP CELLS SLIGHT
[2020-02-24 07:33] LABS: ALBUMIN 3.3 g/dL (3.5-5.0); ALKALINE PHOSPHATASE 194 U/L (38-126); ASPARTATE AMINO TRANSFERASE 80 U/L (14-36); BILIRUBIN,DIRECT 0.6 mg/dL (0.0-0.4); BLOOD UREA NITROGEN 21 mg/dL (7-20); CALCIUM 9.1 mg/dL (8.4-10.2); CHLORIDE 101 mmol/L (98-107); GLUCOSE 101 mg/dL (75-110); POTASSIUM 4.7 mmol/L (3.6-5.0); TOTAL PROTEIN 6.7 g/dL (6.3-8.2)
[2020-02-24] MEDS: INSULIN LISPRO 100 UNIT/ML 3 ML VIAL SUBCUT SCH ×4 (07:39→21:20)
[2020-02-24 07:49] LABS: ANION GAP 9 (5-19); CARBON DIOXIDE 28 mmol/L (22-30)
[2020-02-24] MEDS: ASCORBIC ACID 500 MG TABLET PO SCH ×2 (10:35→17:17)
[2020-02-24] MEDS: CHOLECALCIFEROL (D3) 1,000 UNIT (25 MCG) TABLET PO SCH (10:35)
[2020-02-24] MEDS: GABAPENTIN 300 MG CAPSULE PO SCH ×3 (10:36→17:16)
[2020-02-24] MEDS: SERTRALINE HCL 50 MG TABLET PO SCH (10:36)
[2020-02-24] MEDS: ZINC SULFATE 220 MG CAPSULE PO SCH (10:36)
[2020-02-24] MEDS: ENOXAPARIN SODIUM INJ 40 MG/0.4 ML DISP.SYRIN SUBCUT SCH (10:37)
[2020-02-24] MEDS: NORMAL SALINE 10 ML SDV (SCHEDULED) IV SCH ×2 (10:38→21:26)
[2020-02-24] MEDS: ACETAMINOPHEN 325 MG TABLET PO SCH ×3 (10:56→17:17)
[2020-02-24] MEDS: CEFTRIAXONE 2 GM/D5W RTU 2 GM/50 ML RTUPB IV SCH ×2 (11:40→21:26)
--- NOTE | 2020-02-24 15:08 | PDOC PROGRESS REPORT ---
Subjective Date:: 02/24/20 Subjective:: SARAHI ST is a 34 year old female with history of morbid obesity, FROYLAN, ast hma, diabetes mellitus, hypertension, anxiety and depression, who presents to the hospital with complaints of diffuse abdominal pain. The pain started 1 day ago. She describes it as aching pain which lasts several minutes. States it occurs every 15 minutes. Feels like a cramping sensation. Denies prior episodes. No notable aggravating or alleviating factors. Denies any relationship with food consumption. Admits to nausea but no vomiting. Denies any vaginal discharge. Denies any urinary symptoms.. Last sexual activity was in 2015. Preceding onset of this symptoms, she states she ate out on Monday. Subsequently became constipated and took a laxative. After that she had a few episodes of diarrhea on Monday and Monday. Pain started on Monday. In the ER, patient received work-up with CT abdomen pelvis without contrast. This incidentally picked up groundglass opacities in patient's lower lungs. Patient also noted to have hypoxia at 90% on room air. She has chronic issues with her breathing and often gets short of breath but is also quite overweight. She has not noted any recent worsening of her breathing. Noted to be febrile in the ER as well. Interval history: 01/23/2020: Patient was seen and examined. She still with high white count. No fever. Complains of abdominal wall pain. 01/24/2020: Patient was seen and examined. White count is improving. No fever. Complains of abdominal wall pain. 01/25/2020: Patient was seen and examined. White count is improving. Afebrile. Improving overall. Repeat cultures still positive for Enterococcus. 01/26/2020: Patient was seen and examined. Had low-grade fever of 100.6 last night. Stable on 4 L of nasal cannula oxygen." 01/27/2020 Still unclear where the source of the patient's infection might be. Per ID, they suspect intra-abdominal source such as the bowel or tract. We will repeat a CT abdomen and this time and on the pelvis as well. This will be done with IV and oral contrast to look for any potential abscesses could have formed along her bowel. She still having vaginal bleeding and states that sometimes she bleeds for an entire month. 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 Patient states she feels okay today. MATTHEW is being arranged reportedly. Daptomycin continues. Lower WBC and lower hemoglobin down to 8. Latest blood culture is also positive for Enterococcus, same organism as the previous cultures per micro lab. 01/28/2020 CT abdomen/pelvis with contrast showed possible left renal mass and I have ordered a renal ultrasound to get a closer look at this. Renal ultrasound showed this is likely an abscess rather than a solid tumor. We will need urology opinion and I will give them a call to see if they would like the patient transferred for intervention or if IR would be able to drain this here. Patient remains afebrile. Blood cultures 1/2 growing MRSA. Patient believes the suspected abscess in her left kidney may be the source of her left upper quadrant and left flank pain. 01/29/2020 I called [facility] and spoke with the urologist on staff there and then he called their interventional radiologist had a lengthy discussion about the patient's imaging studies and how this should be addressed. They believe the farzad salcido's renal lesion is likely a phlegmon which may turn into an abscess in the near future. They recommended against attempting to drain this lesion until it becomes an actual liquid abscess. They also noted a lesion in the patient's spleen consistent with septic emboli and similar to the kidney lesion. I believe the patient has showered her organ systems with septic emboli likely from a central source, suspected to be infected endocarditis. MATTHEW was not able to be done as mentioned previously and this will need to be repeated in the near future. We will repeat blood cultures today and if these remain negative we may explore transfer to a CT surgery facility once we can confirm a valvular vegetation on MATTHEW. Patient has no new complaints today. I examined her buttock regions and did not see any open wounds that could be a source for MRSA infection. The patient had mentioned previously having some irritation and possibly an open wound in that area. 01/30/2020 Most recent set of results of blood cultures on 01/26 have now resulted as 1/2 bottles contaminated with coag negative staph, otherwise blood cultures are negative. Patient is continued on daptomycin. Blood cultures drawn yesterday are still pending. Patient states she feels slightly better. Dr. Kimbrough is planning to repeat MATTHEW attempt next week. This is certainly indicated given that she probably has a central source of bloodstream infection showering multiple organs, most likely infected endocarditis. Possible she seeded her heart valves from a skin infection became bacteremia. 01/31/2020 Blood cultures are growing staph species in 1/2 bottles, suspect this may be a contaminant. Patient is having a bit more pain in her left flank and abdomen likely due to the septic emboli in her kidney. She has been using morphine overnight and explained to her that this will not provide lasting pain relief and she should use the Percocet instead and reserve the morphine for breakthrough pain. I also discussed this with the nurse. I have ordered a MATTHEW to be done on Monday assuming Dr. Kimbrough is available for this. I noted she had a positive mycoplasma IgG antibody earlier in the admission she was approp riately treated with a course of azithromycin. Her blood cultures have not grown mycoplasma and this may be simply antibodies from an exposure in the past other than an active infection. D-dimer is higher. We will check PVL BLE to rule out DVT. There is no PE on a recent CTPA. 02/01/2020 Most recent 1/2 blood cultures still growing coag negative staph highly likely a contaminant. If this is the case, patient is to consecutive negative blood culture results from different days. We could say blood is likely cleared of infection as of 01/26. We continue to plan for MATTHEW hopefully on Monday. Order has been placed but the timing of the procedure will be entirely up to Dr. Kimbrough's availability. Patient likely has obesity hypoventilation syndrome and we should not push her oxygen towards 100%. She will likely breathe and feel better overall at a lower O2 saturation around 92% or higher. She is at risk for CO2 retention we do not keep this in mind. 02/02/2020 Patient still having significant left upper quadrant pain likely due to developing splenic abscess. We will repeat a CT abdomen/pelvis with contrast in the next 48 hours to see if this has gone from being a phlegmon to a drainable abscess. Per my discussion with [facility] interventional radiology, they did not recommend attempting to drain any septic emboli unless it had clear evidence of being a liquid abscess. I have added gabapentin to help with the pain and we will continue Percocet and then also morphine for breakthrough pain. Other than that, patient has no new complaints. Will hopefully have MATTHEW done again in the next 48 hours. This is pending Dr. Kimbrough availability. 02/03/2020 Unable to get MATTHEW today due to anesthesia refusing to attempt this again here they stated patient's airway is extremely tenuous and they were barely able to safely intubate the patient previously. Dr. Kimbrough was also concerned after speaking with them that he would likely not have success on the second attempt either. He recommended treating the patient with 6 weeks of IV antibiotics for presumed infective endocarditis. It would be helpful if the patient lost a significant amount of weight over the next 6 weeks as this may assist with the difficult anatomy of her neck. Patient could potentially be discharged home if case management is able to arrange outpatient infusions. She will need a PICC line placed and to have her central line removed. I will place an order for this to be done tomorrow. Patient will need a physician to follow-up her care after she leaves if she continues on IV antibiotics. She will need periodic labs over the next 6 weeks and someone to monitor these. 02/04/20 Patient was seen and examined at bedside. She is still complaining of left sided flank pain which is still likely from septic emboli to her left kidney. I have increased her percocet to q3 hrs and increased her morphine. She got a PICC line today for planned 6 weeks of abx. She is still currently requiring O2 support. Discharge planning still trying to work on setting up home infusion for dapto as well as home O2. Will repeat CT abdomen/pelvis to assess septic emboli to left kidney. 02/05/20 Patient was seen and examined at bedside. Still on her CPAP machine most of the time. Repeat blood culture drawn yesterday still growing Enterococcus. I have touched base with infectious disease regarding this and I was able to speak to Dr. Navarrete. She recommends to talk to the patient about her penicillin allergy possibly switch her over to ceftriaxone and ampicillin regimen since this is much better for Enterococcus. He also recommended to consult CT surgery for her splenic emboli and high suspicion for endocarditis. With her BMI I doubt that he will she will qualify for any surgery but will try to reach out to a CT surgeon tomorrow. We will also ask her about her penicillin allergy. Repeat CT abdomen and pelvis showed grossly stable appearance of the ill-defined area of hypoattenuation along the inferior left kidney. Stable linear area of hypoattenuation within the spleen. Morbid obesity with skin thickening along the pannus suggestive of panniculitis. Moderate left-sided pleural effusion I have changed her pain medications to morphine IR 10 mg every 4 since she claims that she responds more to morphine rather than Percocet. I have stopped her Percocet and her IV morphine. 02/06/20 Patient was seen and examined at bedside. She reports that her pain seems to be much better with the morphine IR however she feels that she is more nauseous with it as well. I have decreased her morphine to 5 mg every 6. I also discussed with her the recent infectious disease recommendation regarding amoxicillin challenge. She stated that she had a reaction to amoxicillin when she was 14 years old when she got it for dental procedure when she developed tongue swelling however she did not report any shortness of breath, no rashes, did not need to go to the emergency room because of severe allergic reaction. Since this remote penicillin allergy happened more than 15 years ago we we have decided to go ahead with challenging her with amoxicillin 50 mg and then observe her for 20 minutes and then full dose 500 mg/h of amoxicillin and observe her for another hour after that. She did not experience any symptoms with the 50 mg of amoxicillin. If she passed a challenge I would likely switch her antibiotics to ceftriaxone, ampicillin to treat her persistent enterococcal bacteremia. 02/07/20 Patient was seen and examined at bedside. Overall feels ok, reports that her oxygen needs from the nasal cannula may be coming down since the removal of pleural effusion yesterday. she is so far tolerating the ceftriaxone/ampicillin regimen. Still reports nausea and headache with the oral morphine so will trial her on [place] instead. She shared that she had a dental procedures a few months ago which she thought might be the source of her Endocarditis since she did not receive any abx. Will plan to repeat her blood cultures in 48 hrs. 02/08/20 Patient was seen and examined at bedside. She denied any new complains, still with pain on left side. Her hgb was noted to be 6.7 but she denies any melena, hematemesis. She was given 1 unit PRBC. Otherwise she is doing about the same. Plan to repeat blood culture on monday.She was complaining of right lower leg pain. Venous doppler ordered to rule out DVT 02/09/20 Patient was seen and examined at bedside. No new complains, remained afebrile. No chest pain, no SOB, still with stable left sided pain. I talked to her about putting PT on consult and she said she would like to try and could come off the CPAP and be on nasal cannula. Repeat blood culture tomorrow morning. hgb 8.0 today. She received 1 unit of PRBC 02/10/20 Patient was seen and examined at bedside. No new complains. She will be assessed by physical therapy today. Repeat blood cultures were drawn today. She has been afebrile al throughout. I have discussed her case with CT surgery PA at [facility] Richard and he stated that they're ability to properly assess her is very limited because she does not have adequate imaging of her presumed endocarditis. She is on Day 4 of Ceftri/ampi regimen and repeat blood cultures were drawn today. 02/17/20 Care resumed today. Reviewed notes of last week. Her blood culture has been negative since 02/15/20. repeat Bcx 02/16/20 showed staph specie growth which she previously grew before and is suspected to be a contaminant. She is currently on D11 of ceftri/ampi. She is scheduled to undergo WBC scan today. repeat CT chest done showed large left pleural effusion. She had a previous thoracentesis 02/06/20 to drain the effusion she had on the same side. She has been afebrile and WBC is normal. 02/18/20 Patient was seen and examined at bedside. She is still on CPAP most of the time over her 5L of Nasal cannula. She underwent tagged WBC scan yesterday which was negative. She underwent repeat thoracentesis today to remove a left pleural effusion which has re accumulated since her last thoracentesis approx 10 days ago. Plan to repeat her blood culture tomorrow and if still growing staph epidermidis will likely need to pull out PICC line and replace it with another. 02/19/20 Patient was seen and examined at bedside. She reports that her breathing is much better after thoracentesis. Repeat blood cultures drawn today. She is otherwise stable. 02/20/20 Patient was seen and examined at bedside. No new complains, no acute events overnight. PICC line was replaced today. Latest blood culture 02/19/20 negative x 24 hrs. 02/21/20 Patient was seen and examined at bedside. Complaining of bloatedness. She had a bowel movement today. Otherwise no chest pain, no SOB. Afebrile, good appetite. 02/22/20 Patient was seen and examined at bedside. No acute events overnight. According to the nurse, she refused her lovenox injection and from previous observations she is rarely out of the chair. She is at a high risk for DVT and PE and I have told the patient that she needs to ambulate at least once a day. Antibiotics for endocarditis otherwise to continue. 02/23/20 Patient was seen and examined at bedside. No acute events overnight. Hgb noted to be 7.1 today, noactive bleeding I think this is 2/2 to her chronic medical condition and repeated blood draws. 1 Unit of PRBC ordered. Otherwise she denied any new chest pain, palpitations. importance of daily ambulation emphasized. 02/24/20 Patient was seen and examined at bedside. She was sitting on a recliner chair comfortable. Reports kervin cute event overnight. She received 1 unit of PRBC yesterday and repeat hgb was 8.2. She was noted to have mild leukocytosis today but she remains afebrile so this is likely reactive from the blood transfusion. Reason For Visit: HYPOXIA,FEVER Physical Exam Vital Signs: Temp Pulse Resp BP Pulse Ox 97.5 F 100 20 131/56 H 100 02/24/20 12:00 02/24/20 12:00 02/24/20 12:00 02/24/20 12:00 02/24/20 12:00 Intake & Output 02/23/20 02/24/20 02/25/20 06:59 06:59 06:59 Intake Total 922 1220 260 Balance 922 1220 260 General appearance: PRESENT: cooperative, mild distress, morbidly obese Head exam: PRESENT: atraumatic, normocephalic Eye exam: PRESENT: EOMI, PERRLA Mouth exam: PRESENT: moist Neck exam: PRESENT: full ROM Respiratory exam: PRESENT: clear to auscultation syl, symmetrical, unlabored Cardiovascular exam: PRESENT: RRR, +S1, +S2 Pulses: PRESENT: +2 pedal pulses bilateral GI/Abdominal exam: PRESENT: normal bowel sounds, soft. ABSENT: rebound, tenderness Extremities exam: PRESENT: full ROM Musculoskeletal exam: PRESENT: full ROM Neurological exam: PRESENT: alert, awake, oriented to person, oriented to place, oriented to time, oriented to situation Psychiatric exam: PRESENT: normal mood Skin exam: PRESENT: normal color Results Laboratory Results: 02/24/20 06:45 02/24/20 06:45 02/23/20 02/24/20 02/24/20 20:01 06:45 06:45 WBC 9.4 11.4 H RBC 3.06 L 3.02 L Hgb 8.3 L 8.2 L Hct 26.3 L 25.9 L MCV 86 86 MCH 27.1 27.0 MCHC 31.5 L 31.4 L RDW 18.6 H 18.9 H Plt Count 287 276 Seg Neutrophils % Not Reportable Not Reportable Sodium 138.0 Potassium 4.7 Chloride 101 Carbon Dioxide 28 Anion Gap 9 BUN 21 H Creatinine 1.08 Est GFR ( Amer) > 60 Glucose 101 Calcium 9.1 Total Bilirubin 1.0 AST 80 H Alkaline Phosphatase 194 H Total Protein 6.7 Albumin 3.3 L 02/19/20 04:30 Blood Blood Culture - Final NO GROWTH IN 5 DAYS 02/19/20 05:23 Blood Blood Culture - Final NO GROWTH IN 5 DAYS 01/25/20 01/26/20 16:00 05:33 Creatine Kinase < 20 L 30 Impressions: Chest/Abdomen CTA 01/22/20 00:00 IMPRESSION: 1. No evidence of pulmonary embolus. 2. Scattered mosaic attenuation throughout the lungs possibly secondary to small airway disease or hypoventilatory change. 3. Trace left pleural effusion. Renal Ultrasound 01/28/20 00:00 IMPRESSION: Avascular approximately 3 cm mass off the inferior pole the left kidney. This most likely represents infectious or inflammatory process. PICC Line Insertion 02/04/20 00:00 IMPRESSION: SUCCESSFUL PLACEMENT OF A 5 FR DUAL LUMEN 44 CM PICC IN THE LEFT BASILIC VEIN. Venous Doppler Study 02/09/20 00:00 IMPRESSION: No evidence of DVT or SVT in the visualized veins of the right leg. Limited exam with nonvisualization of the mid/distal superficial femoral and peroneal veins. Abdomen/Pelvis CT 02/13/20 00:00 IMPRESSION: 1. Large left pleural effusion with adjacent consolidation likely representing compressive atelectasis. Small right pleural effusion. 2. Scattered nodular opacities in the right lung are nonspecific in etiology and could be infectious. There is some interstitial opacities/septal thickening which could reflect pulmonary edema. 3. Exam is degraded due to patient body habitus. IMPRESSION: 1. Degraded examination due to patient body habitus. 2. Focal region of hypoattenuation in the inferomedial left kidney is similar in morphology, though may be slightly decreased in size from prior. 3. Slight decrease in size of region of hypoattenuation along the inferolateral spleen, possibly representing a subcapsular fluid collection. Chest CT 02/13/20 00:00 IMPRESSION: 1. Large left pleural effusion with adjacent consolidation likely representing compressive atelectasis. Small right pleural effusion. 2. Scattered nodular opacities in the right lung are nonspecific in etiology and could be infectious. There is some interstitial opacities/septal thickening which could reflect pulmonary edema. 3. Exam is degraded due to patient body habitus. IMPRESSION: 1. Degraded examination due to patient body habitus. 2. Focal region of hypoattenuation in the inferomedial left kidney is similar in morphology, though may be slightly decreased in size from prior. 3. Slight decrease in size of region of hypoattenuation along the inferolateral spleen, possibly representing a subcapsular fluid collection. WBC Scan Nuclear Medicine 02/17/20 00:00 IMPRESSION: NEGATIVE WHITE BLOOD CELL STUDY. NO ABNORMAL FOCAL AREAS OF UPTAKE. Thoracentesis Ultrasound 02/18/20 00:00 IMPRESSION: SUCCESSFUL THORACENTESIS USING ULTRASOUND GUIDANCE. Chest X-Ray 02/18/20 16:10 IMPRESSION: NO PNEUMOTHORAX ON THE IMAGE ACQUIRED 2 HOURS AFTER THORACENTESIS. NO CHANGE IN APPEARANCE OF THE CHEST. PICC Line Exchange 02/20/20 00:00 IMPRESSION: SUCCESSFUL OVER THE WIRE REPLACEMENT OF AN OLD PICC FOR A NEW ONE THAT IS 5 FR DUAL LUMEN 44 CM PICC IN THE LEFT ARM. Assessment and Plan - Diagnosis (1) Bacteremia due to Enterococcus Is this a current diagnosis for this admission?: Yes Plan: - CT abdomen/pelvis with contrast showed likely septic emboli to left kidney and spleen; discussed with urology and IR at [facility], will hold off on draining these unless they turn into an abscess rather than what appears to be phlegmon - cultures: Blood cultures 01/20+ for Enterococcus, 01/21+ for Enterococcus, 01/23+ for Enterococcus, 01/26 blood cultures growing coag negative staph contaminant in 1/2 bottles otherwise clear, 01/28 growing staph epidermidis - 02/03 blood culture again grew enterococcus and staph epidermidis - TTE 01/24/20 cannot exclude vegetation. LV systolic function is normal, EF 55 to 60%, mild MR, moderate AR. -negative blood culture 02/11/20. repeat Blood cx 02/16/20 grew staph specie which was thought to be a contaminant. If we start the 6 week count on her last negative blood culture, her last day of abx will be Mar 24, 2020 to complete 6 weeks of treatment -Patient passed amoxicillin challenge -I discussed her case with [facility] CT surgery department and I was able to speak to their PA Richard and unfortunately there is that their ability to help her is limited by the fact that she does not have adequate imaging to properly confirm endocarditis and assess valvular dysfunction. - on ceftri/ampi - PICC line replaced 02/20/20 (2) Suspected endocarditis Is this a current diagnosis for this admission?: Yes Plan: - highly suspecting given enterococcal bacteremia, septic infarct to spleen and kidney - TTE done 01/23 showed increased velocity across the aortic valve moderate amount of aortic regurgitation cannot totally exclude vegetation. - MATTHEW was attempted twice but due to her body habitus anesthesia has found it very difficult to secure her airway - she received several days of dapto before being switched to ceftri/ampi on 02/16/20 after passing the amoxicillin challenge - Last negative blood culture for enterococcus was 02/11/20. - I have spoken to Richard MCFADDEN for [facility] surgery however they cannot give any recommendations since her MATTHEW has not been done therefore valve dysfunction is not completely evaluated. - ID on board - 6 weeks of abx to be completed March 24, 2019. She would need to follow up with CT surgery outpatient at a tertiary care center (3) Septic embolism Is this a current diagnosis for this admission?: Yes Plan: -Repeat CT abdomen/pelvis with IV and oral contrast showed suspected left renal mass Renal ultrasound showed likely left renal abscess rather than solid mass Had urology at outside hospital to review imaging to decide if suspected left renal abscess can be drained by IR or if the patient needs to be transferred for surgical intervention; they recommended continued IV antibiotics and repeat imaging in the next few weeks if patient worsens clinically as patient may need abscesses drained. -CT abdomen repeat showed stable appearance of previously noted splenic and renal infarcts/abscess - CT chest large left pleural effusion with adjacent consolidation likely representing compressive atelectasis. Small right pleural effusion. Scattered nodular opacities in the right lung are nonspecific in etiology could be infectious. -ceftri/ampi started 02/06/20. last negative blood culture Feb 10 so march 24 will be her last dose of abx to complete 6 weeks of abx (4) Acute on chronic respiratory failure with hypoxemia Is this a current diagnosis for this admission?: Yes Plan: - still requiring O2 support, was not previously on o2 at home - COVID negative -CT showed moderate-sized pleural effusion on 02/05/20. repeat Ct chest showed r eaccumulation of pleural fluid left -Status post thoracentesis 02/06/20 was able to remove approximately 800 mL of fluid sent for analysis. - s/p 2nd thoracentesis 02/18/20 drained 650 ml [place] colored fluid, sent for analysis -1st Pleural fluid analysis culture and Gram stain negative - Awaiting 2nd Pleural fluid analysis - +ve lights criteria Exudative first Pleural fluid analysis. Likely from ongoing infection - continue CPAP PRN and at night (5) Pleural effusion due to bacterial infection Is this a current diagnosis for this admission?: Yes Plan: - had a previous thoracentesis 02/06/20 exudative by Lights criteria, cultures were negative. Cytology showed reactive cells, no malignancy - repeat CT chest showed that this has reaccumulated - s/p repeat thoracentesis 02/18/20. drained 650 ml [place] fluid. Sent for anal ysis (6) Normocytic anemia Is this a current diagnosis for this admission?: Yes Plan: - Hgb 6.7>8.0>7.7>7.1 post transfusion likely due to chronic medical condition on top of blood draws - I do not think she has any active bleeding - s/p 1 unit PRBC 02/08/20 - s/p 1 u PRBC 02/23/20 (7) FROYLAN on CPAP Is this a current diagnosis for this admission?: Yes Plan: nocturnal cpap. She mainly wears this because she is sleeping al throughout the day otherwise she feels she can do PT without it. (8) Panniculitis Is this a current diagnosis for this admission?: Yes Plan: -Antibiotic switch from Dapto to ceftriaxone/ampicillin. (9) Diabetes mellitus type 2 in obese Is this a current diagnosis for this admission?: Yes Plan: - continue SSI, hypoglycemia protocol and accucheck (10) Sepsis Qualifiers: Sepsis type: sepsis due to unspecified organism Sepsis acute organ dys function status: without acute organ dysfunction Qualified Code(s): A41.9 - Sepsis, unspecified organism Is this a current diagnosis for this admission?: Yes Plan: RESOLVED - Leukocytosis, febrile, hypoxic, tachycardic. - source likely endocarditis -Dapto switched to ceftriaxone/ampicillin started 02/06/20 (11) Morbid obesity with BMI of 70 and over, adult Is this a current diagnosis for this admission?: Yes Plan: - BMI over 70 - advised diet and lifestyle modification (12) Essential hypertension Is this a current diagnosis for this admission?: Yes (13) Menometrorrhagia Is this a current diagnosis for this admission?: Yes (14) Chronic pain Qualifiers: Chronic pain type: other chronic pain Qualified Code(s): G89.29 - Other chronic pain Is this a current diagnosis for this admission?: Yes (15) Elevated d-dimer Is this a current diagnosis for this admission?: Yes Plan: likely due to high inflammatory state caused by morbid obesity and infection - BLE duplex US this admission was negative for DVT - CTA chest this admission negative for PE (16) Difficult airway Qualifiers: Encounter type: subsequent encounter Qualified Code(s): T88.4XXD - Failed or difficult intubation, subsequent encounter Is this a current diagnosis for this admission?: Yes Plan: due to morbid obesity, a MATTHEW was technically difficult and was unable to be performed (attempted but anesthesia was unable to secure her airway). A second attempt at a MATTHEW was planned on 02/02 but anesthesia declined to attempt this again as they stated patient's airway is extremely tenuous and they were barely able to safely intubate the patient previously. Cardiology, Dr. Kimbrough, was also concerned after speaking with them that he would likely not have success on the second attempt either. 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 It would be helpful if the patient lost a significant amount of weight over the next 6 weeks as this may assist with the difficult anatomy of her neck. 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 Unable to confirm due to failed MATTHEW attempts. Currently on ceftri/ampi until February. She would need to follow up at a tertiary care center for MATTHEW or possible cardiac MRI to assess valvular function and CT surgery evaluation. - Time Time Spent with patient: 15-24 minutes Medications reviewed and adjusted accordingly: Yes Anticipated Discharge Disposition: Home, Self Care Anticipated Discharge Timeframe: tbd
[2020-02-24] MEDS: OXYCODONE HCL IR 5 MG TABLET PO PRN (17:17)
[2020-02-24] MEDS ORDERED: FUROSEMIDE INJ/PF 20 MG/2 ML SDV IV ONE (17:24)
[2020-02-24] MEDS: NORMAL SALINE 10 ML SDV (AFTER EACH USE) IV PRN (19:01)
[2020-02-24] MEDS: INSULIN GLARGINE,HUM.REC.ANLOG 1,000 UNIT/10 ML VIAL SUBCUT SCH (21:25)
[2020-02-24] MEDS: PRAZOSIN HCL 1 MG PO SCH (21:26)
[2020-02-24] MEDS: SENNOSIDES/DOCUSATE 8.6-50 MG 1 EACH TABLET PO SCH (21:27)
[2020-02-25] MEDS: OXYCODONE HCL IR 5 MG TABLET PO PRN ×2 (00:40→19:15)
[2020-02-25] MEDS: AMPICILLIN SODIUM 2 GM in NORMAL SALINE 100 ML IV SCH ×6 (02:00→21:52)
[2020-02-25] MEDS: PANTOPRAZOLE SODIUM 40 MG TABLET.DR PO SCH (06:16)
[2020-02-25] MEDS: HYDROXYZINE PAMOATE 50 MG CAPSULE PO SCH ×3 (06:16→21:51)
[2020-02-25] MEDS: INSULIN LISPRO 100 UNIT/ML 3 ML VIAL SUBCUT SCH ×4 (08:47→21:01)
[2020-02-25] MEDS: ZINC SULFATE 220 MG CAPSULE PO SCH (11:14)
[2020-02-25] MEDS: SERTRALINE HCL 50 MG TABLET PO SCH (11:14)
[2020-02-25] MEDS: CHOLECALCIFEROL (D3) 1,000 UNIT (25 MCG) TABLET PO SCH (11:14)
[2020-02-25] MEDS: ACETAMINOPHEN 325 MG TABLET PO SCH ×3 (11:14→18:30)
[2020-02-25] MEDS: GABAPENTIN 300 MG CAPSULE PO SCH ×3 (11:14→18:31)
[2020-02-25] MEDS: ASCORBIC ACID 500 MG TABLET PO SCH ×2 (11:14→18:31)
[2020-02-25] MEDS: CEFTRIAXONE 2 GM/D5W RTU 2 GM/50 ML RTUPB IV SCH ×2 (11:15→21:50)
[2020-02-25] MEDS: NORMAL SALINE 10 ML SDV (SCHEDULED) IV SCH ×2 (11:16→21:49)
[2020-02-25] MEDS: ENOXAPARIN SODIUM INJ 40 MG/0.4 ML DISP.SYRIN SUBCUT SCH (11:16)
[2020-02-25] MEDS ORDERED: FUROSEMIDE INJ/PF 40 MG/4 ML SDV IV ONE (12:36)
--- NOTE | 2020-02-25 12:36 | PDOC PROGRESS REPORT ---
Subjective Date:: 02/25/20 Subjective:: 34 year old female with history of morbid obesity, FROYLAN, asthma, diabetes mellitu s, hypertension, anxiety and depression, who presents to the hospital with complaints of diffuse abdominal pain. The pain started 1 day ago. She describes it as aching pain which lasts several minutes. States it occurs every 15 minutes. Feels like a cramping sensation. Denies prior episodes. No notable aggravating or alleviating factors. Denies any relationship with food consumption. Admits to nausea but no vomiting. Denies any vaginal discharge. Denies any urinary symptoms.. Last sexual activity was in 2015. Preceding onset of this symptoms, she states she ate out on Monday. Subsequently became constipated and took a laxative. After that she had a few episodes of diarrhea on Monday and Monday. Pain started on Monday. In the ER, patient received work-up with CT abdomen pelvis without contrast. This incidentally picked up groundglass opacities in patient's lower lungs. Patient also noted to have hypoxia at 90% on room air. She has chronic issues with her breathing and often gets short of breath but is also quite overweight. She has not noted any recent worsening of her breathing. Noted to be febrile in the ER as well. Interval history: 01/23/2020: Patient was seen and examined. She still with high white count. No fever. Complains of abdominal wall pain. 01/24/2020: Patient was seen and examined. White count is improving. No fever. Complains of abdominal wall pain. 01/25/2020: Patient was seen and examined. White count is improving. Afebrile. Improving overall. Repeat cultures still positive for Enterococcus. 01/26/2020: Patient was seen and examined. Had low-grade fever of 100.6 last night. Stable on 4 L of nasal cannula oxygen." 01/27/2020 Still unclear where the source of the patient's infection might be. Per ID, they suspect intra-abdominal source such as the bowel or tract. We will repeat a CT abdomen and this time and on the pelvis as well. This will be done with IV and oral contrast to look for any potential abscesses could have formed along her bowel. She still having vaginal bleeding and states that sometimes she bleeds for an entire month. 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 Patient states she feels okay today. MATTHEW is being arranged reportedly. Daptomycin continues. Lower WBC and lower hemoglobin down to 8. Latest blood culture is also positive for Enterococcus, same organism as the previous cultures per micro lab. 01/28/2020 CT abdomen/pelvis with contrast showed possible left renal mass and I have ordered a renal ultrasound to get a closer look at this. Renal ultrasound showed this is likely an abscess rather than a solid tumor. We will need urol ogy opinion and I will give them a call to see if they would like the patient transferred for intervention or if IR would be able to drain this here. Patient remains afebrile. Blood cultures 1/2 growing MRSA. Patient believes the suspected abscess in her left kidney may be the source of her left upper quadrant and left flank pain. 01/29/2020 I called [facility] and spoke with the urologist on staff there and then he called their interventional radiologist had a lengthy discussion about the p atient's imaging studies and how this should be addressed. They believe the patient's renal lesion is likely a phlegmon which may turn into an abscess in the near future. They recommended against attempting to drain this lesion until it becomes an actual liquid abscess. They also noted a lesion in the patient's spleen consistent with septic emboli and similar to the kidney lesion. I believe the patient has showered her organ systems with septic emboli likely from a central source, suspected to be infected endocarditis. MATTHEW was not able to be done as mentioned previously and this will need to be repeated in the near future. We will repeat blood cultures today and if these remain negative we may explore transfer to a CT surgery facility once we can confirm a valvular vegetation on MATTHEW. Patient has no new complaints today. I examined her buttock regions and did not see any open wounds that could be a source for MRSA infection. The patient had mentioned previously having some irritation and possibly an open wound in that area. 01/30/2020 Most recent set of results of blood cultures on 01/26 have now resulted as 1/2 bottles contaminated with coag negative staph, otherwise blood cultures are negative. Patient is continued on daptomycin. Blood cultures drawn yesterday are still pending. Patient states she feels slightly better. Dr. Kimbrough is planning to repeat MATTHEW attempt next week. This is certainly indicated given that she probably has a central source of bloodstream infection showering multiple organs, most likely infected endocarditis. Possible she seeded her he art valves from a skin infection became bacteremia. 01/31/2020 Blood cultures are growing staph species in 1/2 bottles, suspect this may be a contaminant. Patient is having a bit more pain in her left flank and abdomen likely due to the septic emboli in her kidney. She has been using morphine ove rnight and explained to her that this will not provide lasting pain relief and she should use the Percocet instead and reserve the morphine for breakthrough pain. I also discussed this with the nurse. I have ordered a MATTHEW to be done on Monday assuming Dr. Kimbrough is available for this. I noted she had a positive mycoplasma IgG antibody earlier in the admission she was appropriately treated with a course of azithromycin. Her blood cultures have not grown mycoplasma and this may be simply antibodies from an exposure in the past other than an active infection. D-dimer is higher. We will check PVL BLE to rule out DVT. There is no PE on a recent CTPA. 02/01/2020 Most recent 1/2 blood cultures still growing coag negative staph highly likely a contaminant. If this is the case, patient is to consecutive negative blood culture results from different days. We could say blood is likely cleared of infection as of 01/26. We continue to plan for MATTHEW hopefully on Monday. Order has been placed but the timing of the procedure will be entirely up to Dr. Kimbrough's availability. Patient likely has obesity hypoventilation syndrome and we should not push her oxygen towards 100%. She will likely breathe and feel better overall at a lower O2 saturation around 92% or higher. She is at risk fo r CO2 retention we do not keep this in mind. 02/02/2020 Patient still having significant left upper quadrant pain likely due to developing splenic abscess. We will repeat a CT abdomen/pelvis with contrast in the next 48 hours to see if this has gone from being a phlegmon to a drainable abscess. Per my discussion with [facility] interventional radiology, they did not recommend attempting to drain any septic emboli unless it had clear evidence of being a liquid abscess. I have added gabapentin to help with the pain and we will continue Percocet and then also morphine for breakthrough pain. Other than that, patient has no new complaints. Will hopefully have MATTHEW done again in the next 48 hours. This is pending Dr. Kimbrough availability. 02/03/2020 Unable to get MATTHEW today due to anesthesia refusing to attempt this again here they stated patient's airway is extremely tenuous and they were barely able to safely intubate the patient previously. Dr. Kimbrough was also concerned after speaking with them that he would likely not have success on the second attempt either. He recommended treating the patient with 6 weeks of IV antibiotics for presumed infective endocarditis. It would be helpful if the patient lost a significant amount of weight over the next 6 weeks as this may assist with the difficult anatomy of her neck. Patient could potentially be discharged home if case management is able to arrange outpatient infusions. She will need a PICC line placed and to have her central line removed. I will place an order for this to be done tomorrow. Patient will need a physician to follow-up her care after she leaves if she continues on IV antibiotics. She will need periodic l abs over the next 6 weeks and someone to monitor these. 02/04/20 Patient was seen and examined at bedside. She is still complaining of left sided flank pain which is still likely from septic emboli to her left kidney. I have increased her percocet to q3 hrs and increased her morphine. She got a PICC line today for planned 6 weeks of abx. She is still currently requiring O2 support. Discharge planning still trying to work on setting up home infusion for dapto as well as home O2. Will repeat CT abdomen/pelvis to assess septic emboli to left kidney. 02/05/20 Patient was seen and examined at bedside. Still on her CPAP machine most of the time. Repeat blood culture drawn yesterday still growing Enterococcus. I have touched base with infectious disease regarding this and I was able to speak to Dr. Navarrete. She recommends to talk to the patient about her penicillin allergy possibly switch her over to ceftriaxone and ampicillin regimen since this is much better for Enterococcus. He also recommended to consult CT surgery for her splenic emboli and high suspicion for endocarditis. With her BMI I doubt that he will she will qualify for any surgery but will try to reach out to a CT surg billie tomorrow. We will also ask her about her penicillin allergy. Repeat CT abdomen and pelvis showed grossly stable appearance of the ill-defined area of hypoattenuation along the inferior left kidney. Stable linear area of hypoattenuation within the spleen. Morbid obesity with skin thickening along the pannus suggestive of panniculitis. Moderate left-sided pleural effusion I have changed her pain medications to morphine IR 10 mg every 4 since she claims that she responds more to morphine rather than Percocet. I have stopped her Percocet and her IV morphine. 02/06/20 Patient was seen and examined at bedside. She reports that her pain seems to be much better with the morphine IR however she feels that she is more nauseous with it as well. I have decreased her morphine to 5 mg every 6. I also discussed with her the recent infectious disease recommendation regarding amoxicillin challenge. She stated that she had a reaction to amoxicillin when she was 14 years old when she got it for dental procedure when she developed tongue swelling however she did not report any shortness of breath, no rashes, did not need to go to the emergency room because of severe allergic reaction. Since this remote penicillin allergy happened more than 15 years ago we we have decided to go ahead with challenging her with amoxicillin 50 mg and then observe her for 20 minutes and then full dose 500 mg/h of amoxicillin and observe her for another hour after that. She did not experience any symptoms with the 50 mg of amoxicillin. If she passed a challenge I would likely switch her antibiotics to ceftriaxone, ampicillin to treat her persistent enterococcal bacteremia. 02/07/20 Patient was seen and examined at bedside. Overall feels ok, reports that her oxygen needs from the nasal cannula may be coming down since the removal of pleural effusion yesterday. she is so far tolerating the ceftriaxone/ampicillin regimen. Still reports nausea and headache with the oral morphine so will trial her on [place] instead. She shared that she had a dental procedures a few months ago which she thought might be the source of her Endocarditis since she did not receive any abx. Will plan to repeat her blood cultures in 48 hrs. 02/08/20 Patient was seen and examined at bedside. She denied any new complains, still with pain on left side. Her hgb was noted to be 6.7 but she denies any melena, hematemesis. She was given 1 unit PRBC. Otherwise she is doing about the same. Plan to repeat blood culture on monday.She was complaining of right lower leg pain. Venous doppler ordered to rule out DVT 02/09/20 Patient was seen and examined at bedside. No new complains, remained afebrile. No chest pain, no SOB, still with stable left sided pain. I talked to her about putting PT on consult and she said she would like to try and could come off the CPAP and be on nasal cannula. Repeat blood culture tomorrow morning. hgb 8.0 today. She received 1 unit of PRBC 02/10/20 Patient was seen and examined at bedside. No new complains. She will be assessed by physical therapy today. Repeat blood cultures were drawn today. She has been afebrile al throughout. I have discussed her case with CT surgery PA at [facility] Richard and he stated that they're ability to properly assess her is very limited because she does not have adequate imaging of her presumed endocarditis. She is on Day 4 of Ceftri/ampi regimen and repeat blood cultures were drawn today. 02/17/20 Care resumed today. Reviewed notes of last week. Her blood culture has been negative since 02/15/20. repeat Bcx 02/16/20 showed staph specie growth which she previously grew before and is suspected to be a contaminant. She is currently on D11 of ceftri/ampi. She is scheduled to undergo WBC scan today. repeat CT chest done showed large left pleural effusion. She had a previous thoracentesis 02/06/20 to drain the effusion she had on the same side. She has been afebrile and WBC is normal. 02/18/20 Patient was seen and examined at bedside. She is still on CPAP most of the time over her 5L of Nasal cannula. She underwent tagged WBC scan yesterday which was negative. She underwent repeat thoracentesis today to remove a left pleural effusion which has re accumulated since her last thoracentesis approx 10 days ago. Plan to repeat her blood culture tomorrow and if still growing staph epidermidis will likely need to pull out PICC line and replace it with another. 02/19/20 Patient was seen and examined at bedside. She reports that her breathing is much better after thoracentesis. Repeat blood cultures drawn today. She is otherwise stable. 02/20/20 Patient was seen and examined at bedside. No new complains, no acute events overnight. PICC line was replaced today. Latest blood culture 02/19/20 negative x 24 hrs. 02/21/20 Patient was seen and examined at bedside. Complaining of bloatedness. She had a bowel movement today. Otherwise no chest pain, no SOB. Afebrile, good appetite. 02/22/20 Patient was seen and examined at bedside. No acute events overnight. According to the nurse, she refused her lovenox injection and from previous observations she is rarely out of the chair. She is at a high risk for DVT and PE and I have told the patient that she needs to ambulate at least once a day. Antibiotics for endocarditis otherwise to continue. 02/23/20 Patient was seen and examined at bedside. No acute events overnight. Hgb noted to be 7.1 today, noactive bleeding I think this is 2/2 to her chronic medical c ondition and repeated blood draws. 1 Unit of PRBC ordered. Otherwise she denied any new chest pain, palpitations. importance of daily ambulation emphasized. 02/24/20 Patient was seen and examined at bedside. She was sitting on a recliner chair comfortable. Reports kervin cute event overnight. She received 1 unit of PRBC yesterday and repeat hgb was 8.2. She was noted to have mild leukocytosis today but she remains afebrile so this is likely reactive from the blood transfusion. 02/25/2020-morbidly obese female comfortably in the chair communicating well. Complaining of abdomen tightness. No other complaints. Plan is to continue IV antibiotic therapy. And is presently on ampicillin, ceftriaxone. Afebrile. Reason For Visit: HYPOXIA,FEVER Physical Exam Vital Signs: Temp Pulse Resp BP Pulse Ox 98.4 F 102 H 20 135/66 H 95 02/25/20 08:45 02/25/20 08:00 02/25/20 08:00 02/25/20 08:00 02/25/20 08:00 Intake & Output 02/24/20 02/25/20 02/26/20 06:59 06:59 06:59 Intake Total 1220 2295 150 Balance 1220 2295 150 Weight 180.2 kg General appearance: PRESENT: no acute distress, morbidly obese Head exam: PRESENT: atraumatic Eye exam: PRESENT: PERRLA Mouth exam: PRESENT: neck supple Teeth exam: PRESENT: poor dentation Respiratory exam: PRESENT: decreased breath sounds Cardiovascular exam: PRESENT: RRR. ABSENT: diastolic murmur, rubs, systolic murmur Pulses: PRESENT: normal dorsalis pedis pul GI/Abdominal exam: PRESENT: normal bowel sounds, soft. ABSENT: distended, guarding, mass, organolmegaly, rebound, tenderness Rectal exam: PRESENT: deferred Extremities exam: PRESENT: +1 edema Neurological exam: PRESENT: alert, awake, oriented to person, oriented to place, oriented to time, oriented to situation, CN II-XII grossly intact. ABSENT: motor sensory deficit Psychiatric exam: PRESENT: appropriate affect, normal mood. ABSENT: homicidal ideation, suicidal ideation Results Laboratory Results: 02/24/20 06:45 02/24/20 06:45 01/25/20 01/26/20 16:00 05:33 Creatine Kinase < 20 L 30 Impressions: Chest/Abdomen CTA 01/22/20 00:00 IMPRESSION: 1. No evidence of pulmonary embolus. 2. Scattered mosaic attenuation throughout the lungs possibly secondary to small airway disease or hypoventilatory change. 3. Trace left pleural effusion. Renal Ultrasound 01/28/20 00:00 IMPRESSION: Avascular approximately 3 cm mass off the inferior pole the left kidney. This most likely represents infectious or inflammatory process. PICC Line Insertion 02/04/20 00:00 IMPRESSION: SUCCESSFUL PLACEMENT OF A 5 FR DUAL LUMEN 44 CM PICC IN THE LEFT BASILIC VEIN. Venous Doppler Study 02/09/20 00:00 IMPRESSION: No evidence of DVT or SVT in the visualized veins of the right leg. Limited exam with nonvisualization of the mid/distal superficial femoral and peroneal veins. Abdomen/Pelvis CT 02/13/20 00:00 IMPRESSION: 1. Large left pleural effusion with adjacent consolidation likely representing compressive atelectasis. Small right pleural effusion. 2. Scattered nodular opacities in the right lung are nonspecific in etiology and could be infectious. There is some interstitial opacities/septal thickening which could reflect pulmonary edema. 3. Exam is degraded due to patient body habitus. IMPRESSION: 1. Degraded examination due to patient body habitus. 2. Focal region of hypoattenuation in the inferomedial left kidney is similar in morphology, though may be slightly decreased in size from prior. 3. Slight decrease in size of region of hypoattenuation along the inferolateral spleen, possibly representing a subcapsular fluid collection. Chest CT 02/13/20 00:00 IMPRESSION: 1. Large left pleural effusion with adjacent consolidation likely representing compressive atelectasis. Small right pleural effusion. 2. Scattered nodular opacities in the right lung are nonspecific in etiology and could be infectious. There is some interstitial opacities/septal thickening which could reflect pulmonary edema. 3. Exam is degraded due to patient body habitus. IMPRESSION: 1. Degraded examination due to patient body habitus. 2. Focal region of hypoattenuation in the inferomedial left kidney is similar in morphology, though may be slightly decreased in size from prior. 3. Slight decrease in size of region of hypoattenuation along the inferolateral spleen, possibly representing a subcapsular fluid collection. WBC Scan Nuclear Medicine 02/17/20 00:00 IMPRESSION: NEGATIVE WHITE BLOOD CELL STUDY. NO ABNORMAL FOCAL AREAS OF UPTAKE. Thoracentesis Ultrasound 02/18/20 00:00 IMPRESSION: SUCCESSFUL THORACENTESIS USING ULTRASOUND GUIDANCE. Chest X-Ray 02/18/20 16:10 IMPRESSION: NO PNEUMOTHORAX ON THE IMAGE ACQUIRED 2 HOURS AFTER THORACENTESIS. NO CHANGE IN APPEARANCE OF THE CHEST. PICC Line Exchange 02/20/20 00:00 IMPRESSION: SUCCESSFUL OVER THE WIRE REPLACEMENT OF AN OLD PICC FOR A NEW ONE THAT IS 5 FR DUAL LUMEN 44 CM PICC IN THE LEFT ARM. Assessment and Plan - Diagnosis (1) Bacteremia due to Enterococcus Is this a current diagnosis for this admission?: Yes Plan: - CT abdomen/pelvis with contrast showed likely septic emboli to left kidney and spleen; discussed with urology and IR at [facility], will hold off on draining these unless they turn into an abscess rather than what appears to be phlegmon - cultures: Blood cultures 01/20+ for Enterococcus, 01/21+ for Enterococcus, 01/23+ for Enterococcus, 01/26 blood cultures growing coag negative staph contaminant in 1/2 bottles otherwise clear, 01/28 growing staph epidermidis - 02/03 blood culture again grew enterococcus and staph epidermidis - TTE 01/24/20 cannot exclude vegetation. LV systolic function is normal, EF 55 to 60%, mild MR, moderate AR. -negative blood culture 02/11/20. repeat Blood cx 02/16/20 grew staph specie which was thought to be a contaminant. If we start the 6 week count on her last negative blood culture, her last day of abx will be Mar 24, 2020 to complete 6 weeks of treatment -Patient passed amoxicillin challenge -I discussed her case with [facility] CT surgery department and I was able to speak to their PA Richard and unfortunately there is that their ability to help her is limited by the fact that she does not have adequate imaging to properly confirm endocarditis and assess valvular dysfunction. - on ceftri/ampi - PICC line replaced 02/20/20 02/24/2020-patient is going to receive antibiotics until March 24, 2020. Presently on ampicillin, ceftriaxone. Echocardiogram was done unable to get adequate imaging to rule out endocarditis. (2) Suspected endocarditis Is this a current diagnosis for this admission?: Yes Plan: - highly suspecting given enterococcal bacteremia, septic infarct to spleen and kidney - TTE done 01/23 showed increased velocity across the aortic valve moderate amount of aortic regurgitation cannot totally exclude vegetation. - MATTHEW was attempted twice but due to her body habitus anesthesia has found it very difficult to secure her airway - she received several days of dapto before being switched to ceftri/ampi on 02/16/20 after passing the amoxicillin challenge - Last negative blood culture for enterococcus was 02/11/20. - I have spoken to Richard MCFADDEN for [facility] CT surgery however they cannot give any recommendations since her MATTHWE has not been done therefore valve dysfunction is not completely evaluated. - ID on board - 6 weeks of abx to be completed March 24, 2019. She would need to follow up with CT surgery outpatient at a tertiary care center 02/25/2020-patient is on IV Rocephin, ampicillin of antibiotic therapy will be March 24. (3) Acute on chronic respiratory failure with hypoxemia Is this a current diagnosis for this admission?: Yes Plan: - still requiring O2 support, was not previously on o2 at home - COVID negative -CT showed moderate-sized pleural effusion on 02/05/20. repeat Ct chest showed reaccumulation of pleural fluid left -Status post thoracentesis 02/06/20 was able to remove approximately 800 mL of fluid sent for analysis. - s/p 2nd thoracentesis 02/18/20 drained 650 ml shiloh colored fluid, sent for a nalysis -1st Pleural fluid analysis culture and Gram stain negative - Awaiting 2nd Pleural fluid analysis - +ve lights criteria Exudative first Pleural fluid analysis. Likely from ongoing infection - continue CPAP PRN and at night (4) Pleural effusion due to bacterial infection Is this a current diagnosis for this admission?: Yes Plan: - had a previous thoracentesis 02/06/20 exudative by Lights criteria, cultures were negative. Cytology showed reactive cells, no malignancy - repeat CT chest showed that this has reaccumulated - s/p repeat thoracentesis 02/18/20. drained 650 ml shiloh fluid. Sent for analysis (5) FROYLAN on CPAP Is this a current diagnosis for this admission?: No Plan: nocturnal cpap. She mainly wears this because she is sleeping al throughout the day otherwise she feels she can do PT without it. (6) Normocytic anemia Is this a current diagnosis for this admission?: No Plan: - Hgb 6.7>8.0>7.7>7.1 post transfusion likely due to chronic medical condition on top of blood draws - I do not think she has any active bleeding - s/p 1 unit PRBC 02/08/20 - s/p 1 u PRBC 02/23/20 (7) Panniculitis Is this a current diagnosis for this admission?: Yes Plan: -Antibiotic switch from Dapto to ceftriaxone/ampicillin. (8) Morbid obesity with BMI of 70 and over, adult Is this a current diagnosis for this admission?: No Plan: - BMI over 70 - advised diet and lifestyle modification (9) Diabetes mellitus type 2 in obese Is this a current diagnosis for this admission?: No Plan: - continue SSI, hypoglycemia protocol and accucheck (10) Sepsis Qualifiers: Sepsis type: sepsis due to unspecified organism Sepsis acute organ dysfunction status: without acute organ dysfunction Qualified Code(s): A41.9 - Sepsis, unspecified organism Is this a current diagnosis for this admission?: Yes Plan: RESOLVED - Leukocytosis, febrile, hypoxic, tachycardic. 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 Unable to confirm due to failed MATTHEW attempts. Currently on ceftri/ampi until February. She would need to follow up at a tertiary care center for MATTHEW or possible cardiac MRI to assess valvular function and CT surgery evaluation. - Time Anticipated Discharge Disposition: Home, Self Care Anticipated Discharge Timeframe: mar 24
[2020-02-25] MEDS: PRAZOSIN HCL 1 MG PO SCH (21:49)
[2020-02-25] MEDS: INSULIN GLARGINE,HUM.REC.ANLOG 1,000 UNIT/10 ML VIAL SUBCUT SCH (21:49)
[2020-02-25] MEDS: SENNOSIDES/DOCUSATE 8.6-50 MG 1 EACH TABLET PO SCH (21:50)
[2020-02-26] MEDS ORDERED: FUROSEMIDE INJ/PF 40 MG/4 ML SDV ONE (00:41)
[2020-02-26] MEDS ORDERED: FUROSEMIDE INJ/PF 40 MG/4 ML SDV IV ONE (00:55)
[2020-02-26] MEDS: AMPICILLIN SODIUM 2 GM in NORMAL SALINE 100 ML IV SCH ×6 (04:06→23:30)
[2020-02-26] MEDS: HYDROXYZINE PAMOATE 50 MG CAPSULE PO SCH ×5 (06:34→23:29)
[2020-02-26] MEDS: PANTOPRAZOLE SODIUM 40 MG TABLET.DR PO SCH (06:34)
[2020-02-26] MEDS: OXYCODONE HCL IR 5 MG TABLET PO PRN ×2 (06:35→20:11)
[2020-02-26] MEDS: INSULIN LISPRO 100 UNIT/ML 3 ML VIAL SUBCUT SCH ×4 (08:00→21:07)
[2020-02-26 08:11] LABS: HEMOGLOBIN 8.1 g/dL (12.0-15.5); MEAN CORPUSCULAR HEMOGLOBIN 27.2 pg (27.0-33.4); MEAN CORPUSCULAR HGB CONC 31.3 g/dL (32.0-36.0); MEAN CORPUSCULAR VOLUME 87 fl (80-97); PLATELET COUNT 266 10^3/uL (150-450); RED CELL DISTRIBUTION WIDTH 19.9 % (11.5-14.0); WHITE BLOOD COUNT 10.4 10^3/uL (4.0-10.5)
[2020-02-26 08:21] LABS: ALBUMIN 3.1 g/dL (3.5-5.0); ALKALINE PHOSPHATASE 189 U/L (38-126); ANION GAP 10 (5-19); ASPARTATE AMINO TRANSFERASE 64 U/L (14-36); BILIRUBIN,DIRECT 0.6 mg/dL (0.0-0.4); BLOOD UREA NITROGEN 24 mg/dL (7-20); CALCIUM 8.7 mg/dL (8.4-10.2); CARBON DIOXIDE 27 mmol/L (22-30); CHLORIDE 101 mmol/L (98-107); GLUCOSE 113 mg/dL (75-110); POTASSIUM 4.3 mmol/L (3.6-5.0); TOTAL PROTEIN 6.6 g/dL (6.3-8.2)
[2020-02-26 09:07] LABS: ABSOLUTE LYMPHOCYTES# (MANUAL) 1.1 10^3/uL (0.5-4.7); ABSOLUTE MONOCYTES # (MANUAL) 0.2 10^3/uL (0.1-1.4); ANISOCYTOSIS 2+; BAND NEUTROPHILS % (MANUAL) 1 % (3-5); BASOPHILS % (MANUAL) 0 % (0-2); EOSINOPHILS % (MANUAL) 6 % (0-6); HYPOCHROMASIA 1+; LYMPHOCYTES % (MANUAL) 9 % (13-45); MONOCYTES % (MANUAL) 2 % (3-13); NUCLEATED RED BLOOD CELLS 2 /100 WBC (0); SEGMENTED NEUTROPHILS % (MAN) 80 % (42-78); TOTAL CELLS COUNTED 100
[2020-02-26 09:09] LABS: OVALOCYTES 1+; POIKILOCYTOSIS 1+; POLYCHROMASIA 2+; TEAR DROP CELLS 1+
[2020-02-26 09:12] LABS: PLATELET COMMENT ADEQUATE
[2020-02-26] MEDS: CHOLECALCIFEROL (D3) 1,000 UNIT (25 MCG) TABLET PO SCH (11:24)
[2020-02-26] MEDS: CEFTRIAXONE 2 GM/D5W RTU 2 GM/50 ML RTUPB IV SCH ×2 (11:24→23:28)
[2020-02-26] MEDS: GABAPENTIN 300 MG CAPSULE PO SCH ×3 (11:25→17:59)
[2020-02-26] MEDS: ACETAMINOPHEN 325 MG TABLET PO SCH ×3 (11:25→17:58)
[2020-02-26] MEDS: ASCORBIC ACID 500 MG TABLET PO SCH ×2 (11:25→17:58)
[2020-02-26] MEDS: ENOXAPARIN SODIUM INJ 40 MG/0.4 ML DISP.SYRIN SUBCUT SCH (11:27)
[2020-02-26] MEDS: ZINC SULFATE 220 MG CAPSULE PO SCH (11:27)
[2020-02-26] MEDS: NORMAL SALINE 10 ML SDV (SCHEDULED) IV SCH ×2 (11:28→23:30)
[2020-02-26] MEDS: SERTRALINE HCL 50 MG TABLET PO SCH (12:41)
[2020-02-26] MEDS ORDERED: SUCRALFATE 1 GM TABLET PO PRN (13:17)
--- NOTE | 2020-02-26 13:23 | PDOC PROGRESS REPORT ---
Subjective Date:: 02/26/20 Subjective:: 34 year old female with history of morbid obesity, FROYLAN, asthma, diabetes mellitu s, hypertension, anxiety and depression, who presents to the hospital with complaints of diffuse abdominal pain. The pain started 1 day ago. She describes it as aching pain which lasts several minutes. States it occurs every 15 minutes. Feels like a cramping sensation. Denies prior episodes. No notable aggravating or alleviating factors. Denies any relationship with food consumption. Admits to nausea but no vomiting. Denies any vaginal discharge. Denies any urinary symptoms.. Last sexual activity was in 2015. Preceding onset of this symptoms, she states she ate out on Monday. Subsequently became constipated and took a laxative. After that she had a few episodes of diarrhea on Monday and Monday. Pain started on Monday. In the ER, patient received work-up with CT abdomen pelvis without contrast. This incidentally picked up groundglass opacities in patient's lower lungs. Patient also noted to have hypoxia at 90% on room air. She has chronic issues with her breathing and often gets short of breath but is also quite overweight. She has not noted any recent worsening of her breathing. Noted to be febrile in the ER as well. Interval history: 01/23/2020: Patient was seen and examined. She still with high white count. No fever. Complains of abdominal wall pain. 01/24/2020: Patient was seen and examined. White count is improving. No fever. Complains of abdominal wall pain. 01/25/2020: Patient was seen and examined. White count is improving. Afebrile. Improving overall. Repeat cultures still positive for Enterococcus. 01/26/2020: Patient was seen and examined. Had low-grade fever of 100.6 last night. Stable on 4 L of nasal cannula oxygen." 01/27/2020 Still unclear where the source of the patient's infection might be. Per ID, they suspect intra-abdominal source such as the bowel or tract. We will repeat a CT abdomen and this time and on the pelvis as well. This will be done with IV and oral contrast to look for any potential abscesses could have formed along her bowel. She still having vaginal bleeding and states that sometimes she bleeds for an entire month. She does not follow with a production broacher regularly as she does not have insurance. Patient states she feels okay today. MATTHEW is being arranged reportedly. Daptomycin continues. Lower WBC and lower hemoglobin down to 8. Latest blood culture is also positive for Enterococcus, same organism as the previous cultures per micro lab. 01/28/2020 CT abdomen/pelvis with contrast showed possible left renal mass and I have ordered a renal ultrasound to get a closer look at this. Renal ultrasound showed this is likely an abscess rather than a solid tumor. We will need urol ogy opinion and I will give them a call to see if they would like the patient transferred for intervention or if IR would be able to drain this here. Patient remains afebrile. Blood cultures 1/2 growing MRSA. Patient believes the suspected abscess in her left kidney may be the source of her left upper quadrant and left flank pain. 01/29/2020 I called [facility] and spoke with the urologist on staff there and then he called their interventional radiologist had a lengthy discussion about the p atient's imaging studies and how this should be addressed. They believe the patient's renal lesion is likely a phlegmon which may turn into an abscess in the near future. They recommended against attempting to drain this lesion until it becomes an actual liquid abscess. They also noted a lesion in the patient's spleen consistent with septic emboli and similar to the kidney lesion. I believe the patient has showered her organ systems with septic emboli likely from a central source, suspected to be infected endocarditis. MATTHEW was not able to be done as mentioned previously and this will need to be repeated in the near future. We will repeat blood cultures today and if these remain negative we may explore transfer to a CT surgery facility once we can confirm a valvular vegetation on MATTHEW. Patient has no new complaints today. I examined her buttock regions and did not see any open wounds that could be a source for MRSA infection. The patient had mentioned previously having some irritation and possibly an open wound in that area. 01/30/2020 Most recent set of results of blood cultures on 01/26 have now resulted as 1/2 bottles contaminated with coag negative staph, otherwise blood cultures are negative. Patient is continued on daptomycin. Blood cultures drawn yesterday are still pending. Patient states she feels slightly better. Dr. Kimbrough is planning to repeat MATTHEW attempt next week. This is certainly indicated given that she probably has a central source of bloodstream infection showering multiple organs, most likely infected endocarditis. Possible she seeded her he art valves from a skin infection became bacteremia. 01/31/2020 Blood cultures are growing staph species in 1/2 bottles, suspect this may be a contaminant. Patient is having a bit more pain in her left flank and abdomen likely due to the septic emboli in her kidney. She has been using morphine ove rnight and explained to her that this will not provide lasting pain relief and she should use the Percocet instead and reserve the morphine for breakthrough pain. I also discussed this with the nurse. I have ordered a MATTHEW to be done on Monday assuming Dr. Kimbrough is available for this. I noted she had a positive mycoplasma IgG antibody earlier in the admission she was appropriately treated with a course of azithromycin. Her blood cultures have not grown mycoplasma and this may be simply antibodies from an exposure in the past other than an active infection. D-dimer is higher. We will check PVL BLE to rule out DVT. There is no PE on a recent CTPA. 02/01/2020 Most recent 1/2 blood cultures still growing coag negative staph highly likely a contaminant. If this is the case, patient is to consecutive negative blood culture results from different days. We could say blood is likely cleared of infection as of 01/26. We continue to plan for MATTHEW hopefully on Monday. Order has been placed but the timing of the procedure will be entirely up to Dr. Kimbrough's availability. Patient likely has obesity hypoventilation syndrome and we should not push her oxygen towards 100%. She will likely breathe and feel better overall at a lower O2 saturation around 92% or higher. She is at risk fo r CO2 retention we do not keep this in mind. 02/02/2020 Patient still having significant left upper quadrant pain likely due to developing splenic abscess. We will repeat a CT abdomen/pelvis with contrast in the next 48 hours to see if this has gone from being a phlegmon to a drainable abscess. Per my discussion with [facility] interventional radiology, they did not recommend attempting to drain any septic emboli unless it had clear evidence of being a liquid abscess. I have added gabapentin to help with the pain and we will continue Percocet and then also morphine for breakthrough pain. Other than that, patient has no new complaints. Will hopefully have MATTHEW done again in the next 48 hours. This is pending Dr. Kimbrough availability. 02/03/2020 Unable to get MATTHEW today due to anesthesia refusing to attempt this again here they stated patient's airway is extremely tenuous and they were barely able to safely intubate the patient previously. Dr. Kimbrough was also concerned after speaking with them that he would likely not have success on the second attempt either. He recommended treating the patient with 6 weeks of IV antibiotics for presumed infective endocarditis. It would be helpful if the patient lost a significant amount of weight over the next 6 weeks as this may assist with the difficult anatomy of her neck. Patient could potentially be discharged home if case management is able to arrange outpatient infusions. She will need a PICC line placed and to have her central line removed. I will place an order for this to be done tomorrow. Patient will need a physician to follow-up her care after she leaves if she continues on IV antibiotics. She will need periodic l abs over the next 6 weeks and someone to monitor these. 02/04/20 Patient was seen and examined at bedside. She is still complaining of left sided flank pain which is still likely from septic emboli to her left kidney. I have increased her percocet to q3 hrs and increased her morphine. She got a PICC line today for planned 6 weeks of abx. She is still currently requiring O2 support. Discharge planning still trying to work on setting up home infusion for dapto as well as home O2. Will repeat CT abdomen/pelvis to assess septic emboli to left kidney. 02/05/20 Patient was seen and examined at bedside. Still on her CPAP machine most of the time. Repeat blood culture drawn yesterday still growing Enterococcus. I have touched base with infectious disease regarding this and I was able to speak to Dr. Navarrete. She recommends to talk to the patient about her penicillin allergy possibly switch her over to ceftriaxone and ampicillin regimen since this is much better for Enterococcus. He also recommended to consult CT surgery for her splenic emboli and high suspicion for endocarditis. With her BMI I doubt that he will she will qualify for any surgery but will try to reach out to a CT surg billie tomorrow. We will also ask her about her penicillin allergy. Repeat CT abdomen and pelvis showed grossly stable appearance of the ill-defined area of hypoattenuation along the inferior left kidney. Stable linear area of hypoattenuation within the spleen. Morbid obesity with skin thickening along the pannus suggestive of panniculitis. Moderate left-sided pleural effusion I have changed her pain medications to morphine IR 10 mg every 4 since she claims that she responds more to morphine rather than Percocet. I have stopped her Percocet and her IV morphine. 02/06/20 Patient was seen and examined at bedside. She reports that her pain seems to be much better with the morphine IR however she feels that she is more nauseous with it as well. I have decreased her morphine to 5 mg every 6. I also discussed with her the recent infectious disease recommendation regarding amoxicillin challenge. She stated that she had a reaction to amoxicillin when she was 14 years old when she got it for dental procedure when she developed tongue swelling however she did not report any shortness of breath, no rashes, did not need to go to the emergency room because of severe allergic reaction. Since this remote penicillin allergy happened more than 15 years ago we we have decided to go ahead with challenging her with amoxicillin 50 mg and then observe her for 20 minutes and then full dose 500 mg/h of amoxicillin and observe her for another hour after that. She did not experience any symptoms with the 50 mg of amoxicillin. If she passed a challenge I would likely switch her antibiotics to ceftriaxone, ampicillin to treat her persistent enterococcal bacteremia. 02/07/20 Patient was seen and examined at bedside. Overall feels ok, reports that her oxygen needs from the nasal cannula may be coming down since the removal of pleural effusion yesterday. she is so far tolerating the ceftriaxone/ampicillin regimen. Still reports nausea and headache with the oral morphine so will trial her on [place] instead. She shared that she had a dental procedures a few months ago which she thought might be the source of her Endocarditis since she did not receive any abx. Will plan to repeat her blood cultures in 48 hrs. 02/08/20 Patient was seen and examined at bedside. She denied any new complains, still with pain on left side. Her hgb was noted to be 6.7 but she denies any melena, hematemesis. She was given 1 unit PRBC. Otherwise she is doing about the same. Plan to repeat blood culture on monday.She was complaining of right lower leg pain. Venous doppler ordered to rule out DVT 02/09/20 Patient was seen and examined at bedside. No new complains, remained afebrile. No chest pain, no SOB, still with stable left sided pain. I talked to her about putting PT on consult and she said she would like to try and could come off the CPAP and be on nasal cannula. Repeat blood culture tomorrow morning. hgb 8.0 today. She received 1 unit of PRBC 02/10/20 Patient was seen and examined at bedside. No new complains. She will be assessed by physical therapy today. Repeat blood cultures were drawn today. She has been afebrile al throughout. I have discussed her case with CT surgery PA at [facility] and he stated that they're ability to properly assess her is very limited because she does not have adequate imaging of her presumed endocarditis. She is on Day 4 of Ceftri/ampi regimen and repeat blood cultures were drawn today. 02/17/20 Care resumed today. Reviewed notes of last week. Her blood culture has been negative since 02/15/20. repeat Bcx 02/16/20 showed staph specie growth which she previously grew before and is suspected to be a contaminant. She is currently on D11 of ceftri/ampi. She is scheduled to undergo WBC scan today. repeat CT chest done showed large left pleural effusion. She had a previous thoracentesis 02/06/20 to drain the effusion she had on the same side. She has been afebrile and WBC is normal. 02/18/20 Patient was seen and examined at bedside. She is still on CPAP most of the time over her 5L of Nasal cannula. She underwent tagged WBC scan yesterday which was negative. She underwent repeat thoracentesis today to remove a left pleural effusion which has re accumulated since her last thoracentesis approx 10 days ago. Plan to repeat her blood culture tomorrow and if still growing staph epidermidis will likely need to pull out PICC line and replace it with another. 02/19/20 Patient was seen and examined at bedside. She reports that her breathing is much better after thoracentesis. Repeat blood cultures drawn today. She is otherwise stable. 02/20/20 Patient was seen and examined at bedside. No new complains, no acute events overnight. PICC line was replaced today. Latest blood culture 02/19/20 negative x 24 hrs. 02/21/20 Patient was seen and examined at bedside. Complaining of bloatedness. She had a bowel movement today. Otherwise no chest pain, no SOB. Afebrile, good appetite. 02/22/20 Patient was seen and examined at bedside. No acute events overnight. According to the nurse, she refused her lovenox injection and from previous observations she is rarely out of the chair. She is at a high risk for DVT and PE and I have told the patient that she needs to ambulate at least once a day. Antibiotics for endocarditis otherwise to continue. 02/23/20 Patient was seen and examined at bedside. No acute events overnight. Hgb noted to be 7.1 today, noactive bleeding I think this is 2/2 to her chronic medical c ondition and repeated blood draws. 1 Unit of PRBC ordered. Otherwise she denied any new chest pain, palpitations. importance of daily ambulation emphasized. 02/24/20 Patient was seen and examined at bedside. She was sitting on a recliner chair comfortable. Reports kervin cute event overnight. She received 1 unit of PRBC yesterday and repeat hgb was 8.2. She was noted to have mild leukocytosis today but she remains afebrile so this is likely reactive from the blood transfusion. 02/25/2020-morbidly obese female comfortably in the chair communicating well. Complaining of abdomen tightness. No other complaints. Plan is to continue IV antibiotic therapy. And is presently on ampicillin, ceftriaxone. Afebrile. 02/26/2020-morbidly obese female CPAP complaining of fluid buildup around her a bdomen and in the legs. Requesting Lasix. To start her Lasix 40 mg IV twice a day and she will be placed on fluid restriction 1500 cc/day. Patient is receiving IV antibiotic therapy for folliculitis. Last day of antibiotic therapy will be March 24. Presently on ampicillin and ceftriaxone. Reason For Visit: HYPOXIA,FEVER Physical Exam Vital Signs: Temp Pulse Resp BP Pulse Ox 97.2 F 106 H 19 146/52 H 100 02/26/20 11:40 02/26/20 11:40 02/26/20 11:40 02/26/20 11:40 02/26/20 11:40 Intake & Output 02/25/20 02/26/20 02/27/20 06:59 06:59 06:59 Intake Total 2295 1492 200 Balance 2295 1492 200 Weight 180.2 kg 180.2 kg General appearance: PRESENT: no acute distress, morbidly obese Head exam: PRESENT: atraumatic Eye exam: PRESENT: PERRLA Ear exam: PRESENT: normal external ear exam Mouth exam: PRESENT: neck supple Teeth exam: PRESENT: poor dentation Neck exam: ABSENT: carotid bruit, JVD, lymphadenopathy, thyromegaly Respiratory exam: PRESENT: decreased breath sounds Cardiovascular exam: PRESENT: RRR. ABSENT: diastolic murmur, rubs, systolic murmur Pulses: PRESENT: normal dorsalis pedis pul GI/Abdominal exam: PRESENT: normal bowel sounds, soft. ABSENT: distended, guarding, mass, organolmegaly, rebound, tenderness Rectal exam: PRESENT: deferred Extremities exam: PRESENT: +2 edema Neurological exam: PRESENT: alert, awake, oriented to person, oriented to place, oriented to time, oriented to situation, CN II-XII grossly intact. ABSENT: motor sensory deficit Psychiatric exam: PRESENT: appropriate affect, normal mood. ABSENT: homicidal ideation, suicidal ideation Skin exam: PRESENT: dry, intact, warm. ABSENT: cyanosis, rash Results Laboratory Results: 02/26/20 06:30 02/26/20 06:30 02/26/20 02/26/20 06:30 06:30 WBC 10.4 RBC 3.00 L Hgb 8.1 L Hct 26.0 L MCV 87 MCH 27.2 MCHC 31.3 L RDW 19.9 H Plt Count 266 Seg Neutrophils % Not Reportable Sodium 138.0 Potassium 4.3 Chloride 101 Carbon Dioxide 27 Anion Gap 10 BUN 24 H Creatinine 1.13 Est GFR ( Amer) > 60 Glucose 113 H Calcium 8.7 Magnesium 1.9 Total Bilirubin 1.0 AST 64 H Alkaline Phosphatase 189 H Total Protein 6.6 Albumin 3.1 L 02/18/20 14:00 Pleural Fluid AFB Smear Concentration - Final 02/18/20 14:00 Pleural Fluid Acid Fast Bacilli Smear - Final 01/25/20 01/26/20 16:00 05:33 Creatine Kinase < 20 L 30 Impressions: Chest/Abdomen CTA 01/22/20 00:00 IMPRESSION: 1. No evidence of pulmonary embolus. 2. Scattered mosaic attenuation throughout the lungs possibly secondary to small airway disease or hypoventilatory change. 3. Trace left pleural effusion. Renal Ultrasound 01/28/20 00:00 IMPRESSION: Avascular approximately 3 cm mass off the inferior pole the left kidney. This most likely represents infectious or inflammatory process. PICC Line Insertion 02/04/20 00:00 IMPRESSION: SUCCESSFUL PLACEMENT OF A 5 FR DUAL LUMEN 44 CM PICC IN THE LEFT BASILIC VEIN. Venous Doppler Study 02/09/20 00:00 IMPRESSION: No evidence of DVT or SVT in the visualized veins of the right leg. Limited exam with nonvisualization of the mid/distal superficial femoral and peroneal veins. Abdomen/Pelvis CT 02/13/20 00:00 IMPRESSION: 1. Large left pleural effusion with adjacent consolidation likely representing compressive atelectasis. Small right pleural effusion. 2. Scattered nodular opacities in the right lung are nonspecific in etiology and could be infectious. There is some interstitial opacities/septal thickening which could reflect pulmonary edema. 3. Exam is degraded due to patient body habitus. IMPRESSION: 1. Degraded examination due to patient body habitus. 2. Focal region of hypoattenuation in the inferomedial left kidney is similar in morphology, though may be slightly decreased in size from prior. 3. Slight decrease in size of region of hypoattenuation along the inferolateral spleen, possibly representing a subcapsular fluid collection. Chest CT 02/13/20 00:00 IMPRESSION: 1. Large left pleural effusion with adjacent consolidation likely representing compressive atelectasis. Small right pleural effusion. 2. Scattered nodular opacities in the right lung are nonspecific in etiology and could be infectious. There is some interstitial opacities/septal thickening which could reflect pulmonary edema. 3. Exam is degraded due to patient body habitus. IMPRESSION: 1. Degraded examination due to patient body habitus. 2. Focal region of hypoattenuation in the inferomedial left kidney is similar in morphology, though may be slightly decreased in size from prior. 3. Slight decrease in size of region of hypoattenuation along the inferolateral spleen, possibly representing a subcapsular fluid collection. WBC Scan Nuclear Medicine 02/17/20 00:00 IMPRESSION: NEGATIVE WHITE BLOOD CELL STUDY. NO ABNORMAL FOCAL AREAS OF UPTAKE. Thoracentesis Ultrasound 02/18/20 00:00 IMPRESSION: SUCCESSFUL THORACENTESIS USING ULTRASOUND GUIDANCE. Chest X-Ray 02/18/20 16:10 IMPRESSION: NO PNEUMOTHORAX ON THE IMAGE ACQUIRED 2 HOURS AFTER THORACENTESIS. NO CHANGE IN APPEARANCE OF THE CHEST. PICC Line Exchange 02/20/20 00:00 IMPRESSION: SUCCESSFUL OVER THE WIRE REPLACEMENT OF AN OLD PICC FOR A NEW ONE THAT IS 5 FR DUAL LUMEN 44 CM PICC IN THE LEFT ARM. Assessment and Plan - Diagnosis (1) Bacteremia due to Enterococcus Is this a current diagnosis for this admission?: Yes Plan: - CT abdomen/pelvis with contrast showed likely septic emboli to left kidney and spleen; discussed with urology and IR at [facility], will hold off on draining these unless they turn into an abscess rather than what appears to be phlegmon - cultures: Blood cultures 01/20+ for Enterococcus, 01/21+ for Enterococcus, 01/23+ for Enterococcus, 01/26 blood cultures growing coag negative staph contaminant in 1/2 bottles otherwise clear, 01/28 growing staph epidermidis - 02/03 blood culture again grew enterococcus and staph epidermidis - TTE 01/24/20 cannot exclude vegetation. LV systolic function is normal, EF 55 to 60%, mild MR, moderate AR. -negative blood culture 02/11/20. repeat Blood cx 02/16/20 grew staph specie which was thought to be a contaminant. If we start the 6 week count on her last negative blood culture, her last day of abx will be Mar 24, 2020 to complete 6 weeks of treatment -Patient passed amoxicillin challenge -I discussed her case with [facility] CT surgery department and I was able to speak to their PA Richard and unfortunately there is that their ability to help her is limited by the fact that she does not have adequate imaging to properly confirm endocarditis and assess valvular dysfunction. - on ceftri/ampi - PICC line replaced 02/20/20 02/24/2020-patient is going to receive antibiotics until March 24, 2020. Presently on ampicillin, ceftriaxone. Echocardiogram was done unable to get jonathan quate imaging to rule out endocarditis. 02/26/2020-patient is receiving ampicillin, Rocephin for bacteremia. Last day of antibiotic therapy will be March 24. (2) Suspected endocarditis Is this a current diagnosis for this admission?: Yes Plan: - highly suspecting given enterococcal bacteremia, septic infarct to spleen and kidney - TTE done 01/23 showed increased velocity across the aortic valve moderate amount of aortic regurgitation cannot totally exclude vegetation. - MATTHEW was attempted twice but due to her body habitus anesthesia has found it very difficult to secure her airway - she received several days of dapto before being switched to ceftri/ampi on 02/16/20 after passing the amoxicillin challenge - Last negative blood culture for enterococcus was 02/11/20. - I have spoken to Richard MCFADDEN for [facility] CT surgery however they cannot give any recommendations since her MATTHEW has not been done therefore valve dysfunction is not completely evaluated. - ID on board - 6 weeks of abx to be completed March 24, 2019. She would need to follow up with CT surgery outpatient at a tertiary care center 02/25/2020-patient is on IV Rocephin, ampicillin of antibiotic therapy will be March 24. (3) Acute on chronic respiratory failure with hypoxemia Is this a current diagnosis for this admission?: Yes Plan: - still requiring O2 support, was not previously on o2 at home - COVID negative -CT showed moderate-sized pleural effusion on 02/05/20. repeat Ct chest showed reaccumulation of pleural fluid left -Status post thoracentesis 02/06/20 was able to remove approximately 800 mL of fluid sent for analysis. - s/p 2nd thoracentesis 02/18/20 drained 650 ml [place] colored fluid, sent for analysis -1st Pleural fluid analysis culture and Gram stain negative - Awaiting 2nd Pleural fluid analysis - +ve lights criteria Exudative first Pleural fluid analysis. Likely from ongoing infection - continue CPAP PRN and at night (4) Pleural effusion due to bacterial infection Is this a current diagnosis for this admission?: Yes Plan: - had a previous thoracentesis 02/06/20 exudative by Lights criteria, cultures were negative. Cytology showed reactive cells, no malignancy - repeat CT chest showed that this has reaccumulated - s/p repeat thoracentesis 02/18/20. drained 650 ml [place] fluid. Sent for analysis (5) FROYLAN on CPAP Is this a current diagnosis for this admission?: No Plan: nocturnal cpap. She mainly wears this because she is sleeping al throughout the day otherwise she feels she can do PT without it. (6) Normocytic anemia Is this a current diagnosis for this admission?: No Plan: - Hgb 6.7>8.0>7.7>7.1 post transfusion likely due to chronic medical condition on top of blood draws - I do not think she has any active bleeding - s/p 1 unit PRBC 02/08/20 - s/p 1 u PRBC 02/23/20 (7) Panniculitis Is this a current diagnosis for this admission?: Yes Plan: -Antibiotic switch from Dapto to ceftriaxone/ampicillin. (8) Morbid obesity with BMI of 70 and over, adult Is this a current diagnosis for this admission?: No Plan: - BMI over 70 - advised diet and lifestyle modification (9) Diabetes mellitus type 2 in obese Is this a current diagnosis for this admission?: No Plan: - continue SSI, hypoglycemia protocol and accucheck (10) Sepsis Qualifiers: Sepsis type: sepsis due to unspecified organism Sepsis acute organ dysfunction status: without acute organ dysfunction Qualified Code(s): A41.9 - Sepsis, unspecified organism Is this a current diagnosis for this admission?: Yes Plan: RESOLVED - Leukocytosis, febrile, hypoxic, tachycardic. 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 Unable to confirm due to failed MATTHEW attempts. Currently on ceftri/ampi until February. She would need to follow up at a tertiary care center for MATTHEW or possible cardiac MRI to assess valvular function and CT surgery evaluation. - Time Anticipated Discharge Disposition: Home, Self Care Anticipated Discharge Timeframe: within 48 hours
[2020-02-26] MEDS ORDERED: ALBUTEROL SULFATE HFA (90 MCG/PUFF) 8 GM MDI IH PRN (13:28)
[2020-02-26] MEDS ORDERED: (PENDING PHARMACY ID) (Budesonide/Formoterol Fumarate 60 PUFF/6 GM Inhaler) IH SCH (18:00)
[2020-02-26] MEDS: FLUTICASONE/VILANTEROL 200-25 MCG/DOSE IH SCH (18:05)
[2020-02-26] MEDS: PRAZOSIN HCL 1 MG PO SCH (22:35)
[2020-02-26] MEDS: FUROSEMIDE INJ/PF 40 MG/4 ML SDV IV SCH (23:29)
[2020-02-26] MEDS: SENNOSIDES/DOCUSATE 8.6-50 MG 1 EACH TABLET PO SCH (23:29)
[2020-02-26] MEDS: INSULIN GLARGINE,HUM.REC.ANLOG 1,000 UNIT/10 ML VIAL SUBCUT SCH (23:29)
[2020-02-27] MEDS: AMPICILLIN SODIUM 2 GM in NORMAL SALINE 100 ML IV SCH ×6 (02:00→21:53)
[2020-02-27] MEDS: HYDROXYZINE PAMOATE 50 MG CAPSULE PO SCH ×5 (06:35→21:50)
[2020-02-27] MEDS: OXYCODONE HCL IR 5 MG TABLET PO PRN (06:36)
[2020-02-27] MEDS: PANTOPRAZOLE SODIUM 40 MG TABLET.DR PO SCH (06:36)
[2020-02-27 07:32] LABS: HEMATOCRIT 26.2 % (36.0-47.0); HEMOGLOBIN 8.2 g/dL (12.0-15.5); MEAN CORPUSCULAR HEMOGLOBIN 27.2 pg (27.0-33.4); MEAN CORPUSCULAR HGB CONC 31.3 g/dL (32.0-36.0); MEAN CORPUSCULAR VOLUME 87 fl (80-97); PLATELET COUNT 269 10^3/uL (150-450); RED BLOOD COUNT 3.01 10^6/uL (3.72-5.28); WHITE BLOOD COUNT 10.6 10^3/uL (4.0-10.5)
[2020-02-27 07:58] LABS: ALBUMIN 3.1 g/dL (3.5-5.0); ALKALINE PHOSPHATASE 178 U/L (38-126); ANION GAP 12 (5-19); ASPARTATE AMINO TRANSFERASE 62 U/L (14-36); BILIRUBIN,DIRECT 0.6 mg/dL (0.0-0.4); BILIRUBIN,TOTAL 0.9 mg/dL (0.2-1.3); BLOOD UREA NITROGEN 25 mg/dL (7-20); CALCIUM 8.9 mg/dL (8.4-10.2); CARBON DIOXIDE 26 mmol/L (22-30); CHLORIDE 102 mmol/L (98-107); GLUCOSE 112 mg/dL (75-110); POTASSIUM 4.5 mmol/L (3.6-5.0); TOTAL PROTEIN 6.6 g/dL (6.3-8.2)
[2020-02-27] MEDS: INSULIN LISPRO 100 UNIT/ML 3 ML VIAL SUBCUT SCH ×4 (08:00→22:11)
[2020-02-27 08:21] LABS: ABSOLUTE LYMPHOCYTES# (MANUAL) 1.6 10^3/uL (0.5-4.7); ABSOLUTE MONOCYTES # (MANUAL) 0.4 10^3/uL (0.1-1.4); BASOPHILS % (MANUAL) 0 % (0-2); EOSINOPHILS % (MANUAL) 2 % (0-6); LYMPHOCYTES % (MANUAL) 15 % (13-45); MONOCYTES % (MANUAL) 4 % (3-13); NUCLEATED RED BLOOD CELLS 2 /100 WBC (0); SEGMENTED NEUTROPHILS % (MAN) 79 % (42-78); TOTAL CELLS COUNTED 100
[2020-02-27 08:25] LABS: ANISOCYTOSIS 2+
[2020-02-27 08:26] LABS: OVALOCYTES SLIGHT; PLATELET CLUMPS PRESENT; PLATELET COMMENT ADEQUATE; POIKILOCYTOSIS 1+; POLYCHROMASIA SLIGHT; TEAR DROP CELLS SLIGHT
[2020-02-27] MEDS: ACETAMINOPHEN 325 MG TABLET PO SCH ×4 (10:00→18:52)
[2020-02-27] MEDS: CEFTRIAXONE 2 GM/D5W RTU 2 GM/50 ML RTUPB IV SCH ×2 (10:36→21:54)
[2020-02-27] MEDS: NORMAL SALINE 10 ML SDV (SCHEDULED) IV SCH ×2 (10:37→21:55)
[2020-02-27] MEDS: CHOLECALCIFEROL (D3) 1,000 UNIT (25 MCG) TABLET PO SCH (10:37)
[2020-02-27] MEDS: ASCORBIC ACID 500 MG TABLET PO SCH ×2 (10:38→17:08)
[2020-02-27] MEDS: SERTRALINE HCL 50 MG TABLET PO SCH (10:38)
[2020-02-27] MEDS: GABAPENTIN 300 MG CAPSULE PO SCH ×3 (10:39→17:22)
[2020-02-27] MEDS: FUROSEMIDE INJ/PF 40 MG/4 ML SDV IV SCH ×2 (10:39→21:51)
[2020-02-27] MEDS: FLUTICASONE/VILANTEROL 200-25 MCG/DOSE IH SCH (10:43)
--- NOTE | 2020-02-27 11:31 | PDOC PROGRESS REPORT ---
Subjective Date:: 02/27/20 Subjective:: 34 year old female with history of morbid obesity, FROYLAN, asthma, diabetes mellitu s, hypertension, anxiety and depression, who presents to the hospital with complaints of diffuse abdominal pain. The pain started 1 day ago. She describes it as aching pain which lasts several minutes. States it occurs every 15 minutes. Feels like a cramping sensation. Denies prior episodes. No notable aggravating or alleviating factors. Denies any relationship with food consumption. Admits to nausea but no vomiting. Denies any vaginal discharge. Denies any urinary symptoms.. Last sexual activity was in 2015. Preceding onset of this symptoms, she states she ate out on Monday. Subsequently became constipated and took a laxative. After that she had a few episodes of diarrhea on Monday and Monday. Pain started on Monday. In the ER, patient received work-up with CT abdomen pelvis without contrast. This incidentally picked up groundglass opacities in patient's lower lungs. Patient also noted to have hypoxia at 90% on room air. She has chronic issues with her breathing and often gets short of breath but is also quite overweight. She has not noted any recent worsening of her breathing. Noted to be febrile in the ER as well. Interval history: 01/23/2020: Patient was seen and examined. She still with high white count. No fever. Complains of abdominal wall pain. 01/24/2020: Patient was seen and examined. White count is improving. No fever. Complains of abdominal wall pain. 01/25/2020: Patient was seen and examined. White count is improving. Afebrile. Improving overall. Repeat cultures still positive for Enterococcus. 01/26/2020: Patient was seen and examined. Had low-grade fever of 100.6 last night. Stable on 4 L of nasal cannula oxygen." 01/27/2020 Still unclear where the source of the patient's infection might be. Per ID, they suspect intra-abdominal source such as the bowel or tract. We will repeat a CT abdomen and this time and on the pelvis as well. This will be done with IV and oral contrast to look for any potential abscesses could have formed along her bowel. She still having vaginal bleeding and states that sometimes she bleeds for an entire month. She does not follow with a interlocking and signal mechanic regularly as she does not have insurance. Patient states she feels okay today. MATTHEW is being arranged reportedly. Daptomycin continues. Lower WBC and lower hemoglobin down to 8. Latest blood culture is also positive for Enterococcus, same organism as the previous cultures per micro lab. 01/28/2020 CT abdomen/pelvis with contrast showed possible left renal mass and I have ordered a renal ultrasound to get a closer look at this. Renal ultrasound showed this is likely an abscess rather than a solid tumor. We will need urol ogy opinion and I will give them a call to see if they would like the patient transferred for intervention or if IR would be able to drain this here. Patient remains afebrile. Blood cultures 1/2 growing MRSA. Patient believes the suspected abscess in her left kidney may be the source of her left upper quadrant and left flank pain. 01/29/2020 I called [facility] and spoke with the urologist on staff there and then he called their interventional radiologist had a lengthy discussion about the p atient's imaging studies and how this should be addressed. They believe the patient's renal lesion is likely a phlegmon which may turn into an abscess in the near future. They recommended against attempting to drain this lesion until it becomes an actual liquid abscess. They also noted a lesion in the patient's spleen consistent with septic emboli and similar to the kidney lesion. I believe the patient has showered her organ systems with septic emboli likely from a central source, suspected to be infected endocarditis. MATTHEW was not able to be done as mentioned previously and this will need to be repeated in the near future. We will repeat blood cultures today and if these remain negative we may explore transfer to a CT surgery facility once we can confirm a valvular vegetation on MATTHEW. Patient has no new complaints today. I examined her buttock regions and did not see any open wounds that could be a source for MRSA infection. The patient had mentioned previously having some irritation and possibly an open wound in that area. 01/30/2020 Most recent set of results of blood cultures on 01/26 have now resulted as 1/2 bottles contaminated with coag negative staph, otherwise blood cultures are negative. Patient is continued on daptomycin. Blood cultures drawn yesterday are still pending. Patient states she feels slightly better. Dr. Kimbrough is planning to repeat MATTHEW attempt next week. This is certainly indicated given that she probably has a central source of bloodstream infection showering multiple organs, most likely infected endocarditis. Possible she seeded her he art valves from a skin infection became bacteremia. 01/31/2020 Blood cultures are growing staph species in 1/2 bottles, suspect this may be a contaminant. Patient is having a bit more pain in her left flank and abdomen likely due to the septic emboli in her kidney. She has been using morphine ove rnight and explained to her that this will not provide lasting pain relief and she should use the Percocet instead and reserve the morphine for breakthrough pain. I also discussed this with the nurse. I have ordered a MATTHEW to be done on Monday assuming Dr. Kimbrough is available for this. I noted she had a positive mycoplasma IgG antibody earlier in the admission she was appropriately treated with a course of azithromycin. Her blood cultures have not grown mycoplasma and this may be simply antibodies from an exposure in the past other than an active infection. D-dimer is higher. We will check PVL BLE to rule out DVT. There is no PE on a recent CTPA. 02/01/2020 Most recent 1/2 blood cultures still growing coag negative staph highly likely a contaminant. If this is the case, patient is to consecutive negative blood culture results from different days. We could say blood is likely cleared of infection as of 01/26. We continue to plan for MATTHEW hopefully on Monday. Order has been placed but the timing of the procedure will be entirely up to Dr. Kimbrough's availability. Patient likely has obesity hypoventilation syndrome and we should not push her oxygen towards 100%. She will likely breathe and feel better overall at a lower O2 saturation around 92% or higher. She is at risk fo r CO2 retention we do not keep this in mind. 02/02/2020 Patient still having significant left upper quadrant pain likely due to developing splenic abscess. We will repeat a CT abdomen/pelvis with contrast in the next 48 hours to see if this has gone from being a phlegmon to a drainable abscess. Per my discussion with [facility] interventional radiology, they did not recommend attempting to drain any septic emboli unless it had clear evidence of being a liquid abscess. I have added gabapentin to help with the pain and we will continue Percocet and then also morphine for breakthrough pain. Other than that, patient has no new complaints. Will hopefully have MATTHEW done again in the next 48 hours. This is pending Dr. Kimbrough availability. 02/03/2020 Unable to get MATTHEW today due to anesthesia refusing to attempt this again here they stated patient's airway is extremely tenuous and they were barely able to safely intubate the patient previously. Dr. Kimbrough was also concerned after speaking with them that he would likely not have success on the second attempt either. He recommended treating the patient with 6 weeks of IV antibiotics for presumed infective endocarditis. It would be helpful if the patient lost a significant amount of weight over the next 6 weeks as this may assist with the difficult anatomy of her neck. Patient could potentially be discharged home if case management is able to arrange outpatient infusions. She will need a PICC line placed and to have her central line removed. I will place an order for this to be done tomorrow. Patient will need a physician to follow-up her care after she leaves if she continues on IV antibiotics. She will need periodic l abs over the next 6 weeks and someone to monitor these. 02/04/20 Patient was seen and examined at bedside. She is still complaining of left sided flank pain which is still likely from septic emboli to her left kidney. I have increased her percocet to q3 hrs and increased her morphine. She got a PICC line today for planned 6 weeks of abx. She is still currently requiring O2 support. Discharge planning still trying to work on setting up home infusion for dapto as well as home O2. Will repeat CT abdomen/pelvis to assess septic emboli to left kidney. 02/05/20 Patient was seen and examined at bedside. Still on her CPAP machine most of the time. Repeat blood culture drawn yesterday still growing Enterococcus. I have touched base with infectious disease regarding this and I was able to speak to Dr. Navarrete. She recommends to talk to the patient about her penicillin allergy possibly switch her over to ceftriaxone and ampicillin regimen since this is much better for Enterococcus. He also recommended to consult CT surgery for her splenic emboli and high suspicion for endocarditis. With her BMI I doubt that he will she will qualify for any surgery but will try to reach out to a CT surg billie tomorrow. We will also ask her about her penicillin allergy. Repeat CT abdomen and pelvis showed grossly stable appearance of the ill-defined area of hypoattenuation along the inferior left kidney. Stable linear area of hypoattenuation within the spleen. Morbid obesity with skin thickening along the pannus suggestive of panniculitis. Moderate left-sided pleural effusion I have changed her pain medications to morphine IR 10 mg every 4 since she claims that she responds more to morphine rather than Percocet. I have stopped her Percocet and her IV morphine. 02/06/20 Patient was seen and examined at bedside. She reports that her pain seems to be much better with the morphine IR however she feels that she is more nauseous with it as well. I have decreased her morphine to 5 mg every 6. I also discussed with her the recent infectious disease recommendation regarding amoxicillin challenge. She stated that she had a reaction to amoxicillin when she was 14 years old when she got it for dental procedure when she developed tongue swelling however she did not report any shortness of breath, no rashes, did not need to go to the emergency room because of severe allergic reaction. Since this remote penicillin allergy happened more than 15 years ago we we have decided to go ahead with challenging her with amoxicillin 50 mg and then observe her for 20 minutes and then full dose 500 mg/h of amoxicillin and observe her for another hour after that. She did not experience any symptoms with the 50 mg of amoxicillin. If she passed a challenge I would likely switch her antibiotics to ceftriaxone, ampicillin to treat her persistent enterococcal bacteremia. 02/07/20 Patient was seen and examined at bedside. Overall feels ok, reports that her oxygen needs from the nasal cannula may be coming down since the removal of pleural effusion yesterday. she is so far tolerating the ceftriaxone/ampicillin regimen. Still reports nausea and headache with the oral morphine so will trial her on [place] instead. She shared that she had a dental procedures a few months ago which she thought might be the source of her Endocarditis since she did not receive any abx. Will plan to repeat her blood cultures in 48 hrs. 02/08/20 Patient was seen and examined at bedside. She denied any new complains, still with pain on left side. Her hgb was noted to be 6.7 but she denies any melena, hematemesis. She was given 1 unit PRBC. Otherwise she is doing about the same. Plan to repeat blood culture on monday.She was complaining of right lower leg pain. Venous doppler ordered to rule out DVT 02/09/20 Patient was seen and examined at bedside. No new complains, remained afebrile. No chest pain, no SOB, still with stable left sided pain. I talked to her about putting PT on consult and she said she would like to try and could come off the CPAP and be on nasal cannula. Repeat blood culture tomorrow morning. hgb 8.0 today. She received 1 unit of PRBC 02/10/20 Patient was seen and examined at bedside. No new complains. She will be assessed by physical therapy today. Repeat blood cultures were drawn today. She has been afebrile al throughout. I have discussed her case with CT surgery PA at [facility] Richard and he stated that they're ability to properly assess her is very limited because she does not have adequate imaging of her presumed endocarditis. She is on Day 4 of Ceftri/ampi regimen and repeat blood cultures were drawn today. 02/17/20 Care resumed today. Reviewed notes of last week. Her blood culture has been negative since 02/15/20. repeat Bcx 02/16/20 showed staph specie growth which she previously grew before and is suspected to be a contaminant. She is currently on D11 of ceftri/ampi. She is scheduled to undergo WBC scan today. repeat CT chest done showed large left pleural effusion. She had a previous thoracentesis 02/06/20 to drain the effusion she had on the same side. She has been afebrile and WBC is normal. 02/18/20 Patient was seen and examined at bedside. She is still on CPAP most of the time over her 5L of Nasal cannula. She underwent tagged WBC scan yesterday which was negative. She underwent repeat thoracentesis today to remove a left pleural effusion which has re accumulated since her last thoracentesis approx 10 days ago. Plan to repeat her blood culture tomorrow and if still growing staph epidermidis will likely need to pull out PICC line and replace it with another. 02/19/20 Patient was seen and examined at bedside. She reports that her breathing is much better after thoracentesis. Repeat blood cultures drawn today. She is otherwise stable. 02/20/20 Patient was seen and examined at bedside. No new complains, no acute events overnight. PICC line was replaced today. Latest blood culture 02/19/20 negative x 24 hrs. 02/21/20 Patient was seen and examined at bedside. Complaining of bloatedness. She had a bowel movement today. Otherwise no chest pain, no SOB. Afebrile, good appetite. 02/22/20 Patient was seen and examined at bedside. No acute events overnight. According to the nurse, she refused her lovenox injection and from previous observations she is rarely out of the chair. She is at a high risk for DVT and PE and I have told the patient that she needs to ambulate at least once a day. Antibiotics for endocarditis otherwise to continue. 02/23/20 Patient was seen and examined at bedside. No acute events overnight. Hgb noted to be 7.1 today, noactive bleeding I think this is 2/2 to her chronic medical c ondition and repeated blood draws. 1 Unit of PRBC ordered. Otherwise she denied any new chest pain, palpitations. importance of daily ambulation emphasized. 02/24/20 Patient was seen and examined at bedside. She was sitting on a recliner chair comfortable. Reports kervin cute event overnight. She received 1 unit of PRBC yesterday and repeat hgb was 8.2. She was noted to have mild leukocytosis today but she remains afebrile so this is likely reactive from the blood transfusion. 02/25/2020-morbidly obese female comfortably in the chair communicating well. Complaining of abdomen tightness. No other complaints. Plan is to continue IV antibiotic therapy. And is presently on ampicillin, ceftriaxone. Afebrile. 02/26/2020-morbidly obese female CPAP complaining of fluid buildup around her a bdomen and in the legs. Requesting Lasix. To start her Lasix 40 mg IV twice a day and she will be placed on fluid restriction 1500 cc/day. Patient is receiving IV antibiotic therapy for folliculitis. Last day of antibiotic therapy will be March 24. Presently on ampicillin and ceftriaxone. 02/27/[id number]-eewd-old female morbidly obese female admitted for bacteremia. Receiving IV antibiotic therapy last dose of antibiotic will be March 24. Unable to do the echocardiogram because of the morbid obesity and patient is treated as if she has endocarditis. Complaining of fluid buildup requesting Lasix. Patient was started on IV Lasix this morning patient is requesting for chest x-ray. Urine output is not documented at this time. Reason For Visit: HYPOXIA,FEVER Physical Exam Vital Signs: Temp Pulse Resp BP Pulse Ox 97.4 F 83 22 H 129/49 H 98 02/27/20 08:00 02/27/20 08:00 02/27/20 08:00 02/27/20 08:00 02/27/20 08:00 Intake & Output 02/26/20 02/27/20 02/28/20 06:59 06:59 06:59 Intake Total 1492 1080 100 Output Total 0 Balance 1492 1080 100 Weight 180.2 kg 180.4 kg General appearance: PRESENT: no acute distress, cooperative, morbidly obese Head exam: PRESENT: atraumatic Eye exam: PRESENT: PERRLA Mouth exam: PRESENT: moist, tongue midline Teeth exam: PRESENT: poor dentation Respiratory exam: PRESENT: decreased breath sounds Cardiovascular exam: PRESENT: RRR. ABSENT: diastolic murmur, rubs, systolic murmur GI/Abdominal exam: PRESENT: normal bowel sounds, soft. ABSENT: distended, guarding, mass, organolmegaly, rebound, tenderness Rectal exam: PRESENT: deferred Extremities exam: PRESENT: full ROM. ABSENT: calf tenderness, clubbing, pedal edema Neurological exam: PRESENT: alert, awake, oriented to person, oriented to place, oriented to time, oriented to situation, CN II-XII grossly intact. ABSENT: motor sensory deficit Psychiatric exam: PRESENT: appropriate affect, normal mood. ABSENT: homicidal ideation, suicidal ideation Results Laboratory Results: 02/27/20 06:50 02/27/20 06:50 02/27/20 02/27/20 06:50 06:50 WBC 10.6 H RBC 3.01 L Hgb 8.2 L Hct 26.2 L MCV 87 MCH 27.2 MCHC 31.3 L RDW 20.0 H Plt Count 269 Seg Neutrophils % Not Reportable Sodium 140.1 Potassium 4.5 Chloride 102 Carbon Dioxide 26 Anion Gap 12 BUN 25 H Creatinine 1.18 Est GFR ( Amer) > 60 Glucose 112 H Calcium 8.9 Magnesium 2.0 Total Bilirubin 0.9 AST 62 H Alkaline Phosphatase 178 H Total Protein 6.6 Albumin 3.1 L 02/18/20 14:00 Pleural Fluid AFB Smear Concentration - Final 02/18/20 14:00 Pleural Fluid Acid Fast Bacilli Smear - Final 01/25/20 01/26/20 16:00 05:33 Creatine Kinase < 20 L 30 Impressions: Chest/Abdomen CTA 01/22/20 00:00 IMPRESSION: 1. No evidence of pulmonary embolus. 2. Scattered mosaic attenuation throughout the lungs possibly secondary to small airway disease or hypoventilatory change. 3. Trace left pleural effusion. Renal Ultrasound 01/28/20 00:00 IMPRESSION: Avascular approximately 3 cm mass off the inferior pole the left kidney. This most likely represents infectious or inflammatory process. PICC Line Insertion 02/04/20 00:00 IMPRESSION: SUCCESSFUL PLACEMENT OF A 5 FR DUAL LUMEN 44 CM PICC IN THE LEFT BASILIC VEIN. Venous Doppler Study 02/09/20 00:00 IMPRESSION: No evidence of DVT or SVT in the visualized veins of the right leg. Limited exam with nonvisualization of the mid/distal superficial femoral and peroneal veins. Abdomen/Pelvis CT 02/13/20 00:00 IMPRESSION: 1. Large left pleural effusion with adjacent consolidation likely representing compressive atelectasis. Small right pleural effusion. 2. Scattered nodular opacities in the right lung are nonspecific in etiology and could be infectious. There is some interstitial opacities/septal thickening which could reflect pulmonary edema. 3. Exam is degraded due to patient body habitus. IMPRESSION: 1. Degraded examination due to patient body habitus. 2. Focal region of hypoattenuation in the inferomedial left kidney is similar in morphology, though may be slightly decreased in size from prior. 3. Slight decrease in size of region of hypoattenuation along the inferolateral spleen, possibly representing a subcapsular fluid collection. Chest CT 02/13/20 00:00 IMPRESSION: 1. Large left pleural effusion with adjacent consolidation likely representing compressive atelectasis. Small right pleural effusion. 2. Scattered nodular opacities in the right lung are nonspecific in etiology and could be infectious. There is some interstitial opacities/septal thickening which could reflect pulmonary edema. 3. Exam is degraded due to patient body habitus. IMPRESSION: 1. Degraded examination due to patient body habitus. 2. Focal region of hypoattenuation in the inferomedial left kidney is similar in morphology, though may be slightly decreased in size from prior. 3. Slight decrease in size of region of hypoattenuation along the inferolateral spleen, possibly representing a subcapsular fluid collection. WBC Scan Nuclear Medicine 02/17/20 00:00 IMPRESSION: NEGATIVE WHITE BLOOD CELL STUDY. NO ABNORMAL FOCAL AREAS OF UPTAKE. Thoracentesis Ultrasound 02/18/20 00:00 IMPRESSION: SUCCESSFUL THORACENTESIS USING ULTRASOUND GUIDANCE. Chest X-Ray 02/18/20 16:10 IMPRESSION: NO PNEUMOTHORAX ON THE IMAGE ACQUIRED 2 HOURS AFTER THORACENTESIS. NO CHANGE IN APPEARANCE OF THE CHEST. PICC Line Exchange 02/20/20 00:00 IMPRESSION: SUCCESSFUL OVER THE WIRE REPLACEMENT OF AN OLD PICC FOR A NEW ONE THAT IS 5 FR DUAL LUMEN 44 CM PICC IN THE LEFT ARM. Assessment and Plan - Diagnosis (1) Bacteremia due to Enterococcus Is this a current diagnosis for this admission?: Yes Plan: - CT abdomen/pelvis with contrast showed likely septic emboli to left kidney and spleen; discussed with urology and IR at [facility], will hold off on draining these unless they turn into an abscess rather than what appears to be phlegmon - cultures: Blood cultures 01/20+ for Enterococcus, 01/21+ for Enterococcus, 01/23+ for Enterococcus, 01/26 blood cultures growing coag negative staph contaminant in 1/2 bottles otherwise clear, 01/28 growing staph epidermidis - 02/03 blood culture again grew enterococcus and staph epidermidis - TTE 01/24/20 cannot exclude vegetation. LV systolic function is normal, EF 55 to 60%, mild MR, moderate AR. -negative blood culture 02/11/20. repeat Blood cx 02/16/20 grew staph specie which was thought to be a contaminant. If we start the 6 week count on her last negative blood culture, her last day of abx will be Mar 24, 2020 to complete 6 weeks of treatment -Patient passed amoxicillin challenge -I discussed her case with [facility] CT surgery department and I was able to speak to their PA Richard and unfortunately there is that their ability to help her is limited by the fact that she does not have adequate imaging to properly confirm endocarditis and assess valvular dysfunction. - on ceftri/ampi - PICC line replaced 02/20/20 02/24/2020-patient is going to receive antibiotics until March 24, 2020. Presently on ampicillin, ceftriaxone. Echocardiogram was done unable to get adequate imaging to rule out endocarditis. 02/26/2020-patient is receiving ampicillin, Rocephin for bacteremia. Last day of antibiotic therapy will be March 24. 02/27/20-plan is to continue ampicillin, Rocephin until March 24, 2020. (2) Suspected endocarditis Is this a current diagnosis for this admission?: Yes Plan: - highly suspecting given enterococcal bacteremia, septic infarct to spleen and kidney - TTE done 01/23 showed increased velocity across the aortic valve moderate amount of aortic regurgitation cannot totally exclude vegetation. - MATTHEW was attempted twice but due to her body habitus anesthesia has found it very difficult to secure her airway - she received several days of dapto before being switched to ceftri/ampi on 02/16/20 after passing the amoxicillin challenge - Last negative blood culture for enterococcus was 02/11/20. - I have spoken to Richard MCFADDEN for [facility] CT surgery however they cannot give any recommendations since her MATTHEW has not been done therefore valve dysfunction is not completely evaluated. - ID on board - 6 weeks of abx to be completed March 24, 2019. She would need to follow up with CT surgery outpatient at a tertiary care center 02/25/2020-patient is on IV Rocephin, ampicillin of antibiotic therapy will be March 24. 02/27/2020-patient is getting treatment for suspected endocarditis. Receiving IV Rocephin, ampicillin. (3) Acute on chronic respiratory failure with hypoxemia Is this a current diagnosis for this admission?: Yes Plan: - still requiring O2 support, was not previously on o2 at home - COVID negative -CT showed moderate-sized pleural effusion on 02/05/20. repeat Ct chest showed reaccumulation of pleural fluid left -Status post thoracentesis 02/06/20 was able to remove approximately 800 mL of fluid sent for analysis. - s/p 2nd thoracentesis 02/18/20 drained 650 ml shil[place] colored fluid, sent for analysis -1st Pleural fluid analysis culture and Gram stain negative - Awaiting 2nd Pleural fluid analysis - +ve lights criteria Exudative first Pleural fluid analysis. Likely from ongoing infection - continue CPAP PRN and at night (4) Pleural effusion due to bacterial infection Is this a current diagnosis for this admission?: Yes Plan: - had a previous thoracentesis 02/06/20 exudative by Lights criteria, cultures were negative. Cytology showed reactive cells, no malignancy - repeat CT chest showed that this has reaccumulated - s/p repeat thoracentesis 02/18/20. drained 650 ml shil[place] fluid. Sent for analysis (5) FROYLAN on CPAP Is this a current diagnosis for this admission?: No Plan: nocturnal cpap. She mainly wears this because she is sleeping al throughout the day otherwise she feels she can do PT without it. (6) Normocytic anemia Is this a current diagnosis for this admission?: No Plan: - Hgb 6.7>8.0>7.7>7.1 post transfusion likely due to chronic medical condition on top of blood draws - I do not think she has any active bleeding - s/p 1 unit PRBC 02/08/20 - s/p 1 u PRBC 02/23/20 (7) Panniculitis Is this a current diagnosis for this admission?: Yes Plan: -Antibiotic switch from Dapto to ceftriaxone/ampicillin. (8) Morbid obesity with BMI of 70 and over, adult Is this a current diagnosis for this admission?: No Plan: - BMI over 70 - advised diet and lifestyle modification (9) Diabetes mellitus type 2 in obese Is this a current diagnosis for this admission?: No Plan: - continue SSI, hypoglycemia protocol and accucheck (10) Sepsis Qualifiers: Sepsis type: sepsis due to unspecified organism Sepsis acute organ dysfunction status: without acute organ dysfunction Qualified Code(s): A41.9 - Sepsis, unspecified organism Is this a current diagnosis for this admission?: Yes Plan: RESOLVED - Leukocytosis, febrile, hypoxic, tachycardic. 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 Unable to confirm due to failed MATTHEW attempts. Currently on ceftri/ampi until February. She would need to follow up at a tertiary care center for MATTHEW or possible cardiac MRI to assess valvular function and CT surgery evaluation. - Time Anticipated Discharge Disposition: Home, Self Care Anticipated Discharge Timeframe: 4 weeks
[2020-02-27] MEDS: ENOXAPARIN SODIUM INJ 40 MG/0.4 ML DISP.SYRIN SUBCUT SCH (12:01)
[2020-02-27] MEDS: ZINC SULFATE 220 MG CAPSULE PO SCH (12:05)
--- NOTE | 2020-02-27 12:49 | RADIOLOGY REPORT (SQ) ---
EXAM DESCRIPTION: CHEST SINGLE VIEW IMAGES COMPLETED DATE/TIME: 02/27/2020 12:09 pm REASON FOR STUDY: dyspnea COMPARISON: 02/18/2020 EXAM PARAMETERS: NUMBER OF VIEWS: One view. TECHNIQUE: Single frontal radiographic view of the chest acquired. RADIATION DOSE: NA LIMITATIONS: None. FINDINGS: LUNGS AND PLEURA: There is considerable opacification in both lungs. The left hemidiaphra gm is obscured. MEDIASTINUM AND HILAR STRUCTURES: No masses. Contour normal. HEART AND VASCULAR STRUCTURES: The heart size is borderline. BONES: No acute findings. HARDWARE: None in the chest. OTHER: No other significant finding. IMPRESSION: Borderline cardiomegaly. Cannot exclude mild pulmonary edema. Cannot exclude bilateral airspace disease in the lungs as described. TECHNICAL DOCUMENTATION: JOB ID: [id number] 2010 [employer]- All Rights Reserved Reading location - IP/workstation name: [email or web address]
--- NOTE | 2020-02-27 14:06 | PDOC DISCHARGE SUMMARY ---
Impression - Admit/DC Date/PCP Admission Date/Primary Care Provider: 01/22/20 01:55 Discharge Date: 02/27/20 - Discharge Diagnosis (1) Bacteremia due to Enterococcus Is this a current diagnosis for this admission?: Yes (2) Suspected endocarditis Is this a current diagnosis for this admission?: Yes (3) Acute on chronic respiratory failure with hypoxemia Is this a current diagnosis for this admission?: Yes (4) Pleural effusion due to bacterial infection Is this a current diagnosis for this admission?: Yes (5) FROYLAN on CPAP Is this a current diagnosis for this admission?: No (6) Normocytic anemia Is this a current diagnosis for this admission?: No (7) Panniculitis Is this a current diagnosis for this admission?: Yes (8) Morbid obesity with BMI of 70 and over, adult Is this a current diagnosis for this admission?: No (9) Diabetes mellitus type 2 in obese Is this a current diagnosis for this admission?: No (10) Sepsis Is this a current diagnosis for this admission?: Yes - Assessment Summary: Patient is being treated for enterococcus bacteremia with 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 Unable to confirm due to failed MATTHEW attempts. Currently on ceftri/ampi until February. She would need to follow up at a tertiary care center for MATTHEW or possible cardiac MRI to assess valvular function and CT surgery evaluation. (1) Bacteremia due to Enterococcus Is this a current diagnosis for this admission?: Yes Plan: - CT abdomen/pelvis with contrast showed likely septic emboli to left kidney and spleen; discussed with urology and IR at [facility], will hold off on draining these unless they turn into an abscess rather than what appears to be phlegmon - cultures: Blood cultures 01/20+ for Enterococcus, 01/21+ for Enterococcus, 01/23+ for Enterococcus, 01/26 blood cultures growing coag negative staph contaminant in 1/2 bottles otherwise clear, 01/28 growing staph epidermidis - 02/03 blood culture again grew enterococcus and staph epidermidis - TTE 01/24/20 cannot exclude vegetation. LV systolic function is normal, EF 55 to 60%, mild MR, moderate AR. -negative blood culture 02/11/20. repeat Blood cx 02/16/20 grew staph specie which was thought to be a contaminant. If we start the 6 week count on her last negative blood culture, her last day of abx will be Mar 24, 2020 to complete 6 weeks of treatment -Patient passed amoxicillin challenge -I discussed her case with [facility] CT surgery department and I was able to speak to their PA Richard and unfortunately there is that their ability to help her is limited by the fact that she does not have adequate imaging to properly confirm endocarditis and assess valvular dysfunction. - on ceftri/ampi - PICC line replaced 02/20/20 02/24/2020-patient is going to receive antibiotics until March 24, 2020. Presently on ampicillin, ceftriaxone. Echocardiogram was done unable to get adequate imaging to rule out endocarditis. 02/26/2020-patient is receiving ampicillin, Rocephin for bacteremia. Last day of antibiotic therapy will be March 24. 02/27/20-plan is to continue ampicillin, Rocephin until March 24, 2020. 02/27/2020-patient is going home today with ampicillin IV infusion 12 g daily until March 24. Patient is also going to receive IV Rocephin 2 g daily until March 24. Home health will provide IV infusions. Patient is agreeable to go home. Patient has a PICC line at this time. (2) Suspected endocarditis Is this a current diagnosis for this admission?: Yes Plan: - highly suspecting given enterococcal bacteremia, septic infarct to spleen and kidney - TTE done 01/23 showed increased velocity across the aortic valve moderate amount of aortic regurgitation cannot totally exclude vegetation. - MATTHEW was attempted twice but due to her body habitus anesthesia has found it very difficult to secure her airway - she received several days of dapto before being switched to ceftri/ampi on 02/16/20 after passing the amoxicillin challenge - Last negative blood culture for enterococcus was 02/11/20. - I have spoken to Richard MCFADDEN for [facility] CT surgery however they cannot give any recommendations since her MATTHEW has not been done therefore valve dysfunction is not completely evaluated. - ID on board - 6 weeks of abx to be completed March 24, 2019. She would need to follow up with CT surgery outpatient at a tertiary care center 02/25/2020-patient is on IV Rocephin, ampicillin of antibiotic therapy will be March 24. 02/27/2020-patient is getting treatment for suspected endocarditis. Receiving IV Rocephin, ampicillin. 02/27/2020-patient will continue IV antibiotic therapy ampicillin, IV Rocephin until March 24 at home. (3) Acute on chronic respiratory failure with hypoxemia Is this a current diagnosis for this admission?: Yes Plan: - still requiring O2 support, was not previously on o2 at home - COVID negative -CT showed moderate-sized pleural effusion on 02/05/20. repeat Ct chest showed reaccumulation of pleural fluid left -Status post thoracentesis 02/06/20 was able to remove approximately 800 mL of fluid sent for analysis. - s/p 2nd thoracentesis 02/18/20 drained 650 ml shiloh colored fluid, sent for analysis -1st Pleural fluid analysis culture and Gram stain negative - Awaiting 2nd Pleural fluid analysis - +ve lights criteria Exudative first Pleural fluid analysis. Likely from ongoing infection - continue CPAP PRN and at night 02/27/2020-patient is advised to continue CPAP on as needed basis during the daytime and on continuous basis during the night. (4) Pleural effusion due to bacterial infection Is this a current diagnosis for this admission?: Yes Plan: - had a previous thoracentesis 02/06/20 exudative by Lights criteria, cultures were negative. Cytology showed reactive cells, no malignancy - repeat CT chest showed that this has reaccumulated - s/p repeat thoracentesis 02/18/20. drained 650 ml shiloh fluid. Sent for analysis (5) FROYLAN on CPAP Is this a current diagnosis for this admission?: No Plan: nocturnal cpap. She mainly wears this because she is sleeping al throughout the day otherwise she feels she can do PT without it. (6) Normocytic anemia Is this a current diagnosis for this admission?: No Plan: - Hgb 6.7>8.0>7.7>7.1 post transfusion likely due to chronic medical condition on top of blood draws - I do not think she has any active bleeding - s/p 1 unit PRBC 02/08/20 - s/p 1 u PRBC 02/23/20 we have March 12. (7) Panniculitis Is this a current diagnosis for this admission?: Yes Plan: -Antibiotic switch from Dapto to ceftriaxone/ampicillin. 02/27/2020-patient is going home on IV ceftriaxone/ampicillin. (8) Morbid obesity with BMI of 70 and over, adult Is this a current diagnosis for this admission?: No Plan: - BMI over 70 - advised diet and lifestyle modification (9) Diabetes mellitus type 2 in obese Is this a current diagnosis for this admission?: No Plan: - continue SSI, hypoglycemia protocol and accucheck (10) Sepsis Qualifiers: Sepsis type: sepsis due to unspecified organism Sepsis acute organ dysfunction status: without acute organ dysfunction Qualified Code(s): A41.9 - Sepsis, unspecified organism Is this a current diagnosis for this admission?: Yes Plan: RESOLVED - Leukocytosis, febrile, hypoxic, tachycardic. - source likely endocarditis -Dapto switched to ceftriaxone/ampicillin started 02/06/20 - Additional Information Resuscitation Status: Full Code Discharge Diet: Diabetic Discharge Activity: Activity As Tolerated [facility]: [facility] [NO [facility]AL MD] - Follow up as needed Home Medications: Albuterol Sulfate [Proair HFA] 2 puff IH Q4HP PRN 06/03/17 Metformin HCl [Metformin HCl ER] 1,000 mg PO BID 05/15/18 Sucralfate [Carafate 1 gm Tablet] 1 gm PO ACHSP PRN 05/15/18 Budesonide/Formoterol Fumarate [Symbicort HFA 160-4.5 mcg Inhaler 6 gm] 2 puff IH BID 12/11/19 Omeprazole Magnesium [Prilosec Otc] 20 mg PO Q6AM 12/11/19 Sertraline HCl [Zoloft 50 mg Tablet] 50 mg PO DAILY 12/12/19 Chlorzoxazone [Parafon Forte Dsc 500 mg Tablet] 750 mg PO BIDP PRN 01/22/20 Ferrous Sulfate [Feosol 325 mg Tablet] 325 mg PO DAILY 01/22/20 Oxycodone HCl/Acetaminophen [Percocet 10-325 mg Tablet] 1 tab PO QIDP PRN 01/22/20 Prazosin HCl [Minipress] 1 mg PO QHS 01/22/20 Hydroxyzine Pamoate [Vistaril 50 mg Capsule] 50 mg PO TID 01/25/20 Ascorbic Acid [Vitamin C 500 mg Tablet] 500 mg PO BID tablet 02/27/20 History of Present Illiness History of Present Illness: SARAHI ST is a 34 year old female 34 year old female with history of morbid obesity, FROYLAN, asthma, diabetes mellitus, hypertension, anxiety and depression, who presents to the hospital with complaints of diffuse abdominal pain. The pain started 1 day ago. She describes it as aching pain which lasts several minutes. States it occurs every 15 minutes. Feels like a cramping sensation. Denies prior episodes. No nota ble aggravating or alleviating factors. Denies any relationship with food consumption. Admits to nausea but no vomiting. Denies any vaginal discharge. Denies any urinary symptoms.. Last sexual activity was in 2015. Preceding onset of this symptoms, she states she ate out on Monday. Subsequently became constipated and took a laxative. After that she had a few episodes of diarrhea on Monday and Monday. Pain started on Monday. In the ER, patient received work-up with CT abdomen pelvis without contrast. This incidentally picked up groundglass opacities in patient's lower lungs. Patient also noted to have hypoxia at 90% on room air. She has chronic issues with her breathing and often gets short of breath but is also quite overweight. She has not noted any recent worsening of her breathing. Noted to be febrile in the ER as well. Hospital Course Hospital Course: 34 year old female with history of morbid obesity, FROYLAN, asthma, diabetes mellitus, hypertension, anxiety and depression, who presents to the hospital with complaints of diffuse abdominal pain. The pain started 1 day ago. She describes it as aching pain which lasts several minutes. States it occurs every 15 minutes. Feels like a cramping sensation. Denies prior episodes. No notable aggravating or alleviating factors. Denies any relationship with food consumption. Admits to nausea but no vomiting. Denies any vaginal discharge. Denies any urinary symptoms.. Last sexual activity was in 2015. Preceding onset of this symptoms, she states she ate out on Monday. Subsequently became constipated and took a laxative. After that she had a few episodes of diarrhea on Monday and Monday. Pain started on Monday. In the ER, patient received work-up with CT abdomen pelvis without contrast. This incidentally picked up groundglass opacities in patient's lower lungs. Patient also noted to have hypoxia at 90% on room air. She has chronic issues with her breathing and often gets short of breath but is also quite overweight. She has not noted any recent worsening of her breathing. Noted to be febrile in the ER as well. Interval history: 01/23/2020: Patient was seen and examined. She still with high white count. No fever. Complains of abdominal wall pain. 01/24/2020: Patient was seen and examined. White count is improving. No fever. Complains of abdominal wall pain. 01/25/2020: Patient was seen and examined. White count is improving. Afebrile. Improving overall. Repeat cultures still positive for Enterococcus. 01/26/2020: Patient was seen and examined. Had low-grade fever of 100.6 last night. Stable on 4 L of nasal cannula oxygen." 01/27/2020 Still unclear where the source of the patient's infection might be. Per ID, they suspect intra-abdominal source such as the bowel or tract. We will repeat a CT abdomen and this time and on the pelvis as well. This will be done with IV and oral contrast to look for any potential abscesses could have formed along her bowel. She still having vaginal bleeding and states that sometimes she bleeds for an entire month. She does not follow with a paper cutter regularly as she does not have insurance. Patient states she feels okay today. MATTHEW is being arranged reportedly. Daptomycin continues. Lower WBC and lower hemoglobin down to 8. Latest blood culture is also positive for Enterococcus, same organism as the previous cultures per micro lab. 01/28/2020 CT abdomen/pelvis with contrast showed possible left renal mass and I have ordered a renal ultrasound to get a closer look at this. Renal ultrasound showed this is likely an abscess rather than a solid tumor. We will need urology opinion and I will give them a call to see if they would like the patient transferred for intervention or if IR would be able to drain this here. Patient remains afebrile. Blood cultures 1/2 growing MRSA. Patient believes the suspected abscess in her left kidney may be the source of her left upper quadrant and left flank pain. 01/29/2020 I called [facility] and spoke with the urologist on staff there and then he called their interventional radiologist had a lengthy discussion about the patient's imaging studies and how this should be addressed. They believe the patient's renal lesion is likely a phlegmon which may turn into an abscess in the near future. They recommended against attempting to drain this lesion until it becomes an actual liquid abscess. They also noted a lesion in the patient's spleen consistent with septic emboli and similar to the kidney lesion. I be lieve the patient has showered her organ systems with septic emboli likely from a central source, suspected to be infected endocarditis. MATTHEW was not able to be done as mentioned previously and this will need to be repeated in the near future. We will repeat blood cultures today and if these remain negative we may explore transfer to a CT surgery facility once we can confirm a valvular vegetation on MATTHEW. Patient has no new complaints today. I examined her buttock regions and did not see any open wounds that could be a source for MRSA infection. The patient had mentioned previously having some irritation and possibly an open wound in that area. 01/30/2020 Most recent set of results of blood cultures on 01/26 have now resulted as 1/2 bottles contaminated with coag negative staph, otherwise blood cultures are negative. Patient is continued on daptomycin. Blood cultures drawn yesterday are still pending. Patient states she feels slightly better. Dr. Kimbrough is planning to repeat MATTHEW attempt next week. This is certainly indicated given that she probably has a central source of bloodstream infection showering multiple organs, most likely infected endocarditis. Possible she seeded her heart valves from a skin infection became bacteremia. 01/31/2020 Blood cultures are growing staph species in 1/2 bottles, suspect this may be a contaminant. Patient is having a bit more pain in her left flank and abdomen likely due to the septic emboli in her kidney. She has been using morphine overnight and explained to her that this will not provide lasting pain relief and she should use the Percocet instead and reserve the morphine for breakthrough pain. I also discussed this with the nurse. I have ordered a MATTHEW to be done on Monday assuming Dr. Kimbrough is available for this. I noted she had a positive mycoplasma IgG antibody earlier in the admission she was appropriately treated with a course of azithromycin. Her blood cultures have not grown mycoplasma and this may be simply antibodies from an exposure in the past other than an active infection. D-dimer is higher. We will check PVL BLE to rule out DVT. There is no PE on a recent CTPA. 02/01/2020 Most recent 1/2 blood cultures still growing coag negative staph highly likely a contaminant. If this is the case, patient is to consecutive negative blood culture results from different days. We could say blood is likely cleared of infection as of 01/26. We continue to plan for MATTHEW hopefully on Monday. Order has been placed but the timing of the procedure will be entirely up to Dr. Kimbrough's availability. Patient likely has obesity hypoventilation syndrome and we should not push her oxygen towards 100%. She will likely breathe and feel better overall at a lower O2 saturation around 92% or higher. She is at risk for CO2 retention we do not keep this in mind. 02/02/2020 Patient still having significant left upper quadrant pain likely due to developing splenic abscess. We will repeat a CT abdomen/pelvis with contrast in the next 48 hours to see if this has gone from being a phlegmon to a drainable abscess. Per my discussion with [facility] interventional radiology, they did not recommend attempting to drain any septic emboli unless it had clear evidence of being a liquid abscess. I have added gabapentin to help with the pain and we will continue Percocet and then also morphine for breakthrough pain. Other than that, patient has no new complaints. Will hopefully have MATTHEW done again in the next 48 hours. This is pending Dr. Kimbrough availability. 02/03/2020 Unable to get MATTHEW today due to anesthesia refusing to attempt this again here they stated patient's airway is extremely tenuous and they were barely able to safely intubate the patient previously. Dr. Kimbrough was also concerned after speaking with them that he would likely not have success on the second attempt either. He recommended treating the patient with 6 weeks of IV antibiotics for presumed infective endocarditis. It would be helpful if the patient lost a significant amount of weight over the next 6 weeks as this may assist with the difficult anatomy of her neck. Patient could potentially be discharged home if case management is able to arrange outpatient infusions. She will need a PICC line placed and to have her central line removed. I will place an order for this to be done tomorrow. Patient will need a physician to follow-up her care after she leaves if she continues on IV antibiotics. She will need periodic labs over the next 6 weeks and someone to monitor these. 02/04/20 Patient was seen and examined at bedside. She is still complaining of left sided flank pain which is still likely from septic emboli to her left kidney. I have increased her percocet to q3 hrs and increased her morphine. She got a PICC line today for planned 6 weeks of abx. She is still currently requiring O2 support. Discharge planning still trying to work on setting up home infusion for dapto as well as home O2. Will repeat CT abdomen/pelvis to assess septic emboli to left kidney. 02/05/20 Patient was seen and examined at bedside. Still on her CPAP machine most of the time. Repeat blood culture drawn yesterday still growing Enterococcus. I have touched base with infectious disease regarding this and I was able to speak to Dr. Navarrete. She recommends to talk to the patient about her penicillin allergy possibly switch her over to ceftriaxone and ampicillin regimen since this is much better for Enterococcus. He also recommended to consult CT surgery for her splenic emboli and high suspicion for endocarditis. With her BMI I doubt that he will she will qualify for any surgery but will try to reach out to a CT surgeon tomorrow. We will also ask her about her penicillin allergy. Repeat CT abdomen and pelvis showed grossly stable appearance of the ill-defined area of hypoattenuation along the inferior left kidney. Stable linear area of hypoattenuation within the spleen. Morbid obesity with skin thickening along the pannus suggestive of panniculitis. Moderate left-sided pleural effusion I have changed her pain medications to morphine IR 10 mg every 4 since she claims that she responds more to morphine rather than Percocet. I have stopped her Percocet and her IV morphine. 02/06/20 Patient was seen and examined at bedside. She reports that her pain seems to be much better with the morphine IR however she feels that she is more nauseous with it as well. I have decreased her morphine to 5 mg every 6. I also discussed with her the recent infectious disease recommendation regarding amoxic illin challenge. She stated that she had a reaction to amoxicillin when she was 14 years old when she got it for dental procedure when she developed tongue swelling however she did not report any shortness of breath, no rashes, did not need to go to the emergency room because of severe allergic reaction. Since this remote penicillin allergy happened more than 15 years ago we we have decided to go ahead with challenging her with amoxicillin 50 mg and then observe her for 20 minutes and then full dose 500 mg/h of amoxicillin and observe her for another hour after that. She did not experience any symptoms with the 50 mg of amoxicillin. If she passed a challenge I would likely switch her antibiotics to ceftriaxone, ampicillin to treat her persistent enterococcal bacteremia. 02/07/20 Patient was seen and examined at bedside. Overall feels ok, reports that her oxygen needs from the nasal cannula may be coming down since the removal of pleural effusion yesterday. she is so far tolerating the ceftriaxone/ampicillin regimen. Still reports nausea and headache with the oral morphine so will trial her on [place] instead. She shared that she had a dental procedures a few months ago which she thought might be the source of her Endocarditis since she did not receive any abx. Will plan to repeat her blood cultures in 48 hrs. 02/08/20 Patient was seen and examined at bedside. She denied any new complains, still with pain on left side. Her hgb was noted to be 6.7 but she denies any melena, hematemesis. She was given 1 unit PRBC. Otherwise she is doing about the same. Plan to repeat blood culture on monday.She was complaining of right lower leg pain. Venous doppler ordered to rule out DVT 02/09/20 Patient was seen and examined at bedside. No new complains, remained afebrile. No chest pain, no SOB, still with stable left sided pain. I talked to her about putting PT on consult and she said she would like to try and could come off the CPAP and be on nasal cannula. Repeat blood culture tomorrow morning. hgb 8.0 today. She received 1 unit of PRBC 02/10/20 Patient was seen and examined at bedside. No new complains. She will be assessed by physical therapy today. Repeat blood cultures were drawn today. She has been afebrile al throughout. I have discussed her case with CT surgery PA at [facility] and he stated that they're ability to properly assess her is very limited because she does not have adequate imaging of her presumed endocarditis. She is on Day 4 of Ceftri/ampi regimen and repeat blood cultures were drawn today. 02/17/20 Care resumed today. Reviewed notes of last week. Her blood culture has been negative since 02/15/20. repeat Bcx 02/16/20 showed staph specie growth which she previously grew before and is suspected to be a contaminant. She is cu rrently on D11 of ceftri/ampi. She is scheduled to undergo WBC scan today. repeat CT chest done showed large left pleural effusion. She had a previous thoracentesis 02/06/20 to drain the effusion she had on the same side. She has been afebrile and WBC is normal. 02/18/20 Patient was seen and examined at bedside. She is still on CPAP most of the time over her 5L of Nasal cannula. She underwent tagged WBC scan yesterday which was negative. She underwent repeat thoracentesis today to remove a left pleural effusion which has re accumulated since her last thoracentesis approx 10 days ago. Plan to repeat her blood culture tomorrow and if still growing staph epidermidis will likely need to pull out PICC line and replace it with another. 02/19/20 Patient was seen and examined at bedside. She reports that her breathing is much better after thoracentesis. Repeat blood cultures drawn today. She is otherwise stable. 02/20/20 Patient was seen and examined at bedside. No new complains, no acute events overnight. PICC line was replaced today. Latest blood culture 02/19/20 negative x 24 hrs. 02/21/20 Patient was seen and examined at bedside. Complaining of bloatedness. She had a bowel movement today. Otherwise no chest pain, no SOB. Afebrile, good appetite. 02/22/20 Patient was seen and examined at bedside. No acute events overnight. According to the nurse, she refused her lovenox injection and from previous observations she is rarely out of the chair. She is at a high risk for DVT and PE and I have told the patient that she needs to ambulate at least once a day. Antibiotics for endocarditis otherwise to continue. 02/23/20 Patient was seen and examined at bedside. No acute events overnight. Hgb noted to be 7.1 today, noactive bleeding I think this is 2/2 to her chronic medical condition and repeated blood draws. 1 Unit of PRBC ordered. Otherwise she denied any new chest pain, palpitations. importance of daily ambulation emphasized. 02/24/20 Patient was seen and examined at bedside. She was sitting on a recliner chair comfortable. Reports kervin cute event overnight. She received 1 unit of PRBC yesterday and repeat hgb was 8.2. She was noted to have mild leukocytosis today but she remains afebrile so this is likely reactive from the blood transfusion. 02/25/2020-morbidly obese female comfortably in the chair communicating well. Complaining of abdomen tightness. No other complaints. Plan is to continue IV antibiotic therapy. And is presently on ampicillin, ceftriaxone. Afebrile. 02/26/2020-morbidly obese female CPAP complaining of fluid buildup around her abdomen and in the legs. Requesting Lasix. To start her Lasix 40 mg IV twice a day and she will be placed on fluid restriction 1500 cc/day. Patient is receiving IV antibiotic therapy for folliculitis. Last day of antibiotic therapy will be March 24. Presently on ampicillin and ceftriaxone. 02/[id number] female morbidly obese female admitted for bacteremia. Receiving IV antibiotic therapy last dose of antibiotic will be March 24. Unable to do the echocardiogram because of the morbid obesity and patient is treated as if she has endocarditis. Complaining of fluid buildup requesting Lasix. Patient was started on IV Lasix this morning patient is requesting for chest x-ray. Urine output is not documented at this time. 02/27/2020-patient is going home today with ampicillin 12 g every 24 hours infusion for the next 4 weeks. Patient is also going to receive IV Rocephin 2 g daily. Both antibiotics need to be continued until March 24. Home health will provide the antibiotic infusions. Patient has a PICC line. Physical Exam Vital Signs: Temp Pulse Resp BP Pulse Ox 97.4 F 83 22 H 129/49 H 98 02/27/20 08:00 02/27/20 08:00 02/27/20 08:00 02/27/20 08:00 02/27/20 08:00 Intake & Output 02/26/20 02/27/20 02/28/20 06:59 06:59 06:59 Intake Total 1492 1080 486 Output Total 0 Balance 1492 1080 486 Weight 180.2 kg 180.4 kg General appearance: PRESENT: no acute distress, morbidly obese Head exam: PRESENT: atraumatic Eye exam: PRESENT: PERRLA Ear exam: PRESENT: normal external ear exam Mouth exam: PRESENT: neck supple Teeth exam: PRESENT: poor dentation Neck exam: ABSENT: carotid bruit, JVD, lymphadenopathy, thyromegaly Respiratory exam: PRESENT: decreased breath sounds Cardiovascular exam: PRESENT: RRR. ABSENT: diastolic murmur, rubs, systolic murmur Pulses: PRESENT: normal dorsalis pedis pul GI/Abdominal exam: PRESENT: normal bowel sounds, soft. ABSENT: distended, guarding, mass, organolmegaly, rebound, tenderness Rectal exam: PRESENT: deferred Extremities exam: PRESENT: full ROM. ABSENT: calf tenderness, clubbing, pedal edema Neurological exam: PRESENT: alert, awake, oriented to person, oriented to place, oriented to time, oriented to situation, CN II-XII grossly intact. ABSENT: motor sensory deficit Psychiatric exam: PRESENT: appropriate affect, normal mood. ABSENT: homicidal ideation, suicidal ideation Results Laboratory Results: WBC 10.6 10^3/uL (4.0-10.5) H 02/27/20 06:50 RBC 3.01 10^6/uL (3.72-5.28) L 02/27/20 06:50 Hgb 8.2 g/dL (12.0-15.5) L 02/27/20 06:50 Hct 26.2 % (36.0-47.0) L 02/27/20 06:50 MCV 87 fl (80-97) 02/27/20 06:50 MCH 27.2 pg (27.0-33.4) 02/27/20 06:50 MCHC 31.3 g/dL (32.0-36.0) L 02/27/20 06:50 RDW 20.0 % (11.5-14.0) H 02/27/20 06:50 Plt Count 269 10^3/uL (150-450) 02/27/20 06:50 Lymph % (Auto) Not Reportable 02/27/20 06:50 Cottle % (Auto) Not Reportable 02/27/20 06:50 Eos % (Auto) Not Reportable 02/27/20 06:50 Baso % (Auto) Not Reportable 02/27/20 06:50 Absolute Neuts (auto) Not Reportable 02/27/20 06:50 Absolute Lymphs (auto) Not Reportable 02/27/20 06:50 Absolute Monos (auto) Not Reportable 02/27/20 06:50 Absolute Eos (auto) Not Reportable 02/27/20 06:50 Absolute Basos (auto) Not Reportable 02/27/20 06:50 Total Counted 100 02/27/20 06:50 Seg Neutrophils % Not Reportable 02/27/20 06:50 Seg Neuts % (Manual) 79 % (42-78) H 02/27/20 06:50 Band Neutrophils % 1 % (3-5) L 02/26/20 06:30 Lymphocytes % (Manual) 15 % (13-45) 02/27/20 06:50 Atypical Lymphs % 2 % (0) 02/26/20 06:30 Monocytes % (Manual) 4 % (3-13) 02/27/20 06:50 Eosinophils % (Manual) 2 % (0-6) 02/27/20 06:50 Basophils % (Manual) 0 % (0-2) 02/27/20 06:50 Abs Neuts (Manual) 8.4 10^3/uL (1.7-8.2) H 02/27/20 06:50 Abs Lymphs (Manual) 1.6 10^3/uL (0.5-4.7) 02/27/20 06:50 Abs Monocytes (Manual) 0.4 10^3/uL (0.1-1.4) 02/27/20 06:50 Absolute Eos (Manual) 0.2 10^3/uL (0.0-0.6) 02/27/20 06:50 Abs Basophils (Manual) 0.0 10^3/uL (0.0-0.2) 02/27/20 06:50 Nucleated RBCs 2 /100 WBC (0) 02/27/20 06:50 Clumped Platelets PRESENT 02/27/20 06:50 Platelet Comment ADEQUATE 02/27/20 06:50 Polychromasia SLIGHT 02/27/20 06:50 Hypochromasia 1+ 02/26/20 06:30 Poikilocytosis 1+ 02/27/20 06:50 Anisocytosis 2+ 02/27/20 06:50 Tear Drop Cells SLIGHT 02/27/20 06:50 Ovalocytes SLIGHT 02/27/20 06:50 Stomatocytes 1+ 02/24/20 06:45 PT 15.5 SEC (11.4-15.4) H 02/18/20 10:15 INR 1.21 02/18/20 10:15 INR (Anticoag Therapy) Cancelled 02/06/20 06:10 D-Dimer 5.25 ug/mL (0.00-0.50) H 02/20/20 06:51 Sodium 140.1 mmol/L (137-145) 02/27/20 06:50 Potassium 4.5 mmol/L (3.6-5.0) 02/27/20 06:50 Chloride 102 mmol/L (98-107) 02/27/20 06:50 Carbon Dioxide 26 mmol/L (22-30) 02/27/20 06:50 Anion Gap 12 (5-19) 02/27/20 06:50 BUN 25 mg/dL (7-20) H 02/27/20 06:50 Creatinine 1.18 mg/dL (0.52-1.25) 02/27/20 06:50 Est GFR ( Amer) > 60 (>60) 02/27/20 06:50 Est GFR (MDRD) Non-Af 52 (>60) L 02/27/20 06:50 Glucose 112 mg/dL (75-110) H 02/27/20 06:50 POC Glucose 106 mg/dL (70-110) 02/27/20 11:16 Lactic Acid 2.1 mmol/L (0.7-2.1) 01/22/20 13:43 Calcium 8.9 mg/dL (8.4-10.2) 02/27/20 06:50 Magnesium 2.0 mg/dL (1.6-2.3) 02/27/20 06:50 Ferritin 119.00 ng/mL (6.2-137.0) 01/21/20 22:05 Total Bilirubin 0.9 mg/dL (0.2-1.3) 02/27/20 06:50 Direct Bilirubin 0.6 mg/dL (0.0-0.4) H 02/27/20 06:50 Neonat Total Bilirubin Not Reportable 02/27/20 06:50 Neonat Direct Bilirubin Not Reportable 02/27/20 06:50 Neonat Indirect Bili Not Reportable 02/27/20 06:50 AST 62 U/L (14-36) H 02/27/20 06:50 ALT 56 U/L (<35) H 02/27/20 06:50 Alkaline Phosphatase 178 U/L (38-126) H 02/27/20 06:50 Lactate Dehydrogenase 299 U/L (120-246) H 02/07/20 08:14 Creatine Kinase 30 U/L (30-135) 01/26/20 05:33 Total Protein 6.6 g/dL (6.3-8.2) 02/27/20 06:50 Albumin 3.1 g/dL (3.5-5.0) L 02/27/20 06:50 Lipase 64.6 U/L (23-300) 01/21/20 22:05 Urine Color YELLOW 01/22/20 19:17 Urine Appearance SLIGHTLY-CLOUDY 01/22/20 19:17 Urine pH 6.0 (5.0-9.0) 01/22/20 19:17 Ur Specific Jordan 1.042 01/22/20 19:17 Urine Protein 100 mg/dL (NEGATIVE) H 01/22/20 19:17 Urine Glucose (UA) >=500 mg/dL (NEGATIVE) H 01/22/20 19:17 Urine Ketones NEGATIVE mg/dL (NEGATIVE) 01/22/20 19:17 Urine Blood LARGE (NEGATIVE) H 01/22/20 19:17 Urine Nitrite (Reflex) NEGATIVE (NEGATIVE) 01/22/20 19:17 Urine Bilirubin NEGATIVE (NEGATIVE) 01/22/20 19:17 Urine Urobilinogen NEGATIVE mg/dL (<2.0) 01/22/20 19:17 Leukocyte Esterase Rfl NEGATIVE (NEGATIVE) 01/22/20 19:17 Urine RBC (Auto) >182 /HPF 01/22/20 19:17 Squamous Epi Cells Auto 2 /HPF 01/22/20 19:17 Urine Ascorbic Acid 40 (NEGATIVE) H 01/22/20 19:17 Urine HCG, Qual NEGATIVE (NEGATIVE) 01/22/20 03:27 Fluid Glucose 111 mg/dL (.) 02/18/20 14:00 Fluid Total Protein 3.6 g/dL (.) 02/18/20 14:00 Fluid Albumin 1.8 g/dL (Not Estab.) 02/18/20 14:00 Fluid LDH 154 IU/L (.) 02/18/20 14:00 Fluid LDH 246 IU/L (.) 02/18/20 14:00 COVID-19 Source Cancelled 01/22/20 01:30 COVID-19 (DREW) Cancelled 01/22/20 01:30 Influenza A (Rapid) NEGATIVE (NEGATIVE) 01/22/20 01:30 Influenza A (RT-PCR) NEGATIVE (NEGATIVE) 01/22/20 01:30 Influenza B (Rapid) NEGATIVE (NEGATIVE) 01/22/20 01:30 Influenza B (RT-PCR) NEGATIVE (NEGATIVE) 01/22/20 01:30 L.pneumophila S1-6 Abs <0.91 OD ratio (0.00-0.90) 01/23/20 06:41 Mycoplasma pneumon IgG 654 U/mL (0-99) H 01/23/20 06:41 Mycoplasma pneumon IgM <770 U/mL (0-769) 01/23/20 06:41 RSV (RT-PCR) NEGATIVE (NEGATIVE) 01/22/20 01:30 SARS-CoV-2 Rap RNA(RT-PCR) NEGATIVE (NEGATIVE) 01/22/20 01:30 AFB Smear NO ACID FAST BACILLI (NO AFB SEEN) 02/18/20 14:00 Blood Type O POSITIVE 02/23/20 09:14 Antibody Screen NEGATIVE 02/23/20 09:14 Crossmatch See Detail 02/23/20 09:14 Impressions: Abdomen/Pelvis CT 01/21/20 21:30 IMPRESSION: No acute process is seen within the abdomen or pelvis. There are stranding at the intra-abdominal wall which may represent evidence of cellulitis. Chest/Abdomen CTA 01/22/20 00:00 IMPRESSION: 1. No evidence of pulmonary embolus. 2. Scattered mosaic attenuation throughout the lungs possibly secondary to small airway disease or hypoventilatory change. 3. Trace left pleural effusion. Chest X-Ray 01/25/20 00:00 IMPRESSION: New right central venous catheter with tip at the right atrium. No pneumothorax. Mild pulmonary edema with increasing small left pleural effusion. Abdomen/Pelvis CT 01/27/20 16:30 IMPRESSION: Cannot exclude a 32 mm mass the lower pole the left kidney versus focal pyelonephritis. Left pleural effusion with associated atelectasis in the left lower lobe. Renal Ultrasound 01/28/20 00:00 IMPRESSION: Avascular approximately 3 cm mass off the inferior pole the left kidney. This most likely represents infectious or inflammatory process. Venous Doppler Study 01/31/20 15:23 IMPRESSION: No DVT in the bilateral lower extremities. PICC Line Insertion 02/04/20 00:00 IMPRESSION: SUCCESSFUL PLACEMENT OF A 5 FR DUAL LUMEN 44 CM PICC IN THE LEFT BASILIC VEIN. Abdomen/Pelvis CT 02/05/20 00:00 IMPRESSION: 1. Grossly stable appearance of the ill-defined area of hypoattenuation along the inferior left kidney. Again, findings may represent pyelonephritis, solid mass or renal infarct with the former favored. There are additional ill-defined areas of hypoattenuation involving the right renal cortex suggestive of pyelonephritis. Recommend correlation with urinalysis. 2. Stable linear area of hypoattenuation within the spleen, possibly infarct or post infectious/traumatic sequelae. 3. Morbid obesity with skin thickening along the pannus suggestive of panniculitis. 4. At least moderate left-sided pleural effusion, partially evaluated. Associated lower lobe atelectasis. Thoracentesis Ultrasound 02/06/20 00:00 IMPRESSION: SUCCESSFUL THORACENTESIS USING ULTRASOUND GUIDANCE. Chest X-Ray 02/06/20 15:39 IMPRESSION: No pneumothorax status post left thoracentesis. Chest X-Ray 02/06/20 17:39 IMPRESSION: Decreased left effusion. No pneumothorax. Chest X-Ray 02/07/20 00:00 IMPRESSION: 1. Persistent bibasilar airspace opacities, more confluent on the left than the right. Left pleural effusion. No definite pneumothorax. Venous Doppler Study 02/09/20 00:00 IMPRESSION: No evidence of DVT or SVT in the visualized veins of the right leg. Limited exam with nonvisualization of the mid/distal superficial femoral and p eroneal veins. Abdomen/Pelvis CT 02/13/20 00:00 IMPRESSION: 1. Large left pleural effusion with adjacent consolidation likely representing compressive atelectasis. Small right pleural effusion. 2. Scattered nodular opacities in the right lung are nonspecific in etiology and could be infectious. There is some interstitial opacities/septal thickening which could reflect pulmonary edema. 3. Exam is degraded due to patient body habitus. IMPRESSION: 1. Degraded examination due to patient body habitus. 2. Focal region of hypoattenuation in the inferomedial left kidney is similar in morphology, though may be slightly decreased in size from prior. 3. Slight decrease in size of region of hypoattenuation along the inferolateral spleen, possibly representing a subcapsular fluid collection. Chest CT 02/13/20 00:00 IMPRESSION: 1. Large left pleural effusion with adjacent consolidation likely representing compressive atelectasis. Small right pleural effusion. 2. Scattered nodular opacities in the right lung are nonspecific in etiology and could be infectious. There is some interstitial opacities/septal thickening which could reflect pulmonary edema. 3. Exam is degraded due to patient body habitus. IMPRESSION: 1. Degraded examination due to patient body habitus. 2. Focal region of hypoattenuation in the inferomedial left kidney is similar in morphology, though may be slightly decreased in size from prior. 3. Slight decrease in size of region of hypoattenuation along the inferolateral spleen, possibly representing a subcapsular fluid collection. WBC Scan Nuclear Medicine 02/17/20 00:00 IMPRESSION: NEGATIVE WHITE BLOOD CELL STUDY. NO ABNORMAL FOCAL AREAS OF UPTAKE. Thoracentesis Ultrasound 02/18/20 00:00 IMPRESSION: SUCCESSFUL THORACENTESIS USING ULTRASOUND GUIDANCE. Chest X-Ray 02/18/20 14:09 IMPRESSION: DECREASE IN THE LEFT PLEURAL EFFUSION FOLLOWING THORACENTESIS. NO PNEUMOTHORAX. AIRSPACE DISEASE IN THE RIGHT LUNG APPEARS TO HAVE WORSENED. Chest X-Ray 02/18/20 16:10 IMPRESSION: NO PNEUMOTHORAX ON THE IMAGE ACQUIRED 2 HOURS AFTER THORACENTESIS. NO CHANGE IN APPEARANCE OF THE CHEST. PICC Line Exchange 02/20/20 00:00 IMPRESSION: SUCCESSFUL OVER THE WIRE REPLACEMENT OF AN OLD PICC FOR A NEW ONE THAT IS 5 FR DUAL LUMEN 44 CM PICC IN THE LEFT ARM. Chest X-Ray 02/27/20 00:00 IMPRESSION: Borderline cardiomegaly. Cannot exclude mild pulmonary edema. Cannot exclude bilateral airspace disease in the lungs as described. Plan Time Spent: Greater than 30 Minutes Stroke Is this a Stroke Patient?: No Acute Heart Failure Is this a Heart Failure Patient?: No
[2020-02-27] MEDS: ONDANSETRON HCL INJ/PF 4 MG/2 ML SDV IV PRN (18:57)
[2020-02-27] MEDS: SENNOSIDES/DOCUSATE 8.6-50 MG 1 EACH TABLET PO SCH (21:49)
[2020-02-27] MEDS: PRAZOSIN HCL 1 MG PO SCH (21:54)
[2020-02-27] MEDS: INSULIN GLARGINE,HUM.REC.ANLOG 1,000 UNIT/10 ML VIAL SUBCUT SCH (22:11)
[2020-02-27] MEDS ORDERED: BENZOCAINE/MENTHOL SORE THROAT LOZENGE BUCCAL PRN (22:42)
[2020-02-28] MEDS: OXYCODONE HCL IR 5 MG TABLET PO PRN ×3 (00:33→17:27)
[2020-02-28] MEDS: AMPICILLIN SODIUM 2 GM in NORMAL SALINE 100 ML IV SCH ×6 (03:00→21:49)
[2020-02-28] MEDS: PANTOPRAZOLE SODIUM 40 MG TABLET.DR PO SCH (06:15)
[2020-02-28] MEDS: HYDROXYZINE PAMOATE 50 MG CAPSULE PO SCH ×6 (06:15→21:46)
[2020-02-28] MEDS: INSULIN LISPRO 100 UNIT/ML 3 ML VIAL SUBCUT SCH ×4 (08:55→21:47)
[2020-02-28] MEDS: ACETAMINOPHEN 325 MG TABLET PO SCH ×3 (09:01→17:12)
[2020-02-28] MEDS: SERTRALINE HCL 50 MG TABLET PO SCH (09:03)
[2020-02-28] MEDS: ASCORBIC ACID 500 MG TABLET PO SCH ×2 (09:03→17:26)
[2020-02-28] MEDS: ZINC SULFATE 220 MG CAPSULE PO SCH (09:03)
[2020-02-28] MEDS: CEFTRIAXONE 2 GM/D5W RTU 2 GM/50 ML RTUPB IV SCH ×2 (09:03→21:49)
[2020-02-28] MEDS: ENOXAPARIN SODIUM INJ 40 MG/0.4 ML DISP.SYRIN SUBCUT SCH (09:03)
[2020-02-28] MEDS: CHOLECALCIFEROL (D3) 1,000 UNIT (25 MCG) TABLET PO SCH (09:03)
[2020-02-28] MEDS: FUROSEMIDE INJ/PF 40 MG/4 ML SDV IV SCH ×2 (09:03→21:48)
[2020-02-28] MEDS: GABAPENTIN 300 MG CAPSULE PO SCH ×3 (09:03→17:26)
[2020-02-28] MEDS: FLUTICASONE/VILANTEROL 200-25 MCG/DOSE IH SCH (09:03)
[2020-02-28] MEDS: NORMAL SALINE 10 ML SDV (SCHEDULED) IV SCH ×2 (09:04→21:48)
--- NOTE | 2020-02-28 11:57 | PDOC PROGRESS REPORT ---
Subjective Date:: 02/28/20 Subjective:: 34 year old female with history of morbid obesity, FROYLAN, asthma, diabetes mellitu s, hypertension, anxiety and depression, who presents to the hospital with complaints of diffuse abdominal pain. The pain started 1 day ago. She describes it as aching pain which lasts several minutes. States it occurs every 15 minutes. Feels like a cramping sensation. Denies prior episodes. No notable aggravating or alleviating factors. Denies any relationship with food consumption. Admits to nausea but no vomiting. Denies any vaginal discharge. Denies any urinary symptoms.. Last sexual activity was in 2015. Preceding onset of this symptoms, she states she ate out on Monday. Subsequently became constipated and took a laxative. After that she had a few episodes of diarrhea on Monday and Monday. Pain started on Monday. In the ER, patient received work-up with CT abdomen pelvis without contrast. This incidentally picked up groundglass opacities in patient's lower lungs. Patient also noted to have hypoxia at 90% on room air. She has chronic issues with her breathing and often gets short of breath but is also quite overweight. She has not noted any recent worsening of her breathing. Noted to be febrile in the ER as well. Interval history: 01/23/2020: Patient was seen and examined. She still with high white count. No fever. Complains of abdominal wall pain. 01/24/2020: Patient was seen and examined. White count is improving. No fever. Complains of abdominal wall pain. 01/25/2020: Patient was seen and examined. White count is improving. Afebrile. Improving overall. Repeat cultures still positive for Enterococcus. 01/26/2020: Patient was seen and examined. Had low-grade fever of 100.6 last night. Stable on 4 L of nasal cannula oxygen." 01/27/2020 Still unclear where the source of the patient's infection might be. Per ID, they suspect intra-abdominal source such as the bowel or tract. We will repeat a CT abdomen and this time and on the pelvis as well. This will be done with IV and oral contrast to look for any potential abscesses could have formed along her bowel. She still having vaginal bleeding and states that sometimes she bleeds for an entire month. She does not follow with a sandwich and drink cart operator regularly as she does not have insurance. Patient states she feels okay today. MATTHEW is being arranged reportedly. Daptomycin continues. Lower WBC and lower hemoglobin down to 8. Latest blood culture is also positive for Enterococcus, same organism as the previous cultures per micro lab. 01/28/2020 CT abdomen/pelvis with contrast showed possible left renal mass and I have ordered a renal ultrasound to get a closer look at this. Renal ultrasound showed this is likely an abscess rather than a solid tumor. We will need urol ogy opinion and I will give them a call to see if they would like the patient transferred for intervention or if IR would be able to drain this here. Patient remains afebrile. Blood cultures 1/2 growing MRSA. Patient believes the suspected abscess in her left kidney may be the source of her left upper quadrant and left flank pain. 01/29/2020 I called [facility] and spoke with the urologist on staff there and then he called their interventional radiologist had a lengthy discussion about the p atient's imaging studies and how this should be addressed. They believe the patient's renal lesion is likely a phlegmon which may turn into an abscess in the near future. They recommended against attempting to drain this lesion until it becomes an actual liquid abscess. They also noted a lesion in the patient's spleen consistent with septic emboli and similar to the kidney lesion. I believe the patient has showered her organ systems with septic emboli likely from a central source, suspected to be infected endocarditis. MATTHEW was not able to be done as mentioned previously and this will need to be repeated in the near future. We will repeat blood cultures today and if these remain negative we may explore transfer to a CT surgery facility once we can confirm a valvular vegetation on MATTHEW. Patient has no new complaints today. I examined her buttock regions and did not see any open wounds that could be a source for MRSA infection. The patient had mentioned previously having some irritation and possibly an open wound in that area. 01/30/2020 Most recent set of results of blood cultures on 01/26 have now resulted as 1/2 bottles contaminated with coag negative staph, otherwise blood cultures are negative. Patient is continued on daptomycin. Blood cultures drawn yesterday are still pending. Patient states she feels slightly better. Dr. Kimbrough is planning to repeat MATTHEW attempt next week. This is certainly indicated given that she probably has a central source of bloodstream infection showering multiple organs, most likely infected endocarditis. Possible she seeded her he art valves from a skin infection became bacteremia. 01/31/2020 Blood cultures are growing staph species in 1/2 bottles, suspect this may be a contaminant. Patient is having a bit more pain in her left flank and abdomen likely due to the septic emboli in her kidney. She has been using morphine ove rnight and explained to her that this will not provide lasting pain relief and she should use the Percocet instead and reserve the morphine for breakthrough pain. I also discussed this with the nurse. I have ordered a MATTHEW to be done on Monday assuming Dr. Kimbrough is available for this. I noted she had a positive mycoplasma IgG antibody earlier in the admission she was appropriately treated with a course of azithromycin. Her blood cultures have not grown mycoplasma and this may be simply antibodies from an exposure in the past other than an active infection. D-dimer is higher. We will check PVL BLE to rule out DVT. There is no PE on a recent CTPA. 02/01/2020 Most recent 1/2 blood cultures still growing coag negative staph highly likely a contaminant. If this is the case, patient is to consecutive negative blood culture results from different days. We could say blood is likely cleared of infection as of 01/26. We continue to plan for MATTHEW hopefully on Monday. Order has been placed but the timing of the procedure will be entirely up to Dr. Kimbrough's availability. Patient likely has obesity hypoventilation syndrome and we should not push her oxygen towards 100%. She will likely breathe and feel better overall at a lower O2 saturation around 92% or higher. She is at risk fo r CO2 retention we do not keep this in mind. 02/02/2020 Patient still having significant left upper quadrant pain likely due to developing splenic abscess. We will repeat a CT abdomen/pelvis with contrast in the next 48 hours to see if this has gone from being a phlegmon to a drainable abscess. Per my discussion with [facility] interventional radiology, they did not recommend attempting to drain any septic emboli unless it had clear evidence of being a liquid abscess. I have added gabapentin to help with the pain and we will continue Percocet and then also morphine for breakthrough pain. Other than that, patient has no new complaints. Will hopefully have MATTHEW done again in the next 48 hours. This is pending Dr. Kimbrough availability. 02/03/2020 Unable to get MATTHEW today due to anesthesia refusing to attempt this again here they stated patient's airway is extremely tenuous and they were barely able to safely intubate the patient previously. Dr. Kimbrough was also concerned after speaking with them that he would likely not have success on the second attempt either. He recommended treating the patient with 6 weeks of IV antibiotics for presumed infective endocarditis. It would be helpful if the patient lost a significant amount of weight over the next 6 weeks as this may assist with the difficult anatomy of her neck. Patient could potentially be discharged home if case management is able to arrange outpatient infusions. She will need a PICC line placed and to have her central line removed. I will place an order for this to be done tomorrow. Patient will need a physician to follow-up her care after she leaves if she continues on IV antibiotics. She will need periodic l abs over the next 6 weeks and someone to monitor these. 02/04/20 Patient was seen and examined at bedside. She is still complaining of left sided flank pain which is still likely from septic emboli to her left kidney. I have increased her percocet to q3 hrs and increased her morphine. She got a PICC line today for planned 6 weeks of abx. She is still currently requiring O2 support. Discharge planning still trying to work on setting up home infusion for dapto as well as home O2. Will repeat CT abdomen/pelvis to assess septic emboli to left kidney. 02/05/20 Patient was seen and examined at bedside. Still on her CPAP machine most of the time. Repeat blood culture drawn yesterday still growing Enterococcus. I have touched base with infectious disease regarding this and I was able to speak to Dr. Navarrete. She recommends to talk to the patient about her penicillin allergy possibly switch her over to ceftriaxone and ampicillin regimen since this is much better for Enterococcus. He also recommended to consult CT surgery for her splenic emboli and high suspicion for endocarditis. With her BMI I doubt that he will she will qualify for any surgery but will try to reach out to a CT surg billie tomorrow. We will also ask her about her penicillin allergy. Repeat CT abdomen and pelvis showed grossly stable appearance of the ill-defined area of hypoattenuation along the inferior left kidney. Stable linear area of hypoattenuation within the spleen. Morbid obesity with skin thickening along the pannus suggestive of panniculitis. Moderate left-sided pleural effusion I have changed her pain medications to morphine IR 10 mg every 4 since she claims that she responds more to morphine rather than Percocet. I have stopped her Percocet and her IV morphine. 02/06/20 Patient was seen and examined at bedside. She reports that her pain seems to be much better with the morphine IR however she feels that she is more nauseous with it as well. I have decreased her morphine to 5 mg every 6. I also discussed with her the recent infectious disease recommendation regarding amoxicillin challenge. She stated that she had a reaction to amoxicillin when she was 14 years old when she got it for dental procedure when she developed tongue swelling however she did not report any shortness of breath, no rashes, did not need to go to the emergency room because of severe allergic reaction. Since this remote penicillin allergy happened more than 15 years ago we we have decided to go ahead with challenging her with amoxicillin 50 mg and then observe her for 20 minutes and then full dose 500 mg/h of amoxicillin and observe her for another hour after that. She did not experience any symptoms with the 50 mg of amoxicillin. If she passed a challenge I would likely switch her antibiotics to ceftriaxone, ampicillin to treat her persistent enterococcal bacteremia. 02/07/20 Patient was seen and examined at bedside. Overall feels ok, reports that her oxygen needs from the nasal cannula may be coming down since the removal of pleural effusion yesterday. she is so far tolerating the ceftriaxone/ampicillin regimen. Still reports nausea and headache with the oral morphine so will trial her on [place] instead. She shared that she had a dental procedures a few months ago which she thought might be the source of her Endocarditis since she did not receive any abx. Will plan to repeat her blood cultures in 48 hrs. 02/08/20 Patient was seen and examined at bedside. She denied any new complains, still with pain on left side. Her hgb was noted to be 6.7 but she denies any melena, hematemesis. She was given 1 unit PRBC. Otherwise she is doing about the same. Plan to repeat blood culture on monday.She was complaining of right lower leg pain. Venous doppler ordered to rule out DVT 02/09/20 Patient was seen and examined at bedside. No new complains, remained afebrile. No chest pain, no SOB, still with stable left sided pain. I talked to her about putting PT on consult and she said she would like to try and could come off the CPAP and be on nasal cannula. Repeat blood culture tomorrow morning. hgb 8.0 today. She received 1 unit of PRBC 02/10/20 Patient was seen and examined at bedside. No new complains. She will be assessed by physical therapy today. Repeat blood cultures were drawn today. She has been afebrile al throughout. I have discussed her case with CT surgery PA at [facility] Richard and he stated that they're ability to properly assess her is very limited because she does not have adequate imaging of her presumed endocarditis. She is on Day 4 of Ceftri/ampi regimen and repeat blood cultures were drawn today. 02/17/20 Care resumed today. Reviewed notes of last week. Her blood culture has been negative since 02/15/20. repeat Bcx 02/16/20 showed staph specie growth which she previously grew before and is suspected to be a contaminant. She is currently on D11 of ceftri/ampi. She is scheduled to undergo WBC scan today. repeat CT chest done showed large left pleural effusion. She had a previous thoracentesis 02/06/20 to drain the effusion she had on the same side. She has been afebrile and WBC is normal. 02/18/20 Patient was seen and examined at bedside. She is still on CPAP most of the time over her 5L of Nasal cannula. She underwent tagged WBC scan yesterday which was negative. She underwent repeat thoracentesis today to remove a left pleural effusion which has re accumulated since her last thoracentesis approx 10 days ago. Plan to repeat her blood culture tomorrow and if still growing staph epidermidis will likely need to pull out PICC line and replace it with another. 02/19/20 Patient was seen and examined at bedside. She reports that her breathing is much better after thoracentesis. Repeat blood cultures drawn today. She is otherwise stable. 02/20/20 Patient was seen and examined at bedside. No new complains, no acute events overnight. PICC line was replaced today. Latest blood culture 02/19/20 negative x 24 hrs. 02/21/20 Patient was seen and examined at bedside. Complaining of bloatedness. She had a bowel movement today. Otherwise no chest pain, no SOB. Afebrile, good appetite. 02/22/20 Patient was seen and examined at bedside. No acute events overnight. According to the nurse, she refused her lovenox injection and from previous observations she is rarely out of the chair. She is at a high risk for DVT and PE and I have told the patient that she needs to ambulate at least once a day. Antibiotics for endocarditis otherwise to continue. 02/23/20 Patient was seen and examined at bedside. No acute events overnight. Hgb noted to be 7.1 today, noactive bleeding I think this is 2/2 to her chronic medical c ondition and repeated blood draws. 1 Unit of PRBC ordered. Otherwise she denied any new chest pain, palpitations. importance of daily ambulation emphasized. 02/24/20 Patient was seen and examined at bedside. She was sitting on a recliner chair comfortable. Reports kervin cute event overnight. She received 1 unit of PRBC yesterday and repeat hgb was 8.2. She was noted to have mild leukocytosis today but she remains afebrile so this is likely reactive from the blood transfusion. 02/25/2020-morbidly obese female comfortably in the chair communicating well. Complaining of abdomen tightness. No other complaints. Plan is to continue IV antibiotic therapy. And is presently on ampicillin, ceftriaxone. Afebrile. 02/26/2020-morbidly obese female CPAP complaining of fluid buildup around her a bdomen and in the legs. Requesting Lasix. To start her Lasix 40 mg IV twice a day and she will be placed on fluid restriction 1500 cc/day. Patient is receiving IV antibiotic therapy for folliculitis. Last day of antibiotic therapy will be March 24. Presently on ampicillin and ceftriaxone. [id number]-old female morbidly obese female admitted for bacteremia. Receiving IV antibiotic therapy last dose of antibiotic will be March 24. Unable to do the echocardiogram because of the morbid obesity and patient is treated as if she has endocarditis. Complaining of fluid buildup requesting Lasix. Patient was started on IV Lasix this morning patient is requesting for chest x-ray. Urine output is not documented at this time. 02/[id number]-old female admitted with bacteremia. Enterococcus bacteremia and as she is getting treatment like as if she has endocarditis. Last dose of antibiotic therapy will be March 24. Patient is presently on ampicillin, IV Rocephin. Home health agency agreed to provide antibiotic therapy at home from Monday. Reason For Visit: HYPOXIA,FEVER Physical Exam Vital Signs: Temp Pulse Resp BP Pulse Ox 98.7 F 101 H 22 H 123/37 L 98 02/28/20 07:38 02/28/20 07:38 02/28/20 07:38 02/28/20 07:38 02/28/20 07:38 Intake & Output 02/27/20 02/28/20 02/29/20 06:59 06:59 06:59 Intake Total 1080 936 Output Total 0 Balance 1080 936 Weight 180.4 kg 180.4 kg General appearance: PRESENT: no acute distress, cooperative, morbidly obese Head exam: PRESENT: atraumatic Eye exam: PRESENT: PERRLA Mouth exam: PRESENT: moist, tongue midline Teeth exam: PRESENT: poor dentation Neck exam: ABSENT: carotid bruit, JVD, lymphadenopathy, thyromegaly Respiratory exam: PRESENT: decreased breath sounds Cardiovascular exam: PRESENT: RRR. ABSENT: diastolic murmur, rubs, systolic murmur GI/Abdominal exam: PRESENT: normal bowel sounds, soft. ABSENT: distended, guarding, mass, organolmegaly, rebound, tenderness Rectal exam: PRESENT: deferred Extremities exam: PRESENT: full ROM. ABSENT: calf tenderness, clubbing, pedal edema Neurological exam: PRESENT: alert, awake, oriented to person, oriented to place, oriented to time, oriented to situation, CN II-XII grossly intact. ABSENT: motor sensory deficit Psychiatric exam: PRESENT: appropriate affect, normal mood. ABSENT: homicidal ideation, suicidal ideation Results Laboratory Results: 02/27/20 06:50 02/27/20 06:50 01/25/20 01/26/20 16:00 05:33 Creatine Kinase < 20 L 30 Impressions: Chest/Abdomen CTA 01/22/20 00:00 IMPRESSION: 1. No evidence of pulmonary embolus. 2. Scattered mosaic attenuation throughout the lungs possibly secondary to small airway disease or hypoventilatory change. 3. Trace left pleural effusion. Renal Ultrasound 01/28/20 00:00 IMPRESSION: Avascular approximately 3 cm mass off the inferior pole the left kidney. This most likely represents infectious or inflammatory process. PICC Line Insertion 02/04/20 00:00 IMPRESSION: SUCCESSFUL PLACEMENT OF A 5 FR DUAL LUMEN 44 CM PICC IN THE LEFT BASILIC VEIN. Venous Doppler Study 02/09/20 00:00 IMPRESSION: No evidence of DVT or SVT in the visualized veins of the right leg. Limited exam with nonvisualization of the mid/distal superficial femoral and peroneal veins. Abdomen/Pelvis CT 02/13/20 00:00 IMPRESSION: 1. Large left pleural effusion with adjacent consolidation likely representing compressive atelectasis. Small right pleural effusion. 2. Scattered nodular opacities in the right lung are nonspecific in etiology and could be infectious. There is some interstitial opacities/septal thickening which could reflect pulmonary edema. 3. Exam is degraded due to patient body habitus. IMPRESSION: 1. Degraded examination due to patient body habitus. 2. Focal region of hypoattenuation in the inferomedial left kidney is similar in morphology, though may be slightly decreased in size from prior. 3. Slight decrease in size of region of hypoattenuation along the inferolateral spleen, possibly representing a subcapsular fluid collection. Chest CT 02/13/20 00:00 IMPRESSION: 1. Large left pleural effusion with adjacent consolidation likely representing compressive atelectasis. Small right pleural effusion. 2. Scattered nodular opacities in the right lung are nonspecific in etiology and could be infectious. There is some interstitial opacities/septal thickening which could reflect pulmonary edema. 3. Exam is degraded due to patient body habitus. IMPRESSION: 1. Degraded examination due to patient body habitus. 2. Focal region of hypoattenuation in the inferomedial left kidney is similar in morphology, though may be slightly decreased in size from prior. 3. Slight decrease in size of region of hypoattenuation along the inferolateral spleen, possibly representing a subcapsular fluid collection. WBC Scan Nuclear Medicine 02/17/20 00:00 IMPRESSION: NEGATIVE WHITE BLOOD CELL STUDY. NO ABNORMAL FOCAL AREAS OF UPTAKE. Thoracentesis Ultrasound 02/18/20 00:00 IMPRESSION: SUCCESSFUL THORACENTESIS USING ULTRASOUND GUIDANCE. PICC Line Exchange 02/20/20 00:00 IMPRESSION: SUCCESSFUL OVER THE WIRE REPLACEMENT OF AN OLD PICC FOR A NEW ONE THAT IS 5 FR DUAL LUMEN 44 CM PICC IN THE LEFT ARM. Chest X-Ray 02/27/20 00:00 IMPRESSION: Borderline cardiomegaly. Cannot exclude mild pulmonary edema. Cannot exclude bilateral airspace disease in the lungs as described. Assessment and Plan - Diagnosis (1) Bacteremia due to Enterococcus Is this a current diagnosis for this admission?: Yes Plan: - CT abdomen/pelvis with contrast showed likely septic emboli to left kidney and spleen; discussed with urology and IR at [facility], will hold off on draining these unless they turn into an abscess rather than what appears to be phlegmon - cultures: Blood cultures 01/20+ for Enterococcus, 01/21+ for Enterococcus, 01/23+ for Enterococcus, 01/26 blood cultures growing coag negative staph contaminant in 1/2 bottles otherwise clear, 01/28 growing staph epidermidis - 02/03 blood culture again grew enterococcus and staph epidermidis - TTE 01/24/20 cannot exclude vegetation. LV systolic function is normal, EF 55 to 60%, mild MR, moderate AR. -negative blood culture 02/11/20. repeat Blood cx 02/16/20 grew staph specie which was thought to be a contaminant. If we start the 6 week count on her last negative blood culture, her last day of abx will be Mar 24, 2020 to complete 6 weeks of treatment -Patient passed amoxicillin challenge -I discussed her case with [facility] CT surgery department and I was able to speak to their PA Richard and unfortunately there is that their ability to help her is limited by the fact that she does not have adequate imaging to properly confirm endocarditis and assess valvular dysfunction. - on ceftri/ampi - PICC line replaced 02/20/20 02/24/2020-patient is going to receive antibiotics until March 24, 2020. Pres ently on ampicillin, ceftriaxone. Echocardiogram was done unable to get adequate imaging to rule out endocarditis. 02/26/2020-patient is receiving ampicillin, Rocephin for bacteremia. Last day of antibiotic therapy will be March 24. 02/27/20-plan is to continue ampicillin, Rocephin until March 24, 2020. 02/27/2019-patient is going home on Monday with IV ampicillin infusion 12 g every 24 hours, IV Rocephin 2 g daily and plan is to continue the antibiotic therapy until March 24. (2) Suspected endocarditis Is this a current diagnosis for this admission?: Yes Plan: - highly suspecting given enterococcal bacteremia, septic infarct to spleen and kidney - TTE done 01/23 showed increased velocity across the aortic valve moderate amount of aortic regurgitation cannot totally exclude vegetation. - MATTHEW was attempted twice but due to her body habitus anesthesia has found it very difficult to secure her airway - she received several days of dapto before being switched to ceftri/ampi on 02/16/20 after passing the amoxicillin challenge - Last negative blood culture for enterococcus was 02/11/20. - I have spoken to Richard MCFADDEN for [facility] CT surgery however they cannot give any recommendations since her MATTHEW has not been done therefore valve dysfunction is not completely evaluated. - ID on board - 6 weeks of abx to be completed March 24, 2019. She would need to follow up with CT surgery outpatient at a tertiary care center 02/25/2020-patient is on IV Rocephin, ampicillin of antibiotic therapy will be March 24. 02/27/2020-patient is getting treatment for suspected endocarditis. Receiving IV Rocephin, ampicillin. 02/27/2019-patient is getting IV ampicillin, IV Rocephin for suspected endocarditis. (3) Acute on chronic respiratory failure with hypoxemia Is this a current diagnosis for this admission?: Yes Plan: - still requiring O2 support, was not previously on o2 at home - COVID negative -CT showed moderate-sized pleural effusion on 02/05/20. repeat Ct chest showed reaccumulation of pleural fluid left -Status post thoracentesis 02/06/20 was able to remove approximately 800 mL of fluid sent for analysis. - s/p 2nd thoracentesis 02/18/20 drained 650 ml shiloh colored fluid, sent for analysis -1st Pleural fluid analysis culture and Gram stain negative - Awaiting 2nd Pleural fluid analysis - +ve lights criteria Exudative first Pleural fluid analysis. Likely from ongoing infection - continue CPAP PRN and at night (4) Pleural effusion due to bacterial infection Is this a current diagnosis for this admission?: Yes Plan: - had a previous thoracentesis 02/06/20 exudative by Lights criteria, cultures were negative. Cytology showed reactive cells, no malignancy - repeat CT chest showed that this has reaccumulated - s/p repeat thoracentesis 02/18/20. drained 650 ml shiloh fluid. Sent for analysis (5) FROYLAN on CPAP Is this a current diagnosis for this admission?: No Plan: nocturnal cpap. She mainly wears this because she is sleeping al throughout the day otherwise she feels she can do PT without it. (6) Normocytic anemia Is this a current diagnosis for this admission?: No Plan: - Hgb 6.7>8.0>7.7>7.1 post transfusion likely due to chronic medical condition on top of blood draws - I do not think she has any active bleeding - s/p 1 unit PRBC 02/08/20 - s/p 1 u PRBC 02/23/20 (7) Panniculitis Is this a current diagnosis for this admission?: Yes Plan: -Antibiotic switch from Dapto to ceftriaxone/ampicillin. (8) Morbid obesity with BMI of 70 and over, adult Is this a current diagnosis for this admission?: No Plan: - BMI over 70 - advised diet and lifestyle modification (9) Diabetes mellitus type 2 in obese Is this a current diagnosis for this admission?: No Plan: - continue SSI, hypoglycemia protocol and accucheck (10) Sepsis Qualifiers: Sepsis type: sepsis due to unspecified organism Sepsis acute organ dysfunction status: without acute organ dysfunction Qualified Code(s): A41.9 - Sepsis, unspecified organism Is this a current diagnosis for this admission?: Yes Plan: RESOLVED - Leukocytosis, febrile, hypoxic, tachycardic. 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 Unable to confirm due to failed MATTHEW attempts. Currently on ceftri/ampi until February. She would need to follow up at a tertiary care center for MATTHEW or possible cardiac MRI to assess valvular function and CT surgery evaluation. (1) Bacteremia due to Enterococcus Is this a current diagnosis for this admission?: Yes Plan: - CT abdomen/pelvis with contrast showed likely septic emboli to left kidney and spleen; discussed with urology and IR at [facility], will hold off on draining these unless they turn into an abscess rather than what appears to be phlegmon - cultures: Blood cultures 01/20+ for Enterococcus, 01/21+ for Enterococcus, 01/23+ for Enterococcus, 01/26 blood cultures growing coag negative staph contaminant in 1/2 bottles otherwise clear, 01/28 growing staph epidermidis - 02/03 blood culture again grew enterococcus and staph epidermidis - TTE 01/24/20 cannot exclude vegetation. LV systolic function is normal, EF 55 to 60%, mild MR, moderate AR. -negative blood culture 02/11/20. repeat Blood cx 02/16/20 grew staph specie which was thought to be a contaminant. If we start the 6 week count on her last negative blood culture, her last day of abx will be Mar 24, 2020 to complete 6 weeks of treatment -Patient passed amoxicillin challenge -I discussed her case with [facility] CT surgery department and I was able to speak to their PA Richard and unfortunately there is that their ability to help her is limited by the fact that she does not have adequate imaging to properly confirm endocarditis and assess valvular dysfunction. - on ceftri/ampi - PICC line replaced 02/20/20 02/24/2020-patient is going to receive antibiotics until March 24, 2020. Presently on ampicillin, ceftriaxone. Echocardiogram was done unable to get ad equate imaging to rule out endocarditis. 02/26/2020-patient is receiving ampicillin, Rocephin for bacteremia. Last day of antibiotic therapy will be March 24. 02/27/20-plan is to continue ampicillin, Rocephin until March 24, 2020. 02/27/2020-patient is going home today with ampicillin IV infusion 12 g daily until March 24. Patient is also going to receive IV Rocephin 2 g daily until March 24. Home health will provide IV infusions. Patient is agreeable to go home. Patient has a PICC line at this time. (2) Suspected endocarditis Is this a current diagnosis for this admission?: Yes Plan: - highly suspecting given enterococcal bacteremia, septic infarct to spleen and kidney - TTE done 01/23 showed increased velocity across the aortic valve moderate amount of aortic regurgitation cannot totally exclude vegetation. - MATTHEW was attempted twice but due to her body habitus anesthesia has found it very difficult to secure her airway - she received several days of dapto before being switched to ceftri/ampi on after passing the amoxicillin challenge - Last negative blood culture for enterococcus was 02/11/20. - I have spoken to Richard MCFADDEN for [facility] CT surgery however they cannot give any recommendations since her MATTHEW has not been done therefore valve dysfunction is not completely evaluated. - ID on board - 6 weeks of abx to be completed March 24, 2019. She would need to follow up with CT surgery outpatient at a tertiary care center 02/25/2020-patient is on IV Rocephin, ampicillin of antibiotic therapy will be March 24. 02/27/2020-patient is getting treatment for suspected endocarditis. Receiving IV Rocephin, ampicillin. 02/27/2020-patient will continue IV antibiotic therapy ampicillin, IV Rocephin until March 24 at home. (3) Acute on chronic respiratory failure with hypoxemia Is this a current diagnosis for this admission?: Yes Plan: - still requiring O2 support, was not previously on o2 at home - COVID negative -CT showed moderate-sized pleural effusion on 02/05/20. repeat Ct chest showed reaccumulation of pleural fluid left -Status post thoracentesis 02/06/20 was able to remove approximately 800 mL of fluid sent for analysis. - s/p 2nd thoracentesis 02/18/20 drained 650 ml shil[place] colored fluid, sent for analysis -1st Pleural fluid analysis culture and Gram stain negative - Awaiting 2nd Pleural fluid analysis - +ve lights criteria Exudative first Pleural fluid analysis. Likely from ongoing infection - continue CPAP PRN and at night 02/27/2020-patient is advised to continue CPAP on as needed basis during the daytime and on continuous basis during the night. (4) Pleural effusion due to bacterial infection Is this a current diagnosis for this admission?: Yes Plan: - had a previous thoracentesis 02/06/20 exudative by Lights criteria, cultures were negative. Cytology showed reactive cells, no malignancy - repeat CT chest showed that this has reaccumulated - s/p repeat thoracentesis 02/18/20. drained 650 ml shiloh fluid. Sent for analysis (5) FROYLAN on CPAP Is this a current diagnosis for this admission?: No Plan: nocturnal cpap. She mainly wears this because she is sleeping al throughout the day otherwise she feels she can do PT without it. (6) Normocytic anemia Is this a current diagnosis for this admission?: No Plan: - Hgb 6.7>8.0>7.7>7.1 post transfusion likely due to chronic medical condition on top of blood draws - I do not think she has any active bleeding - s/p 1 unit PRBC 02/08/20 - s/p 1 u PRBC 02/23/20 we have March 12. (7) Panniculitis Is this a current diagnosis for this admission?: Yes Plan: -Antibiotic switch from Dapto to ceftriaxone/ampicillin. 02/27/2020-patient is going home on IV ceftriaxone/ampicillin. (8) Morbid obesity with BMI of 70 and over, adult Is this a current diagnosis for this admission?: No Plan: - BMI over 70 - advised diet and lifestyle modification (9) Diabetes mellitus type 2 in obese Is this a current diagnosis for this admission?: No Plan: - continue SSI, hypoglycemia protocol and accucheck (10) Sepsis Qualifiers: Sepsis type: sepsis due to unspecified organism Sepsis acute organ dysfunction status: without acute organ dysfunction Qualified Code(s): A41.9 - Sepsis, unspecified organism Is this a current diagnosis for this admission?: Yes Plan: RESOLVED - Leukocytosis, febrile, hypoxic, tachycardic. - source likely endocarditis -Dapto switched to ceftriaxone/ampicillin started 02/06/20 - Time Anticipated Discharge Disposition: Home with Home Health Anticipated Discharge Timeframe: within 72 hours
[2020-02-28] MEDS: SENNOSIDES/DOCUSATE 8.6-50 MG 1 EACH TABLET PO SCH (21:46)
[2020-02-28] MEDS: INSULIN GLARGINE,HUM.REC.ANLOG 1,000 UNIT/10 ML VIAL SUBCUT SCH (21:46)
[2020-02-28] MEDS: PRAZOSIN HCL 1 MG PO SCH (22:03)
[2020-02-29] MEDS: AMPICILLIN SODIUM 2 GM in NORMAL SALINE 100 ML IV SCH ×6 (02:30→22:29)
[2020-02-29] MEDS: OXYCODONE HCL IR 5 MG TABLET PO PRN ×3 (03:45→20:05)
[2020-02-29] MEDS: HYDROXYZINE PAMOATE 50 MG CAPSULE PO SCH ×6 (05:36→22:28)
[2020-02-29] MEDS: PANTOPRAZOLE SODIUM 40 MG TABLET.DR PO SCH (05:37)
[2020-02-29] MEDS: INSULIN LISPRO 100 UNIT/ML 3 ML VIAL SUBCUT SCH ×4 (08:28→21:34)
[2020-02-29] MEDS: ACETAMINOPHEN 325 MG TABLET PO SCH ×3 (09:44→17:19)
[2020-02-29] MEDS: ASCORBIC ACID 500 MG TABLET PO SCH ×2 (09:51→17:24)
[2020-02-29] MEDS: CHOLECALCIFEROL (D3) 1,000 UNIT (25 MCG) TABLET PO SCH (09:51)
[2020-02-29] MEDS: SERTRALINE HCL 50 MG TABLET PO SCH (09:51)
[2020-02-29] MEDS: FUROSEMIDE INJ/PF 40 MG/4 ML SDV IV SCH ×2 (09:52→22:28)
[2020-02-29] MEDS: NORMAL SALINE 10 ML SDV (SCHEDULED) IV SCH ×2 (09:52→22:30)
[2020-02-29] MEDS: CEFTRIAXONE 2 GM/D5W RTU 2 GM/50 ML RTUPB IV SCH ×2 (09:52→23:13)
[2020-02-29] MEDS: ENOXAPARIN SODIUM INJ 40 MG/0.4 ML DISP.SYRIN SUBCUT SCH (09:52)
[2020-02-29] MEDS: GABAPENTIN 300 MG CAPSULE PO SCH ×3 (09:53→17:24)
[2020-02-29] MEDS: FLUTICASONE/VILANTEROL 200-25 MCG/DOSE IH SCH (09:53)
[2020-02-29] MEDS: ZINC SULFATE 220 MG CAPSULE PO SCH (12:10)
[2020-02-29] MEDS: SENNOSIDES/DOCUSATE 8.6-50 MG 1 EACH TABLET PO SCH (22:28)
[2020-02-29] MEDS: INSULIN GLARGINE,HUM.REC.ANLOG 1,000 UNIT/10 ML VIAL SUBCUT SCH (22:30)
[2020-02-29] MEDS: PRAZOSIN HCL 1 MG PO SCH (22:31)
[2020-03-01] MEDS: AMPICILLIN SODIUM 2 GM in NORMAL SALINE 100 ML IV SCH ×4 (01:12→15:21)
[2020-03-01] MEDS: HYDROXYZINE PAMOATE 50 MG CAPSULE PO SCH ×4 (05:41→13:06)
[2020-03-01] MEDS: PANTOPRAZOLE SODIUM 40 MG TABLET.DR PO SCH (05:41)
[2020-03-01] MEDS: OXYCODONE HCL IR 5 MG TABLET PO PRN (06:54)
[2020-03-01] MEDS: INSULIN LISPRO 100 UNIT/ML 3 ML VIAL SUBCUT SCH ×3 (07:52→17:54)
[2020-03-01] MEDS: SERTRALINE HCL 50 MG TABLET PO SCH (10:03)
[2020-03-01] MEDS: ACETAMINOPHEN 325 MG TABLET PO SCH ×2 (10:28→13:04)
[2020-03-01] MEDS: ZINC SULFATE 220 MG CAPSULE PO SCH (10:28)
[2020-03-01] MEDS: GABAPENTIN 300 MG CAPSULE PO SCH ×2 (10:28→13:05)
[2020-03-01] MEDS: ASCORBIC ACID 500 MG TABLET PO SCH (10:28)
[2020-03-01] MEDS: FLUTICASONE/VILANTEROL 200-25 MCG/DOSE IH SCH (10:29)
[2020-03-01] MEDS: CHOLECALCIFEROL (D3) 1,000 UNIT (25 MCG) TABLET PO SCH (10:29)
[2020-03-01] MEDS: ENOXAPARIN SODIUM INJ 40 MG/0.4 ML DISP.SYRIN SUBCUT SCH (10:30)
[2020-03-01] MEDS: FUROSEMIDE INJ/PF 40 MG/4 ML SDV IV SCH (10:30)
[2020-03-01] MEDS: CEFTRIAXONE 2 GM/D5W RTU 2 GM/50 ML RTUPB IV SCH (10:59)
[2020-03-01] MEDS: NORMAL SALINE 10 ML SDV (SCHEDULED) IV SCH (11:03)
--- NOTE | 2020-03-01 17:40 | Progress Note ---
Provider Note Provider Note: Her discharge was held up due to complications related to her home oxygen. Case management has been working very hard on her discharge, and were able to secure home oxygen for her. Her saturations at rest are greater than 90% on 4 L. The arrangements for her to have oxygen and transport is being arranged home for her this evening.
[2020-03-01 17:53] VITALS: BP 125/37
== END 2020-03-01 18:55 | disposition home health service (06) | DRG 871 ==
LOC: ER 19:52 → EH 01-22 01:09 → OBSVTOIN 01-22 01:55 → 4W 01-22 12:11 → 4N 01-22 20:20
PROVIDERS: ADMIT Internal Medicine; ATTEND Family Medicine
PROC: B24BZZZ Ultrasonography of Heart with Aorta (ICD-10-PCS; 2020-01-24)
PROC: 0WJ34ZZ Inspection of Oral Cavity and Throat, Percutaneous Endoscopic Approach (ICD-10-PCS; 2020-01-28)
PROC: 02HV33Z Insertion of Infusion Device into Superior Vena Cava, Percutaneous Approach (ICD-10-PCS; 2020-02-04)
PROC: B548ZZA Ultrasonography of Superior Vena Cava, Guidance (ICD-10-PCS; 2020-02-04)
PROC: 0W9B3ZX Drainage of Left Pleural Cavity, Percutaneous Approach, Diagnostic (ICD-10-PCS; principal; 2020-02-06)
PROC: 30233N1 Transfusion of Nonautologous Red Blood Cells into Peripheral Vein, Percutaneous Approach (ICD-10-PCS; 2020-02-08)
PROC: 0W9B3ZX Drainage of Left Pleural Cavity, Percutaneous Approach, Diagnostic (ICD-10-PCS; 2020-02-18)
DX: A41.81 Sepsis due to Enterococcus (principal); I33.0 Acute and subacute infective endocarditis; J96.21 Acute and chronic respiratory failure with hypoxia; L03.311 Cellulitis of abdominal wall; Z68.45 Body mass index [BMI] 70 or greater, adult; I76 Septic arterial embolism; J91.8 Pleural effusion in other conditions classified elsewhere; N28.0 Ischemia and infarction of kidney; I82.3 Embolism and thrombosis of renal vein; B95.2 Enterococcus as the cause of diseases classified elsewhere; D73.5 Infarction of spleen; E66.01 Morbid (severe) obesity due to excess calories; G47.33 Obstructive sleep apnea (adult) (pediatric); I10 Essential (primary) hypertension; F41.9 Anxiety disorder, unspecified; E11.65 Type 2 diabetes mellitus with hyperglycemia; M79.3 Panniculitis, unspecified; B37.2 Candidiasis of skin and nail; K59.00 Constipation, unspecified; K21.9 Gastro-esophageal reflux disease without esophagitis; F90.9 Attention-deficit hyperactivity disorder, unspecified type; F31.9 Bipolar disorder, unspecified; N92.1 Excessive and frequent menstruation with irregular cycle; D64.9 Anemia, unspecified; R79.1 Abnormal coagulation profile; J45.909 Unspecified asthma, uncomplicated; G89.29 Other chronic pain; Z20.822 Contact with and (suspected) exposure to COVID-19; Z83.3 Family history of diabetes mellitus; Z82.49 Family history of ischemic heart disease and other diseases of the circulatory system; Z79.899 Other long term (current) drug therapy; Z88.0 Allergy status to penicillin; Z88.8 Allergy status to other drugs, medicaments and biological substances; Z79.84 Long term (current) use of oral hypoglycemic drugs; I87.2 Venous insufficiency (chronic) (peripheral); Z59.7 Insufficient social insurance and welfare support; Z99.81 Dependence on supplemental oxygen
CPT/HCPCS: 01922; 32555; 36415; 36430; 36573; 36584; 71045; 71260; 71275; 74176; 74177; 76770; 78802; 80048; 80053; 81001; 81025; 82042; 82550; 82728; 82945; 82962; 83605; 83615; 83690; 83735; 84157; 85025; 85027; 85379; 85610; 86713; 86738; 86850; 86900; 86901; 86920; 87015; 87040; 87070; 87075; 87077; 87086; 87116; 87150; 87186; 87205; 87206; 87804; 88305; 88341; 88342; 93005; 93010; 93306; 93314; 93970; 93971; 94640; 96372; 96374; 99285; 0241U; A9569; C1769; C9803; J0290; J0330; J0456; J0500; J0696; J0878; J1170; J1642; J1644; J1650; J1815; J1940; J2020; J2270; J2405; J2550; J2704; J2765; J2930; J3010; J3490; J7030; J7050; J7613; P9016; S0028